=== PATIENT | female | born 1945 | race Caucasian/White ===

== ENCOUNTER 2016-08-30 00:55 | Inpatient (IN) | payer OTHER ==
[2016-08-30] VITALS (9 sets, daily range): BP systolic 148–223; BP diastolic 47–78; PULSE 67–88; TEMP 36.5–36.7; O2SAT 94–97; BMI 44.4
[~2016-08-30] VITALS: Ht 162.6 cm; Wt 122.2 kg
[~2016-08-30 00:55] MED LIST: AMLO10TA4 PO; APR50 PO; ASPI325T45 PO; CRG125 PO; FENO145T26 PO; FURO40TA3 PO; HYDR-5688 PO; MCRB100 PO; MISCCAP69 PO; SENN-65 PO; SERT50TA PO
[2016-08-30] MEDS ORDERED: SODIUM CHLORIDE 0.9% 1000ML 1,000 ML IV ONE ×2 (01:15→05:15)
[2016-08-30 01:37] LABS: BASO % 0.2 %; BASO ABS # 0.02 K/uL (0-0.2); COMPLETE YES; EOS % 1.5 %; HEMATOCRIT 35.2 % (37-47); IG% 0.4 %; LYMPH % 31.1 %; LYMPH ABS # 3.23 K/uL (1.2-3.4); MEAN CORPUSCULAR HEMOGLOBIN 29.4 pg (25-34); MEAN CORPUSCULAR HGB CONC 34.9 g/dl (32-36); MONO % 12.4 %; NEUT % 54.4 %; PLATELET COUNT 277 K/uL (130-400); RED BLOOD COUNT 4.19 M/uL (4.2-5.4)
[2016-08-30 01:45] LABS: INR 1.1 (0.9-1.1); PARTIAL THROMBOPLASTIN RATIO 0.9; PROTHROMBIN TIME (PATIENT) 11.9 SECONDS (9.0-12.0)
[2016-08-30 01:48] LABS: URINE APPEARANCE CLEAR (CLEAR); URINE BILIRUBIN NEG (NEG); URINE COLOR YELLOW; URINE NITRITE NEG (NEG); URINE SPECIFIC GRAVITY 1.008 (1.000-1.030); UROBILINOGEN NEG (NEG); ZZURINE CULT IF INDIC CATH YES
[2016-08-30 01:49] LABS: MANUAL MICROSCOPIC REQUIRED? NO; REVIEW REQ? NO
[2016-08-30 01:54] LABS: CALCIUM 11.7 mg/dl (8.5-10.1); MAGNESIUM 1.6 mg/dl (1.8-2.4); POTASSIUM 3.1 mmol/L (3.5-5.1)
[2016-08-30 01:59] LABS: ALB/GLOB RATIO 0.8 (0.9-2)
[2016-08-30] MEDS ORDERED: PIPERACILLIN/TAZOBACTAM 4.5 GM/100ML D5W IV STA (02:06)
[2016-08-30] MEDS ORDERED: DAPTOMYCIN IV SCH (02:15)
[2016-08-30] MEDS ORDERED: SODIUM CHLORIDE 0.9% IV SCH (02:15)
--- NOTE | 2016-08-30 02:20 | EMERGENCY ROOM VISIT NOTE ---
ED Visit Note First contact with patient: 00:59 I saw this patient in conjunction with Abe Jimenez PA-C. I agree with his decision-making and treatment plan.
[2016-08-30] MEDS ORDERED: POTASSIUM CHLORIDE 10 MEQ TABCR PO STA (02:41)
[2016-08-30] MEDS ORDERED: GLUCOSE 40% GEL 15 GM TUBE PO PRN (03:30)
[2016-08-30] MEDS ORDERED: NITROGLYCERIN 0.4 MG SL PER TAB CHARGE SL PRN (03:30)
[2016-08-30] MEDS ORDERED: GLUCOSE 10 TABS/TUBE PO PRN (03:30)
[2016-08-30] MEDS ORDERED: ACETAMINOPHEN 325 MG TAB PO PRN (03:30)
[2016-08-30] MEDS ORDERED: GLUCAGON FOR INJ 1 MG VIAL SQ PRN (03:30)
[2016-08-30] MEDS ORDERED: DEXTROSE 50% 50 ML SYR IV PRN (03:30)
[2016-08-30] MEDS ORDERED: HYDROmorphone INJ 1 MG/ML SYR IV PRN (03:30)
[2016-08-30] MEDS ORDERED: PIPERACILL/TAZOBAC CONSULT ACTIVE PRN (03:45)
[2016-08-30 04:00] LABS: BUN/CREATININE RATIO 15.8 (10-20); CALCIUM 11.8 mg/dl (8.5-10.1); CREATININE 1.9 mg/dl (0.60-1.20); POTASSIUM 3.1 mmol/L (3.5-5.1)
[2016-08-30 04:15] LABS: PHOSPHORUS 2.3 mg/dl (2.5-4.9); THYROID STIMULATING HORMONE 0.217 uIu/ml (0.300-4.500)
[2016-08-30] MEDS ORDERED: MAGNESIUM SULFATE 1GM / D5W 1 GM in PREMIXED IN D5W 100 ML IV STA (04:57)
[2016-08-30] MEDS: HEPARIN SOD 5000 UNIT/0.5 ML CARP SQ SCH ×3 (05:39→21:45)
[2016-08-30] MEDS ORDERED: POTASSIUM CHLORIDE 10 MEQ TABCR PO ONE (06:00)
[2016-08-30] MEDS ORDERED: INSULIN GLARGINE PER UNIT 5 UNITS in SYRINGE 0 ML SC ONE (06:14)
[2016-08-30] MEDS ORDERED: INSULIN GLARGINE SOLOSTAR 100 UNITS/ML 3 ML PEN SC STA (06:26)
[2016-08-30] MEDS ORDERED: CARVEDILOL 12.5 MG TAB PO ONE (06:47)
[2016-08-30] MEDS: CLONIDINE HCL 0.1 MG TAB PO SCH ×2 (06:48→21:33)
--- NOTE | 2016-08-30 07:47 | DIAGNOSTIC IMAGING REPORT ---
CT SCAN OF THE BRAIN WITHOUT IV CONTRAST CLINICAL HISTORY: Change in mental status. COMPARISON STUDY: CT of the brain dated 05/25/2015. TECHNIQUE: Unenhanced axial CT scan of the brain is performed from the vertex to the skull base. CT DOSE: 537.48 mGy.cm FINDINGS: Brain parenchyma: There are age-related involutional changes noting mild subcortical and periventricular microangiopathic change. There is no hemorrhage, mass effect, or evidence of acute territorial ischemia by CT criteria. Mineralization is noted in the basal ganglia. Palomares-white matter is preserved. No extra-axial fluid collection is seen. Ventricles, sulci, cisterns: Prominent secondary to involutional change. Intracranial vasculature: There is atherosclerotic calcification of the cavernous carotid arteries. Calvarium: Unremarkable. Sinuses and mastoids: The visualized paranasal sinuses are clear. There is trace fluid within the mastoid air cells. Orbits: The bony orbits are grossly intact. There are bilateral ocular lens implants. IMPRESSION: There is no hemorrhage, mass effect, or evidence of acute territorial ischemia by CT criteria. Electronically signed by: Scott Tello M.D. 08/30/2016 7:45 AM
[2016-08-30] MEDS ORDERED: HydrALAZINE HCL 20 MG/ML VIAL IV. ONE (08:15)
[2016-08-30] MEDS: INSULIN ASPART 100 UNITS/ML 3 ML PEN SC SCH ×4 (08:43→21:00)
--- NOTE | 2016-08-30 08:43 | DIAGNOSTIC IMAGING REPORT ---
SINGLE VIEW CHEST CLINICAL HISTORY: Sepsis. Confusion and lethargy. FINDINGS: An AP, portable, upright chest radiograph is compared to study dated 12/21/2015. The examination is degraded by portable technique and large body habitus. The heart is top normal for projection. There is atherosclerotic calcification of the thoracic aorta. Chronic residual thickening is unchanged. There are low lung volumes. Airspace opacities are present at both lung bases. No large pleural effusion Or pneumothorax is seen. The skeletal structures are osteopenic. The bony thorax is grossly intact. Degenerative change is noted throughout the thoracic spine and in the shoulders. Cholecystectomy clips are noted in the right upper quadrant. IMPRESSION: 1. Low lung volumes. 2. There are bibasilar airspace opacities. These are nonspecific and could represent atelectasis, aspiration pneumonitis, and/or developing pneumonia. Clinical correlation will be required. Electronically signed by: Scott Tello M.D. 08/30/2016 8:41 AM
[2016-08-30] MEDS: ASPIRIN 325 MG ECTAB PO SCH (08:45)
[2016-08-30] MEDS: PANTOprazole SOD 40 MG TAB PO SCH (08:46)
[2016-08-30] MEDS: SERTRALINE HCL 50 MG TAB PO SCH (08:46)
[2016-08-30] MEDS: PIPERACILL/TAZOBAC IV 4.5 GM in DEXTROSE 5% 100ML IV SCH ×3 (08:49→23:45)
[2016-08-30 09:00] LABS: BUN/CREATININE RATIO 16.4 (10-20); CREATININE 1.8 mg/dl (0.60-1.20); POTASSIUM 3.5 mmol/L (3.5-5.1)
[2016-08-30] MEDS ORDERED: CARVEDILOL 12.5 MG TAB PO SCH (09:00)
[2016-08-30] MEDS ORDERED: AMLODIPINE BESYLATE 5 MG TAB PO SCH (09:00)
--- NOTE | 2016-08-30 09:08 | HISTORY & PHYSICAL EXAMINATION ---
DATE OF ADMISSION: 08/30/2016 PRIMARY CARE PHYSICIAN: Dr. Marin. Hx obtained from px and records. CHIEF COMPLAINT: Sick as per px confusion as per family. HISTORY OF PRESENT ILLNESS: Medical history significant for hypertension, DM2, insulin requiring, CRI (baseline creatinine 1.7-1.9) history of ESBL, enterococcus E. coli, chronic anemia (baseline hemoglobin 10), mood/anxiety disorder, legal blindess as per records. Recent confinement 03/2016 for E.coli/enterococcus UTI. Patient completed Zosyn treatment as per ID recs. The last few days, the patient had not been feeling well, had a GI bug, symptoms improving. Patient noted by sister to be confused, not very responsive, poor appetite. Patient admits to having bladder discomfort, symptoms of a UTI. At the Emergency Room, sodium noted to be 124. NSS given. Patient received Zosyn for UTI. Patient's mentation much improved as per sister. MEDICAL HISTORY: As above. SURGERIES: Hysterectomy, cholecystectomy, hernia repair, section. HOME MEDICATIONS: Include Nexium, Flonase, Lasix, Tricor, gabapentin, Neurontin, Vicodin, Lantus, Humalog, Nitrostat, Crestor, Zoloft, Norvasc, aspirin, vitamin D3, Catapres, Klonopin. ALLERGIES: SUDAFED, LORATADINE, METFORMIN, STATIN, BIGUANIDES, SULFA. FAMILY HISTORY: Nye's chorea, heart disease, diabetes. PERSONAL AND SOCIAL HISTORY: Nonsmoker, no chronic intake of alcoholic beverages. Lives with sister. REVIEW OF SYSTEMS: As per HPI, all other ROS negative. PHYSICAL EXAMINATION: VITAL SIGNS: Blood pressure was noted to be 234/121, later 180/90, pulse rate 72, RR 14, temperature 36.7, sats 94 on room air. GENERAL: Noted to be obese, oriented to year, coherent. no respiratory distress. SKIN pallor HEENT: Pale palpebrae conjunctivae. Dry mucosa. NECK: Short neck. LUNGS: Decreased breath sounds. HEART: Regular rate and rhythm. ABDOMEN: Some distention, nontender. EXTREMITIES: Bilateral lower extremity edema no edema. NEUROLOGIC: Coherent but lethargic LABORATORIES: Hemoglobin was noted to be 12.3, white cells 10.4, platelets 277. Sodium noted to be 124, potassium 3.9, creatinine 2, glucose 206, calcium 11.7, troponin 0.18. CT head, no acute pathology. UA, small WBCs, positive hyaline cast noted. Chest x-ray, atelectasis. EKG rate 90, normal sinus rhythm, right axis deviation, incomplete right bundle branch block. ASSESSMENT: 1. Encephalopathy multifactorial : Hyponatremia, hypokalemia, hypercalcemia ARF on CRI secondary to clinical dehydration symptomatic urinary tract infection/cystitis. No sepsis. (hx Zosyn sensitive ESBL E coli/Enterococcus) - no sepsis. Hypertensive urgency secondary to illness, possible missed medications. home neuropsycho-tropic meds contributory 2. DM2, insulin requiring, well controlled as of recent outpx HgA1c. 3. Troponinemia, secondary to HTN urgency, kidney dysfunction px denies cp, sob No acute coronary syndrome. PLAN: PCU. Careful correction of sodium w/ gentle NSS hydration. Hyponatremia workup. appropriate to hold home diuretics for now. Nephrology consult, hyponatremia, hypercalcemia. replace K ff lytes ff urine CS, Zosyn for now facilitate home BP meds, ff trop ISS BG goal 140-180, appropriate to decrease basal lantus given poor appetite and kidney dysfunction for now px due for HgA1c recheck PT, OT eval. Full code. MTDD
[2016-08-30 11:21] LABS: BUN/CREATININE RATIO 14.9 (10-20); CALCIUM 10.7 mg/dl (8.5-10.1); CREATININE 1.8 mg/dl (0.60-1.20); POTASSIUM 3.6 mmol/L (3.5-5.1)
[2016-08-30] MEDS: SODIUM CHLORIDE 0.9% 1000ML 1,000 ML IV SCH ×2 (13:04→21:35)
[2016-08-30] MEDS ORDERED: AMLODIPINE BESYLATE 5 MG TAB PO ONE (13:15)
[2016-08-30 13:17] LABS: BUN/CREATININE RATIO 15.1 (10-20); CALCIUM 10.6 mg/dl (8.5-10.1); CREATININE 1.8 mg/dl (0.60-1.20); POTASSIUM 3.8 mmol/L (3.5-5.1)
--- NOTE | 2016-08-30 13:18 | Progress Note ---
Medicine Progress Note Date & Time of Visit: Aug 30, 2016 at 11:36. Subjective Pt is not complaining of pain or nausea Tolerating clear liquids Objective Last 8 Hrs Date Time Temp Pulse Resp B/P Pulse Ox O2 Delivery O2 Flow Rate FiO2 08/30/16 08:00 Room Air 08/30/16 07:28 36.5 88 12 187/75 97 Room Air 08/30/16 06:45 88 189/69 08/30/16 04:07 36.7 81 22 223/65 Room Air 08/30/16 04:00 36.7 76 35 184/130 95 Physical Exam: GEN: obese, does not appear distressed, appears fatigued, speaking lowly but wakes up and is alert and appropriate when prompted HEENT: NC/AT, PERRL, normal sclerae CARDIO: reg rate, S1/2 heard without m/g/r LUNGS: CTA bilaterally, no crackles, rales or wheezes, good diaphragmatic excursion ABD: soft, non-tender, non-distended, no rebound or guarding,BS-hypoactive EXTREMITY: RP and DP palpable 2+ bilat, no LE swelling or edema, extremities are warm and well-perfused NEURO: appears appropriate but is limited exam 2/2 excessive fatigue MUSC: generalized weakness, cannot assess for focal deficits 2/2 excessive fatigue SKIN: warm and dry Laboratory Results: Last 24 Hours Test 08/30/16 01:20 08/30/16 01:21 08/30/16 01:26 08/30/16 01:37 White Blood Count 10.40 K/uL Red Blood Count 4.19 M/uL Hemoglobin 12.3 g/dL Hematocrit 35.2 % Mean Corpuscular Volume 84.0 fL Mean Corpuscular Hemoglobin 29.4 pg Mean Corpuscular Hemoglobin Concent 34.9 g/dl Platelet Count 277 K/uL Mean Platelet Volume 10.0 fL Neutrophils (%) (Auto) 54.4 % Lymphocytes (%) (Auto) 31.1 % Monocytes (%) (Auto) 12.4 % Eosinophils (%) (Auto) 1.5 % Basophils (%) (Auto) 0.2 % Neutrophils # (Auto) 5.66 K/uL Lymphocytes # (Auto) 3.23 K/uL Monocytes # (Auto) 1.29 K/uL Eosinophils # (Auto) 0.16 K/uL Basophils # (Auto) 0.02 K/uL RDW Standard Deviation 39.9 fL RDW Coefficient of Variation 13.1 % Immature Granulocyte % (Auto) 0.4 % Immature Granulocyte # (Auto) 0.04 K/uL Prothrombin Time 11.9 SECONDS Prothromb Time International Ratio 1.1 Activated Partial Thromboplast Time 22.3 SECONDS Partial Thromboplastin Ratio 0.9 Sodium Level 124 mmol/L Potassium Level 3.1 mmol/L Chloride Level 78 mmol/L Carbon Dioxide Level 37 mmol/L Anion Gap 9.0 mmol/L Blood Urea Nitrogen 30 mg/dl Creatinine 2.00 mg/dl Est Creatinine Clear Calc Drug Dose 33.5 ml/min Estimated GFR () 28.4 Estimated GFR (Non- 24.5 BUN/Creatinine Ratio 15.0 Random Glucose 206 mg/dl Calcium Level 11.7 mg/dl Magnesium Level 1.6 mg/dl Total Bilirubin 0.8 mg/dl Aspartate Amino Transf (AST/SGOT) 60 U/L Alanine Aminotransferase (ALT/SGPT) 30 U/L Alkaline Phosphatase 47 U/L Total Creatine Kinase 171 U/L Creatine Kinase MB 6.9 ng/ml Creatine Kinase MB Ratio 4.0 Pro-B-Type Natriuretic Peptide 4628 pg/ml Total Protein 6.9 gm/dl Albumin 3.1 gm/dl Globulin 3.8 gm/dl Albumin/Globulin Ratio 0.8 Lipase 166 U/L Bedside Lactic Acid Venous 1.97 mmol/L Bedside Troponin I 0.180 ng/ml Urine Color YELLOW Urine Appearance CLEAR Urine pH 5.0 Urine Specific [place] 1.008 Urine Protein NEG Urine Glucose (UA) NEG Urine Ketones NEG Urine Occult Blood NEG Urine Nitrite NEG Urine Bilirubin NEG Urine Urobilinogen NEG Urine Leukocyte Esterase SMALL Urine WBC (Auto) 5-10 /hpf Urine RBC (Auto) 0-4 /hpf Urine Hyaline Casts (Auto) 1-5 /lpf Urine Epithelial Cells (Auto) 10-20 /lpf Urine Bacteria (Auto) 4+ Urine Osmolality 292 mOms/kg Urine Random Sodium 17 mEq/L Test 08/30/16 03:34 08/30/16 03:37 08/30/16 06:57 08/30/16 08:20 Sodium Level 124 mmol/L 127 mmol/L Potassium Level 3.1 mmol/L 3.5 mmol/L Chloride Level 79 mmol/L 83 mmol/L Carbon Dioxide Level 37 mmol/L 34 mmol/L Anion Gap 8.0 mmol/L 10.0 mmol/L Blood Urea Nitrogen 30 mg/dl 30 mg/dl Creatinine 1.90 mg/dl 1.80 mg/dl Est Creatinine Clear Calc Drug Dose 35.2 ml/min 36.1 ml/min Estimated GFR () 30.2 32.3 Estimated GFR (Non- 26.1 27.8 BUN/Creatinine Ratio 15.8 16.4 Random Glucose 218 mg/dl 211 mg/dl Osmolality 280 mOsm/kg Lactic Acid Level 1.6 mmol/L Calcium Level 11.8 mg/dl 11.0 mg/dl Phosphorus Level 2.3 mg/dl Troponin I 0.277 ng/ml 0.324 ng/ml Thyroid Stimulating Hormone (TSH) 0.217 uIu/ml Free Thyroxine 1.52 ng/dl Parathyroid Hormone (Intact) < 5.5 pg/mL Total Triiodothyronine 0.76 ng/ml Bedside Glucose 224 mg/dl Test 08/30/16 10:28 Sodium Level 127 mmol/L Potassium Level 3.6 mmol/L Chloride Level 85 mmol/L Carbon Dioxide Level 35 mmol/L Anion Gap 7.0 mmol/L Blood Urea Nitrogen 27 mg/dl Creatinine 1.80 mg/dl Est Creatinine Clear Calc Drug Dose 36.1 ml/min Estimated GFR () 32.3 Estimated GFR (Non- 27.8 BUN/Creatinine Ratio 14.9 Random Glucose 182 mg/dl Calcium Level 10.7 mg/dl Date/Time Source Procedure Growth Status 08/30/16 01:20 Blood Blood Culture Pending Received 08/30/16 01:15 Blood Blood Culture Pending Received 08/30/16 01:09 Stool C.difficile Toxin B Gene (PCR) Pending [facility] Batch 08/30/16 01:09 Stool Shiga Toxin Test Pending [facility] Batch 08/30/16 01:09 Stool Stool Culture Pending [facility] Batch 08/30/16 01:37 Urine,Catheterized Urine Culture Pending Received Assessment & Plan 1. Encephalopathy-improving with positive trend in lytes. Na to 130, K normal and Ca 10.1. Creat is still 1.8 but will cont IVF while PO intake is lower than normal symptomatic urinary tract infection/cystitis. No sepsis. (hx Zosyn sensitive ESBL E coli/Enterococcus) (at 1100): -continuing to trend sodium q2 this morning and up to 127 currently -CXR reveals some poss atelectasis versus pneumonia, however, she denes fevers, chills or cough recently 2. Hypercalcemia-improved with IVF 3. Hypotonic hypovolemic hyponatremia 2/2 recent GI losses and poor PO intake, cont to hold home Lasix and metolazone. Cont IVF 4. ARF 2/2 dehydration-already improving with IVF administration 5. UTI- covered with Zosyn for now; awaiting culture results. Pt is lethargic and history is difficult to get from her although when she does decide to answer she appears appropriate 6. DMII-ISS/Lantus 5 Units BID 7. Hypertroponemia likely 2/2 hypertensive heart disease vs kidney dysfunction in setting of elevated BP and severe dehydration-TTE pending. Pt is currently denying any symptoms of chest pain or shortness of breath. EKG reveals SR 75 8. HTN-gave home meds today, however, Norvasc dose is actually 10mg PO daily. Will give additional 5mg now and 10mg daily. Gave IV hydralazine 10 this morning without much change in pressure. Cont to monitor. Nutrition-clears (low salt, low sugar) for now and she is tolerating this Aspiration precautions DVT prophy-heparin 5K q8 PT, OT eval. Full code. Dispo-cont tele DO [facility] Current Inpatient Medications: Current Inpatient Medications Medications (Trade) Dose Ordered Sig/Hansel Route Start Time Stop Time Status Last Admin Dose Admin Heparin Sodium (Porcine) (Heparin Sq 5000 Unit/0.5ml) 5,000 unit Q8 SQ 08/30/16 06:00 09/29/16 05:59 08/30/16 05:39 5,000 UNIT Acetaminophen (Tylenol Tab) 650 mg Q4H PRN PO 08/30/16 03:30 09/29/16 03:29 Nitroglycerin (Nitrostat Tab) 0.4 mg UD PRN SL 08/30/16 03:30 09/29/16 03:29 Insulin Aspart (novoLOG ASPART) SLIDING SCALE If C... ACHS SC 08/30/16 07:00 08/30/16 11:31 1 UNITS Glucose (Glucose 40% Gel) 15-30 GRAMS 15 GRAMS... UD PRN PO 08/30/16 03:30 09/29/16 03:29 Glucose (Glucose Chew Tab) 4-8 Tablets 4 Tabl... UD PRN PO 08/30/16 03:30 09/29/16 03:29 Dextrose (Dextrose 50% 50ML Syringe) 25-50ML OF 50% DW IV FOR... UD PRN IV 08/30/16 03:30 09/29/16 03:29 Glucagon (Glucagon Inj) 1 mg UD PRN SQ 08/30/16 03:30 09/29/16 03:29 Hydromorphone HCl (Dilaudid Inj) 0.5 mg Q3H PRN IV 08/30/16 03:30 09/13/16 03:29 Ondansetron HCl (Zofran Inj) 4 mg Q6H PRN IV 08/30/16 03:30 09/29/16 03:29 Amlodipine Besylate (Norvasc Tab) 5 mg DAILY PO 08/30/16 09:00 09/29/16 08:59 08/30/16 08:45 5 MG Aspirin (Ecotrin Tab) 325 mg DAILY PO 08/30/16 09:00 09/29/16 08:59 08/30/16 08:45 325 MG Hydralazine HCl (Apresoline Tab) 50 mg TID PO 08/30/16 09:00 09/29/16 08:59 08/30/16 06:48 50 MG Sertraline HCl (Zoloft Tab) 50 mg DAILY PO 08/30/16 09:00 09/29/16 08:59 08/30/16 08:46 50 MG Pantoprazole Sodium (Protonix Tab) 40 mg DAILY PO 08/30/16 09:00 09/29/16 08:59 08/30/16 08:46 40 MG Miscellaneous Information (Order Awaiting Action) 1 ea QS N/A 08/30/16 08:00 09/29/16 07:59 Clonidine HCl (Catapres Tab) 0.2 mg BID PO 08/30/16 09:00 09/29/16 08:59 08/30/16 06:48 0.2 MG Piperacillin Sod/ Tazobactam Sod 1 ea 1 ea UD PRN N/A 08/30/16 03:45 09/29/16 03:44 Piperacillin Sod/ Tazobactam Sod/ Dextrose (Zosyn Iv/D5 100ml) 120 ml @ 30 mls/hr Q8H IV 08/30/16 07:30 09/09/16 07:29 08/30/16 08:49 30 MLS/HR Insulin Glargine (Lantus Solostar Pen) 5 unit BID SC 08/30/16 21:00 09/29/16 20:59 Carvedilol 12.5 mg 12.5 mg BID PO 08/30/16 21:00 09/29/16 20:59 Sodium Chloride (Nss 1000ml) 1,000 ml @ 100 mls/hr Q10H IV 08/30/16 11:30 09/29/16 11:29 UNV
--- NOTE | 2016-08-30 15:41 | NEPHROLOGY CONSULTATION ---
DATE OF CONSULTATION: 08/30/2016 REASON FOR CONSULT: Hyponatremia, hypercalcemia and acute renal failure. HISTORY OF PRESENT ILLNESS: The patient is a 71-year-old female who was brought to the hospital by her family because she looked sick, very weak and confused. For the last few days, the patient has not been feeling well. She had gastroenteritis and was having some nausea, poor appetite and some diarrhea. She was also having symptoms of urinary tract infection. In the Emergency Department workup, she was noted to have a serum sodium of 124 and a serum calcium of 11.8 and a creatinine of 2.0. At baseline, she has slightly abnormal creatinine of baseline around 1.7. Her troponin was also mildly elevated. She was presumed to have urinary tract infection. The culture report is not back yet, but the urinalysis does show possible urinary tract infection. Since admission, she has received normal saline at 100 mL per hour. With that, serum sodium has gone up from 124 to the most recent reading of 127. At home, the patient was getting Lasix, but I am not 100% certain about the dose she was getting. There is also mention in the chart that she was on metolazone; however, I could not confirm the dose of either diuretics. The patient is not able to give me any history at all at this time and there was no family member at the bedside. She was also taking Zoloft and vitamin D with calcium. ALLERGIES: SUDAFED, LORATADINE, METFORMIN, STATIN, BIGUANIDES AND SULFA. FAMILY HISTORY: Positive for Sania chorea, heart disease, diabetes. PERSONAL AND SOCIAL HISTORY: Nonsmoker, no alcohol. She lives with her sister. REVIEW OF SYSTEMS: Unable to obtain as the patient is not answering any questions. PHYSICAL EXAMINATION: GENERAL: She has her eyes closed during the entire examination. The patient does not appear to be in any respiratory distress, lying down flat in the bed. VITAL SIGNS: Blood pressure 174/51, 96% on room air, temperature 36.7, pulse rate 70 per minute. HEENT: Mucous membranes are moist. NECK: Supple and obese. LUNGS: Decreased breath sounds, but this is more because of lack of inspiratory effort. CARDIOVASCULAR: Regular rate and rhythm. Distant heart sounds. ABDOMEN: Soft, nontender, obese. EXTREMITIES: Shows bilateral lower extremity edema about 1+ but appears more related with obesity. NEUROLOGIC: She did not answer my questions. She had her eyes closed despite calling her by name multiple times. I did not exert any painful stimulus though. LABORATORY TESTS: Most recent blood work shows a serum sodium of 127, potassium 3.8, BUN 27, creatinine 1.8, calcium 10.6. At the time of admission, serum sodium was 124, serum osmolality was 280, calcium was 11.7, creatinine was 2.0. Urinalysis shows possible urinary tract infection. Urine osmolality was 292. Urine sodium 17. IMAGING DATA: X-ray of the chest shows low lung volumes, quality of the x-ray was very poor, essentially useless. CT head unremarkable. ASSESSMENT AND PLAN: A 71-year-old female admitted with encephalopathy of unclear etiology and I was consulted for hyponatremia, hypercalcemia and acute renal failure. 1. Acute renal failure. This appeared to be prerenal in etiology secondary to her recent gastrointestinal illness as well as urinary tract infection. She is getting better with the use of IV fluid. This essentially proved the etiology was prerenal and no further workup is needed from the renal standpoint. She does have baseline chronic kidney disease stage III to stage IV and her creatinine is now essentially back to baseline. 2. Hypercalcemia. She had a serum calcium of 11.8, but with just normal saline it is down to 10.6. She was taking calcium and vitamin D as an outpatient, which I would stop. Her PTH was very well suppressed and the level was less than 5, which again proves that she really should not be on vitamin D and calcium as an outpatient, as the hypercalcemia is significantly more harmful than slightly low vitamin D. 3. Hyponatremia. Serum sodium has gone up slightly from 124-127 with use of normal saline; however, it is not going further, the last 3 serum sodium is essentially the same at 127. Her blood pressure was high from the time of admission and it is still high. I am not sure that she is really that volume depleted. I would like to see a few more BMP readings. If her serum sodium does not go higher than 127, I would use saline as well as Lasix. For the time being, I would continue with the normal saline as is being done. She is getting normal saline at 100 mL per hour. Urine osmolality was 292, which is somewhat inappropriate in the setting of low serum sodium. It is quite possible that she has some combination of true hypovolemic hyponatremia with some component of syndrome of inappropriate antidiuretic hormone. For the time being, I would continue to hold the p.o. Lasix and metolazone. The rate of correction of serum sodium so far is appropriate. We are going to aim to correct at a rate of 8-10 mEq per day. MTDD
[2016-08-30 16:46] LABS: BUN/CREATININE RATIO 15.2 (10-20); CALCIUM 10.4 mg/dl (8.5-10.1); CREATININE 1.8 mg/dl (0.60-1.20); POTASSIUM 3.8 mmol/L (3.5-5.1)
[2016-08-30 20:30] LABS: BUN/CREATININE RATIO 16.2 (10-20); CALCIUM 10.1 mg/dl (8.5-10.1); CREATININE 1.8 mg/dl (0.60-1.20); POTASSIUM 3.7 mmol/L (3.5-5.1)
[2016-08-30] MEDS ORDERED: INSULIN GLARGINE PER UNIT 5 UNITS in SYRINGE 0 ML SC SCH (21:00)
[2016-08-30] MEDS: CARVEDILOL 12.5 MG TAB PO SCH (21:34)
[2016-08-30] MEDS: INSULIN GLARGINE SOLOSTAR 100 UNITS/ML 3 ML PEN SC SCH (21:34)
--- NOTE | 2016-08-30 21:51 | EMERGENCY ROOM VISIT NOTE ---
History First contact with patient: 00:59 Chief Complaint: CONFUSION Stated Complaint: HYPONATREMIA Nursing Triage Summary: ems report c/o confusion, lethargy, decreased appetite History of Present Illness The patient is a 71 year old female who presents to the Emergency Room for evaluation of confusion and lethargy. The patient is accompanied by her sister who is the primary historian. The patient has had a GI bug the past 3-4 days, and has not been eating well. The patient was able to have normal conversations yesterday, however today she is very abnormal for her. She believes her birthday was 1971. She is unsure where she lives. She is not able to answers questions well. The patient has a history of diabetes, hypertension, and multidrug resistant UTI. The patient herself does not have complaints, but again she is confused. Review of Systems More than 10 systems were reviewed and otherwise negative with the exception of history of present illness. Past Medical/Surgical History Medical Problems: (1) Adjustment disorder (2) GERD (gastroesophageal reflux disease) (3) HLD (hyperlipidemia) (4) Hypertension (5) Hypertensive heart disease (6) Hyponatremia (7) IBS (irritable bowel syndrome) (8) Insulin dependent diabetes mellitus (9) Morbid obesity (10) UTI (urinary tract infection) Surgical Problems: (1) H/O hernia repair (2) H/O: (3) H/O: hysterectomy (4) S/P cholecystectomy Family History Diabetes mellitus Social History Smoking Status: Never Smoker Alcohol Use: occasionally Drug Use: none Marital Status: Housing Status: lives alone Occupation Status: unemployed Current/Historical Medications Scheduled Amlodipine Besylate (Norvasc), 5 MG PO DAILY Aspirin (Aspirin), 325 MG PO DAILY Carvedilol (Carvedilol), 12.5 MG PO BID Cholecalciferol (Vitamin D), 1,000 INTER.UNIT PO DAILY Clonazepam (Klonopin), 1 MG PO HS Clonidine Hcl (Catapres), 0.2 MG PO BID Esomeprazole Magnesium (Nexium), 40 MG PO DAILY Fenofibrate (Tricor ), 145 MG PO DAILY Fluticasone Propionate (Nasal) (Flonase), 2 SPRAYS ANSELMO DAILY Gabapentin (Neurontin *), 600 MG PO Q12 Gabapentin (Neurontin), 300 MG PO midday Hydralazine HCl (Hydralazine HCl), 50 MG PO TID Insulin Glargine (Lantus Solostar Pen), 24 UNIT SQ HS Misc Natural Products (Lutein Vision Blend), 1 CAP PO DAILY Nitrofurantoin Monohyd Macrocr (Nitrofurantoin Monohydrat), 100 MG PO BID Rosuvastatin Calcium (Crestor *), 40 MG PO DAILY Sertraline (Zoloft), 1 TAB PO DAILY Scheduled PRN Antipyrine-Benzocaine (Antipyrine/Benzocaine), 2 DROPS OPR QID PRN for ear pain Furosemide (Lasix), 1 TAB PO for fluid Hydrocodone/Acetaminophen 5MG/325MG ([place] 5MG/325MG), 2 TABLETS PO BID PRN for Pain Nitroglycerin (Nitrostat), 0.4 MG UT UD PRN for Chest Pain Senna/Docusate Sod (Senokot S), 2 TAB PO HS PRN Miscellaneous Medications Insulin Lispro (Human) (Humalog Kwikpen) Allergies Coded Allergies: Metformin (Verified Allergy, Intermediate, causes kidney problems, 08/30/16) Biguanides (Verified Allergy, Unknown, UNSURE, 08/30/16) PATIENT UNSURE IF AN ALLERGY Loratadine (Verified Allergy, Unknown, unsure, 08/30/16) patient unsure if this is an allergy Pseudoephedrine (Unverified Allergy, Unknown, UNKNOWN, 08/30/16) UNSURE IF AN ALLERGY HMG-CoA-R Inhibitors (Verified Adverse Reaction, Mild, GI UPSET, 08/30/16) ? GI UPSET PER DR PATEL Sulfa Antibiotics (Verified Adverse Reaction, Unknown, NAUSEA, 08/30/16) Physical Exam Vital Signs Date Time Temp Pulse Resp B/P Pulse Ox O2 Delivery O2 Flow Rate FiO2 08/30/16 20:00 Room Air 08/30/16 19:14 36.7 73 20 148/78 95 Room Air 08/30/16 16:00 Room Air 08/30/16 15:35 36.7 67 16 169/52 94 Room Air 08/30/16 14:37 172/47 08/30/16 12:03 174/51 08/30/16 12:00 Room Air 08/30/16 11:42 36.7 70 12 174/59 96 Room Air 08/30/16 08:00 Room Air 08/30/16 07:28 36.5 88 12 187/75 97 Room Air 08/30/16 06:45 88 189/69 08/30/16 04:07 36.7 81 22 223/65 Room Air 08/30/16 04:00 36.7 76 35 184/130 95 08/30/16 03:35 76 35 95 08/30/16 03:30 79 14 95 08/30/16 03:29 184/130 08/30/16 03:25 78 13 94 08/30/16 03:20 79 16 97 08/30/16 03:15 75 13 96 08/30/16 03:10 77 20 96 08/30/16 03:05 79 18 98 08/30/16 03:00 68 16 95 08/30/16 02:59 158/56 08/30/16 02:55 68 16 94 08/30/16 02:50 69 22 96 08/30/16 02:45 69 17 91 08/30/16 02:40 71 31 95 08/30/16 02:35 71 25 95 08/30/16 02:33 73 16 151/96 95 Room Air 08/30/16 02:30 76 15 151/96 97 08/30/16 02:10 60 40 93 08/30/16 02:05 59 40 92 08/30/16 02:00 62 33 93 08/30/16 01:59 189/65 08/30/16 01:55 61 30 93 08/30/16 01:50 62 28 93 08/30/16 01:45 66 26 92 08/30/16 01:40 67 27 94 08/30/16 01:35 73 16 97 08/30/16 01:30 72 14 96 08/30/16 01:29 181/89 08/30/16 01:25 68 13 94 08/30/16 01:20 68 16 98 08/30/16 01:19 68 08/30/16 01:15 69 17 92 08/30/16 01:10 69 14 94 08/30/16 01:05 95 Room Air 08/30/16 01:05 36.7 69 16 214/70 96 Room Air 08/30/16 01:05 70 16 94 08/30/16 01:02 214/70 08/30/16 01:00 234/121 Pain Rating (0-10): 0 Physical Exam VITALS: Vitals are noted on the nurse's note and reviewed by myself. Vital signs with notable hypertension GENERAL: Confused appearing female who is pleasant and fairly cooperative. HEAD: Normocephalic atraumatic. HEART: Regular rate and rhythm without murmurs gallops or rubs. LUNGS: Clear to auscultation bilaterally without wheezes, rales or rhonchi. No retractions or accessory muscle use. ABDOMEN: Positive normal bowel sounds x 4. Soft, nontender, without masses or organomegaly. No guarding or rebound tenderness. MUSCULOSKELETAL: Diffuse upper and lower extremity edema which appears chronic. There is a small area of erythema over the right anterior tibia without obvious abscess. Patient is able to spontaneously move her extremities. NEURO: Patient was not alert. She appears confused, but pleasant. She has difficulty answering simple questions. Medical Decision & Procedures ER Provider Diagnostic Interpretation: CT SCAN OF THE BRAIN WITHOUT IV CONTRAST CLINICAL HISTORY: Change in mental status. COMPARISON STUDY: CT of the brain dated 05/25/2015. TECHNIQUE: Unenhanced axial CT scan of the brain is performed from the vertex to the skull base. CT DOSE: 537.48 mGy.cm FINDINGS: Brain parenchyma: There are age-related involutional changes noting mild subcortical and periventricular microangiopathic change. There is no hemorrhage, mass effect, or evidence of acute territorial ischemia by CT criteria. Mineralization is noted in the basal ganglia. [place]oma[place]-white matter is preserved. No extra-axial fluid collection is seen. Ventricles, sulci, cisterns: Prominent secondary to involutional change. Intracranial vasculature: There is atherosclerotic calcification of the cavernous carotid arteries. Calvarium: Unremarkable. Sinuses and mastoids: The visualized paranasal sinuses are clear. There is trace fluid within the mastoid air cells. Orbits: The bony orbits are grossly intact. There are bilateral ocular lens implants. IMPRESSION: There is no hemorrhage, mass effect, or evidence of acute territorial ischemia by CT criteria. SINGLE VIEW CHEST CLINICAL HISTORY: Sepsis. Confusion and lethargy. FINDINGS: An AP, portable, upright chest radiograph is compared to study dated 12/21/2015. The examination is degraded by portable technique and large body habitus. The heart is top normal for projection. There is atherosclerotic calcification of the thoracic aorta. Chronic residual thickening is unchanged. There are low lung volumes. Airspace opacities are present at both lung bases. No large pleural effusion Or pneumothorax is seen. The skeletal structures are osteopenic. The bony thorax is grossly intact. Degenerative change is noted throughout the thoracic spine and in the shoulders. Cholecystectomy clips are noted in the right upper quadrant. IMPRESSION: 1. Low lung volumes. 2. There are bibasilar airspace opacities. These are nonspecific and could represent atelectasis, aspiration pneumonitis, and/or developing pneumonia. Clinical correlation will be required. Laboratory Results 08/30/16 01:20 Red Blood Count 4.19, Mean Corpuscular Volume 84.0, Mean Corpuscular Hemoglobin 29.4, Mean Corpuscular Hemoglobin Concent 34.9, Mean Platelet Volume 10.0, Neutrophils (%) (Auto) 54.4, Lymphocytes (%) (Auto) 31.1, Monocytes (%) (Auto) 12.4, Eosinophils (%) (Auto) 1.5, Basophils (%) (Auto) 0.2, Neutrophils # (Auto ) 5.66, Lymphocytes # (Auto) 3.23, Monocytes # (Auto) 1.29, Eosinophils # (Auto ) 0.16, Basophils # (Auto) 0.02 08/30/16 20:00 Test 08/30/16 01:20 08/30/16 01:21 08/30/16 01:26 08/30/16 01:37 White Blood Count 10.40 K/uL (4.8-10.8) Red Blood Count 4.19 M/uL (4.2-5.4) Hemoglobin 12.3 g/dL (12.0-16.0) Hematocrit 35.2 % (37-47) Mean Corpuscular Volume 84.0 fL (80-100) Mean Corpuscular Hemoglobin 29.4 pg (25-34) Mean Corpuscular Hemoglobin Concent 34.9 g/dl (32-36) Platelet Count 277 K/uL (130-400) Mean Platelet Volume 10.0 fL (7.4-10.4) Neutrophils (%) (Auto) 54.4 % Lymphocytes (%) (Auto) 31.1 % Monocytes (%) (Auto) 12.4 % Eosinophils (%) (Auto) 1.5 % Basophils (%) (Auto) 0.2 % Neutrophils # (Auto) 5.66 K/uL (1.4-6.5) Lymphocytes # (Auto) 3.23 K/uL (1.2-3.4) Monocytes # (Auto) 1.29 K/uL (0.11-0.59) Eosinophils # (Auto) 0.16 K/uL (0-0.5) Basophils # (Auto) 0.02 K/uL (0-0.2) RDW Standard Deviation 39.9 fL (36.4-46.3) RDW Coefficient of Variation 13.1 % (11.5-14.5) Immature Granulocyte % (Auto) 0.4 % Immature Granulocyte # (Auto) 0.04 K/uL (0.00-0.02) Prothrombin Time 11.9 SECONDS (9.0-12.0) Prothromb Time International Ratio 1.1 (0.9-1.1) Activated Partial Thromboplast Time 22.3 SECONDS (21.0-31.0) Partial Thromboplastin Ratio 0.9 Magnesium Level 1.6 mg/dl (1.8-2.4) Total Bilirubin 0.8 mg/dl (0.2-1) Aspartate Amino Transf (AST/SGOT) 60 U/L (15-37) Alanine Aminotransferase (ALT/SGPT) 30 U/L (12-78) Alkaline Phosphatase 47 U/L (45-117) Total Creatine Kinase 171 U/L (26-192) Creatine Kinase MB 6.9 ng/ml (0.5-3.6) Creatine Kinase MB Ratio 4.0 (0-3.0) Pro-B-Type Natriuretic Peptide 4628 pg/ml (0-900) Total Protein 6.9 gm/dl (6.4-8.2) Albumin 3.1 gm/dl (3.4-5.0) Globulin 3.8 gm/dl (2.5-4.0) Albumin/Globulin Ratio 0.8 (0.9-2) Lipase 166 U/L (73-393) Bedside Lactic Acid Venous 1.97 mmol/L (0.90-1.70) Bedside Troponin I 0.180 ng/ml (0-0.045) Urine Color YELLOW Urine Appearance CLEAR (CLEAR) Urine pH 5.0 (4.5-7.5) Urine Specific [place] 1.008 (1.000-1.030) Urine Protein NEG (NEG) Urine Glucose (UA) NEG (NEG) Urine Ketones NEG (NEG) Urine Occult Blood NEG (NEG) Urine Nitrite NEG (NEG) Urine Bilirubin NEG (NEG) Urine Urobilinogen NEG (NEG) Urine Leukocyte Esterase SMALL (NEG) Urine WBC (Auto) 5-10 /hpf (0-5) Urine RBC (Auto) 0-4 /hpf (0-4) Urine Hyaline Casts (Auto) 1-5 /lpf (0-5) Urine Epithelial Cells (Auto) 10-20 /lpf (0-5) Urine Bacteria (Auto) 4+ (NEG) Urine Osmolality 292 mOms/kg (500-800) Urine Random Sodium 17 mEq/L Test 08/30/16 03:34 08/30/16 03:37 08/30/16 08:20 08/30/16 12:15 Osmolality 280 mOsm/kg (280-300) Lactic Acid Level 1.6 mmol/L (0.4-2.0) Phosphorus Level 2.3 mg/dl (2.5-4.9) Thyroid Stimulating Hormone (TSH) 0.217 uIu/ml (0.300-4.500) Free Thyroxine 1.52 ng/dl (0.80-1.60) Parathyroid Hormone (Intact) < 5.5 pg/mL (11.1-79.5) Total Triiodothyronine 0.76 ng/ml (0.60-1.81) Troponin I 0.324 ng/ml (0-0.045) Chemistry Specimen Hemolysis Test 08/30/16 20:00 08/30/16 20:35 Anion Gap 8.0 mmol/L (3-11) Est Creatinine Clear Calc Drug Dose 36.1 ml/min Estimated GFR () 32.3 Estimated GFR (Non- 27.8 BUN/Creatinine Ratio 16.2 (10-20) Calcium Level 10.1 mg/dl (8.5-10.1) Bedside Glucose 149 mg/dl (70-90) Medications Administered Medications (Trade) Dose Ordered Sig/Hansel Route Start Time Stop Time Status Last Admin Dose Admin Sodium Chloride (Nss 1000ml) 1,000 ml @ 333 mls/hr Q3H1M ONCE IV 08/30/16 01:15 08/30/16 04:15 DC 08/30/16 01:41 333 MLS/HR Piperacillin Sod/ Tazobactam Sod 4.5 gm 4.5 gm NOW STAT IV 08/30/16 02:06 08/30/16 02:07 DC 08/30/16 02:31 4.5 GM Daptomycin/Sodium Chloride (Cubicin IV/Nss 50ml) 64.8 ml @ 100 mls/hr NOW IV 08/30/16 02:15 08/30/16 06:50 DC 08/30/16 03:19 100 MLS/HR Potassium Chloride (Klor-Con M10) 40 meq NOW STAT PO 08/30/16 02:41 08/30/16 02:48 DC 08/30/16 03:42 40 MEQ Heparin Sodium (Porcine) (Heparin Sq 5000 Unit/0.5ml) 5,000 unit Q8 SQ 08/30/16 06:00 09/29/16 05:59 08/30/16 14:03 5,000 UNIT Insulin Aspart (novoLOG ASPART) SLIDING SCALE If C... ACHS SC 08/30/16 07:00 08/30/16 11:31 1 UNITS Amlodipine Besylate (Norvasc Tab) 5 mg DAILY PO 08/30/16 09:00 08/30/16 13:07 DC 08/30/16 08:45 5 MG Aspirin (Ecotrin Tab) 325 mg DAILY PO 08/30/16 09:00 09/29/16 08:59 08/30/16 08:45 325 MG Hydralazine HCl (Apresoline Tab) 50 mg TID PO 08/30/16 09:00 09/29/16 08:59 08/30/16 21:33 50 MG Sertraline HCl (Zoloft Tab) 50 mg DAILY PO 08/30/16 09:00 09/29/16 08:59 08/30/16 08:46 50 MG Pantoprazole Sodium (Protonix Tab) 40 mg DAILY PO 08/30/16 09:00 09/29/16 08:59 08/30/16 08:46 40 MG Clonidine HCl 0.2 mg 0.2 mg BID PO 08/30/16 09:00 09/29/16 08:59 08/30/16 21:33 0.2 MG Magnesium Sulfate/ Prmx (Magnesium Sulfate/Premixed D5W) 100 ml @ 100 mls/hr NOW STAT IV 08/30/16 04:57 08/30/16 05:56 DC 08/30/16 05:38 100 MLS/HR Potassium Chloride 40 meq 40 meq TODAY@0600 ONCE PO 08/30/16 06:00 08/30/16 06:01 DC 08/30/16 05:38 40 MEQ Piperacillin Sod/ Tazobactam Sod 4.5 gm/Dextrose 120 ml @ 30 mls/hr Q8H IV 08/30/16 07:30 09/09/16 07:29 08/30/16 15:32 30 MLS/HR Sodium Chloride (Nss 1000ml) 1,000 ml @ 75 mls/hr [id number] ONCE IV 08/30/16 05:15 08/30/16 11:31 DC 08/30/16 05:27 75 MLS/HR Insulin Glargine (Lantus Solostar Pen) 5 unit NOW STAT SC 08/30/16 06:26 08/30/16 06:27 DC 08/30/16 06:36 5 UNIT Insulin Glargine (Lantus Solostar Pen) 5 unit BID SC 08/30/16 21:00 09/29/16 20:59 08/30/16 21:34 5 UNIT Carvedilol (Coreg Tab) 12.5 mg BID PO 08/30/16 21:00 09/29/16 20:59 08/30/16 21:34 12.5 MG Carvedilol (Coreg Tab) 12.5 mg 0647 ONCE PO 08/30/16 06:47 08/30/16 06:50 DC 08/30/16 08:42 12.5 MG Hydralazine HCl 10 mg 10 mg ONE ONCE IV. 08/30/16 08:15 08/30/16 08:16 DC 08/30/16 08:55 10 MG Sodium Chloride (Nss 1000ml) 1,000 ml @ 100 mls/hr Q10H IV 08/30/16 11:30 09/29/16 11:29 08/30/16 21:35 100 MLS/HR Amlodipine Besylate (Norvasc Tab) 5 mg NOW ONCE PO 08/30/16 13:15 08/30/16 13:16 DC 1/1/17 13:49 5 MG ED Course Physical exam and history were performed. Nursing notes and EMR were reviewed. Patient appears to have altered mental status. She is pleasant and does have an elevated blood pressure. I have considerable concern for the patient as she does have a history of multidrug resistant UTI a few months ago. She is also significantly worse today according to her sister. IV access was established and labs were obtained. Cultures were gathered. Chest x-ray and CT scan of the head were performed. EKG was also performed and the patient was placed on a diagnostic cardiac sonographer. I discussed the case with my attending physician, Dr. Carr, who also independently evaluated the patient and remain closely involved in patient care. The patient's blood work is as above and was reviewed.she does not have a significantly elevated white blood cell count or gross anemia. The patient has an elevated troponin, as well as renal insufficiency. The patient's urine may represent infection, however this is difficult to ascertain. Her chest x-ray may show an early pneumonia. CT scan does not show evidence of stroke. She does have electrolyte imbalances including a low sodium. She has been hydrated with normal saline here in the department. Overall the patient does not appear stable for discharge home. There is concern for encephalopathy possible sepsis. Her troponin is also elevated which may be from hypertensive urgency and renal insufficiency, or possibly a cardiac event. The patient was started on daptomycin and Zosyn here in the department. The case was discussed with on-call [facility] hospitalist, who agreed to evaluate patient here in the emergency department. Please see their dictation for further patient course, plan, and disposition. The chart was completed utilizing [employer] Speech Voice Recognition Software. Grammatical errors, random word insertions, pronoun errors, and incomplete sentences are an occasional consequence of this system due to software limitations, ambient noise, and hardware issues. Any formal questions or concerns about the content, text, or information contained within the body of this dictation should be directly addressed to the provider for clarification. . Medical Decision Differential diagnosis: Etiologies such as metabolic, sepsis, infection, hypoglycemia, electrolyte abnormalities, cardiac sources, intracerebral event, toxicologic, neurologic, as well as others were entertained. Impression Primary Impression: Altered mental status Additional Impressions: Elevated troponin, Hyponatremia Departure Information Dispostion Still a Patient Condition FAIR Referrals Angela Marin M.D. (PCP) Forms WORK / SCHOOL INSTRUCTIONS, HOME CARE DOCUMENTATION FORM, IMPORTANT VISIT INFORMATION Patient Instructions A Signature Page, My [facility]
[2016-08-31] VITALS (7 sets, daily range): BP systolic 112–189; BP diastolic 43–58; PULSE 52–76; TEMP 36.3–37.1; O2SAT 94–98; Ht 162.6 cm; Wt 122.2 kg
[2016-08-31 00:28] LABS: BUN/CREATININE RATIO 15.9 (10-20); CALCIUM 9.7 mg/dl (8.5-10.1); CREATININE 1.8 mg/dl (0.60-1.20); POTASSIUM 3.6 mmol/L (3.5-5.1)
[2016-08-31] MEDS: HEPARIN SOD 5000 UNIT/0.5 ML CARP SQ SCH ×3 (06:36→20:52)
[2016-08-31 07:03] LABS: BASO % 0.2 %; BASO ABS # 0.02 K/uL (0-0.2); COMPLETE YES; EOS % 0.9 %; HEMATOCRIT 30.5 % (37-47); IG% 0.7 %; LYMPH ABS # 1.62 K/uL (1.2-3.4); MEAN CELL VOLUME 84.7 fL (80-100); MEAN CORPUSCULAR HEMOGLOBIN 29.2 pg (25-34); MEAN CORPUSCULAR HGB CONC 34.4 g/dl (32-36); MEAN PLATELET VOLUME 10.1 fL (7.4-10.4); NEUT % 70.2 %; PLATELET COUNT 248 K/uL (130-400); WHITE BLOOD COUNT 9.01 K/uL (4.8-10.8)
[2016-08-31] MEDS: CARVEDILOL 12.5 MG TAB PO SCH ×2 (07:33→20:44)
[2016-08-31] MEDS: CLONIDINE HCL 0.1 MG TAB PO SCH ×2 (07:33→21:02)
[2016-08-31] MEDS: SERTRALINE HCL 50 MG TAB PO SCH (07:33)
[2016-08-31] MEDS: PANTOprazole SOD 40 MG TAB PO SCH (07:34)
[2016-08-31] MEDS: ASPIRIN 325 MG ECTAB PO SCH (07:34)
[2016-08-31] MEDS: AMLODIPINE BESYLATE 5 MG TAB PO SCH (07:34)
[2016-08-31] MEDS: SODIUM CHLORIDE 0.9% 1000ML 1,000 ML IV SCH ×2 (07:36→17:33)
[2016-08-31] MEDS: PIPERACILL/TAZOBAC IV 4.5 GM in DEXTROSE 5% 100ML IV SCH ×2 (07:37→15:16)
[2016-08-31 07:39] LABS: BUN/CREATININE RATIO 16.2 (10-20); CALCIUM 9.8 mg/dl (8.5-10.1); CREATININE 1.8 mg/dl (0.60-1.20); MAGNESIUM 1.7 mg/dl (1.8-2.4); POTASSIUM 3.5 mmol/L (3.5-5.1)
[2016-08-31] MEDS: INSULIN ASPART 100 UNITS/ML 3 ML PEN SC SCH ×4 (07:40→20:51)
[2016-08-31] MEDS: INSULIN GLARGINE SOLOSTAR 100 UNITS/ML 3 ML PEN SC SCH ×2 (07:41→20:51)
[2016-08-31 07:42] LABS: ESTIMATED AVERAGE GLUCOSE 186 mg/dl; HA1C FLAG Normal (Normal)
--- NOTE | 2016-08-31 08:32 | ECHOCARDIOGRAM REPORT ---
*NOTICE TO RECEIVING DEMOCRAT AGENCY This information is strictly Confidential and protected under [place] law. [place] law prohibits you from making any further disclosure of this information unless further disclosure is expressly permitted by the written consent of the person to whom it pertains or is authorized by law. A general authorization for the release of medical or other information is not sufficient for this purpose. Hospital accepts no responsibility if the information is made available to any other person, INCLUDING THE PATIENT. Interpretation Summary * Name: DONNA CERNA Study Date: 08/30/2016 01:46 PM BP: 187/75 mmHg * Patient Location: [id number].[id number]\E206\S\1 HR: 88 * : 1945 (M/d/yyyy) Gender: Female Height: 64 in * Age: 71 yrs Ethnicity: CA Weight: 258 lb * Ordering Physician: Nallely Iyer * Referring Physician: Self, Referred * Performed By: Brandy Chirinos RDCS * * Reason For Study: Malignant Hyperension * BSA: 2.2 m2 * -- Conclusions -- * Normal LV chamber size with mild concentric LVH. * Normal LV systolic function, EF 60-65%. * No segmental left ventricular wall motion abnormalities are noted. * Grade I diastolic dysfunction. * Aortic valve sclerosis moderate, without significant aortic valvular stenosis. Mild aortic regurgitation. * There is moderate to severe mitral annular calcification.The mitral valve leaflets appear thickened, but open well. There is no mitral regurgitation noted. * There is no mitral valve stenosis. Procedure Details * A complete two-dimensional transthoracic echocardiogram was performed (2D, M-mode, Doppler and color flow Doppler). * The study was technically difficult. * The study was technically difficult, but visualization was adequate with the administration of Definity ultrasound contrast. * There were technical limitations due to patient'sbody habitus * A contrast injection of Definity was performed to improve assessment of LV function. * Contrast was injected into an intravenous site in the left arm. * One vial of Definity ultrasound contrast was diluted in normal saline to a total volume of 10 ml. A total of '2' ml of solution was administered during imaging. * Lot # [id number] of Definity utilized for procedure. * Expiration date . * The attending nurse who injected the contrast agent was Leonardo [place], RN. Left Ventricle * The left ventricle is normal in size. * There is mild concentric left ventricular hypertrophy. * Ejection Fraction = 60-65%. * Left ventricular systolic function is normal. * No segmental left ventricular wall motion abnormalities are noted. * The left ventricular wall motion is normal. Right Ventricle * The right ventricular cavity size is normal (basal dimension <4.2 cm in right ventricular apical 4-chamber view). * The right ventricular systolic function is normal as assessed by tricuspid annular plane systolic excursion (TAPSE) (normal >1.5 cm). Atria * The left atrial size is normal. * Right atrial size is normal. * No ASD detected; PFO is not assessed. Mitral Valve * There is moderate to severe mitral annular calcification. * The mitral valve leaflets appear thickened, but open well. * There is no mitral valve stenosis. * There is no mitral regurgitation noted. Tricuspid Valve * The tricuspid valve is normal in structure and function. Aortic Valve * The aortic valve is trileaflet. * Aortic valve sclerosis moderate, without significant aortic valvular stenosis. * Mild aortic regurgitation. Pulmonic Valve * The pulmonary valve is not well seen, but the Doppler examination is normal without significant regurgitation or stenosis. Great Vessels * The aortic root and proximal ascending aorta are normal sized. * Moderate atherosclerotic plaque(s) in the ascending aorta. Pericardium/Pleural * There is no pericardial effusion. Left Ventricular Diastolic Function * Grade I diastolic dysfunction, (abnormal relaxation pattern). MMode 2D Measurements and Calculations IVSd 1.1 cm IVSs 1.6 cm LVIDd 4.0 cm LVIDs 2.3 cm LVPWd 1.0 cm LVPWs 1.7 cm IVS/LVPW 1.1 FS 40.8 % EDV(Teich) 68.2 ml ESV(Teich) 18.9 ml EF(Teich) 72.2 % EDV(cubed) 61.9 ml ESV(cubed) 12.8 ml EF(cubed) 79.3 % % IVS thick 42.4 % % LVPW thick 60.4 % LV mass(C)d 139.5 grams LV mass(C)dI 64.0 grams/m\S\2 LV mass(C)s 136.6 grams LV mass(C)sI 62.7 grams/m\S\2 SV(Teich) 49.3 ml SI(Teich) 22.6 ml/m\S\2 SV(cubed) 49.1 ml SI(cubed) 22.5 ml/m\S\2 Ao root diam 2.4 cm Ao root area 4.5 cm\S\2 ACS 1.8 cm LA dimension 2.6 cm LA/Ao 1.1 LVAd ap4 21.2 cm\S\2 LVLd ap4 6.8 cm EDV(MOD-sp4) 55.0 ml EDV(sp4-el) 56.6 ml LVAs ap4 9.4 cm\S\2 LVLs ap4 5.5 cm ESV(MOD-sp4) 14.2 ml ESV(sp4-el) 13.7 ml EF(MOD-sp4) 74.2 % EF(sp4-el) 75.9 % LVAd ap2 23.5 cm\S\2 LVLd ap2 7.0 cm EDV(MOD-sp2) 68.9 ml EDV(sp2-el) 67.1 ml LVAs ap2 8.3 cm\S\2 LVLs ap2 5.7 cm ESV(MOD-sp2) 10.5 ml ESV(sp2-el) 10.4 ml EF(MOD-sp2) 84.7 % EF(sp2-el) 84.6 % LVLd %diff 3.0 % EDV(MOD-bp) 62.2 ml LVLs %diff 3.8 % ESV(MOD-bp) 12.6 ml EF(MOD-bp) 79.7 % SV(MOD-sp4) 40.8 ml SI(MOD-sp4) 18.7 ml/m\S\2 SV(MOD-sp2) 58.4 ml SI(MOD-sp2) 26.8 ml/m\S\2 SV(MOD-bp) 49.6 ml SI(MOD-bp) 22.8 ml/m\S\2 SV(sp4-el) 42.9 ml SI(sp4-el) 19.7 ml/m\S\2 SV(sp2-el) 56.8 ml SI(sp2-el) 26.0 ml/m\S\2 Doppler Measurements and Calculations MV E max fish 79.8 cm/sec MV A max fish 121.9 cm/sec MV E/A 0.65 MV dec time 0.46 sec Ao V2 max 161.8 cm/sec Ao max PG 10.5 mmHg Ao max PG (full) 4.2 mmHg LV V1 max PG 6.3 mmHg LV V1 max 125.1 cm/sec PA V2 max 123.3 cm/sec PA max PG 6.1 mmHg
[2016-08-31] MEDS: MAGNESIUM SULFATE 1GM / D5W 1 GM in PREMIXED IN D5W 100 ML IV SCH ×4 (08:58→12:17)
--- NOTE | 2016-08-31 13:43 | PROGRESS NOTE ---
DATE: 08/31/2016 NEPHROLOGY NOTE SUBJECTIVE: The patient did good overnight. She seems much more awake and alert, and actually I had a conversation with her today. She denies any pain, nausea, vomiting, chest pain, shortness of breath. OBJECTIVE: VITAL SIGNS: Blood pressure 112/43, 96% on room air, pulse rate 52, temperature 36.7. HEENT: Mucous membranes moist. NECK: Supple. No jugular venous distention. CHEST: Bilateral clear to auscultation, although very poor inspiratory effort. CARDIOVASCULAR: S1 and S2 are regular, distant heart sounds. ABDOMEN: Soft, nontender, obese. EXTREMITIES: Show bilateral 1+ lower extremity edema but appears more related with obesity. LABORATORY DATA: Most recent blood work from this morning shows a sodium of 131, potassium 3.5, BUN 29, creatinine 1.8, magnesium 1.7, calcium is 9.8, hemoglobin 10.5, platelet count 248. WBC count 9.01. ASSESSMENT AND PLAN: 1. Acute renal failure. This was prerenal in etiology secondary to her recent gastrointestinal illness as well as urinary tract infection. She is back to her baseline creatinine of around 1.8 with the use of IV fluids. No further workup is needed. 2. Hypercalcemia. She had a serum calcium of 11.8 with a suppressed parathyroid hormone. She was taking calcium and vitamin D as an outpatient, which I would stop. At this time with the use of fluid and stopping the calcium and vitamin D, she is having a normal calcium. 3. Hyponatremia. Serum sodium this morning is 131. The rate of correction of serum sodium has been appropriate. For now, I would continue with the normal saline as she still seems somewhat somnolent with poor appetite. She had a combination of syndrome of inappropriate antidiuretic hormone with true hypovolemic hyponatremia. The urine osmolality was 292, which is somewhat inappropriate in the setting of low serum sodium, but was not crazily high that we expect in syndrome of inappropriate antidiuretic hormone. Continue to hold the p.o. Lasix and metolazone. Continue normal saline. Check BMP every 6 hours. If the serum sodium drops from here, I would give 1 dose of IV Lasix but for now continue the same. MTDD
[2016-08-31 18:58] LABS: BUN/CREATININE RATIO 14.3 (10-20); CALCIUM 9.6 mg/dl (8.5-10.1); POTASSIUM 3.3 mmol/L (3.5-5.1)
[2016-08-31] MEDS: POTASSIUM CHLR 10 MEQ / WTR 10 MEQ in PREMIXED WATER 100 ML IV SCH ×2 (20:42→22:54)
[2016-08-31 23:04] LABS: CREATININE 1.9 mg/dl (0.60-1.20); POTASSIUM 3.2 mmol/L (3.5-5.1)
[2016-09-01] MEDS: POTASSIUM CHLR 10 MEQ / WTR 10 MEQ in PREMIXED WATER 100 ML IV SCH ×2 (00:12→01:41)
[2016-09-01] MEDS: PIPERACILL/TAZOBAC IV 4.5 GM in DEXTROSE 5% 100ML IV SCH ×2 (00:15→07:49)
--- NOTE | 2016-09-01 01:46 | Progress Note ---
Medicine Progress Note Date & Time of Visit: Aug 31, 2016 at 17:09. Subjective Denies dysuria, flank pain, fevers or chills Denies chest pain or SOB Feeling somewhat better but still unable to eat much as the food is "not appealing" to her. She is currently on a clear liquid diet. Objective Last 8 Hrs Date Time Temp Pulse Resp B/P Pulse Ox O2 Delivery O2 Flow Rate FiO2 08/31/16 15:45 36.6 52 14 162/47 96 Room Air 08/31/16 12:00 Room Air 08/31/16 11:43 36.7 52 14 112/43 96 Room Air Physical Exam: GEN: obese, sitting in chair, slow to respond but answers questions appropriately. alert HEENT: NC/AT, normal sclerae CARDIO: reg rate, S1/2 heard without m/g/r LUNGS: CTA bilaterally, no crackles, rales or wheezes, good diaphragmatic excursion ABD: soft, non-tender, non-distended, no rebound or guarding,BS-hypoactive EXTREMITY: RP and DP palpable 2+ bilat, no LE swelling or edema, extremities are warm and well-perfused NEURO: answers all questions appropriately MUSC: generalized weakness, cannot assess for focal deficits 2/2 excessive fatigue and body habitus SKIN: warm and dry Laboratory Results: Last 24 Hours Test 08/30/16 20:00 08/30/16 20:35 08/30/16 23:54 08/31/16 06:25 Sodium Level 130 mmol/L 133 mmol/L 131 mmol/L Potassium Level 3.7 mmol/L 3.6 mmol/L 3.5 mmol/L Chloride Level 89 mmol/L 91 mmol/L 91 mmol/L Carbon Dioxide Level 33 mmol/L 32 mmol/L 30 mmol/L Anion Gap 8.0 mmol/L 10.0 mmol/L 10.0 mmol/L Blood Urea Nitrogen 29 mg/dl 29 mg/dl 29 mg/dl Creatinine 1.80 mg/dl 1.80 mg/dl 1.80 mg/dl Est Creatinine Clear Calc Drug Dose 36.1 ml/min 36.1 ml/min 36.3 ml/min Estimated GFR () 32.3 32.3 32.3 Estimated GFR (Non- 27.8 27.8 27.8 BUN/Creatinine Ratio 16.2 15.9 16.2 Random Glucose 148 mg/dl 147 mg/dl 164 mg/dl Calcium Level 10.1 mg/dl 9.7 mg/dl 9.8 mg/dl Bedside Glucose 149 mg/dl White Blood Count 9.01 K/uL Red Blood Count 3.60 M/uL Hemoglobin 10.5 g/dL Hematocrit 30.5 % Mean Corpuscular Volume 84.7 fL Mean Corpuscular Hemoglobin 29.2 pg Mean Corpuscular Hemoglobin Concent 34.4 g/dl Platelet Count 248 K/uL Mean Platelet Volume 10.1 fL Neutrophils (%) (Auto) 70.2 % Lymphocytes (%) (Auto) 18.0 % Monocytes (%) (Auto) 10.0 % Eosinophils (%) (Auto) 0.9 % Basophils (%) (Auto) 0.2 % Neutrophils # (Auto) 6.33 K/uL Lymphocytes # (Auto) 1.62 K/uL Monocytes # (Auto) 0.90 K/uL Eosinophils # (Auto) 0.08 K/uL Basophils # (Auto) 0.02 K/uL RDW Standard Deviation 41.6 fL RDW Coefficient of Variation 13.5 % Immature Granulocyte % (Auto) 0.7 % Immature Granulocyte # (Auto) 0.06 K/uL Magnesium Level 1.7 mg/dl Chemistry Specimen Hemolysis Test 08/31/16 07:03 08/31/16 10:59 08/31/16 16:04 08/31/16 17:05 Bedside Glucose 185 mg/dl 227 mg/dl 182 mg/dl Assessment & Plan 1. Encephalopathy-improved with improvement in electrolyte disturbances and treatment of UTI (hx Zosyn sensitive ESBL E coli/Enterococcus) 2. Hypercalcemia-improved with IVF 3. Hypotonic hypovolemic hyponatremia 2/2 recent GI losses and poor PO intake, hold home Lasix and metolazone. Cont IVF 4. ARF 2/2 dehydration-already improving with IVF administration 5. UTI- pt denies symptoms of UTI but is poor historian. Covered with Zosyn for now; E coli >100K-awaiting speciation. 6. DMII-ISS/Lantus 5 Units BID 7. Hypertroponemia likely 2/2 hypertensive heart disease vs kidney dysfunction in setting of elevated BP and severe dehydration-TTE was unremarkable with EF 60 %. Pt is currently denying any symptoms of chest pain or shortness of breath. EKG reveals SR 75 8. HTN-still uncontrolled, cont Norvasc 10 and Increase hydralazine to QID. ACEI, HCTZ are contraindicated. Cont to monitor. Nutrition-clears (low salt, low sugar) for now and she is tolerating this Aspiration precautions DVT prophy-heparin 5K q8 PT, OT eval. Full code. Dispo-cont tele Nallely Iyer DO [facility] Hospitalist Current Inpatient Medications: Current Inpatient Medications Medications (Trade) Dose Ordered Sig/Hansel Route Start Time Stop Time Status Last Admin Dose Admin Heparin Sodium (Porcine) (Heparin Sq 5000 Unit/0.5ml) 5,000 unit Q8 SQ 08/30/16 06:00 09/29/16 05:59 08/31/16 14:19 5,000 UNIT Acetaminophen (Tylenol Tab) 650 mg Q4H PRN PO 08/30/16 03:30 09/29/16 03:29 Nitroglycerin (Nitrostat Tab) 0.4 mg UD PRN SL 08/30/16 03:30 09/29/16 03:29 Insulin Aspart (novoLOG ASPART) SLIDING SCALE If C... ACHS SC 08/30/16 07:00 08/31/16 12:21 2 UNITS Glucose (Glucose 40% Gel) 15-30 GRAMS 15 GRAMS... UD PRN PO 08/30/16 03:30 09/29/16 03:29 Glucose (Glucose Chew Tab) 4-8 Tablets 4 Tabl... UD PRN PO 08/30/16 03:30 09/29/16 03:29 Dextrose (Dextrose 50% 50ML Syringe) 25-50ML OF 50% DW IV FOR... UD PRN IV 08/30/16 03:30 09/29/16 03:29 Glucagon (Glucagon Inj) 1 mg UD PRN SQ 08/30/16 03:30 09/29/16 03:29 Hydromorphone HCl (Dilaudid Inj) 0.5 mg Q3H PRN IV 08/30/16 03:30 09/13/16 03:29 Ondansetron HCl (Zofran Inj) 4 mg Q6H PRN IV 08/30/16 03:30 09/29/16 03:29 Aspirin (Ecotrin Tab) 325 mg DAILY PO 08/30/16 09:00 09/29/16 08:59 08/31/16 07:34 325 MG Sertraline HCl (Zoloft Tab) 50 mg DAILY PO 08/30/16 09:00 09/29/16 08:59 08/31/16 07:33 50 MG Pantoprazole Sodium (Protonix Tab) 40 mg DAILY PO 08/30/16 09:00 09/29/16 08:59 08/31/16 07:34 40 MG Miscellaneous Information (Order Awaiting Action) 1 ea QS N/A 08/30/16 08:00 09/29/16 07:59 Clonidine HCl (Catapres Tab) 0.2 mg BID PO 08/30/16 09:00 09/29/16 08:59 08/31/16 07:33 0.2 MG Piperacillin Sod/ Tazobactam Sod 1 ea 1 ea UD PRN N/A 08/30/16 03:45 09/29/16 03:44 Piperacillin Sod/ Tazobactam Sod/ Dextrose (Zosyn Iv/D5 100ml) 120 ml @ 30 mls/hr Q8H IV 08/30/16 07:30 09/09/16 07:29 08/31/16 15:16 30 MLS/HR Insulin Glargine (Lantus Solostar Pen) 5 unit BID SC 08/30/16 21:00 09/29/16 20:59 08/31/16 07:41 5 UNIT Carvedilol 12.5 mg 12.5 mg BID PO 08/30/16 21:00 09/29/16 20:59 08/31/16 07:33 12.5 MG Sodium Chloride (Nss 1000ml) 1,000 ml @ 100 mls/hr Q10H IV 08/30/16 11:30 09/29/16 11:29 08/31/16 07:36 100 MLS/HR Amlodipine Besylate (Norvasc Tab) 10 mg QAM PO 08/31/16 09:00 09/30/16 08:59 08/31/16 07:34 10 MG Hydralazine HCl (Apresoline Tab) 50 mg QID PO 08/31/16 13:00 09/30/16 12:59
[2016-09-01] MEDS: SODIUM CHLORIDE 0.9% 1000ML 1,000 ML IV SCH (02:26)
[2016-09-01] MEDS: ONDANSETRON INJ 2 MG/ML 2 ML VIAL IV PRN ×3 (03:32→18:41)
[2016-09-01 03:35] VITALS: BP 163/58; PULSE 71; TEMP 36.9; O2SAT 96
[2016-09-01] MEDS: HEPARIN SOD 5000 UNIT/0.5 ML CARP SQ SCH ×3 (05:29→20:24)
[2016-09-01 07:30] LABS: BASO % 0.2 %; BASO ABS # 0.02 K/uL (0-0.2); COMPLETE YES; EOS % 2.3 %; HEMATOCRIT 29.4 % (37-47); IG% 0.6 %; LYMPH % 26.5 %; LYMPH ABS # 2.16 K/uL (1.2-3.4); MEAN CELL VOLUME 83.5 fL (80-100); MEAN CORPUSCULAR HEMOGLOBIN 29.3 pg (25-34); MEAN PLATELET VOLUME 9.5 fL (7.4-10.4); MONO % 9.2 %; NEUT % 61.2 %; PLATELET COUNT 224 K/uL (130-400); RED BLOOD COUNT 3.52 M/uL (4.2-5.4); WHITE BLOOD COUNT 8.16 K/uL (4.8-10.8)
--- NOTE | 2016-09-01 07:41 | Nephrology Progress Note ---
Nephrology Progress Note Date of Service: Sep 01, 2016. Subjective 71 yo female with hypercalcemia with appropriately low pth which has improved with iv fluids. caclium is better. pt would like to go home as soon as possible. sodium was low and required a dose of lasix last night. does have a ecoli uti. Objective Date Time Temp Pulse Resp B/P Pulse Ox O2 Delivery O2 Flow Rate FiO2 09/01/16 04:00 Room Air 09/01/16 03:35 36.9 71 20 163/58 96 Room Air 09/01/16 00:00 Room Air 08/31/16 23:33 36.7 76 20 134/46 98 Room Air 08/31/16 20:53 166/48 08/31/16 20:00 Room Air 08/31/16 19:40 36.3 70 19 98 Room Air 08/31/16 16:00 Room Air 08/31/16 15:45 36.6 52 14 162/47 96 Room Air 08/31/16 12:00 Room Air 08/31/16 11:43 36.7 52 14 112/43 96 Room Air 08/31/16 08:00 Room Air Physical Exam: General-aaox3, obese Eyes-no scleral icterus ENT-mmm Neck-supple Lungs-cta Heart-distant heart sounds Abdomen-bs+, s/nt/nd Extremities-mild edema Neuro-nonfocal Current Inpatient Medications Medications (Trade) Dose Ordered Sig/Hansel Route Start Time Stop Time Status Last Admin Dose Admin Heparin Sodium (Porcine) (Heparin Sq 5000 Unit/0.5ml) 5,000 unit Q8 SQ 08/30/16 06:00 09/29/16 05:59 09/01/16 05:29 5,000 UNIT Acetaminophen (Tylenol Tab) 650 mg Q4H PRN PO 08/30/16 03:30 09/29/16 03:29 Nitroglycerin (Nitrostat Tab) 0.4 mg UD PRN SL 08/30/16 03:30 09/29/16 03:29 Insulin Aspart (novoLOG ASPART) SLIDING SCALE If C... ACHS SC 08/30/16 07:00 08/31/16 20:51 1 UNITS Glucose (Glucose 40% Gel) 15-30 GRAMS 15 GRAMS... UD PRN PO 08/30/16 03:30 09/29/16 03:29 Glucose (Glucose Chew Tab) 4-8 Tablets 4 Tabl... UD PRN PO 08/30/16 03:30 09/29/16 03:29 Dextrose (Dextrose 50% 50ML Syringe) 25-50ML OF 50% DW IV FOR... UD PRN IV 08/30/16 03:30 09/29/16 03:29 Glucagon (Glucagon Inj) 1 mg UD PRN SQ 08/30/16 03:30 09/29/16 03:29 Hydromorphone HCl (Dilaudid Inj) 0.5 mg Q3H PRN IV 08/30/16 03:30 09/13/16 03:29 Ondansetron HCl (Zofran Inj) 4 mg Q6H PRN IV 08/30/16 03:30 09/29/16 03:29 09/01/16 03:32 4 MG Aspirin (Ecotrin Tab) 325 mg DAILY PO 08/30/16 09:00 09/29/16 08:59 08/31/16 07:34 325 MG Sertraline HCl (Zoloft Tab) 50 mg DAILY PO 08/30/16 09:00 09/29/16 08:59 08/31/16 07:33 50 MG Pantoprazole Sodium (Protonix Tab) 40 mg DAILY PO 08/30/16 09:00 09/29/16 08:59 08/31/16 07:34 40 MG Miscellaneous Information (Order Awaiting Action) 1 ea QS N/A 08/30/16 08:00 09/29/16 07:59 Clonidine HCl (Catapres Tab) 0.2 mg BID PO 08/30/16 09:00 09/29/16 08:59 08/31/16 21:02 0.2 MG Piperacillin Sod/ Tazobactam Sod 1 ea 1 ea UD PRN N/A 08/30/16 03:45 09/29/16 03:44 Piperacillin Sod/ Tazobactam Sod/ Dextrose (Zosyn Iv/D5 100ml) 120 ml @ 30 mls/hr Q8H IV 08/30/16 07:30 09/09/16 07:29 09/01/16 00:15 30 MLS/HR Insulin Glargine (Lantus Solostar Pen) 5 unit BID SC 08/30/16 21:00 09/29/16 20:59 08/31/16 20:51 5 UNIT Carvedilol 12.5 mg 12.5 mg BID PO 08/30/16 21:00 09/29/16 20:59 08/31/16 20:44 12.5 MG Sodium Chloride (Nss 1000ml) 1,000 ml @ 100 mls/hr Q10H IV 08/30/16 11:30 09/29/16 11:29 09/01/16 02:26 100 MLS/HR Amlodipine Besylate (Norvasc Tab) 10 mg QAM PO 08/31/16 09:00 09/30/16 08:59 08/31/16 07:34 10 MG Hydralazine HCl (Apresoline Tab) 50 mg QID PO 08/31/16 13:00 09/30/16 12:59 08/31/16 20:43 50 MG Last 24 Hours Test 08/31/16 10:59 08/31/16 16:04 08/31/16 18:10 08/31/16 20:15 Bedside Glucose 227 mg/dl 182 mg/dl 202 mg/dl Sodium Level 130 mmol/L Potassium Level 3.3 mmol/L Chloride Level 92 mmol/L Carbon Dioxide Level 28 mmol/L Anion Gap 10.0 mmol/L Blood Urea Nitrogen 29 mg/dl Creatinine 2.00 mg/dl Est Creatinine Clear Calc Drug Dose 32.6 ml/min Estimated GFR () 28.4 Estimated GFR (Non- 24.5 BUN/Creatinine Ratio 14.3 Random Glucose 209 mg/dl Calcium Level 9.6 mg/dl Chemistry Specimen Hemolysis Test 08/31/16 22:21 09/01/16 06:35 09/01/16 07:10 Sodium Level 132 mmol/L Potassium Level 3.2 mmol/L Chloride Level 94 mmol/L Carbon Dioxide Level 29 mmol/L Anion Gap 9.0 mmol/L Blood Urea Nitrogen 29 mg/dl Creatinine 1.90 mg/dl Est Creatinine Clear Calc Drug Dose 34.3 ml/min Estimated GFR () 30.2 Estimated GFR (Non- 26.1 BUN/Creatinine Ratio 15.0 Random Glucose 173 mg/dl Calcium Level 9.0 mg/dl Bedside Glucose 211 mg/dl White Blood Count 8.16 K/uL Red Blood Count 3.52 M/uL Hemoglobin 10.3 g/dL Hematocrit 29.4 % Mean Corpuscular Volume 83.5 fL Mean Corpuscular Hemoglobin 29.3 pg Mean Corpuscular Hemoglobin Concent 35.0 g/dl Platelet Count 224 K/uL Mean Platelet Volume 9.5 fL Neutrophils (%) (Auto) 61.2 % Lymphocytes (%) (Auto) 26.5 % Monocytes (%) (Auto) 9.2 % Eosinophils (%) (Auto) 2.3 % Basophils (%) (Auto) 0.2 % Neutrophils # (Auto) 4.99 K/uL Lymphocytes # (Auto) 2.16 K/uL Monocytes # (Auto) 0.75 K/uL Eosinophils # (Auto) 0.19 K/uL Basophils # (Auto) 0.02 K/uL RDW Standard Deviation 41.3 fL RDW Coefficient of Variation 13.5 % Immature Granulocyte % (Auto) 0.6 % Immature Granulocyte # (Auto) 0.05 K/uL Assessment & Plan hypercalcemia with calcium of 11.7 and improved to 9 yesterday. would like to stop the iv fluids. pth was appropriately low. thought to have element of pre- renal state. no secondary workup needed at this time. if calcium levels start to rise again as an outpt, will continue workup in clinic. hyponatremia-sodium levels were low from pre-renal state and improved with normal saline. did get one dose of lasix last night and have stopped the iv fluids this morning. hypokalemia-k was 3.2 and repleted prn. todays labs are pending and would replete as needed. if sodium above 130 and calcium levels normalized, cleared from renal perspective.
[2016-09-01] MEDS: INSULIN ASPART 100 UNITS/ML 3 ML PEN SC SCH ×4 (07:44→20:20)
[2016-09-01] MEDS: INSULIN GLARGINE SOLOSTAR 100 UNITS/ML 3 ML PEN SC SCH ×2 (07:45→20:23)
[2016-09-01] MEDS: AMLODIPINE BESYLATE 5 MG TAB PO SCH (07:50)
[2016-09-01] MEDS: PANTOprazole SOD 40 MG TAB PO SCH (07:51)
[2016-09-01] MEDS: CLONIDINE HCL 0.1 MG TAB PO SCH ×2 (07:51→20:23)
[2016-09-01] MEDS: ASPIRIN 325 MG ECTAB PO SCH (07:51)
[2016-09-01] MEDS: SERTRALINE HCL 50 MG TAB PO SCH (07:51)
[2016-09-01 07:57] LABS: BUN/CREATININE RATIO 14.6 (10-20); CREATININE 1.6 mg/dl (0.60-1.20); POTASSIUM 3.6 mmol/L (3.5-5.1)
[2016-09-01 08:48] VITALS: BP 140/48; PULSE 68; TEMP 37.4; O2SAT 90
[2016-09-01] MEDS: CARVEDILOL 12.5 MG TAB PO SCH ×2 (09:00→20:23)
[2016-09-01] MEDS ORDERED: [UNRECOGNIZED DRUG - OTHER] PRN (10:45)
[2016-09-01 11:28] LABS: CALCIUM 8.6 mg/dl (8.5-10.1); CREATININE 1.6 mg/dl (0.60-1.20); POTASSIUM 3.7 mmol/L (3.5-5.1)
[2016-09-01 11:35] VITALS: BP 143/72; PULSE 62; TEMP 37; O2SAT 100
[2016-09-01] MEDS: ERTAPENEM IV 1 GM in SODIUM CHLOR 0.9% AD-VAN 50ML 50 ML IV SCH (12:37)
[2016-09-01 15:24] VITALS: BP 182/82; PULSE 75; TEMP 36.7; O2SAT 97
[2016-09-01 16:00] VITALS: O2SAT 97
--- NOTE | 2016-09-01 17:32 | Progress Note ---
Internal Med Progress Note Date of Service: Sep 01, 2016. Provider Documentation: SUBJECTIVE: resting comfortably slept ok afebrile eating ok no nausea or abdominal pain OBJECTIVE: Vital Signs-as noted below Exam: General-alert and oriented x 3 ENT-normal hearing Neck-no neck masses Lungs-cta b/l no wheezing or crackles Heart-s1 and s2 heard regular rate and rhythm, no murmurs Abdomen-soft bowel sounds present non tender no distension Extremities-no edema no erythema Neuro-alert and awake moves extremities Lab data as noted below. ASSESSMENT & PLAN: 1. Encephalopathy-improved with improvement in electrolyte disturbances and treatment of UTI (hx Zosyn sensitive ESBL E coli/Enterococcus) Hx of ESBL in the past will trate with 10day course of iv invanz. could not place picc line secondary to body habitus will d/w social service for other options. 2. Hypercalcemia-improved with IVF. 3. Hypotonic hypovolemic hyponatremia 2/2 recent GI losses and poor PO intake, holding home Lasix and metolazone. NA 133 today fluids stopped. Appreciate nephrology inputs. 4. ARF 2/2 dehydration-already improving with IVF administration. CR 1.6 today. will f/u. 5. DMII-ISS/Lantus 5 Units BID. ISS. Will monitor. 7. Hypertroponemia likely 2/2 hypertensive heart disease vs kidney dysfunction in setting of elevated BP and severe dehydration- asymptomatic. echo unremarkable. 8. HTN-still uncontrolled, cont Norvasc 10 and Increase hydralazine to QID. on coreg and clonidine ACEI, HCTZ are contraindicated. Cont to monitor. Nutrition- will advance to regular low salt diet. Aspiration precautions DVT prophy-heparin sub q q8 PT, OT eval. Full code. DISPOSITION transfer to medical floor possible d/c in -2days Vital Signs: Date Time Temp Pulse Resp B/P Pulse Ox O2 Delivery O2 Flow Rate FiO2 09/01/16 16:00 97 Room Air 09/01/16 15:24 36.7 75 15 182/82 97 Room Air 09/01/16 11:35 37.0 62 16 143/72 100 Room Air 09/01/16 08:48 37.4 68 18 140/48 90 09/01/16 08:00 Room Air 09/01/16 04:00 Room Air 09/01/16 03:35 36.9 71 20 163/58 96 Room Air 09/01/16 00:00 Room Air 08/31/16 23:33 36.7 76 20 134/46 98 Room Air 08/31/16 20:53 166/48 08/31/16 20:00 Room Air 08/31/16 19:40 36.3 70 19 98 Room Air Lab Results: Results Past 24 Hours Test 08/31/16 18:10 08/31/16 20:15 08/31/16 22:21 09/01/16 06:35 Range/Units Sodium Level 130 132 136-145 mmol/L Potassium Level 3.3 3.2 3.5-5.1 mmol/L Chloride Level 92 94 98-107 mmol/L Carbon Dioxide Level 28 29 21-32 mmol/L Anion Gap 10.0 9.0 3-11 mmol/L Blood Urea Nitrogen 29 29 7-18 mg/dl Creatinine 2.00 1.90 0.60-1.20 mg/dl Est Creatinine Clear Calc Drug Dose 32.6 34.3 ml/min Estimated GFR () 28.4 30.2 Estimated GFR (Non- 24.5 26.1 BUN/Creatinine Ratio 14.3 15.0 10-20 Random Glucose 209 173 70-99 mg/dl Calcium Level 9.6 9.0 8.5-10.1 mg/dl Chemistry Specimen Hemolysis Bedside Glucose 202 211 70-90 mg/dl Test 09/01/16 07:10 09/01/16 10:57 09/01/16 11:26 09/01/16 16:00 Range/Units White Blood Count 8.16 4.8-10.8 K/uL Red Blood Count 3.52 4.2-5.4 M/uL Hemoglobin 10.3 12.0-16.0 g/dL Hematocrit 29.4 37-47 % Mean Corpuscular Volume 83.5 80-100 fL Mean Corpuscular Hemoglobin 29.3 25-34 pg Mean Corpuscular Hemoglobin Concent 35.0 32-36 g/dl Platelet Count 224 130-400 K/uL Mean Platelet Volume 9.5 7.4-10.4 fL Neutrophils (%) (Auto) 61.2 % Lymphocytes (%) (Auto) 26.5 % Monocytes (%) (Auto) 9.2 % Eosinophils (%) (Auto) 2.3 % Basophils (%) (Auto) 0.2 % Neutrophils # (Auto) 4.99 1.4-6.5 K/uL Lymphocytes # (Auto) 2.16 1.2-3.4 K/uL Monocytes # (Auto) 0.75 0.11-0.59 K/uL Eosinophils # (Auto) 0.19 0-0.5 K/uL Basophils # (Auto) 0.02 0-0.2 K/uL RDW Standard Deviation 41.3 36.4-46.3 fL RDW Coefficient of Variation 13.5 11.5-14.5 % Immature Granulocyte % (Auto) 0.6 % Immature Granulocyte # (Auto) 0.05 0.00-0.02 K/uL Sodium Level 135 133 136-145 mmol/L Potassium Level 3.6 3.7 3.5-5.1 mmol/L Chloride Level 98 99 98-107 mmol/L Carbon Dioxide Level 26 24 21-32 mmol/L Anion Gap 11.0 10.0 3-11 mmol/L Blood Urea Nitrogen 23 22 7-18 mg/dl Creatinine 1.60 1.60 0.60-1.20 mg/dl Est Creatinine Clear Calc Drug Dose 41.6 41.6 ml/min Estimated GFR () 37.2 37.2 Estimated GFR (Non- 32.1 32.1 BUN/Creatinine Ratio 14.6 14.0 10-20 Random Glucose 195 163 70-99 mg/dl Calcium Level 9.0 8.6 8.5-10.1 mg/dl Bedside Glucose 164 70-90 mg/dl Test 09/01/16 16:31 Range/Units Bedside Glucose 160 70-90 mg/dl
[2016-09-01 17:59] LABS: BUN/CREATININE RATIO 15.2 (10-20); CALCIUM 8.9 mg/dl (8.5-10.1); CREATININE 1.4 mg/dl (0.60-1.20); POTASSIUM 3.4 mmol/L (3.5-5.1)
[2016-09-01 20:29] VITALS: BP 178/105; PULSE 63
[2016-09-01 23:21] LABS: BUN/CREATININE RATIO 15.5 (10-20); CALCIUM 8.5 mg/dl (8.5-10.1); CREATININE 1.3 mg/dl (0.60-1.20); POTASSIUM 3.4 mmol/L (3.5-5.1)
[2016-09-02] VITALS (7 sets, daily range): BP systolic 153–199; BP diastolic 74–82; PULSE 53–115; TEMP 36.7–37; O2SAT 93–99
[2016-09-02] MEDS: ONDANSETRON INJ 2 MG/ML 2 ML VIAL IV PRN (00:50)
[2016-09-02 06:12] LABS: BASO % 0.1 %; BASO ABS # 0.01 K/uL (0-0.2); COMPLETE YES; EOS % 3.3 %; IG% 0.4 %; LYMPH % 29.9 %; LYMPH ABS # 2.15 K/uL (1.2-3.4); MEAN CELL VOLUME 85.3 fL (80-100); MEAN CORPUSCULAR HEMOGLOBIN 29.4 pg (25-34); MEAN CORPUSCULAR HGB CONC 34.5 g/dl (32-36); MONO % 8.9 %; NEUT % 57.4 %; PLATELET COUNT 229 K/uL (130-400); WHITE BLOOD COUNT 7.18 K/uL (4.8-10.8)
[2016-09-02 06:43] LABS: BUN/CREATININE RATIO 13.8 (10-20); CALCIUM 8.5 mg/dl (8.5-10.1); CREATININE 1.3 mg/dl (0.60-1.20); POTASSIUM 3.5 mmol/L (3.5-5.1)
[2016-09-02] MEDS: HEPARIN SOD 5000 UNIT/0.5 ML CARP SQ SCH ×3 (06:45→20:30)
[2016-09-02] MEDS: CARVEDILOL 12.5 MG TAB PO SCH ×2 (08:34→19:49)
[2016-09-02] MEDS: CLONIDINE HCL 0.1 MG TAB PO SCH ×2 (08:34→19:50)
[2016-09-02] MEDS: ASPIRIN 325 MG ECTAB PO SCH (08:34)
[2016-09-02] MEDS: AMLODIPINE BESYLATE 5 MG TAB PO SCH (08:35)
[2016-09-02] MEDS: PANTOprazole SOD 40 MG TAB PO SCH (08:36)
[2016-09-02] MEDS: SERTRALINE HCL 50 MG TAB PO SCH (08:36)
[2016-09-02] MEDS: INSULIN ASPART 100 UNITS/ML 3 ML PEN SC SCH ×4 (08:45→21:21)
[2016-09-02] MEDS: INSULIN GLARGINE SOLOSTAR 100 UNITS/ML 3 ML PEN SC SCH ×2 (08:46→20:30)
[2016-09-02] MEDS: ERTAPENEM IV 1 GM in SODIUM CHLOR 0.9% AD-VAN 50ML 50 ML IV SCH (10:59)
[2016-09-02 11:37] LABS: BLOOD UREA NITROGEN 19 mg/dl (7-18); BUN/CREATININE RATIO 14.3 (10-20); CALCIUM 8.6 mg/dl (8.5-10.1); CARBON DIOXIDE 26 mmol/L (21-32); CHLORIDE 100 mmol/L (98-107); GLUCOSE 249 mg/dl (70-99); SODIUM 135 mmol/L (136-145)
[2016-09-02] MEDS ORDERED: FUROSEMIDE 40 MG TAB PO PRN (14:30)
[2016-09-02] MEDS ORDERED: DOCUSATE SODIUM/SENNA 50/8.6MG TAB PO PRN (14:30)
[2016-09-02] MEDS ORDERED: HYDROCODONE/ACETAMOPHEN 5/325MG TAB PO PRN (14:45)
[2016-09-02] MEDS ORDERED: NITROGLYCERIN 0.4 MG SL PER TAB CHARGE UT PRN (14:45)
[2016-09-02] MEDS ORDERED: GABAPENTIN 600 MG TAB PO ONE (14:45)
[2016-09-02] MEDS ORDERED: FUROSEMIDE INJ 40 MG in SYRINGE 0 ML IV ONE (15:00)
[2016-09-02 17:49] LABS: BUN/CREATININE RATIO 14.3 (10-20); CALCIUM 8.8 mg/dl (8.5-10.1); CREATININE 1.3 mg/dl (0.60-1.20); POTASSIUM 3.7 mmol/L (3.5-5.1)
--- NOTE | 2016-09-02 18:28 | Progress Note ---
Internal Med Progress Note Date of Service: Sep 02, 2016. Provider Documentation: SUBJECTIVE: resting comfortably on the chair afebrile eating ok denies any sob or cough OBJECTIVE: Vital Signs-as noted below Exam: General-alert and oriented x 3 ENT-normal hearing Neck-no neck masses Lungs-cta b/l no wheezing or crackles Heart-s1 and s2 heard regular rate and rhythm, no murmurs Abdomen-soft bowel sounds present non tender no distension Extremities-no edema no erythema Neuro-alert and awake moves extremities Lab data as noted below. ASSESSMENT & PLAN: 1. Encephalopathy-improved with improvement in electrolyte disturbances and treatment of UTI (hx Zosyn sensitive ESBL E coli/Enterococcus) Hx of ESBL in the past will treat with 10day course of iv invanz. could not place picc line secondary to body habitus will d/w social service for other options. possible d/c in am with abx in [facility] 2. Hypercalcemia-improved with IVF. 3. Hypotonic hypovolemic hyponatremia 2/2 recent GI losses and poor PO intake, holding home Lasix and metolazone. NA 135 today fluids stopped. Appreciate nephrology inputs. 4. ARF 2/2 dehydration-already improving with IVF administration. CR 1.3 today. will f/u. 5. DMII-ISS/Lantus 5 Units BID. ISS. Will monitor. 7. Hypertroponemia likely 2/2 hypertensive heart disease vs kidney dysfunction in setting of elevated BP and severe dehydration- asymptomatic. echo unremarkable. 8. HTN-still uncontrolled, cont Norvasc 10 and Increase hydralazine to QID. on coreg and clonidine ACEI, HCTZ are contraindicated.iv hydralazine prn Cont to monitor. Nutrition- will advance to regular low salt diet. Aspiration precautions DVT prophy-heparin sub q q8 PT, OT eval. Full code. DISPOSITION transfer to medical floor possible d/c in -2days Vital Signs: Date Time Temp Pulse Resp B/P Pulse Ox O2 Delivery O2 Flow Rate FiO2 09/02/16 15:12 36.7 53 15 165/78 99 Room Air 09/02/16 15:02 Room Air 09/02/16 08:30 92 20 09/02/16 08:30 96 Room Air 09/02/16 08:04 36.9 115 15 153/80 96 1/4/17 00:28 37.0 61 18 186/82 93 Room Air 09/02/16 00:00 Room Air 09/01/16 20:29 63 178/105 Lab Results: Results Past 24 Hours Test 09/01/16 20:19 09/01/16 22:45 09/02/16 05:17 09/02/16 07:52 Range/Units Bedside Glucose 152 198 70-90 mg/dl Sodium Level 136 136 136-145 mmol/L Potassium Level 3.4 3.5 3.5-5.1 mmol/L Chloride Level 100 101 98-107 mmol/L Carbon Dioxide Level 27 24 21-32 mmol/L Anion Gap 9.0 11.0 3-11 mmol/L Blood Urea Nitrogen 20 18 7-18 mg/dl Creatinine 1.30 1.30 0.60-1.20 mg/dl Est Creatinine Clear Calc Drug Dose 51.2 51.2 ml/min Estimated GFR () 47.8 47.8 Estimated GFR (Non- 41.2 41.2 BUN/Creatinine Ratio 15.5 13.8 10-20 Random Glucose 153 200 70-99 mg/dl Calcium Level 8.5 8.5 8.5-10.1 mg/dl White Blood Count 7.18 4.8-10.8 K/uL Red Blood Count 3.40 4.2-5.4 M/uL Hemoglobin 10.0 12.0-16.0 g/dL Hematocrit 29.0 37-47 % Mean Corpuscular Volume 85.3 80-100 fL Mean Corpuscular Hemoglobin 29.4 25-34 pg Mean Corpuscular Hemoglobin Concent 34.5 32-36 g/dl Platelet Count 229 130-400 K/uL Mean Platelet Volume 10.0 7.4-10.4 fL Neutrophils (%) (Auto) 57.4 % Lymphocytes (%) (Auto) 29.9 % Monocytes (%) (Auto) 8.9 % Eosinophils (%) (Auto) 3.3 % Basophils (%) (Auto) 0.1 % Neutrophils # (Auto) 4.11 1.4-6.5 K/uL Lymphocytes # (Auto) 2.15 1.2-3.4 K/uL Monocytes # (Auto) 0.64 0.11-0.59 K/uL Eosinophils # (Auto) 0.24 0-0.5 K/uL Basophils # (Auto) 0.01 0-0.2 K/uL RDW Standard Deviation 43.2 36.4-46.3 fL RDW Coefficient of Variation 13.9 11.5-14.5 % Immature Granulocyte % (Auto) 0.4 % Immature Granulocyte # (Auto) 0.03 0.00-0.02 K/uL Test 09/02/16 10:05 09/02/16 11:52 09/02/16 12:22 09/02/16 16:19 Range/Units Sodium Level 135 136-145 mmol/L Potassium Level 3.7 3.5-5.1 mmol/L Chloride Level 100 98-107 mmol/L Carbon Dioxide Level 26 21-32 mmol/L Anion Gap 9.0 3-11 mmol/L Blood Urea Nitrogen 19 7-18 mg/dl Creatinine 1.30 0.60-1.20 mg/dl Est Creatinine Clear Calc Drug Dose 51.2 ml/min Estimated GFR () 47.8 Estimated GFR (Non- 41.2 BUN/Creatinine Ratio 14.3 10-20 Random Glucose 249 70-99 mg/dl Calcium Level 8.6 8.5-10.1 mg/dl Bedside Glucose 226 177 70-90 mg/dl Test 09/02/16 17:20 Range/Units Sodium Level 135 136-145 mmol/L Potassium Level 3.7 3.5-5.1 mmol/L Chloride Level 101 98-107 mmol/L Carbon Dioxide Level 25 21-32 mmol/L Anion Gap 9.0 3-11 mmol/L Blood Urea Nitrogen 19 7-18 mg/dl Creatinine 1.30 0.60-1.20 mg/dl Est Creatinine Clear Calc Drug Dose 51.2 ml/min Estimated GFR () 47.8 Estimated GFR (Non- 41.2 BUN/Creatinine Ratio 14.3 10-20 Random Glucose 179 70-99 mg/dl Calcium Level 8.8 8.5-10.1 mg/dl
[2016-09-02] MEDS: GABAPENTIN 600 MG TAB PO SCH (20:31)
[2016-09-02] MEDS ORDERED: CLONAZEPAM 1 MG TAB PO SCH (21:00)
[2016-09-02 23:17] LABS: BUN/CREATININE RATIO 16.7 (10-20); CALCIUM 8.3 mg/dl (8.5-10.1); CREATININE 1.2 mg/dl (0.60-1.20); POTASSIUM 3.5 mmol/L (3.5-5.1)
[2016-09-03] VITALS: BP 174/79; PULSE 58; PULSE 92
[2016-09-03 00:36] VITALS: BP 173/77; PULSE 51; TEMP 36.4; O2SAT 97
[2016-09-03] MEDS: HEPARIN SOD 5000 UNIT/0.5 ML CARP SQ SCH (05:45)
[2016-09-03 06:07] LABS: BASO % 0.2 %; BASO ABS # 0.02 K/uL (0-0.2); COMPLETE YES; EOS % 2.9 %; HEMATOCRIT 30.6 % (37-47); IG% 0.6 %; LYMPH % 38.9 %; LYMPH ABS # 3.26 K/uL (1.2-3.4); MEAN CELL VOLUME 84.3 fL (80-100); MEAN CORPUSCULAR HEMOGLOBIN 29.2 pg (25-34); MEAN CORPUSCULAR HGB CONC 34.6 g/dl (32-36); MEAN PLATELET VOLUME 9.8 fL (7.4-10.4); MONO % 8.2 %; NEUT % 49.2 %; PLATELET COUNT 245 K/uL (130-400); RED BLOOD COUNT 3.63 M/uL (4.2-5.4); WHITE BLOOD COUNT 8.38 K/uL (4.8-10.8)
[2016-09-03 06:45] LABS: CALCIUM 8.5 mg/dl (8.5-10.1); CREATININE 1.2 mg/dl (0.60-1.20); POTASSIUM 3.6 mmol/L (3.5-5.1)
[2016-09-03 07:44] VITALS: BP 184/75; PULSE 60; TEMP 36.7; O2SAT 96
[2016-09-03] MEDS ORDERED: FLUTICASONE PROPIONATE NA SPR 16 GM BTL NAE SCH (08:00)
[2016-09-03] MEDS ORDERED: ROSUVASTATIN CALCIUM 20 MG TAB PO SCH ×2 (08:00→20:00)
[2016-09-03] MEDS ORDERED: FENOFIBRATE 145 MG TAB PO SCH (08:00)
[2016-09-03 08:45] VITALS: O2SAT 96
[2016-09-03] MEDS: GABAPENTIN 600 MG TAB PO SCH (09:06)
[2016-09-03] MEDS: CARVEDILOL 12.5 MG TAB PO SCH (09:08)
[2016-09-03] MEDS: PANTOprazole SOD 40 MG TAB PO SCH (09:08)
[2016-09-03] MEDS: ASPIRIN 325 MG ECTAB PO SCH (09:09)
[2016-09-03] MEDS: AMLODIPINE BESYLATE 5 MG TAB PO SCH (09:09)
[2016-09-03] MEDS: SERTRALINE HCL 50 MG TAB PO SCH (09:09)
[2016-09-03] MEDS: CLONIDINE HCL 0.1 MG TAB PO SCH (09:09)
[2016-09-03] MEDS: INSULIN ASPART 100 UNITS/ML 3 ML PEN SC SCH ×2 (09:14→12:53)
[2016-09-03] MEDS: INSULIN GLARGINE SOLOSTAR 100 UNITS/ML 3 ML PEN SC SCH (09:14)
[2016-09-03] MEDS: ERTAPENEM IV 1 GM in SODIUM CHLOR 0.9% AD-VAN 50ML 50 ML IV SCH (11:54)
[2016-09-03] MEDS ORDERED: GABAPENTIN 300 MG CAP PO SCH (12:00)
[2016-09-03 12:08] VITALS: BP 124/79; PULSE 52; TEMP 36.6
[2016-09-03] MEDS ORDERED: APR25 PO (14:46)
[2016-09-03] MEDS ORDERED: MRLP17X PO ×3 (14:46→15:08)
[2016-09-03] MEDS ORDERED: AMLO-114 PO ×3 (14:46→15:08)
[2016-09-03] MEDS ORDERED: METO2.5T PO ×2 (14:55)
[2016-09-03] MEDS ORDERED: SERT50TA PO (14:55)
[2016-09-03] MEDS ORDERED: FURO40TA3 PO ×2 (14:55)
[2016-09-03] MEDS ORDERED: ONDA8TAB12 PO (14:55)
[2016-09-03] MEDS ORDERED: RANI150T3 PO (14:55)
[2016-09-03] MEDS ORDERED: TOPI50TA24 PO (14:57)
--- NOTE | 2016-09-03 15:01 | Discharge Instructions ---
Discharge Instructions Admission Reason for Admission: Hyponatremia Discharge Discharge Diagnosis / Problem: ENCEPHALOPATHY, HYPONATREMIA, UTI WITH ESBL E.COLI Discharge Goals Goal(s): Decrease discomfort, Improve function Activity Recommendations Activity Limitations: resume your previous activity . Instructions / Follow-Up Instructions / Follow-Up FOLLOWUP WITH FAMILY DOCTOR ON Aug AT 11:10AM FOLLOWUP BLOOD PRESSURE AND HEART RATE(PULSE) WITH FAMILY DOCTOR. LAB: BMP IN ONE WEEK AND FOLLOW RESULTS WITH FAMILY DOCTOR. TO COMPLETE IV ANTIBIOTIC COURSE (PRESCRIBED). PLEASE GO THROUGH YOUR MEDICATION LIST CAREFULLY. Current Hospital Diet Patient's current hospital diet: Low Sodium Diet (2gm Na), Low Lactose Diet, Regular Diet Discharge Diet Recommended Diet: AHA Diet (Heart Healthy), Diabetes Type 2 Diet Pending Studies Studies pending at discharge: no Laboratory Results Hemoglobin A1c Test 08/30/16 03:34 Range/Units Estimated Average Glucose 186 mg/dl Hemoglobin A1c 8.1 H 4.5-5.6 % Medical Emergencies . Who to Call and When: Medical Emergencies: If at any time you feel your situation is an emergency, please call 911 immediately. . Non-Emergent Contact Non-Emergency issues call your: Primary Care Provider . . "Provider Documentation" section prepared by Daniel Basurto. VTE Core Measure Inpt VTE Proph given/why not?: Unfractionated heparin SQ
[2016-09-03] MEDS ORDERED: ERTA1INJ IV ×2 (15:03)
[2016-09-03] MEDS ORDERED: CRG125 PO ×2 (15:03)
[2016-09-03] MEDS ORDERED: LCTX PO ×2 (15:03)
[2016-09-03 15:09] VITALS: BP 124/79; PULSE 52; TEMP 36.6; O2SAT 96
--- NOTE | 2016-09-03 17:04 | Progress Note ---
Internal Med Progress Note Date of Service: Sep 03, 2016. Provider Documentation: SUBJECTIVE: resting comfortably on the chair feeling much better no sob afebrile want to go home OBJECTIVE: Vital Signs-as noted below Exam: General-alert and oriented x 3 ENT-normal hearing Neck-no neck masses Lungs-cta b/l no wheezing or crackles Heart-s1 and s2 heard regular rate and rhythm, no murmurs Abdomen-soft bowel sounds present non tender no distension Extremities-pedal edema present no erythema Neuro-alert and awake moves extremities Lab data as noted below. ASSESSMENT & PLAN: 1. Encephalopathy-improved with improvement in electrolyte disturbances and treatment of UTI (hx Zosyn sensitive ESBL E coli/Enterococcus) Hx of ESBL in the past will treat with 10day course of iv invanz. could not place picc line secondary to body habitus will d/w social service for other options. discharged with daily abx in [facility] for one more week 2. Hypercalcemia-improved with IVF. 3. Hypotonic hypovolemic hyponatremia 2/2 recent GI losses and poor PO intake, holding home Lasix and metolazone. NA 135 today fluids stopped. Appreciate nephrology inputs.f/u labs with pcp 4. ARF 2/2 dehydration-already improving with IVF administration. CR 1.2 today. will f/u. 5. DMII-ISS/Lantus 5 Units BID. ISS. Will monitor.d/c on home meds.f/u with pcp hba1c 8.1 7. Hypertroponemia likely 2/2 hypertensive heart disease vs kidney dysfunction in setting of elevated BP and severe dehydration- asymptomatic. echo unremarkable. 8. HTN-still uncontrolled, discharged on norvasc 10mg daily coreg 12.5mg bid clonidine 0.2mg bid hydralazine 50mg tid close f/u with pcp. Nutrition- will advance to regular low salt diet. Aspiration precautions discharged home with home health Vital Signs: Date Time Temp Pulse Resp B/P Pulse Ox O2 Delivery O2 Flow Rate FiO2 09/03/16 15:09 36.6 52 20 96 Room Air 09/03/16 12:08 36.6 52 20 124/79 09/03/16 08:45 96 Room Air 09/03/16 07:44 36.7 60 18 184/75 96 Room Air 09/03/16 00:36 36.4 51 18 173/77 97 Room Air 09/03/16 00:00 Room Air 09/03/16 00:00 92 20 09/03/16 00:00 58 174/79 09/02/16 20:27 60 181/79 09/02/16 20:00 92 20 09/02/16 20:00 Room Air 09/02/16 19:48 64 199/74 Lab Results: Results Past 24 Hours Test 09/02/16 17:20 09/02/16 20:39 09/02/16 22:45 09/03/16 05:30 Range/Units Sodium Level 135 138 137 136-145 mmol/L Potassium Level 3.7 3.5 3.6 3.5-5.1 mmol/L Chloride Level 101 102 102 98-107 mmol/L Carbon Dioxide Level 25 27 27 21-32 mmol/L Anion Gap 9.0 9.0 8.0 3-11 mmol/L Blood Urea Nitrogen 19 20 18 7-18 mg/dl Creatinine 1.30 1.20 1.20 0.60-1.20 mg/dl Est Creatinine Clear Calc Drug Dose 51.2 55.5 55.5 ml/min Estimated GFR () 47.8 52.7 52.7 Estimated GFR (Non- 41.2 45.4 45.4 BUN/Creatinine Ratio 14.3 16.7 15.0 10-20 Random Glucose 179 185 167 70-99 mg/dl Calcium Level 8.8 8.3 8.5 8.5-10.1 mg/dl Bedside Glucose 202 70-90 mg/dl White Blood Count 8.38 4.8-10.8 K/uL Red Blood Count 3.63 4.2-5.4 M/uL Hemoglobin 10.6 12.0-16.0 g/dL Hematocrit 30.6 37-47 % Mean Corpuscular Volume 84.3 80-100 fL Mean Corpuscular Hemoglobin 29.2 25-34 pg Mean Corpuscular Hemoglobin Concent 34.6 32-36 g/dl Platelet Count 245 130-400 K/uL Mean Platelet Volume 9.8 7.4-10.4 fL Neutrophils (%) (Auto) 49.2 % Lymphocytes (%) (Auto) 38.9 % Monocytes (%) (Auto) 8.2 % Eosinophils (%) (Auto) 2.9 % Basophils (%) (Auto) 0.2 % Neutrophils # (Auto) 4.12 1.4-6.5 K/uL Lymphocytes # (Auto) 3.26 1.2-3.4 K/uL Monocytes # (Auto) 0.69 0.11-0.59 K/uL Eosinophils # (Auto) 0.24 0-0.5 K/uL Basophils # (Auto) 0.02 0-0.2 K/uL RDW Standard Deviation 42.2 36.4-46.3 fL RDW Coefficient of Variation 13.8 11.5-14.5 % Immature Granulocyte % (Auto) 0.6 % Immature Granulocyte # (Auto) 0.05 0.00-0.02 K/uL Test 09/03/16 08:23 09/03/16 12:28 Range/Units Bedside Glucose 165 189 70-90 mg/dl
--- NOTE | 2016-09-03 20:05 | Discharge Summary ---
Discharge Summary Admission Date: Aug 30, 2016 at 02:46 Discharge Date: Sep 03, 2016 Discharge Disposition: Home with services Principal Diagnosis: UTI WITH ESBL E.COLI HYPONATREMIA Secondary Diagnoses/Problems: hypertension, DM2, insulin requiring, CRI (baseline creatinine 1.7-1.9) history of ESBL, enterococcus E. coli, chronic anemia (baseline hemoglobin 10), mood/anxiety disorder, Procedures: CXR HEAD CT Medication Reconciliation New Medications: Amlodipine (Norvasc) 10 Mg Tab 10 MG PO DAILY, #30 TAB 2 Refills Ertapenem Sodium (Invanz) 1 Gm Inj 1 GM IV DAILY for 7 Days, VIAL Lactobacillus Acidophilus (Lactinex) Tab 2 TAB PO TID for 10 Days, TAB Polyethylene (Miralax) 17 Gm Pow 17 GM PO DAILY PRN for Constipation for 30 Days, 1 Refill Continued Medications: Antipyrine-Benzocaine (Antipyrine/Benzocaine) 1 Mami Mami 2 DROPS OPR QID PRN for ear pain Aspirin (Aspirin) 325 Mg Tab 325 MG PO DAILY Carvedilol (Carvedilol) 12.5 Mg Tab 12.5 MG PO BID for 30 Days, TAB 1 Refill (This prescription has been renewed) Cholecalciferol (Vitamin D) 1,000 Inter.unit Tab 1000 INTER.UNIT PO DAILY, TAB Clonazepam (Klonopin) 1 Mg Tab 1 MG PO HS, TAB Clonidine Hcl (Catapres) 0.2 Mg Tab 0.2 MG PO BID, TAB Esomeprazole Magnesium (Nexium) 40 Mg Capcr 40 MG PO DAILY Fenofibrate (Tricor ) 145 Mg Tab 145 MG PO DAILY Fluticasone Propionate (Nasal) (Flonase) 50 Mcg/Act Spr 2 SPRAYS ANSELMO DAILY Furosemide (Lasix) 40 Mg Tab 1 TAB PO WK PRN for fluid for 30 Days, #30 TAB 5 Refills take along with zaroxyln Gabapentin (Neurontin *) 600 Mg Cap 600 MG PO Q12 Gabapentin (Neurontin) 300 Mg Cap 300 MG PO midday Hydralazine HCl (Hydralazine HCl) 50 Mg Tab 50 MG PO TID for 30 Days, TAB Hydrocodone/Acetaminophen 5MG/325MG ([place] 5MG/325MG) Tab 2 TABLETS PO BID PRN for Pain, TAB PRN PAIN Insulin Glargine (Lantus Solostar Pen) 100 Unit/ Inj 24 UNIT SQ HS for 60 Days, #15 ML 5 Refills Insulin Lispro (Human) (Humalog Kwikpen) 100 Unit/Ml Inj 4 units for bsg 150-200 6 units for bsg 201-250 8 units for bsg 251-300 10 units for bsg 301-350 Metolazone (Zaroxolyn) 2.5 Mg Tab 2.5 MG PO WK for 15 Days, TAB Misc Natural Products (Lutein Vision Blend) 1 Cap Cap 1 CAP PO DAILY Nitroglycerin (Nitrostat) 0.4 Mg Tab 0.4 MG UT UD PRN for Chest Pain Ondansetron Hcl (Zofran) 8 Mg Tab 8 MG PO TID PRN for Nausea, #30 TAB Ranitidine Hcl (Zantac) 150 Mg Tab 1 TAB PO BID for 30 Days, #60 TAB 3 Refills Rosuvastatin Calcium (Crestor *) 10 Mg Tab 40 MG PO DAILY Senna/Docusate Sod (Senokot S) 1 Tab Tab 2 TAB PO HS PRN, #30 TAB 1 Refill Sertraline (Zoloft) 50 Mg Tab 0.5 TAB PO DAILY for 30 Days, #30 TAB 2 Refills Topiramate (Topamax) 50 Mg Tab 0.5 TAB PO BID for 30 Days, #60 TAB 1 Refill Discontinued Medications: Amlodipine Besylate (Norvasc) 10 Mg Tab 5 MG PO DAILY, TAB Nitrofurantoin Monohyd Macrocr (Nitrofurantoin Monohydrat) 100 Mg Cap 100 MG PO BID for 7 Days, #14 CAP Admission Information HPI (per Admitting provider): Medical history significant for hypertension, DM2, insulin requiring, CRI (baseline creatinine 1.7-1.9) history of ESBL, enterococcus E. coli, chronic anemia (baseline hemoglobin 10), mood/anxiety disorder, legal blindess as per records. Recent confinement 03/2016 for E.coli/enterococcus UTI. Patient completed Zosyn treatment as per ID recs. The last few days, the patient had not been feeling well, had a GI bug, symptoms improving. Patient noted by sister to be confused, not very responsive, poor appetite. Patient admits to having bladder discomfort, symptoms of a UTI. At the Emergency Room, sodium noted to be 124. NSS given. Patient received Zosyn for UTI. Patient's mentation much improved as per sister. Physical Exam (per Admitting): VITAL SIGNS: Blood pressure was noted to be 234/121, later 180/90, pulse rate 72, RR 14, temperature 36.7, sats 94 on room air. GENERAL: Noted to be obese, oriented to year, coherent. no respiratory distress. SKIN pallor HEENT: Pale palpebrae conjunctivae. Dry mucosa. NECK: Short neck. LUNGS: Decreased breath sounds. HEART: Regular rate and rhythm. ABDOMEN: Some distention, nontender. EXTREMITIES: Bilateral lower extremity edema no edema. NEUROLOGIC: Coherent but lethargic Hospital Course 1. Encephalopathy-improved with improvement in electrolyte disturbances and treatment of UTI (hx Zosyn sensitive ESBL E coli/Enterococcus) Hx of ESBL in the past will treat with 10day course of iv invanz. could not place picc line secondary to body habitus will d/w social service for other options. discharged with daily abx in [facility] for one more week 2. Hypercalcemia-improved with IVF. 3. Hypotonic hypovolemic hyponatremia 2/2 recent GI losses and poor PO intake, holding home Lasix and metolazone. NA 135 today fluids stopped. Appreciate nephrology inputs.f/u labs with pcp 4. ARF 2/2 dehydration-already improving with IVF administration. CR 1.2 today. will f/u. 5. DMII-ISS/Lantus 5 Units BID. ISS. Will monitor.d/c on home meds.f/u with pcp hba1c 8.1 7. Hypertroponemia likely 2/2 hypertensive heart disease vs kidney dysfunction in setting of elevated BP and severe dehydration- asymptomatic. echo unremarkable. 8. HTN-still uncontrolled, discharged on norvasc 10mg daily coreg 12.5mg bid clonidine 0.2mg bid hydralazine 50mg tid close f/u with pcp. Nutrition- will advance to regular low salt diet. Aspiration precautions discharged home with home health Total time spent on discharge = 40MINUTES This includes examination of the patient, discharge planning, medication reconciliation, and communication with other providers. Discharge Instructions Discharge Instructions Admission Reason for Admission: Hyponatremia Discharge Discharge Diagnosis / Problem: ENCEPHALOPATHY, HYPONATREMIA, UTI WITH ESBL E.COLI Discharge Goals Goal(s): Decrease discomfort, Improve function Activity Recommendations Activity Limitations: resume your previous activity . Instructions / Follow-Up Instructions / Follow-Up FOLLOWUP WITH FAMILY DOCTOR ON Aug AT 11:10AM FOLLOWUP BLOOD PRESSURE AND HEART RATE(PULSE) WITH FAMILY DOCTOR. LAB: BMP IN ONE WEEK AND FOLLOW RESULTS WITH FAMILY DOCTOR. TO COMPLETE IV ANTIBIOTIC COURSE (PRESCRIBED). PLEASE GO THROUGH YOUR MEDICATION LIST CAREFULLY. Current Hospital Diet Patient's current hospital diet: Low Sodium Diet (2gm Na), Low Lactose Diet, Regular Diet Discharge Diet Recommended Diet: AHA Diet (Heart Healthy), Diabetes Type 2 Diet Pending Studies Studies pending at discharge: no Laboratory Results Hemoglobin A1c Test 08/30/16 03:34 Range/Units Estimated Average Glucose 186 mg/dl Hemoglobin A1c 8.1 H 4.5-5.6 % Medical Emergencies . Who to Call and When: Medical Emergencies: If at any time you feel your situation is an emergency, please call 911 immediately. . Non-Emergent Contact Non-Emergency issues call your: Primary Care Provider . . "Provider Documentation" section prepared by Daniel Basurto. VTE Core Measure Inpt VTE Proph given/why not?: Unfractionated heparin SQ
[2016-09-10] MEDS ORDERED: HYDR-5688 PO ×2 (16:50)
[2016-09-10] MEDS ORDERED: LASIX PO ×2 (16:53)
== END 2016-09-03 16:15 | disposition home or self-care (01) | DRG 643 ==
LOC: CANRESERV → ENRESERVTM → ENRESERVDT → EDBD 00:55 → C.EDB 00:56 → C.2E 02:46 → UNDOADMIN 02:46 → C.4E 09-01 11:22
PROVIDERS: ADMIT Internal Medicine; ATTEND Internal Medicine
DX: E22.2 Syndrome of inappropriate secretion of antidiuretic hormone (principal); G93.40 Encephalopathy, unspecified; N17.9 Acute kidney failure, unspecified; N39.0 Urinary tract infection, site not specified; Z68.42 Body mass index [BMI] 45.0-49.9, adult; E11.22 Type 2 diabetes mellitus with diabetic chronic kidney disease; Z79.4 Long term (current) use of insulin; F41.9 Anxiety disorder, unspecified; Z90.49 Acquired absence of other specified parts of digestive tract; Z90.710 Acquired absence of both cervix and uterus; Z79.899 Other long term (current) drug therapy; Z79.82 Long term (current) use of aspirin; Z82.49 Family history of ischemic heart disease and other diseases of the circulatory system; Z83.3 Family history of diabetes mellitus; Z84.89 Family history of other specified conditions; E87.6 Hypokalemia; E83.52 Hypercalcemia; I13.10 Hypertensive heart and chronic kidney disease without heart failure, with stage 1 through stage 4 chronic kidney disease, or unspecified chronic kidney disease; B96.20 Unspecified Escherichia coli [E. coli] as the cause of diseases classified elsewhere; D64.9 Anemia, unspecified; I16.0 Hypertensive urgency; E66.9 Obesity, unspecified; E86.0 Dehydration; H54.8 Legal blindness, as defined in USA; Z88.8 Allergy status to other drugs, medicaments and biological substances; Z88.2 Allergy status to sulfonamides

== ENCOUNTER 2016-09-07 09:05 | Inpatient (IN) | payer OTHER ==
[~2016-09-07] VITALS: Ht 152.4 cm; Wt 124.1 kg
[~2016-09-07 09:05] MED LIST changes: +AMLO-114 PO; +APR25 PO; +ERTA1INJ IV; +LCTX PO; +METO2.5T PO; +MRLP17X PO; +ONDA8TAB12 PO; +RANI150T3 PO; +TOPI50TA24 PO
[2016-09-07] MEDS ORDERED: MoRPHine SULFATE 4 MG/ML 1 ML CARP\\VIAL IV STA (09:15)
[2016-09-07] MEDS ORDERED: ONDANSETRON INJ 2 MG/ML 2 ML VIAL IV STA (09:15)
--- NOTE | 2016-09-07 09:17 | EMERGENCY ROOM VISIT NOTE ---
History Report prepared by Pola: Nevaeh Engel Under the Supervision of: Dr. Gavino Akhtar M.D. First contact with patient: 09:08 Chief Complaint: ANKLE PAIN Stated Complaint: ANKLE PAIN/ FALL History of Present Illness The patient is a 71 year old female who presents to the Emergency Room with complaints of a sudden fall that occurred yesterday. The patient states that yesterday she was having difficulty moving her right foot which caused her to fall. She states that yesterday she was dragging her foot with ambulation. The patient states that her right foot buckled under her with the fall. She notes that her right ankle is painful due to the fall. The patient's friend notes that the patient became weak yesterday which caused her fall. The patient notes that she was recently evaluated in the hospital for a UTI. She states that she was also taken off her Coumadin at this time. Source of History: patient, friend Onset: yesterday Position: other (global) Quality: other (fall) Timing: other (sudden) Associated Symptoms: + weakness Note: Associated Symptoms: right ankle pain, difficulty ambulating, dragging foot. Review of Systems See HPI for pertinent positives & negatives. A total of 10 systems reviewed and were otherwise negative. Past Medical & Surgical Medical Problems: (1) Adjustment disorder (2) CKD (chronic kidney disease), stage III (3) GERD (gastroesophageal reflux disease) (4) HLD (hyperlipidemia) (5) Hypertension (6) Hypertensive heart disease (7) Hyponatremia (8) IBS (irritable bowel syndrome) (9) Insulin dependent diabetes mellitus (10) Morbid obesity Surgical Problems: (1) H/O hernia repair (2) H/O: (3) H/O: hysterectomy (4) S/P cholecystectomy Family History Cardiac disorder MOTHER Diabetes mellitus FATHER Social History Smoking Status: Never Smoker Alcohol Use: occasionally Drug Use: none Marital Status: Housing Status: lives alone Occupation Status: unemployed Current/Historical Medications Scheduled Amlodipine (Norvasc), 10 MG PO DAILY Aspirin (Aspirin), 325 MG PO DAILY Carvedilol (Carvedilol), 12.5 MG PO BID Cholecalciferol (Vitamin D), 1,000 INTER.UNIT PO DAILY Clonazepam (Klonopin), 1 MG PO HS Clonidine Hcl (Catapres), 0.2 MG PO BID Ertapenem Sodium (Invanz), 1 GM IV DAILY Esomeprazole Magnesium (Nexium), 40 MG PO DAILY Fenofibrate (Tricor ), 145 MG PO DAILY Fluticasone Propionate (Nasal) (Flonase), 2 SPRAYS ANSELMO DAILY Furosemide (Lasix), 40 MG PO DAILY Gabapentin (Neurontin *), 600 MG PO Q12 Gabapentin (Neurontin), 300 MG PO midday Hydralazine HCl (Hydralazine HCl), 50 MG PO TID Insulin Glargine (Lantus Solostar Pen), 46 UNIT SQ HS Lactobacillus Acidophilus (Lactinex), 2 TAB PO TID Metolazone (Zaroxolyn), 2.5 MG PO WK Ranitidine Hcl (Zantac), 1 TAB PO BID Rosuvastatin Calcium (Crestor *), 40 MG PO DAILY Sertraline (Zoloft), 0.5 TAB PO DAILY Topiramate (Topamax), 0.5 TAB PO BID Scheduled PRN Antipyrine-Benzocaine (Antipyrine/Benzocaine), 2 DROPS OPR QID PRN for ear pain Hydrocodone/Acetaminophen 5MG/325MG ([place] 5MG/325MG), 2 TABLETS PO BID PRN for Pain Nitroglycerin (Nitrostat), 0.4 MG UT UD PRN for Chest Pain Ondansetron Hcl (Zofran), 8 MG PO TID PRN for Nausea Polyethylene (Miralax), 17 GM PO DAILY PRN for Constipation Senna/Docusate Sod (Senokot S), 2 TAB PO HS PRN Miscellaneous Medications Insulin Lispro (Human) (Humalog Kwikpen) Allergies Coded Allergies: Metformin (Verified Allergy, Intermediate, causes kidney problems, 09/07/16) Biguanides (Verified Allergy, Unknown, UNSURE, 09/07/16) PATIENT UNSURE IF AN ALLERGY Loratadine (Verified Allergy, Unknown, unsure, 09/07/16) patient unsure if this is an allergy Pseudoephedrine (Unverified Allergy, Unknown, UNKNOWN, 09/07/16) UNSURE IF AN ALLERGY HMG-CoA-R Inhibitors (Verified Adverse Reaction, Mild, GI UPSET, 09/07/16) ? GI UPSET PER DR PATEL Sulfa Antibiotics (Verified Adverse Reaction, Unknown, NAUSEA, 09/07/16) Physical Exam Vital Signs Date Time Temp Pulse Resp B/P Pulse Ox O2 Delivery O2 Flow Rate FiO2 09/07/16 11:30 99 Room Air 09/07/16 10:36 64 16 99 Room Air 09/07/16 09:40 77 09/07/16 09:37 99 Room Air 09/07/16 09:10 37.0 73 16 147/106 97 Room Air Physical Exam GENERAL: Patient is a healthy-appearing well-nourished HEAD: Normocephalic atraumatic EYES: Ocular movements intact pupils equal and react to light OROPHARYNX mucous membranes are moist no exudates present no erythema or edema present NECK: Supple no nuchal rigidity CHEST: Good equal expansion LUNGS: Clear and equal to auscultation CARDIAC: Normal S1 and S2 ABDOMEN: Soft nontender no guarding BACK: No CVA tenderness EXTREMITIES: Right ankle has a large amount of bruising. NEURO: Patient is following commands is answering questions appropriately. Alert and oriented x3 Cranial Nerves 2-12 grossly intact Medical Decision & Procedures ER Provider Diagnostic Interpretation: X-ray results as stated below per interpretation by me and the radiologist: RIGHT FOOT 3 VIEWS CLINICAL HISTORY: Right foot pain. FINDINGS: 3 views of the right foot are obtained. No prior studies are available for comparison at the time of dictation. The skeletal structures are osteopenic. There is a small avulsion injury seen from the lateral aspect of the anterior calcaneus, best seen on the anterior view. No additional acute fracture is clearly identified. There are dorsal and plantar calcaneal enthesophytes. Degenerative spurring seen along the dorsal aspect of the tarsal bones. Mild arthritic change is present the first metatarsophalangeal joint. A small bony erosion is suggested along the medial aspect of the first metatarsal head. Mild diffuse soft tissue edema is noted throughout the foot. There is atherosclerotic calcification of the regional arteries. IMPRESSION: 1. Diffuse soft tissue swelling with acute appearing avulsion fracture from the lateral aspect of the anterior calcaneus. 2. No additional acute fracture is seen. 3. Osteopenia and degenerative change as above. Electronically signed by: Scott Tello M.D. 09/07/2016 9:58 AM Dictated Date/Time: 09/07/2016 9:54 AM SINGLE VIEW CHEST CLINICAL HISTORY: Generalized weakness. FINDINGS: An AP, portable, upright chest radiograph is compared to study dated 08/30/2016. The examination is degraded by portable technique, patient rotation, and large body habitus. The heart is top normal for projection. There is atherosclerotic calcification of the thoracic aorta. Chronic interstitial thickening is unchanged. No airspace consolidation, large pleural effusion, or pneumothorax is seen. The skeletal structures are osteopenic. The bony thorax is grossly intact. Degenerative change is noted throughout the thoracic spine and in the shoulders. IMPRESSION: No acute cardiopulmonary abnormality. Electronically signed by: Scott Tello M.D. 09/07/2016 10:29 AM Dictated Date/Time: 09/07/2016 10:28 AM Laboratory Results 09/07/16 10:05 Red Blood Count 3.29, Mean Corpuscular Volume 83.6, Mean Corpuscular Hemoglobin 29.2, Mean Corpuscular Hemoglobin Concent 34.9, Mean Platelet Volume 10.1, Neutrophils (%) (Auto) 73.2, Lymphocytes (%) (Auto) 17.6, Monocytes (%) (Auto) 7.1, Eosinophils (%) (Auto) 1.7, Basophils (%) (Auto) 0.1, Neutrophils # (Auto) 7.11, Lymphocytes # (Auto) 1.71, Monocytes # (Auto) 0.69, Eosinophils # (Auto) 0.17, Basophils # (Auto) 0.01 09/07/16 10:05 Test 09/07/16 09:35 09/07/16 10:00 09/07/16 10:05 09/07/16 11:31 Bedside Glucose 221 mg/dl (70-90) White Blood Count 9.72 K/uL (4.8-10.8) Red Blood Count 3.29 M/uL (4.2-5.4) Hemoglobin 9.6 g/dL (12.0-16.0) Hematocrit 27.5 % (37-47) Mean Corpuscular Volume 83.6 fL (80-100) Mean Corpuscular Hemoglobin 29.2 pg (25-34) Mean Corpuscular Hemoglobin Concent 34.9 g/dl (32-36) Platelet Count 212 K/uL (130-400) Mean Platelet Volume 10.1 fL (7.4-10.4) Neutrophils (%) (Auto) 73.2 % Lymphocytes (%) (Auto) 17.6 % Monocytes (%) (Auto) 7.1 % Eosinophils (%) (Auto) 1.7 % Basophils (%) (Auto) 0.1 % Neutrophils # (Auto) 7.11 K/uL (1.4-6.5) Lymphocytes # (Auto) 1.71 K/uL (1.2-3.4) Monocytes # (Auto) 0.69 K/uL (0.11-0.59) Eosinophils # (Auto) 0.17 K/uL (0-0.5) Basophils # (Auto) 0.01 K/uL (0-0.2) RDW Standard Deviation 41.2 fL (36.4-46.3) RDW Coefficient of Variation 13.6 % (11.5-14.5) Immature Granulocyte % (Auto) 0.3 % Immature Granulocyte # (Auto) 0.03 K/uL (0.00-0.02) Anion Gap 9.0 mmol/L (3-11) Est Creatinine Clear Calc Drug Dose 45.0 ml/min Estimated GFR () 43.7 Estimated GFR (Non- 37.7 BUN/Creatinine Ratio 13.0 (10-20) Calcium Level 8.1 mg/dl (8.5-10.1) Total Bilirubin 0.5 mg/dl (0.2-1) Direct Bilirubin 0.3 mg/dl (0-0.2) Aspartate Amino Transf (AST/SGOT) 41 U/L (15-37) Alanine Aminotransferase (ALT/SGPT) 33 U/L (12-78) Alkaline Phosphatase 50 U/L (45-117) Total Creatine Kinase 457 U/L (26-192) Total Protein 5.6 gm/dl (6.4-8.2) Albumin 2.5 gm/dl (3.4-5.0) Thyroid Stimulating Hormone (TSH) 0.095 uIu/ml (0.300-4.500) Creatine Kinase MB Ratio (0-3.0) Labs reviewed by ED physician. Medications Administered Medications (Trade) Dose Ordered Sig/Hansel Route Start Time Stop Time Status Last Admin Dose Admin Morphine Sulfate (MoRPHine SULFATE INJ) 2 mg NOW STAT IV 09/07/16 09:15 09/07/16 09:18 DC 09/07/16 09:46 2 MG Ondansetron HCl (Zofran Inj) 4 mg NOW STAT IV 09/07/16 09:15 09/07/16 09:18 DC 09/07/16 09:46 4 MG ECG Indication: weakness, other (fall) Rate (beats per minute): 69 Rhythm: normal sinus Findings: no acute ischemic change, no ectopy, other (old anterior infarct) ED Course 09: Past medical records reviewed. The patient was evaluated in room A11B. A complete history and physical examination was performed. 09: Ordered Zofran Inj 4 mg IV, Morphine Sulfate 2 mg IV. 1108: I reevaluated the patient and she is resting comfortably. I discussed the exam findings with her and I discussed the treatment plan. She verbalized complete understanding and agreement. She will be evaluated for further treatment. 1117: I discussed the patients case with Lana Gilbert. He is going to evaluate the patient for further treatment. Medical Decision Differential diagnosis: Etiologies such as metabolic, infection, hypo/hyperglycemia, electrolyte abnormalities, cardiac sources, intracerebral event, toxicologic, neurologic, as well as others were entertained. This is a 71-year-old female who presents emergency department complaining of bruising to the right foot. The patient appears to have a fracture on x-ray. In addition the patient's sodium has dropped again. I am concerned that this patient will do poorly due to deconditioning if she is sent home. For this reason I did discuss the case with the hospitalist service who agreed to admit the patient. Patient was in agreement with the treatment plan. Consults Time Called: 1106 Consulting Physician: Lana Gilbert Returned Call: [phone] I discussed the patients case with Lana Gilbert. He is going to evaluate the patient for further treatment. Impression Primary Impression: Calcaneal fracture Additional Impression: Hyponatremia Scribe Attestation The scribe's documentation has been prepared under my direction and personally reviewed by me in its entirety. I confirm that the note above accurately reflects all work, treatment, procedures, and medical decision making performed by me. Departure Information Dispostion Being Evaluated By Hospitalist Referrals Angela Marin M.D. (PCP)
[2016-09-07] MEDS ORDERED: NTRGSL/4 UT (09:39)
[2016-09-07] MEDS ORDERED: NXM/40 PO (09:39)
[2016-09-07] MEDS ORDERED: CRS10 PO (09:39)
[2016-09-07] MEDS ORDERED: GABA-113 PO (09:39)
[2016-09-07] MEDS ORDERED: NRN600 PO (09:39)
--- NOTE | 2016-09-07 10:01 | DIAGNOSTIC IMAGING REPORT ---
RIGHT FOOT 3 VIEWS CLINICAL HISTORY: Right foot pain. FINDINGS: 3 views of the right foot are obtained. No prior studies are available for comparison at the time of dictation. The skeletal structures are osteopenic. There is a small avulsion injury seen from the lateral aspect of the anterior calcaneus, best seen on the anterior view. No additional acute fracture is clearly identified. There are dorsal and plantar calcaneal enthesophytes. Degenerative spurring seen along the dorsal aspect of the tarsal bones. Mild arthritic change is present the first metatarsophalangeal joint. A small bony erosion is suggested along the medial aspect of the first metatarsal head. Mild diffuse soft tissue edema is noted throughout the foot. There is atherosclerotic calcification of the regional arteries. IMPRESSION: 1. Diffuse soft tissue swelling with acute appearing avulsion fracture from the lateral aspect of the anterior calcaneus. 2. No additional acute fracture is seen. 3. Osteopenia and degenerative change as above. Electronically signed by: Scott Tello M.D. 09/07/2016 9:58 AM Dictated Date/Time: 09/07/2016 9:54 AM
[2016-09-07 10:27] LABS: BASO % 0.1 %; BASO ABS # 0.01 K/uL (0-0.2); COMPLETE YES; EOS % 1.7 %; HEMATOCRIT 27.5 % (37-47); IG% 0.3 %; LYMPH % 17.6 %; LYMPH ABS # 1.71 K/uL (1.2-3.4); MEAN CELL VOLUME 83.6 fL (80-100); MEAN CORPUSCULAR HEMOGLOBIN 29.2 pg (25-34); MEAN CORPUSCULAR HGB CONC 34.9 g/dl (32-36); MEAN PLATELET VOLUME 10.1 fL (7.4-10.4); MONO % 7.1 %; NEUT % 73.2 %; PLATELET COUNT 212 K/uL (130-400); RED BLOOD COUNT 3.29 M/uL (4.2-5.4); WHITE BLOOD COUNT 9.72 K/uL (4.8-10.8)
--- NOTE | 2016-09-07 10:31 | DIAGNOSTIC IMAGING REPORT ---
SINGLE VIEW CHEST CLINICAL HISTORY: Generalized weakness. FINDINGS: An AP, portable, upright chest radiograph is compared to study dated 08/30/2016. The examination is degraded by portable technique, patient rotation, and large body habitus. The heart is top normal for projection. There is atherosclerotic calcification of the thoracic aorta. Chronic interstitial thickening is unchanged. No airspace consolidation, large pleural effusion, or pneumothorax is seen. The skeletal structures are osteopenic. The bony thorax is grossly intact. Degenerative change is noted throughout the thoracic spine and in the shoulders. IMPRESSION: No acute cardiopulmonary abnormality. Electronically signed by: Scott Tello M.D. 09/07/2016 10:29 AM Dictated Date/Time: 09/07/2016 10:28 AM
[2016-09-07] MEDS ORDERED: FRS/40 PO ×2 (10:36)
[2016-09-07] MEDS ORDERED: CLON0.2T11 PO (10:39)
[2016-09-07] MEDS ORDERED: ANTI1SOL5 OPR (10:39)
[2016-09-07] MEDS ORDERED: INSU100I2 (10:39)
[2016-09-07 10:44] LABS: CALCIUM 8.1 mg/dl (8.5-10.1); CREATININE 1.4 mg/dl (0.60-1.20); POTASSIUM 3.1 mmol/L (3.5-5.1)
[2016-09-07 10:54] LABS: THYROID STIMULATING HORMONE 0.095 uIu/ml (0.300-4.500)
[2016-09-07 11:30] VITALS: O2SAT 99; Ht 152.4 cm; Wt 124.1 kg
[2016-09-07] MEDS ORDERED: ACETAMINOPHEN 325 MG TAB PO PRN (11:30)
[2016-09-07] MEDS ORDERED: OXYCODONE HCL IR 5 MG TAB (IMMEDIATE RELEASE) PO PRN (11:45)
[2016-09-07] MEDS ORDERED: HYDROmorphone INJ 1 MG/ML SYR IV PRN (11:45)
[2016-09-07] MEDS ORDERED: POTASSIUM CHLORIDE 10 MEQ TABCR PO STA (12:04)
[2016-09-07] MEDS ORDERED: INSULIN GLARGINE PER UNIT 5 UNITS in SYRINGE 0 ML SC STA (12:25)
[2016-09-07] MEDS ORDERED: DEXTROSE 50% 50 ML SYR IV PRN (12:30)
[2016-09-07] MEDS ORDERED: GLUCOSE 10 TABS/TUBE PO PRN (12:30)
[2016-09-07] MEDS: GABAPENTIN 300 MG CAP PO SCH (12:30)
[2016-09-07] MEDS ORDERED: ANTIPYRINE OT PRN (12:30)
[2016-09-07] MEDS ORDERED: POLYETHYLENE (MIRALAX) 17 GM PACK PO PRN (12:30)
[2016-09-07] MEDS ORDERED: GLUCOSE 40% GEL 15 GM TUBE PO PRN (12:30)
[2016-09-07] MEDS ORDERED: BENZOCAINE OT PRN (12:30)
[2016-09-07] MEDS ORDERED: GLUCAGON FOR INJ 1 MG VIAL SQ PRN (12:30)
[2016-09-07 12:38] LABS: INR 1.1 (0.9-1.1); PARTIAL THROMBOPLASTIN RATIO 0.9
--- NOTE | 2016-09-07 13:23 | History and Physical ---
History & Physical Date & Time of Service: Sep 07, 2016 at 12:32 Chief Complaint: Ankle Pain/ Fall Primary Care Physician: Angela Marin M.D. History of Present Illness Source: patient This is a 71 y/o female with PMHx of CKD stage 3, Insulin-dependent DM 2, Chronic Anemia, HTN, Dyslipidemia and other problems as outlined below who presents to the ED c/o L ankle pain s/p fall yesterday. Pt was recently admitted to [facility] from 08/30/16-09/03/16 with Hyponatremia and ESBL UTI. Pt was discharged home on IV Invanz x 7 days. Pt reports she was feeling well upon discharge and all urinary sxs had resolved. Yesterday, she was getting into her car when her R leg gave out causing her to roll her R ankle and fall to the ground. Pt was unable to get up due to weakness and R ankle pain. She reports that the R ankle pain was an 8/10 pain that radiated into the calf. She has associated swelling and bruising of the ankle and foot. She denies hitting her head. Pt typically ambulates with cane or walker when she leaves the house which she was using at the time of her fall. She currently lives with her 2 sisters. Sister at bedside reports patient has had increased generalized weakness since discharge. Pt denies fever/chills, diaphoresis, chest pain, palpitations, SOB, abd pain, N/V, bowel or bladder issues, worsening LE edema, calf pain, lightheadedness/dizziness. In the ED, BP is elevated on arrival. Pt is afebrile with no leukocytosis. HgB 9.6. Na+ 125. K+ 3.1. creat 1.4. CK 457. TSH 0.095. CXR is negative. L Foot Xray + calcaneal fx. EKG: no ischemic change. Pt appears stable and will be admitted for further evaluation and treatment. Past Medical/Surgical History Medical Problems: (1) Adjustment disorder Status: Chronic (2) CKD (chronic kidney disease), stage III Status: Chronic (3) GERD (gastroesophageal reflux disease) Status: Chronic (4) HLD (hyperlipidemia) Status: Chronic (5) Hypertension Status: Chronic (6) Hypertensive heart disease Status: Chronic (7) IBS (irritable bowel syndrome) Status: Chronic (8) Insulin dependent diabetes mellitus Status: Chronic (9) Morbid obesity Status: Chronic Surgical Problems: (1) H/O hernia repair Status: Chronic (2) H/O: Status: Chronic (3) H/O: hysterectomy Status: Chronic (4) S/P cholecystectomy Status: Chronic Family History Cardiac disorder MOTHER Diabetes mellitus FATHER Social History Smoking Status: Never Smoker Alcohol Use: none Drug Use: none Marital Status: Housing status: lives with family (sisters) Occupational Status: unemployed Immunizations History of Influenza Vaccine: Yes Influenza Vaccine Date: Jun 26, 2015 History of Tetanus Vaccine?: Yes Tetanus Immunization Date: Dec 09, 2009 History of Pneumococcal: Yes Pneumococcal Date: Dec 09, 2006 History of Hepatitis B Vaccine: No Multi-Drug Resistant Organisms History of MDRO: No Allergies Coded Allergies: Metformin (Verified Allergy, Intermediate, causes kidney problems, 09/07/16) Biguanides (Verified Allergy, Unknown, UNSURE, 09/07/16) PATIENT UNSURE IF AN ALLERGY Loratadine (Verified Allergy, Unknown, unsure, 09/07/16) patient unsure if this is an allergy Pseudoephedrine (Unverified Allergy, Unknown, UNKNOWN, 09/07/16) UNSURE IF AN ALLERGY HMG-CoA-R Inhibitors (Verified Adverse Reaction, Mild, GI UPSET, 09/07/16) ? GI UPSET PER DR PATEL Sulfa Antibiotics (Verified Adverse Reaction, Unknown, NAUSEA, 09/07/16) Home Medications Scheduled Amlodipine (Norvasc), 10 MG PO DAILY Aspirin (Aspirin), 325 MG PO DAILY Carvedilol (Carvedilol), 12.5 MG PO BID Cholecalciferol (Vitamin D), 1,000 INTER.UNIT PO DAILY Clonazepam (Klonopin), 1 MG PO HS Clonidine Hcl (Catapres), 0.2 MG PO BID Ertapenem Sodium (Invanz), 1 GM IV DAILY Esomeprazole Magnesium (Nexium), 40 MG PO DAILY Fenofibrate (Tricor ), 145 MG PO DAILY Fluticasone Propionate (Nasal) (Flonase), 2 SPRAYS ANSELMO DAILY Furosemide (Lasix), 40 MG PO DAILY Gabapentin (Neurontin *), 600 MG PO Q12 Gabapentin (Neurontin), 300 MG PO midday Hydralazine HCl (Hydralazine HCl), 50 MG PO TID Insulin Glargine (Lantus Solostar Pen), 46 UNIT SQ HS Lactobacillus Acidophilus (Lactinex), 2 TAB PO TID Metolazone (Zaroxolyn), 2.5 MG PO WK Ranitidine Hcl (Zantac), 1 TAB PO BID Rosuvastatin Calcium (Crestor *), 40 MG PO DAILY Sertraline (Zoloft), 0.5 TAB PO DAILY Topiramate (Topamax), 0.5 TAB PO BID Scheduled PRN Antipyrine-Benzocaine (Antipyrine/Benzocaine), 2 DROPS OPR QID PRN for ear pain Hydrocodone/Acetaminophen 5MG/325MG ([place] 5MG/325MG), 2 TABLETS PO BID PRN for Pain Nitroglycerin (Nitrostat), 0.4 MG UT UD PRN for Chest Pain Ondansetron Hcl (Zofran), 8 MG PO TID PRN for Nausea Polyethylene (Miralax), 17 GM PO DAILY PRN for Constipation Senna/Docusate Sod (Senokot S), 2 TAB PO HS PRN Miscellaneous Medications Insulin Lispro (Human) (Humalog Kwikpen) Review of Systems Constitutional: + weakness, No chills, No fatigue, No fever, No sweats Eyes: No worsening of vision ENT: No hearing loss Respiratory: No cough, No shortness of breath Cardiovascular: No chest pain, No claudication, No edema, No palpitations Abdomen: No GI bleeding, No constipation, No diarrhea, No nausea, No pain, No vomiting Musculoskeletal: + joint pain (R ankle pain with swelling and ecchymosis), + swelling, No calf pain Genitourinary - Female: No dysuria, No hematuria, No urinary frequency Neurologic: + weakness Psychiatric: No depression symptoms Endocrine: No fatigue Hematologic / Lymphatic: No abnormal bleeding/bruising Integumentary: No new/changing skin lesions Physical Exam Vital Signs Date Time Temp Pulse Resp B/P Pulse Ox O2 Delivery O2 Flow Rate FiO2 09/07/16 11:30 99 Room Air 09/07/16 10:36 64 16 99 Room Air 09/07/16 09:40 77 09/07/16 09:37 99 Room Air 09/07/16 09:10 37.0 73 16 147/106 97 Room Air General Appearance: WD/WN, no apparent distress, + obese, + pertinent finding ( Pt is laying in bed with sisters at bedside ) Head: normocephalic, atraumatic Eyes: normal inspection ENT: hearing grossly normal Neck: supple Respiratory/Chest: chest non-tender, lungs clear, normal breath sounds, no respiratory distress Cardiovascular: regular rate, rhythm Abdomen/GI: normal bowel sounds, non tender, soft Back: normal inspection Extremities/Musculoskelatal: no calf tenderness, + swelling (2+ pitting edema to bilat LE; swelling and ecchymosis noted to R ankle with tenederness to palpation and limited ROM due to pain ) Neurologic/Psych: alert, normal mood/affect, oriented x 3 Skin: normal color, warm/dry Diagnostics Laboratory Results Results Past 24 Hours Test 09/07/16 09:35 09/07/16 10:00 09/07/16 10:05 09/07/16 11:31 Range/Units Bedside Glucose 221 70-90 mg/dl White Blood Count 9.72 4.8-10.8 K/uL Red Blood Count 3.29 4.2-5.4 M/uL Hemoglobin 9.6 12.0-16.0 g/dL Hematocrit 27.5 37-47 % Mean Corpuscular Volume 83.6 80-100 fL Mean Corpuscular Hemoglobin 29.2 25-34 pg Mean Corpuscular Hemoglobin Concent 34.9 32-36 g/dl Platelet Count 212 130-400 K/uL Mean Platelet Volume 10.1 7.4-10.4 fL Neutrophils (%) (Auto) 73.2 % Lymphocytes (%) (Auto) 17.6 % Monocytes (%) (Auto) 7.1 % Eosinophils (%) (Auto) 1.7 % Basophils (%) (Auto) 0.1 % Neutrophils # (Auto) 7.11 1.4-6.5 K/uL Lymphocytes # (Auto) 1.71 1.2-3.4 K/uL Monocytes # (Auto) 0.69 0.11-0.59 K/uL Eosinophils # (Auto) 0.17 0-0.5 K/uL Basophils # (Auto) 0.01 0-0.2 K/uL RDW Standard Deviation 41.2 36.4-46.3 fL RDW Coefficient of Variation 13.6 11.5-14.5 % Immature Granulocyte % (Auto) 0.3 % Immature Granulocyte # (Auto) 0.03 0.00-0.02 K/uL Sodium Level 125 136-145 mmol/L Potassium Level 3.1 3.5-5.1 mmol/L Chloride Level 89 98-107 mmol/L Carbon Dioxide Level 27 21-32 mmol/L Anion Gap 9.0 3-11 mmol/L Blood Urea Nitrogen 18 7-18 mg/dl Creatinine 1.40 0.60-1.20 mg/dl Est Creatinine Clear Calc Drug Dose 45.0 ml/min Estimated GFR () 43.7 Estimated GFR (Non- 37.7 BUN/Creatinine Ratio 13.0 10-20 Random Glucose 224 70-99 mg/dl Calcium Level 8.1 8.5-10.1 mg/dl Total Bilirubin 0.5 0.2-1 mg/dl Direct Bilirubin 0.3 0-0.2 mg/dl Aspartate Amino Transf (AST/SGOT) 41 15-37 U/L Alanine Aminotransferase (ALT/SGPT) 33 12-78 U/L Alkaline Phosphatase 50 45-117 U/L Total Creatine Kinase 457 26-192 U/L Total Protein 5.6 6.4-8.2 gm/dl Albumin 2.5 3.4-5.0 gm/dl Thyroid Stimulating Hormone (TSH) 0.095 0.300-4.500 uIu/ml Creatine Kinase MB Ratio 0-3.0 Diagnostic Radiology CXR IMPRESSION: No acute cardiopulmonary abnormality. R FOOT XRAY IMPRESSION: 1. Diffuse soft tissue swelling with acute appearing avulsion fracture from the lateral aspect of the anterior calcaneus. 2. No additional acute fracture is seen. 3. Osteopenia and degenerative change as above. EKG EKG: NSR at 69 bpm with o acute ischemic changes noted; when compared with EKG from 08/30/16 L anterior fascicular block, ST elevation in lateral leads and T wave abnormality in anterolateral leads are no longer present Impression Assessment and Plan R CALCANEUS FX S/P FALL pt presents with R ankle pain s/p fall yesterday -admit to telemetry -L Foot Xray Impression: Diffuse soft tissue swelling with acute appearing avulsion fracture from the lateral aspect of the anterior calcaneus -pain mgmt -PT/OT -fall precautions -consult ortho, Dr. Carrillo-pending input -pt may benefit from inpatient rehab upon discharge -monitor HYPONATREMIA -Na+ 125; recent admission for same issue -? SIADH vs. diuretic-induced -fluid restriction -hold home diuretics for now -consult nephroDr. Saab-pending input HYPOKALEMIA -K+ 3.1; replete -monitor with prp daily ELEVATED CK -CK 457 -check Troponin and CKMB -pt denies acute coronary sxs ESBL UTI -cont IV Invanz ( to be completed 09/10/16) -pt denies urinary sxs CKD STAGE 3 -creatinine is around baseline at 1.4 -consulted nephro INSULIN-DEPENDENT DM 2 -recent A1C 8.1 -Lantus 5 units BID -start ISS -monitor BSG AC HS CHRONIC ANEMIA -HgB currently around baseline at 9.6 (bl=10) -pt denies active bleed -continue to monitor daily ANXIETY/DEPRESSION -stable -cont Zoloft and Klonopin GERD -Zantac HTN -BP stable -cont Norvasc, Coreg, Clonidine, hydralazine -monitor DYSLIPIDEMIA -cont statin and fenofibrate DVT PROPHYLAXIS -subq Lovenox CODE STATUS -FULL CODE status per discussion with patient upon admission DISPO -Patient may benefit from inpatient rehab at [facility] -Pt seen in collaboration with Dr. Magana. Please see his addendum for further evaluation. Thanks! Advanced Directives Existing Advance Directive: No Existing Living Will: No Existing Power of [employer] Supervisor: No VTE Prophylaxis VTE Risk Assessment Done? Y/N: Yes Risk Level: Moderate Note ATTENDING ADDENDUM Record reviewed. Patient interviewed and examined in ED. Care coordinated with Shiloh Nolasco PA-C. Please refer to her documentation for patient's history. Briefly, 71 YO female with history of hypertension with hypertensive heart disease, CKD, chronic dependent edema, and other problems as documented. Lost her footing yesterday while entering a vehicle, injuring her right foot. No associated cardiac or neurologic symptoms. EXAM: General- no distress VS- as noted HEENT- atraumatic Neck- supple; no JVD at 45 degree elevation Lungs- clear to auscultation Heart- RRR, no gallop Abdomen- + BS, soft, nontender Extremities- 2+ chronic-appearing pretibial and pedal edema without calf tenderness; swelling, ecchymosis, tenderness right lateral ankle Neuro- alert, oriented DATA: Sodium 125, K 3.1, BUN 18, creat 1.4. Total CPK 457, troponin 0.050. Other lab studies as noted. EKG performed at 09:31 reviewed and demonstrated NSR at 70 / minute, poor R- wave progression, no acute ST or T-wave abnormalities.. RIGHT FOOT 3 VIEWS IMPRESSION: 1. Diffuse soft tissue swelling with acute appearing avulsion fracture from the lateral aspect of the anterior calcaneus. 2. No additional acute fracture is seen. 3. Osteopenia and degenerative change as above. Electronically signed by: Scott Tello M.D. ASSESSMENT AND PLAN: HYPONATREMIA Serum sodium = 125. Despite edema, suspect that intravascular volume status is euvolemic. Hyponatremia may be due to combination of diuretic therapy and SIADH. Hold diuretics until serum sodium improved. 1500 ml fluid restriction. Consult Nephrology. RIGHT CALCANEAL FRACTURE Consult Ortho. Check vitamin D level. E COLI (ESBL) UTI Continue ertapenem to complete 7 day course of therapy. Please refer to RENE Nolasco's documentation for discussion of other issues. Yves Magana MD .
[2016-09-07] MEDS ORDERED: CHOL100010 PO (13:26)
[2016-09-07] MEDS ORDERED: FLUT0.0529 NAE (13:26)
[2016-09-07] MEDS ORDERED: CLON1TAB3 PO (13:26)
[2016-09-07] MEDS ORDERED: DOCUSATE SODIUM/SENNA 50/8.6MG TAB PO PRN (14:00)
--- NOTE | 2016-09-07 15:42 | DIAGNOSTIC IMAGING REPORT ---
ULTRASOUND BILATERAL LOWER EXTREMITY VENOUS CLINICAL HISTORY: Lower extremity edema. COMPARISON STUDY: Bilateral lower extremity venous ultrasound dated 04/06/2016. TECHNIQUE: Real-time, grayscale, and color Doppler sonography of the deep veins of the right and left lower extremity was performed from the inguinal crease to the calf. Compression and augmentation were utilized. The examination is degraded by large body habitus. FINDINGS: There is no sonographic evidence of deep venous thrombosis identified in the right or left lower extremity. The common femoral, superficial femoral, and popliteal veins are patent and normally compressible bilaterally. The greater saphenous vein and the profunda femoris vein at the junction with the common femoral vein are clear in both legs. The visualized calf veins are patent bilaterally. IMPRESSION: There is no sonographic evidence of deep venous thrombosis identified in the right or left lower extremity. Electronically signed by: Scott Tello M.D. 09/07/2016 3:40 PM Dictated Date/Time: 09/07/2016 3:39 PM
[2016-09-07 15:51] VITALS: BP 136/79; PULSE 64; TEMP 37.4; O2SAT 97
[2016-09-07 16:00] VITALS: O2SAT 97
[2016-09-07] MEDS ORDERED: ERTAPENEM 1 GM ADDVIAL IV SCH (16:00)
[2016-09-07] MEDS: ERTAPENEM IV 1 GM in SODIUM CHLOR 0.9% AD-VAN 50ML IV SCH (16:06)
[2016-09-07] MEDS: LACTOBACILLUS ACIDOPHILUS (FLORANEX) TAB PO SCH ×2 (16:07→21:21)
[2016-09-07] MEDS: INSULIN GLARGINE SOLOSTAR 100 UNITS/ML 3 ML PEN SC SCH ×2 (16:09→21:26)
--- NOTE | 2016-09-07 16:54 | Nephrology Consultation ---
Nephrology Consultation Date of Consultation: Sep 07, 2016. Attending Physician: Dr Basurto Requesting Physician: Dr. Magana Reason for Consultation: recurrent hyponatremia History of Present Illness 71 year old female w/ HTN, DM w/ retinopathy, CKD 3, anxiety, morbid obesity, ESBL UTI, CAD w/ remote AK comes back to hospital today with R calcaneal fracture and recurrent hyponatremia. Admitted here recently (just d/c 09/03) for ESBL E coli uti and prerenal hyponatremia w/ presenting sodium 124. Some details of her hx since hospital d/c are unclear: Diuretics had been on hold at hospital d/c per d/c summary; however pt reported to case mgt that she was taking lasix daily on day after d/c and that she had IV lasix at [facility]. Pt denies to me that she had lasix IV; states she has however been taking lasix daily po and had one metolazone dose. Also states she has no fluid limit at home and drinks about 60 oz daily; states had been eating some but not heartily since arriving home (literally states had been having "tea and toast") . Pt had ongoing weakness since hospital d/c though no voiding sx. R ankle gave out getting into car yesterday w/ fall (did not hit head); noted on arrival to ED today to have R calcaneal frx, marked BLE edema. She fell again today w/ trying to sit on the toilet/chair but w/o realizing that her sister had moved it. Presenting sodium today is 125 w/ sCreat 1.4 at 10 am with K 3.1. She was d/c home on 09/03 on ertapenem daily at [facility] and on amlodipine increased from 5 mg to 10 mg daily. Also on hydralazine, coreg, clonidine, stable doses. Hyponatremia at last admission attributed to volume depletion>at d/c lasix & metolazone remained on hold, no fluid limit. D/c sodium 135; d/c creatinine 1.2; at that admission chem labs were 124 and 2.0 respectively on 08/30. Her ertapenem for uti from last admission will be continued. She has had no diuretics or fluid since presenting this am; repeat bmp pending. No prior hx in [facility] [place] records of serum sodium lower than 130. Past Medical/Surgical History Medical Problems: (1) MAGGIE (acute kidney injury) Status: Acute (2) C. difficile enteritis Status: Acute (3) Calcaneal fracture Status: Acute (4) Elevated troponin Status: Acute (5) Leukocytosis Status: Acute -recent [facility] [place] admission 08/30/16-09/03/16 for e coli, hyponatremia hypovolemic; MAGGIE on CKD -[facility] [place] admission 07/2016 C diff, MAGGIE on CKD -[facility] [place] 03/2016 admission enterococcus/ e coli uti -ambulatory dysfunction with 2 falls past 24 hrs -CKD 3 -DM w/ triopathy -CAD -obesity -anxiety Family History Cardiac disorder MOTHER Diabetes mellitus FATHER Social History Smoking Status: Never Smoker Alcohol Use: occasionally Drug Use: none Marital Status: Housing Status: lives alone Occupation Status: unemployed Allergies Coded Allergies: Metformin (Verified Allergy, Intermediate, causes kidney problems, 09/07/16) Biguanides (Verified Allergy, Unknown, UNSURE, 09/07/16) PATIENT UNSURE IF AN ALLERGY Loratadine (Verified Allergy, Unknown, unsure, 09/07/16) patient unsure if this is an allergy Pseudoephedrine (Unverified Allergy, Unknown, UNKNOWN, 09/07/16) UNSURE IF AN ALLERGY HMG-CoA-R Inhibitors (Verified Adverse Reaction, Mild, GI UPSET, 09/07/16) ? GI UPSET PER DR PATEL Sulfa Antibiotics (Verified Adverse Reaction, Unknown, NAUSEA, 09/07/16) Medications Current Inpatient Medications Medications (Trade) Dose Ordered Sig/Hansel Route Start Time Stop Time Status Last Admin Dose Admin Acetaminophen (Tylenol Tab) 650 mg Q4H PRN PO 09/07/16 11:30 10/07/16 11:29 Hydromorphone HCl (Dilaudid Inj) 1 mg Q2H PRN IV 09/07/16 11:45 09/21/16 11:44 Oxycodone HCl (Roxicodone Immediate Rel Tab) 5 mg Q6H PRN PO 09/07/16 11:45 09/21/16 11:44 Oxycodone HCl (Roxicodone Immediate Rel Tab) 10 mg Q6H PRN PO 09/07/16 11:45 09/21/16 11:44 Insulin Aspart (novoLOG ASPART) SLIDING SCALE If C... ACHS SC 09/07/16 16:00 10/07/16 15:59 Glucose (Glucose 40% Gel) 15-30 GRAMS 15 GRAMS... UD PRN PO 09/07/16 12:30 10/07/16 12:29 Glucose (Glucose Chew Tab) 4-8 Tablets 4 Tabl... UD PRN PO 09/07/16 12:30 10/07/16 12:29 Dextrose (Dextrose 50% 50ML Syringe) 25-50ML OF 50% DW IV FOR... UD PRN IV 09/07/16 12:30 10/07/16 12:29 Glucagon (Glucagon Inj) 1 mg UD PRN SQ 09/07/16 12:30 10/07/16 12:29 Amlodipine Besylate (Norvasc Tab) 10 mg DAILY PO 09/08/16 09:00 10/08/16 08:59 Aspirin (Ecotrin Tab) 325 mg DAILY PO 09/08/16 09:00 10/08/16 08:59 Carvedilol (Coreg Tab) 12.5 mg BID PO 09/07/16 21:00 10/07/16 20:59 Cholecalciferol (Vitamin D Tab) 1,000 inter.unit DAILY PO 09/08/16 09:00 10/08/16 08:59 Clonazepam (Klonopin Tab) 1 mg HS PO 09/07/16 21:00 10/07/16 20:59 Fenofibrate (Tricor Tab) 145 mg DAILY PO 09/08/16 09:00 10/08/16 08:59 Fluticasone Propionate (Flonase Nasal [place]) 2 sprays DAILY ANSELMO 09/08/16 09:00 10/08/16 08:59 Gabapentin (Neurontin Tab) 600 mg Q12 PO 09/07/16 21:00 10/07/16 20:59 Gabapentin (Neurontin Cap) 300 mg DAILY@1200 PO 09/07/16 12:30 10/07/16 12:29 Hydralazine HCl (Apresoline Tab) 50 mg TID PO 09/07/16 14:00 10/07/16 13:59 Acetaminophen/ Hydrocodone Bitart ([place] 5/325 Tab) 2 tab BID PRN PO 09/07/16 12:30 09/21/16 12:29 Lactobacillus Acidophilus (Floranex Tab) 2 tab TID PO 09/07/16 14:00 10/07/16 13:59 Polyethylene (Miralax Powder Packet) 17 gm DAILY PRN PO 09/07/16 12:30 10/07/16 12:29 Ranitidine HCl (zANTac TAB) 150 mg BID PO 09/07/16 21:00 10/07/16 20:59 Rosuvastatin Calcium (Crestor Tab) 40 mg DAILY PO 09/08/16 09:00 10/08/16 08:59 Senna/Docusate Sodium (Senokot S Tab) 2 tab HS PRN PO 09/07/16 14:00 10/07/16 13:59 Sertraline HCl (Zoloft Tab) 25 mg DAILY PO 09/08/16 09:00 10/08/16 08:59 Topiramate (Topamax Tab) 25 mg BID PO 09/07/16 21:00 10/07/16 20:59 Benzocaine/ Antipyrine (Auralgan Otic Soln) 2 drops QID PRN OT 09/07/16 12:30 10/07/16 12:29 Clonidine HCl (Catapres Tab) 0.2 mg BID PO 09/07/16 21:00 10/07/16 20:59 Pantoprazole Sodium (Protonix Tab) 40 mg QAM PO 09/08/16 09:00 10/08/16 08:59 Insulin Glargine 5 unit 5 unit BID SC 09/07/16 15:00 10/07/16 14:59 Ertapenem/Sodium Chloride (Invanz Iv/Nss Ad-Van 50ml) 50 ml @ 100 mls/hr DAILY@1600 IV 09/07/16 16:00 09/10/16 15:59 Enoxaparin Sodium (Lovenox Inj) 40 mg HS SQ 09/07/16 21:00 10/07/16 20:59 Home Meds and Scripts Medications Dose Route/Sig Max Daily Dose Days Date Category Dose Instructions Lasix (Furosemide) 40 Mg Tab 40 Mg PO DAILY 09/07/16 Reported Norvasc (Amlodipine Besylate) 10 Mg Tab 10 Mg PO DAILY 09/03/16 Rx Miralax (Polyethylene) 17 Gm Pow 17 Gm PO DAILY PRN 30 09/03/16 Rx Carvedilol 12.5 Mg Tab 12.5 Mg PO BID 30 09/03/16 Rx Invanz (Ertapenem Sodium) 1 Gm Inj 1 Gm IV DAILY 7 09/03/16 Rx Lactinex (Lactobacillus Acidophilus) Tab 2 Tab PO TID 10 09/03/16 Rx Topamax (Topiramate) 50 Mg Tab 0.5 Tab PO BID 30 09/03/16 Rx Zofran (Ondansetron Hcl) 8 Mg Tab 8 Mg PO TID PRN 09/03/16 Rx Zantac (Ranitidine HCl) 150 Mg Tab 1 Tab PO BID 30 09/03/16 Rx Zaroxolyn (Metolazone) 2.5 Mg Tab 2.5 Mg PO WK 15 09/03/16 Rx Zoloft (Sertraline HCl) 50 Mg Tab 0.5 Tab PO DAILY 30 09/03/16 Rx [place] 5MG/325MG (Acetaminophen/Hydrocodone Bitart) Tab 2 Tablets PO BID PRN 08/07/15 Reported PRN PAIN Lantus Solostar Pen (Insulin Glargine) 100 Unit/ Inj 46 Unit SQ HS 60 08/07/15 Reported Hydralazine HCl 50 Mg Tab 50 Mg PO TID 30 05/29/15 Rx Humalog Kwikpen (Insulin Lispro (Human)) 100 Unit/Ml Inj 03/12/15 Reported 4 units for bsg 150-200 6 units for bsg 201-250 8 units for bsg 251-300 10 units for bsg 301-350 Catapres (Clonidine Hcl) 0.2 Mg Tab 0.2 Mg PO BID 03/12/15 Reported Antipyrine/Benzocaine (Antipyrine-Benzocaine) 1 Mami Mami 2 Drops OPR QID PRN 03/12/15 Reported Flonase (Fluticasone Propionate (Nasal)) 50 Mcg/Act Spr 2 Sprays ANSELMO DAILY 09/04/14 Reported Vitamin D (Cholecalciferol) 1,000 Inter.unit Tab 1,000 Inter.unit PO DAILY 09/04/14 Reported Klonopin (Clonazepam) 1 Mg Tab 1 Mg PO HS 09/04/14 Reported Senokot S (Senna/Docusate Sodium) 1 Tab Tab 2 Tab PO HS PRN 12/15/12 Rx Aspirin 325 Mg Tab 325 Mg PO DAILY 11/04/12 Reported Crestor * (Rosuvastatin Calcium) 10 Mg Tab 40 Mg PO DAILY 01/12/09 Reported Neurontin (Gabapentin) 300 Mg Cap 300 Mg PO MIDDAY 01/12/09 Reported Neurontin * (Gabapentin) 600 Mg Cap 600 Mg PO Q12 01/12/09 Reported Tricor (Fenofibrate) 145 Mg Tab 145 Mg PO DAILY 01/12/09 Reported Nitrostat (Nitroglycerin) 0.4 Mg Tab 0.4 Mg UT UD PRN 01/12/09 Reported Nexium (Esomeprazole Magnesium) 40 Mg Capcr 40 Mg PO DAILY 01/12/09 Reported Review of Systems Constitutional: + fatigue, + weakness, No chills, No fever Eyes: No worsening of vision ENT: No hearing loss, No sore throat Respiratory: No cough, No shortness of breath Cardiac: + edema, No chest pain, No orthopnea, No palpitations Abdomen: + see HPI, No diarrhea, No nausea, No pain, No vomiting Musculoskeletal: + joint pain, + muscle pain, + problem reported (R ankle pain) Female : No dysuria, No hematuria, No urinary frequency Neuro: + balance problems, + memory loss, + see HPI, + weakness Psych: No anxiety, No depression symptoms Heme: No abnormal bleeding/bruising Endo: + fatigue Skin: No rash Physical Exam Date Time Temp Pulse Resp B/P Pulse Ox O2 Delivery O2 Flow Rate FiO2 09/07/16 15:51 37.4 64 18 136/79 97 Room Air 09/07/16 12:50 72 18 155/63 96 Room Air 09/07/16 11:30 99 Room Air 09/07/16 10:36 64 16 99 Room Air 09/07/16 09:40 77 09/07/16 09:37 99 Room Air 09/07/16 09:10 37.0 73 16 147/106 97 Room Air General Appearance: WD/WN, no apparent distress, + obese, + pertinent finding ( on RA) Eyes: EOMI ENT: hearing grossly normal, + pertinent finding (has wig) Neck: supple Respiratory/Chest: lungs clear, no respiratory distress, no accessory muscle use, + decreased breath sounds Cardiovascular: + systolic murmur, + irregularly irregular Abdomen: normal bowel sounds, non tender, soft, + pertinent finding (no roldan) Extremities: + swelling (R ankle w/ ecchymosis; at most trace edema on her legs , nonpitting) Neurologic/Psych: alert, normal mood/affect, oriented x 3 (slight psychomotor delay) Skin: + pallor, + pertinent finding (R ecchymosis) Diagnostics Last 24 Hours Test 09/07/16 09:35 09/07/16 10:00 09/07/16 10:05 09/07/16 11:31 Bedside Glucose 221 mg/dl Prothrombin Time 12.0 SECONDS Prothromb Time International Ratio 1.1 Activated Partial Thromboplast Time 22.4 SECONDS Partial Thromboplastin Ratio 0.9 White Blood Count 9.72 K/uL Red Blood Count 3.29 M/uL Hemoglobin 9.6 g/dL Hematocrit 27.5 % Mean Corpuscular Volume 83.6 fL Mean Corpuscular Hemoglobin 29.2 pg Mean Corpuscular Hemoglobin Concent 34.9 g/dl Platelet Count 212 K/uL Mean Platelet Volume 10.1 fL Neutrophils (%) (Auto) 73.2 % Lymphocytes (%) (Auto) 17.6 % Monocytes (%) (Auto) 7.1 % Eosinophils (%) (Auto) 1.7 % Basophils (%) (Auto) 0.1 % Neutrophils # (Auto) 7.11 K/uL Lymphocytes # (Auto) 1.71 K/uL Monocytes # (Auto) 0.69 K/uL Eosinophils # (Auto) 0.17 K/uL Basophils # (Auto) 0.01 K/uL RDW Standard Deviation 41.2 fL RDW Coefficient of Variation 13.6 % Immature Granulocyte % (Auto) 0.3 % Immature Granulocyte # (Auto) 0.03 K/uL Sodium Level 125 mmol/L Potassium Level 3.1 mmol/L Chloride Level 89 mmol/L Carbon Dioxide Level 27 mmol/L Anion Gap 9.0 mmol/L Blood Urea Nitrogen 18 mg/dl Creatinine 1.40 mg/dl Est Creatinine Clear Calc Drug Dose 45.0 ml/min Estimated GFR () 43.7 Estimated GFR (Non- 37.7 BUN/Creatinine Ratio 13.0 Random Glucose 224 mg/dl Calcium Level 8.1 mg/dl Total Bilirubin 0.5 mg/dl Direct Bilirubin 0.3 mg/dl Aspartate Amino Transf (AST/SGOT) 41 U/L Alanine Aminotransferase (ALT/SGPT) 33 U/L Alkaline Phosphatase 50 U/L Total Creatine Kinase 457 U/L Creatine Kinase MB 3.3 ng/ml Troponin I 0.050 ng/ml Total Protein 5.6 gm/dl Albumin 2.5 gm/dl Thyroid Stimulating Hormone (TSH) 0.095 uIu/ml Creatine Kinase MB Ratio Test 09/07/16 16:00 Diagnostic Radiology: CXR no acute process R foot xr > calcaneal frx BLE venous dopplers negative EKG: AF w/ vent rate 69 Assessment & Plan 71 y/o F w/ recurrent hyponatremia and fluid overload admitted after a fall w/ R calcaneal fracture and undergoing ertapenem therapy for ESBL E coli UTI. hyponatremia unclear etiology She appears to be euvolemic or slightly dry to me > She has had no diuretics, no IVF since presentation and sodium improving -ordered serum osms and urine studies; follow up pending studies, including bmp> sNa 128 and K 3.5; mag 1.5 ->>>>for now would use no lasix unless respiratory distress, no IVF > asked nursing to straight cath pt for urine specimen >>>if 2200 sNa is 132 or higher, recommend D5W at 50 mL hourly; if sodium 124- 130, cont current care; if 123 or lower, pls call me overnight for advice -goal Na for am is 130-131 -control pain which can worsen hyponatremia -agree w/ q6h labs urgent -agree w/ 1.5L fluid limit; agree w/ no sodium limit hypokalemia -c/w reported diuretic use -had 40 mEq po already this admission -will give po K and po mag again one time doses now -await repeat lab; will get mag, phos values as well calcaneal fracture/ recurrent falls >note that she had hypercalcemia at recent admission earlier this month with suppressed pth > for completeness will order PTH rp w/ am labs Appreciate consult; will follow with you.
[2016-09-07 16:55] LABS: MAGNESIUM 1.5 mg/dl (1.8-2.4); PHOSPHORUS 2.3 mg/dl (2.5-4.9)
[2016-09-07 16:58] LABS: BUN/CREATININE RATIO 12.2 (10-20); CALCIUM 8.4 mg/dl (8.5-10.1); CKMB/CK RATIO 0.7 (0-3.0); CREATININE 1.4 mg/dl (0.60-1.20); POTASSIUM 3.5 mmol/L (3.5-5.1)
[2016-09-07] MEDS: INSULIN ASPART 100 UNITS/ML 3 ML PEN SC SCH ×2 (17:50→21:25)
[2016-09-07] MEDS ORDERED: MAGNESIUM CHLORIDE 64MG DELAYED REL TAB PO ONE (18:07)
[2016-09-07] MEDS ORDERED: POTASSIUM CHLORIDE 20 MEQ TABCR PO ONE (18:08)
--- NOTE | 2016-09-07 18:15 | CONSULTATION REPORT ---
DATE OF CONSULTATION: 09/07/2016 REASON FOR CONSULT: Right ankle pain with a calcaneus fracture. HISTORY OF PRESENT ILLNESS: The patient is a 71-year-old white female who states that she was getting in a car yesterday and ended up having her right ankle gave out on her. She had immediate pain, discomfort and swelling of the area. She was unable to get up due to weakness and her right ankle pain and she was brought to the Emergency Room today. She was seen by the staff, x-rays were taken and it was found that she had an evolving fracture of the calcaneus of the right foot. PAST MEDICAL HISTORY: CKD stage III, insulin-dependent diabetes mellitus type 2, chronic anemia, hypertension, dyslipidemia, heart disease, irritable bowel syndrome, and morbid obesity. PAST SURGICAL HISTORY: Herniorrhaphy, , hysterectomy, cholecystectomy. FAMILY HISTORY AND SOCIAL HISTORY: As per admitting history and physical. MEDICATIONS: Amlodipine 10 mg p.o. daily, aspirin 325 mg p.o. daily, carvedilol 12.5 mg p.o. b.i.d., vitamin D 1000 international units p.o. daily, clonazepam 1 mg p.o. at bedtime, clonidine 0.2 mg p.o. b.i.d., Invanz 1 gram IV daily, Nexium 40 mg p.o. daily, Tricor 145 mg p.o. daily, Flonase 2 sprays nasally daily, furosemide 40 mg p.o. daily, gabapentin 600 mg p.o. q. 12 hours and 300 mg p.o. at midday, hydralazine 50 mg p.o. t.i.d., Lantus insulin 46 units subQ at bedtime, Lactinex 2 tabs p.o. t.i.d., Metolazone 2.5 mg p.o. weekly, Zantac 1 tab p.o. b.i.d., Crestor 40 mg p.o. daily, Zoloft 0.5 mg half tab p.o. daily, Topamax half tab p.o. b.i.d., antipyrine/benzocaine 2 drops OPR q.i.d. p.r.n., [place] 5/325 two tabs p.o. b.i.d. p.r.n., Nitrostat 0.4 mg under tongue as directed p.r.n. chest pain, Zofran 8 mg p.o. t.i.d. p.r.n. nausea, MiraLax 17 grams p.o. daily p.r.n. for constipation, Senokot 2 tabs p.o. at bedtime and Humalog insulin as directed. ALLERGIES: METFORMIN, BIGUANIDES, LORATADINE, PSEUDOEPHEDRINE, HMG-COA-R INHIBITORS, SULFA ANTIBIOTICS. REVIEW OF SYSTEMS: Per admitting history and physical. PHYSICAL EXAMINATION: GENERAL: The patient is a 71-year-old white female who appears older than her stated age. She is awake and alert and oriented x3 and in no acute distress, pleasant and cooperative. VITAL SIGNS: Stable and she is afebrile. EXTREMITIES: On examination of her right ankle and foot. She has noticeable ecchymosis and swelling over the lateral aspect of her ankle. She has some mild tenderness on palpation and has some increased discomfort with inversion and eversion of the ankle. She is able to dorsiflex and plantarflex the foot at this time with mild discomfort in the lateral portion of the ankle. Sensation is essentially intact to the foot and she has good capillary refill and foot is warm to touch. Gentle axial loading on the ankle and foot at this time causes no discomfort for the patient. X-RAY REVIEW: X-rays were reviewed with Dr. Joaquim Ken show diffuse soft tissue swelling and an avulsion fracture from the lateral aspect of the anterior calcaneus. No additional acute fractures are seen. ASSESSMENT: 1. Avulsion fracture, anterior calcaneus. 2. Likely ankle sprain. With the patient's diffuse swelling, it is difficult to assess ligaments at this time; however, she does examine like an ankle sprain. PLAN: At this point in time, we will go ahead and order a low tide walking boot to be applied to the patient's right ankle. She can be weightbearing as tolerated with crutches or walker. She will need physical therapy ordered for gait training and she can follow up in the office with Dr. Ken in 10-14 days for recheck.
[2016-09-07] MEDS ORDERED: INSUINJ4 SQ (18:23)
[2016-09-07 18:26] LABS: URINE APPEARANCE CLEAR (CLEAR); URINE BILIRUBIN NEG (NEG); URINE COLOR YELLOW; URINE EPITHELIAL CELL AUTO >30 /lpf (0-5); URINE NITRITE NEG (NEG); UROBILINOGEN NEG (NEG)
[2016-09-07 18:27] LABS: MANUAL MICROSCOPIC REQUIRED? NO; REVIEW REQ? NO
[2016-09-07 20:10] VITALS: O2SAT 96
[2016-09-07 20:17] VITALS: BP 118/72; PULSE 62; TEMP 37; O2SAT 95
[2016-09-07] MEDS: CLONAZEPAM 1 MG TAB PO SCH (21:19)
[2016-09-07] MEDS: CLONIDINE HCL 0.1 MG TAB PO SCH (21:20)
[2016-09-07] MEDS: CARVEDILOL 12.5 MG TAB PO SCH (21:21)
[2016-09-07] MEDS: GABAPENTIN 600 MG TAB PO SCH (21:21)
[2016-09-07] MEDS: TOPIRAMATE 25 MG TAB PO SCH (21:22)
[2016-09-07] MEDS: RANITIDINE HCL 150 MG TAB PO SCH (21:23)
[2016-09-07] MEDS: ENOXAPARIN 40 MG/0.4 ML SYR SQ SCH (21:26)
[2016-09-07] MEDS ORDERED: NURSING DECISION MEDICATION ORDER SCH (21:45)
[2016-09-07 22:47] LABS: BUN/CREATININE RATIO 11.8 (10-20); CALCIUM 8.1 mg/dl (8.5-10.1); CREATININE 1.5 mg/dl (0.60-1.20); POTASSIUM 3.6 mmol/L (3.5-5.1)
[2016-09-07 22:55] LABS: CKMB/CK RATIO 0.8 (0-3.0)
[2016-09-08] VITALS (14 sets, daily range): BP systolic 118–157; BP diastolic 71–85; PULSE 57–67; TEMP 36.7–37; O2SAT 95–98
[2016-09-08 08:27] LABS: HEMATOCRIT 27.7 % (37-47); MEAN CELL VOLUME 83.4 fL (80-100); MEAN CORPUSCULAR HEMOGLOBIN 29.2 pg (25-34); MEAN PLATELET VOLUME 10.1 fL (7.4-10.4); PLATELET COUNT 222 K/uL (130-400); RED BLOOD COUNT 3.32 M/uL (4.2-5.4); WHITE BLOOD COUNT 6.56 K/uL (4.8-10.8)
[2016-09-08] MEDS: FLUTICASONE PROPIONATE NA SPR 16 GM BTL NAE SCH (08:34)
[2016-09-08] MEDS: AMLODIPINE BESYLATE 5 MG TAB PO SCH (08:34)
[2016-09-08] MEDS: SERTRALINE HCL 50 MG TAB PO SCH (08:34)
[2016-09-08] MEDS: ASPIRIN 325 MG ECTAB PO SCH (08:35)
[2016-09-08] MEDS: ROSUVASTATIN CALCIUM 20 MG TAB PO SCH (08:35)
[2016-09-08] MEDS: CHOLECALCIFEROL 1000 INTER.UNIT TAB PO SCH (08:35)
[2016-09-08] MEDS: FENOFIBRATE 145 MG TAB PO SCH (08:36)
[2016-09-08] MEDS: TOPIRAMATE 25 MG TAB PO SCH ×2 (08:36→22:18)
[2016-09-08] MEDS: RANITIDINE HCL 150 MG TAB PO SCH ×2 (08:36→21:09)
[2016-09-08] MEDS: CARVEDILOL 12.5 MG TAB PO SCH ×2 (08:37→21:05)
[2016-09-08] MEDS: LACTOBACILLUS ACIDOPHILUS (FLORANEX) TAB PO SCH ×3 (08:37→21:06)
[2016-09-08] MEDS: GABAPENTIN 600 MG TAB PO SCH ×2 (08:37→21:08)
[2016-09-08] MEDS: CLONIDINE HCL 0.1 MG TAB PO SCH ×2 (08:38→21:04)
[2016-09-08] MEDS: PANTOprazole SOD 40 MG TAB PO SCH (08:39)
[2016-09-08] MEDS: INSULIN ASPART 100 UNITS/ML 3 ML PEN SC SCH ×4 (08:43→21:00)
[2016-09-08] MEDS: INSULIN GLARGINE SOLOSTAR 100 UNITS/ML 3 ML PEN SC SCH ×2 (08:45→20:58)
[2016-09-08] MEDS: HYDROCODONE/ACETAMOPHEN 5/325MG TAB PO PRN (08:51)
[2016-09-08 08:59] LABS: BUN/CREATININE RATIO 12.6 (10-20); CALCIUM 8.5 mg/dl (8.5-10.1); CREATININE 1.3 mg/dl (0.60-1.20); MAGNESIUM 1.7 mg/dl (1.8-2.4); POTASSIUM 4.1 mmol/L (3.5-5.1)
[2016-09-08] MEDS ORDERED: ERTAPENEM 1 GM ADDVIAL IV SCH (09:00)
[2016-09-08 09:04] LABS: ALB/GLOB RATIO 0.7 (0.9-2); CKMB/CK RATIO 0.7 (0-3.0)
--- NOTE | 2016-09-08 09:29 | Orthopedic Progress Note ---
Orthopedic Progress Note Date of Service Sep 08, 2016. Subjective Reports: feeling well, pain controlled w PO medications, Denies: SOB, chest pain , light headedness, nausea / vomiting Additional Notes: ankle/foot pain improved some since yesterday. admits to swelling and bruising Objective N/V intact, capillary refill less than 2 sec., A&O x3, toes mobile moderate lateral ankle swelling, ecchymosis noted. NVDI. tender over anterolateral calcaneus/anterior ankle joint, tender over distal fibula, ATFL Date Time Temp Pulse Resp B/P Pulse Ox O2 Delivery O2 Flow Rate FiO2 09/08/16 07:39 37.0 63 20 138/78 95 Room Air 09/08/16 04:10 97 Room Air 09/08/16 04:09 37.0 64 18 145/75 97 Room Air 09/08/16 00:10 98 Room Air 09/08/16 00:00 36.9 67 20 157/75 98 Room Air 09/07/16 20:17 37.0 62 18 118/72 95 Room Air 09/07/16 20:10 96 Room Air 09/07/16 16:00 97 Room Air 09/07/16 15:51 37.4 64 18 136/79 97 Room Air 09/07/16 12:50 72 18 155/63 96 Room Air 09/07/16 11:30 99 Room Air 09/07/16 10:36 64 16 99 Room Air 09/07/16 09:40 77 09/07/16 09:37 99 Room Air Laboratory Results 24 Hours: Test 09/07/16 10:00 09/07/16 10:05 09/08/16 08:10 Prothromb Time International Ratio 1.1 Prothrombin Time 12.0 SECONDS White Blood Count 9.72 K/uL Red Blood Count 3.29 M/uL Hemoglobin 9.6 g/dL 9.7 g/dL Hematocrit 27.5 % 27.7 % Mean Corpuscular Volume 83.6 fL Mean Corpuscular Hemoglobin 29.2 pg Mean Corpuscular Hemoglobin Concent 34.9 g/dl Platelet Count 212 K/uL Mean Platelet Volume 10.1 fL Neutrophils (%) (Auto) 73.2 % Lymphocytes (%) (Auto) 17.6 % Monocytes (%) (Auto) 7.1 % Eosinophils (%) (Auto) 1.7 % Basophils (%) (Auto) 0.1 % Neutrophils # (Auto) 7.11 K/uL Lymphocytes # (Auto) 1.71 K/uL Monocytes # (Auto) 0.69 K/uL Eosinophils # (Auto) 0.17 K/uL Basophils # (Auto) 0.01 K/uL Assessment & Plan Assessment: 1. Avulsion fracture, anterior calcaneus. 2. Lateral ankle sprain Plan: Patient to be fit for low tide walking boot, may WBAT with boot and walker as needed. cont to ice/elevate above heart level. may remove to work on gentle ROM as tolerated. f/u at [facility] in 2 weeks for repeat xrays, sooner if having any problems. cont w/ current pain med regimen, tolerating well to this point.
--- NOTE | 2016-09-08 10:05 | Nephrology Progress Note ---
Nephrology Progress Note Date of Service: Sep 08, 2016. Objective Date Time Temp Pulse Resp B/P Pulse Ox O2 Delivery O2 Flow Rate FiO2 09/08/16 07:39 37.0 63 20 138/78 95 Room Air 09/08/16 04:10 97 Room Air 09/08/16 04:09 37.0 64 18 145/75 97 Room Air 09/08/16 00:10 98 Room Air 09/08/16 00:00 36.9 67 20 157/75 98 Room Air 09/07/16 20:17 37.0 62 18 118/72 95 Room Air 09/07/16 20:10 96 Room Air 09/07/16 16:00 97 Room Air 09/07/16 15:51 37.4 64 18 136/79 97 Room Air 09/07/16 12:50 72 18 155/63 96 Room Air 09/07/16 11:30 99 Room Air 09/07/16 10:36 64 16 99 Room Air Physical Exam: General Appearance: WD/WN, no apparent distress, + obese, + pertinent finding ( on RA) Eyes: EOMI ENT: hearing grossly normal, + pertinent finding (has wig/alopecia) Neck: supple Respiratory/Chest: lungs clear, no respiratory distress, no accessory muscle use, + decreased breath sounds Cardiovascular: + systolic murmur, + irregularly irregular Abdomen: normal bowel sounds, non tender, soft, + pertinent finding (no roldan) Extremities: + swelling (R ankle w/ ecchymosis; no edema; limbs are obese) Neurologic/Psych: alert, normal mood/affect, oriented x 3 (slight psychomotor delay) Skin: + pallor, + pertinent finding (R ecchymosis) Current Inpatient Medications Medications (Trade) Dose Ordered Sig/Hansel Route Start Time Stop Time Status Last Admin Dose Admin Acetaminophen (Tylenol Tab) 650 mg Q4H PRN PO 09/07/16 11:30 10/07/16 11:29 Hydromorphone HCl (Dilaudid Inj) 1 mg Q2H PRN IV 09/07/16 11:45 09/21/16 11:44 Oxycodone HCl (Roxicodone Immediate Rel Tab) 5 mg Q6H PRN PO 09/07/16 11:45 09/21/16 11:44 Oxycodone HCl (Roxicodone Immediate Rel Tab) 10 mg Q6H PRN PO 09/07/16 11:45 09/21/16 11:44 Insulin Aspart (novoLOG ASPART) SLIDING SCALE If C... ACHS SC 09/07/16 16:00 10/07/16 15:59 09/07/16 21:25 1 UNITS Glucose (Glucose 40% Gel) 15-30 GRAMS 15 GRAMS... UD PRN PO 09/07/16 12:30 10/07/16 12:29 Glucose (Glucose Chew Tab) 4-8 Tablets 4 Tabl... UD PRN PO 09/07/16 12:30 10/07/16 12:29 Dextrose (Dextrose 50% 50ML Syringe) 25-50ML OF 50% DW IV FOR... UD PRN IV 09/07/16 12:30 10/07/16 12:29 Glucagon (Glucagon Inj) 1 mg UD PRN SQ 09/07/16 12:30 10/07/16 12:29 Amlodipine Besylate (Norvasc Tab) 10 mg DAILY PO 09/08/16 09:00 10/08/16 08:59 09/08/16 08:34 10 MG Aspirin (Ecotrin Tab) 325 mg DAILY PO 09/08/16 09:00 10/08/16 08:59 09/08/16 08:35 325 MG Carvedilol (Coreg Tab) 12.5 mg BID PO 09/07/16 21:00 10/07/16 20:59 09/08/16 08:37 12.5 MG Cholecalciferol (Vitamin D Tab) 1,000 inter.unit DAILY PO 09/08/16 09:00 10/08/16 08:59 09/08/16 08:35 1,000 INTER.UNIT Clonazepam (Klonopin Tab) 1 mg HS PO 09/07/16 21:00 10/07/16 20:59 09/07/16 21:19 1 MG Fenofibrate (Tricor Tab) 145 mg DAILY PO 09/08/16 09:00 10/08/16 08:59 09/08/16 08:36 145 MG Fluticasone Propionate (Flonase Nasal [place]) 2 sprays DAILY ANSELMO 09/08/16 09:00 10/08/16 08:59 09/08/16 08:34 2 SPRAYS Gabapentin (Neurontin Tab) 600 mg Q12 PO 09/07/16 21:00 10/07/16 20:59 09/08/16 08:37 600 MG Gabapentin (Neurontin Cap) 300 mg DAILY@1200 PO 09/07/16 12:30 10/07/16 12:29 Hydralazine HCl (Apresoline Tab) 50 mg TID PO 09/07/16 14:00 10/07/16 13:59 09/08/16 08:38 50 MG Acetaminophen/ Hydrocodone Bitart ([place] 5/325 Tab) 2 tab BID PRN PO 09/07/16 12:30 09/21/16 12:29 09/08/16 08:51 2 TAB Lactobacillus Acidophilus (Floranex Tab) 2 tab TID PO 09/07/16 14:00 10/07/16 13:59 09/08/16 08:37 2 TAB Polyethylene (Miralax Powder Packet) 17 gm DAILY PRN PO 09/07/16 12:30 10/07/16 12:29 Ranitidine HCl (zANTac TAB) 150 mg BID PO 09/07/16 21:00 10/07/16 20:59 09/08/16 08:36 150 MG Rosuvastatin Calcium (Crestor Tab) 40 mg DAILY PO 09/08/16 09:00 10/08/16 08:59 09/08/16 08:35 40 MG Senna/Docusate Sodium (Senokot S Tab) 2 tab HS PRN PO 09/07/16 14:00 10/07/16 13:59 Sertraline HCl (Zoloft Tab) 25 mg DAILY PO 09/08/16 09:00 10/08/16 08:59 09/08/16 08:34 25 MG Topiramate (Topamax Tab) 25 mg BID PO 09/07/16 21:00 10/07/16 20:59 09/08/16 08:36 25 MG Benzocaine/ Antipyrine (Auralgan Otic Soln) 2 drops QID PRN OT 09/07/16 12:30 10/07/16 12:29 Clonidine HCl (Catapres Tab) 0.2 mg BID PO 09/07/16 21:00 10/07/16 20:59 09/08/16 08:38 0.2 MG Pantoprazole Sodium (Protonix Tab) 40 mg QAM PO 09/08/16 09:00 10/08/16 08:59 09/08/16 08:39 40 MG Insulin Glargine 5 unit 5 unit BID SC 09/07/16 15:00 10/07/16 14:59 09/08/16 08:45 5 UNIT Ertapenem/Sodium Chloride (Invanz Iv/Nss Ad-Van 50ml) 50 ml @ 100 mls/hr DAILY@1600 IV 09/07/16 16:00 09/10/16 15:59 09/07/16 16:06 100 MLS/HR Enoxaparin Sodium (Lovenox Inj) 40 mg HS SQ 09/07/16 21:00 10/07/16 20:59 09/07/16 21:26 40 MG Miconazole Nitrate (Desenex Powder) 1 appln DAILY PRN EXT 09/07/16 21:45 10/07/16 21:44 Last 24 Hours Test 09/07/16 10:00 09/07/16 10:05 09/07/16 11:31 09/07/16 16:01 Prothrombin Time 12.0 SECONDS Prothromb Time International Ratio 1.1 Activated Partial Thromboplast Time 22.4 SECONDS Partial Thromboplastin Ratio 0.9 White Blood Count 9.72 K/uL Red Blood Count 3.29 M/uL Hemoglobin 9.6 g/dL Hematocrit 27.5 % Mean Corpuscular Volume 83.6 fL Mean Corpuscular Hemoglobin 29.2 pg Mean Corpuscular Hemoglobin Concent 34.9 g/dl Platelet Count 212 K/uL Mean Platelet Volume 10.1 fL Neutrophils (%) (Auto) 73.2 % Lymphocytes (%) (Auto) 17.6 % Monocytes (%) (Auto) 7.1 % Eosinophils (%) (Auto) 1.7 % Basophils (%) (Auto) 0.1 % Neutrophils # (Auto) 7.11 K/uL Lymphocytes # (Auto) 1.71 K/uL Monocytes # (Auto) 0.69 K/uL Eosinophils # (Auto) 0.17 K/uL Basophils # (Auto) 0.01 K/uL RDW Standard Deviation 41.2 fL RDW Coefficient of Variation 13.6 % Immature Granulocyte % (Auto) 0.3 % Immature Granulocyte # (Auto) 0.03 K/uL Sodium Level 125 mmol/L Potassium Level 3.1 mmol/L Chloride Level 89 mmol/L Carbon Dioxide Level 27 mmol/L Anion Gap 9.0 mmol/L Blood Urea Nitrogen 18 mg/dl Creatinine 1.40 mg/dl Est Creatinine Clear Calc Drug Dose 45.0 ml/min Estimated GFR () 43.7 Estimated GFR (Non- 37.7 BUN/Creatinine Ratio 13.0 Random Glucose 224 mg/dl Calcium Level 8.1 mg/dl Total Bilirubin 0.5 mg/dl Direct Bilirubin 0.3 mg/dl Aspartate Amino Transf (AST/SGOT) 41 U/L Alanine Aminotransferase (ALT/SGPT) 33 U/L Alkaline Phosphatase 50 U/L Total Creatine Kinase 457 U/L Creatine Kinase MB 3.3 ng/ml Troponin I 0.050 ng/ml Total Protein 5.6 gm/dl Albumin 2.5 gm/dl Thyroid Stimulating Hormone (TSH) 0.095 uIu/ml Creatine Kinase MB Ratio Bedside Glucose 172 mg/dl Test 09/07/16 16:14 09/07/16 17:00 09/07/16 18:10 09/07/16 20:19 Sodium Level 128 mmol/L Potassium Level 3.5 mmol/L Chloride Level 91 mmol/L Carbon Dioxide Level 29 mmol/L Anion Gap 8.0 mmol/L Blood Urea Nitrogen 17 mg/dl Creatinine 1.40 mg/dl Est Creatinine Clear Calc Drug Dose 45.0 ml/min Estimated GFR () 43.7 Estimated GFR (Non- 37.7 BUN/Creatinine Ratio 12.2 Random Glucose 169 mg/dl Calcium Level 8.4 mg/dl Phosphorus Level 2.3 mg/dl Magnesium Level 1.5 mg/dl Total Creatine Kinase 393 U/L Creatine Kinase MB 2.9 ng/ml Creatine Kinase MB Ratio 0.7 Troponin I 0.049 ng/ml Osmolality 266 mOsm/kg Urine Color YELLOW Urine Appearance CLEAR Urine pH 5.0 Urine Specific [place] 1.000 Urine Protein NEG Urine Glucose (UA) NEG Urine Ketones NEG Urine Occult Blood NEG Urine Nitrite NEG Urine Bilirubin NEG Urine Urobilinogen NEG Urine Leukocyte Esterase TRACE Urine WBC (Auto) 1-5 /hpf Urine RBC (Auto) 0-4 /hpf Urine Hyaline Casts (Auto) 0 /lpf Urine Epithelial Cells (Auto) >30 /lpf Urine Bacteria (Auto) NEG Urine Osmolality 155 mOms/kg Urine Random Sodium 23 mEq/L Bedside Glucose 176 mg/dl Test 09/07/16 22:10 09/08/16 06:58 09/08/16 08:10 09/08/16 09:15 Sodium Level 131 mmol/L 132 mmol/L Potassium Level 3.6 mmol/L 4.1 mmol/L Chloride Level 93 mmol/L 96 mmol/L Carbon Dioxide Level 31 mmol/L 26 mmol/L Anion Gap 7.0 mmol/L 10.0 mmol/L Blood Urea Nitrogen 18 mg/dl 16 mg/dl Creatinine 1.50 mg/dl 1.30 mg/dl Est Creatinine Clear Calc Drug Dose 42.0 ml/min 48.2 ml/min Estimated GFR () 40.2 47.8 Estimated GFR (Non- 34.7 41.2 BUN/Creatinine Ratio 11.8 12.6 Random Glucose 135 mg/dl 102 mg/dl Calcium Level 8.1 mg/dl 8.5 mg/dl Total Creatine Kinase 301 U/L 198 U/L Creatine Kinase MB 2.3 ng/ml 1.3 ng/ml Creatine Kinase MB Ratio 0.8 0.7 Troponin I 0.048 ng/ml 0.045 ng/ml Bedside Glucose 120 mg/dl White Blood Count 6.56 K/uL Red Blood Count 3.32 M/uL Hemoglobin 9.7 g/dL Hematocrit 27.7 % Mean Corpuscular Volume 83.4 fL Mean Corpuscular Hemoglobin 29.2 pg Mean Corpuscular Hemoglobin Concent 35.0 g/dl RDW Standard Deviation 42.1 fL RDW Coefficient of Variation 14.0 % Platelet Count 222 K/uL Mean Platelet Volume 10.1 fL Magnesium Level 1.7 mg/dl Total Bilirubin 0.5 mg/dl Aspartate Amino Transf (AST/SGOT) 37 U/L Alanine Aminotransferase (ALT/SGPT) 27 U/L Alkaline Phosphatase 42 U/L Total Protein 5.3 gm/dl Albumin 2.2 gm/dl Globulin 3.1 gm/dl Albumin/Globulin Ratio 0.7 Assessment & Plan 71 y/o F w/ recurrent hyponatremia attributed to low solute diet this time admitted after a fall w/ R calcaneal fracture and undergoing ertapenem therapy for ESBL E coli UTI. Also w/ hx of CKD 3 hyponatremia euvolemic and chronic > suspect multifactorial with combined low solute diet and lasix use; she was recently admitted here w/ hypovolemic hyponatremia but that is not the etiology this time She has had no diuretics, no IVF since presentation and sodium improving simply w/ fluid restriction > urine studies from several hours after admission consistent with polydipsia ->>>>for now would use no lasix unless respiratory distress, no IVF -cont 1.5L fluid limit -goal Na for am tomorrow is 138 -control pain which can worsen hyponatremia -at this point ok to check bmp q12h -agree w/ 1.5L fluid limit; agree w/ no sodium limit hypokalemia -c/w reported diuretic use -had 80 mEq po already this admission; level acceptable now -will give po mag standing and check mag daily CKD3 -at outpt baseline; avoid nsaids calcaneal fracture/ recurrent falls >note that she had hypercalcemia at recent admission earlier this month with suppressed pth > PTH rp and 25 OH D pending; Ca levels ok this admission; both hyponatremia and hypercalcemia can be associated with higher fracture risk/ balance problems Appreciate consult; will follow with you.
[2016-09-08] MEDS ORDERED: MAGNESIUM CHLORIDE 64MG DELAYED REL TAB PO ONE (10:45)
[2016-09-08] MEDS: GABAPENTIN 300 MG CAP PO SCH (12:45)
--- NOTE | 2016-09-08 16:51 | Progress Note ---
Internal Med Progress Note Date of Service: Sep 08, 2016. Provider Documentation: SUBJECTIVE: complain of pain in left foot no fever or chills OBJECTIVE: Vital Signs-as noted below Exam: General-no sign of distress Eyes-sclera non icteric ENT-NAd Neck-no thyromegaly Lungs-CTA Heart-regular S1/S2 Abdomen-soft, non tender Extremities-no rash or deformity , Neuro-no focal neurological deficit Lab data as noted below. ASSESSMENT & PLAN: R CALCANEUS FX S/P FALL pt presents with R ankle pain s/p fall yesterday -admit to telemetry -Impression: Diffuse soft tissue swelling with acute appearing avulsion fracture from the lateral aspect of the anterior calcaneus -pain mgmt -appreciate consult form orthopedics -conservative approach - HYPONATREMIA -chronic -appreciate Nephrology eval cont 1.5 L fluid restriction monitor PRP , gradual correction HYPOKALEMIA replaced -pt denies acute coronary sxs ESBL UTI -cont IV Invanz ( to be completed 09/10/16) -pt denies urinary sxs CKD STAGE 3 -creatinine is around baseline at 1.4 INSULIN-DEPENDENT DM 2 -recent A1C 8.1 -Lantus 5 units BID -start ISS -monitor BSG AC HS CHRONIC ANEMIA -HgB currently around baseline at 9.6 (bl=10) ANXIETY/DEPRESSION -stable -cont Zoloft and Klonopin GERD -Zantac HTN -BP stable -cont Norvasc, Coreg, Clonidine, hydralazine -monitor DYSLIPIDEMIA -cont statin and fenofibrate DVT PROPHYLAXIS -subq Lovenox CODE STATUS -FULL CODE status per discussion with patient upon admission DISPOSITION will benefit form SNF PT/OT eval requested Vital Signs: Date Time Temp Pulse Resp B/P Pulse Ox O2 Delivery O2 Flow Rate FiO2 09/09/16 15:36 36.9 54 18 159/79 97 Room Air 09/09/16 08:00 Room Air 09/09/16 06:55 37.1 62 18 147/75 95 Room Air 09/09/16 00:00 Room Air 09/08/16 22:56 36.8 61 16 120/71 97 Room Air 09/08/16 21:01 66 134/85 09/08/16 18:58 36.7 60 16 156/83 98 Room Air Lab Results: Results Past 24 Hours Test 09/08/16 20:00 09/09/16 08:28 09/09/16 09:30 09/09/16 11:31 Range/Units Bedside Glucose 201 138 198 70-90 mg/dl Sodium Level 135 136-145 mmol/L Potassium Level 4.2 3.5-5.1 mmol/L Chloride Level 99 98-107 mmol/L Carbon Dioxide Level 28 21-32 mmol/L Anion Gap 8.0 3-11 mmol/L Blood Urea Nitrogen 17 7-18 mg/dl Creatinine 1.40 0.60-1.20 mg/dl Est Creatinine Clear Calc Drug Dose 44.8 ml/min Estimated GFR () 43.7 Estimated GFR (Non- 37.7 BUN/Creatinine Ratio 12.2 10-20 Random Glucose 132 70-99 mg/dl Calcium Level 8.6 8.5-10.1 mg/dl Magnesium Level 1.8 1.8-2.4 mg/dl Test 09/09/16 16:23 Range/Units Bedside Glucose 136 70-90 mg/dl
[2016-09-08] MEDS: ERTAPENEM IV 1 GM in SODIUM CHLOR 0.9% AD-VAN 50ML IV SCH (17:10)
[2016-09-08 17:39] LABS: BUN/CREATININE RATIO 12.5 (10-20); CALCIUM 8.5 mg/dl (8.5-10.1); CREATININE 1.4 mg/dl (0.60-1.20)
[2016-09-08] MEDS: CLONAZEPAM 1 MG TAB PO SCH (21:04)
[2016-09-08] MEDS: MAGNESIUM CHLORIDE 64MG DELAYED REL TAB PO SCH (21:08)
[2016-09-08] MEDS: ENOXAPARIN 40 MG/0.4 ML SYR SQ SCH (21:10)
[2016-09-09 06:55] VITALS: BP 147/75; PULSE 62; TEMP 37.1; O2SAT 95
[2016-09-09] MEDS: FLUTICASONE PROPIONATE NA SPR 16 GM BTL NAE SCH (08:17)
[2016-09-09] MEDS: CLONIDINE HCL 0.1 MG TAB PO SCH ×2 (08:18→21:40)
[2016-09-09] MEDS: ROSUVASTATIN CALCIUM 20 MG TAB PO SCH (08:19)
[2016-09-09] MEDS: CARVEDILOL 12.5 MG TAB PO SCH ×2 (08:19→21:00)
[2016-09-09] MEDS: ASPIRIN 325 MG ECTAB PO SCH (08:19)
[2016-09-09] MEDS: LACTOBACILLUS ACIDOPHILUS (FLORANEX) TAB PO SCH ×3 (08:20→21:37)
[2016-09-09] MEDS: GABAPENTIN 600 MG TAB PO SCH ×2 (08:21→21:38)
[2016-09-09] MEDS: PANTOprazole SOD 40 MG TAB PO SCH (08:24)
[2016-09-09] MEDS: TOPIRAMATE 25 MG TAB PO SCH ×2 (08:24→21:39)
[2016-09-09] MEDS: MAGNESIUM CHLORIDE 64MG DELAYED REL TAB PO SCH ×2 (08:24→21:38)
[2016-09-09] MEDS: FENOFIBRATE 145 MG TAB PO SCH (08:24)
[2016-09-09] MEDS: AMLODIPINE BESYLATE 5 MG TAB PO SCH (08:24)
[2016-09-09] MEDS: RANITIDINE HCL 150 MG TAB PO SCH ×2 (08:25→21:38)
[2016-09-09] MEDS: SERTRALINE HCL 50 MG TAB PO SCH (08:25)
[2016-09-09] MEDS: CHOLECALCIFEROL 1000 INTER.UNIT TAB PO SCH (08:25)
[2016-09-09] MEDS: INSULIN GLARGINE SOLOSTAR 100 UNITS/ML 3 ML PEN SC SCH ×2 (08:31→21:43)
--- NOTE | 2016-09-09 10:03 | Nephrology Progress Note ---
Nephrology Progress Note Date of Service: Sep 09, 2016. Subjective moved out of tele; no issues w/ po; has boot on R leg and c/o its wt; no voiding or bowel complaints; not dyspneic Objective Date Time Temp Pulse Resp B/P Pulse Ox O2 Delivery O2 Flow Rate FiO2 09/09/16 06:55 37.1 62 18 147/75 95 Room Air 09/09/16 00:00 Room Air 09/08/16 22:56 36.8 61 16 120/71 97 Room Air 09/08/16 21:01 66 134/85 09/08/16 18:58 36.7 60 16 156/83 98 Room Air 09/08/16 18:17 36.8 57 18 95 09/08/16 16:00 95 Room Air 09/08/16 15:16 36.8 57 18 126/83 96 Room Air 09/08/16 12:00 96 Room Air 09/08/16 11:55 36.8 60 20 118/73 95 Room Air Physical Exam: General Appearance: WD/WN, no apparent distress, + obese, + pertinent finding ( on RA) Eyes: EOMI ENT: hearing grossly normal, + pertinent finding (has wig/alopecia) Neck: supple Respiratory/Chest: lungs clear, no respiratory distress, + decreased breath sounds Cardiovascular: + systolic murmur, + irregularly irregular, distant hs Abdomen: normal bowel sounds, non tender, soft, + pertinent finding (no roldan) Extremities: + swelling (trace L ankle; R boot; limbs are obese) Neurologic/Psych: alert, normal mood/affect, oriented x 3 (slight psychomotor delay) Skin: + pallor Current Inpatient Medications Medications (Trade) Dose Ordered Sig/Hansel Route Start Time Stop Time Status Last Admin Dose Admin Acetaminophen (Tylenol Tab) 650 mg Q4H PRN PO 09/07/16 11:30 10/07/16 11:29 Hydromorphone HCl (Dilaudid Inj) 1 mg Q2H PRN IV 09/07/16 11:45 09/21/16 11:44 Oxycodone HCl (Roxicodone Immediate Rel Tab) 5 mg Q6H PRN PO 09/07/16 11:45 09/21/16 11:44 Oxycodone HCl (Roxicodone Immediate Rel Tab) 10 mg Q6H PRN PO 09/07/16 11:45 09/21/16 11:44 Insulin Aspart (novoLOG ASPART) SLIDING SCALE If C... ACHS SC 09/07/16 16:00 10/07/16 15:59 09/08/16 21:00 2 UNITS Glucose (Glucose 40% Gel) 15-30 GRAMS 15 GRAMS... UD PRN PO 09/07/16 12:30 10/07/16 12:29 Glucose (Glucose Chew Tab) 4-8 Tablets 4 Tabl... UD PRN PO 09/07/16 12:30 10/07/16 12:29 Dextrose (Dextrose 50% 50ML Syringe) 25-50ML OF 50% DW IV FOR... UD PRN IV 09/07/16 12:30 10/07/16 12:29 Glucagon (Glucagon Inj) 1 mg UD PRN SQ 09/07/16 12:30 10/07/16 12:29 Amlodipine Besylate (Norvasc Tab) 10 mg DAILY PO 09/08/16 09:00 10/08/16 08:59 09/09/16 08:24 10 MG Aspirin (Ecotrin Tab) 325 mg DAILY PO 09/08/16 09:00 10/08/16 08:59 09/09/16 08:19 325 MG Carvedilol (Coreg Tab) 12.5 mg BID PO 09/07/16 21:00 10/07/16 20:59 09/09/16 08:19 12.5 MG Cholecalciferol (Vitamin D Tab) 1,000 inter.unit DAILY PO 09/08/16 09:00 10/08/16 08:59 09/09/16 08:25 1,000 INTER.UNIT Clonazepam (Klonopin Tab) 1 mg HS PO 09/07/16 21:00 10/07/16 20:59 09/08/16 21:04 1 MG Fenofibrate (Tricor Tab) 145 mg DAILY PO 09/08/16 09:00 10/08/16 08:59 09/09/16 08:24 145 MG Fluticasone Propionate (Flonase Nasal [place]) 2 sprays DAILY ANSELMO 09/08/16 09:00 10/08/16 08:59 09/09/16 08:17 2 SPRAYS Gabapentin (Neurontin Tab) 600 mg Q12 PO 09/07/16 21:00 10/07/16 20:59 09/09/16 08:21 600 MG Gabapentin (Neurontin Cap) 300 mg DAILY@1200 PO 09/07/16 12:30 10/07/16 12:29 09/08/16 12:45 300 MG Hydralazine HCl (Apresoline Tab) 50 mg TID PO 09/07/16 14:00 10/07/16 13:59 09/09/16 08:18 50 MG Acetaminophen/ Hydrocodone Bitart ([place] 5/325 Tab) 2 tab BID PRN PO 09/07/16 12:30 09/21/16 12:29 09/08/16 08:51 2 TAB Lactobacillus Acidophilus (Floranex Tab) 2 tab TID PO 09/07/16 14:00 10/07/16 13:59 09/09/16 08:20 2 TAB Polyethylene (Miralax Powder Packet) 17 gm DAILY PRN PO 09/07/16 12:30 10/07/16 12:29 Ranitidine HCl (zANTac TAB) 150 mg BID PO 09/07/16 21:00 10/07/16 20:59 09/09/16 08:25 150 MG Rosuvastatin Calcium (Crestor Tab) 40 mg DAILY PO 09/08/16 09:00 10/08/16 08:59 09/09/16 08:19 40 MG Senna/Docusate Sodium (Senokot S Tab) 2 tab HS PRN PO 09/07/16 14:00 10/07/16 13:59 Sertraline HCl (Zoloft Tab) 25 mg DAILY PO 09/08/16 09:00 10/08/16 08:59 09/09/16 08:25 25 MG Topiramate (Topamax Tab) 25 mg BID PO 09/07/16 21:00 10/07/16 20:59 09/09/16 08:24 25 MG Benzocaine/ Antipyrine (Auralgan Otic Soln) 2 drops QID PRN OT 09/07/16 12:30 10/07/16 12:29 Clonidine HCl (Catapres Tab) 0.2 mg BID PO 09/07/16 21:00 10/07/16 20:59 09/09/16 08:18 0.2 MG Pantoprazole Sodium (Protonix Tab) 40 mg QAM PO 09/08/16 09:00 10/08/16 08:59 09/09/16 08:24 40 MG Insulin Glargine 5 unit 5 unit BID SC 09/07/16 15:00 10/07/16 14:59 09/09/16 08:31 5 UNIT Ertapenem/Sodium Chloride (Invanz Iv/Nss Ad-Van 50ml) 50 ml @ 100 mls/hr DAILY@1600 IV 09/07/16 16:00 09/10/16 15:59 09/08/16 17:10 100 MLS/HR Enoxaparin Sodium (Lovenox Inj) 40 mg HS SQ 09/07/16 21:00 10/07/16 20:59 09/08/16 21:10 40 MG Miconazole Nitrate (Desenex Powder) 1 appln DAILY PRN EXT 09/07/16 21:45 10/07/16 21:44 Magnesium Chloride (Slow-Mag Tab) 64 mg BID PO 09/08/16 21:00 10/08/16 20:59 09/09/16 08:24 64 MG Last 24 Hours Test 09/08/16 11:02 09/08/16 16:35 09/08/16 17:05 09/08/16 20:00 Bedside Glucose 181 mg/dl 167 mg/dl 201 mg/dl Sodium Level 131 mmol/L Potassium Level 4.0 mmol/L Chloride Level 95 mmol/L Carbon Dioxide Level 25 mmol/L Anion Gap 11.0 mmol/L Blood Urea Nitrogen 18 mg/dl Creatinine 1.40 mg/dl Est Creatinine Clear Calc Drug Dose 44.8 ml/min Estimated GFR () 43.7 Estimated GFR (Non- 37.7 BUN/Creatinine Ratio 12.5 Random Glucose 155 mg/dl Calcium Level 8.5 mg/dl Test 09/09/16 04:44 09/09/16 08:28 Bedside Glucose 138 mg/dl Assessment & Plan 71 y/o F w/ recurrent hyponatremia attributed to low solute diet this time admitted after a fall w/ R calcaneal fracture and undergoing ertapenem therapy for ESBL E coli UTI. Also w/ hx of CKD 3 hyponatremia euvolemic and chronic > suspect multifactorial with combined low solute diet and lasix use; she was recently admitted here w/ hypovolemic hyponatremia but that is not the etiology this time She has had no diuretics, no IVF since presentation and sodium improving simply w/ fluid restriction > urine studies from several hours after admission consistent with polydipsia. she is on several meds that promote LE edema, including many of her bp meds ->>>>for now would use no lasix unless respiratory distress, no IVF but will look to start lasix soon -cont 1.5L fluid limit -goal Na for am tomorrow is 138 -control pain which can worsen hyponatremia -at this point ok to check bmp q12h> f/u today's labs -agree w/ 1.5L fluid limit -at this point start 2 gm daily na limit hypokalemia -c/w reported diuretic use -had 80 mEq po already this admission; level acceptable now; no standing K dose currently >> f/u level -will give po mag standing and check mag daily>f/u level today CKD3 -at outpt baseline; avoid nsaids calcaneal fracture/ recurrent falls >note that she had hypercalcemia at recent admission earlier this month with suppressed pth > PTH rp pending; Ca levels ok this admission; both hyponatremia and hypercalcemia can be associated with higher fracture risk/balance problems; D levels low and will start D 3 TSH suppressed mildly at admission -not on meds; defer to primary service; not clinically hyperthyroid Appreciate consult; will follow with you.
[2016-09-09 10:32] LABS: BUN/CREATININE RATIO 12.2 (10-20); CALCIUM 8.6 mg/dl (8.5-10.1); CREATININE 1.4 mg/dl (0.60-1.20); MAGNESIUM 1.8 mg/dl (1.8-2.4); POTASSIUM 4.2 mmol/L (3.5-5.1)
[2016-09-09] MEDS: INSULIN ASPART 100 UNITS/ML 3 ML PEN SC SCH ×4 (10:49→21:00)
[2016-09-09] MEDS: GABAPENTIN 300 MG CAP PO SCH (12:03)
--- NOTE | 2016-09-09 14:05 | Orthopedic Progress Note ---
Orthopedic Progress Note Date of Service Sep 09, 2016. Subjective Additional Notes: Resting comfortably. Hoping to go home soon. States that her ankle is feeling fine with the 3D cam walker. Objective N/V intact, capillary refill less than 2 sec., toes mobile Cam walking boot in place. Ankle continues with swelling. Date Time Temp Pulse Resp B/P Pulse Ox O2 Delivery O2 Flow Rate FiO2 09/09/16 08:00 Room Air 09/09/16 06:55 37.1 62 18 147/75 95 Room Air 09/09/16 00:00 Room Air 09/08/16 22:56 36.8 61 16 120/71 97 Room Air 09/08/16 21:01 66 134/85 09/08/16 18:58 36.7 60 16 156/83 98 Room Air 09/08/16 18:17 36.8 57 18 95 09/08/16 16:00 95 Room Air 09/08/16 15:16 36.8 57 18 126/83 96 Room Air Assessment & Plan Assessment: 1. Avulsion fracture, anterior calcaneus. 2. Lateral ankle sprain Plan: Patient to be fit for low tide walking boot, may WBAT with boot and walker as needed. cont to ice/elevate above heart level. may remove to work on gentle ROM as tolerated. f/u at [facility] in 2 weeks for repeat xrays, sooner if having any problems. cont w/ current pain med regimen, tolerating well to this point. Ortho will sign off for now. Please call with any questions.
[2016-09-09 15:36] VITALS: BP 159/79; PULSE 54; TEMP 36.9; O2SAT 97
[2016-09-09 15:45] VITALS: O2SAT 97
[2016-09-09] MEDS: ERTAPENEM IV 1 GM in SODIUM CHLOR 0.9% AD-VAN 50ML IV SCH (15:50)
[2016-09-09] MEDS: HYDROCODONE/ACETAMOPHEN 5/325MG TAB PO PRN (15:51)
--- NOTE | 2016-09-09 17:52 | Progress Note ---
Internal Med Progress Note Date of Service: Sep 09, 2016. Provider Documentation: SUBJECTIVE: has minimum pain on rt foot OBJECTIVE: Vital Signs-as noted below Exam: General-no sign of distress Eyes-sclera non icteric ENT-NAd Neck-no thyromegaly Lungs-CTA Heart-regular S1/S2 Abdomen-soft, non tender Extremities-no rash or deformity , Neuro-no focal neurological deficit Lab data as noted below. ASSESSMENT & PLAN: R CALCANEUS FX S/P FALL appreciate Ortho eval conservative approach -pt fitted with walking boot wt bearing as tolerated with boot and walker follow up with Orthopedics in office in 2 weeks - HYPONATREMIA -chronic , euvolemic with component of SIADH -Na level improved 135 -appreciate Nephrology eval cont 1.5 L fluid restriction monitor PRP , gradual correction HYPOKALEMIA replaced ESBL UTI -cont IV Invanz last dose tomorrow 09/10/16 CKD STAGE 3 -creatinine is around baseline at 1.4 INSULIN-DEPENDENT DM 2 -recent A1C 8.1 -Lantus 5 units BID -start ISS -monitor BSG AC HS CHRONIC ANEMIA -HgB currently around baseline at 9.6 (bl=10) ANXIETY/DEPRESSION -stable -cont Zoloft and Klonopin GERD -Zantac HTN -BP stable -cont Norvasc, Coreg, Clonidine, hydralazine -monitor DYSLIPIDEMIA -cont statin and fenofibrate DVT PROPHYLAXIS -subq Lovenox CODE STATUS -FULL CODE status per discussion with patient upon admission DISPOSITION will benefit form SNF PT/OT eval requested Vital Signs: Date Time Temp Pulse Resp B/P Pulse Ox O2 Delivery O2 Flow Rate FiO2 09/10/16 15:50 36.6 64 18 113/51 96 Room Air 09/10/16 08:10 Room Air 09/10/16 07:48 36.6 64 18 159/78 97 Room Air 09/10/16 00:20 36.8 58 16 147/75 91 Room Air 09/10/16 00:00 Room Air 09/09/16 21:36 50 112/69 Lab Results: Results Past 24 Hours Test 09/09/16 21:14 09/10/16 06:45 09/10/16 07:12 09/10/16 11:22 Range/Units Bedside Glucose 125 120 188 70-90 mg/dl White Blood Count 6.94 4.8-10.8 K/uL Red Blood Count 3.18 4.2-5.4 M/uL Hemoglobin 9.6 12.0-16.0 g/dL Hematocrit 27.6 37-47 % Mean Corpuscular Volume 86.8 80-100 fL Mean Corpuscular Hemoglobin 30.2 25-34 pg Mean Corpuscular Hemoglobin Concent 34.8 32-36 g/dl RDW Standard Deviation 46.2 36.4-46.3 fL RDW Coefficient of Variation 14.9 11.5-14.5 % Platelet Count 244 130-400 K/uL Mean Platelet Volume 10.2 7.4-10.4 fL Nucleated RBC Absolute Count (auto) 0.03 0-0 K/uL Nucleated Red Blood Cells % 0.4 % Sodium Level 140 136-145 mmol/L Potassium Level 4.1 3.5-5.1 mmol/L Chloride Level 103 98-107 mmol/L Carbon Dioxide Level 25 21-32 mmol/L Anion Gap 12.0 3-11 mmol/L Blood Urea Nitrogen 17 7-18 mg/dl Creatinine 1.40 0.60-1.20 mg/dl Est Creatinine Clear Calc Drug Dose 44.8 ml/min Estimated GFR () 43.7 Estimated GFR (Non- 37.7 BUN/Creatinine Ratio 11.9 10-20 Random Glucose 122 70-99 mg/dl Calcium Level 8.8 8.5-10.1 mg/dl Magnesium Level 2.1 1.8-2.4 mg/dl Test 09/10/16 16:18 Range/Units Bedside Glucose 135 70-90 mg/dl
[2016-09-09] MEDS: ENOXAPARIN 40 MG/0.4 ML SYR SQ SCH (21:34)
[2016-09-09] MEDS: CLONAZEPAM 1 MG TAB PO SCH (21:34)
[2016-09-09 21:36] VITALS: BP 112/69; PULSE 50
[2016-09-10 00:20] VITALS: BP 147/75; PULSE 58; TEMP 36.8; O2SAT 91
[2016-09-10 07:48] VITALS: BP 159/78; PULSE 64; TEMP 36.6; O2SAT 97
[2016-09-10 07:52] LABS: BUN/CREATININE RATIO 11.9 (10-20); CALCIUM 8.8 mg/dl (8.5-10.1); CREATININE 1.4 mg/dl (0.60-1.20); MAGNESIUM 2.1 mg/dl (1.8-2.4); POTASSIUM 4.1 mmol/L (3.5-5.1)
[2016-09-10 08:05] LABS: HEMATOCRIT 27.6 % (37-47); MEAN CELL VOLUME 86.8 fL (80-100); MEAN CORPUSCULAR HEMOGLOBIN 30.2 pg (25-34); MEAN CORPUSCULAR HGB CONC 34.8 g/dl (32-36); MEAN PLATELET VOLUME 10.2 fL (7.4-10.4); PLATELET COUNT 244 K/uL (130-400); RED BLOOD COUNT 3.18 M/uL (4.2-5.4); WHITE BLOOD COUNT 6.94 K/uL (4.8-10.8)
[2016-09-10] MEDS: FLUTICASONE PROPIONATE NA SPR 16 GM BTL NAE SCH (08:24)
[2016-09-10] MEDS: CARVEDILOL 12.5 MG TAB PO SCH ×2 (08:28→20:43)
[2016-09-10] MEDS: CLONIDINE HCL 0.1 MG TAB PO SCH ×2 (08:28→20:46)
[2016-09-10] MEDS: ASPIRIN 325 MG ECTAB PO SCH (08:29)
[2016-09-10] MEDS: LACTOBACILLUS ACIDOPHILUS (FLORANEX) TAB PO SCH ×3 (08:29→20:47)
[2016-09-10] MEDS: ROSUVASTATIN CALCIUM 20 MG TAB PO SCH (08:29)
[2016-09-10] MEDS: FENOFIBRATE 145 MG TAB PO SCH (08:31)
[2016-09-10] MEDS: TOPIRAMATE 25 MG TAB PO SCH ×2 (08:31→20:47)
[2016-09-10] MEDS: AMLODIPINE BESYLATE 5 MG TAB PO SCH (08:31)
[2016-09-10] MEDS: MAGNESIUM CHLORIDE 64MG DELAYED REL TAB PO SCH ×2 (08:31→20:47)
[2016-09-10] MEDS: PANTOprazole SOD 40 MG TAB PO SCH (08:31)
[2016-09-10] MEDS: GABAPENTIN 600 MG TAB PO SCH ×2 (08:31→20:45)
[2016-09-10] MEDS: CHOLECALCIFEROL 1000 INTER.UNIT TAB PO SCH (08:32)
[2016-09-10] MEDS: RANITIDINE HCL 150 MG TAB PO SCH ×2 (08:32→20:46)
[2016-09-10] MEDS: SERTRALINE HCL 50 MG TAB PO SCH (08:32)
[2016-09-10] MEDS: INSULIN ASPART 100 UNITS/ML 3 ML PEN SC SCH ×4 (08:35→21:02)
[2016-09-10] MEDS: INSULIN GLARGINE SOLOSTAR 100 UNITS/ML 3 ML PEN SC SCH ×2 (08:35→21:02)
[2016-09-10] MEDS: HYDROCODONE/ACETAMOPHEN 5/325MG TAB PO PRN (08:36)
--- NOTE | 2016-09-10 08:59 | Nephrology Progress Note ---
Nephrology Progress Note Date of Service: Sep 10, 2016. Subjective no issues w/ po intake; no n/v; has boot on R leg and c/o its wt; no voiding or bowel complaints; not dyspneic; very anxious about not using lasix > concern for LE edema at home; c/o chronic stable low back pain Objective Date Time Temp Pulse Resp B/P Pulse Ox O2 Delivery O2 Flow Rate FiO2 09/10/16 07:48 36.6 64 18 159/78 97 Room Air 09/10/16 00:20 36.8 58 16 147/75 91 Room Air 09/10/16 00:00 Room Air 09/09/16 21:36 50 112/69 09/09/16 15:45 97 Room Air 09/09/16 15:36 36.9 54 18 159/79 97 Room Air Physical Exam: General Appearance: WD/WN, no apparent distress, + obese, + pertinent finding ( on RA) Eyes: EOMI ENT: hearing grossly normal, + pertinent finding (has wig/alopecia) Neck: supple Respiratory/Chest: lungs clear, no respiratory distress, + decreased breath sounds Cardiovascular: + irregularly irregular, distant hs Abdomen: normal bowel sounds, non tender, soft, + pertinent finding (no roldan) Extremities: + swelling (trace L ankle; R boot; limbs are obese) Neurologic/Psych: alert, normal mood/affect, oriented x 3 (slight psychomotor delay) Skin: + pallor Current Inpatient Medications Medications (Trade) Dose Ordered Sig/Hansel Route Start Time Stop Time Status Last Admin Dose Admin Acetaminophen (Tylenol Tab) 650 mg Q4H PRN PO 09/07/16 11:30 10/07/16 11:29 Hydromorphone HCl (Dilaudid Inj) 1 mg Q2H PRN IV 09/07/16 11:45 09/21/16 11:44 Oxycodone HCl (Roxicodone Immediate Rel Tab) 5 mg Q6H PRN PO 09/07/16 11:45 09/21/16 11:44 Oxycodone HCl (Roxicodone Immediate Rel Tab) 10 mg Q6H PRN PO 09/07/16 11:45 09/21/16 11:44 Insulin Aspart (novoLOG ASPART) SLIDING SCALE If C... ACHS SC 09/07/16 16:00 10/07/16 15:59 09/10/16 08:35 3 UNITS Glucose (Glucose 40% Gel) 15-30 GRAMS 15 GRAMS... UD PRN PO 09/07/16 12:30 10/07/16 12:29 Glucose (Glucose Chew Tab) 4-8 Tablets 4 Tabl... UD PRN PO 09/07/16 12:30 10/07/16 12:29 Dextrose (Dextrose 50% 50ML Syringe) 25-50ML OF 50% DW IV FOR... UD PRN IV 09/07/16 12:30 10/07/16 12:29 Glucagon (Glucagon Inj) 1 mg UD PRN SQ 09/07/16 12:30 10/07/16 12:29 Amlodipine Besylate (Norvasc Tab) 10 mg DAILY PO 09/08/16 09:00 10/08/16 08:59 09/09/16 08:24 10 MG Aspirin (Ecotrin Tab) 325 mg DAILY PO 09/08/16 09:00 10/08/16 08:59 09/09/16 08:19 325 MG Carvedilol (Coreg Tab) 12.5 mg BID PO 09/07/16 21:00 10/07/16 20:59 09/09/16 08:19 12.5 MG Cholecalciferol (Vitamin D Tab) 1,000 inter.unit DAILY PO 09/08/16 09:00 10/08/16 08:59 09/09/16 08:25 1,000 INTER.UNIT Clonazepam (Klonopin Tab) 1 mg HS PO 09/07/16 21:00 10/07/16 20:59 09/09/16 21:34 1 MG Fenofibrate (Tricor Tab) 145 mg DAILY PO 09/08/16 09:00 10/08/16 08:59 09/09/16 08:24 145 MG Fluticasone Propionate (Flonase Nasal [place]) 2 sprays DAILY ANSELMO 09/08/16 09:00 10/08/16 08:59 09/09/16 08:17 2 SPRAYS Gabapentin (Neurontin Tab) 600 mg Q12 PO 09/07/16 21:00 10/07/16 20:59 09/09/16 21:38 600 MG Gabapentin (Neurontin Cap) 300 mg DAILY@1200 PO 09/07/16 12:30 10/07/16 12:29 09/09/16 12:03 300 MG Hydralazine HCl (Apresoline Tab) 50 mg TID PO 09/07/16 14:00 10/07/16 13:59 09/09/16 21:40 50 MG Acetaminophen/ Hydrocodone Bitart ([place] 5/325 Tab) 2 tab BID PRN PO 09/07/16 12:30 09/21/16 12:29 09/09/16 15:51 2 TAB Lactobacillus Acidophilus (Floranex Tab) 2 tab TID PO 09/07/16 14:00 10/07/16 13:59 09/09/16 21:37 2 TAB Polyethylene (Miralax Powder Packet) 17 gm DAILY PRN PO 09/07/16 12:30 10/07/16 12:29 Ranitidine HCl (zANTac TAB) 150 mg BID PO 09/07/16 21:00 10/07/16 20:59 09/09/16 21:38 150 MG Rosuvastatin Calcium (Crestor Tab) 40 mg DAILY PO 09/08/16 09:00 10/08/16 08:59 09/09/16 08:19 40 MG Senna/Docusate Sodium (Senokot S Tab) 2 tab HS PRN PO 09/07/16 14:00 10/07/16 13:59 Sertraline HCl (Zoloft Tab) 25 mg DAILY PO 09/08/16 09:00 10/08/16 08:59 09/09/16 08:25 25 MG Topiramate (Topamax Tab) 25 mg BID PO 09/07/16 21:00 10/07/16 20:59 09/09/16 21:39 25 MG Benzocaine/ Antipyrine (Auralgan Otic Soln) 2 drops QID PRN OT 09/07/16 12:30 10/07/16 12:29 Clonidine HCl (Catapres Tab) 0.2 mg BID PO 09/07/16 21:00 10/07/16 20:59 09/09/16 21:40 0.2 MG Pantoprazole Sodium (Protonix Tab) 40 mg QAM PO 09/08/16 09:00 10/08/16 08:59 09/09/16 08:24 40 MG Insulin Glargine 5 unit 5 unit BID SC 09/07/16 15:00 10/07/16 14:59 09/10/16 08:35 5 UNIT Ertapenem/Sodium Chloride (Invanz Iv/Nss Ad-Van 50ml) 50 ml @ 100 mls/hr DAILY@1600 IV 09/07/16 16:00 09/10/16 15:59 09/09/16 15:50 100 MLS/HR Enoxaparin Sodium (Lovenox Inj) 40 mg HS SQ 09/07/16 21:00 10/07/16 20:59 09/09/16 21:34 40 MG Miconazole Nitrate (Desenex Powder) 1 appln DAILY PRN EXT 09/07/16 21:45 10/07/16 21:44 Magnesium Chloride (Slow-Mag Tab) 64 mg BID PO 09/08/16 21:00 10/08/16 20:59 09/09/16 21:38 64 MG Last 24 Hours Test 09/09/16 09:30 09/09/16 11:31 09/09/16 16:23 09/09/16 21:14 Sodium Level 135 mmol/L Potassium Level 4.2 mmol/L Chloride Level 99 mmol/L Carbon Dioxide Level 28 mmol/L Anion Gap 8.0 mmol/L Blood Urea Nitrogen 17 mg/dl Creatinine 1.40 mg/dl Est Creatinine Clear Calc Drug Dose 44.8 ml/min Estimated GFR () 43.7 Estimated GFR (Non- 37.7 BUN/Creatinine Ratio 12.2 Random Glucose 132 mg/dl Calcium Level 8.6 mg/dl Magnesium Level 1.8 mg/dl Bedside Glucose 198 mg/dl 136 mg/dl 125 mg/dl Test 09/10/16 06:45 09/10/16 07:12 White Blood Count 6.94 K/uL Red Blood Count 3.18 M/uL Hemoglobin 9.6 g/dL Hematocrit 27.6 % Mean Corpuscular Volume 86.8 fL Mean Corpuscular Hemoglobin 30.2 pg Mean Corpuscular Hemoglobin Concent 34.8 g/dl RDW Standard Deviation 46.2 fL RDW Coefficient of Variation 14.9 % Platelet Count 244 K/uL Mean Platelet Volume 10.2 fL Nucleated RBC Absolute Count (auto) 0.03 K/uL Nucleated Red Blood Cells % 0.4 % Sodium Level 140 mmol/L Potassium Level 4.1 mmol/L Chloride Level 103 mmol/L Carbon Dioxide Level 25 mmol/L Anion Gap 12.0 mmol/L Blood Urea Nitrogen 17 mg/dl Creatinine 1.40 mg/dl Est Creatinine Clear Calc Drug Dose 44.8 ml/min Estimated GFR () 43.7 Estimated GFR (Non- 37.7 BUN/Creatinine Ratio 11.9 Random Glucose 122 mg/dl Calcium Level 8.8 mg/dl Magnesium Level 2.1 mg/dl Bedside Glucose 120 mg/dl Assessment & Plan 71 y/o F w/ recurrent hyponatremia attributed to low solute diet this time admitted after a fall w/ R calcaneal fracture and undergoing ertapenem therapy for ESBL E coli UTI. Also w/ hx of CKD 3 hyponatremia euvolemic and chronic > suspect multifactorial with combined low solute diet and inappropriate lasix use ; she was recently admitted here w/ hypovolemic hyponatremia but that is not the etiology this time She has had no diuretics, no IVF since presentation and sodium improving simply w/ fluid restriction > urine studies from several hours after admission consistent with polydipsia. she is on several meds that promote LE edema, including many of her bp meds ->>>>for now would use no lasix unless respiratory distress -cont 1.5L fluid limit and this should be cont at hospital d/c -control pain which can worsen hyponatremia -at this point start 2 gm daily na limit >> this should be cont at hospital d/c >>>>>recommend NO metolazone at hospital d/c >>>>recommend 20 mg lasix prn swelling daily at most TWICE weekly > if needing more than this needs to check/follow labs more frequently; alternatively could simply d/c on no lasix > I am recommending prn only b/c pt is concerned about edema; she's had no diuretics for over 4 days here however and has not needed them in my opinion >>>>her albumin is 2.2 >>this will predispose her to edema; consider protein supplement shakes and/or dietary consult; protein shakes do not count toward fluid limit HTN -controlled on multiple meds, some of which can cause swelling but would not attempt to modify at this time; she has minimal swelling hypokalemia -c/w reported diuretic use -had 80 mEq po already this admission; level acceptable now; no standing K dose currently and anticipate none needed at d/c -will give po mag standing and check mag daily>f/u level today CKD3 -at outpt baseline (1.4-1.7 for past 2 years; follows w/ Dr. Saab in [facility]); avoid nsaids >recommend outpt follow up with Dr. Saab in 3-4 wks calcaneal fracture/ recurrent falls >note that she had hypercalcemia at recent admission earlier this month with suppressed pth > PTH rp pending as of 09/10; Ca levels ok this admission; >>significant ambulatory dysfunction at baseline >>consider PT consult if clinically appropriate >>>both hyponatremia and hypercalcemia can be associated with higher fracture risk/balance problems; D levels low and pt has been started on D 3 TSH suppressed mildly at admission -not on meds; defer to primary service; not clinically hyperthyroid Appreciate consult; will follow with you. Will coordinate w/ Dr Capone
[2016-09-10] MEDS: GABAPENTIN 300 MG CAP PO SCH (12:49)
[2016-09-10 15:50] VITALS: BP 113/51; PULSE 64; TEMP 36.6; O2SAT 96
[2016-09-10] MEDS ORDERED: HYDR-5688 PO ×2 (16:50)
[2016-09-10] MEDS ORDERED: LASIX PO ×2 (16:53)
--- NOTE | 2016-09-10 16:59 | Discharge Instructions ---
Discharge Instructions Admission Reason for Admission: Hyponatremia Discharge Discharge Diagnosis / Problem: RIGHT ANKLE SPRAIN /AVULSION FRACTURE OF LEFT ANT CALCANEUS /HYPONATREMIA Discharge Goals Goal(s): Improve disease control, Therapeutic intervention Activity Recommendations Activity Level: Assistance Required Therapies: Physical Therapy, Weight Bearing Status (RT LOWER EXT TOLERATED WITH BOOT AND WALKER ), Occupational Therapy Weightbearing Status: Right weightbearing (as tolerated) WT BEARING TOLERATED ON RT FOOT WITH BOOT AND WALKER BOOT CAN BE REMOVED TO WORK ON GENTLE ROM Additional Information Patient informed of condition: Yes Advance Directives: No DNR: No Level of Care: Acute Rehab Communicable Disease: No Prognosis: Stable Griffin Catheter: No Instructions / Follow-Up Instructions / Follow-Up FOLLOW UP WITH ORTHOPEDICS DR LONDON IN WEEKS , PLEASE CALL OFFICE FOR APPOINTMENT FAMILY PHYSICIAN FOLLOW UP AFTER DISCHARGE FORM REHAB LIMIT FLUID INTAKE 1.5 L A DAY Current Hospital Diet Patient's current hospital diet: Diabetes Type 2 Diet Discharge Diet Recommended Diet: Diabetes Type 2 Diet Fluid Restriction: 1500 ml (6 cups) Pending Studies Studies pending at discharge: yes List of pending studies: REPEAT BASIC METABOLIC PANEL IN 1 WEEK RIGHT FOOT XRAY 3 VIEW IN 2 WEEKS IN [facility] FOLLOW UP [facility] DR L[place]ON FOR REPORT AND EVALUATION Laboratory Results Hemoglobin A1c Test 08/30/16 03:34 Range/Units Estimated Average Glucose 186 mg/dl Hemoglobin A1c 8.1 H 4.5-5.6 % Medical Emergencies . Who to Call and When: Medical Emergencies: If at any time you feel your situation is an emergency, please call 911 immediately. . Non-Emergent Contact Non-Emergency issues call your: Primary Care Provider . . "Provider Documentation" section prepared by Roma Capone. Core Measure Problem Core Measures: None [place] Drug Monitoring Program Search Results: no issues identified
--- NOTE | 2016-09-10 17:00 | Progress Note ---
Internal Med Progress Note Date of Service: Sep 10, 2016. Provider Documentation: SUBJECTIVE: Offers no complain , has no pain or discomfort on rt foot no dizzy spell or lightheadedness Na level wnl today doing poorly with Physical therapy 1 person assist -pt ambulated 6' forwards with rolling walker, contact guard -Poor Tolerance -Recommend Rehab D/w pt initially reluctant to go to rehab , later after discussion understands that her Family -sisters and niece will not be able manage care at home -as she is requiring a lot of assistance for transfers and ADL's remains in high fall risk , agreeable for short term stay in [facility] OBJECTIVE: Vital Signs-as noted below Exam: General-no sign of distress Eyes-sclera non icteric ENT-NAd Neck-no thyromegaly Lungs-CTA Heart-regular S1/S2 Abdomen-soft, non tender Extremities-no rash or deformity , Rt foot in boot, trace edema Neuro-no focal neurological deficit Lab data as noted below. ASSESSMENT & PLAN: R CALCANEUS FX S/P FALL appreciate Ortho eval conservative approach -pt fitted with walking boot wt bearing as tolerated with boot and walker follow up with Orthopedics in office in 2 weeks -repeat Xray of Rt ankle in 2 weeks - HYPONATREMIA resolved with fluid restriction holding off Lasix -chronic , euvolemic with component of SIADH -appreciate Nephrology eval cont 1.5 L fluid restriction pt is instructed to avoid excessive diuresis -D/c Metolazone low dose Lasix 20 mg X2 week PRN for ankle swelling pt is counselling for off loading of leg, keep feet elevated if sitting for long time to prevent dependent edema HYPOKALEMIA replaced ESBL UTI -on IV Invanz completed course 09/10/16 CKD STAGE 3 -creatinine at baseline 1.4 INSULIN-DEPENDENT DM 2 -recent A1C 8.1 -Lantus 5 units BID -on ISS -monitor BSG AC HS CHRONIC ANEMIA due ot anemia of chronic disease /CKD -HgB currently around baseline at 9.6 (bl=10) ANXIETY/DEPRESSION -stable -cont Zoloft and Klonopin GERD -Zantac HTN -BP stable -cont Norvasc, Coreg, Clonidine, hydralazine -monitor DYSLIPIDEMIA -cont statin and fenofibrate DVT PROPHYLAXIS -High risk , obesity , minimum mobility for ankle fracture subq Lovenox CODE STATUS -FULL CODE DISPOSITION appreciate PT/OT eval recommend rehab pt is agreeable to [facility] team updated Vital Signs: Date Time Temp Pulse Resp B/P Pulse Ox O2 Delivery O2 Flow Rate FiO2 09/10/16 15:50 36.6 64 18 113/51 96 Room Air 09/10/16 08:10 Room Air 09/10/16 07:48 36.6 64 18 159/78 97 Room Air 09/10/16 00:20 36.8 58 16 147/75 91 Room Air 09/10/16 00:00 Room Air 09/09/16 21:36 50 112/69 Lab Results: Results Past 24 Hours Test 09/09/16 21:14 09/10/16 06:45 09/10/16 07:12 09/10/16 11:22 Range/Units Bedside Glucose 125 120 188 70-90 mg/dl White Blood Count 6.94 4.8-10.8 K/uL Red Blood Count 3.18 4.2-5.4 M/uL Hemoglobin 9.6 12.0-16.0 g/dL Hematocrit 27.6 37-47 % Mean Corpuscular Volume 86.8 80-100 fL Mean Corpuscular Hemoglobin 30.2 25-34 pg Mean Corpuscular Hemoglobin Concent 34.8 32-36 g/dl RDW Standard Deviation 46.2 36.4-46.3 fL RDW Coefficient of Variation 14.9 11.5-14.5 % Platelet Count 244 130-400 K/uL Mean Platelet Volume 10.2 7.4-10.4 fL Nucleated RBC Absolute Count (auto) 0.03 0-0 K/uL Nucleated Red Blood Cells % 0.4 % Sodium Level 140 136-145 mmol/L Potassium Level 4.1 3.5-5.1 mmol/L Chloride Level 103 98-107 mmol/L Carbon Dioxide Level 25 21-32 mmol/L Anion Gap 12.0 3-11 mmol/L Blood Urea Nitrogen 17 7-18 mg/dl Creatinine 1.40 0.60-1.20 mg/dl Est Creatinine Clear Calc Drug Dose 44.8 ml/min Estimated GFR () 43.7 Estimated GFR (Non- 37.7 BUN/Creatinine Ratio 11.9 10-20 Random Glucose 122 70-99 mg/dl Calcium Level 8.8 8.5-10.1 mg/dl Magnesium Level 2.1 1.8-2.4 mg/dl Test 09/10/16 16:18 Range/Units Bedside Glucose 135 70-90 mg/dl
[2016-09-10 20:41] VITALS: BP 140/70; PULSE 57; PULSE 64; O2SAT 96
[2016-09-10] MEDS: ENOXAPARIN 40 MG/0.4 ML SYR SQ SCH (20:45)
[2016-09-10] MEDS: CLONAZEPAM 1 MG TAB PO SCH (20:50)
[2016-09-10 23:11] VITALS: BP 153/76; PULSE 56; TEMP 36.8; O2SAT 93
[2016-09-11 06:33] LABS: BLOOD UREA NITROGEN 18 mg/dl (7-18); BUN/CREATININE RATIO 12.2 (10-20); CALCIUM 8.5 mg/dl (8.5-10.1); CARBON DIOXIDE 28 mmol/L (21-32); CHLORIDE 102 mmol/L (98-107); GLUCOSE 150 mg/dl (70-99); SODIUM 139 mmol/L (136-145)
[2016-09-11 07:55] VITALS: BP 157/79; PULSE 56; TEMP 36.9; O2SAT 95
[2016-09-11 08:10] LABS: POTASSIUM 4.7 mmol/L (3.5-5.1)
[2016-09-11 08:11] LABS: MAGNESIUM 2.1 mg/dl (1.8-2.4)
[2016-09-11] MEDS: LACTOBACILLUS ACIDOPHILUS (FLORANEX) TAB PO SCH ×3 (09:20→20:43)
[2016-09-11] MEDS: TOPIRAMATE 25 MG TAB PO SCH ×2 (09:20→20:40)
[2016-09-11] MEDS: CHOLECALCIFEROL 1000 INTER.UNIT TAB PO SCH (09:21)
[2016-09-11] MEDS: FENOFIBRATE 145 MG TAB PO SCH (09:21)
[2016-09-11] MEDS: MAGNESIUM CHLORIDE 64MG DELAYED REL TAB PO SCH ×2 (09:21→20:42)
[2016-09-11] MEDS: PANTOprazole SOD 40 MG TAB PO SCH (09:21)
[2016-09-11] MEDS: ROSUVASTATIN CALCIUM 20 MG TAB PO SCH (09:22)
[2016-09-11] MEDS: AMLODIPINE BESYLATE 5 MG TAB PO SCH (09:23)
[2016-09-11] MEDS: CARVEDILOL 12.5 MG TAB PO SCH ×2 (09:23→20:38)
[2016-09-11] MEDS: RANITIDINE HCL 150 MG TAB PO SCH ×2 (09:24→20:39)
[2016-09-11] MEDS: SERTRALINE HCL 50 MG TAB PO SCH (09:24)
[2016-09-11] MEDS: GABAPENTIN 600 MG TAB PO SCH ×2 (09:25→20:42)
[2016-09-11] MEDS: CLONIDINE HCL 0.1 MG TAB PO SCH ×2 (09:26→20:44)
[2016-09-11] MEDS: OXYCODONE HCL IR 5 MG TAB (IMMEDIATE RELEASE) PO PRN (09:33)
[2016-09-11] MEDS: FLUTICASONE PROPIONATE NA SPR 16 GM BTL NAE SCH (09:35)
[2016-09-11] MEDS: MICONAZOLE NITRATE POWDER 43 GM EXT PRN (09:35)
[2016-09-11] MEDS: INSULIN ASPART 100 UNITS/ML 3 ML PEN SC SCH ×4 (09:41→20:45)
[2016-09-11] MEDS: INSULIN GLARGINE SOLOSTAR 100 UNITS/ML 3 ML PEN SC SCH ×2 (09:42→20:48)
[2016-09-11] MEDS: ASPIRIN 325 MG ECTAB PO SCH (09:53)
--- NOTE | 2016-09-11 12:37 | Nephrology Progress Note ---
Nephrology Progress Note Date of Service: Sep 11, 2016. Subjective no issues w/ po intake; no n/v; denies voiding or bowel complaints; not dyspneic ; stable low back pain Objective Date Time Temp Pulse Resp B/P Pulse Ox O2 Delivery O2 Flow Rate FiO2 09/11/16 07:55 36.9 56 16 157/79 95 Room Air 09/11/16 00:00 Room Air 09/10/16 23:11 36.8 56 18 153/76 93 Room Air 09/10/16 20:41 57 140/70 96 Room Air 09/10/16 20:00 Room Air 09/10/16 15:50 36.6 64 18 113/51 96 Room Air Physical Exam: General Appearance: WD/WN, no apparent distress, + obese, + pertinent finding ( on RA) Eyes: EOMI ENT: hearing grossly normal, + pertinent finding (has wig/alopecia) Neck: supple Respiratory/Chest: lungs clear, no respiratory distress, + decreased breath sounds Cardiovascular: distant hs Abdomen: normal bowel sounds, non tender, soft, + pertinent finding (no roldan) Extremities: no edema; R boot; limbs are obese) Neurologic/Psych: alert, normal mood/affect, oriented x 3 (slight psychomotor delay) Skin: + pallor Current Inpatient Medications Medications (Trade) Dose Ordered Sig/Hansel Route Start Time Stop Time Status Last Admin Dose Admin Acetaminophen (Tylenol Tab) 650 mg Q4H PRN PO 09/07/16 11:30 10/07/16 11:29 Hydromorphone HCl (Dilaudid Inj) 1 mg Q2H PRN IV 09/07/16 11:45 09/21/16 11:44 Oxycodone HCl (Roxicodone Immediate Rel Tab) 5 mg Q6H PRN PO 09/07/16 11:45 09/21/16 11:44 Oxycodone HCl (Roxicodone Immediate Rel Tab) 10 mg Q6H PRN PO 09/07/16 11:45 09/21/16 11:44 09/11/16 09:33 10 MG Insulin Aspart (novoLOG ASPART) SLIDING SCALE If C... ACHS SC 09/07/16 16:00 10/07/16 15:59 09/11/16 09:41 2 UNITS Glucose (Glucose 40% Gel) 15-30 GRAMS 15 GRAMS... UD PRN PO 09/07/16 12:30 10/07/16 12:29 Glucose (Glucose Chew Tab) 4-8 Tablets 4 Tabl... UD PRN PO 09/07/16 12:30 10/07/16 12:29 Dextrose (Dextrose 50% 50ML Syringe) 25-50ML OF 50% DW IV FOR... UD PRN IV 09/07/16 12:30 10/07/16 12:29 Glucagon (Glucagon Inj) 1 mg UD PRN SQ 09/07/16 12:30 10/07/16 12:29 Amlodipine Besylate (Norvasc Tab) 10 mg DAILY PO 09/08/16 09:00 10/08/16 08:59 09/11/16 09:23 10 MG Aspirin (Ecotrin Tab) 325 mg DAILY PO 09/08/16 09:00 10/08/16 08:59 09/11/16 09:53 325 MG Carvedilol (Coreg Tab) 12.5 mg BID PO 09/07/16 21:00 10/07/16 20:59 09/11/16 09:23 12.5 MG Cholecalciferol (Vitamin D Tab) 1,000 inter.unit DAILY PO 09/08/16 09:00 10/08/16 08:59 09/11/16 09:21 1,000 INTER.UNIT Clonazepam (Klonopin Tab) 1 mg HS PO 09/07/16 21:00 10/07/16 20:59 09/10/16 20:50 1 MG Fenofibrate (Tricor Tab) 145 mg DAILY PO 09/08/16 09:00 10/08/16 08:59 09/11/16 09:21 145 MG Fluticasone Propionate (Flonase Nasal [place]) 2 sprays DAILY ANSELMO 09/08/16 09:00 10/08/16 08:59 09/11/16 09:35 2 SPRAYS Gabapentin (Neurontin Tab) 600 mg Q12 PO 09/07/16 21:00 10/07/16 20:59 09/11/16 09:25 600 MG Gabapentin (Neurontin Cap) 300 mg DAILY@1200 PO 09/07/16 12:30 10/07/16 12:29 09/10/16 12:49 300 MG Hydralazine HCl (Apresoline Tab) 50 mg TID PO 09/07/16 14:00 10/07/16 13:59 09/10/16 20:48 50 MG Acetaminophen/ Hydrocodone Bitart ([place] 5/325 Tab) 2 tab BID PRN PO 09/07/16 12:30 09/21/16 12:29 09/10/16 08:36 2 TAB Lactobacillus Acidophilus (Floranex Tab) 2 tab TID PO 09/07/16 14:00 10/07/16 13:59 09/11/16 09:20 2 TAB Polyethylene (Miralax Powder Packet) 17 gm DAILY PRN PO 09/07/16 12:30 10/07/16 12:29 Ranitidine HCl (zANTac TAB) 150 mg BID PO 09/07/16 21:00 10/07/16 20:59 09/11/16 09:24 150 MG Rosuvastatin Calcium (Crestor Tab) 40 mg DAILY PO 09/08/16 09:00 10/08/16 08:59 09/11/16 09:22 40 MG Senna/Docusate Sodium (Senokot S Tab) 2 tab HS PRN PO 09/07/16 14:00 10/07/16 13:59 Sertraline HCl (Zoloft Tab) 25 mg DAILY PO 09/08/16 09:00 10/08/16 08:59 09/11/16 09:24 25 MG Topiramate (Topamax Tab) 25 mg BID PO 09/07/16 21:00 10/07/16 20:59 09/11/16 09:20 25 MG Benzocaine/ Antipyrine (Auralgan Otic Soln) 2 drops QID PRN OT 09/07/16 12:30 10/07/16 12:29 Clonidine HCl (Catapres Tab) 0.2 mg BID PO 09/07/16 21:00 10/07/16 20:59 09/11/16 09:26 0.2 MG Pantoprazole Sodium (Protonix Tab) 40 mg QAM PO 09/08/16 09:00 10/08/16 08:59 09/11/16 09:21 40 MG Insulin Glargine (Lantus Solostar Pen) 5 unit BID SC 09/07/16 15:00 10/07/16 14:59 09/11/16 09:42 5 UNIT Enoxaparin Sodium (Lovenox Inj) 40 mg HS SQ 09/07/16 21:00 10/07/16 20:59 09/10/16 20:45 40 MG Miconazole Nitrate (Desenex Powder) 1 appln DAILY PRN EXT 09/07/16 21:45 10/07/16 21:44 09/11/16 09:35 1 APPLN Magnesium Chloride (Slow-Mag Tab) 64 mg BID PO 09/08/16 21:00 10/08/16 20:59 09/11/16 09:21 64 MG Enteral Nutritional Formula (Boost Pudding) 1 cup BIDM PO 09/11/16 17:00 10/11/16 16:59 UNV Last 24 Hours Test 09/10/16 16:18 09/10/16 20:35 09/11/16 05:07 09/11/16 07:41 Bedside Glucose 135 mg/dl 161 mg/dl 152 mg/dl Sodium Level 139 mmol/L Potassium Level mmol/L Chloride Level 102 mmol/L Carbon Dioxide Level 28 mmol/L Anion Gap 9.0 mmol/L Blood Urea Nitrogen 18 mg/dl Creatinine 1.50 mg/dl Est Creatinine Clear Calc Drug Dose 41.8 ml/min Estimated GFR () 40.2 Estimated GFR (Non- 34.7 BUN/Creatinine Ratio 12.2 Random Glucose 150 mg/dl Calcium Level 8.5 mg/dl Magnesium Level mg/dl Test 09/11/16 07:42 09/11/16 11:19 Potassium Level 4.7 mmol/L Magnesium Level 2.1 mg/dl Bedside Glucose 167 mg/dl Assessment & Plan 71 y/o F w/ recurrent hyponatremia attributed to low solute diet this time admitted after a fall w/ R calcaneal fracture and undergoing ertapenem therapy for ESBL E coli UTI. Also w/ hx of CKD 3 hyponatremia euvolemic and chronic > suspect multifactorial with combined low solute diet and inappropriate lasix use ; she was recently admitted here w/ hypovolemic hyponatremia but that is not the etiology this time, most c/w polydipsia this time sodium improving simply w/ fluid restriction > urine studies from several hours after admission consistent with polydipsia. -cont 1.5L fluid limit and this should be cont at hospital d/c -control pain which can worsen hyponatremia -at this point cont 2 gm daily na limit -cont to recommend NO metolazone at hospital d/c -cont to recommend 20 mg lasix prn swelling daily at most TWICE weekly > if needing more than this needs to check/follow labs more frequently; alternatively could simply d/c on no lasix > I am recommending prn only b/c pt is concerned about edema; she's had no diuretics for over 4 days here however and has not needed them in my opinion >>>>her albumin is 2.2 >>this will predispose her to edema; agree w/ protein supplement shakes and/or dietary consult; protein shakes do not count toward fluid limit HTN -controlled on multiple meds, some of which can cause swelling but would not attempt to modify at this time; she has minimal swelling and htn barely but mostly controlled hypokalemia, hypomagnesemia -no standing K dose currently and anticipate none needed at d/c -mag has normalized and would not continue at d/c CKD3 -at outpt baseline (1.4-1.7 for past 2 years; follows w/ Dr. Saab in [facility]); avoid nsaids >recommend outpt follow up with Dr. Saab in 3-4 wks calcaneal fracture/ recurrent falls >note that she had hypercalcemia at recent admission earlier this month with suppressed pth > PTH rp pending as of 09/11; Ca levels ok this admission; >>significant ambulatory dysfunction at baseline >>>both hyponatremia and hypercalcemia can be associated with higher fracture risk/balance problems; D levels low and pt has been started on D 3 Appreciate consult; will follow with you.
[2016-09-11] MEDS: GABAPENTIN 300 MG CAP PO SCH (12:50)
[2016-09-11 14:00] VITALS: BP 114/51; PULSE 54; O2SAT 98
[2016-09-11 15:08] VITALS: BP 105/51; PULSE 50; TEMP 36.6; O2SAT 96
[2016-09-11] MEDS: BOOST VANILLA PUDDING CUP PO SCH (17:48)
[2016-09-11] MEDS: ENOXAPARIN 40 MG/0.4 ML SYR SQ SCH (20:44)
[2016-09-11] MEDS: CLONAZEPAM 1 MG TAB PO SCH (20:48)
--- NOTE | 2016-09-11 22:15 | Progress Note ---
Internal Med Progress Note Date of Service: Sep 11, 2016. Provider Documentation: SUBJECTIVE: Offers no complain , has no pain or discomfort on rt foot waiting for placement in rehab OBJECTIVE: Vital Signs-as noted below Exam: General-no sign of distress Eyes-sclera non icteric ENT-NAd Neck-no thyromegaly Lungs-CTA Heart-regular S1/S2 Abdomen-soft, non tender Extremities-no rash or deformity , Rt foot in boot, trace edema Neuro-no focal neurological deficit Lab data as noted below. ASSESSMENT & PLAN: R CALCANEUS FX S/P FALL appreciate Ortho eval conservative approach -pt fitted with walking boot wt bearing as tolerated with boot and walker follow up with Orthopedics in office in 2 weeks - HYPONATREMIA resolved -chronic , euvolemic with component of SIADH -appreciate Nephrology eval cont 1.5 L fluid restriction avoid Lasix /diuretics HYPOKALEMIA replaced ESBL UTI -completed IV Invanz last dose 09/10/16 CKD STAGE 3 -creatinine is around baseline at 1.4 nephrology following INSULIN-DEPENDENT DM 2 -recent A1C 8.1 -Lantus 5 units BID -start ISS -monitor BSG AC HS CHRONIC ANEMIA -HgB currently around baseline at 9.6 (bl=10) ANXIETY/DEPRESSION -stable -cont Zoloft and Klonopin GERD -Zantac HTN -BP stable -cont Norvasc, Coreg, Clonidine, hydralazine -monitor DYSLIPIDEMIA -cont statin and fenofibrate DVT PROPHYLAXIS -subq Lovenox CODE STATUS -FULL CODE status per discussion with patient upon admission DISPOSITION accepted at [facility] for rehab tx to [facility] tomorrow Vital Signs: Date Time Temp Pulse Resp B/P Pulse Ox O2 Delivery O2 Flow Rate FiO2 09/11/16 16:00 Room Air 09/11/16 15:08 36.6 50 16 105/51 96 Room Air 09/11/16 14:00 54 114/51 98 09/11/16 08:00 Room Air 09/11/16 07:55 36.9 56 16 157/79 95 Room Air 09/11/16 00:00 Room Air 09/10/16 23:11 36.8 56 18 153/76 93 Room Air Lab Results: Results Past 24 Hours Test 09/11/16 05:07 09/11/16 07:41 09/11/16 07:42 09/11/16 11:19 Range/Units Sodium Level 139 136-145 mmol/L Potassium Level 4.7 3.5-5.1 mmol/L Chloride Level 102 98-107 mmol/L Carbon Dioxide Level 28 21-32 mmol/L Anion Gap 9.0 3-11 mmol/L Blood Urea Nitrogen 18 7-18 mg/dl Creatinine 1.50 0.60-1.20 mg/dl Est Creatinine Clear Calc Drug Dose 41.8 ml/min Estimated GFR () 40.2 Estimated GFR (Non- 34.7 BUN/Creatinine Ratio 12.2 10-20 Random Glucose 150 70-99 mg/dl Calcium Level 8.5 8.5-10.1 mg/dl Magnesium Level 2.1 1.8-2.4 mg/dl Bedside Glucose 152 167 70-90 mg/dl Test 09/11/16 17:18 09/11/16 20:00 Range/Units Bedside Glucose 173 147 70-90 mg/dl
[2016-09-11 23:05] VITALS: BP 147/75; PULSE 64; TEMP 36.8; O2SAT 91
[2016-09-12 08:06] VITALS: BP 147/76; PULSE 59; TEMP 36.7; O2SAT 94
[2016-09-12] MEDS: BOOST VANILLA PUDDING CUP PO SCH (08:07)
[2016-09-12] MEDS: OXYCODONE HCL IR 5 MG TAB (IMMEDIATE RELEASE) PO PRN (08:08)
[2016-09-12] MEDS: AMLODIPINE BESYLATE 5 MG TAB PO SCH (08:12)
[2016-09-12] MEDS: CLONIDINE HCL 0.1 MG TAB PO SCH (08:13)
[2016-09-12] MEDS: SERTRALINE HCL 50 MG TAB PO SCH (08:13)
[2016-09-12] MEDS: TOPIRAMATE 25 MG TAB PO SCH (08:15)
[2016-09-12] MEDS: ROSUVASTATIN CALCIUM 20 MG TAB PO SCH (08:16)
[2016-09-12] MEDS: GABAPENTIN 600 MG TAB PO SCH (08:16)
[2016-09-12] MEDS: PANTOprazole SOD 40 MG TAB PO SCH (08:16)
[2016-09-12] MEDS: MAGNESIUM CHLORIDE 64MG DELAYED REL TAB PO SCH (08:17)
[2016-09-12] MEDS: CHOLECALCIFEROL 1000 INTER.UNIT TAB PO SCH (08:17)
[2016-09-12] MEDS: FENOFIBRATE 145 MG TAB PO SCH (08:17)
[2016-09-12] MEDS: CARVEDILOL 12.5 MG TAB PO SCH (08:18)
[2016-09-12] MEDS: ASPIRIN 325 MG ECTAB PO SCH (08:18)
[2016-09-12] MEDS: LACTOBACILLUS ACIDOPHILUS (FLORANEX) TAB PO SCH (08:18)
[2016-09-12] MEDS: RANITIDINE HCL 150 MG TAB PO SCH (08:19)
[2016-09-12] MEDS: INSULIN ASPART 100 UNITS/ML 3 ML PEN SC SCH (08:29)
[2016-09-12] MEDS: INSULIN GLARGINE SOLOSTAR 100 UNITS/ML 3 ML PEN SC SCH (08:29)
[2016-09-12] MEDS: FLUTICASONE PROPIONATE NA SPR 16 GM BTL NAE SCH (08:49)
[2016-09-12 09:26] VITALS: BP 147/76; PULSE 59; TEMP 36.7; O2SAT 94
[2016-09-12 09:41] VITALS: O2SAT 94
--- NOTE | 2016-09-12 10:12 | Progress Note ---
Progress Note ATTENDING NOTE : pt is stable to be discharged to [facility] today updated given to Dr Brennan
[2016-09-12] MEDS: MICONAZOLE NITRATE POWDER 43 GM EXT PRN (10:48)
--- NOTE | 2016-09-12 11:37 | Discharge Summary ---
Discharge Summary Admission Date: Sep 07, 2016 at 13:52 Discharge Date: Sep 11, 2016 Discharge Disposition: Rehab ([facility] ) Principal Diagnosis: IGHT ANKLE SPRAIN /AVULSION FRACTURE OF LEFT ANT CALCANEUS /HYPONATREMIA Consultations: [facility]PHROLOG[facility] DR SAVANNAH KELLOGG Pending Studies/Follow-Up: List of pending studies: REPEAT BASIC METABOLIC PANEL IN 1 WEEK RIGHT FOOT XRAY 3 VIEW IN 2 WEEKS IN [facility] FOLLOW UP [facility] DR LONDON FOR REPORT AND EVALUATION Medication Reconciliation New Medications: [Lasix ] () 20 MG PO UD PRN for TITRATION, #15 2 X WEEK NEEDED FOR LEG SWELLING Continued Medications: Amlodipine (Norvasc) 10 Mg Tab 10 MG PO DAILY, #30 TAB 2 Refills Antipyrine-Benzocaine (Antipyrine/Benzocaine) 1 Mami Mami 2 DROPS OPR QID PRN for ear pain Aspirin (Aspirin) 325 Mg Tab 325 MG PO DAILY Carvedilol (Carvedilol) 12.5 Mg Tab 12.5 MG PO BID for 30 Days, TAB 1 Refill Cholecalciferol (Vitamin D) 1,000 Inter.unit Tab 1000 INTER.UNIT PO DAILY, TAB Clonazepam (Klonopin) 1 Mg Tab 1 MG PO HS, TAB Clonidine Hcl (Catapres) 0.2 Mg Tab 0.2 MG PO BID, TAB Esomeprazole Magnesium (Nexium) 40 Mg Capcr 40 MG PO DAILY Fenofibrate (Tricor ) 145 Mg Tab 145 MG PO DAILY Fluticasone Propionate (Nasal) (Flonase) 50 Mcg/Act Spr 2 SPRAYS ANSELMO DAILY Gabapentin (Neurontin *) 600 Mg Cap 600 MG PO Q12 Gabapentin (Neurontin) 300 Mg Cap 300 MG PO midday Hydralazine HCl (Hydralazine HCl) 50 Mg Tab 50 MG PO TID for 30 Days, TAB Hydrocodone/Acetaminophen 5MG/325MG ([place] 5MG/325MG) Tab 2 TABLETS PO BID PRN for Pain, #30 TAB (This prescription has been renewed) PRN PAIN Insulin Glargine (Lantus Solostar Pen) 100 Unit/ Inj 46 UNIT SQ HS for 60 Days, #15 ML 5 Refills Insulin Lispro (Human) (Humalog Kwikpen) 100 Unit/Ml Inj 4 units for bsg 150-200 6 units for bsg 201-250 8 units for bsg 251-300 10 units for bsg 301-350 Lactobacillus Acidophilus (Lactinex) Tab 2 TAB PO TID for 10 Days, TAB Nitroglycerin (Nitrostat) 0.4 Mg Tab 0.4 MG UT UD PRN for Chest Pain Ondansetron Hcl (Zofran) 8 Mg Tab 8 MG PO TID PRN for Nausea, #30 TAB Polyethylene (Miralax) 17 Gm Pow 17 GM PO DAILY PRN for Constipation for 30 Days, 1 Refill Ranitidine Hcl (Zantac) 150 Mg Tab 1 TAB PO BID for 30 Days, #60 TAB 3 Refills Rosuvastatin Calcium (Crestor *) 10 Mg Tab 40 MG PO DAILY Senna/Docusate Sod (Senokot S) 1 Tab Tab 2 TAB PO HS PRN, #30 TAB 1 Refill Sertraline (Zoloft) 50 Mg Tab 0.5 TAB PO DAILY for 30 Days, #30 TAB 2 Refills Topiramate (Topamax) 50 Mg Tab 0.5 TAB PO BID for 30 Days, #60 TAB 1 Refill Discontinued Medications: Ertapenem Sodium (Invanz) 1 Gm Inj 1 GM IV DAILY for 7 Days, VIAL Furosemide (Lasix) 40 Mg Tab 40 MG PO DAILY, TAB Metolazone (Zaroxolyn) 2.5 Mg Tab 2.5 MG PO WK for 15 Days, TAB Admission Information HPI (per Admitting provider): This is a 71 y/o female with PMHx of CKD stage 3, Insulin-dependent DM 2, Chronic Anemia, HTN, Dyslipidemia and other problems as outlined below who presents to the ED c/o L ankle pain s/p fall yesterday. Pt was recently admitted to [facility] from 08/30/16-09/03/16 with Hyponatremia and ESBL UTI. Pt was discharged home on IV Invanz x 7 days. Pt reports she was feeling well upon discharge and all urinary sxs had resolved. Yesterday, she was getting into her car when her R leg gave out causing her to roll her R ankle and fall to the ground. Pt was unable to get up due to weakness and R ankle pain. She reports that the R ankle pain was an 8/10 pain that radiated into the calf. She has associated swelling and bruising of the ankle and foot. She denies hitting her head. Pt typically ambulates with cane or walker when she leaves the house which she was using at the time of her fall. She currently lives with her 2 sisters. Sister at bedside reports patient has had increased generalized weakness since discharge. Pt denies fever/chills, diaphoresis, chest pain, palpitations, SOB, abd pain, N/V, bowel or bladder issues, worsening LE edema, calf pain, lightheadedness/dizziness. In the ED, BP is elevated on arrival. Pt is afebrile with no leukocytosis. HgB 9.6. Na+ 125. K+ 3.1. creat 1.4. CK 457. TSH 0.095. CXR is negative. L Foot Xray + calcaneal fx. EKG: no ischemic change. Pt appears stable and will be admitted for further evaluation and treatment. Physical Exam (per Admitting): General Appearance: WD/WN, no apparent distress, + obese, + pertinent finding (Pt is laying in bed with sisters at bedside ) Head: normocephalic, atraumatic Eyes: normal inspection ENT: hearing grossly normal Neck: supple Respiratory/Chest: chest non-tender, lungs clear, normal breath sounds, no respiratory distress Cardiovascular: regular rate, rhythm Abdomen/GI: normal bowel sounds, non tender, soft Back: normal inspection Extremities/Musculoskelatal: no calf tenderness, + swelling (2+ pitting edema to bilat LE; swelling and ecchymosis noted to R ankle with tenederness to palpation and limited ROM due to pain ) Neurologic/Psych: alert, normal mood/affect, oriented x 3 Skin: normal color, warm/dry Hospital Course Offers no complain , no pain or discomfort on rt foot energy level has improved stable to be transferred to [facility] today for rehab Sister visiting Exam: Exam: General-no sign of distress Eyes-sclera non icteric ENT-NAd Neck-no thyromegaly Lungs-CTA Heart-regular S1/S2 Abdomen-soft, non tender Extremities-no rash or deformity , Rt foot in boot, trace edema Neuro-no focal neurological deficit R CALCANEUS FX S/P FALL appreciate Ortho eval conservative approach -pt fitted with walking boot wt bearing as tolerated with boot and walker follow up with Orthopedics in office in 2 weeks - HYPONATREMIA resolved -chronic , euvolemic with component of SIADH -appreciate Nephrology eval cont 1.5 L fluid restriction avoid Lasix /diuretics as per pt's request -Lasix low dose 20 mg PO X2 week as needed for leg edema HYPOKALEMIA replaced ESBL UTI -completed IV Invanz last dose 09/10/16 CKD STAGE 3 -creatinine is around baseline at 1.4 nephrology following INSULIN-DEPENDENT DM 2 -recent A1C 8.1 -Lantus 5 units BID -start ISS -monitor BSG AC HS CHRONIC ANEMIA -HgB currently around baseline at 9.6 (bl=10) ANXIETY/DEPRESSION -stable -cont Zoloft and Klonopin GERD -Zantac HTN -BP stable -cont Norvasc, Coreg, Clonidine, hydralazine -monitor DYSLIPIDEMIA -cont statin and fenofibrate DVT PROPHYLAXIS -subq Lovenox CODE STATUS -FULL CODE status per discussion with patient upon admission DISPOSITION accepted at [facility] for rehab tx to [facility] today update given to Accepting Physician Dr Brennan Total time spent on discharge = 40 mins This includes examination of the patient, discharge planning, medication reconciliation, and communication with other providers. Discharge Instructions DI: Transfer Non Acute v4 Discharge Instructions Admission Reason for Admission: Hyponatremia Discharge Discharge Diagnosis / Problem: RIGHT ANKLE SPRAIN /AVULSION FRACTURE OF LEFT ANT CALCANEUS /HYPONATREMIA Discharge Goals Goal(s): Improve disease control, Therapeutic intervention Activity Recommendations Activity Level: Assistance Required Therapies: Physical Therapy, Weight Bearing Status (RT LOWER EXT TOLERATED WITH BOOT AND WALKER ), Occupational Therapy Weightbearing Status: Right weightbearing (as tolerated) WT BEARING TOLERATED ON RT FOOT WITH BOOT AND WALKER BOOT CAN BE REMOVED TO WORK ON GENTLE ROM Additional Information Patient informed of condition: Yes Advance Directives: No DNR: No Level of Care: Acute Rehab Communicable Disease: No Prognosis: Stable Griffin Catheter: No Instructions / Follow-Up Instructions / Follow-Up FOLLOW UP WITH ORTHOPEDICS DR LONDON IN WEEKS , PLEASE CALL OFFICE FOR APPOINTMENT FAMILY PHYSICIAN FOLLOW UP AFTER DISCHARGE FORM REHAB LIMIT FLUID INTAKE 1.5 L A DAY Current Hospital Diet Patient's current hospital diet: Diabetes Type 2 Diet Discharge Diet Recommended Diet: Diabetes Type 2 Diet Fluid Restriction: 1500 ml (6 cups) Pending Studies Studies pending at discharge: yes List of pending studies: REPEAT BASIC METABOLIC PANEL IN 1 WEEK RIGHT FOOT XRAY 3 VIEW [facility] 2 WEEKS [facility] FOLLOW UP [facility] DR LONDON FOR REPORT AND EVALUATION Laboratory Results Hemoglobin A1c Test 08/30/16 03:34 Range/Units Estimated Average Glucose 186 mg/dl Hemoglobin A1c 8.1 H 4.5-5.6 % Medical Emergencies . Who to Call and When: Medical Emergencies: If at any time you feel your situation is an emergency, please call 911 immediately. . Non-Emergent Contact Non-Emergency issues call your: Primary Care Provider . . "Provider Documentation" section prepared by Roma Capone. Core Measure Problem Core Measures: None [place] Drug Monitoring Program Search Results: no issues identified
== END 2016-09-12 12:15 | DRG 644 ==
LOC: ENRESERVTM → ENRESERVDT → EDBD 09:05 → C.EDA 09:06 → C.2T 13:52 → C.MS2W 09-08 18:00
PROVIDERS: ADMIT Hospitalist; ATTEND Hospitalist
DX: E22.2 Syndrome of inappropriate secretion of antidiuretic hormone (principal); N39.0 Urinary tract infection, site not specified; E11.9 Type 2 diabetes mellitus without complications; N18.3 Chronic kidney disease, stage 3 (moderate); I13.10 Hypertensive heart and chronic kidney disease without heart failure, with stage 1 through stage 4 chronic kidney disease, or unspecified chronic kidney disease; E66.01 Morbid (severe) obesity due to excess calories; E78.5 Hyperlipidemia, unspecified; K21.9 Gastro-esophageal reflux disease without esophagitis; E87.6 Hypokalemia; I25.10 Atherosclerotic heart disease of native coronary artery without angina pectoris; S92.001A Unspecified fracture of right calcaneus, initial encounter for closed fracture; B96.20 Unspecified Escherichia coli [E. coli] as the cause of diseases classified elsewhere; E83.42 Hypomagnesemia; M85.80 Other specified disorders of bone density and structure, unspecified site; D63.8 Anemia in other chronic diseases classified elsewhere; W19.XXXA Unspecified fall, initial encounter; Z79.4 Long term (current) use of insulin; I25.2 Old myocardial infarction

== ENCOUNTER 2017-11-09 15:32 | Emergency (ER) | payer OTHER ==
[~2017-11-09] VITALS: Ht 149.9 cm; Wt 118.0 kg
[~2017-11-09 15:32] MED LIST changes: -AMLO10TA4 PO; +AMOX500C3 PO; +ANTI1SOL5 OPR; -APR25 PO; +ASPI325T39 PO; +CARV12.52 PO; +CHOL100010 PO; +CLON0.2T PO; +CLON0.2T11 PO; +CLON1TAB3 PO; +CRS10 PO; -ERTA1INJ IV; +ESTCR PV; +FLUT0.0529 NAE; +FLUT0.15 NAE; +FRS/40 PO; -FURO40TA3 PO; +GABA-113 PO; +HYDR-4717 PO; +INSDGI SC; +INSU100I2; +INSU100I2 SC; +INSUINJ4 SQ; +LASIX PO; -MCRB100 PO; -METO2.5T PO; -MISCCAP69 PO; +NRN600 PO; +NTRGSL/4 UT; +NXM/40 PO; +NYSTCRE11 EXT; -ONDA8TAB12 PO; +PANT40TA PO; +PRM625 PV; +RANI150T85 PO; +ROSU40TA PO; +TOPI25TA99 PO; +TRMCR130WC EXT; +VLSO15 EXT
[2017-11-09 15:43] VITALS: BP 198/87; PULSE 60; TEMP 36.9; O2SAT 96; Ht 149.9 cm; Wt 118.0 kg
--- NOTE | 2017-11-09 15:51 | EMERGENCY ROOM VISIT NOTE ---
ED Visit Note First contact with patient: 15:34 CHIEF COMPLAINT: Left upper arm pain HISTORY OF PRESENT ILLNESS: This 72-year-old female patient presents to the emergency department, ambulatory, complaining of pain in the left upper arm since Wednesday. On Wednesday, the patient tripped over the table leg, falling down and landing on her left upper arm. The patient states EMS was called and they did help her up. She declined evaluation in the emergency department at that time. She has been having ongoing pain for the past 2 days. She went to her ENT provider today, and was told they would not look in her ear due to the left arm pain. There is mild limitation of motion of the arm because of the pain. The pain is moderate, constant and increases with motion of the hand, elbow, and arm. The patient states the pain is sharp and 9/10. The patient has taken Chester with mild relief of the pain. No previous significant shoulder or arm disease or injury. No numbness or tingling. No neck or back pain. No chest pain or shortness of breath. No abdominal pain or nausea/vomiting. No cough. The patient did not hit her head. REVIEW OF SYSTEMS: A 6 system review of systems was performed with positives and pertinent negatives in the HPI. ALLERGIES: Bactrim, loratadine, metformin, HMG-CoA-R Inhibitors PMH: Diabetes, hypertension, heart disease, GERD, hyperlipidemia SOCIAL HISTORY: The patient lives locally with family. She denies drug, alcohol , tobacco use. PHYSICAL EXAM: Vital Signs: Reviewed nurse's notes, vital signs stable. GENERAL : This is a 72-year-old obese white female, in no acute distress, but appears to be in pain, well-developed, well-nourished. MUSCULOSKELETAL: There is no deformity in the contour of the left shoulder and there are no abraham deformities noted. There is no sulcus sign. There is tenderness over the proximal humerus. The patient's range of motion is limited at the shoulder due to pain. Supraspinatus strength 4/5. There is no clavicle tenderness. No tenderness of the humerus, elbow, wrist, or hand. Conduit Worker strength 5/5. Radial pulse 2+. NECK: No tenderness to palpation over the cervical spine. Supple, no lymphadenopathy. HEART: Regular rate and rhythm without murmurs gallops or rubs. LUNGS: Clear to auscultation bilaterally without wheezes, rales or rhonchi. No accessory muscle use. No retractions. NEURO: The patient is alert and oriented to person, place, and time. Normal sensation to light and sharp touch. Capillary refill less than 2 seconds. RADIOLOGY: L HUMERUS MIN 2 VIEWS ROUTINE CLINICAL HISTORY: Left upper arm pain following fall. COMPARISON: None FINDINGS: Alignment of the left acromioclavicular and glenohumeral joints is anatomic. There is an impacted left humeral neck fracture that extends into the left humeral head. This likely accounts for cortical irregularity along the superior aspect of the left humeral head. No additional left humeral fractures are identified. Alignment of the left elbow appears anatomic. IMPRESSION: Acute impacted mildly displaced left humeral neck and head fracture. Electronically signed by: Stef Dennis M.D. 11/09/2017 4:38 PM Dictated Date/Time: 11/09/2017 4:34 PM EMERGENCY DEPARTMENT COURSE: I examined the patient. An X-ray of the left humerus was reviewed by myself and radiologist and shows acute impacted, mildly displaced left humeral neck and head fracture as above. The patient was placed in an arm sling. She was seen and evaluated by Dr. Joshi independently. The patient will follow up with [facility] this week. She did ask about a colonoscopy which is scheduled for the end of this month, and I did encourage her to discuss this with the visualizer and orthopedic surgeon. She was given a dose of Chester to help with pain while here in the emergency department, but does have a prescription for narcotics at home. Discharge instructions reviewed, the patient was discharged home in good condition. I attest that I have personally reviewed the patient's current medication list. Blood Pressure Screening: Patient was found to have a slightly elevated blood pressure due to circumstances. I do not believe that the patient requires hypertension monitoring. Differential diagnosis includes: contusion, sprain, strain, fracture, soft- tissue injury, ACS, closed head injury, ICH, SAH, malignancy, and others DIAGNOSIS: Left humeral head fracture Problem List Medical Problems: (1) Adjustment disorder Status: Chronic (2) CKD (chronic kidney disease), stage III Status: Chronic (3) GERD (gastroesophageal reflux disease) Status: Chronic (4) HLD (hyperlipidemia) Status: Chronic (5) Hypertension Status: Chronic (6) Hypertensive heart disease Status: Chronic (7) IBS (irritable bowel syndrome) Status: Chronic (8) Insulin dependent diabetes mellitus Status: Chronic (9) Morbid obesity Status: Chronic Surgical Problems: (1) H/O hernia repair Status: Chronic (2) H/O: Status: Chronic (3) H/O: hysterectomy Status: Chronic (4) S/P cholecystectomy Status: Chronic Current/Historical Medications Scheduled Amlodipine (Norvasc), 10 MG PO QAM Amoxicillin (Amoxil), 500 MG PO DAILY Aspirin (Aspirin Ec), 325 MG PO QAM Carvedilol (Coreg), 12.5 MG PO BID Cholecalciferol (Vitamin D), 1 TAB PO DAILY Clonazepam (Klonopin), 1 MG PO HS Clonidine Hcl (Catapres), 0.2 MG PO BID Estradiol Vaginal (Estrace), 1 DOSE PV 3XWK Fenofibrate (Tricor), 145 MG PO QPM Fluticasone Propionate (Nasal) (Flonase Allergy Relief), 1 SPRAY ANSELMO DAILY Furosemide (Lasix), 40 MG PO BID Gabapentin (Neurontin), 1 DOSE PO TID Hydralazine Hcl (Apresoline), 50 MG PO TID Insulin Glargine (Lantus), 20 UNITS SC BID Insulin Lispro (Human) (Humalog Kwikpen), 10 UNITS SC TID Lactobacillus Acidophilus (Lactinex), 1 TAB PO TIDM Nitroglycerin (Nitrostat), 0.4 MG UT PRN Pantoprazole (Protonix), 40 MG PO QPM Ranitidine (Zantac), 150 MG PO BID Rosuvastatin Calcium (Crestor), 40 MG PO QPM Sertraline (Zoloft), 50 MG PO QAM Topiramate (Topamax ), 25 MG PO BID Scheduled PRN Betamethasone Hilary (Valisone 0.1% Oint), 1 DOSE EXT DIRECTED PRN for PRN Nystatin/Triamcinolone (Mycolog ||), 1 DOSE EXT DIRECTED PRN for PRN Triamcinolone Acet (Aristocort 0.1%), 1 DOSE EXT DIRECTED PRN for PRN Allergies Coded Allergies: Metformin (Verified Allergy, Intermediate, causes kidney problems, 11/09/17 ) Loratadine (Verified Allergy, Unknown, MOUTH SWELLING, 11/09/17) Sulfamethoxazole w/Trimethoprim (Verified Allergy, Unknown, "ITS BEEN SO LONG, I FORGET", 11/09/17) HMG-CoA-R Inhibitors (Verified Adverse Reaction, Mild, GI UPSET, 11/09/17) ? GI UPSET PER DR PATEL Sulfa Antibiotics (Verified Adverse Reaction, Unknown, NAUSEA, 11/09/17) Vital Signs Date Time Temp Pulse Resp B/P (MAP) Pulse Ox O2 Delivery O2 Flow Rate FiO2 11/09/17 15:43 36.9 60 18 198/87 96 Room Air Departure Information Impression Primary Impression: Fracture of humeral head, closed Dispostion Home / Self-Care Condition GOOD Referrals Angela Marin M.D. (PCP) [facility] Patient Instructions Humerus Fx, My [facility] Additional Instructions You were seen and evaluated today in the ED for a left humeral head fracture. This fracture is impacted and mildly displaced of the humeral neck and head. You will need to follow-up with orthopedics regarding this fracture. Please explain to them the above description while scheduling the appointment. DO NOT drive, drink alcohol, operate machinery, or perform dangerous activities today. You were given medications in the ER that can affect your ability to safely function or operate a vehicle. Take the Hydrocodone-Acetaminophen you have at home as prescribed for pain. Do not drive or operate machinery while on this medication. Acetaminophen(Tylenol) may be used for fever or pain. Use 500-1000mg every six hours as needed. Avoid using more than 3000mg in a 24 hour period. This includes from the hydrocodone-acetaminophen you take as well. Ice compresses for 20 minutes at a time four times daily for 2-3 days. Use the sling as instructed. Remove your arm from the sling 4-6 times a day and move all the joints around to keep them loose. Rest and elevate your injury. Return to the ER immediately for any numbness, tingling, severe pain, extreme swelling in the extremity or as needed. Call [facility], [phone], tomorrow morning to arrange follow up for your injury. Follow-up with your primary care physician in 2 to 3 days for a recheck of your current condition. Discuss options for colonoscopy with your visualizer , orthopedic surgeon, and primary care provider. This procedure may need to be rescheduled. Problem Qualifiers Primary Impression: Fracture of humeral head, closed Encounter type: initial encounter Laterality: left Qualified Codes: S42.292A - Other displaced fracture of upper end of left humerus, initial encounter for closed fracture
--- NOTE | 2017-11-09 16:39 | DIAGNOSTIC IMAGING REPORT ---
L HUMERUS MIN 2 VIEWS ROUTINE CLINICAL HISTORY: Left upper arm pain following fall. COMPARISON: None FINDINGS: Alignment of the left acromioclavicular and glenohumeral joints is anatomic. There is an impacted left humeral neck fracture that extends into the left humeral head. This likely accounts for cortical irregularity along the superior aspect of the left humeral head. No additional left humeral fractures are identified. Alignment of the left elbow appears anatomic. IMPRESSION: Acute impacted mildly displaced left humeral neck and head fracture. Electronically signed by: Stef Dennis M.D. 11/09/2017 4:38 PM Dictated Date/Time: 11/09/2017 4:34 PM
[2017-11-09] MEDS ORDERED: HYDROCODONE/ACETAMIN 5/325MG TAB PO STA (17:03)
--- NOTE | 2017-11-09 17:04 | EMERGENCY ROOM VISIT NOTE ---
ED Visit Note First contact with patient: 15:34 I did evaluate and examine this patient myself. I did guide management for the patient. I agree with the PA's assessment as discussed. Please see the PAs dictation for further details. I did independently review the x-rays. She does have a humeral head fracture. She is placed in a sling and will follow up with [facility].
== END 2017-11-09 17:20 | disposition home or self-care (01) ==
LOC: EDBD 15:32 → C.EDD 15:33
DX: S42.292A Other displaced fracture of upper end of left humerus, initial encounter for closed fracture (principal); W01.0XXA Fall on same level from slipping, tripping and stumbling without subsequent striking against object, initial encounter; E11.9 Type 2 diabetes mellitus without complications; I13.10 Hypertensive heart and chronic kidney disease without heart failure, with stage 1 through stage 4 chronic kidney disease, or unspecified chronic kidney disease; N18.3 Chronic kidney disease, stage 3 (moderate); Z88.2 Allergy status to sulfonamides; Z88.8 Allergy status to other drugs, medicaments and biological substances; Z88.1 Allergy status to other antibiotic agents; Z79.82 Long term (current) use of aspirin; Z79.2 Long term (current) use of antibiotics; Z79.3 Long term (current) use of hormonal contraceptives; Z79.4 Long term (current) use of insulin

== ENCOUNTER → 2017-11-17 | Day surgery (SDC) | payer OTHER ==
[2017-11-09 08:26] VITALS: BMI 54.0
[~2017-11-17] VITALS: Ht 149.9 cm; Wt 120.5 kg
[~2017-11-17] MED LIST changes: -ANTI1SOL5 OPR; -APR50 PO; -ASPI325T45 PO; -CLON0.2T11 PO; -CRG125 PO; -CRS10 PO; -FLUT0.0529 NAE; -HYDR-5688 PO; -INSU100I2; -INSUINJ4 SQ; -LASIX PO; +LIDOCAINE HCL 2% 2 ML VIAL (20MG/ML) ONE; -MRLP17X PO; -NRN600 PO; -NXM/40 PO; +OXYC-57 PO; -PRM625 PV; +PROPOFOL IV EMULSION 10 MG/ML 20 ML VIAL IV ONE; -RANI150T3 PO; -SENN-65 PO; +SODIUM CHLORIDE 0.9% 500ML 500 ML IV ONE; -TOPI50TA24 PO
--- NOTE | 2017-11-17 08:49 | Endo History and Physical ---
History & Physical Date of Service: Nov 17, 2017. Chief Complaint: + cologuard; h/o colonoscopy 2005 + large serrated adenoma and adenomatous polyp Referring Physician: History of Present Illness see chief complaint Past Medical History Diabetes, Arthritis, High Cholesterol, CABG, Hypertension, Kidney Disease, CT Past Surgical History Hx Cardiac Surgery: No Hx Internal Defibrillator: No Hx Pacemaker: No Hx Abdominal Surgery: Yes (HYSTERECTOMY, KAYLEE, VENTRAL HERNIA, X 2, TUBAL LIGATION) Hx of Implantable Prosthesis: No Hx Post-Op Nausea and Vomiting: No Hx Cancer Surgery: No Hx Thoracic Surgery: No Hx Orthopedic: No Hx Urinary Tract Surgery: No Family History Colon CA Social History Smoking Status: Never Smoker Hx Substance Use: No Hx Alcohol Use: No Allergies Coded Allergies: Metformin (Verified Allergy, Intermediate, causes kidney problems, 11/09/17 ) Loratadine (Verified Allergy, Unknown, MOUTH SWELLING, 11/09/17) Sulfamethoxazole w/Trimethoprim (Verified Allergy, Unknown, "ITS BEEN SO LONG, I FORGET", 11/09/17) HMG-CoA-R Inhibitors (Verified Adverse Reaction, Mild, GI UPSET, 11/09/17) ? GI UPSET PER DR PATEL Sulfa Antibiotics (Verified Adverse Reaction, Unknown, NAUSEA, 11/09/17) Current Medications Reported Home Medications Medications Dose Route/Sig Max Daily Dose Days Date Category Dose Instructions Aristocort 0.1% (Triamcinolone Acet) 90 Appln/30 Gm Cr 1 Dose EXT DIRECTED PRN 11/09/17 Reported Topamax (Topiramate) 25 Mg Tab 25 Mg PO BID 11/09/17 Reported Zoloft (Sertraline HCl) 50 Mg Tab 50 Mg PO QAM 11/09/17 Reported Zantac (Ranitidine HCl) 150 Mg Tab 150 Mg PO BID 11/09/17 Reported Protonix (Pantoprazole Sodium) 40 Mg Tab 40 Mg PO QPM 11/09/17 Reported Mycolog || (Nystatin/Triamcinolone Acetonide) Cr 1 Dose EXT DIRECTED PRN 11/09/17 Reported Nitrostat (Nitroglycerin) 0.4 Mg Tab 0.4 Mg UT PRN 11/09/17 Reported Lantus (Insulin Glargine) 100 Unit/Ml Inj 20 Units SC BID 11/09/17 Reported Lactinex (Lactobacillus Acidophilus) Tab 1 Tab PO TIDM 11/09/17 Reported Apresoline (Hydralazine Hcl) 50 Mg Tab 50 Mg PO TID 11/09/17 Reported Humalog Kwikpen (Insulin Lispro (Human)) 100 Unit/Ml Inj 10 Units SC TID 11/09/17 Reported Neurontin (Gabapentin) 300 Mg Cap 1 Dose PO TID 11/09/17 Reported TAKES 2 TABS MORNING AND NIGHT, 1 TAB MID DAY Lasix (Furosemide) 40 Mg Tab 40 Mg PO BID 11/09/17 Reported Flonase Allergy Relief (Fluticasone Propionate (Nasal)) 50 Mcg/Act Spr 1 [place] ANSELMO DAILY 11/09/17 Reported Tricor (Fenofibrate) 145 Mg Tab 145 Mg PO QPM 11/09/17 Reported Estrace (Estradiol Vaginal) 0.1 Mg/Gm Cre 1 Dose PV 3XWK 11/09/17 Reported Crestor (Rosuvastatin Calcium) 40 Mg Tab 40 Mg PO QPM 11/09/17 Reported Catapres (Clonidine Hcl) 0.2 Mg Tab 0.2 Mg PO BID 11/09/17 Reported Klonopin (Clonazepam) 1 Mg Tab 1 Mg PO HS 11/09/17 Reported Vitamin D (Cholecalciferol) 1,000 Unit Tab 1 Tab PO DAILY 11/09/17 Reported Coreg (Carvedilol) 12.5 Mg Tab 12.5 Mg PO BID 11/09/17 Reported Valisone 0.1% Oint (Betamethasone Hilary) 45 Appln/15 Gm Oint 1 Dose EXT DIRECTED PRN 11/09/17 Reported Aspirin Ec (Aspirin) 325 Mg Tab 325 Mg PO QAM 11/09/17 Reported Amoxil (Amoxicillin) 500 Mg Cap 500 Mg PO DAILY 11/09/17 Reported Norvasc (Amlodipine Besylate) 10 Mg Tab 10 Mg PO QAM 11/09/17 Reported Vital Signs Weight (Kilograms): 120.45 Height (Feet): 4 Height (Inches): 11 Physical Exam General Appearance: WD/WN, no apparent distress Assessment and Plan colonoscopy today
[2017-11-17 09:26] VITALS: TEMP 37.2
[2017-11-17 09:27] VITALS: Ht 149.9 cm; Wt 120.5 kg
--- NOTE | 2017-11-17 10:08 | GI REPORT ---
Procedure Date: 11/17/2017 9:26 AM Procedure: Colonoscopy Indications: Surveillance: Personal history of adenomatous polyps on last colonoscopy > 5 years ago, Family history of colon cancer in a first-degree relative, Incidental - Positive Cologuard test Medicines: Propofol per Anesthesia Complications: No immediate complications. Estimated blood loss: Minimal. Estimated Blood Loss: Estimated blood loss was minimal. Procedure: Pre-Anesthesia Assessment: - Prior to the procedure, a History and Physical was performed, and patient medications, allergies and sensitivities were reviewed. The patient's tolerance of previous anesthesia was reviewed. - The risks and benefits of the procedure and the sedation options and risks were discussed with the patient. All questions were answered and informed consent was obtained. - Patient identification and proposed procedure were verified prior to the procedure by the physician and the nurse. The procedure was verified in the pre-procedure area in the procedure room. - Mental Status Examination: alert and oriented. Airway Examination: normal oropharyngeal airway and neck mobility. Respiratory Examination: clear to auscultation. CV Examination: normal. Abdominal Examination: bowel sounds present, abdomen soft and non-tender, no masses or organomegaly noted. - ASA Grade Assessment: III - A patient with severe systemic disease. After I obtained informed consent, the scope was passed under direct vision. Throughout the procedure, the patient's blood pressure, pulse, and oxygen saturations were monitored continuously. The scope was introduced through the anus and advanced to the terminal ileum. The colonoscopy was performed without difficulty. The patient tolerated the procedure well. The quality of the bowel preparation was good. Findings: The perianal and digital rectal examinations were normal. Pertinent negatives include normal sphincter tone and no palpable rectal lesions. The terminal ileum appeared normal. Two sessile polyps were found in the transverse colon. The polyps were 3 to 5 mm in size. These polyps were removed with a cold snare. Resection and retrieval were complete. Verification of patient identification for the specimen was done by the physician and nurse using the patient's name and date. Estimated blood loss was minimal. Internal hemorrhoids were found during retroflexion. The hemorrhoids were medium-sized and Grade I (internal hemorrhoids that do not prolapse). Impression: - The examined portion of the ileum was normal. - Two 3 to 5 mm polyps in the transverse colon, removed with a cold snare. Resected and retrieved. - Internal hemorrhoids. Recommendation: - Await pathology results. - Repeat colonoscopy in 3 years for surveillance. - Return to referring physician as previously scheduled. - Discharge patient to home. Eileen Diop D.O. Eileen Diop, 11/17/2017 10:08:04 AM This report has been signed electronically. Note Initiated On: 11/17/2017 9:26 AM I attest to the content of the Intraoperative Record and orders documented therein, exceptions below
--- NOTE | 2017-11-17 10:29 | Discharge Instructions ---
Endoscopy Patient Instructions Date / Procedure(s) Performed Nov 17, 2017. Colonoscopy Allergy Information Coded Allergies: Metformin (Verified Allergy, Intermediate, causes kidney problems, 11/09/17 ) Loratadine (Verified Allergy, Unknown, MOUTH SWELLING, 11/09/17) Sulfamethoxazole w/Trimethoprim (Verified Allergy, Unknown, "ITS BEEN SO LONG, I FORGET", 11/09/17) HMG-CoA-R Inhibitors (Verified Adverse Reaction, Mild, GI UPSET, 11/09/17) ? GI UPSET PER DR PATEL Sulfa Antibiotics (Verified Adverse Reaction, Unknown, NAUSEA, 11/09/17) Discharge Date / Findings Nov 17, 2017. polyps Medication Instructions Stopped Medication(s): PT UNSURE WHEN SHE TOOK MEDICATION LAST. PT A POOR HISTORIAN. PT ON ASPIRIN. Restart Stopped Medication(s): OK to resume all meds Provider Instructions Activity Restrictions - No exercising or heavy lifting for 24 hours. - Do not drink alcohol the day of the procedure. - Do not drive a car or operate machinery until the day after the procedure. - Do not make any important decisions or sign important papers in 24 hours after the procedure. Following Day: - Return to full activity which may include returning to work/school. Diet Start your diet with liquids and light foods (jello, soup, juice, toast). Then eat your usual diet if not nauseated. Treatment For Common After Affects For mild abdominal pain, bloating, or excessive gas: - Rest - Eat lightly - Lie on right side Follow-Up Information Follow-up with DR MARRREO as scheduled Anesthesia Information What You Should Know You have had a procedure that required some medicine to reduce anxiety and discomfort. This treatment is called moderate sedation. After receiving the treatment, you may be sleepy, but you will be able to breathe on your own. The effects of the treatment may last for several hours. Follow these instructions along with Activity/Diet recommendations noted above: * Do NOT do anything where dizziness or clumsiness would be dangerous. * Rest quietly at home today, then you can be up and about tomorrow. * Have a responsible person stay with you the rest of today. * You may have had an I.V. today. If so, you may take the dressing off later today. Recommendations Call your doctor if: * Trouble breathing * Continuous vomiting for more than 24 hours * Temperature above 101 degrees * Severe abdominal pain or bloating * Pain not relieved by pain medicine ordered * There is increased drainage or redness from any incision * A large amount of rectal bleeding greater than 2-3 tablespoons. (If you had a polyp/s removed or have hemorrhoids, a small amount of blood - from the rectum is to be expected.) * You have any unanswered questions or concerns. IN THE EVENT OF A SERIOUS EMERGENCY, GO TO THE NEAREST EMERGENCY ROOM Your discharge instructions were prepared by provider Eileen Diop. Patient Instructions Signature Page Mckenna White Patient (or Guardian) Signature/Date: I have read and understand the instructions given to me by my caregivers. Caregiver/RN/Doctor Signature/Date: The above-named patient and/or guardian has received patient instructions on this date. + Original Patient Signature Page (only) stays with chart. Please make copy for patient.
[2017-11-17 10:41] VITALS: BP 159/65; PULSE 59; O2SAT 96
--- NOTE | 2017-11-17 10:53 | Anesthesiology Progress Note ---
Anesthesia Post Op Note Date & Time Nov 17, 2017 at 10:53 Vital Signs Vital Signs Past 12 Hours Date Time Temp Pulse Resp B/P (MAP) Pulse Ox O2 Delivery O2 Flow Rate FiO2 11/17/17 10:41 59 16 159/65 (96) 96 Room Air 11/17/17 10:26 53 16 145/59 (87) 98 Room Air 11/17/17 10:11 56 16 150/61 (90) 96 Room Air 11/17/17 09:26 37.2 56 20 149/73 (98) 97 Room Air Notes Mental Status: alert / awake / arousable, participated in evaluation Pt Amnestic to Procedure: Yes Nausea / Vomiting: adequately controlled Pain: adequately controlled Airway Patency, RR, SpO2: stable & adequate BP & HR: stable & adequate Hydration State: stable & adequate Anesthetic Complications: no major complications apparent
== END | disposition home or self-care (01) ==
LOC: C.GI 08:27
PROVIDERS: ATTEND Internal Medicine
DX: Z12.11 Encounter for screening for malignant neoplasm of colon (principal); D12.3 Benign neoplasm of transverse colon; K64.8 Other hemorrhoids; E11.9 Type 2 diabetes mellitus without complications; M19.90 Unspecified osteoarthritis, unspecified site; E78.00 Pure hypercholesterolemia, unspecified; I10 Essential (primary) hypertension; N28.9 Disorder of kidney and ureter, unspecified; I25.2 Old myocardial infarction; Z86.010 Personal history of colon polyps; Z95.1 Presence of aortocoronary bypass graft; Z80.0 Family history of malignant neoplasm of digestive organs; Z88.2 Allergy status to sulfonamides; Z88.8 Allergy status to other drugs, medicaments and biological substances; Z79.899 Other long term (current) drug therapy; Z79.4 Long term (current) use of insulin; Z79.82 Long term (current) use of aspirin

== ENCOUNTER 2018-01-01 15:38 | Inpatient (IN) | payer OTHER ==
[~2018-01-01] VITALS: Ht 149.9 cm; Wt 124.6 kg
[~2018-01-01 15:38] MED LIST changes: -INSDGI SC; +INSDGI SQ; -INSU100I2 SC; +INSU100I2 SQ; -LIDOCAINE HCL 2% 2 ML VIAL (20MG/ML) ONE; -PROPOFOL IV EMULSION 10 MG/ML 20 ML VIAL IV ONE; -SODIUM CHLORIDE 0.9% 500ML 500 ML IV ONE
[2018-01-01] MEDS ORDERED: SODIUM CHLORIDE 0.9% 1000ML 250 ML IV STA (15:55)
--- NOTE | 2018-01-01 16:16 | EMERGENCY ROOM VISIT NOTE ---
History Report prepared by Pola: Yazmin Juárez Under the Supervision of: Dr. Arron Meraz M.D. First contact with patient: 15:45 Chief Complaint: BACK PAIN Stated Complaint: BACK PAIN AND SIDE History of Present Illness The patient is a 72 year old female who presents to the Emergency Room with complaints of right lower back pain starting 4 days ago. She describes the pain as an intermittent sharp pain. It worsens with movement. She has tried a heating pad, Aspercreme, and patches to no significant relief. She has had some burning with urination. She denies any numbness, weakness, change in bowel movement, chest pain, SOB, fever, cough, or diarrhea. She denies any fall or injury. She has had UTI in the past and her current symptoms feel similar. She has a history of diabetes. Her blood sugar has been OK. She has had a cholecystectomy. She is on aspirin. She has had C diff in the past. Source of History: patient Onset: 4 days ago Position: back (right lower) Quality: sharp Timing: intermittent Modifying Factors (Worsening): movement Associated Symptoms: + urinary symptoms, No fevers, No cough, No chest pain , No SOB, No diarrhea, No weakness, No numbness Review of Systems See HPI for pertinent positives & negatives. A total of 10 systems reviewed and were otherwise negative. Past Medical & Surgical Medical Problems: (1) Adjustment disorder (2) CKD (chronic kidney disease), stage III (3) GERD (gastroesophageal reflux disease) (4) HLD (hyperlipidemia) (5) Hypertension (6) Hypertensive heart disease (7) Hyponatremia (8) IBS (irritable bowel syndrome) (9) Insulin dependent diabetes mellitus (10) Morbid obesity Surgical Problems: (1) H/O hernia repair (2) H/O: (3) H/O: hysterectomy (4) S/P cholecystectomy Old medical records were reviewed. Nurse's notes were reviewed and I agree with. Family History Cardiac disorder MOTHER Diabetes mellitus FATHER Social History Smoking Status: Never Smoker Drug Use: none Marital Status: Occupation Status: retired Current/Historical Medications Scheduled Amlodipine (Norvasc), 10 MG PO QAM Amoxicillin (Amoxil), 500 MG PO QAM Aspirin (Aspirin Ec), 325 MG PO QAM Carvedilol (Coreg), 12.5 MG PO BID Cholecalciferol (Vitamin D), 1,000 UNITS PO DAILY Clonazepam (Klonopin), 1 MG PO HS Clonidine Hcl (Catapres), 0.2 MG PO BID Estradiol Vaginal (Estrace), 1 DOSE PV 3XWK Fenofibrate (Tricor), 145 MG PO QPM Fluticasone Propionate (Nasal) (Flonase Allergy Relief), 1 SPRAY ANSELMO DAILY Gabapentin (Neurontin), 600 MG PO BID Gabapentin (Neurontin), 300 MG PO DAILY@MIDDAY Hydralazine Hcl (Apresoline), 50 MG PO TID Insulin Glargine (Lantus), 20 UNITS SQ BID Insulin Lispro (Human) (Humalog Kwikpen), 10 UNITS SQ TID Lactobacillus Acidophilus (Lactinex), 1 TAB PO TIDM Metolazone (Zaroxolyn), 5 MG PO WEEKLY Nitroglycerin (Nitrostat), 0.4 MG UT PRN Pantoprazole (Protonix), 40 MG PO QPM Ranitidine (Zantac), 150 MG PO BID Rosuvastatin Calcium (Crestor), 40 MG PO QPM Sertraline (Zoloft), 50 MG PO QAM Topiramate (Topamax ), 25 MG PO BID Scheduled PRN Betamethasone Hilary (Valisone 0.1% Oint), 1 DOSE EXT DIRECTED PRN for PRN Furosemide (Lasix), 40 MG PO BID PRN for EDEMA Nystatin/Triamcinolone (Mycolog ||), 1 DOSE EXT DIRECTED PRN for PRN Oxycodone/Acetaminophen 5MG/325MG (Percocet 5MG/325MG), 1-2 TABLETS PO Q4H PRN for Pain Triamcinolone Acet (Aristocort 0.1%), 1 DOSE EXT DIRECTED PRN for PRN Allergies Coded Allergies: Metformin (Verified Allergy, Intermediate, causes kidney problems, 11/09/17 ) Loratadine (Verified Allergy, Unknown, MOUTH SWELLING, 11/09/17) Sulfamethoxazole w/Trimethoprim (Verified Allergy, Unknown, "ITS BEEN SO LONG, I FORGET", 11/09/17) HMG-CoA-R Inhibitors (Verified Adverse Reaction, Mild, GI UPSET, 11/09/17) ? GI UPSET PER DR PATEL Sulfa Antibiotics (Verified Adverse Reaction, Unknown, NAUSEA, 11/09/17) Physical Exam Vital Signs Date Time Temp Pulse Resp B/P (MAP) Pulse Ox O2 Delivery O2 Flow Rate FiO2 01/01/18 18:55 62 18 179/60 99 Room Air 01/01/18 17:37 59 20 178/56 98 Room Air 01/01/18 15:39 36.3 61 20 152/68 96 Room Air Physical Exam General: Non-ill appearing older female in no acute distress. HEENT: Normal cephalic atraumatic. Pupils are equal round and reactive to light. Extraocular movements are intact. Oropharynx is pink with moist mucous membranes. No swelling of the mouth lips or tongue. Neck: Supple with a midline trachea. No meningeal signs or stiffness, no JVD or bruits. No Stridor. Chest: Clear to auscultation bilaterally. No wheezes or rhonchi. No increased work of breathing. Heart: regular rate and rhythm. Abdomen: Soft, mildly tender in the right mid abdomen towards the flank, no rash or external signs of trauma, nondistended without rebound guarding or rigidity. Extremities: No cyanosis clubbing or edema. No calf tenderness or assymetry Spine/Back. Non tender to palpation. No CVA tenderness Skin: Good turgor without rashes. Neurologic exam: Cranial nerves two through 12 are intact. Motor and sensation are intact and symmetrical throughout. Medical Decision & Procedures ER Provider Diagnostic Interpretation: X-ray results as stated below per interpretation by me and the radiologist. Radiology results as stated below per my review and radiologist interpretation: CHEST ONE VIEW PORTABLE CLINICAL HISTORY: 72 years-old Female presenting with CHEST PAIN. TECHNIQUE: Portable upright AP view of the chest was obtained. COMPARISON: 09/07/2016. FINDINGS: Atherosclerosis of aortic arch. Cardiac silhouette enlarged. Pulmonary vascular prominence. Apparent hazy bibasilar opacities may relate to overlapping soft tissue. No other focal opacity. No large effusion or pneumothorax. Degenerative changes of the thoracic spine. Upper abdomen normal. IMPRESSION: 1. Cardiomegaly with volume overload. No kalie pulmonary edema. Image quality is degraded by portable technique and body habitus limiting diagnostic sensitivity. Electronically signed by: Niraj Iniguez M.D. 01/01/2018 4:22 PM Dictated Date/Time: 01/01/2018 4:21 PM ABD/PELVIS WITHOUT FOR STONE CLINICAL HISTORY: 72 years-old Female presenting with eval for stone. TECHNIQUE: Multidetector CT of the abdomen and pelvis was performed without the use of intravenous contrast. IV contrast: None. A dose lowering technique was used consistent with the principles of ALARA (as low as reasonably achievable). COMPARISON: 08/11/2015. CT DOSE (mGy.cm): The estimated cumulative dose is 2098.84 mGy.cm. FINDINGS: [employer] Technician topogram: Cholecystectomy clips noted. Lung bases: Mosaic attenuation suggest small airways disease. Multichamber enlargement of the heart. Coronary artery, aortic valve, and mitral annular calcification. No pericardial or pleural effusion. Liver: Normal morphology. Normal density. Biliary: Mild biliary ductal prominence likely a reservoir effect in the post cholecystectomy state. Gallbladder surgically absent. Pancreas: Moderate parenchymal atrophy. Spleen: Normal noncontrast appearance. Adrenal glands: Normal noncontrast appearance. Kidneys and ureters: Normal noncontrast appearance. No nephrolithiasis. No hydronephrosis. Normal ureters. Focal hyperattenuation in the parenchyma of the interpolar region of the left kidney is new from prior and may represent focal calcification or a hemorrhagic or proteinaceous cysts. Bladder: Normal. Pelvic organs: Uterus surgically absent. No adnexal masses. Bowel: Normal appendix. No bowel obstruction. Small hiatal hernia. Peritoneal cavity: No free fluid or intraperitoneal gas. Lymph nodes: No gross lymphadenopathy allowing for noncontrast technique. Mildly prominent right external iliac lymph nodes measuring up to 10 mm in the short axis. Similar prominent lymph nodes noted on the left. Vasculature: Atherosclerosis of the normal caliber abdominal aorta. Abdominal wall: Nonspecific subcutaneous edema in the lumbar region. Musculoskeletal: Degenerative changes of the spine. Osteopenia. IMPRESSION: 1. No acute intra-abdominal pathology. No evidence of nephrolithiasis or hydronephrosis. No CT evidence of cystitis, which does not exclude the diagnosis. 2. Mildly prominent bilateral external iliac lymph nodes, possibly reactive. 3. Mosaic attenuation at the lung bases suggest small airways disease. 4. Cardiomegaly. Electronically signed by: Niraj Iniguez M.D. 01/01/2018 6:41 PM Dictated Date/Time: 01/01/2018 6:35 PM Laboratory Results 01/01/18 16:14 Red Blood Count 3.54, Mean Corpuscular Volume 85.9, Mean Corpuscular Hemoglobin 29.1, Mean Corpuscular Hemoglobin Concent 33.9, Mean Platelet Volume 9.8, Neutrophils (%) (Auto) 54.1, Lymphocytes (%) (Auto) 33.6, Monocytes (%) (Auto) 9.4, Eosinophils (%) (Auto) 2.4, Basophils (%) (Auto) 0.3, Neutrophils # (Auto) 4.82, Lymphocytes # (Auto) 2.99, Monocytes # (Auto) 0.84, Eosinophils # (Auto) 0.21, Basophils # (Auto) 0.03 01/01/18 16:14 Test 01/01/18 16:14 01/01/18 16:23 01/01/18 17:15 White Blood Count 8.91 K/uL (4.8-10.8) Red Blood Count 3.54 M/uL (4.2-5.4) Hemoglobin 10.3 g/dL (12.0-16.0) Hematocrit 30.4 % (37-47) Mean Corpuscular Volume 85.9 fL (80-100) Mean Corpuscular Hemoglobin 29.1 pg (25-34) Mean Corpuscular Hemoglobin Concent 33.9 g/dl (32-36) Platelet Count 229 K/uL (130-400) Mean Platelet Volume 9.8 fL (7.4-10.4) Neutrophils (%) (Auto) 54.1 % Lymphocytes (%) (Auto) 33.6 % Monocytes (%) (Auto) 9.4 % Eosinophils (%) (Auto) 2.4 % Basophils (%) (Auto) 0.3 % Neutrophils # (Auto) 4.82 K/uL (1.4-6.5) Lymphocytes # (Auto) 2.99 K/uL (1.2-3.4) Monocytes # (Auto) 0.84 K/uL (0.11-0.59) Eosinophils # (Auto) 0.21 K/uL (0-0.5) Basophils # (Auto) 0.03 K/uL (0-0.2) RDW Standard Deviation 43.8 fL (36.4-46.3) RDW Coefficient of Variation 13.9 % (11.5-14.5) Immature Granulocyte % (Auto) 0.2 % Immature Granulocyte # (Auto) 0.02 K/uL (0.00-0.02) Anion Gap 8.0 mmol/L (3-11) Estimated GFR () 30.8 Estimated GFR (Non- 26.6 BUN/Creatinine Ratio 13.3 (10-20) Calcium Level 8.3 mg/dl (8.5-10.1) Total Bilirubin 0.4 mg/dl (0.2-1) Direct Bilirubin 0.3 mg/dl (0-0.2) Aspartate Amino Transf (AST/SGOT) 25 U/L (15-37) Alanine Aminotransferase (ALT/SGPT) 16 U/L (12-78) Alkaline Phosphatase 53 U/L (45-117) Total Protein 6.6 gm/dl (6.4-8.2) Albumin 2.9 gm/dl (3.4-5.0) Lipase 93 U/L (73-393) Bedside Lactic Acid Venous 1.11 mmol/L (0.90-1.70) Urine Color YELLOW Urine Appearance CLEAR (CLEAR) Urine pH 7.0 (4.5-7.5) Urine Specific Harvey 1.010 (1.000-1.030) Urine Protein NEG (NEG) Urine Glucose (UA) NEG (NEG) Urine Ketones NEG (NEG) Urine Occult Blood NEG (NEG) Urine Nitrite POS (NEG) Urine Bilirubin NEG (NEG) Urine Urobilinogen NEG (NEG) Urine Leukocyte Esterase MODERATE (NEG) Urine WBC (Auto) 5-10 /hpf (0-5) Urine RBC (Auto) 0-4 /hpf (0-4) Urine Hyaline Casts (Auto) 0 /lpf (0-5) Urine Epithelial Cells (Auto) 5-10 /lpf (0-5) Urine Bacteria (Auto) 4+ (NEG) Laboratory studies as stated above per my review. Medications Administered Medications (Trade) Dose Ordered Sig/Hansel Route Start Time Stop Time Status Last Admin Dose Admin Sodium Chloride 250 ml @ 999 mls/hr Q16M STAT IV 01/01/18 15:55 01/01/18 16:10 DC 01/01/18 17:37 999 MLS/HR Morphine Sulfate (MoRPHine SULFATE INJ) 2 mg NOW STAT IV 01/01/18 16:54 01/01/18 16:55 DC 01/01/18 17:35 2 MG Ondansetron HCl (Zofran Inj) 4 mg NOW STAT IV 01/01/18 16:54 01/01/18 16:55 DC 01/01/18 17:36 4 MG Ertapenem 1000 mg/ Sodium Chloride 60 ml @ 100 mls/hr TODAY@1915 IV 01/01/18 19:15 01/01/18 23:59 01/01/18 19:36 100 MLS/HR ECG Per My Interpretation Indication: abdominal pain Rate (beats per minute): 61 Rhythm: normal sinus Findings: 1st degree AV block, no acute ischemic change Comparison ECG Date: 09-Sep-2016 Change: no significant change ED Course 1549: Past medical records reviewed. The patient was evaluated in room B8, and a complete history and physical examination were performed. 1555: Sodium Chloride 250 ml @ 999 mls/hr IV. 164: I reevaluated the patient. She is asking for pain medications. 1653: Zofran Inj 4 mg IV, Morphine Sulfate 2 mg IV. 1900: Upon reevaluation, the patient is resting comfortably. I discussed the results and treatment plan with the patient. She verbalized agreement of the treatment plan. The patient will be evaluated for further management. 1913: I discussed the patient's case with Dr. Capone, [facility]. The patient will be evaluated for further management. 1914: Invanz Iv 1 gm IV. Medical Decision Differentials include, but are not limited to; UTI, kidney stone, musculoskeletal, sepsis, cardiac disease. This patient comes in as described above she has right abdominal and back pain. She does have a history of multiresistant UTIs. She has had some frequency although is on a diuretic. She has had no fall or trauma. Her symptoms seem to be worse with movement. She has no numbness or weakness or anything to suggest cauda equina syndrome. She is afebrile. IV access was established and blood work was obtained including blood cultures and lactic acid. I did a chest x-ray as well as a CAT scan of her abdomen and pelvis and catheterized urinalysis and culture. The patient was reassessed frequently. She did require IV morphine for pain. Her urinalysis on a catheterized specimen has 4+ bacteria therefore suggesting a UTI. She has no white count elevation or lactic acid elevation. Her kidney function is mildly elevated compared to baseline as well. CAT scan was unremarkable and she has no obstructive uropathy. I am concerned that she has had multiple resistant UTIs that have been susceptible to ertapenem in the past and I did give her IV ertapenem. I do think given this and the fact that she is diabetic and has multiple comorbidities that she should come in to the hospital for UTI and possible early pyelonephritis. I have consulted the [facility] hospitalist to see in the ER for these measures. Medication Reconcilliation Current Medication List: was personally reviewed by me Blood Pressure Screening Patient's blood pressure: Elevated blood pressure Referred to hospitalist. Consults Time Called: 1910 Consulting Physician: Dr. Capone, [facility] hospitalist Returned Call: 1913 Discussed the patient's case. The patient will be evaluated for further management. Impression Primary Impression: UTI (urinary tract infection) Additional Impression: Right flank pain Scribe Attestation The scribe's documentation has been prepared under my direction and personally reviewed by me in its entirety. I confirm that the note above accurately reflects all work, treatment, procedures, and medical decision making performed by me. Departure Information Dispostion Being Evaluated By Hospitalist Referrals Angela Marin M.D. (PCP) Patient Instructions [facility] Problem Qualifiers
--- NOTE | 2018-01-01 16:23 | DIAGNOSTIC IMAGING REPORT ---
CHEST ONE VIEW PORTABLE CLINICAL HISTORY: 72 years-old Female presenting with CHEST PAIN. TECHNIQUE: Portable upright AP view of the chest was obtained. COMPARISON: 09/07/2016. FINDINGS: Atherosclerosis of aortic arch. Cardiac silhouette enlarged. Pulmonary vascular prominence. Apparent hazy bibasilar opacities may relate to overlapping soft tissue. No other focal opacity. No large effusion or pneumothorax. Degenerative changes of the thoracic spine. Upper abdomen normal. IMPRESSION: 1. Cardiomegaly with volume overload. No kalie pulmonary edema. Image quality is degraded by portable technique and body habitus limiting diagnostic sensitivity. Electronically signed by: Niraj Iniguez M.D. 01/01/2018 4:22 PM Dictated Date/Time: 01/01/2018 4:21 PM
[2018-01-01 16:36] LABS: BASO % 0.3 %; BASO ABS # 0.03 K/uL (0-0.2); EOS % 2.4 %; EOS ABS # 0.21 K/uL (0-0.5); HEMATOCRIT 30.4 % (37-47); HEMOGLOBIN 10.3 g/dL (12.0-16.0); IG# 0.02 K/uL (0.00-0.02); LYMPH % 33.6 %; LYMPH ABS # 2.99 K/uL (1.2-3.4); MEAN CELL VOLUME 85.9 fL (80-100); MEAN CORPUSCULAR HEMOGLOBIN 29.1 pg (25-34); MEAN CORPUSCULAR HGB CONC 33.9 g/dl (32-36); MEAN PLATELET VOLUME 9.8 fL (7.4-10.4); MONO % 9.4 %; MONO ABS # 0.84 K/uL (0.11-0.59); NEUT % 54.1 %; NEUT ABS # 4.82 K/uL (1.4-6.5); PLATELET COUNT 229 K/uL (130-400); RED CELL DISTRIBUTION WIDTH CV 13.9 % (11.5-14.5); RED CELL DISTRIBUTION WIDTH SD 43.8 fL (36.4-46.3); WHITE BLOOD COUNT 8.91 K/uL (4.8-10.8)
[2018-01-01] MEDS ORDERED: GABA-113 PO (16:42)
[2018-01-01] MEDS ORDERED: MoRPHine SULFATE 2 MG/ML CARP IV STA (16:54)
[2018-01-01] MEDS ORDERED: ONDANSETRON INJ 2 MG/ML 2 ML VIAL IV STA (16:54)
[2018-01-01 16:57] LABS: ALBUMIN 2.9 gm/dl (3.4-5.0); ALT/SGPT 16 U/L (12-78); AST/SGOT 25 U/L (15-37); BLOOD UREA NITROGEN 25 mg/dl (7-18); CALCIUM 8.3 mg/dl (8.5-10.1); CARBON DIOXIDE 27 mmol/L (21-32); CREATININE 1.86 mg/dl (0.60-1.20); GLUCOSE 110 mg/dl (70-99); LIPASE 93 U/L (73-393); POTASSIUM 3.5 mmol/L (3.5-5.1); SODIUM 131 mmol/L (136-145)
[2018-01-01 17:00] LABS: ALKALINE PHOSPHATASE 53 U/L (45-117); TOTAL PROTEIN 6.6 gm/dl (6.4-8.2)
[2018-01-01] MEDS ORDERED: METO5TAB25 PO (17:34)
--- NOTE | 2018-01-01 18:42 | DIAGNOSTIC IMAGING REPORT ---
ABD/PELVIS WITHOUT FOR STONE CLINICAL HISTORY: 72 years-old Female presenting with eval for stone. TECHNIQUE: Multidetector CT of the abdomen and pelvis was performed without the use of intravenous contrast. IV contrast: None. A dose lowering technique was used consistent with the principles of ALARA (as low as reasonably achievable). COMPARISON: 08/11/2015. CT DOSE (mGy.cm): The estimated cumulative dose is 2098.84 mGy.cm. FINDINGS: Can Patcher topogram: Cholecystectomy clips noted. Lung bases: Mosaic attenuation suggest small airways disease. Multichamber enlargement of the heart. Coronary artery, aortic valve, and mitral annular calcification. No pericardial or pleural effusion. Liver: Normal morphology. Normal density. Biliary: Mild biliary ductal prominence likely a reservoir effect in the post cholecystectomy state. Gallbladder surgically absent. Pancreas: Moderate parenchymal atrophy. Spleen: Normal noncontrast appearance. Adrenal glands: Normal noncontrast appearance. Kidneys and ureters: Normal noncontrast appearance. No nephrolithiasis. No hydronephrosis. Normal ureters. Focal hyperattenuation in the parenchyma of the interpolar region of the left kidney is new from prior and may represent focal calcification or a hemorrhagic or proteinaceous cysts. Bladder: Normal. Pelvic organs: Uterus surgically absent. No adnexal masses. Bowel: Normal appendix. No bowel obstruction. Small hiatal hernia. Peritoneal cavity: No free fluid or intraperitoneal gas. Lymph nodes: No gross lymphadenopathy allowing for noncontrast technique. Mildly prominent right external iliac lymph nodes measuring up to 10 mm in the short axis. Similar prominent lymph nodes noted on the left. Vasculature: Atherosclerosis of the normal caliber abdominal aorta. Abdominal wall: Nonspecific subcutaneous edema in the lumbar region. Musculoskeletal: Degenerative changes of the spine. Osteopenia. IMPRESSION: 1. No acute intra-abdominal pathology. No evidence of nephrolithiasis or hydronephrosis. No CT evidence of cystitis, which does not exclude the diagnosis. 2. Mildly prominent bilateral external iliac lymph nodes, possibly reactive. 3. Mosaic attenuation at the lung bases suggest small airways disease. 4. Cardiomegaly. Electronically signed by: Niraj Iniguez M.D. 01/01/2018 6:41 PM Dictated Date/Time: 01/01/2018 6:35 PM
[2018-01-01] MEDS ORDERED: ERTAPENEM 1 GM ADDVIAL IV ONE (19:15)
[2018-01-01] MEDS ORDERED: ERTAPENEM IV 1,000 MG in SODIUM CHLORIDE 0.9% 50ML 50 ML IV SCH (19:15)
[2018-01-01 20:57] VITALS: BP 158/82; PULSE 64; TEMP 36.4; O2SAT 96; Ht 149.9 cm; Wt 124.6 kg
--- NOTE | 2018-01-01 20:58 | History and Physical ---
History & Physical Date & Time of Service: January 01, 2018 at 20:58 Chief Complaint: Hyponatremia, Right Flank Pain, Uti Primary Care Physician: Angela Marin M.D. History of Present Illness Source: patient This is a 72-year-old female, with past medical history of CKD stage III, GERD, hyperlipidemia, hypertension, chronic hyponatremia, insulin-dependent type 2 diabetes Presented to ER with complaint of right flank pain for the last 4-5 Patient reports of sharp pain with spasm mild improvement with heating pad Has increased frequency of urination, no burning sensation during urination No fever or chills No nausea, vomiting or diarrhea Patient has a prior history of complicated UTI/[id number] E. coli ESBL This time urinary discomfort right flank pain is worse than her prior urinary tract infection episode Past Medical/Surgical History Medical Problems: (1) Adjustment disorder (2) MAGGIE (acute kidney injury) (3) C. difficile enteritis (4) Calcaneal fracture (5) CKD (chronic kidney disease), stage III (6) Elevated troponin (7) Fracture of humeral head, closed (8) GERD (gastroesophageal reflux disease) (9) HLD (hyperlipidemia) (10) Hypertension (11) Hypertensive heart disease (12) Hyponatremia (13) IBS (irritable bowel syndrome) (14) Insulin dependent diabetes mellitus (15) Leukocytosis (16) Morbid obesity Surgical Problems: (1) H/O hernia repair (2) H/O: (3) H/O: hysterectomy (4) S/P cholecystectomy Family History Cardiac disorder MOTHER Diabetes mellitus FATHER Social History Smoking Status: Never Smoker Drug Use: none Marital Status: Housing status: lives with family Occupational Status: retired Immunizations History of Influenza Vaccine: Yes Influenza Vaccine Date: Jun 26, 2015 History of Tetanus Vaccine?: Yes Tetanus Immunization Date: Dec 09, 2009 History of Pneumococcal: Yes Pneumococcal Date: Dec 09, 2006 History of Hepatitis B Vaccine: No Multi-Drug Resistant Organisms History of MDRO: No Allergies Coded Allergies: Metformin (Verified Allergy, Intermediate, causes kidney problems, 11/09/17 ) Loratadine (Verified Allergy, Unknown, MOUTH SWELLING, 11/09/17) Sulfamethoxazole w/Trimethoprim (Verified Allergy, Unknown, "ITS BEEN SO LONG, I FORGET", 11/09/17) HMG-CoA-R Inhibitors (Verified Adverse Reaction, Mild, GI UPSET, 11/09/17) ? GI UPSET PER DR PATEL Sulfa Antibiotics (Verified Adverse Reaction, Unknown, NAUSEA, 11/09/17) Home Medications Scheduled Amlodipine (Norvasc), 10 MG PO QAM Amoxicillin (Amoxil), 500 MG PO QAM Aspirin (Aspirin Ec), 325 MG PO QAM Carvedilol (Coreg), 12.5 MG PO BID Cholecalciferol (Vitamin D), 1,000 UNITS PO DAILY Clonazepam (Klonopin), 1 MG PO HS Clonidine Hcl (Catapres), 0.2 MG PO BID Estradiol Vaginal (Estrace), 1 DOSE PV 3XWK Fenofibrate (Tricor), 145 MG PO QPM Fluticasone Propionate (Nasal) (Flonase Allergy Relief), 1 SPRAY ANSELMO DAILY Gabapentin (Neurontin), 600 MG PO BID Gabapentin (Neurontin), 300 MG PO DAILY@MIDDAY Hydralazine Hcl (Apresoline), 50 MG PO TID Insulin Glargine (Lantus), 20 UNITS SQ BID Insulin Lispro (Human) (Humalog Kwikpen), 10 UNITS SQ TID Lactobacillus Acidophilus (Lactinex), 1 TAB PO TIDM Metolazone (Zaroxolyn), 5 MG PO WEEKLY Nitroglycerin (Nitrostat), 0.4 MG UT PRN Pantoprazole (Protonix), 40 MG PO QPM Ranitidine (Zantac), 150 MG PO BID Rosuvastatin Calcium (Crestor), 40 MG PO QPM Sertraline (Zoloft), 50 MG PO QAM Topiramate (Topamax ), 25 MG PO BID Scheduled PRN Betamethasone Hilary (Valisone 0.1% Oint), 1 DOSE EXT DIRECTED PRN for PRN Furosemide (Lasix), 40 MG PO BID PRN for EDEMA Nystatin/Triamcinolone (Mycolog ||), 1 DOSE EXT DIRECTED PRN for PRN Oxycodone/Acetaminophen 5MG/325MG (Percocet 5MG/325MG), 1-2 TABLETS PO Q4H PRN for Pain Triamcinolone Acet (Aristocort 0.1%), 1 DOSE EXT DIRECTED PRN for PRN Review of Systems Constitutional: No fever, No chills, No sweats, No weight loss, No weakness, No fatigue, No problem reported Respiratory: No cough, No sputum, No wheezing, No shortness of breath, No dyspnea on exertion, No dyspnea at rest, No hemoptysis, No problem reported Cardiovascular: No chest pain, No orthopnea, No PND, No edema, No claudication , No palpitations, No problem reported Abdomen: + problem reported (Right flank pain) Genitourinary - Female: + urinary frequency, + urinary urgency, + urinary incontinence Neurologic: No memory loss, No paralysis, No weakness, No numbness/tingling, No vertigo, No balance problems, No problem reported Psychiatric: No depression symptoms, No anhedonism, No anxiety, No insomnia, No substance abuse, No problem reported Physical Exam Vital Signs Date Time Temp Pulse Resp B/P (MAP) Pulse Ox O2 Delivery O2 Flow Rate FiO2 01/01/18 19:46 64 18 177/69 98 01/01/18 18:55 62 18 179/60 99 Room Air 01/01/18 17:37 59 20 178/56 98 Room Air 01/01/18 15:39 36.3 61 20 152/68 96 Room Air General Appearance: no apparent distress Head: normocephalic, atraumatic Eyes: normal inspection, PERRL, EOMI, sclerae normal Neck: supple, thyroid normal, no carotid bruits, trachea midline Respiratory/Chest: chest non-tender, lungs clear, normal breath sounds, no respiratory distress Cardiovascular: regular rate, rhythm, no edema, normal peripheral pulses Abdomen/GI: normal bowel sounds, non tender, soft, + pertinent finding (Right flank pain) Back: + right CVA tenderness Extremities/Musculoskelatal: + pedal edema (Bilateral 2-3+ ankle and pedal edema, chronic venous stasis changes/no open wounds, no erythema no increased warmth, no sign of infection) Neurologic/Psych: no motor/sensory deficits, alert, oriented x 3 Skin: + pertinent finding (Bilateral lower extremity chronic venous stasis change) Diagnostics Laboratory Results Results Past 24 Hours Test 01/01/18 16:14 01/01/18 16:23 01/01/18 17:15 01/01/18 20:18 Range/Units White Blood Count 8.91 4.8-10.8 K/uL Red Blood Count 3.54 4.2-5.4 M/uL Hemoglobin 10.3 12.0-16.0 g/dL Hematocrit 30.4 37-47 % Mean Corpuscular Volume 85.9 80-100 fL Mean Corpuscular Hemoglobin 29.1 25-34 pg Mean Corpuscular Hemoglobin Concent 33.9 32-36 g/dl Platelet Count 229 130-400 K/uL Mean Platelet Volume 9.8 7.4-10.4 fL Neutrophils (%) (Auto) 54.1 % Lymphocytes (%) (Auto) 33.6 % Monocytes (%) (Auto) 9.4 % Eosinophils (%) (Auto) 2.4 % Basophils (%) (Auto) 0.3 % Neutrophils # (Auto) 4.82 1.4-6.5 K/uL Lymphocytes # (Auto) 2.99 1.2-3.4 K/uL Monocytes # (Auto) 0.84 0.11-0.59 K/uL Eosinophils # (Auto) 0.21 0-0.5 K/uL Basophils # (Auto) 0.03 0-0.2 K/uL RDW Standard Deviation 43.8 36.4-46.3 fL RDW Coefficient of Variation 13.9 11.5-14.5 % Immature Granulocyte % (Auto) 0.2 % Immature Granulocyte # (Auto) 0.02 0.00-0.02 K/uL Sodium Level 131 136-145 mmol/L Potassium Level 3.5 3.5-5.1 mmol/L Chloride Level 97 98-107 mmol/L Carbon Dioxide Level 27 21-32 mmol/L Anion Gap 8.0 3-11 mmol/L Blood Urea Nitrogen 25 7-18 mg/dl Creatinine 1.86 0.60-1.20 mg/dl Estimated GFR () 30.8 Estimated GFR (Non- 26.6 BUN/Creatinine Ratio 13.3 10-20 Random Glucose 110 70-99 mg/dl Calcium Level 8.3 8.5-10.1 mg/dl Total Bilirubin 0.4 0.2-1 mg/dl Direct Bilirubin 0.3 0-0.2 mg/dl Aspartate Amino Transf (AST/SGOT) 25 15-37 U/L Alanine Aminotransferase (ALT/SGPT) 16 12-78 U/L Alkaline Phosphatase 53 45-117 U/L Total Protein 6.6 6.4-8.2 gm/dl Albumin 2.9 3.4-5.0 gm/dl Lipase 93 73-393 U/L Bedside Lactic Acid Venous 1.11 0.90-1.70 mmol/L Urine Color YELLOW Urine Appearance CLEAR CLEAR Urine pH 7.0 4.5-7.5 Urine Specific [place] 1.010 1.000-1.030 Urine Protein NEG NEG Urine Glucose (UA) NEG NEG Urine Ketones NEG NEG Urine Occult Blood NEG NEG Urine Nitrite POS NEG Urine Bilirubin NEG NEG Urine Urobilinogen NEG NEG Urine Leukocyte Esterase MODERATE NEG Urine WBC (Auto) 5-10 0-5 /hpf Urine RBC (Auto) 0-4 0-4 /hpf Urine Hyaline Casts (Auto) 0 0-5 /lpf Urine Epithelial Cells (Auto) 5-10 0-5 /lpf Urine Bacteria (Auto) 4+ NEG Bedside Glucose 97 70-90 mg/dl Microbiology Results 01/01/18 Blood Culture, Received Pending 01/01/18 Blood Culture, Received Pending 01/01/18 Urine Culture, Received Pending Diagnostic Radiology CT ABDOMEN PELVIS WITHOUT CONTRAST IMPRESSION: 1. No acute intra-abdominal pathology. No evidence of nephrolithiasis or hydronephrosis. No CT evidence of cystitis, which does not exclude the diagnosis. 2. Mildly prominent bilateral external iliac lymph nodes, possibly reactive. 3. Mosaic attenuation at the lung bases suggest small airways disease. 4. Cardiomegaly. PORTABLE CHEST X-RAY IMPRESSION: 1. Cardiomegaly with volume overload. No kalie pulmonary edema. Image quality is degraded by portable technique and body habitus limiting diagnostic sensitivity. Impression Assessment and Plan HISTORY OF COMPLICATED UTI/ESBL E. COLI -Urine culture ordered -Empirically started with IV Invanz ID eval requested RIGHT FLANK PAIN CT abdomen pelvis shows no evidence of stone/no pyelonephritis Patient reports of chronic low back pain secondary to lumbar degenerative disease X-ray of lumbar spine tomorrow PT OT consult Patient will be continued with outpatient pain meds HYPERTENSION: Blood pressure elevated Continue with Coreg/p.o. hydralazine Will discontinue Norvasc for bilateral chronic lymphedema Increased clonidine dose Monitor blood pressure closely HYPERLIPIDEMIA: Continue statin TYPE 2 DIABETES: Continue basal Lantus Insulin sliding scale Hemoglobin A1c in morning BILATERAL LOWER EXTREMITY, CHRONIC LYMPHEDEMA: Lower extremity Doppler ordered to rule out DVT Ordered for Brody/compression stocking MORBID OBESITY BMI more than 56 Counseling provided for weight reduction/exercise/diet modification DIABETIC NEUROPATHY: Continue gabapentin DEPRESSION: Continue SSRI AK I ON CKD STAGE III Possible secondary to dehydration/UTI Hold Lasix Nilo contrast studies/no NSAID Gentle IV hydration HYPONATREMIA Chronic IV fluids with normal saline 75 mL/h/1 L x 1 L Repeat PRP CODE STATUS: Full code DVT prophylaxis: Moderate to high risk Subcu heparin DISPOSITION: PT OT evaluation requested prior to discharge Social service consulted for discharge plan Level of Care Med/Surg Resuscitation Status FULL RESUSCITATION VTE Prophylaxis Risk Level: Moderate Given or contraindicated: Unfractionated heparin SQ
[2018-01-01] MEDS ORDERED: OXYCODONE/ACETAMINOPHEN 5-325 TAB PO PRN (21:00)
[2018-01-01] MEDS ORDERED: FUROSEMIDE 40 MG TAB PO PRN (21:00)
[2018-01-01] MEDS ORDERED: NITROGLYCERIN 0.4 MG SL PER TAB CHARGE UT SCH (21:00)
[2018-01-01] MEDS ORDERED: CLONIDINE HCL 0.1 MG TAB PO SCH (21:00)
[2018-01-01] MEDS ORDERED: ALUMINUM/MAGNESIUM/SIMETH (MAALOX MAX) 30 ML UDC PO PRN (21:15)
[2018-01-01] MEDS ORDERED: CARBOHYDRATES FOR HYPOGLYCEMIA PO PRN (21:15)
[2018-01-01] MEDS ORDERED: GLUCAGON FOR INJ 1 MG VIAL SQ PRN (21:15)
[2018-01-01] MEDS ORDERED: GLUCOSE 40% GEL 15 GM TUBE PO PRN (21:15)
[2018-01-01] MEDS ORDERED: POLYETHYLENE (MIRALAX) 17 GM PACK PO PRN (21:15)
[2018-01-01] MEDS ORDERED: MAGNESIUM HYDROXIDE SUSP 30 ML UDC PO PRN (21:15)
[2018-01-01] MEDS ORDERED: DEXTROSE 50% 50 ML SYR IV PRN (21:15)
[2018-01-01] MEDS ORDERED: GLUCOSE 10 TABS/TUBE PO PRN (21:15)
[2018-01-01] MEDS: CARVEDILOL 12.5 MG TAB PO SCH (22:03)
[2018-01-01] MEDS: FENOFIBRATE 145 MG TAB PO SCH (22:04)
[2018-01-01] MEDS: RANITIDINE HCL 150 MG TAB PO SCH (22:04)
[2018-01-01] MEDS: TOPIRAMATE 25 MG TAB PO SCH (22:05)
[2018-01-01] MEDS: PANTOprazole SOD 40 MG TAB PO SCH (22:06)
[2018-01-01] MEDS: GABAPENTIN 300 MG CAP PO SCH (22:06)
[2018-01-01] MEDS: ROSUVASTATIN CALCIUM 20 MG TAB PO SCH (22:07)
[2018-01-01] MEDS: CLONAZEPAM 1 MG TAB PO SCH (22:18)
[2018-01-01] MEDS: INSULIN GLARGINE SOLOSTAR 100 UNITS/ML 3 ML PEN SQ SCH (22:18)
[2018-01-01] MEDS ORDERED: OXYCODONE/ACETAMINOPHEN 5-325 TAB PO ONE (22:47)
[2018-01-01] MEDS ORDERED: SODIUM CHLORIDE 0.9% 1000ML 1,000 ML IV SCH (23:00)
[2018-01-01 23:39] VITALS: BP 127/65; PULSE 57; TEMP 36.4; O2SAT 93
[2018-01-02] VITALS (9 sets, daily range): BP systolic 83–140; BP diastolic 37–76; PULSE 44–55; TEMP 36.5–36.6; O2SAT 92–95
[2018-01-02 07:10] LABS: HEMATOCRIT 29.3 % (37-47); HEMOGLOBIN 9.7 g/dL (12.0-16.0); MEAN CELL VOLUME 87.5 fL (80-100); MEAN CORPUSCULAR HGB CONC 33.1 g/dl (32-36); MEAN PLATELET VOLUME 9.6 fL (7.4-10.4); PLATELET COUNT 207 K/uL (130-400); RED CELL DISTRIBUTION WIDTH CV 14.1 % (11.5-14.5); WHITE BLOOD COUNT 7.15 K/uL (4.8-10.8)
[2018-01-02 07:22] LABS: INR 1.1 (0.9-1.1)
[2018-01-02 07:48] LABS: CALCIUM 7.8 mg/dl (8.5-10.1); CREATININE 1.64 mg/dl (0.60-1.20); POTASSIUM 3.6 mmol/L (3.5-5.1)
[2018-01-02] MEDS: OXYCODONE/ACETAMINOPHEN 5-325 TAB PO PRN (07:54)
[2018-01-02] MEDS: GABAPENTIN 300 MG CAP PO SCH ×3 (07:56→21:02)
[2018-01-02] MEDS: RANITIDINE HCL 150 MG TAB PO SCH ×2 (08:00→21:02)
[2018-01-02] MEDS: ASPIRIN 325 MG ECTAB PO SCH (08:01)
[2018-01-02] MEDS: TOPIRAMATE 25 MG TAB PO SCH (08:01)
[2018-01-02] MEDS: CHOLECALCIFEROL 1000 INTER.UNIT TAB PO SCH (08:02)
[2018-01-02] MEDS: SERTRALINE HCL 50 MG TAB PO SCH (08:03)
[2018-01-02] MEDS: LACTOBACILLUS ACIDOPHILUS (FLORANEX) TAB PO SCH ×3 (08:05→17:38)
[2018-01-02] MEDS: SENNA 8.6 MG TAB PO SCH (08:06)
[2018-01-02] MEDS: FLUTICASONE PROPIONATE NA SPR 16 GM BTL NAE SCH (08:06)
[2018-01-02] MEDS: INSULIN ASPART 100 UNITS/ML 3 ML PEN SC SCH ×4 (08:37→21:00)
[2018-01-02] MEDS: POLYETHYLENE (MIRALAX) 17 GM PACK PO SCH (08:38)
[2018-01-02] MEDS: INSULIN GLARGINE SOLOSTAR 100 UNITS/ML 3 ML PEN SQ SCH ×2 (08:41→21:09)
[2018-01-02] MEDS: HEPARIN SOD 5000 UNIT/0.5 ML CARP SQ SCH ×2 (08:43→21:10)
[2018-01-02] MEDS ORDERED: CLONIDINE HCL 0.1 MG TAB PO SCH (09:00)
[2018-01-02] MEDS ORDERED: AMLODIPINE BESYLATE 5 MG TAB PO SCH (09:00)
--- NOTE | 2018-01-02 09:34 | DIAGNOSTIC IMAGING REPORT ---
LUMBAR SPINE 2 OR 3 VIEWS HISTORY: 72 years-old Female back pain acute back pain COMPARISON: CT abdomen and pelvis 01/01/2018 TECHNIQUE: 3 views of the lumbar spine FINDINGS: Dextroscoliosis with mild bone demineralization. Moderate general changes about the bilateral femoral acetabular joints. No acute fracture or subluxation identified. Severe multilevel intervertebral disc space narrowing and facet arthrosis with moderate multilevel endplate spurring. Atherosclerosis of the aorta. Surgical clips of the right upper quadrant abdomen suggest prior cholecystectomy. Arterial calcifications are noted within the pelvis. IMPRESSION: 1. No acute fracture or subluxation. 2. Dextroscoliosis with multilevel degenerative changes as above. The above report was generated using voice recognition software. It may contain grammatical, syntax or spelling errors. Electronically signed by: Jatin Gorman M.D. 01/02/2018 9:33 AM Dictated Date/Time: 01/02/2018 9:31 AM
[2018-01-02] MEDS: CARVEDILOL 12.5 MG TAB PO SCH (10:37)
[2018-01-02] MEDS ORDERED: CYCLOBENZAPRINE HCL 5 MG TAB PO ONE (10:58)
[2018-01-02] MEDS ORDERED: LIDODERM (LIDOCAINE) PATCH 5% TD ONE (10:58)
[2018-01-02] MEDS: SODIUM CHLORIDE 0.9% 250ML 250 ML IV SCH ×2 (11:15→13:07)
--- NOTE | 2018-01-02 12:06 | Progress Note ---
Medicine Progress Note Date & Time of Visit: January 02, 2018 at 12:01. Subjective Seen resting bedside chair, comfortable, in good spirits, conversant States she feels okay overall except for mild to moderate pain on the right flank/right lumbar paraspinal region-sharp, worse with palpation and movement Denies difficulty with standing or ambulation Denies any urinary symptoms Denies dizziness, chest pain, shortness of breath, nausea this morning is in the 40s Objective Last 8 Hrs Date Time Temp Pulse Resp B/P (MAP) Pulse Ox O2 Delivery O2 Flow Rate FiO2 01/02/18 11:48 104/64 (77) 01/02/18 10:27 44 20 83/37 (52) 94 01/02/18 08:45 55 01/02/18 08:05 53 01/02/18 07:22 36.6 51 18 132/72 (92) 95 Physical Exam: General- oriented x 3, not in distress, speaking in sentences no accessory muscle use, morbidly obese Head- atraumatic Eyes- PERRL, EOMI, anicteric ENT- oropharynx clear Neck- supple, no JVD Lungs- clear breath sounds bilaterally no rales or wheezes Heart-bradycardic, regular rhythm, no murmurs Abdomen- normal bowel sounds, obese abdomen but nondistended, soft, nontender Back--small area of hematoma at the right lumbar paraspinal region, mild warmth mild, moderate tenderness to palpation, extending to the flank area extending to the flank area Extremities-grade 1 leg edema with dryness and mild erythema-chronic as per patient, no calf tenderness; peripheral pulses intact Neuro- alert, oriented x 3; no gross focal neurologic deficits Skin- warm & dry Laboratory Results: Last 24 Hours Test 01/01/18 16:14 01/01/18 16:23 01/01/18 17:15 01/01/18 20:18 White Blood Count 8.91 K/uL Red Blood Count 3.54 M/uL Hemoglobin 10.3 g/dL Hematocrit 30.4 % Mean Corpuscular Volume 85.9 fL Mean Corpuscular Hemoglobin 29.1 pg Mean Corpuscular Hemoglobin Concent 33.9 g/dl Platelet Count 229 K/uL Mean Platelet Volume 9.8 fL Neutrophils (%) (Auto) 54.1 % Lymphocytes (%) (Auto) 33.6 % Monocytes (%) (Auto) 9.4 % Eosinophils (%) (Auto) 2.4 % Basophils (%) (Auto) 0.3 % Neutrophils # (Auto) 4.82 K/uL Lymphocytes # (Auto) 2.99 K/uL Monocytes # (Auto) 0.84 K/uL Eosinophils # (Auto) 0.21 K/uL Basophils # (Auto) 0.03 K/uL RDW Standard Deviation 43.8 fL RDW Coefficient of Variation 13.9 % Immature Granulocyte % (Auto) 0.2 % Immature Granulocyte # (Auto) 0.02 K/uL Sodium Level 131 mmol/L Potassium Level 3.5 mmol/L Chloride Level 97 mmol/L Carbon Dioxide Level 27 mmol/L Anion Gap 8.0 mmol/L Blood Urea Nitrogen 25 mg/dl Creatinine 1.86 mg/dl Estimated GFR () 30.8 Estimated GFR (Non- 26.6 BUN/Creatinine Ratio 13.3 Random Glucose 110 mg/dl Calcium Level 8.3 mg/dl Total Bilirubin 0.4 mg/dl Direct Bilirubin 0.3 mg/dl Aspartate Amino Transf (AST/SGOT) 25 U/L Alanine Aminotransferase (ALT/SGPT) 16 U/L Alkaline Phosphatase 53 U/L Total Protein 6.6 gm/dl Albumin 2.9 gm/dl Lipase 93 U/L Bedside Lactic Acid Venous 1.11 mmol/L Urine Color YELLOW Urine Appearance CLEAR Urine pH 7.0 Urine Specific [place] 1.010 Urine Protein NEG Urine Glucose (UA) NEG Urine Ketones NEG Urine Occult Blood NEG Urine Nitrite POS Urine Bilirubin NEG Urine Urobilinogen NEG Urine Leukocyte Esterase MODERATE Urine WBC (Auto) 5-10 /hpf Urine RBC (Auto) 0-4 /hpf Urine Hyaline Casts (Auto) 0 /lpf Urine Epithelial Cells (Auto) 5-10 /lpf Urine Bacteria (Auto) 4+ Bedside Glucose 97 mg/dl Test 01/02/18 06:36 01/02/18 07:38 01/02/18 10:29 White Blood Count 7.15 K/uL Red Blood Count 3.35 M/uL Hemoglobin 9.7 g/dL Hematocrit 29.3 % Mean Corpuscular Volume 87.5 fL Mean Corpuscular Hemoglobin 29.0 pg Mean Corpuscular Hemoglobin Concent 33.1 g/dl RDW Standard Deviation 45.0 fL RDW Coefficient of Variation 14.1 % Platelet Count 207 K/uL Mean Platelet Volume 9.6 fL Prothrombin Time 11.7 SECONDS Prothromb Time International Ratio 1.1 Sodium Level 137 mmol/L Potassium Level 3.6 mmol/L Chloride Level 103 mmol/L Carbon Dioxide Level 28 mmol/L Anion Gap 6.0 mmol/L Blood Urea Nitrogen 23 mg/dl Creatinine 1.64 mg/dl Est Creatinine Clear Calc Drug Dose 37.4 ml/min Estimated GFR () 35.8 Estimated GFR (Non- 30.9 BUN/Creatinine Ratio 13.7 Random Glucose 115 mg/dl Calcium Level 7.8 mg/dl Procalcitonin < 0.05 ng/ml Thyroid Stimulating Hormone (TSH) 2.050 uIu/ml Bedside Glucose 111 mg/dl 116 mg/dl Date/Time Source Procedure Growth Status 01/01/18 16:39 Blood Blood Culture Pending Received 01/01/18 16:14 Blood Blood Culture Pending Received 01/01/18 17:15 Urine,Catheterized Urine Culture - Preliminary Gram Negative Bacilli Gram Negative Bacilli#2 Resulted Assessment & Plan 72-year-old pleasant female with a history of diabetes, hypertension, CKD stage III, chronic hyponatremia, recurrent UTIs Presenting with right flank pain. RIGHT FLANK PAIN LIKELY MUSCULOSKELETAL PAIN, CT abdomen pelvis shows no evidence of stone/no pyelonephritis Patient reports of chronic low back pain secondary to lumbar degenerative disease X-ray of lumbar spine 1. No acute fracture or subluxation. 2. Dextroscoliosis with multilevel degenerative changes as above. Pain is reproducible with palpation and movement We will order a trial of Lidoderm patch and Flexeril Patient uses oxycodone as needed at home continue that PT OT consult HISTORY OF COMPLICATED UTI/ESBL E. COLI -Urine culture: Gram-negative bacilli ordered Continue ertapenem day #2 infectious disease service consulted SINUS BRADYCARDIA Asymptomatic although heart rate running in the 40s marginal blood pressure from medications? Clonidine added on admission--> STOP on Carvedilol, Hydralazine, Amlodipine--> held for now due to marginal BP Echo ordered Cardiology consulted HYPERTENSION: Blood pressure elevated on admission the next day, 01/02/18, patient became bradycardic with marginal BP hold usual Carvedilol, Hydralazine, Amlodipine--> will titrate accordingly TYPE 2 DIABETES: Continue basal Lantus BILATERAL LOWER EXTREMITY, CHRONIC LYMPHEDEMA: Doppler US lower leg MORBID OBESITY BMI more than 56 Counseling provided for weight reduction/exercise/diet modification DIABETIC NEUROPATHY Continue gabapentin DEPRESSION: Continue SSRI AK I ON CKD STAGE III crea at baseline: 1.5 on admission 1.8 Possible secondary to dehydration/UTI Hold Lasix Gentle IV hydration HYPONATREMIA Chronic IV fluids with normal saline 75 mL/h/1 L x 1 resolved CODE STATUS: Full code DVT prophylaxis: Moderate to high risk Subcu heparin DISPOSITION: PT OT evaluation requested prior to discharge Social service consulted for discharge plan Current Inpatient Medications: Current Inpatient Medications Medications (Trade) Dose Ordered Sig/Hansel Route Start Time Stop Time Status Last Admin Dose Admin Aspirin (Ecotrin Tab) 325 mg QAM PO 01/02/18 09:00 02/01/18 08:59 01/02/18 08:01 325 MG Carvedilol (Coreg Tab) 12.5 mg BID PO 01/01/18 21:00 01/31/18 20:59 Future Hold 01/01/18 22:03 12.5 MG Cholecalciferol (Vitamin D Tab) 1,000 inter.unit DAILY PO 01/02/18 09:00 02/01/18 08:59 01/02/18 08:02 1,000 INTER.UNIT Clonazepam (Klonopin Tab) 1 mg HS PO 01/01/18 21:00 01/31/18 20:59 01/01/18 22:18 1 MG Fenofibrate (Tricor Tab) 145 mg QPM PO 01/01/18 21:00 01/31/18 20:59 01/01/18 22:04 145 MG Fluticasone Propionate (Flonase Nasal [place]) 1 sprays DAILY ANSELMO 01/02/18 09:00 02/01/18 08:59 01/02/18 08:06 1 SPRAYS Gabapentin (Neurontin Cap) 300 mg DAILY@1400 PO 01/02/18 14:00 02/01/18 13:59 Gabapentin (Neurontin Cap) 600 mg BID PO 01/01/18 21:00 01/31/18 20:59 01/02/18 07:56 600 MG Hydralazine HCl (Apresoline Tab) 50 mg TID PO 01/01/18 21:00 01/31/18 20:59 01/02/18 08:02 50 MG Insulin Glargine (Lantus Solostar Pen) 20 units BID SQ 01/01/18 21:00 01/31/18 20:59 01/02/18 08:41 20 UNITS Lactobacillus Acidophilus (Floranex Tab) 1 tab TIDM PO 01/02/18 08:00 02/01/18 07:59 01/02/18 08:05 1 TAB Metolazone (Zaroxolyn Tab) 5 mg Mo@0900 PO 01/03/18 09:00 02/02/18 08:59 Nitroglycerin (Nitrostat Tab) 0.4 mg PRN UT 01/01/18 21:00 01/31/18 20:59 Pantoprazole Sodium (Protonix Tab) 40 mg QPM PO 01/01/18 21:00 01/31/18 20:59 01/01/18 22:06 40 MG Ranitidine HCl (zANTac TAB) 150 mg BID PO 01/01/18 21:00 01/31/18 20:59 01/02/18 08:00 150 MG Rosuvastatin Calcium (Crestor Tab) 40 mg QPM PO 01/01/18 21:00 01/31/18 20:59 01/01/18 22:07 40 MG Sertraline HCl (Zoloft Tab) 50 mg QAM PO 01/02/18 09:00 02/01/18 08:59 01/02/18 08:03 50 MG Topiramate (Topamax Tab) 25 mg BID PO 01/01/18 21:00 01/31/18 20:59 01/02/18 08:01 25 MG Acetaminophen (Tylenol Tab) 650 mg Q4H PRN PO 01/01/18 21:15 01/31/18 21:14 Al Hydrox/Mg Hydrox/Simethicone (Maalox Max Susp) 15 ml Q4H PRN PO 01/01/18 21:15 01/31/18 21:14 Magnesium Hydroxide (Milk Of Magnesia Susp) 30 ml Q6H PRN PO 01/01/18 21:15 01/31/18 21:14 Ondansetron HCl (Zofran Inj) 4 mg Q6H PRN IV 01/01/18 21:15 01/31/18 21:14 Heparin Sodium (Porcine) (Heparin Sq 5000 Unit/0.5ml) 5,000 unit Q12H SQ 01/02/18 09:00 02/01/18 08:59 01/02/18 08:43 5,000 UNIT Insulin Aspart (novoLOG ASPART) SLIDING SCALE If C... ACHS SC 01/02/18 06:30 02/01/18 06:29 Glucose (Glucose 40% Gel) 15-30 GRAMS 15 GRAMS... UD PRN PO 01/01/18 21:15 01/31/18 21:14 Glucose (Glucose Chew Tab) 4-8 Tablets 4 Tabl... UD PRN PO 01/01/18 21:15 01/31/18 21:14 Dextrose (Dextrose 50% 50ML Syringe) 25-50ML 25ML FOR ... UD PRN IV 01/01/18 21:15 01/31/18 21:14 Glucagon (Glucagon Inj) 1 mg UD PRN SQ 01/01/18 21:15 01/31/18 21:14 Carbohydrates (Carbohydrates For Hypoglycemia) 15-30 GRAMS 15 grams if BSG 54-69... UD PRN PO 01/01/18 21:15 01/31/18 21:14 Ertapenem 1 gm/ Sodium Chloride 50 ml @ 120 mls/hr Q24H IV 01/02/18 20:00 01/10/18 20:24 Oxycodone/ Acetaminophen (Percocet 5-325mg Tab) 2 tab Q12 PRN PO 01/01/18 23:00 01/15/18 20:59 01/02/18 07:54 2 TAB Sodium Chloride 1,000 ml @ 75 mls/hr [id number] IV 01/01/18 23:00 01/02/18 12:19 01/01/18 23:31 75 MLS/HR Senna (Senokot Tab) 17.2 mg QAM PO 01/02/18 09:00 02/01/18 08:59 Polyethylene (Miralax Powder Packet) 17 gm DAILY PO 01/02/18 09:00 01/31/18 21:14 01/02/18 08:38 8 GM Clonidine HCl (Catapres Tab) 0.2 mg TID PO 01/02/18 09:00 01/31/18 20:59 Future Hold 01/02/18 08:01 0.2 MG Lidocaine (Lidoderm Patch 5%) 1 patch QAM TD 01/03/18 09:00 02/02/18 08:59 Miscellaneous (Remove Lidoderm Patch) 1 ea DAILY@21 N/A 01/02/18 21:00 02/01/18 20:59 Cyclobenzaprine HCl (Flexeril Tab) 5 mg BID PRN PO 01/02/18 11:00 02/01/18 10:59
[2018-01-02] MEDS ORDERED: NURSING DECISION MEDICATION ORDER SCH (14:15)
--- NOTE | 2018-01-02 14:51 | CARDIOLOGY CONSULTATION ---
DATE OF CONSULTATION: 01/02/2018 REFERRING PHYSICIAN: Dr. Lutz. PRIMARY CARE PHYSICIAN: Dr. Marin. INDICATIONS: Sinus bradycardia. HISTORY OF PRESENT ILLNESS: The patient is a 72-year-old female with past medical history of longstanding hypertension, dyslipidemia, type 2 diabetes mellitus, chronic obesity with lymphedema, presumed coronary disease with remote non-ST segment elevation myocardial infarction in 2000. The patient has had no recent anginal symptoms or congestive heart failure. The main issues have been chronic recurrent urinary tract infections as well as low back pain and right flank pain which resulted in ER presentation. The patient's history is notable for a mechanical fall and left humeral fracture earlier this year. She is on multiple drug regimen for hypertension and pain control. She presented this admission as described on incidental findings with vital signs this morning, the patient was noted to have marked bradycardia, heart rates in the 40s asymptomatically. EKG confirms sinus bradycardia. She is referred now for further evaluation. The patient examined. She denies any chest pain, shortness of breath, dizziness or lightheadedness and is not notable for prior history of bradyarrhythmias. Notes no syncope or near syncope. Prior falls appear mechanical in nature. The patient is currently comfortable, has been taking medications as prescribed at home, notable recent changes, addition of metolazone as an outpatient for lower extremity edema in the last 1 month's time, addition of Topamax for chronic pain in 09/2017, increase in clonidine since hospitalization for hypertension control. ALLERGIES: HMG-COA REDUCTASE INHIBITORS, LORATADINE, METFORMIN, SULFA, SULFAMETHOXAZOLE. MEDICATIONS: At home were amlodipine 10 mg p.o. daily, amoxicillin, aspirin, carvedilol 12.5 mg twice per day, clonazepam 1 mg p.o. daily, clonidine 0.2 mg b.i.d., fenofibrate 145 mg q.p.m., furosemide 40 mg b.i.d. p.r.n. edema, gabapentin 600 mg b.i.d. and additional 300 mg mid day, hydralazine 50 t.i.d., Lantus and Humalog insulin, metolazone 5 mg weekly with rare use oxycodone, pantoprazole, ranitidine, rosuvastatin 40 mg p.o. daily, sertraline 50 mg p.o. daily, and Topamax 25 mg b.i.d. PAST SURGICAL HISTORY: Notable for hysterectomy, cholecystectomy, inguinal hernia repair, past C-sections, multiple eye surgeries. FAMILY HISTORY: Positive for heart failure in mother. SOCIAL HISTORY: The patient is a . She lives with her sister. She is a nonsmoker, nondrinker. PHYSICAL EXAMINATION: GENERAL: The patient is currently comfortable without complaint. VITAL SIGNS: Heart rate is 45, blood pressure is 104/64. HEENT: Normocephalic and atraumatic. Nares without discharge. NECK: Thick. There is no distinct jugular venous distention. LUNGS: Clear. CARDIOVASCULAR: Regular with a grade 1/6 systolic murmur and bradycardic. There is no S3 gallop. ABDOMEN: Obese, soft. EXTREMITIES: Reveal chronic stasis edema. Patent pulses. LABORATORY DATA: White cell count 7.1, hemoglobin is 9.7, sodium is 137, potassium is 3.6, chloride is 103, bicarbonate is 28, BUN is 23, creatinine is 1.6. TSH is 2.0. Hepatic enzymes are normal. Albumin is 2.9. DATA: Chest x-ray reveals cardiomegaly without pulmonary edema. Mild increase in interstitial markings. Abdominal CT on admission demonstrated no acute processes. Urine is growing gram negative bacilli. IMPRESSION: A 72-year-old female admitted with flank pain and urinary tract infection, chronic back pain, was found to be bradycardic on evaluation this morning as well as mildly hypotensive. She is referred now for further evaluation. Asymptomatic at time of examination. EKG revealed no acute findings on presentation. Second EKG this morning reveals lead reversal, but sinus bradycardia. Telemetry reveals sinus bradycardia without AV pause. PLAN: Overall, findings of sinus bradycardia likely reflect multiple drug usage with recent medications as noted. Topamax as well as increase in clonidine to p.m. dosing. Will hold rate lowering drugs at time being including carvedilol, clonidine, and Topamax. Will likely need to reinstitute antihypertensive at lower dosing given amlodipine being held on presentation. The patient has been cultured to exclude infection. Echocardiogram will be ordered due to cardiomegaly on x-ray, Impression, currently asymptomatic. No acute cardiac issues noted other than bradycardia. MTDD
--- NOTE | 2018-01-02 17:16 | Medical Consult ---
Consultation Date of Consultation: January 02, 2018. Attending Physician: Solo Lutz MD Reason for Consultation: Recurrent urinary tract infection History of Present Illness 72-year-old female with history of diabetes mellitus, chronic kidney disease stage 3, hypertension, hyperlipidemia, who was admitted to the hospital with 4- 5 day history abdominal in right flank pain associated with frequency of urination with sensation of spasm, but no dysuria, no discolored urine, no fever , chills, or other associated symptoms. Patient started empirically on ertapenem. Blood cultures are no growth to date, urine culture growing gram- negative bacilli. Patient underwent abdominal CT scan, read by me, which shows no obvious hydronephrosis or other right-sided kidney changes. Past Medical/Surgical History Medical Problems: (1) MAGGIE (acute kidney injury) Status: Acute (2) C. difficile enteritis Status: Acute (3) Calcaneal fracture Status: Acute (4) Elevated troponin Status: Acute (5) Fracture of humeral head, closed Status: Acute (6) Leukocytosis Status: Acute (7) Right flank pain Status: Acute (8) UTI (urinary tract infection) Status: Acute Medical Problems: (1) Adjustment disorder (2) CKD (chronic kidney disease), stage III (3) GERD (gastroesophageal reflux disease) (4) HLD (hyperlipidemia) (5) Hypertension (6) Hypertensive heart disease (7) Hyponatremia (8) IBS (irritable bowel syndrome) (9) Insulin dependent diabetes mellitus (10) Morbid obesity Surgical Problems: (1) H/O hernia repair (2) H/O: (3) H/O: hysterectomy (4) S/P cholecystectomy Family History Cardiac disorder MOTHER Diabetes mellitus FATHER Social History Smoking Status: Never Smoker Drug Use: none Marital Status: Occupation Status: retired Allergies Coded Allergies: Metformin (Verified Allergy, Intermediate, causes kidney problems, 11/09/17 ) Loratadine (Verified Allergy, Unknown, MOUTH SWELLING, 11/09/17) Sulfamethoxazole w/Trimethoprim (Verified Allergy, Unknown, "ITS BEEN SO LONG, I FORGET", 11/09/17) HMG-CoA-R Inhibitors (Verified Adverse Reaction, Mild, GI UPSET, 11/09/17) ? GI UPSET PER DR PATEL Sulfa Antibiotics (Verified Adverse Reaction, Unknown, NAUSEA, 11/09/17) Current Inpatient Medications Current Inpatient Medications Medications (Trade) Dose Ordered Sig/Hansel Route Start Time Stop Time Status Last Admin Dose Admin Aspirin (Ecotrin Tab) 325 mg QAM PO 01/02/18 09:00 02/01/18 08:59 01/02/18 08:01 325 MG Cholecalciferol (Vitamin D Tab) 1,000 inter.unit DAILY PO 01/02/18 09:00 02/01/18 08:59 01/02/18 08:02 1,000 INTER.UNIT Clonazepam (Klonopin Tab) 1 mg HS PO 01/01/18 21:00 01/31/18 20:59 01/01/18 22:18 1 MG Fenofibrate (Tricor Tab) 145 mg QPM PO 01/01/18 21:00 01/31/18 20:59 01/01/18 22:04 145 MG Fluticasone Propionate (Flonase Nasal [place]) 1 sprays DAILY ANSELMO 01/02/18 09:00 02/01/18 08:59 01/02/18 08:06 1 SPRAYS Gabapentin (Neurontin Cap) 300 mg DAILY@1400 PO 01/02/18 14:00 02/01/18 13:59 01/02/18 14:24 300 MG Gabapentin (Neurontin Cap) 600 mg BID PO 01/01/18 21:00 01/31/18 20:59 01/02/18 07:56 600 MG Insulin Glargine (Lantus Solostar Pen) 20 units BID SQ 01/01/18 21:00 01/31/18 20:59 01/02/18 08:41 20 UNITS Lactobacillus Acidophilus (Floranex Tab) 1 tab TIDM PO 01/02/18 08:00 02/01/18 07:59 01/02/18 12:38 1 TAB Nitroglycerin (Nitrostat Tab) 0.4 mg PRN UT 01/01/18 21:00 01/31/18 20:59 Pantoprazole Sodium (Protonix Tab) 40 mg QPM PO 01/01/18 21:00 01/31/18 20:59 01/01/18 22:06 40 MG Ranitidine HCl (zANTac TAB) 150 mg BID PO 01/01/18 21:00 01/31/18 20:59 5/6/18 08:00 150 MG Rosuvastatin Calcium (Crestor Tab) 40 mg QPM PO 01/01/18 21:00 01/31/18 20:59 01/01/18 22:07 40 MG Sertraline HCl (Zoloft Tab) 50 mg QAM PO 01/02/18 09:00 02/01/18 08:59 01/02/18 08:03 50 MG Topiramate (Topamax Tab) 25 mg BID PO 01/01/18 21:00 01/31/18 20:59 Future Hold 01/02/18 08:01 25 MG Acetaminophen (Tylenol Tab) 650 mg Q4H PRN PO 01/01/18 21:15 01/31/18 21:14 Al Hydrox/Mg Hydrox/Simethicone (Maalox Max Susp) 15 ml Q4H PRN PO 01/01/18 21:15 01/31/18 21:14 Magnesium Hydroxide (Milk Of Magnesia Susp) 30 ml Q6H PRN PO 01/01/18 21:15 01/31/18 21:14 Ondansetron HCl (Zofran Inj) 4 mg Q6H PRN IV 01/01/18 21:15 01/31/18 21:14 Heparin Sodium (Porcine) (Heparin Sq 5000 Unit/0.5ml) 5,000 unit Q12H SQ 01/02/18 09:00 02/01/18 08:59 01/02/18 08:43 5,000 UNIT Insulin Aspart (novoLOG ASPART) SLIDING SCALE If C... ACHS SC 01/02/18 06:30 02/01/18 06:29 01/02/18 12:38 3 UNITS Glucose (Glucose 40% Gel) 15-30 GRAMS 15 GRAMS... UD PRN PO 01/01/18 21:15 01/31/18 21:14 Glucose (Glucose Chew Tab) 4-8 Tablets 4 Tabl... UD PRN PO 01/01/18 21:15 01/31/18 21:14 Dextrose (Dextrose 50% 50ML Syringe) 25-50ML 25ML FOR ... UD PRN IV 01/01/18 21:15 01/31/18 21:14 Glucagon (Glucagon Inj) 1 mg UD PRN SQ 01/01/18 21:15 01/31/18 21:14 Carbohydrates (Carbohydrates For Hypoglycemia) 15-30 GRAMS 15 grams if BSG 54-69... UD PRN PO 01/01/18 21:15 01/31/18 21:14 Ertapenem 1 gm/ Sodium Chloride 50 ml @ 120 mls/hr Q24H IV 01/02/18 20:00 01/10/18 20:24 Oxycodone/ Acetaminophen (Percocet 5-325mg Tab) 2 tab Q12 PRN PO 01/01/18 23:00 01/15/18 20:59 01/02/18 07:54 2 TAB Senna (Senokot Tab) 17.2 mg QAM PO 01/02/18 09:00 02/01/18 08:59 Polyethylene (Miralax Powder Packet) 17 gm DAILY PO 01/02/18 09:00 01/31/18 21:14 01/02/18 08:38 8 GM Clonidine HCl (Catapres Tab) 0.2 mg TID PO 01/02/18 09:00 01/31/18 20:59 Future Hold 01/02/18 08:01 0.2 MG Lidocaine (Lidoderm Patch 5%) 1 patch QAM TD 01/03/18 09:00 02/02/18 08:59 Miscellaneous (Remove Lidoderm Patch) 1 ea DAILY@21 N/A 01/02/18 21:00 02/01/18 20:59 Cyclobenzaprine HCl (Flexeril Tab) 5 mg BID PRN PO 01/02/18 11:00 02/01/18 10:59 Miconazole Nitrate (Desenex Powder) 1 appln PRN PRN EXT 01/02/18 14:30 02/01/18 14:29 Review of Systems Constitutional: + weakness, No fever, No chills Eyes: No problem reported ENT: No problem reported Respiratory: No problem reported Cardiovascular: No problem reported Abdomen: + pain Musculoskeletal: No problem reported Genitourinary - Female: + urinary frequency Neurologic: No problem reported Psychiatric: No problem reported Endocrine: No problem reported Hematologic / Lymphatic: No problem reported Integumentary: No problem reported Allergic / Immunologic: No problem reported Physical Exam Date Time Temp Pulse Resp B/P (MAP) Pulse Ox O2 Delivery O2 Flow Rate FiO2 01/02/18 17:00 36.5 48 19 123/69 (87) 94 5/6/18 16:00 Room Air 01/02/18 13:07 44 128/76 (93) 01/02/18 12:00 Room Air 01/02/18 11:48 104/64 (77) 01/02/18 10:27 44 20 83/37 (52) 94 01/02/18 08:45 55 01/02/18 08:05 53 01/02/18 08:00 Room Air 01/02/18 07:22 36.6 51 18 132/72 (92) 95 01/02/18 00:00 Room Air 01/01/18 23:39 36.4 57 20 127/65 (85) 93 Room Air 01/01/18 20:57 36.4 64 20 158/82 96 Room Air 01/01/18 19:46 64 18 177/69 98 01/01/18 18:55 62 18 179/60 99 Room Air 01/01/18 17:37 59 20 178/56 98 Room Air General Appearance: WD/WN, no apparent distress Head: normocephalic, atraumatic Eyes: normal inspection, EOMI, sclerae normal ENT: normal ENT inspection, hearing grossly normal, pharynx normal Neck: supple, no adenopathy, thyroid normal, trachea midline Respiratory/Chest: chest non-tender, lungs clear, normal breath sounds, no respiratory distress Cardiovascular: regular rate, rhythm, no gallop, no murmur Abdomen/GI: normal bowel sounds, non tender, soft, no organomegaly Back: normal inspection, + pertinent finding (Small right-sided hematoma, tenderness right flank) Extremities/Musculoskelatal: normal inspection, no calf tenderness, normal capillary refill, non-tender Neurologic/Psych: no motor/sensory deficits, alert, oriented x 3 Skin: normal color, no rash Lymphatic: no adenopathy Laboratory Results Date/Time Source Procedure Growth Status 01/01/18 17:15 Urine,Catheterized Urine Culture - Preliminary Gram Negative Bacilli Gram Negative Bacilli#2 Resulted Last 24 Hours Test 01/01/18 17:15 01/01/18 20:18 01/02/18 06:36 01/02/18 07:38 Urine Color YELLOW Urine Appearance CLEAR Urine pH 7.0 Urine Specific [place] 1.010 Urine Protein NEG Urine Glucose (UA) NEG Urine Ketones NEG Urine Occult Blood NEG Urine Nitrite POS Urine Bilirubin NEG Urine Urobilinogen NEG Urine Leukocyte Esterase MODERATE Urine WBC (Auto) 5-10 /hpf Urine RBC (Auto) 0-4 /hpf Urine Hyaline Casts (Auto) 0 /lpf Urine Epithelial Cells (Auto) 5-10 /lpf Urine Bacteria (Auto) 4+ Bedside Glucose 97 mg/dl 111 mg/dl White Blood Count 7.15 K/uL Red Blood Count 3.35 M/uL Hemoglobin 9.7 g/dL Hematocrit 29.3 % Mean Corpuscular Volume 87.5 fL Mean Corpuscular Hemoglobin 29.0 pg Mean Corpuscular Hemoglobin Concent 33.1 g/dl RDW Standard Deviation 45.0 fL RDW Coefficient of Variation 14.1 % Platelet Count 207 K/uL Mean Platelet Volume 9.6 fL Prothrombin Time 11.7 SECONDS Prothromb Time International Ratio 1.1 Sodium Level 137 mmol/L Potassium Level 3.6 mmol/L Chloride Level 103 mmol/L Carbon Dioxide Level 28 mmol/L Anion Gap 6.0 mmol/L Blood Urea Nitrogen 23 mg/dl Creatinine 1.64 mg/dl Est Creatinine Clear Calc Drug Dose 37.4 ml/min Estimated GFR () 35.8 Estimated GFR (Non- 30.9 BUN/Creatinine Ratio 13.7 Random Glucose 115 mg/dl Calcium Level 7.8 mg/dl Procalcitonin < 0.05 ng/ml Thyroid Stimulating Hormone (TSH) 2.050 uIu/ml Test 01/02/18 10:29 01/02/18 11:15 01/02/18 16:50 Bedside Glucose 116 mg/dl 111 mg/dl 120 mg/dl Patient Name: DONNA CERNA Unit Number: [id number] Dictated: 01/01/181834 Transcribed: 01/01/181834 PBS Printed Date/Time: [~ rep prt dt]/[~ rep prt tm] [~ rep ct labl] - [~ rep ct ivnm] [facility] [place] [address] Dictated: 01/01/181834 Transcribed: 01/01/181834 PBS Printed Date/Time: [~ rep prt dt]/[~ rep prt tm] [~ rep ct labl] - [~ rep ct ivnm] [~ rep ct add3]] ABD/PELVIS WITHOUT FOR STONE CLINICAL HISTORY: 72 years-old Female presenting with eval for stone. TECHNIQUE: Multidetector CT of the abdomen and pelvis was performed without the use of intravenous contrast. IV contrast: None. A dose lowering technique was used consistent with the principles of ALARA (as low as reasonably achievable). COMPARISON: 08/11/2015. CT DOSE (mGy.cm): The estimated cumulative dose is 2098.84 mGy.cm. FINDINGS: Command And Control topogram: Cholecystectomy clips noted. Lung bases: Mosaic attenuation suggest small airways disease. Multichamber enlargement of the heart. Coronary artery, aortic valve, and mitral annular calcification. No pericardial or pleural effusion. Liver: Normal morphology. Normal density. Biliary: Mild biliary ductal prominence likely a reservoir effect in the post cholecystectomy state. Gallbladder surgically absent. Pancreas: Moderate parenchymal atrophy. Spleen: Normal noncontrast appearance. Adrenal glands: Normal noncontrast appearance. Kidneys and ureters: Normal noncontrast appearance. No nephrolithiasis. No hydronephrosis. Normal ureters. Focal hyperattenuation in the parenchyma of the interpolar region of the left kidney is new from prior and may represent focal calcification or a hemorrhagic or proteinaceous cysts. Bladder: Normal. Pelvic organs: Uterus surgically absent. No adnexal masses. Bowel: Normal appendix. No bowel obstruction. Small hiatal hernia. Peritoneal cavity: No free fluid or intraperitoneal gas. Lymph nodes: No gross lymphadenopathy allowing for noncontrast technique. Mildly prominent right external iliac lymph nodes measuring up to 10 mm in the short axis. Similar prominent lymph nodes noted on the left. Vasculature: Atherosclerosis of the normal caliber abdominal aorta. Abdominal wall: Nonspecific subcutaneous edema in the lumbar region. Musculoskeletal: Degenerative changes of the spine. Osteopenia. IMPRESSION: 1. No acute intra-abdominal pathology. No evidence of nephrolithiasis or hydronephrosis. No CT evidence of cystitis, which does not exclude the diagnosis. 2. Mildly prominent bilateral external iliac lymph nodes, possibly reactive. 3. Mosaic attenuation at the lung bases suggest small airways disease. 4. Cardiomegaly. Electronically signed by: Niraj Iniguez M.D. 01/01/2018 6:41 PM Dictated Date/Time: 01/01/2018 6:35 PM The status of this report is Signed. Draft = Not yet reviewed or approved by Radiologist. Signed = Reviewed and approved by Radiologist. <AttendingPhy></AttendingPhy> <FamilyPhy>Angela Marin M.D.</FamilyPhy> < PrimaryPhy>Angela Marin M.D.</PrimaryPhy> <UnitNumber>[id number]</ UnitNumber> <VisitNumber>[id number]</VisitNumber> <PatientName>DONNA CERNA</PatientName> <DateOfBirth>1945</DateOfBirth> <Location>[facility]</ Location> <ServiceDate>01/01/18</ServiceDate> <MNE>ESINDI</MNE> <OrderingPhy> Arron Meraz M.D.</OrderingPhy> <OrderingPhyMNE>f rep ord dr albrecht</ OrderingPhyMNE> <DictatingPhyMNE>f rep dict dr albrecht</DictatingPhyMNE> <CCListMNE> f rep ct mne</CCListMNE> <AdmittingPhyMNE>f pt admit dr albrecht</AdmittingPhyMNE> < AttendingPhyMNE>f pt attend dr albrecht</AttendingPhyMNE> <ConsultingPhyMNE>f pt consult dr albrecht</ConsultingPhyMNE> <FamilyPhyMNE>f pt fam dr albrecht</FamilyPhyMNE> <OtherPhyMNE>f pt other dr albrecht</OtherPhyMNE> < PrimaryPhyMNE>f pt prim care dr albrecht</PrimaryPhyMNE> <ReferringPhyMNE>f pt referring dr albrecht</ReferringPhyMNE> Assessment & Plan 72-year-old female with diabetes, hypertension, chronic lower extremity lymphedema, who presents with severe back and right flank pain, without evidence of pyelonephritis or significant urinary tract infection on CT scan, but abnormal urinalysis and positive urine culture for gram-negative bacilli. Current treatment with ertapenem appropriate pending final identification sensitivities of gram-negative isolate. Will adjust once available. Will follow.
[2018-01-02] MEDS: CYCLOBENZAPRINE HCL 5 MG TAB PO PRN (17:37)
[2018-01-02] MEDS ORDERED: ERTAPENEM IV 1 GM in SODIUM CHLOR 0.9% AD-VAN 50ML 50 ML IV SCH (20:00)
[2018-01-02] MEDS: FENOFIBRATE 145 MG TAB PO SCH (21:01)
[2018-01-02] MEDS: CLONAZEPAM 1 MG TAB PO SCH (21:01)
[2018-01-02] MEDS: PANTOprazole SOD 40 MG TAB PO SCH (21:02)
[2018-01-02] MEDS: ROSUVASTATIN CALCIUM 20 MG TAB PO SCH (21:45)
[2018-01-03] VITALS (7 sets, daily range): BP systolic 135–171; BP diastolic 60–81; PULSE 46–67; TEMP 36.3–37.1; O2SAT 94–98
--- NOTE | 2018-01-03 07:07 | DIAGNOSTIC IMAGING REPORT ---
BILATERAL LOWER EXTREMITY VENOUS DOPPLER HISTORY: Leg swelling. COMPARISON STUDY: None. FINDINGS: Suboptimal study due to the patient's large body habitus. No definite DVT identified. Of note, the bilateral popliteal and calf veins are suboptimally assessed. IMPRESSION: No definite DVT within the visualized right or left lower extremity. Electronically signed by: Osmar Bonilla M.D. 01/03/2018 7:06 AM Dictated Date/Time: 01/03/2018 7:05 AM
[2018-01-03] MEDS: OXYCODONE/ACETAMINOPHEN 5-325 TAB PO PRN ×2 (07:41→21:19)
[2018-01-03 07:43] LABS: CALCIUM 8.3 mg/dl (8.5-10.1); CREATININE 1.87 mg/dl (0.60-1.20)
[2018-01-03] MEDS: MICONAZOLE NITRATE POWDER 43 GM EXT PRN (07:44)
[2018-01-03 07:55] LABS: HEMOGLOBIN A1C 6.8 % (4.5-5.6)
--- NOTE | 2018-01-03 08:36 | ECHOCARDIOGRAM REPORT ---
*NOTICE TO RECEIVING [employer] This information is strictly Confidential and protected under [place] law. [place] law prohibits you from making any further disclosure of this information unless further disclosure is expressly permitted by the written consent of the person to whom it pertains or is authorized by law. A general authorization for the release of medical or other information is not sufficient for this purpose. Hospital accepts no responsibility if the information is made available to any other person, INCLUDING THE PATIENT. Interpretation Summary * Name: DONNA CERNA Study Date: 01/02/2018 01:23 PM BP: 128/76 mmHg * Patient Location: .[id number]\S\W256\S\2 HR: 48 * : 1945 (M/d/yyyy) Gender: Female Height: 59 in * Age: 72 yrs Ethnicity: CA Weight: 278 lb * Ordering Physician: Karson Heard * Referring Physician: Self, Referred * Performed By: Marge Bullock [facility] * * Reason For Study: CARDIOMEGALY * BSA: 2.1 m2 * -- Conclusions -- * Compared to previous study of 08/30/16: small loculated anterior pericardial effusion without hemodynamic significance is now present. * Normal LV chamber size with moderate concentric LVH. * Normal LV systolic function without regional wall motion abnormality, EF 60-65%. * Grade II diastolic dysfunction. * Aortic valve sclerosis mild, without significant aortic valvular stenosis. * There is severe mitral annular calcification. Calcified mitral apparatus causing mitral stenosis. There is mild mitral regurgitation. There is mild mitral stenosis. * Small loculated anterior pericardial effusion without hemodynamic significance Procedure Details * A complete two-dimensional transthoracic echocardiogram was performed (2D, M-mode, Doppler and color flow Doppler). Left Ventricle * The left ventricle is grossly normal size. * There is moderate concentric left ventricular hypertrophy. * Left ventricular systolic function is normal. * Left ventricular systolic function is low normal. * Ejection Fraction = 60-65%. * The left ventricular wall motion is normal. Right Ventricle * The right ventricular cavity size is normal (basal dimension <4.2 cm in right ventricular apical 4-chamber view). * The right ventricular systolic function is normal as assessed by tricuspid annular plane systolic excursion (TAPSE) (normal >1.5 cm). Atria * The left atrial size is normal. * Right atrial size is normal. * No ASD detected; PFO is not assessed. Mitral Valve * There is severe mitral annular calcification. * Calcified mitral apparatus causing mitral stenosis. * There is mild mitral stenosis. * There is mild mitral regurgitation. Tricuspid Valve * The tricuspid valve anatomy is normal. * No tricuspid regurgitation. Aortic Valve * Aortic valve sclerosis mild, without significant aortic valvular stenosis. * Moderate focal calcification of the noncoronary cusp. * There is no significant aortic regurgitation. Pulmonic Valve * The pulmonary valve is not well seen, but the Doppler examination is normal without significant regurgitation or stenosis. Great Vessels * The aortic root is normal size. Pericardium/Pleural * Small pericardial effusion. * A loculated pericardial effusion is noted. * There are no echocardiographic indications of cardiac tamponade. Left Ventricular Diastolic Function * Diastolic dysfunction, Grade II (pseudonormalization pattern). MMode 2D Measurements and Calculations IVSd 1.4 cm IVSs 1.7 cm LVIDd 4.5 cm LVIDs 2.8 cm LVPWd 1.2 cm LVPWs 1.5 cm IVS/LVPW 1.1 FS 38.0 % EDV(Teich) 92.3 ml ESV(Teich) 29.2 ml EF(Teich) 68.4 % EDV(cubed) 91.0 ml ESV(cubed) 21.6 ml EF(cubed) 76.2 % % IVS thick 23.5 % % LVPW thick 28.5 % LV mass(C)d 215.3 grams LV mass(C)dI 101.5 grams/m\S\2 LV mass(C)s 161.2 grams LV mass(C)sI 76.0 grams/m\S\2 SV(Teich) 63.1 ml SI(Teich) 29.8 ml/m\S\2 SV(cubed) 69.3 ml SI(cubed) 32.7 ml/m\S\2 Ao root diam 2.0 cm Ao root area 3.2 cm\S\2 LA dimension 3.5 cm LA/Ao 1.7 LVOT diam 1.9 cm LVOT area 2.8 cm\S\2 LVAd ap4 36.3 cm\S\2 LVLd ap4 8.4 cm EDV(MOD-sp4) 127.6 ml EDV(sp4-el) 133.6 ml LVAs ap4 23.6 cm\S\2 LVLs ap4 7.2 cm ESV(MOD-sp4) 62.8 ml ESV(sp4-el) 65.3 ml EF(MOD-sp4) 50.8 % EF(sp4-el) 51.1 % LVAd ap2 37.6 cm\S\2 LVLd ap2 8.1 cm EDV(MOD-sp2) 140.4 ml EDV(sp2-el) 147.9 ml LVAs ap2 25.5 cm\S\2 LVLs ap2 6.9 cm ESV(MOD-sp2) 76.0 ml ESV(sp2-el) 80.4 ml EF(MOD-sp2) 45.8 % EF(sp2-el) 45.6 % LVLd %diff -3.36 % EDV(MOD-bp) 135.1 ml LVLs %diff -5.01 % ESV(MOD-bp) 70.9 ml EF(MOD-bp) 47.5 % SV(MOD-sp4) 64.8 ml SI(MOD-sp4) 30.6 ml/m\S\2 SV(MOD-sp2) 64.3 ml SI(MOD-sp2) 30.3 ml/m\S\2 SV(MOD-bp) 64.2 ml SI(MOD-bp) 30.3 ml/m\S\2 SV(sp4-el) 68.3 ml SI(sp4-el) 32.2 ml/m\S\2 SV(sp2-el) 67.5 ml SI(sp2-el) 31.8 ml/m\S\2 Doppler Measurements and Calculations MV E max fish 136.4 cm/sec MV A max fish 128.3 cm/sec MV E/A 1.1 MV P1/2t max fish 142.3 cm/sec MV P1/2t 124.3 msec MVA(P1/2t) 1.8 cm\S\2 MV dec slope 335.3 cm/sec\S\2 MV dec time 0.29 sec Ao V2 max 102.7 cm/sec Ao max PG 4.2 mmHg Ao max PG (full) -0.16 mmHg SOFIA(V,A) 2.8 cm\S\2 SOFIA(V,D) 2.8 cm\S\2 LV V1 max PG 4.4 mmHg LV V1 max 104.6 cm/sec MR max fish 548.4 cm/sec MR max PG 120.3 mmHg PA V2 max 95.8 cm/sec PA max PG 3.7 mmHg TR max fish 278.9 cm/sec
[2018-01-03] MEDS ORDERED: ROCEPHIN: PHARMACY CONSULT IN PROGRESS PRN (08:45)
[2018-01-03] MEDS: GABAPENTIN 300 MG CAP PO SCH ×3 (08:58→21:06)
[2018-01-03] MEDS: SERTRALINE HCL 50 MG TAB PO SCH (08:58)
[2018-01-03] MEDS: ASPIRIN 325 MG ECTAB PO SCH (08:59)
[2018-01-03] MEDS: CHOLECALCIFEROL 1000 INTER.UNIT TAB PO SCH (08:59)
[2018-01-03] MEDS: SENNA 8.6 MG TAB PO SCH (08:59)
[2018-01-03] MEDS: RANITIDINE HCL 150 MG TAB PO SCH ×2 (09:00→21:07)
[2018-01-03] MEDS: LIDODERM (LIDOCAINE) PATCH 5% TD SCH (09:00)
[2018-01-03] MEDS ORDERED: METOLAZONE 5 MG TAB PO SCH (09:00)
[2018-01-03] MEDS: LACTOBACILLUS ACIDOPHILUS (FLORANEX) TAB PO SCH ×3 (09:00→21:05)
[2018-01-03] MEDS: POLYETHYLENE (MIRALAX) 17 GM PACK PO SCH (09:00)
[2018-01-03] MEDS: FLUTICASONE PROPIONATE NA SPR 16 GM BTL NAE SCH (09:02)
[2018-01-03] MEDS: INSULIN ASPART 100 UNITS/ML 3 ML PEN SC SCH ×4 (09:06→21:00)
[2018-01-03] MEDS: INSULIN GLARGINE SOLOSTAR 100 UNITS/ML 3 ML PEN SQ SCH ×2 (09:07→21:17)
[2018-01-03] MEDS: HEPARIN SOD 5000 UNIT/0.5 ML CARP SQ SCH ×2 (09:07→21:00)
[2018-01-03] MEDS: CEFTRIAXONE SOD INJ 2000 MG in DEXTROSE 5% 50ML IV SCH (09:14)
--- NOTE | 2018-01-03 14:20 | Cardiology Follow-Up ---
Subjective Subjective Date of Service: January 03, 2018. Pt evaluation today including: conversation w/ patient, physical exam, chart review, lab review, review of studies, review of inpatient medication list Additional Details: Pt seen and examined oob in chair, states that she feels well. Denies cp, sob, palpitations, lightheadedness or dizziness. Problem List Medical Problems: (1) MAGGIE (acute kidney injury) Status: Acute (2) C. difficile enteritis Status: Acute (3) Calcaneal fracture Status: Acute (4) Elevated troponin Status: Acute (5) Fracture of humeral head, closed Status: Acute (6) Leukocytosis Status: Acute (7) Right flank pain Status: Acute (8) UTI (urinary tract infection) Status: Acute Review of Systems Constitutional: + weakness, + fatigue Cardiac: + edema Abdomen: + diarrhea Musculoskeletal: + joint pain, + muscle pain, + problem reported Neurologic: + see HPI, + memory loss, + weakness, + balance problems Endo: + fatigue Objective Vital Signs Last Vital Signs Documentation Date Time Temp Pulse Resp B/P (MAP) Pulse Ox O2 Delivery O2 Flow Rate FiO2 01/03/18 12:00 Room Air 01/03/18 11:45 36.5 46 20 161/77 (105) 95 142/81 (101) Physical Exam: General Appearance: WD/WN, no apparent distress, + obese Eyes: bilateral eyes normal inspection, bilateral eyes PERRL, bilateral eyes EOMI ENT: normal ENT inspection, hearing grossly normal, pharynx normal Neck: supple, no adenopathy, thyroid normal, no JVD, no carotid bruits, trachea midline Respiratory/Chest: chest non-tender, lungs clear, normal breath sounds, no respiratory distress Cardiovascular: regular rate, rhythm, no gallop, no JVD, no murmur Abdomen: normal bowel sounds, non tender, soft, no organomegaly Extremities: non-tender, no calf tenderness, + pertinent finding (B/L LE nonpitting edema) Neurologic/Psychiatric: color checker II-XII nml as tested, no motor/sensory deficits, alert, normal mood/affect, oriented x 3 Skin: normal color, warm/dry, no rash Lymphatic: no adenopathy Assessment and Plan 1. bradycardia asymptomatic, incidentally discovered likely due to polypharmacy agents held, HR improving somewhat but bp now trending upwards ideally would like to wean off clonidine if possible will restart amlodipine today, LE appears to be due to lymphedema/obesity and not fluid 2. HTN will follow with addition of amlodipine 5mg daily can increase to a total of 10mg daily if needed also could restart hydralazine if necessary follows with nephrology as outpatient, deemed not appropriate for WIN/ARB in past
[2018-01-03] MEDS ORDERED: AMLODIPINE BESYLATE 5 MG TAB PO ONE (14:45)
[2018-01-03] MEDS: PANTOprazole SOD 40 MG TAB PO SCH (21:07)
[2018-01-03] MEDS: ROSUVASTATIN CALCIUM 20 MG TAB PO SCH (21:08)
[2018-01-03] MEDS: FENOFIBRATE 145 MG TAB PO SCH (21:08)
[2018-01-03] MEDS: CLONAZEPAM 1 MG TAB PO SCH (21:19)
--- NOTE | 2018-01-03 21:54 | Infectious Disease Progress Nt ---
Progress Note Date of Service January 03, 2018. Subjective Pt evaluation today including: conversation w/ patient, physical exam, chart review, lab review, review of studies, conversation w/ construction safety consultant, review of inpatient medication list Still with some right flank pain, otherwise no new complaints. Remains afebrile. Tolerating antibiotic without apparent difficulty. All Other Systems: Reviewed and Negative Medications Current Inpatient Medications Medications (Trade) Dose Ordered Sig/Hansel Route Start Time Stop Time Status Last Admin Dose Admin Aspirin (Ecotrin Tab) 325 mg QAM PO 01/02/18 09:00 02/01/18 08:59 01/03/18 08:59 325 MG Cholecalciferol (Vitamin D Tab) 1,000 inter.unit DAILY PO 01/02/18 09:00 02/01/18 08:59 01/03/18 08:59 1,000 INTER.UNIT Clonazepam (Klonopin Tab) 1 mg HS PO 01/01/18 21:00 01/31/18 20:59 01/03/18 21:19 1 MG Fenofibrate (Tricor Tab) 145 mg QPM PO 01/01/18 21:00 01/31/18 20:59 01/03/18 21:08 145 MG Fluticasone Propionate (Flonase Nasal [place]) 1 sprays DAILY ANSELMO 01/02/18 09:00 02/01/18 08:59 01/03/18 09:02 1 SPRAYS Gabapentin (Neurontin Cap) 300 mg DAILY@1400 PO 01/02/18 14:00 02/01/18 13:59 01/03/18 13:52 300 MG Gabapentin (Neurontin Cap) 600 mg BID PO 01/01/18 21:00 01/31/18 20:59 01/03/18 21:06 600 MG Insulin Glargine (Lantus Solostar Pen) 20 units BID SQ 01/01/18 21:00 01/31/18 20:59 01/03/18 21:17 20 UNITS Lactobacillus Acidophilus (Floranex Tab) 1 tab TIDM PO 01/02/18 08:00 02/01/18 07:59 01/03/18 21:05 1 TAB Nitroglycerin (Nitrostat Tab) 0.4 mg PRN UT 01/01/18 21:00 01/31/18 20:59 Pantoprazole Sodium (Protonix Tab) 40 mg QPM PO 01/01/18 21:00 01/31/18 20:59 01/03/18 21:07 40 MG Ranitidine HCl (zANTac TAB) 150 mg BID PO 01/01/18 21:00 01/31/18 20:59 01/03/18 21:07 150 MG Rosuvastatin Calcium (Crestor Tab) 40 mg QPM PO 01/01/18 21:00 01/31/18 20:59 01/03/18 21:08 40 MG Sertraline HCl (Zoloft Tab) 50 mg QAM PO 01/02/18 09:00 02/01/18 08:59 01/03/18 08:58 50 MG Topiramate (Topamax Tab) 25 mg BID PO 01/01/18 21:00 01/31/18 20:59 Future Hold 01/02/18 08:01 25 MG Acetaminophen (Tylenol Tab) 650 mg Q4H PRN PO 01/01/18 21:15 01/31/18 21:14 Al Hydrox/Mg Hydrox/Simethicone (Maalox Max Susp) 15 ml Q4H PRN PO 01/01/18 21:15 01/31/18 21:14 Magnesium Hydroxide (Milk Of Magnesia Susp) 30 ml Q6H PRN PO 01/01/18 21:15 01/31/18 21:14 Ondansetron HCl (Zofran Inj) 4 mg Q6H PRN IV 01/01/18 21:15 01/31/18 21:14 Heparin Sodium (Porcine) (Heparin Sq 5000 Unit/0.5ml) 5,000 unit Q12H SQ 01/02/18 09:00 02/01/18 08:59 01/03/18 09:07 5,000 UNIT Insulin Aspart (novoLOG ASPART) SLIDING SCALE If C... ACHS SC 01/02/18 06:30 02/01/18 06:29 01/03/18 18:21 2 UNITS Glucose (Glucose 40% Gel) 15-30 GRAMS 15 GRAMS... UD PRN PO 01/01/18 21:15 01/31/18 21:14 Glucose (Glucose Chew Tab) 4-8 Tablets 4 Tabl... UD PRN PO 01/01/18 21:15 01/31/18 21:14 Dextrose (Dextrose 50% 50ML Syringe) 25-50ML 25ML FOR ... UD PRN IV 01/01/18 21:15 01/31/18 21:14 Glucagon (Glucagon Inj) 1 mg UD PRN SQ 01/01/18 21:15 01/31/18 21:14 Carbohydrates (Carbohydrates For Hypoglycemia) 15-30 GRAMS 15 grams if BSG 54-69... UD PRN PO 01/01/18 21:15 01/31/18 21:14 Oxycodone/ Acetaminophen (Percocet 5-325mg Tab) 2 tab Q12 PRN PO 01/01/18 23:00 01/15/18 20:59 01/03/18 21:19 2 TAB Senna (Senokot Tab) 17.2 mg QAM PO 01/02/18 09:00 02/01/18 08:59 01/03/18 08:59 17.2 MG Polyethylene (Miralax Powder Packet) 17 gm DAILY PO 01/02/18 09:00 01/31/18 21:14 01/03/18 09:00 17 GM Clonidine HCl (Catapres Tab) 0.2 mg TID PO 01/02/18 09:00 01/31/18 20:59 Future Hold 01/02/18 08:01 0.2 MG Lidocaine (Lidoderm Patch 5%) 1 patch QAM TD 01/03/18 09:00 02/02/18 08:59 Miscellaneous (Remove Lidoderm Patch) 1 ea DAILY@21 N/A 01/02/18 21:00 02/01/18 20:59 01/03/18 21:08 1 EA Cyclobenzaprine HCl (Flexeril Tab) 5 mg BID PRN PO 01/02/18 11:00 02/01/18 10:59 01/02/18 17:37 5 MG Miconazole Nitrate (Desenex Powder) 1 appln PRN PRN EXT 01/02/18 14:30 02/01/18 14:29 01/03/18 07:44 1 APPLN Miscellaneous Information 1 ea UD PRN N/A 01/03/18 08:45 02/02/18 08:44 Ceftriaxone Sodium 2000 mg/ Dextrose 70 ml @ 140 mls/hr Q24H IV 01/03/18 09:00 01/13/18 08:59 01/03/18 09:14 140 MLS/HR Amlodipine Besylate (Norvasc Tab) 5 mg QAM PO 01/04/18 09:00 02/03/18 08:59 Objective Vital Signs Date Time Temp Pulse Resp B/P (MAP) Pulse Ox O2 Delivery O2 Flow Rate FiO2 01/03/18 20:00 Room Air 01/03/18 19:24 36.5 56 20 167/78 (107) 94 Room Air 01/03/18 16:00 Room Air 01/03/18 15:49 36.3 48 20 140/77 (98) 98 Room Air 01/03/18 12:00 Room Air 01/03/18 11:45 36.5 46 20 161/77 (105) 95 Room Air 142/81 (101) 01/03/18 10:44 67 97 01/03/18 08:00 Room Air 01/03/18 07:25 37.1 52 20 167/81 (109) 95 Room Air 151/80 (103) 01/03/18 04:48 36.7 61 18 148/60 (89) 94 Room Air 01/03/18 04:00 Room Air 01/03/18 00:00 Room Air 01/02/18 23:13 36.5 52 20 140/63 (88) 92 Room Air Physical Exam General Appearance: WD/WN, no apparent distress, + obese Eyes: normal inspection, EOMI, sclerae normal ENT: normal ENT inspection, pharynx normal Neck: supple, no adenopathy, thyroid normal, trachea midline Respiratory/Chest: chest non-tender, lungs clear, normal breath sounds, no respiratory distress Cardiovascular: regular rate, rhythm, no gallop, no murmur Abdomen: normal bowel sounds, non tender, soft, no organomegaly Extremities: non-tender, no calf tenderness, + swelling Neurologic/Psychiatric: alert, oriented x 3 Skin: normal color, warm/dry, no rash Lymphatic: no adenopathy Laboratory Results RUN DATE: 01/03/18 [facility] PAGE 1 RUN TIME: 1030 Specimen Inquiry PATIENT: DONNA CERNA LOC: [id number] U # : [id number] AGE/SX: 72/F ROOM: [facility] REG : 01/01/[address]: Solo Lutz MD : [id number] BED: 2 DIS : STATUS: ADM IN TLOC: SPEC #: [id number] POPPY: 01/01/18 STATUS: COMP REQ #: [id number] RECD: 01/01/[address]: Arron Meraz M.D. SOURCE: URINE CATH ENTR: 01/01/[address]: Angela Marin M.D. SPDESC: ORDERED: CULTURE UR CATH COMMENTS: Comments to History Faculty Member SAME TIME DIFFERENT SITES Has Specimen Been Obtained/Collected? Y Procedure Result Verified Site URINE CULTURE Final 01/03/18-1030 Organism 1 ESCHERICHIA COLI COLONY COUNT >100,000 CFU/ml SENS SENSITIVITY TO FOLLOW Organism 2 KLEBSIELLA PNEUMONIAE COLONY COUNT 30,000 CFU/ml SENS SENSITIVITIES DEPENDENT ON FURTHER IDENTIFICATION E COLI JUAN PNEUMO M.I.C. RX M.I.C. RX --------- ------ --------- ------ TRIMET/SULFA >2/38 R <=2/38 S AMPICILLIN >16 R AMPICILLIN/SUL >16/8 R >16/8 R CEFAZOLIN >16 R <=8 S CEFOXITIN 16 I <=8 S CEFOTAXIME <=2 S <=2 S CEFTRIAXONE <=1 S <=1 S CEFEPIME <=4 S <=4 S CEFUROXIME 16 I 8 S IMIPENEM <=1 S <=1 S GENTAMICIN >8 R <=4 S TOBRAMYCIN 8 I <=4 S AMIKACIN <=16 S <=16 S CIPROFLOXACIN >2 R <=1 S LEVOFLOXACIN >4 R <=2 S ERTAPENEM <=1 S <=1 S NITROFURANTOIN <=32 S 64 I PIP/TAZO 64 I <=16 S 1. ESCHERICHIA COLI Target Route Dose RX AB Cost M.I.C. IQ ------ ----- ------ -- ------ -------- - ------ TRIMET/SULFA R >2/38 AMPICILLIN R >16 AMPICILLIN/SUL R >16/8 CEFAZOLIN R >16 CEFOXITIN I 16 CEFOTAXIME S <=2 CEFTRIAXONE S <=1 CONTINUED ON NEXT PAGE RUN DATE: 01/03/18 [facility] PAGE 2 RUN TIME: 1030 Specimen Inquiry SPEC: [id number] PATIENT: DONNA CERNA [id number] ( Continued) Procedure Result Verified Site URINE CULTURE Final (continued) 01/03/18-1030 1. ESCHERICHIA COLI (continued) Target Route Dose RX AB Cost M.I.C. IQ ------ ----- ------ -- ------ -------- - ------ CEFEPIME S <=4 CEFUROXIME I 16 IMIPENEM S <=1 GENTAMICIN R >8 TOBRAMYCIN I 8 AMIKACIN S <=16 CIPROFLOXACIN R >2 LEVOFLOXACIN R >4 ERTAPENEM S <=1 NITROFURANTOIN S <=32 PIP/TAZO I 64 2. KLEBSIELLA PNEUMONIAE Target Route Dose RX AB Cost M.I.C. IQ ------ ----- ------ -- ------ -------- - ------ TRIMET/SULFA S <=2/38 AMPICILLIN/SUL R >16/8 CEFAZOLIN S <=8 CEFOXITIN S <=8 CEFOTAXIME S <=2 CEFTRIAXONE S <=1 CEFEPIME S <=4 CEFUROXIME S 8 IMIPENEM S <=1 GENTAMICIN S <=4 TOBRAMYCIN S <=4 AMIKACIN S <=16 CIPROFLOXACIN S <=1 LEVOFLOXACIN S <=2 ERTAPENEM S <=1 NITROFURANTOIN I 64 PIP/TAZO S <=16 S = SENSITIVE I = INTERMEDIATE R = RESISTANT END OF REPORT Last 24 Hours Test 01/03/18 07:02 01/03/18 07:24 01/03/18 11:29 01/03/18 16:31 Sodium Level 139 mmol/L Potassium Level 4.0 mmol/L Chloride Level 105 mmol/L Carbon Dioxide Level 26 mmol/L Anion Gap 8.0 mmol/L Blood Urea Nitrogen 22 mg/dl Creatinine 1.87 mg/dl Est Creatinine Clear Calc Drug Dose 33.1 ml/min Estimated GFR () 30.6 Estimated GFR (Non- 26.4 BUN/Creatinine Ratio 11.8 Random Glucose 99 mg/dl Calcium Level 8.3 mg/dl Bedside Glucose 115 mg/dl 144 mg/dl 100 mg/dl Test 01/03/18 20:21 Bedside Glucose 80 mg/dl Assessment and Plan 72-year-old female with diabetes, hypertension, chronic lower extremity lymphedema, who presents with severe back and right flank pain, without evidence of pyelonephritis or significant urinary tract infection on CT scan, but abnormal urinalysis and positive urine culture for line Klebsiella. Patient to be treated with IV ceftriaxone for now, hopefully can transition to oral antibiotics if remains afebrile.
[2018-01-03] MEDS: CYCLOBENZAPRINE HCL 5 MG TAB PO PRN (23:54)
[2018-01-04] VITALS (12 sets, daily range): BP systolic 128–192; BP diastolic 67–91; PULSE 46–67; TEMP 36.4–36.9; O2SAT 93–98
--- NOTE | 2018-01-04 06:41 | Progress Note ---
Medicine Progress Note Date & Time of Visit: January 04, 2018 at 06:33. Subjective seen resting in bedside chair comfortable states she feels ok overall less right flank pain no chest pain, dyspnea, dizziness no other symptoms Objective Last 8 Hrs Date Time Temp Pulse Resp B/P (MAP) Pulse Ox O2 Delivery O2 Flow Rate FiO2 01/04/18 04:17 36.7 56 16 146/67 (93) 93 Room Air 01/04/18 04:10 Room Air 01/04/18 00:01 Room Air 01/03/18 23:15 36.8 54 20 135/80 (98) 96 Room Air Physical Exam: General- oriented x 3, not in distress, speaking in sentences no accessory muscle use, morbidly obese Head- atraumatic Eyes- anicteric ENT- oropharynx clear Neck- supple, no JVD Lungs- clear breath sounds bilaterally no rales or wheezes Heart-bradycardic, regular rhythm, no murmurs Abdomen- normal bowel sounds, obese abdomen but nondistended, soft, nontender Back--small area of hematoma at the right lumbar paraspinal region, mild warmth mild, moderate tenderness to palpation, extending to the flank area extending to the flank area Extremities-grade 1 leg edema with dryness and mild erythema-chronic as per patient, no calf tenderness; peripheral pulses intact Neuro- alert, oriented x 3; no gross focal neurologic deficits Skin- warm & dry Laboratory Results: Last 24 Hours Test 01/03/18 07:02 01/03/18 07:24 01/03/18 11:29 01/03/18 16:31 Sodium Level 139 mmol/L Potassium Level 4.0 mmol/L Chloride Level 105 mmol/L Carbon Dioxide Level 26 mmol/L Anion Gap 8.0 mmol/L Blood Urea Nitrogen 22 mg/dl Creatinine 1.87 mg/dl Est Creatinine Clear Calc Drug Dose 33.1 ml/min Estimated GFR () 30.6 Estimated GFR (Non- 26.4 BUN/Creatinine Ratio 11.8 Random Glucose 99 mg/dl Calcium Level 8.3 mg/dl Bedside Glucose 115 mg/dl 144 mg/dl 100 mg/dl Test 01/03/18 20:21 01/03/18 22:28 01/04/18 04:44 Bedside Glucose 80 mg/dl 77 mg/dl Assessment & Plan 72-year-old pleasant female with a history of diabetes, hypertension, CKD stage III, chronic hyponatremia, recurrent UTIs Presenting with right flank pain. RIGHT FLANK PAIN LIKELY MUSCULOSKELETAL PAIN, CT abdomen pelvis shows no evidence of stone/no pyelonephritis Patient reports of chronic low back pain secondary to lumbar degenerative disease X-ray of lumbar spine 1. No acute fracture or subluxation. 2. Dextroscoliosis with multilevel degenerative changes as above. Pain is reproducible with palpation and movement ordered Lidoderm patch and Flexeril Patient uses oxycodone as needed at home continue that PT OT consult -- pain improved HISTORY OF COMPLICATED UTI/ESBL E. COLI -Urine culture:E coli and Klebsiella Continue ertapenem day #3 infectious disease service consulted SINUS BRADYCARDIA Asymptomatic although heart rate running in the 40s marginal blood pressure from medications? Clonidine added on admission--> STOP usually Carvedilol--> held for now usual Amlodipine resumed slowly resume/titrate usual hydralazine Echo ordered Cardiology consulted HYPERTENSION: Blood pressure elevated on admission the next day, 01/02/18, patient became bradycardic with marginal BP mgt noted above TYPE 2 DIABETES: Continue basal Lantus BILATERAL LOWER EXTREMITY, CHRONIC LYMPHEDEMA: Doppler US lower leg: negative MORBID OBESITY BMI more than 56 Counseling provided for weight reduction/exercise/diet modification DIABETIC NEUROPATHY Continue gabapentin DEPRESSION: Continue SSRI AK I ON CKD STAGE III crea at baseline: 1.5 on admission 1.8 Possible secondary to dehydration/UTI held Lasix given IV fluids monitor HYPONATREMIA Chronic IV fluids with normal saline 75 mL/h/1 L x 1 resolved CODE STATUS: Full code DVT prophylaxis: Moderate to high risk Subcu heparin DISPOSITION: PT OT evaluation requested prior to discharge Social service consulted for discharge plan Current Inpatient Medications: Current Inpatient Medications Medications (Trade) Dose Ordered Sig/Hansel Route Start Time Stop Time Status Last Admin Dose Admin Aspirin (Ecotrin Tab) 325 mg QAM PO 01/02/18 09:00 02/01/18 08:59 01/03/18 08:59 325 MG Cholecalciferol (Vitamin D Tab) 1,000 inter.unit DAILY PO 01/02/18 09:00 02/01/18 08:59 01/03/18 08:59 1,000 INTER.UNIT Clonazepam (Klonopin Tab) 1 mg HS PO 01/01/18 21:00 01/31/18 20:59 01/03/18 21:19 1 MG Fenofibrate (Tricor Tab) 145 mg QPM PO 01/01/18 21:00 01/31/18 20:59 01/03/18 21:08 145 MG Fluticasone Propionate (Flonase Nasal [place]) 1 sprays DAILY ANSELMO 01/02/18 09:00 02/01/18 08:59 01/03/18 09:02 1 SPRAYS Gabapentin (Neurontin Cap) 300 mg DAILY@1400 PO 01/02/18 14:00 02/01/18 13:59 01/03/18 13:52 300 MG Gabapentin (Neurontin Cap) 600 mg BID PO 01/01/18 21:00 01/31/18 20:59 01/03/18 21:06 600 MG Insulin Glargine (Lantus Solostar Pen) 20 units BID SQ 01/01/18 21:00 01/31/18 20:59 01/03/18 21:17 20 UNITS Lactobacillus Acidophilus (Floranex Tab) 1 tab TIDM PO 01/02/18 08:00 02/01/18 07:59 01/03/18 21:05 1 TAB Nitroglycerin (Nitrostat Tab) 0.4 mg PRN UT 01/01/18 21:00 01/31/18 20:59 Pantoprazole Sodium (Protonix Tab) 40 mg QPM PO 01/01/18 21:00 01/31/18 20:59 01/03/18 21:07 40 MG Ranitidine HCl (zANTac TAB) 150 mg BID PO 01/01/18 21:00 01/31/18 20:59 01/03/18 21:07 150 MG Rosuvastatin Calcium (Crestor Tab) 40 mg QPM PO 01/01/18 21:00 01/31/18 20:59 01/03/18 21:08 40 MG Sertraline HCl (Zoloft Tab) 50 mg QAM PO 01/02/18 09:00 02/01/18 08:59 01/03/18 08:58 50 MG Topiramate (Topamax Tab) 25 mg BID PO 01/01/18 21:00 01/31/18 20:59 Future Hold 01/02/18 08:01 25 MG Acetaminophen (Tylenol Tab) 650 mg Q4H PRN PO 01/01/18 21:15 01/31/18 21:14 Al Hydrox/Mg Hydrox/Simethicone (Maalox Max Susp) 15 ml Q4H PRN PO 01/01/18 21:15 01/31/18 21:14 Magnesium Hydroxide (Milk Of Magnesia Susp) 30 ml Q6H PRN PO 01/01/18 21:15 01/31/18 21:14 Ondansetron HCl (Zofran Inj) 4 mg Q6H PRN IV 01/01/18 21:15 01/31/18 21:14 Heparin Sodium (Porcine) (Heparin Sq 5000 Unit/0.5ml) 5,000 unit Q12H SQ 01/02/18 09:00 02/01/18 08:59 01/03/18 09:07 5,000 UNIT Insulin Aspart (novoLOG ASPART) SLIDING SCALE If C... ACHS SC 01/02/18 06:30 02/01/18 06:29 01/03/18 18:21 2 UNITS Glucose (Glucose 40% Gel) 15-30 GRAMS 15 GRAMS... UD PRN PO 01/01/18 21:15 01/31/18 21:14 Glucose (Glucose Chew Tab) 4-8 Tablets 4 Tabl... UD PRN PO 01/01/18 21:15 01/31/18 21:14 Dextrose (Dextrose 50% 50ML Syringe) 25-50ML 25ML FOR ... UD PRN IV 01/01/18 21:15 01/31/18 21:14 Glucagon (Glucagon Inj) 1 mg UD PRN SQ 01/01/18 21:15 01/31/18 21:14 Carbohydrates (Carbohydrates For Hypoglycemia) 15-30 GRAMS 15 grams if BSG 54-69... UD PRN PO 01/01/18 21:15 01/31/18 21:14 Oxycodone/ Acetaminophen (Percocet 5-325mg Tab) 2 tab Q12 PRN PO 01/01/18 23:00 01/15/18 20:59 01/03/18 21:19 2 TAB Senna (Senokot Tab) 17.2 mg QAM PO 01/02/18 09:00 02/01/18 08:59 01/03/18 08:59 17.2 MG Polyethylene (Miralax Powder Packet) 17 gm DAILY PO 01/02/18 09:00 01/31/18 21:14 01/03/18 09:00 17 GM Clonidine HCl (Catapres Tab) 0.2 mg TID PO 01/02/18 09:00 01/31/18 20:59 Future Hold 01/02/18 08:01 0.2 MG Lidocaine (Lidoderm Patch 5%) 1 patch QAM TD 01/03/18 09:00 02/02/18 08:59 Miscellaneous (Remove Lidoderm Patch) 1 ea DAILY@21 N/A 01/02/18 21:00 02/01/18 20:59 01/03/18 21:08 1 EA Cyclobenzaprine HCl (Flexeril Tab) 5 mg BID PRN PO 01/02/18 11:00 02/01/18 10:59 01/03/18 23:54 5 MG Miconazole Nitrate (Desenex Powder) 1 appln PRN PRN EXT 01/02/18 14:30 02/01/18 14:29 01/03/18 07:44 1 APPLN Miscellaneous Information 1 ea UD PRN N/A 01/03/18 08:45 02/02/18 08:44 Ceftriaxone Sodium 2000 mg/ Dextrose 70 ml @ 140 mls/hr Q24H IV 01/03/18 09:00 01/13/18 08:59 01/03/18 09:14 140 MLS/HR Amlodipine Besylate (Norvasc Tab) 5 mg QAM PO 01/04/18 09:00 02/03/18 08:59
[2018-01-04 07:23] LABS: CREATININE 1.62 mg/dl (0.60-1.20)
[2018-01-04] MEDS: INSULIN ASPART 100 UNITS/ML 3 ML PEN SC SCH ×4 (08:11→21:15)
[2018-01-04] MEDS: INSULIN GLARGINE SOLOSTAR 100 UNITS/ML 3 ML PEN SQ SCH ×2 (08:11→21:16)
[2018-01-04] MEDS: HEPARIN SOD 5000 UNIT/0.5 ML CARP SQ SCH ×2 (08:12→21:16)
[2018-01-04] MEDS: FLUTICASONE PROPIONATE NA SPR 16 GM BTL NAE SCH (08:12)
[2018-01-04] MEDS: CHOLECALCIFEROL 1000 INTER.UNIT TAB PO SCH (08:12)
[2018-01-04] MEDS: GABAPENTIN 300 MG CAP PO SCH ×3 (08:12→20:14)
[2018-01-04] MEDS: LACTOBACILLUS ACIDOPHILUS (FLORANEX) TAB PO SCH ×3 (08:13→17:37)
[2018-01-04] MEDS: SERTRALINE HCL 50 MG TAB PO SCH (08:13)
[2018-01-04] MEDS: ASPIRIN 325 MG ECTAB PO SCH (08:13)
[2018-01-04] MEDS: RANITIDINE HCL 150 MG TAB PO SCH ×2 (08:13→20:13)
[2018-01-04] MEDS: AMLODIPINE BESYLATE 5 MG TAB PO SCH (08:14)
[2018-01-04] MEDS: SENNA 8.6 MG TAB PO SCH (08:14)
[2018-01-04] MEDS: POLYETHYLENE (MIRALAX) 17 GM PACK PO SCH (08:15)
[2018-01-04] MEDS: LIDODERM (LIDOCAINE) PATCH 5% TD SCH (08:15)
[2018-01-04] MEDS: CEFTRIAXONE SOD INJ 2000 MG in DEXTROSE 5% 50ML IV SCH (08:28)
--- NOTE | 2018-01-04 11:22 | Cardiology Follow-Up ---
Subjective General Date of Service: January 04, 2018. Chief Complaint: bradycardia Pt evaluation today including: conversation w/ patient, conversation w/ family , physical exam, chart review, lab review, review of studies, review of inpatient medication list History of Present Illness Patient feeling ok. Offers no complaints. Denies chest pain or SOB. BP trending down. Chronic lymphedema unchanged. No orthopnea, PND. No dizziness, lightheadedness, syncope or near syncope. Telemetry reviewed - NSR and sinus bradycardia - HR's predominantly in the 50' s. No significant pauses. Questionable ectopic atrial rhythm with inverted P waves noted on telemetry. EKG completed - confirmed NSR, HR 63, LAD, normal EKG Echo reviewed, completed earlier this admission - preserved LV function, mitral calcification with mild MS noted. Allergies Coded Allergies: Metformin (Verified Allergy, Intermediate, causes kidney problems, 11/09/17 ) Loratadine (Verified Allergy, Unknown, MOUTH SWELLING, 11/09/17) Sulfamethoxazole w/Trimethoprim (Verified Allergy, Unknown, "ITS BEEN SO LONG, I FORGET", 11/09/17) HMG-CoA-R Inhibitors (Verified Adverse Reaction, Mild, GI UPSET, 11/09/17) ? GI UPSET PER DR PATEL Sulfa Antibiotics (Verified Adverse Reaction, Unknown, NAUSEA, 11/09/17) Social History Smoking Status: Never Smoker Hx Tobacco Use In Past Year?: No Hx Alcohol Use - Type And Amou: No Hx Substance Use - Type And Am: No Problem List Medical Problems: (1) MAGGIE (acute kidney injury) Status: Acute (2) C. difficile enteritis Status: Acute (3) Calcaneal fracture Status: Acute (4) Elevated troponin Status: Acute (5) Fracture of humeral head, closed Status: Acute (6) Leukocytosis Status: Acute (7) Right flank pain Status: Acute (8) UTI (urinary tract infection) Status: Acute Review of Systems Respiratory: No cough, No sputum, No wheezing, No shortness of breath, No dyspnea at rest, No hemoptysis Cardiac: No chest pain, No PND, No edema, No palpitations Physical Exam Vital Signs Last Vital Signs Documentation Date Time Temp Pulse Resp B/P (MAP) Pulse Ox O2 Delivery O2 Flow Rate FiO2 01/04/18 08:00 94 Room Air 01/04/18 07:30 36.5 46 16 128/75 (92) Physical Exam Constitutional: General Apperance: obese Level of Distress: NAD, chronically ill Psychiatric: Mental Status: active & alert Orientation: to time, to place, to person Head: normocephalic Eyes: Pupils: PERRLA Neck: supple Lungs: Respiratory effort: no dyspnea Cardiovascular: Heart Auscultation: RRR, murmur (noted, distant heart sounds) Extremities: edema (chronic lymphedema) Assessment and Plan Assessment and Plan 1. bradycardia asymptomatic, incidentally discovered likely due to polypharmacy agents held, HR improving avoid clonidine and beta blockers currently HR's int he 50-60's. NSR confirmed on EKG this AM 2. HTN BP improved over the last 24 hours with amlodipine 5 mg. can increase to a total of 10mg daily if needed also could restart hydralazine if necessary follows with nephrology as outpatient, deemed not appropriate for WIN/ARB in past Stable cardiac signs/symptoms. Case discussed with Dr. Esqueda. Laboratory Results Last 24 Hours Test 01/03/18 11:29 01/03/18 16:31 01/03/18 20:21 01/03/18 22:28 Bedside Glucose 144 mg/dl 100 mg/dl 80 mg/dl 77 mg/dl Test 01/04/18 06:32 01/04/18 07:39 Sodium Level 138 mmol/L Potassium Level 4.0 mmol/L Chloride Level 107 mmol/L Carbon Dioxide Level 24 mmol/L Anion Gap 7.0 mmol/L Blood Urea Nitrogen 21 mg/dl Creatinine 1.62 mg/dl Est Creatinine Clear Calc Drug Dose 38.8 ml/min Estimated GFR () 36.4 Estimated GFR (Non- 31.4 BUN/Creatinine Ratio 13.1 Random Glucose 82 mg/dl Calcium Level 8.0 mg/dl Bedside Glucose 71 mg/dl
[2018-01-04] MEDS: OXYCODONE/ACETAMINOPHEN 5-325 TAB PO PRN (12:09)
--- NOTE | 2018-01-04 14:02 | Infectious Disease Progress Nt ---
Progress Note Date of Service January 04, 2018. Subjective Pt evaluation today including: conversation w/ patient, physical exam, chart review, lab review, review of studies, conversation w/ virtualization consultant, review of inpatient medication list Patient feeling somewhat better today.. Still with some flank pain, slightly better. Remains afebrile. No urinary complaints. All Other Systems: Reviewed and Negative Medications Current Inpatient Medications Medications (Trade) Dose Ordered Sig/Hansel Route Start Time Stop Time Status Last Admin Dose Admin Aspirin (Ecotrin Tab) 325 mg QAM PO 01/02/18 09:00 02/01/18 08:59 01/04/18 08:13 325 MG Cholecalciferol (Vitamin D Tab) 1,000 inter.unit DAILY PO 01/02/18 09:00 02/01/18 08:59 01/04/18 08:12 1,000 INTER.UNIT Clonazepam (Klonopin Tab) 1 mg HS PO 01/01/18 21:00 01/31/18 20:59 01/03/18 21:19 1 MG Fenofibrate (Tricor Tab) 145 mg QPM PO 01/01/18 21:00 01/31/18 20:59 01/03/18 21:08 145 MG Fluticasone Propionate (Flonase Nasal [place]) 1 sprays DAILY ANSELMO 01/02/18 09:00 02/01/18 08:59 01/04/18 08:12 1 SPRAYS Gabapentin (Neurontin Cap) 300 mg DAILY@1400 PO 01/02/18 14:00 02/01/18 13:59 01/03/18 13:52 300 MG Gabapentin (Neurontin Cap) 600 mg BID PO 01/01/18 21:00 01/31/18 20:59 01/04/18 08:12 600 MG Insulin Glargine (Lantus Solostar Pen) 20 units BID SQ 01/01/18 21:00 01/31/18 20:59 01/04/18 08:11 20 UNITS Lactobacillus Acidophilus (Floranex Tab) 1 tab TIDM PO 01/02/18 08:00 02/01/18 07:59 01/04/18 12:02 1 TAB Nitroglycerin (Nitrostat Tab) 0.4 mg PRN UT 01/01/18 21:00 01/31/18 20:59 Pantoprazole Sodium (Protonix Tab) 40 mg QPM PO 01/01/18 21:00 01/31/18 20:59 01/03/18 21:07 40 MG Ranitidine HCl (zANTac TAB) 150 mg BID PO 01/01/18 21:00 01/31/18 20:59 01/04/18 08:13 150 MG Rosuvastatin Calcium (Crestor Tab) 40 mg QPM PO 01/01/18 21:00 01/31/18 20:59 01/03/18 21:08 40 MG Sertraline HCl (Zoloft Tab) 50 mg QAM PO 01/02/18 09:00 02/01/18 08:59 01/04/18 08:13 50 MG Topiramate (Topamax Tab) 25 mg BID PO 01/01/18 21:00 01/31/18 20:59 Future Hold 01/02/18 08:01 25 MG Acetaminophen (Tylenol Tab) 650 mg Q4H PRN PO 01/01/18 21:15 01/31/18 21:14 Al Hydrox/Mg Hydrox/Simethicone (Maalox Max Susp) 15 ml Q4H PRN PO 01/01/18 21:15 01/31/18 21:14 Magnesium Hydroxide (Milk Of Magnesia Susp) 30 ml Q6H PRN PO 01/01/18 21:15 01/31/18 21:14 Ondansetron HCl (Zofran Inj) 4 mg Q6H PRN IV 01/01/18 21:15 01/31/18 21:14 Heparin Sodium (Porcine) (Heparin Sq 5000 Unit/0.5ml) 5,000 unit Q12H SQ 01/02/18 09:00 02/01/18 08:59 01/04/18 08:12 5,000 UNIT Insulin Aspart (novoLOG ASPART) SLIDING SCALE If C... ACHS SC 01/02/18 06:30 02/01/18 06:29 01/04/18 12:03 4 UNITS Glucose (Glucose 40% Gel) 15-30 GRAMS 15 GRAMS... UD PRN PO 01/01/18 21:15 01/31/18 21:14 Glucose (Glucose Chew Tab) 4-8 Tablets 4 Tabl... UD PRN PO 01/01/18 21:15 01/31/18 21:14 Dextrose (Dextrose 50% 50ML Syringe) 25-50ML 25ML FOR ... UD PRN IV 01/01/18 21:15 01/31/18 21:14 Glucagon (Glucagon Inj) 1 mg UD PRN SQ 01/01/18 21:15 01/31/18 21:14 Carbohydrates (Carbohydrates For Hypoglycemia) 15-30 GRAMS 15 grams if BSG 54-69... UD PRN PO 01/01/18 21:15 01/31/18 21:14 Oxycodone/ Acetaminophen (Percocet 5-325mg Tab) 2 tab Q12 PRN PO 01/01/18 23:00 01/15/18 20:59 01/04/18 12:09 2 TAB Senna (Senokot Tab) 17.2 mg QAM PO 01/02/18 09:00 02/01/18 08:59 01/04/18 08:14 17.2 MG Polyethylene (Miralax Powder Packet) 17 gm DAILY PO 01/02/18 09:00 01/31/18 21:14 01/03/18 09:00 17 GM Clonidine HCl (Catapres Tab) 0.2 mg TID PO 01/02/18 09:00 01/31/18 20:59 Future Hold 01/02/18 08:01 0.2 MG Lidocaine (Lidoderm Patch 5%) 1 patch QAM TD 01/03/18 09:00 02/02/18 08:59 Miscellaneous (Remove Lidoderm Patch) 1 ea DAILY@21 N/A 01/02/18 21:00 02/01/18 20:59 01/03/18 21:08 1 EA Cyclobenzaprine HCl (Flexeril Tab) 5 mg BID PRN PO 01/02/18 11:00 02/01/18 10:59 01/03/18 23:54 5 MG Miconazole Nitrate (Desenex Powder) 1 appln PRN PRN EXT 01/02/18 14:30 02/01/18 14:29 01/03/18 07:44 1 APPLN Miscellaneous Information 1 ea UD PRN N/A 01/03/18 08:45 02/02/18 08:44 Ceftriaxone Sodium 2000 mg/ Dextrose 70 ml @ 140 mls/hr Q24H IV 5/7/18 09:00 01/13/18 08:59 01/04/18 08:28 140 MLS/HR Amlodipine Besylate (Norvasc Tab) 5 mg QAM PO 01/04/18 09:00 02/03/18 08:59 01/04/18 08:14 5 MG Objective Vital Signs Date Time Temp Pulse Resp B/P (MAP) Pulse Ox O2 Delivery O2 Flow Rate FiO2 01/04/18 12:00 94 Room Air 01/04/18 11:48 36.6 67 20 176/89 (118) 96 Room Air 01/04/18 08:00 94 Room Air 01/04/18 07:30 36.5 46 16 128/75 (92) 94 Room Air 01/04/18 04:17 36.7 56 16 146/67 (93) 93 Room Air 01/04/18 04:10 Room Air 01/04/18 00:01 Room Air 01/03/18 23:15 36.8 54 20 135/80 (98) 96 Room Air 01/03/18 20:00 Room Air 01/03/18 19:24 36.5 56 20 167/78 (107) 94 Room Air 01/03/18 16:00 Room Air 01/03/18 15:49 36.3 48 20 140/77 (98) 98 Room Air Physical Exam General Appearance: WD/WN, no apparent distress, + obese Eyes: normal inspection, EOMI, sclerae normal ENT: normal ENT inspection, pharynx normal Neck: supple, no adenopathy, thyroid normal, trachea midline Respiratory/Chest: chest non-tender, lungs clear, normal breath sounds, no respiratory distress Cardiovascular: regular rate, rhythm, no gallop, no murmur Abdomen: normal bowel sounds, non tender, soft, no organomegaly Extremities: non-tender, no calf tenderness, + swelling Neurologic/Psychiatric: alert, oriented x 3 Skin: normal color, no rash, + pertinent finding (Right flank hematoma) Lymphatic: no adenopathy Laboratory Results Last 24 Hours Test 01/03/18 16:31 01/03/18 20:21 01/03/18 22:28 01/04/18 06:32 Bedside Glucose 100 mg/dl 80 mg/dl 77 mg/dl Sodium Level 138 mmol/L Potassium Level 4.0 mmol/L Chloride Level 107 mmol/L Carbon Dioxide Level 24 mmol/L Anion Gap 7.0 mmol/L Blood Urea Nitrogen 21 mg/dl Creatinine 1.62 mg/dl Est Creatinine Clear Calc Drug Dose 38.8 ml/min Estimated GFR () 36.4 Estimated GFR (Non- 31.4 BUN/Creatinine Ratio 13.1 Random Glucose 82 mg/dl Calcium Level 8.0 mg/dl Test 01/04/18 07:39 01/04/18 11:24 Bedside Glucose 71 mg/dl 121 mg/dl Assessment and Plan 72-year-old female with diabetes, hypertension, chronic lower extremity lymphedema, who presents with severe back and right flank pain, without evidence of pyelonephritis or significant urinary tract infection on CT scan, but abnormal urinalysis and positive urine culture for line Klebsiella. Patient to be treated with IV ceftriaxone for now, hopefully can transition to oral antibiotics if remains afebrile.
--- NOTE | 2018-01-04 14:58 | Progress Note ---
Internal Med Progress Note Date of Service: January 04, 2018. Provider Documentation: SUBJECTIVE: Seen and examined at bedside States feeling better today Flank pain, back pain improving Denies chest pain, SOB, dizziness No other complaints BP labile, HR better OBJECTIVE: Vital Signs-as noted below Physical Exam: General Appearance:Obese, no apparent distress Head: normocephalic, Atraumatic Eyes: normal inspection, EOMI, PERRL Neck: supple, Trachea midline Respiratory/Chest: Normal breath sounds, CTA Cardiovascular: S1, S2, No murmur Abdomen/GI:Soft, Non tender, Bowel sounds present Extremities/Musculoskelatal:normal inspection, +Lymphedema Neurologic/Psych:AAOX3, grossly no focal neurological deficits Skin: normal color, warm Lab data as noted below. ASSESSMENT & PLAN: Patient is a 72 yr female with PMH of DM II, hypertension, CKD stage III, chronic hyponatremia, recurrent UTIs Presented with right flank pain. Right flank pain likely Musculoskeletal H/O chronic low back pain secondary to lumbar degenerative disease CT abdomen pelvis shows no evidence of stone/no pyelonephritis X-ray of lumbar spine: No acute fracture or subluxation. Dextroscoliosis with multilevel degenerative changes as above. Continue Lidoderm patch and Flexeril Patient uses oxycodone PRN at home PT/OT Improving UTI H/O complicated UTI / ESBL E.coli Urine culture:E coli and Klebsiella Ertapenem changed to Ceftriaxone ID following Sinus Bradycardia: Likely secondary to medications Asymptomatic Carvedilol held Avoid clonidine, beta blockers Amlodipine resumed Appreciate Cardiology Input ECHO as below HTN: Labile resume hydralazine continue amlodipine avoid clonidine as able Carvedilol held DM II: Continue basal Lantus, ISS Chronic Lymphedema: Doppler US lower leg: negative for DVT Morbid Obesity: BMI:58 Counseling provided for weight reduction/exercise/diet modification Diabetic Neuropathy: Continue gabapentin Depression:: Continue SSRI MAGGIE on CKD III: cr baseline: around 1.5 Possible secondary to dehydration/UTI held Lasix S/P IV fluids monitor Cr improving Chronic Hyponatremia: resolved IV fluids discontinued Code Status: Full code DVT Px: Heparin SQ Disposition: PT/OT Social service consulted for discharge plan PROCEDURES: ECHO: Compared to previous study of 08/30/16: small loculated anterior pericardial effusion without hemodynamic significance is now present. * Normal LV chamber size with moderate concentric LVH. * Normal LV systolic function without regional wall motion abnormality, EF 60 -65%. * Grade II diastolic dysfunction. * Aortic valve sclerosis mild, without significant aortic valvular stenosis. * There is severe mitral annular calcification. Calcified mitral apparatus causing mitral stenosis. There is mild mitral regurgitation. There is mild mitral stenosis. * Small loculated anterior pericardial effusion without hemodynamic significance Vital Signs: Date Time Temp Pulse Resp B/P (MAP) Pulse Ox O2 Delivery O2 Flow Rate FiO2 01/04/18 12:00 94 Room Air 01/04/18 11:48 36.6 67 20 176/89 (118) 96 Room Air 01/04/18 08:00 94 Room Air 01/04/18 07:30 36.5 46 16 128/75 (92) 94 Room Air 01/04/18 04:17 36.7 56 16 146/67 (93) 93 Room Air 01/04/18 04:10 Room Air 01/04/18 00:01 Room Air 01/03/18 23:15 36.8 54 20 135/80 (98) 96 Room Air 01/03/18 20:00 Room Air 01/03/18 19:24 36.5 56 20 167/78 (107) 94 Room Air 01/03/18 16:00 Room Air 01/03/18 15:49 36.3 48 20 140/77 (98) 98 Room Air Lab Results: Results Past 24 Hours Test 01/03/18 16:31 01/03/18 20:21 01/03/18 22:28 01/04/18 06:32 Range/Units Bedside Glucose 100 80 77 70-90 mg/dl Sodium Level 138 136-145 mmol/L Potassium Level 4.0 3.5-5.1 mmol/L Chloride Level 107 98-107 mmol/L Carbon Dioxide Level 24 21-32 mmol/L Anion Gap 7.0 3-11 mmol/L Blood Urea Nitrogen 21 7-18 mg/dl Creatinine 1.62 0.60-1.20 mg/dl Est Creatinine Clear Calc Drug Dose 38.8 ml/min Estimated GFR () 36.4 Estimated GFR (Non- 31.4 BUN/Creatinine Ratio 13.1 10-20 Random Glucose 82 70-99 mg/dl Calcium Level 8.0 8.5-10.1 mg/dl Test 01/04/18 07:39 01/04/18 11:24 Range/Units Bedside Glucose 71 121 70-90 mg/dl
[2018-01-04] MEDS ORDERED: AMLODIPINE BESYLATE 5 MG TAB PO ONE (17:25)
[2018-01-04] MEDS: CLONAZEPAM 1 MG TAB PO SCH (20:13)
[2018-01-04] MEDS: PANTOprazole SOD 40 MG TAB PO SCH (20:13)
[2018-01-04] MEDS: ROSUVASTATIN CALCIUM 20 MG TAB PO SCH (20:15)
[2018-01-04] MEDS: FENOFIBRATE 145 MG TAB PO SCH (20:16)
[2018-01-04] MEDS: CYCLOBENZAPRINE HCL 5 MG TAB PO PRN (20:16)
[2018-01-04] MEDS: MICONAZOLE NITRATE POWDER 43 GM EXT PRN (21:21)
[2018-01-05] VITALS (12 sets, daily range): BP systolic 147–188; BP diastolic 76–100; PULSE 58–77; TEMP 36.5–37; O2SAT 93–98
[2018-01-05 07:41] LABS: HEMATOCRIT 33.5 % (37-47); HEMOGLOBIN 10.9 g/dL (12.0-16.0); MEAN CELL VOLUME 87.7 fL (80-100); MEAN CORPUSCULAR HEMOGLOBIN 28.5 pg (25-34); MEAN CORPUSCULAR HGB CONC 32.5 g/dl (32-36); MEAN PLATELET VOLUME 9.3 fL (7.4-10.4); PLATELET COUNT 226 K/uL (130-400); RED CELL DISTRIBUTION WIDTH CV 14.3 % (11.5-14.5); RED CELL DISTRIBUTION WIDTH SD 45.9 fL (36.4-46.3); WHITE BLOOD COUNT 7.73 K/uL (4.8-10.8)
[2018-01-05] MEDS: LACTOBACILLUS ACIDOPHILUS (FLORANEX) TAB PO SCH ×3 (07:41→17:21)
[2018-01-05] MEDS: SERTRALINE HCL 50 MG TAB PO SCH (07:46)
[2018-01-05] MEDS: AMLODIPINE BESYLATE 5 MG TAB PO SCH ×2 (07:46→21:17)
[2018-01-05] MEDS: CYCLOBENZAPRINE HCL 5 MG TAB PO PRN (07:46)
[2018-01-05] MEDS: FLUTICASONE PROPIONATE NA SPR 16 GM BTL NAE SCH (07:46)
[2018-01-05] MEDS: ASPIRIN 325 MG ECTAB PO SCH (07:46)
[2018-01-05] MEDS: RANITIDINE HCL 150 MG TAB PO SCH ×2 (07:47→21:18)
[2018-01-05] MEDS: CHOLECALCIFEROL 1000 INTER.UNIT TAB PO SCH (07:48)
[2018-01-05] MEDS: POLYETHYLENE (MIRALAX) 17 GM PACK PO SCH (07:48)
[2018-01-05] MEDS: SENNA 8.6 MG TAB PO SCH (07:48)
[2018-01-05] MEDS: GABAPENTIN 300 MG CAP PO SCH ×3 (07:48→21:19)
[2018-01-05] MEDS: INSULIN ASPART 100 UNITS/ML 3 ML PEN SC SCH ×4 (07:54→21:00)
[2018-01-05] MEDS: HEPARIN SOD 5000 UNIT/0.5 ML CARP SQ SCH ×2 (07:55→21:24)
[2018-01-05] MEDS: INSULIN GLARGINE SOLOSTAR 100 UNITS/ML 3 ML PEN SQ SCH ×2 (07:55→21:23)
[2018-01-05] MEDS: LIDODERM (LIDOCAINE) PATCH 5% TD SCH (07:56)
[2018-01-05] MEDS: OXYCODONE/ACETAMINOPHEN 5-325 TAB PO PRN ×2 (07:59→21:29)
[2018-01-05 08:17] LABS: CALCIUM 8.5 mg/dl (8.5-10.1); CREATININE 1.48 mg/dl (0.60-1.20)
[2018-01-05] MEDS: CEFTRIAXONE SOD INJ 2000 MG in DEXTROSE 5% 50ML IV SCH (08:30)
--- NOTE | 2018-01-05 11:32 | Cardiology Follow-Up ---
Subjective General Date of Service: January 05, 2018. Chief Complaint: bradycardia Pt evaluation today including: conversation w/ patient, physical exam, chart review, lab review, review of studies, review of inpatient medication list History of Present Illness Patient feeling well this AM. Offers no complaints. BP trending higher since yesterday. Hydralazine resumed. Allergies Coded Allergies: Metformin (Verified Allergy, Intermediate, causes kidney problems, 11/09/17 ) Loratadine (Verified Allergy, Unknown, MOUTH SWELLING, 11/09/17) Sulfamethoxazole w/Trimethoprim (Verified Allergy, Unknown, "ITS BEEN SO LONG, I FORGET", 11/09/17) HMG-CoA-R Inhibitors (Verified Adverse Reaction, Mild, GI UPSET, 11/09/17) ? GI UPSET PER DR PATEL Sulfa Antibiotics (Verified Adverse Reaction, Unknown, NAUSEA, 11/09/17) Social History Smoking Status: Never Smoker Hx Tobacco Use In Past Year?: No Hx Alcohol Use - Type And Amou: No Hx Substance Use - Type And Am: No Problem List Medical Problems: (1) MAGGIE (acute kidney injury) Status: Acute (2) C. difficile enteritis Status: Acute (3) Calcaneal fracture Status: Acute (4) Elevated troponin Status: Acute (5) Fracture of humeral head, closed Status: Acute (6) Leukocytosis Status: Acute (7) Right flank pain Status: Acute (8) UTI (urinary tract infection) Status: Acute Review of Systems Respiratory: No cough, No sputum, No wheezing, No shortness of breath, No dyspnea on exertion, No dyspnea at rest Cardiac: + edema, No chest pain, No orthopnea, No PND, No palpitations Physical Exam Vital Signs Last Vital Signs Documentation Date Time Temp Pulse Resp B/P (MAP) Pulse Ox O2 Delivery O2 Flow Rate FiO2 01/05/18 11:20 36.7 65 20 180/81 (114) 97 Room Air Physical Exam Constitutional: General Apperance: obese Level of Distress: NAD, chronically ill Psychiatric: Mental Status: active & alert Orientation: to time, to place, to person Head: normocephalic Eyes: Pupils: PERRLA Neck: supple Lungs: Respiratory effort: no dyspnea Cardiovascular: Heart Auscultation: RRR, murmur Extremities: edema Assessment and Plan Assessment and Plan 1. bradycardia asymptomatic, incidentally discovered likely due to polypharmacy agents held, HR improving avoid clonidine and beta blockers currently HR's int he 50-60's. NSR confirmed on EKG 2. HTN BP uncontrolled since yesterday afternoon hydralazine resumed at 50 mg TID increase amlodipine to 5 mg BID. Carvedilol on hold due to bradycardia also previously on furosemide 40 mg daily (per patient). follows with nephrology as outpatient, deemed not appropriate for WIN/ARB in past Case discussed with Dr. Esqueda. Cardiology attending: Pt seen and examined, agree with findings and assessment as per Sandra Romero. Will uptitrate antihypertensives as outlined above. Laboratory Results Last 24 Hours Test 01/04/18 16:23 01/04/18 20:37 01/05/18 07:29 01/05/18 07:37 Bedside Glucose 144 mg/dl 149 mg/dl 93 mg/dl White Blood Count 7.73 K/uL Red Blood Count 3.82 M/uL Hemoglobin 10.9 g/dL Hematocrit 33.5 % Mean Corpuscular Volume 87.7 fL Mean Corpuscular Hemoglobin 28.5 pg Mean Corpuscular Hemoglobin Concent 32.5 g/dl RDW Standard Deviation 45.9 fL RDW Coefficient of Variation 14.3 % Platelet Count 226 K/uL Mean Platelet Volume 9.3 fL Sodium Level 140 mmol/L Potassium Level 4.0 mmol/L Chloride Level 107 mmol/L Carbon Dioxide Level 27 mmol/L Anion Gap 5.0 mmol/L Blood Urea Nitrogen 19 mg/dl Creatinine 1.48 mg/dl Est Creatinine Clear Calc Drug Dose 41.8 ml/min Estimated GFR () 40.6 Estimated GFR (Non- 35.0 BUN/Creatinine Ratio 12.9 Random Glucose 96 mg/dl Calcium Level 8.5 mg/dl Magnesium Level 2.0 mg/dl
[2018-01-05] MEDS: ONDANSETRON INJ 2 MG/ML 2 ML VIAL IV PRN (15:30)
--- NOTE | 2018-01-05 16:32 | Progress Note ---
Internal Med Progress Note Date of Service: January 05, 2018. Provider Documentation: SUBJECTIVE: Seen and examined at bedside Doing well today Flank pain, back pain is much improved Denies chest pain, SOB, dizziness Reports one Loose BM today No other complaints OBJECTIVE: Vital Signs-as noted below Physical Exam: General Appearance:Obese, no apparent distress Head: normocephalic, Atraumatic Eyes: normal inspection, EOMI, PERRL Neck: supple, Trachea midline Respiratory/Chest: Normal breath sounds, CTA Cardiovascular: S1, S2, No murmur Abdomen/GI:Soft, Non tender, Bowel sounds present Extremities/Musculoskelatal:normal inspection, +Lymphedema Neurologic/Psych:AAOX3, grossly no focal neurological deficits Skin: normal color, warm Lab data as noted below. ASSESSMENT & PLAN: Patient is a 72 yr female with PMH of DM II, hypertension, CKD stage III, chronic hyponatremia, recurrent UTIs Presented with right flank pain. Right flank pain likely Musculoskeletal H/O chronic low back pain secondary to lumbar degenerative disease CT abdomen pelvis shows no evidence of stone/no pyelonephritis X-ray of lumbar spine: No acute fracture or subluxation. Dextroscoliosis with multilevel degenerative changes as above. Continue Lidoderm patch and Flexeril Patient uses oxycodone PRN at home PT/OT Much improved today UTI H/O complicated UTI / ESBL E.coli Urine culture:E coli and Klebsiella Ertapenem changed to Ceftriaxone ID following Plan to change to PO antibiotics if remains afebrile Sinus Bradycardia: Likely secondary to medications Asymptomatic Carvedilol held Avoid clonidine, beta blockers Appreciate Cardiology Input ECHO as below Diarrhea: H/O C.diff Hold stool softeners Check for C.diff if diarrhea reoccurs HTN: Labile Continue hydralazine 50mg TID continue amlodipine increased to 5mg BID avoid clonidine as able Carvedilol held DM II: Continue basal Lantus, ISS Chronic Lymphedema: Doppler US lower leg: negative for DVT Morbid Obesity: BMI:58 Counseling provided for weight reduction/exercise/diet modification Diabetic Neuropathy: Continue gabapentin Depression:: Continue SSRI MAGGIE on CKD III: cr baseline: around 1.5 Possible secondary to dehydration/UTI held Lasix S/P IV fluids monitor Cr back to baseline Chronic Hyponatremia: resolved IV fluids discontinued Code Status: Full code DVT Px: Heparin SQ Disposition: PT/OT Social service consulted for discharge plan Plan to discharge home with home health once stable PROCEDURES: ECHO: Compared to previous study of 08/30/16: small loculated anterior pericardial effusion without hemodynamic significance is now present. * Normal LV chamber size with moderate concentric LVH. * Normal LV systolic function without regional wall motion abnormality, EF 60 -65%. * Grade II diastolic dysfunction. * Aortic valve sclerosis mild, without significant aortic valvular stenosis. * There is severe mitral annular calcification. Calcified mitral apparatus causing mitral stenosis. There is mild mitral regurgitation. There is mild mitral stenosis. * Small loculated anterior pericardial effusion without hemodynamic significance Vital Signs: Date Time Temp Pulse Resp B/P (MAP) Pulse Ox O2 Delivery O2 Flow Rate FiO2 01/05/18 16:00 98 Room Air 01/05/18 15:44 36.5 64 20 147/77 (100) 98 Room Air 01/05/18 12:00 96 Room Air 01/05/18 11:20 36.7 65 20 180/81 (114) 97 Room Air 01/05/18 08:01 96 Room Air 01/05/18 07:28 37.0 58 20 188/81 (116) 96 Room Air 01/05/18 04:00 37.0 67 16 170/76 (107) 96 Room Air 01/05/18 04:00 Room Air 01/05/18 00:00 Room Air 01/04/18 23:38 36.7 59 18 150/75 (100) 93 Room Air 01/04/18 21:22 62 167/75 (105) 01/04/18 20:00 98 Room Air 01/04/18 19:09 36.4 52 18 181/82 (115) 97 Room Air 01/04/18 18:17 53 156/80 (105) Lab Results: Results Past 24 Hours Test 01/04/18 20:37 01/05/18 07:29 01/05/18 07:37 01/05/18 11:34 Range/Units Bedside Glucose 149 93 155 70-90 mg/dl White Blood Count 7.73 4.8-10.8 K/uL Red Blood Count 3.82 4.2-5.4 M/uL Hemoglobin 10.9 12.0-16.0 g/dL Hematocrit 33.5 37-47 % Mean Corpuscular Volume 87.7 80-100 fL Mean Corpuscular Hemoglobin 28.5 25-34 pg Mean Corpuscular Hemoglobin Concent 32.5 32-36 g/dl RDW Standard Deviation 45.9 36.4-46.3 fL RDW Coefficient of Variation 14.3 11.5-14.5 % Platelet Count 226 130-400 K/uL Mean Platelet Volume 9.3 7.4-10.4 fL Sodium Level 140 136-145 mmol/L Potassium Level 4.0 3.5-5.1 mmol/L Chloride Level 107 98-107 mmol/L Carbon Dioxide Level 27 21-32 mmol/L Anion Gap 5.0 3-11 mmol/L Blood Urea Nitrogen 19 7-18 mg/dl Creatinine 1.48 0.60-1.20 mg/dl Est Creatinine Clear Calc Drug Dose 41.8 ml/min Estimated GFR () 40.6 Estimated GFR (Non- 35.0 BUN/Creatinine Ratio 12.9 10-20 Random Glucose 96 70-99 mg/dl Calcium Level 8.5 8.5-10.1 mg/dl Magnesium Level 2.0 1.8-2.4 mg/dl Test 01/05/18 16:48 Range/Units Bedside Glucose 123 70-90 mg/dl
[2018-01-05] MEDS: CLONAZEPAM 1 MG TAB PO SCH (21:16)
[2018-01-05] MEDS: FENOFIBRATE 145 MG TAB PO SCH (21:17)
[2018-01-05] MEDS: PANTOprazole SOD 40 MG TAB PO SCH (21:18)
[2018-01-05] MEDS: ROSUVASTATIN CALCIUM 20 MG TAB PO SCH (21:18)
[2018-01-06] VITALS (9 sets, daily range): BP systolic 164–195; BP diastolic 69–90; PULSE 76–83; TEMP 36.7–37.4; O2SAT 92–96
[2018-01-06] MEDS: AMLODIPINE BESYLATE 5 MG TAB PO SCH ×2 (05:12→20:44)
[2018-01-06 07:17] LABS: HEMATOCRIT 33.1 % (37-47); HEMOGLOBIN 10.8 g/dL (12.0-16.0)
[2018-01-06 07:48] LABS: CALCIUM 7.9 mg/dl (8.5-10.1); CREATININE 1.4 mg/dl (0.60-1.20)
[2018-01-06] MEDS: INSULIN ASPART 100 UNITS/ML 3 ML PEN SC SCH ×4 (08:05→20:47)
[2018-01-06] MEDS: INSULIN GLARGINE SOLOSTAR 100 UNITS/ML 3 ML PEN SQ SCH ×2 (08:05→20:48)
[2018-01-06] MEDS: HEPARIN SOD 5000 UNIT/0.5 ML CARP SQ SCH ×2 (08:06→20:48)
[2018-01-06] MEDS: LACTOBACILLUS ACIDOPHILUS (FLORANEX) TAB PO SCH ×3 (08:09→17:14)
[2018-01-06] MEDS: RANITIDINE HCL 150 MG TAB PO SCH ×2 (08:09→20:44)
[2018-01-06] MEDS: SERTRALINE HCL 50 MG TAB PO SCH (08:09)
[2018-01-06] MEDS: CEFTRIAXONE SOD INJ 2000 MG in DEXTROSE 5% 50ML IV SCH (08:09)
[2018-01-06] MEDS: GABAPENTIN 300 MG CAP PO SCH ×3 (08:10→20:45)
[2018-01-06] MEDS: FLUTICASONE PROPIONATE NA SPR 16 GM BTL NAE SCH (08:11)
[2018-01-06] MEDS: ASPIRIN 325 MG ECTAB PO SCH (08:11)
[2018-01-06] MEDS: CHOLECALCIFEROL 1000 INTER.UNIT TAB PO SCH (08:11)
[2018-01-06] MEDS: CYCLOBENZAPRINE HCL 5 MG TAB PO PRN (08:13)
[2018-01-06] MEDS: LIDODERM (LIDOCAINE) PATCH 5% TD SCH (08:13)
[2018-01-06] MEDS ORDERED: FUROSEMIDE 40 MG TAB PO ONE (10:11)
--- NOTE | 2018-01-06 10:22 | Cardiology Follow-Up ---
Subjective General Date of Service: January 06, 2018. Chief Complaint: bradycardia Pt evaluation today including: conversation w/ patient, physical exam, chart review, lab review, review of studies, review of inpatient medication list History of Present Illness Patient reports feeling well. Offers no complaints. Denies chest pain, SOB, headaches or vision changes. She is concerned with worsening "fluid". She reports taking furosemide 40 mg at home daily. She has not been taking since admission due to med instructions on admission as PRN only with diuretic. BP remains elevated despite resuming home BP medications (with the exception of carvedilol and clonidine). No recurrent bradycardia on telemetry. No dizziness, syncope or near syncope. Allergies Coded Allergies: Metformin (Verified Allergy, Intermediate, causes kidney problems, 11/09/17 ) Loratadine (Verified Allergy, Unknown, MOUTH SWELLING, 11/09/17) Sulfamethoxazole w/Trimethoprim (Verified Allergy, Unknown, "ITS BEEN SO LONG, I FORGET", 11/09/17) HMG-CoA-R Inhibitors (Verified Adverse Reaction, Mild, GI UPSET, 11/09/17) ? GI UPSET PER DR PATEL Sulfa Antibiotics (Verified Adverse Reaction, Unknown, NAUSEA, 11/09/17) Social History Smoking Status: Never Smoker Hx Tobacco Use In Past Year?: No Hx Alcohol Use - Type And Amou: No Hx Substance Use - Type And Am: No Problem List Medical Problems: (1) MAGGIE (acute kidney injury) Status: Acute (2) C. difficile enteritis Status: Acute (3) Calcaneal fracture Status: Acute (4) Elevated troponin Status: Acute (5) Fracture of humeral head, closed Status: Acute (6) Leukocytosis Status: Acute (7) Right flank pain Status: Acute (8) UTI (urinary tract infection) Status: Acute Review of Systems Respiratory: No cough, No sputum, No wheezing, No shortness of breath, No dyspnea at rest, No hemoptysis Cardiac: No chest pain, No orthopnea, No PND, No edema, No palpitations Physical Exam Vital Signs Last Vital Signs Documentation Date Time Temp Pulse Resp B/P (MAP) Pulse Ox O2 Delivery O2 Flow Rate FiO2 01/06/18 10:13 80 182/83 (116) 01/06/18 08:30 Room Air 01/06/18 07:44 36.7 20 92 Physical Exam Constitutional: General Apperance: obese Level of Distress: NAD, chronically ill Psychiatric: Mental Status: active & alert Orientation: to time, to place, to person Head: normocephalic Eyes: Pupils: PERRLA Neck: supple Lungs: Respiratory effort: no dyspnea Auscultation: deminished air movement Cardiovascular: Heart Auscultation: RRR, murmur Extremities: edema Assessment and Plan Assessment and Plan 1. bradycardia asymptomatic, incidentally discovered likely due to polypharmacy agents held, HR improving avoid clonidine and beta blockers currently HR's int he 50-60's. NSR confirmed on EKG 2. HTN BP uncontrolled hydralazine resumed and titrated to 50 mg TID (prior home dose) - increase today to 75 mg TID amlodipine resumed and titrated to 10 mg (prior home dose) carvedilol and clonidine remain on hold due to bradycardia. HR improved. resume furosemide 40 mg daily. monitor renal function. follows with nephrology as outpatient, deemed not appropriate for WIN/ARB in past if titration of hydralazine and adding diuretic fail to improve BP, consider adding nitrates. 3. Obesity, high probability of LALY -patient reports being told she needed a sleep study many years ago. Never completed -may be contributing to resistant hypertension -Nocturnal oximetry requested tonight and probable formal sleep study as outpatient? Case discussed with Dr. Esqueda. Cardiology attending: Pt seen and examined, agree with findings and assessment as per Sandra Romero. Pt remains without cardiac complaint. BP still uncontrolled. Believe that ultimately only intervention that will control it will be treatment for LALY. Still elevated despite above changes. Will add daily nitrates to hydralazine. May have to resume clonidine next but would hold off beta jaquan. May also consider alpha blockade with terazosin? Laboratory Results Last 24 Hours Test 01/05/18 11:34 01/05/18 16:48 01/05/18 19:25 01/06/18 07:07 Bedside Glucose 155 mg/dl 123 mg/dl 122 mg/dl Hemoglobin 10.8 g/dL Hematocrit 33.1 % Sodium Level 140 mmol/L Potassium Level 4.0 mmol/L Chloride Level 109 mmol/L Carbon Dioxide Level 26 mmol/L Anion Gap 5.0 mmol/L Blood Urea Nitrogen 16 mg/dl Creatinine 1.40 mg/dl Est Creatinine Clear Calc Drug Dose 44.0 ml/min Estimated GFR () 43.4 Estimated GFR (Non- 37.4 BUN/Creatinine Ratio 11.5 Random Glucose 105 mg/dl Calcium Level 7.9 mg/dl Magnesium Level 2.0 mg/dl Test 01/06/18 07:27 Bedside Glucose 99 mg/dl
--- NOTE | 2018-01-06 13:03 | Progress Note ---
Internal Med Progress Note Date of Service: January 06, 2018. Provider Documentation: SUBJECTIVE: Seen and examined at bedside BP still elevated Hydralazine dose adjusted back pain improved Had 2 Semiformed BMs today, Stool softeners held Denies chest pain, SOB, dizziness, abd pain No other complaints OBJECTIVE: Vital Signs-as noted below Physical Exam: General Appearance:Obese, no apparent distress Head: normocephalic, Atraumatic Eyes: normal inspection, EOMI, PERRL Neck: supple, Trachea midline Respiratory/Chest: Normal breath sounds, CTA Cardiovascular: S1, S2, No murmur Abdomen/GI:Soft, Non tender, Bowel sounds present Extremities/Musculoskelatal:normal inspection, +Lymphedema Neurologic/Psych:AAOX3, grossly no focal neurological deficits Skin: normal color, warm Lab data as noted below. ASSESSMENT & PLAN: Patient is a 72 yr female with PMH of DM II, hypertension, CKD stage III, chronic hyponatremia, recurrent UTIs Presented with right flank pain. Right flank pain likely Musculoskeletal H/O chronic low back pain secondary to lumbar degenerative disease CT abdomen pelvis shows no evidence of stone/no pyelonephritis X-ray of lumbar spine: No acute fracture or subluxation. Dextroscoliosis with multilevel degenerative changes as above. Continue Lidoderm patch and Flexeril Patient uses oxycodone PRN at home PT/OT Continued to improve UTI: H/O complicated UTI / ESBL E.coli Urine culture:E coli and Klebsiella Ertapenem changed to Ceftriaxone ID following Plan to change to PO antibiotics, will discuss with ID Sinus Bradycardia: Likely secondary to medications Asymptomatic Carvedilol held Avoid clonidine, beta blockers Appreciate Cardiology Input ECHO as below Diarrhea: H/O C.diff Hold stool softeners Check for C.diff if diarrhea reoccurs HTN: Labile Continue hydralazine increased to 75mg TID continue amlodipine increased to 5mg BID avoid clonidine as able Carvedilol held Consider Nitrates per Cardiology if BP remains uncontrolled ? LALY: Nocturnal Oximetry tonight Sleep study as outpatient DM II: Continue basal Lantus, ISS monitor BGs Chronic Lymphedema: Doppler US lower leg: negative for DVT Morbid Obesity: BMI:58 Counseling provided for weight reduction/exercise/diet modification Diabetic Neuropathy: Continue gabapentin Depression:: Continue SSRI MAGGIE on CKD III: cr baseline: around 1.5 Possible secondary to dehydration/UTI resume Lasix S/P IV fluids monitor renal function Chronic Hyponatremia: resolved IV fluids discontinued Code Status: Full code DVT Px: Heparin SQ Disposition: PT/OT Social service consulted for discharge plan Plan to discharge home with home health once stable PROCEDURES: ECHO: Compared to previous study of 08/30/16: small loculated anterior pericardial effusion without hemodynamic significance is now present. * Normal LV chamber size with moderate concentric LVH. * Normal LV systolic function without regional wall motion abnormality, EF 60 -65%. * Grade II diastolic dysfunction. * Aortic valve sclerosis mild, without significant aortic valvular stenosis. * There is severe mitral annular calcification. Calcified mitral apparatus causing mitral stenosis. There is mild mitral regurgitation. There is mild mitral stenosis. * Small loculated anterior pericardial effusion without hemodynamic significance Vital Signs: Date Time Temp Pulse Resp B/P (MAP) Pulse Ox O2 Delivery O2 Flow Rate FiO2 01/06/18 12:00 Room Air 01/06/18 11:23 36.7 79 18 195/82 (119) 95 Room Air 01/06/18 10:13 80 182/83 (116) 01/06/18 08:30 Room Air 01/06/18 07:44 36.7 79 20 190/75 (113) 92 01/06/18 06:26 77 178/77 (110) 01/06/18 05:10 190/90 (123) 01/06/18 04:00 Room Air 01/06/18 04:00 37.4 83 16 92 Room Air 01/06/18 00:00 Room Air 01/05/18 23:37 36.6 77 20 93 Room Air 01/05/18 23:04 180/85 (116) 01/05/18 20:33 36.5 77 18 170/100 (123) 94 Room Air 01/05/18 20:00 98 Room Air 01/05/18 19:21 170/100 (123) 01/05/18 16:00 98 Room Air 01/05/18 15:44 36.5 64 20 147/77 (100) 98 Room Air Lab Results: Results Past 24 Hours Test 01/05/18 16:48 01/05/18 19:25 01/06/18 07:07 01/06/18 07:27 Range/Units Bedside Glucose 123 122 99 70-90 mg/dl Hemoglobin 10.8 12.0-16.0 g/dL Hematocrit 33.1 37-47 % Sodium Level 140 136-145 mmol/L Potassium Level 4.0 3.5-5.1 mmol/L Chloride Level 109 98-107 mmol/L Carbon Dioxide Level 26 21-32 mmol/L Anion Gap 5.0 3-11 mmol/L Blood Urea Nitrogen 16 7-18 mg/dl Creatinine 1.40 0.60-1.20 mg/dl Est Creatinine Clear Calc Drug Dose 44.0 ml/min Estimated GFR () 43.4 Estimated GFR (Non- 37.4 BUN/Creatinine Ratio 11.5 10-20 Random Glucose 105 70-99 mg/dl Calcium Level 7.9 8.5-10.1 mg/dl Magnesium Level 2.0 1.8-2.4 mg/dl Test 01/06/18 11:31 Range/Units Bedside Glucose 124 70-90 mg/dl
[2018-01-06] MEDS ORDERED: ISOSORBIDE MONONITRATE 60 MG TABCR PO ONE (16:45)
[2018-01-06] MEDS: ACETAMINOPHEN 325 MG TAB PO PRN (18:09)
[2018-01-06] MEDS: CLONAZEPAM 1 MG TAB PO SCH (20:41)
[2018-01-06] MEDS: OXYCODONE/ACETAMINOPHEN 5-325 TAB PO PRN (20:41)
[2018-01-06] MEDS: ROSUVASTATIN CALCIUM 20 MG TAB PO SCH (20:43)
[2018-01-06] MEDS: FENOFIBRATE 145 MG TAB PO SCH (20:43)
[2018-01-06] MEDS: PANTOprazole SOD 40 MG TAB PO SCH (20:44)
[2018-01-07] VITALS (9 sets, daily range): BP systolic 149–194; BP diastolic 67–87; PULSE 71–94; TEMP 36.6–37.2; O2SAT 90–96
[2018-01-07 07:39] LABS: CALCIUM 8.5 mg/dl (8.5-10.1); CREATININE 1.52 mg/dl (0.60-1.20); POTASSIUM 3.7 mmol/L (3.5-5.1)
[2018-01-07] MEDS: GABAPENTIN 300 MG CAP PO SCH ×3 (08:10→20:04)
[2018-01-07] MEDS: CHOLECALCIFEROL 1000 INTER.UNIT TAB PO SCH (08:11)
[2018-01-07] MEDS: ASPIRIN 325 MG ECTAB PO SCH (08:11)
[2018-01-07] MEDS: ISOSORBIDE MONONITRATE 60 MG TABCR PO SCH (08:12)
[2018-01-07] MEDS: RANITIDINE HCL 150 MG TAB PO SCH ×2 (08:13→20:03)
[2018-01-07] MEDS: AMLODIPINE BESYLATE 5 MG TAB PO SCH ×2 (08:13→20:03)
[2018-01-07] MEDS: LACTOBACILLUS ACIDOPHILUS (FLORANEX) TAB PO SCH ×3 (08:13→17:56)
[2018-01-07] MEDS: SERTRALINE HCL 50 MG TAB PO SCH (08:13)
[2018-01-07] MEDS: FUROSEMIDE 40 MG TAB PO SCH (08:14)
[2018-01-07] MEDS: FLUTICASONE PROPIONATE NA SPR 16 GM BTL NAE SCH (08:14)
[2018-01-07] MEDS: CEFTRIAXONE SOD INJ 2000 MG in DEXTROSE 5% 50ML IV SCH (08:14)
[2018-01-07] MEDS: INSULIN ASPART 100 UNITS/ML 3 ML PEN SC SCH ×4 (08:18→20:19)
[2018-01-07] MEDS: INSULIN GLARGINE SOLOSTAR 100 UNITS/ML 3 ML PEN SQ SCH ×2 (08:19→20:19)
[2018-01-07] MEDS: HEPARIN SOD 5000 UNIT/0.5 ML CARP SQ SCH ×2 (08:19→20:20)
--- NOTE | 2018-01-07 10:08 | Cardiology Follow-Up ---
Subjective General Date of Service: January 07, 2018. Chief Complaint: bradycardia; HTN Pt evaluation today including: conversation w/ patient, physical exam, chart review, lab review, review of studies, review of inpatient medication list History of Present Illness Patient feeling well this AM. Anxious for discharge. Denies complaints of chest pain, SOB. No headaches or vision changes. No dizziness. No recurrent bradycardia on telemetry. BP remains elevated despite multiple med adjustments. Nocturnal hypoxia noted, probable underlying LALY. Allergies Coded Allergies: Metformin (Verified Allergy, Intermediate, causes kidney problems, 11/09/17 ) Loratadine (Verified Allergy, Unknown, MOUTH SWELLING, 11/09/17) Sulfamethoxazole w/Trimethoprim (Verified Allergy, Unknown, "ITS BEEN SO LONG, I FORGET", 11/09/17) HMG-CoA-R Inhibitors (Verified Adverse Reaction, Mild, GI UPSET, 11/09/17) ? GI UPSET PER DR PATEL Sulfa Antibiotics (Verified Adverse Reaction, Unknown, NAUSEA, 11/09/17) Social History Smoking Status: Never Smoker Hx Tobacco Use In Past Year?: No Hx Alcohol Use - Type And Amou: No Hx Substance Use - Type And Am: No Problem List Medical Problems: (1) MAGGIE (acute kidney injury) Status: Acute (2) C. difficile enteritis Status: Acute (3) Calcaneal fracture Status: Acute (4) Elevated troponin Status: Acute (5) Fracture of humeral head, closed Status: Acute (6) Leukocytosis Status: Acute (7) Right flank pain Status: Acute (8) UTI (urinary tract infection) Status: Acute Review of Systems Respiratory: No cough, No wheezing, No shortness of breath, No dyspnea on exertion, No dyspnea at rest, No hemoptysis Cardiac: No chest pain, No orthopnea, No PND, No edema, No palpitations Physical Exam Vital Signs Last Vital Signs Documentation Date Time Temp Pulse Resp B/P (MAP) Pulse Ox O2 Delivery O2 Flow Rate FiO2 01/07/18 06:58 37.2 74 16 194/74 (114) 96 Room Air Physical Exam Constitutional: General Apperance: obese Level of Distress: NAD, chronically ill Psychiatric: Mental Status: active & alert Orientation: to time, to place, to person Head: normocephalic Eyes: Pupils: PERRLA Neck: supple Lungs: Respiratory effort: no dyspnea Auscultation: deminished air movement Cardiovascular: Heart Auscultation: RRR, murmur Extremities: edema Assessment and Plan Assessment and Plan 1. bradycardia asymptomatic, incidentally discovered likely due to polypharmacy agents held, HR improving avoid beta blockers currently HR's in the 60's. NSR confirmed on EKG 2. HTN BP remains uncontrolled titrate hydralazine to 100 mg TID nitrates added yesterday add terazosin 1 mg now and 1 mg tonight at bedtime carvedilol and clonidine remain on hold due to bradycardia. HR improved. continue furosemide follows with nephrology as outpatient, deemed not appropriate for WIN/ARB in past 3. Obesity, high probability of LALY nocturnal hypoxia noted. initiate 2L NC while sleeping tonight Case discussed with Dr. Esqueda. Cardiology attending: Pt seen and examined, agree with findings and assessment as per Sandra Romero. Pt remains without cardiac complaint. BP still uncontrolled. Believe that ultimately only intervention that will control it will be treatment for LALY. Still elevated despite above changes. Adding terazosin bid today and hydralazine increased. Will likely require reinstituting clonidine but would prefer to avoid coreg due to bradycardia. Laboratory Results Last 24 Hours Test 01/06/18 11:31 01/06/18 16:41 01/06/18 20:32 01/07/18 06:40 Bedside Glucose 124 mg/dl 176 mg/dl 117 mg/dl Sodium Level 140 mmol/L Potassium Level 3.7 mmol/L Chloride Level 106 mmol/L Carbon Dioxide Level 28 mmol/L Anion Gap 6.0 mmol/L Blood Urea Nitrogen 17 mg/dl Creatinine 1.52 mg/dl Est Creatinine Clear Calc Drug Dose 40.6 ml/min Estimated GFR () 39.3 Estimated GFR (Non- 33.9 BUN/Creatinine Ratio 11.2 Random Glucose 139 mg/dl Calcium Level 8.5 mg/dl Test 01/07/18 07:42 Bedside Glucose 144 mg/dl
[2018-01-07] MEDS: ACETAMINOPHEN 325 MG TAB PO PRN ×2 (10:21→20:35)
[2018-01-07] MEDS: LIDODERM (LIDOCAINE) PATCH 5% TD SCH (10:22)
[2018-01-07] MEDS: OXYCODONE/ACETAMINOPHEN 5-325 TAB PO PRN ×2 (11:04→23:27)
--- NOTE | 2018-01-07 17:09 | Progress Note ---
Internal Med Progress Note Date of Service: January 07, 2018. Provider Documentation: SUBJECTIVE: Seen and examined at bedside States not feeling well today Eager to get discharged Feels nauseous but no vomiting Hydralazine dose adjusted again today Also added Terazosin back pain improved Denies chest pain, SOB, dizziness, abd pain No other complaints OBJECTIVE: Vital Signs-as noted below Physical Exam: General Appearance:Obese, no apparent distress Head: normocephalic, Atraumatic Eyes: normal inspection, EOMI, PERRL Neck: supple, Trachea midline Respiratory/Chest: Normal breath sounds, CTA Cardiovascular: S1, S2, No murmur Abdomen/GI:Soft, Non tender, Bowel sounds present Extremities/Musculoskelatal:normal inspection, +Lymphedema Neurologic/Psych:AAOX3, grossly no focal neurological deficits Skin: normal color, warm Lab data as noted below. ASSESSMENT & PLAN: Patient is a 72 yr female with PMH of DM II, hypertension, CKD stage III, chronic hyponatremia, recurrent UTIs Presented with right flank pain. Right flank pain likely Musculoskeletal H/O chronic low back pain secondary to lumbar degenerative disease CT abdomen pelvis shows no evidence of stone/no pyelonephritis X-ray of lumbar spine: No acute fracture or subluxation. Dextroscoliosis with multilevel degenerative changes as above. Continue Lidoderm patch and Flexeril Patient uses oxycodone PRN at home PT/OT Continued to improve UTI: H/O complicated UTI / ESBL E.coli Urine culture:E coli and Klebsiella Ertapenem changed to Ceftriaxone: to complete tomorrow Appreciate ID Input Sinus Bradycardia: Likely secondary to medications Asymptomatic Carvedilol held Avoid clonidine, beta blockers Appreciate Cardiology Input ECHO as below Diarrhea: H/O C.diff Hold stool softeners Check for C.diff if diarrhea reoccurs HTN: Labile Continue hydralazine increased to 100mg TID continue amlodipine increased to 5mg BID Added Terazosin, Nitrate avoid clonidine as able Carvedilol held Consider Nitrates per Cardiology if BP remains uncontrolled ? LALY: Nocturnal Oximetry: qualifies for Nocturnal Oxygen Sleep study as outpatient Use Oxygen Q HS DM II: Continue basal Lantus, ISS monitor BGs Chronic Lymphedema: Doppler US lower leg: negative for DVT Morbid Obesity: BMI:58 Counseling provided for weight reduction/exercise/diet modification Diabetic Neuropathy: Continue gabapentin Depression:: Continue SSRI MAGGIE on CKD III: cr baseline: around 1.5 Possible secondary to dehydration/UTI resumed Lasix S/P IV fluids monitor renal function Chronic Hyponatremia: resolved IV fluids discontinued Code Status: Full code DVT Px: Heparin SQ Disposition: PT/OT Social service consulted for discharge plan Plan to discharge home with home health once stable PROCEDURES: ECHO: Compared to previous study of 08/30/16: small loculated anterior pericardial effusion without hemodynamic significance is now present. * Normal LV chamber size with moderate concentric LVH. * Normal LV systolic function without regional wall motion abnormality, EF 60 -65%. * Grade II diastolic dysfunction. * Aortic valve sclerosis mild, without significant aortic valvular stenosis. * There is severe mitral annular calcification. Calcified mitral apparatus causing mitral stenosis. There is mild mitral regurgitation. There is mild mitral stenosis. * Small loculated anterior pericardial effusion without hemodynamic significance Vital Signs: Date Time Temp Pulse Resp B/P (MAP) Pulse Ox O2 Delivery O2 Flow Rate FiO2 01/07/18 15:57 Room Air 01/07/18 15:32 36.9 93 18 149/76 (100) 90 01/07/18 12:07 Room Air 01/07/18 11:51 36.9 94 18 176/68 (104) 93 Room Air 01/07/18 10:15 188/81 (116) 01/07/18 08:00 Room Air 01/07/18 06:58 37.2 74 16 194/74 (114) 96 Room Air 01/07/18 04:00 Room Air 01/07/18 03:42 36.8 71 18 172/71 (104) 93 Room Air 01/07/18 00:00 Room Air 01/06/18 23:08 36.8 76 18 183/69 (107) 94 Room Air 01/06/18 21:44 Room Air 01/06/18 20:00 Room Air 01/06/18 19:05 36.8 76 18 193/73 (113) 93 Room Air 164/75 (104) Lab Results: Results Past 24 Hours Test 01/06/18 20:32 01/07/18 06:40 01/07/18 07:42 01/07/18 11:29 Range/Units Bedside Glucose 117 144 255 70-90 mg/dl Sodium Level 140 136-145 mmol/L Potassium Level 3.7 3.5-5.1 mmol/L Chloride Level 106 98-107 mmol/L Carbon Dioxide Level 28 21-32 mmol/L Anion Gap 6.0 3-11 mmol/L Blood Urea Nitrogen 17 7-18 mg/dl Creatinine 1.52 0.60-1.20 mg/dl Est Creatinine Clear Calc Drug Dose 40.6 ml/min Estimated GFR () 39.3 Estimated GFR (Non- 33.9 BUN/Creatinine Ratio 11.2 10-20 Random Glucose 139 70-99 mg/dl Calcium Level 8.5 8.5-10.1 mg/dl Test 01/07/18 16:24 Range/Units
--- NOTE | 2018-01-07 17:41 | Infectious Disease Progress Nt ---
Progress Note Date of Service January 07, 2018. Subjective Pt evaluation today including: conversation w/ patient, physical exam, chart review, lab review, review of studies, conversation w/ residential sales consultant, review of inpatient medication list Having slight amount of nausea, otherwise feeling much better, pain significantly improved. No fever. All Other Systems: Reviewed and Negative Medications Current Inpatient Medications Medications (Trade) Dose Ordered Sig/Hansel Route Start Time Stop Time Status Last Admin Dose Admin Aspirin (Ecotrin Tab) 325 mg QAM PO 01/02/18 09:00 02/01/18 08:59 01/07/18 08:11 325 MG Cholecalciferol (Vitamin D Tab) 1,000 inter.unit DAILY PO 01/02/18 09:00 02/01/18 08:59 01/07/18 08:11 1,000 INTER.UNIT Clonazepam (Klonopin Tab) 1 mg HS PO 01/01/18 21:00 01/31/18 20:59 01/06/18 20:41 1 MG Fenofibrate (Tricor Tab) 145 mg QPM PO 01/01/18 21:00 01/31/18 20:59 01/06/18 20:43 145 MG Fluticasone Propionate (Flonase Nasal [place]) 1 sprays DAILY ANSELMO 01/02/18 09:00 02/01/18 08:59 01/07/18 08:14 1 SPRAYS Gabapentin (Neurontin Cap) 300 mg DAILY@1400 PO 01/02/18 14:00 02/01/18 13:59 01/07/18 13:51 300 MG Gabapentin (Neurontin Cap) 600 mg BID PO 01/01/18 21:00 01/31/18 20:59 01/07/18 08:10 600 MG Insulin Glargine (Lantus Solostar Pen) 20 units BID SQ 01/01/18 21:00 01/31/18 20:59 01/07/18 08:19 20 UNITS Lactobacillus Acidophilus (Floranex Tab) 1 tab TIDM PO 01/02/18 08:00 02/01/18 07:59 01/07/18 12:15 1 TAB Nitroglycerin (Nitrostat Tab) 0.4 mg PRN UT 01/01/18 21:00 01/31/18 20:59 Pantoprazole Sodium (Protonix Tab) 40 mg QPM PO 01/01/18 21:00 6/4/18 20:59 01/06/18 20:44 40 MG Ranitidine HCl (zANTac TAB) 150 mg BID PO 01/01/18 21:00 01/31/18 20:59 01/07/18 08:13 150 MG Rosuvastatin Calcium (Crestor Tab) 40 mg QPM PO 01/01/18 21:00 01/31/18 20:59 01/06/18 20:43 40 MG Sertraline HCl (Zoloft Tab) 50 mg QAM PO 01/02/18 09:00 02/01/18 08:59 01/07/18 08:13 50 MG Topiramate (Topamax Tab) 25 mg BID PO 01/01/18 21:00 01/31/18 20:59 Future hold 01/02/18 08:01 25 MG Acetaminophen (Tylenol Tab) 650 mg Q4H PRN PO 01/01/18 21:15 01/31/18 21:14 01/07/18 10:21 650 MG Al Hydrox/Mg Hydrox/Simethicone (Maalox Max Susp) 15 ml Q4H PRN PO 01/01/18 21:15 01/31/18 21:14 Magnesium Hydroxide (Milk Of Magnesia Susp) 30 ml Q6H PRN PO 01/01/18 21:15 01/31/18 21:14 Ondansetron HCl (Zofran Inj) 4 mg Q6H PRN IV 01/01/18 21:15 01/31/18 21:14 01/05/18 15:30 4 MG Heparin Sodium (Porcine) (Heparin Sq 5000 Unit/0.5ml) 5,000 unit Q12H SQ 01/02/18 09:00 02/01/18 08:59 01/07/18 08:19 5,000 UNIT Insulin Aspart (novoLOG ASPART) SLIDING SCALE If C... ACHS SC 01/02/18 06:30 02/01/18 06:29 01/07/18 12:14 7 UNITS Glucose (Glucose 40% Gel) 15-30 GRAMS 15 GRAMS... UD PRN PO 01/01/18 21:15 01/31/18 21:14 Glucose (Glucose Chew Tab) 4-8 Tablets 4 Tabl... UD PRN PO 01/01/18 21:15 01/31/18 21:14 Dextrose (Dextrose 50% 50ML Syringe) 25-50ML 25ML FOR ... UD PRN IV 01/01/18 21:15 01/31/18 21:14 Glucagon (Glucagon Inj) 1 mg UD PRN SQ 01/01/18 21:15 01/31/18 21:14 Carbohydrates (Carbohydrates For Hypoglycemia) 15-30 GRAMS 15 grams if BSG 54-69... UD PRN PO 01/01/18 21:15 01/31/18 21:14 Oxycodone/ Acetaminophen (Percocet 5-325mg Tab) 2 tab Q12 PRN PO 01/01/18 23:00 01/15/18 20:59 01/07/18 11:04 2 TAB Senna (Senokot Tab) 17.2 mg QAM PO 01/02/18 09:00 02/01/18 08:59 Future Hold 01/04/18 08:14 17.2 MG Polyethylene (Miralax Powder Packet) 17 gm DAILY PO 01/02/18 09:00 01/31/18 21:14 Future Hold 01/03/18 09:00 17 GM Clonidine HCl (Catapres Tab) 0.2 mg TID PO 01/02/18 09:00 01/31/18 20:59 Future Hold 01/02/18 08:01 0.2 MG Lidocaine (Lidoderm Patch 5%) 1 patch QAM TD 01/03/18 09:00 02/02/18 08:59 01/06/18 08:13 1 PATCH Miscellaneous (Remove Lidoderm Patch) 1 ea DAILY@21 N/A 01/02/18 21:00 02/01/18 20:59 01/06/18 20:49 1 EA Cyclobenzaprine HCl (Flexeril Tab) 5 mg BID PRN PO 01/02/18 11:00 02/01/18 10:59 01/06/18 08:13 5 MG Miconazole Nitrate (Desenex Powder) 1 appln PRN PRN EXT 01/02/18 14:30 02/01/18 14:29 01/04/18 21:21 1 APPLN Miscellaneous Information 1 ea UD PRN N/A 01/03/18 08:45 6/6/18 08:44 Ceftriaxone Sodium 2000 mg/ Dextrose 70 ml @ 140 mls/hr Q24H IV 01/03/18 09:00 01/08/18 11:00 01/07/18 08:14 140 MLS/HR Amlodipine Besylate (Norvasc Tab) 5 mg BID PO 01/05/18 21:00 02/03/18 08:59 01/07/18 08:13 5 MG Furosemide (Lasix Tab) 40 mg QAM PO 01/07/18 09:00 02/06/18 08:59 01/07/18 08:14 40 MG Isosorbide Mononitrate (Imdur Ext Rel Tab) 60 mg QAM PO 01/07/18 09:00 02/06/18 08:59 01/07/18 08:12 60 MG Hydralazine HCl (Apresoline Tab) 100 mg TID PO 01/07/18 14:00 02/05/18 13:59 01/07/18 13:52 100 MG Terazosin HCl (Hytrin Cap) 1 mg HS PO 01/07/18 21:00 02/06/18 20:59 Objective Vital Signs Date Time Temp Pulse Resp B/P (MAP) Pulse Ox O2 Delivery O2 Flow Rate FiO2 01/07/18 15:57 Room Air 01/07/18 15:32 36.9 93 18 149/76 (100) 90 01/07/18 12:07 Room Air 01/07/18 11:51 36.9 94 18 176/68 (104) 93 Room Air 01/07/18 10:15 188/81 (116) 01/07/18 08:00 Room Air 01/07/18 06:58 37.2 74 16 194/74 (114) 96 Room Air 01/07/18 04:00 Room Air 01/07/18 03:42 36.8 71 18 172/71 (104) 93 Room Air 01/07/18 00:00 Room Air 01/06/18 23:08 36.8 76 18 183/69 (107) 94 Room Air 01/06/18 21:44 Room Air 01/06/18 20:00 Room Air 01/06/18 19:05 36.8 76 18 193/73 (113) 93 Room Air 164/75 (104) Physical Exam General Appearance: WD/WN, no apparent distress Eyes: normal inspection, EOMI, sclerae normal ENT: normal ENT inspection, pharynx normal Neck: supple, no adenopathy, thyroid normal, trachea midline Respiratory/Chest: chest non-tender, lungs clear, normal breath sounds, no respiratory distress Cardiovascular: regular rate, rhythm, no gallop, no murmur Abdomen: normal bowel sounds, non tender, soft, no organomegaly Extremities: non-tender, no calf tenderness, normal capillary refill Neurologic/Psychiatric: alert, oriented x 3 Skin: normal color, warm/dry, no rash Lymphatic: no adenopathy Laboratory Results Last 24 Hours Test 01/06/18 20:32 01/07/18 06:40 01/07/18 07:42 01/07/18 11:29 Bedside Glucose 117 mg/dl 144 mg/dl 255 mg/dl Sodium Level 140 mmol/L Potassium Level 3.7 mmol/L Chloride Level 106 mmol/L Carbon Dioxide Level 28 mmol/L Anion Gap 6.0 mmol/L Blood Urea Nitrogen 17 mg/dl Creatinine 1.52 mg/dl Est Creatinine Clear Calc Drug Dose 40.6 ml/min Estimated GFR () 39.3 Estimated GFR (Non- 33.9 BUN/Creatinine Ratio 11.2 Random Glucose 139 mg/dl Calcium Level 8.5 mg/dl Test 01/07/18 16:24 Bedside Glucose 202 mg/dl Assessment and Plan 72-year-old female with diabetes, hypertension, chronic lower extremity lymphedema, who presents with severe back and right flank pain, without evidence of pyelonephritis or significant urinary tract infection on CT scan, but abnormal urinalysis and positive urine culture for line Klebsiella. Patient to be treated with IV ceftriaxone, transition to oral cefdinir 300 mg bid for 7 more days tomorrow.
[2018-01-07] MEDS: CLONAZEPAM 1 MG TAB PO SCH (19:59)
[2018-01-07] MEDS: ROSUVASTATIN CALCIUM 20 MG TAB PO SCH (20:03)
[2018-01-07] MEDS: FENOFIBRATE 145 MG TAB PO SCH (20:03)
[2018-01-07] MEDS: PANTOprazole SOD 40 MG TAB PO SCH (20:35)
[2018-01-07] MEDS: TOPIRAMATE 25 MG TAB PO SCH (22:10)
[2018-01-08] VITALS (10 sets, daily range): BP systolic 113–198; BP diastolic 65–89; PULSE 66–101; TEMP 36.3–37; O2SAT 91–96
[2018-01-08] MEDS ORDERED: HydrALAZINE HCL 20 MG/ML VIAL IV. ONE (05:15)
[2018-01-08] MEDS: ONDANSETRON INJ 2 MG/ML 2 ML VIAL IV PRN (06:33)
[2018-01-08 07:04] LABS: HEMATOCRIT 31.6 % (37-47); HEMOGLOBIN 10.6 g/dL (12.0-16.0); MEAN CELL VOLUME 87.3 fL (80-100); MEAN CORPUSCULAR HEMOGLOBIN 29.3 pg (25-34); MEAN CORPUSCULAR HGB CONC 33.5 g/dl (32-36); PLATELET COUNT 206 K/uL (130-400); RED CELL DISTRIBUTION WIDTH CV 14.7 % (11.5-14.5); RED CELL DISTRIBUTION WIDTH SD 47.1 fL (36.4-46.3); WHITE BLOOD COUNT 7.13 K/uL (4.8-10.8)
[2018-01-08 07:24] LABS: CALCIUM 8.3 mg/dl (8.5-10.1); CREATININE 1.7 mg/dl (0.60-1.20); POTASSIUM 3.4 mmol/L (3.5-5.1)
[2018-01-08] MEDS ORDERED: POTASSIUM CHLORIDE 10 MEQ TABCR PO ONE (07:45)
[2018-01-08] MEDS: FLUTICASONE PROPIONATE NA SPR 16 GM BTL NAE SCH (08:14)
[2018-01-08] MEDS: RANITIDINE HCL 150 MG TAB PO SCH (08:15)
[2018-01-08] MEDS: GABAPENTIN 300 MG CAP PO SCH (08:15)
[2018-01-08] MEDS: CHOLECALCIFEROL 1000 INTER.UNIT TAB PO SCH (08:15)
[2018-01-08] MEDS: LIDODERM (LIDOCAINE) PATCH 5% TD SCH (08:15)
[2018-01-08] MEDS: FUROSEMIDE 40 MG TAB PO SCH (08:16)
[2018-01-08] MEDS: ASPIRIN 325 MG ECTAB PO SCH (08:17)
[2018-01-08] MEDS: TOPIRAMATE 25 MG TAB PO SCH (08:17)
[2018-01-08] MEDS: AMLODIPINE BESYLATE 5 MG TAB PO SCH (08:17)
[2018-01-08] MEDS: HEPARIN SOD 5000 UNIT/0.5 ML CARP SQ SCH (08:22)
[2018-01-08] MEDS: INSULIN ASPART 100 UNITS/ML 3 ML PEN SC SCH ×2 (08:23→12:06)
[2018-01-08] MEDS: LACTOBACILLUS ACIDOPHILUS (FLORANEX) TAB PO SCH ×2 (08:45→12:00)
[2018-01-08] MEDS: ISOSORBIDE MONONITRATE 60 MG TABCR PO SCH (08:45)
[2018-01-08] MEDS: SERTRALINE HCL 50 MG TAB PO SCH (08:45)
[2018-01-08] MEDS: INSULIN GLARGINE SOLOSTAR 100 UNITS/ML 3 ML PEN SQ SCH (08:48)
[2018-01-08] MEDS ORDERED: CEFDINIR 300 MG CAP PO SCH (09:00)
--- NOTE | 2018-01-08 10:58 | Progress Note ---
Internal Med Progress Note Date of Service: January 08, 2018. Provider Documentation: SUBJECTIVE: Seen and examined at bedside Eager to get discharged BP is better Denies back pain Denies chest pain, SOB, dizziness, abd pain No other complaints OBJECTIVE: Vital Signs-as noted below Physical Exam: General Appearance:Obese, no apparent distress Head: normocephalic, Atraumatic Eyes: normal inspection, EOMI, PERRL Neck: supple, Trachea midline Respiratory/Chest: Normal breath sounds, CTA Cardiovascular: S1, S2, No murmur Abdomen/GI:Soft, Non tender, Bowel sounds present Extremities/Musculoskelatal:normal inspection, +Lymphedema Neurologic/Psych:AAOX3, grossly no focal neurological deficits Skin: normal color, warm Lab data as noted below. ASSESSMENT & PLAN: Patient is a 72 yr female with PMH of DM II, hypertension, CKD stage III, chronic hyponatremia, recurrent UTIs Presented with right flank pain. Right flank pain likely Musculoskeletal H/O chronic low back pain secondary to lumbar degenerative disease CT abdomen pelvis shows no evidence of stone/no pyelonephritis X-ray of lumbar spine: No acute fracture or subluxation. Dextroscoliosis with multilevel degenerative changes as above. Continue Lidoderm patch and Flexeril Patient uses oxycodone PRN at home PT/OT Continued to improve UTI: H/O complicated UTI / ESBL E.coli Urine culture:E coli and Klebsiella Ertapenem changed to Ceftriaxone>>>Transitioned to Omnicef Appreciate ID Input Sinus Bradycardia: Likely secondary to medications Asymptomatic Carvedilol discontinued Avoid clonidine, beta blockers Appreciate Cardiology Input ECHO as below Diarrhea:Resolved H/O C.diff Hold stool softeners Check for C.diff if diarrhea reoccurs HTN: Labile Continue hydralazine increased to 100mg TID continue amlodipine increased to 5mg BID Added Terazosin, Nitrate avoid clonidine as able Carvedilol held BP better continue current meds ? LALY: Nocturnal Oximetry: qualifies for Nocturnal Oxygen Sleep study as outpatient Use Oxygen Q HS DM II: Continue basal Lantus, ISS monitor BGs Chronic Lymphedema: Doppler US lower leg: negative for DVT Morbid Obesity: BMI:58 Counseling provided for weight reduction/exercise/diet modification Diabetic Neuropathy: Continue gabapentin Depression:: Continue SSRI MAGGIE on CKD III: cr baseline: around 1.5 Possible secondary to dehydration/UTI resumed Lasix S/P IV fluids monitor renal function Chronic Hyponatremia: resolved IV fluids discontinued Code Status: Full code DVT Px: Heparin SQ Disposition: Plan to discharge home with home health today Follow up with your PCP on 01/11/18 at 10:40AM Follow up with Cardiology Sandra Hazel PA-C on 02/04/18 at 2:45pm Complete the antibiotic course as prescribed Get sleep study as outpatient Use 2 liters oxygen at bedtime as advised Your Blood pressure medications Clonidine and Coreg are discontinued Your Hydralazine was increased to 100mg TID, also started on Imdur, Terazosin Seek immediate medical attention if your symptoms reoccur or worsen PROCEDURES: ECHO: Compared to previous study of 08/30/16: small loculated anterior pericardial effusion without hemodynamic significance is now present. * Normal LV chamber size with moderate concentric LVH. * Normal LV systolic function without regional wall motion abnormality, EF 60 -65%. * Grade II diastolic dysfunction. * Aortic valve sclerosis mild, without significant aortic valvular stenosis. * There is severe mitral annular calcification. Calcified mitral apparatus causing mitral stenosis. There is mild mitral regurgitation. There is mild mitral stenosis. * Small loculated anterior pericardial effusion without hemodynamic significance Vital Signs: Date Time Temp Pulse Resp B/P (MAP) Pulse Ox O2 Delivery O2 Flow Rate FiO2 01/08/18 10:24 91 Room Air 01/08/18 07:23 36.7 90 20 131/65 (87) 91 Room Air 01/08/18 07:16 36.3 101 20 113/72 (86) 96 Room Air 01/08/18 05:54 91 137/ (45) 01/08/18 05:00 89 175/72 (106) 01/08/18 04:38 85 167/ (55) 01/08/18 04:00 Nasal Cannula 2.0 01/08/18 03:52 87 183/71 (108) 01/08/18 03:40 37.0 92 18 198/89 (125) 91 Nasal Cannula 2.0 01/08/18 00:00 Nasal Cannula 2.0 01/07/18 23:25 36.6 84 18 166/67 (100) 91 Room Air 01/07/18 21:50 167/69 (101) 01/07/18 20:00 90 Room Air 01/07/18 19:01 36.8 88 16 189/87 (121) 90 Room Air 01/07/18 15:57 Room Air 01/07/18 15:32 36.9 93 18 149/76 (100) 90 01/07/18 12:07 Room Air 01/07/18 11:51 36.9 94 18 176/68 (104) 93 Room Air Lab Results: Results Past 24 Hours Test 01/07/18 11:29 01/07/18 16:24 01/07/18 19:57 01/08/18 06:50 Range/Units Bedside Glucose 255 202 204 70-90 mg/dl White Blood Count 7.13 4.8-10.8 K/uL Red Blood Count 3.62 4.2-5.4 M/uL Hemoglobin 10.6 12.0-16.0 g/dL Hematocrit 31.6 37-47 % Mean Corpuscular Volume 87.3 80-100 fL Mean Corpuscular Hemoglobin 29.3 25-34 pg Mean Corpuscular Hemoglobin Concent 33.5 32-36 g/dl RDW Standard Deviation 47.1 36.4-46.3 fL RDW Coefficient of Variation 14.7 11.5-14.5 % Platelet Count 206 130-400 K/uL Mean Platelet Volume 9.0 7.4-10.4 fL Sodium Level 139 136-145 mmol/L Potassium Level 3.4 3.5-5.1 mmol/L Chloride Level 106 98-107 mmol/L Carbon Dioxide Level 26 21-32 mmol/L Anion Gap 7.0 3-11 mmol/L Blood Urea Nitrogen 18 7-18 mg/dl Creatinine 1.70 0.60-1.20 mg/dl Est Creatinine Clear Calc Drug Dose 35.8 ml/min Estimated GFR () 34.3 Estimated GFR (Non- 29.6 BUN/Creatinine Ratio 10.6 10-20 Random Glucose 174 70-99 mg/dl Calcium Level 8.3 8.5-10.1 mg/dl Test 01/08/18 07:20 Range/Units Bedside Glucose 171 70-90 mg/dl
[2018-01-08] MEDS ORDERED: HYT1 PO (11:08)
[2018-01-08] MEDS ORDERED: CEFD300C3 PO (11:08)
[2018-01-08] MEDS ORDERED: OXGN (11:08)
[2018-01-08] MEDS ORDERED: IMDSR60 PO (11:08)
[2018-01-08] MEDS ORDERED: HYDR-4717 PO (11:08)
--- NOTE | 2018-01-08 11:13 | Discharge Summary ---
Discharge Summary Date of Service January 08, 2018. Discharge Summary Admission Date: January 01, 2018 at 19:30 Discharge Date: January 08, 2018 Discharge Disposition: Home with services Principal Diagnosis: UTI, HTN, Hypoxia Procedures: CT ABD: 1. No acute intra-abdominal pathology. No evidence of nephrolithiasis or hydronephrosis. No CT evidence of cystitis, which does not exclude the diagnosis. 2. Mildly prominent bilateral external iliac lymph nodes, possibly reactive. 3. Mosaic attenuation at the lung bases suggest small airways disease. 4. Cardiomegaly. Lumbar X ray: 1. No acute fracture or subluxation. 2. Dextroscoliosis with multilevel degenerative changes as above. Venous Doppler: No definite DVT within the visualized right or left lower extremity. CXR: Cardiomegaly with volume overload. No kalie pulmonary edema. Image quality is degraded by portable technique and body habitus limiting diagnostic sensitivity. ECHO: Compared to previous study of 08/30/16: small loculated anterior pericardial effusion without hemodynamic significance is now present. * Normal LV chamber size with moderate concentric LVH. * Normal LV systolic function without regional wall motion abnormality, EF 60 -65%. * Grade II diastolic dysfunction. * Aortic valve sclerosis mild, without significant aortic valvular stenosis. * There is severe mitral annular calcification. Calcified mitral apparatus causing mitral stenosis. There is mild mitral regurgitation. There is mild mitral stenosis. * Small loculated anterior pericardial effusion without hemodynamic significance Consultations: Cardiology, ID Pending Studies/Follow-Up: Follow up with your PCP on 01/11/18 at 10:40AM Follow up with Cardiology Sandra Hazel PA-C on 02/04/18 at 2:45pm Complete the antibiotic course as prescribed Get sleep study as outpatient Use 2 liters oxygen at bedtime as advised Your Blood pressure medications Clonidine and Coreg are discontinued Your Hydralazine was increased to 100mg TID, you were also started on Imdur, Terazosin for blood pressure control Seek immediate medical attention if your symptoms reoccur or worsen Medication Reconciliation New Medications: Home O2 Therapy (Oxygen) Gas 2 LITERS NA HS for 30 Days, #1 EA Diagnosis: Hypoxia Cefdinir (Cefdinir) 300 Mg Cap 300 MG PO BID for 7 Days, #14 CAP Isosorbide Mononitrate (Isosorbide Mononitrate ER) 60 Mg Tab 60 MG PO QAM for 30 Days, #30 TAB 1 Refill Terazosin HCl (Terazosin HCl) 1 Mg Cap 1 MG PO HS for 30 Days, #30 CAP 1 Refill Changed Medications: Hydralazine Hcl (Apresoline) 50 Mg Tab 100 MG PO TID for 30 Days, #180 TAB (Changed from: 50 MG) Continued Medications: Amlodipine (Norvasc) 10 Mg Tab 10 MG PO QAM, TAB Aspirin (Aspirin Ec) 325 Mg Tab 325 MG PO QAM Betamethasone Hilary (Valisone 0.1% Oint) 45 Appln/15 Gm Oint 1 DOSE EXT DIRECTED PRN for PRN Cholecalciferol (Vitamin D) 1,000 Unit Tab 1000 UNITS PO DAILY Clonazepam (Klonopin) 1 Mg Tab 1 MG PO HS, TAB Estradiol Vaginal (Estrace) 0.1 Mg/Gm Cre 1 DOSE PV 3XWK Fenofibrate (Tricor) 145 Mg Tab 145 MG PO QPM, TAB Fluticasone Propionate (Nasal) (Flonase Allergy Relief) 50 Mcg/Act Spr 1 SPRAY ANSELMO DAILY Furosemide (Lasix) 40 Mg Tab 40 MG PO BID PRN for EDEMA, TAB Gabapentin (Neurontin) 300 Mg Cap 600 MG PO BID, CAP TAKE 2 TABS AM/PM Gabapentin (Neurontin) 300 Mg Cap 300 MG PO DAILY@MIDDAY, CAP Insulin Glargine (Lantus) 100 Unit/Ml Inj 20 UNITS SQ BID, VIAL Insulin Lispro (Human) (Humalog Kwikpen) 100 Unit/Ml Inj 10 UNITS SQ TID Lactobacillus Acidophilus (Lactinex) Tab 1 TAB PO TIDM, TAB Metolazone (Zaroxolyn) 5 Mg Tab 5 MG PO WEEKLY, TAB Nitroglycerin (Nitrostat) 0.4 Mg Tab 0.4 MG UT PRN, BTL NEEDED FOR CHEST PAIN : ONE TABLET UNDER THE TONGUE EVERY 5 MINUTES, UP TO 3 DOSES. Nystatin/Triamcinolone (Mycolog ||) Cr 1 DOSE EXT DIRECTED PRN for PRN Oxycodone/Acetaminophen 5MG/325MG (Percocet 5MG/325MG) Tab 1-2 TABLETS PO Q4H PRN for Pain, TAB PAIN Pantoprazole (Protonix) 40 Mg Tab 40 MG PO QPM, TAB Ranitidine (Zantac) 150 Mg Tab 150 MG PO BID, TAB Rosuvastatin Calcium (Crestor) 40 Mg Tab 40 MG PO QPM, TAB Sertraline (Zoloft) 50 Mg Tab 50 MG PO QAM, TAB Topiramate (Topamax ) 25 Mg Tab 25 MG PO BID, TAB Triamcinolone Acet (Aristocort 0.1%) 90 Appln/30 Gm Cr 1 DOSE EXT DIRECTED PRN for PRN Discontinued Medications: Amoxicillin (Amoxil) 500 Mg Cap 500 MG PO QAM, CAP Carvedilol (Coreg) 12.5 Mg Tab 12.5 MG PO BID, TAB Clonidine Hcl (Catapres) 0.2 Mg Tab 0.2 MG PO BID, TAB Admission Information HPI (per Admitting provider): This is a 72-year-old female, with past medical history of CKD stage III, GERD, hyperlipidemia, hypertension, chronic hyponatremia, insulin-dependent type 2 diabetes Presented to ER with complaint of right flank pain for the last 4-5 Patient reports of sharp pain with spasm mild improvement with heating pad Has increased frequency of urination, no burning sensation during urination No fever or chills No nausea, vomiting or diarrhea Patient has a prior history of complicated UTI/[id number] E. coli ESBL This time urinary discomfort right flank pain is worse than her prior urinary tract infection episode Physical Exam (per Admitting): General Appearance: no apparent distress Head: normocephalic, atraumatic Eyes: normal inspection, PERRL, EOMI, sclerae normal Neck: supple, thyroid normal, no carotid bruits, trachea midline Respiratory/Chest: chest non-tender, lungs clear, normal breath sounds, no respiratory distress Cardiovascular: regular rate, rhythm, no edema, normal peripheral pulses Abdomen/GI: normal bowel sounds, non tender, soft, + pertinent finding ( Right flank pain) Back: + right CVA tenderness Extremities/Musculoskelatal: + pedal edema (Bilateral 2-3+ ankle and pedal edema, chronic venous stasis changes/no open wounds, no erythema no increased warmth, no sign of infection) Neurologic/Psych: no motor/sensory deficits, alert, oriented x 3 Skin: + pertinent finding (Bilateral lower extremity chronic venous stasis change) Hospital Course Patient is a 72 yr female with PMH of DM II, hypertension, CKD stage III, chronic hyponatremia, recurrent UTIs Presented with right flank pain. Right flank pain likely Musculoskeletal H/O chronic low back pain secondary to lumbar degenerative disease CT abdomen pelvis shows no evidence of stone/no pyelonephritis X-ray of lumbar spine: No acute fracture or subluxation. Dextroscoliosis with multilevel degenerative changes as above. Continue Lidoderm patch and Flexeril Patient uses oxycodone PRN at home PT/OT Continued to improve UTI: H/O complicated UTI / ESBL E.coli Urine culture:E coli and Klebsiella Ertapenem changed to Ceftriaxone>>>Transitioned to Omnicef Appreciate ID Input Sinus Bradycardia: Likely secondary to medications Asymptomatic Carvedilol discontinued Avoid clonidine, beta blockers Appreciate Cardiology Input ECHO as below Diarrhea:Resolved H/O C.diff Hold stool softeners Check for C.diff if diarrhea reoccurs HTN: Labile Continue hydralazine increased to 100mg TID continue amlodipine increased to 5mg BID Added Terazosin, Nitrate avoid clonidine as able Carvedilol held BP better continue current meds ? LALY: Nocturnal Oximetry: qualifies for Nocturnal Oxygen Sleep study as outpatient Use Oxygen Q HS DM II: Continue basal Lantus, ISS monitor BGs Chronic Lymphedema: Doppler US lower leg: negative for DVT Morbid Obesity: BMI:58 Counseling provided for weight reduction/exercise/diet modification Diabetic Neuropathy: Continue gabapentin Depression:: Continue SSRI MAGGIE on CKD III: cr baseline: around 1.5 Possible secondary to dehydration/UTI resumed Lasix S/P IV fluids monitor renal function Chronic Hyponatremia: resolved IV fluids discontinued Code Status: Full code DVT Px: Heparin SQ Disposition: Plan to discharge home with home health today Follow up with your PCP on 01/11/18 at 10:40AM Follow up with Cardiology Sandra Hazel PA-C on 02/04/18 at 2:45pm Complete the antibiotic course as prescribed Get sleep study as outpatient Use 2 liters oxygen at bedtime as advised Your Blood pressure medications Clonidine and Coreg are discontinued Your Hydralazine was increased to 100mg TID, also started on Imdur, Terazosin Seek immediate medical attention if your symptoms reoccur or worsen PROCEDURES: ECHO: Compared to previous study of 08/30/16: small loculated anterior pericardial effusion without hemodynamic significance is now present. * Normal LV chamber size with moderate concentric LVH. * Normal LV systolic function without regional wall motion abnormality, EF 60 -65%. * Grade II diastolic dysfunction. * Aortic valve sclerosis mild, without significant aortic valvular stenosis. * There is severe mitral annular calcification. Calcified mitral apparatus causing mitral stenosis. There is mild mitral regurgitation. There is mild mitral stenosis. * Small loculated anterior pericardial effusion without hemodynamic significance Total time spent on discharge = 36 minutes This includes examination of the patient, discharge planning, medication reconciliation, and communication with other providers. Discharge Instructions Discharge Instructions Date of Service January 08, 2018. Admission Reason for Admission: Hyponatremia, Right Flank Pain, Uti Discharge Discharge Diagnosis / Problem: UTI, HTN, Hypoxia Discharge Goals Goal(s): Decrease discomfort, Improve function Activity Recommendations Activity Limitations: resume your previous activity Exercise/Sports Limitations: as tolerated . Instructions / Follow-Up Instructions / Follow-Up Follow up with your PCP on 01/11/18 at 10:40AM Follow up with Cardiology Sandra Hazel PA-C on 02/04/18 at 2:45pm Complete the antibiotic course as prescribed Get sleep study as outpatient Use 2 liters oxygen at bedtime as advised Your Blood pressure medications Clonidine and Coreg are discontinued Your Hydralazine was increased to 100mg TID, you were also started on Imdur, Terazosin for blood pressure control Seek immediate medical attention if your symptoms reoccur or worsen Current Hospital Diet Patient's current hospital diet: Diabetes Type 2 Diet, AHA Diet (Heart Healthy) Discharge Diet Recommended Diet: AHA Diet (Heart Healthy), Diabetes Type 2 Diet Pending Studies Studies pending at discharge: no Laboratory Results Hemoglobin A1c Test 01/02/18 06:36 Range/Units Estimated Average Glucose 148 mg/dl Hemoglobin A1c 6.8 H 4.5-5.6 % Medical Emergencies . Who to Call and When: Medical Emergencies: If at any time you feel your situation is an emergency, please call 911 immediately. . Non-Emergent Contact Non-Emergency issues call your: Primary Care Provider, Registered Nurse [facility] Call Non-Emergent contact if: you have a fever, your pain is not controlled, your pain is worsening, your pain is unusual for you, your pain is concerning you, you have any medication questions Seek immediate medical attention if your symptoms reoccur or worsen . . "Provider Documentation" section prepared by Brian Desai. . <Electronically signed by Brian Desai MD> Signed: 01/08/18 1112 Signed: The status of this report is Signed * If report status is Draft, the document has not been finalized by the responsible provider.
--- NOTE | 2018-01-08 11:57 | Cardiology Follow-Up ---
Subjective Subjective Date of Service: January 08, 2018. Pt evaluation today including: conversation w/ patient, physical exam, chart review, lab review, review of studies, review of inpatient medication list Additional Details: Pt seen and examined, oob in chair, states that she feels tired today but denies cp, sob, palpitations, lightheadedness or dizziness. Problem List Medical Problems: (1) MAGGIE (acute kidney injury) Status: Acute (2) C. difficile enteritis Status: Acute (3) Calcaneal fracture Status: Acute (4) Elevated troponin Status: Acute (5) Fracture of humeral head, closed Status: Acute (6) Leukocytosis Status: Acute (7) Right flank pain Status: Acute (8) UTI (urinary tract infection) Status: Acute Review of Systems Constitutional: + weakness, + fatigue Respiratory: No cough, No wheezing, No shortness of breath, No dyspnea on exertion, No dyspnea at rest, No hemoptysis Cardiac: No chest pain, No orthopnea, No PND, No edema, No palpitations Abdomen: + diarrhea Musculoskeletal: + joint pain, + muscle pain, + problem reported Neurologic: + see HPI, + memory loss, + weakness, + balance problems Endo: + fatigue Objective Vital Signs Last Vital Signs Documentation Date Time Temp Pulse Resp B/P (MAP) Pulse Ox O2 Delivery O2 Flow Rate FiO2 01/08/18 10:24 91 Room Air 01/08/18 07:23 36.7 90 20 131/65 (87) 01/08/18 04:00 2.0 Physical Exam: General Appearance: WD/WN, no apparent distress, + obese Eyes: bilateral eyes normal inspection, bilateral eyes PERRL, bilateral eyes EOMI ENT: normal ENT inspection, pharynx normal Neck: supple, no adenopathy, thyroid normal, trachea midline Respiratory/Chest: chest non-tender, lungs clear, normal breath sounds, no respiratory distress Cardiovascular: regular rate, rhythm, no gallop, no murmur Abdomen: normal bowel sounds, non tender, soft, no organomegaly Extremities: non-tender, no calf tenderness, + swelling Neurologic/Psychiatric: alert, oriented x 3 Skin: normal color, no rash, + pertinent finding (Right flank hematoma) Lymphatic: no adenopathy Assessment and Plan 1. bradycardia asymptomatic, incidentally discovered likely due to polypharmacy agents held, HR improving somewhat but bp now trending upwards ideally would like to wean off clonidine if possible will restart amlodipine today, LE appears to be due to lymphedema/obesity and not fluid 2. HTN finally well controlled would cont current regimen including current doses of terazozin, amlodipine, imdur, and hydralazine ok to d/c to home from cardiac standpoint.
--- NOTE | 2018-01-11 11:40 | EDITING REQUIRED CODING QUERY ---
CODING QUERY To promote full compliance with coding requirements relating to patient care, provider participation is requested in all cases of sizing machine operator uncertainty. Please assist us with the question(s) below: Please clarify the meaning of MAGGIE. MAGGIE is not a valid abbreviation. Thank you. ( X ) Acute Kidney Injury ( ) Acute Kidney Insufficiency ( ) Other (Specify): Principal Diagnosis: "_that condition established after study, to be chiefly responsible for occasioning the admission of the patient to the hospital for care." Co-Existing Principal Diagnosis: "_when two or more diagnoses equally meet the criteria for principal diagnosis as determined by the circumstances of admission, diagnostic work up, and/or therapy provided, and the Alphabetic Index, Tabular List, or another coding guideline does not provide sequencing direction, any one of the diagnoses may be sequenced first." "When the physician has documented what appears to be a current diagnosis in the body of the record, but has not included the diagnosis in the final diagnostic statement, the physician should be asked whether the diagnosis should be added." (Source [facility] 2 QTR90. p3-4)
== END 2018-01-08 13:37 | disposition home health service (06) | DRG 683 ==
LOC: C.EDB 15:38 → C.MS2W 19:30 → ENRESERV 19:41 → C.MED 01-03 21:45
PROVIDERS: ADMIT Hospitalist; ATTEND Internal Medicine
DX: N17.9 Acute kidney failure, unspecified (principal); N39.0 Urinary tract infection, site not specified; Z68.43 Body mass index [BMI] 50.0-59.9, adult; E87.1 Hypo-osmolality and hyponatremia; B96.1 Klebsiella pneumoniae [K. pneumoniae] as the cause of diseases classified elsewhere; B96.20 Unspecified Escherichia coli [E. coli] as the cause of diseases classified elsewhere; R00.1 Bradycardia, unspecified; T46.5X5A Adverse effect of other antihypertensive drugs, initial encounter; T44.7X5A Adverse effect of beta-adrenoreceptor antagonists, initial encounter; R10.9 Unspecified abdominal pain; M51.36 Other intervertebral disc degeneration, lumbar region; E86.0 Dehydration; R19.7 Diarrhea, unspecified; I89.0 Lymphedema, not elsewhere classified; G47.33 Obstructive sleep apnea (adult) (pediatric); R09.02 Hypoxemia; I13.10 Hypertensive heart and chronic kidney disease without heart failure, with stage 1 through stage 4 chronic kidney disease, or unspecified chronic kidney disease; E11.40 Type 2 diabetes mellitus with diabetic neuropathy, unspecified; E11.22 Type 2 diabetes mellitus with diabetic chronic kidney disease; N18.3 Chronic kidney disease, stage 3 (moderate); K21.9 Gastro-esophageal reflux disease without esophagitis; E78.5 Hyperlipidemia, unspecified; F32.9 Major depressive disorder, single episode, unspecified; E66.01 Morbid (severe) obesity due to excess calories; Z51.81 Encounter for therapeutic drug level monitoring; Z79.899 Other long term (current) drug therapy; Z79.4 Long term (current) use of insulin; Z79.82 Long term (current) use of aspirin; Z87.442 Personal history of urinary calculi; Z88.8 Allergy status to other drugs, medicaments and biological substances; Z88.2 Allergy status to sulfonamides; Z83.3 Family history of diabetes mellitus; Z82.49 Family history of ischemic heart disease and other diseases of the circulatory system

== ENCOUNTER 2018-01-13 20:37 | Inpatient (IN) | payer OTHER ==
[~2018-01-13] VITALS: Ht 149.9 cm; Wt 124.4 kg
[~2018-01-13 20:37] MED LIST changes: -AMOX500C3 PO; -CARV12.52 PO; +CEFD300C3 PO; -CLON0.2T PO; +HYT1 PO; +IMDSR60 PO; +METO5TAB25 PO; +OXGN
[2018-01-13] MEDS ORDERED: FAMOTIDINE 20 MG TAB PO ONE (21:00)
[2018-01-13] MEDS ORDERED: ONDANSETRON INJ 2 MG/ML 2 ML VIAL IV STA (21:00)
[2018-01-13] MEDS ORDERED: GI COCKTAIL PO STA (21:00)
--- NOTE | 2018-01-13 21:03 | EMERGENCY ROOM VISIT NOTE ---
History Report prepared by Pola: Araceli Hummel Under the Supervision of: Dr. Chapin Yeh M.D. 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 Positive chills, nausea, vomiting, diarrhea. She is accompanied by her family who states that she was seen in the ED 4 to 5 days ago for similar symptoms. She states her last bowel movement was diarrhea like. She is not on any blood thinning medications and currently only takes aspirin. Her PCP is Dr. Marin. 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 A total of ten systems were reviewed and were otherwise negative. Past Medical & Surgical Medical Problems: (1) Adjustment disorder (2) CKD (chronic kidney disease), stage III (3) GERD (gastroesophageal reflux disease) (4) HLD (hyperlipidemia) (5) Hypertension (6) Hypertensive heart disease (7) Hyponatremia (8) IBS (irritable bowel syndrome) (9) Insulin dependent diabetes mellitus (10) Morbid obesity Surgical Problems: (1) H/O hernia repair (2) H/O: (3) H/O: hysterectomy (4) S/P cholecystectomy Family History Cardiac disorder MOTHER Diabetes mellitus FATHER Social History Smoking Status: Never Smoker Drug Use: none Marital Status: Occupation Status: retired Current/Historical Medications Scheduled Amlodipine (Norvasc), 10 MG PO QAM Aspirin (Aspirin Ec), 325 MG PO QAM Carvedilol (Coreg), 12.5 MG PO BID Cefdinir (Omnicef), 300 MG PO HS Cholecalciferol (Vitamin D), 1,000 UNITS PO DAILY Ciprofloxacin/Dexamethasone (Ciprodex 0.3-0.1 %), 4 DROPS OT BID Clonazepam (Klonopin), 1 MG PO HS Clonidine Hcl (Catapres), 0.2 MG PO BID Econazole Nitrate (Econazole Nitrate Crm 1% 30 Gm), 1 APPLN TD BID Estradiol Vaginal (Estrace), 1 DOSE PV 3XWK Fenofibrate (Tricor), 145 MG PO QPM Fluticasone Propionate (Nasal) (Flonase Allergy Relief), 1 SPRAY ANSELMO DAILY Furosemide (Lasix), 40 MG PO BID Gabapentin (Neurontin), 600 MG PO BID Gabapentin (Neurontin), 300 MG PO DAILY@MIDDAY Home O2 Therapy (Oxygen), 2 LITERS NA HS Hydralazine Hcl (Apresoline), 100 MG PO TID Insulin Glargine (Lantus), 20 UNITS SQ BID Insulin Lispro (Human) (Humalog Kwikpen), 10 UNITS SQ AC Isosorbide Mononitrate Ext Rel (Imdur Ext Rel), 60 MG PO QAM Lactobacillus Acidophilus (Lactinex), 1 TAB PO TIDM Metolazone (Zaroxolyn), 5 MG PO WEEKLY Mupirocin (Bactroban 2% Oint), 1 APPLN TD TID Nitroglycerin (Nitrostat), 0.4 MG UT PRN Nystatin (Nystatin Cream), 0 EXT BID Nystatin (Topical) (Nystatin), 1 APPLN TD TID Pantoprazole (Protonix), 40 MG PO QDD Ranitidine (Zantac), 150 MG PO BID Rosuvastatin Calcium (Crestor), 40 MG PO QPM Sertraline (Zoloft), 50 MG PO QAM Terazosin Hcl (Hytrin), 1 MG PO HS Topiramate (Topiramate), 25 MG PO BID Scheduled PRN Hydrocodone/Acetaminophen 5MG/325MG (White 5MG/325MG), 2 TABLETS PO BID PRN for Pain Ondansetron Hcl (Zofran), 8 MG PO TID PRN for Nausea Polyethylene Glycol-Propylene (Systane), 1 DROPS OP QID PRN for DRYNESS Sennosides-Docusate Sodium (Senokot S), 2 TAB PO DAILY PRN for Constipation Triamcinolone Acet (Aristocort 0.1%), 1 DOSE EXT DIRECTED PRN for PRN Allergies Coded Allergies: Metformin (Verified Allergy, Intermediate, causes kidney problems, 01/13/18 ) Loratadine (Verified Allergy, Unknown, MOUTH SWELLING, 01/13/18) Sulfamethoxazole w/Trimethoprim (Verified Allergy, Unknown, "ITS BEEN SO LONG, I FORGET", 01/13/18) HMG-CoA-R Inhibitors (Verified Adverse Reaction, Mild, GI UPSET, 01/13/18) ? GI UPSET PER DR PATEL Sulfa Antibiotics (Verified Adverse Reaction, Unknown, NAUSEA, 01/13/18) Physical Exam Vital Signs Date Time Temp Pulse Resp B/P (MAP) Pulse Ox O2 Delivery O2 Flow Rate FiO2 01/13/18 23:21 87 20 195/79 98 Room Air 01/13/18 22:20 85 16 193/73 98 Room Air 01/13/18 21:02 84 01/13/18 20:44 36.9 85 22 195/88 Room Air Physical Exam GENERAL: Awake, alert, well-appearing, NAD. Morbidly obese. Wearing glasses. Thinning Hair. HENT: Normocephalic, atraumatic. EYES: Normal conjunctiva. Sclera non-icteric. PERRL. No anisocoria. NECK: Supple. No nuchal rigidity. FROM. RESPIRATORY: CTAB, no rhonchi, wheezing, crackles CARDIAC: RRR, no MRG ABDOMEN: Soft, NTND, BS+. Right sided abdominal incisional scar. Mild epigastric discomfort. Not peritonitic. MSK: No chest wall TTP, no LE edema. Has a bandage on the RLE. NEURO: GCS 15, CN 2-12 intact, moves all 4s on command SKIN: No rash or jaundice noted. Medical Decision & Procedures ER Provider Diagnostic Interpretation: Radiology results as stated below per my review and radiologist interpretation: SINGLE VIEW CHEST CLINICAL HISTORY: Generalized abdominal pain. FINDINGS: An AP, portable, upright chest radiograph is compared to study dated 01/01/2018. The examination is degraded by portable technique, large body habitus, apical lordotic positioning, and patient rotation. The heart is enlarged and there is atherosclerotic calcification of the thoracic aorta. The pulmonary vasculature is noncongested. Chronic interstitial thickening is similar to previous. No airspace consolidation or large pleural effusion is identified. No pneumothorax is seen. The skeletal structures are osteopenic. Arthritic change is seen in the shoulders and thoracic spine. IMPRESSION: Cardiomegaly with no acute cardiopulmonary abnormality. Electronically signed by: Scott Tello M.D. 01/13/2018 10:[address] SCAN OF THE ABDOMEN AND PELVIS WITHOUT IV CONTRAST CLINICAL HISTORY: Generalized abdominal pain. COMPARISON STUDY: Abdominal CT dated 01/01/2018. TECHNIQUE: CT scan of the abdomen and pelvis is performed from the lung bases to the proximal femora. Images are reviewed in the axial, sagittal, and coronal planes. IV contrast was not administered for this examination as per the referring clinician. Note that the examination was performed in significantly suboptimal fashion without oral and IV contrast. The examination is also degraded by large body habitus, and streak artifact from the body wall abutting the CT gantry. A dose lowering technique was utilized adhering to the principles of ALARA. CT DOSE: 1819.67 mGy.cm FINDINGS: Lung bases: The heart is top normal in size and without pericardial effusion. The mitral annulus is densely calcified. There is a tiny hiatal hernia. The lung bases are clear. Liver: The unenhanced liver is normal in size, contour, and attenuation. There is no intrahepatic biliary ductal dilatation. Gallbladder: Surgically absent noting clips in the gallbladder fossa. Spleen: Normal in size and attenuation. Pancreas: The unenhanced pancreas is atrophic and grossly unremarkable. Adrenal glands: Unremarkable. Kidneys: The unenhanced kidneys are atrophic and without hydronephrosis. There are no renal calculi identified. A subcentimeter complex/hemorrhagic cyst in the left kidney is unchanged from previous. Abdominal vasculature: The abdominal aorta is normal in course and caliber noting advanced atherosclerotic calcification. Bowel: The small bowel and colon are normal in course and caliber. The appendix is normal as visualized. Peritoneum: There is no intraperitoneal free air or abdominal ascites. Lymphadenopathy: None. Pelvic viscera: The bladder is normal as visualized. The uterus is surgically absent. No adnexal lesion is seen. Skeletal structures: The skeletal structures are osteopenic. Moderate to advanced lumbosacral spondylosis is observed. Sclerotic degenerative change is noted in the sacroiliac joints. No lytic or blastic lesions are seen. IMPRESSION: 1. Suboptimal examination without oral and IV contrast. The examination is also degraded by streak artifact 2. There are no acute infectious or inflammatory findings in the abdomen or pelvis. 3. Additional findings as above. Electronically signed by: Scott Tello M.D. 01/13/2018 9:47 PM Laboratory Results 01/13/18 20:52 Red Blood Count 3.72, Mean Corpuscular Volume 86.8, Mean Corpuscular Hemoglobin 29.0, Mean Corpuscular Hemoglobin Concent 33.4, Mean Platelet Volume 9.9, Neutrophils (%) (Auto) 56.0, Lymphocytes (%) (Auto) 34.6, Monocytes (%) (Auto) 7.5, Eosinophils (%) (Auto) 1.3, Basophils (%) (Auto) 0.3, Neutrophils # (Auto) 5.38, Lymphocytes # (Auto) 3.32, Monocytes # (Auto) 0.72, Eosinophils # (Auto) 0.12, Basophils # (Auto) 0.03 01/13/18 20:52 Test 01/13/18 20:52 01/13/18 22:27 01/13/18 23:37 White Blood Count 9.60 K/uL (4.8-10.8) Red Blood Count 3.72 M/uL (4.2-5.4) Hemoglobin 10.8 g/dL (12.0-16.0) Hematocrit 32.3 % (37-47) Mean Corpuscular Volume 86.8 fL (80-100) Mean Corpuscular Hemoglobin 29.0 pg (25-34) Mean Corpuscular Hemoglobin Concent 33.4 g/dl (32-36) Platelet Count 265 K/uL (130-400) Mean Platelet Volume 9.9 fL (7.4-10.4) Neutrophils (%) (Auto) 56.0 % Lymphocytes (%) (Auto) 34.6 % Monocytes (%) (Auto) 7.5 % Eosinophils (%) (Auto) 1.3 % Basophils (%) (Auto) 0.3 % Neutrophils # (Auto) 5.38 K/uL (1.4-6.5) Lymphocytes # (Auto) 3.32 K/uL (1.2-3.4) Monocytes # (Auto) 0.72 K/uL (0.11-0.59) Eosinophils # (Auto) 0.12 K/uL (0-0.5) Basophils # (Auto) 0.03 K/uL (0-0.2) RDW Standard Deviation 49.2 fL (36.4-46.3) RDW Coefficient of Variation 15.4 % (11.5-14.5) Immature Granulocyte % (Auto) 0.3 % Immature Granulocyte # (Auto) 0.03 K/uL (0.00-0.02) Anion Gap 10.0 mmol/L (3-11) Est Creatinine Clear Calc Drug Dose 60.7 ml/min Estimated GFR () 56.2 Estimated GFR (Non- 48.5 BUN/Creatinine Ratio 17.4 (10-20) Calcium Level 9.0 mg/dl (8.5-10.1) Magnesium Level 1.7 mg/dl (1.8-2.4) Total Bilirubin 1.2 mg/dl (0.2-1) Direct Bilirubin 0.4 mg/dl (0-0.2) Aspartate Amino Transf (AST/SGOT) 52 U/L (15-37) Alanine Aminotransferase (ALT/SGPT) 24 U/L (12-78) Alkaline Phosphatase 55 U/L (45-117) Troponin I 0.077 ng/ml (0-0.045) Total Protein 6.8 gm/dl (6.4-8.2) Albumin 3.1 gm/dl (3.4-5.0) Lipase 162 U/L (73-393) Urine Color YELLOW Urine Appearance CLEAR (CLEAR) Urine pH >= 9.0 (4.5-7.5) Urine Specific Phelan 1.016 (1.000-1.030) Urine Protein 1+ (NEG) Urine Glucose (UA) NEG (NEG) Urine Ketones NEG (NEG) Urine Occult Blood 1+ (NEG) Urine Nitrite NEG (NEG) Urine Bilirubin NEG (NEG) Urine Urobilinogen NEG (NEG) Urine Leukocyte Esterase NEG (NEG) Urine WBC (Auto) 1-5 /hpf (0-5) Urine RBC (Auto) 5-10 /hpf (0-4) Urine Hyaline Casts (Auto) 1-5 /lpf (0-5) Urine Epithelial Cells (Auto) >30 /lpf (0-5) Urine Bacteria (Auto) NEG (NEG) Laboratory results reviewed by me Medications Administered Medications (Trade) Dose Ordered Sig/Hansel Route Start Time Stop Time Status Last Admin Dose Admin Ondansetron HCl (Zofran Inj) 4 mg NOW STAT IV 01/13/18 21:00 01/13/18 21:01 DC 01/13/18 21:33 4 MG Famotidine (Pepcid Tab) 20 mg NOW ONCE PO 01/13/18 21:00 01/13/18 21:01 DC 01/13/18 21:33 20 MG Al Hydroxide/Mg Hydroxide (Maalox Susp) 30 ml STK-MED ONCE .ROUTE 01/13/18 21:28 01/13/18 21:29 DC 01/13/18 21:33 30 ML Lidocaine HCl (Viscous Lidocaine 2% Soln) 20 ml STK-MED ONCE .ROUTE 01/13/18 21:28 01/13/18 21:29 DC 01/13/18 21:33 20 ML Fentanyl Citrate (Fentanyl Inj) 25 mcg NOW ONCE IV 01/13/18 22:45 01/13/18 22:46 DC 01/13/18 22:43 25 MCG ECG Per My Interpretation Indication: abdominal pain Rate (beats per minute): 86 Rhythm: normal sinus Findings: T-wave inversion (Anterior, Inferior), left axis deviation, other ( normal intervals) Comparison ECG Date: 01/04/18 Change: TWI in 3 is old. The one in lead III is new. ED Course 2055: The patient was evaluated in room B2. A complete history and physical exam was performed. 2218: I checked on the patient at this time. She is not feeling any better. 2334: Discussed the patient's case [facility] The patient will be evaluated for further treatment and disposition. 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 Positive chills, nausea, vomiting, diarrhea. Differential diagnosis: Etiologies such as appendicitis, diverticulitis, PUD, biliary pathology, UTI, pancreatitis, obstruction, mesenteric ischemia, aortic pathology, infections, inflammatory bowel disease, renal colic, as well as others were entertained. Patient was seen and evaluated the bedside. Patient is a very morbidly obese 72 -year-old female who does have multiple medical comorbidities. Patient was complaining some epigastric discomfort. Patient apparently does present from a snf. Patient did have a recent admission and does have a known history of drug resistant ESBL E. coli. Patient was complaining some epigastric discomfort. Is been fairly constant and rates it 10 out of 10. The patient did have concern for possible intermittent atrial fibrillation in route. Patient did blood work completed, EKG, troponin, chest x-ray. Patient of note had a fairly unchanged EKG with the exception of mild change in V3. Patient did have a positive troponin. Patient has had an elevated troponin in the past. The patient was given some additional pain medication after reassessment but that she did not improve. A VBG and lactate were also ordered. Patient was given aspirin. Medication Reconcilliation Current Medication List: was personally reviewed by me Blood Pressure Screening Patient's blood pressure: Elevated blood pressure Blood pressure disposition: Referred to PCP Consults Time Called: [phone] Consulting Physician: Lana Bailey Hospitalist Returned Call: [phone] Discussed the patient's case with Lana Bailey. The patient will be evaluated for further treatment and disposition. Impression Primary Impression: Epigastric abdominal pain Additional Impression: Elevated troponin Scribe Attestation The scribe's documentation has been prepared under my direction and personally reviewed by me in its entirety. I confirm that the note above accurately reflects all work, treatment, procedures, and medical decision making performed by me. Departure Information Dispostion Being Evaluated By Hospitalist (Lana Bailey Hospitalist ) Referrals Angela Marin M.D. (PCP) Patient Instructions My [facility] Problem Qualifiers
[2018-01-13 21:12] LABS: BASO % 0.3 %; BASO ABS # 0.03 K/uL (0-0.2); EOS % 1.3 %; EOS ABS # 0.12 K/uL (0-0.5); HEMATOCRIT 32.3 % (37-47); HEMOGLOBIN 10.8 g/dL (12.0-16.0); IG# 0.03 K/uL (0.00-0.02); LYMPH % 34.6 %; LYMPH ABS # 3.32 K/uL (1.2-3.4); MEAN CELL VOLUME 86.8 fL (80-100); MEAN CORPUSCULAR HGB CONC 33.4 g/dl (32-36); MEAN PLATELET VOLUME 9.9 fL (7.4-10.4); MONO % 7.5 %; MONO ABS # 0.72 K/uL (0.11-0.59); NEUT ABS # 5.38 K/uL (1.4-6.5); PLATELET COUNT 265 K/uL (130-400); RED CELL DISTRIBUTION WIDTH CV 15.4 % (11.5-14.5); RED CELL DISTRIBUTION WIDTH SD 49.2 fL (36.4-46.3)
[2018-01-13] MEDS ORDERED: ALUMINUM/MAGNESIUM SUSP 30 ML UDC ONE (21:28)
[2018-01-13] MEDS ORDERED: LIDOCAINE HCL 2% VISC SOLN 20 ML UDC ONE (21:28)
[2018-01-13 21:45] LABS: ALBUMIN 3.1 gm/dl (3.4-5.0); CREATININE 1.13 mg/dl (0.60-1.20); POTASSIUM 3.5 mmol/L (3.5-5.1); TOTAL PROTEIN 6.8 gm/dl (6.4-8.2)
--- NOTE | 2018-01-13 21:49 | DIAGNOSTIC IMAGING REPORT ---
CT SCAN OF THE ABDOMEN AND PELVIS WITHOUT IV CONTRAST CLINICAL HISTORY: Generalized abdominal pain. COMPARISON STUDY: Abdominal CT dated 01/01/2018. TECHNIQUE: CT scan of the abdomen and pelvis is performed from the lung bases to the proximal femora. Images are reviewed in the axial, sagittal, and coronal planes. IV contrast was not administered for this examination as per the referring clinician. Note that the examination was performed in significantly suboptimal fashion without oral and IV contrast. The examination is also degraded by large body habitus, and streak artifact from the body wall abutting the CT gantry. A dose lowering technique was utilized adhering to the principles of ALARA. CT DOSE: 1819.67 mGy.cm FINDINGS: Lung bases: The heart is top normal in size and without pericardial effusion. The mitral annulus is densely calcified. There is a tiny hiatal hernia. The lung bases are clear. Liver: The unenhanced liver is normal in size, contour, and attenuation. There is no intrahepatic biliary ductal dilatation. Gallbladder: Surgically absent noting clips in the gallbladder fossa. Spleen: Normal in size and attenuation. Pancreas: The unenhanced pancreas is atrophic and grossly unremarkable. Adrenal glands: Unremarkable. Kidneys: The unenhanced kidneys are atrophic and without hydronephrosis. There are no renal calculi identified. A subcentimeter complex/hemorrhagic cyst in the left kidney is unchanged from previous. Abdominal vasculature: The abdominal aorta is normal in course and caliber noting advanced atherosclerotic calcification. Bowel: The small bowel and colon are normal in course and caliber. The appendix is normal as visualized. Peritoneum: There is no intraperitoneal free air or abdominal ascites. Lymphadenopathy: None. Pelvic viscera: The bladder is normal as visualized. The uterus is surgically absent. No adnexal lesion is seen. Skeletal structures: The skeletal structures are osteopenic. Moderate to advanced lumbosacral spondylosis is observed. Sclerotic degenerative change is noted in the sacroiliac joints. No lytic or blastic lesions are seen. IMPRESSION: 1. Suboptimal examination without oral and IV contrast. The examination is also degraded by streak artifact 2. There are no acute infectious or inflammatory findings in the abdomen or pelvis. 3. Additional findings as above. Electronically signed by: Scott Telol M.D. 01/13/2018 9:47 PM Dictated Date/Time: 01/13/2018 9:41 PM
--- NOTE | 2018-01-13 22:09 | DIAGNOSTIC IMAGING REPORT ---
SINGLE VIEW CHEST CLINICAL HISTORY: Generalized abdominal pain. FINDINGS: An AP, portable, upright chest radiograph is compared to study dated 01/01/2018. The examination is degraded by portable technique, large body habitus, apical lordotic positioning, and patient rotation. The heart is enlarged and there is atherosclerotic calcification of the thoracic aorta. The pulmonary vasculature is noncongested. Chronic interstitial thickening is similar to previous. No airspace consolidation or large pleural effusion is identified. No pneumothorax is seen. The skeletal structures are osteopenic. Arthritic change is seen in the shoulders and thoracic spine. IMPRESSION: Cardiomegaly with no acute cardiopulmonary abnormality. Electronically signed by: Scott Tello M.D. 01/13/2018 10:07 PM Dictated Date/Time: 01/13/2018 10:06 PM
[2018-01-13] MEDS ORDERED: TOPI25CA2 PO (22:13)
[2018-01-13] MEDS ORDERED: HYDR100T12 PO (22:13)
[2018-01-13] MEDS ORDERED: TERA1CAP PO (22:13)
[2018-01-13] MEDS ORDERED: CEFD300C2 PO (22:13)
[2018-01-13] MEDS ORDERED: POLYSOL4 OP (22:13)
[2018-01-13] MEDS ORDERED: OXGN (22:13)
[2018-01-13] MEDS ORDERED: ISOS60TA25 PO (22:13)
[2018-01-13] MEDS ORDERED: CLON0.2T PO (22:13)
[2018-01-13] MEDS ORDERED: RANI150T85 PO (22:13)
[2018-01-13] MEDS ORDERED: CARV12.52 PO (22:13)
[2018-01-13] MEDS ORDERED: SENN8.6T7 PO (22:18)
[2018-01-13] MEDS ORDERED: CPRDOTS OT (22:18)
[2018-01-13] MEDS ORDERED: NYST100033 TD (22:18)
[2018-01-13] MEDS ORDERED: BCTROWC TD (22:18)
[2018-01-13] MEDS ORDERED: SPCCR30 TD (22:18)
[2018-01-13] MEDS ORDERED: HYDR-5688 PO (22:18)
[2018-01-13] MEDS ORDERED: ONDA-170 PO (22:18)
[2018-01-13] MEDS ORDERED: NYSCR30 EXT (22:18)
[2018-01-13] MEDS ORDERED: FENTANYL CITRATE INJ 50 MCG/1 ML 2 ML VIAL IV ONE (22:45)
[2018-01-13] MEDS ORDERED: ASPIRIN 324 MG CHEW PO STA (23:46)
[2018-01-13] MEDS ORDERED: CARVEDILOL 12.5 MG TAB PO STA (23:59)
[2018-01-14] VITALS (9 sets, daily range): BP systolic 119–199; BP diastolic 51–87; PULSE 65–88; TEMP 36.6–37; O2SAT 95–98; Ht 149.9 cm; Wt 124.4 kg
[2018-01-14 00:07] LABS: PTT PATIENT 23.1 SECONDS (21.0-31.0)
[2018-01-14] MEDS ORDERED: MAGNESIUM SULFATE 1GM / D5W 100 ML IV STA (01:24)
[2018-01-14] MEDS ORDERED: HEPARIN IV LOW DOSE NO BOLUS SCH (01:32)
[2018-01-14] MEDS ORDERED: INSULIN GLARGINE SOLOSTAR 100 UNITS/ML 3 ML PEN SQ ONE (01:32)
[2018-01-14] MEDS ORDERED: HEPARIN 25000 UNIT/500 ML D5W ONE (01:35)
[2018-01-14] MEDS ORDERED: MAGNESIUM SULFATE 1GM / D5W 1 GM BAG IV ONE (01:35)
[2018-01-14] MEDS ORDERED: INSULIN ASPART 100 UNITS/ML 3 ML PEN SC ONE (01:42)
[2018-01-14] MEDS ORDERED: ARTIFICIAL TEARS OP SOLN OP PRN (01:45)
[2018-01-14] MEDS ORDERED: ACETAMINOPHEN 325 MG TAB PO PRN (01:45)
[2018-01-14] MEDS ORDERED: DEXTROSE 50% 50 ML SYR IV PRN ×2 (01:45)
[2018-01-14] MEDS ORDERED: HYDROmorphone INJ 0.5 MG/0.5 ML SYR IV PRN (01:45)
[2018-01-14] MEDS ORDERED: NITROGLYCERIN 0.4 MG SL PER TAB CHARGE SL PRN (01:45)
[2018-01-14] MEDS ORDERED: GLUCOSE 10 TABS/TUBE PO PRN ×2 (01:45)
[2018-01-14] MEDS ORDERED: CARBOHYDRATES FOR HYPOGLYCEMIA PO PRN ×2 (01:45)
[2018-01-14] MEDS ORDERED: GLUCOSE 40% GEL 15 GM TUBE PO PRN ×2 (01:45)
[2018-01-14] MEDS ORDERED: LACTATED RINGER'S 1000ML 1,000 ML IV ONE (01:45)
[2018-01-14] MEDS ORDERED: GLUCAGON FOR INJ 1 MG VIAL SQ PRN ×2 (01:45)
[2018-01-14] MEDS ORDERED: POTASSIUM CHLORIDE 10 MEQ TABCR PO STA (02:34)
[2018-01-14] MEDS: HYDROCODONE/ACETAMIN 5/325MG TAB PO PRN (02:56)
[2018-01-14] MEDS: HEPARIN 25,000 UNIT/500ML D5W 500 ML IV SCH ×2 (03:13→09:20)
[2018-01-14] MEDS: PROCHLORPERAZINE INJ 5 MG in SYRINGE 4 ML IV PRN ×2 (04:18→13:55)
[2018-01-14 06:07] LABS: BASO % 0.3 %; BASO ABS # 0.03 K/uL (0-0.2); EOS % 2.1 %; EOS ABS # 0.22 K/uL (0-0.5); HEMATOCRIT 30.6 % (37-47); HEMOGLOBIN 10.2 g/dL (12.0-16.0); IG# 0.04 K/uL (0.00-0.02); LYMPH % 27.1 %; LYMPH ABS # 2.82 K/uL (1.2-3.4); MEAN CELL VOLUME 86.2 fL (80-100); MEAN CORPUSCULAR HEMOGLOBIN 28.7 pg (25-34); MEAN CORPUSCULAR HGB CONC 33.3 g/dl (32-36); MEAN PLATELET VOLUME 9.8 fL (7.4-10.4); MONO % 8.2 %; MONO ABS # 0.85 K/uL (0.11-0.59); NEUT % 61.9 %; NEUT ABS # 6.44 K/uL (1.4-6.5); PLATELET COUNT 239 K/uL (130-400); RED CELL DISTRIBUTION WIDTH CV 15.6 % (11.5-14.5); RED CELL DISTRIBUTION WIDTH SD 49.5 fL (36.4-46.3)
[2018-01-14 06:54] LABS: CALCIUM 8.5 mg/dl (8.5-10.1); CREATININE 1.13 mg/dl (0.60-1.20); POTASSIUM 3.8 mmol/L (3.5-5.1)
--- NOTE | 2018-01-14 07:05 | DIAGNOSTIC IMAGING REPORT ---
HEAD CT NONCONTRAST CT DOSE: 638.56 mGycm HISTORY: Headache with nausea and vomiting TECHNIQUE: Multiaxial CT images of the head were performed without the use of intravenous contrast. Automated exposure control was utilized for this study. A dose lowering technique was utilized adhering to the principles of ALARA. Comparison: Head CT 08/30/2016. Findings: The paranasal sinuses and mastoid air cells are clear. The calvarium and skull base are intact. The ventricles and sulci are within normal limits. There is no mass, hematoma, midline shift, or acute infarct. Chronic deformity of the left mandibular condyle is again noted. Impression: No acute intracranial abnormality. Electronically signed by: Osmar Bonilla M.D. 01/14/2018 7:04 AM Dictated Date/Time: 01/14/2018 7:02 AM
[2018-01-14] MEDS: INSULIN ASPART 100 UNITS/ML 3 ML PEN SC SCH ×4 (07:59→21:39)
[2018-01-14] MEDS: FLUTICASONE PROPIONATE NA SPR 16 GM BTL NAE SCH (08:01)
[2018-01-14] MEDS: LACTOBACILLUS ACIDOPHILUS (FLORANEX) TAB PO SCH ×3 (08:01→16:42)
[2018-01-14] MEDS: CIPRO 0.3%/DEXAMETHASONE 0.1% OTIC SUSP 7.5ML OT SCH ×2 (08:01→21:28)
[2018-01-14] MEDS: ASPIRIN 81 MG ECTAB PO SCH (08:03)
[2018-01-14] MEDS: CARVEDILOL 12.5 MG TAB PO SCH ×2 (08:03→21:30)
[2018-01-14 08:04] LABS: PTT PATIENT 30.6 SECONDS (21.0-31.0)
[2018-01-14] MEDS: ISOSORBIDE MONONITRATE 60 MG TABCR PO SCH (08:06)
[2018-01-14] MEDS: GABAPENTIN 300 MG CAP PO SCH ×3 (08:06→21:31)
[2018-01-14] MEDS: TOPIRAMATE 25 MG TAB PO SCH ×2 (08:07→21:33)
[2018-01-14] MEDS: AMLODIPINE BESYLATE 5 MG TAB PO SCH (08:07)
[2018-01-14] MEDS: SERTRALINE HCL 50 MG TAB PO SCH (08:08)
[2018-01-14] MEDS: RANITIDINE HCL 150 MG TAB PO SCH ×2 (08:08→21:32)
[2018-01-14] MEDS ORDERED: ASPIRIN 325 MG ECTAB PO SCH (09:00)
--- NOTE | 2018-01-14 09:09 | HISTORY & PHYSICAL EXAMINATION ---
DATE OF ADMISSION: 01/14/2018 PRIMARY CARE DOCTOR: Dr. Marin. The patient is admitted on 01/14/2018. CHIEF COMPLAINT: Abdominal pain, nausea, vomiting. Recent confinement. HISTORY OF PRESENT ILLNESS: Medical history significant for chronic diastolic heart failure as per records, EF of 55%, hypertension, DM2, insulin-requiring, hyperlipidemia, chronic anemia (baseline hemoglobin of 10). Recent confinement last week for right flank pain and UTI E. coli. Patient discharged to home. Yesterday, the patient noted generalized abdominal pain with nausea, emesis, diarrhea. No chest pain, no shortness of breath. Achy headache symptoms, poor appetite. Patient unable to take BP meds at home. As per EMS account, the patient was noted to be in atrial fibrillation/flutter in the ambulance. At the Emergency Room, the patient is noted to be in normal sinus rhythm. MEDICAL HISTORY: As above. 2D echo from December 2017 showed LVH with diastolic dysfunction, calcified atherosclerotic plaque, aortic valve sclerosis, mild MR, small loculated pericardial effusion without hemodynamic significance. SURGERIES: Hernia repair, , hysterectomy, cholecystectomy. HOME MEDICATIONS: Include Humalog, Lantus, Imdur, Lactinex, Bactroban, Zaroxolyn, Nystatin, Nitrostat, Zofran, Systane, Protonix, Senokot-S, Zantac, Crestor, Zoloft, Hytrin, Topamax, Aristocort, Ciprodex, Klonopin, econazole, Estrace, TriCor, Flonase, aspirin, Norvasc, Coreg, Omnicef, Catapres, vitamin D. ALLERGIES: ALLERGIC TO BACTRIM, LORATADINE, METFORMIN, SULFA. FAMILY HISTORY: Heart disease. PERSONAL AND SOCIAL HISTORY: Nonsmoker. No chronic intake of alcoholic beverages. Lives with sisters. REVIEW OF SYSTEMS: As per HPI. All 10 systems reviewed. All other ROS negative. PHYSICAL EXAMINATION: VITAL SIGNS: Blood pressure was noted to be 195/88, pulse rate noted to be 98, RR 20, temperature 37, sats 98 on room air. GENERAL: Noted to be uncomfortable, obese, in no respiratory distress. SKIN: Pallor, warm. HEENT: Partial alopecia/sparse hair. Pale palpebral conjunctivae. No ptosis. Dry mucosa. NECK: Short, supple. CHEST: Decreased effort, no tenderness. HEART: Regular rate and rhythm, no murmur. ABDOMEN: Some distention, minimal epigastric tenderness. EXTREMITIES: Minimal bilateral LE edema (chronic), No LE tenderness. No other gross deformities. NEUROLOGIC EXAMINATION: Coherent. No gross focality. LABORATORIES: Hemoglobin was noted to be 10.8, hematocrit 30.2, white blood cell count 9.6, platelets 265. Sodium 140, potassium 3.5, chloride 106, CO2 25, BUN 20, creatinine 1.1, glucose 186. Troponin 0.077. Hemoglobin A1c in December 2017 was 6.8. Chest x-ray as per my interpretation, cardiomegaly, chronic interstitial thickening. CT abdomen and pelvis showed no acute infection, no inflammatory findings. CT head initial read, no acute pathology. ASSESSMENT: 1. Paroxysmal atrial fibrillation, atrial flutter New-onset Patient currently in NSR multifactorial : Uncontrolled hypertension secondary to illness, missed meds. Borderline electrolyte abnormalities from acute diarrheal illness, rule out C. diff (recent antibiotic Rx, recent confinement) 2. Chronic diastolic heart failure EF 55% Patient on the dry side. 3. DM2, insulin-requiring. well-controlled as of recent inpatient HgA1c. 4. Chronic anemia. Hemoglobin at baseline. PLAN: PCU. Facilitate home antihypertensive meds IV heparin for now thromboprophylaxis for paroxysmal atrial fibrillation/ flutter until the patient is seen by her cardiology. 2D echo, Cardio consult RE PAF/PAFl Supportive management for viral gastroenteritis stool C. diff. Hold home diuretics for now. Gentle IV hydration. Supplement electrolytes. Basal insulin, ISS BG goal 140-180. PT/OT eval. DVT prophylaxis, IV Heparin. FULL CODE. MTDD
[2018-01-14] MEDS: CLONIDINE HCL 0.1 MG TAB PO PRN ×2 (09:16→16:42)
[2018-01-14] MEDS ORDERED: HEPARIN IV BOLUS 4,500 UNIT in SYRINGE 0 ML IV ONE (09:30)
--- NOTE | 2018-01-14 10:41 | ECHOCARDIOGRAM REPORT ---
*NOTICE TO RECEIVING REPUBLICAN AGENCY This information is strictly Confidential and protected under [place] law. [place] law prohibits you from making any further disclosure of this information unless further disclosure is expressly permitted by the written consent of the person to whom it pertains or is authorized by law. A general authorization for the release of medical or other information is not sufficient for this purpose. Hospital accepts no responsibility if the information is made available to any other person, INCLUDING THE PATIENT. Interpretation Summary * Name: DONNA CERNA Study Date: 01/14/2018 06:20 AM BP: 199/85 mmHg * Patient Location: C.2E\S\E204\S\1 HR: 75 * : 1945 (M/d/yyyy) Gender: Female Height: 66 in * Age: 72 yrs Ethnicity: CA Weight: 275 lb * Ordering Physician: Zaid Felipe * Referring Physician: Self, Referred * Performed By: Marge Bullock RCS * * Reason For Study: A-FIB * BSA: 2.3 m2 * Compared to prior study, there is no significant change. * -- Conclusions -- * Normal LV chamber size with moderate concentric LVH. * Normal LV systolic function without regional wall motion abnormality, EF 60-65%. * Grade II diastolic dysfunction. * There is severe mitral annular calcification. Calcified mitral apparatus causing mitral stenosis. There is mild mitral regurgitation. There is mild mitral stenosis. * Aortic valve sclerosis mild, without significant aortic valvular stenosis. * Compared to prior study, there is no significant change. Procedure Details * A complete two-dimensional transthoracic echocardiogram was performed (2D, M-mode, Doppler and color flow Doppler). Left Ventricle * The left ventricle is normal in size. * There is moderate concentric left ventricular hypertrophy. * Ejection Fraction = 60-65%. Right Ventricle * The right ventricle is normal size. * The right ventricular systolic function is normal. Atria * The left atrium is mildly dilated. * Right atrial size is normal. * No ASD detected; PFO is not assessed. Mitral Valve * There is severe mitral annular calcification. * Calcified mitral apparatus causing mitral stenosis. * There is mild mitral stenosis. * There is mild mitral regurgitation. Tricuspid Valve * The tricuspid valve anatomy is normal. * Significant tricuspid regurgitation is absent. Aortic Valve * Aortic valve sclerosis mild, without significant aortic valvular stenosis. * There is no significant aortic regurgitation. Pulmonic Valve * The pulmonic valve is not well visualized. Great Vessels * The aortic root and proximal ascending aorta are normal sized. Pericardium/Pleural * There is no pericardial effusion. MMode 2D Measurements and Calculations IVSd 1.8 cm IVSs 2.2 cm LVIDd 4.4 cm LVIDs 2.8 cm LVPWd 1.4 cm LVPWs 1.6 cm IVS/LVPW 1.4 FS 36.3 % EDV(Teich) 85.5 ml ESV(Teich) 28.8 ml EF(Teich) 66.3 % EDV(cubed) 82.5 ml ESV(cubed) 21.3 ml EF(cubed) 74.2 % % IVS thick 21.1 % % LVPW thick 16.6 % LV mass(C)d 290.3 grams LV mass(C)dI 126.8 grams/m\S\2 LV mass(C)s 220.2 grams LV mass(C)sI 96.2 grams/m\S\2 SV(Teich) 56.7 ml SI(Teich) 24.8 ml/m\S\2 SV(cubed) 61.2 ml SI(cubed) 26.7 ml/m\S\2 Ao root diam 2.9 cm Ao root area 6.7 cm\S\2 LA dimension 3.4 cm LA/Ao 1.2 LVOT diam 2.0 cm LVOT area 3.2 cm\S\2 LVAd ap4 33.3 cm\S\2 LVLd ap4 8.0 cm EDV(MOD-sp4) 112.3 ml EDV(sp4-el) 117.5 ml LVAs ap4 21.9 cm\S\2 LVLs ap4 6.9 cm ESV(MOD-sp4) 56.2 ml ESV(sp4-el) 59.1 ml EF(MOD-sp4) 49.9 % EF(sp4-el) 49.7 % LVAd ap2 34.6 cm\S\2 LVLd ap2 8.0 cm EDV(MOD-sp2) 124.0 ml EDV(sp2-el) 127.7 ml LVAs ap2 23.7 cm\S\2 LVLs ap2 7.2 cm ESV(MOD-sp2) 63.3 ml ESV(sp2-el) 65.9 ml EF(MOD-sp2) 48.9 % EF(sp2-el) 48.4 % LVLd %diff -0.44 % EDV(MOD-bp) 118.2 ml LVLs %diff 4.9 % ESV(MOD-bp) 60.1 ml EF(MOD-bp) 49.2 % SV(MOD-sp4) 56.1 ml SI(MOD-sp4) 24.5 ml/m\S\2 SV(MOD-sp2) 60.7 ml SI(MOD-sp2) 26.5 ml/m\S\2 SV(MOD-bp) 58.1 ml SI(MOD-bp) 25.4 ml/m\S\2 SV(sp4-el) 58.4 ml SI(sp4-el) 25.5 ml/m\S\2 SV(sp2-el) 61.8 ml SI(sp2-el) 27.0 ml/m\S\2 Doppler Measurements and Calculations MV E max fish 60.5 cm/sec MV A max fish 89.0 cm/sec MV E/A 0.68 MV P1/2t max fish 151.0 cm/sec MV P1/2t 63.1 msec MVA(P1/2t) 3.5 cm\S\2 MV dec slope 700.9 cm/sec\S\2 MV dec time 0.39 sec Ao V2 max 117.8 cm/sec Ao max PG 5.5 mmHg Ao max PG (full) 0.02 mmHg SOFIA(V,A) 3.2 cm\S\2 SOFIA(V,D) 3.2 cm\S\2 LV V1 max PG 5.5 mmHg LV V1 max 117.6 cm/sec MR max fish 667.4 cm/sec MR max PG 178.1 mmHg PA V2 max 119.1 cm/sec PA max PG 5.7 mmHg
--- NOTE | 2018-01-14 12:29 | Cardiology Consultation ---
Cardiology Consultation Date of Service January 14, 2018. Cardiology Consultation Indication: Consultation for atrial flutter History: The patient is a 72-year-old female with a past medical history of long -standing hypertension, dyslipidemia, type 2 diabetes, chronic obesity with lymphedema and presumed coronary artery disease with a non-STEMI myocardial infarction in 2000. She was admitted approximately 2 weeks ago with a UTI. She was only recently discharged and then returned to the hospital with symptoms of nausea, vomiting, abdominal pain and diarrhea. While being transported to the hospital the paramedics thought that the patient had atrial flutter. Upon my review of the monitor strips and admission EKG, it appears the patient had baseline artifact and most likely was in sinus rhythm. Subsequent EKGs as well as telemetry indicate normal sinus rhythm. She has no current cardiac complaints. Allergies: Sulfa medications, metformin, Bactrim, statins and Claritin. Reported Home Medications Medications Dose Route/Sig Max Daily Dose Days Date Category Dose Instructions Senokot S (Sennosides-Docusate Sodium) 1 Tab Tab 2 Tab PO DAILY PRN 01/13/18 Reported Nystatin (Nystatin (Topical)) 100,000 Unit/Gm Pow 1 Appln TD TID 01/13/18 Reported ABD FOLDS Nystatin Cream (Nystatin) 90 Appln/30 Gm Cr 0 EXT BID 01/13/18 Reported APPLY TO AFFECTED AREA BID Bactroban 2% Oint (Mupirocin) 66 Appln/22 Gm Oint 1 Appln TD TID 01/13/18 Reported Econazole Nitrate Crm 1% 30 Gm (Econazole Nitrate) 90 Appln/30 Gm Cr 1 Appln TD BID 01/13/18 Reported Ciprodex 0.3-0.1 % (Ciprofloxacin/Dexamethasone) 112 Drops/7.5 Ml Susp 4 Drops OT BID 5 01/13/18 Reported Zofran (Ondansetron HCl) 8 Mg Tab 8 Mg PO TID PRN 01/13/18 Reported [place] 5MG/325MG (Acetaminophen/Hydrocodone Bitart) Tab 2 Tablets PO BID PRN 01/13/18 Reported MAX 4 TABS PER 24 HOURS. Hytrin (Terazosin Hcl) 1 Mg Cap 1 Mg PO HS 01/13/18 Reported Imdur Ext Rel (Isosorbide Mononitrate) 60 Mg Ertab 60 Mg PO QAM 01/13/18 Reported Omnicef (Cefdinir) 300 Mg Cap 300 Mg PO HS 01/13/18 Reported Catapres (Clonidine Hcl) 0.2 Mg Tab 0.2 Mg PO BID 01/13/18 Reported PT HAS THIS MED, NOT ON GMG LIST. Systane (Polyethylene Glycol-Propylene) 1 Mami Mami 1 Drops OP QID PRN 01/13/18 Reported PT HAS THIS MED, NOT ON GMG LIST. Coreg (Carvedilol) 12.5 Mg Tab 12.5 Mg PO BID 01/13/18 Reported PT HAS THIS MED, NOT ON GMG LIST. Topiramate 25 Mg Cap 25 Mg PO BID 01/13/18 Reported PT HAS THIS MED, NOT ON GMG LIST. Zantac (Ranitidine HCl) 150 Mg Tab 150 Mg PO BID 01/13/18 Reported PT HAS THIS MED, NOT ON GMG LIST. Apresoline (Hydralazine Hcl) 100 Mg Tab 100 Mg PO TID 01/13/18 Reported PT HAS THIS MED, NOT ON GMG LIST. Oxygen Gas 2 Liters NA HS 01/13/18 Reported NOT ON GMG LIST. Zaroxolyn (Metolazone) 5 Mg Tab 5 Mg PO WEEKLY 01/01/18 Reported Neurontin (Gabapentin) 300 Mg Cap 300 Mg PO DAILY@MIDDAY 01/01/18 Reported Aristocort 0.1% (Triamcinolone Acet) 90 Appln/30 Gm Cr 1 Dose EXT DIRECTED PRN 11/09/17 Reported Zoloft (Sertraline HCl) 50 Mg Tab 50 Mg PO QAM 11/09/17 Reported Protonix (Pantoprazole Sodium) 40 Mg Tab 40 Mg PO QDD 11/09/17 Reported Nitrostat (Nitroglycerin) 0.4 Mg Tab 0.4 Mg UT PRN 11/09/17 Reported NEEDED FOR CHEST PAIN : ONE TABLET UNDER THE TONGUE EVERY 5 MINUTES, UP TO 3 DOSES. Lantus (Insulin Glargine) 100 Unit/Ml Inj 20 Units SQ BID 11/09/17 Reported Lactinex (Lactobacillus Acidophilus) Tab 1 Tab PO TIDM 11/09/17 Reported Humalog Kwikpen (Insulin Lispro (Human)) 100 Unit/Ml Inj 10 Units SQ AC 11/09/17 Reported HOLD IF BSG < 160 PER GMG LIST. Neurontin (Gabapentin) 300 Mg Cap 600 Mg PO BID 11/09/17 Reported TAKE 2 TABS AM/PM Lasix (Furosemide) 40 Mg Tab 40 Mg PO BID 11/09/17 Reported Flonase Allergy Relief (Fluticasone Propionate (Nasal)) 50 Mcg/Act Spr 1 [place] ANSELMO DAILY 11/09/17 Reported Tricor (Fenofibrate) 145 Mg Tab 145 Mg PO QPM 11/09/17 Reported Estrace (Estradiol Vaginal) 0.1 Mg/Gm Cre 1 Dose PV 3XWK 11/09/17 Reported Crestor (Rosuvastatin Calcium) 40 Mg Tab 40 Mg PO QPM 11/09/17 Reported Klonopin (Clonazepam) 1 Mg Tab 1 Mg PO HS 11/09/17 Reported Vitamin D (Cholecalciferol) 1,000 Unit Tab 1,000 Units PO DAILY 11/09/17 Reported Aspirin Ec (Aspirin) 325 Mg Tab 325 Mg PO QAM 11/09/17 Reported Norvasc (Amlodipine Besylate) 10 Mg Tab 10 Mg PO QAM 11/09/17 Reported Past medical history: As outlined above patient has long-standing history of hypertension, dyslipidemia and diabetes. She also has chronic obesity which contributes greatly to her health problems. Reviewing our records, she has not been seen by cardiology since 2002. She was seen during her last admission by Dr. Heard for sinus bradycardia felt to be drug related. Social history: Patient is a . She lives with her sister. She is a non- smoker. Family history: Significant for mother with heart disease Review of systems: The 10 point review of systems is negative except for the history of chief complaint. Vital Signs Past 12 Hours Date Time Temp Pulse Resp B/P (MAP) Pulse Ox O2 Delivery O2 Flow Rate FiO2 01/14/18 09:44 186/59 (101) 01/14/18 08:00 Room Air 01/14/18 07:00 36.6 79 16 199/82 (121) 95 Room Air 01/14/18 05:07 36.7 88 18 199/85 (123) 95 Room Air 01/14/18 04:00 Room Air 01/14/18 01:50 37.0 80 16 179/87 98 Room Air 01/14/18 01:22 79 20 192/59 96 Room Air 01/14/18 01:18 81 Physical exam: General Appearance: Alert and Oriented x3. NAD. Head: Normocephalic Atraumatic. Eyes: PERRLA, EOMI, conjunctiva and sclera clear Neck: Supple. No carotid bruits noted. No JVD. No HJD. Respiratory: Breath sounds clear to auscultation bilaterally. No w/r/r. Cardiovascular: Reg rate and rhythm. S1 and S2 noted. No murmurs, rubs, gallops. PMI non displace. Abdomen: Normal bowel sounds, soft nontender. no abdominal bruits. Extremities: No edema, no clubbing or cyanosis. distal pulses 2/4 bilaterally. Neuro: No focal deficits. Psychiatric: Normal affect. Last 24 Hours Test 01/13/18 20:26 01/13/18 20:52 01/13/18 22:27 01/13/18 23:37 Activated Partial Thromboplast Time 23.1 SECONDS Partial Thromboplastin Ratio 0.9 White Blood Count 9.60 K/uL Red Blood Count 3.72 M/uL Hemoglobin 10.8 g/dL Hematocrit 32.3 % Mean Corpuscular Volume 86.8 fL Mean Corpuscular Hemoglobin 29.0 pg Mean Corpuscular Hemoglobin Concent 33.4 g/dl Platelet Count 265 K/uL Mean Platelet Volume 9.9 fL Neutrophils (%) (Auto) 56.0 % Lymphocytes (%) (Auto) 34.6 % Monocytes (%) (Auto) 7.5 % Eosinophils (%) (Auto) 1.3 % Basophils (%) (Auto) 0.3 % Neutrophils # (Auto) 5.38 K/uL Lymphocytes # (Auto) 3.32 K/uL Monocytes # (Auto) 0.72 K/uL Eosinophils # (Auto) 0.12 K/uL Basophils # (Auto) 0.03 K/uL RDW Standard Deviation 49.2 fL RDW Coefficient of Variation 15.4 % Immature Granulocyte % (Auto) 0.3 % Immature Granulocyte # (Auto) 0.03 K/uL Sodium Level 141 mmol/L Potassium Level 3.5 mmol/L Chloride Level 106 mmol/L Carbon Dioxide Level 25 mmol/L Anion Gap 10.0 mmol/L Blood Urea Nitrogen 20 mg/dl Creatinine 1.13 mg/dl Est Creatinine Clear Calc Drug Dose 60.7 ml/min Estimated GFR () 56.2 Estimated GFR (Non- 48.5 BUN/Creatinine Ratio 17.4 Random Glucose 186 mg/dl Calcium Level 9.0 mg/dl Magnesium Level 1.7 mg/dl Total Bilirubin 1.2 mg/dl Direct Bilirubin 0.4 mg/dl Aspartate Amino Transf (AST/SGOT) 52 U/L Alanine Aminotransferase (ALT/SGPT) 24 U/L Alkaline Phosphatase 55 U/L Troponin I 0.077 ng/ml Total Protein 6.8 gm/dl Albumin 3.1 gm/dl Lipase 162 U/L Urine Color YELLOW Urine Appearance CLEAR Urine pH >= 9.0 [address] [place] 1.016 Urine Protein 1+ Urine Glucose (UA) NEG Urine Ketones NEG Urine Occult Blood 1+ Urine Nitrite NEG Urine Bilirubin NEG Urine Urobilinogen NEG Urine Leukocyte Esterase NEG Urine WBC (Auto) 1-5 /hpf Urine RBC (Auto) 5-10 /hpf Urine Hyaline Casts (Auto) 1-5 /lpf Urine Epithelial Cells (Auto) >30 /lpf Urine Bacteria (Auto) NEG Venous Blood pH 7.46 Venous Blood Partial Pressure CO2 35 mmHg Venous Blood Partial Pressure O2 55 mmHg Venous Blood HCO3 24 mmol/L Venous Blood Oxygen Saturation 87.3 % Venous Blood Base Excess 0.8 mEq/L Lactic Acid Level 1.0 mmol/L Test 01/13/18 23:54 01/14/18 02:44 01/14/18 05:47 01/14/18 07:26 Troponin I 0.123 ng/ml 0.130 ng/ml Bedside Glucose 228 mg/dl 217 mg/dl White Blood Count 10.40 K/uL Red Blood Count 3.55 M/uL Hemoglobin 10.2 g/dL Hematocrit 30.6 % Mean Corpuscular Volume 86.2 fL Mean Corpuscular Hemoglobin 28.7 pg Mean Corpuscular Hemoglobin Concent 33.3 g/dl Platelet Count 239 K/uL Mean Platelet Volume 9.8 fL Neutrophils (%) (Auto) 61.9 % Lymphocytes (%) (Auto) 27.1 % Monocytes (%) (Auto) 8.2 % Eosinophils (%) (Auto) 2.1 % Basophils (%) (Auto) 0.3 % Neutrophils # (Auto) 6.44 K/uL Lymphocytes # (Auto) 2.82 K/uL Monocytes # (Auto) 0.85 K/uL Eosinophils # (Auto) 0.22 K/uL Basophils # (Auto) 0.03 K/uL RDW Standard Deviation 49.5 fL RDW Coefficient of Variation 15.6 % Immature Granulocyte % (Auto) 0.4 % Immature Granulocyte # (Auto) 0.04 K/uL Sodium Level 140 mmol/L Potassium Level 3.8 mmol/L Chloride Level 108 mmol/L Carbon Dioxide Level 25 mmol/L Anion Gap 7.0 mmol/L Blood Urea Nitrogen 19 mg/dl Creatinine 1.13 mg/dl Est Creatinine Clear Calc Drug Dose 52.7 ml/min Estimated GFR () 56.2 Estimated GFR (Non- 48.5 BUN/Creatinine Ratio 16.7 Random Glucose 216 mg/dl Calcium Level 8.5 mg/dl Magnesium Level 2.1 mg/dl Test 01/14/18 07:32 01/14/18 11:27 Activated Partial Thromboplast Time 30.6 SECONDS Partial Thromboplastin Ratio 1.2 Bedside Glucose 247 mg/dl Echocardiogram: -- Conclusions -- * Normal LV chamber size with moderate concentric LVH. * Normal LV systolic function without regional wall motion abnormality, EF 60 -65%. * Grade II diastolic dysfunction. * There is severe mitral annular calcification. Calcified mitral apparatus causing mitral stenosis. There is mild mitral regurgitation. There is mild mitral stenosis. * Aortic valve sclerosis mild, without significant aortic valvular stenosis. * Compared to prior study, there is no significant Impression: 1. Possible gastroenteritis or C. difficile 2. Normal sinus rhythm on telemetry and previous EKGs 3. Morbid obesity 4. Diabetes Recommendations: I think we can discontinue the intravenous heparin at this time. She can stay on telemetry to exclude possible arrhythmias. I do not believe any additional cardiac testing or treatment is indicated at this time.
--- NOTE | 2018-01-14 14:46 | Pharmacy Progress Note ---
Glycemic Control: Initial Note Date of Service January 14, 2018. Scope Glycemic Pharmacist to provide recommendations to improve glycemic control (all ICU patients are screened for hyperglycemia and treatment recommendations are provided per protocol). Pt identified with hyperglycemia (BSG above 180) while admitted to [facility] ([facility]). Subjective The patient is a 72 year old female admitted on January 14, 2018 at 01:24 for NVD and parox a fib/flutter. Patient's past medical history is significant for type 2 diabetes mellitus. Objective Height (Feet): 4 Height (Inches): 11.00 Weight (Kilograms): 120.500 Accuchecks BSG (last 24hrs): Test 01/13/18 20:52 01/14/18 02:44 01/14/18 05:47 01/14/18 07:26 Random Glucose 186 mg/dl (70-99) 216 mg/dl (70-99) Bedside Glucose 228 mg/dl (70-90) 217 mg/dl (70-90) Test 01/14/18 11:27 Bedside Glucose 247 mg/dl (70-90) Laboratory Data (last 24hrs) Test 01/13/18 20:52 01/14/18 05:47 Anion Gap 10.0 mmol/L 7.0 mmol/L BUN/Creatinine Ratio 17.4 16.7 Blood Urea Nitrogen 20 mg/dl 19 mg/dl Creatinine 1.13 mg/dl 1.13 mg/dl Potassium Level 3.5 mmol/L 3.8 mmol/L Sodium Level 141 mmol/L 140 mmol/L White Blood Count 9.60 K/uL 10.40 K/uL Red Blood Count 3.72 M/uL 3.55 M/uL Hemoglobin 10.8 g/dL 10.2 g/dL Hematocrit 32.3 % 30.6 % Mean Corpuscular Volume 86.8 fL 86.2 fL Mean Corpuscular Hemoglobin 29.0 pg 28.7 pg Mean Corpuscular Hemoglobin Concent 33.4 g/dl 33.3 g/dl Platelet Count 265 K/uL 239 K/uL Mean Platelet Volume 9.9 fL 9.8 fL Neutrophils (%) (Auto) 56.0 % 61.9 % Lymphocytes (%) (Auto) 34.6 % 27.1 % Monocytes (%) (Auto) 7.5 % 8.2 % Eosinophils (%) (Auto) 1.3 % 2.1 % Basophils (%) (Auto) 0.3 % 0.3 % Neutrophils # (Auto) 5.38 K/uL 6.44 K/uL Lymphocytes # (Auto) 3.32 K/uL 2.82 K/uL Monocytes # (Auto) 0.72 K/uL 0.85 K/uL Eosinophils # (Auto) 0.12 K/uL 0.22 K/uL Basophils # (Auto) 0.03 K/uL 0.03 K/uL Recent Pertinent Medications Outpatient Anti-diabetic Regimen: * Lantus 20 units BID * Novolog 10 units w/ each meal (hold if BSG less than 160) * A1c = 6.8% The patient is currently receiving: * Basal Insulin: Lantus 5 units every 24 hours * Correctional Insulin: Novolog Correction per scale ACHS Goal Range: Low 140 mg/dL - High 180 mg/dL Correction Factor: 25 mg/dL/unit * Prandial Insulin: Per carb ratio of 1 unit per ___ grams CHO consumed Assessment & Plan ASSESSMENT: 01/14/18: * Reasonably well controlled type 2 diabetic admitted w/ NVD and parox a fib / flutter; possible viral gastroenteritis * BSGs have been > 180 since admission. She appears to be basal deficient. I agree with reducing her basal dose however she may need a larger dose than is currently ordered w/ current stressors. * Might forgo adding a carb ratio today should she experience vomiting following a meal that was covered w/ rapid acting insulin. However one will need to add carb coverage once pt no longer experiencing vomiting. RECOMMEND: * Increasing Lantus to 10 units SQ BID - hold if BSG less than 120 * Continuing correction factor 25 mg/dl/unit * No carb ratio for now, but would recommend 1 unit per 10gm CHO consumed when tolerating a diet w/o NV * Changing goal range Low 120 mg/dL - High 160 mg/dL Pharmacy will continue to provide recommendations in EMR while patient admitted to /2E. Physicians may request pharmacy to continue to follow patient when transferred out of the ICU and/or consult pharmacy to write glycemic control orders * Please note that the plan above was derived based on current level of insulin resistance and hospital stress. These recommendations are appropriate for inpatient admission only. Plan of care upon discharge will need to be reassessed to avoid potential outpatient hypo/hyperglycemia. Thank you.
[2018-01-14 16:24] LABS: PTT PATIENT 51.6 SECONDS (21.0-31.0)
[2018-01-14] MEDS: PANTOprazole SOD 40 MG TAB PO SCH (16:44)
[2018-01-14] MEDS ORDERED: AMLODIPINE BESYLATE 5 MG TAB PO ONE (18:00)
[2018-01-14] MEDS ORDERED: ISOSORBIDE MONONITRATE 60 MG TABCR PO ONE (18:00)
[2018-01-14] MEDS ORDERED: ROSUVASTATIN CALCIUM 20 MG TAB PO SCH (21:00)
[2018-01-14] MEDS: FENOFIBRATE 145 MG TAB PO SCH (21:32)
[2018-01-14] MEDS: CLONAZEPAM 1 MG TAB PO SCH (21:36)
[2018-01-14] MEDS: INSULIN GLARGINE SOLOSTAR 100 UNITS/ML 3 ML PEN SQ SCH (21:37)
[2018-01-15 00:03] VITALS: BP 136/51; PULSE 64; TEMP 36.8; O2SAT 95
--- NOTE | 2018-01-15 03:56 | Progress Note ---
Medicine Progress Note Date & Time of Visit: January 15, 2018 at 03:56. Subjective late entry date of service 01/14/18 seen resting in bed, comfortable diarrhea improving, no abdominal pain/nausea no chest pain, dyspnea, palpitations denies other symptoms Objective Last 8 Hrs Date Time Temp Pulse Resp B/P (MAP) Pulse Ox O2 Delivery O2 Flow Rate FiO2 01/15/18 00:03 36.8 64 19 136/51 (79) 95 Room Air 01/14/18 23:59 Room Air 01/14/18 20:00 Room Air Physical Exam: General- alert, oriented x 3, not in distress, speaks in sentences with no effort Head- atraumatic Eyes- anicteric ENT- oropharynx clear Neck- supple, no JVD Lungs- clear to auscultation bl Heart- regular rhythm; no murmur, normal rate Abdomen- normal bowel sounds, soft, nontender Extremities- grade 1 lower leg edema, no calf tenderness; peripheral pulses intact Neuro- alert, oriented x 3;no gross focal neuro deficits Skin- warm & dry Laboratory Results: Last 24 Hours Test 01/14/18 05:47 01/14/18 07:26 01/14/18 07:32 01/14/18 11:27 White Blood Count 10.40 K/uL Red Blood Count 3.55 M/uL Hemoglobin 10.2 g/dL Hematocrit 30.6 % Mean Corpuscular Volume 86.2 fL Mean Corpuscular Hemoglobin 28.7 pg Mean Corpuscular Hemoglobin Concent 33.3 g/dl Platelet Count 239 K/uL Mean Platelet Volume 9.8 fL Neutrophils (%) (Auto) 61.9 % Lymphocytes (%) (Auto) 27.1 % Monocytes (%) (Auto) 8.2 % Eosinophils (%) (Auto) 2.1 % Basophils (%) (Auto) 0.3 % Neutrophils # (Auto) 6.44 K/uL Lymphocytes # (Auto) 2.82 K/uL Monocytes # (Auto) 0.85 K/uL Eosinophils # (Auto) 0.22 K/uL Basophils # (Auto) 0.03 K/uL RDW Standard Deviation 49.5 fL RDW Coefficient of Variation 15.6 % Immature Granulocyte % (Auto) 0.4 % Immature Granulocyte # (Auto) 0.04 K/uL Sodium Level 140 mmol/L Potassium Level 3.8 mmol/L Chloride Level 108 mmol/L Carbon Dioxide Level 25 mmol/L Anion Gap 7.0 mmol/L Blood Urea Nitrogen 19 mg/dl Creatinine 1.13 mg/dl Est Creatinine Clear Calc Drug Dose 52.7 ml/min Estimated GFR () 56.2 Estimated GFR (Non- 48.5 BUN/Creatinine Ratio 16.7 Random Glucose 216 mg/dl Calcium Level 8.5 mg/dl Magnesium Level 2.1 mg/dl Troponin I 0.130 ng/ml Bedside Glucose 217 mg/dl 247 mg/dl Activated Partial Thromboplast Time 30.6 SECONDS Partial Thromboplastin Ratio 1.2 Test 01/14/18 15:47 01/14/18 16:32 01/14/18 20:08 Activated Partial Thromboplast Time 51.6 SECONDS Partial Thromboplastin Ratio 2.0 Bedside Glucose 206 mg/dl 207 mg/dl Assessment & Plan 1. Paroxysmal atrial fibrillation, atrial flutter New-onset Patient currently in NSR multifactorial : Uncontrolled hypertension secondary to illness, missed meds. Borderline electrolyte abnormalities from acute diarrheal illness, rule out C. diff (recent antibiotic Rx, recent confinement) -- evaluated by Cardiology Echo performed -- remains in SR already on Carvedilol Heparin discontinued -- continue Telemetry monitoring DIARRHEA likely Viral Gastroenteritis -- C diff pending -- improving -- monitor hold Lasix HTN -- additional ISMN ordered -- continue other usual meds PRN Clonidine 2. Chronic diastolic heart failure EF 55% Patient on the dry side. -- hold Lasix 3. DM2, insulin-requiring. well-controlled as of recent inpatient HgA1c. 4. Chronic anemia. Hemoglobin at baseline. -- monitor Hg DVT prophylaxis IV heparin discontinued FULL CODE. Dispo lives at home Current Inpatient Medications: Current Inpatient Medications Medications (Trade) Dose Ordered Sig/Hansel Route Start Time Stop Time Status Last Admin Dose Admin Carvedilol (Coreg Tab) 12.5 mg BID PO 01/14/18 09:00 02/13/18 08:59 01/14/18 21:30 12.5 MG Acetaminophen (Tylenol Tab) 650 mg Q4H PRN PO 01/14/18 01:45 02/13/18 01:44 Nitroglycerin (Nitrostat Tab) 0.4 mg UD PRN SL 01/14/18 01:45 02/13/18 01:44 Glucose (Glucose 40% Gel) 15-30 GRAMS 15 GRAMS... UD PRN PO 01/14/18 01:45 02/13/18 01:44 Glucose (Glucose Chew Tab) 4-8 Tablets 4 Tabl... UD PRN PO 01/14/18 01:45 02/13/18 01:44 Glucagon (Glucagon Inj) 1 mg UD PRN SQ 01/14/18 01:45 02/13/18 01:44 Carbohydrates (Carbohydrates For Hypoglycemia) 15-30 GRAMS 15 grams if BSG 54-69... UD PRN PO 01/14/18 01:45 02/13/18 01:44 Hydromorphone HCl (Dilaudid Inj) 0.5 mg Q3H PRN IV 01/14/18 01:45 01/28/18 01:44 Prochlorperazine Edisylate 5 mg/ Syringe 5 ml @ 5 mls/min Q6H PRN IV 01/14/18 01:45 02/13/18 01:44 01/14/18 13:55 5 MLS/MIN Amlodipine Besylate (Norvasc Tab) 10 mg QAM PO 01/14/18 09:00 02/13/18 08:59 01/14/18 08:07 10 MG Ciprofloxacin/ Dexamethasone (Ciprodex Otic Susp) 4 drops BID OT 01/14/18 09:00 02/13/18 08:59 01/14/18 21:28 4 DROPS Clonazepam (Klonopin Tab) 1 mg HS PO 01/14/18 21:00 02/13/18 20:59 01/14/18 21:36 1 MG Fenofibrate (Tricor Tab) 145 mg QPM PO 01/14/18 21:00 02/13/18 20:59 01/14/18 21:32 145 MG Fluticasone Propionate (Flonase Nasal [place]) 1 sprays DAILY ANSELMO 01/14/18 09:00 02/13/18 08:59 01/14/18 08:01 1 SPRAYS Gabapentin (Neurontin Cap) 300 mg DAILY@1400 PO 01/14/18 14:00 02/13/18 13:59 01/14/18 13:56 300 MG Gabapentin (Neurontin Cap) 600 mg BID PO 01/14/18 09:00 02/13/18 08:59 01/14/18 21:31 600 MG Hydralazine HCl (Apresoline Tab) 100 mg TID PO 01/14/18 09:00 02/13/18 08:59 01/14/18 21:31 100 MG Acetaminophen/ Hydrocodone Bitart ([place] 5/325 Tab) 1 tab QID PRN PO 01/14/18 01:45 01/28/18 01:44 01/14/18 02:56 1 TAB Isosorbide Mononitrate (Imdur Ext Rel Tab) 60 mg QAM PO 01/14/18 09:00 02/13/18 08:59 01/14/18 08:06 60 MG Lactobacillus Acidophilus (Floranex Tab) 1 tab TIDM PO 01/14/18 07:30 02/13/18 07:59 01/14/18 16:42 1 TAB Pantoprazole Sodium (Protonix Tab) 40 mg QDD PO 01/14/18 16:45 02/13/18 17:59 01/14/18 16:44 40 MG Ranitidine HCl (zANTac TAB) 150 mg BID PO 01/14/18 09:00 02/13/18 08:59 01/14/18 21:32 150 MG Sertraline HCl (Zoloft Tab) 50 mg QAM PO 01/14/18 09:00 02/13/18 08:59 01/14/18 08:08 50 MG Terazosin HCl (Hytrin Cap) 1 mg HS PO 01/14/18 21:00 02/13/18 20:59 01/14/18 21:29 1 MG Artificial Tears (Artificial Tears) 1 drops QID PRN OP 01/14/18 01:45 02/13/18 01:44 Topiramate (Topamax Tab) 25 mg BID PO 01/14/18 09:00 02/13/18 08:59 01/14/18 21:33 25 MG Insulin Aspart (novoLOG ASPART) SLIDING SCALE If C... ACHS SC 01/14/18 07:00 02/13/18 06:59 01/14/18 21:39 2 UNITS Dextrose (Dextrose 50% 50ML Syringe) 25-50ML 25ML FOR ... UD PRN IV 01/14/18 01:45 02/13/18 01:44 Aspirin (Ecotrin Tab) 81 mg QAM PO 01/14/18 09:00 02/13/18 08:59 01/14/18 08:03 81 MG Clonidine HCl (Catapres Tab) 0.1 mg Q6H PRN PO 01/14/18 08:30 02/13/18 08:29 01/14/18 16:42 0.1 MG Insulin Glargine (Lantus Solostar Pen) See Protocol Text BID SQ 01/14/18 21:00 02/13/18 20:59 01/14/18 21:37 10 UNITS
[2018-01-15 04:27] VITALS: BP 151/56; PULSE 72; TEMP 36.9; O2SAT 93
[2018-01-15 04:42] LABS: BASO % 0.3 %; BASO ABS # 0.03 K/uL (0-0.2); EOS % 4.7 %; EOS ABS # 0.42 K/uL (0-0.5); HEMATOCRIT 27.6 % (37-47); HEMOGLOBIN 9.1 g/dL (12.0-16.0); IG# 0.03 K/uL (0.00-0.02); LYMPH % 35.7 %; LYMPH ABS # 3.18 K/uL (1.2-3.4); MEAN CELL VOLUME 87.9 fL (80-100); MONO % 9.8 %; MONO ABS # 0.87 K/uL (0.11-0.59); NEUT % 49.2 %; NEUT ABS # 4.37 K/uL (1.4-6.5); PLATELET COUNT 200 K/uL (130-400); RED CELL DISTRIBUTION WIDTH CV 16.1 % (11.5-14.5); RED CELL DISTRIBUTION WIDTH SD 51.1 fL (36.4-46.3)
[2018-01-15 06:07] LABS: PTT PATIENT 20.8 SECONDS (21.0-31.0)
[2018-01-15 07:10] VITALS: BP 189/66; PULSE 64; TEMP 37.1; O2SAT 92
[2018-01-15] MEDS: INSULIN ASPART 100 UNITS/ML 3 ML PEN SC SCH ×4 (07:58→20:47)
[2018-01-15] MEDS: INSULIN GLARGINE SOLOSTAR 100 UNITS/ML 3 ML PEN SQ SCH ×2 (07:59→20:45)
[2018-01-15] MEDS: FLUTICASONE PROPIONATE NA SPR 16 GM BTL NAE SCH (07:59)
[2018-01-15] MEDS: LACTOBACILLUS ACIDOPHILUS (FLORANEX) TAB PO SCH ×3 (07:59→16:56)
[2018-01-15] MEDS: CIPRO 0.3%/DEXAMETHASONE 0.1% OTIC SUSP 7.5ML OT SCH ×2 (08:00→20:52)
[2018-01-15] MEDS: ASPIRIN 81 MG ECTAB PO SCH (08:01)
[2018-01-15] MEDS: ISOSORBIDE MONONITRATE 60 MG TABCR PO SCH (08:01)
[2018-01-15] MEDS: CARVEDILOL 12.5 MG TAB PO SCH ×2 (08:01→20:47)
[2018-01-15] MEDS: AMLODIPINE BESYLATE 5 MG TAB PO SCH (08:02)
[2018-01-15] MEDS: GABAPENTIN 300 MG CAP PO SCH ×3 (08:02→20:48)
[2018-01-15] MEDS: TOPIRAMATE 25 MG TAB PO SCH ×2 (08:03→20:50)
[2018-01-15] MEDS: RANITIDINE HCL 150 MG TAB PO SCH ×2 (08:03→20:48)
[2018-01-15] MEDS: SERTRALINE HCL 50 MG TAB PO SCH (08:03)
[2018-01-15] MEDS ORDERED: INSULIN GLARGINE SOLOSTAR 100 UNITS/ML 3 ML PEN SQ SCH (09:00)
[2018-01-15] MEDS ORDERED: AMLODIPINE BESYLATE 5 MG TAB PO SCH (09:00)
[2018-01-15] MEDS: CLONIDINE HCL 0.1 MG TAB PO PRN (10:51)
[2018-01-15 11:53] VITALS: BP 180/45; PULSE 76; TEMP 36.8; O2SAT 93
[2018-01-15] MEDS ORDERED: ISOSORBIDE MONONITRATE 60 MG TABCR PO ONE (12:30)
[2018-01-15] MEDS ORDERED: PHARMACY GLYCEMIC MGMT CONSULT PRN (12:51)
--- NOTE | 2018-01-15 13:22 | Pharmacy Progress Note ---
Glycemic Control Intl Consult Date of Service January 15, 2018. Scope Glycemic Pharmacist consulted by Dr Lutz on 01/15/18 for glycemic control and to write orders per [facility] inpatient glycemic control protocol Objective Weight (Kilograms): 120.400 Accuchecks BSG (last 24hrs): Test 01/14/18 16:32 01/14/18 20:08 01/15/18 07:20 01/15/18 11:04 Bedside Glucose 206 mg/dl (70-90) 207 mg/dl (70-90) 188 mg/dl (70-90) 243 mg/dl (70-90) Laboratory Data (last 24hrs) Test 01/15/18 04:13 White Blood Count 8.90 K/uL Red Blood Count 3.14 M/uL Hemoglobin 9.1 g/dL Hematocrit 27.6 % Mean Corpuscular Volume 87.9 fL Mean Corpuscular Hemoglobin 29.0 pg Mean Corpuscular Hemoglobin Concent 33.0 g/dl Platelet Count 200 K/uL Mean Platelet Volume 10.0 fL Neutrophils (%) (Auto) 49.2 % Lymphocytes (%) (Auto) 35.7 % Monocytes (%) (Auto) 9.8 % Eosinophils (%) (Auto) 4.7 % Basophils (%) (Auto) 0.3 % Neutrophils # (Auto) 4.37 K/uL Lymphocytes # (Auto) 3.18 K/uL Monocytes # (Auto) 0.87 K/uL Eosinophils # (Auto) 0.42 K/uL Basophils # (Auto) 0.03 K/uL Recent Pertinent Medications Outpatient Anti-diabetic Regimen: * Lantus 20 units BID * Humalog 10 units with each meal (hold if BSG < 160) * A1c = 6.8 % 01/02/18 The patient is currently receiving: * Basal insulin: Lantus 10 units every 12 hours * Correctional Insulin: Novolog Correction per scale ACHS Goal Range: Low 140 mg/dL - High 180 mg/dL Correction Factor: 25 mg/dL/unit * Prandial insulin: Per carb ratio of 1 unit per -- grams CHO consumed Risk Factors for Insulin Resistance/Sensitivity: * Diet: Clear liquid Assessment & Plan ASSESSMENT: * 72 y/o female admitted yesterday for A fib, with hyperglycemia since admission d/t stress and reduced insulin doses compared to her outpatient regimen. * She uses basal + bolus insulin as an outpatient. She is currently missing her prandial coverage (was not initially added due to poor po intake) and is on a reduced basal dose. * She received 26 units of insulin yesterday * Fasting and postprandial BSGs are elevated * Will plan to increase her basal if BSGs remain elevated and add a carb ratio to provide prandial coverage now that she has increased po intake PLAN FOR INPATIENT GLYCEMIC CONTROL: * Basal insulin with LANTUS per scale SQ BID * 10 units for BSG less than 160 * 17 units for BSG 160 or above * Correctional Insulin with NOVOLOG per scale ACHS or Q6hrs while NPO * TIGHTEN Goal Range: Low 120 mg/dL - High 160 mg/dL * Correction Factor: 25 mg/dL/unit * ADD Nutritional / Prandial insulin per carb ratio of 1 unit per 10 grams CHO consumed DISCHARGE RECOMMENDATIONS: * A1c indicates excellent outpatient control * Okay to resume outpatient regimen on discharge as long as patient not experiencing hypoglycemia Thank you.
[2018-01-15 15:15] VITALS: BP 158/59; PULSE 62; TEMP 37.2; O2SAT 93
[2018-01-15] MEDS: PANTOprazole SOD 40 MG TAB PO SCH (16:56)
--- NOTE | 2018-01-15 18:39 | Progress Note ---
Medicine Progress Note Date & Time of Visit: January 15, 2018 at 18:39. Subjective resting in bedside chair comfortable in good spirits states she feels that she is improving less diarrhea no chest pain, dyspnea, palpitations, dizziness no other symptoms Objective Last 8 Hrs Date Time Temp Pulse Resp B/P (MAP) Pulse Ox O2 Delivery O2 Flow Rate FiO2 01/15/18 16:00 Room Air 01/15/18 15:15 37.2 62 19 158/59 (92) 93 Room Air 01/15/18 12:00 Room Air 01/15/18 11:53 36.8 76 19 180/45 (90) 93 Room Air Physical Exam: General- alert, oriented x 3, not in distress, speaks in sentences with no effort Eyes- anicteric Neck-no JVD Lungs- clear breath sounds bilaterally Heart- regular rhythm; no murmur, normal rate Abdomen- normal bowel sounds, soft, nontender Extremities- grade 1 lower leg edema, no calf tenderness; peripheral pulses intact Neuro- alert, oriented x 3;no gross focal neuro deficits Skin- warm & dry Laboratory Results: Last 24 Hours Test 01/14/18 20:08 01/15/18 04:13 01/15/18 05:40 01/15/18 07:20 Bedside Glucose 207 mg/dl 188 mg/dl White Blood Count 8.90 K/uL Red Blood Count 3.14 M/uL Hemoglobin 9.1 g/dL Hematocrit 27.6 % Mean Corpuscular Volume 87.9 fL Mean Corpuscular Hemoglobin 29.0 pg Mean Corpuscular Hemoglobin Concent 33.0 g/dl Platelet Count 200 K/uL Mean Platelet Volume 10.0 fL Neutrophils (%) (Auto) 49.2 % Lymphocytes (%) (Auto) 35.7 % Monocytes (%) (Auto) 9.8 % Eosinophils (%) (Auto) 4.7 % Basophils (%) (Auto) 0.3 % Neutrophils # (Auto) 4.37 K/uL Lymphocytes # (Auto) 3.18 K/uL Monocytes # (Auto) 0.87 K/uL Eosinophils # (Auto) 0.42 K/uL Basophils # (Auto) 0.03 K/uL RDW Standard Deviation 51.1 fL RDW Coefficient of Variation 16.1 % Immature Granulocyte % (Auto) 0.3 % Immature Granulocyte # (Auto) 0.03 K/uL Activated Partial Thromboplast Time 20.8 SECONDS Partial Thromboplastin Ratio 0.8 Test 01/15/18 11:04 01/15/18 16:31 Bedside Glucose 243 mg/dl 199 mg/dl Assessment & Plan Laboratory Results: 1. Paroxysmal atrial fibrillation, atrial flutter New-onset Patient currently in NSR multifactorial : Uncontrolled hypertension secondary to illness, missed meds. Borderline electrolyte abnormalities from acute diarrheal illness, rule out C. diff (recent antibiotic Rx, recent confinement) -- evaluated by Cardiology Echo performed -- continues to be in SR already on Carvedilol Heparin discontinued -- continue Telemetry monitoring DIARRHEA likely Viral Gastroenteritis -- C diff pending -- continues to improve -- monitor hold Lasix -- advance diet HTN -- additional ISMN ordered -- continue other usual meds PRN Clonidine Chronic diastolic heart failure EF 55% Patient on the dry side. -- hold Lasix DM2, insulin-requiring. well-controlled as of recent inpatient HgA1c. Chronic anemia. Hemoglobin at baseline. -- monitor Hg DVT prophylaxis IV heparin discontinued FULL CODE. Dispo lives at home Current Inpatient Medications: Current Inpatient Medications Medications (Trade) Dose Ordered Sig/Hansel Route Start Time Stop Time Status Last Admin Dose Admin Carvedilol (Coreg Tab) 12.5 mg BID PO 01/14/18 09:00 02/13/18 08:59 01/15/18 08:01 12.5 MG Acetaminophen (Tylenol Tab) 650 mg Q4H PRN PO 01/14/18 01:45 02/13/18 01:44 Nitroglycerin (Nitrostat Tab) 0.4 mg UD PRN SL 01/14/18 01:45 02/13/18 01:44 Glucose (Glucose 40% Gel) 15-30 GRAMS 15 GRAMS... UD PRN PO 01/14/18 01:45 02/13/18 01:44 Glucose (Glucose Chew Tab) 4-8 Tablets 4 Tabl... UD PRN PO 01/14/18 01:45 02/13/18 01:44 Glucagon (Glucagon Inj) 1 mg UD PRN SQ 01/14/18 01:45 02/13/18 01:44 Carbohydrates (Carbohydrates For Hypoglycemia) 15-30 GRAMS 15 grams if BSG 54-69... UD PRN PO 01/14/18 01:45 02/13/18 01:44 Hydromorphone HCl (Dilaudid Inj) 0.5 mg Q3H PRN IV 01/14/18 01:45 01/28/18 01:44 Prochlorperazine Edisylate 5 mg/ Syringe 5 ml @ 5 mls/min Q6H PRN IV 01/14/18 01:45 02/13/18 01:44 01/14/18 13:55 5 MLS/MIN Amlodipine Besylate (Norvasc Tab) 10 mg QAM PO 01/14/18 09:00 02/13/18 08:59 01/15/18 08:02 10 MG Ciprofloxacin/ Dexamethasone (Ciprodex Otic Susp) 4 drops BID OT 01/14/18 09:00 02/13/18 08:59 01/15/18 08:00 4 DROPS Clonazepam (Klonopin Tab) 1 mg HS PO 01/14/18 21:00 02/13/18 20:59 01/14/18 21:36 1 MG Fenofibrate (Tricor Tab) 145 mg QPM PO 01/14/18 21:00 02/13/18 20:59 01/14/18 21:32 145 MG Fluticasone Propionate (Flonase Nasal [place]) 1 sprays DAILY ANSELMO 01/14/18 09:00 02/13/18 08:59 01/15/18 07:59 1 SPRAYS Gabapentin (Neurontin Cap) 300 mg DAILY@1400 PO 01/14/18 14:00 02/13/18 13:59 01/15/18 13:02 300 MG Gabapentin (Neurontin Cap) 600 mg BID PO 01/14/18 09:00 02/13/18 08:59 01/15/18 08:02 600 MG Hydralazine HCl (Apresoline Tab) 100 mg TID PO 01/14/18 09:00 02/13/18 08:59 01/15/18 13:02 100 MG Acetaminophen/ Hydrocodone Bitart ([place] 5/325 Tab) 1 tab QID PRN PO 01/14/18 01:45 01/28/18 01:44 01/14/18 02:56 1 TAB Lactobacillus Acidophilus (Floranex Tab) 1 tab TIDM PO 01/14/18 07:30 02/13/18 07:59 01/15/18 16:56 1 TAB Pantoprazole Sodium (Protonix Tab) 40 mg QDD PO 01/14/18 16:45 02/13/18 17:59 01/15/18 16:56 40 MG Ranitidine HCl (zANTac TAB) 150 mg BID PO 01/14/18 09:00 02/13/18 08:59 01/15/18 08:03 150 MG Sertraline HCl (Zoloft Tab) 50 mg QAM PO 01/14/18 09:00 02/13/18 08:59 01/15/18 08:03 50 MG Terazosin HCl (Hytrin Cap) 1 mg HS PO 01/14/18 21:00 02/13/18 20:59 01/14/18 21:29 1 MG Artificial Tears (Artificial Tears) 1 drops QID PRN OP 01/14/18 01:45 02/13/18 01:44 Topiramate (Topamax Tab) 25 mg BID PO 01/14/18 09:00 02/13/18 08:59 01/15/18 08:03 25 MG Insulin Aspart (novoLOG ASPART) SLIDING SCALE If C... ACHS SC 01/14/18 07:00 02/13/18 06:59 01/15/18 16:54 2 UNITS Dextrose (Dextrose 50% 50ML Syringe) 25-50ML 25ML FOR ... UD PRN IV 01/14/18 01:45 02/13/18 01:44 Aspirin (Ecotrin Tab) 81 mg QAM PO 01/14/18 09:00 02/13/18 08:59 01/15/18 08:01 81 MG Clonidine HCl (Catapres Tab) 0.1 mg Q6H PRN PO 01/14/18 08:30 02/13/18 08:29 01/15/18 10:51 0.1 MG Insulin Glargine (Lantus Solostar Pen) See Protocol Text BID SQ 01/14/18 21:00 02/13/18 20:59 01/15/18 07:59 10 UNITS Isosorbide Mononitrate (Imdur Ext Rel Tab) 120 mg QAM PO 01/16/18 09:00 02/15/18 08:59 Miscellaneous Information (Consult Glycemic Management Pharmacy) 1 ea UD PRN N/A 01/15/18 12:51 02/14/18 12:50
[2018-01-15 19:10] VITALS: BP 166/66; PULSE 58; TEMP 36.7; O2SAT 95
[2018-01-15] MEDS: FENOFIBRATE 145 MG TAB PO SCH (20:50)
[2018-01-15] MEDS: CLONAZEPAM 1 MG TAB PO SCH (20:51)
[2018-01-16] VITALS (8 sets, daily range): BP systolic 138–172; BP diastolic 48–64; PULSE 60–70; TEMP 36.5–36.8; O2SAT 93–97
[2018-01-16 04:26] LABS: BASO % 0.5 %; BASO ABS # 0.04 K/uL (0-0.2); EOS % 4.4 %; EOS ABS # 0.38 K/uL (0-0.5); HEMATOCRIT 26.4 % (37-47); HEMOGLOBIN 8.8 g/dL (12.0-16.0); IG# 0.03 K/uL (0.00-0.02); LYMPH % 38.9 %; LYMPH ABS # 3.35 K/uL (1.2-3.4); MEAN CELL VOLUME 87.7 fL (80-100); MEAN CORPUSCULAR HEMOGLOBIN 29.2 pg (25-34); MEAN CORPUSCULAR HGB CONC 33.3 g/dl (32-36); MEAN PLATELET VOLUME 9.9 fL (7.4-10.4); MONO % 8.9 %; MONO ABS # 0.77 K/uL (0.11-0.59); NEUT ABS # 4.04 K/uL (1.4-6.5); PLATELET COUNT 222 K/uL (130-400); RED CELL DISTRIBUTION WIDTH SD 50.6 fL (36.4-46.3); WHITE BLOOD COUNT 8.61 K/uL (4.8-10.8)
[2018-01-16 04:42] LABS: CALCIUM 7.8 mg/dl (8.5-10.1); CREATININE 1.37 mg/dl (0.60-1.20); POTASSIUM 3.7 mmol/L (3.5-5.1)
[2018-01-16 05:17] LABS: PTT PATIENT 19.7 SECONDS (21.0-31.0)
[2018-01-16] MEDS: HEPARIN SOD 5000 UNIT/0.5 ML CARP SQ SCH ×2 (06:23→13:52)
[2018-01-16] MEDS: INSULIN ASPART 100 UNITS/ML 3 ML PEN SC SCH ×4 (08:02→21:32)
[2018-01-16] MEDS: INSULIN GLARGINE SOLOSTAR 100 UNITS/ML 3 ML PEN SQ SCH ×2 (08:03→21:33)
[2018-01-16] MEDS: LACTOBACILLUS ACIDOPHILUS (FLORANEX) TAB PO SCH ×3 (08:04→17:00)
[2018-01-16] MEDS: CIPRO 0.3%/DEXAMETHASONE 0.1% OTIC SUSP 7.5ML OT SCH ×2 (08:05→21:20)
[2018-01-16] MEDS: FLUTICASONE PROPIONATE NA SPR 16 GM BTL NAE SCH (08:05)
[2018-01-16] MEDS: ASPIRIN 81 MG ECTAB PO SCH (08:06)
[2018-01-16] MEDS: CARVEDILOL 12.5 MG TAB PO SCH ×2 (08:06→21:19)
[2018-01-16] MEDS: GABAPENTIN 300 MG CAP PO SCH ×3 (08:07→21:18)
[2018-01-16] MEDS: ISOSORBIDE MONONITRATE 60 MG TABCR PO SCH (08:07)
[2018-01-16] MEDS: SERTRALINE HCL 50 MG TAB PO SCH (08:08)
[2018-01-16] MEDS: AMLODIPINE BESYLATE 5 MG TAB PO SCH (08:08)
[2018-01-16] MEDS: TOPIRAMATE 25 MG TAB PO SCH ×2 (08:08→21:18)
[2018-01-16] MEDS: RANITIDINE HCL 150 MG TAB PO SCH ×2 (09:28→21:19)
--- NOTE | 2018-01-16 09:43 | Pharmacy Progress Note ---
Pharmacy Glycemic Short Note 2 Date of Service January 16, 2018. OUTPATIENT ANTIDIABETIC REGIMEN: * Lantus 20 units BID * Humalog 10 units with each meal (hold if BSG < 160) * A1c = 6.8 % 01/02/18 Test 01/15/18 11:04 01/15/18 16:31 01/15/18 20:41 01/16/18 04:04 Bedside Glucose 243 mg/dl (70-90) 199 mg/dl (70-90) 188 mg/dl (70-90) Random Glucose 145 mg/dl (70-99) Test 01/16/18 07:22 Bedside Glucose 154 mg/dl (70-90) ASSESSMENT: 01/16/18 * Ms. White received 28 units of insulin yesterday * Changes to causes of insulin resistance/sensitivity: * Diet advanced further * SCr up slightly from baseline * Fasting BSG is improved; however, she was supposed to receive 17 units of Lantus per the scale last night and only received 10. BSGs are somewhat elevated today but are improving from yesterday. 17 units may be too much now so will adjust scale to provide only a slightly higher dose if BSGs still elevated. * Postprandial BSGs improved after adding a carb ratio. Will continue the same for now. 01/15/18 * 72 y/o female admitted yesterday for A fib, with hyperglycemia since admission d/t stress and reduced insulin doses compared to her outpatient regimen. * She uses basal + bolus insulin as an outpatient. She is currently missing her prandial coverage (was not initially added due to poor po intake) and is on a reduced basal dose. * She received 26 units of insulin yesterday * Fasting and postprandial BSGs are elevated * Will plan to increase her basal if BSGs remain elevated and add a carb ratio to provide prandial coverage now that she has increased po intake PLAN FOR INPATIENT GLYCEMIC CONTROL: * Basal insulin with LANTUS per scale SQ BID - adjust higher dose downward * 10 units for BSG less than 160 * 13 units for BSG 160 or above * Correctional Insulin with NOVOLOG per scale ACHS or Q6hrs while NPO - no change * Goal Range: Low 120 mg/dL - High 160 mg/dL * Correction Factor: 25 mg/dL/unit * Nutritional / Prandial insulin per carb ratio of 1 unit per 10 grams CHO consumed PLAN FOR DISCHARGE: * A1c indicates excellent outpatient control * Okay to resume outpatient regimen on discharge as long as patient not experiencing hypoglycemia
[2018-01-16] MEDS: HYDROCODONE/ACETAMIN 5/325MG TAB PO PRN (13:56)
--- NOTE | 2018-01-16 16:37 | Progress Note ---
Medicine Progress Note Date & Time of Visit: January 16, 2018 at 16:32. Subjective seen resting in bed, comfortable diarrhea has resolved tolerating diet well remains in SR no chest pain, dyspnea no note of melena/hematochezia Objective Last 8 Hrs Date Time Temp Pulse Resp B/P (MAP) Pulse Ox O2 Delivery O2 Flow Rate FiO2 01/16/18 15:22 36.7 63 20 142/51 (81) 96 Room Air 01/16/18 12:00 Room Air 01/16/18 11:20 36.7 60 20 159/56 (90) 95 Room Air Physical Exam: General- alert, oriented x 3, not in distress, speaks in sentences with no effort Eyes- anicteric Neck-no JVD Lungs- clear breath sounds bilaterally, no rales/wheezes Heart- regular rhythm; no murmur, normal rate Abdomen- normal bowel sounds, soft, nontender Extremities- grade 1 lower leg edema, (+) venous stasis? , no calf tenderness Neuro- alert, oriented x 3;no gross focal neuro deficits Skin- warm & dry Laboratory Results: Last 24 Hours Test 01/15/18 20:41 01/16/18 04:04 01/16/18 07:22 01/16/18 11:12 Bedside Glucose 188 mg/dl 154 mg/dl 165 mg/dl White Blood Count 8.61 K/uL Red Blood Count 3.01 M/uL Hemoglobin 8.8 g/dL Hematocrit 26.4 % Mean Corpuscular Volume 87.7 fL Mean Corpuscular Hemoglobin 29.2 pg Mean Corpuscular Hemoglobin Concent 33.3 g/dl Platelet Count 222 K/uL Mean Platelet Volume 9.9 fL Neutrophils (%) (Auto) 47.0 % Lymphocytes (%) (Auto) 38.9 % Monocytes (%) (Auto) 8.9 % Eosinophils (%) (Auto) 4.4 % Basophils (%) (Auto) 0.5 % Neutrophils # (Auto) 4.04 K/uL Lymphocytes # (Auto) 3.35 K/uL Monocytes # (Auto) 0.77 K/uL Eosinophils # (Auto) 0.38 K/uL Basophils # (Auto) 0.04 K/uL RDW Standard Deviation 50.6 fL RDW Coefficient of Variation 16.0 % Immature Granulocyte % (Auto) 0.3 % Immature Granulocyte # (Auto) 0.03 K/uL Red Blood Cell Morphology Unremarkable Activated Partial Thromboplast Time 19.7 SECONDS Partial Thromboplastin Ratio 0.8 Sodium Level 141 mmol/L Potassium Level 3.7 mmol/L Chloride Level 110 mmol/L Carbon Dioxide Level 25 mmol/L Anion Gap 6.0 mmol/L Blood Urea Nitrogen 19 mg/dl Creatinine 1.37 mg/dl Est Creatinine Clear Calc Drug Dose 44.4 ml/min Estimated GFR () 44.5 Estimated GFR (Non- 38.4 BUN/Creatinine Ratio 14.0 Random Glucose 145 mg/dl Calcium Level 7.8 mg/dl Magnesium Level 1.9 mg/dl Test 01/16/18 16:04 Bedside Glucose 170 mg/dl Date/Time Source Procedure Growth Status 01/16/18 09:00 Stool C.difficile Toxin B Gene (PCR) - Final No C. difficile toxin B gene detected Complete Assessment & Plan Paroxysmal atrial fibrillation, atrial flutter New-onset Patient currently in NSR multifactorial : Uncontrolled hypertension secondary to illness, missed meds. Borderline electrolyte abnormalities from acute diarrheal illness, rule out C. diff (recent antibiotic Rx, recent confinement) -- evaluated by Cardiology Echo: * Normal LV chamber size with moderate concentric LVH. * Normal LV systolic function without regional wall motion abnormality, EF 60-65 %. * Grade II diastolic dysfunction. * There is severe mitral annular calcification. Calcified mitral apparatus causing mitral stenosis. There is mild mitral regurgitation. There is mild mitral stenosis. * Aortic valve sclerosis mild, without significant aortic valvular stenosis. * Compared to prior study, there is no significant change. -- continues to be in SR already on Carvedilol Heparin discontinued -- continue Telemetry monitoring DIARRHEA likely Viral Gastroenteritis -- C diff Negative -- continues to improve -- monitor hold Lasix -- advance diet HTN -- additional ISMN ordered -- continue other usual meds PRN Clonidine -- improving Chronic diastolic heart failure EF 55% Patient on the dry side, crea elevated at 1.3 -- hold Lasix Anemia -- normocytic, normochromic -- no signs of active GI bleed -- r/o GI Bleed, possible component of Anemia of Chronic Disease and CKD -- check FOBT, anemia panel Protonix BID -- hold ASA, Heparin for now DM2, insulin-requiring. well-controlled as of recent inpatient HgA1c. DVT prophylaxis Heparin SC held for anemia, r/o GI bleed FULL CODE. Dispo lives at home Current Inpatient Medications: Current Inpatient Medications Medications (Trade) Dose Ordered Sig/Hansel Route Start Time Stop Time Status Last Admin Dose Admin Carvedilol (Coreg Tab) 12.5 mg BID PO 01/14/18 09:00 02/13/18 08:59 01/16/18 08:06 12.5 MG Acetaminophen (Tylenol Tab) 650 mg Q4H PRN PO 01/14/18 01:45 02/13/18 01:44 Nitroglycerin (Nitrostat Tab) 0.4 mg UD PRN SL 01/14/18 01:45 02/13/18 01:44 Glucose (Glucose 40% Gel) 15-30 GRAMS 15 GRAMS... UD PRN PO 01/14/18 01:45 02/13/18 01:44 Glucose (Glucose Chew Tab) 4-8 Tablets 4 Tabl... UD PRN PO 01/14/18 01:45 02/13/18 01:44 Glucagon (Glucagon Inj) 1 mg UD PRN SQ 01/14/18 01:45 02/13/18 01:44 Carbohydrates (Carbohydrates For Hypoglycemia) 15-30 GRAMS 15 grams if BSG 54-69... UD PRN PO 01/14/18 01:45 02/13/18 01:44 Hydromorphone HCl (Dilaudid Inj) 0.5 mg Q3H PRN IV 01/14/18 01:45 01/28/18 01:44 Prochlorperazine Edisylate 5 mg/ Syringe 5 ml @ 5 mls/min Q6H PRN IV 01/14/18 01:45 02/13/18 01:44 01/14/18 13:55 5 MLS/MIN Amlodipine Besylate (Norvasc Tab) 10 mg QAM PO 01/14/18 09:00 02/13/18 08:59 01/16/18 08:08 10 MG Ciprofloxacin/ Dexamethasone (Ciprodex Otic Susp) 4 drops BID OT 01/14/18 09:00 02/13/18 08:59 01/15/18 08:00 4 DROPS Clonazepam (Klonopin Tab) 1 mg HS PO 01/14/18 21:00 02/13/18 20:59 01/15/18 20:51 1 MG Fenofibrate (Tricor Tab) 145 mg QPM PO 01/14/18 21:00 02/13/18 20:59 01/15/18 20:50 145 MG Fluticasone Propionate (Flonase Nasal [place]) 1 sprays DAILY ANSELMO 01/14/18 09:00 02/13/18 08:59 01/16/18 08:05 1 SPRAYS Gabapentin (Neurontin Cap) 300 mg DAILY@1400 PO 01/14/18 14:00 02/13/18 13:59 01/16/18 13:48 300 MG Gabapentin (Neurontin Cap) 600 mg BID PO 01/14/18 09:00 02/13/18 08:59 01/16/18 08:07 600 MG Hydralazine HCl (Apresoline Tab) 100 mg TID PO 01/14/18 09:00 02/13/18 08:59 01/16/18 13:48 100 MG Acetaminophen/ Hydrocodone Bitart ([place] 5/325 Tab) 1 tab QID PRN PO 01/14/18 01:45 01/28/18 01:44 01/16/18 13:56 1 TAB Lactobacillus Acidophilus (Floranex Tab) 1 tab TIDM PO 01/14/18 07:30 02/13/18 07:59 01/16/18 11:52 1 TAB Ranitidine HCl (zANTac TAB) 150 mg BID PO 01/14/18 09:00 02/13/18 08:59 01/16/18 09:28 150 MG Sertraline HCl (Zoloft Tab) 50 mg QAM PO 01/14/18 09:00 02/13/18 08:59 01/16/18 08:08 50 MG Terazosin HCl (Hytrin Cap) 1 mg HS PO 01/14/18 21:00 02/13/18 20:59 01/15/18 20:49 1 MG Artificial Tears (Artificial Tears) 1 drops QID PRN OP 01/14/18 01:45 02/13/18 01:44 Topiramate (Topamax Tab) 25 mg BID PO 01/14/18 09:00 02/13/18 08:59 01/16/18 08:08 25 MG Insulin Aspart (novoLOG ASPART) SLIDING SCALE If C... ACHS SC 01/14/18 07:00 02/13/18 06:59 01/16/18 11:52 4 UNITS Dextrose (Dextrose 50% 50ML Syringe) 25-50ML 25ML FOR ... UD PRN IV 01/14/18 01:45 02/13/18 01:44 Clonidine HCl (Catapres Tab) 0.1 mg Q6H PRN PO 01/14/18 08:30 02/13/18 08:29 01/15/18 10:51 0.1 MG Insulin Glargine (Lantus Solostar Pen) See Protocol Text BID SQ 01/14/18 21:00 02/13/18 20:59 01/16/18 08:03 10 UNITS Isosorbide Mononitrate (Imdur Ext Rel Tab) 120 mg QAM PO 01/16/18 09:00 02/15/18 08:59 01/16/18 08:07 120 MG Miscellaneous Information (Consult Glycemic Management Pharmacy) 1 ea UD PRN N/A 01/15/18 12:51 02/14/18 12:50 Pantoprazole Sodium 40 mg/ Syringe 10 ml @ 5 mls/min DAILY@ IV 01/16/18 21:00 02/15/18 20:59
[2018-01-16] MEDS: FENOFIBRATE 145 MG TAB PO SCH (21:20)
[2018-01-16] MEDS: CLONAZEPAM 1 MG TAB PO SCH (21:23)
[2018-01-16] MEDS: PANTOprazole INJ 40 MG in SYRINGE 0 ML IV SCH (21:35)
[2018-01-17] VITALS (8 sets, daily range): BP systolic 132–179; BP diastolic 46–65; PULSE 63–70; TEMP 36.7–37.1; O2SAT 92–95
[2018-01-17 04:56] LABS: BASO % 0.2 %; BASO ABS # 0.02 K/uL (0-0.2); EOS % 5.2 %; EOS ABS # 0.42 K/uL (0-0.5); HEMATOCRIT 27.4 % (37-47); HEMOGLOBIN 9.1 g/dL (12.0-16.0); IG# 0.04 K/uL (0.00-0.02); LYMPH % 36.5 %; LYMPH ABS # 2.94 K/uL (1.2-3.4); MEAN CELL VOLUME 88.4 fL (80-100); MEAN CORPUSCULAR HEMOGLOBIN 29.4 pg (25-34); MEAN CORPUSCULAR HGB CONC 33.2 g/dl (32-36); MEAN PLATELET VOLUME 10.2 fL (7.4-10.4); MONO % 9.9 %; NEUT % 47.7 %; NEUT ABS # 3.84 K/uL (1.4-6.5); PLATELET COUNT 156 K/uL (130-400); RED CELL DISTRIBUTION WIDTH SD 51.2 fL (36.4-46.3); WHITE BLOOD COUNT 8.06 K/uL (4.8-10.8)
[2018-01-17 05:28] LABS: CREATININE 1.29 mg/dl (0.60-1.20); POTASSIUM 3.7 mmol/L (3.5-5.1)
[2018-01-17 06:08] LABS: PTT PATIENT 20.7 SECONDS (21.0-31.0)
[2018-01-17] MEDS: TOPIRAMATE 25 MG TAB PO SCH ×2 (08:33→20:43)
[2018-01-17] MEDS: CARVEDILOL 12.5 MG TAB PO SCH ×2 (08:33→20:43)
[2018-01-17] MEDS: FLUTICASONE PROPIONATE NA SPR 16 GM BTL NAE SCH (08:33)
[2018-01-17] MEDS: PANTOprazole INJ 40 MG in SYRINGE 0 ML IV SCH (08:33)
[2018-01-17] MEDS: CIPRO 0.3%/DEXAMETHASONE 0.1% OTIC SUSP 7.5ML OT SCH ×2 (08:33→20:42)
[2018-01-17] MEDS: AMLODIPINE BESYLATE 5 MG TAB PO SCH (08:34)
[2018-01-17] MEDS: RANITIDINE HCL 150 MG TAB PO SCH ×2 (08:35→20:43)
[2018-01-17] MEDS: ISOSORBIDE MONONITRATE 60 MG TABCR PO SCH (08:35)
[2018-01-17] MEDS: GABAPENTIN 300 MG CAP PO SCH ×3 (08:35→20:42)
[2018-01-17] MEDS: SERTRALINE HCL 50 MG TAB PO SCH (08:35)
[2018-01-17] MEDS: LACTOBACILLUS ACIDOPHILUS (FLORANEX) TAB PO SCH ×3 (08:35→16:36)
[2018-01-17] MEDS: INSULIN ASPART 100 UNITS/ML 3 ML PEN SC SCH ×4 (08:43→22:08)
[2018-01-17] MEDS: INSULIN GLARGINE SOLOSTAR 100 UNITS/ML 3 ML PEN SQ SCH ×2 (08:44→20:50)
--- NOTE | 2018-01-17 10:33 | Pharmacy Progress Note ---
Pharmacy Glycemic Short Note 2 Date of Service January 17, 2018. OUTPATIENT ANTIDIABETIC REGIMEN: * Lantus 20 units BID * Humalog 10 units with each meal (hold if BSG < 160) * A1c = 6.8 % 01/02/18 Item Value Date Time Bedside Glucose 154 mg/dl H 01/16/18 0722 Bedside Glucose 165 mg/dl H 01/16/18 1112 Bedside Glucose 170 mg/dl H 01/16/18 1604 Bedside Glucose 168 mg/dl H 01/16/18 2054 Bedside Glucose 162 mg/dl H 01/17/18 0712 ASSESSMENT: 01/17/18 * Pt received 36 units of insulin yesterday with near adequate control * 20 units of basal insulin with Lantus * 16 units of prandial/correctional insulin with NovoLog * AM fasting BSG trending upwards 154 --162 mg/dl --> indicating more basal insulin may be necessary. Pt uses 20 units SQ BID of Lantus as an outpatient but is only requiring 10-13 units SQ BID in house * Post-prandial BSGs are slightly elevated bet steady. Pt may benefit from additional CHO coverage. Pt only receiving 4-5 units with meals in house but uses 10 units with meals as an outpatient. 01/16/18 * Ms. White received 28 units of insulin yesterday * Changes to causes of insulin resistance/sensitivity: * Diet advanced further * SCr up slightly from baseline * Fasting BSG is improved; however, she was supposed to receive 17 units of Lantus per the scale last night and only received 10. BSGs are somewhat elevated today but are improving from yesterday. 17 units may be too much now so will adjust scale to provide only a slightly higher dose if BSGs still elevated. * Postprandial BSGs improved after adding a carb ratio. Will continue the same for now. 01/15/18 * 72 y/o female admitted yesterday for A fib, with hyperglycemia since admission d/t stress and reduced insulin doses compared to her outpatient regimen. * She uses basal + bolus insulin as an outpatient. She is currently missing her prandial coverage (was not initially added due to poor po intake) and is on a reduced basal dose. * She received 26 units of insulin yesterday * Fasting and postprandial BSGs are elevated * Will plan to increase her basal if BSGs remain elevated and add a carb ratio to provide prandial coverage now that she has increased po intake PLAN FOR INPATIENT GLYCEMIC CONTROL: * Basal insulin with LANTUS per scale SQ BID - no change * 10 units for BSG less than 160 * 13 units for BSG 160 or above * Bolus insulin * NOVOLOG per scale ACHS or Q6hrs while NPO - tighten parameters * Lower Goal Range: Low 110 mg/dL - High 140 mg/dL * Correction Factor: 25 mg/dL/unit * Nutritional / Prandial insulin per carb ratio of 1 unit per 10 grams CHO consumed - will tighten Carb coverage if needed PLAN FOR DISCHARGE: * A1c indicates excellent outpatient control * Okay to resume outpatient regimen on discharge as long as patient not experiencing hypoglycemia
--- NOTE | 2018-01-17 16:24 | Progress Note ---
Medicine Progress Note Date & Time of Visit: January 17, 2018 at 16:19. Subjective seen resting in bed, comfortable no diarrhea no chest pain, dyspnea, palpitations remains in SR no other symptoms Objective Last 8 Hrs Date Time Temp Pulse Resp B/P (MAP) Pulse Ox O2 Delivery O2 Flow Rate FiO2 01/17/18 16:06 65 22 132/46 (74) 01/17/18 12:00 Room Air 01/17/18 11:10 36.7 64 20 152/60 (90) 95 Room Air Physical Exam: General- alert, oriented x 3, not in distress, speaks in sentences with no effort Eyes- anicteric Neck-no JVD Lungs- clear breath sounds bilaterally, no rales/wheezes Heart- regular rhythm; no murmur, normal rate Abdomen- normal bowel sounds, soft, nontender Extremities- grade 1 lower leg edema, (+) venous stasis changes , no calf tenderness Neuro- alert, oriented x 3;no gross focal neuro deficits Skin- warm & dry Laboratory Results: Last 24 Hours Test 01/16/18 20:54 01/17/18 04:39 01/17/18 05:36 01/17/18 07:12 Bedside Glucose 168 mg/dl 162 mg/dl White Blood Count 8.06 K/uL Red Blood Count 3.10 M/uL Hemoglobin 9.1 g/dL Hematocrit 27.4 % Mean Corpuscular Volume 88.4 fL Mean Corpuscular Hemoglobin 29.4 pg Mean Corpuscular Hemoglobin Concent 33.2 g/dl Platelet Count 156 K/uL Mean Platelet Volume 10.2 fL Neutrophils (%) (Auto) 47.7 % Lymphocytes (%) (Auto) 36.5 % Monocytes (%) (Auto) 9.9 % Eosinophils (%) (Auto) 5.2 % Basophils (%) (Auto) 0.2 % Neutrophils # (Auto) 3.84 K/uL Lymphocytes # (Auto) 2.94 K/uL Monocytes # (Auto) 0.80 K/uL Eosinophils # (Auto) 0.42 K/uL Basophils # (Auto) 0.02 K/uL RDW Standard Deviation 51.2 fL RDW Coefficient of Variation 16.0 % Immature Granulocyte % (Auto) 0.5 % Immature Granulocyte # (Auto) 0.04 K/uL Sodium Level 142 mmol/L Potassium Level 3.7 mmol/L Chloride Level 109 mmol/L Carbon Dioxide Level 25 mmol/L Anion Gap 8.0 mmol/L Blood Urea Nitrogen 19 mg/dl Creatinine 1.29 mg/dl Est Creatinine Clear Calc Drug Dose 47.1 ml/min Estimated GFR () 47.9 Estimated GFR (Non- 41.3 BUN/Creatinine Ratio 14.6 Random Glucose 137 mg/dl Calcium Level 8.0 mg/dl Magnesium Level 2.0 mg/dl Iron Level 66 mcg/dl Total Iron Binding Capacity 308 mcg/dl Transferrin 242 mg/dl Transferrin % Saturation 19 % Ferritin 100.0 ng/ml Vitamin B12 Level 483 pg/mL Folate 9.27 ng/mL Activated Partial Thromboplast Time 20.7 SECONDS Partial Thromboplastin Ratio 0.8 Test 01/17/18 08:02 01/17/18 11:06 Stool Occult Blood NEGATIVE Bedside Glucose 151 mg/dl Assessment & Plan Atrial Fibrillation Ruled Out -- evaluated by Cardiology Echo: * Normal LV chamber size with moderate concentric LVH. * Normal LV systolic function without regional wall motion abnormality, EF 60-65 %. * Grade II diastolic dysfunction. * There is severe mitral annular calcification. Calcified mitral apparatus causing mitral stenosis. There is mild mitral regurgitation. There is mild mitral stenosis. * Aortic valve sclerosis mild, without significant aortic valvular stenosis. * Compared to prior study, there is no significant change. -- continues to be in SR ekg findings are artifactual already on Carvedilol Heparin discontinued DIARRHEA likely Viral Gastroenteritis -- C diff Negative -- resolved HTN -- additional ISMN ordered -- continue other usual meds PRN Clonidine -- improving monitor Chronic diastolic heart failure EF 55% Patient on the dry side, crea elevated at 1.3 - resume Lasix tomorrow Anemia -- normocytic, normochromic -- no signs of active GI bleed - FOBT negative Iron level 66 -- likely AOCD continue to monitor as outpatient DM2, insulin-requiring. well-controlled as of recent inpatient HgA1c. DVT prophylaxis Heparin FULL CODE. Dispo lives at home Current Inpatient Medications: Current Inpatient Medications Medications (Trade) Dose Ordered Sig/Hansel Route Start Time Stop Time Status Last Admin Dose Admin Carvedilol (Coreg Tab) 12.5 mg BID PO 01/14/18 09:00 02/13/18 08:59 01/17/18 08:33 12.5 MG Acetaminophen (Tylenol Tab) 650 mg Q4H PRN PO 01/14/18 01:45 02/13/18 01:44 Nitroglycerin (Nitrostat Tab) 0.4 mg UD PRN SL 01/14/18 01:45 02/13/18 01:44 Glucose (Glucose 40% Gel) 15-30 GRAMS 15 GRAMS... UD PRN PO 01/14/18 01:45 02/13/18 01:44 Glucose (Glucose Chew Tab) 4-8 Tablets 4 Tabl... UD PRN PO 01/14/18 01:45 02/13/18 01:44 Glucagon (Glucagon Inj) 1 mg UD PRN SQ 01/14/18 01:45 02/13/18 01:44 Carbohydrates (Carbohydrates For Hypoglycemia) 15-30 GRAMS 15 grams if BSG 54-69... UD PRN PO 01/14/18 01:45 02/13/18 01:44 Hydromorphone HCl (Dilaudid Inj) 0.5 mg Q3H PRN IV 01/14/18 01:45 01/28/18 01:44 Prochlorperazine Edisylate 5 mg/ Syringe 5 ml @ 5 mls/min Q6H PRN IV 01/14/18 01:45 02/13/18 01:44 01/14/18 13:55 5 MLS/MIN Amlodipine Besylate (Norvasc Tab) 10 mg QAM PO 01/14/18 09:00 02/13/18 08:59 01/17/18 08:34 10 MG Ciprofloxacin/ Dexamethasone (Ciprodex Otic Susp) 4 drops BID OT 01/14/18 09:00 02/13/18 08:59 01/17/18 08:33 4 DROPS Clonazepam (Klonopin Tab) 1 mg HS PO 01/14/18 21:00 02/13/18 20:59 01/16/18 21:23 1 MG Fenofibrate (Tricor Tab) 145 mg QPM PO 01/14/18 21:00 02/13/18 20:59 01/16/18 21:20 145 MG Fluticasone Propionate (Flonase Nasal [place]) 1 sprays DAILY ANSELMO 01/14/18 09:00 02/13/18 08:59 01/17/18 08:33 1 SPRAYS Gabapentin (Neurontin Cap) 300 mg DAILY@1400 PO 01/14/18 14:00 02/13/18 13:59 01/17/18 13:56 300 MG Gabapentin (Neurontin Cap) 600 mg BID PO 01/14/18 09:00 02/13/18 08:59 01/17/18 08:35 600 MG Hydralazine HCl (Apresoline Tab) 100 mg TID PO 01/14/18 09:00 02/13/18 08:59 01/17/18 13:56 100 MG Acetaminophen/ Hydrocodone Bitart ([place] 5/325 Tab) 1 tab QID PRN PO 01/14/18 01:45 01/28/18 01:44 01/16/18 13:56 1 TAB Lactobacillus Acidophilus (Floranex Tab) 1 tab TIDM PO 01/14/18 07:30 02/13/18 07:59 01/17/18 11:47 1 TAB Ranitidine HCl (zANTac TAB) 150 mg BID PO 01/14/18 09:00 02/13/18 08:59 01/17/18 08:35 150 MG Sertraline HCl (Zoloft Tab) 50 mg QAM PO 01/14/18 09:00 02/13/18 08:59 01/17/18 08:35 50 MG Terazosin HCl (Hytrin Cap) 1 mg HS PO 01/14/18 21:00 02/13/18 20:59 01/16/18 21:19 1 MG Artificial Tears (Artificial Tears) 1 drops QID PRN OP 01/14/18 01:45 02/13/18 01:44 Topiramate (Topamax Tab) 25 mg BID PO 01/14/18 09:00 02/13/18 08:59 01/17/18 08:33 25 MG Insulin Aspart (novoLOG ASPART) SLIDING SCALE If C... ACHS SC 01/14/18 07:00 02/13/18 06:59 01/17/18 11:49 4 UNITS Dextrose (Dextrose 50% 50ML Syringe) 25-50ML 25ML FOR ... UD PRN IV 01/14/18 01:45 02/13/18 01:44 Clonidine HCl (Catapres Tab) 0.1 mg Q6H PRN PO 01/14/18 08:30 02/13/18 08:29 01/15/18 10:51 0.1 MG Insulin Glargine (Lantus Solostar Pen) See Protocol Text BID SQ 01/14/18 21:00 02/13/18 20:59 01/17/18 08:44 13 UNITS Isosorbide Mononitrate (Imdur Ext Rel Tab) 120 mg QAM PO 01/16/18 09:00 02/15/18 08:59 01/17/18 08:35 120 MG Miscellaneous Information (Consult Glycemic Management Pharmacy) 1 ea UD PRN N/A 01/15/18 12:51 02/14/18 12:50 Pantoprazole Sodium 40 mg/ Syringe 10 ml @ 5 mls/min DAILY@ IV 01/16/18 21:00 02/15/18 20:59 01/17/18 08:33 5 MLS/MIN
[2018-01-17] MEDS: FENOFIBRATE 145 MG TAB PO SCH (20:42)
[2018-01-17] MEDS: CLONAZEPAM 1 MG TAB PO SCH (22:00)
[2018-01-17] MEDS: HEPARIN SOD 5000 UNIT/0.5 ML CARP SQ SCH (23:38)
[2018-01-18] MEDS: HEPARIN SOD 5000 UNIT/0.5 ML CARP SQ SCH ×2 (05:47→13:06)
[2018-01-18] MEDS ORDERED: FUROSEMIDE 40 MG TAB PO SCH (08:00)
[2018-01-18] MEDS ORDERED: ASPIRIN 81 MG ECTAB PO SCH (08:00)
[2018-01-18] MEDS: CIPRO 0.3%/DEXAMETHASONE 0.1% OTIC SUSP 7.5ML OT SCH (08:00)
[2018-01-18 08:07] VITALS: BP 139/74; PULSE 74; TEMP 36.8; O2SAT 95
[2018-01-18] MEDS: FLUTICASONE PROPIONATE NA SPR 16 GM BTL NAE SCH (08:09)
[2018-01-18] MEDS: LACTOBACILLUS ACIDOPHILUS (FLORANEX) TAB PO SCH ×2 (08:10→12:59)
[2018-01-18] MEDS: CARVEDILOL 12.5 MG TAB PO SCH (08:10)
[2018-01-18] MEDS: ISOSORBIDE MONONITRATE 60 MG TABCR PO SCH (08:10)
[2018-01-18] MEDS: GABAPENTIN 300 MG CAP PO SCH ×2 (08:11→13:00)
[2018-01-18] MEDS: SERTRALINE HCL 50 MG TAB PO SCH (08:11)
[2018-01-18] MEDS: RANITIDINE HCL 150 MG TAB PO SCH (08:11)
[2018-01-18] MEDS: TOPIRAMATE 25 MG TAB PO SCH (08:11)
[2018-01-18] MEDS: AMLODIPINE BESYLATE 5 MG TAB PO SCH (08:11)
[2018-01-18] MEDS: INSULIN ASPART 100 UNITS/ML 3 ML PEN SC SCH ×2 (08:16→13:04)
[2018-01-18] MEDS: INSULIN GLARGINE SOLOSTAR 100 UNITS/ML 3 ML PEN SQ SCH (08:16)
[2018-01-18] MEDS: HYDROCODONE/ACETAMIN 5/325MG TAB PO PRN (11:07)
--- NOTE | 2018-01-18 15:08 | Progress Note ---
Medicine Progress Note Date & Time of Visit: January 18, 2018 at 15:03. Subjective seen resting in bedside chair, comfortable in good spirits states she feel fine overall no diarrhea no chest pain,dyspnea, dizziness no other symptoms states she is ready for discharge today Objective Last 8 Hrs Date Time Temp Pulse Resp B/P (MAP) Pulse Ox O2 Delivery O2 Flow Rate FiO2 01/18/18 08:07 36.8 74 16 139/74 (95) 95 Room Air 01/18/18 08:01 Room Air Physical Exam: General- alert, oriented x 3, not in distress, speaks in sentences with no effort Eyes- anicteric Neck-no JVD Lungs- clear breath sounds bilaterally Heart- regular rhythm; no murmur, normal rate Abdomen- normal bowel sounds, soft, nontender Extremities- grade 1 lower leg edema, (+) venous stasis changes , no calf tenderness Neuro- alert, oriented x 3;no gross focal neuro deficits Skin- warm & dry Laboratory Results: Last 24 Hours Test 01/17/18 16:26 01/17/18 16:53 01/17/18 20:23 01/18/18 07:51 Bedside Glucose 131 mg/dl 210 mg/dl 156 mg/dl Prothrombin Time 11.0 SECONDS Prothromb Time International Ratio 1.0 Assessment & Plan Atrial Fibrillation Ruled Out -- evaluated by Cardiology -- continues to be in SR ekg findings are artifactual already on Carvedilol Heparin discontinued Echo: * Normal LV chamber size with moderate concentric LVH. * Normal LV systolic function without regional wall motion abnormality, EF 60-65 %. * Grade II diastolic dysfunction. * There is severe mitral annular calcification. Calcified mitral apparatus causing mitral stenosis. There is mild mitral regurgitation. There is mild mitral stenosis. * Aortic valve sclerosis mild, without significant aortic valvular stenosis. * Compared to prior study, there is no significant change. DIARRHEA likely Viral Gastroenteritis -- C diff Negative -- resolved HTN -- BP as high as systolic 190s -- increased ISMN -- continued other usual meds PRN Clonidine -- improved monitor Chronic diastolic heart failure EF 55% - resume Lasix Anemia -- normocytic, normochromic -- no signs of active GI bleed - FOBT negative Iron level 66 -- likely AOCD continue to monitor as outpatient DM2, insulin-requiring. well-controlled as of recent inpatient HgA1c. Dispo d/c home ff up with PCP this 01/21 Current Inpatient Medications: Current Inpatient Medications Medications (Trade) Dose Ordered Sig/Hansel Route Start Time Stop Time Status Last Admin Dose Admin Carvedilol (Coreg Tab) 12.5 mg BID PO 01/14/18 09:00 02/13/18 08:59 01/18/18 08:10 12.5 MG Acetaminophen (Tylenol Tab) 650 mg Q4H PRN PO 01/14/18 01:45 02/13/18 01:44 Nitroglycerin (Nitrostat Tab) 0.4 mg UD PRN SL 01/14/18 01:45 02/13/18 01:44 Glucose (Glucose 40% Gel) 15-30 GRAMS 15 GRAMS... UD PRN PO 01/14/18 01:45 02/13/18 01:44 Glucose (Glucose Chew Tab) 4-8 Tablets 4 Tabl... UD PRN PO 01/14/18 01:45 02/13/18 01:44 Glucagon (Glucagon Inj) 1 mg UD PRN SQ 01/14/18 01:45 02/13/18 01:44 Carbohydrates (Carbohydrates For Hypoglycemia) 15-30 GRAMS 15 grams if BSG 54-69... UD PRN PO 01/14/18 01:45 02/13/18 01:44 Hydromorphone HCl (Dilaudid Inj) 0.5 mg Q3H PRN IV 01/14/18 01:45 01/28/18 01:44 Prochlorperazine Edisylate 5 mg/ Syringe 5 ml @ 5 mls/min Q6H PRN IV 01/14/18 01:45 02/13/18 01:44 01/14/18 13:55 5 MLS/MIN Amlodipine Besylate (Norvasc Tab) 10 mg QAM PO 01/14/18 09:00 02/13/18 08:59 01/18/18 08:11 10 MG Ciprofloxacin/ Dexamethasone (Ciprodex Otic Susp) 4 drops BID OT 01/14/18 09:00 02/13/18 08:59 01/17/18 20:42 4 DROPS Clonazepam (Klonopin Tab) 1 mg HS PO 01/14/18 21:00 02/13/18 20:59 01/17/18 22:00 1 MG Fenofibrate (Tricor Tab) 145 mg QPM PO 01/14/18 21:00 02/13/18 20:59 01/17/18 20:42 145 MG Fluticasone Propionate (Flonase Nasal [place]) 1 sprays DAILY ANSELMO 01/14/18 09:00 02/13/18 08:59 01/18/18 08:09 1 SPRAYS Gabapentin (Neurontin Cap) 300 mg DAILY@1400 PO 01/14/18 14:00 02/13/18 13:59 01/18/18 13:00 300 MG Gabapentin (Neurontin Cap) 600 mg BID PO 01/14/18 09:00 02/13/18 08:59 01/18/18 08:11 600 MG Hydralazine HCl (Apresoline Tab) 100 mg TID PO 01/14/18 09:00 02/13/18 08:59 01/18/18 13:00 100 MG Acetaminophen/ Hydrocodone Bitart ([place] 5/325 Tab) 1 tab QID PRN PO 01/14/18 01:45 01/28/18 01:44 01/18/18 11:07 1 TAB Lactobacillus Acidophilus (Floranex Tab) 1 tab TIDM PO 01/14/18 07:30 02/13/18 07:59 01/18/18 12:59 1 TAB Ranitidine HCl (zANTac TAB) 150 mg BID PO 01/14/18 09:00 02/13/18 08:59 01/18/18 08:11 150 MG Sertraline HCl (Zoloft Tab) 50 mg QAM PO 01/14/18 09:00 02/13/18 08:59 01/18/18 08:11 50 MG Terazosin HCl (Hytrin Cap) 1 mg HS PO 01/14/18 21:00 02/13/18 20:59 01/17/18 22:00 1 MG Artificial Tears (Artificial Tears) 1 drops QID PRN OP 01/14/18 01:45 02/13/18 01:44 Topiramate (Topamax Tab) 25 mg BID PO 01/14/18 09:00 02/13/18 08:59 01/18/18 08:11 25 MG Insulin Aspart (novoLOG ASPART) SLIDING SCALE If C... ACHS SC 5/18/18 07:00 02/13/18 06:59 01/18/18 13:04 4 UNITS Dextrose (Dextrose 50% 50ML Syringe) 25-50ML 25ML FOR ... UD PRN IV 01/14/18 01:45 02/13/18 01:44 Clonidine HCl (Catapres Tab) 0.1 mg Q6H PRN PO 01/14/18 08:30 02/13/18 08:29 01/15/18 10:51 0.1 MG Insulin Glargine (Lantus Solostar Pen) See Protocol Text BID SQ 01/14/18 21:00 02/13/18 20:59 01/18/18 08:16 10 UNITS Isosorbide Mononitrate (Imdur Ext Rel Tab) 120 mg QAM PO 01/16/18 09:00 02/15/18 08:59 01/18/18 08:10 120 MG Miscellaneous Information (Consult Glycemic Management Pharmacy) 1 ea UD PRN N/A 01/15/18 12:51 02/14/18 12:50 Furosemide (Lasix Tab) 40 mg BID PO 01/18/18 08:00 02/17/18 08:59 01/18/18 08:11 40 MG Aspirin (Ecotrin Tab) 81 mg QAM PO 01/18/18 08:00 02/17/18 08:59 01/18/18 08:10 81 MG Heparin Sodium (Porcine) (Heparin Sq 5000 Unit/0.5ml) 5,000 unit Q8 SQ 01/17/18 22:00 02/16/18 21:59 01/18/18 13:06 5,000 UNIT
[2018-01-18] MEDS ORDERED: ASPI-320 PO (15:13)
[2018-01-18] MEDS ORDERED: IMDSR60 PO (15:13)
--- NOTE | 2018-01-18 15:18 | Discharge Instructions ---
Discharge Instructions Date of Service January 18, 2018. Admission Reason for Admission: Paroxysmal A-Fib Discharge Discharge Diagnosis / Problem: DIARRHEA, HIGH BLOOD PRESSURE Discharge Goals Goal(s): Diagnostic testing, Therapeutic intervention Activity Recommendations Activity Limitations: as noted below (RESUME ACTIVITY GRADUALLY TOLERATED.) Lifting Limitations: until after follow-up appointment Exercise/Sports Limitations: until after follow-up appointment . Instructions / Follow-Up Instructions / Follow-Up PLEASE REFER TO YOUR NEW MEDICATION LIST AND FOLLOW INSTRUCTIONS CAREFULLY. RETURN TO ER IMMEDIATELY IF WITH WORSENING OF SYMPTOMS. FOLLOW UP WITH PRIMARY CARE PHYSICIAN DR. KENDRA YAN ON Wednesday01/21/18 AT 1 :30PM. Current Hospital Diet Patient's current hospital diet: Diabetes Type 2 Diet, AHA Diet (Heart Healthy) Discharge Diet Recommended Diet: AHA Diet (Heart Healthy), Diabetes Type 2 Diet Pending Studies Studies pending at discharge: no Laboratory Results Hemoglobin A1c Test 01/02/18 06:36 Range/Units Estimated Average Glucose 148 mg/dl Hemoglobin A1c 6.8 H 4.5-5.6 % Medical Emergencies . Who to Call and When: Medical Emergencies: If at any time you feel your situation is an emergency, please call 911 immediately. . Non-Emergent Contact Non-Emergency issues call your: Primary Care Provider Call Non-Emergent contact if: you have a fever, you have any medication questions . . "Provider Documentation" section prepared by Solo Lutz. .
--- NOTE | 2018-01-18 15:22 | Discharge Summary ---
Discharge Summary Date of Service January 18, 2018. Discharge Summary Admission Date: January 14, 2018 at 01:24 Discharge Date: January 18, 2018 Principal Diagnosis: Diarrhea, Hypertension; Atrial Fibrillation Ruled Out Secondary Diagnoses/Problems: Please refer to hospital course below. Procedures: HEAD CT NONCONTRAST CT DOSE: 638.56 mGycm HISTORY: Headache with nausea and vomiting TECHNIQUE: Multiaxial CT images of the head were performed without the use of intravenous contrast. Automated exposure control was utilized for this study. A dose lowering technique was utilized adhering to the principles of ALARA. Comparison: Head CT 08/30/2016. Findings: The paranasal sinuses and mastoid air cells are clear. The calvarium and skull base are intact. The ventricles and sulci are within normal limits. There is no mass, hematoma, midline shift, or acute infarct. Chronic deformity of the left mandibular condyle is again noted. Impression: No acute intracranial abnormality. Electronically signed by: Osmar Bonilla M.D. 01/14/2018 7:[address] SCAN OF THE ABDOMEN AND PELVIS WITHOUT IV CONTRAST CLINICAL HISTORY: Generalized abdominal pain. COMPARISON STUDY: Abdominal CT dated 01/01/2018. TECHNIQUE: CT scan of the abdomen and pelvis is performed from the lung bases to the proximal femora. Images are reviewed in the axial, sagittal, and coronal planes. IV contrast was not administered for this examination as per the referring clinician. Note that the examination was performed in significantly suboptimal fashion without oral and IV contrast. The examination is also degraded by large body habitus, and streak artifact from the body wall abutting the CT gantry. A dose lowering technique was utilized adhering to the principles of ALARA. CT DOSE: 1819.67 mGy.cm FINDINGS: Lung bases: The heart is top normal in size and without pericardial effusion. The mitral annulus is densely calcified. There is a tiny hiatal hernia. The lung bases are clear. Liver: The unenhanced liver is normal in size, contour, and attenuation. There is no intrahepatic biliary ductal dilatation. Gallbladder: Surgically absent noting clips in the gallbladder fossa. Spleen: Normal in size and attenuation. Pancreas: The unenhanced pancreas is atrophic and grossly unremarkable. Adrenal glands: Unremarkable. Kidneys: The unenhanced kidneys are atrophic and without hydronephrosis. There are no renal calculi identified. A subcentimeter complex/hemorrhagic cyst in the left kidney is unchanged from previous. Abdominal vasculature: The abdominal aorta is normal in course and caliber noting advanced atherosclerotic calcification. Bowel: The small bowel and colon are normal in course and caliber. The appendix is normal as visualized. Peritoneum: There is no intraperitoneal free air or abdominal ascites. Lymphadenopathy: None. Pelvic viscera: The bladder is normal as visualized. The uterus is surgically absent. No adnexal lesion is seen. Skeletal structures: The skeletal structures are osteopenic. Moderate to advanced lumbosacral spondylosis is observed. Sclerotic degenerative change is noted in the sacroiliac joints. No lytic or blastic lesions are seen. IMPRESSION: 1. Suboptimal examination without oral and IV contrast. The examination is also degraded by streak artifact 2. There are no acute infectious or inflammatory findings in the abdomen or pelvis. 3. Additional findings as above. Electronically signed by: Scott Tello M.D. 01/13/2018 9:47 PM SINGLE VIEW CHEST CLINICAL HISTORY: Generalized abdominal pain. FINDINGS: An AP, portable, upright chest radiograph is compared to study dated 01/01/2018. The examination is degraded by portable technique, large body habitus, apical lordotic positioning, and patient rotation. The heart is enlarged and there is atherosclerotic calcification of the thoracic aorta. The pulmonary vasculature is noncongested. Chronic interstitial thickening is similar to previous. No airspace consolidation or large pleural effusion is identified. No pneumothorax is seen. The skeletal structures are osteopenic. Arthritic change is seen in the shoulders and thoracic spine. IMPRESSION: Cardiomegaly with no acute cardiopulmonary abnormality. Electronically signed by: Scott Tello M.D. 01/13/2018 10:07 PM Consultations: Cardiology Pending Studies/Follow-Up: Please refer to hospital course below. Medication Reconciliation New Medications: Aspirin (Aspirin EC Low Dose) 81 Mg Ectab 81 MG PO QAM for 30 Days, #30 TAB 2 Refills Isosorbide Mononitrate (Isosorbide Mononitrate ER) 60 Mg Tab 120 MG PO QAM for 30 Days, #60 TAB 2 Refills Continued Medications: Amlodipine (Norvasc) 10 Mg Tab 10 MG PO QAM, TAB Carvedilol (Coreg) 12.5 Mg Tab 12.5 MG PO BID, TAB PT HAS THIS MED, NOT ON GMG LIST. Cholecalciferol (Vitamin D) 1,000 Unit Tab 1000 UNITS PO DAILY Ciprofloxacin/Dexamethasone (Ciprodex 0.3-0.1 %) 112 Drops/7.5 Ml Susp 4 DROPS OT BID for 5 Days, #7.5 ML Clonazepam (Klonopin) 1 Mg Tab 1 MG PO HS, TAB Econazole Nitrate (Econazole Nitrate Crm 1% 30 Gm) 90 Appln/30 Gm Cr 1 APPLN TD BID Estradiol Vaginal (Estrace) 0.1 Mg/Gm Cre 1 DOSE PV 3XWK Fenofibrate (Tricor) 145 Mg Tab 145 MG PO QPM, TAB Fluticasone Propionate (Nasal) (Flonase Allergy Relief) 50 Mcg/Act Spr 1 SPRAY ANSELMO DAILY Furosemide (Lasix) 40 Mg Tab 40 MG PO BID, TAB Gabapentin (Neurontin) 300 Mg Cap 600 MG PO BID, CAP TAKE 2 TABS AM/PM Gabapentin (Neurontin) 300 Mg Cap 300 MG PO DAILY@MIDDAY, CAP Home O2 Therapy (Oxygen) Gas 2 LITERS NA HS NOT ON GMG LIST. Hydralazine Hcl (Apresoline) 100 Mg Tab 100 MG PO TID, TAB PT HAS THIS MED, NOT ON GMG LIST. Hydrocodone/Acetaminophen 5MG/325MG ([place] 5MG/325MG) Tab 2 TABLETS PO BID PRN for Pain, TAB MAX 4 TABS PER 24 HOURS. Insulin Glargine (Lantus) 100 Unit/Ml Inj 20 UNITS SQ BID, VIAL Insulin Lispro (Human) (Humalog Kwikpen) 100 Unit/Ml Inj 10 UNITS SQ AC HOLD IF BSG < 160 PER GMG LIST. Lactobacillus Acidophilus (Lactinex) Tab 1 TAB PO TIDM, TAB Metolazone (Zaroxolyn) 5 Mg Tab 5 MG PO WEEKLY, TAB Mupirocin (Bactroban 2% Oint) 66 Appln/22 Gm Oint 1 APPLN TD TID, TUBE Nitroglycerin (Nitrostat) 0.4 Mg Tab 0.4 MG UT PRN, BTL NEEDED FOR CHEST PAIN : ONE TABLET UNDER THE TONGUE EVERY 5 MINUTES, UP TO 3 DOSES. Nystatin (Nystatin Cream) 90 Appln/30 Gm Cr 0 EXT BID, #15 GM APPLY TO AFFECTED AREA BID Nystatin (Topical) (Nystatin) 100,000 Unit/Gm Pow 1 APPLN TD TID ABD FOLDS Ondansetron Hcl (Zofran) 8 Mg Tab 8 MG PO TID PRN for Nausea, TAB Pantoprazole (Protonix) 40 Mg Tab 40 MG PO QDD, TAB Polyethylene Glycol-Propylene (Systane) 1 Mami Mami 1 DROPS OP QID PRN for DRYNESS, #30 ML 5 Refills PT HAS THIS MED, NOT ON GMG LIST. Ranitidine (Zantac) 150 Mg Tab 150 MG PO BID, TAB PT HAS THIS MED, NOT ON GMG LIST. Rosuvastatin Calcium (Crestor) 40 Mg Tab 40 MG PO QPM, TAB Sennosides-Docusate Sodium (Senokot S) 1 Tab Tab 2 TAB PO DAILY PRN for Constipation, TAB Sertraline (Zoloft) 50 Mg Tab 50 MG PO QAM, TAB Terazosin Hcl (Hytrin) 1 Mg Cap 1 MG PO HS, CAP Topiramate (Topiramate) 25 Mg Cap 25 MG PO BID PT HAS THIS MED, NOT ON GMG LIST. Triamcinolone Acet (Aristocort 0.1%) 90 Appln/30 Gm Cr 1 DOSE EXT DIRECTED PRN for PRN Discontinued Medications: Aspirin (Aspirin Ec) 325 Mg Tab 325 MG PO QAM Cefdinir (Omnicef) 300 Mg Cap 300 MG PO HS, CAP Clonidine Hcl (Catapres) 0.2 Mg Tab 0.2 MG PO BID, TAB PT HAS THIS MED, NOT ON GMG LIST. Isosorbide Mononitrate Ext Rel (Imdur Ext Rel) 60 Mg Ertab 60 MG PO QAM, TAB Admission Information HPI (per Admitting provider): PRIMARY CARE DOCTOR: Dr. Marin. The patient is admitted on 01/14/2018. CHIEF COMPLAINT: Abdominal pain, nausea, vomiting. Recent confinement. HISTORY OF PRESENT ILLNESS: Medical history significant for chronic diastolic heart failure as per records, EF of 55%, hypertension, DM2, insulin-requiring, hyperlipidemia, chronic anemia (baseline hemoglobin of 10). Recent confinement last week for right flank pain and UTI E. coli. Patient discharged to home. Yesterday, the patient noted generalized abdominal pain with nausea, emesis, diarrhea. No chest pain, no shortness of breath. Achy headache symptoms, poor appetite. Patient unable to take BP meds at home. As per EMS account, the patient was noted to be in atrial fibrillation/flutter in the ambulance. At the Emergency Room, the patient is noted to be in normal sinus rhythm. Physical Exam (per Admitting): VITAL SIGNS: Blood pressure was noted to be 195/88, pulse rate noted to be 98, RR 20, temperature 37, sats 98 on room air. GENERAL: Noted to be uncomfortable, obese, in no respiratory distress. SKIN: Pallor, warm. HEENT: Partial alopecia/sparse hair. Pale palpebral conjunctivae. No ptosis. Dry mucosa. NECK: Short, supple. CHEST: Decreased effort, no tenderness. HEART: Regular rate and rhythm, no murmur. ABDOMEN: Some distention, minimal epigastric tenderness. EXTREMITIES: Minimal bilateral LE edema (chronic), No LE tenderness. No other gross deformities. NEUROLOGIC EXAMINATION: Coherent. No gross focality. Hospital Course Atrial Fibrillation Ruled Out -- evaluated by Cardiology -- continues to be in SR ekg findings are artifactual already on Carvedilol Heparin discontinued Echo: * Normal LV chamber size with moderate concentric LVH. * Normal LV systolic function without regional wall motion abnormality, EF 60-65 %. * Grade II diastolic dysfunction. * There is severe mitral annular calcification. Calcified mitral apparatus causing mitral stenosis. There is mild mitral regurgitation. There is mild mitral stenosis. * Aortic valve sclerosis mild, without significant aortic valvular stenosis. * Compared to prior study, there is no significant change. DIARRHEA likely Viral Gastroenteritis -- C diff Negative -- resolved HTN -- BP as high as systolic 190s -- increased ISMN -- continued other usual meds PRN Clonidine -- improved monitor Chronic diastolic heart failure EF 55% - resume Lasix Anemia -- normocytic, normochromic -- no signs of active GI bleed - FOBT negative Iron level 66 -- likely AOCD continue to monitor as outpatient DM2, insulin-requiring. well-controlled as of recent inpatient HgA1c. Dispo d/c home ff up with PCP this 01/21 Total time spent on discharge = 30 minutes This includes examination of the patient, discharge planning, medication reconciliation, and communication with other providers. Discharge Instructions Discharge Instructions Date of Service January 18, 2018. Admission Reason for Admission: Paroxysmal A-Fib Discharge Discharge Diagnosis / Problem: DIARRHEA, HIGH BLOOD PRESSURE Discharge Goals Goal(s): Diagnostic testing, Therapeutic intervention Activity Recommendations Activity Limitations: as noted below (RESUME ACTIVITY GRADUALLY TOLERATED.) Lifting Limitations: until after follow-up appointment Exercise/Sports Limitations: until after follow-up appointment . Instructions / Follow-Up Instructions / Follow-Up PLEASE REFER TO YOUR NEW MEDICATION LIST AND FOLLOW INSTRUCTIONS CAREFULLY. RETURN TO ER IMMEDIATELY IF WITH WORSENING OF SYMPTOMS. FOLLOW UP WITH PRIMARY CARE PHYSICIAN DR. KENDRA YAN ON Wednesday01/21/18 AT 1 :30PM. Current Hospital Diet Patient's current hospital diet: Diabetes Type 2 Diet, AHA Diet (Heart Healthy) Discharge Diet Recommended Diet: AHA Diet (Heart Healthy), Diabetes Type 2 Diet Pending Studies Studies pending at discharge: no Laboratory Results Hemoglobin A1c Test 01/02/18 06:36 Range/Units Estimated Average Glucose 148 mg/dl Hemoglobin A1c 6.8 H 4.5-5.6 % Medical Emergencies . Who to Call and When: Medical Emergencies: If at any time you feel your situation is an emergency, please call 911 immediately. . Non-Emergent Contact Non-Emergency issues call your: Primary Care Provider Call Non-Emergent contact if: you have a fever, you have any medication questions . . "Provider Documentation" section prepared by Solo Lutz. .
[2018-01-18 15:25] VITALS: BP 139/74; PULSE 74; TEMP 36.8; O2SAT 95
[2018-01-23] MEDS ORDERED: ISOS60TA25 PO (23:32)
== END 2018-01-18 15:55 | disposition home health service (06) | DRG 392 ==
LOC: EDBD 20:37 → C.EDB 20:37 → ENRESERV 01-14 01:18 → EDBEDREQ 01-14 01:21 → C.2E 01-14 01:24 → EDBEDREQ 01-14 01:31 → ENRESERV 01-17 18:03 → C.MS4W 01-17 19:16
PROVIDERS: ADMIT Internal Medicine; ATTEND Internal Medicine
DX: A08.4 Viral intestinal infection, unspecified (principal); I13.0 Hypertensive heart and chronic kidney disease with heart failure and stage 1 through stage 4 chronic kidney disease, or unspecified chronic kidney disease; I50.32 Chronic diastolic (congestive) heart failure; Z68.43 Body mass index [BMI] 50.0-59.9, adult; R79.89 Other specified abnormal findings of blood chemistry; E11.22 Type 2 diabetes mellitus with diabetic chronic kidney disease; N18.3 Chronic kidney disease, stage 3 (moderate); D63.1 Anemia in chronic kidney disease; E78.5 Hyperlipidemia, unspecified; I25.10 Atherosclerotic heart disease of native coronary artery without angina pectoris; I89.0 Lymphedema, not elsewhere classified; I25.2 Old myocardial infarction; E66.01 Morbid (severe) obesity due to excess calories; Z99.81 Dependence on supplemental oxygen; Z79.82 Long term (current) use of aspirin; Z79.4 Long term (current) use of insulin; Z79.899 Other long term (current) drug therapy; Z88.2 Allergy status to sulfonamides; Z88.8 Allergy status to other drugs, medicaments and biological substances

== ENCOUNTER 2019-02-14 09:44 | Inpatient (IN) ==
--- OUTSIDE RECORDS SUMMARY | 2019-02-14 09:47 | External Medical Summary | Continuity of Care Document ---
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) Ear pain, referred, bilateral (388.72) (H92.03) Jaw pain (784.92) (R68.84) Perforation of right tympanic membrane (384.20) (H72.91) Hearing difficulty (389.9) (H91.90) Acute otitis externa (380.10) (H60.509) Facial pain (784.0) (R51) Impacted cerumen of both ears (380.4) (H61.23) Nausea in adult (787.02) (R11.0) Insulin dependent diabetes mellitus (250.00) (E11.9) Kidney disease (593.9) (N28.9) Hyperlipidemia (272.4) (E78.5) Hypertriglyceridemia (272.1) (E78.1) Benign essential hypertension (401.1) (I10) Diabetic retinopathy (250.50) (E11.319) Coronary artery disease (414.00) (I25.10) Neck pain (723.1) (M54.2) Allergic rhinitis (477.9) (J30.9) Otitis externa of right ear (380.10) (H60.91) Nasal congestion (478.19) (R09.81) Impacted cerumen of right ear (380.4) (H61.21) 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) Sensorineural hearing loss of left ear (389.15) (H90.5) Excessive cerumen in ear canal, bilateral (380.4) (H61.23) Exostosis of right external ear canal (380.81) (H61.811) Allergies and Adverse Reactions Biguanides (Allergy) HMG-CoA-R Inhibitors (Allergy) Reaction: Nausea Loratadine TABS (Allergy) metFORMIN HCl TABS (Allergy) Reaction: O ther Pseudoephedrine TABS (Allergy) Sulfa Drugs (Allergy) Reaction: Nausea Medications Ondansetron 4 MG Oral Tablet Disintegrat ing; TAKE 1 TABLET Every 8 hours PRN Nausea VALENTINA Fong Start: 21-Dec-2014 Quantity: 30 Refills: 0 HYDROcodone-Acetaminophen 5-325 MG Oral Tablet; TAKE 1 TO 2 TABLETS EVERY 4 TO 6 HOURS NEEDED FOR PAIN. VALENTINA Fong Start: 20-Dec-2014 Quantity: 36 Refills: 0 Ciprodex 0.3-0.1 % Otic Suspension; PLACE 4 DROPS IN A FFECTED EAR 3X A WEEK VALENTINA Fong Start: 17-Dec-2014 Quantity: 1 Refills: 5 Triamcinolone Acetonide 0.1 % External Cream Refills: 0 Crestor 40 MG Oral Tablet Refills: 0 Ondansetron 8 MG Oral Tablet Disintegrating Refills: 0 Floxin Otic 0.3 % Otic Solution Refills: 0 Nitroglycerin 0.4 MG Sublingual Tablet Sublingual Refills: 0 Lutein Vision Blend CAPS Refills: 0 Metoprolol Tartrate 50 MG Oral Tablet Refills: 0 Lidocaine PTCH Refills: 0 Lantus SOLN Refills: 0 Hydrocortisone Valerate 0.2 % External Ointment Refills: 0 Gabapentin 600 MG Oral Tablet Refills: 0 Gabapentin 300 MG TABS Refills: 0 Fluticasone Propionate 50 MCG/ACT Nasal Suspension Refills: 0 Flaxseed Oil CAPS Refills: 0 Fenofibrate 145 MG Oral Tablet Refills: 0 Esomeprazole Magnesium 40 MG Oral Capsule Delayed Release Refills: 0 clonazePAM 1 MG Oral Tablet Refills: 0 Cholecalciferol Powder Refills: 0 Calcium Acetate 667 MG CAPS Refills: 0 Aspirin 325 MG Oral Tablet Refills: 0 amLODIPine Besylate 10 MG Oral Tablet Refills: 0 Mupirocin 2 % External Ointment; APPLY TO NOSE TWICE DAILY. VALENTINA Fong Start: 31-May-2018 Quantity: 1 22 GM Tube Refills: 3 Procedures History of Section Status: Comp leted History of Gallbladder Surgery Status: C ompleted History of Hysterectomy Status: Complete d Immunizations Immunizations not documented Family History Father Family history of diabetes mellitus (V18.0) (Z83.3) Status: Active Mother Family history of congestive heart failure (V17.49) (Z82.49) Status: Active Social History - Smoking Status Never smoker Plan of Treatment Planned Encounters Appointment; Keily Fong PA-C Start: 23-Mar-2019 13:00 Re quest Planned Observations Planned Goals not documented Results No Known Results Results not documented Encounters Appointment; Keily Fong PA-C 22-Dec-2018 13:00 Encounter Diagnosis: Problem not documented Appointment; Keily Fong PA-C 25-Oct-2018 13:00 Encounter Diagnosis: Problem not documented Appointment; Keily Fong PA-C 12-Sep-2018 13:20 Encounter Diagnosis: Problem not documented Appointment; Keily Fong PA-C 02-Aug-2018 14:20 Encounter Diagnosis: Problem not documented Appointment; Keily Fong PA-C 26-Jul-2018 13:40 Encounter Diagnosis: Problem not documented Appointment; Keily Fong PA-C 31-May-2018 13:20 Encounter Diagnosis: Problem not documented Appointment; Keily Fong PA-C 10-Feb-2018 13:20 Encounter Diagnosis: Problem not documented Appointment; Keily Fong PA-C 09-Nov-2017 13:00 Encounter Diagnosis: Problem not documented Appointment; Keily Fong PA-C 12-Aug-2017 11:00 Encounter Diagnosis: Problem not documented Appointment; Keily Fong PA-C 05-May-2017 11:20 Encounter Diagnosis: Problem not documented Appointment; Keily Fong PA-C 23-Mar-2019 13:00 Encounter Diagnosis: Problem not documented
[2019-02-14 10:28] LABS: Basophils # (auto) 0.02 K/uL (0-0.2); Basophils % (auto) 0.2 %; Eosinophils % (auto) 1.7 %; Hematocrit (blood only) 30.1 % (37-47); Hemoglobin 9.8 g/dL (12.0-16.0); Immature Granulocytes # (auto) 0.04 K/uL (0.00-0.02); Immature Granulocytes % (auto) 0.3 %; Lymphocytes # (auto) 1.88 K/uL (1.2-3.4); Lymphocytes % (auto) 15.6 %; Mean Corpuscular Hgb Conc 32.6 g/dL (32-36); Mean Corpuscular Volume 85.8 fL (80-100); Mean Platelet Volume 9.7 fL (7.4-10.4); Monocytes # (auto) 0.76 K/uL (0.11-0.59); Monocytes % (auto) 6.3 %; Neutrophils # (auto) 9.13 K/uL (1.4-6.5); Neutrophils % (auto) 75.9 %; Platelet Count 196 K/uL (130-400); RDW Coefficient of Variation 14.7 % (11.5-14.5); RDW Standard Deviation 46.7 fL (36.4-46.3); Red Blood Count 3.51 M/uL (4.2-5.4); White Blood Count 12.03 K/uL (4.8-10.8)
--- NOTE | 2019-02-14 10:32 | XRay Report ---
XR pelvis 1-2V routine CLINICAL HISTORY: Pelvic pain status post trauma COMPARISON: None. DISCUSSION: The study is somewhat limited from a technical standpoint. Degenerative changes are prese nt within the lower lumbar spine. No fractures are visualized. There is no SI joint diastases. There is no symphysis diastases. IMPRESSION: 1. No fractures identified on conventional radiographic imaging Electronically signed by: Khoa Ladd M.D. 02/14/2019 10:31 AM
--- NOTE | 2019-02-14 10:34 | XRay Report ---
XR shoulder RT min 2V routine CLINICAL HISTORY: 73 years-old Female presenting with fall. TECHNIQUE: Internal rotation, external rotation, Grashey views of the right shoulder were obtained. COMPARISON: 09/13/2014. FINDINGS: Widening of the right acromioclavicular joint greater than on prior exam. Lateral humeral joint congr uent though significant joint space loss is evident. Osteophytosis is noted at both the acromioclavic ular and glenohumeral joints though greater at the glenohumeral joint. Prominent enthesophyte at the inferior humeral head. Mild remodeling of the bony glenoid suggested. Possible underlying osteopenia. Allowing for this, no acute fracture or subluxation. IMPRESSION: 1. Abnormal widening of the AC joint concerning for grade 1-2 injury. 2. Advanced degenerative changes primarily of the glenohumeral joint with joint space loss and promi nent osteophytosis. 3. Allowing for osteopenia, no acute osseous injury. Electronically signed by: Niraj Iniguez M.D. 02/14/2019 10:32 AM
--- NOTE | 2019-02-14 10:34 | XRay Report ---
XR chest 1V portable CLINICAL HISTORY: Chest pain status post trauma COMPARISON STUDY: January 23, 2018 FINDINGS: The heart is mildly enlarged. There is calcification within the mitral valve annulus. There are aortic calcifications. There is no focal pulmonary consolidation. There are no pleural effusions . No pneumothorax is visualized.[ There is mild vascular prominence without evidence of overt failure . IMPRESSION: No active disease in the chest. Electronically signed by: Khoa Ladd M.D. 02/14/2019 10:32 AM
[2019-02-14 10:38] LABS: Partial Thromboplastin Ratio 0.9; Partial Thromboplastin Time 24.8 Seconds (21.0-31.0); Prothrombin Time 10.5 Seconds (9.0-12.0)
[2019-02-14 10:58] LABS: BUN Creatinine Ratio 17.5 (10-20); Calcium 8.6 mg/dl (8.5-10.1); Creatinine Clr Calc Pharmacy 23.9 ml/min; Est GFR (African American) 32.2; Est GFR (Non-African American) 27.8
--- NOTE | 2019-02-14 11:05 | CT Scan Report ---
CT head/brain wo con CLINICAL HISTORY: 73 years-old Female presenting with fall, neck pain. TECHNIQUE: Multidetector CT imaging of the head was performed without the use of intravenous contrast . IV contrast: None. One or more dose lowering techniques were used consistent with the principles of ALARA (as low as reasonably achievable), including automatic exposure control, mA or kV adjustment t o individual patient size, and/or use of iterative reconstruction. COMPARISON: 01/14/2018. CT DOSE (mGy.cm): The estimated cumulative dose is 638.56 mGycm. FINDINGS: [employer] Consultant topogram: The patient is edentulous. Ventricles and sulci normal in size. No hemorrhage. Brain parenchyma normal in appearance with preser amy martines-white differentiation. No acute territorial infarct. No mass effect or midline shift. No ext ra-axial fluid collection. Paranasal sinuses and mastoid air cells clear. Calvarium intact. Absent na tive lenses. Cerumen may be present in the right external auditory canal. Possible exostosis in the e xternal auditory canal the right. IMPRESSION: 1. No acute intracranial abnormality. Electronically signed by: Niraj Iniguez M.D. 02/14/2019 11:04 AM
--- NOTE | 2019-02-14 11:10 | CT Scan Report ---
CT OF THE CERVICAL SPINE WITHOUT CONTRAST CLINICAL HISTORY: neck pain/fall COMPARISON STUDY: No previous studies for comparison. TECHNIQUE: Helical axial images of the cervical spine were obtained without IV contrast. Sagittal a nd coronal reconstructions were viewed. Automated exposure control was utilized for the study. A do se lowering technique was utilized adhering to the principles of ALARA. FINDINGS: Note is made of an acute fracture of the left lateral mass of C1 which is distracted 3 mm. There is also an acute nondisplaced fracture of the left lamina of C1. There is also made of a mildly displaced avulsion fracture of the anterior inferior aspect of the C4 vertebral body. No additional acute cervical spine fractures are identified. The craniocervical junction is intact. Multinodular th yroid gland is incidentally noted. There is moderate multilevel degenerative disc disease and facet a rthrosis within the cervical spine. Facet joints are intact. IMPRESSION: 1. Acute mildly distracted (3mm) fracture of the left lateral mass of C1. Acute nondisplaced fracture of the left lamina of C1. 2. Acute mildly displaced avulsion fracture of the anterior inferior aspect of the C4 vertebral body. Electronically signed by: Stef Dennis M.D. 02/14/2019 11:08 AM
--- NOTE | 2019-02-14 11:12 | CT Scan Report ---
CT abd pelvis wo con CLINICAL HISTORY: 73 years-old Female presenting with fall, neck pain. TECHNIQUE: Multidetector CT of the abdomen and pelvis was performed without the use of intravenous co ntrast. IV contrast: None. One or more dose lowering techniques were used consistent with the princip les of ALARA (as low as reasonably achievable), including automatic exposure control, mA or kV adjust ment to individual patient size, and/or use of iterative reconstruction. COMPARISON: 01/13/2018. CT DOSE (mGy.cm): The estimated cumulative dose is 932.38 mGycm. FINDINGS: Medical Physiologist topogram: Cholecystectomy clips. Lung bases: Multichamber enlargement of the heart. Coronary artery, aortic valve, and mitral annular calcification. No pericardial or pleural effusion. Pulmonary vascular prominence. Mosaic attenuation may suggest small airways disease. Mild interlobular septal thickening. Liver: Normal morphology. Normal density. Biliary: Mild biliary ductal prominence likely a reservoir effect in the post cholecystectomy state. Gallbladder surgically absent. Pancreas: Moderate parenchymal atrophy. Spleen: Normal noncontrast appearance. Adrenal glands: Normal noncontrast appearance. Kidneys and ureters: Normal noncontrast appearance. No nephrolithiasis. No hydronephrosis. Normal ure ters. Bladder: Normal noncontrast appearance. Pelvic organs: Uterus surgically absent. Bowel: Mild stool burden throughout normal caliber colon. The appendix may be present and grossly nor mal. No inflammatory change in the region of the cecum. No bowel obstruction. Peritoneal cavity: No free fluid or intraperitoneal gas. Lymph nodes: No gross lymphadenopathy allowing for noncontrast technique. Vasculature: Atherosclerosis of the normal caliber abdominal aorta. Abdominal wall: Normal. Musculoskeletal: Degenerative changes of the spine. IMPRESSION: 1. Allowing for noncontrast technique, no acute intra-abdominal pathology. 2. Mild congestive changes may be present at the lung bases. 3. Possible small airways disease at the lung bases. Electronically signed by: Niraj Iniguez M.D. 02/14/2019 11:10 AM
[2019-02-14] MEDS ORDERED: ONDANSETRON INJ 2 MG/ML 2 ML VIAL IV STA (11:20)
[2019-02-14] MEDS ORDERED: MoRPHine SULFATE 4 MG/ML 1 ML CARP\\VIAL IV STA (11:20)
[2019-02-14] MEDS ORDERED: HYDROmorphone INJ 1 MG/ML SYRINGE IV STA (12:13)
[2019-02-14] MEDS ORDERED: SODIUM CHLORIDE 0.9% 1000ML 1,000 ML IV SCH (12:15)
[2019-02-14] MEDS ORDERED: POTASSIUM CHLORIDE 20 MEQ TABCR PO STA (12:45)
--- NOTE | 2019-02-14 14:03 | History & Physical Report ---
Date of Service February 14, 2019 Assessment & Plan (1) Closed Misael fracture: (2) Teardrop fracture of cervical vertebra: This is a 73-year-old female with a PMH of type 2 diabetes, CAD, HTN, nocturnal hypoxia morbid obesity and other medical problems listed below who presents with head and neck pain after a fall at home and was found to have a closed Misael fracture and a teardrop fracture of cervical vertebra. -S/p fall from commode at home after falling asleep. Denies syncopal event. Had taken morning Burt and gabapentin. Possibly medication-induced ? -ED physician discussed with Dr. Kinney, on-call for ortho spine. Reviewed imaging-- does not feel that this is a surgical case. Instructed to continue wearing c-collar for now. Will evaluate tomorrow -Discussed transitioning to a larger c-collar with Dr. Kinney. Placed order with orthotics -Keeping n.p.o. for now until able to be fitted with larger c-collar. Will plan to then transition from n.p.o. to diet, with aspiration precautions -Pain control, PT/OT consult (3) Insulin dependent diabetes mellitus: A1c of 6.9 in Sep 2018. Ordered new a1c -Hold home agents -Basal/bolus insulin while in-patient -BSG AC HS, Q6H while NPO (4) CAD (coronary artery disease): Stable, no chest pain -Continue Imdur, carvedilol, aspirin, statin (5) Hypertension: Normotensive. Continue home amlodipine, carvedilol, hydralazine (6) CKD (chronic kidney disease), stage III: Cr of 1.76 (baseline 1.6-1.8) -Continue monitoring with daily BMP (7) Mood disorder: Continue Zoloft, Clonazepam HS (8) GERD (gastroesophageal reflux disease): (9) HLD (hyperlipidemia): Continue statin DVT Ppx: SQ heparin Code status: FULL PCP: Tomas Dispo: Admitted to med surg. Discharge planning ordered. Patient seen in collaboration with Dr. Ackerman. Please see addendum. History of Present Illness Chief Complaint: Head/neck pain after fall Primary Care Provider: Angela Marin MD This is a 73-year-old female with a PMH of type 2 diabetes, CAD, HTN, nocturnal hypoxia morbid obesity and other medical problems listed below who presents with head and neck pain after a fall at home. Patient got up and had a normal morning where she got dressed and took her medications. States that she felt very tired due to busy day yesterday with doctors appointments. Was using bedside commode when she fell asleep and then fell forward, landing on her head and neck. Denies losing consciousness. Called to her sister, who came and helped patient sit upright and called EMS. Patient endorsing head and neck pain. Denies any lightheadedness, palpitations or chest pain preceding fall. No visual changes, confusion, chest pain, shortness of breath, nausea, vomiting, diarrhea, dysuria, numbness, paresthesias or weakness. Took all morning medications with exception of Lantus and Lasix. Allergies Allergy/AdvReac Type Severity Reaction Status Date / Time metformin Allergy Intermediate causes Verified 02/14/19 11:34 kidney problems Bactrim Allergy Unknown "ITS BEEN Verified 01/23/18 23:34 SO LONG, I FORGET" loratadine Allergy Unknown MOUTH Verified 02/14/19 11:34 SWELLING sulfamethoxazole Allergy Unknown "ITS BEEN Verified 02/14/19 11:34 SO LONG, I FORGET" trimethoprim Allergy Unknown "ITS BEEN Verified 02/14/19 11:34 SO LONG, I FORGET" Sulfa (Sulfonamide AdvReac Unknown NAUSEA Verified 02/14/19 11:34 Antibiotics) HMG-CoA-R Inhibitors AdvReac Mild GI UPSET Uncoded 02/14/19 11:34 Home Medications Home Medications Medication Instructions Recorded Confirmed Type Lactobacillus acidophilus 2 cap PO TIDM 02/14/19 02/14/19 History amlodipine 10 mg PO QAM 02/14/19 02/14/19 History aspirin 81 mg PO QAM 02/14/19 02/14/19 History carvedilol 12.5 mg PO BID 02/14/19 02/14/19 History cholecalciferol (vitamin D3) 1,000 unit PO DAILY 02/14/19 02/14/19 History [Vitamin D3] clonazepam 1 mg PO HS 02/14/19 02/14/19 History clonidine HCl 0.2 mg PO BID 02/14/19 02/14/19 History estradiol 0.01 % VAGINAL UD 02/14/19 02/14/19 History fenofibrate nanocrystallized 145 mg PO HS 02/14/19 02/14/19 History fluticasone propionate 1 spray INTRANASAL QAM 02/14/19 02/14/19 History furosemide 40 mg PO QAM 02/14/19 02/14/19 History gabapentin 300 mg PO QDL 02/14/19 02/14/19 History gabapentin 600 mg PO BID 02/14/19 02/14/19 History hydralazine 100 mg PO TID 02/14/19 02/14/19 History hydrocodone-acetaminophen 2 tab PO BID 02/14/19 02/14/19 History insulin glargine [Lantus Solostar 20 unit SUBCUT BID 02/14/19 02/14/19 History U-100 Insulin] insulin lispro [Humalog KwikPen 10 unit SUBCUT AC 02/14/19 02/14/19 History Insulin] isosorbide mononitrate 120 mg PO QAM 02/14/19 02/14/19 History nitroglycerin [Nitrostat] 0.4 mg SUBLINGUAL UD 02/14/19 02/14/19 History pantoprazole 40 mg PO QDD 02/14/19 02/14/19 History ranitidine HCl 150 mg PO BID 02/14/19 02/14/19 History rosuvastatin 40 mg PO HS 02/14/19 02/14/19 History sennosides-docusate sodium 2 tab PO HS PRN 02/14/19 02/14/19 History [Senokot-S] sertraline 50 mg PO QAM 02/14/19 02/14/19 History terazosin 1 mg PO HS 02/14/19 02/14/19 History topiramate 25 mg PO BID 02/14/19 02/14/19 History Past Med/Surg History Medical History CAD (coronary artery disease) (Chronic) Insulin dependent diabetes mellitus (Chronic) HLD (hyperlipidemia) (Chronic) Morbid obesity (Chronic) IBS (irritable bowel syndrome) (Chronic) GERD (gastroesophageal reflux disease) (Chronic) Adjustment disorder (Chronic) Hypertension (Chronic) CKD (chronic kidney disease), stage III (Chronic) Hyponatremia (Chronic) Paroxysmal A-fib (Chronic) Surgical History H/O: hysterectomy (Chronic) S/P cholecystectomy (Chronic) H/O hernia repair (Chronic) H/O: (Chronic) Family History Other No pertinent family history Social History Preferred Language: [place] Communication Ability: Effective Visual Impairment: No Limitations Miniature Train Driver Required: No Beliefs That Will Affect Care: None Current Living Situation: Family Other Information That Helps Us Care for You: No Feels Safe at Home: Yes Safety Concerns: Feels Safe At This Time Smoking Status: Never smoker Do You Dip or Chew Tobacco: No Second Hand Exposure: No Tobacco Cessation Education Requested by Patient: No Hx Alcohol Use: No Hx Substance Use: No Review of Systems Review of Systems: At least ten systems reviewed and negative except as noted in the HPI. Physical Exam Physical Exam: General Appearance: WD/WN, no apparent distress, morbidly obese wearing C-collar Head: normocephalic, small ecchymosis on R frontal bone Eyes: normal inspection, PERRL, EOMI ENT: hearing grossly normal, pharynx normal Neck: supple, no JVD, no adenopathy Respiratory/Chest: lungs clear to auscultation. No wheezes, rales or rhonci. No respiratory distress or accessory muscle use Cardiovascular: regular rate, rhythm, no murmur, normal peripheral pulses Abdomen/GI: normal bowel sounds, soft, non-tender to palpation Extremities/Musculoskelatal: normal inspection, no calf tenderness, normal capillary refill, no pedal edema Neurologic/Psych: alert, normal mood/affect, oriented x 3, CN grossly intact. Able to move all 4 extremities Skin: normal color, warm/dry Results & Data Vital Signs (Past 12 Hours) Vital Signs Temp Pulse Pulse Resp BP BP Pulse Ox 02/14/19 13:30 59 L 15 02/14/19 13:20 60 18 97 02/14/19 13:10 68 18 98 02/14/19 13:01 66 20 142/60 H 99 02/14/19 13:00 58 L 18 100 02/14/19 12:50 59 L 17 98 02/14/19 12:40 80 14 96 02/14/19 12:30 16 88 L 02/14/19 12:20 63 17 92 06/18/19 12:10 65 18 92 02/14/19 12:01 63 19 132/52 L 91 02/14/19 12:00 62 14 92 02/14/19 11:55 60 13 145/52 H 94 02/14/19 11:50 69 22 90 02/14/19 11:40 72 24 92 02/14/19 11:30 61 15 94 02/14/19 11:20 63 16 02/14/19 11:10 62 22 02/14/19 11:04 63 17 92 02/14/19 10:51 145/52 H 02/14/19 10:33 61 18 145/52 H 91 02/14/19 10:30 60 17 92 02/14/19 10:20 15 93 02/14/19 10:10 57 L 21 92 02/14/19 10:00 57 L 17 94 02/14/19 09:53 36.9 C 56 L 22 145/52 H 94 02/14/19 09:52 72 14 94 02/14/19 09:50 64 20 145/52 H Supervising Physician Co-Signing Physician Notes Pt was seen and examined. Agreed with Supriya MONTGOMERY exam, assessment and plan. 73-year-old female with a PMH of type 2 diabetes, CAD, HTN, nocturnal hypoxia morbid obesity was brought by EMS after sustaining a fall. Pt said that this morning while using the commode, she fell asleep and then fell forward, landing on her head and neck. She said that she did not passed out or loss of consciousness. She said that she was tired because yesterday she had a busy day with doctor appointment. CT cervical spine Acute mildly distracted (3mm) fracture of the left lateral mass of C1 and acute nondisplaced fracture of the left lamina of C1 and acute mildly displaced avulsion fracture of the anterior inferior aspect of the C4 vertebral body. CT head showed no acute intracranial abnormality. Orthopedic consulted no surgical intervention at this time. Ortho recommended to continue wearing c-collar for now. PT/OT evaluate. Fall precaution. Continue monitor closely. MD Meka (1) Teardrop fracture of cervical vertebra Encounter type: initial encounter Qualified Code(s): S12.9XXA - Fracture of neck, unspecified, initial encounter (2) Closed Misael fracture Encounter type: initial encounter Qualified Code(s): S12.01XA - Stable burst fracture of first cervical vertebra, initial encounter for closed fracture
[2019-02-14] MEDS ORDERED: CARBOHYDRATES FOR HYPOGLYCEMIA PO PRN (15:34)
[2019-02-14] MEDS ORDERED: GLUCOSE 10 TABS/TUBE PO PRN (15:34)
[2019-02-14] MEDS ORDERED: GLUCOSE 40% GEL 15 GM TUBE PO PRN (15:34)
[2019-02-14] MEDS ORDERED: HYDROmorphone INJ 0.5 MG/0.5 ML SYR IV PRN (15:34)
[2019-02-14] MEDS ORDERED: DEXTROSE 50% 50 ML SYRINGE IV PRN (15:34)
[2019-02-14] MEDS ORDERED: ONDANSETRON INJ 2 MG/ML 2 ML VIAL IV PRN (15:34)
[2019-02-14] MEDS ORDERED: GLUCAGON FOR INJ 1 MG VIAL SQ PRN (15:34)
[2019-02-14] MEDS: HEPARIN SOD 5,000 UNIT/0.5 ML VIAL SQ SCH ×2 (16:05→21:20)
[2019-02-14] MEDS: POTASSIUM CHLORIDE / WTR 10 MEQ/100 ML PLCT IV SCH ×3 (16:05→18:36)
--- NOTE | 2019-02-14 16:48 | Emergency Department Note ---
Entered by Bernie Hall acting as a scribe for History of Present Illness General Chief complaint: Fall Time Seen by Provider: 02/14/19 09:46 Source: patient Mode of arrival: EMS Limitations: no limitations History of Present Illness Onset (ago): day(s) (this morning) Location: head, neck and right (right shoulder) Pain Consistency: + other (episode) Quality: + sharp Associated symptoms: + other (The patient complains of neck pain, back of head pain, and right shoulder pain. ) The patient is a 73 year old female with a history of hyperlipidemia, GERD, diabetes, hypertension, CKD, hysterectomy, cholecystectomy, and section who presents to the ED via EMS with complaints of an episode of a fall that occurred this morning. Per EMS, the patient was tired this morning after spending 6 hours in a van yesterday going to doctors appointments. The patient states that she fell asleep on a portable toilet this morning and fell forward. Per EMS, the patient struck her head on something, but is unsure of what. The patient complains of neck pain, back of head pain, and right shoulder pain. She describes the shoulder pain as sharp. The patient notes that she takes aspirin. Home Medications Home Medications Medication Instructions Recorded Confirmed Type Lactobacillus acidophilus 2 cap PO TIDM 02/14/19 02/14/19 History amlodipine 10 mg PO QAM 02/14/19 02/14/19 History aspirin 81 mg PO QAM 02/14/19 02/14/19 History carvedilol 12.5 mg PO BID 02/14/19 02/14/19 History cholecalciferol (vitamin D3) 1,000 unit PO DAILY 02/14/19 02/14/19 History [Vitamin D3] clonazepam 1 mg PO HS 02/14/19 02/14/19 History estradiol 0.01 % VAGINAL UD 02/14/19 02/14/19 History fenofibrate nanocrystallized 145 mg PO HS 02/14/19 02/14/19 History fluticasone propionate 1 spray INTRANASAL QAM 02/14/19 02/14/19 History furosemide 40 mg PO QAM 02/14/19 02/14/19 History gabapentin 300 mg PO QDL 02/14/19 02/14/19 History gabapentin 600 mg PO BID 02/14/19 02/14/19 History hydralazine 100 mg PO TID 02/14/19 02/14/19 History hydrocodone-acetaminophen 2 tab PO BID 02/14/19 02/14/19 History insulin glargine [Lantus Solostar 20 unit SUBCUT BID 02/14/19 02/14/19 History U-100 Insulin] insulin lispro [Humalog KwikPen 10 unit SUBCUT AC 02/14/19 02/14/19 History Insulin] isosorbide mononitrate 120 mg PO QAM 02/14/19 02/14/19 History nitroglycerin [Nitrostat] 0.4 mg SUBLINGUAL UD 02/14/19 02/14/19 History pantoprazole 40 mg PO QDD 02/14/19 02/14/19 History ranitidine HCl 150 mg PO BID 02/14/19 02/14/19 History rosuvastatin 40 mg PO HS 02/14/19 02/14/19 History sennosides-docusate sodium 2 tab PO HS PRN 02/14/19 02/14/19 History [Senokot-S] sertraline 50 mg PO QAM 02/14/19 02/14/19 History terazosin 1 mg PO HS 02/14/19 02/14/19 History topiramate 25 mg PO BID 02/14/19 02/14/19 History Allergies Allergy/AdvReac Type Severity Reaction Status Date / Time metformin Allergy Intermediate causes Verified 02/14/19 11:34 kidney problems Bactrim Allergy Unknown "ITS BEEN Verified 01/23/18 23:34 SO LONG, I FORGET" loratadine Allergy Unknown MOUTH Verified 02/14/19 11:34 SWELLING sulfamethoxazole Allergy Unknown "ITS BEEN Verified 02/14/19 11:34 SO LONG, I FORGET" trimethoprim Allergy Unknown "ITS BEEN Verified 02/14/19 11:34 SO LONG, I FORGET" Sulfa (Sulfonamide AdvReac Unknown NAUSEA Verified 02/14/19 11:34 Antibiotics) HMG-CoA-R Inhibitors AdvReac Mild GI UPSET Uncoded 02/14/19 11:34 Past Med/Surg History Medical History CAD (coronary artery disease) (Chronic) Insulin dependent diabetes mellitus (Chronic) HLD (hyperlipidemia) (Chronic) Morbid obesity (Chronic) IBS (irritable bowel syndrome) (Chronic) GERD (gastroesophageal reflux disease) (Chronic) Adjustment disorder (Chronic) Hypertension (Chronic) CKD (chronic kidney disease), stage III (Chronic) Hyponatremia (Chronic) Paroxysmal A-fib (Chronic) Surgical History H/O: hysterectomy (Chronic) S/P cholecystectomy (Chronic) H/O hernia repair (Chronic) H/O: (Chronic) Family History Other No pertinent family history Social History Preferred Language: Setswana Communication Ability: Effective Visual Impairment: No Limitations Wide Area Network Administrator Required: No Beliefs That Will Affect Care: None Current Living Situation: Family Other Information That Helps Us Care for You: No Feels Safe at Home: Yes Safety Concerns: Feels Safe At This Time Smoking Status: Never smoker Do You Dip or Chew Tobacco: No Second Hand Exposure: No Tobacco Cessation Education Requested by Patient: No Hx Alcohol Use: No Hx Substance Use: No Review of Systems See HPI for pertinent positives & negatives. and A total of 10 systems reviewed and were otherwise negative Physical Exam Vital Signs Vital Signs - 24 hr 02/14/19 09:50 02/14/19 09:52 02/14/19 09:53 Temperature 36.9 C Temperature Source Oral Sepsis Recent Fever Within 48 Hours No Sepsis Action Taken by Nursing No Action Required Pulse Rate 64 72 56 L Pulse Rate [Left Finger] Pulse Rate from SpO2 Sensor 60 Pulse Rhythm Regular Pulse Strength Normal Respiratory Rate 20 14 22 Respiratory Effort / Characteristics Non-Labored Spontaneous Respiratory Depth Normal Respiratory Pattern Blood Pressure 145/52 H 145/52 H Blood Pressure [Left Arm] Blood Pressure Mean 83 83 Blood Pressure Mean [Left Arm] Blood Pressure Position Lying Pulse Oximetry 94 94 Oxygen Delivery Method Room Air 02/14/19 10:00 02/14/19 10:10 02/14/19 10:20 Temperature Temperature Source Sepsis Recent Fever Within 48 Hours Sepsis Action Taken by Nursing Pulse Rate 57 L 57 L Pulse Rate [Left Finger] Pulse Rate from SpO2 Sensor 57 L 57 L 60 Pulse Rhythm Pulse Strength Respiratory Rate 17 21 15 Respiratory Effort / Characteristics Respiratory Depth Respiratory Pattern Blood Pressure Blood Pressure [Left Arm] Blood Pressure Mean Blood Pressure Mean [Left Arm] Blood Pressure Position Pulse Oximetry 94 92 93 Oxygen Delivery Method 02/14/19 10:30 02/14/19 10:33 02/14/19 10:51 Temperature Temperature Source Sepsis Recent Fever Within 48 Hours Sepsis Action Taken by Nursing Pulse Rate 60 Pulse Rate [Left Finger] 61 Pulse Rate from SpO2 Sensor 60 Pulse Rhythm Pulse Strength Respiratory Rate 17 18 Respiratory Effort / Characteristics Respiratory Depth Respiratory Pattern Blood Pressure 145/52 H Blood Pressure [Left Arm] 145/52 H Blood Pressure Mean 83 Blood Pressure Mean [Left Arm] 83 Blood Pressure Position Pulse Oximetry 92 91 Oxygen Delivery Method Room Air 02/14/19 11:04 02/14/19 11:10 02/14/19 11:20 Temperature Temperature Source Sepsis Recent Fever Within 48 Hours Sepsis Action Taken by Nursing Pulse Rate 63 62 63 Pulse Rate [Left Finger] Pulse Rate from SpO2 Sensor 62 Pulse Rhythm Pulse Strength Respiratory Rate 17 22 16 Respiratory Effort / Characteristics Respiratory Depth Respiratory Pattern Blood Pressure Blood Pressure [Left Arm] Blood Pressure Mean Blood Pressure Mean [Left Arm] Blood Pressure Position Pulse Oximetry 92 Oxygen Delivery Method 02/14/19 11:30 02/14/19 11:40 02/14/19 11:50 Temperature Temperature Source Sepsis Recent Fever Within 48 Hours Sepsis Action Taken by Nursing Pulse Rate 61 72 69 Pulse Rate [Left Finger] Pulse Rate from SpO2 Sensor 61 62 63 Pulse Rhythm Pulse Strength Respiratory Rate 15 24 22 Respiratory Effort / Characteristics Respiratory Depth Respiratory Pattern Blood Pressure Blood Pressure [Left Arm] Blood Pressure Mean Blood Pressure Mean [Left Arm] Blood Pressure Position Pulse Oximetry 94 92 90 Oxygen Delivery Method 02/14/19 11:55 02/14/19 12:00 02/14/19 12:01 Temperature Temperature Source Sepsis Recent Fever Within 48 Hours Sepsis Action Taken by Nursing Pulse Rate 60 62 63 Pulse Rate [Left Finger] Pulse Rate from SpO2 Sensor 61 62 63 Pulse Rhythm Pulse Strength Respiratory Rate 13 14 19 Respiratory Effort / Characteristics Respiratory Depth Respiratory Pattern Blood Pressure 145/52 H 132/52 L Blood Pressure [Left Arm] Blood Pressure Mean 83 78 Blood Pressure Mean [Left Arm] Blood Pressure Position Pulse Oximetry 94 92 91 Oxygen Delivery Method 02/14/19 12:10 02/14/19 12:20 02/14/19 12:30 Temperature Temperature Source Sepsis Recent Fever Within 48 Hours Sepsis Action Taken by Nursing Pulse Rate 65 63 Pulse Rate [Left Finger] Pulse Rate from SpO2 Sensor 62 63 61 Pulse Rhythm Pulse Strength Respiratory Rate 18 17 16 Respiratory Effort / Characteristics Respiratory Depth Respiratory Pattern Blood Pressure Blood Pressure [Left Arm] Blood Pressure Mean Blood Pressure Mean [Left Arm] Blood Pressure Position Pulse Oximetry 92 92 88 L Oxygen Delivery Method 02/14/19 12:40 02/14/19 12:50 02/14/19 13:00 Temperature Temperature Source Sepsis Recent Fever Within 48 Hours Sepsis Action Taken by Nursing Pulse Rate 80 59 L 58 L Pulse Rate [Left Finger] Pulse Rate from SpO2 Sensor 60 60 59 L Pulse Rhythm Pulse Strength Respiratory Rate 14 17 18 Respiratory Effort / Characteristics Respiratory Depth Respiratory Pattern Blood Pressure Blood Pressure [Left Arm] Blood Pressure Mean Blood Pressure Mean [Left Arm] Blood Pressure Position Pulse Oximetry 96 98 100 Oxygen Delivery Method 02/14/19 13:01 02/14/19 13:10 02/14/19 13:20 Temperature Temperature Source Sepsis Recent Fever Within 48 Hours Sepsis Action Taken by Nursing Pulse Rate 66 68 60 Pulse Rate [Left Finger] Pulse Rate from SpO2 Sensor 59 L 61 60 Pulse Rhythm Pulse Strength Respiratory Rate 20 18 18 Respiratory Effort / Characteristics Respiratory Depth Respiratory Pattern Blood Pressure 142/60 H Blood Pressure [Left Arm] Blood Pressure Mean 87 Blood Pressure Mean [Left Arm] Blood Pressure Position Pulse Oximetry 99 98 97 Oxygen Delivery Method 02/14/19 13:30 02/14/19 13:40 02/14/19 13:45 Temperature Temperature Source Sepsis Recent Fever Within 48 Hours Sepsis Action Taken by Nursing Pulse Rate 59 L 58 L Pulse Rate [Left Finger] Pulse Rate from SpO2 Sensor 58 L Pulse Rhythm Pulse Strength Respiratory Rate 15 22 Respiratory Effort / Characteristics Non-Labored Spontaneous Respiratory Depth Normal Respiratory Pattern Tachypnea Blood Pressure Blood Pressure [Left Arm] Blood Pressure Mean Blood Pressure Mean [Left Arm] Blood Pressure Position Pulse Oximetry 99 Oxygen Delivery Method Room Air GENERAL: Obese. She is oriented to person, place, and time. She appears well- developed and well-nourished. She does appear in pain. HENT: Exam performed. - Head: Normocephalic and atraumatic. - Right Ear: External ear normal. No mastoid tenderness. - Left Ear: External ear normal. No mastoid tenderness. - Mouth/Throat: The oropharynx is clear and moist. No trismus in the jaw. No dental abscesses or uvula swelling. No oropharyngeal exudate or tonsillar abscesses. EYES: Conjunctivae and EOM are normal. Pupils are equal, round, and reactive to light. Right eye exhibits no discharge. Left eye exhibits no discharge. No scleral icterus. NECK: In C-collar. CV: Normal rate, regular rhythm, normal heart sounds and intact distal pulses. There is no peripheral edema. Palpable radial pulses bue. PULM/CHEST: Effort normal and breath sounds normal. No respiratory distress. No stridor. She has no wheezes. She has no rales. Chest Wall: She exhibits no tenderness. ABD: The abdomen is soft. Bowel sounds are normal. She has no distension. No mass is present. There is no tenderness. There is no rebound, no guarding, no Gonzalez's sign and no tenderness at McBurney's point. Rovsig negative MUSC/SKEL: Normal range of motion. There is no peripheral edema, tenderness or deformity. No T or L spine tenderness. Pelvis stable. LYMPH: No cervical adenopathy. NEURO: She is alert and oriented to person, place, and time. She has normal strength. No cranial nerve deficit or sensory deficit. Coordination and gait normal. GCS eye subscore is 4. GCS verbal subscore is 5. GCS motor subscore is 6. cerbellar tests wnl. SKIN: Skin is warm and dry. She is not diaphoretic. PSYCH: She has a normal mood and affect. Her behavior is normal. Judgment and thought content normal. Course 0946: Past medical records reviewed. The patient was evaluated in room B04B. A complete history and physical examination was performed. 1115: The CT shows a teardrop fracture of C4 as well as mildly distracted fracture of left lateral C1. Dr. Kinney will be paged. 1117: Dr. Gregoria [facility]uesada Spine was paged. 1137: Repeat page out for Dr. Gregoria Quesada Spine. 1157: I reviewed the patient's case with Dr. Gregoria Quesada [facility]ine. He states that he will review the CT and call back. 1207: I reviewed the patient's case with Dr. Gregoria Quesada Spine. He states that he does not think the fractures are operative. I discussed with him that the patient is still having significant pain. He is in agreement that the patient can be admitted for pain management to the hospital service. Lana was paged. 1251: Vital signs stable. Labs within normal limits. The CT shows a Misael fracture of C1 and a teardrop fracture of C4. I discussed the patients case with Dr. Kinney who states that the patient does not require acute operation. Gi jarret that the patient continues to have pain and is neurologically intact, Dr. Kinney agrees to admit the patient to medical services and states that he will be on consult. I spoke with Supriya Schwartz who admitted to Dr. Ackerman. Consultations Consultation #1: [id number]: I reviewed the patient's case with Dr. Kinney - [facility]. He states that he will review the CT and call back. Time: 11:57 Consultation #2: [id number]: I reviewed the patient's case with Dr. Kinney - [facility]. He states that he does not think the fractures are operative. I discussed with him that the patient is still having significant pain. He is in agreement that the patient can be admitted for pain management to the hospital service. Natalysonam was paged. Time: 12:07 Consultation #3: [id number]: Vital signs stable. The CT shows a fracture of C1 and a teardrop fracture of C4. I discussed the patients case with Dr. Kinney who states that the patient does not require acute operation. Given that the patient continues to have pain and is neurologically intact, Dr. Kinney agrees to admit the patient to medical services and states that he will be on consult. I spoke with Supriya Schwartz who admitted to Dr. Ackerman. Time: 12:51 Administered Medications Heparin Sodium (Porcine) (Heparin Sodium (Porcine)) 5,000 units SQ Q8 [facility] Stop: 03/16/19 15:33 Last Admin: 02/14/19 16:05 Dose: 5,000 units Documented by: [id number] Cosigned by: [id number] Hydromorphone HCl (Dilaudid) 0.5 mg IV Q3H PRN PRN Reason: Pain Stop: 02/28/19 15:33 Last Admin: 02/14/19 16:04 Dose: 0.5 mg Documented by: [id number] Sodium Chloride (Nss 1000ml) 1,000 mls @ 75 mls/hr IV .[id number] [facility] Stop: 03/16/19 12:14 Last Admin: 02/14/19 12:19 Dose: 75 mls/hr Documented by: [id number] Potassium Chloride (K Suresh / Wtr) 10 meq in 100 mls @ 100 mls/hr IV Q1H [facility] Stop: 02/14/19 18:59 Last Admin: 02/14/19 16:05 Dose: 100 mls/hr Documented by: [id number] Discontinued Medications Hydromorphone HCl (Dilaudid) 1 mg IV NOW STA Stop: 02/14/19 12:14 Last Admin: 02/14/19 12:18 Dose: 1 mg Documented by: [id number] Morphine Sulfate (Morphine Sulfate) 4 mg IV NOW STA Stop: 02/14/19 11:21 Last Admin: 02/14/19 11:26 Dose: 4 mg Documented by: [id number] Ondansetron HCl (Zofran) 4 mg IV NOW STA Stop: 02/14/19 11:21 Last Admin: 02/14/19 11:26 Dose: 4 mg Documented by: [id number] Potassium Chloride (Klor-Con M20) 40 meq PO NOW STA Stop: 02/14/19 12:46 Last Admin: 02/14/19 13:24 Dose: Not Given Documented by: [id number] Medical Decision Making Medical Records Attestation: I reviewed the patient's medical records. Home Medications Current Medication List: was personally reviewed by me Laboratory Data Attestation: I reviewed the patient's lab results. Result diagrams: 02/14/19 10:15 02/14/19 11:12 Lab Results 02/14/19 02/14/19 02/14/19 Range/Units 10:15 10:15 10:15 WBC 12.03 H (4.8-10.8) K/uL RBC 3.51 L (4.2-5.4) M/uL Hgb 9.8 L (12.0-16.0) g/dL Hct 30.1 L (37-47) % MCV 85.8 (80-100) fL MCH 27.9 (25-34) pg MCHC 32.6 (32-36) g/dL RDW Std Deviation 46.7 H (36.4-46.3) fL RDW Coeff of Isabel 14.7 H (11.5-14.5) % Plt Count 196 (130-400) K/uL MPV 9.7 (7.4-10.4) fL Immature Gran % (Auto) 0.3 % Neut % (Auto) 75.9 % Lymph % (Auto) 15.6 % [place] % (Auto) 6.3 % Eos % (Auto) 1.7 % Baso % (Auto) 0.2 % Immature Gran # (Auto) 0.04 H (0.00-0.02) K/uL Neut # (Auto) 9.13 H (1.4-6.5) K/uL Lymph # (Auto) 1.88 (1.2-3.4) K/uL [place] # (Auto) 0.76 H (0.11-0.59) K/uL Eos # (Auto) 0.20 (0-0.5) K/uL Baso # (Auto) 0.02 (0-0.2) K/uL Absolute Nucleated RBC 0.00 (0-0) K/uL Nucleated RBC % (auto) 0.0 % Peripher Smr Path Cons PT 10.5 (9.0-12.0) Seconds INR 1.0 (0.9-1.1) APTT 24.8 (21.0-31.0) Seconds PTT Ratio 0.9 Sodium 134 L (136-145) mmol/L Potassium (3.5-5.1) mmol/L Chloride 98 (98-107) mmol/L Carbon Dioxide 29 (21-32) mmol/L Anion Gap 7.0 (3-11) BUN 31 H (7-18) mg/dl Creatinine 1.78 H (0.6-1.2) mg/dl Est Cr Clr Drug Dosing 23.9 ml/min Est GFR ( Amer) 32.2 Est GFR (Non-Af Amer) 27.8 BUN/Creatinine Ratio 17.5 (10-20) Glucose 163 H (70-99) mg/dl POC Glucose (70-99) Calcium 8.6 (8.5-10.1) mg/dl 02/14/19 02/14/19 02/14/19 Range/Units 10:15 10:16 11:12 WBC (4.8-10.8) K/uL RBC (4.2-5.4) M/uL Hgb (12.0-16.0) g/dL Hct (37-47) % MCV (80-100) fL MCH (25-34) pg MCHC (32-36) g/dL RDW Std Deviation (36.4-46.3) fL RDW Coeff of Isabel (11.5-14.5) % Plt Count (130-400) K/uL MPV (7.4-10.4) fL Immature Gran % (Auto) % Neut % (Auto) % Lymph % (Auto) % [place] % (Auto) % Eos % (Auto) % Baso % (Auto) % Immature Gran # (Auto) (0.00-0.02) K/uL Neut # (Auto) (1.4-6.5) K/uL Lymph # (Auto) (1.2-3.4) K/uL [place] # (Auto) (0.11-0.59) K/uL Eos # (Auto) (0-0.5) K/uL Baso # (Auto) (0-0.2) K/uL Absolute Nucleated RBC (0-0) K/uL Nucleated RBC % (auto) % Peripher Smr Path Cons Cancelled PT (9.0-12.0) Seconds INR (0.9-1.1) APTT (21.0-31.0) Seconds PTT Ratio Sodium (136-145) mmol/L Potassium 3.2 L (3.5-5.1) mmol/L Chloride (98-107) mmol/L Carbon Dioxide (21-32) mmol/L Anion Gap (3-11) BUN (7-18) mg/dl Creatinine (0.6-1.2) mg/dl Est Cr Clr Drug Dosing ml/min Est GFR ( Amer) Est GFR (Non-Af Amer) BUN/Creatinine Ratio (10-20) Glucose (70-99) mg/dl POC Glucose 178 H (70-99) Calcium (8.5-10.1) mg/dl Imaging Data Radiologist's Impression: Radiology results as stated below per my review and the radiologist's interpretation: CT abd pelvis wo con CLINICAL HISTORY: 73 years-old Female presenting with fall, neck pain. TECHNIQUE: Multidetector CT of the abdomen and pelvis was performed without the use of intravenous contrast. IV contrast: None. One or more dose lowering techniques were used consistent with the principles of ALARA (as low as reasonably achievable), including automatic exposure control, mA or kV adjustment to individual patient size, and/or use of iterative reconstruction. COMPARISON: 01/13/2018. CT DOSE (mGy.cm): The estimated cumulative dose is 932.38 mGycm. FINDINGS: Hedis Nurse topogram: Cholecystectomy clips. Lung bases: Multichamber enlargement of the heart. Coronary artery, aortic valve, and mitral annular calcification. No pericardial or pleural effusion. Pulmonary vascular prominence. Mosaic attenuation may suggest small airways disease. Mild interlobular septal thickening. Liver: Normal morphology. Normal density. Biliary: Mild biliary ductal prominence likely a reservoir effect in the post cholecystectomy state. Gallbladder surgically absent. Pancreas: Moderate parenchymal atrophy. Spleen: Normal noncontrast appearance. Adrenal glands: Normal noncontrast appearance. Kidneys and ureters: Normal noncontrast appearance. No nephrolithiasis. No hydronephrosis. Normal ureters. Bladder: Normal noncontrast appearance. Pelvic organs: Uterus surgically absent. Bowel: Mild stool burden throughout normal caliber colon. The appendix may be present and grossly normal. No inflammatory change in the region of the cecum. No bowel obstruction. Peritoneal cavity: No free fluid or intraperitoneal gas. Lymph nodes: No gross lymphadenopathy allowing for noncontrast technique. Vasculature: Atherosclerosis of the normal caliber abdominal aorta. Abdominal wall: Normal. Musculoskeletal: Degenerative changes of the spine. IMPRESSION: 1. Allowing for noncontrast technique, no acute intra-abdominal pathology. 2. Mild congestive changes may be present at the lung bases. 3. Possible small airways disease at the lung bases. Electronically signed by: Niraj Iniguez M.D. 02/14/2019 11:10 AM Dictated: 02/14/19 1105 Transcribed: 02/14/19 1105 XR shoulder RT min 2V routine CLINICAL HISTORY: 73 years-old Female presenting with fall. TECHNIQUE: Internal rotation, external rotation, Grashey views of the right shoulder were obtained. COMPARISON: 09/13/2014. FINDINGS: Widening of the right acromioclavicular joint greater than on prior exam. Lateral humeral joint congruent though significant joint space loss is evident. Osteophytosis is noted at both the acromioclavicular and glenohumeral joints though greater at the glenohumeral joint. Prominent enthesophyte at the inferior humeral head. Mild remodeling of the bony glenoid suggested. Possible underlying osteopenia. Allowing for this, no acute fracture or subluxation. IMPRESSION: 1. Abnormal widening of the AC joint concerning for grade 1-2 injury. 2. Advanced degenerative changes primarily of the glenohumeral joint with joint space loss and prominent osteophytosis. 3. Allowing for osteopenia, no acute osseous injury. Electronically signed by: Niraj Iniguez M.D. 02/14/2019 10:32 AM Dictated: 02/14/19 1031 Transcribed: 02/14/19 1031 XR pelvis 1-2V routine CLINICAL HISTORY: Pelvic pain status post trauma COMPARISON: None. DISCUSSION: The study is somewhat limited from a technical standpoint. Degenerative changes are present within the lower lumbar spine. No fractures are visualized. There is no SI joint diastases. There is no symphysis diastases. IMPRESSION: 1. No fractures identified on conventional radiographic imaging Electronically signed by: Khoa Ladd M.D. 02/14/2019 10:31 AM Dictated: 02/14/19 1030 Transcribed: 02/14/[address] head/brain wo con CLINICAL HISTORY: 73 years-old Female presenting with fall, neck pain. TECHNIQUE: Multidetector CT imaging of the head was performed without the use of intravenous contrast. IV contrast: None. One or more dose lowering techniques were used consistent with the principles of ALARA (as low as reasonably achievable), including automatic exposure control, mA or kV adjustment to individual patient size, and/or use of iterative reconstruction. COMPARISON: 01/14/2018. CT DOSE (mGy.cm): The estimated cumulative dose is 638.56 mGycm. FINDINGS: Hedis Nurse topogram: The patient is edentulous. Ventricles and sulci normal in size. No hemorrhage. Brain parenchyma normal in appearance with preserved martines-white differentiation. No acute territorial infarct. No mass effect or midline shift. No extra-axial fluid collection. Paranasal sinuses and mastoid air cells clear. Calvarium intact. Absent [place] lenses. Cerumen may be present in the right external auditory canal. Possible exostosis in the external auditory canal the right. IMPRESSION: 1. No acute intracranial abnormality. Electronically signed by: Niraj Iniguez M.D. 02/14/2019 11:04 AM Dictated: 02/14/19 1101 Transcribed: 02/14/19 1101 XR chest 1V portable CLINICAL HISTORY: Chest pain status post trauma COMPARISON STUDY: January 23, 2018 FINDINGS: The heart is mildly enlarged. There is calcification within the mitral valve annulus. There are aortic calcifications. There is no focal pulmonary consolidation. There are no pleural effusions. No pneumothorax is visualized.[ There is mild vascular prominence without evidence of overt failure. IMPRESSION: No active disease in the chest. Electronically signed by: Khoa Ladd M.D. 02/14/2019 10:32 AM Dictated: 02/14/19 1031 Transcribed: 02/14/[address] OF THE CERVICAL SPINE WITHOUT CONTRAST CLINICAL HISTORY: neck pain/fall COMPARISON STUDY: No previous studies for comparison. TECHNIQUE: Helical axial images of the cervical spine were obtained without IV contrast. Sagittal and coronal reconstructions were viewed. Automated exposure control was utilized for the study. A dose lowering technique was utilized adhering to the principles of ALARA. FINDINGS: Note is made of an acute fracture of the left lateral mass of C1 which is distracted 3 mm. There is also an acute nondisplaced fracture of the left lamina of C1. There is also made of a mildly displaced avulsion fracture of the anterior inferior aspect of the C4 vertebral body. No additional acute cervical spine fractures are identified. The craniocervical junction is intact. Multinodular thyroid gland is incidentally noted. There is moderate multilevel degenerative disc disease and facet arthrosis within the cervical spine. Facet joints are intact. IMPRESSION: 1. Acute mildly distracted (3mm) fracture of the left lateral mass of C1. Acute nondisplaced fracture of the left lamina of C1. 2. Acute mildly displaced avulsion fracture of the anterior inferior aspect of the C4 vertebral body. Electronically signed by: Stef Dennis M.D. 02/14/2019 11:08 AM Dictated: 02/14/19 1101 Transcribed: 02/14/19 1101 ECG Data Attestation: I personally reviewed and interpreted this ECG as follows: Indication: other (fall) Rate (beats per minute): 58 Rhythm: sinus rhythm Findings: + other (AR 208, QRS and QTC within normal limits. ), + 1st degree AV block and + T-wave inversion (in lead 3); no ST depression and no ST elevation Blood Pressure Blood Pressure Findings: Elevated blood pressure Blood Pressure Disposition: further management by hospitalist DWIGHT Narrative 0946: Past medical records reviewed. The patient was evaluated in room B04B. A complete history and physical examination was performed. 1115: The CT shows a teardrop fracture of C4 as well as mildly distracted fracture of left lateral C1. Dr. Kinney will be paged. 1117: Dr. Kinney - [facility] was paged. 1137: Repeat page out for Dr. Gregoria [facility]. 1157: I reviewed the patient's case with Dr. Gregoria [facility]. He s tates that he will review the CT and call back. 1207: I reviewed the patient's case with Dr. Gregoria [facility]ues[facility]. He states that he does not think the fractures are operative. I discussed with him that the patient is still having significant pain. He is in agreement that the patient can be admitted for pain management to the hospital service. Lana was paged. 1251: Vital signs stable. Labs within normal limits. The CT shows a Misael fracture of C1 and a teardrop fracture of C4. I discussed the patients case with Dr. Kinney who states that the patient does not require acute operation. Given that the patient continues to have pain and is neurologically intact, Dr. Kinney agrees to admit the patient to medical services and states that he will be on consult. I spoke with Supriya Borden PA-C Hospitalist - Lana who admitted to Dr. cAkerman. Impression & Plan Teardrop fracture of cervical vertebra, Closed Misael fracture Critical Care Time Critical Care Time: Yes (51) Total Critical Care Time: 51 I have personally spent 51 minutes of critical care time in the direct management of this patient. This includes bedside care, interpretation of diagnostic studies, and testing, discussion with consultants, patient, and family members, and other required patient management activities. This 51 minutes is in excess of all separately billable procedures. Discharge Plan Visit Data *Final* Discharge Date/Time: 02/14/19 14:26 Chief Complaint: Fall ED Provider: Figueroa Ng Discharge Problem: Teardrop fracture of cervical vertebra, Closed Misael fracture Patient Disposition: Admitted As Inpatient Discharge Instructions Interventions: ED Discharge Assessment Last Done: 02/14/19 14:26 Discharge Problem: Teardrop fracture of cervical vertebra Qualifiers: Encounter type: initial encounter Qualified Code(s): S12.9XXA - Fracture of neck, unspecified, initial encounter Closed Misael fracture Qualifiers: Encounter type: initial encounter Qualified Code(s): S12.01XA - Stable burst fracture of first cervical vertebra, initial encounter for closed fracture The scribe's documentation has been prepared under my direction and personally reviewed by me in its entirety. I confirm that the note above accurately reflects all work, treatment, procedures, and medical decision making performed by me.
[2019-02-14] MEDS ORDERED: DOCUSATE SODIUM/SENNA 50/8.6MG TAB PO PRN (18:07)
[2019-02-14] MEDS: INSULIN ASPART 100 UNITS/ML 3 ML PEN SC SCH ×2 (18:50→20:56)
[2019-02-14] MEDS: CARVEDILOL 12.5 MG TAB PO SCH (20:52)
[2019-02-14] MEDS: ROSUVASTATIN CALCIUM 20 MG TAB PO SCH (20:52)
[2019-02-14] MEDS: HydrALAZINE TAB 50 MG TAB PO SCH (20:53)
[2019-02-14] MEDS: GABAPENTIN 300 MG CAP PO SCH (20:53)
[2019-02-14] MEDS: clonazePAM 1 MG TAB PO SCH (20:54)
[2019-02-14] MEDS: TOPIRAMATE 25 MG TAB PO SCH (20:55)
[2019-02-14] MEDS: INSULIN GLARGINE SOLOSTAR 100 UNITS/ML 3 ML PEN SC SCH (20:57)
[2019-02-14] MEDS ORDERED: INSULIN GLARGINE SOLOSTAR 100 UNITS/ML 3 ML PEN SC SCH (21:00)
[2019-02-15] MEDS: HEPARIN SOD 5,000 UNIT/0.5 ML VIAL SQ SCH ×3 (06:18→21:36)
[2019-02-15 07:00] LABS: Hematocrit (blood only) 29.5 % (37-47); Hemoglobin 9.4 g/dL (12.0-16.0); Mean Corpuscular Hgb Conc 31.9 g/dL (32-36); Mean Corpuscular Volume 87.3 fL (80-100); Mean Platelet Volume 9.2 fL (7.4-10.4); Platelet Count 183 K/uL (130-400); RDW Coefficient of Variation 14.7 % (11.5-14.5); RDW Standard Deviation 46.8 fL (36.4-46.3); Red Blood Count 3.38 M/uL (4.2-5.4); White Blood Count 10.91 K/uL (4.8-10.8)
[2019-02-15 07:21] LABS: Estimated Average Glucose 160 mg/dl; Hemoglobin A1C 7.2 % (4.5-5.6)
[2019-02-15 07:30] LABS: BUN Creatinine Ratio 16.7 (10-20); Calcium 8.4 mg/dl (8.5-10.1); Creatinine Clr Calc Pharmacy 33.7 ml/min; Est GFR (Non-African American) 35.3; Potassium 3.5 mmol/L (3.5-5.1)
[2019-02-15] MEDS: SERTRALINE HCL 50 MG TABLET PO SCH (08:47)
[2019-02-15] MEDS: ASPIRIN 81 MG ECTAB PO SCH (08:48)
[2019-02-15] MEDS: GABAPENTIN 300 MG CAP PO SCH ×3 (08:49→21:30)
[2019-02-15] MEDS: TOPIRAMATE 25 MG TAB PO SCH ×2 (08:50→21:30)
[2019-02-15] MEDS: FLUTICASONE PROPIONATE NA SPR 16 GM BTL NAE SCH (08:51)
[2019-02-15] MEDS: FUROSEMIDE 40 MG TAB PO SCH (08:52)
[2019-02-15] MEDS: HydrALAZINE TAB 50 MG TAB PO SCH ×3 (08:56→21:29)
[2019-02-15] MEDS: ISOSORBIDE MONO EXTENDED REL 60 MG TABCR PO SCH (08:57)
[2019-02-15] MEDS: AMLODIPINE BESYLATE 5 MG TAB PO SCH (08:57)
[2019-02-15] MEDS: CARVEDILOL 12.5 MG TAB PO SCH ×2 (08:57→21:30)
[2019-02-15] MEDS: INSULIN ASPART 100 UNITS/ML 3 ML PEN SC SCH ×5 (09:00→21:36)
[2019-02-15] MEDS: INSULIN GLARGINE SOLOSTAR 100 UNITS/ML 3 ML PEN SC SCH ×2 (09:00→21:35)
--- NOTE | 2019-02-15 09:01 | Orthopedic Consultation ---
Date of Consultation February 15, 2019 Assessment & Plan (1) Teardrop fracture of cervical vertebra: This time she is to maintain the cervical collar at all times. We will begin oral pain medications to see if this provides some additional control of her discomfort. Present on Admission?: Yes History of Present Illness Reason for Consultation: Neck pain status post fall Attending Physician: Roma Capone MD History of Present Illness This is a 73-year-old female that presents the emergency room yesterday status post fall at home. She was diagnosed with a C1 fracture. She was admitted for pain control. Allergies Allergy/AdvReac Type Severity Reaction Status Date / Time metformin Allergy Intermediate causes Verified 02/14/19 11:34 kidney problems Bactrim Allergy Unknown "ITS BEEN Verified 01/23/18 23:34 SO LONG, I FORGET" loratadine Allergy Unknown MOUTH Verified 02/14/19 11:34 SWELLING sulfamethoxazole Allergy Unknown "ITS BEEN Verified 02/14/19 11:34 SO LONG, I FORGET" trimethoprim Allergy Unknown "ITS BEEN Verified 02/14/19 11:34 SO LONG, I FORGET" Sulfa (Sulfonamide AdvReac Unknown NAUSEA Verified 02/14/19 11:34 Antibiotics) HMG-CoA-R Inhibitors AdvReac Mild GI UPSET Uncoded 02/14/19 11:34 Home Medications Home Medications Medication Instructions Recorded Confirmed Type Lactobacillus acidophilus 2 cap PO TIDM 02/14/19 02/14/19 History amlodipine 10 mg PO QAM 02/14/19 02/14/19 History aspirin 81 mg PO QAM 02/14/19 02/14/19 History carvedilol 12.5 mg PO BID 02/14/19 02/14/19 History cholecalciferol (vitamin D3) 1,000 unit PO DAILY 02/14/19 02/14/19 History [Vitamin D3] clonazepam 1 mg PO HS 02/14/19 02/14/19 History clonidine HCl 0.2 mg PO BID 02/14/19 02/14/19 History estradiol 0.01 % VAGINAL UD 02/14/19 02/14/19 History fenofibrate nanocrystallized 145 mg PO HS 02/14/19 02/14/19 History fluticasone propionate 1 spray INTRANASAL QAM 02/14/19 02/14/19 History furosemide 40 mg PO QAM 02/14/19 02/14/19 History gabapentin 300 mg PO QDL 02/14/19 02/14/19 History gabapentin 600 mg PO BID 02/14/19 02/14/19 History hydralazine 100 mg PO TID 02/14/19 02/14/19 History hydrocodone-acetaminophen 2 tab PO BID 02/14/19 02/14/19 History insulin glargine [Lantus Solostar 20 unit SUBCUT BID 02/14/19 02/14/19 History U-100 Insulin] insulin lispro [Humalog KwikPen 10 unit SUBCUT AC 02/14/19 02/14/19 History Insulin] isosorbide mononitrate 120 mg PO QAM 02/14/19 02/14/19 History nitroglycerin [Nitrostat] 0.4 mg SUBLINGUAL UD 02/14/19 02/14/19 History pantoprazole 40 mg PO QDD 02/14/19 02/14/19 History ranitidine HCl 150 mg PO BID 02/14/19 02/14/19 History rosuvastatin 40 mg PO HS 02/14/19 02/14/19 History sennosides-docusate sodium 2 tab PO HS PRN 02/14/19 02/14/19 History [Senokot-S] sertraline 50 mg PO QAM 02/14/19 02/14/19 History terazosin 1 mg PO HS 02/14/19 02/14/19 History topiramate 25 mg PO BID 02/14/19 02/14/19 History Patient History Medical History CAD (coronary artery disease) (Chronic) Insulin dependent diabetes mellitus (Chronic) HLD (hyperlipidemia) (Chronic) Morbid obesity (Chronic) IBS (irritable bowel syndrome) (Chronic) GERD (gastroesophageal reflux disease) (Chronic) Adjustment disorder (Chronic) Hypertension (Chronic) CKD (chronic kidney disease), stage III (Chronic) Hyponatremia (Chronic) Paroxysmal A-fib (Chronic) Surgical History H/O: hysterectomy (Chronic) S/P cholecystectomy (Chronic) H/O hernia repair (Chronic) H/O: (Chronic) Family History Other No pertinent family history Social History Preferred Language: Amharic Communication Ability: Effective Visual Impairment: No Limitations Plant Care Worker Required: No Beliefs That Will Affect Care: None Current Living Situation: Family Other Information That Helps Us Care for You: No Feels Safe at Home: Yes Safety Concerns: Feels Safe At This Time Smoking Status: Never smoker Do You Dip or Chew Tobacco: No Second Hand Exposure: No Tobacco Cessation Education Requested by Patient: No Hx Alcohol Use: No Hx Substance Use: No Physical Exam Physical Exam: On exam patient is in bed. The collar is in place and fitting appropriately. She has good strength testing of bilateral upper and lower extremities. Results & Data Vital Signs (Past 12 Hours) Vital Signs Temp Pulse Resp BP Pulse Ox 02/15/19 08:55 62 169/73 H 97 02/15/19 07:06 36.8 C 62 16 144/70 H 100 (1) Teardrop fracture of cervical vertebra Encounter type: initial encounter Qualified Code(s): S12.9XXA - Fracture of neck, unspecified, initial encounter
[2019-02-15] MEDS: OXYCODONE HCL IR 5 MG TAB (IMMEDIATE RELEASE) PO PRN ×2 (09:06→17:08)
--- NOTE | 2019-02-15 10:47 | Hospitalist Progress Note ---
Date of Service February 15, 2019 Assessment & Plan (1) Fall: (2) Closed Misael fracture: (3) Teardrop fracture of cervical vertebra: This is a 73-year-old female with a PMH of type 2 diabetes, CAD, HTN, nocturnal hypoxia morbid obesity and other medical problems listed below who presents with head and neck pain after a fall at home and was found to have a closed Misael fracture and a teardrop fracture of cervical vertebra. -S/P Fall from commode at home after falling asleep. Denies syncopal event. Had taken morning [employer] and gabapentin. Possibly medication-induced ? -ED physician discussed with Dr. Kinney, on-call for ortho spine. Reviewed imaging-- does not feel that this is a surgical case. Instructed to continue wearing c-collar for now. Transitioned to large C- collar. Order placed for orthotics -IV Dilaudid q 3 hours prn, Oxycodone 5 mg q 6 hours prn for pain -CT cervical spine - Acute mildly distracted 3 mm fracture of left lateral mass of C1, acute nondisplaced fracture of left lamina of C1, acute mildly displaced avulsion fracture of anterior inferior aspect of the C4 vertebral body. X ray right shoulder-abnormal widening of AC joint concerning for grade 12 injury. Advanced degenerative changes, osteopenia, pelvic x-rayno fractures, CT headno acute abnormalities, chest x-rayno acute abnormalities, CT abdomen/pelvisno acute intra-abdominal pathology, mild congestive changes in lung bases, possible small airway disease at lung bases. (4) Insulin dependent diabetes mellitus: A1c of 6.9 in Sep 2018. Ordered new a1c -Hold home agents -Basal/bolus insulin while in-patient -BSG AC HS, Q6H while NPO (5) CAD (coronary artery disease): Stable, no chest pain -Continue Imdur, carvedilol, aspirin, statin (6) Hypertension: Normotensive. Continue home amlodipine, carvedilol, hydralazine (7) CKD (chronic kidney disease), stage III: Cr of 1.76 (baseline 1.6-1.8) -Continue monitoring with daily BMP (8) Mood disorder: Continue Zoloft, Clonazepam HS (9) GERD (gastroesophageal reflux disease): (10) HLD (hyperlipidemia): Continue statin DVT Ppx: SQ heparin Code status: FULL PCP: [place] Dispo: PT/OT ordered Medical mx in progress Patient lives with sisters and says at baseline she walks short distances. But doesnt take a shower, but a sponge bath and at night has a bedside commode. Hesitant about going to the rehab Subjective Patient is complaining of pain in her neck. Denies any numbness, tingling, weakness in extremities. Denies any pain in the back. Denies any dizziness, headache, nausea, vomiting. She is requiring maximum assistance currently. Physical Exam Physical Exam: General Appearance: WD/WN, no apparent distress, morbidly obese wearing C-collar Neck: C collar + Respiratory/Chest: Lungs clear to auscultation. No wheezes, rales or rhonchi. No respiratory distress or accessory muscle use Cardiovascular: regular rate, rhythm, no murmur, normal peripheral pulses Abdomen/GI: normal bowel sounds, soft, non-tender to palpation Neurologic/Psych: alert, normal mood/affect, oriented x 3, CN grossly intact. Able to move all 4 extremities Results & Data Vital Signs (Past 12 Hours) Vital Signs Temp Pulse Resp BP Pulse Ox 02/15/19 08:55 62 169/73 H 97 02/15/19 07:06 36.8 C 62 16 144/70 H 100 (1) Closed Misael fracture Encounter type: initial encounter Qualified Code(s): S12.01XA - Stable burst fracture of first cervical vertebra, initial encounter for closed fracture (2) Teardrop fracture of cervical vertebra Encounter type: initial encounter Qualified Code(s): S12.9XXA - Fracture of neck, unspecified, initial encounter
[2019-02-15] MEDS ORDERED: PANTOprazole 40 MG TAB PO SCH (16:30)
[2019-02-15] MEDS: ROSUVASTATIN CALCIUM 20 MG TAB PO SCH (21:30)
[2019-02-15] MEDS: clonazePAM 1 MG TAB PO SCH (21:30)
[2019-02-16] MEDS: HEPARIN SOD 5,000 UNIT/0.5 ML VIAL SQ SCH ×2 (05:16→14:01)
[2019-02-16 06:29] LABS: Hematocrit (blood only) 28.7 % (37-47); Hemoglobin 9.3 g/dL (12.0-16.0); Mean Corpuscular Hgb Conc 32.4 g/dL (32-36); Mean Corpuscular Volume 85.7 fL (80-100); Mean Platelet Volume 9.5 fL (7.4-10.4); Platelet Count 183 K/uL (130-400); RDW Coefficient of Variation 14.9 % (11.5-14.5); RDW Standard Deviation 46.6 fL (36.4-46.3); Red Blood Count 3.35 M/uL (4.2-5.4); White Blood Count 9.62 K/uL (4.8-10.8)
[2019-02-16 07:01] LABS: BUN Creatinine Ratio 14.9 (10-20); Calcium 8.5 mg/dl (8.5-10.1); Creatinine Clr Calc Pharmacy 32.2 ml/min; Est GFR (African American) 38.7; Est GFR (Non-African American) 33.4; Potassium 3.3 mmol/L (3.5-5.1)
[2019-02-16] MEDS: OXYCODONE HCL IR 5 MG TAB (IMMEDIATE RELEASE) PO PRN ×2 (08:12→14:00)
[2019-02-16] MEDS: HydrALAZINE TAB 50 MG TAB PO SCH ×2 (08:13→14:01)
[2019-02-16] MEDS: ASPIRIN 81 MG ECTAB PO SCH (08:13)
[2019-02-16] MEDS: TOPIRAMATE 25 MG TAB PO SCH (08:14)
[2019-02-16] MEDS: AMLODIPINE BESYLATE 5 MG TAB PO SCH (08:14)
[2019-02-16] MEDS: CARVEDILOL 12.5 MG TAB PO SCH (08:14)
[2019-02-16] MEDS: ISOSORBIDE MONO EXTENDED REL 60 MG TABCR PO SCH (08:14)
[2019-02-16] MEDS: FUROSEMIDE 40 MG TAB PO SCH ×2 (08:15→09:51)
[2019-02-16] MEDS: FLUTICASONE PROPIONATE NA SPR 16 GM BTL NAE SCH (08:15)
[2019-02-16] MEDS: GABAPENTIN 300 MG CAP PO SCH ×2 (08:15→10:52)
[2019-02-16] MEDS: INSULIN GLARGINE SOLOSTAR 100 UNITS/ML 3 ML PEN SC SCH (08:16)
[2019-02-16] MEDS: INSULIN ASPART 100 UNITS/ML 3 ML PEN SC SCH ×2 (08:18→13:59)
[2019-02-16] MEDS: SERTRALINE HCL 50 MG TABLET PO SCH (08:23)
[2019-02-16] MEDS ORDERED: POTASSIUM CHLORIDE 20 MEQ TABCR PO ONE (10:00)
--- NOTE | 2019-02-16 11:05 | Hospitalist Progress Note ---
Date of Service February 16, 2019 Assessment & Plan (1) Fall: (2) Closed Misael fracture: (3) Teardrop fracture of cervical vertebra: This is a 73-year-old female with a PMH of type 2 diabetes, CAD, HTN, nocturnal hypoxia morbid obesity and other medical problems listed below who presents with head and neck pain after a fall at home and was found to have a closed Misael fracture and a teardrop fracture of cervical vertebra. -S/P Fall from commode at home after falling asleep. Denies syncopal event. Had taken morning [employer] and gabapentin. Possibly medication-induced ? -Per ortho, no surgical intervention . -Pain mx: Oxycodone 5 mg q 6 hours prn for pain. Discontinue IV Dilaudid -CT cervical spine - Acute mildly distracted 3 mm fracture of left lateral mass of C1, acute nondisplaced fracture of left lamina of C1, acute mildly displaced avulsion fracture of anterior inferior aspect of the C4 vertebral body. X ray right shoulder-abnormal widening of AC joint concerning for grade 12 injury. Advanced degenerative changes, osteopenia, pelvic x-rayno fractures, CT headno acute abnormalities, chest x-rayno acute abnormalities, CT abdomen/pelvisno acute intra-abdominal pathology, mild congestive changes in lung bases, possible small airway disease at lung bases. (4) Insulin dependent diabetes mellitus: A1c of 6.9 in Sep 2018. Ordered new a1c -Hold home agents -Basal/bolus insulin while in-patient -BSG AC HS, Q6H while NPO (5) CAD (coronary artery disease): Stable, no chest pain -Continue Imdur, carvedilol, aspirin, statin (6) Hypertension: Normotensive. Continue home amlodipine, carvedilol, hydralazine (7) CKD (chronic kidney disease), stage III: Cr of 1.76 (baseline 1.6-1.8) -Continue monitoring with daily BMP (8) Mood disorder: Continue Zoloft, Clonazepam HS (9) GERD (gastroesophageal reflux disease): (10) HLD (hyperlipidemia): Continue statin DVT Ppx: SQ heparin Code status: FULL PCP: [facility] Dispo: PT/OT ordered Patient lives with sisters and says at baseline she walks short distances. But doesnt take a shower, but a sponge bath and at night has a bedside commode. Hesitant about going to the rehab but now would want to go Ok to to discharge to [facility] today Subjective Patient is complaining of pain in her neck. Denies any numbness, tingling, weakness in extremities. Denies any pain in the back. Denies any dizziness, headache, nausea, vomiting. She is requiring maximum assistance currently. Physical Exam Physical Exam: General Appearance: WD/WN, no apparent distress, morbidly obese wearing C-col lar Neck: C collar + Respiratory/Chest: Lungs clear to auscultation. No wheezes, rales or rhonchi. No respiratory distress or accessory muscle use Cardiovascular: regular rate, rhythm, no murmur, normal peripheral pulses Abdomen/GI: normal bowel sounds, soft, non-tender to palpation Neurologic/Psych: alert, normal mood/affect, oriented x 3, CN grossly intact. Able to move all 4 extremities Results & Data Vital Signs (Past 12 Hours) Vital Signs Temp Pulse Pulse Resp BP BP Pulse Ox 02/16/19 07:04 37.3 C 63 16 161/70 H 100 02/16/19 03:25 37.2 C 60 14 151/64 H 98 02/15/19 23:49 37.6 C H 61 14 129/67 95 (1) Teardrop fracture of cervical vertebra Encounter type: initial encounter Qualified Code(s): S12.9XXA - Fracture of neck, unspecified, initial encounter (2) Closed Misael fracture Encounter type: initial encounter Qualified Code(s): S12.01XA - Stable burst fracture of first cervical vertebra, initial encounter for closed fracture
--- NOTE | 2019-02-16 11:47 | Discharge Summary ---
Date of Service February 16, 2019 Admission HPI Per Admitting Provider This is a 73-year-old female with a PMH of type 2 diabetes, CAD, HTN, nocturnal hypoxia morbid obesity and other medical problems listed below who presents with head and neck pain after a fall at home. Patient got up and had a normal morning where she got dressed and took her medications. States that she felt very tired due to busy day yesterday with doctors appointments. Was using bedside commode when she fell asleep and then fell forward, landing on her head and neck. Denies losing consciousness. Called to her sister, who came and helped patient sit upright and called EMS. Patient endorsing head and neck pain. Denies any lightheadedness, palpitations or chest pain preceding fall. No visual changes, confusion, chest pain, shortness of breath, nausea, vomiting, diarrhea, dysuria, numbness, paresthesias or weakness. Took all morning medications with exception of Lantus and Lasix. Principal Diagnosis 1. Fall 2. Closed fractures- C1, C4 secondary to fall Secondary diagnoses on discharge 1. Insulin-dependent diabetes mellitus 2. CAD 3. Hypertension 4. CKD stage III 5. Mood disorder 7. GERD 8. Hyperlipidemia 9. Obesity 10. Ambulatory dysfunction Discharge Exam General Appearance: WD/WN, no apparent distress, morbidly obese wearing C- collar Neck: C collar + Respiratory/Chest: Lungs clear to auscultation. No wheezes, rales or rhonchi. No respiratory distress or accessory muscle use Cardiovascular: regular rate, rhythm, no murmur, normal peripheral pulses Abdomen/GI: normal bowel sounds, soft, non-tender to palpation Neurologic/Psych: alert, normal mood/affect, oriented x 3, CN grossly intact. Able to move all 4 extremities Discharge Data Allergies Allergy/AdvReac Type Severity Reaction Status Date / Time metformin Allergy Intermediate causes Verified 02/14/19 11:34 kidney problems Bactrim Allergy Unknown "ITS BEEN Verified 01/23/18 23:34 SO LONG, I FORGET" loratadine Allergy Unknown MOUTH Verified 02/14/19 11:34 SWELLING sulfamethoxazole Allergy Unknown "ITS BEEN Verified 02/14/19 11:34 SO LONG, I FORGET" trimethoprim Allergy Unknown "ITS BEEN Verified 02/14/19 11:34 SO LONG, I FORGET" Sulfa (Sulfonamide AdvReac Unknown NAUSEA Verified 02/14/19 11:34 Antibiotics) HMG-CoA-R Inhibitors AdvReac Mild GI UPSET Uncoded 02/14/19 11:34 Consultations 02/14/19 12:28 ED Decision to Admit Stat 02/14/19 15:34 Consult Case Management - Discharge Planning Routine Consult Orthopedic Surgery Routine Ordered Studies 02/14/19 09:54 CT cervical spine wo con Stat CT head/brain wo con Stat 02/14/19 09:55 CT abd pelvis wo con Stat Hospital Course (1) Fall: (2) Closed Dionicio fracture: (3) Teardrop fracture of cervical vertebra: This is a 73-year-old female with a PMH of type 2 diabetes, CAD, HTN, nocturnal hypoxia morbid obesity and other medical problems listed below who presents with head and neck pain after a fall at home and was found to have a closed Dionicio fracture and a teardrop fracture of cervical vertebra. -S/P Fall from commode at home after falling asleep. Denies syncopal event. Had taken morning [place] and gabapentin. Possibly medication induced ? -Per ortho, no surgical intervention --> Maintain cervical collar all the time. Follow up with ortho in 3-4 weeks -Pain mx: Home medication: Percocet 10/650 mg PO BID scheduled. Newly started here: Oxycodone 5 mg q 6 hours PRN for pain- try to use only for moderate- severe pain. Discontinue IV Dilaudid -CT cervical spine - Acute mildly distracted 3 mm fracture of left lateral mass of C1, acute nondisplaced fracture of left lamina of C1, acute mildly displaced avulsion fracture of anterior inferior aspect of the C4 vertebral body. X ray right shoulder-abnormal widening of AC joint concerning for grade 12 injury. Advanced degenerative changes, osteopenia, pelvic x-rayno fractures, CT headno acute abnormalities, chest x-rayno acute abnormalities, CT abdomen/pelvisno acute intra-abdominal pathology, mild congestive changes in lung bases, possible small airway disease at lung bases. (4) Insulin dependent diabetes mellitus: A1c of 6.9 in Sep 2018. Ordered new a1c -Hold home agents -Basal/bolus insulin while in-patient -BSG AC HS, Q6H while NPO (5) CAD (coronary artery disease): Stable, no chest pain -Continue Imdur, carvedilol, aspirin, statin (6) Hypertension: Normotensive. Continue home amlodipine, carvedilol, hydralazine (7) CKD (chronic kidney disease), stage III: Cr of 1.76 (baseline 1.6-1.8) (8) Mood disorder: -Continue Zoloft, Clonazepam HS (9) GERD (gastroesophageal reflux disease): (10) HLD (hyperlipidemia): Continue statin AMBULATORY DYSFUNCTION Baseline: Does not shower, gets a sponge bath daily. At night uses a bedside commode. Does walk without assistance but minimal functional activity Sisters helps her out OBESITY LALY -Oxygen 2 L at night DVT Ppx: SQ heparin Code status: FULL PCP: Tomas Dispo: PT/OT done Initially was hesitant to go to rehab, now wants to go. Ok to to discharge to [facility] today Total Time Total Time Spent Total Time Spent (In Minutes): 35 minutes Discharge Plan Discharge Items Patient Disposition: Transfer Inpatient Rehab Fac Reason For Visit: CLOSED DIONICIO FX, TEARDROP FX CERVICAL VERTEBRA Discharge Diagnosis: 1. Fall 2. Cervical C1, C4 fractures Discharge Goals: Decrease discomfort Activity: Resume your previous activity Non-emergency contact: Primary Care Provider Call non-emergency contact if: your symptoms worsen Follow-up/Referrals: Angela Marin MD [Primary Care Provider] - Diet: Carb Consistent or DM2, Low Fat and Low Sodium (2gm) Addtl Provider Instructions: MEDICATION CHANGES: New medication- Oxycodone 5 mg q 6 hours as needed for moderate to severe pain. (Home med: Percocet 2 tabs BID scheduled as prior to admission). Would try to avoid oxycodone PRN if possible. Prescriptions: New oxycodone-acetaminophen [Percocet] 5-325 mg tablet 2 tab PO BID Qty: 20 RF: 0 oxycodone 5 mg Tablet 5 mg PO Q6 5 Days Qty: 20 RF: 0 Continued furosemide 40 mg tablet 40 mg PO QAM RF: 0 carvedilol 12.5 mg tablet 12.5 mg PO BID RF: 0 topiramate 25 mg tablet 25 mg PO BID RF: 0 terazosin 1 mg capsule 1 mg PO HS RF: 0 aspirin 81 mg Tablet,Delayed Release (Dr/Ec) 81 mg PO QAM RF: 0 isosorbide mononitrate 120 mg tablet extended release 24 hr 120 mg PO QAM RF: 0 amlodipine 10 mg tablet 10 mg PO QAM RF: 0 hydralazine 100 mg tablet 100 mg PO TID RF: 0 pantoprazole 40 mg tablet,delayed release (DR/EC) 40 mg PO QDD RF: 0 ranitidine HCl 150 mg tablet 150 mg PO BID RF: 0 nitroglycerin [Nitrostat] 0.4 mg Tablet, Sublingual 0.4 mg sublingual UD RF: 0 gabapentin 300 mg capsule 300 mg PO QDL RF: 0 gabapentin 300 mg capsule 600 mg PO BID RF: 0 estradiol 0.01 % (0.1 mg/gram) cream 0.01 % vaginal UD RF: 0 Lactobacillus acidophilus Capsule 2 cap PO TIDM RF: 0 fluticasone propionate 50 mcg/actuation spray,suspension 1 spray intranasal QAM RF: 0 sertraline 50 mg tablet 50 mg PO QAM RF: 0 insulin lispro [Humalog KwikPen Insulin] 100 unit/mL insulin pen 10 unit subcut AC RF: 0 rosuvastatin 40 mg tablet 40 mg PO HS RF: 0 fenofibrate nanocrystallized 145 mg tablet 145 mg PO HS RF: 0 Lantus Solostar U-100 Insulin 100 unit/mL (3 mL) insulin pen 20 unit subcut BID RF: 0 sennosides-docusate sodium [Senokot-S] 8.6-50 mg Tablet 2 tab PO HS PRN (Reason: Constipation) RF: 0 cholecalciferol (vitamin D3) [Vitamin D3] 1,000 unit Capsule 1,000 unit PO DAILY RF: 0 clonidine HCl 0.2 mg Tablet 0.2 mg PO BID RF: 0 clonazepam 1 mg tablet 1 mg PO HS 10 Days Qty: 10 RF: 0 Discontinued hydrocodone-acetaminophen 5-325 mg tablet 2 tab PO BID RF: 0 Stand-Alone Forms: [facility] Discharge Orders: Discharge Order (Routine); Ordered 02/16/19 Ordered By: Amie Lewis Skilled Items Patient informed of condition?: Yes DNR: No Discharge Level of Care: Acute rehab Communicable Disease: No Discharge Prognosis: Stable Admission Data Admit Date/Time: 02/14/19 13:46 Attending Provider: Amie Lewis Admit Provider: Maye Ackerman Primary Care Provider: Angela Marin Other Providers: Maye Ackerman ; Naresh Kinney,Roma H. Service: Medical Other Pending Studies at Discharge: No
== END 2019-02-16 15:40 | DRG 552 ==
LOC: ED 09:44 → SUATTDRO 13:46 → 3E 13:46

== ENCOUNTER 2020-08-16 00:56 | Inpatient (IN) ==
--- NOTE | 2020-08-16 01:37 | Emergency Department Note ---
History of Present Illness General Chief complaint: Altered Mental Status Stated complaint: ALTERED MENTAL STATUS Time Seen by Provider: 08/16/20 01:13 Source: patient, EMS and RN notes reviewed Mode of arrival: EMS Limitations: altered mental status History of Present Illness Provider complaint: Altered mental status Onset (ago): unknown This is a 75-year-old female who presents from home via EMS after family called 911 due to concern for altered mental status. Patient denies any pain, trouble breathing, nausea, or recent sick contact. Patient knows her name and that she is in the emergency room, however does not know the date and cannot provide any additional history. Patient cannot tell me her medications or why she takes them. There is no family to provide any additional history. Per EMS family could not provide any additional history other than she was not acting appropr iately. Pt seen during a time of high acuity and national emergency pandemic while wearing PPE. Home Medications Medication Instructions Recorded Confirmed Type Lantus Solostar U-100 Insulin 20 unit SUBCUT BID 02/14/19 08/16/20 History amlodipine 10 mg PO QAM 02/14/19 08/16/20 History aspirin 81 mg PO QAM 02/14/19 08/16/20 History carvedilol 12.5 mg PO BID 02/14/19 08/16/20 History cholecalciferol (vitamin D3) 1,000 unit PO DAILY 02/14/19 08/16/20 History [Vitamin D3] fluticasone propionate 2 spray INTRANASAL QAM 02/14/19 08/16/20 History gabapentin 300 mg PO TID 02/14/19 08/16/20 History hydralazine 100 mg PO TID 02/14/19 08/16/20 History insulin lispro [Humalog KwikPen 10 unit SUBCUT TIDM 02/14/19 08/16/20 History Insulin] nitroglycerin [Nitrostat] 0.4 mg SUBLINGUAL DIRECTED PRN 02/14/19 08/16/20 History pantoprazole 40 mg PO QAM 02/14/19 08/16/20 History rosuvastatin 40 mg PO HS 02/14/19 08/16/20 History sertraline 50 mg PO QAM 02/14/19 08/16/20 History terazosin 1 mg PO HS 02/14/19 08/16/20 History topiramate 25 mg PO BID 02/14/19 08/16/20 History clonazepam 1 mg PO HS 03/02/19 08/16/20 History cyanocobalamin (vitamin B-12) 1,000 mcg PO QAM 04/23/19 08/16/20 History [Vitamin B-12] isosorbide mononitrate 120 mg PO QAM 04/23/19 08/16/20 History oxycodone-acetaminophen [Percocet] 1 tab PO TID 04/23/19 08/16/20 History polyethylene glycol 3350 [Miralax] 17 g PO QAM 04/23/19 08/16/20 History baclofen 10 mg PO UD 08/16/20 08/16/20 History diclofenac sodium 1 ea TOPICAL UD 08/16/20 08/16/20 History famotidine 20 mg PO DAILY 08/16/20 08/16/20 History furosemide 40 mg PO QAM 08/16/20 08/16/20 History ondansetron HCl 8 mg PO TID PRN 08/16/20 08/16/20 History Allergies Allergy/AdvReac Type Severity Reaction Status Date / Time metformin Allergy Intermediate causes Verified 04/23/19 22:26 kidney problems Bactrim Allergy Unknown "ITS BEEN Verified 01/23/18 23:34 SO LONG, I FORGET" loratadine Allergy Unknown MOUTH Verified 04/23/19 22:26 SWELLING sulfamethoxazole Allergy Unknown "ITS BEEN Verified 04/23/19 22:26 SO LONG, I FORGET" trimethoprim Allergy Unknown "ITS BEEN Verified 04/23/19 22:26 SO LONG, I FORGET" Sulfa (Sulfonamide AdvReac Unknown NAUSEA Verified 04/23/19 22:26 Antibiotics) HMG-CoA-R Inhibitors AdvReac Mild GI UPSET Uncoded 04/23/19 22:26 Past Med/Surg History Medical History Adjustment disorder CAD (coronary artery disease) CHF (congestive heart failure) CKD (chronic kidney disease), stage III GERD (gastroesophageal reflux disease) HLD (hyperlipidemia) Hypertension Hyponatremia IBS (irritable bowel syndrome) Insulin dependent diabetes mellitus Morbid obesity Paroxysmal A-fib Surgical History H/O hernia repair H/O: H/O: hysterectomy S/P cholecystectomy Family History Other No pertinent family history Social History Second Hand Exposure: No; Hx Alcohol Use: No Hx Substance Use: No Preferred Language: Nepalese Communication Ability: Impaired Communication Ability Comment: patient with altered mental status at this time Visual Impairment: No Limitations 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 and A total of 10 systems reviewed and were otherwise negative Physical Exam Vital Signs Vital Signs - 24 hr 08/16/20 01:08 08/16/20 01:17 08/16/20 01:40 Temperature 36.5 C Temperature Source Oral Pulse Rate 63 Pulse Rate [Apical] Respiratory Rate 18 18 Respiratory Effort / Characteristics Non-Labored Blood Pressure 154/58 H Blood Pressure [Left Arm] Blood Pressure Mean 90 Blood Pressure Mean [Left Arm] Pulse Oximetry 97 Oxygen Delivery Method Room Air Room Air Room Air Sepsis Recent Fever Within 48 Hours No Sepsis New/Unexplained Change in Mental Status Yes Sepsis Action Taken by Nursing No Action Required 08/16/20 02:30 Temperature Temperature Source Pulse Rate Pulse Rate [Apical] 60 Respiratory Rate 20 Respiratory Effort / Characteristics Blood Pressure Blood Pressure [Left Arm] 185/82 H Blood Pressure Mean Blood Pressure Mean [Left Arm] 116 Pulse Oximetry 95 Oxygen Delivery Method Room Air Sepsis Recent Fever Within 48 Hours Sepsis New/Unexplained Change in Mental Status Sepsis Action Taken by Nursing GENERAL: alert, well appearing, well nourished, no distress, non-toxic, obese EYE EXAM: normal conjunctiva, PERRL and EOM's grossly intact OROPHARYNX: no exudate, no erythema, lips, buccal mucosa, and tongue normal and mucous membranes are moist NECK: supple, no nuchal rigidity, no adenopathy, non-tender LUNGS: Clear to auscultation. Normal chest wall mechanics, no w/r/r HEART: no murmurs, S1 normal and S2 normal ABDOMEN: abdomen soft, non-tender, normo-active bowel sounds, no masses, no rebound or guarding. BACK: Back is symmetrical on inspection and there is no deformity, no midline tenderness, no CVA tenderness. SKIN: no rashes and no bruising UPPER EXTREMITIES: upper extremities are grossly normal. FROM, nml pulses b/l. LOWER EXTREMITIES: 1+ pitting edema. FROM, nml pulses b/l. Mild chronic appearing erythema noted to bilateral pretibial region. No vesicles, no bullae, no acute appearing rash, no increased warmth. NEURO EXAM: Patient awake, knows name and location, confused to date and time, does not know why she is here, can follow simple commands, cranial nerves II-XII grossly intact, normal speech, no gross weakness of arms, no gross weakness of legs. Gross sensation intact. Course Course 0348: Called patient family and spoke with Jaz. Patient does live with family. They state they just noticed this evening that patient seemed confused. She cannot recall exactly what time they noticed this. They states she seemed in her usual state of health earlier today. They deny any recent illness or m edication change. They states she did have a normal appetite today. They deny any sick contacts at home or other known exposure. Administered Medications Amlodipine Besylate (Amlodipine Besylate 5 Mg Tab) 10 mg PO [facility] Stop: 09/16/20 08:59 Last Admin: 08/17/20 08:21 Dose: 10 mg Documented by: [id number] Aspirin (Aspirin 81 Mg Ectab) 81 mg PO [facility] Stop: 09/15/20 09:59 Last Admin: 08/17/20 08:20 Dose: 81 mg Documented by: [id number] Admin: 08/16/20 10:52 Dose: 81 mg Documented by: [id number] Carvedilol (Carvedilol 12.5 Mg Tab) 12.5 mg PO BID [facility] Stop: 09/15/20 09:59 Last Admin: 08/17/20 20:15 Dose: 12.5 mg Documented by: [id number] Admin: 08/17/20 08:20 Dose: 12.5 mg Documented by: [id number] Admin: 08/16/20 21:01 Dose: 12.5 mg Documented by: [id number] Admin: 08/16/20 10:52 Dose: 12.5 mg Documented by: [id number] Cyanocobalamin (Cyanocobalamin 500 Mcg Tablet (Vitamin B-12)) 1,000 mcg PO [facility] Stop: 09/15/20 09:59 Last Admin: 08/17/20 08:20 Dose: 1,000 mcg Documented by: [id number] Admin: 08/16/20 10:53 Dose: Not Given Documented by: [id number] Famotidine (Famotidine 20 Mg Tab) 20 mg PO DAILY [facility] Stop: 09/15/20 09:59 Last Admin: 08/17/20 08:20 Dose: 20 mg Documented by: [id number] Admin: 08/16/20 10:51 Dose: 20 mg Documented by: [id number] Fluticasone Propionate (Fluticasone Propionate Na Spr 16 Gm Btl) 2 sprays NA QAM [facility] Stop: 09/15/20 09:59 Last Admin: 08/17/20 08:21 Dose: 2 sprays Documented by: [id number] Admin: 08/16/20 10:53 Dose: Not Given Documented by: [id number] Heparin Sodium (Porcine) (Heparin Sod 5,000 Unit/0.5 Ml Vial) 5,000 units SQ Q8 [facility] Stop: 09/15/20 13:59 Last Admin: 08/17/20 20:15 Dose: 5,000 units Documented by: [id number] Admin: 08/17/20 14:55 Dose: 5,000 units Documented by: [id number] Admin: 08/17/20 05:04 Dose: 5,000 units Documented by: [id number] Admin: 08/16/20 21:01 Dose: 5,000 units Documented by: [id number] Admin: 08/16/20 13:54 Dose: 5,000 units Documented by: [id number] Hydralazine HCl (Hydralazine Tab 50 Mg Tab) 100 mg PO TID [facility] Stop: 09/15/20 09:59 Last Admin: 08/17/20 20:16 Dose: 100 mg Documented by: [id number] Admin: 08/17/20 14:54 Dose: 100 mg Documented by: [id number] Admin: 08/17/20 08:20 Dose: 100 mg Documented by: [id number] Admin: 08/16/20 21:01 Dose: 100 mg Documented by: [id number] Admin: 08/16/20 13:55 Dose: 100 mg Documented by: [id number] Admin: 08/16/20 10:52 Dose: 100 mg Documented by: [id number] Piperacillin Sod/Tazobactam (Sod 3.375 gm/ Dextrose) 115 mls @ 28.75 mls/hr IV Q8H [facility]; Protocol Stop: 08/26/20 11:59 Last Admin: 08/17/20 20:14 Dose: 28.8 mls/hr Documented by: [id number] Infusion: 08/17/20 15:23 Dose: 0 mls/hr Documented by: [id number] Admin: 08/17/20 11:20 Dose: 28.8 mls/hr Documented by: [id number] Infusion: 08/17/20 08:22 Dose: 0 mls/hr Documented by: [id number] Admin: 08/17/20 03:49 Dose: 28.8 mls/hr Documented by: [id number] Infusion: 08/17/20 00:25 Dose: 0 mls/hr Documented by: [id number] Admin: 08/16/20 20:18 Dose: 28.8 mls/hr Documented by: [id number] Infusion: 08/16/20 16:31 Dose: 0 mls/hr Documented by: [id number] Admin: 08/16/20 12:22 Dose: 28.8 mls/hr Documented by: [id number] Insulin Aspart (Insulin Aspart 100 Units/Ml 3 Ml Pen) 0 units SC ACHS [facility] Stop: 09/15/20 09:59 Last Admin: 08/17/20 20:41 Dose: Not Given Documented by: [id number] Cosigned by: [id number] Admin: 08/17/20 17:16 Dose: Not Given Documented by: [id number] Cosigned by: [id number] Admin: 08/17/20 12:03 Dose: 1 units Documented by: [id number] Cosigned by: [id number] Admin: 08/17/20 08:22 Dose: Not Given Documented by: [id number] Cosigned by: [id number] Admin: 08/16/20 20:53 Dose: Not Given Documented by: [id number] Cosigned by: [id number] Admin: 08/16/20 17:27 Dose: Not Given Documented by: [id number] Cosigned by: [id number] Admin: 08/16/20 12:23 Dose: Not Given Documented by: [id number] Cosigned by: [id number] Admin: 08/16/20 10:57 Dose: Not Given Documented by: [id number] Cosigned by: [id number] Insulin Glargine (Insulin Glargine Solostar 100 Units/Ml 3 Ml Pen) 5 units SQ BID [facility] Stop: 09/15/20 09:59 Last Admin: 08/17/20 20:41 Dose: 5 units Documented by: [id number] Cosigned by: [id number] Admin: 08/17/20 08:21 Dose: 5 units Documented by: [id number] Cosigned by: [id number] Admin: 08/16/20 20:58 Dose: 5 units Documented by: [id number] Cosigned by: [id number] Admin: 08/16/20 10:58 Dose: 5 units Documented by: [id number] Cosigned by: [id number] Isosorbide Mononitrate (Isosorbide [place] Extended Rel 60 Mg Tabcr) [facility] [place]: 09/15/20 09:59 Last Admin: 08/17/20 08:21 Dose: 120 mg Documented by: [id number] Admin: 08/16/20 10:51 Dose: 120 mg Documented by: [id number] Miconazole Nitrate (Miconazole Nitrate Powder 43 Gm) 1 appln EXT PRN PRN PRN Reason: Affected Skin Folds Stop: 09/15/20 16:28 Last Admin: 08/16/20 18:25 Dose: 1 appln Documented by: [id number] Pantoprazole Sodium (Pantoprazole 40 Mg Tab) [facility] [place]: 09/15/20 09:59 Last Admin: 08/17/20 08:20 Dose: 40 mg Documented by: [id number] Admin: 08/16/20 10:53 Dose: 40 mg Documented by: [id number] Rosuvastatin Calcium (Rosuvastatin Calcium 20 Mg Tab) 40 mg PO [facility] Stop: 09/15/20 20:59 Last Admin: 08/17/20 20:16 Dose: 40 mg Documented by: [id number] Admin: 08/16/20 21:00 Dose: 40 mg Documented by: [id number] Terazosin HCl (Terazosin Hcl 1 Mg Cap) 1 mg PO [facility] Stop: 09/15/20 20:59 Last Admin: 08/17/20 20:15 Dose: 1 mg Documented by: [id number] Admin: 08/16/20 21:00 Dose: 1 mg Documented by: [id number] Vitamin D (Cholecalciferol 1,000 Units 25 Mcg Tab) 1,000 units PO DAILY [facility] Stop: 09/15/20 09:59 Last Admin: 08/17/20 08:21 Dose: 1,000 units Documented by: [id number] Admin: 08/16/20 10:53 Dose: Not Given Documented by: [id number] Discontinued Medications Amlodipine Besylate (Amlodipine Besylate 5 Mg Tab) 10 mg PO NOW ONE Stop: 08/16/20 07:14 Last Admin: 08/16/20 08:37 Dose: 10 mg Documented by: [id number] Sodium Chloride (Nss 1000ml) 1,000 mls @ 150 mls/hr IV .Q6H40M [facility] Stop: 09/15/20 01:44 Last Infusion: 08/16/20 11:04 Dose: 0 mls/hr Documented by: [id number] Admin: 08/16/20 03:15 Dose: 150 mls/hr Documented by: [id number] Piperacillin Sod/Tazobactam Sod (Zosyn) 4.5 gm in 120 mls @ 240 mls/hr IV NOW STA Stop: 08/16/20 06:14 Last Infusion: 08/16/20 08:31 Dose: 0 mls/hr Documented by: [id number] Admin: 08/16/20 06:33 Dose: 240 mls/hr Documented by: [id number] Influenza Virus Vaccine (Influenza Vaccine High Dose 65+ 0.7 Ml Syr) 0.7 ml IM .ONCE ONE Stop: 08/16/20 12:09 Last Admin: 08/16/20 14:15 Dose: Not Given Documented by: [id number] Miscellaneous (Patient's Height And/Or Weight Needed) 1 ea N/A Q2H [facility] Stop: 08/16/20 19:46 Last Admin: 08/16/20 13:55 Dose: 1 ea Documented by: [id number] Admin: 08/16/20 10:59 Dose: 1 ea Documented by: [id number] Admin: 08/16/20 10:59 Dose: 1 ea Documented by: [id number] Potassium Chloride (Potassium Chloride Crtab 20 Meq Tabcr) 40 meq PO NOW ONE Stop: 08/17/20 09:01 Last Admin: 08/17/20 10:06 Dose: 40 meq Documented by: [id number] Medical Decision Making Differential Diagnosis Differential diagnoses includes but is not limited to toxic, metabolic, infectious, traumatic, cardiac, neurologic, hematologic, psychiatric and inflammatory etiologies. Medical Records Attestation: I reviewed the patient's medical records. Home Medications Current Medication List: was personally reviewed by me Laboratory Data Attestation: I reviewed the patient's lab results. Result diagrams: 08/17/20 05:57 08/17/20 05:57 Lab Results 08/16/20 08/16/20 08/16/20 Range/Units 01:25 02:39 02:39 WBC 9.20 (4.8-10.8) K/uL RBC 3.96 L (4.2-5.4) M/uL Hgb 11.7 L (12.0-16.0) g/dL Hct 35.6 L (37-47) % MCV 89.9 (80-100) fL MCH 29.5 (25-34) pg MCHC 32.9 (32-36) g/dL RDW Std Deviation 46.7 H (36.4-46.3) fL RDW Coeff of Isabel 14.2 (11.5-14.5) % Plt Count 180 (130-400) K/uL MPV 10.1 (7.4-10.4) fL Immature Gran % (Auto) 0.5 % Neut % (Auto) 60.4 % Lymph % (Auto) 27.5 % [place] % (Auto) 9.3 % Eos % (Auto) 2.1 % Baso % (Auto) 0.2 % Neut # (Auto) 5.55 (1.4-6.5) K/uL Lymph # (Auto) 2.53 (1.2-3.4) K/uL [place] # (Auto) 0.86 H (0.11-0.59) K/uL Eos # (Auto) 0.19 (0-0.5) K/uL Baso # (Auto) 0.02 (0-0.2) K/uL Immature Gran # (Auto) 0.05 H (0.00-0.02) K/uL PT 10.6 (9.0-12.0) Seconds INR 1.0 (0.9-1.1) APTT 25.6 (21.0-31.0) Seconds PTT Ratio 0.9 Sodium (136-145) mmol/L Potassium (3.5-5.1) mmol/L Chloride (98-107) mmol/L Carbon Dioxide (21-32) mmol/L Anion Gap (3-11) BUN (7-18) mg/dl Creatinine (0.6-1.2) mg/dl Est Cr Clr Drug Dosing Est GFR ( Amer) Est GFR (Non-Af Amer) BUN/Creatinine Ratio (10-20) Glucose (70-99) mg/dl Lactate (0.4-2.0) mmol/L Calcium (8.5-10.1) mg/dl Magnesium (1.8-2.4) mg/dl Total Bilirubin (0.2-1) mg/dl AST (15-37) U/L ALT (12-78) U/L Alkaline Phosphatase (45-117) U/L Troponin I (0-0.045) ng/ml Total Protein (6.4-8.2) gm/dl Albumin (3.4-5.0) gm/dl Globulin (2.5-4.0) gm/dl Albumin/Globulin Ratio (0.9-2) Procalcitonin (0-0.5) ng/ml Urine Color Yellow Urine Appearance Clear (Clear) Urine pH 7.5 (4.5-7.5) Ur Specific [place] 1.006 (1.000-1.030) Urine Protein Negative (Negative) Urine Glucose (UA) Negative (Negative) Urine Ketones Negative (Negative) Urine Blood Negative (Negative) Urine Nitrite Negative (Negative) Urine Bilirubin Negative (Negative) Urine Urobilinogen Negative (Negative) Ur Leukocyte Esterase 1+ H (Negative) Urine WBC (Auto) 1-5 (0-5) /hpf Urine RBC (Auto) 0-4 (0-4) /hpf U Hyaline Cast (Auto) 0 (0-5) /lpf U Epithel Cells (Auto) 20-30 H (0-5) /lpf Urine Bacteria (Auto) 2+ H (Negative) SARS-CoV-2 Ag (Rapid) (Negative) 08/16/20 08/16/20 08/16/20 Range/Units 02:39 02:39 02:39 WBC (4.8-10.8) K/uL RBC (4.2-5.4) M/uL Hgb (12.0-16.0) g/dL Hct (37-47) % MCV (80-100) fL MCH (25-34) pg MCHC (32-36) g/dL RDW Std Deviation (36.4-46.3) fL RDW Coeff of Isabel (11.5-14.5) % Plt Count (130-400) K/uL MPV (7.4-10.4) fL Immature Gran % (Auto) % Neut % (Auto) % Lymph % (Auto) % [place] % (Auto) % Eos % (Auto) % Baso % (Auto) % Neut # (Auto) (1.4-6.5) K/uL Lymph # (Auto) (1.2-3.4) K/uL [place] # (Auto) (0.11-0.59) K/uL Eos # (Auto) (0-0.5) K/uL Baso # (Auto) (0-0.2) K/uL Immature Gran # (Auto) (0.00-0.02) K/uL PT (9.0-12.0) Seconds INR (0.9-1.1) APTT (21.0-31.0) Seconds PTT Ratio Sodium 140 (136-145) mmol/L Potassium 3.6 (3.5-5.1) mmol/L Chloride 104 (98-107) mmol/L Carbon Dioxide 30 (21-32) mmol/L Anion Gap 6.0 (3-11) BUN 21 H (7-18) mg/dl Creatinine 1.57 H (0.6-1.2) mg/dl Est Cr Clr Drug Dosing Not Reportable Est GFR ( Amer) 37.0 Est GFR (Non-Af Amer) 31.9 BUN/Creatinine Ratio 13.1 (10-20) Glucose 123 H (70-99) mg/dl Lactate 1.3 (0.4-2.0) mmol/L Calcium 8.6 (8.5-10.1) mg/dl Magnesium 2.5 H (1.8-2.4) mg/dl Total Bilirubin 0.4 (0.2-1) mg/dl AST 28 (15-37) U/L ALT 24 (12-78) U/L Alkaline Phosphatase 92 (45-117) U/L Troponin I 0.021 (0-0.045) ng/ml Total Protein 7.6 (6.4-8.2) gm/dl Albumin 3.0 L (3.4-5.0) gm/dl Globulin 4.6 H (2.5-4.0) gm/dl Albumin/Globulin Ratio 0.7 L (0.9-2) Procalcitonin < 0.05 (0-0.5) ng/ml Urine Color Urine Appearance (Clear) Urine pH (4.5-7.5) Ur Specific [place] (1.000-1.030) Urine Protein (Negative) Urine Glucose (UA) (Negative) Urine Ketones (Negative) Urine Blood (Negative) Urine Nitrite (Negative) Urine Bilirubin (Negative) Urine Urobilinogen (Negative) Ur Leukocyte Esterase (Negative) Urine WBC (Auto) (0-5) /hpf Urine RBC (Auto) (0-4) /hpf U Hyaline Cast (Auto) (0-5) /lpf U Epithel Cells (Auto) (0-5) /lpf Urine Bacteria (Auto) (Negative) SARS-CoV-2 Ag (Rapid) (Negative) 08/16/20 Range/Units 04:39 WBC (4.8-10.8) K/uL RBC (4.2-5.4) M/uL Hgb (12.0-16.0) g/dL Hct (37-47) % MCV (80-100) fL MCH (25-34) pg MCHC (32-36) g/dL RDW Std Deviation (36.4-46.3) fL RDW Coeff of Isabel (11.5-14.5) % Plt Count (130-400) K/uL MPV (7.4-10.4) fL Immature Gran % (Auto) % Neut % (Auto) % Lymph % (Auto) % [place] % (Auto) % Eos % (Auto) % Baso % (Auto) % Neut # (Auto) (1.4-6.5) K/uL Lymph # (Auto) (1.2-3.4) K/uL [place] # (Auto) (0.11-0.59) K/uL Eos # (Auto) (0-0.5) K/uL Baso # (Auto) (0-0.2) K/uL Immature Gran # (Auto) (0.00-0.02) K/uL PT (9.0-12.0) Seconds INR (0.9-1.1) APTT (21.0-31.0) Seconds PTT Ratio Sodium (136-145) mmol/L Potassium (3.5-5.1) mmol/L Chloride (98-107) mmol/L Carbon Dioxide (21-32) mmol/L Anion Gap (3-11) BUN (7-18) mg/dl Creatinine (0.6-1.2) mg/dl Est Cr Clr Drug Dosing Est GFR ( Amer) Est GFR (Non-Af Amer) BUN/Creatinine Ratio (10-20) Glucose (70-99) mg/dl Lactate (0.4-2.0) mmol/L Calcium (8.5-10.1) mg/dl Magnesium (1.8-2.4) mg/dl Total Bilirubin (0.2-1) mg/dl AST (15-37) U/L ALT (12-78) U/L Alkaline Phosphatase (45-117) U/L Troponin I (0-0.045) ng/ml Total Protein (6.4-8.2) gm/dl Albumin (3.4-5.0) gm/dl Globulin (2.5-4.0) gm/dl Albumin/Globulin Ratio (0.9-2) Procalcitonin (0-0.5) ng/ml Urine Color Urine Appearance (Clear) Urine pH (4.5-7.5) Ur Specific [place] (1.000-1.030) Urine Protein (Negative) Urine Glucose (UA) (Negative) Urine Ketones (Negative) Urine Blood (Negative) Urine Nitrite (Negative) Urine Bilirubin (Negative) Urine Urobilinogen (Negative) Ur Leukocyte Esterase (Negative) Urine WBC (Auto) (0-5) /hpf Urine RBC (Auto) (0-4) /hpf U Hyaline Cast (Auto) (0-5) /lpf U Epithel Cells (Auto) (0-5) /lpf Urine Bacteria (Auto) (Negative) SARS-CoV-2 Ag (Rapid) Negative (Negative) Imaging Data My Impression: X-ray: I interpreted the following studies. Chest: A single view study of the chest was reviewed and was negative for focal infiltrate, effusion, pulmonary edema, or wide mediastinum. Cardiomegaly is noted. No change compared to prior. Radiologist's Impression: CT head: No acute intracranial hemorrhage, edema or mass. No extra-axial fluid collection. No calvarial fracture. Orbits, paranasal sinuses and mastoids are unremarkable. Radiologist: Jayson Galindo MD ECG Data Attestation: I personally reviewed and interpreted this ECG as follows: Indication: + altered mental status Rate (beats per minute): 63 Rhythm: + normal sinus ECG Intervals/blocks: + Normal QRS and + Normal QT ECG [place]: + Normal ECG ST segments: + Normal ST segments Additional Comments: Baseline artifact noted MDM Narrative Elderly female who lives with family who presents due to acute ams per family report. Family unable to provide additional history and deny noting any other specific changes. Pt here confused to date/time/place. No apparent distress. CT head reassuring. Labs reassuring despite mild elevation to creatinine. UA clean catch, suboptimal specimen. Possible evolving UTI, however cath specimen should be repeated to confirm. No other evidence of bacteremia/sepsis. Possible early pulmonary edema on cxr, however pt and family reported LE edema is chronic and no apparent increased WOB. VS stable. No focal lateralizing findings noted to suggest CVA although pt does have risk factors for cva, however family could not provide clear time of onset. Family denies hx of dementia. Given unclear etiology and need further additional evaluation, case discussed with hospitalist. COVID negative. Pt hypertensive in the ER but has hx of htn. An order was placed for continuous cardiac monitoring. The monitor shows a rate of _68_ with _normal sinus_ rhythm. Impression & Plan Altered mental status, Morbid obesity, Hypertension, CKD (chronic kidney disease) Discharge Plan Visit Data Chief Complaint: Altered Mental Status Stated Complaint: ALTERED MENTAL STATUS ED Provider: Imelda Fields Discharge Problem: Altered mental status, Morbid obesity, Hypertension, CKD (chronic kidney disease) Patient Disposition: Admitted As Inpatient Discharge Instructions Interventions: ED Discharge Assessment Last Done: 08/16/20 08:40 Discharge Problem: Altered mental status Qualifiers: Altered mental status type: unspecified Qualified Code(s): R41.82 - Altered mental status, unspecified Hypertension Qualifiers: Hypertension type: essential hypertension Qualified Code(s): I10 - Essential (primary) hypertension CKD (chronic kidney disease) Qualifiers: Chronic kidney disease stage: unspecified stage Qualified Code(s): N18.9 - Chronic kidney disease, unspecified
[2020-08-16] MEDS ORDERED: SODIUM CHLORIDE 0.9% 1000ML 1,000 ML IV SCH (01:45)
[2020-08-16 01:57] LABS: Appearance Urine Clear (Clear); Bacteria Urine Automated 2+ (Negative); Bilirubin Urine Negative (Negative); Blood Urine Negative (Negative); Cast Urine Automated 0 /lpf (0-5); Color Urine Yellow; Epithelial Cell Urine Auto 20-30 /lpf (0-5); Glucose Urine UA Negative (Negative); Ketones Urine Negative (Negative); Leukocyte Esterase Urine 1+ (Negative); Nitrite Urine Negative (Negative); Protein Urine Negative (Negative); RBC Urine Automated 0-4 /hpf (0-4); Specific Gravity Urine 1.006 (1.000-1.030); Urobilinogen Urine Negative (Negative); pH Urine 7.5 (4.5-7.5)
[2020-08-16 02:53] LABS: Basophils # (auto) 0.02 K/uL (0-0.2); Basophils % (auto) 0.2 %; Eosinophils # (auto) 0.19 K/uL (0-0.5); Eosinophils % (auto) 2.1 %; Hematocrit (blood only) 35.6 % (37-47); Hemoglobin 11.7 g/dL (12.0-16.0); Immature Granulocytes # (auto) 0.05 K/uL (0.00-0.02); Immature Granulocytes % (auto) 0.5 %; Lymphocytes # (auto) 2.53 K/uL (1.2-3.4); Lymphocytes % (auto) 27.5 %; Mean Corpuscular Hemoglobin 29.5 pg (25-34); Mean Corpuscular Hgb Conc 32.9 g/dL (32-36); Mean Corpuscular Volume 89.9 fL (80-100); Mean Platelet Volume 10.1 fL (7.4-10.4); Monocytes # (auto) 0.86 K/uL (0.11-0.59); Monocytes % (auto) 9.3 %; Neutrophils # (auto) 5.55 K/uL (1.4-6.5); Neutrophils % (auto) 60.4 %; Platelet Count 180 K/uL (130-400); RDW Coefficient of Variation 14.2 % (11.5-14.5); RDW Standard Deviation 46.7 fL (36.4-46.3); Red Blood Count 3.96 M/uL (4.2-5.4)
[2020-08-16 03:04] LABS: Partial Thromboplastin Ratio 0.9; Partial Thromboplastin Time 25.6 Seconds (21.0-31.0); Prothrombin Time 10.6 Seconds (9.0-12.0)
[2020-08-16 03:13] LABS: Alanine Aminotransferase 24 U/L (12-78); Aspartate Aminotransferase 28 U/L (15-37); BUN Creatinine Ratio 13.1 (10-20); Blood Urea Nitrogen 21 mg/dl (7-18); Calcium 8.6 mg/dl (8.5-10.1); Carbon Dioxide 30 mmol/L (21-32); Chloride 104 mmol/L (98-107); Est GFR (Non-African American) 31.9; Glucose 123 mg/dl (70-99); Magnesium 2.5 mg/dl (1.8-2.4); Potassium 3.6 mmol/L (3.5-5.1); Sodium 140 mmol/L (136-145)
[2020-08-16 03:18] LABS: Albumin Globulin Ratio 0.7 (0.9-2); Alkaline Phosphatase 92 U/L (45-117); Bilirubin,Total 0.4 mg/dl (0.2-1); Globulin 4.6 gm/dl (2.5-4.0); Total Protein 7.6 gm/dl (6.4-8.2); Troponin I 0.021 ng/ml (0-0.045)
[2020-08-16] MEDS ORDERED: PIPERACILL/TAZOBAC CONSULT ACTIVE PRN (05:35)
[2020-08-16] MEDS ORDERED: PIPERACILLIN/TAZOBACTAM 4.5 GM/120 ML BAG IV STA (05:45)
--- NOTE | 2020-08-16 06:03 | History & Physical Report ---
Date of Service August 16, 2020 Assessment & Plan (1) Encephalopathy acute: Multifactorial : Recurrent UTIs, no sepsis for now RTC Neuropsychotropic, narcotic medications chronic diastolic heart failure (EF of 60-65% TTE 2018), euvolemic hx CAD hypertension, slight elevated DM2, insulin-requiring, well-controlled as of recent outpatient hemoglobin A1c of 6.29 January 2020 CRI, creatinine better than baseline chronic anemia, hemoglobin at baseline Medical telemetry Follow urine cultures, Zosyn on the basis of microbiologic history (hx Enterococcus, gram-negative enteric organisms) Hold [id number] neuropsychotropic, narcotic medications for now until mentation back to baseline Basal insulin, ISS BG goal [id number], carb count coverage PT OT eval DVT prophylaxis. Heparin subcu Full code Patient sister requesting updates from providers. Ms. Jaz Paez, contact #[phone]. Text document was generated using Inxero recognition software. It may contain grammatical or spelling errors. Kindly contact undersigned for clarification of any documentation item in question. History of Present Illness Chief Complaint: I fine as per patient Altered mental status as per records Primary Care Provider: Dr. Bullock History obtained from patient, family, and records. Limited history from patient secondary to disorientation. Medical history significant for chronic diastolic heart failure (EF of 60-65% TTE 2018), CAD as per records, hypertension, DM2, insulin-requiring, CRI (baseline creatinine 1.7-2), chronic anemia (baseline hemoglobin of 10), recurrent UTIs, anxiety/mood disorder. Last confinement January 2019 for fall, closed cervical fracture. No operative intervention. Patient seen at PCPs office about 2 weeks ago for upset stomach, poor appetite. Outpatient Covid testing was negative. Patient complaining of chronic back pain. Yesterday patient noted to be confused. Patient denies chest pain, cough, S OB, abdominal pain, dysuria symptoms. I feel fine as per patient. Patient brought to the ER for evaluation. MEDICAL HISTORY: As above. SURGERIES: Hernia repair, , hysterectomy, cholecystectomy. FAMILY HISTORY: Heart disease. Whiteside's chorea PERSONAL AND SOCIAL HISTORY: Nonsmoker. No chronic intake of alcoholic beverages. Lives with sisters. Allergies Allergy/AdvReac Type Severity Reaction Status Date / Time metformin Allergy Intermediate causes Verified 04/23/19 22:26 kidney problems Bactrim Allergy Unknown "ITS BEEN Verified 01/23/18 23:34 SO LONG, I FORGET" loratadine Allergy Unknown MOUTH Verified 04/23/19 22:26 SWELLING sulfamethoxazole Allergy Unknown "ITS BEEN Verified 04/23/19 22:26 SO LONG, I FORGET" trimethoprim Allergy Unknown "ITS BEEN Verified 04/23/19 22:26 SO LONG, I FORGET" Sulfa (Sulfonamide AdvReac Unknown NAUSEA Verified 04/23/19 22:26 Antibiotics) HMG-CoA-R Inhibitors AdvReac Mild GI UPSET Uncoded 04/23/19 22:26 Home Medications Medication Instructions Recorded Confirmed Type Lantus Solostar U-100 Insulin 20 unit SUBCUT BID 02/14/19 08/16/20 History amlodipine 10 mg PO QAM 02/14/19 08/16/20 History aspirin 81 mg PO QAM 02/14/19 08/16/20 History carvedilol 12.5 mg PO BID 02/14/19 08/16/20 History cholecalciferol (vitamin D3) 1,000 unit PO DAILY 02/14/19 08/16/20 History [Vitamin D3] fluticasone propionate 2 spray INTRANASAL QAM 02/14/19 08/16/20 History gabapentin 300 mg PO TID 02/14/19 08/16/20 History hydralazine 100 mg PO TID 02/14/19 08/16/20 History insulin lispro [Humalog KwikPen 10 unit SUBCUT TIDM 02/14/19 08/16/20 History Insulin] nitroglycerin [Nitrostat] 0.4 mg SUBLINGUAL DIRECTED PRN 02/14/19 08/16/20 History pantoprazole 40 mg PO QAM 02/14/19 08/16/20 History rosuvastatin 40 mg PO HS 02/14/19 08/16/20 History sertraline 50 mg PO QAM 02/14/19 08/16/20 History terazosin 1 mg PO HS 02/14/19 08/16/20 History topiramate 25 mg PO BID 02/14/19 08/16/20 History clonazepam 1 mg PO HS 03/02/19 08/16/20 History cyanocobalamin (vitamin B-12) 1,000 mcg PO QAM 04/23/19 08/16/20 History [Vitamin B-12] isosorbide mononitrate 120 mg PO QAM 04/23/19 08/16/20 History oxycodone-acetaminophen [Percocet] 1 tab PO TID 04/23/19 08/16/20 History polyethylene glycol 3350 [Miralax] 17 g PO QAM 04/23/19 08/16/20 History baclofen 10 mg PO UD 08/16/20 08/16/20 History diclofenac sodium 1 ea TOPICAL UD 08/16/20 08/16/20 History famotidine 20 mg PO DAILY 08/16/20 08/16/20 History furosemide 40 mg PO QAM 08/16/20 08/16/20 History ondansetron HCl 8 mg PO TID PRN 08/16/20 08/16/20 History Past Med/Surg History Medical History Adjustment disorder CAD (coronary artery disease) CHF (congestive heart failure) CKD (chronic kidney disease), stage III GERD (gastroesophageal reflux disease) HLD (hyperlipidemia) Hypertension Hyponatremia IBS (irritable bowel syndrome) Insulin dependent diabetes mellitus Morbid obesity Paroxysmal A-fib Surgical History H/O hernia repair H/O: H/O: hysterectomy S/P cholecystectomy Family History Other No pertinent family history Social History Second Hand Exposure: No; Hx Alcohol Use: No Hx Substance Use: No Preferred Language: Faroese Communication Ability: Impaired Communication Ability Comment: patient with altered mental status at this time Visual Impairment: No Limitations [employer] Technical Officer Required: No Beliefs That Will Affect Care: None Current Living Situation: Family Feels Safe at Home: Yes Assistive Devices: Walker Review of Systems Review of Systems: Could not be reliably obtained Physical Exam Physical Exam: GENERAL: Comfortable, morbidly obese, disoriented, follows some commands, no respiratory distress SKIN: Pallor , warm HEENT: Pale palpebral conjunctivae, no ptosis, dry buccal mucosa NECK : Supple, short neck, no tenderness CHEST : Decreased breath sounds , no tenderness HEART : RRR, no obvious murmurs ABDOMEN: Some distention, nontender EXTREMITIES : Minimal LE swelling, no LE tenderness, some erythema RLE, no other conspicuous deformities noted NEUROLOGIC : Coherent, disoriented, no facial asymmetry, gait and stance not assessed Results & Data Results & Data ([facility]) Vital Signs (Past 12 Hours) Vital Signs Temp Pulse Pulse Resp BP BP Pulse Ox 08/16/20 04:37 69 15 131/57 L 98 08/16/20 04:32 18 97 08/16/20 04:31 68 28 H 99 08/16/20 04:30 67 20 97 08/16/20 04:02 71 15 92/66 L 100 08/16/20 04:00 73 19 94 08/16/20 03:31 61 18 98 08/16/20 03:30 60 17 113/40 L 98 08/16/20 03:11 66 11 L 124/100 99 08/16/20 03:08 98 08/16/20 02:31 67 15 08/16/20 02:30 65 60 20 185/82 H 185/82 H 95 08/16/20 02:01 54 L 14 98 08/16/20 02:00 54 L 17 163/63 H 99 08/16/20 01:40 18 08/16/20 01:30 66 19 147/67 H 99 08/16/20 01:14 62 18 154/58 H 97 08/16/20 01:08 36.5 C 63 18 154/58 H 97 08/16/20 01:05 65 19 99 08/16/20 01:03 66 16 155/132 H 98 Laboratory Results Laboratory Results WBC 9.20 K/uL (4.8-10.8) 08/16/20 02:39 RBC 3.96 M/uL (4.2-5.4) L 08/16/20 02:39 Hgb 11.7 g/dL (12.0-16.0) L 08/16/20 02:39 Hct 35.6 % (37-47) L 08/16/20 02:39 MCV 89.9 fL (80-100) 08/16/20 02:39 MCH 29.5 pg (25-34) 08/16/20 02:39 MCHC 32.9 g/dL (32-36) 08/16/20 02:39 RDW Std Deviation 46.7 fL (36.4-46.3) H 08/16/20 02:39 RDW Coeff of Isabel 14.2 % (11.5-14.5) 08/16/20 02:39 Plt Count 180 K/uL (130-400) 08/16/20 02:39 MPV 10.1 fL (7.4-10.4) 08/16/20 02:39 Immature Gran % (Auto) 0.5 % 08/16/20 02:39 Neut % (Auto) 60.4 % 08/16/20 02:39 Lymph % (Auto) 27.5 % 08/16/20 02:39 [place] % (Auto) 9.3 % 08/16/20 02:39 Eos % (Auto) 2.1 % 08/16/20 02:39 Baso % (Auto) 0.2 % 08/16/20 02:39 Neut # (Auto) 5.55 K/uL (1.4-6.5) 08/16/20 02:39 Lymph # (Auto) 2.53 K/uL (1.2-3.4) 08/16/20 02:39 [place] # (Auto) 0.86 K/uL (0.11-0.59) H 08/16/20 02:39 Eos # (Auto) 0.19 K/uL (0-0.5) 08/16/20 02:39 Baso # (Auto) 0.02 K/uL (0-0.2) 08/16/20 02:39 Immature Gran # (Auto) 0.05 K/uL (0.00-0.02) H 08/16/20 02:39 PT 10.6 Seconds (9.0-12.0) 08/16/20 02:39 INR 1.0 (0.9-1.1) 08/16/20 02:39 APTT 25.6 Seconds (21.0-31.0) 08/16/20 02:39 PTT Ratio 0.9 08/16/20 02:39 Sodium 140 mmol/L (136-145) 08/16/20 02:39 Potassium 3.6 mmol/L (3.5-5.1) 08/16/20 02:39 Chloride 104 mmol/L (98-107) 08/16/20 02:39 Carbon Dioxide 30 mmol/L (21-32) 08/16/20 02:39 Anion Gap 6.0 (3-11) 08/16/20 02:39 BUN 21 mg/dl (7-18) H 08/16/20 02:39 Creatinine 1.57 mg/dl (0.6-1.2) H 08/16/20 02:39 Est Cr Clr Drug Dosing Not Reportable 08/16/20 02:39 Est GFR ( Amer) 37.0 08/16/20 02:39 Est GFR (Non-Af Amer) 31.9 08/16/20 02:39 BUN/Creatinine Ratio 13.1 (10-20) 08/16/20 02:39 Glucose 123 mg/dl (70-99) H 08/16/20 02:39 Lactate 1.3 mmol/L (0.4-2.0) 08/16/20 02:39 Calcium 8.6 mg/dl (8.5-10.1) 08/16/20 02:39 Magnesium 2.5 mg/dl (1.8-2.4) H 08/16/20 02:39 Total Bilirubin 0.4 mg/dl (0.2-1) 08/16/20 02:39 AST 28 U/L (15-37) 08/16/20 02:39 ALT 24 U/L (12-78) 08/16/20 02:39 Alkaline Phosphatase 92 U/L (45-117) 08/16/20 02:39 Troponin I 0.021 ng/ml (0-0.045) 08/16/20 02:39 Total Protein 7.6 gm/dl (6.4-8.2) 08/16/20 02:39 Albumin 3.0 gm/dl (3.4-5.0) L 08/16/20 02:39 Globulin 4.6 gm/dl (2.5-4.0) H 08/16/20 02:39 Albumin/Globulin Ratio 0.7 (0.9-2) L 08/16/20 02:39 Procalcitonin < 0.05 ng/ml (0-0.5) 08/16/20 02:39 Urine Color Yellow 08/16/20 01:25 Urine Appearance Clear (Clear) 08/16/20 01:25 Urine pH 7.5 (4.5-7.5) 08/16/20 01:25 Ur Specific [place] 1.006 (1.000-1.030) 08/16/20 01:25 Urine Protein Negative (Negative) 08/16/20 01:25 Urine Glucose (UA) Negative (Negative) 08/16/20 01:25 Urine Ketones Negative (Negative) 08/16/20 01:25 Urine Blood Negative (Negative) 08/16/20 01:25 Urine Nitrite Negative (Negative) 08/16/20 01:25 Urine Bilirubin Negative (Negative) 08/16/20 01:25 Urine Urobilinogen Negative (Negative) 08/16/20 01:25 Ur Leukocyte Esterase 1+ (Negative) H 08/16/20 01:25 Urine WBC (Auto) 1-5 /hpf (0-5) 08/16/20 01:25 Urine RBC (Auto) 0-4 /hpf (0-4) 08/16/20 01:25 U Hyaline Cast (Auto) 0 /lpf (0-5) 08/16/20 01:25 U Epithel Cells (Auto) 20-30 /lpf (0-5) H 08/16/20 01:25 Urine Bacteria (Auto) 2+ (Negative) H 08/16/20 01:25 SARS-CoV-2 Ag (Rapid) Negative (Negative) 08/16/20 04:[address] head initial read: No acute intracranial hemorrhage, edema, or mass-effect. Chest x-ray as per my interpretation atelectasis EKG as per my interpretation : Rate 65, NSR, normal axis, inferior infarct, T wave abnormalities inferior leads
--- NOTE | 2020-08-16 07:11 | CT Scan Report ---
HEAD CT NONCONTRAST CT DOSE: 548.23 mGy.cm HISTORY: Altered mental status. TECHNIQUE: Multiaxial CT images of the head were performed without the use of intravenous contrast. A utomated exposure control was utilized for this study. A dose lowering technique was utilized adheri ng to the principles of ALARA. Comparison: Head CT 02/14/2019. Findings: The paranasal sinuses and mastoid air cells are clear. The calvarium and skull base are int act. The ventricles and sulci are within normal limits. There is no mass, hematoma, midline shift, or acute infarct. Impression: No acute intracranial abnormality. ACT 112: Negative or not required by law. Electronically signed by: Osmar Bonilla M.D. 08/16/2020 7:09 AM
[2020-08-16] MEDS ORDERED: amLODIPine BESYLATE 5 MG TAB PO ONE (07:13)
--- NOTE | 2020-08-16 07:55 | XRay Report ---
XR chest 1V portable CLINICAL HISTORY: SEPSIS COMPARISON STUDY: Chest CT April 24, 2019. FINDINGS: Cardiomegaly is unchanged. There is no evidence for pulmonary edema. No lobar consolidation is present. The appearance of the chest is unchanged. There is no pneumothorax or pleural effusion. IMPRESSION: No acute cardiopulmonary findings. No significant change in appearance of the chest. ACT 112: Negative or not required by law. Electronically signed by: Stef Dennis M.D. 08/16/2020 7:54 AM
[2020-08-16] MEDS ORDERED: GLUCAGON FOR INJ 1 MG VIAL SQ PRN (09:18)
[2020-08-16] MEDS ORDERED: DEXTROSE 50% 50 ML SYRINGE IV PRN (09:18)
[2020-08-16] MEDS ORDERED: CARBOHYDRATES FOR HYPOGLYCEMIA PO PRN (09:18)
[2020-08-16] MEDS ORDERED: GLUCOSE 10 TABS/TUBE PO PRN (09:18)
[2020-08-16] MEDS ORDERED: GLUCOSE 40% GEL 15 GM TUBE PO PRN (09:18)
[2020-08-16] MEDS ORDERED: ACETAMINOPHEN 325 MG TAB PO PRN (09:18)
[2020-08-16] MEDS ORDERED: PROMETHAZINE HCL 12.5 MG in SODIUM CHLORIDE 0.9% 50 ML IV PRN (09:18)
[2020-08-16] MEDS: FAMOTIDINE 20 MG TAB PO SCH (10:51)
[2020-08-16] MEDS: ISOSORBIDE MONO EXTENDED REL 60 MG TABCR PO SCH (10:51)
[2020-08-16] MEDS: carvediloL 12.5 MG TAB PO SCH ×2 (10:52→21:01)
[2020-08-16] MEDS: hydrALAZINE TAB 50 MG TAB PO SCH ×3 (10:52→21:01)
[2020-08-16] MEDS: ASPIRIN 81 MG ECTAB PO SCH (10:52)
[2020-08-16] MEDS: CHOLECALCIFEROL 1,000 UNITS 25 MCG TAB PO SCH (10:53)
[2020-08-16] MEDS: CYANOCOBALAMIN 500 MCG TABLET (VITAMIN B-12) PO SCH (10:53)
[2020-08-16] MEDS: FLUTICASONE PROPIONATE NA SPR 16 GM BTL SCH (10:53)
[2020-08-16] MEDS: PANTOprazole 40 MG TAB PO SCH (10:53)
[2020-08-16] MEDS: INSULIN ASPART 100 UNITS/ML 3 ML PEN SC SCH ×4 (10:57→20:53)
[2020-08-16] MEDS: INSULIN GLARGINE SOLOSTAR 100 UNITS/ML 3 ML PEN SQ SCH ×2 (10:58→20:58)
[2020-08-16] MEDS: PATIENT'S HEIGHT AND/OR WEIGHT NEEDED SCH ×2 (10:59→13:55)
[2020-08-16] MEDS ORDERED: INFLUENZA ADMINISTRATION CHARGE ONE (12:08)
[2020-08-16] MEDS ORDERED: INFLUENZA VACCINE HIGH DOSE 65+ 0.7 ML SYR IM ONE (12:08)
[2020-08-16] MEDS: PIPERACILLIN/TAZOBACTAM 3.375 GM in DEXTROSE 5% 100 ML IV SCH ×2 (12:22→20:18)
[2020-08-16] MEDS: HEPARIN SOD 5,000 UNIT/0.5 ML VIAL SQ SCH ×2 (13:54→21:01)
[2020-08-16] MEDS ORDERED: MICONAZOLE NITRATE POWDER 43 GM EXT PRN (16:29)
--- NOTE | 2020-08-16 19:47 | Hospitalist Progress Note ---
Date of Service August 16, 2020 Assessment & Plan (1) Encephalopathy acute: Altered mental status Likely acute metabolic/Toxic encephalopathy secondary to UTI ? Hypertensive encephalopathy CT Head:No acute intracranial abnormality. Normal ammonia levels CXR:No acute cardiopulmonary findings. No significant change in appearance of the chest. Hold sedative meds as able Consider neurology evaluation if needed Recurrent UTI Blood/Urine Cx:pending Normal Lactic acid, procalcitonin levels Continue Zosyn Received IV fluids Chronic diastolic heart failure EF of 60-65% TTE 2018 Euvolemic currently Monitor volume status Resume home Lasix as above H/O CAD Hypertension Blood pressure better Continue current medications DM II Update HbA1C Continue Insulin therapy Monitor BGs CKD III Cr at baseline Monitor renal function Morbid obesity BMI 56 DVT Px: Heparin SQ Code Status Full code Admission and Anticipated Discharge Date Admission Date: August 16, 2020 Subjective Patient is seen and examined at bedside this morning Very drowsy and sleepy this morning Unable to provide much history today No distress on exam Review of Systems Review of Systems: Unobtainable due to reduced consciousness Physical Exam Physical Exam: Physical Exam: Vitals signs as noted above General Appearance:Morbidly obese, no apparent distress Head: normocephalic, Atraumatic Eyes: normal inspection, EOMI Neck: supple, Trachea midline Respiratory/Chest:Decreased breath sounds, CTA Cardiovascular: S1, S2, No murmur Abdomen/GI:Soft, Non tender, Bowel sounds present Extremities/Musculoskelatal:normal inspection, chronic venous stasis changes Neurologic/Psych: Very drowsy, grossly moves all extremities Skin: normal color, warm Results & Data Results & Data ([facility]) Vital Signs (Past 12 Hours) Vital Signs Temp Pulse Pulse Pulse Resp BP BP 08/16/20 16:07 54 L 08/16/20 15:18 36.8 C 65 18 08/16/20 14:29 68 08/16/20 13:26 155/72 H 08/16/20 10:14 36.5 C 65 16 190/72 H 08/16/20 09:00 36.5 C 65 16 190/72 H 08/16/20 08:40 68 18 162/51 H 08/16/20 08:01 74 17 183/67 H 08/16/20 08:00 73 18 BP Pulse Ox 08/16/20 16:07 08/16/20 15:18 154/69 H 99 08/16/20 14:29 12/18/20 13:26 08/16/20 10:14 95 08/16/20 09:00 95 08/16/20 08:40 95 08/16/20 08:01 08/16/20 08:00 Laboratory Results Short CBC 08/16/20 Range/Units 02:39 WBC 9.20 (4.8-10.8) K/uL Hgb 11.7 L (12.0-16.0) g/dL Hct 35.6 L (37-47) % Plt Count 180 (130-400) K/uL BMP 08/16/20 02:39 Sodium 140 Potassium 3.6 Chloride 104 Carbon Dioxide 30 BUN 21 H Creatinine 1.57 H Glucose 123 H Calcium 8.6 Cardiac Enzymes 08/16/20 Range/Units 02:39 Troponin I 0.021 (0-0.045) ng/ml Liver Function 08/16/20 Range/Units 02:39 Total Bilirubin 0.4 (0.2-1) mg/dl AST 28 (15-37) U/L ALT 24 (12-78) U/L Alkaline Phosphatase 92 (45-117) U/L Albumin 3.0 L (3.4-5.0) gm/dl Urine 08/16/20 Range/Units 01:25 Urine Color Yellow Urine Appearance Clear (Clear) Urine pH 7.5 (4.5-7.5) Ur Specific [place] 1.006 (1.000-1.030) Urine Protein Negative (Negative) Urine Glucose (UA) Negative (Negative)
[2020-08-16] MEDS: TERAZOSIN HCL 1 MG CAP PO SCH (21:00)
[2020-08-16] MEDS: ROSUVASTATIN CALCIUM 20 MG TAB PO SCH (21:00)
[2020-08-17] MEDS: PIPERACILLIN/TAZOBACTAM 3.375 GM in DEXTROSE 5% 100 ML IV SCH ×3 (03:49→20:14)
[2020-08-17] MEDS: HEPARIN SOD 5,000 UNIT/0.5 ML VIAL SQ SCH ×3 (05:04→20:15)
--- NOTE | 2020-08-17 06:04 | Electrocardiogram Report ---
Test Reason : Blood Pressure : / mmHG Vent. Rate : 063 BPM Atrial Rate : 063 BPM P-R Int : 200 ms QRS Dur : 100 ms QT Int : 440 ms P-R-T Axes : 048 013 005 degrees QTc Int : 450 ms Poor data quality, interpretation may be adversely affected Normal sinus rhythm Possible Inferior infarct , age undetermined Abnormal ECG When compared with ECG of 23-APR-2019 21:47, QRS axis Shifted right T wave inversion now evident in Inferior leads Confirmed by Sonny Jimenez ([id number]) on 08/17/2020 6:04:28 AM Referred By: REFERRED SELF Confirmed By:Sonny Jimenez
[2020-08-17 06:11] LABS: Basophils # (auto) 0.02 K/uL (0-0.2); Basophils % (auto) 0.2 %; Eosinophils # (auto) 0.17 K/uL (0-0.5); Eosinophils % (auto) 2.1 %; Hematocrit (blood only) 34.6 % (37-47); Hemoglobin 11.1 g/dL (12.0-16.0); Immature Granulocytes # (auto) 0.03 K/uL (0.00-0.02); Immature Granulocytes % (auto) 0.4 %; Lymphocytes # (auto) 2.57 K/uL (1.2-3.4); Lymphocytes % (auto) 31.4 %; Mean Corpuscular Hemoglobin 28.7 pg (25-34); Mean Corpuscular Hgb Conc 32.1 g/dL (32-36); Mean Corpuscular Volume 89.4 fL (80-100); Mean Platelet Volume 9.4 fL (7.4-10.4); Monocytes % (auto) 8.5 %; Neutrophils % (auto) 57.4 %; Platelet Count 186 K/uL (130-400); RDW Coefficient of Variation 14.3 % (11.5-14.5); RDW Standard Deviation 47.1 fL (36.4-46.3); Red Blood Count 3.87 M/uL (4.2-5.4); White Blood Count 8.19 K/uL (4.8-10.8)
[2020-08-17 06:44] LABS: BUN Creatinine Ratio 11.4 (10-20); Calcium 8.2 mg/dl (8.5-10.1); Creatinine Clr Calc Pharmacy 43.1 ml/min; Est GFR (African American) 43.6; Est GFR (Non-African American) 37.6; Magnesium 2.4 mg/dl (1.8-2.4); Potassium 3.3 mmol/L (3.5-5.1)
[2020-08-17 07:38] LABS: Estimated Average Glucose 146 mg/dl; Hemoglobin A1C 6.7 % (4.5-5.6)
[2020-08-17] MEDS: CYANOCOBALAMIN 500 MCG TABLET (VITAMIN B-12) PO SCH (08:20)
[2020-08-17] MEDS: FAMOTIDINE 20 MG TAB PO SCH (08:20)
[2020-08-17] MEDS: carvediloL 12.5 MG TAB PO SCH ×2 (08:20→20:15)
[2020-08-17] MEDS: hydrALAZINE TAB 50 MG TAB PO SCH ×3 (08:20→20:16)
[2020-08-17] MEDS: PANTOprazole 40 MG TAB PO SCH (08:20)
[2020-08-17] MEDS: ASPIRIN 81 MG ECTAB PO SCH (08:20)
[2020-08-17] MEDS: ISOSORBIDE MONO EXTENDED REL 60 MG TABCR PO SCH (08:21)
[2020-08-17] MEDS: FLUTICASONE PROPIONATE NA SPR 16 GM BTL SCH (08:21)
[2020-08-17] MEDS: CHOLECALCIFEROL 1,000 UNITS 25 MCG TAB PO SCH (08:21)
[2020-08-17] MEDS: INSULIN GLARGINE SOLOSTAR 100 UNITS/ML 3 ML PEN SQ SCH ×2 (08:21→20:41)
[2020-08-17] MEDS: amLODIPine BESYLATE 5 MG TAB PO SCH (08:21)
[2020-08-17] MEDS: INSULIN ASPART 100 UNITS/ML 3 ML PEN SC SCH ×4 (08:22→20:41)
[2020-08-17] MEDS ORDERED: POTASSIUM CHLORIDE CRTAB 20 MEQ TABCR PO ONE (09:00)
--- NOTE | 2020-08-17 18:45 | Hospitalist Progress Note ---
Date of Service August 17, 2020 Assessment & Plan (1) Encephalopathy acute: Altered mental status Likely acute metabolic/Toxic encephalopathy secondary to UTI ? Hypertensive encephalopathy CT Head:No acute intracranial abnormality. Normal ammonia levels CXR:No acute cardiopulmonary findings. No significant change in appearance of the chest. Hold sedative meds as able Consider neurology evaluation if needed BP variable Continue home antihypertensives Recurrent UTI Blood Cx:No growth to date Urine Cx: Gram Negative Bacilli Normal Lactic acid, procalcitonin levels Continue Zosyn for now Received IV fluids Chronic diastolic heart failure EF of 60-65% TTE 2018 Euvolemic currently Monitor volume status Resume home Lasix tomorrow H/O CAD Hypertension Continue current medications DM II HbA1C:6.7 Continue Insulin therapy Monitor BGs CKD III Cr at baseline Monitor renal function Morbid obesity BMI 56 DVT Px: Heparin SQ Code Status Full code Admission and Anticipated Discharge Date Admission Date: August 16, 2020 Subjective Patient is seen and examined at bedside this morning More alert, awake today Pleasantly confused intermittently Poor historian No distress on exam Review of Systems Review of Systems: All systems reviewed & are unremarkable except as noted in HPI & below Physical Exam Physical Exam: Physical Exam: Vitals signs as noted above General Appearance:Morbidly obese, no apparent distress Head: normocephalic, Atraumatic Eyes: normal inspection, EOMI Neck: supple, Trachea midline Respiratory/Chest:Decreased breath sounds, CTA Cardiovascular: S1, S2, No murmur Abdomen/GI:Soft, Non tender, Bowel sounds present Extremities/Musculoskelatal:normal inspection, chronic venous stasis changes Neurologic/Psych:Alert, awake, grossly moves all extremities Skin: normal color, warm Results & Data Results & Data ([facility]) Vital Signs (Past 12 Hours) Vital Signs Temp Pulse Pulse Resp BP BP Pulse Ox 08/17/20 16:02 37.1 C 60 20 172/73 H 99 08/17/20 16:00 60 08/17/20 11:42 37.0 C 59 L 18 164/66 H 97 08/17/20 08:00 62 08/17/20 07:16 36.6 C 68 16 136/70 98 Laboratory Results Short CBC 08/17/20 Range/Units 05:57 WBC 8.19 (4.8-10.8) K/uL Hgb 11.1 L (12.0-16.0) g/dL Hct 34.6 L (37-47) % Plt Count 186 (130-400) K/uL [facility] 08/17/20 05:57 Sodium 144 Potassium 3.3 L Chloride 111 H Carbon Dioxide 26 BUN 16 Creatinine 1.37 H Glucose 125 H Calcium 8.2 L
[2020-08-17] MEDS: TERAZOSIN HCL 1 MG CAP PO SCH (20:15)
[2020-08-17] MEDS: ROSUVASTATIN CALCIUM 20 MG TAB PO SCH (20:16)
[2020-08-18] MEDS: PIPERACILLIN/TAZOBACTAM 3.375 GM in DEXTROSE 5% 100 ML IV SCH (04:48)
[2020-08-18] MEDS: HEPARIN SOD 5,000 UNIT/0.5 ML VIAL SQ SCH ×3 (04:50→21:23)
[2020-08-18 07:29] LABS: BUN Creatinine Ratio 10.6 (10-20); Calcium 8.2 mg/dl (8.5-10.1); Creatinine Clr Calc Pharmacy 41.1 ml/min; Est GFR (African American) 41.1; Est GFR (Non-African American) 35.4; Potassium 3.5 mmol/L (3.5-5.1)
[2020-08-18] MEDS: CYANOCOBALAMIN 500 MCG TABLET (VITAMIN B-12) PO SCH (07:40)
[2020-08-18] MEDS: FUROSEMIDE 40 MG TAB PO SCH (07:41)
[2020-08-18] MEDS: carvediloL 12.5 MG TAB PO SCH ×2 (07:41→21:24)
[2020-08-18] MEDS: CHOLECALCIFEROL 1,000 UNITS 25 MCG TAB PO SCH (07:41)
[2020-08-18] MEDS: ASPIRIN 81 MG ECTAB PO SCH (07:41)
[2020-08-18] MEDS: FAMOTIDINE 20 MG TAB PO SCH (07:41)
[2020-08-18] MEDS: hydrALAZINE TAB 50 MG TAB PO SCH ×3 (07:41→21:25)
[2020-08-18] MEDS: amLODIPine BESYLATE 5 MG TAB PO SCH (07:41)
[2020-08-18] MEDS: FLUTICASONE PROPIONATE NA SPR 16 GM BTL SCH (07:42)
[2020-08-18] MEDS: INSULIN GLARGINE SOLOSTAR 100 UNITS/ML 3 ML PEN SQ SCH ×2 (07:42→21:19)
[2020-08-18] MEDS: ISOSORBIDE MONO EXTENDED REL 60 MG TABCR PO SCH (07:42)
[2020-08-18] MEDS: PANTOprazole 40 MG TAB PO SCH (07:42)
[2020-08-18] MEDS: POLYETHYLENE (MIRALAX) 17 GM PACK PO SCH (08:17)
[2020-08-18] MEDS: cefTRIAXone SODIUM 2,000 MG in DEXTROSE 5% 50 ML IV SCH (08:24)
[2020-08-18] MEDS: POTASSIUM CHLORIDE CRTAB 20 MEQ TABCR PO SCH (08:24)
[2020-08-18] MEDS: INSULIN ASPART 100 UNITS/ML 3 ML PEN SC SCH ×4 (08:39→21:21)
[2020-08-18] MEDS ORDERED: DICLOFENAC SOD 1% GEL 100 GM TUBE EXT PRN (14:45)
--- NOTE | 2020-08-18 14:46 | Hospitalist Progress Note ---
Date of Service August 18, 2020 Assessment & Plan (1) Encephalopathy acute: Altered mental status Likely acute metabolic/Toxic encephalopathy secondary to UTI ? Hypertensive encephalopathy CT Head:No acute intracranial abnormality. Normal ammonia levels CXR:No acute cardiopulmonary findings. No significant change in appearance of the chest. Hold sedative meds for now Continue home antihypertensives Mental status slowly improving Reorient frequently to minimize delirium Recurrent UTI Blood Cx:No growth to date Urine Cx: E.coli Normal Lactic acid, procalcitonin levels Received Zosyn>> transitioned to Rocephin Received IV fluids Chronic diastolic heart failure EF of 60-65% TTE 2018 Euvolemic currently Monitor volume status Continue furosemide H/O CAD Hypertension Continue current medications DM II HbA1C:6.7 Continue Insulin therapy Monitor BGs CKD III Cr at baseline Monitor renal function Morbid obesity BMI 56 DVT Px: Heparin SQ Code Status Full code Disposition PT OT prior to discharge Admission and Anticipated Discharge Date Admission Date: August 16, 2020 Subjective Patient is seen and examined at bedside Reports having intermittent dysuria Mental status seems to be much improved today Denies any chest pain, dyspnea, dizziness, nausea, abdominal pain Lying in bed comfortably this morning Offers no other complaints Review of Systems Review of Systems: All systems reviewed & are unremarkable except as noted in HPI & below Physical Exam Physical Exam: Physical Exam: Vitals signs as noted above General Appearance:Morbidly obese, no apparent distress Head: normocephalic, Atraumatic Eyes: normal inspection, EOMI Neck: supple, Trachea midline Respiratory/Chest:Decreased breath sounds, CTA Cardiovascular: S1, S2, No murmur Abdomen/GI:Soft, Non tender, Bowel sounds present Extremities/Musculoskelatal:normal inspection, chronic venous stasis changes Neurologic/Psych:Alert, awake, grossly moves all extremities Skin: normal color, warm Results & Data Results & Data ([facility]) Vital Signs (Past 12 Hours) Vital Signs Temp Pulse Pulse Resp BP Pulse Ox 08/18/20 11:55 37.0 C 65 18 161/75 H 98 08/18/20 08:00 72 08/18/20 07:36 37.5 C 71 20 182/74 H 99 08/18/20 04:00 68 18 160/67 H Laboratory Results [facility] 08/18/20 06:12 Sodium 144 Potassium 3.5 Chloride 113 H Carbon Dioxide 23 BUN 15 Creatinine 1.44 H Glucose 129 H Calcium 8.2 L
[2020-08-18] MEDS: TERAZOSIN HCL 1 MG CAP PO SCH (21:22)
[2020-08-18] MEDS: ROSUVASTATIN CALCIUM 20 MG TAB PO SCH (21:23)
[2020-08-18] MEDS: cloNIDine HCL 0.1 MG TAB PO SCH (21:46)
[2020-08-18] MEDS: TOPIRAMATE 25 MG TAB PO SCH (21:46)
[2020-08-19] MEDS: HEPARIN SOD 5,000 UNIT/0.5 ML VIAL SQ SCH ×3 (06:17→21:33)
[2020-08-19 07:09] LABS: Hematocrit (blood only) 33.1 % (37-47); Hemoglobin 10.9 g/dL (12.0-16.0); Mean Corpuscular Hemoglobin 29.5 pg (25-34); Mean Corpuscular Hgb Conc 32.9 g/dL (32-36); Mean Corpuscular Volume 89.5 fL (80-100); Mean Platelet Volume 9.9 fL (7.4-10.4); Platelet Count 179 K/uL (130-400); RDW Coefficient of Variation 14.4 % (11.5-14.5); RDW Standard Deviation 47.1 fL (36.4-46.3); White Blood Count 9.01 K/uL (4.8-10.8)
[2020-08-19 07:39] LABS: BUN Creatinine Ratio 10.5 (10-20); Calcium 8.4 mg/dl (8.5-10.1); Creatinine Clr Calc Pharmacy 39.8 ml/min; Est GFR (African American) 41.8; Magnesium 2.2 mg/dl (1.8-2.4); Potassium 3.2 mmol/L (3.5-5.1)
[2020-08-19] MEDS ORDERED: POTASSIUM CHLORIDE CRTAB 20 MEQ TABCR PO ONE (09:30)
[2020-08-19] MEDS: FLUTICASONE PROPIONATE NA SPR 16 GM BTL SCH (09:59)
[2020-08-19] MEDS: cloNIDine HCL 0.1 MG TAB PO SCH ×2 (09:59→20:07)
[2020-08-19] MEDS: CHOLECALCIFEROL 1,000 UNITS 25 MCG TAB PO SCH (10:00)
[2020-08-19] MEDS: TOPIRAMATE 25 MG TAB PO SCH ×2 (10:00→20:09)
[2020-08-19] MEDS: carvediloL 12.5 MG TAB PO SCH ×2 (10:00→20:07)
[2020-08-19] MEDS: POLYETHYLENE (MIRALAX) 17 GM PACK PO SCH (10:01)
[2020-08-19] MEDS: amLODIPine BESYLATE 5 MG TAB PO SCH (10:01)
[2020-08-19] MEDS: ASPIRIN 81 MG ECTAB PO SCH (10:01)
[2020-08-19] MEDS: FUROSEMIDE 40 MG TAB PO SCH (10:01)
[2020-08-19] MEDS: CYANOCOBALAMIN 500 MCG TABLET (VITAMIN B-12) PO SCH (10:01)
[2020-08-19] MEDS: hydrALAZINE TAB 50 MG TAB PO SCH ×3 (10:02→21:31)
[2020-08-19] MEDS: FAMOTIDINE 20 MG TAB PO SCH (10:02)
[2020-08-19] MEDS: ISOSORBIDE MONO EXTENDED REL 60 MG TABCR PO SCH (10:02)
[2020-08-19] MEDS: PANTOprazole 40 MG TAB PO SCH (10:02)
[2020-08-19] MEDS: cefTRIAXone SODIUM 2,000 MG in DEXTROSE 5% 50 ML IV SCH (10:03)
[2020-08-19] MEDS: POTASSIUM CHLORIDE CRTAB 20 MEQ TABCR PO SCH (10:04)
[2020-08-19] MEDS: INSULIN GLARGINE SOLOSTAR 100 UNITS/ML 3 ML PEN SQ SCH ×2 (10:05→21:32)
[2020-08-19] MEDS: INSULIN ASPART 100 UNITS/ML 3 ML PEN SC SCH ×4 (10:06→21:32)
[2020-08-19] MEDS: traMADol HCL 50 MG TABLET PO PRN ×2 (10:22→17:35)
[2020-08-19] MEDS: LACTOBACILLUS ACIDOPHILUS 1 GM PACK PO SCH ×2 (12:17→16:36)
[2020-08-19] MEDS: oxyCODONE/ACETAMINOPHEN 5mg/325mg TAB PO PRN ×2 (12:17→20:05)
[2020-08-19] MEDS: GABAPENTIN 300 MG CAP PO SCH ×2 (13:03→20:09)
--- NOTE | 2020-08-19 18:54 | Hospitalist Progress Note ---
Date of Service August 19, 2020 Assessment & Plan (1) Encephalopathy acute: Altered mental status Likely acute metabolic/Toxic encephalopathy secondary to UTI ? Hypertensive encephalopathy CT Head:No acute intracranial abnormality. Normal ammonia levels CXR:No acute cardiopulmonary findings. No significant change in appearance of the chest. Resume home meds initially held Continue home antihypertensives Mental status back to baseline Recurrent UTI Blood Cx:No growth to date Urine Cx: E.coli Normal Lactic acid, procalcitonin levels Received Zosyn>> transitioned to Rocephin Received IV fluids Diarrhea Likely secondary to antibiotics Check stool for C. difficile if recurrent Chronic diastolic heart failure EF of 60-65% TTE 2018 Euvolemic currently Monitor volume status Continue furosemide H/O CAD Hypertension Continue current medications DM II HbA1C:6.7 Continue Insulin therapy Monitor BGs CKD III Cr at baseline Monitor renal function Morbid obesity BMI 56 DVT Px: Heparin SQ Code Status Full code Disposition PT OT prior to discharge Admission and Anticipated Discharge Date Admission Date: August 16, 2020 Subjective Patient is seen and examined at bedside Mental status back to baseline Reports diarrhea today Also states having minimal lower abdominal pressure associated with nausea earlier today Denies any chest pain, dyspnea, dizziness Offers no other complaints Review of Systems Review of Systems: All systems reviewed & are unremarkable except as noted in HPI & below Physical Exam Physical Exam: Physical Exam: Vitals signs as noted above General Appearance:Morbidly obese, no apparent distress Head: normocephalic, Atraumatic Eyes: normal inspection, EOMI Neck: supple, Trachea midline Respiratory/Chest:Decreased breath sounds, CTA Cardiovascular: S1, S2, No murmur Abdomen/GI:Soft, Non tender, Bowel sounds present Extremities/Musculoskelatal:normal inspection, chronic venous stasis changes Neurologic/Psych:Alert, awake, grossly moves all extremities Skin: normal color, warm Results & Data Results & Data ([facility]) Vital Signs (Past 12 Hours) Vital Signs Temp Pulse Pulse Resp BP Pulse Ox 08/19/20 15:31 36.8 C 55 L 16 154/67 H 96 08/19/20 11:41 37.0 C 54 L 18 134/78 98 08/19/20 08:00 68 08/19/20 07:18 37.4 C 69 18 147/76 H 95 Laboratory Results Short CBC 08/19/20 Range/Units 06:25 WBC 9.01 (4.8-10.8) K/uL Hgb 10.9 L (12.0-16.0) g/dL Hct 33.1 L (37-47) % Plt Count 179 (130-400) K/uL [facility] 08/19/20 06:25 Sodium 144 Potassium 3.2 L Chloride 112 H Carbon Dioxide 23 BUN 15 Creatinine 1.42 H Glucose 139 H Calcium 8.4 L
[2020-08-19] MEDS: ROSUVASTATIN CALCIUM 20 MG TAB PO SCH (20:08)
[2020-08-19] MEDS: TERAZOSIN HCL 1 MG CAP PO SCH (20:08)
[2020-08-20] MEDS: HEPARIN SOD 5,000 UNIT/0.5 ML VIAL SQ SCH (05:27)
[2020-08-20 07:39] LABS: BUN Creatinine Ratio 13.2 (10-20); Calcium 8.6 mg/dl (8.5-10.1); Creatinine Clr Calc Pharmacy 38.7 ml/min; Est GFR (African American) 41.1; Est GFR (Non-African American) 35.4; Potassium 3.6 mmol/L (3.5-5.1)
[2020-08-20] MEDS: cefTRIAXone SODIUM 2,000 MG in DEXTROSE 5% 50 ML IV SCH (08:03)
[2020-08-20] MEDS: cloNIDine HCL 0.1 MG TAB PO SCH (08:03)
[2020-08-20] MEDS: CHOLECALCIFEROL 1,000 UNITS 25 MCG TAB PO SCH (08:04)
[2020-08-20] MEDS: POTASSIUM CHLORIDE CRTAB 20 MEQ TABCR PO SCH (08:04)
[2020-08-20] MEDS: FUROSEMIDE 40 MG TAB PO SCH (08:04)
[2020-08-20] MEDS: carvediloL 12.5 MG TAB PO SCH (08:05)
[2020-08-20] MEDS: amLODIPine BESYLATE 5 MG TAB PO SCH (08:05)
[2020-08-20] MEDS: ISOSORBIDE MONO EXTENDED REL 60 MG TABCR PO SCH (08:06)
[2020-08-20] MEDS: LACTOBACILLUS ACIDOPHILUS 1 GM PACK PO SCH (08:07)
[2020-08-20] MEDS: ASPIRIN 81 MG ECTAB PO SCH (08:08)
[2020-08-20] MEDS: PANTOprazole 40 MG TAB PO SCH (08:08)
[2020-08-20] MEDS: FAMOTIDINE 20 MG TAB PO SCH (08:08)
[2020-08-20] MEDS: CYANOCOBALAMIN 500 MCG TABLET (VITAMIN B-12) PO SCH (08:08)
[2020-08-20] MEDS: GABAPENTIN 300 MG CAP PO SCH (08:09)
[2020-08-20] MEDS: TOPIRAMATE 25 MG TAB PO SCH (08:09)
[2020-08-20] MEDS: FLUTICASONE PROPIONATE NA SPR 16 GM BTL SCH (08:10)
[2020-08-20] MEDS: INSULIN GLARGINE SOLOSTAR 100 UNITS/ML 3 ML PEN SQ SCH (08:14)
[2020-08-20] MEDS: INSULIN ASPART 100 UNITS/ML 3 ML PEN SC SCH (08:55)
[2020-08-20] MEDS ORDERED: SERTRALINE HCL 50 MG TABLET PO SCH (09:00)
[2020-08-20] MEDS: hydrALAZINE TAB 50 MG TAB PO SCH (10:22)
--- NOTE | 2020-08-20 12:55 | Hospitalist Progress Note ---
Date of Service August 20, 2020 Assessment & Plan (1) Encephalopathy acute: Altered mental status Likely acute metabolic/Toxic encephalopathy secondary to UTI ? Hypertensive encephalopathy CT Head:No acute intracranial abnormality. Normal ammonia levels CXR:No acute cardiopulmonary findings. No significant change in appearance of the chest. Resume home meds initially held Continue home antihypertensives Mental status back to baseline Recurrent UTI Blood Cx:No growth to date Urine Cx: E.coli Normal Lactic acid, procalcitonin levels Received Zosyn>> transitioned to Rocephin Completed antibiotic course Received IV fluids Diarrhea Likely secondary to antibiotics Check stool for C. difficile if recurrent Chronic diastolic heart failure EF of 60-65% TTE 2018 Euvolemic currently Monitor volume status Continue furosemide H/O CAD Hypertension Continue current medications DM II HbA1C:6.7 Continue Insulin therapy Monitor BGs CKD III Cr at baseline Monitor renal function Morbid obesity BMI 56 DVT Px: Heparin SQ Code Status Full code Disposition Not interested in Rehab placement Plan to discharge home today Admission and Anticipated Discharge Date Admission Date: August 16, 2020 Subjective Patient is seen and examined at bedside Had minimal diarrhea today Denies any Abdominal pain today Also denies any chest pain, dyspnea, dizziness Offers no other complaints Refused Rehab Eager to get discharged Review of Systems Review of Systems: All systems reviewed & are unremarkable except as noted in HPI & below Physical Exam Physical Exam: Physical Exam: Vitals signs as noted above General Appearance:Morbidly obese, no apparent distress Head: normocephalic, Atraumatic Eyes: normal inspection, EOMI Neck: supple, Trachea midline Respiratory/Chest:Decreased breath sounds, CTA Cardiovascular: S1, S2, No murmur Abdomen/GI:Soft, Non tender, Bowel sounds present Extremities/Musculoskelatal:normal inspection, chronic venous stasis changes Neurologic/Psych:Alert, awake, grossly moves all extremities Skin: normal color, warm Results & Data Results & Data ([facility]) Vital Signs (Past 12 Hours) Vital Signs Temp Pulse Pulse Resp BP BP Pulse Ox 08/20/20 07:25 57 L 08/20/20 06:46 36.7 C 58 L 18 167/73 H 98 08/20/20 05:20 36.7 C 58 L 18 129/71 99 Laboratory Results [facility] 08/20/20 06:22 Sodium 139 Potassium 3.6 Chloride 107 Carbon Dioxide 24 BUN 19 H Creatinine 1.44 H Glucose 141 H Calcium 8.6
--- NOTE | 2020-08-20 13:05 | Discharge Summary ---
Date of Service August 20, 2020 Admission HPI Per Admitting Provider History obtained from patient, family, and records. Limited history from patient secondary to disorientation. Medical history significant for chronic diastolic heart failure (EF of 60-65% TTE 2018), CAD as per records, hypertension, DM2, insulin-requiring, CRI (baseline creatinine 1.7-2), chronic anemia (baseline hemoglobin of 10), recurrent UTIs, anxiety/mood disorder. Last confinement January 2019 for fall, closed cervical fracture. No operative intervention. Patient seen at PCPs office about 2 weeks ago for upset stomach, poor appetite. Outpatient Covid testing was negative. Patient complaining of chronic back pain. Yesterday patient noted to be confused. Patient denies chest pain, cough, S OB, abdominal pain, dysuria symptoms. I feel fine as per patient. Patient brought to the ER for evaluation. MEDICAL HISTORY: As above. SURGERIES: Hernia repair, , hysterectomy, cholecystectomy. FAMILY HISTORY: Heart disease. Cavalier's chorea PERSONAL AND SOCIAL HISTORY: Nonsmoker. No chronic intake of alcoholic beverages. Lives with sisters. Admission Exam Per Admitting Provider Physical Exam Physical Exam: GENERAL: Comfortable, morbidly obese, disoriented, follows some commands, no respiratory distress SKIN: Pallor , warm HEENT: Pale palpebral conjunctivae, no ptosis, dry buccal mucosa NECK : Supple, short neck, no tenderness CHEST : Decreased breath sounds , no tenderness HEART : RRR, no obvious murmurs ABDOMEN: Some distention, nontender EXTREMITIES : Minimal LE swelling, no LE tenderness, some erythema RLE, no other conspicuous deformities noted NEUROLOGIC : Coherent, disoriented, no facial asymmetry, gait and stance not assessed Principal Diagnosis Acute metabolic/Toxic encephalopathy Urinary Tract Infection Discharge Data Allergies Allergy/AdvReac Type Severity Reaction Status Date / Time metformin Allergy Intermediate causes Verified 04/23/19 22:26 kidney problems Bactrim Allergy Unknown "ITS BEEN Verified 01/23/18 23:34 SO LONG, I FORGET" loratadine Allergy Unknown MOUTH Verified 04/23/19 22:26 SWELLING sulfamethoxazole Allergy Unknown "ITS BEEN Verified 04/23/19 22:26 SO LONG, I FORGET" trimethoprim Allergy Unknown "ITS BEEN Verified 04/23/19 22:26 SO LONG, I FORGET" Sulfa (Sulfonamide AdvReac Unknown NAUSEA Verified 04/23/19 22:26 Antibiotics) HMG-CoA-R Inhibitors AdvReac Mild GI UPSET Uncoded 04/23/19 22:26 Consultations 08/16/20 05:24 ED Decision to Admit Stat 08/16/20 09:18 Consult Case Management - Discharge Planning Routine Ordered Studies 08/16/20 01:32 CT head/brain wo con Urgent CT Head:No acute intracranial abnormality. CXR: IMPRESSION: No acute cardiopulmonary findings. No significant change in appearance of the chest. Hospital Course (1) Encephalopathy acute: Altered mental status Likely acute metabolic/Toxic encephalopathy secondary to UTI ? Hypertensive encephalopathy CT Head:No acute intracranial abnormality. Normal ammonia levels CXR:No acute cardiopulmonary findings. No significant change in appearance of the chest. Resume home meds initially held Continue home antihypertensives Mental status back to baseline Recurrent UTI Blood Cx:No growth to date Urine Cx: E.coli Normal Lactic acid, procalcitonin levels Received Zosyn>> transitioned to Rocephin Completed antibiotic course Received IV fluids Diarrhea Likely secondary to antibiotics Check stool for C. difficile if recurrent Chronic diastolic heart failure EF of 60-65% TTE 2018 Euvolemic currently Monitor volume status Continue furosemide H/O CAD Hypertension Continue current medications DM II HbA1C:6.7 Continue Insulin therapy Monitor BGs CKD III Cr at baseline Monitor renal function Morbid obesity BMI 56 DVT Px: Heparin SQ Code Status Full code Disposition Not interested in Rehab placement Plan to discharge home today Total Time Total Time Spent Total Time Spent (In Minutes): 45 minutes Discharge Plan Discharge Items Patient Disposition: Home - Self-Care Reason For Visit: ENCEPHALOPATHY Discharge Diagnosis: Acute metabolic/Toxic encephalopathy Urinary Tract Infection Activity: Per Instructions section Exercise/Sports: Gradually increase as tolerated Non-emergency contact: Primary Care Provider Call non-emergency contact if: you have any medication questions, your symptoms worsen, your pain is not controlled, your pain is worsening, your pain is unusual for you, your pain is concerning for you and you have a fever Follow-up/Referrals: Eric Bullock DO [Outside Practitioners] - (Date & Time 08/22/2020 10:20 AM Provider Eric Bullock DO Department [facility] ) Diet: Carb Consistent or DM2 Addtl Attending Provider Instructions: Follow-up with your primary care physician Dr.Trevor Bullock on 08/22/2020 10:20 AM Your final blood cultures are pending at the time of discharge. Follow-up with your physician for results. Seek immediate medical attention if your symptoms reoccur or worsen Pending Studies at Discharge: Yes Studies:: Blood Culture Stand-Alone Forms: My [facility], Smoking Cessation Medications and DC Order Prescriptions: New Floranex 100 million cell Granules In Packet 1 packet PO TIDM Qty: 12 RF: 0 Continued clonazepam 1 mg tablet 1 mg PO HS RF: 0 oxycodone-acetaminophen [Percocet] 5-325 mg tablet 1 tab PO TID RF: 0 isosorbide mononitrate 120 mg tablet extended release 24 hr 120 mg PO QAM RF: 0 polyethylene glycol 3350 [Miralax] 17 gram/dose Powder 17 g PO QAM RF: 0 cyanocobalamin (vitamin B-12) [Vitamin B-12] 1,000 mcg Tablet 1,000 mcg PO QAM RF: 0 carvedilol 12.5 mg tablet 12.5 mg PO BID RF: 0 topiramate 25 mg tablet 25 mg PO BID RF: 0 terazosin 1 mg capsule 1 mg PO HS RF: 0 aspirin 81 mg Tablet,Delayed Release (Dr/Ec) 81 mg PO QAM RF: 0 amlodipine 10 mg tablet 10 mg PO QAM RF: 0 hydralazine 100 mg tablet 100 mg PO TID RF: 0 pantoprazole 40 mg tablet,delayed release (DR/EC) 40 mg PO QAM RF: 0 nitroglycerin [Nitrostat] 0.4 mg Tablet, Sublingual 0.4 mg sublingual DIRECTED PRN (Reason: Chest Pain) RF: 0 gabapentin 300 mg capsule 300 mg PO TID RF: 0 fluticasone propionate 50 mcg/actuation spray,suspension 2 spray intranasal QAM RF: 0 sertraline 50 mg tablet 50 mg PO QAM RF: 0 insulin lispro [Humalog KwikPen Insulin] 100 unit/mL insulin pen 10 unit subcut TIDM RF: 0 rosuvastatin 40 mg tablet 40 mg PO HS RF: 0 Lantus Solostar U-100 Insulin 100 unit/mL (3 mL) insulin pen 20 unit subcut BID RF: 0 cholecalciferol (vitamin D3) [Vitamin D3] 1,000 unit Capsule 1,000 unit PO DAILY RF: 0 baclofen 10 mg tablet 10 mg PO UD RF: 0 diclofenac sodium 1 % gel 1 ea TOPICAL UD RF: 0 famotidine 20 mg tablet 20 mg PO DAILY RF: 0 furosemide 40 mg tablet 40 mg PO QAM RF: 0 ondansetron HCl 8 mg tablet 8 mg PO TID PRN (Reason: Nausea) RF: 0 clonidine 0.2 mg PO BID RF: 0 Discharge Orders: Discharge Order (Routine); Ordered 08/20/20 Ordered By: Brian Sarabia/Other Patient Handouts: High Blood Sugar (Hyperglycemia), Hypoglycemia (Low Blood Sugar), Managing Type 2 Diabetes Admission Data Admit Date/Time: 08/16/20 06:20 Attending Provider: Brian Desai Admit Provider: Zaid Felipe Primary Care Provider: PCP,NO Other Providers: Zaid Felipe Other Interventions: Discharge Summary Assessment (RN) Last Done: 08/20/20 13:14
[2020-08-20] MEDS ORDERED: clonazePAM 1 MG TAB PO SCH (21:00)
== END 2020-08-20 13:15 | disposition home or self-care (01) ==
LOC: ED 00:56 → 2N 06:20

== ENCOUNTER 2020-12-05 00:22 | Inpatient (IN) ==
--- NOTE | 2020-12-05 00:57 | Emergency Department Note ---
History of Present Illness General Chief complaint: Hypoglycemia Stated complaint: UNRESPONSIVE Time Seen by Provider: 12/05/20 00:35 Source: EMS Mode of arrival: EMS Limitations: altered mental status History of Present Illness Provider complaint: Unresponsive, hypoglycemic Onset (ago): unknown This is a 75-year-old female who presents via EMS from home due to concern for decreased responsiveness and hypoglycemia. Nursing staff states EMS at bedside report mentioned that patient lives with family, has been minimally responsive for them and they thought she was just tired. When she was difficult to arouse they finally called EMS. Blood sugar was low so she was given dextrose contai pamella solution in route which improved. On recheck here, blood sugar was trending back down. They did note that patient was bradycardic throughout, however EMS states family reported to them that that is normal for her. EMS states family cannot provide any additional information. At bedside, pt m inimally able to nod/shake head with questions. Denies pain or feeling SOB. Pt seen during a time of high acuity and national emergency pandemic while wearing PPE. Home Medications Medication Instructions Recorded Confirmed Type Lantus Solostar U-100 Insulin 20 unit SUBCUT BID 02/14/19 12/05/20 History amlodipine 10 mg PO QAM 02/14/19 12/05/20 History aspirin 81 mg PO QAM 02/14/19 12/05/20 History carvedilol 12.5 mg PO AMPM 02/14/19 12/05/20 History cholecalciferol (vitamin D3) 1,000 unit PO DAILY 02/14/19 12/05/20 History [Vitamin D3] fluticasone propionate 2 spray INTRANASAL QAM 02/14/19 12/05/20 History gabapentin 300 mg PO TID 02/14/19 12/05/20 History hydralazine 100 mg PO TID 02/14/19 12/05/20 History insulin lispro [Humalog KwikPen 10 unit SUBCUT TIDM 02/14/19 12/05/20 History Insulin] nitroglycerin [Nitrostat] 0.4 mg SUBLINGUAL DIRECTED PRN 02/14/19 12/05/20 History pantoprazole 40 mg PO QAM 02/14/19 12/05/20 History rosuvastatin 40 mg PO HS 02/14/19 12/05/20 History sertraline 50 mg PO QAM 02/14/19 12/05/20 History terazosin 1 mg PO HS 02/14/19 12/05/20 History topiramate 25 mg PO BID 02/14/19 12/05/20 History clonazepam 1 mg PO HS 03/02/19 12/05/20 History isosorbide mononitrate 120 mg PO QAM 04/23/19 12/05/20 History oxycodone-acetaminophen [Percocet] 1 tab PO TID PRN 04/23/19 12/05/20 History polyethylene glycol 3350 [Miralax] 17 g PO QAM 04/23/19 12/05/20 History baclofen 5 mg PO BID PRN 08/16/20 12/05/20 History diclofenac sodium 1 ea TOPICAL BID PRN 08/16/20 12/05/20 History famotidine 20 mg PO DAILY 08/16/20 12/05/20 History furosemide 40 mg PO QAM 08/16/20 12/05/20 History ondansetron HCl 8 mg PO TID PRN 08/16/20 12/05/20 History Lactobacillus acidoph-L.bulgar 1 tab PO DAILY 10/27/20 12/05/20 History [Lactinex] clonidine HCl 0.2 mg PO BID 10/27/20 12/05/20 History fenofibrate nanocrystallized 145 mg PO DAILY 10/27/20 12/05/20 History nystatin 1 applic TOPICAL TID PRN 10/27/20 12/05/20 History sennosides-docusate sodium 2 tab-cap PO HS PRN 10/27/20 12/05/20 History [Senna-S] potassium chloride [Klor-Con M10] 40 meq PO DAILY 12/05/20 12/05/20 History Allergies Allergy/AdvReac Type Severity Reaction Status Date / Time loratadine Allergy Intermediate MOUTH Verified 12/05/20 01:43 SWELLING diphenhydramine AdvReac Intermediate GMG-SHAKING Verified 12/05/20 01:43 [From Benadryl] & SWEATING metformin AdvReac Intermediate causes Verified 12/05/20 04:04 kidney problems Sulfa (Sulfonamide AdvReac Intermediate Unknown Verified 12/05/20 01:43 Antibiotics) sulfamethoxazole AdvReac Intermediate GMG-RENAL Verified 12/05/20 01:43 COMPLICATIONS trimethoprim AdvReac Intermediate GMG-RENAL Verified 12/05/20 01:43 COMPLICATIONS Msmuihn-Qeh-Rrj Reductase AdvReac Mild Gastrointestinal Verified 12/05/20 04:06 Inhibitor Upset Past Med/Surg History Medical History Adjustment disorder CAD (coronary artery disease) CHF (congestive heart failure) CKD (chronic kidney disease), stage III GERD (gastroesophageal reflux disease) HLD (hyperlipidemia) Hypertension Hyponatremia IBS (irritable bowel syndrome) Insulin dependent diabetes mellitus Morbid obesity Paroxysmal A-fib Surgical History H/O hernia repair H/O: H/O: hysterectomy S/P cholecystectomy Family History Other No pertinent family history Social History Smoking Status: Unknown if ever smoked Second Hand Exposure: No; Hx Alcohol Use: No Hx Substance Use: No Preferred Language: Urdu Communication Ability: Effective Communication Ability Comment: Pt is lethargic and disoriented Visual Impairment: No Limitations Black Pickler Required: No Beliefs That Will Affect Care: None marital status: / Current Living Situation: Family Other Information That Helps Us Care for You: No Feels Safe at Home: Yes Safety Concerns: Feels Safe At This Time Assistive Devices: Oxygen - Continuous Review of Systems Unobtainable due to reduced consciousness Physical Exam Vital Signs Vital Signs - 24 hr 12/05/20 00:29 12/05/20 00:38 12/05/20 00:40 Pulse Rate 42 L 43 L 42 L Pulse Rate from SpO2 Sensor 43 L 43 L 42 L Respiratory Rate 18 16 15 Respiratory Effort / Characteristics Respiratory Depth Blood Pressure 145/64 H Blood Pressure Mean 91 Pulse Oximetry 99 99 99 Oxygen Delivery Method Oxygen Flow Rate Sepsis Recent Fever Within 48 Hours Sepsis New/Unexplained Change in Mental Status Sepsis Action Taken by Nursing 12/05/20 00:41 12/05/20 00:53 12/05/20 01:00 Pulse Rate 44 L 42 L 41 L Pulse Rate from SpO2 Sensor 42 L 41 L Respiratory Rate 18 13 15 Respiratory Effort / Characteristics Non-Labored Respiratory Depth Normal Blood Pressure 145/64 H 136/52 L 138/55 L Blood Pressure Mean 91 80 82 Pulse Oximetry 99 99 99 Oxygen Delivery Method Room Air Oxygen Flow Rate Sepsis Recent Fever Within 48 Hours No Sepsis New/Unexplained Change in Mental Status No Sepsis Action Taken by Nursing No Action Required 12/05/20 01:01 12/05/20 01:20 12/05/20 01:34 Pulse Rate 41 L 42 L Pulse Rate from SpO2 Sensor 41 L 41 L 42 L Respiratory Rate 16 15 Respiratory Effort / Characteristics Respiratory Depth Blood Pressure 137/57 L Blood Pressure Mean 83 Pulse Oximetry 99 98 98 Oxygen Delivery Method Oxygen Flow Rate Sepsis Recent Fever Within 48 Hours Sepsis New/Unexplained Change in Mental Status Sepsis Action Taken by Nursing 12/05/20 01:47 12/05/20 02:00 12/05/20 02:01 Pulse Rate 45 L 43 L 43 L Pulse Rate from SpO2 Sensor 43 L 43 L Respiratory Rate 11 L 15 14 Respiratory Effort / Characteristics Respiratory Depth Blood Pressure 197/81 H Blood Pressure Mean 119 Pulse Oximetry 96 98 Oxygen Delivery Method Oxygen Flow Rate Sepsis Recent Fever Within 48 Hours Sepsis New/Unexplained Change in Mental Status Sepsis Action Taken by Nursing 12/05/20 02:05 12/05/20 03:00 12/05/20 03:31 Pulse Rate 43 L 44 L 47 L Pulse Rate from SpO2 Sensor 43 L Respiratory Rate 17 29 H 27 H Respiratory Effort / Characteristics Respiratory Depth Blood Pressure 152/63 H 148/66 H 148/68 H Blood Pressure Mean 92 93 94 Pulse Oximetry 98 97 99 Oxygen Delivery Method Nasal Cannula Nasal Cannula Oxygen Flow Rate 2 2 Sepsis Recent Fever Within 48 Hours Sepsis New/Unexplained Change in Mental Status Sepsis Action Taken by Nursing GENERAL: Unwell appearing, well nourished, no distress, morbidly obese EYE EXAM: normal conjunctiva, PERRL and EOM's grossly intact OROPHARYNX: no exudate, no erythema, lips, buccal mucosa, and tongue normal and mucous membranes are moist NECK: supple, no nuchal rigidity, no adenopathy, non-tender LUNGS: Clear to auscultation. Normal chest wall mechanics, no w/r/r HEART: no murmurs, S1 normal and S2 normal, bradycardic in the 40s on telemetry ABDOMEN: abdomen soft, non-tender, normo-active bowel sounds, no masses, no rebound or guarding. BACK: Back is symmetrical on inspection and there is no deformity, no midline tenderness, no CVA tenderness. SKIN: no rashes and no bruising UPPER EXTREMITIES: upper extremities are grossly normal. FROM, nml pulses b/l. LOWER EXTREMITIES: No pitting edema. FROM, nml pulses b/l. Compression stockings bilaterally. NEURO EXAM: Patient opens eyes to voice, does respond to painful stimuli although does not try to localize it, will nod or shake her head to very basic questions Course Course 0345: Discussed with Dr. Singh. Administered Medications Amlodipine Besylate (Amlodipine Besylate 5 Mg Tab) 10 mg PO QAM [facility] Stop: 01/04/21 08:59 Last Admin: 12/06/20 09:53 Dose: 10 mg Documented by: [id number] Admin: 12/05/20 11:44 Dose: Not Given Documented by: [id number] Aspirin (Aspirin 81 Mg Ectab) 81 [facility] [place] Stop: 01/04/21 08:59 Last Admin: 12/06/20 09:55 Dose: 81 mg Documented by: [id number] Admin: 12/05/20 11:44 Dose: Not Given Documented by: [id number] Diclofenac Sodium (Diclofenac Sod 1% Gel 100 Gm Tube) 2 gm EXT BID PRN PRN Reason: Pain Stop: 01/04/21 06:13 Last Admin: 12/06/20 20:56 Dose: 2 gm Documented by: [id number] Admin: 12/06/20 10:03 Dose: 2 gm Documented by: [id number] Admin: 12/06/20 03:03 Dose: 2 gm Documented by: [id number] Famotidine (Famotidine 20 Mg Tab) 20 mg PO DAILY [facility] Stop: 01/04/21 08:59 Last Admin: 12/06/20 09:53 Dose: 20 mg Documented by: [id number] Admin: 12/05/20 11:44 Dose: Not Given Documented by: [id number] Heparin Sodium (Porcine) (Heparin Sod 5,000 Unit/0.5 Ml Vial) 5,000 units SQ Q8 [facility] Stop: 01/04/21 05:59 Last Admin: 12/06/20 21:00 Dose: 5,000 units Documented by: [id number] Admin: 12/06/20 13:59 Dose: Not Given Documented by: [id number] Admin: 12/06/20 05:13 Dose: 5,000 units Documented by: [id number] Admin: 12/05/20 21:10 Dose: 5,000 units Documented by: [id number] Admin: 12/05/20 14:00 Dose: 5,000 units Documented by: [id number] Admin: 12/05/20 09:46 Dose: 5,000 units Documented by: [id number] Hydralazine HCl (Hydralazine Tab 50 Mg Tab) 100 mg PO TID [facility] Stop: 01/04/21 08:59 Last Admin: 12/06/20 20:54 Dose: 100 mg Documented by: [id number] Admin: 12/06/20 13:58 Dose: 100 mg Documented by: [id number] Admin: 12/06/20 09:51 Dose: 100 mg Documented by: [id number] Admin: 12/05/20 20:55 Dose: 100 mg Documented by: [id number] Admin: 12/05/20 14:00 Dose: 100 mg Documented by: [id number] Admin: 12/05/20 11:43 Dose: Not Given Documented by: [id number] Cefepime HCl 1,000 mg/ Syringe 11.3 mls @ 5.5 mls/min IV Q12H [facility]; Protocol Stop: 12/15/20 15:59 Last Admin: 12/06/20 17:15 Dose: 5.5 mls/min Documented by: [id number] Admin: 12/06/20 03:17 Dose: 5.5 mls/min Documented by: [id number] Admin: 12/05/20 17:17 Dose: 5.5 mls/min Documented by: [id number] Insulin Aspart (Insulin Aspart 100 Units/Ml 3 Ml Pen) 0 units SC ACHS [facility] Stop: 01/04/21 07:29 Last Admin: 12/06/20 20:54 Dose: Not Given Documented by: [id number] Cosigned by: [id number] Admin: 12/06/20 17:19 Dose: Not Given Documented by: [id number] Cosigned by: [id number] Admin: 12/06/20 12:21 Dose: Not Given Documented by: [id number] Cosigned by: [id number] Admin: 12/06/20 09:59 Dose: Not Given Documented by: [id number] Cosigned by: [id number] Admin: 12/05/20 20:54 Dose: Not Given Documented by: [id number] Admin: 12/05/20 17:19 Dose: Not Given Documented by: [id number] Admin: 12/05/20 12:23 Dose: 4 units Documented by: [id number] Cosigned by: [id number] Admin: 12/05/20 09:45 Dose: 2 units Documented by: [id number] Cosigned by: [id number] Insulin Glargine (Insulin Glargine Solostar 100 Units/Ml 3 Ml Pen) 5 units SC D AILY [facility] Stop: 01/05/21 08:59 Last Admin: 12/06/20 09:56 Dose: 5 units Documented by: [id number] Cosigned by: [id number] Isosorbide Mononitrate (Isosorbide [place] Extended Rel 60 Mg Tabcr) 120 mg PO [facility] Stop: 01/04/21 08:59 Last Admin: 12/06/20 09:53 Dose: 120 mg Documented by: [id number] Admin: 12/05/20 11:44 Dose: Not Given Documented by: [id number] Pantoprazole Sodium (Pantoprazole 40 Mg Tab) 40 mg PO [facility] Stop: 01/04/21 08:59 Last Admin: 12/06/20 09:55 Dose: 40 mg Documented by: [id number] Admin: 12/05/20 11:45 Dose: Not Given Documented by: [id number] Polyethylene Glycol (Polyethylene (Miralax) 17 Gm Pack) 17 gm PO [facility] Stop: 01/04/21 08:59 Last Admin: 12/06/20 09:56 Dose: Not Given Documented by: [id number] Admin: 12/05/20 11:44 Dose: Not Given Documented by: [id number] Discontinued Medications Dextrose (Dextrose 50% 50 Ml Syringe) 50 ml IV NOW ONE Stop: 12/05/20 03:05 Last Admin: 12/05/20 03:21 Dose: 50 ml Documented by: [id number] Dextrose/Sodium Chloride (D5w And 1/2nss) 1,000 mls @ 125 mls/hr IV .Q8H [facility] Stop: 01/04/21 00:59 Last Infusion: 12/05/20 04:58 Dose: 0 mls/hr Documented by: [id number] Admin: 12/05/20 01:03 Dose: 125 mls/hr Documented by: [id number] Ceftriaxone Sodium (Rocephin) 2,000 mg in 70 mls @ 140 mls/hr IV NOW STA Stop: 12/05/20 03:29 Last Infusion: 12/05/20 03:53 Dose: 0 mls/hr Documented by: [id number] Admin: 12/05/20 03:24 Dose: 140 mls/hr Documented by: [id number] Dextrose (D5w) 1,000 mls @ 80 mls/hr IV .[id number] [facility] Stop: 01/04/21 03:59 Last Infusion: 12/05/20 18:48 Dose: 0 mls/hr Documented by: [id number] Admin: 12/05/20 04:30 Dose: 80 mls/hr Documented by: [id number] Cefepime HCl (Maxipime) 2,000 mg in 20 mls @ 5 mls/min IV NOW STA; Protocol Stop: 12/05/20 04:25 Last Admin: 12/05/20 04:30 Dose: 5 mls/min Documented by: [id number] Naloxone HCl (Naloxone Hcl 0.4 Mg/1 Ml Vial/Carp) 0.4 mg IV NOW STA Stop: 12/05/20 03:36 Last Admin: 12/05/20 03:50 Dose: 0.4 mg Documented by: [id number] Potassium Chloride (Potassium Chloride Crtab 20 Meq Tabcr) 40 meq PO NOW STA Stop: 12/05/20 19:35 Last Admin: 12/05/20 20:55 Dose: 40 meq Documented by: [id number] Tramadol HCl (Tramadol Hcl 50 Mg Tablet) 25 - 50 mg PO Q4H PRN PRN Reason: Pain Stop: 01/04/21 19:34 Last Admin: 12/06/20 20:55 Dose: 50 mg Documented by: [id number] Admin: 12/06/20 17:11 Dose: 50 mg Documented by: [id number] Admin: 12/06/20 10:07 Dose: 50 mg Documented by: [id number] Admin: 12/06/20 03:02 Dose: 50 mg Documented by: [id number] Admin: 12/05/20 21:10 Dose: 50 mg Documented by: [id number] Critical Care Time Critical Care Time: Yes Total Critical Care Time: 40 Critical care of 42 min performed to assess and manage high likelihood of life-threatening ams, involving labs and imaging performed with assessment to evaluate ams diagnosis with frequent reassessment. This time includes bedside time, treatment discussions with patient/family/consultants, documentation time and excludes procedure time. Medical Decision Making Differential Diagnosis Differential diagnoses includes but is not limited to toxic, metabolic, infectious, traumatic, cardiac, neurologic, hematologic, psychiatric and inflammatory etiologies. Medical Records Attestation: I reviewed the patient's medical records. Home Medications Current Medication List: was personally reviewed by me Laboratory Data Attestation: I reviewed the patient's lab results. Result diagrams: 12/06/20 07:16 12/06/20 07:16 Lab Results 12/05/20 12/05/20 12/05/20 Range/Units 00:40 00:40 00:40 WBC 12.18 H (4.8-10.8) K/uL RBC 3.46 L (4.2-5.4) M/uL Hgb 10.0 L (12.0-16.0) g/dL Hct 31.2 L (37-47) % MCV 90.2 (80-100) fL MCH 28.9 (25-34) pg MCHC 32.1 (32-36) g/dL RDW Std Deviation 46.4 H (36.4-46.3) fL RDW Coeff of Isabel 14.1 (11.5-14.5) % Plt Count 187 (130-400) K/uL MPV 10.1 (7.4-10.4) fL Immature Gran % (Auto) 0.4 % Neut % (Auto) 68.8 % Lymph % (Auto) 22.8 % [place] % (Auto) 6.2 % Eos % (Auto) 1.6 % Baso % (Auto) 0.2 % Neut # (Auto) 8.39 H (1.4-6.5) K/uL Lymph # (Auto) 2.78 (1.2-3.4) K/uL [place] # (Auto) 0.75 H (0.11-0.59) K/uL Eos # (Auto) 0.19 (0-0.5) K/uL Baso # (Auto) 0.02 (0-0.2) K/uL Immature Gran # (Auto) 0.05 H (0.00-0.02) K/uL PT 10.3 (9.0-12.0) Seconds INR 1.0 (0.9-1.1) ABG pH (7.35-7.45) ABG pCO2 (35-46) mmHg ABG pO2 (80-95) mmHg ABG HCO3 (19-24) mmol/L ABG O2 Saturation (90-95) % ABG Base Excess (-9-1.8) mEq/L Edwin Test (Pos) Barometric Pressure mm/Hg Oxygen Given Sodium 142 (136-145) mmol/L Potassium 3.2 L (3.5-5.1) mmol/L Chloride 108 H (98-107) mmol/L Carbon Dioxide 28 (21-32) mmol/L Anion Gap 5.0 (3-11) BUN 29 H (7-18) mg/dl Creatinine 1.56 H (0.6-1.2) mg/dl Est Cr Clr Drug Dosing 39.4 ml/min Est GFR ( Amer) 37.3 Est GFR (Non-Af Amer) 32.2 BUN/Creatinine Ratio 18.7 (10-20) Glucose 77 (70-99) mg/dl POC Glucose (70-99) mg/dl Estimat Average Glucose mg/dl Hemoglobin A1c (4.5-5.6) % Calcium 8.2 L (8.5-10.1) mg/dl Magnesium 2.3 (1.8-2.4) mg/dl Total Bilirubin 0.4 (0.2-1) mg/dl AST 23 (15-37) U/L ALT 19 (12-78) U/L Alkaline Phosphatase 68 (45-117) U/L Ammonia (11-32) umol/L Troponin I < 0.015 (0-0.045) ng/ml NT-Pro-B Natriuret Pep 1220 H (0-900) pg/ml Total Protein 6.9 (6.4-8.2) gm/dl Albumin 3.0 L (3.4-5.0) gm/dl Globulin 3.9 (2.5-4.0) gm/dl Albumin/Globulin Ratio 0.8 L (0.9-2) Lipase 60 L (73-393) U/L Procalcitonin (0-0.5) ng/ml TSH 0.264 L (0.300-4.500) uIu/ml Free T4 0.96 (0.8-1.6) ng/dl Urine Color Urine Appearance (Clear) Urine pH (4.5-7.5) Ur Specific [place] (1.000-1.030) Urine Protein (Negative) Urine Glucose (UA) (Negative) Urine Ketones (Negative) Urine Blood (Negative) Urine Nitrite (Negative) Urine Bilirubin (Negative) Urine Urobilinogen (Negative) Ur Leukocyte Esterase (Negative) Urine WBC (Auto) (0-5) /hpf Urine RBC (Auto) (0-4) /hpf U Hyaline Cast (Auto) (0-5) /lpf U Epithel Cells (Auto) (0-5) /lpf Urine Bacteria (Auto) (Negative) Urine Opiates Screen (Neg) Ur Methadone, Qual (Neg) Urine Barbiturates (Neg) Ur Phencyclidine (PCP) (Neg) U Amphetamin/Meth Scrn (Neg) MDMA (Ecstasy) Screen (Neg) U Benzodiazepines Scrn (Neg) Ur Cocaine Metabolite (Neg) U Marijuana (THC) Screen (Neg) Ethyl Alcohol mg/dL (0-3) mg/dl Lyme Disease IgG Ab (Negative) Lyme Disease IgM Ab (Negative) COVID-19 Eval Order SARS-CoV-2 (PCR) (Negative) Influenza Type A (PCR) (Neg) Influenza Type B (PCR) (Neg) RSV (RT-PCR) (Neg) 12/05/20 12/05/20 12/05/20 Range/Units 00:41 01:05 01:05 WBC (4.8-10.8) K/uL RBC (4.2-5.4) M/uL Hgb (12.0-16.0) g/dL Hct (37-47) % MCV (80-100) fL MCH (25-34) pg MCHC (32-36) g/dL RDW Std Deviation (36.4-46.3) fL RDW Coeff of Isabel (11.5-14.5) % Plt Count (130-400) K/uL MPV (7.4-10.4) fL Immature Gran % (Auto) % Neut % (Auto) % Lymph % (Auto) % [place] % (Auto) % Eos % (Auto) % Baso % (Auto) % Neut # (Auto) (1.4-6.5) K/uL Lymph # (Auto) (1.2-3.4) K/uL [place] # (Auto) (0.11-0.59) K/uL Eos # (Auto) (0-0.5) K/uL Baso # (Auto) (0-0.2) K/uL Immature Gran # (Auto) (0.00-0.02) K/uL PT (9.0-12.0) Seconds INR (0.9-1.1) ABG pH (7.35-7.45) ABG pCO2 (35-46) mmHg ABG pO2 (80-95) mmHg ABG HCO3 (19-24) mmol/L ABG O2 Saturation (90-95) % ABG Base Excess (-9-1.8) mEq/L Edwin Test (Pos) Barometric Pressure mm/Hg Oxygen Given Sodium (136-145) mmol/L Potassium (3.5-5.1) mmol/L Chloride (98-107) mmol/L Carbon Dioxide (21-32) mmol/L Anion Gap (3-11) BUN (7-18) mg/dl Creatinine (0.6-1.2) mg/dl Est Cr Clr Drug Dosing ml/min Est GFR ( Amer) Est GFR (Non-Af Amer) BUN/Creatinine Ratio (10-20) Glucose (70-99) mg/dl POC Glucose 77 (70-99) mg/dl Estimat Average Glucose mg/dl Hemoglobin A1c (4.5-5.6) % Calcium (8.5-10.1) mg/dl Magnesium (1.8-2.4) mg/dl Total Bilirubin (0.2-1) mg/dl AST (15-37) U/L ALT (12-78) U/L Alkaline Phosphatase (45-117) U/L Ammonia (11-32) umol/L Troponin I (0-0.045) ng/ml NT-Pro-B Natriuret Pep (0-900) pg/ml Total Protein (6.4-8.2) gm/dl Albumin (3.4-5.0) gm/dl Globulin (2.5-4.0) gm/dl Albumin/Globulin Ratio (0.9-2) Lipase (73-393) U/L Procalcitonin (0-0.5) ng/ml TSH (0.300-4.500) uIu/ml Free T4 (0.8-1.6) ng/dl Urine Color Urine Appearance (Clear) Urine pH (4.5-7.5) Ur Specific [place] (1.000-1.030) Urine Protein (Negative) Urine Glucose (UA) (Negative) Urine Ketones (Negative) Urine Blood (Negative) Urine Nitrite (Negative) Urine Bilirubin (Negative) Urine Urobilinogen (Negative) Ur Leukocyte Esterase (Negative) Urine WBC (Auto) (0-5) /hpf Urine RBC (Auto) (0-4) /hpf U Hyaline Cast (Auto) (0-5) /lpf U Epithel Cells (Auto) (0-5) /lpf Urine Bacteria (Auto) (Negative) Urine Opiates Screen (Neg) Ur Methadone, Qual (Neg) Urine Barbiturates (Neg) Ur Phencyclidine (PCP) (Neg) U Amphetamin/Meth Scrn (Neg) MDMA (Ecstasy) Screen (Neg) U Benzodiazepines Scrn (Neg) Ur Cocaine Metabolite (Neg) U Marijuana (THC) Screen (Neg) Ethyl Alcohol mg/dL (0-3) mg/dl Lyme Disease IgG Ab (Negative) Lyme Disease IgM Ab (Negative) COVID-19 Eval Order CovFluRsv at [facility] SARS-CoV-2 (PCR) NEGATIVE (Negative) Influenza Type A (PCR) Negative (Neg) Influenza Type B (PCR) Negative (Neg) RSV (RT-PCR) Negative (Neg) 12/05/20 12/05/20 12/05/20 Range/Units 01:17 01:17 01:17 WBC (4.8-10.8) K/uL RBC (4.2-5.4) M/uL Hgb (12.0-16.0) g/dL Hct (37-47) % MCV (80-100) fL MCH (25-34) pg MCHC (32-36) g/dL RDW Std Deviation (36.4-46.3) fL RDW Coeff of Isabel (11.5-14.5) % Plt Count (130-400) K/uL MPV (7.4-10.4) fL Immature Gran % (Auto) % Neut % (Auto) % Lymph % (Auto) % [place] % (Auto) % Eos % (Auto) % Baso % (Auto) % Neut # (Auto) (1.4-6.5) K/uL Lymph # (Auto) (1.2-3.4) K/uL [place] # (Auto) (0.11-0.59) K/uL Eos # (Auto) (0-0.5) K/uL Baso # (Auto) (0-0.2) K/uL Immature Gran # (Auto) (0.00-0.02) K/uL PT (9.0-12.0) Seconds INR (0.9-1.1) ABG pH 7.35 (7.35-7.45) ABG pCO2 51 H (35-46) mmHg ABG pO2 86 (80-95) mmHg ABG HCO3 27 H (19-24) mmol/L ABG O2 Saturation 96.3 H (90-95) % ABG Base Excess 1.4 (-9-1.8) mEq/L Edwin Test POS (Pos) Barometric Pressure 731.3 mm/Hg Oxygen Given ROOM AIR Sodium (136-145) mmol/L Potassium (3.5-5.1) mmol/L Chloride (98-107) mmol/L Carbon Dioxide (21-32) mmol/L Anion Gap (3-11) BUN (7-18) mg/dl Creatinine (0.6-1.2) mg/dl Est Cr Clr Drug Dosing ml/min Est GFR ( Amer) Est GFR (Non-Af Amer) BUN/Creatinine Ratio (10-20) Glucose (70-99) mg/dl POC Glucose (70-99) mg/dl Estimat Average Glucose mg/dl Hemoglobin A1c (4.5-5.6) % Calcium (8.5-10.1) mg/dl Magnesium (1.8-2.4) mg/dl Total Bilirubin (0.2-1) mg/dl AST (15-37) U/L ALT (12-78) U/L Alkaline Phosphatase (45-117) U/L Ammonia 18.0 (11-32) umol/L Troponin I (0-0.045) ng/ml NT-Pro-B Natriuret Pep (0-900) pg/ml Total Protein (6.4-8.2) gm/dl Albumin (3.4-5.0) gm/dl Globulin (2.5-4.0) gm/dl Albumin/Globulin Ratio (0.9-2) Lipase (73-393) U/L Procalcitonin (0-0.5) ng/ml TSH (0.300-4.500) uIu/ml Free T4 (0.8-1.6) ng/dl Urine Color Urine Appearance (Clear) Urine pH (4.5-7.5) Ur Specific [place] (1.000-1.030) Urine Protein (Negative) Urine Glucose (UA) (Negative) Urine Ketones (Negative) Urine Blood (Negative) Urine Nitrite (Negative) Urine Bilirubin (Negative) Urine Urobilinogen (Negative) Ur Leukocyte Esterase (Negative) Urine WBC (Auto) (0-5) /hpf Urine RBC (Auto) (0-4) /hpf U Hyaline Cast (Auto) (0-5) /lpf U Epithel Cells (Auto) (0-5) /lpf Urine Bacteria (Auto) (Negative) Urine Opiates Screen (Neg) Ur Methadone, Qual (Neg) Urine Barbiturates (Neg) Ur Phencyclidine (PCP) (Neg) U Amphetamin/Meth Scrn (Neg) MDMA (Ecstasy) Screen (Neg) U Benzodiazepines Scrn (Neg) Ur Cocaine Metabolite (Neg) U Marijuana (THC) Screen (Neg) Ethyl Alcohol mg/dL < 3.0 (0-3) mg/dl Lyme Disease IgG Ab (Negative) Lyme Disease IgM Ab (Negative) COVID-19 Eval Order SARS-CoV-2 (PCR) (Negative) Influenza Type A (PCR) (Neg) Influenza Type B (PCR) (Neg) RSV (RT-PCR) (Neg) 12/05/20 12/05/20 12/05/20 Range/Units 01:17 01:17 01:17 WBC (4.8-10.8) K/uL RBC (4.2-5.4) M/uL Hgb (12.0-16.0) g/dL Hct (37-47) % MCV (80-100) fL MCH (25-34) pg MCHC (32-36) g/dL RDW Std Deviation (36.4-46.3) fL RDW Coeff of Isabel (11.5-14.5) % Plt Count (130-400) K/uL MPV (7.4-10.4) fL Immature Gran % (Auto) % Neut % (Auto) % Lymph % (Auto) % [place] % (Auto) % Eos % (Auto) % Baso % (Auto) % Neut # (Auto) (1.4-6.5) K/uL Lymph # (Auto) (1.2-3.4) K/uL [place] # (Auto) (0.11-0.59) K/uL Eos # (Auto) (0-0.5) K/uL Baso # (Auto) (0-0.2) K/uL Immature Gran # (Auto) (0.00-0.02) K/uL PT (9.0-12.0) Seconds INR (0.9-1.1) ABG pH (7.35-7.45) ABG pCO2 (35-46) mmHg ABG pO2 (80-95) mmHg ABG HCO3 (19-24) mmol/L ABG O2 Saturation (90-95) % ABG Base Excess (-9-1.8) mEq/L Edwin Test (Pos) Barometric Pressure mm/Hg Oxygen Given Sodium (136-145) mmol/L Potassium (3.5-5.1) mmol/L Chloride (98-107) mmol/L Carbon Dioxide (21-32) mmol/L Anion Gap (3-11) BUN (7-18) mg/dl Creatinine (0.6-1.2) mg/dl Est Cr Clr Drug Dosing ml/min Est GFR ( Amer) Est GFR (Non-Af Amer) BUN/Creatinine Ratio (10-20) Glucose (70-99) mg/dl POC Glucose (70-99) mg/dl Estimat Average Glucose 151 mg/dl Hemoglobin A1c 6.9 H (4.5-5.6) % Calcium (8.5-10.1) mg/dl Magnesium (1.8-2.4) mg/dl Total Bilirubin (0.2-1) mg/dl AST (15-37) U/L ALT (12-78) U/L Alkaline Phosphatase (45-117) U/L Ammonia (11-32) umol/L Troponin I (0-0.045) ng/ml NT-Pro-B Natriuret Pep (0-900) pg/ml Total Protein (6.4-8.2) gm/dl Albumin (3.4-5.0) gm/dl Globulin (2.5-4.0) gm/dl Albumin/Globulin Ratio (0.9-2) Lipase (73-393) U/L Procalcitonin < 0.05 (0-0.5) ng/ml TSH (0.300-4.500) uIu/ml Free T4 (0.8-1.6) ng/dl Urine Color Urine Appearance (Clear) Urine pH (4.5-7.5) Ur Specific [place] (1.000-1.030) Urine Protein (Negative) Urine Glucose (UA) (Negative) Urine Ketones (Negative) Urine Blood (Negative) Urine Nitrite (Negative) Urine Bilirubin (Negative) Urine Urobilinogen (Negative) Ur Leukocyte Esterase (Negative) Urine WBC (Auto) (0-5) /hpf Urine RBC (Auto) (0-4) /hpf U Hyaline Cast (Auto) (0-5) /lpf U Epithel Cells (Auto) (0-5) /lpf Urine Bacteria (Auto) (Negative) Urine Opiates Screen (Neg) Ur Methadone, Qual (Neg) Urine Barbiturates (Neg) Ur Phencyclidine (PCP) (Neg) U Amphetamin/Meth Scrn (Neg) MDMA (Ecstasy) Screen (Neg) U Benzodiazepines Scrn (Neg) Ur Cocaine Metabolite (Neg) U Marijuana (THC) Screen (Neg) Ethyl Alcohol mg/dL (0-3) mg/dl Lyme Disease IgG Ab Negative (Negative) Lyme Disease IgM Ab Negative (Negative) COVID-19 Eval Order SARS-CoV-2 (PCR) (Negative) Influenza Type A (PCR) (Neg) Influenza Type B (PCR) (Neg) RSV (RT-PCR) (Neg) 12/05/20 12/05/20 12/05/20 Range/Units 01:49 02:00 02:00 WBC (4.8-10.8) K/uL RBC (4.2-5.4) M/uL Hgb (12.0-16.0) g/dL Hct (37-47) % MCV (80-100) fL MCH (25-34) pg MCHC (32-36) g/dL RDW Std Deviation (36.4-46.3) fL RDW Coeff of Isabel (11.5-14.5) % Plt Count (130-400) K/uL MPV (7.4-10.4) fL Immature Gran % (Auto) % Neut % (Auto) % Lymph % (Auto) % [place] % (Auto) % Eos % (Auto) % Baso % (Auto) % Neut # (Auto) (1.4-6.5) K/uL Lymph # (Auto) (1.2-3.4) K/uL [place] # (Auto) (0.11-0.59) K/uL Eos # (Auto) (0-0.5) K/uL Baso # (Auto) (0-0.2) K/uL Immature Gran # (Auto) (0.00-0.02) K/uL PT (9.0-12.0) Seconds INR (0.9-1.1) ABG pH (7.35-7.45) ABG pCO2 (35-46) mmHg ABG pO2 (80-95) mmHg ABG HCO3 (19-24) mmol/L ABG O2 Saturation (90-95) % ABG Base Excess (-9-1.8) mEq/L Edwin Test (Pos) Barometric Pressure mm/Hg Oxygen Given Sodium (136-145) mmol/L Potassium (3.5-5.1) mmol/L Chloride (98-107) mmol/L Carbon Dioxide (21-32) mmol/L Anion Gap (3-11) BUN (7-18) mg/dl Creatinine (0.6-1.2) mg/dl Est Cr Clr Drug Dosing ml/min Est GFR ( Amer) Est GFR (Non-Af Amer) BUN/Creatinine Ratio (10-20) Glucose (70-99) mg/dl POC Glucose 65 L* (70-99) mg/dl Estimat Average Glucose mg/dl Hemoglobin A1c (4.5-5.6) % Calcium (8.5-10.1) mg/dl Magnesium (1.8-2.4) mg/dl Total Bilirubin (0.2-1) mg/dl AST (15-37) U/L ALT (12-78) U/L Alkaline Phosphatase (45-117) U/L Ammonia (11-32) umol/L Troponin I (0-0.045) ng/ml NT-Pro-B Natriuret Pep (0-900) pg/ml Total Protein (6.4-8.2) gm/dl Albumin (3.4-5.0) gm/dl Globulin (2.5-4.0) gm/dl Albumin/Globulin Ratio (0.9-2) Lipase (73-393) U/L Procalcitonin (0-0.5) ng/ml TSH (0.300-4.500) uIu/ml Free T4 (0.8-1.6) ng/dl Urine Color Yellow Urine Appearance Clear (Clear) Urine pH 5.0 (4.5-7.5) Ur Specific [place] 1.010 (1.000-1.030) Urine Protein Negative (Negative) Urine Glucose (UA) Negative (Negative) Urine Ketones Negative (Negative) Urine Blood Negative (Negative) Urine Nitrite Positive A (Negative) Urine Bilirubin Negative (Negative) Urine Urobilinogen Negative (Negative) Ur Leukocyte Esterase Trace H (Negative) Urine WBC (Auto) 1-5 (0-5) /hpf Urine RBC (Auto) 0-4 (0-4) /hpf U Hyaline Cast (Auto) 0 (0-5) /lpf U Epithel Cells (Auto) 0-5 (0-5) /lpf Urine Bacteria (Auto) 1+ H (Negative) Urine Opiates Screen Neg (Neg) Ur Methadone, Qual Neg (Neg) Urine Barbiturates Neg (Neg) Ur Phencyclidine (PCP) Neg (Neg) U Amphetamin/Meth Scrn Neg (Neg) MDMA (Ecstasy) Screen Neg (Neg) U Benzodiazepines Scrn Neg (Neg) Ur Cocaine Metabolite Neg (Neg) U Marijuana (THC) Screen Neg (Neg) Ethyl Alcohol mg/dL (0-3) mg/dl Lyme Disease IgG Ab (Negative) Lyme Disease IgM Ab (Negative) COVID-19 Eval Order SARS-CoV-2 (PCR) (Negative) Influenza Type A (PCR) (Neg) Influenza Type B (PCR) (Neg) RSV (RT-PCR) (Neg) 12/05/20 Range/Units 03:38 WBC (4.8-10.8) K/uL RBC (4.2-5.4) M/uL Hgb (12.0-16.0) g/dL Hct (37-47) % MCV (80-100) fL MCH (25-34) pg MCHC (32-36) g/dL RDW Std Deviation (36.4-46.3) fL RDW Coeff of Isabel (11.5-14.5) % Plt Count (130-400) K/uL MPV (7.4-10.4) fL Immature Gran % (Auto) % Neut % (Auto) % Lymph % (Auto) % [place] % (Auto) % Eos % (Auto) % Baso % (Auto) % Neut # (Auto) (1.4-6.5) K/uL Lymph # (Auto) (1.2-3.4) K/uL [place] # (Auto) (0.11-0.59) K/uL Eos # (Auto) (0-0.5) K/uL Baso # (Auto) (0-0.2) K/uL Immature Gran # (Auto) (0.00-0.02) K/uL PT (9.0-12.0) Seconds INR (0.9-1.1) ABG pH (7.35-7.45) ABG pCO2 (35-46) mmHg ABG pO2 (80-95) mmHg ABG HCO3 (19-24) mmol/L ABG O2 Saturation (90-95) % ABG Base Excess (-9-1.8) mEq/L Edwin Test (Pos) Barometric Pressure mm/Hg Oxygen Given Sodium (136-145) mmol/L Potassium (3.5-5.1) mmol/L Chloride (98-107) mmol/L Carbon Dioxide (21-32) mmol/L Anion Gap (3-11) BUN (7-18) mg/dl Creatinine (0.6-1.2) mg/dl Est Cr Clr Drug Dosing ml/min Est GFR ( Amer) Est GFR (Non-Af Amer) BUN/Creatinine Ratio (10-20) Glucose (70-99) mg/dl POC Glucose 113 H (70-99) mg/dl Estimat Average Glucose mg/dl Hemoglobin A1c (4.5-5.6) % Calcium (8.5-10.1) mg/dl Magnesium (1.8-2.4) mg/dl Total Bilirubin (0.2-1) mg/dl AST (15-37) U/L ALT (12-78) U/L Alkaline Phosphatase (45-117) U/L Ammonia (11-32) umol/L Troponin I (0-0.045) ng/ml NT-Pro-B Natriuret Pep (0-900) pg/ml Total Protein (6.4-8.2) gm/dl Albumin (3.4-5.0) gm/dl Globulin (2.5-4.0) gm/dl Albumin/Globulin Ratio (0.9-2) Lipase (73-393) U/L Procalcitonin (0-0.5) ng/ml TSH (0.300-4.500) uIu/ml Free T4 (0.8-1.6) ng/dl Urine Color Urine Appearance (Clear) Urine pH (4.5-7.5) Ur Specific [place] (1.000-1.030) Urine Protein (Negative) Urine Glucose (UA) (Negative) Urine Ketones (Negative) Urine Blood (Negative) Urine Nitrite (Negative) Urine Bilirubin (Negative) Urine Urobilinogen (Negative) Ur Leukocyte Esterase (Negative) Urine WBC (Auto) (0-5) /hpf Urine RBC (Auto) (0-4) /hpf U Hyaline Cast (Auto) (0-5) /lpf U Epithel Cells (Auto) (0-5) /lpf Urine Bacteria (Auto) (Negative) Urine Opiates Screen (Neg) Ur Methadone, Qual (Neg) Urine Barbiturates (Neg) Ur Phencyclidine (PCP) (Neg) U Amphetamin/Meth Scrn (Neg) MDMA (Ecstasy) Screen (Neg) U Benzodiazepines Scrn (Neg) Ur Cocaine Metabolite (Neg) U Marijuana (THC) Screen (Neg) Ethyl Alcohol mg/dL (0-3) mg/dl Lyme Disease IgG Ab (Negative) Lyme Disease IgM Ab (Negative) COVID-19 Eval Order SARS-CoV-2 (PCR) (Negative) Influenza Type A (PCR) (Neg) Influenza Type B (PCR) (Neg) RSV (RT-PCR) (Neg) Imaging Data My Impression: X-ray: I interpreted the following studies. Chest: A single view study of the chest was reviewed and was negative for cardiomegaly, focal infiltrate, effusion, pulmonary edema, or wide mediastinum. Slightly increased interstitial markings bilaterally. Radiologist's Impression: Chest X-Ray 12/05/20 00:55 XR chest 1V portable HISTORY: 75 years-old Female ams . Acutely altered mental status COMPARISON: Chest radiograph 10/27/2020, CTA chest 04/24/2019 TECHNIQUE: Portable AP view of the chest FINDINGS: Cardiac silhouette is enlarged. No pneumothorax or large pleural effusion. Thickening of the interstitium is noted with ill-defined patchy bilateral airspace opacities. Mitral annular calcifications. Degenerative changes of the shoulders and spine. Cholecystectomy. IMPRESSION: Cardiomegaly with right greater than left bilateral pulmonary opacities suggestive of suspicious for pneumonia. Asymmetric pulmonary edema could appear similarly. ACT 112: Negative or not required by law. The above report was generated using voice recognition software. It may contain grammatical, syntax or spelling errors. Electronically signed by: Jatin Gorman M.D. 12/05/2020 6:[address] 12/05/20 00:55 CT OF THE HEAD WITHOUT CONTRAST CLINICAL HISTORY: Altered mental status. COMPARISON STUDY: Head CT August 16, 2020. CT DOSE: 537.48 mGy.cm TECHNIQUE: Helical axial images of the head were obtained without IV contrast. Automated exposure control was utilized for the study. A dose lowering technique was utilized adhering to the principles of ALARA. FINDINGS: No acute intracranial hemorrhage, midline shift or mass effect is present. The ventricular system is unremarkable. The basal cisterns are patent. No extra-axial collections are present. There are no findings to suggest acute dural sinus thrombosis or acute territorial infarct. No significant calvarial abnormalities are present. Small amount of fluid within the right mastoid air cells is noted. IMPRESSION: No acute intracranial findings. ACT 112: Negative or not required by law. Electronically signed by: Stef Dennis M.D. 12/05/2020 7:[address] head: Comparison 08/16/2020. No acute intracranial hemorrhage, edema or mass. No extra-axial fluid collection. No calvarial fracture. Mild right mastoiditis. Visualized orbits and sinuses are unremarkable. Posttraumatic or degenerative changes of the left temporomandibular joint, incompletely visualized. Radiologist: Jayson Galindo MD ECG Data Attestation: I personally reviewed and interpreted this ECG as follows: Indication: + altered mental status Rate (beats per minute): 42 Rhythm: + sinus bradycardia ECG Intervals/blocks: + First degree AV block, + Normal QRS and + Normal QT ECG [place]: + Normal ECG ST segments: + Nonspecific ST abnormalities MDM Narrative This is a 75 yo female who presents with AMS of unknown chronicity. Pt minimally arousable and somnolent. VS stable. Patient bradycardic throughout however pt's family had reported to EMS this is chronic. No evidence of heart block. Pt appeared clinically dehydrated. Labs reassuring. Cr elevated but stable compared to prior. TSH abnormal but T4 normal. No fever or hypothermia. UTI with possible suggestion of evolving UTI which has caused acute encephalopathy previously on admissions. After review of cultures, antibiotics ordered. Pt hydrated, CT head performed. NO ICH, mass, CVA. CXR reassuring. No obvious focal deficit on a limited exam. Pt with persistent hypoglycemia and was given dextrose here as well as a dextrose containing maintenance fluid. Narcan also given as opiates were on pt's med list. No improvement. No evidence of bacteremia/sepsis. At this time I do not suspect cardiac etiology, MAGGIE, electrolyte derangement, or myxedema coma contributing to AMS. Anemia chronic. Mild hypercapnia noted, unclear if contributing, more likely chronic given body habitus and reassuring pH. Case discussed with hospitalist. Most likely UTI and hypoglycemia contributing to encephalopathy at this time. Pt's did show some improvement while in the ER with improved glucose checks. An order was placed for continuous cardiac monitoring. The monitor shows a rate of _42__ with _sinus bradycardia_ rhythm. Impression & Plan Hypoglycemia, Bradycardia, Encephalopathy acute, CKD (chronic kidney disease), Morbid obesity Discharge Plan Visit Data Chief Complaint: Hypoglycemia Stated Complaint: UNRESPONSIVE ED Provider: Imelda Fields Discharge Problem: Hypoglycemia, Bradycardia, Encephalopathy acute, CKD (chronic kidney disease), Morbid obesity Patient Disposition: Admitted As Inpatient Discharge Instructions Interventions: ED Discharge Assessment Last Done: 12/05/20 05:15 Discharge Problem: CKD (chronic kidney disease) Qualifiers: Chronic kidney disease stage: unspecified stage Qualified Code(s): N18.9 - Chronic kidney disease, unspecified
[2020-12-05] MEDS ORDERED: D5W AND 1/2NSS 1,000 ML IV SCH (01:00)
[2020-12-05 01:07] LABS: Basophils # (auto) 0.02 K/uL (0-0.2); Basophils % (auto) 0.2 %; Eosinophils # (auto) 0.19 K/uL (0-0.5); Eosinophils % (auto) 1.6 %; Hematocrit (blood only) 31.2 % (37-47); Immature Granulocytes # (auto) 0.05 K/uL (0.00-0.02); Immature Granulocytes % (auto) 0.4 %; Lymphocytes # (auto) 2.78 K/uL (1.2-3.4); Lymphocytes % (auto) 22.8 %; Mean Corpuscular Hemoglobin 28.9 pg (25-34); Mean Corpuscular Hgb Conc 32.1 g/dL (32-36); Mean Corpuscular Volume 90.2 fL (80-100); Mean Platelet Volume 10.1 fL (7.4-10.4); Monocytes # (auto) 0.75 K/uL (0.11-0.59); Monocytes % (auto) 6.2 %; Neutrophils # (auto) 8.39 K/uL (1.4-6.5); Neutrophils % (auto) 68.8 %; Platelet Count 187 K/uL (130-400); RDW Coefficient of Variation 14.1 % (11.5-14.5); RDW Standard Deviation 46.4 fL (36.4-46.3); Red Blood Count 3.46 M/uL (4.2-5.4); White Blood Count 12.18 K/uL (4.8-10.8)
[2020-12-05 01:16] LABS: Prothrombin Time 10.3 Seconds (9.0-12.0)
[2020-12-05 01:22] LABS: Alanine Aminotransferase 19 U/L (12-78); Aspartate Aminotransferase 23 U/L (15-37); BUN Creatinine Ratio 18.7 (10-20); Blood Urea Nitrogen 29 mg/dl (7-18); Calcium 8.2 mg/dl (8.5-10.1); Carbon Dioxide 28 mmol/L (21-32); Chloride 108 mmol/L (98-107); Creatinine Clr Calc Pharmacy 39.4 ml/min; Est GFR (African American) 37.3; Est GFR (Non-African American) 32.2; Glucose 77 mg/dl (70-99); Lipase 60 U/L (73-393); Magnesium 2.3 mg/dl (1.8-2.4); Potassium 3.2 mmol/L (3.5-5.1); Sodium 142 mmol/L (136-145)
[2020-12-05 01:33] LABS: Albumin Globulin Ratio 0.8 (0.9-2); Alkaline Phosphatase 68 U/L (45-117); Bilirubin,Total 0.4 mg/dl (0.2-1); Globulin 3.9 gm/dl (2.5-4.0); NT Pro B Type Natriuretic Pept 1220 pg/ml (0-900); Thyroid Stimulating Hormone 0.264 uIu/ml (0.300-4.500); Total Protein 6.9 gm/dl (6.4-8.2); Troponin I < 0.015 ng/ml (0-0.045)
[2020-12-05 01:35] LABS: Base Excess ABG 1.4 mEq/L (-9-1.8); HCO3 ABG 27 mmol/L (19-24); Oxygen Saturation ABG 96.3 % (90-95); PCO2 ABG 51 mmHg (35-46); PO2 ABG 86 mmHg (80-95); pH ABG 7.35 (7.35-7.45)
[2020-12-05 01:41] LABS: Allen Test POS (Pos)
[2020-12-05 01:45] LABS: T4 Free Thyroxine 0.96 ng/dl (0.8-1.6)
[2020-12-05 02:17] LABS: Appearance Urine Clear (Clear); Bacteria Urine Automated 1+ (Negative); Bilirubin Urine Negative (Negative); Blood Urine Negative (Negative); Cast Urine Automated 0 /lpf (0-5); Color Urine Yellow; Epithelial Cell Urine Auto 0-5 /lpf (0-5); Glucose Urine UA Negative (Negative); Ketones Urine Negative (Negative); Leukocyte Esterase Urine Trace (Negative); Nitrite Urine Positive (Negative); Protein Urine Negative (Negative); RBC Urine Automated 0-4 /hpf (0-4); Urobilinogen Urine Negative (Negative)
[2020-12-05 02:18] LABS: Influenza A virus by PCR Negative (Neg); Influenza B virus by PCR Negative (Neg); RSV by PCR Negative (Neg); SARS CoV2 RNA(COVID-19) InHosp NEGATIVE (Negative)
[2020-12-05] MEDS ORDERED: cefTRIAXone SODIUM 2,000 MG/70 ML BAG IV STA (03:00)
[2020-12-05] MEDS ORDERED: DEXTROSE 50% 50 ML SYRINGE IV ONE (03:04)
[2020-12-05] MEDS ORDERED: NALOXONE HCL 0.4 MG/1 ML VIAL/CARP IV STA (03:35)
[2020-12-05] MEDS ORDERED: DEXTROSE 5% 1,000 ML IV SCH (04:00)
--- NOTE | 2020-12-05 04:12 | History & Physical Report ---
Date of Service December 05, 2020 Assessment & Plan (1) Encephalopathy acute: Multifactorial : Recurrent UTIs, no sepsis for now Hypoglycemia, DM2 insulin requiring, well-controlled as of recent hemoglobin A1c of 6.05 August 2020 RTC Neuropsychotropic, narcotic medications Bradycardia secondary to cardiac medications chronic diastolic heart failure (EF of 60-65% TTE 2018), some congestion on CXR c hx CAD hypertension, slightly elevated CRI, creatinine better than baseline chronic anemia, hemoglobin at baseline Possible functional disability Medical telemetry Follow urine cultures, Cefepime D5 water until BSG greater than 140, appropriate to hold basal insulin for now, ISS BG goal [id number], update hemoglobin A1c Appropriate to hold [id number] neuropsychotropic, narcotic medications for now until mentation back to baseline Hold home beta-jaquan, clonidine, Terazosin for now until bradycardia resolved PT OT eval DVT prophylaxis. Heparin subcu Full code Attempted to contact patient's sister over the phone (Ms. Jaz Paez, contact #[phone]) to obtain additional information and to discuss plan of care. No answer. Will request AM provider to re-attempt contact. Text document was generated using [employer] voice recognition software. It may contain grammatical or spelling errors. Kindly contact undersigned for clarification of any documentation item in question. History of Present Illness Chief Complaint: Confusion, low blood sugar as per records Primary Care Provider: Eric Bullock, History obtained from patient and records. Limited history from patient secondary to lethargy and disorientation. Medical history significant for chronic diastolic heart failure (EF of 60-65% TTE 2018), CAD as per records, hypertension, DM2, insulin-requiring, CRI (baseline creatinine 1.7-2), chronic anemia (baseline hemoglobin of 10), recurrent UTIs, anxiety/mood disorder, chronic pain. Last confinement July 2020 encephalopathy secondary to E. coli UTI. Patient noted to be confused, minimally responsive by family yesterday. Difficult to arouse. Patient looked very tired. Patient denies headache, chest pain, cough, shortness of breath, abdominal pain, dysuria, diarrhea symptoms. Usual chronic right-sided ear pain without discharge and chronic back pain. Patient noted to be hypoglycemic upon arrival of EMS. Dextrose administered by EMS at home. Patient brought to the ER for evaluation. IV ceftriaxone given for UTI. MEDICAL HISTORY: As above. SURGERIES: Hernia repair, , hysterectomy, cholecystectomy. FAMILY HISTORY: Heart disease. [place]'s chorea PERSONAL AND SOCIAL HISTORY: Nonsmoker. No chronic intake of alcoholic beverages. Lives with sisters. Allergies Allergy/AdvReac Type Severity Reaction Status Date / Time loratadine Allergy Intermediate MOUTH Verified 12/05/20 01:43 SWELLING diphenhydramine AdvReac Intermediate GMG-SHAKING Verified 12/05/20 01:43 [From Benadryl] & SWEATING metformin AdvReac Intermediate causes Verified 12/05/20 04:04 kidney problems Sulfa (Sulfonamide AdvReac Intermediate Unknown Verified 12/05/20 01:43 Antibiotics) sulfamethoxazole AdvReac Intermediate GMG-RENAL Verified 12/05/20 01:43 COMPLICATIONS trimethoprim AdvReac Intermediate GMG-RENAL Verified 12/05/20 01:43 COMPLICATIONS Qmtdwyw-Obi-Yyu Reductase AdvReac Mild Gastrointestinal Verified 12/05/20 04:06 Inhibitor Upset Home Medications Medication Instructions Recorded Confirmed Type Lantus Solostar U-100 Insulin 20 unit SUBCUT BID 02/14/19 12/05/20 History amlodipine 10 mg PO QAM 02/14/19 12/05/20 History aspirin 81 mg PO QAM 02/14/19 12/05/20 History carvedilol 12.5 mg PO AMPM 02/14/19 12/05/20 History cholecalciferol (vitamin D3) 1,000 unit PO DAILY 02/14/19 12/05/20 History [Vitamin D3] fluticasone propionate 2 spray INTRANASAL QAM 02/14/19 12/05/20 History gabapentin 300 mg PO TID 02/14/19 12/05/20 History hydralazine 100 mg PO TID 02/14/19 12/05/20 History insulin lispro [Humalog KwikPen 10 unit SUBCUT TIDM 02/14/19 12/05/20 History Insulin] nitroglycerin [Nitrostat] 0.4 mg SUBLINGUAL DIRECTED PRN 02/14/19 12/05/20 History pantoprazole 40 mg PO QAM 02/14/19 12/05/20 History rosuvastatin 40 mg PO HS 02/14/19 12/05/20 History sertraline 50 mg PO QAM 02/14/19 12/05/20 History terazosin 1 mg PO HS 02/14/19 12/05/20 History topiramate 25 mg PO BID 02/14/19 12/05/20 History clonazepam 1 mg PO HS 03/02/19 12/05/20 History isosorbide mononitrate 120 mg PO QAM 04/23/19 12/05/20 History oxycodone-acetaminophen [Percocet] 1 tab PO TID PRN 04/23/19 12/05/20 History polyethylene glycol 3350 [Miralax] 17 g PO QAM 04/23/19 12/05/20 History baclofen 5 mg PO BID PRN 08/16/20 12/05/20 History diclofenac sodium 1 ea TOPICAL BID PRN 08/16/20 12/05/20 History famotidine 20 mg PO DAILY 08/16/20 12/05/20 History furosemide 40 mg PO QAM 08/16/20 12/05/20 History ondansetron HCl 8 mg PO TID PRN 08/16/20 12/05/20 History Lactobacillus acidoph-L.bulgar 1 tab PO DAILY 10/27/20 12/05/20 History [Lactinex] clonidine HCl 0.2 mg PO BID 10/27/20 12/05/20 History fenofibrate nanocrystallized 145 mg PO DAILY 10/27/20 12/05/20 History nystatin 1 applic TOPICAL TID PRN 10/27/20 12/05/20 History sennosides-docusate sodium 2 tab-cap PO HS PRN 10/27/20 12/05/20 History [Senna-S] potassium chloride [Klor-Con M10] 40 meq PO DAILY 12/05/20 12/05/20 History Past Med/Surg History Medical History Adjustment disorder CAD (coronary artery disease) CHF (congestive heart failure) CKD (chronic kidney disease), stage III GERD (gastroesophageal reflux disease) HLD (hyperlipidemia) Hypertension Hyponatremia IBS (irritable bowel syndrome) Insulin dependent diabetes mellitus Morbid obesity Paroxysmal A-fib Surgical History H/O hernia repair H/O: H/O: hysterectomy S/P cholecystectomy Family History Other No pertinent family history Social History Smoking Status: Unknown if ever smoked Second Hand Exposure: No; Hx Alcohol Use: No Hx Substance Use: No Preferred Language: British Communication Ability: Impaired Communication Ability Comment: Pt is lethargic and disoriented Visual Impairment: No Limitations Dye Operator Required: No Beliefs That Will Affect Care: None marital status: / Current Living Situation: Family Other Information That Helps Us Care for You: No Feels Safe at Home: Yes Safety Concerns: Feels Safe At This Time Assistive Devices: Walker Review of Systems Review of Systems: Could not be reliably obtained Physical Exam Physical Exam: GENERAL: Lethargic, disoriented, morbidly obese , no respiratory distress SKIN: Pallor , warm HEENT: Alopecia, pale palpebral conjunctivae, no ptosis, dry buccal mucosa; AD : No discharge, dull TM, : Retained cerumen, no discharge, no TM perforation NECK : Supple, short neck, no tenderness CHEST : Decreased breath sounds, no tenderness HEART : Bradycardic , no obvious murmurs ABDOMEN: distention, nontender EXTREMITIES : Bilateral LE swelling, no LE tenderness, no other conspicuous deformities noted NEUROLOGIC : Lethargic , no facial asymmetry, gait and stance not assessed Results & Data Results & Data ([facility]) Vital Signs (Past 12 Hours) Vital Signs Pulse Resp BP Pulse Ox 12/05/20 03:31 47 L 27 H 148/68 H 99 12/05/20 03:00 44 L 29 H 148/66 H 97 12/05/20 02:05 43 L 17 152/63 H 98 12/05/20 02:01 43 L 14 197/81 H 98 12/05/20 02:00 43 L 15 96 12/05/20 01:47 45 L 11 L 12/05/20 01:34 42 L 15 137/57 L 98 12/05/20 01:20 98 12/05/20 01:01 41 L 16 99 12/05/20 01:00 41 L 15 138/55 L 99 12/05/20 00:53 42 L 13 136/52 L 99 12/05/20 00:41 44 L 18 145/64 H 99 12/05/20 00:40 42 L 15 99 04/08/21 00:38 43 L 16 99 12/05/20 00:29 42 L 18 145/64 H 99 Laboratory Results Laboratory Results WBC 12.18 K/uL (4.8-10.8) H 12/05/20 00:40 RBC 3.46 M/uL (4.2-5.4) L 12/05/20 00:40 Hgb 10.0 g/dL (12.0-16.0) L 12/05/20 00:40 Hct 31.2 % (37-47) L 12/05/20 00:40 MCV 90.2 fL (80-100) 12/05/20 00:40 MCH 28.9 pg (25-34) 12/05/20 00:40 MCHC 32.1 g/dL (32-36) 12/05/20 00:40 RDW Std Deviation 46.4 fL (36.4-46.3) H 12/05/20 00:40 RDW Coeff of Isabel 14.1 % (11.5-14.5) 12/05/20 00:40 Plt Count 187 K/uL (130-400) 12/05/20 00:40 MPV 10.1 fL (7.4-10.4) 12/05/20 00:40 Immature Gran % (Auto) 0.4 % 12/05/20 00:40 Neut % (Auto) 68.8 % 12/05/20 00:40 Lymph % (Auto) 22.8 % 12/05/20 00:40 [place] % (Auto) 6.2 % 12/05/20 00:40 Eos % (Auto) 1.6 % 12/05/20 00:40 Baso % (Auto) 0.2 % 12/05/20 00:40 Neut # (Auto) 8.39 K/uL (1.4-6.5) H 12/05/20 00:40 Lymph # (Auto) 2.78 K/uL (1.2-3.4) 12/05/20 00:40 [place] # (Auto) 0.75 K/uL (0.11-0.59) H 12/05/20 00:40 Eos # (Auto) 0.19 K/uL (0-0.5) 12/05/20 00:40 Baso # (Auto) 0.02 K/uL (0-0.2) 12/05/20 00:40 Immature Gran # (Auto) 0.05 K/uL (0.00-0.02) H 12/05/20 00:40 PT 10.3 Seconds (9.0-12.0) 12/05/20 00:40 INR 1.0 (0.9-1.1) 12/05/20 00:40 ABG pH 7.35 (7.35-7.45) 12/05/20 01:17 ABG pCO2 51 mmHg (35-46) H 12/05/20 01:17 ABG pO2 86 mmHg (80-95) 12/05/20 01:17 ABG HCO3 27 mmol/L (19-24) H 12/05/20 01:17 ABG O2 Saturation 96.3 % (90-95) H 12/05/20 01:17 ABG Base Excess 1.4 mEq/L (-9-1.8) 12/05/20 01:17 Edwin Test POS (Pos) 12/05/20 01:17 Barometric Pressure 731.3 mm/Hg 12/05/20 01:17 Oxygen Given ROOM AIR 12/05/20 01:17 Sodium 142 mmol/L (136-145) 12/05/20 00:40 Potassium 3.2 mmol/L (3.5-5.1) L 12/05/20 00:40 Chloride 108 mmol/L (98-107) H 12/05/20 00:40 Carbon Dioxide 28 mmol/L (21-32) 12/05/20 00:40 Anion Gap 5.0 (3-11) 12/05/20 00:40 BUN 29 mg/dl (7-18) H 12/05/20 00:40 Creatinine 1.56 mg/dl (0.6-1.2) H 12/05/20 00:40 Est Cr Clr Drug Dosing 39.4 ml/min 12/05/20 00:40 Est GFR ( Amer) 37.3 12/05/20 00:40 Est GFR (Non-Af Amer) 32.2 12/05/20 00:40 BUN/Creatinine Ratio 18.7 (10-20) 12/05/20 00:40 Glucose 77 mg/dl (70-99) 12/05/20 00:40 POC Glucose 113 mg/dl (70-99) H 12/05/20 03:38 Calcium 8.2 mg/dl (8.5-10.1) L 12/05/20 00:40 Magnesium 2.3 mg/dl (1.8-2.4) 12/05/20 00:40 Total Bilirubin 0.4 mg/dl (0.2-1) 12/05/20 00:40 AST 23 U/L (15-37) 12/05/20 00:40 ALT 19 U/L (12-78) 12/05/20 00:40 Alkaline Phosphatase 68 U/L (45-117) 12/05/20 00:40 Ammonia 18.0 umol/L (11-32) 12/05/20 01:17 Troponin I < 0.015 ng/ml (0-0.045) 12/05/20 00:40 NT-Pro-B Natriuret Pep 1220 pg/ml (0-900) H 12/05/20 00:40 Total Protein 6.9 gm/dl (6.4-8.2) 12/05/20 00:40 Albumin 3.0 gm/dl (3.4-5.0) L 12/05/20 00:40 Globulin 3.9 gm/dl (2.5-4.0) 12/05/20 00:40 Albumin/Globulin Ratio 0.8 (0.9-2) L 12/05/20 00:40 Lipase 60 U/L (73-393) L 12/05/20 00:40 Procalcitonin < 0.05 ng/ml (0-0.5) 12/05/20 01:17 TSH 0.264 uIu/ml (0.300-4.500) L 12/05/20 00:40 Free T4 0.96 ng/dl (0.8-1.6) 12/05/20 00:40 Urine Color Yellow 12/05/20 02:00 Urine Appearance Clear (Clear) 12/05/20 02:00 Urine pH 5.0 (4.5-7.5) 12/05/20 02:00 Ur Specific [place] 1.010 (1.000-1.030) 12/05/20 02:00 Urine Protein Negative (Negative) 04/08/21 02:00 Urine Glucose (UA) Negative (Negative) 12/05/20 02:00 Urine Ketones Negative (Negative) 12/05/20 02:00 Urine Blood Negative (Negative) 12/05/20 02:00 Urine Nitrite Positive (Negative) A 12/05/20 02:00 Urine Bilirubin Negative (Negative) 12/05/20 02:00 Urine Urobilinogen Negative (Negative) 12/05/20 02:00 Ur Leukocyte Esterase Trace (Negative) H 12/05/20 02:00 Urine WBC (Auto) 1-5 /hpf (0-5) 12/05/20 02:00 Urine RBC (Auto) 0-4 /hpf (0-4) 12/05/20 02:00 U Hyaline Cast (Auto) 0 /lpf (0-5) 12/05/20 02:00 U Epithel Cells (Auto) 0-5 /lpf (0-5) 12/05/20 02:00 Urine Bacteria (Auto) 1+ (Negative) H 12/05/20 02:00 Ethyl Alcohol mg/dL < 3.0 mg/dl (0-3) 12/05/20 01:17 COVID-19 Eval Order CovFluRsv at [facility] 12/05/20 01:05 SARS-CoV-2 (PCR) NEGATIVE (Negative) 12/05/20 01:05 Influenza Type A (PCR) Negative (Neg) 12/05/20 01:05 Influenza Type B (PCR) Negative (Neg) 12/05/20 01:05 RSV (RT-PCR) Negative (Neg) 12/05/20 01:[address] head initial read: No acute intracranial hemorrhage, edema, or mass-effect. Mild right mastoiditis. Posttraumatic changes left TMJ. Chest x-ray as per my interpretation congestion, atelectasis EKG as per my interpretation : Rate 40, sinus bradycardia, LAD, LAFB, T wave flattening septal leads
[2020-12-05] MEDS ORDERED: CEFEPIME 2,000 MG/20 ML VIAL IV STA (04:22)
[2020-12-05 04:40] LABS: Lyme Ab IgG w/WB Rflx Negative (Negative); Lyme Ab IgM w/WB Rflx Negative (Negative)
[2020-12-05 05:36] LABS: Amphetamines+Metham, Urine Neg (Neg); Barbiturates, Urine Neg (Neg); Benzodiazepine, Urine Neg (Neg); Cocaine, Urine Neg (Neg); MDMA (Ecstacy), Urine Neg (Neg); Methadone, Urine Neg (Neg); Opiate, Urine Neg (Neg); Phencyclidine, Urine Neg (Neg)
[2020-12-05 06:10] LABS: Estimated Average Glucose 151 mg/dl; Hemoglobin A1C 6.9 % (4.5-5.6)
[2020-12-05] MEDS ORDERED: DEXTROSE 50% 50 ML SYRINGE IV PRN (06:14)
[2020-12-05] MEDS ORDERED: PROMETHAZINE HCL 12.5 MG in SODIUM CHLORIDE 0.9% 50 ML IV PRN (06:14)
[2020-12-05] MEDS ORDERED: CEFEPIME CONSULT ACTIVE PRN (06:14)
[2020-12-05] MEDS ORDERED: GLUCOSE 40% GEL 15 GM TUBE PO PRN (06:14)
[2020-12-05] MEDS ORDERED: GLUCAGON FOR INJ 1 MG VIAL SQ PRN (06:14)
[2020-12-05] MEDS ORDERED: GLUCOSE 10 TABS/TUBE PO PRN (06:14)
[2020-12-05] MEDS ORDERED: CARBOHYDRATES FOR HYPOGLYCEMIA PO PRN (06:14)
[2020-12-05] MEDS ORDERED: ACETAMINOPHEN 325 MG TAB PO PRN (06:14)
--- NOTE | 2020-12-05 06:55 | XRay Report ---
XR chest 1V portable HISTORY: 75 years-old Female ams . Acutely altered mental status COMPARISON: Chest radiograph 10/27/2020, CTA chest 04/24/2019 TECHNIQUE: Portable AP view of the chest FINDINGS: Cardiac silhouette is enlarged. No pneumothorax or large pleural effusion. Thickening of the intersti tium is noted with ill-defined patchy bilateral airspace opacities. Mitral annular calcifications. De generative changes of the shoulders and spine. Cholecystectomy. IMPRESSION: Cardiomegaly with right greater than left bilateral pulmonary opacities suggestive of bibiana picious for pneumonia. Asymmetric pulmonary edema could appear similarly. ACT 112: Negative or not required by law. The above report was generated using voice recognition software. It may contain grammatical, syntax o r spelling errors. Electronically signed by: Jatin Gorman M.D. 12/05/2020 6:53 AM
--- NOTE | 2020-12-05 07:01 | CT Scan Report ---
CT OF THE HEAD WITHOUT CONTRAST CLINICAL HISTORY: Altered mental status. COMPARISON STUDY: Head CT August 16, 2020. CT DOSE: 537.48 mGy.cm TECHNIQUE: Helical axial images of the head were obtained without IV contrast. Automated exposure con trol was utilized for the study. A dose lowering technique was utilized adhering to the principles o f ALARA. FINDINGS: No acute intracranial hemorrhage, midline shift or mass effect is present. The ventricular system is unremarkable. The basal cisterns are patent. No extra-axial collections are present. There are no findings to suggest acute dural sinus thrombosis or acute territorial infarct. No significant calvarial abnormalities are present. Small amount of fluid within the right mastoid air cells is note d. IMPRESSION: No acute intracranial findings. ACT 112: Negative or not required by law. Electronically signed by: Stef Dennis M.D. 12/05/2020 7:00 AM
[2020-12-05] MEDS: INSULIN ASPART 100 UNITS/ML 3 ML PEN SC SCH ×4 (09:45→20:54)
[2020-12-05] MEDS: HEPARIN SOD 5,000 UNIT/0.5 ML VIAL SQ SCH ×3 (09:46→21:10)
[2020-12-05] MEDS: hydrALAZINE TAB 50 MG TAB PO SCH ×3 (11:43→20:55)
[2020-12-05] MEDS: ASPIRIN 81 MG ECTAB PO SCH (11:44)
[2020-12-05] MEDS: amLODIPine BESYLATE 5 MG TAB PO SCH (11:44)
[2020-12-05] MEDS: FAMOTIDINE 20 MG TAB PO SCH (11:44)
[2020-12-05] MEDS: POLYETHYLENE (MIRALAX) 17 GM PACK PO SCH (11:44)
[2020-12-05] MEDS: ISOSORBIDE MONO EXTENDED REL 60 MG TABCR PO SCH (11:44)
[2020-12-05] MEDS: PANTOprazole 40 MG TAB PO SCH (11:45)
--- NOTE | 2020-12-05 12:07 | Communication Note ---
Date of Service: December 05, 2020 During my encounter patient was awake, alert and oriented x3. Patient was on 2 L of nasal cannula. Did not have any major complaints at the moment. Denies any chest pain, shortness of breath, abdominal pain, diarrhea or any other focal weakness. Remains afebrile. HD doing fine. Continue with cefepime for now. Will discontinue IV fluids patient on carb diet. PT/OT. Urine cultures are pending.
--- NOTE | 2020-12-05 15:10 | Electrocardiogram Report ---
Test Reason : Blood Pressure : / mmHG Vent. Rate : 042 BPM Atrial Rate : 042 BPM P-R Int : 212 ms QRS Dur : 102 ms QT Int : 554 ms P-R-T Axes : 060 -15 010 degrees QTc Int : 462 ms Marked sinus bradycardia with 1st degree A-V block Abnormal ECG When compared with ECG of 27-OCT-2020 02:20, AK interval has increased Vent. rate has decreased BY 21 BPM Confirmed by Brett Patel ([id number]) on 12/05/2020 3:10:48 PM Referred By: REFERRED SELF Confirmed By:Brett Patel
[2020-12-05] MEDS: CEFEPIME 1,000 MG in SYRINGE 0 ML IV SCH (17:17)
[2020-12-05] MEDS ORDERED: POTASSIUM CHLORIDE CRTAB 20 MEQ TABCR PO STA (19:34)
[2020-12-05] MEDS: traMADol HCL 50 MG TABLET PO PRN (21:10)
[2020-12-06] MEDS: traMADol HCL 50 MG TABLET PO PRN ×4 (03:02→20:55)
[2020-12-06] MEDS: DICLOFENAC SOD 1% GEL 100 GM TUBE EXT PRN ×3 (03:03→20:56)
[2020-12-06] MEDS: CEFEPIME 1,000 MG in SYRINGE 0 ML IV SCH ×2 (03:17→17:15)
[2020-12-06] MEDS: HEPARIN SOD 5,000 UNIT/0.5 ML VIAL SQ SCH ×3 (05:13→21:00)
[2020-12-06 07:37] LABS: Basophils # (auto) 0.02 K/uL (0-0.2); Basophils % (auto) 0.2 %; Eosinophils # (auto) 0.23 K/uL (0-0.5); Eosinophils % (auto) 2.4 %; Hematocrit (blood only) 31.6 % (37-47); Hemoglobin 10.4 g/dL (12.0-16.0); Immature Granulocytes # (auto) 0.03 K/uL (0.00-0.02); Immature Granulocytes % (auto) 0.3 %; Lymphocytes # (auto) 3.75 K/uL (1.2-3.4); Lymphocytes % (auto) 38.8 %; Mean Corpuscular Hemoglobin 29.5 pg (25-34); Mean Corpuscular Hgb Conc 32.9 g/dL (32-36); Mean Corpuscular Volume 89.8 fL (80-100); Mean Platelet Volume 9.9 fL (7.4-10.4); Monocytes # (auto) 0.75 K/uL (0.11-0.59); Monocytes % (auto) 7.8 %; Neutrophils # (auto) 4.88 K/uL (1.4-6.5); Neutrophils % (auto) 50.5 %; Platelet Count 175 K/uL (130-400); RDW Coefficient of Variation 14.3 % (11.5-14.5); RDW Standard Deviation 47.1 fL (36.4-46.3); Red Blood Count 3.52 M/uL (4.2-5.4); White Blood Count 9.66 K/uL (4.8-10.8)
[2020-12-06 08:26] LABS: Calcium 8.4 mg/dl (8.5-10.1); Creatinine Clr Calc Pharmacy 38.3 ml/min; Est GFR (African American) 39.4; Potassium 3.8 mmol/L (3.5-5.1)
[2020-12-06] MEDS: hydrALAZINE TAB 50 MG TAB PO SCH ×3 (09:51→20:54)
[2020-12-06] MEDS: amLODIPine BESYLATE 5 MG TAB PO SCH (09:53)
[2020-12-06] MEDS: ISOSORBIDE MONO EXTENDED REL 60 MG TABCR PO SCH (09:53)
[2020-12-06] MEDS: FAMOTIDINE 20 MG TAB PO SCH (09:53)
[2020-12-06] MEDS: PANTOprazole 40 MG TAB PO SCH (09:55)
[2020-12-06] MEDS: ASPIRIN 81 MG ECTAB PO SCH (09:55)
[2020-12-06] MEDS: INSULIN GLARGINE SOLOSTAR 100 UNITS/ML 3 ML PEN SC SCH (09:56)
[2020-12-06] MEDS: POLYETHYLENE (MIRALAX) 17 GM PACK PO SCH (09:56)
[2020-12-06] MEDS: INSULIN ASPART 100 UNITS/ML 3 ML PEN SC SCH ×4 (09:59→20:54)
[2020-12-06] MEDS ORDERED: clonazePAM 1 MG TAB PO PRN (22:05)
--- NOTE | 2020-12-06 23:03 | Hospitalist Progress Note ---
Date of Service December 06, 2020 Assessment & Plan (1) Acute metabolic encephalopathy: 75-year-old diabetic female presented with decreased responsiveness and hypoglycemia also in the setting of urinary tract infection. Blood sugar was low on arrival by EMS and she was given a dextrose solution with improvement on arrival to the ER. Today confusion is resolved and she is mentating at her baseline. Continue treatment of urinary tract infection and continue current insulin regimen to maintain euglycemia (2) Hypoglycemia: Resolved, she is now eating and she is euglycemic on current insulin regimen. (3) Acute cystitis: Continue cefepime pending sensitivities on urine culture. Remove Griffin at this time (4) Bradycardia: Held home Coreg, clonidine and terazosin for now. Heart rate has improved in the mid to high 50s. Cont to hold for now. (5) Insulin dependent diabetes mellitus: Currently on basal bolus insulin and blood sugar is at goal. She is tolerating p.o. well. (6) CKD (chronic kidney disease), stage III: Around baseline. Avoid nephrotoxic medications and renally dose medications as needed. (7) Morbid obesity: Lifestyle modifications encouraged. (8) Hypertension: Around goal, continue amlodipine 10 daily, hydralazine 100 mg p.o. 3 times daily, Imdur extended release 120 mg p.o. every morning per home regimen. (9) Chronic pain: On chronic narcotic medications, monitor for any signs of withdrawal. (10) Anxiety: nightly clonazepam 1mg qHS. (11) DVT prophylaxis: Heparin Full Code Dispo-home when medically stable. Order PT and OT evaluations to ensure safety going home. Nallely Iyer DO [facility] Hospitalist Admission and Anticipated Discharge Date Admission Date: December 05, 2020 Subjective 75-year-old female presented with confusion thought secondary to possible urine infection. Patient endorses 1 week of bladder pressure prior to arrival Currently has a Griffin in place and reports discomfort with this Reports she has chronic pain throughout her body Notably has left arm blisters and reports this was from an IV she received well after coming into the hospital. Reports she is able to ambulate to and from the bedside commode if asked Low blood sugar yesterday she feels is secondary to not eating enough food, she is feeling better today. Review of Systems Review of Systems: All systems reviewed & are unremarkable except as noted in Subjective Physical Exam Physical Exam: CONSTITUTIONAL: morbid besity, vitals as above, generally well-appearing EYES: normal conjunctivae, no scleral icterus ENT: external ear and nose normal, MMM RESPIRATORY: clear to auscultation bilaterally, no crackles, rales or wheezes, normal respiratory effort CARDIOVASCULAR: regular rate and rhythm, S1 and 2 heard without murmurs, gallops or rubs, no JVD, no peripheral edema GASTROINTESTINAL: soft, nontender, nondistended, no guarding. MUSCULOSKELETAL: generalized weakness, can sit up independently in the bed. SKIN: warm and dry, small circular area of erythema on her outer lower right leg. No open wound. NEUROLOGIC: CN 2-12 grossly intact, no sensory deficit, normal cognition, normal speech, no gross focal deficits. PSYCHIATRIC: alert cooperative and oriented to person, place and time. Results & Data Results & Data ([facility]) Vital Signs (Past 12 Hours) Vital Signs Temp Pulse Pulse Resp BP Pulse Ox 12/06/20 19:09 37.1 C 54 L 18 140/57 L 98 12/06/20 17:38 57 L 12/06/20 16:12 37.0 C 57 L 18 129/54 L 97 12/06/20 12:28 36.8 C 60 20 147/74 H 98 Laboratory Results Short CBC 12/06/20 Range/Units 07:16 WBC 9.66 (4.8-10.8) K/uL Hgb 10.4 L (12.0-16.0) g/dL Hct 31.6 L (37-47) % Plt Count 175 (130-400) K/uL BMP 12/06/20 07:16 Sodium 142 Potassium 3.8 D Chloride 110 H Carbon Dioxide 27 BUN 24 H Creatinine 1.49 H Glucose 94 Calcium 8.4 L Medications Administered Current Inpatient Medications Acetaminophen (Acetaminophen 325 Mg Tab) 650 mg PO Q4H PRN PRN Reason: Pain or Fever Stop: 01/04/21 06:13 Amlodipine Besylate (A[facility]ipine Besylate 5 Mg Tab) [facility] Stop: 01/04/21 08:59 Last Admin: 12/06/20 09:53 Dose: 10 mg Documented by: Aspirin (Aspirin 81 Mg Ectab) [facility] [place] Stop: 01/04/21 08:59 Last Admin: 12/06/20 09:55 Dose: 81 mg Documented by: Clonazepam (Clonazepam 1 Mg Tab) 1 mg PO HS PRN PRN Reason: Insomnia Stop: 01/06/21 20:59 Dextrose (Dextrose 50% 50 Ml Syringe) 25 - 50 ml IV UD PRN; Protocol PRN Reason: Hypoglycemia Protocol Stop: 01/04/21 06:13 Diclofenac Sodium (Diclofenac Sod 1% Gel 100 Gm Tube) 2 gm EXT BID PRN PRN Reason: Pain Stop: 01/04/21 06:13 Last Admin: 12/06/20 20:56 Dose: 2 gm Documented by: Famotidine (Famotidine 20 Mg Tab) 20 mg PO DAILY [facility] Stop: 01/04/21 08:59 Last Admin: 12/06/20 09:53 Dose: 20 mg Documented by: Glucagon (Glucagon For Inj 1 Mg Vial) 1 mg SQ UD PRN; Protocol PRN Reason: Hypoglycemia Protocol Stop: 01/04/21 06:13 Glucose (Glucose 10 Tabs/Tube) 4 - 8 tabs PO UD PRN; Protocol PRN Reason: Hypoglycemia Protocol Stop: 01/04/21 06:13 Glucose (Glucose 40% Gel 15 Gm Tube) 15 - 30 gm PO UD PRN; Protocol PRN Reason: Hypoglycemia Protocol Stop: 01/04/21 06:13 Heparin Sodium (Porcine) (Heparin Sod 5,000 Unit/0.5 Ml Vial) 5,000 units SQ Q8 [facility] Stop: 01/04/21 05:59 Last Admin: 12/06/20 21:00 Dose: 5,000 units Documented by: Hydralazine HCl (Hydralazine Tab 50 Mg Tab) 100 mg PO TID [facility] Stop: 01/04/21 08:59 Last Admin: 12/06/20 20:54 Dose: 100 mg Documented by: Cefepime HCl 1,000 mg/ Syringe 11.3 mls @ 5.5 mls/min IV Q12H [facility]; Protocol Stop: 12/15/20 15:59 Last Admin: 12/06/20 17:15 Dose: 5.5 mls/min Documented by: Insulin Aspart (Insulin Aspart 100 Units/Ml 3 Ml Pen) 0 units SC ACHS [facility] Stop: 01/04/21 07:29 Last Admin: 12/06/20 20:54 Dose: Not Given Documented by: Insulin Glargine (Insulin Glargine Solostar 100 Units/Ml 3 Ml Pen) 5 units SC DAILY [facility] Stop: 01/05/21 08:59 Last Admin: 12/06/20 09:56 Dose: 5 units Documented by: Isosorbide Mononitrate (Isosorbide [place] Extended Rel 60 Mg Tabcr) 120 mg PO QAM [facility] Stop: 01/04/21 08:59 Last Admin: 12/06/20 09:53 Dose: 120 mg Documented by: Miscellaneous (Carbohydrates For Hypoglycemia ) 15 - 30 gm PO UD PRN PRN Reason: Hypoglycemia Protocol Stop: 01/04/21 06:13 Miscellaneous Information (Cefepime Consult Active) 1 ea N/A UD PRN PRN Reason: Consult Stop: 01/04/21 06:13 Oxycodone/Acetaminophen (Oxycodone/Acetaminophen 5mg/325mg Tab) 1 tab PO TID PRN PRN Reason: Pain Stop: 12/20/20 22:04 Pantoprazole Sodium (Pantoprazole 40 Mg Tab) [facility] [place] Stop: 01/04/21 08:59 Last Admin: 12/06/20 09:55 Dose: 40 mg Documented by: Polyethylene Glycol (Polyethylene (Miralax) 17 Gm Pack) 17 gm PO QAM [facility] Stop: 01/04/21 08:59 Last Admin: 12/06/20 09:56 Dose: Not Given Documented by:
[2020-12-06] MEDS: oxyCODONE/ACETAMINOPHEN 5mg/325mg TAB PO PRN (23:48)
[2020-12-07] MEDS: CEFEPIME 1,000 MG in SYRINGE 0 ML IV SCH ×2 (03:10→17:39)
[2020-12-07] MEDS: HEPARIN SOD 5,000 UNIT/0.5 ML VIAL SQ SCH ×3 (05:37→22:17)
[2020-12-07 07:09] LABS: Hematocrit (blood only) 33.6 % (37-47); Hemoglobin 11.1 g/dL (12.0-16.0); Mean Corpuscular Hemoglobin 29.4 pg (25-34); Mean Corpuscular Volume 89.1 fL (80-100); Mean Platelet Volume 10.1 fL (7.4-10.4); Platelet Count 185 K/uL (130-400); RDW Coefficient of Variation 13.9 % (11.5-14.5); RDW Standard Deviation 45.5 fL (36.4-46.3); Red Blood Count 3.77 M/uL (4.2-5.4); White Blood Count 9.37 K/uL (4.8-10.8)
[2020-12-07 07:35] LABS: BUN Creatinine Ratio 15.1 (10-20); Creatinine Clr Calc Pharmacy 41.4 ml/min; Est GFR (African American) 42.9; Magnesium 2.3 mg/dl (1.8-2.4); Potassium 3.8 mmol/L (3.5-5.1)
[2020-12-07] MEDS: hydrALAZINE TAB 50 MG TAB PO SCH ×3 (08:46→22:22)
[2020-12-07] MEDS: PANTOprazole 40 MG TAB PO SCH (08:47)
[2020-12-07] MEDS: amLODIPine BESYLATE 5 MG TAB PO SCH (08:47)
[2020-12-07] MEDS: ISOSORBIDE MONO EXTENDED REL 60 MG TABCR PO SCH (08:47)
[2020-12-07] MEDS: ASPIRIN 81 MG ECTAB PO SCH (08:47)
[2020-12-07] MEDS: GABAPENTIN 300 MG CAP PO SCH ×3 (08:48→22:16)
[2020-12-07] MEDS: CHOLECALCIFEROL 1,000 UNITS 25 MCG TAB PO SCH (08:48)
[2020-12-07] MEDS: TOPIRAMATE 25 MG TAB PO SCH ×2 (08:48→22:17)
[2020-12-07] MEDS: FAMOTIDINE 20 MG TAB PO SCH (08:48)
[2020-12-07] MEDS: SERTRALINE HCL 50 MG TABLET PO SCH (08:49)
[2020-12-07] MEDS: INSULIN GLARGINE SOLOSTAR 100 UNITS/ML 3 ML PEN SC SCH ×2 (08:49→22:14)
[2020-12-07] MEDS: INSULIN ASPART 100 UNITS/ML 3 ML PEN SC SCH ×4 (08:50→20:56)
[2020-12-07] MEDS: POLYETHYLENE (MIRALAX) 17 GM PACK PO SCH (08:51)
--- NOTE | 2020-12-07 10:17 | Electrocardiogram Report ---
Test Reason : Blood Pressure : / mmHG Vent. Rate : 058 BPM Atrial Rate : 058 BPM P-R Int : 172 ms QRS Dur : 096 ms QT Int : 442 ms P-R-T Axes : 061 061 038 degrees QTc Int : 433 ms Sinus bradycardia Poor R wave progression, consider anterior LA vs. lead placement vs. LVH Abnormal ECG When compared with ECG of 05-DEC-2020 00:38, DC interval has decreased Confirmed by Mauricio Freeman ([id number]) on 12/07/2020 10:17:13 AM Referred By: REFERRED SELF Confirmed By:Mauricio Freeman
[2020-12-07] MEDS: lisinopril 10 MG TAB PO SCH (10:46)
[2020-12-07] MEDS: carvediloL 12.5 MG TAB PO SCH ×2 (10:46→22:22)
[2020-12-07] MEDS: oxyCODONE/ACETAMINOPHEN 5mg/325mg TAB PO PRN ×2 (13:51→22:15)
[2020-12-07] MEDS ORDERED: BACLOFEN 10 MG TAB PO PRN (16:44)
--- NOTE | 2020-12-07 16:46 | Hospitalist Progress Note ---
Date of Service December 07, 2020 Assessment & Plan (1) Acute metabolic encephalopathy: 75-year-old diabetic female presented with decreased responsiveness and hypoglycemia also in the setting of urinary tract infection. Blood sugar was low on arrival by EMS and she was given a dextrose solution with improvement on arrival to the ER. She continues to mentate at her baseline and glucose is closer to goal. Adjust insulin to be closer to home insulin regimen and cont to monitor. (2) Hypoglycemia: Resolved, she is now eating and she is euglycemic on current insulin regimen. Tighten Novolog and increase Lantus. (3) Acute cystitis: Griffin discontinued on 12/06. She is asymptomatic today. Cefepime changed to cefdinir to complete the course. (4) Bradycardia: Resolved, restarted Coreg. Cont holding terazosin and clonidine while BP is within normal limits. (5) Insulin dependent diabetes mellitus: Currently on basal bolus insulin and blood sugar is at goal. She is tolerating p.o. well. Adjust regimen as above. (6) CKD (chronic kidney disease), stage III: Around baseline. Avoid nephrotoxic medications and renally dose medications as needed. (7) Morbid obesity: Lifestyle modifications encouraged. (8) Hypertension: Around goal, continue amlodipine 10 daily, hydralazine 100 mg p.o. 3 times daily, Imdur extended release 120 mg p.o. every morning per home regimen. (9) Chronic pain: On chronic narcotic medications, monitor for any signs of withdrawal. (10) Anxiety: nightly clonazepam 1mg qHS. (11) DVT prophylaxis: Heparin Full Code Dispo-home when medically stable. 24 hr supervision recommended per PT, and patient reports this exists in her current living situation. Nallely Iyer DO [facility] Hospitalist Admission and Anticipated Discharge Date Admission Date: December 05, 2020 Subjective 75-year-old female presented with confusion thought secondary to possible urine infection. feels better today but has some chronic aches and pains she is concerned about something with her wig she is feeling better and excited to go home tomorrow. Review of Systems 2 Review of Systems: All systems reviewed & are unremarkable except as noted in Subjective Physical Exam Physical Exam: CONSTITUTIONAL: morbid besity, vitals as above, generally well-appearing EYES: normal conjunctivae, no scleral icterus ENT: external ear and nose normal, MMM RESPIRATORY: clear to auscultation bilaterally, no crackles, rales or wheezes, normal respiratory effort CARDIOVASCULAR: regular rate and rhythm, S1 and 2 heard without murmurs, gallops or rubs, no JVD, no peripheral edema GASTROINTESTINAL: soft, nontender, nondistended, no guarding. MUSCULOSKELETAL: generalized weakness, can sit up independently in the bed. SKIN: warm and dry, small circular area of erythema on her outer lower right leg. No open wound. NEUROLOGIC: CN 2-12 grossly intact, no sensory deficit, normal cognition, normal speech, no gross focal deficits. PSYCHIATRIC: alert cooperative and oriented to person, place and time. Results & Data Results & Data ([facility]) Vital Signs (Past 12 Hours) Vital Signs Temp Pulse Resp BP Pulse Ox 12/07/20 15:29 36.8 C 73 18 137/85 97 12/07/20 13:00 36.5 C 58 L 16 145/72 H 100 12/07/20 10:45 66 184/90 H 12/07/20 08:45 66 177/96 H 12/07/20 07:08 36.8 C 66 20 164/76 H 98 Laboratory Results Short CBC 12/07/20 Range/Units 06:37 WBC 9.37 (4.8-10.8) K/uL Hgb 11.1 L (12.0-16.0) g/dL Hct 33.6 L (37-47) % Plt Count 185 (130-400) K/uL BMP 12/07/20 06:37 Sodium 142 Potassium 3.8 Chloride 109 H Carbon Dioxide 26 BUN 21 H Creatinine 1.39 H Glucose 125 H Calcium 9.0 Medications Administered Current Inpatient Medications Acetaminophen (Acetaminophen 325 Mg Tab) 650 mg PO Q4H PRN PRN Reason: Pain or Fever Stop: 01/04/21 06:13 Last Admin: 12/07/20 02:18 Dose: 650 mg Documented by: Amlodipine Besylate (Amlodipine Besylate 5 Mg Tab) 10 mg PO [facility] Stop: 01/04/21 08:59 Last Admin: 12/07/20 08:47 Dose: 10 mg Documented by: Aspirin (Aspirin 81 Mg Ectab) 81 mg PO [facility] Stop: 01/04/21 08:59 Last Admin: 12/07/20 08:47 Dose: 81 mg Documented by: Baclofen (Baclofen 10 Mg Tab) 5 mg PO BID PRN PRN Reason: Pain Stop: 01/06/21 16:43 Carvedilol (Carvedilol 12.5 Mg Tab) 12.5 mg PO BID [facility] Stop: 01/06/21 10:14 Last Admin: 12/07/20 10:46 Dose: 12.5 mg Documented by: Clonazepam (Clonazepam 1 Mg Tab) 1 mg PO HS PRN PRN Reason: Insomnia Stop: 01/06/21 20:59 Dextrose (Dextrose 50% 50 Ml Syringe) 25 - 50 ml IV UD PRN; Protocol PRN Reason: Hypoglycemia Protocol Stop: 01/04/21 06:13 Diclofenac Sodium (Diclofenac Sod 1% Gel 100 Gm Tube) 2 gm EXT BID PRN PRN Reason: Pain Stop: 01/04/21 06:13 Last Admin: 12/06/20 20:56 Dose: 2 gm Documented by: Famotidine (Famotidine 20 Mg Tab) 20 mg PO DAILY [facility] Stop: 01/04/21 08:59 Last Admin: 12/07/20 08:48 Dose: 20 mg Documented by: Gabapentin (Gabapentin 300 Mg Cap) 300 mg PO TID [facility] Stop: 01/06/21 08:59 Last Admin: 12/07/20 13:49 Dose: 300 mg Documented by: Glucagon (Glucagon For Inj 1 Mg Vial) 1 mg SQ UD PRN; Protocol PRN Reason: Hypoglycemia Protocol Stop: 01/04/21 06:13 Glucose (Glucose 10 Tabs/Tube) 4 - 8 tabs PO UD PRN; Protocol PRN Reason: Hypoglycemia Protocol Stop: 01/04/21 06:13 Glucose (Glucose 40% Gel 15 Gm Tube) 15 - 30 gm PO UD PRN; Protocol PRN Reason: Hypoglycemia Protocol Stop: 01/04/21 06:13 Heparin Sodium (Porcine) (Heparin Sod 5,000 Unit/0.5 Ml Vial) 5,000 units SQ Q8 [facility] Stop: 01/04/21 05:59 Last Admin: 12/07/20 13:46 Dose: 5,000 units Documented by: Hydralazine HCl (Hydralazine Tab 50 Mg Tab) 100 mg PO TID [facility] Stop: 01/04/21 08:59 Last Admin: 12/07/20 13:46 Dose: 100 mg Documented by: Insulin Aspart (Insulin Aspart 100 Units/Ml 3 Ml Pen) 0 units SC ACHS [facility] Stop: 01/04/21 07:29 Last Admin: 12/07/20 12:12 Dose: 3 units Documented by: Insulin Glargine (Insulin Glargine Solostar 100 Units/Ml 3 Ml Pen) 15 units SC BID [facility] Stop: 01/06/21 20:59 Isosorbide Mononitrate (Isosorbide Garza Extended Rel 60 Mg Tabcr) 120 mg PO QAM [facility] Stop: 01/04/21 08:59 Last Admin: 12/07/20 08:47 Dose: 120 mg Documented by: Lisinopril (Lisinopril 10 Mg Tab) 10 mg PO QAM [facility] Stop: 01/06/21 10:14 Last Admin: 12/07/20 10:46 Dose: 10 mg Documented by: Miscellaneous (Carbohydrates For Hypoglycemia ) 15 - 30 gm PO UD PRN PRN Reason: Hypoglycemia Protocol Stop: 01/04/21 06:13 Oxycodone/Acetaminophen (Oxycodone/Acetaminophen 5mg/325mg Tab) 1 tab PO TID PRN PRN Reason: Pain Stop: 12/20/20 22:04 Last Admin: 12/07/20 13:51 Dose: 1 tab Documented by: Pantoprazole Sodium (Pantoprazole 40 Mg Tab) 40 mg PO QAM [facility] Stop: 01/04/21 08:59 Last Admin: 12/07/20 08:47 Dose: 40 mg Documented by: Polyethylene Glycol (Polyethylene (Miralax) 17 Gm Pack) 17 gm PO QAM [facility] Stop: 01/04/21 08:59 Last Admin: 12/07/20 08:51 Dose: Not Given Documented by: Rosuvastatin Calcium (Rosuvastatin Calcium 20 Mg Tab) 40 mg PO HS [facility] Stop: 01/06/21 20:59 Sertraline HCl (Sertraline Hcl 50 Mg Tablet) 50 mg PO [facility] Stop: 01/06/21 08:59 Last Admin: 12/07/20 08:49 Dose: 50 mg Documented by: Topiramate (Topiramate 25 Mg Tab) 25 mg PO BID [facility] Stop: 01/06/21 08:59 Last Admin: 12/07/20 08:48 Dose: 25 mg Documented by: Vitamin D (Cholecalciferol 1,000 Units 25 Mcg Tab) 1,000 units PO DAILY [facility] Stop: 01/06/21 08:59 Last Admin: 12/07/20 08:48 Dose: 1,000 units Documented by:
[2020-12-07] MEDS: CEFDINIR 300 MG CAP PO SCH (18:17)
--- NOTE | 2020-12-07 20:03 | XRay Report ---
XR chest 1V portable HISTORY: Pulmonary edema. Follow-up. Shortness of breath. COMPARISON: Chest 12/05/2020. FINDINGS: Mild interstitial pulmonary edema has improved. No pneumothorax. No pleural effusions. The heart remains mildly enlarged. Mitral annulus calcifications are again noted. No new focal lung conso lidations. IMPRESSION: Interval improvement in the mild interstitial pulmonary edema. Cardiomegaly persists. ACT 112: Negative or not required by law. Electronically signed by: Osmar Bonilla M.D. 12/07/2020 8:02 PM
[2020-12-07] MEDS ORDERED: ROSUVASTATIN CALCIUM 20 MG TAB PO SCH (21:00)
[2020-12-08] MEDS: CEFDINIR 300 MG CAP PO SCH (06:26)
[2020-12-08] MEDS: HEPARIN SOD 5,000 UNIT/0.5 ML VIAL SQ SCH ×2 (06:27→13:13)
[2020-12-08] MEDS: oxyCODONE/ACETAMINOPHEN 5mg/325mg TAB PO PRN (07:26)
[2020-12-08] MEDS: POLYETHYLENE (MIRALAX) 17 GM PACK PO SCH (08:58)
[2020-12-08] MEDS: INSULIN ASPART 100 UNITS/ML 3 ML PEN SC SCH ×2 (08:58→13:06)
[2020-12-08] MEDS: INSULIN GLARGINE SOLOSTAR 100 UNITS/ML 3 ML PEN SC SCH (08:59)
[2020-12-08] MEDS ORDERED: ONDANSETRON INJ 2 MG/ML 2 ML VIAL IV PRN (09:02)
[2020-12-08] MEDS ORDERED: PROMETHAZINE HCL 25 MG TAB PO PRN (09:02)
[2020-12-08] MEDS: FAMOTIDINE 20 MG TAB PO SCH (09:17)
[2020-12-08] MEDS: CHOLECALCIFEROL 1,000 UNITS 25 MCG TAB PO SCH (09:22)
[2020-12-08] MEDS: ASPIRIN 81 MG ECTAB PO SCH (09:22)
[2020-12-08] MEDS: TOPIRAMATE 25 MG TAB PO SCH (09:22)
[2020-12-08] MEDS: ISOSORBIDE MONO EXTENDED REL 60 MG TABCR PO SCH (09:22)
[2020-12-08] MEDS: hydrALAZINE TAB 50 MG TAB PO SCH ×2 (09:22→13:13)
[2020-12-08] MEDS: SERTRALINE HCL 50 MG TABLET PO SCH (09:22)
[2020-12-08] MEDS: lisinopril 10 MG TAB PO SCH (09:22)
[2020-12-08] MEDS: GABAPENTIN 300 MG CAP PO SCH ×2 (09:23→13:13)
[2020-12-08] MEDS: carvediloL 12.5 MG TAB PO SCH (09:23)
[2020-12-08] MEDS: amLODIPine BESYLATE 5 MG TAB PO SCH (09:23)
[2020-12-08] MEDS: PANTOprazole 40 MG TAB PO SCH (09:23)
--- NOTE | 2020-12-08 11:45 | Discharge Summary ---
Date of Service December 08, 2020 Admission HPI Per Admitting Provider History obtained from patient and records. Limited history from patient secondary to lethargy and disorientation. Medical history significant for chronic diastolic heart failure (EF of 60-65% TTE 2018), CAD as per records, hypertension, DM2, insulin-requiring, CRI (baseline creatinine 1.7-2), chronic anemia (baseline hemoglobin of 10), recurrent UTIs, anxiety/mood disorder, chronic pain. Last confinement July 2020 encephalopathy secondary to E. coli UTI. Patient noted to be confused, minimally responsive by family yesterday. Difficult to arouse. Patient looked very tired. Patient denies headache, chest pain, cough, shortness of breath, abdominal pain, dysuria, diarrhea symptoms. Usual chronic right-sided ear pain without discharge and chronic back pain. Patient noted to be hypoglycemic upon arrival of EMS. Dextrose administered by EMS at home. Patient brought to the ER for evaluation. IV ceftriaxone given for UTI. MEDICAL HISTORY: As above. SURGERIES: Hernia repair, , hysterectomy, cholecystectomy. FAMILY HISTORY: Heart disease. Sania's chorea PERSONAL AND SOCIAL HISTORY: Nonsmoker. No chronic intake of alcoholic beverages. Lives with sisters. Admission Exam Per Admitting Provider GENERAL: Lethargic, disoriented, morbidly obese , no respiratory distress SKIN: Pallor , warm HEENT: Alopecia, pale palpebral conjunctivae, no ptosis, dry buccal mucosa; AD : No discharge, dull TM, : Retained cerumen, no discharge, no TM perforation NECK : Supple, short neck, no tenderness CHEST : Decreased breath sounds, no tenderness HEART : Bradycardic , no obvious murmurs ABDOMEN: distention, nontender EXTREMITIES : Bilateral LE swelling, no LE tenderness, no other conspicuous defo rmities noted NEUROLOGIC : Lethargic , no facial asymmetry, gait and stance not assessed Principal Diagnosis Acute metabolic encephalopathy Hypoglycemia-resolved Urinary tract infection 2/2 E coli Insulin dependent diabetes Bradycardia-resolved Hypertension Chronic pain-opiate dependence Discharge Exam CONSTITUTIONAL: morbid besity, vitals as above, generally well-appearing EYES: normal conjunctivae, no scleral icterus ENT: external ear and nose normal, MMM RESPIRATORY: clear to auscultation bilaterally, no crackles, rales or wheezes, normal respiratory effort CARDIOVASCULAR: regular rate and rhythm, S1 and 2 heard without murmurs, gallops or rubs, no JVD, no peripheral edema GASTROINTESTINAL: soft, nontender, nondistended, no guarding. MUSCULOSKELETAL: generalized weakness, can sit up independently in the bed. SKIN: warm and dry, small circular area of erythema on her outer lower right leg. No open wound. NEUROLOGIC: CN 2-12 grossly intact, no sensory deficit, normal cognition, normal speech, no gross focal deficits. PSYCHIATRIC: alert cooperative and oriented to person, place and time. Discharge Data Allergies Allergy/AdvReac Type Severity Reaction Status Date / Time loratadine Allergy Intermediate MOUTH Verified 12/05/20 01:43 SWELLING diphenhydramine AdvReac Intermediate GMG-SHAKING Verified 12/05/20 01:43 [From Benadryl] & SWEATING metformin AdvReac Intermediate causes Verified 12/05/20 04:04 kidney problems Sulfa (Sulfonamide AdvReac Intermediate Unknown Verified 12/05/20 01:43 Antibiotics) sulfamethoxazole AdvReac Intermediate GMG-RENAL Verified 12/05/20 01:43 COMPLICATIONS trimethoprim AdvReac Intermediate GMG-RENAL Verified 12/05/20 01:43 COMPLICATIONS Asddtza-Vds-Uvu Reductase AdvReac Mild Gastrointestinal Verified 12/05/20 04:06 Inhibitor Upset Consultations 12/05/20 03:42 ED Decision to Admit Stat Ordered Studies Laboratory Results WBC 9.37 K/uL (4.8-10.8) 12/07/20 06:37 RBC 3.77 M/uL (4.2-5.4) L 12/07/20 06:37 Hgb 11.1 g/dL (12.0-16.0) L 12/07/20 06:37 Hct 33.6 % (37-47) L 12/07/20 06:37 MCV 89.1 fL (80-100) 12/07/20 06:37 MCH 29.4 pg (25-34) 12/07/20 06:37 MCHC 33.0 g/dL (32-36) 12/07/20 06:37 RDW Std Deviation 45.5 fL (36.4-46.3) 12/07/20 06:37 RDW Coeff of Isabel 13.9 % (11.5-14.5) 12/07/20 06:37 Plt Count 185 K/uL (130-400) 12/07/20 06:37 MPV 10.1 fL (7.4-10.4) 12/07/20 06:37 Immature Gran % (Auto) 0.3 % 12/06/20 07:16 Neut % (Auto) 50.5 % 12/06/20 07:16 Lymph % (Auto) 38.8 % 12/06/20 07:16 [place] % (Auto) 7.8 % 12/06/20 07:16 Eos % (Auto) 2.4 % 12/06/20 07:16 Baso % (Auto) 0.2 % 12/06/20 07:16 Neut # (Auto) 4.88 K/uL (1.4-6.5) 12/06/20 07:16 Lymph # (Auto) 3.75 K/uL (1.2-3.4) H 12/06/20 07:16 [place] # (Auto) 0.75 K/uL (0.11-0.59) H 12/06/20 07:16 Eos # (Auto) 0.23 K/uL (0-0.5) 12/06/20 07:16 Baso # (Auto) 0.02 K/uL (0-0.2) 12/06/20 07:16 Immature Gran # (Auto) 0.03 K/uL (0.00-0.02) H 12/06/20 07:16 PT 10.3 Seconds (9.0-12.0) 12/05/20 00:40 INR 1.0 (0.9-1.1) 12/05/20 00:40 ABG pH 7.35 (7.35-7.45) 12/05/20 01:17 ABG pCO2 51 mmHg (35-46) H 12/05/20 01:17 ABG pO2 86 mmHg (80-95) 12/05/20 01:17 ABG HCO3 27 mmol/L (19-24) H 12/05/20 01:17 ABG O2 Saturation 96.3 % (90-95) H 12/05/20 01:17 ABG Base Excess 1.4 mEq/L (-9-1.8) 12/05/20 01:17 Edwin Test POS (Pos) 12/05/20 01:17 Barometric Pressure 731.3 mm/Hg 12/05/20 01:17 Oxygen Given ROOM AIR 12/05/20 01:17 Sodium 142 mmol/L (136-145) 12/07/20 06:37 Potassium 3.8 mmol/L (3.5-5.1) 12/07/20 06:37 Chloride 109 mmol/L (98-107) H 12/07/20 06:37 Carbon Dioxide 26 mmol/L (21-32) 12/07/20 06:37 Anion Gap 7.0 (3-11) 12/07/20 06:37 BUN 21 mg/dl (7-18) H 12/07/20 06:37 Creatinine 1.39 mg/dl (0.6-1.2) H 12/07/20 06:37 Est Cr Clr Drug Dosing 41.4 ml/min 12/07/20 06:37 Est GFR ( Amer) 42.9 12/07/20 06:37 Est GFR (Non-Af Amer) 37.0 12/07/20 06:37 BUN/Creatinine Ratio 15.1 (10-20) 12/07/20 06:37 Glucose 125 mg/dl (70-99) H 12/07/20 06:37 POC Glucose 204 mg/dl (70-99) H 12/08/20 12:11 Estimat Average Glucose 151 mg/dl 12/05/20 01:17 Hemoglobin A1c 6.9 % (4.5-5.6) H 12/05/20 01:17 Calcium 9.0 mg/dl (8.5-10.1) 12/07/20 06:37 Magnesium 2.3 mg/dl (1.8-2.4) 12/07/20 06:37 Total Bilirubin 0.4 mg/dl (0.2-1) 12/05/20 00:40 AST 23 U/L (15-37) 12/05/20 00:40 ALT 19 U/L (12-78) 12/05/20 00:40 Alkaline Phosphatase 68 U/L (45-117) 12/05/20 00:40 Ammonia 18.0 umol/L (11-32) 12/05/20 01:17 Troponin I < 0.015 ng/ml (0-0.045) 12/05/20 00:40 NT-Pro-B Natriuret Pep 1220 pg/ml (0-900) H 12/05/20 00:40 Total Protein 6.9 gm/dl (6.4-8.2) 12/05/20 00:40 Albumin 3.0 gm/dl (3.4-5.0) L 12/05/20 00:40 Globulin 3.9 gm/dl (2.5-4.0) 12/05/20 00:40 Albumin/Globulin Ratio 0.8 (0.9-2) L 12/05/20 00:40 Lipase 60 U/L (73-393) L 12/05/20 00:40 Procalcitonin < 0.05 ng/ml (0-0.5) 12/05/20 01:17 TSH 0.264 uIu/ml (0.300-4.500) L 12/05/20 00:40 Free T4 0.96 ng/dl (0.8-1.6) 12/05/20 00:40 Urine Color Yellow 12/05/20 02:00 Urine Appearance Clear (Clear) 12/05/20 02:00 Urine pH 5.0 (4.5-7.5) 12/05/20 02:00 Ur Specific Martin 1.010 (1.000-1.030) 12/05/20 02:00 Urine Protein Negative (Negative) 12/05/20 02:00 Urine Glucose (UA) Negative (Negative) 12/05/20 02:00 Urine Ketones Negative (Negative) 12/05/20 02:00 Urine Blood Negative (Negative) 12/05/20 02:00 Urine Nitrite Positive (Negative) A 12/05/20 02:00 Urine Bilirubin Negative (Negative) 12/05/20 02:00 Urine Urobilinogen Negative (Negative) 12/05/20 02:00 Ur Leukocyte Esterase Trace (Negative) H 12/05/20 02:00 Urine WBC (Auto) 1-5 /hpf (0-5) 12/05/20 02:00 Urine RBC (Auto) 0-4 /hpf (0-4) 12/05/20 02:00 U Hyaline Cast (Auto) 0 /lpf (0-5) 12/05/20 02:00 U Epithel Cells (Auto) 0-5 /lpf (0-5) 12/05/20 02:00 Urine Bacteria (Auto) 1+ (Negative) H 12/05/20 02:00 Urine Opiates Screen Neg (Neg) 12/05/20 02:00 Ur Methadone, Qual Neg (Neg) 12/05/20 02:00 Urine Barbiturates Neg (Neg) 12/05/20 02:00 Ur Phencyclidine (PCP) Neg (Neg) 12/05/20 02:00 U Amphetamin/Meth Scrn Neg (Neg) 12/05/20 02:00 MDMA (Ecstasy) Screen Neg (Neg) 12/05/20 02:00 U Benzodiazepines Scrn Neg (Neg) 12/05/20 02:00 Ur Cocaine Metabolite Neg (Neg) 12/05/20 02:00 U Marijuana (THC) Screen Neg (Neg) 12/05/20 02:00 Ethyl Alcohol mg/dL < 3.0 mg/dl (0-3) 12/05/20 01:17 Lyme Disease IgG Ab Negative (Negative) 12/05/20 01:17 Lyme Disease IgM Ab Negative (Negative) 12/05/20 01:17 COVID-19 Eval Order CovFluRsv at [facility] 12/05/20 01:05 SARS-CoV-2 (PCR) NEGATIVE (Negative) 12/05/20 01:05 Influenza Type A (PCR) Negative (Neg) 12/05/20 01:05 Influenza Type B (PCR) Negative (Neg) 12/05/20 01:05 RSV (RT-PCR) Negative (Neg) 12/05/20 01:[address] 12/05/20 00:55 CT OF THE HEAD WITHOUT CONTRAST CLINICAL HISTORY: Altered mental status. COMPARISON STUDY: Head CT August 16, 2020. CT DOSE: 537.48 mGy.cm TECHNIQUE: Helical axial images of the head were obtained without IV contrast. Automated exposure control was utilized for the study. A dose lowering technique was utilized adhering to the principles of ALARA. FINDINGS: No acute intracranial hemorrhage, midline shift or mass effect is present. The ventricular system is unremarkable. The basal cisterns are patent. No extra-axial collections are present. There are no findings to suggest acute dural sinus thrombosis or acute territorial infarct. No significant calvarial abnormalities are present. Small amount of fluid within the right mastoid air cells is noted. IMPRESSION: No acute intracranial findings. ACT 112: Negative or not required by law. Electronically signed by: Stef Dennis M.D. 12/05/2020 7:00 AM Chest X-Ray 12/07/20 16:46 XR chest 1V portable HISTORY: Pulmonary edema. Follow-up. Shortness of breath. COMPARISON: Chest 12/05/2020. FINDINGS: Mild interstitial pulmonary edema has improved. No pneumothorax. No pleural effusions. The heart remains mildly enlarged. Mitral annulus calcifications are again noted. No new focal lung consolidations. IMPRESSION: Interval improvement in the mild interstitial pulmonary edema. Cardiomegaly persists. ACT 112: Negative or not required by law. Electronically signed by: Osmar Bonilla M.D. 12/07/2020 8:02 PM Hospital Course (1) Acute metabolic encephalopathy: 75-year-old diabetic female presented with decreased responsiveness and hypoglycemia also in the setting of urinary tract infection. Blood sugar was low on arrival by EMS and she was given a dextrose solution with improvement on arrival to the ER. Confusion cleared and she was mentating at her baseline by hospital day 2. Glucose was at goal on her home insulin regimen prior to discharge and she was eating well and feeling much better prior to discharge. She was counseled to avoid short-acting insulin if not eating. (2) Hypoglycemia: (3) Acute cystitis: Griffin discontinued on 12/06. She is asymptomatic today. Cefepime changed to cefdinir to complete the course. (4) Bradycardia: Resolved, restarted Coreg and terazosin but was able to continue holding clonidine given interaction wtih betablocker and fatigue as a side effect. She was instead started on a low dose lisinopril which she had trialed before, helpful in setting of diabetes. Repeat chemistry recommended as outpatient in two weeks to monitor expected rise in creatinine and lytes with titration of medication as needed. (5) Hypertension: (6) Insulin dependent diabetes mellitus: (7) Morbid obesity: Lifestyle modifications encouraged. (8) Chronic pain: On chronic narcotic medications which may have played a role in her encephalopathy and bradycardia, however, these are taken consistently with the variable in her report being that she had not eaten while still taking her insulin, and her glucose was low. (9) Anxiety: nightly clonazepam 1mg qHS. At time of discharge she was mentating and ambulating at her baseline and was tolerating PO. PT/OT had assessed her and recommended 24hr supervision at home for safety which is the case with multiple adult family members living in her household. She was hemodynamically stable and afebrile and oxygenating well on room air. Blood pressure prior to discharge was 137/67. She was sent home in stable condition with close primary care follow-up in two weeks time. Total Time Total Time Spent Total Time Spent (In Minutes): 60 Total Time Includes: Examination of the Patient, Discharge Planning, Medication Reconciliation and Communication With Other Providers Discharge Plan Discharge Items Patient Disposition: Home - Home Health Services Reason For Visit: ENCEPHALOPATHY Discharge Diagnosis: Acute metabolic encephalopathy Hypoglycemia-resolved Urinary tract infection 2/2 E coli Insulin dependent diabetes Bradycardia-resolved Hypertension Chronic pain-opiate dependence Condition on Discharge: Good Activity: Resume your previous activity Non-emergency contact: Primary Care Provider Call non-emergency contact if: you have any medication questions, your symptoms worsen, your pain is worsening and you have a fever Follow-up/Referrals: Eric Bullock, [Primary Care Provider] - Diet: Carb Consistent or DM2 and Low Sodium (2gm) Addtl Attending Provider Instructions: You were hospitalized out of concern for confusion, low heart rate and adjustment in medications. You are being started on a new blood pressure medicine called LISINOPRIL to take once daily. As a result, you will need to have nonfasting bloodwork with your primary care physician (PCP) to check your kidneys and electrolytes in 1-2 weeks. This will be ordered by your PCP. Some medications have been adjusted to your regimen, but this will require close follow-up with one of your physicians to ensure your blood pressure is not going too high. Please take all medications per the discharge list below. Please ensure you are eating food before taking your short acting insulin at home. It is recommended that you see your primary care physician (PCP) within one week of hospital discharge to ensure you are doing well, to recheck your blood pressure and to review your medications. It was a pleasure taking care of you! Please call if you have any questions or problems. You can reach a [facility] hospitalist on duty at [facility] 24 hours a day by calling [phone]. Take care of yourself. Nallely Iyer, [facility] Pending Studies at Discharge: No Stand-Alone Forms: My [facility] Medications and DC Order Prescriptions: New cefdinir 300 mg Capsule 300 mg PO Q12H Qty: 6 RF: 0 ondansetron HCl [Zofran] 4 mg tablet 4 mg PO DAILY PRN (Reason: nausea and vomiting) Qty: 10 RF: 0 lisinopril 10 mg Tablet 10 mg PO QAM Qty: 30 RF: 0 Continued clonazepam 1 mg tablet 1 mg PO HS RF: 0 oxycodone-acetaminophen [Percocet] 5-325 mg tablet 1 tab PO TID PRN (Reason: Pain) RF: 0 isosorbide mononitrate 120 mg tablet extended release 24 hr 120 mg PO QAM RF: 0 polyethylene glycol 3350 [Miralax] 17 gram/dose Powder 17 g PO QAM RF: 0 carvedilol 12.5 mg tablet 12.5 mg PO AMPM RF: 0 topiramate 25 mg tablet 25 mg PO BID RF: 0 terazosin 1 mg capsule 1 mg PO HS RF: 0 aspirin 81 mg Tablet,Delayed Release (Dr/Ec) 81 mg PO QAM RF: 0 amlodipine 10 mg tablet 10 mg PO QAM RF: 0 hydralazine 100 mg tablet 100 mg PO TID RF: 0 pantoprazole 40 mg tablet,delayed release (DR/EC) 40 mg PO QAM RF: 0 nitroglycerin [Nitrostat] 0.4 mg Tablet, Sublingual 0.4 mg sublingual DIRECTED PRN (Reason: Chest Pain) RF: 0 gabapentin 300 mg capsule 300 mg PO TID RF: 0 fluticasone propionate 50 mcg/actuation spray,suspension 2 spray intranasal QAM RF: 0 sertraline 50 mg tablet 50 mg PO QAM RF: 0 insulin lispro [Humalog KwikPen Insulin] 100 unit/mL insulin pen 10 unit subcut TIDM RF: 0 rosuvastatin 40 mg tablet 40 mg PO HS RF: 0 Lantus Solostar U-100 Insulin 100 unit/mL (3 mL) insulin pen 20 unit subcut BID RF: 0 cholecalciferol (vitamin D3) [Vitamin D3] 1,000 unit Capsule 1,000 unit PO DAILY RF: 0 baclofen 10 mg tablet 5 mg PO BID PRN (Reason: Pain) RF: 0 diclofenac sodium 1 % gel 1 ea TOPICAL BID PRN (Reason: Pain) RF: 0 famotidine 20 mg tablet 20 mg PO DAILY RF: 0 furosemide 40 mg tablet 40 mg PO QAM RF: 0 ondansetron HCl 8 mg tablet 8 mg PO TID PRN (Reason: Nausea) RF: 0 sennosides-docusate sodium [Senna-S] 8.6-50 mg Tablet 2 tab-cap PO HS PRN (Reason: Constipation) RF: 0 nystatin 100,000 unit/gram Powder 1 applic TOPICAL TID PRN (Reason: Skin Irritation) RF: 0 fenofibrate nanocrystallized 145 mg Tablet 145 mg PO DAILY RF: 0 Lactinex 1 million cell Tablet,Chewable 1 tab PO DAILY RF: 0 potassium chloride [Klor-Con M10] 10 mEq tablet,ER particles/crystals 40 meq PO DAILY RF: 0 Discontinued clonidine HCl 0.2 mg Tablet 0.2 mg PO BID RF: 0 Discharge Orders: Discharge Order (Routine); Ordered 12/08/20 Ordered By: Nallely Sarabia/Other Patient Handouts: Hypoglycemia (Low Blood Sugar), Managing Type 2 Diabetes Admission Data Admit Date/Time: 12/05/20 04:14 Attending Provider: Nallely Iyer Admit Provider: Zaid Felipe Primary Care Provider: Eric Bullock Other Providers: Stefan Preciado ; Zaid Felipe Other Interventions: Discharge Summary Assessment (RN) Last Done: 12/08/20 12:19
== END 2020-12-08 13:47 | disposition home or self-care (01) | DRG 637 ==
LOC: ED 00:22 → SUATTDRO 04:14 → 2W 04:14 → 3W 12-07 13:23 → 3N 12-07 20:15

== ENCOUNTER 2021-02-13 15:10 | Inpatient (IN) ==
[2021-02-13] MEDS ORDERED: SODIUM CHLORIDE 0.9% 500 ML IV ONE (15:27)
[2021-02-13 15:52] LABS: Basophils # (auto) 0.02 K/uL (0-0.2); Basophils % (auto) 0.2 %; Eosinophils # (auto) 0.18 K/uL (0-0.5); Eosinophils % (auto) 1.6 %; Hemoglobin 9.6 g/dL (12.0-16.0); Immature Granulocytes # (auto) 0.03 K/uL (0.00-0.02); Immature Granulocytes % (auto) 0.3 %; Mean Corpuscular Volume 93.8 fL (80-100); Mean Platelet Volume 9.4 fL (7.4-10.4); Monocytes # (auto) 0.67 K/uL (0.11-0.59); Monocytes % (auto) 6.1 %; Neutrophils # (auto) 6.94 K/uL (1.4-6.5); Neutrophils % (auto) 62.8 %; Platelet Count 226 K/uL (130-400); RDW Coefficient of Variation 13.9 % (11.5-14.5); RDW Standard Deviation 47.9 fL (36.4-46.3); White Blood Count 11.04 K/uL (4.8-10.8)
--- NOTE | 2021-02-13 15:58 | Emergency Department Note ---
Impression & Plan Acute metabolic encephalopathy, Acute UTI, Hypertension, CKD (chronic kidney disease) ED Provider Note NAME: DONNA CERNA AGE: 75 SEX: F ARRIVES VIA: Ambulance INFORMANT: Patient, ED PROVIDER(S): Raheem Floyd MD CHIEF COMPLAINT: Altered mental status. PLAN: Disposition: Admit MEDICAL DECISION MAKING: The patient is a 75-year-old woman with a past medical history of morbid obesity, hypertension, hyperlipidemia, CKD, CHF, CAD, insulin-dependent diabetes, paroxysmal atrial fibrillation, adjustment disorder who [facility] from home via EMS after family concern for altered mental status where they thought she was not responsive. She was found by EMS slumped in her recliner and was alert upon attempting to move her. At that point she was answering questions appropriately. Her BSG was in the upper 100s. During that time physical therapy had arrived to the home as was scheduled and noted that her mental status had changed from when they had previously seen her. Patient was seen in emergency department 2 days ago for pain related to pressure ulcer. She had unremarkable evaluation was discharged home to plan follow-up with wound care. On arrival the patient is chronically ill-appearing, fatigued but in no acute distress, afebrile with blood pressure 180s/80s and vital signs otherwise stable. She is alert to voice, follows commands and exhibits generalized weakness throughout with no focal neurologic deficits. She has generalized weakness in all extremities with 3/5 strength. EKG without overt acute ischemia. Chest x-ray negative for acute cardiopulmonary process. WBC 11K, nonspecific. H/H 9.6/38 similar to prior values. Platelets within normal limits. VBG is unremarkable. Chemistry without metabolic acidosis. Creatinine 1.6 within prior range of values in setting of CKD. Lactate 1.0, within normal limits. Electrolytes without significant abnormality. LFTs witho ut significant abnormality. Ammonia is not elevated. Troponin negative/undetectable. BNP 2K, nonspecific and approximate to prior values. Lipase is not elevated. Procalcitonin is undetectable. TSH within normal limits. UA is suspicious for infection with positive nitrites, leukoesterase and WBCs and 4+ bacteria albeit with epithelial cells present. COVID-[address] of the head negative for acute process. CT abdomen pelvis also negative for acute process. Review of the patient's medical record shows a recent history of a resistant Pseudomonas from a wound culture. Therefore will initiate treatment for UTI with pseudomonal coverage based on this culture for now. Zosyn ordered. Suspect symptoms related to metabolic encephalopathy related to UTI and suspected polypharmacy. Case was discussed with Lana Lam, with Dr. Jaylon Schwartz hospitalist who will evaluate the patient for admission. Triage Nursing notes reviewed and agree them. Additional history obtained from EMS Prior medical records reviewed Vital Signs: reviewed and remarkable for hypertension. Differential diagnosis: Infection, dehydration, metabolic abnormality, hypo/hyperglycemia, electrolyte disturbance, anemia, hypoxia, cardiac sources, intracerebral event, toxicologic, neurologic, as well as other pathologies. ER treatment provided: See below. Diagnostics interpreted by me: ECG: Normal sinus rhythm, 86 bpm, no ectopy, likely LVH, no overt ST elevation. Cardiac Monitoring: An order for continuous cardiac monitoring was placed and demonstrated normal sinus rhythm, 86 bpm, no ectopy. Laboratory studies: See below Imaging studies: See below Consultation(s): Lana Lam, with Dr. Jaylon Schwartz hospitalist who will evaluate the patient for admission HPI: The patient is a 75-year-old woman with a past medical history of morbid obesity, hypertension, hyperlipidemia, CKD, CHF, CAD, insulin-dependent diabetes, paroxysmal atrial fibrillation, adjustment disorder who presents to the emergency department from home via EMS after family concern for altered mental status where they thought she was not responsive. She was found by EMS slumped in her recliner and was alert upon attempting to move her. At that point she was answering questions appropriately. Her BSG was in the upper 100s. During that time physical therapy had arrived to the home as was scheduled and noted that her mental status had changed from when they had previously seen her. Patient was seen in emergency department 2 days ago for pain related to pressure ulcer. She had unremarkable evaluation was discharged home to plan follow-up with wound care. ROS: See above HPI for pertinent positives & negatives. A total of 10 systems reviewed and were otherwise negative. PAST MEDICAL HISTORY:See Below PAST SURGICAL HISTORY:See Below FAMILY HISTORY:See Below SOCIAL HISTORY:See Below HOME MEDICATIONS:See Below ALLERGIES:See Below VITALS:See Below PHYSICAL EXAMINATION: GENERAL: Awake and alert to soft voice, chronically ill-appearing, in no distress HENT: Normocephalic, atraumatic. Oropharynx unremarkable. EYES: Normal conjunctiva. Sclera non-icteric. NECK: Supple. No nuchal rigidity. FROM. No JVD. RESPIRATORY: Clear to auscultation. CARDIAC: Regular rate, normal rhythm. Extremities warm and well perfused. Pulses equal. ABDOMEN: Soft, non-distended. No tenderness to palpation. No rebound or guarding. No masses. RECTAL: Deferred. MUSCULOSKELETAL: Chest examination reveals no tenderness. The back is symmetrical on inspection without obvious abnormality. There is no CVA tenderness to palpation. No joint edema. LOWER EXTREMITIES: Calves are equal size bilaterally and non-tender. 2+ BLE edema. No discoloration. NEURO: Drowsy, Awake and alert to soft voice. AO x 3. She is aware she is in the hospital/emergency department. No focal sensory or motor deficits noted. Generalized weakness throughout with 3/5 strength and SILT x 4 extremities. SKIN: No rash or jaundice noted. Raheem Floyd MD Past Med/Surg History Medical History Adjustment disorder CAD (coronary artery disease) CHF (congestive heart failure) CKD (chronic kidney disease), stage III Encephalopathy acute GERD (gastroesophageal reflux disease) HLD (hyperlipidemia) Hypertension Hyponatremia IBS (irritable bowel syndrome) Insulin dependent diabetes mellitus Morbid obesity Paroxysmal A-fib Surgical History H/O hernia repair H/O: H/O: hysterectomy S/P cholecystectomy Family History Brother Prostate cancer Father Diabetes Social History Smoking Status: Unknown if ever smoked Second Hand Exposure: No; Hx Alcohol Use: No Hx Substance Use: No Preferred Language: Malay Communication Ability: Impaired Visual Impairment: No Limitations Rn Float Required: No Beliefs That Will Affect Care: None marital status: / Current Living Situation: Family Other Information That Helps Us Care for You: No Feels Safe at Home: Yes Safety Concerns: Feels Safe At This Time Assistive Devices: Glasses and Walker Allergies Allergies Allergy/AdvReac Type Severity Reaction Status Date / Time loratadine Allergy Intermediate MOUTH Verified 02/13/21 16:10 SWELLING diphenhydramine AdvReac Intermediate GMG-SHAKING Verified 02/13/21 16:10 [From Benadryl] & SWEATING metformin AdvReac Intermediate causes Verified 02/13/21 16:10 kidney problems Sulfa (Sulfonamide AdvReac Intermediate Unknown Verified 02/13/21 16:10 Antibiotics) sulfamethoxazole AdvReac Intermediate GMG-RENAL Verified 02/13/21 16:10 COMPLICATIONS trimethoprim AdvReac Intermediate GMG-RENAL Verified 02/13/21 16:10 COMPLICATIONS Vywdszl-Wop-Gya Reductase AdvReac Mild Gastrointestinal Verified 02/13/21 16:10 Inhibitor Upset Home Meds Home Medications Medication Instructions Recorded Confirmed Lantus Solostar U-100 Insulin 20 unit SUBCUT BID 02/14/19 02/13/21 amlodipine 10 mg PO QAM 02/14/19 02/13/21 carvedilol 12.5 mg PO AMPM 02/14/19 02/13/21 fluticasone propionate 2 spray INTRANASAL QAM 02/14/19 02/13/21 gabapentin 300 mg PO TID 02/14/19 02/13/21 hydralazine 100 mg PO TID 02/14/19 02/13/21 insulin lispro [Humalog KwikPen 10 unit SUBCUT TIDM 02/14/19 02/13/21 Insulin] pantoprazole 40 mg PO QAM 02/14/19 02/13/21 rosuvastatin 40 mg PO HS 02/14/19 02/13/21 sertraline 50 mg PO QAM 02/14/19 02/13/21 terazosin 1 mg PO HS 02/14/19 02/13/21 topiramate 25 mg PO BID 02/14/19 02/13/21 clonazepam 1 mg PO HS 03/02/19 02/13/21 isosorbide mononitrate 120 mg PO QAM 04/23/19 02/13/21 oxycodone-acetaminophen [Percocet] 1 tab PO TID PRN 04/23/19 02/13/21 polyethylene glycol 3350 [Miralax] 17 g PO QAM 04/23/19 02/13/21 baclofen 5 mg PO BID PRN 08/16/20 02/13/21 diclofenac sodium 1 ea TOPICAL BID PRN 08/16/20 02/13/21 famotidine 20 mg PO DAILY 08/16/20 02/13/21 furosemide 40 mg PO QAM 08/16/20 02/13/21 ondansetron HCl 8 mg PO TID PRN 08/16/20 02/13/21 Lactinex 1 tab PO DAILY 10/27/20 02/13/21 nystatin 1 applic TOPICAL TID PRN 10/27/20 02/13/21 potassium chloride [Klor-Con M10] 10 meq PO DAILY 12/05/20 02/13/21 aspirin [Aspir-81] 81 mg PO DAILY 02/13/21 02/13/21 zinc oxide 1 applic TOPICAL DIRECTED PRN 02/13/21 02/13/21 Previous Rx's Medication Instructions Recorded lisinopril 10 mg PO QAM #30 tab 12/08/20 Results & Data (ED) Vital Signs Vital Signs - 24 hr 02/13/21 15:22 02/13/21 15:26 02/13/21 15:30 Temperature 37.4 C Temperature Source Oral Pulse Rate 93 H 90 91 H Pulse Rate from SpO2 Sensor 96 H 91 H Respiratory Rate 21 Respiratory Effort / Characteristics Non-Labored Spontaneous Blood Pressure 186/85 H Blood Pressure Mean 118 Pulse Oximetry 99 99 98 Oxygen Delivery Method Room Air Room Air Room Air Sepsis New/Unexplained Change in Mental Status Yes Sepsis Action Taken by Nursing Physician Notified 02/13/21 15:45 02/13/21 15:52 02/13/21 16:00 Temperature Temperature Source Pulse Rate 87 83 Pulse Rate from SpO2 Sensor 89 82 Respiratory Rate Respiratory Effort / Characteristics Non-Labored Spontaneous Blood Pressure 217/99 H Blood Pressure Mean 138 Pulse Oximetry 98 97 Oxygen Delivery Method Room Air Room Air Room Air Sepsis New/Unexplained Change in Mental Status Sepsis Action Taken by Nursing 02/13/21 16:15 02/13/21 16:17 02/13/21 16:20 Temperature Temperature Source Pulse Rate 96 H 89 87 Pulse Rate from SpO2 Sensor 94 H 89 88 Respiratory Rate Respiratory Effort / Characteristics Blood Pressure 224/77 H 216/87 H Blood Pressure Mean 126 130 Pulse Oximetry 99 98 98 Oxygen Delivery Method Room Air Room Air Room Air Sepsis New/Unexplained Change in Mental Status Sepsis Action Taken by Nursing 02/13/21 16:22 02/13/21 16:30 02/13/21 16:52 Temperature Temperature Source Pulse Rate 91 H Pulse Rate from SpO2 Sensor 89 Respiratory Rate Respiratory Effort / Characteristics Non-Labored Spontaneous Non-Labored Spontaneous Blood Pressure 186/115 H Blood Pressure Mean 138 Pulse Oximetry 98 Oxygen Delivery Method Room Air Room Air Room Air Sepsis New/Unexplained Change in Mental Status Sepsis Action Taken by Nursing 02/13/21 17:00 02/13/21 17:20 02/13/21 17:30 Temperature Temperature Source Pulse Rate 90 94 H Pulse Rate from SpO2 Sensor 91 H 92 H Respiratory Rate 15 Respiratory Effort / Characteristics Non-Labored Spontaneous Non-Labored Spontaneous Blood Pressure 191/71 H Blood Pressure Mean 111 Pulse Oximetry 97 98 Oxygen Delivery Method Room Air Room Air Sepsis New/Unexplained Change in Mental Status Sepsis Action Taken by Nursing 02/13/21 17:31 02/13/21 17:32 02/13/21 18:00 Temperature Temperature Source Pulse Rate 91 H 92 H 86 Pulse Rate from SpO2 Sensor 90 92 H 84 Respiratory Rate 24 17 14 Respiratory Effort / Characteristics Non-Labored Blood Pressure 186/80 H 184/83 H Blood Pressure Mean 115 116 Pulse Oximetry 97 96 97 Oxygen Delivery Method Room Air Room Air Sepsis New/Unexplained Change in Mental Status Sepsis Action Taken by Nursing Laboratory Data Attestation: I reviewed the patient's lab results. Result diagrams: 02/13/21 15:42 02/13/21 15:42 Lab Results 02/13/21 02/13/21 02/13/21 Range/Units 15:37 15:37 15:38 WBC (4.8-10.8) K/uL RBC (4.2-5.4) M/uL Hgb (12.0-16.0) g/dL Hct (37-47) % MCV (80-100) fL MCH (25-34) pg MCHC (32-36) g/dL RDW Std Deviation (36.4-46.3) fL RDW Coeff of Isabel (11.5-14.5) % Plt Count (130-400) K/uL MPV (7.4-10.4) fL Immature Gran % (Auto) % Neut % (Auto) % Lymph % (Auto) % [place] % (Auto) % Eos % (Auto) % Baso % (Auto) % Neut # (Auto) (1.4-6.5) K/uL Lymph # (Auto) (1.2-3.4) K/uL [place] # (Auto) (0.11-0.59) K/uL Eos # (Auto) (0-0.5) K/uL Baso # (Auto) (0-0.2) K/uL Immature Gran # (Auto) (0.00-0.02) K/uL PT (9.0-12.0) Seconds INR (0.9-1.1) APTT (21.0-31.0) Seconds PTT Ratio VBG pH 7.39 (7.36-7.41) VBG pCO2 49 (38-50) mmHg VBG pO2 49 mmHg VBG HCO3 29 mmol/L VBG O2 Saturation 85.0 % VBG Base Excess 3.3 mEq/L Barometric Pressure 732.7 mm/Hg Sodium (136-145) mmol/L Potassium (3.5-5.1) mmol/L Chloride (98-107) mmol/L Carbon Dioxide (21-32) mmol/L Anion Gap (3-11) BUN (7-18) mg/dl Creatinine (0.6-1.2) mg/dl Est Cr Clr Drug Dosing Est GFR ( Amer) ml/min Est GFR (Non-Af Amer) ml/min BUN/Creatinine Ratio (10-20) Glucose (70-99) mg/dl Lactate 1.0 (0.4-2.0) mmol/L Calcium (8.5-10.1) mg/dl Phosphorus (2.5-4.9) mg/dl Magnesium (1.8-2.4) mg/dl Total Bilirubin (0.2-1) mg/dl Direct Bilirubin (0-0.2) mg/dl AST (15-37) U/L ALT (12-78) U/L Alkaline Phosphatase (45-117) U/L Ammonia 20.4 (11-32) umol/L Total Creatine Kinase (26-192) U/L Troponin I (0-0.045) ng/ml NT-Pro-B Natriuret Pep (0-900) pg/ml Total Protein (6.4-8.2) gm/dl Albumin (3.4-5.0) gm/dl Globulin (2.5-4.0) gm/dl Albumin/Globulin Ratio (0.9-2) Lipase (73-393) U/L Procalcitonin (0-0.5) ng/ml TSH (0.300-4.500) uIu/ml Urine Color Urine Appearance (Clear) Urine pH (4.5-7.5) Ur Specific Burt (1.000-1.030) Urine Protein (Negative) Urine Glucose (UA) (Negative) Urine Ketones (Negative) Urine Blood (Negative) Urine Nitrite (Negative) Urine Bilirubin (Negative) Urine Urobilinogen (Negative) Ur Leukocyte Esterase (Negative) Urine WBC (Auto) (0-5) /hpf Urine RBC (Auto) (0-4) /hpf U Hyaline Cast (Auto) (0-5) /lpf U Epithel Cells (Auto) (0-5) /lpf Urine Bacteria (Auto) (Negative) COVID-19 Eval Order SARS-CoV-2 (PCR) (Negative) 02/13/21 02/13/21 02/13/21 Range/Units 15:42 15:42 15:42 WBC 11.04 H (4.8-10.8) K/uL RBC 3.20 L (4.2-5.4) M/uL Hgb 9.6 L (12.0-16.0) g/dL Hct 30.0 L (37-47) % MCV 93.8 (80-100) fL MCH 30.0 (25-34) pg MCHC 32.0 (32-36) g/dL RDW Std Deviation 47.9 H (36.4-46.3) fL RDW Coeff of Isabel 13.9 (11.5-14.5) % Plt Count 226 (130-400) K/uL MPV 9.4 (7.4-10.4) fL Immature Gran % (Auto) 0.3 % Neut % (Auto) 62.8 % Lymph % (Auto) 29.0 % [place] % (Auto) 6.1 % Eos % (Auto) 1.6 % Baso % (Auto) 0.2 % Neut # (Auto) 6.94 H (1.4-6.5) K/uL Lymph # (Auto) 3.20 (1.2-3.4) K/uL [place] # (Auto) 0.67 H (0.11-0.59) K/uL Eos # (Auto) 0.18 (0-0.5) K/uL Baso # (Auto) 0.02 (0-0.2) K/uL Immature Gran # (Auto) 0.03 H (0.00-0.02) K/uL PT (9.0-12.0) Seconds INR (0.9-1.1) APTT (21.0-31.0) Seconds PTT Ratio VBG pH (7.36-7.41) VBG pCO2 (38-50) mmHg VBG pO2 mmHg VBG HCO3 mmol/L VBG O2 Saturation % VBG Base Excess mEq/L Barometric Pressure mm/Hg Sodium 139 (136-145) mmol/L Potassium 4.5 (3.5-5.1) mmol/L Chloride 108 H (98-107) mmol/L Carbon Dioxide 23 (21-32) mmol/L Anion Gap 8.0 (3-11) BUN 27 H (7-18) mg/dl Creatinine 1.65 H (0.6-1.2) mg/dl Est Cr Clr Drug Dosing Not Reportable Est GFR ( Amer) 34.8 ml/min Est GFR (Non-Af Amer) 30.1 ml/min BUN/Creatinine Ratio 16.1 (10-20) Glucose 184 H (70-99) mg/dl Lactate (0.4-2.0) mmol/L Calcium 9.0 (8.5-10.1) mg/dl Phosphorus 3.7 (2.5-4.9) mg/dl Magnesium 2.1 (1.8-2.4) mg/dl Total Bilirubin 0.3 (0.2-1) mg/dl Direct Bilirubin 0.2 (0-0.2) mg/dl AST 15 (15-37) U/L ALT 17 (12-78) U/L Alkaline Phosphatase 71 (45-117) U/L Ammonia (11-32) umol/L Total Creatine Kinase 60 (26-192) U/L Troponin I < 0.015 (0-0.045) ng/ml NT-Pro-B Natriuret Pep 2037 H (0-900) pg/ml Total Protein 7.2 (6.4-8.2) gm/dl Albumin 3.0 L (3.4-5.0) gm/dl Globulin 4.2 H (2.5-4.0) gm/dl Albumin/Globulin Ratio 0.7 L (0.9-2) Lipase 81 (73-393) U/L Procalcitonin < 0.05 (0-0.5) ng/ml TSH 0.801 (0.300-4.500) uIu/ml Urine Color Urine Appearance (Clear) Urine pH (4.5-7.5) Ur Specific Burt (1.000-1.030) Urine Protein (Negative) Urine Glucose (UA) (Negative) Urine Ketones (Negative) Urine Blood (Negative) Urine Nitrite (Negative) Urine Bilirubin (Negative) Urine Urobilinogen (Negative) Ur Leukocyte Esterase (Negative) Urine WBC (Auto) (0-5) /hpf Urine RBC (Auto) (0-4) /hpf U Hyaline Cast (Auto) (0-5) /lpf U Epithel Cells (Auto) (0-5) /lpf Urine Bacteria (Auto) (Negative) COVID-19 Eval Order SARS-CoV-2 (PCR) (Negative) 02/13/21 02/13/21 02/13/21 Range/Units 15:42 15:44 15:44 WBC (4.8-10.8) K/uL RBC (4.2-5.4) M/uL Hgb (12.0-16.0) g/dL Hct (37-47) % MCV (80-100) fL MCH (25-34) pg MCHC (32-36) g/dL RDW Std Deviation (36.4-46.3) fL RDW Coeff of Isabel (11.5-14.5) % Plt Count (130-400) K/uL MPV (7.4-10.4) fL Immature Gran % (Auto) % Neut % (Auto) % Lymph % (Auto) % [place] % (Auto) % Eos % (Auto) % Baso % (Auto) % Neut # (Auto) (1.4-6.5) K/uL Lymph # (Auto) (1.2-3.4) K/uL [place] # (Auto) (0.11-0.59) K/uL Eos # (Auto) (0-0.5) K/uL Baso # (Auto) (0-0.2) K/uL Immature Gran # (Auto) (0.00-0.02) K/uL PT 10.1 (9.0-12.0) Seconds INR 1.0 (0.9-1.1) APTT > 139.0 H* (21.0-31.0) Seconds PTT Ratio > 5.3 VBG pH (7.36-7.41) VBG pCO2 (38-50) mmHg VBG pO2 mmHg VBG HCO3 mmol/L VBG O2 Saturation % VBG Base Excess mEq/L Barometric Pressure mm/Hg Sodium (136-145) mmol/L Potassium (3.5-5.1) mmol/L Chloride (98-107) mmol/L Carbon Dioxide (21-32) mmol/L Anion Gap (3-11) BUN (7-18) mg/dl Creatinine (0.6-1.2) mg/dl Est Cr Clr Drug Dosing Est GFR ( Amer) ml/min Est GFR (Non-Af Amer) ml/min BUN/Creatinine Ratio (10-20) Glucose (70-99) mg/dl Lactate (0.4-2.0) mmol/L Calcium (8.5-10.1) mg/dl Phosphorus (2.5-4.9) mg/dl Magnesium (1.8-2.4) mg/dl Total Bilirubin (0.2-1) mg/dl Direct Bilirubin (0-0.2) mg/dl AST (15-37) U/L ALT (12-78) U/L Alkaline Phosphatase (45-117) U/L Ammonia (11-32) umol/L Total Creatine Kinase (26-192) U/L Troponin I (0-0.045) ng/ml NT-Pro-B Natriuret Pep (0-900) pg/ml Total Protein (6.4-8.2) gm/dl Albumin (3.4-5.0) gm/dl Globulin (2.5-4.0) gm/dl Albumin/Globulin Ratio (0.9-2) Lipase (73-393) U/L Procalcitonin (0-0.5) ng/ml TSH (0.300-4.500) uIu/ml Urine Color Urine Appearance (Clear) Urine pH (4.5-7.5) Ur Specific Burt (1.000-1.030) Urine Protein (Negative) Urine Glucose (UA) (Negative) Urine Ketones (Negative) Urine Blood (Negative) Urine Nitrite (Negative) Urine Bilirubin (Negative) Urine Urobilinogen (Negative) Ur Leukocyte Esterase (Negative) Urine WBC (Auto) (0-5) /hpf Urine RBC (Auto) (0-4) /hpf U Hyaline Cast (Auto) (0-5) /lpf U Epithel Cells (Auto) (0-5) /lpf Urine Bacteria (Auto) (Negative) COVID-19 Eval Order Covid19 at [facility] SARS-CoV-2 (PCR) NEGATIVE (Negative) 02/13/21 Range/Units 16:10 WBC (4.8-10.8) K/uL RBC (4.2-5.4) M/uL Hgb (12.0-16.0) g/dL Hct (37-47) % MCV (80-100) fL MCH (25-34) pg MCHC (32-36) g/dL RDW Std Deviation (36.4-46.3) fL RDW Coeff of Isabel (11.5-14.5) % Plt Count (130-400) K/uL MPV (7.4-10.4) fL Immature Gran % (Auto) % Neut % (Auto) % Lymph % (Auto) % [place] % (Auto) % Eos % (Auto) % Baso % (Auto) % Neut # (Auto) (1.4-6.5) K/uL Lymph # (Auto) (1.2-3.4) K/uL [place] # (Auto) (0.11-0.59) K/uL Eos # (Auto) (0-0.5) K/uL Baso # (Auto) (0-0.2) K/uL Immature Gran # (Auto) (0.00-0.02) K/uL PT (9.0-12.0) Seconds INR (0.9-1.1) APTT (21.0-31.0) Seconds PTT Ratio VBG pH (7.36-7.41) VBG pCO2 (38-50) mmHg VBG pO2 mmHg VBG HCO3 mmol/L VBG O2 Saturation % VBG Base Excess mEq/L Barometric Pressure mm/Hg Sodium (136-145) mmol/L Potassium (3.5-5.1) mmol/L Chloride (98-107) mmol/L Carbon Dioxide (21-32) mmol/L Anion Gap (3-11) BUN (7-18) mg/dl Creatinine (0.6-1.2) mg/dl Est Cr Clr Drug Dosing Est GFR ( Amer) ml/min Est GFR (Non-Af Amer) ml/min BUN/Creatinine Ratio (10-20) Glucose (70-99) mg/dl Lactate (0.4-2.0) mmol/L Calcium (8.5-10.1) mg/dl Phosphorus (2.5-4.9) mg/dl Magnesium (1.8-2.4) mg/dl Total Bilirubin (0.2-1) mg/dl Direct Bilirubin (0-0.2) mg/dl AST (15-37) U/L ALT (12-78) U/L Alkaline Phosphatase (45-117) U/L Ammonia (11-32) umol/L Total Creatine Kinase (26-192) U/L Troponin I (0-0.045) ng/ml NT-Pro-B Natriuret Pep (0-900) pg/ml Total Protein (6.4-8.2) gm/dl Albumin (3.4-5.0) gm/dl Globulin (2.5-4.0) gm/dl Albumin/Globulin Ratio (0.9-2) Lipase (73-393) U/L Procalcitonin (0-0.5) ng/ml TSH (0.300-4.500) uIu/ml Urine Color Yellow Urine Appearance Clear (Clear) Urine pH 6.5 (4.5-7.5) Ur Specific Burt 1.008 (1.000-1.030) Urine Protein Negative (Negative) Urine Glucose (UA) Negative (Negative) Urine Ketones Negative (Negative) Urine Blood Negative (Negative) Urine Nitrite Positive A (Negative) Urine Bilirubin Negative (Negative) Urine Urobilinogen Negative (Negative) Ur Leukocyte Esterase 2+ H (Negative) Urine WBC (Auto) >30 H (0-5) /hpf Urine RBC (Auto) 0-4 (0-4) /hpf U Hyaline Cast (Auto) 1-5 (0-5) /lpf U Epithel Cells (Auto) 20-30 H (0-5) /lpf Urine Bacteria (Auto) 4+ H (Negative) COVID-19 Eval Order SARS-CoV-2 (PCR) (Negative) Administered Medications Hydralazine HCl (Hydralazine Hcl 20 Mg/Ml Vial) 10 mg IV Q6H PRN PRN Reason: hypertension Stop: 03/15/21 19:57 Last Admin: 02/13/21 20:58 Dose: 10 mg Documented by: [id number] Furosemide 40 mg/ Syringe 4 mls @ 4 mls/min IV [id number] CHINEDU Stop: 03/15/21 19:59 Last Admin: 02/13/21 20:40 Dose: 4 mls/min Documented by: [id number] Piperacillin Sod/Tazobactam (Sod 3.375 gm/ Dextrose) 115 mls @ 28.75 mls/hr IV Q8H CHINEDU; Protocol Stop: 02/20/21 21:59 Last Admin: 02/13/21 22:36 Dose: 28.8 mls/hr Documented by: [id number] Insulin Aspart (Insulin Aspart 100 Units/Ml 3 Ml Pen) 0 units SC ACHS CHINEDU Stop: 03/15/21 20:59 Last Admin: 02/13/21 20:42 Dose: 1 units Documented by: [id number] Cosigned by: [id number] Insulin Glargine (Insulin Glargine Solostar 100 Units/Ml 3 Ml Pen) 0 units SC BID CHINEDU; Protocol Stop: 03/15/21 20:59 Last Admin: 02/13/21 20:43 Dose: 16 units Documented by: [id number] Cosigned by: [id number] Discontinued Medications Sodium Chloride (Nss) 500 mls @ 999 mls/hr IV .Q31M ONE Stop: 02/13/21 15:57 Last Infusion: 02/13/21 17:25 Dose: 0 mls/hr Documented by: [id number] Admin: 02/13/21 16:25 Dose: 999 mls/hr Documented by: [id number] Piperacillin Sod/Tazobactam Sod (Zosyn) 4.5 gm in 120 mls @ 240 mls/hr IV NOW ONE Stop: 02/13/21 17:47 Last Infusion: 02/13/21 19:13 Dose: 0 mls/hr Documented by: [id number] Admin: 02/13/21 17:51 Dose: 240 mls/hr Documented by: [id number] Sodium Chloride (Nss) 500 mls @ 125 mls/hr IV .Q4H CHINEDU Stop: 03/15/21 17:29 Last Infusion: 02/13/21 22:07 Dose: 0 mls/hr Documented by: [id number] Admin: 02/13/21 17:51 Dose: 125 mls/hr Documented by: [id number] Imaging Data Radiologist's Impression: Chest X-Ray 02/13/21 15:22 SINGLE VIEW CHEST CLINICAL HISTORY: Sepsis. FINDINGS: An AP, portable, upright chest radiograph is compared to study dated 02/11/2021. The heart is enlarged noting atherosclerotic calcification of the thoracic aorta. The pulmonary vasculature is noncongested. Scarring/atelectasis is seen at the lung bases. No airspace consolidation or large pleural effusion is identified. No pneumothorax is seen. The skeletal structures are osteopenic. The bony thorax is grossly intact. Degenerative change is noted in the shoulders and thoracic spine. Cholecystectomy clips are seen in the right upper quadrant. IMPRESSION: Cardiomegaly with no acute cardiopulmonary abnormality. ACT 112: Negative or not required by law. Electronically signed by: Scott Tello M.D. 02/13/2021 4:38 PM Abdomen/Pelvis CT 02/13/21 15:24 CT SCAN OF THE ABDOMEN AND PELVIS WITHOUT IV CONTRAST CLINICAL HISTORY: Change in mental status. Low back pain. COMPARISON STUDY: Abdominal CT dated 02/14/2019. TECHNIQUE: CT scan of the abdomen and pelvis is performed from the lung bases to the proximal femora. Images are reviewed in the axial, sagittal, and coronal planes. IV contrast was not administered for this examination. Note that the examination was performed in significant suboptimal fashion without IV contrast. The examination is also significant compromise by motion artifact, as well as by streak artifact from the arms which could not be elevated above the abdomen. A dose lowering technique was utilized adhering to the principles of ALARA. CT DOSE: 1190.28 mGycm FINDINGS: Lung bases: The heart is normal in size and without pericardial effusion. The mitral annulus is densely calcified. The lung bases are clear. There is a tiny hiatal hernia. Liver: Evaluation of the liver is compromised by streak artifact. The unenhanced liver is normal in size, contour, and attenuation. There is no intrahepatic biliary ductal dilatation. Gallbladder: Surgically absent noting clips in the gallbladder fossa. Spleen: Normal in size and attenuation. Pancreas: The unenhanced pancreas is atrophic and grossly unremarkable. Adrenal glands: Unremarkable. Kidneys: The unenhanced kidneys are atrophic and without hydronephrosis. A small extrarenal pelvis is incidentally noted on the right. There are no renal calculi identified. There is no evidence of contour deforming renal mass lesion. Abdominal vasculature: The abdominal aorta is normal in course and caliber noting advanced atherosclerotic calcification. Bowel: There is no bowel obstruction. There are scattered colonic diverticula without CT evidence of acute diverticulitis. The appendix is well-visualized a nd normal. Peritoneum: There is no intraperitoneal free air or abdominal ascites. Lymphadenopathy: None. Pelvic viscera: The bladder is decompressed and a Griffin catheter and cannot be evaluated. The uterus is surgically absent. No adnexal lesion is seen. Skeletal structures: The skeletal structures are osteopenic. There is advanced lumbosacral spondylosis. No lytic or blastic lesions are seen. IMPRESSION: 1. Significantly suboptimal examination without IV contrast. The examination is also compromised by streak and motion. 2. No acute infectious or inflammatory findings are identified in the abdomen or pelvis. 3. No bowel obstruction. 4. Additional findings as above. ACT 112: Negative or not required by law. Electronically signed by: Scott Tello M.D. 02/13/2021 5:[address] 02/13/21 15:24 CT head/brain wo con CLINICAL HISTORY: ams COMPARISON STUDY: December 05, 2020 TECHNIQUE: Axial CT of the brain is performed from the vertex to the skull base. IV contrast was not administered for this examination. A dose lowering technique was utilized adhering to the principles of ALARA. CT DOSE: 906.34 mGycm FINDINGS: No intra or extra-axial mass lesions are visualized. There is no CT evidence of acute cortical infarction. There is no evidence of midline shift. There is no acute hemorrhage. No acute depressed calvarial fractures are visualized. Evaluation is slightly limited due to beam hardening artifact. Multiple calcifications are seen within bilateral basal ganglia, unchanged since prior study. Minimal atrophic changes of brain parenchyma are seen and associated with slight ex vacuo dilatation of ventricles. There is no evidence of acute sinusitis IMPRESSION: No acute intracranial hemorrhage, no midline shift or space occupying lesions. Limited exam as detailed above. ACT 112: Negative or not required by law. The above report was generated using voice recognition software. It may contain grammatical, syntax or spelling errors. Electronically signed by: Rhoda Turner DO 02/13/2021 5:21 PM Discharge Plan Visit Data Chief Complaint: Illness ED Provider: Raheem Floyd Discharge Problem: Acute metabolic encephalopathy, Acute UTI, Hypertension, CKD (chronic kidney disease) Patient Disposition: Admitted As Inpatient Discharge Instructions Interventions: ED Discharge Assessment Last Done: 02/13/21 19:14
[2021-02-13 16:04] LABS: Base Excess VBG 3.3 mEq/L; pH VBG 7.39 (7.36-7.41)
[2021-02-13 16:06] LABS: Prothrombin Time 10.1 Seconds (9.0-12.0)
[2021-02-13 16:09] LABS: Alanine Aminotransferase 17 U/L (12-78); Aspartate Aminotransferase 15 U/L (15-37); BUN Creatinine Ratio 16.1 (10-20); Bilirubin Direct 0.2 mg/dl (0-0.2); Bilirubin,Total 0.3 mg/dl (0.2-1); Blood Urea Nitrogen 27 mg/dl (7-18); Carbon Dioxide 23 mmol/L (21-32); Chloride 108 mmol/L (98-107); Est GFR (African American) 34.8 ml/min; Est GFR (Non-African American) 30.1 ml/min; Glucose 184 mg/dl (70-99); Lipase 81 U/L (73-393); Magnesium 2.1 mg/dl (1.8-2.4); Potassium 4.5 mmol/L (3.5-5.1); Sodium 139 mmol/L (136-145)
[2021-02-13 16:18] LABS: Albumin Globulin Ratio 0.7 (0.9-2); Alkaline Phosphatase 71 U/L (45-117); Creatine Kinase 60 U/L (26-192); Globulin 4.2 gm/dl (2.5-4.0); NT Pro B Type Natriuretic Pept 2037 pg/ml (0-900); Phosphorus 3.7 mg/dl (2.5-4.9); Thyroid Stimulating Hormone 0.801 uIu/ml (0.300-4.500); Total Protein 7.2 gm/dl (6.4-8.2); Troponin I < 0.015 ng/ml (0-0.045)
--- NOTE | 2021-02-13 16:36 | Electrocardiogram Report ---
Test Reason : Blood Pressure : / mmHG Vent. Rate : 086 BPM Atrial Rate : 086 BPM P-R Int : 200 ms QRS Dur : 090 ms QT Int : 348 ms P-R-T Axes : 051 -51 019 degrees QTc Int : 416 ms Normal sinus rhythm Left axis deviation Poor R wave progression, consider anterior [place] vs. lead placement vs. LVH Abnormal ECG When compared with ECG of 11-FEB-2021 14:23, No significant change was found Confirmed by Jesús Sprageu ([id number]) on 02/13/2021 4:36:23 PM Referred By: REFERRED SELF Confirmed By:Davin Sprague
--- NOTE | 2021-02-13 16:40 | XRay Report ---
SINGLE VIEW CHEST CLINICAL HISTORY: Sepsis. FINDINGS: An AP, portable, upright chest radiograph is compared to study dated 02/11/2021. The heart i s enlarged noting atherosclerotic calcification of the thoracic aorta. The pulmonary vasculature is n oncongested. Scarring/atelectasis is seen at the lung bases. No airspace consolidation or large pleur al effusion is identified. No pneumothorax is seen. The skeletal structures are osteopenic. The bony thorax is grossly intact. Degenerative change is noted in the shoulders and thoracic spine. Cholecyst ectomy clips are seen in the right upper quadrant. IMPRESSION: Cardiomegaly with no acute cardiopulmonary abnormality. ACT 112: Negative or not required by law. Electronically signed by: Scott Tello M.D. 02/13/2021 4:38 PM
[2021-02-13 16:42] LABS: Appearance Urine Clear (Clear); Bacteria Urine Automated 4+ (Negative); Bilirubin Urine Negative (Negative); Blood Urine Negative (Negative); Color Urine Yellow; Epithelial Cell Urine Auto 20-30 /lpf (0-5); Glucose Urine UA Negative (Negative); Ketones Urine Negative (Negative); Leukocyte Esterase Urine 2+ (Negative); Nitrite Urine Positive (Negative); Protein Urine Negative (Negative); RBC Urine Automated 0-4 /hpf (0-4); Specific Gravity Urine 1.008 (1.000-1.030); Urobilinogen Urine Negative (Negative); WBC Urine Automated >30 /hpf (0-5); pH Urine 6.5 (4.5-7.5)
[2021-02-13 16:53] LABS: Partial Thromboplastin Ratio > 5.3; Partial Thromboplastin Time > 139.0 Seconds (21.0-31.0)
[2021-02-13] MEDS ORDERED: PIPERACILL/TAZOBAC CONSULT ACTIVE PRN ×2 (17:18→19:42)
[2021-02-13] MEDS ORDERED: PIPERACILLIN/TAZOBACTAM 4.5 GM/120 ML BAG IV ONE (17:18)
--- NOTE | 2021-02-13 17:23 | CT Scan Report ---
CT head/brain wo con CLINICAL HISTORY: ams COMPARISON STUDY: December 05, 2020 TECHNIQUE: Axial CT of the brain is performed from the vertex to the skull base. IV contrast was not administered for this examination. A dose lowering technique was utilized adhering to the principles of ALARA. CT DOSE: 906.34 mGycm FINDINGS: No intra or extra-axial mass lesions are visualized. There is no CT evidence of acute cortical infarc tion. There is no evidence of midline shift. There is no acute hemorrhage. No acute depressed calvar ial fractures are visualized. Evaluation is slightly limited due to beam hardening artifact. Multiple calcifications are seen within bilateral basal ganglia, unchanged since prior study. Minimal atrophic changes of brain parenchyma are seen and associated with slight ex vacuo dilatation of ventricles. There is no evidence of acute sinusitis IMPRESSION: No acute intracranial hemorrhage, no midline shift or space occupying lesions. Limited exam as detailed above. ACT 112: Negative or not required by law. The above report was generated using voice recognition software. It may contain grammatical, syntax o r spelling errors. Electronically signed by: Rhoda Turner DO 02/13/2021 5:21 PM
[2021-02-13] MEDS ORDERED: SODIUM CHLORIDE 0.9% 500 ML IV SCH (17:30)
--- NOTE | 2021-02-13 17:35 | CT Scan Report ---
CT SCAN OF THE ABDOMEN AND PELVIS WITHOUT IV CONTRAST CLINICAL HISTORY: Change in mental status. Low back pain. COMPARISON STUDY: Abdominal CT dated 02/14/2019. TECHNIQUE: CT scan of the abdomen and pelvis is performed from the lung bases to the proximal femora. Images are reviewed in the axial, sagittal, and coronal planes. IV contrast was not administered for this examination. Note that the examination was performed in significant suboptimal fashion without IV contrast. The examination is also significant compromise by motion artifact, as well as by streak artifact from the arms which could not be elevated above the abdomen. A dose lowering technique was u tilized adhering to the principles of ALARA. CT DOSE: 1190.28 mGycm FINDINGS: Lung bases: The heart is normal in size and without pericardial effusion. The mitral annulus is dense ly calcified. The lung bases are clear. There is a tiny hiatal hernia. Liver: Evaluation of the liver is compromised by streak artifact. The unenhanced liver is normal in s ize, contour, and attenuation. There is no intrahepatic biliary ductal dilatation. Gallbladder: Surgically absent noting clips in the gallbladder fossa. Spleen: Normal in size and attenuation. Pancreas: The unenhanced pancreas is atrophic and grossly unremarkable. Adrenal glands: Unremarkable. Kidneys: The unenhanced kidneys are atrophic and without hydronephrosis. A small extrarenal pelvis is incidentally noted on the right. There are no renal calculi identified. There is no evidence of cont our deforming renal mass lesion. Abdominal vasculature: The abdominal aorta is normal in course and caliber noting advanced atheroscle rotic calcification. Bowel: There is no bowel obstruction. There are scattered colonic diverticula without CT evidence of acute diverticulitis. The appendix is well-visualized and normal. Peritoneum: There is no intraperitoneal free air or abdominal ascites. Lymphadenopathy: None. Pelvic viscera: The bladder is decompressed and a Griffin catheter and cannot be evaluated. The uterus is surgically absent. No adnexal lesion is seen. Skeletal structures: The skeletal structures are osteopenic. There is advanced lumbosacral spondylosi s. No lytic or blastic lesions are seen. IMPRESSION: 1. Significantly suboptimal examination without IV contrast. The examination is also compromised by s treak and motion. 2. No acute infectious or inflammatory findings are identified in the abdomen or pelvis. 3. No bowel obstruction. 4. Additional findings as above. ACT 112: Negative or not required by law. Electronically signed by: Scott Tello M.D. 02/13/2021 5:34 PM
--- NOTE | 2021-02-13 19:15 | History & Physical Report ---
Date of Service February 13, 2021 Assessment & Plan (1) Acute metabolic encephalopathy: (2) Somnolence: (3) UTI (urinary tract infection): This is a 75-year-old female who has significant past medical history of morbid obesity, insulin-dependent T2DM, diabetic polyneuropathy, nephropathy, CKD stage IV, CAD, chronic HFpEF, HTN, HLD, secondary hyperparathyroidism, bilateral lymphedema, mood disorder who presents ED secondary to ulcer mental status/sedation prior to arrival. Patient presents with altered mental status and hypersomnolence. She is arousable to verbal stimulation and is oriented to person and place. At baseline patient is alert and oriented x3, manages medications and able to do own ADLs but otherwise sedentary. Spoke to sister, who patient lives with, and stated she was sleeping in a recliner and unable to wake her up which is why she called EMS. She does not meet SIRS or sepsis criteria in ED. She does have altered mental status but otherwise I am not finding any acute neuro focal deficit. It does appear that she may have acute UTI which may be contributing. She is also on multiple sedating medications that may be playing a role including baclofen, clonazepam, gabapentin, oxycodone -unknown when patient took last dose of medications or if she is taking Admit to PCU SIRS/sepsis not entirely ruled out given confusion Blood and urine cultures are pending Started on IV Zosyn, -wound culture from 01/29 from left leg grew Pseudomonas with resistance to cephalosporins and meropenem which is why IV Zosyn was chosen given evidence of overload on exam will avoid IVF at this point Keep n.p.o. for now until more arousable Will hold p.o. meds until able to tolerate p.o. (4) Acute on chronic heart failure with preserved ejection fraction (HFpEF): (5) CAD (coronary artery disease): Last echo 2017 revealed EF 60 to 65% Volume overload on exam, chest x-ray clear Elevated proBNP from baseline, 2036, previously 1220 Given n.p.o. status placed on Lasix IV twice daily 40 mg Strict I's and O's, daily weights As outpatient Coreg, Imdur, Lasix, lisinopril -on hold (6) Insulin dependent diabetes mellitus: Controlled, last A1c 6.1 on 02/27/2020 Lantus/NovoLog per protocol Obtain A1c in a.m. [facility] BSG at 00:00 & 04:00 (7) Pressure ulcer: Patient with multiple areas of pressure ulceration, all with clean base recent wound culture / grew pseudomonas She is following with Corinna Amaya and wound care Per note wounds to be dressed with silver sorb and gentamicin ointment mixed one-to-one along with OPTi foam every other day Consult wound care nurse (8) Hypertension: BP elevated, likely in setting of not taking medications currently 170/76 will treat with IV prn hydralazine Home meds include amlodipine, Coreg, Imdur, hydralazine, Terazosin, lisinopril (9) CKD (chronic kidney disease), stage III: Baseline creatinine 1.6 BUN/creatinine stable at 27 and 1.65 Monitor renal function, avoid nephrotoxic agents (10) Ambulatory dysfunction: pt will need pt/ot consult when appropriate (11) Mood disorder: on clonazepam, sertraline, Terazosin, topiramate as outpatient Currently on hold given n.p.o. status (12) DVT prophylaxis: Prolonged APTT for unknown reason, will repeat SCDs teds for now If APTT comes back normal we will start subcu heparin Dispo: PCU Full code -unable to assess secondary to mental status, spoke with sister, patient is her own POA PCP: Kobe Patient was seen and examined in collaboration with Dr. Iyer, please see addendum History of Present Illness Chief Complaint: Altered mental status/sedation prior to arrival. Primary Care Provider: Eric Bullock, DO This is a 75-year-old female who has significant past medical history of morbid obesity, insulin-dependent T2DM, diabetic polyneuropathy, nephropathy, CKD stage IV, CAD, chronic HFpEF, HTN, HLD, secondary hyperparathyroidism, bilateral lymphedema, mood disorder who presents ED secondary to ulcer mental status/sedation prior to arrival. History unobtainable/limited from patient secondary to sedation. She does answer some questions appropriately but falls back asleep. Per EMS report patient was found slumped in her chair and family was concerned that she was not responsive. Upon attempting to move her she was alert and answering questions appropriately. BSG at that time was in the upper 100s as it was may be concern for hypoglycemia. While EMS was at the house physical therapy arrived as well. Physical therapy felt that her mental status was changed from when they previously saw her. Per ED provider patient initially minimally responsive but hemodynamically stable. She was in no acute distress and actually hypertensive. She was alert to voice and there was no neurological deficit. During my evaluation patient was able to answer questions to voice although not always appropriate. She felt she was in the ER secondary to her legs being more swollen. She would repeat herself frequently. She states she lives with her sister. I attempted to contact sister who states that she was in her recliner where she usually sleeps. She feels that she did not sleep well last night and was very tired today. She was unable to awake patient and that is when she became concerned at approximately 3:00 and notified EMS. At baseline patient is mostly sedentary but able to ambulate and do ADLs with a walker. She is usually alert and oriented and able to hold a conversation. She manages her own medications. Allergies Allergy/AdvReac Type Severity Reaction Status Date / Time loratadine Allergy Intermediate MOUTH Verified 02/13/21 16:10 SWELLING diphenhydramine AdvReac Intermediate GMG-SHAKING Verified 02/13/21 16:10 [From Benadryl] & SWEATING metformin AdvReac Intermediate causes Verified 02/13/21 16:10 kidney problems Sulfa (Sulfonamide AdvReac Intermediate Unknown Verified 02/13/21 16:10 Antibiotics) sulfamethoxazole AdvReac Intermediate GMG-RENAL Verified 02/13/21 16:10 COMPLICATIONS trimethoprim AdvReac Intermediate GMG-RENAL Verified 02/13/21 16:10 COMPLICATIONS Crssisw-Osy-Eer Reductase AdvReac Mild Gastrointestinal Verified 02/13/21 16:10 Inhibitor Upset Home Medications Medication Instructions Recorded Confirmed Type Lantus Solostar U-100 Insulin 20 unit SUBCUT BID 02/14/19 02/13/21 History amlodipine 10 mg PO QAM 02/14/19 02/13/21 History carvedilol 12.5 mg PO AMPM 02/14/19 02/13/21 History fluticasone propionate 2 spray INTRANASAL QAM 02/14/19 02/13/21 History gabapentin 300 mg PO TID 02/14/19 02/13/21 History hydralazine 100 mg PO TID 02/14/19 02/13/21 History insulin lispro [Humalog KwikPen 10 unit SUBCUT TIDM 02/14/19 02/13/21 History Insulin] pantoprazole 40 mg PO QAM 02/14/19 02/13/21 History rosuvastatin 40 mg PO HS 02/14/19 02/13/21 History sertraline 50 mg PO QAM 02/14/19 02/13/21 History terazosin 1 mg PO HS 02/14/19 02/13/21 History topiramate 25 mg PO BID 02/14/19 02/13/21 History clonazepam 1 mg PO HS 03/02/19 02/13/21 History isosorbide mononitrate 120 mg PO QAM 04/23/19 02/13/21 History oxycodone-acetaminophen [Percocet] 1 tab PO TID PRN 04/23/19 02/13/21 History polyethylene glycol 3350 [Miralax] 17 g PO QAM 04/23/19 02/13/21 History baclofen 5 mg PO BID PRN 08/16/20 02/13/21 History diclofenac sodium 1 ea TOPICAL BID PRN 08/16/20 02/13/21 History famotidine 20 mg PO DAILY 08/16/20 02/13/21 History furosemide 40 mg PO QAM 08/16/20 02/13/21 History ondansetron HCl 8 mg PO TID PRN 08/16/20 02/13/21 History Lactinex 1 tab PO DAILY 10/27/20 02/13/21 History nystatin 1 applic TOPICAL TID PRN 10/27/20 02/13/21 History potassium chloride [Klor-Con M10] 10 meq PO DAILY 12/05/20 02/13/21 History lisinopril 10 mg PO QAM #30 tab 12/08/20 02/13/21 Rx aspirin [Aspir-81] 81 mg PO DAILY 02/13/21 02/13/21 History zinc oxide 1 applic TOPICAL DIRECTED PRN 02/13/21 02/13/21 History Past Med/Surg History Medical History Adjustment disorder CAD (coronary artery disease) CHF (congestive heart failure) CKD (chronic kidney disease), stage III Encephalopathy acute GERD (gastroesophageal reflux disease) HLD (hyperlipidemia) Hypertension Hyponatremia IBS (irritable bowel syndrome) Insulin dependent diabetes mellitus Morbid obesity Paroxysmal A-fib Surgical History H/O hernia repair H/O: H/O: hysterectomy S/P cholecystectomy Family History Brother Prostate cancer Father Diabetes Social History Smoking Status: Unknown if ever smoked Second Hand Exposure: No; Hx Alcohol Use: No Hx Substance Use: No Preferred Language: Kiswahili Communication Ability: Effective Visual Impairment: No Limitations Hand Tennis Ball Coverer Required: No Beliefs That Will Affect Care: None marital status: / Current Living Situation: Family Other Information That Helps Us Care for You: No Feels Safe at Home: Yes Safety Concerns: Feels Safe At This Time Assistive Devices: Glasses and Walker Review of Systems Review of Systems: Unobtainable due to cognitive status Physical Exam Physical Exam: Constitutional: Morbidly obese, chronically ill female, WD/WN, vitals as above, NAD, lying in bed, arouses to verbal and tactile stimulation but not always appropriate, knows her name and place, but repeats "Boardman Boardman," occasionally difficult getting patient to follow appropriate commands Head: Normocephalic, Atraumatic Eyes: PERRL, conjunctivae normal, anicteric sclerae ENMT: external ear and nose normal, oropharynx normal Neck: trachea midline, no thyromegaly normal visual inspection Respiratory: normal respiratory effort, lungs clear to auscultation, no wheeze, rales, rhonchi. Normal insp/exp effort, no accessory muscle use Cardiovascular: RRR, no murmur, bilateral significant lower extremity pitting edema along with lymphedema, bilateral venous stasis changes no active cellulitis, +2 pitting edema pedal vessels: no JVD or carotid bruit Chest: normal inspection of chest Abdomen: Obese abdomen, normal bowel sounds, soft, nontender, no hepatosplenomegaly Musculoskeletal: no cyanosis or clubbing, active range of motion to bilateral upper extremities, per nursing did resist lower extremities with Griffin but patient not willing to follow commands with lower extremity exercise unable to assess strength given cognition Skin: Left gluteal fold and sacral ulcer noted, clean base, stage II, warm and dry normal turgor Neurologic: PERRL, EOMI, accommodation nl, no face palsy, no dysarthria CN's II-XI intact bilaterally and moves all extremities Psychiatric: A+O to self and place, euthymic affect Lymphatic: no cervical or axillary lymphadenopathy : Griffin catheter in place draining yellow urine with heavy sediment Results & Data Results & Data ([facility]) Vital Signs (Past 12 Hours) Vital Signs Temp Pulse Resp BP Pulse Ox 02/13/21 17:31 91 H 24 186/80 H 97 02/13/21 17:20 94 H 15 98 02/13/21 17:00 90 191/71 H 97 02/13/21 16:30 91 H 186/115 H 98 02/13/21 16:20 87 216/87 H 98 02/13/21 16:17 89 224/77 H 98 02/13/21 16:15 96 H 99 02/13/21 16:00 83 217/99 H 97 02/13/21 15:45 87 98 02/13/21 15:30 91 H 98 02/13/21 15:26 90 99 02/13/21 15:22 37.4 C 93 H 21 186/85 H 99 Diagnostic Findings Chest X-Ray 02/13/21 15:22 SINGLE VIEW CHEST CLINICAL HISTORY: Sepsis. FINDINGS: An AP, portable, upright chest radiograph is compared to study dated 02/11/2021. The heart is enlarged noting atherosclerotic calcification of the thoracic aorta. The pulmonary vasculature is noncongested. Scarring/atelectasis is seen at the lung bases. No airspace consolidation or large pleural effusion is identified. No pneumothorax is seen. The skeletal structures are osteopenic. The bony thorax is grossly intact. Degenerative change is noted in the shoulders and thoracic spine. Cholecystectomy clips are seen in the right upper quadrant. IMPRESSION: Cardiomegaly with no acute cardiopulmonary abnormality. ACT 112: Negative or not required by law. Electronically signed by: Scott Tello M.D. 02/13/2021 4:38 PM Abdomen/Pelvis CT 02/13/21 15:24 CT SCAN OF THE ABDOMEN AND PELVIS WITHOUT IV CONTRAST CLINICAL HISTORY: Change in mental status. Low back pain. COMPARISON STUDY: Abdominal CT dated 02/14/2019. TECHNIQUE: CT scan of the abdomen and pelvis is performed from the lung bases to the proximal femora. Images are reviewed in the axial, sagittal, and coronal planes. IV contrast was not administered for this examination. Note that the examination was performed in significant suboptimal fashion without IV contrast. The examination is also significant compromise by motion artifact, as well as by streak artifact from the arms which could not be elevated above the abdomen. A dose lowering technique was utilized adhering to the principles of ALARA. CT DOSE: 1190.28 mGycm FINDINGS: Lung bases: The heart is normal in size and without pericardial effusion. The mitral annulus is densely calcified. The lung bases are clear. There is a tiny hiatal hernia. Liver: Evaluation of the liver is compromised by streak artifact. The unenhanced liver is normal in size, contour, and attenuation. There is no intrahepatic biliary ductal dilatation. Gallbladder: Surgically absent noting clips in the gallbladder fossa. Spleen: Normal in size and attenuation. Pancreas: The unenhanced pancreas is atrophic and grossly unremarkable. Adrenal glands: Unremarkable. Kidneys: The unenhanced kidneys are atrophic and without hydronephrosis. A small extrarenal pelvis is incidentally noted on the right. There are no renal calculi identified. There is no evidence of contour deforming renal mass lesion. Abdominal vasculature: The abdominal aorta is normal in course and caliber noting advanced atherosclerotic calcification. Bowel: There is no bowel obstruction. There are scattered colonic diverticula w ithout CT evidence of acute diverticulitis. The appendix is well-visualized and normal. Peritoneum: There is no intraperitoneal free air or abdominal ascites. Lymphadenopathy: None. Pelvic viscera: The bladder is decompressed and a Griffin catheter and cannot be evaluated. The uterus is surgically absent. No adnexal lesion is seen. Skeletal structures: The skeletal structures are osteopenic. There is advanced lumbosacral spondylosis. No lytic or blastic lesions are seen. IMPRESSION: 1. Significantly suboptimal examination without IV contrast. The examination is also compromised by streak and motion. 2. No acute infectious or inflammatory findings are identified in the abdomen or pelvis. 3. No bowel obstruction. 4. Additional findings as above. ACT 112: Negative or not required by law. Electronically signed by: Scott Tello M.D. 02/13/2021 5:[address] 02/13/21 15:24 CT head/brain wo con CLINICAL HISTORY: ams COMPARISON STUDY: December 05, 2020 TECHNIQUE: Axial CT of the brain is performed from the vertex to the skull base. IV contrast was not administered for this examination. A dose lowering technique was utilized adhering to the principles of ALARA. CT DOSE: 906.34 mGycm FINDINGS: No intra or extra-axial mass lesions are visualized. There is no CT evidence of acute cortical infarction. There is no evidence of midline shift. There is no acute hemorrhage. No acute depressed calvarial fractures are visualized. Evaluation is slightly limited due to beam hardening artifact. Multiple calcifications are seen within bilateral basal ganglia, unchanged since prior study. Minimal atrophic changes of brain parenchyma are seen and associated with slight ex vacuo dilatation of ventricles. There is no evidence of acute sinusitis IMPRESSION: No acute intracranial hemorrhage, no midline shift or space occupying lesions. Limited exam as detailed above. ACT 112: Negative or not required by law. The above report was generated using voice recognition software. It may contain grammatical, syntax or spelling errors. Electronically signed by: Rhoda Turner DO 02/13/2021 5:21 PM Medications Administered Medication List Sodium Chloride (Nss) 500 mls @ 125 mls/hr IV .Q4H CHINEDU Stop: 03/15/21 17:29 Last Admin: 02/13/21 17:51 Dose: 125 mls/hr Documented by: [id number] Discontinued Medications Sodium Chloride (Nss) 500 mls @ 999 mls/hr IV .Q31M ONE Stop: 02/13/21 15:57 Last Infusion: 02/13/21 17:25 Dose: 0 mls/hr Documented by: [id number] Admin: 02/13/21 16:25 Dose: 999 mls/hr Documented by: [id number] Piperacillin Sod/Tazobactam Sod (Zosyn) 4.5 gm in 120 mls @ 240 mls/hr IV NOW ONE Stop: 02/13/21 17:47 Last Admin: 02/13/21 17:51 Dose: 240 mls/hr Documented by: [id number] ECG Rate (beats per minute): 86 Rhythm: normal sinus COVID-19 Results Results COVID-19 Adm Lab Results: RBC 3.20 M/uL (4.2-5.4) L 02/13/21 WBC 11.04 K/uL (4.8-10.8) H 02/13/21 Hgb 9.6 g/dL (12.0-16.0) L 02/13/21 Hct 30.0 % (37-47) L 02/13/21 Plt Count 226 K/uL (130-400) 02/13/21 Neutrophils (%) (Auto) 62.8 % 02/13/21 Lymphocytes (%) (Auto) 29.0 % 02/13/21 Monocytes # (Auto) 0.67 K/uL (0.11-0.59) H 02/13/21 Eosinophils # (Auto) 0.18 K/uL (0-0.5) 02/13/21 Immature Granulocyte % (Auto) 0.3 % 02/13/21 Neutrophils # (Auto) 6.94 K/uL (1.4-6.5) H 02/13/21 Lymphocytes # (Auto) 3.20 K/uL (1.2-3.4) 02/13/21 Monocytes # (Auto) 0.67 K/uL (0.11-0.59) H 02/13/21 Eosinophils # (Auto) 0.18 K/uL (0-0.5) 02/13/21 Basophils # (Auto) 0.02 K/uL (0-0.2) 02/13/21 Immature Granulocyte # (Auto) 0.03 K/uL (0.00-0.02) H 02/13/21 Na 139 mmol/L (136-145) 02/13/21 K 4.5 mmol/L (3.5-5.1) 02/13/21 Cl 108 mmol/L (98-107) H 02/13/21 CO2 23 mmol/L (21-32) 02/13/21 Anion Gap 8.0 (3-11) 02/13/21 BUN 27 mg/dl (7-18) H 02/13/21 Creatinine 1.65 mg/dl (0.6-1.2) H 02/13/21 BUN/Creatinine Ratio 16.1 (10-20) 02/13/21 Glucose Level 184 mg/dl (70-99) H 02/13/21 Ca 9.0 mg/dl (8.5-10.1) 02/13/21 Phosphorus Level 3.7 mg/dl (2.5-4.9) 02/13/21 Total Bilirubin 0.3 mg/dl (0.2-1) 02/13/21 Direct Bilirubin 0.2 mg/dl (0-0.2) 02/13/21 AST/SGOT 15 U/L (15-37) 02/13/21 ALT/SGPT 17 U/L (12-78) 02/13/21 Alkaline Phosphatase 71 U/L (45-117) 02/13/21 Total Protein 7.2 gm/dl (6.4-8.2) 02/13/21 Albumin 3.0 gm/dl (3.4-5.0) L 02/13/21 Globulin 4.2 gm/dl (2.5-4.0) H 02/13/21 Albumin/Globulin Ratio 0.7 (0.9-2) L 02/13/21 Total CK 60 U/L (26-192) 02/13/21 Troponin I < 0.015 ng/ml (0-0.045) 02/13/21 NH-Nyb-T-Type Natriuretic Pep 2037 pg/ml (0-900) H 02/13/21 Procalcitonin < 0.05 ng/ml (0-0.5) 02/13/21 PTT 23.1 Seconds (21.0-31.0) 02/13/21 INR 1.0 (0.9-1.1) 02/13/21 COVID-19 PCR NEGATIVE (Negative) 02/13/21 Chest X-Ray 02/13/21 Code Status & VTE Plan Code Status Full Code VTE Prophylaxis Plan VTE Prophylaxis will be ordered: Yes Supervising Physician Co-Signing Physician Notes I have seen and examined the patient and have discussed the case with the provider above. I agree with the assessment and plan as stated. 75 yo F found to be more somnolent by family, with workup revealing UTI. Urine butalbital positive but uncertain source for this...possible false positive? ROS is unrevealing as she is very somnolent. Agree with physical exam as above. No evidence of acidosis or CO2 retention at this point. No other clear cause of encephalopathy and weakness outside of this infection. Cont empiric antibiotics pending culture results and clinical improvement. DO Jaylon (1) Pressure ulcer Pressure injury location: unspecified location Pressure injury stage: stage 1 Qualified Code(s): L89.91 - Pressure ulcer of unspecified site, stage 1 (2) Hypertension Hypertension type: essential hypertension Qualified Code(s): I10 - Essential (primary) hypertension
[2021-02-13] MEDS ORDERED: CARBOHYDRATES FOR HYPOGLYCEMIA PO PRN (19:42)
[2021-02-13] MEDS ORDERED: POLYETHYLENE (MIRALAX) 17 GM PACK PO PRN (19:42)
[2021-02-13] MEDS ORDERED: GLUCOSE 40% GEL 15 GM TUBE PO PRN (19:42)
[2021-02-13] MEDS ORDERED: GLUCOSE 10 TABS/TUBE PO PRN (19:42)
[2021-02-13] MEDS ORDERED: FUROSEMIDE 40 MG/4 ML VIAL IV SCH (19:42)
[2021-02-13] MEDS ORDERED: ONDANSETRON INJ 2 MG/ML 2 ML VIAL IV PRN (19:42)
[2021-02-13] MEDS ORDERED: DEXTROSE 50% 50 ML SYRINGE IV PRN (19:42)
[2021-02-13] MEDS ORDERED: MAGNESIUM HYDROXIDE SUSP 30 ML UDC PO PRN (19:42)
[2021-02-13] MEDS ORDERED: GLUCAGON FOR INJ 1 MG VIAL SQ PRN (19:42)
[2021-02-13] MEDS: FUROSEMIDE 40 MG in SYRINGE 0 ML IV SCH (20:40)
[2021-02-13 20:42] LABS: Partial Thromboplastin Ratio 0.9; Partial Thromboplastin Time 23.1 Seconds (21.0-31.0)
[2021-02-13] MEDS: INSULIN ASPART 100 UNITS/ML 3 ML PEN SC SCH (20:42)
[2021-02-13] MEDS: INSULIN GLARGINE SOLOSTAR 100 UNITS/ML 3 ML PEN SC SCH (20:43)
[2021-02-13] MEDS: hydrALAZINE HCL 20 MG/ML VIAL IV PRN (20:58)
[2021-02-13] MEDS: PIPERACILLIN/TAZOBACTAM 3.375 GM in DEXTROSE 5% 100 ML IV SCH (22:36)
[2021-02-13 23:44] LABS: Amphetamines+Metham, Urine Neg (Neg); Barbiturates, Urine Pos (Neg); Benzodiazepine, Urine Neg (Neg); Cocaine, Urine Neg (Neg); MDMA (Ecstacy), Urine Neg (Neg); Methadone, Urine Neg (Neg); Opiate, Urine Neg (Neg); Phencyclidine, Urine Neg (Neg)
[2021-02-14] MEDS: hydrALAZINE HCL 20 MG/ML VIAL IV PRN (03:36)
[2021-02-14] MEDS: PIPERACILLIN/TAZOBACTAM 3.375 GM in DEXTROSE 5% 100 ML IV SCH (05:33)
[2021-02-14 06:43] LABS: Estimated Average Glucose 169 mg/dl; Hemoglobin A1C 7.5 % (4.5-5.6)
[2021-02-14] MEDS: INSULIN GLARGINE SOLOSTAR 100 UNITS/ML 3 ML PEN SC SCH ×2 (08:52→20:55)
[2021-02-14] MEDS: FUROSEMIDE 40 MG in SYRINGE 0 ML IV SCH ×2 (08:52→17:37)
[2021-02-14] MEDS: INSULIN ASPART 100 UNITS/ML 3 ML PEN SC SCH ×4 (08:53→20:55)
--- NOTE | 2021-02-14 13:03 | Hospitalist Progress Note ---
Date of Service February 14, 2021 Assessment & Plan (1) Acute metabolic encephalopathy: Appears to be resolving with treatment. Continue antibiotics. Will add diet at this time as she is more awake and oriented. Cont to hold clonazepam, topiramate, percocet, and baclofen until more alert and awake. Restarted her gabapentin. (2) UTI (urinary tract infection): Continue zosyn pending culture results and clinical improvement. (3) Acute on chronic heart failure with preserved ejection fraction (HFpEF): Volume status was difficult to determine especially on admission. She was started on Lasix 40 mg IV twice daily which is continued today. She does appear somewhat hypervolemic, but this is difficult to ascertain with her morbid obesity. Chest x-ray on arrival revealed noncongested pulmonary vasculature. BNP was elevated at 2000. Good diuresis overnight. Continue with Lasix for now. Patient appears improved overall and is not working to breathe. Continue strict I's and O's, daily weights and low-salt diet. (4) CAD (coronary artery disease): Chronic, no chest pain, current regimen on hold including Coreg, Imdur, lisinopril. Restart Coreg and Imdur now. Hold lisinopril and hydralazine in setting of relative hypotension. (5) Insulin dependent diabetes mellitus: Around goal A1C at 7.5 Lantus/NovoLog per protocol (6) Pressure ulcer: Patient with multiple areas of pressure ulceration, all with clean base recent wound culture 01/29 grew pseudomonas She is following with Corinna Amaya and wound care Per note wounds to be dressed with silver sorb and gentamicin ointment mixed one-to-one along with OPTi foam every other day Consult wound care nurse (7) Hypertension: BP initially elevated, likely secondary to noncompliance. Now she is more hypotensive. Cont holding lisinopril, hydralazine and terazosin. (8) CKD (chronic kidney disease), stage III: She is around her baseline kidney function Monitor renal function, avoid nephrotoxic agents (9) Ambulatory dysfunction: Consult PT and OT for evaluation and recs. (10) Mood disorder: on clonazepam, sertraline, Terazosin, topiramate as outpatient. Holding clonazepam, terazosin and topomax as above. Cont sertraline. (11) DVT prophylaxis: Heparin Full Code Dispo-cont tele monitoring, pending PT/OT consults and clinical improvement. Nallely Iyer DO [facility] Hospitalist Admission and Anticipated Discharge Date Admission Date: February 13, 2021 Subjective 75-year-old female admitted for acute metabolic encephalopathy secondary to UTI. She is more alert this morning and is oriented x3. She is still lethargic but is reporting having a dry mouth being thirsty and feeling cold. She added a little more to the history today and has no significant symptoms at this time. Review of Systems Review of Systems: All systems reviewed & are unremarkable except as noted in Subjective Physical Exam Physical Exam: CONSTITUTIONAL: mrbidly obese, vitals as above, generally well-appearing, somnolent EYES: normal conjunctivae, no scleral icterus ENT: external ear and nose normal, MMM RESPIRATORY: clear to auscultation bilaterally, no crackles, rales or wheezes, normal respiratory effort CARDIOVASCULAR: regular rate and rhythm, S1 and 2 heard without murmurs, gallops or rubs, no peripheral edema GASTROINTESTINAL: soft, nontender, protuberant but not distended. MUSCULOSKELETAL: generalized weakness. SKIN: warm and dry NEUROLOGIC: CN 2-12 grossly intact, somnolent but arousable, normal speech, no tremor PSYCHIATRIC: alert cooperative and oriented to person, place and time. Results & Data Results & Data ([facility]) Vital Signs (Past 12 Hours) Vital Signs Temp Pulse Pulse Resp BP Pulse Ox 02/14/21 12:36 36.8 C 81 20 180/83 H 98 02/14/21 08:00 70 16 97 02/14/21 07:22 36.7 C 72 15 92/56 L 96 02/14/21 04:08 181/80 H 02/14/21 04:00 18 02/14/21 03:30 18 02/14/21 03:25 36.0 C L 69 17 184/98 H 98 02/14/21 03:00 18 97 02/14/21 02:30 18 97 02/14/21 02:00 18 02/14/21 01:30 18 Medications Administered Current Inpatient Medications Acetaminophen (Acetaminophen 325 Mg Tab) 650 mg PO Q4H PRN PRN Reason: Pain or Fever Stop: 03/15/21 19:41 Last Admin: 02/14/21 19:29 Dose: 650 mg Documented by: Al Hydrox/Mg Hydrox/Simethicone (Aluminum/Magnesium Susp 30 Ml Udc) 15 ml PO Q4H PRN PRN Reason: Dyspepsia Stop: 03/15/21 19:41 Dextrose (Dextrose 50% 50 Ml Syringe) 25 - 50 ml IV UD PRN; Protocol PRN Reason: Hypoglycemia Protocol Stop: 03/15/21 19:41 Glucagon (Glucagon For Inj 1 Mg Vial) 1 mg SQ UD PRN; Protocol PRN Reason: Hypoglycemia Protocol Stop: 03/15/21 19:41 Glucose (Glucose 10 Tabs/Tube) 4 - 8 tabs PO UD PRN; Protocol PRN Reason: Hypoglycemia Protocol Stop: 03/15/21 19:41 Glucose (Glucose 40% Gel 15 Gm Tube) 15 - 30 gm PO UD PRN; Protocol PRN Reason: Hypoglycemia Protocol Stop: 03/15/21 19:41 Furosemide 40 mg/ Syringe 4 mls @ 4 mls/min IV [id number] [facility] Stop: 03/15/21 19:59 Last Admin: 02/14/21 17:37 Dose: 4 mls/min Documented by: Piperacillin Sod/Tazobactam (Sod 4.5 gm/ Dextrose) 120 mls @ 30 mls/hr IV Q8 [facility]; Protocol Stop: 02/21/21 13:59 Last Infusion: 02/14/21 17:30 Dose: Infused Documented by: Insulin Aspart (Insulin Aspart 100 Units/Ml 3 Ml Pen) 0 units SC ACHS [facility] Stop: 03/15/21 20:59 Last Admin: 02/14/21 17:36 Dose: 3 units Documented by: Insulin Glargine (Insulin Glargine Solostar 100 Units/Ml 3 Ml Pen) 0 units SC BID [facility]; Protocol Stop: 03/15/21 20:59 Last Admin: 02/14/21 08:52 Dose: 8 units Documented by: Magnesium Hydroxide (Magnesium Hydroxide Susp 30 Ml Udc) 30 ml PO Q12H PRN PRN Reason: Constipation Stop: 03/15/21 19:41 Miscellaneous (Carbohydrates For Hypoglycemia ) 15 - 30 gm PO UD PRN PRN Reason: Hypoglycemia Protocol Stop: 03/15/21 19:41 Miscellaneous Information (Piperacill/Tazobac Consult Active) 1 ea N/A UD PRN PRN Reason: Consult Stop: 03/15/21 19:41 Ondansetron HCl (Ondansetron Inj 2 Mg/Ml 2 Ml Vial) 4 mg IV Q6H PRN PRN Reason: Nausea Stop: 03/15/21 19:41 Polyethylene Glycol (Polyethylene (Miralax) 17 Gm Pack) 17 gm PO DAILY PRN PRN Reason: Constipation Stop: 03/15/21 19:41 (1) Pressure ulcer Pressure injury location: unspecified location Pressure injury stage: stage 1 Qualified Code(s): L89.91 - Pressure ulcer of unspecified site, stage 1 (2) Hypertension Hypertension type: essential hypertension Qualified Code(s): I10 - Essential (primary) hypertension
[2021-02-14] MEDS: PIPERACILLIN/TAZOBACTAM 4.5 GM in DEXTROSE 5% 100 ML IV SCH ×2 (13:09→23:13)
[2021-02-14] MEDS: ACETAMINOPHEN 325 MG TAB PO PRN (19:29)
[2021-02-14] MEDS: HEPARIN SOD 5,000 UNIT/0.5 ML VIAL SQ SCH (21:10)
[2021-02-14] MEDS: ROSUVASTATIN CALCIUM 20 MG TAB PO SCH (21:10)
[2021-02-14] MEDS: GABAPENTIN 300 MG CAP PO SCH (21:10)
[2021-02-14] MEDS: carvediloL 12.5 MG TAB PO SCH (21:10)
[2021-02-15] MEDS: PIPERACILLIN/TAZOBACTAM 4.5 GM in DEXTROSE 5% 100 ML IV SCH (05:43)
[2021-02-15] MEDS: HEPARIN SOD 5,000 UNIT/0.5 ML VIAL SQ SCH ×3 (05:45→21:27)
[2021-02-15 06:03] LABS: Hematocrit (blood only) 29.4 % (37-47); Hemoglobin 9.8 g/dL (12.0-16.0); Mean Corpuscular Hemoglobin 29.8 pg (25-34); Mean Corpuscular Hgb Conc 33.3 g/dL (32-36); Mean Corpuscular Volume 89.4 fL (80-100); Mean Platelet Volume 8.9 fL (7.4-10.4); Platelet Count 191 K/uL (130-400); RDW Coefficient of Variation 14.2 % (11.5-14.5); RDW Standard Deviation 46.3 fL (36.4-46.3); Red Blood Count 3.29 M/uL (4.2-5.4); White Blood Count 9.35 K/uL (4.8-10.8)
[2021-02-15 06:36] LABS: BUN Creatinine Ratio 13.1 (10-20); Calcium 8.2 mg/dl (8.5-10.1); Creatinine Clr Calc Pharmacy 37.9 ml/min; Est GFR (African American) 36.7 ml/min; Est GFR (Non-African American) 31.7 ml/min; Magnesium 1.7 mg/dl (1.8-2.4)
[2021-02-15 06:41] LABS: Phosphorus 4.7 mg/dl (2.5-4.9)
[2021-02-15] MEDS: POTASSIUM CHLORIDE 10 MEQ TABCR PO SCH (08:11)
[2021-02-15] MEDS: amLODIPine BESYLATE 5 MG TAB PO SCH (08:11)
[2021-02-15] MEDS: ACETAMINOPHEN 325 MG TAB PO PRN (08:11)
[2021-02-15] MEDS: ASPIRIN 81 MG ECTAB PO SCH (08:11)
[2021-02-15] MEDS: ISOSORBIDE MONO EXTENDED REL 60 MG TABCR PO SCH (08:12)
[2021-02-15] MEDS: GABAPENTIN 300 MG CAP PO SCH ×3 (08:12→20:19)
[2021-02-15] MEDS: SERTRALINE HCL 50 MG TABLET PO SCH (08:12)
[2021-02-15] MEDS: FUROSEMIDE 40 MG TAB PO SCH (08:12)
[2021-02-15] MEDS: carvediloL 12.5 MG TAB PO SCH (08:12)
[2021-02-15] MEDS: PANTOprazole 40 MG TAB PO SCH (08:13)
[2021-02-15] MEDS: INSULIN GLARGINE SOLOSTAR 100 UNITS/ML 3 ML PEN SC SCH ×2 (08:17→21:28)
[2021-02-15] MEDS: INSULIN ASPART 100 UNITS/ML 3 ML PEN SC SCH ×4 (08:18→21:29)
[2021-02-15] MEDS: MAGNESIUM SULFATE / D5W 1 GM/100 ML BAG IV SCH ×2 (09:30→11:46)
[2021-02-15] MEDS ORDERED: FAMOTIDINE 20 MG TAB PO PRN (10:14)
--- NOTE | 2021-02-15 10:20 | Hospitalist Progress Note ---
Date of Service February 15, 2021 Assessment & Plan (1) Acute metabolic encephalopathy: Resolved with improved/resolved somnolence. Continue antibiotics with Zosyn switched to ciprofloxacin. Patient also states that she had not slept for 2 days prior to arrival and was very sleepy as a result. She feels she had not slept because of significant pain in her buttock wounds. These are paining her now. Treatment plan per below (2) UTI (urinary tract infection): Urine culture revealed Enterobacter cloacae. Transition Zosyn to ciprofloxacin at this time. (3) Acute on chronic heart failure with preserved ejection fraction (HFpEF): Volume status was difficult to determine especially on admission. Chest x-ray on arrival revealed noncongested pulmonary vasculature. BNP was elevated at 2000. Good diuresis since admission. She appears euvlemic/compensated at this time. IV Lasix changed back to her daily oral Lasix per home regimen. Cont low salt diet, daily weights. (4) Stage III pressure ulcer: POA, Patient with multiple areas of pressure ulceration, all with clean base-significant pain as a result. recent wound culture 01/29 grew pseudomonas She is following with Corinna Amaya and wound care Cont daily care per wound nurse instructions. Turn q2 and keep pressure off these areas. Cont outpatient wound care follow-up. (5) CAD (coronary artery disease): Chronic, no chest pain, Cont medical management per home regimen. Some meds were temporarily put on hold because of hypotension, but these are now resumed. (6) Insulin dependent diabetes mellitus: Around goal A1C at 7.5 Lantus/NovoLog per protocol-currently at goal inpatient glucose. (7) Hypertension: BP initially elevated, likely secondary to noncompliance. Restarted all home meds today, held yesterday due to hypotension. (8) CKD (chronic kidney disease), stage III: She is around her baseline kidney function Monitor renal function, avoid nephrotoxic agents (9) Ambulatory dysfunction: Consult PT and OT for evaluation and recs. Pt declined evaluation today but was encouraged to work with them in order to get out of bed faster. (10) Mood disorder: on clonazepam, sertraline, Terazosin, topiramate as outpatient. Restarted clonazepam aat half dose today given new re-introduction of narcotics for pain control. Cont sertraline. Restarted Topiramate. (11) DVT prophylaxis: Heparin Full Code Dispo-transfer to the floor. Cont to mobilize OOB with assistance and work with PT/OT. Would like to pull roldan catheter jef, but when she is moving somewhat better. [facility] Admission and Anticipated Discharge Date Admission Date: February 13, 2021 Subjective 75-year-old female admitted for acute metabolic encephalopathy secondary to UTI. Encephalopathy has resolved and she is now reporting significant pain in her wound on her backside. She is tolerating p.o. She is afebrile. She does report some suprapubic tenderness and still has a Roldan catheter in place. She is not moving well and has declined PT services this morning. Sinus bradycardia noted overnight on telemetry. Review of Systems Review of Systems: All systems reviewed & are unremarkable except as noted in Subjective Physical Exam Physical Exam: CONSTITUTIONAL: morbidly obese, vitals as above, generally well-appearing, somnolent EYES: normal conjunctivae, no scleral icterus ENT: external ear and nose normal, MMM RESPIRATORY: clear to auscultation bilaterally, no crackles, rales or wheezes, normal respiratory effort CARDIOVASCULAR: regular rate and rhythm, S1 and 2 heard without murmurs, gallops or rubs, no peripheral edema GASTROINTESTINAL: soft, nontender, protuberant but not distended. MUSCULOSKELETAL: generalized weakness. SKIN: warm and dry, stage III gluteal pressure ulcer, and on buttocks not able to be visualized per patient's weakness and inability to maneuver. NEUROLOGIC: CN 2-12 grossly intact, somnolent but arousable, normal speech, no tremor PSYCHIATRIC: alert cooperative and oriented to person, place and time. Results & Data Results & Data ([facility]) Vital Signs (Past 12 Hours) Vital Signs Temp Pulse Pulse Resp BP BP Pulse Ox 02/15/21 08:00 54 L 02/15/21 07:41 36.9 C 73 19 169/74 H 97 02/15/21 03:41 36.8 C 64 20 124/73 95 02/14/21 23:59 61 02/14/21 23:14 37.4 C 62 16 111/68 96 Laboratory Results Short CBC 02/15/21 Range/Units 05:49 WBC 9.35 (4.8-10.8) K/uL Hgb 9.8 L (12.0-16.0) g/dL Hct 29.4 L (37-47) % Plt Count 191 (130-400) K/uL BMP 02/15/21 05:49 Sodium 140 Potassium 4.0 Chloride 104 Carbon Dioxide 28 BUN 21 H Creatinine 1.58 H Glucose 124 H Calcium 8.2 L Medications Administered Current Inpatient Medications Acetaminophen (Acetaminophen 500 Mg Tab) 1,000 mg PO Q8H [facility] Stop: 03/17/21 10:14 Al Hydrox/Mg Hydrox/Simethicone (Aluminum/Magnesium Susp 30 Ml Udc) 15 ml PO Q4H PRN PRN Reason: Dyspepsia Stop: 03/15/21 19:41 Amlodipine Besylate (Amlodipine Besylate 5 Mg Tab) 10 mg PO QAM [facility] Stop: 03/17/21 08:59 Last Admin: 02/15/21 08:11 Dose: 10 mg Documented by: Aspirin (Aspirin 81 Mg Ectab) 81 mg PO DAILY [facility] Stop: 03/17/21 08:59 Last Admin: 02/15/21 08:11 Dose: 81 mg Documented by: Carvedilol (Carvedilol 6.25 Mg Tab) 6.25 mg PO AMHS [facility] Stop: 03/17/21 20:59 Ciprofloxacin (Ciprofloxacin 500 Mg Tab) 500 mg PO Q12 [facility] Stop: 02/20/21 10:59 Clonazepam (Clonazepam 0.5 Mg Tab) 0.5 mg PO HS [facility] Stop: 03/17/21 20:59 Dextrose (Dextrose 50% 50 Ml Syringe) 25 - 50 ml IV UD PRN; Protocol PRN Reason: Hypoglycemia Protocol Stop: 03/15/21 19:41 Famotidine (Famotidine 20 Mg Tab) 20 mg PO DAILY PRN PRN Reason: heartburn Stop: 03/18/21 08:59 Furosemide (Furosemide 40 Mg Tab) 40 mg PO QAM [facility] Stop: 03/17/21 08:59 Last Admin: 02/15/21 08:12 Dose: 40 mg Documented by: Gabapentin (Gabapentin 300 Mg Cap) 300 mg PO TID [facility] Stop: 03/16/21 20:59 Last Admin: 02/15/21 08:12 Dose: 300 mg Documented by: Glucagon (Glucagon For Inj 1 Mg Vial) 1 mg SQ UD PRN; Protocol PRN Reason: Hypoglycemia Protocol Stop: 03/15/21 19:41 Glucose (Glucose 10 Tabs/Tube) 4 - 8 tabs PO UD PRN; Protocol PRN Reason: Hypoglycemia Protocol Stop: 03/15/21 19:41 Glucose (Glucose 40% Gel 15 Gm Tube) 15 - 30 gm PO UD PRN; Protocol PRN Reason: Hypoglycemia Protocol Stop: 03/15/21 19:41 Heparin Sodium (Porcine) (Heparin Sod 5,000 Unit/0.5 Ml Vial) 5,000 units SQ Q8 [facility] Stop: 03/16/21 21:59 Last Admin: 02/15/21 05:45 Dose: 5,000 units Documented by: Hydralazine HCl (Hydralazine Tab 50 Mg Tab) 50 mg PO TID [facility] Stop: 03/17/21 13:59 Furosemide 40 mg/ Syringe 4 mls @ 4 mls/min IV BID17 [facility] Stop: 03/15/21 19:59 Last Admin: 02/14/21 17:37 Dose: 4 mls/min Documented by: Magnesium Sulfate/Dextrose (Magnesium Sulfate / D5w) 1 gm in 100 mls @ 50 mls/hr IV Q2H [facility] Stop: 02/15/21 12:29 Last Admin: 02/15/21 09:30 Dose: 50 mls/hr Documented by: Insulin Aspart (Insulin Aspart 100 Units/Ml 3 Ml Pen) 0 units SC ACHS [facility] Stop: 03/15/21 20:59 Last Admin: 02/15/21 08:18 Dose: 1 units Documented by: Insulin Glargine (Insulin Glargine Solostar 100 Units/Ml 3 Ml Pen) 0 units SC BID [facility]; Protocol Stop: 03/15/21 20:59 Last Admin: 02/15/21 08:17 Dose: Not Given Documented by: Isosorbide Mononitrate (Isosorbide Monona Extended Rel 60 Mg Tabcr) 120 mg PO QAM [facility] Stop: 03/17/21 08:59 Last Admin: 02/15/21 08:12 Dose: 120 mg Documented by: Lisinopril (Lisinopril 10 Mg Tab) 10 mg PO QAM [facility] Stop: 03/17/21 10:59 Magnesium Hydroxide (Magnesium Hydroxide Susp 30 Ml Udc) 30 ml PO Q12H PRN PRN Reason: Constipation Stop: 03/15/21 19:41 Miscellaneous (Carbohydrates For Hypoglycemia ) 15 - 30 gm PO UD PRN PRN Reason: Hypoglycemia Protocol Stop: 03/15/21 19:41 Ondansetron HCl (Ondansetron Inj 2 Mg/Ml 2 Ml Vial) 4 mg IV Q6H PRN PRN Reason: Nausea Stop: 03/15/21 19:41 Pantoprazole Sodium (Pantoprazole 40 Mg Tab) 40 mg PO QAM [facility] Stop: 03/17/21 08:59 Last Admin: 02/15/21 08:13 Dose: 40 mg Documented by: Polyethylene Glycol (Polyethylene (Miralax) 17 Gm Pack) 17 gm PO DAILY PRN PRN Reason: Constipation Stop: 03/15/21 19:41 Polyethylene Glycol (Polyethylene (Miralax) 17 Gm Pack) 17 gm PO QAM [facility] Stop: 03/18/21 08:59 Potassium Chloride (Potassium Chloride 10 Meq Tabcr) 10 meq PO DAILY [facility] Stop: 03/17/21 08:59 Last Admin: 02/15/21 08:11 Dose: 10 meq Documented by: Rosuvastatin Calcium (Rosuvastatin Calcium 20 Mg Tab) 40 mg PO HS [facility] Stop: 03/16/21 20:59 Last Admin: 02/14/21 21:10 Dose: 40 mg Documented by: Sertraline HCl (Sertraline Hcl 50 Mg Tablet) 50 mg PO QAM [facility] Stop: 03/17/21 08:59 Last Admin: 02/15/21 08:12 Dose: 50 mg Documented by: Topiramate (Topiramate 25 Mg Tab) 25 mg PO BID [facility] Stop: 03/17/21 20:59 Tramadol HCl (Tramadol Hcl 50 Mg Tablet) 50 mg PO Q4H PRN PRN Reason: breakthrough pain Stop: 03/17/21 10:14 (1) Hypertension Hypertension type: essential hypertension Qualified Code(s): I10 - Essential (primary) hypertension
[2021-02-15] MEDS: CIPROFLOXACIN 500 MG TAB PO SCH ×2 (11:46→20:19)
[2021-02-15] MEDS: lisinopril 10 MG TAB PO SCH (11:46)
[2021-02-15] MEDS: traMADol HCL 50 MG TABLET PO PRN ×3 (12:17→20:18)
[2021-02-15] MEDS: ACETAMINOPHEN 500 MG TAB PO SCH ×2 (13:58→21:26)
[2021-02-15] MEDS: hydrALAZINE TAB 50 MG TAB PO SCH ×2 (13:59→20:19)
[2021-02-15] MEDS: TOPIRAMATE 25 MG TAB PO SCH (20:20)
[2021-02-15] MEDS: ROSUVASTATIN CALCIUM 20 MG TAB PO SCH (20:20)
[2021-02-15] MEDS: carvediloL 6.25 MG TAB PO SCH (20:21)
[2021-02-15] MEDS ORDERED: clonazePAM 0.5 MG TAB PO SCH (21:00)
[2021-02-15] MEDS: ALUMINUM/MAGNESIUM SUSP 30 ML UDC PO PRN (21:35)
[2021-02-16] MEDS: traMADol HCL 50 MG TABLET PO PRN ×2 (00:20→05:01)
[2021-02-16] MEDS: ALUMINUM/MAGNESIUM SUSP 30 ML UDC PO PRN (05:00)
[2021-02-16] MEDS: ACETAMINOPHEN 500 MG TAB PO SCH (05:01)
[2021-02-16] MEDS: HEPARIN SOD 5,000 UNIT/0.5 ML VIAL SQ SCH (05:02)
[2021-02-16 07:21] LABS: Creatinine Clr Calc Pharmacy 36.4 ml/min; Est GFR (African American) 34.8 ml/min; Est GFR (Non-African American) 30.1 ml/min
[2021-02-16] MEDS: lisinopril 10 MG TAB PO SCH (08:57)
[2021-02-16] MEDS: carvediloL 6.25 MG TAB PO SCH (08:57)
[2021-02-16] MEDS: FUROSEMIDE 40 MG TAB PO SCH (08:58)
[2021-02-16] MEDS: CIPROFLOXACIN 500 MG TAB PO SCH (08:59)
[2021-02-16] MEDS: hydrALAZINE TAB 50 MG TAB PO SCH (08:59)
[2021-02-16] MEDS: PANTOprazole 40 MG TAB PO SCH (09:00)
[2021-02-16] MEDS ORDERED: FAMOTIDINE 20 MG TAB PO SCH (09:00)
[2021-02-16] MEDS ORDERED: POLYETHYLENE (MIRALAX) 17 GM PACK PO SCH (09:00)
[2021-02-16] MEDS: amLODIPine BESYLATE 5 MG TAB PO SCH (09:00)
[2021-02-16] MEDS: SERTRALINE HCL 50 MG TABLET PO SCH (09:01)
[2021-02-16] MEDS: ASPIRIN 81 MG ECTAB PO SCH (09:01)
[2021-02-16] MEDS: POTASSIUM CHLORIDE 10 MEQ TABCR PO SCH (09:01)
[2021-02-16] MEDS: TOPIRAMATE 25 MG TAB PO SCH (09:01)
[2021-02-16] MEDS: ISOSORBIDE MONO EXTENDED REL 60 MG TABCR PO SCH (09:02)
[2021-02-16] MEDS: INSULIN GLARGINE SOLOSTAR 100 UNITS/ML 3 ML PEN SC SCH (09:03)
[2021-02-16] MEDS: INSULIN ASPART 100 UNITS/ML 3 ML PEN SC SCH ×2 (09:11→13:09)
[2021-02-16] MEDS: GABAPENTIN 300 MG CAP PO SCH (09:17)
--- NOTE | 2021-02-16 13:24 | Discharge Summary ---
Date of Service February 16, 2021 Admission HPI Per Admitting Provider This is a 75-year-old female who has significant past medical history of morbid obesity, insulin-dependent T2DM, diabetic polyneuropathy, nephropathy, CKD stage IV, CAD, chronic HFpEF, HTN, HLD, secondary hyperparathyroidism, bilateral lymphedema, mood disorder who presents ED secondary to ulcer mental status/sedation prior to arrival. History unobtainable/limited from patient secondary to sedation. She does answer some questions appropriately but falls back asleep. Per EMS report patient was found slumped in her chair and family was concerned that she was not responsive. Upon attempting to move her she was alert and answering questions appropriately. BSG at that time was in the upper 100s as it was may be concern for hypoglycemia. While EMS was at the house physical therapy arrived as well. Physical therapy felt that her mental status was changed from when they previously saw her. Per ED provider patient initially minimally responsive but hemodynamically stable. She was in no acute distress and actually hypertensive. She was alert to voice and there was no neurological deficit. During my evaluation patient was able to answer questions to voice although not always appropriate. She felt she was in the ER secondary to her legs being more swollen. She would repeat herself frequently. She states she lives with her sister. I attempted to contact sister who states that she was in her recliner where she usually sleeps. She feels that she did not sleep well last night and was very tired today. She was unable to awake patient and that is when she became concerned at approximately 3:00 and notified EMS. At baseline patient is mostly sedentary but able to ambulate and do ADLs with a walker. She is usually alert and oriented and able to hold a conversation. She manages her own medications. Principal Diagnosis Acute metabolic encephalopathy-resolved Urinary tract infection secondary to Enterobacter cloacae Acute on chronic heart failure with preserved ejection fraction Stage III pressure ulcers of the left buttock coccygeal region and right posterior thigh of present on arrival Discharge Exam CONSTITUTIONAL: morbidly obese, vitals as above, generally well-appearing EYES: normal conjunctivae, no scleral icterus ENT: external ear and nose normal, MMM RESPIRATORY: clear to auscultation bilaterally, no crackles, rales or wheezes, normal respiratory effort CARDIOVASCULAR: regular rate and rhythm, S1 and 2 heard without murmurs, gallops or rubs, no peripheral edema GASTROINTESTINAL: soft, nontender, protuberant but not distended. MUSCULOSKELETAL: generalized weakness. SKIN: warm and dry, stage III gluteal pressure ulcer, and on buttocks not able to be visualized per patient's weakness and inability to maneuver. NEUROLOGIC: CN 2-12 grossly intact, somnolent but arousable, normal speech, no tremor PSYCHIATRIC: alert cooperative and oriented to person, place and time. Discharge Data Allergies Allergy/AdvReac Type Severity Reaction Status Date / Time loratadine Allergy Intermediate MOUTH Verified 02/21/21 16:24 SWELLING diphenhydramine AdvReac Intermediate GMG-SHAKING Verified 02/21/21 16:24 [From Benadryl] & SWEATING metformin AdvReac Intermediate causes Verified 02/21/21 16:24 kidney problems Sulfa (Sulfonamide AdvReac Intermediate Unknown Verified 02/21/21 16:24 Antibiotics) sulfamethoxazole AdvReac Intermediate GMG-RENAL Verified 02/21/21 16:24 COMPLICATIONS trimethoprim AdvReac Intermediate GMG-RENAL Verified 02/21/21 16:24 COMPLICATIONS Fabbqau-Hqa-Ets Reductase AdvReac Mild Gastrointestinal Verified 02/21/21 16:24 Inhibitor Upset Consultations 02/13/21 17:24 ED Decision to Admit Stat Ordered Studies Laboratory Results WBC 9.35 K/uL (4.8-10.8) 02/15/21 05:49 RBC 3.29 M/uL (4.2-5.4) L 02/15/21 05:49 Hgb 9.8 g/dL (12.0-16.0) L 02/15/21 05:49 Hct 29.4 % (37-47) L 02/15/21 05:49 MCV 89.4 fL (80-100) 02/15/21 05:49 MCH 29.8 pg (25-34) 02/15/21 05:49 MCHC 33.3 g/dL (32-36) 02/15/21 05:49 RDW Std Deviation 46.3 fL (36.4-46.3) 02/15/21 05:49 RDW Coeff of Isabel 14.2 % (11.5-14.5) 02/15/21 05:49 Plt Count 191 K/uL (130-400) 02/15/21 05:49 MPV 8.9 fL (7.4-10.4) 02/15/21 05:49 Immature Gran % (Auto) 0.3 % 02/13/21 15:42 Neut % (Auto) 62.8 % 02/13/21 15:42 Lymph % (Auto) 29.0 % 02/13/21 15:42 [place] % (Auto) 6.1 % 02/13/21 15:42 Eos % (Auto) 1.6 % 02/13/21 15:42 Baso % (Auto) 0.2 % 02/13/21 15:42 Neut # (Auto) 6.94 K/uL (1.4-6.5) H 02/13/21 15:42 Lymph # (Auto) 3.20 K/uL (1.2-3.4) 02/13/21 15:42 [place] # (Auto) 0.67 K/uL (0.11-0.59) H 02/13/21 15:42 Eos # (Auto) 0.18 K/uL (0-0.5) 02/13/21 15:42 Baso # (Auto) 0.02 K/uL (0-0.2) 02/13/21 15:42 Immature Gran # (Auto) 0.03 K/uL (0.00-0.02) H 02/13/21 15:42 PT 10.1 Seconds (9.0-12.0) 02/13/21 15:42 INR 1.0 (0.9-1.1) 02/13/21 15:42 APTT 23.1 Seconds (21.0-31.0) 02/13/21 20:20 PTT Ratio 0.9 02/13/21 20:20 VBG pH 7.39 (7.36-7.41) 02/13/21 15:38 VBG pCO2 49 mmHg (38-50) 02/13/21 15:38 VBG pO2 49 mmHg 02/13/21 15:38 VBG HCO3 29 mmol/L 02/13/21 15:38 VBG O2 Saturation 85.0 % 02/13/21 15:38 VBG Base Excess 3.3 mEq/L 02/13/21 15:38 Barometric Pressure 732.7 mm/Hg 02/13/21 15:38 Sodium 140 mmol/L (136-145) 02/15/21 05:49 Potassium 4.0 mmol/L (3.5-5.1) 02/15/21 05:49 Chloride 104 mmol/L (98-107) 02/15/21 05:49 Carbon Dioxide 28 mmol/L (21-32) 02/15/21 05:49 Anion Gap 8.0 (3-11) 02/15/21 05:49 BUN 21 mg/dl (7-18) H 02/15/21 05:49 Creatinine 1.65 mg/dl (0.6-1.2) H 02/16/21 06:33 Est Cr Clr Drug Dosing 36.4 ml/min 02/16/21 06:33 Est GFR ( Amer) 34.8 ml/min 02/16/21 06:33 Est GFR (Non-Af Amer) 30.1 ml/min 02/16/21 06:33 BUN/Creatinine Ratio 13.1 (10-20) 02/15/21 05:49 Glucose 124 mg/dl (70-99) H 02/15/21 05:49 POC Glucose 156 mg/dl (70-99) H 02/16/21 12:31 Estimat Average Glucose 169 mg/dl 02/14/21 05:46 Hemoglobin A1c 7.5 % (4.5-5.6) H 02/14/21 05:46 Lactate 1.0 mmol/L (0.4-2.0) 02/13/21 15:37 Calcium 8.2 mg/dl (8.5-10.1) L 02/15/21 05:49 Phosphorus 4.7 mg/dl (2.5-4.9) D 02/15/21 05:49 Magnesium 1.7 mg/dl (1.8-2.4) L 02/15/21 05:49 Total Bilirubin 0.3 mg/dl (0.2-1) 02/13/21 15:42 Direct Bilirubin 0.2 mg/dl (0-0.2) 02/13/21 15:42 AST 15 U/L (15-37) 02/13/21 15:42 ALT 17 U/L (12-78) 02/13/21 15:42 Alkaline Phosphatase 71 U/L (45-117) 02/13/21 15:42 Ammonia 20.4 umol/L (11-32) 02/13/21 15:37 Total Creatine Kinase 60 U/L (26-192) 02/13/21 15:42 Troponin I < 0.015 ng/ml (0-0.045) 02/13/21 15:42 NT-Pro-B Natriuret Pep 2037 pg/ml (0-900) H 02/13/21 15:42 Total Protein 7.2 gm/dl (6.4-8.2) 02/13/21 15:42 Albumin 3.0 gm/dl (3.4-5.0) L 02/13/21 15:42 Globulin 4.2 gm/dl (2.5-4.0) H 02/13/21 15:42 Albumin/Globulin Ratio 0.7 (0.9-2) L 02/13/21 15:42 Lipase 81 U/L (73-393) 02/13/21 15:42 Procalcitonin < 0.05 ng/ml (0-0.5) 02/13/21 15:42 TSH 0.801 uIu/ml (0.300-4.500) 02/13/21 15:42 Urine Color Yellow 02/13/21 16:10 Urine Appearance Clear (Clear) 02/13/21 16:10 Urine pH 6.5 (4.5-7.5) 02/13/21 16:10 Ur Specific [place] 1.008 (1.000-1.030) 02/13/21 16:10 Urine Protein Negative (Negative) 02/13/21 16:10 Urine Glucose (UA) Negative (Negative) 02/13/21 16:10 Urine Ketones Negative (Negative) 02/13/21 16:10 Urine Blood Negative (Negative) 02/13/21 16:10 Urine Nitrite Positive (Negative) A 02/13/21 16:10 Urine Bilirubin Negative (Negative) 02/13/21 16:10 Urine Urobilinogen Negative (Negative) 02/13/21 16:10 Ur Leukocyte Esterase 2+ (Negative) H 02/13/21 16:10 Urine WBC (Auto) >30 /hpf (0-5) H 02/13/21 16:10 Urine RBC (Auto) 0-4 /hpf (0-4) 02/13/21 16:10 U Hyaline Cast (Auto) 1-5 /lpf (0-5) 02/13/21 16:10 U Epithel Cells (Auto) 20-30 /lpf (0-5) H 02/13/21 16:10 Urine Bacteria (Auto) 4+ (Negative) H 02/13/21 16:10 Urine Opiates Screen Neg (Neg) 02/13/21 21:10 Ur Methadone, Qual Neg (Neg) 02/13/21 21:10 Urine Barbiturates Pos (Neg) H 02/13/21 21:10 Ur Phencyclidine (PCP) Neg (Neg) 02/13/21 21:10 U Amphetamin/Meth Scrn Neg (Neg) 02/13/21 21:10 MDMA (Ecstasy) Screen Neg (Neg) 02/13/21 21:10 U Benzodiazepines Scrn Neg (Neg) 02/13/21 21:10 Ur Cocaine Metabolite Neg (Neg) 02/13/21 21:10 U Marijuana (THC) Screen Neg (Neg) 02/13/21 21:10 COVID-19 Eval Order Cov[facility]19 at [facility] 02/13/21 15:44 SARS-CoV-2 (PCR) NEGATIVE (Negative) 02/13/21 15:44 Impressions Chest X-Ray 02/13/21 15:22 SINGLE VIEW CHEST CLINICAL HISTORY: Sepsis. FINDINGS: An AP, portable, upright chest radiograph is compared to study dated 02/11/2021. The heart is enlarged noting atherosclerotic calcification of the thoracic aorta. The pulmonary vasculature is noncongested. Scarring/atelectasis is seen at the lung bases. No airspace consolidation or large pleural effusion is identified. No pneumothorax is seen. The skeletal structures are osteopenic. The bony thorax is grossly intact. Degenerative change is noted in the shoulders and thoracic spine. Cholecystectomy clips are seen in the right upper quadrant. IMPRESSION: Cardiomegaly with no acute cardiopulmonary abnormality. ACT 112: Negative or not required by law. Electronically signed by: Scott Tello M.D. 02/13/2021 4:38 PM Abdomen/Pelvis CT 02/13/21 15:24 CT SCAN OF THE ABDOMEN AND PELVIS WITHOUT IV CONTRAST CLINICAL HISTORY: Change in mental status. Low back pain. COMPARISON STUDY: Abdominal CT dated 02/14/2019. TECHNIQUE: CT scan of the abdomen and pelvis is performed from the lung bases to the proximal femora. Images are reviewed in the axial, sagittal, and coronal planes. IV contrast was not administered for this examination. Note that the examination was performed in significant suboptimal fashion without IV contrast. The examination is also significant compromise by motion artifact, as well as by streak artifact from the arms which could not be elevated above the abdomen. A dose lowering technique was utilized adhering to the principles of ALARA. CT DOSE: 1190.28 mGycm FINDINGS: Lung bases: The heart is normal in size and without pericardial effusion. The mitral annulus is densely calcified. The lung bases are clear. There is a tiny hiatal hernia. Liver: Evaluation of the liver is compromised by streak artifact. The unenhanced liver is normal in size, contour, and attenuation. There is no intrahepatic biliary ductal dilatation. Gallbladder: Surgically absent noting clips in the gallbladder fossa. Spleen: Normal in size and attenuation. Pancreas: The unenhanced pancreas is atrophic and grossly unremarkable. Adrenal glands: Unremarkable. Kidneys: The unenhanced kidneys are atrophic and without hydronephrosis. A small extrarenal pelvis is incidentally noted on the right. There are no renal calculi identified. There is no evidence of contour deforming renal mass lesion. Abdominal vasculature: The abdominal aorta is normal in course and caliber not ing advanced atherosclerotic calcification. Bowel: There is no bowel obstruction. There are scattered colonic diverticula without CT evidence of acute diverticulitis. The appendix is well-visualized and normal. Peritoneum: There is no intraperitoneal free air or abdominal ascites. Lymphadenopathy: None. Pelvic viscera: The bladder is decompressed and a Griffin catheter and cannot be evaluated. The uterus is surgically absent. No adnexal lesion is seen. Skeletal structures: The skeletal structures are osteopenic. There is advanced lumbosacral spondylosis. No lytic or blastic lesions are seen. IMPRESSION: 1. Significantly suboptimal examination without IV contrast. The examination is also compromised by streak and motion. 2. No acute infectious or inflammatory findings are identified in the abdomen or pelvis. 3. No bowel obstruction. 4. Additional findings as above. ACT 112: Negative or not required by law. Electronically signed by: Scott Tello M.D. 02/13/2021 5:[address] 02/13/21 15:24 CT head/brain wo con CLINICAL HISTORY: ams COMPARISON STUDY: December 05, 2020 TECHNIQUE: Axial CT of the brain is performed from the vertex to the skull base. IV contrast was not administered for this examination. A dose lowering technique was utilized adhering to the principles of ALARA. CT DOSE: 906.34 mGycm FINDINGS: No intra or extra-axial mass lesions are visualized. There is no CT evidence of acute cortical infarction. There is no evidence of midline shift. There is no acute hemorrhage. No acute depressed calvarial fractures are visualized. Evaluation is slightly limited due to beam hardening artifact. Multiple calcifications are seen within bilateral basal ganglia, unchanged since prior study. Minimal atrophic changes of brain parenchyma are seen and associated with slight ex vacuo dilatation of ventricles. There is no evidence of acute sinusitis IMPRESSION: No acute intracranial hemorrhage, no midline shift or space occupying lesions. Limited exam as detailed above. ACT 112: Negative or not required by law. The above report was generated using voice recognition software. It may contain grammatical, syntax or spelling errors. Electronically signed by: Rhoda Turner DO 02/13/2021 5:21 PM Hospital Course (1) Acute metabolic encephalopathy: Resolved with improved/resolved somnolence. This was thought secondary to acute urinary tract infection in setting of significant fatigue from wound pain that has been plaguing her for a few days. Continue antibiotics with Zosyn switched to ciprofloxacin. At time of discharge she was mentating back to baseline. (2) UTI (urinary tract infection): Urine culture revealed Enterobacter cloacae. Transition Zosyn to ciprofloxacin on discharge to complete the course as outpatient. (3) Acute on chronic heart failure with preserved ejection fraction (HFpEF): Volume status was difficult to determine especially on admission. Chest x-ray on arrival revealed noncongested pulmonary vasculature. BNP was elevated at 2000. Good diuresis since admission. She appeared euvolemic/compensated after a short period and, intravenous Lasix changed back to her daily oral Lasix per home regimen. Cont low salt diet, daily weights. (4) Stage III pressure ulcer: POA, Patient with multiple areas of pressure ulceration, all with clean base-significant pain as a result. recent wound culture 01/29 grew pseudomonas She is following with Corinna Amaya and wound care Cont daily care per wound nurse instructions. Turn q2 and keep pressure off the se areas. Cont outpatient wound care follow-up. (5) CAD (coronary artery disease): Chronic, no chest pain, Cont medical management per home regimen. Some meds were temporarily put on hold because of hypotension, but these are now resumed. (6) Insulin dependent diabetes mellitus: Around goal A1C at 7.5 Lantus/NovoLog per protocol-currently at goal inpatient glucose. (7) Hypertension: BP initially elevated, likely secondary to noncompliance. Restarted all home meds today, held yesterday due to hypotension. (8) CKD (chronic kidney disease), stage III: She is around her baseline kidney function Monitor renal function, avoid nephrotoxic agents (9) Ambulatory dysfunction: Consult PT and OT for evaluation and recs. Pt declined evaluation today but was encouraged to work with them in order to get out of bed faster. (10) Mood disorder: on clonazepam, sertraline, Terazosin, topiramate as outpatient. Some of these meds were initially held during her encephalopathic. But then later restarted as her mental status cleared. (11) DVT prophylaxis: Heparin Full Code Dispo-transferred back to home in stable condition with attenuation of home health service and close primary care follow-up. Nallely Iyer DO [facility] Hospitalist Total Time Total Time Spent Total Time Spent (In Minutes): 60 Total Time Includes: Examination of the Patient, Discharge Planning, Medication Reconciliation and Communication With Other Providers Discharge Plan Discharge Items Patient Disposition: Home - Home Health Services Reason For Visit: AMS, UTI Discharge Diagnosis: Acute metabolic encephalopathy-resolved Urinary tract infection secondary to Enterobacter cloacae Acute on chronic heart failure with preserved ejection fraction Stage III pressure ulcers of the left buttock coccygeal region and right posterior thigh of present on arrival Condition on Discharge: Good Activity: Resume your previous activity Non-emergency contact: Primary Care Provider Call non-emergency contact if: you have any medication questions, your symptoms worsen, your pain is not controlled, your pain is worsening, your pain is unusual for you, your pain is concerning for you, you have a fever, your wound has increased redness, your wound has increased drainage and your wound pain has increased Follow-up/Referrals: Eric Bullock DO [Primary Care Provider] - Diet: Carb Consistent or DM2 and Low Sodium (2gm) Addtl Attending Provider Instructions: Please take all medications as instructed on discharge instructions below. You were found to have a urinary tract infection and will need to complete the antibiotics given at discharge. It is recommended that you follow-up with your primary care provider within one week of discharge to home to ensure you are still doing well, and that your wounds are improving. Your heart rate was low, as a result, your carvedilol was decreased by 50%. Your new dose of 6.25 mg twice daily. At your PCP follow-up, a repeat blood pressure is also recommended. You are being sent home for home health for continued PT and OT and for wound care. It was a pleasure taking care of you! Please call if you have any questions or problems. You can reach a [facility] hospitalist on duty at [facility] 24 hours a day by calling [phone]. Take care of yourself. Nallely Iyer DO [facility] Pending Studies at Discharge: No Stand-Alone Forms: My [facility] Medications and DC Order Prescriptions: New ciprofloxacin HCl 500 mg Tablet 500 mg PO Q12 Qty: 6 RF: 0 carvedilol 6.25 mg Tablet 6.25 mg PO AMHS Qty: 60 RF: 0 Continued clonazepam 1 mg tablet 1 mg PO HS RF: 0 oxycodone-acetaminophen [Percocet] 5-325 mg tablet 1 tab PO TID PRN (Reason: Pain) RF: 0 isosorbide mononitrate 120 mg tablet extended release 24 hr 120 mg PO QAM RF: 0 polyethylene glycol 3350 [Miralax] 17 gram/dose Powder 17 g PO QAM RF: 0 topiramate 25 mg tablet 25 mg PO BID RF: 0 terazosin 1 mg capsule 1 mg PO HS RF: 0 amlodipine 10 mg tablet 10 mg PO QAM RF: 0 hydralazine 100 mg tablet 100 mg PO TID RF: 0 pantoprazole 40 mg tablet,delayed release (DR/EC) 40 mg PO QAM RF: 0 gabapentin 300 mg capsule 300 mg PO TID RF: 0 fluticasone propionate 50 mcg/actuation spray,suspension 2 spray intranasal QAM RF: 0 sertraline 50 mg tablet 50 mg PO QAM RF: 0 insulin lispro [Humalog KwikPen Insulin] 100 unit/mL insulin pen 10 unit subcut TIDM RF: 0 rosuvastatin 40 mg tablet 40 mg PO HS RF: 0 Lantus Solostar U-100 Insulin 100 unit/mL (3 mL) insulin pen 20 unit subcut BID RF: 0 baclofen 10 mg tablet 5 mg PO BID PRN (Reason: Pain) RF: 0 diclofenac sodium 1 % gel 1 ea TOPICAL BID PRN (Reason: Pain) RF: 0 famotidine 20 mg tablet 20 mg PO DAILY RF: 0 furosemide 40 mg tablet 40 mg PO QAM RF: 0 ondansetron HCl 8 mg tablet 8 mg PO TID PRN (Reason: Nausea) RF: 0 nystatin 100,000 unit/gram Powder 1 applic TOPICAL TID PRN (Reason: Skin Irritation) RF: 0 Lactinex 1 million cell Tablet,Chewable 1 tab PO DAILY RF: 0 potassium chloride [Klor-Con M10] 10 mEq tablet,ER particles/crystals 10 meq PO DAILY RF: 0 lisinopril 10 mg Tablet 10 mg PO QAM Qty: 30 RF: 0 zinc oxide 40 % Ointment 1 applic TOPICAL DIRECTED PRN (Reason: BUTTOCK EXCORIATION) RF: 0 aspirin 81 mg Tablet,Delayed Release (Dr/Ec) 81 mg PO DAILY RF: 0 Discontinued carvedilol 12.5 mg tablet 12.5 mg PO AMPM RF: 0 Discharge Orders: Discharge Order (Routine); Ordered 02/16/21 Ordered By: Nallely Sarabia/Other Patient Handouts: High Blood Sugar (Hyperglycemia), Hypoglycemia (Low Blood Sugar), Managing Type 2 Diabetes, Wound Care, What Are Pressure Sores?, Preventing Pressure Sores, A1C Admission Data Admit Date/Time: 02/13/21 18:07 Attending Provider: Nallely Iyer Admit Provider: Nallely Iyer Primary Care Provider: Eric Bullock Other Providers: [facility],Home Healthcare ; Nallely Iyer Other Interventions: Discharge Summary Assessment (RN) Last Done: 02/16/21 13:11 Home Health Attestation I certify that this patient is under my care and that I, or a physicians reproductive healthcare assistant working with me, had a face to-face encounter that meets the home health [id number] encounter requirements with this patient. The encounter with the patient was in whole, or in part, for the following medical condition, which is the primary reason for home health care (list medical condition): I certify that, based on my findings, the following services are medically necessary home health services: My clinical findings support the need for the above services because: PT Assessment for Endurance / Balance / Strength PT Eval for Safety and Mobility Skilled Nsg Assessment Skilled Nsg Assessment Surgical Incision / Wound Further, I certify that my clinical findings support that this patient is homebound (i.e. absences from home require considerable and taxing effort and are for medical reasons or christian services or infrequently or of short duration when for other reasons) because: Assistance of 1 Person for Ambulation/Activities Transportation Assistance/Unable to Leave Home Unassisted Certification for Home Health Services: Based on the above findings, I certify that this patient is confined to the home and needs intermittent correction care, physical therapy and/or speech therapy or continues to need occupational therapy. The patient is under my care, and I have initiated the establishment of the plan of care. This patient will be followed by a physician who will periodically review the plan of care.
[2021-02-19 08:51] LABS: Amobarbital, Urine Conf NEGATIVE ng/mL (<100); Butalbital, Urine 161 ng/mL (<100); Pentobarbital, Urine Conf NEGATIVE ng/mL (<100); Phenobarbital, Urine NEGATIVE ng/mL (<100); Secobarbital, Urine Conf NEGATIVE ng/mL (<100)
== END 2021-02-16 14:23 | disposition home health service (06) | DRG 70 ==
LOC: ED 15:10 → 2S 18:07 → 3N 02-15 14:44

== ENCOUNTER 2021-02-21 13:44 | Inpatient (IN) ==
[2021-02-21] MEDS ORDERED: fentaNYL citrate 100 MCG/2 ML VIAL IV STA (15:26)
--- NOTE | 2021-02-21 15:54 | Emergency Department Note ---
Impression & Plan Acute kidney injury superimposed on CKD, Acute UTI, Acute pain of right shoulder ED Provider Note Provider: John Ruiz MD DATE OF SERVICE: 02/21/2021 CHIEF COMPLAINT: Arm pain, back pain, leg pain, urinary incontinence HISTORY OF PRESENT ILLNESS: Patient is a 75-year-old female past medical history including CHF, diabetes, paroxysmal atrial fibrillation, IBS, obesity, recent hospitalization here this past week for somnolence and UTI. Poorly discharged on Cipro antibiotic called the patient's unsure if she has been taking or not. No fevers reported. No falls reported initially by her however later does admit she may has had some falls. States she developed pain in her right shoulder as well as pain in her knees and new pain in her back. Denies abdominal pain or other chest pain. Denies shortness of breath currently. Patient states she did not take any of her pain medicine or pain cream today. Has been prescribed Percocet as well as diclofenac topicals at home per the records with her. Patient states she continues to have some urinary incontinence issues. Patient denies new weakness in the extremities. REVIEW OF SYSTEMS: A total of 10 review of systems was obtained and negative except as stated above in the HPI. PAST MEDICAL HISTORY: As noted above MEDICATIONS: Reviewed home medication list with the patient SOCIAL HISTORY: Lives at home with family, non-smoker PHYSICAL EXAM: GENERAL: alert and oriented in no acute distress on stretcher Head: normocephalic and atraumatic EYES: No injection, discharge or icterus. NECK: Trachea midline. Supple. ENT: Mucous membranes pink and moist. LUNGS: Airway patent. No retractions. Breath sounds clear anteriorly diminished in the bases HEART: Regular rate and rhythm. No chest wall tenderness ABDOMEN: Soft and non-tender, without guarding or rebound. SKIN: Acyanotic, warm, dry, without rashes EXTREMITIES: Patient with 1+ bilateral lower extremity with some slight symmetric bilateral erythema but no weeping appreciated. No significant calf tenderness. No significant bony joint line tenderness, deformity of the bilateral knees. No significant tenderness of the right elbow or forearm with soft compartments in the upper and lower extremities. NEUROLOGICAL: No focal deficits. No aphasia. No facial droop or slurred speech. EK bpm normal sinus rhythm. No PVC or PAC. Some V4 to V6 artifact is noted. No clear ST segment elevation with a left axis noted. CONTINUOUS CARDIAC MONITORING: was ordered and showed a heart rate of 60s to 80s bpm in normal sinus rhythm Patient's laboratory studies and imaging reviewed. Differential includes Infection, dehydration, metabolic abnormality, hy po/hyperglycemia, electrolyte disturbance, anemia, hypoxia, cardiac sources, intracerebral event, toxicologic, neurologic, as well as other pathologies. IMPRESSION/MEDICAL DECISION MAKING: Patient complains with pain in the right shoulder as well as pain in her low back that is new as well as pain in the bilateral knees. Denies significant calf or foot tenderness. Denies trauma. Does not seem to have focal neurological deficits on exam. X-ray obtained of the right shoulder as well as the chest. Patient denies significant trauma to her legs and given exam I have a lower suspicion for acute fracture or dislocation here and do not feel we need x-rays. Patient given a small amount of fentanyl has not taken her home medicines for pain today. Given her back pain and multiple medical co morbidities and recent hospitalization a CT the abdomen pelvis was obtained. Basic labs were sent as well. Does not appear significantly fluid overloaded or requiring oxygen currently. Question how well the patient is thriving at home after the recent hospitalization. Some question of some possible falls at home with the patient does not relate significant trauma. Blood work significant shows a significant elevated creatinine and BUN today compared to previous. Patient on requestioning states she is not been eating and drinking the best. Patient's white blood cell count is somewhat elevated at 12.7 today. X-rays questions a little bit of additional pulmonary edema versus perhaps pneumonia findings but clinically does not fit well with pneumonia and again if anything I think she is a little bit hypovolemic. Not hypoxic here complaining of fever chills. CT abdomen pelvis no significant pathology or evidence of hydronephrosis or renal obstruction. Question if this is dehydration driving some of her worsened pain symptoms and renal dysfunction. Again feel given these findings she requires further evaluation here at the hospital and she was in agreement. The hospitalist was contacted. Give a small IV fluid bolus to see if this would assist in the urinalysis concerning for infection. Zosyn was ordered given prior sensitivities. DIAGNOSIS: Acute kidney injury, acute UTI, right shoulder pain DISPOSITION: Hospitalist will evaluate Patient was agreeable with this plan. Past Med/Surg History Medical History (Updated 02/21/21 @ 22:36 by John Ruiz M.D.) Acute UTI Adjustment disorder CAD (coronary artery disease) CHF (congestive heart failure) CKD (chronic kidney disease) CKD (chronic kidney disease), stage III Encephalopathy acute GERD (gastroesophageal reflux disease) HLD (hyperlipidemia) Hypertension Hyponatremia IBS (irritable bowel syndrome) Insulin dependent diabetes mellitus Mood disorder Morbid obesity Paroxysmal A-fib Pressure ulcer Surgical History H/O hernia repair H/O: H/O: hysterectomy S/P cholecystectomy Family History Brother Prostate cancer Father Diabetes Social History Smoking Status: Never smoker Second Hand Exposure: No; Hx Alcohol Use: No Hx Substance Use: No Preferred Language: Syriac Communication Ability: Effective Visual Impairment: No Limitations Cylinder Inspector Required: No Beliefs That Will Affect Care: None marital status: / Current Living Situation: Family Feels Safe at Home: Yes Assistive Devices: Walker Allergies Allergies Allergy/AdvReac Type Severity Reaction Status Date / Time loratadine Allergy Intermediate MOUTH Verified 02/21/21 16:24 SWELLING diphenhydramine AdvReac Intermediate GMG-SHAKING Verified 02/21/21 16:24 [From Benadryl] & SWEATING metformin AdvReac Intermediate causes Verified 02/21/21 16:24 kidney problems Sulfa (Sulfonamide AdvReac Intermediate Unknown Verified 02/21/21 16:24 Antibiotics) sulfamethoxazole AdvReac Intermediate GMG-RENAL Verified 02/21/21 16:24 COMPLICATIONS trimethoprim AdvReac Intermediate GMG-RENAL Verified 02/21/21 16:24 COMPLICATIONS [id number] Reductase AdvReac Mild Gastrointestinal Verified 02/21/21 16:24 Inhibitor Upset Home Meds Home Medications Medication Instructions Recorded Confirmed Lantus Solostar U-100 Insulin 20 unit SUBCUT BID 02/14/19 02/21/21 amlodipine 10 mg PO QAM 02/14/19 02/21/21 fluticasone propionate 2 spray INTRANASAL QAM 02/14/19 02/21/21 gabapentin 300 mg PO TID 02/14/19 02/21/21 hydralazine 100 mg PO TID 02/14/19 02/21/21 insulin lispro [Humalog KwikPen 10 unit SUBCUT TIDM 02/14/19 02/21/21 Insulin] pantoprazole 40 mg PO QAM 02/14/19 02/21/21 rosuvastatin 40 mg PO HS 02/14/19 02/21/21 sertraline 50 mg PO QAM 02/14/19 02/21/21 terazosin 1 mg PO HS 02/14/19 02/21/21 topiramate 25 mg PO BID 02/14/19 02/21/21 clonazepam 1 mg PO HS 03/02/19 02/21/21 isosorbide mononitrate 120 mg PO QAM 04/23/19 02/21/21 oxycodone-acetaminophen [Percocet] 1 tab PO TID PRN 04/23/19 02/21/21 polyethylene glycol 3350 [Miralax] 17 g PO QAM 04/23/19 02/21/21 baclofen 5 mg PO BID PRN 08/16/20 02/21/21 diclofenac sodium 1 ea TOPICAL BID PRN 08/16/20 02/21/21 famotidine 20 mg PO DAILY 08/16/20 02/21/21 furosemide 40 mg PO QAM 08/16/20 02/21/21 ondansetron HCl 8 mg PO TID PRN 08/16/20 02/21/21 Lactinex 1 tab PO DAILY 10/27/20 02/21/21 nystatin 1 applic TOPICAL TID PRN 10/27/20 02/21/21 potassium chloride [Klor-Con M10] 10 meq PO DAILY 12/05/20 02/21/21 aspirin 81 mg PO DAILY 02/13/21 02/21/21 zinc oxide 1 applic TOPICAL DIRECTED PRN 02/13/21 02/21/21 Previous Rx's Medication Instructions Recorded lisinopril 10 mg PO QAM #30 tab 12/08/20 carvedilol 6.25 mg PO AMHS #60 tab 02/16/21 ciprofloxacin HCl 500 mg PO Q12 #6 tab 02/16/21 Results & Data (ED) Vital Signs Vital Signs - 24 hr 02/21/21 13:55 02/21/21 15:14 02/21/21 15:45 Temperature 37.3 C Temperature Source Oral Pulse Rate 64 79 Pulse Rate [Right Finger] 72 Pulse Rate from SpO2 Sensor Pulse Rhythm [Right Finger] Regular Pulse Strength [Right Finger] Normal Respiratory Rate 20 18 20 Respiratory Effort / Characteristics Non-Labored Spontaneous Non-Labored Respiratory Depth Normal Normal Blood Pressure 119/43 L Blood Pressure [Right Arm] 140/51 L Blood Pressure Mean 68 Blood Pressure Mean [Right Arm] 80 Blood Pressure Position [Right Arm] Lying Pulse Oximetry 98 97 97 Oxygen Delivery Method Room Air Room Air Room Air Sepsis Recent Fever Within 48 Hours No Sepsis New/Unexplained Change in Mental Status No Sepsis Action Taken by Nursing No Action Required 02/21/21 16:00 02/21/21 16:11 02/21/21 16:31 Temperature Temperature Source Pulse Rate 66 67 Pulse Rate [Right Finger] Pulse Rate from SpO2 Sensor 66 67 73 Pulse Rhythm [Right Finger] Pulse Strength [Right Finger] Respiratory Rate 14 16 17 Respiratory Effort / Characteristics Respiratory Depth Blood Pressure 120/91 Blood Pressure [Right Arm] Blood Pressure Mean 100 Blood Pressure Mean [Right Arm] Blood Pressure Position [Right Arm] Pulse Oximetry 95 94 95 Oxygen Delivery Method Sepsis Recent Fever Within 48 Hours Sepsis New/Unexplained Change in Mental Status Sepsis Action Taken by Nursing 02/21/21 17:00 02/21/21 17:01 02/21/21 17:10 Temperature 37.0 C Temperature Source Oral Pulse Rate 72 72 Pulse Rate [Right Finger] Pulse Rate from SpO2 Sensor 72 72 Pulse Rhythm [Right Finger] Pulse Strength [Right Finger] Respiratory Rate 18 19 Respiratory Effort / Characteristics Respiratory Depth Blood Pressure 139/56 L Blood Pressure [Right Arm] Blood Pressure Mean 83 Blood Pressure Mean [Right Arm] Blood Pressure Position [Right Arm] Pulse Oximetry 95 93 Oxygen Delivery Method Sepsis Recent Fever Within 48 Hours Sepsis New/Unexplained Change in Mental Status Sepsis Action Taken by Nursing Laboratory Data Result diagrams: 02/21/21 16:12 02/21/21 16:12 Lab Results 02/21/21 02/21/21 02/21/21 Range/Units 16:00 16:00 16:12 WBC 12.75 H (4.8-10.8) K/uL RBC 2.94 L (4.2-5.4) M/uL Hgb 8.7 L (12.0-16.0) g/dL Hct 27.3 L (37-47) % MCV 92.9 (80-100) fL MCH 29.6 (25-34) pg MCHC 31.9 L (32-36) g/dL RDW Std Deviation 51.8 H (36.4-46.3) fL RDW Coeff of Isabel 15.1 H (11.5-14.5) % Plt Count 199 (130-400) K/uL MPV 9.8 (7.4-10.4) fL Immature Gran % (Auto) 0.5 % Neut % (Auto) 66.4 % Lymph % (Auto) 22.7 % [place] % (Auto) 9.0 % Eos % (Auto) 1.3 % Baso % (Auto) 0.1 % Neut # (Auto) 8.46 H (1.4-6.5) K/uL Lymph # (Auto) 2.90 (1.2-3.4) K/uL [place] # (Auto) 1.15 H (0.11-0.59) K/uL Eos # (Auto) 0.17 (0-0.5) K/uL Baso # (Auto) 0.01 (0-0.2) K/uL Immature Gran # (Auto) 0.06 H (0.00-0.02) K/uL Sodium (136-145) mmol/L Potassium (3.5-5.1) mmol/L Chloride (98-107) mmol/L Carbon Dioxide (21-32) mmol/L Anion Gap (3-11) BUN (7-18) mg/dl Creatinine (0.6-1.2) mg/dl Est Cr Clr Drug Dosing ml/min Est GFR ( Amer) ml/min Est GFR (Non-Af Amer) ml/min BUN/Creatinine Ratio (10-20) Glucose (70-99) mg/dl Calcium (8.5-10.1) mg/dl Magnesium (1.8-2.4) mg/dl Total Bilirubin (0.2-1) mg/dl AST (15-37) U/L ALT (12-78) U/L Alkaline Phosphatase (45-117) U/L Troponin I (0-0.045) ng/ml Total Protein (6.4-8.2) gm/dl Albumin (3.4-5.0) gm/dl Globulin (2.5-4.0) gm/dl Albumin/Globulin Ratio (0.9-2) TSH (0.300-4.500) uIu/ml Free T4 (0.8-1.6) ng/dl COVID-19 Eval Order Covid19 at [facility] SARS-CoV-2 (PCR) NEGATIVE (Negative) 02/21/21 Range/Units 16:12 WBC (4.8-10.8) K/uL RBC (4.2-5.4) M/uL Hgb (12.0-16.0) g/dL Hct (37-47) % MCV (80-100) fL MCH (25-34) pg MCHC (32-36) g/dL RDW Std Deviation (36.4-46.3) fL RDW Coeff of Isabel (11.5-14.5) % Plt Count (130-400) K/uL MPV (7.4-10.4) fL Immature Gran % (Auto) % Neut % (Auto) % Lymph % (Auto) % [place] % (Auto) % Eos % (Auto) % Baso % (Auto) % Neut # (Auto) (1.4-6.5) K/uL Lymph # (Auto) (1.2-3.4) K/uL [place] # (Auto) (0.11-0.59) K/uL Eos # (Auto) (0-0.5) K/uL Baso # (Auto) (0-0.2) K/uL Immature Gran # (Auto) (0.00-0.02) K/uL Sodium 133 L (136-145) mmol/L Potassium 4.1 (3.5-5.1) mmol/L Chloride 100 (98-107) mmol/L Carbon Dioxide 26 (21-32) mmol/L Anion Gap 7.0 (3-11) BUN 57 H (7-18) mg/dl Creatinine 6.00 H* (0.6-1.2) mg/dl Est Cr Clr Drug Dosing 9.1 ml/min Est GFR ( Amer) 7.3 ml/min Est GFR (Non-Af Amer) 6.3 ml/min BUN/Creatinine Ratio 9.5 L (10-20) Glucose 231 H (70-99) mg/dl Calcium 7.9 L (8.5-10.1) mg/dl Magnesium 3.9 H (1.8-2.4) mg/dl Total Bilirubin 0.5 (0.2-1) mg/dl AST 28 (15-37) U/L ALT 20 (12-78) U/L Alkaline Phosphatase 65 (45-117) U/L Troponin I 0.020 (0-0.045) ng/ml Total Protein 6.1 L (6.4-8.2) gm/dl Albumin 2.3 L (3.4-5.0) gm/dl Globulin 3.8 (2.5-4.0) gm/dl Albumin/Globulin Ratio 0.6 L (0.9-2) TSH 0.253 L (0.300-4.500) uIu/ml Free T4 1.05 (0.8-1.6) ng/dl COVID-19 Eval Order SARS-CoV-2 (PCR) (Negative) Administered Medications Carvedilol (Carvedilol 6.25 Mg Tab) 6.25 mg PO AMHS [facility] Stop: 03/23/21 20:59 Last Admin: 02/21/21 22:22 Dose: 6.25 mg Documented by: [id number] Clonazepam (Clonazepam 1 Mg Tab) 1 mg PO HS [facility] Stop: 03/23/21 20:59 Last Admin: 02/21/21 22:30 Dose: 1 mg Documented by: [id number] Heparin Sodium (Porcine) (Heparin Sod 5,000 Unit/0.5 Ml Vial) 5,000 units SQ Q8 [facility] Stop: 03/23/21 21:59 Last Admin: 02/21/21 22:22 Dose: 5,000 units Documented by: [id number] Hydralazine HCl (Hydralazine Tab 50 Mg Tab) 50 mg PO TID [facility] Stop: 03/23/21 20:59 Last Admin: 02/21/21 22:20 Dose: 50 mg Documented by: [id number] Sodium Chloride (Nss 1000ml) 1,000 mls @ 100 mls/hr IV .Q10H [facility] Stop: 03/23/21 20:55 Last Admin: 02/21/21 22:08 Dose: 100 mls/hr Documented by: [id number] Insulin Aspart (Insulin Aspart 100 Units/Ml 3 Ml Pen) 0 units SC ACHS CHINEDU; Protocol Stop: 03/23/21 21:44 Last Admin: 02/21/21 22:02 Dose: 5 units Documented by: [id number] Cosigned by: [id number] Terazosin HCl (Terazosin Hcl 1 Mg Cap) 1 mg PO HS [facility] Stop: 03/23/21 20:59 Last Admin: 02/21/21 22:20 Dose: 1 mg Documented by: [id number] Topiramate (Topiramate 25 Mg Tab) 12.5 mg PO BID [facility] Stop: 03/23/21 20:59 Last Admin: 02/21/21 22:21 Dose: 12.5 mg Documented by: [id number] Discontinued Medications Fentanyl Citrate (Fentanyl Citrate 100 Mcg/2 Ml Vial) 25 mcg IV NOW STA Stop: 02/21/21 15:27 Last Admin: 02/21/21 15:57 Dose: 25 mcg Documented by: [id number] Gabapentin (Gabapentin 300 Mg Cap) 300 mg PO TID [facility] Stop: 03/23/21 20:59 Last Admin: 02/21/21 22:11 Dose: Not Given Documented by: [id number] Sodium Chloride (Nss 1000ml) 500 mls @ 999 mls/hr IV .Q31M ONE Stop: 02/21/21 17:35 Last Infusion: 02/21/21 18:18 Dose: 0 mls/hr Documented by: [id number] Admin: 02/21/21 17:36 Dose: 999 mls/hr Documented by: [id number] Piperacillin Sod/Tazobactam Sod (Zosyn) 4.5 gm in 120 mls @ 240 mls/hr IV NOW ONE Stop: 02/21/21 19:32 Last Infusion: 02/21/21 19:55 Dose: 0 mls/hr Documented by: [id number] Admin: 02/21/21 19:14 Dose: 240 mls/hr Documented by: [id number] Insulin Glargine (Insulin Glargine Solostar 100 Units/Ml 3 Ml Pen) 20 units SC 2215 [facility] Stop: 02/21/21 22:16 Last Admin: 02/21/21 22:24 Dose: 20 units Documented by: [id number] Cosigned by: [id number] Imaging Data Radiologist's Impression: Abdomen/Pelvis CT 02/21/21 15:24 CT SCAN OF THE ABDOMEN AND PELVIS WITHOUT IV CONTRAST CLINICAL HISTORY: Low back pain. COMPARISON STUDY: Abdominal CT dated 02/13/2021. TECHNIQUE: CT scan of the abdomen and pelvis is performed from the lung bases to the proximal femora. Images are reviewed in the axial, sagittal, and coronal planes. IV contrast was not administered for this examination. Note that the examination was performed in significantly suboptimal fashion without oral and IV contrast. The examination is also compromised by motion artifact, as well as by streak artifact from the left arm which could not be elevated above the abdomen. A dose lowering technique was utilized adhering to the principles of ALARA. CT DOSE: 1386.25 mGy.cm FINDINGS: Lung bases: The heart is normal in size and without pericardial effusion. The mitral annulus is densely calcified. The lung bases are clear. There is a small hiatal hernia. Liver: Evaluation of the liver is compromised by streak artifact. The unenhanced liver is normal in size, contour, and attenuation. There is no intrahepatic biliary ductal dilatation. Gallbladder: Surgically absent noting clips in the gallbladder fossa. Spleen: Normal in size and attenuation. Pancreas: The unenhanced pancreas is atrophic and grossly unremarkable. Adrenal glands: Unremarkable. Kidneys: The unenhanced kidneys are atrophic and without hydronephrosis. A small extrarenal pelvis is incidentally noted on the right. There are no renal calculi identified. There is no evidence of contour deforming renal mass lesion. Abdominal vasculature: The abdominal aorta is normal in course and caliber noting advanced atherosclerotic calcification. Bowel: There is no bowel obstruction. There are scattered colonic diverticula without CT evidence of acute diverticulitis. There is underdistention of the left colon. The appendix is well-visualized and normal. Peritoneum: There is no intraperitoneal free air or abdominal ascites. Lymphadenopathy: None. Pelvic viscera: The bladder is partially decompressed and normal as visualized. The uterus is surgically absent. No adnexal lesion is seen. Skeletal structures: The skeletal structures are osteopenic. There is advanced lumbosacral spondylosis. No lytic or blastic lesions are seen. IMPRESSION: 1. Suboptimal examination without IV contrast. The examination is also degraded by streak and motion. 2. No acute infectious or inflammatory findings are identified in the abdomen or pelvis. No significant change from 02/13/2021. 3. No bowel obstruction. 4. Additional findings as above. ACT 112: Negative or not required by law. Electronically signed by: Scott Tello M.D. 02/21/2021 4:41 PM Chest X-Ray 02/21/21 15:24 XR chest 1V portable CLINICAL HISTORY: weakness COMPARISON STUDY: February 13, 2021 FINDINGS: No pneumothorax. No pleural effusion. Lung volumes are decreased with crowded lung markings and minimal diffuse prominence of pulmonary interstitium. Interval development of hazy opacity at the lower aspect of the right lung which might represent atelectasis or developing infiltrate. Mild interval enlargement of the cardiac silhouette which could be due to low inspiratory effort. Heavy calcifications of the mitral annulus are seen. Aorta is calcified. Interval prominence of pulmonary vascular congestion.. Osseous structures: Osteopenia, severe degenerative changes of the spine and bilateral shoulders IMPRESSION: 1. CHF pattern, slightly worsened since prior study. Possible pulmonary edema. 2. Interval development of opacity within right lower lung which might represent atelectasis or infiltrate. ACT 112: Negative or not required by law. The above report was generated using voice recognition software. It may contain grammatical, syntax or spelling errors. Electronically signed by: Rhoda Turner DO 02/21/2021 4:00 PM Shoulder X-Ray 02/21/21 15:24 RIGHT SHOULDER 3 VIEWS CLINICAL HISTORY: Right shoulder pain. FINDINGS: 3 views of the right shoulder are compared to study dated 02/14/2019. The skeletal structures are osteopenic. There is no radiographic evidence of f racture or dislocation. Mild degenerative change and chronic widening is again seen at the acromioclavicular joint. Advanced osteoarthritic change is noted at the glenohumeral joint with near-complete loss of the joint space, bony sclerosis, and subchondral cyst formation. Large spurs are present in the humeral head. The overlying soft tissues are normal as imaged. The visualized right lung parenchyma appears clear. IMPRESSION: Osteopenia and advanced arthritic change as above with no acute bony abnormality identified. Electronically signed by: Scott Tello M.D. 02/21/2021 4:00 PM Discharge Plan Visit Data Chief Complaint: Urinary Symptoms ED Provider: John Ruiz Discharge Problem: Acute kidney injury superimposed on CKD, Acute UTI, Acute pain of right shoulder Patient Disposition: Admitted As Inpatient Discharge Instructions Interventions: ED Discharge Assessment Last Done: 02/21/21 19:24
--- NOTE | 2021-02-21 16:02 | XRay Report ---
RIGHT SHOULDER 3 VIEWS CLINICAL HISTORY: Right shoulder pain. FINDINGS: 3 views of the right shoulder are compared to study dated 02/14/2019. The skeletal structure s are osteopenic. There is no radiographic evidence of fracture or dislocation. Mild degenerative terry nge and chronic widening is again seen at the acromioclavicular joint. Advanced osteoarthritic change is noted at the glenohumeral joint with near-complete loss of the joint space, bony sclerosis, and s ubchondral cyst formation. Large spurs are present in the humeral head. The overlying soft tissues ar e normal as imaged. The visualized right lung parenchyma appears clear. IMPRESSION: Osteopenia and advanced arthritic change as above with no acute bony abnormality identifi ed. Electronically signed by: Scott Tello M.D. 02/21/2021 4:00 PM
--- NOTE | 2021-02-21 16:02 | XRay Report ---
XR chest 1V portable CLINICAL HISTORY: weakness COMPARISON STUDY: February 13, 2021 FINDINGS: No pneumothorax. No pleural effusion. Lung volumes are decreased with crowded lung markings and minimal diffuse prominence of pulmonary int erstitium. Interval development of hazy opacity at the lower aspect of the right lung which might represent atel ectasis or developing infiltrate. Mild interval enlargement of the cardiac silhouette which could be due to low inspiratory effort. Hea vy calcifications of the mitral annulus are seen. Aorta is calcified. Interval prominence of pulmonary vascular congestion.. Osseous structures: Osteopenia, severe degenerative changes of the spine and bilateral shoulders IMPRESSION: 1. CHF pattern, slightly worsened since prior study. Possible pulmonary edema. 2. Interval development of opacity within right lower lung which might represent atelectasis or infi ltrate. ACT 112: Negative or not required by law. The above report was generated using voice recognition software. It may contain grammatical, syntax o r spelling errors. Electronically signed by: Rhoda Turner DO 02/21/2021 4:00 PM
[2021-02-21 16:24] LABS: Basophils # (auto) 0.01 K/uL (0-0.2); Basophils % (auto) 0.1 %; Eosinophils # (auto) 0.17 K/uL (0-0.5); Eosinophils % (auto) 1.3 %; Hematocrit (blood only) 27.3 % (37-47); Hemoglobin 8.7 g/dL (12.0-16.0); Immature Granulocytes # (auto) 0.06 K/uL (0.00-0.02); Immature Granulocytes % (auto) 0.5 %; Lymphocytes % (auto) 22.7 %; Mean Corpuscular Hemoglobin 29.6 pg (25-34); Mean Corpuscular Hgb Conc 31.9 g/dL (32-36); Mean Corpuscular Volume 92.9 fL (80-100); Mean Platelet Volume 9.8 fL (7.4-10.4); Monocytes # (auto) 1.15 K/uL (0.11-0.59); Neutrophils # (auto) 8.46 K/uL (1.4-6.5); Neutrophils % (auto) 66.4 %; Platelet Count 199 K/uL (130-400); RDW Coefficient of Variation 15.1 % (11.5-14.5); RDW Standard Deviation 51.8 fL (36.4-46.3); Red Blood Count 2.94 M/uL (4.2-5.4); White Blood Count 12.75 K/uL (4.8-10.8)
--- NOTE | 2021-02-21 16:38 | History & Physical Report ---
Date of Service February 21, 2021 Assessment & Plan (1) Acute UTI: Continued urinary symptoms - recently diagnosed with Enterobacter UTI, initially treated with IV Zosyn, then changed to Cipro - Resume IV Zosyn - Check repeat urine culture (2) Acute kidney injury superimposed on CKD: Creatinine at discharge on 02/16/21 was 1.65, today 6.00. Baseline does have baseline CKD - Will give one liter fluid bolus in ED then IVF at 100 ml/hr - HOLD Lasix - Check renal imaging - Consult nephrology for additional recommendations - Griffin cath - Monitor Is and Os (3) Fall: Per EMS and pt, multiple falls at home this week since being discharged due to ongoing weakness - Consult PT/OT - Consult case management to assist with discharge planning, potential need for placement - Fall precautions (4) Stage III pressure ulcer: Has been following with wound care outpatient - Will consult wound care nurse this admission (5) CHF (congestive heart failure): CXR concerning for potential pulmonary edema but lungs clear on exam. Holding diuretics in the setting of MAGGIE. Will continue to monitor closely but appears to be close to baseline at present. Not hypoxic in the ED. (6) GERD (gastroesophageal reflux disease): - Continue outpatient famotidine and PPI (7) Hypertension: Holding Lisinopril and Lasix due to MAGGIE. Continue other home meds but dosing renally adjusted when appropriate. May need to titrate regimen during admission (8) Insulin dependent diabetes mellitus: - Diabetic diet - Accuchecks ACHS - Resume outpatient Lantus as half dose initially - unclear how compliant pt has been with insulin regimen - Insulin sliding scale - Consult pharm for assistance with glycemic management Pt seen and reviewed with attending physician, Dr. Francisco. Plan of care discussed and as outlined above. DVT Prophylaxis: heparin subQ Code status: full code Dawson Ayala PA-C History of Present Illness Chief Complaint: Pain, weakness, falls Primary Care Provider: Eric Bullock DO This is a 75-year-old female who has significant past medical history of morbid obesity, insulin-dependent T2DM, diabetic polyneuropathy, nephropathy, CKD stage IV, CAD, chronic HFpEF, HTN, HLD, secondary hyperparathyroidism, bilateral lymphedema, mood disorder who presents ED today via EMS with increasing weakness, pain and frequent falls at home since recent d/c on 02/16/21. Pt was admitted 02/13-02/16/21 with acute metabolic encephalopathy, Enterobacter UTI, a cute on chronic CHF with preserved EF, and stage III pressure ulcers of the left buttock and right posterior thigh. UTI initially treated with Zosyn then pt was switched to oral Ciprofloxacin. CHF treated with IV lasix then changed back to daily oral Lasix regimen. Pt has followed with [facility] and wound care previously for the pressure ulcers. Since being discharged, she has had home he alth services, but per EMS, they have been called to her residence multiples times due to falls. Today, she was brought in via EMS for pain in her right shoulder, knees, and back as well as worsening weakness. Pt seems to have trouble recalling details from her time at home but does report that home health has been coming. However, she reports that her medications were misplaced (?) so she is unsure if she has been taking them consistently/correctly. She does report some difficulty getting around at home. She also complaints of pain in her buttock and some loose stools. Reports that she has not been eating or drinking as much as she probably should be. Denies fevers, chills. Allergies Allergy/AdvReac Type Severity Reaction Status Date / Time loratadine Allergy Intermediate MOUTH Verified 02/21/21 16:24 SWELLING diphenhydramine AdvReac Intermediate GMG-SHAKING Verified 02/21/21 16:24 [From Benadryl] & SWEATING metformin AdvReac Intermediate causes Verified 02/21/21 16:24 kidney problems Sulfa (Sulfonamide AdvReac Intermediate Unknown Verified 02/21/21 16:24 Antibiotics) sulfamethoxazole AdvReac Intermediate GMG-RENAL Verified 02/21/21 16:24 COMPLICATIONS trimethoprim AdvReac Intermediate GMG-RENAL Verified 02/21/21 16:24 COMPLICATIONS Gflkcvn-Pkk-Qpr Reductase AdvReac Mild Gastrointestinal Verified 02/21/21 16:24 Inhibitor Upset Home Medications Medication Instructions Recorded Confirmed Type Lantus Solostar U-100 Insulin 20 unit SUBCUT BID 02/14/19 02/21/21 History amlodipine 10 mg PO QAM 02/14/19 02/21/21 History fluticasone propionate 2 spray INTRANASAL QAM 02/14/19 02/21/21 History gabapentin 300 mg PO TID 02/14/19 02/21/21 History hydralazine 100 mg PO TID 02/14/19 02/21/21 History insulin lispro [Humalog KwikPen 10 unit SUBCUT TIDM 02/14/19 02/21/21 History Insulin] pantoprazole 40 mg PO QAM 02/14/19 02/21/21 History rosuvastatin 40 mg PO HS 02/14/19 02/21/21 History sertraline 50 mg PO QAM 02/14/19 02/21/21 History terazosin 1 mg PO HS 02/14/19 02/21/21 History topiramate 25 mg PO BID 02/14/19 02/21/21 History clonazepam 1 mg PO HS 03/02/19 02/21/21 History isosorbide mononitrate 120 mg PO QAM 04/23/19 02/21/21 History oxycodone-acetaminophen [Percocet] 1 tab PO TID PRN 04/23/19 02/21/21 History polyethylene glycol 3350 [Miralax] 17 g PO QAM 04/23/19 02/21/21 History baclofen 5 mg PO BID PRN 08/16/20 02/21/21 History diclofenac sodium 1 ea TOPICAL BID PRN 08/16/20 02/21/21 History famotidine 20 mg PO DAILY 08/16/20 02/21/21 History furosemide 40 mg PO QAM 08/16/20 02/21/21 History ondansetron HCl 8 mg PO TID PRN 08/16/20 02/21/21 History Lactinex 1 tab PO DAILY 10/27/20 02/21/21 History nystatin 1 applic TOPICAL TID PRN 10/27/20 02/21/21 History potassium chloride [Klor-Con M10] 10 meq PO DAILY 12/05/20 02/21/21 History lisinopril 10 mg PO QAM #30 tab 12/08/20 02/21/21 Rx aspirin 81 mg PO DAILY 02/13/21 02/21/21 History zinc oxide 1 applic TOPICAL DIRECTED PRN 02/13/21 02/21/21 History carvedilol 6.25 mg PO AMHS #60 tab 02/16/21 02/21/21 Rx ciprofloxacin HCl 500 mg PO Q12 #6 tab 02/16/21 02/21/21 Rx Past Med/Surg History Medical History (Updated 02/21/21 @ 18:10 by Jessica Ayala PA-C) Acute UTI Adjustment disorder CAD (coronary artery disease) CHF (congestive heart failure) CKD (chronic kidney disease) CKD (chronic kidney disease), stage III Encephalopathy acute GERD (gastroesophageal reflux disease) HLD (hyperlipidemia) Hypertension Hyponatremia IBS (irritable bowel syndrome) Insulin dependent diabetes mellitus Mood disorder Morbid obesity Paroxysmal A-fib Pressure ulcer Surgical History H/O hernia repair H/O: H/O: hysterectomy S/P cholecystectomy Family History Brother Prostate cancer Father Diabetes Social History Smoking Status: Never smoker Second Hand Exposure: No; Hx Alcohol Use: No Hx Substance Use: No Preferred Language: Khmer Communication Ability: Effective Visual Impairment: No Limitations Special Effects Specialist Required: No Beliefs That Will Affect Care: None marital status: / Current Living Situation: Family Feels Safe at Home: Yes Assistive Devices: Walker Review of Systems Review of Systems: All systems reviewed & are unremarkable except as noted in HPI & below Constitutional: + weakness and + anorexia; no fever and no chills Eyes: no diplopia Ear, Nose, Mouth, Throat: no nasal congestion, no sore throat and no dysphagia Respiratory: no cough and no dyspnea Cardiovascular: + edema; no chest pain, no palpitations and no syncope Gastrointestinal: + diarrhea/loose stools; no abdominal pain, no nausea and no vomiting Genitourinary: + dysuria and + urinary incontinence; no hematuria Musculoskeletal: + back pain, + joint pain and + muscle weakness Integumentary: + skin ulcer Neurologic: + unsteadiness, + falls and + generalized weakness; no dizziness and no headache(s) Physical Exam Constitutional: WD/WN, vitals as above no acute distress Eyes: + anicteric sclerae Neck: trachea midline Respiratory: no respiratory distress and no labored breathing Auscultation: lungs clear to auscultation bilaterally; no rales, no rhonchi and no wheezes Cardiovascular: Rate/Rhythm: regular rate and regular rhythm Gastrointestinal (Abdomen): Inspection/Auscultation: normal bowel sounds; abdomen not distended Percussion/Palpation: abdomen soft; abdomen nontender Musculoskeletal: Head/Neck/Chest: normocephalic, head atraumatic and neck supple Neurologic: moves all extremities Speech / Cognition: normal speech Psychiatric: A+Ox3, euthymic affect Results & Data Results & Data ([facility]) Vital Signs (Past 12 Hours) Vital Signs Temp Pulse Pulse Resp BP BP Pulse Ox 02/21/21 15:45 79 20 97 02/21/21 15:14 72 18 140/51 L 97 02/21/21 13:55 37.3 C 64 20 119/43 L 98 Laboratory Results Laboratory Results - last 24 hr 02/21/21 02/21/21 02/21/21 16:00 16:00 16:12 WBC 12.75 H RBC 2.94 L Hgb 8.7 L Hct 27.3 L MCV 92.9 MCH 29.6 MCHC 31.9 L RDW Std Deviation 51.8 H RDW Coeff of Isabel 15.1 H Plt Count 199 MPV 9.8 Immature Gran % (Auto) 0.5 Neut % (Auto) 66.4 Lymph % (Auto) 22.7 Posey % (Auto) 9.0 Eos % (Auto) 1.3 Baso % (Auto) 0.1 Neut # (Auto) 8.46 H Lymph # (Auto) 2.90 Posey # (Auto) 1.15 H Eos # (Auto) 0.17 Baso # (Auto) 0.01 Immature Gran # (Auto) 0.06 H Sodium Potassium Chloride Carbon Dioxide Anion Gap BUN Creatinine Est Cr Clr Drug Dosing Est GFR ( Amer) Est GFR (Non-Af Amer) BUN/Creatinine Ratio Glucose Calcium Magnesium Total Bilirubin AST ALT Alkaline Phosphatase Troponin I Total Protein Albumin Globulin Albumin/Globulin Ratio TSH Free T4 COVID-19 Eval Order Covid19 at [facility] SARS-CoV-2 (PCR) NEGATIVE 02/21/21 16:12 WBC RBC Hgb Hct MCV MCH MCHC RDW Std Deviation RDW Coeff of Isabel Plt Count MPV Immature Gran % (Auto) Neut % (Auto) Lymph % (Auto) Posey % (Auto) Eos % (Auto) Baso % (Auto) Neut # (Auto) Lymph # (Auto) Posey # (Auto) Eos # (Auto) Baso # (Auto) Immature Gran # (Auto) Sodium 133 L Potassium 4.1 Chloride 100 Carbon Dioxide 26 Anion Gap 7.0 BUN 57 H Creatinine 6.00 H* Est Cr Clr Drug Dosing 9.1 Est GFR ( Amer) 7.3 Est GFR (Non-Af Amer) 6.3 BUN/Creatinine Ratio 9.5 L Glucose 231 H Calcium 7.9 L Magnesium 3.9 H Total Bilirubin 0.5 AST 28 ALT 20 Alkaline Phosphatase 65 Troponin I 0.020 Total Protein 6.1 L Albumin 2.3 L Globulin 3.8 Albumin/Globulin Ratio 0.6 L TSH 0.253 L Free T4 1.05 COVID-19 Eval Order SARS-CoV-2 (PCR) Diagnostic Findings Right Shoulder X-ray 02/21/21 - IMPRESSION: Osteopenia and advanced arthritic change as above with no acute bony abnormality identified. Chest X-ray 02/21/21 - IMPRESSION: 1. CHF pattern, slightly worsened since prior study. Possible pulmonary edema. 2. Interval development of opacity within right lower lung which might represent atelectasis or infiltrate. CT Abd/Pel 02/21/21 - IMPRESSION: 1. Suboptimal examination without IV contrast. The examination is also degraded by streak and motion. 2. No acute infectious or inflammatory findings are identified in the abdomen or pelvis. No significant change from 02/13/2021. 3. No bowel obstruction. 4. Additional findings as above. Medications Administered Discontinued Medications Fentanyl Citrate (Fentanyl Citrate 100 Mcg/2 Ml Vial) 25 mcg IV NOW STA Stop: 02/21/21 15:27 Last Admin: 02/21/21 15:57 Dose: 25 mcg Documented by: [id number] Supervising Physician Co-Signing Physician Notes I saw this patient with the physician reference assistant, I participated in the history, physical, review of systems, and physical exam. I reviewed the medications with the patient and the physician reference assistant and helped reconcile the medications. I helped take a detailed family and social history as well. I formulated the assessment and plan personally with the physician reference assistant and went over it with the patient. ROS-No Headache, No Visual Changes, No Nausea, No Vomiting, No Fever, No Chills, No Neck Pain or Stiffness, No Chest Pain, No Palpitations, No SOB, No MUÑOZ, No Cough, No Sputum, No Wheezing, No Abdominal Pain, No Diarrhea, No Hematemesis, No Hemoptysis, No Unexpected Weight Loss, No Flank pain, No Melena, No Hematochezia, No Frequency, No Urgency, No Burning, No Hematuria, No Rashes, No Diaphoresis. Appetite is Normal, +weakness Physical Exam Gen-AAO x 3, NAD, Afebrile, obese Head-NCAT, EOMI, PERRLA, Anicteric Sclera, No Posterior Pharyngeal Erythema Neck-Supple, No JVD, No Thyromegaly, No Masses, No LAD, No Bruits Lungs-Clear to Auscultation Bilaterally, No Rales, No Rhonchi, No Wheezing, No Crepitus Chest-No S4, +S1, +S2, No S3, No Murmurs, No Rubs, No Gallops, No Ectopy Abdomen-Soft, Bowel Sounds Present, Non Tender, Non Distended, No Hepatomegaly, No Splenomegaly, No Palpable Masses, No Rebound, No Rigidity, No Guarding Musculoskeletal-Full Range of Motion Bilaterally, No CVAT Extremities-No Cyanosis, No Clubbing, Mild Edema Nuero-Cranial Nerves II-XII grossly intact, Motor WNL, DTRs WNL, Strength WNL, Non Focal Psych-Normal Mood (1) Fall Encounter type: initial encounter Qualified Code(s): W19.XXXA - Unspecified fall, initial encounter
--- NOTE | 2021-02-21 16:43 | CT Scan Report ---
CT SCAN OF THE ABDOMEN AND PELVIS WITHOUT IV CONTRAST CLINICAL HISTORY: Low back pain. COMPARISON STUDY: Abdominal CT dated 02/13/2021. TECHNIQUE: CT scan of the abdomen and pelvis is performed from the lung bases to the proximal femora. Images are reviewed in the axial, sagittal, and coronal planes. IV contrast was not administered for this examination. Note that the examination was performed in significantly suboptimal fashion withou t oral and IV contrast. The examination is also compromised by motion artifact, as well as by streak artifact from the left arm which could not be elevated above the abdomen. A dose lowering technique w as utilized adhering to the principles of ALARA. CT DOSE: 1386.25 mGy.cm FINDINGS: Lung bases: The heart is normal in size and without pericardial effusion. The mitral annulus is dense ly calcified. The lung bases are clear. There is a small hiatal hernia. Liver: Evaluation of the liver is compromised by streak artifact. The unenhanced liver is normal in s ize, contour, and attenuation. There is no intrahepatic biliary ductal dilatation. Gallbladder: Surgically absent noting clips in the gallbladder fossa. Spleen: Normal in size and attenuation. Pancreas: The unenhanced pancreas is atrophic and grossly unremarkable. Adrenal glands: Unremarkable. Kidneys: The unenhanced kidneys are atrophic and without hydronephrosis. A small extrarenal pelvis is incidentally noted on the right. There are no renal calculi identified. There is no evidence of cont our deforming renal mass lesion. Abdominal vasculature: The abdominal aorta is normal in course and caliber noting advanced atheroscle rotic calcification. Bowel: There is no bowel obstruction. There are scattered colonic diverticula without CT evidence of acute diverticulitis. There is underdistention of the left colon. The appendix is well-visualized an d normal. Peritoneum: There is no intraperitoneal free air or abdominal ascites. Lymphadenopathy: None. Pelvic viscera: The bladder is partially decompressed and normal as visualized. The uterus is surgica lly absent. No adnexal lesion is seen. Skeletal structures: The skeletal structures are osteopenic. There is advanced lumbosacral spondylosi s. No lytic or blastic lesions are seen. IMPRESSION: 1. Suboptimal examination without IV contrast. The examination is also degraded by streak and motion. 2. No acute infectious or inflammatory findings are identified in the abdomen or pelvis. No significa nt change from 02/13/2021. 3. No bowel obstruction. 4. Additional findings as above. ACT 112: Negative or not required by law. Electronically signed by: Scott Tello M.D. 02/21/2021 4:41 PM
[2021-02-21 16:52] LABS: Albumin Globulin Ratio 0.6 (0.9-2); Albumin Level 2.3 gm/dl (3.4-5.0); BUN Creatinine Ratio 9.5 (10-20); Bilirubin,Total 0.5 mg/dl (0.2-1); Calcium 7.9 mg/dl (8.5-10.1); Creatinine Clr Calc Pharmacy 9.1 ml/min; Est GFR (African American) 7.3 ml/min; Est GFR (Non-African American) 6.3 ml/min; Globulin 3.8 gm/dl (2.5-4.0); Magnesium 3.9 mg/dl (1.8-2.4); Potassium 4.1 mmol/L (3.5-5.1); Thyroid Stimulating Hormone 0.253 uIu/ml (0.300-4.500); Total Protein 6.1 gm/dl (6.4-8.2); Troponin I 0.02 ng/ml (0-0.045)
[2021-02-21 17:05] LABS: T4 Free Thyroxine 1.05 ng/dl (0.8-1.6)
[2021-02-21] MEDS ORDERED: SODIUM CHLORIDE 0.9% 1000ML 500 ML IV ONE (17:05)
[2021-02-21 18:09] LABS: Appearance Urine Turbid (Clear); Bacteria Urine Automated 4+ (Negative); Bilirubin Urine Negative (Negative); Blood Urine Negative (Negative); Color Urine Dark Yellow; Epithelial Cell Urine Auto >30 /lpf (0-5); Glucose Urine UA Negative (Negative); Ketones Urine Trace (Negative); Leukocyte Esterase Urine 3+ (Negative); Nitrite Urine Negative (Negative); Protein Urine 1+ (Negative); Specific Gravity Urine 1.017 (1.000-1.030); Urobilinogen Urine Negative (Negative); WBC Urine Automated >30 /hpf (0-5)
[2021-02-21 18:27] LABS: RBC Urine Automated 0-4 /hpf (0-4)
[2021-02-21 18:28] LABS: Cast Urine Automated 0 /lpf (0-5)
[2021-02-21] MEDS ORDERED: PIPERACILLIN/TAZOBACTAM 4.5 GM/120 ML BAG IV ONE (19:03)
[2021-02-21] MEDS ORDERED: PIPERACILL/TAZOBAC CONSULT ACTIVE PRN ×2 (19:03→21:29)
[2021-02-21] MEDS ORDERED: GLUCOSE 40% GEL 15 GM TUBE PO PRN (20:56)
[2021-02-21] MEDS ORDERED: NYSTATIN POWDER 15GM BTL EXT PRN (20:56)
[2021-02-21] MEDS ORDERED: BACLOFEN 10 MG TAB PO PRN (20:56)
[2021-02-21] MEDS ORDERED: GLUCOSE 10 TABS/TUBE PO PRN (20:56)
[2021-02-21] MEDS ORDERED: CARBOHYDRATES FOR HYPOGLYCEMIA PO PRN (20:56)
[2021-02-21] MEDS ORDERED: DEXTROSE 50% 50 ML SYRINGE IV PRN (20:56)
[2021-02-21] MEDS ORDERED: GLUCAGON FOR INJ 1 MG VIAL SQ PRN (20:56)
[2021-02-21] MEDS ORDERED: GABAPENTIN 300 MG CAP PO SCH (21:00)
[2021-02-21] MEDS ORDERED: PHARMACY GLYCEMIC MGMT CONSULT PRN (21:42)
[2021-02-21] MEDS ORDERED: BUTT PASTE (ZINC OXIDE 16%) 171 APPLN/57 GM JAR EXT PRN (21:55)
[2021-02-21] MEDS: INSULIN ASPART 100 UNITS/ML 3 ML PEN SC SCH (22:02)
[2021-02-21] MEDS: SODIUM CHLORIDE 0.9% 1000ML 1,000 ML IV SCH (22:08)
[2021-02-21] MEDS ORDERED: INSULIN GLARGINE SOLOSTAR 100 UNITS/ML 3 ML PEN SC SCH (22:15)
[2021-02-21] MEDS: hydrALAZINE TAB 50 MG TAB PO SCH (22:20)
[2021-02-21] MEDS: TERAZOSIN HCL 1 MG CAP PO SCH (22:20)
[2021-02-21] MEDS: TOPIRAMATE 25 MG TAB PO SCH (22:21)
[2021-02-21] MEDS: carvediloL 6.25 MG TAB PO SCH (22:22)
[2021-02-21] MEDS: HEPARIN SOD 5,000 UNIT/0.5 ML VIAL SQ SCH (22:22)
[2021-02-21] MEDS: clonazePAM 1 MG TAB PO SCH (22:30)
[2021-02-22] MEDS ORDERED: INSULIN ASPART 100 UNITS/ML 3 ML PEN SC SCH (02:00)
[2021-02-22] MEDS: PIPERACILLIN/TAZOBACTAM 4.5 GM in DEXTROSE 5% 100 ML IV SCH ×2 (04:34→15:19)
[2021-02-22] MEDS: HEPARIN SOD 5,000 UNIT/0.5 ML VIAL SQ SCH ×3 (05:12→21:47)
--- NOTE | 2021-02-22 07:35 | Hospitalist Progress Note ---
Date of Service February 22, 2021 Assessment & Plan (1) Acute UTI: Continued urinary symptoms - recently diagnosed with Enterobacter UTI, initially treated with IV Zosyn, then changed to Cipro - Resume IV Zosyn - Check repeat urine culture - Was not compliant c Abx at home, hence reason for readmission (2) Acute kidney injury superimposed on CKD: Creatinine at discharge on 02/16/21 was 1.65, today 6.00. Baseline does have baseline CKD - Will give one liter fluid bolus in ED then IVF at 100 ml/hr - HOLD Lasix - Check renal imaging - Consult nephrology for additional recommendations - Griffin cath - Monitor Is and Os (3) Fall: Per EMS and pt, multiple falls at home this week since being discharged due to ongoing weakness - Consult PT/OT - Consult case management to assist with discharge planning, potential need for placement - Fall precautions (4) Stage III pressure ulcer: Has been following with wound care outpatient - Will consult wound care nurse this admission (5) CHF (congestive heart failure): CXR concerning for potential pulmonary edema but lungs clear on exam. Holding diuretics in the setting of MAGGIE. Will continue to monitor closely but appears to be close to baseline at present. Not hypoxic in the ED. (6) GERD (gastroesophageal reflux disease): - Continue outpatient famotidine and PPI (7) Hypertension: Holding Lisinopril and Lasix due to MAGGIE. Continue other home meds but dosing renally adjusted when appropriate. May need to titrate regimen during admission (8) Insulin dependent diabetes mellitus: - Diabetic diet - Accu checks ACHS - Resume outpatient Lantus as half dose initially - unclear how compliant pt has been with insulin regimen - Insulin sliding scale - Consult pharm for assistance with glycemic management DVT Prophylaxis: heparin subQ Code status: full code Labs checked ROS-No Headache, No Visual Changes, No Nausea, No Vomiting, No Fever, No Chills, No Neck Pain or Stiffness, No Chest Pain, No Palpitations, No SOB, No MUÑOZ, No Cough, No Sputum, No Wheezing, No Abdominal Pain, No Diarrhea, No Hematemesis, No Hemoptysis, No Unexpected Weight Loss, No Flank pain, No Melena, No Hematochezia, No Frequency, No Urgency, No Burning, No Hematuria, No Rashes, No Diaphoresis. Appetite is Normal, +weakness Physical Exam Gen-AAO x 3, NAD, Afebrile, obese, Weak Head-NCAT, EOMI, PERRLA, Anicteric Sclera, No Posterior Pharyngeal Erythema Neck-Supple, No JVD, No Thyromegaly, No Masses, No LAD, No Bruits Lungs-Clear to Auscultation Bilaterally, No Rales, No Rhonchi, No Wheezing, No Crepitus Chest-No S4, +S1, +S2, No S3, No Murmurs, No Rubs, No Gallops, No Ectopy Abdomen-Soft, Bowel Sounds Present, Non Tender, Non Distended, No Hepatomegaly, No Splenomegaly, No Palpable Masses, No Rebound, No Rigidity, No Guarding Musculoskeletal-Full Range of Motion Bilaterally, No CVAT Extremities-No Cyanosis, No Clubbing, Mild Edema Nuero-Cranial Nerves II-XII grossly intact, Motor WNL, DTRs WNL, Strength WNL, Non Focal Psych-Normal Mood Admission and Anticipated Discharge Date Admission Date: February 21, 2021 Results & Data Results & Data ([facility]) Vital Signs (Past 12 Hours) Vital Signs Temp Pulse Resp BP Pulse Ox 02/22/21 07:19 37.5 C 57 L 16 134/70 95 02/21/21 23:28 36.9 C 73 18 115/65 95 02/21/21 22:16 60 18 132/50 L 94 02/21/21 20:12 36.9 C 73 18 127/72 95 (1) Fall Encounter type: initial encounter Qualified Code(s): W19.XXXA - Unspecified fall, initial encounter
[2021-02-22 08:49] LABS: BUN Creatinine Ratio 12.3 (10-20); Calcium 7.6 mg/dl (8.5-10.1); Creatinine Clr Calc Pharmacy 11.4 ml/min; Est GFR (African American) 9.6 ml/min; Est GFR (Non-African American) 8.2 ml/min; Magnesium 3.6 mg/dl (1.8-2.4); Potassium 4.2 mmol/L (3.5-5.1)
[2021-02-22] MEDS: amLODIPine BESYLATE 5 MG TAB PO SCH (08:52)
[2021-02-22] MEDS: ASPIRIN 81 MG ECTAB PO SCH (08:52)
[2021-02-22] MEDS: ISOSORBIDE MONO EXTENDED REL 60 MG TABCR PO SCH (08:53)
[2021-02-22] MEDS: FLUTICASONE PROPIONATE NA SPR 16 GM BTL SCH (08:53)
[2021-02-22] MEDS: FAMOTIDINE 20 MG TAB PO SCH (08:53)
[2021-02-22] MEDS: GABAPENTIN 100 MG CAP PO SCH (08:53)
[2021-02-22] MEDS: SERTRALINE HCL 50 MG TABLET PO SCH (08:54)
[2021-02-22] MEDS: TOPIRAMATE 25 MG TAB PO SCH ×2 (08:54→21:45)
[2021-02-22] MEDS: PANTOprazole 40 MG TAB PO SCH (08:54)
[2021-02-22] MEDS: carvediloL 6.25 MG TAB PO SCH ×2 (08:55→21:47)
[2021-02-22 08:57] LABS: Basophils # (auto) 0.01 K/uL (0-0.2); Basophils % (auto) 0.1 %; Eosinophils # (auto) 0.45 K/uL (0-0.5); Eosinophils % (auto) 4.6 %; Hematocrit (blood only) 24.8 % (37-47); Hemoglobin 7.9 g/dL (12.0-16.0); Immature Granulocytes # (auto) 0.04 K/uL (0.00-0.02); Immature Granulocytes % (auto) 0.4 %; Lymphocytes % (auto) 33.8 %; Mean Corpuscular Hemoglobin 29.6 pg (25-34); Mean Corpuscular Hgb Conc 31.9 g/dL (32-36); Mean Corpuscular Volume 92.9 fL (80-100); Mean Platelet Volume 10.7 fL (7.4-10.4); Monocytes # (auto) 1.14 K/uL (0.11-0.59); Monocytes % (auto) 11.7 %; Neutrophils # (auto) 4.82 K/uL (1.4-6.5); Neutrophils % (auto) 49.4 %; Platelet Count 209 K/uL (130-400); RDW Coefficient of Variation 14.9 % (11.5-14.5); Red Blood Count 2.67 M/uL (4.2-5.4); White Blood Count 9.76 K/uL (4.8-10.8)
[2021-02-22] MEDS: oxyCODONE/ACETAMINOPHEN 5mg/325mg TAB PO PRN ×2 (08:58→22:00)
[2021-02-22] MEDS ORDERED: GABAPENTIN 300 MG CAP PO SCH (09:00)
[2021-02-22] MEDS: INSULIN ASPART 100 UNITS/ML 3 ML PEN SC SCH ×4 (09:05→21:39)
[2021-02-22] MEDS: INSULIN GLARGINE SOLOSTAR 100 UNITS/ML 3 ML PEN SC SCH ×2 (09:06→21:40)
[2021-02-22 09:11] LABS: RBC Morphology Unremarkable
--- NOTE | 2021-02-22 09:22 | Nephrology Consultation ---
Date of Consultation February 22, 2021 Assessment & Plan (1) Acute kidney injury superimposed on CKD: Likely prerenal on the second setting of poor oral intake and ongoing cystitis, -Renal functions have started ,to improve with IV fluid resuscitation,UOP has been 500 mls, which is encouraging -Unlikely will need dialysis this admission Continue with careful IV fluids, decrease fluid rate to 75 mls / hr. Agree with stopping lisinopril and furosemide and potassium supplements. IV contrast only if lifesaving Avoid nephrotoxic's Daily BMP, BP has been good , continue on the present combination. We will get an nonurgent ultrasound kidneys to assess the size as CT comments about the kidneys being atrophic. (2) Acute UTI: Blood cultures positive for gram-negative bacilli, Final culture and sensitivities awaited. Patient had got 1 dose of Zosyn. Recommend renally dose of Ceftriaxone until final culture sensitivities available. History of Present Illness Requesting Physician: Acute kidney injury on CKD Attending Physician: Roni Francisco DO History of Present Illness 75-year-old female, past medical history significant of morbid obesity, insulin- dependent diabetes, diabetic polyneuropathy, CKD stage IV baseline creatinine from 1.5-1.6, CAD, chronic heart failure with preserved ejection fraction, hypertension, hyperlipidemia longstanding bilateral lymphedema presented to the ER with decreased oral intake, increasing weakness and frequent falls, he was recently discharged on 02/16 after being admitted with acute metabolic encephalopathy UTI exacerbation of heart failure, pressure ulcers on the left buttock and thigh. Poor historian not sure whether she was taking her medicines as prescribed she does complain of pain in the right shoulders and knees after a fall, and having loose stools. Your labs were significant for a raised white cell count of 12.7, latest BUN/serum creatinine 57/6, UA positive for bacteria. Blood pressure was within normal range, Saturations were around 95% on room air. She was started on IV fluid resuscitation and given a dose of Zosyn.She does not recall having seen by her airport location manager in the past. Allergies Allergy/AdvReac Type Severity Reaction Status Date / Time loratadine Allergy Intermediate MOUTH Verified 02/21/21 16:24 SWELLING diphenhydramine AdvReac Intermediate GMG-SHAKING Verified 02/21/21 16:24 [From Benadryl] & SWEATING metformin AdvReac Intermediate causes Verified 02/21/21 16:24 kidney problems Sulfa (Sulfonamide AdvReac Intermediate Unknown Verified 02/21/21 16:24 Antibiotics) sulfamethoxazole AdvReac Intermediate GMG-RENAL Verified 02/21/21 16:24 COMPLICATIONS trimethoprim AdvReac Intermediate GMG-RENAL Verified 02/21/21 16:24 COMPLICATIONS Mbqvrdj-Rqi-Qds Reductase AdvReac Mild Gastrointestinal Verified 02/21/21 16:24 Inhibitor Upset Home Medications Medication Instructions Recorded Confirmed Type Lantus Solostar U-100 Insulin 20 unit SUBCUT BID 02/14/19 02/21/21 History amlodipine 10 mg PO QAM 02/14/19 02/21/21 History fluticasone propionate 2 spray INTRANASAL QAM 02/14/19 02/21/21 History gabapentin 300 mg PO TID 02/14/19 02/21/21 History hydralazine 100 mg PO TID 02/14/19 02/21/21 History insulin lispro [Humalog KwikPen 10 unit SUBCUT TIDM 02/14/19 02/21/21 History Insulin] pantoprazole 40 mg PO QAM 02/14/19 02/21/21 History rosuvastatin 40 mg PO HS 02/14/19 02/21/21 History sertraline 50 mg PO QAM 02/14/19 02/21/21 History terazosin 1 mg PO HS 02/14/19 02/21/21 History topiramate 25 mg PO BID 02/14/19 02/21/21 History clonazepam 1 mg PO HS 03/02/19 02/21/21 History isosorbide mononitrate 120 mg PO QAM 04/23/19 02/21/21 History oxycodone-acetaminophen [Percocet] 1 tab PO TID PRN 04/23/19 02/21/21 History polyethylene glycol 3350 [Miralax] 17 g PO QAM 04/23/19 02/21/21 History baclofen 5 mg PO BID PRN 08/16/20 02/21/21 History diclofenac sodium 1 ea TOPICAL BID PRN 08/16/20 02/21/21 History famotidine 20 mg PO DAILY 08/16/20 02/21/21 History furosemide 40 mg PO QAM 08/16/20 02/21/21 History ondansetron HCl 8 mg PO TID PRN 08/16/20 02/21/21 History Lactinex 1 tab PO DAILY 10/27/20 02/21/21 History nystatin 1 applic TOPICAL TID PRN 10/27/20 02/21/21 History potassium chloride [Klor-Con M10] 10 meq PO DAILY 12/05/20 02/21/21 History lisinopril 10 mg PO QAM #30 tab 12/08/20 02/21/21 Rx aspirin 81 mg PO DAILY 02/13/21 02/21/21 History zinc oxide 1 applic TOPICAL DIRECTED PRN 02/13/21 02/21/21 History carvedilol 6.25 mg PO AMHS #60 tab 02/16/21 02/21/21 Rx ciprofloxacin HCl 500 mg PO Q12 #6 tab 02/16/21 02/21/21 Rx Patient History Medical History Acute UTI Adjustment disorder CAD (coronary artery disease) CHF (congestive heart failure) CKD (chronic kidney disease) CKD (chronic kidney disease), stage III Encephalopathy acute GERD (gastroesophageal reflux disease) HLD (hyperlipidemia) Hypertension Hyponatremia IBS (irritable bowel syndrome) Insulin dependent diabetes mellitus Mood disorder Morbid obesity Paroxysmal A-fib Pressure ulcer Surgical History H/O hernia repair H/O: H/O: hysterectomy S/P cholecystectomy Family History Brother Prostate cancer Father Diabetes Social History Smoking Status: Unknown if ever smoked Second Hand Exposure: No; Do You Dip or Chew Tobacco: No; Hx Alcohol Use: No Hx Substance Use: No Preferred Language: [place] Communication Ability: Effective Visual Impairment: No Limitations Manufacturing Planner Required: No Beliefs That Will Affect Care: None marital status: / Current Living Situation: Family Other Information That Helps Us Care for You: No Feels Safe at Home: Yes Safety Concerns: Feels Safe At This Time Assistive Devices: Glasses Review of Systems Review of Systems: All systems reviewed & are unremarkable except as noted in HPI & below and Other Positive for weakness and anorexia. positive for 1+pedal edema and chronic venous statis changes positive for dysuria. Physical Exam Physical Exam: Obese, Comfortable, not in distress Chest-: lungs clear to auscultation bilaterally CVS-Rate/Rhythm: regular rate and rhythm Abdomen- normal bowel sounds; abdomen not distended,no tenderness moves all extremities Speech / Cognition: normal speech A+Ox3 Results & Data ([facility]) Vital Signs (Past 12 Hours) Vital Signs Temp Pulse Resp BP Pulse Ox 02/22/21 07:19 37.5 C 57 L 16 134/70 95 02/21/21 23:28 36.9 C 73 18 115/65 95 02/21/21 22:16 60 18 132/50 L 94 Laboratory Results 02/22/21 08:03 02/22/21 08:03
[2021-02-22] MEDS: hydrALAZINE TAB 50 MG TAB PO SCH ×3 (09:41→21:46)
[2021-02-22] MEDS: SODIUM CHLORIDE 0.9% 1000ML 1,000 ML IV SCH (09:42)
--- NOTE | 2021-02-22 14:35 | Pharmacy Report ---
Pharmacy Glycemic Short Note 2 - Date of Service February 22, 2021 - Glycemic Short BSG Results (Last 24 hours): 02/21/21 02/21/21 02/22/21 16:12 21:44 02:01 Glucose 231 H POC Glucose 241 H 121 H 02/22/21 02/22/21 02/22/21 08:02 08:03 09:04 Glucose 108 H POC Glucose 120 H 119 H 02/22/21 11:58 Glucose POC Glucose 109 H OUTPATIENT ANTIDIABETIC REGIMEN: * Lantus 20 units BID, humalog 10 units tidm - hold if BSG <160 * A1c 7.5% 02/14/21 ASSESSMENT: * 75 year old admitted with acute metabolic encephalopathy, UTI, CHF exacerbation. Significant MAGGIE on admission. Baseline Scr 1.6 mg/dL from other records. Type 2 diabetic managed on insulin at home * Fasting BSG this AM 108 mg/dL - plan to cut back on insulin 50% this AM d/t severe MAGGIE, will give 10 units * Lunch BSG 109 mg/dL - plan to continue novolog with looser parameters for now. PO intake also poorer. Plan to add scale for Lantus at HS PLAN FOR INPATIENT GLYCEMIC CONTROL: * Hold outpatient oral diabetes medications * Basal insulin * Lantus 10 units x 1 * Lantus 10-20 units BID based upon BSG value * Bolus insulin * NovoLog per scale ACHS or Q6hrs while NPO * Goal Range: Low 120 mg/dL - High 160 mg/dL * Correction Factor: 30 mg/dL/unit * Nutritional / Prandial insulin per carb ratio of 1 unit per 12 grams CHO consumed PLAN FOR DISCHARGE: * tbd
[2021-02-22] MEDS: TERAZOSIN HCL 1 MG CAP PO SCH (21:46)
[2021-02-22] MEDS: clonazePAM 1 MG TAB PO SCH (21:51)
[2021-02-23] MEDS: PIPERACILLIN/TAZOBACTAM 4.5 GM in DEXTROSE 5% 100 ML IV SCH (04:56)
[2021-02-23] MEDS: HEPARIN SOD 5,000 UNIT/0.5 ML VIAL SQ SCH ×3 (05:00→20:33)
[2021-02-23 07:13] LABS: BUN Creatinine Ratio 16.6 (10-20); Calcium 7.7 mg/dl (8.5-10.1); Est GFR (African American) 15.5 ml/min; Est GFR (Non-African American) 13.4 ml/min; Potassium 4.1 mmol/L (3.5-5.1)
--- NOTE | 2021-02-23 07:48 | Hospitalist Progress Note ---
Date of Service February 23, 2021 Assessment & Plan (1) Acute UTI: Continued urinary symptoms - recently diagnosed with Enterobacter UTI, initially treated with IV Zosyn, then changed to Cipro - IV Zosyn-Gram neg Bacilli - Was not compliant c Abx at home, hence reason for readmission - WBCs are trending down (2) Acute kidney injury superimposed on CKD: Creatinine at discharge on 02/16/21 was 1.65, 6.00 on admission, Making urine, Cr trending down, Renal on case. - IVF at 75 ml/hr - HOLD Lasix - Check renal imaging - Nephrology on case - Griffin cath - Monitor Is and Os (3) Fall: Per EMS and pt, multiple falls at home this week since being discharged due to ongoing weakness - Consult PT/OT - Consult case management to assist with discharge planning, potential need for placement - Fall precautions (4) Stage III pressure ulcer: Has been following with wound care outpatient - wound care nurse consulted (5) CHF (congestive heart failure): CXR concerning for potential pulmonary edema but lungs clear on exam. Holding diuretics in the setting of MAGGIE. Will continue to monitor closely but appears to be close to baseline at present. Not hypoxic in the ED. (6) GERD (gastroesophageal reflux disease): - Continue outpatient famotidine and PPI (7) Hypertension: Holding Lisinopril and Lasix due to MAGGIE. Continue other home meds but dosing renally adjusted when appropriate. May need to titrate regimen during admission (8) Insulin dependent diabetes mellitus: - Diabetic diet - Accu checks ACHS - Resume outpatient Lantus as half dose initially - unclear how compliant pt has been with insulin regimen - Insulin sliding scale - pharm for glycemic management DVT Prophylaxis: heparin subQ Code status: full code Labs checked ROS-No Headache, No Visual Changes, No Nausea, No Vomiting, No Fever, No Chills, No Neck Pain or Stiffness, No Chest Pain, No Palpitations, No SOB, No MUÑOZ, No Cough, No Sputum, No Wheezing, No Abdominal Pain, No Diarrhea, No Hematemesis, No Hemoptysis, No Unexpected Weight Loss, No Flank pain, No Melena, No Hematochezia, No Frequency, No Urgency, No Burning, No Hematuria, No Rashes, No Diaphoresis. Appetite is Normal, +weakness Physical Exam Gen-AAO x 3, NAD, Afebrile, obese, Less Weak Head-NCAT, EOMI, PERRLA, Anicteric Sclera, No Posterior Pharyngeal Erythema Neck-Supple, No JVD, No Thyromegaly, No Masses, No LAD, No Bruits Lungs-Clear to Auscultation Bilaterally, No Rales, No Rhonchi, No Wheezing, No Crepitus Chest-No S4, +S1, +S2, No S3, No Murmurs, No Rubs, No Gallops, No Ectopy Abdomen-Soft, Bowel Sounds Present, Non Tender, Non Distended, No Hepatomegaly, No Splenomegaly, No Palpable Masses, No Rebound, No Rigidity, No Guarding Musculoskeletal-Full Range of Motion Bilaterally, No CVAT Extremities-No Cyanosis, No Clubbing, Mild Edema Nuero-Cranial Nerves II-XII grossly intact, Motor WNL, DTRs WNL, Strength WNL, Non Focal Psych-Normal Mood Admission and Anticipated Discharge Date Admission Date: February 21, 2021 Results & Data Results & Data ([facility]) Vital Signs (Past 12 Hours) Vital Signs Temp Pulse Resp BP Pulse Ox 02/23/21 07:27 36.9 C 59 L 18 136/66 97 02/22/21 22:39 36.9 C 73 18 124/64 92 02/22/21 21:44 64 18 145/69 H 98 (1) Fall Encounter type: initial encounter Qualified Code(s): W19.XXXA - Unspecified fall, initial encounter
[2021-02-23] MEDS: ASPIRIN 81 MG ECTAB PO SCH (08:48)
[2021-02-23] MEDS: SERTRALINE HCL 50 MG TABLET PO SCH (08:48)
[2021-02-23] MEDS: GABAPENTIN 100 MG CAP PO SCH (08:49)
[2021-02-23] MEDS: ISOSORBIDE MONO EXTENDED REL 60 MG TABCR PO SCH (08:49)
[2021-02-23] MEDS: FAMOTIDINE 20 MG TAB PO SCH (08:49)
[2021-02-23] MEDS: FLUTICASONE PROPIONATE NA SPR 16 GM BTL SCH (08:49)
[2021-02-23] MEDS: TOPIRAMATE 25 MG TAB PO SCH ×2 (08:50→20:32)
[2021-02-23] MEDS: PANTOprazole 40 MG TAB PO SCH (08:50)
[2021-02-23] MEDS: amLODIPine BESYLATE 5 MG TAB PO SCH (08:51)
[2021-02-23] MEDS: hydrALAZINE TAB 50 MG TAB PO SCH ×3 (08:51→20:32)
[2021-02-23] MEDS: carvediloL 6.25 MG TAB PO SCH ×2 (08:51→20:31)
[2021-02-23] MEDS: INSULIN ASPART 100 UNITS/ML 3 ML PEN SC SCH ×4 (08:53→20:22)
[2021-02-23] MEDS: INSULIN GLARGINE SOLOSTAR 100 UNITS/ML 3 ML PEN SC SCH ×2 (08:54→20:22)
--- NOTE | 2021-02-23 11:54 | Nephrology Progress Note ---
Date of Service February 23, 2021 Assessment & Plan (1) Acute kidney injury superimposed on CKD: Likely prerenal on the second setting of poor oral intake and ongoing cystitis, -Renal functions have started to improve with IV fluid resuscitation,UOP has improved as well. -Unlikely will need dialysis this admission Continue with careful IV fluids, fluid rate to 75 mls / hr for one more day. Agree with stopping lisinopril and furosemide and potassium supplements. IV contrast only if lifesaving Avoid nephrotoxic's Daily BMP, BP has been good , continue on the present combination. We will get an nonurgent ultrasound kidneys to assess the size as CT comments about the kidneys being atrophic. (2) Acute UTI: Blood cultures positive for gram-negative bacilli, Final culture and sensitivities awaited. Patient had got 1 dose of Zosyn. Recommend renally dose of Ceftriaxone until final culture sensitivities available. Admission and Anticipated Discharge Date Admission Date: February 21, 2021 Subjective Looks more somlonent today, Oral intake poor. Review of Systems Review of Systems: SOMLONANT positive for 1+pedal edema and chronic venous statis changes Physical Exam Physical Exam: Obese, Comfortable, not in distress, More somlonent Chest-: lungs clear to auscultation bilaterally CVS-Rate/Rhythm: regular rate and rhythm Abdomen- normal bowel sounds; abdomen not distended,no tenderness moves all extremities Speech / Cognition: normal speech A+Ox3 Results & Data ([facility]) Vital Signs (Past 12 Hours) Vital Signs Temp Pulse Resp BP Pulse Ox 02/23/21 07:27 36.9 C 59 L 18 136/66 97 Diagnostic Findings 02/22/21 08:03 02/23/21 06:32
[2021-02-23] MEDS: NORMOSOL-R 1,000 ML IV SCH (12:16)
[2021-02-23] MEDS: oxyCODONE/ACETAMINOPHEN 5mg/325mg TAB PO PRN ×2 (12:20→20:31)
[2021-02-23] MEDS: cefTRIAXone SODIUM 2,000 MG in DEXTROSE 5% 50 ML IV SCH (13:26)
--- NOTE | 2021-02-23 14:07 | Pharmacy Report ---
Pharmacy Glycemic Short Note 2 - Date of Service February 23, 2021 - Glycemic Short BSG Results (Last 24 hours): 02/22/21 02/22/21 02/23/21 17:14 20:54 06:32 Glucose 89 POC Glucose 185 H 184 H 02/23/21 02/23/21 07:58 12:06 Glucose POC Glucose 107 H 137 H OUTPATIENT ANTIDIABETIC REGIMEN: * Lantus 20 units BID, humalog 10 units tidm - hold if BSG <160 * A1c 7.5% 02/14/21 ASSESSMENT: 02/23 * Patient received total of 30 units of insulin yesterday, of which 25 units were basal insulin (~40% of outpatient dose) * Fasting BSG 89 mg/dL - PO intake still poor this morning. Plan to scale back further on basal insulin today. Concerned with BSGs trending down 02/22 * 75 year old admitted with acute metabolic encephalopathy, UTI, CHF exacerbation. Significant MAGGIE on admission. Baseline Scr 1.6 mg/dL from other records. Type 2 diabetic managed on insulin at home * Fasting BSG this AM 108 mg/dL - plan to cut back on insulin 50% this AM d/t severe MAGGIE, will give 10 units * Lunch BSG 109 mg/dL - plan to continue novolog with looser parameters for now. PO intake also poorer. Plan to add scale for Lantus at HS PLAN FOR INPATIENT GLYCEMIC CONTROL: * Hold outpatient oral diabetes medications * Basal insulin * Lantus 8 units x 1 * Lantus 8-10 units bid * Bolus insulin * NovoLog per scale ACHS or Q6hrs while NPO * Goal Range: Low 120 mg/dL - High 160 mg/dL * Correction Factor: 30 mg/dL/unit * Nutritional / Prandial insulin per carb ratio of 1 unit per 12 grams CHO consumed PLAN FOR DISCHARGE: * tbd
[2021-02-23] MEDS: clonazePAM 1 MG TAB PO SCH (20:31)
[2021-02-23] MEDS: TERAZOSIN HCL 1 MG CAP PO SCH (20:32)
[2021-02-24] MEDS: NORMOSOL-R 1,000 ML IV SCH ×3 (03:15→21:52)
[2021-02-24] MEDS: HEPARIN SOD 5,000 UNIT/0.5 ML VIAL SQ SCH ×3 (05:25→20:46)
[2021-02-24 07:49] LABS: Hematocrit (blood only) 27.4 % (37-47); Hemoglobin 8.9 g/dL (12.0-16.0); Mean Corpuscular Hgb Conc 32.5 g/dL (32-36); Mean Corpuscular Volume 92.3 fL (80-100); Mean Platelet Volume 9.9 fL (7.4-10.4); Platelet Count 237 K/uL (130-400); RDW Coefficient of Variation 14.6 % (11.5-14.5); RDW Standard Deviation 49.5 fL (36.4-46.3); Red Blood Count 2.97 M/uL (4.2-5.4); White Blood Count 6.84 K/uL (4.8-10.8)
[2021-02-24] MEDS: FAMOTIDINE 20 MG TAB PO SCH (08:10)
[2021-02-24] MEDS: amLODIPine BESYLATE 5 MG TAB PO SCH (08:10)
[2021-02-24] MEDS: carvediloL 6.25 MG TAB PO SCH ×2 (08:10→20:42)
[2021-02-24] MEDS: ASPIRIN 81 MG ECTAB PO SCH (08:10)
[2021-02-24] MEDS: hydrALAZINE TAB 50 MG TAB PO SCH ×3 (08:11→20:43)
[2021-02-24] MEDS: PANTOprazole 40 MG TAB PO SCH (08:11)
[2021-02-24] MEDS: GABAPENTIN 100 MG CAP PO SCH (08:11)
[2021-02-24] MEDS: SERTRALINE HCL 50 MG TABLET PO SCH (08:11)
[2021-02-24] MEDS: ISOSORBIDE MONO EXTENDED REL 60 MG TABCR PO SCH (08:11)
[2021-02-24] MEDS: TOPIRAMATE 25 MG TAB PO SCH ×2 (08:11→20:44)
[2021-02-24] MEDS: FLUTICASONE PROPIONATE NA SPR 16 GM BTL SCH (08:12)
[2021-02-24 08:26] LABS: BUN Creatinine Ratio 18.8 (10-20); Calcium 8.3 mg/dl (8.5-10.1); Creatinine Clr Calc Pharmacy 26.7 ml/min; Est GFR (African American) 26.8 ml/min; Est GFR (Non-African American) 23.1 ml/min; Potassium 4.3 mmol/L (3.5-5.1)
--- NOTE | 2021-02-24 08:38 | Hospitalist Progress Note ---
Date of Service February 24, 2021 Assessment & Plan (1) Acute UTI: Continued urinary symptoms - recently diagnosed with Enterobacter UTI, initially treated with IV Zosyn, then changed to Cipro - E Coli grew out on UA S to Rocephin, Abx deescalated - Was not compliant c Abx at home, hence reason for readmission - WBCs are normal now (2) Acute kidney injury superimposed on CKD: Creatinine at discharge on 02/16/21 was 1.65, 6.00 on admission (2 now), Making urine, Cr still trending down, Renal on case. - IVF at 75 ml/hr - HOLD Lasix - Check renal imaging - Nephrology on case - Griffin cath - Monitor Is and Os (3) Fall: Per EMS and pt, multiple falls at home this week since being discharged due to ongoing weakness - PT/OT - Consult case management to assist with discharge planning, potential need for placement - Fall precautions (4) Stage III pressure ulcer: Has been following with wound care outpatient - wound care nurse consulted (5) CHF (congestive heart failure): CXR concerning for potential pulmonary edema but lungs clear on exam. Holding diuretics in the setting of MAGGIE. Will continue to monitor closely but appears to be close to baseline at present. Not hypoxic in the ED. (6) GERD (gastroesophageal reflux disease): - Continue outpatient famotidine and PPI (7) Hypertension: Holding Lisinopril and Lasix due to MAGGIE. Continue other home meds but dosing renally adjusted when appropriate. May need to titrate regimen during admission (8) Insulin dependent diabetes mellitus: - Diabetic diet - Accu checks ACHS - Resume outpatient Lantus as half dose initially - unclear how compliant pt has been with insulin regimen - Insulin sliding scale - pharm for glycemic management DVT Prophylaxis: heparin subQ Code status: full code Labs checked-SNF on DC ROS-No Headache, No Visual Changes, No Nausea, No Vomiting, No Fever, No Chills, No Neck Pain or Stiffness, No Chest Pain, No Palpitations, No SOB, No MUÑOZ, No Cough, No Sputum, No Wheezing, No Abdominal Pain, No Diarrhea, No Hematemesis, No Hemoptysis, No Unexpected Weight Loss, No Flank pain, No Melena, No Hematochezia, No Frequency, No Urgency, No Burning, No Hematuria, No Rashes, No Diaphoresis. Appetite is Normal, +weakness Physical Exam Gen-AAO x 3, NAD, Afebrile, obese, Less Weak Head-NCAT, EOMI, PERRLA, Anicteric Sclera, No Posterior Pharyngeal Erythema Neck-Supple, No JVD, No Thyromegaly, No Masses, No LAD, No Bruits Lungs-Clear to Auscultation Bilaterally, No Rales, No Rhonchi, No Wheezing, No Crepitus Chest-No S4, +S1, +S2, No S3, No Murmurs, No Rubs, No Gallops, No Ectopy Abdomen-Soft, Bowel Sounds Present, Non Tender, Non Distended, No Hepatomegaly, No Splenomegaly, No Palpable Masses, No Rebound, No Rigidity, No Guarding Musculoskeletal-Full Range of Motion Bilaterally, No CVAT Extremities-No Cyanosis, No Clubbing, Mild Edema Nuero-Cranial Nerves II-XII grossly intact, Motor WNL, DTRs WNL, Strength WNL, Non Focal Psych-Normal Mood Admission and Anticipated Discharge Date Admission Date: February 21, 2021 Results & Data Results & Data ([facility]) Vital Signs (Past 12 Hours) Vital Signs Temp Pulse Resp BP BP Pulse Ox 02/24/21 07:52 36.7 C 65 16 147/71 H 98 02/23/21 22:31 37.1 C 55 L 16 147/64 H 97 (1) Fall Encounter type: initial encounter Qualified Code(s): W19.XXXA - Unspecified fall, initial encounter
[2021-02-24] MEDS: INSULIN GLARGINE SOLOSTAR 100 UNITS/ML 3 ML PEN SC SCH ×2 (09:57→20:51)
[2021-02-24] MEDS: INSULIN ASPART 100 UNITS/ML 3 ML PEN SC SCH ×4 (09:57→20:45)
--- NOTE | 2021-02-24 12:13 | Electrocardiogram Report ---
Test Reason : Blood Pressure : / mmHG Vent. Rate : 070 BPM Atrial Rate : 070 BPM P-R Int : 190 ms QRS Dur : 096 ms QT Int : 408 ms P-R-T Axes : 070 -56 012 degrees QTc Int : 440 ms Poor data quality, interpretation may be adversely affected Normal sinus rhythm Left axis deviation Cannot rule out Anterior infarct (cited on or before 21-FEB-2021) Abnormal ECG When compared with ECG of 13-FEB-2021 15:49, No significant change was found Confirmed by Brett Patel ([id number]) on 02/24/2021 12:12:51 PM Referred By: REFERRED SELF Confirmed By:Brett Patel
[2021-02-24] MEDS: cefTRIAXone SODIUM 2,000 MG in DEXTROSE 5% 50 ML IV SCH (13:10)
--- NOTE | 2021-02-24 14:09 | Pharmacy Report ---
Pharmacy Glycemic Short Note 2 - Date of Service February 24, 2021 - Glycemic Short BSG Results (Last 24 hours): 02/23/21 02/23/21 02/24/21 16:49 19:45 07:25 Glucose 100 H POC Glucose 129 H 141 H 02/24/21 02/24/21 07:57 11:34 Glucose POC Glucose 107 H 159 H OUTPATIENT ANTIDIABETIC REGIMEN: * Lantus 20 units BID, humalog 10 units tidm - hold if BSG <160 * A1c 7.5% 02/14/21 ASSESSMENT: 02/24 * Patient received 18 units of insulin yesterday, 16 of which were basal * Fasting BSG 107 mg/dL; Patient continues to have poor PO intake, basal has been slightly reduced in scale * SCr continues to improve, down to 2.05 today, may need increase in insulin if po intake improves/renal function continues to improve 02/23 * Patient received total of 30 units of insulin yesterday, of which 25 units were basal insulin (~40% of outpatient dose) * Fasting BSG 89 mg/dL - PO intake still poor this morning. Plan to scale back further on basal insulin today. Concerned with BSGs trending down 02/22 * 75 year old admitted with acute metabolic encephalopathy, UTI, CHF exacerbation. Significant MAGGIE on admission. Baseline Scr 1.6 mg/dL from other records. Type 2 diabetic managed on insulin at home * Fasting BSG this AM 108 mg/dL - plan to cut back on insulin 50% this AM d/t severe MAGGIE, will give 10 units * Lunch BSG 109 mg/dL - plan to continue novolog with looser parameters for now. PO intake also poorer. Plan to add scale for Lantus at HS PLAN FOR INPATIENT GLYCEMIC CONTROL: * Hold outpatient oral diabetes medications * Basal insulin * Lantus 6-10 units bid * Bolus insulin * NovoLog per scale ACHS or Q6hrs while NPO * Goal Range: Low 120 mg/dL - High 160 mg/dL * Correction Factor: 30 mg/dL/unit * Nutritional / Prandial insulin per carb ratio of 1 unit per 12 grams CHO consumed PLAN FOR DISCHARGE: * tbd
[2021-02-24] MEDS: ONDANSETRON INJ 2 MG/ML 2 ML VIAL IV PRN (18:36)
[2021-02-24] MEDS: oxyCODONE/ACETAMINOPHEN 5mg/325mg TAB PO PRN (19:20)
[2021-02-24] MEDS: TERAZOSIN HCL 1 MG CAP PO SCH (20:43)
[2021-02-24] MEDS: clonazePAM 1 MG TAB PO SCH (20:46)
[2021-02-25] MEDS: HEPARIN SOD 5,000 UNIT/0.5 ML VIAL SQ SCH ×3 (05:15→20:29)
[2021-02-25 07:14] LABS: Hematocrit (blood only) 27.3 % (37-47); Hemoglobin 8.6 g/dL (12.0-16.0); Mean Corpuscular Hemoglobin 29.6 pg (25-34); Mean Corpuscular Hgb Conc 31.5 g/dL (32-36); Mean Corpuscular Volume 93.8 fL (80-100); Mean Platelet Volume 9.7 fL (7.4-10.4); Platelet Count 240 K/uL (130-400); RDW Coefficient of Variation 14.4 % (11.5-14.5); RDW Standard Deviation 49.2 fL (36.4-46.3); Red Blood Count 2.91 M/uL (4.2-5.4); White Blood Count 6.71 K/uL (4.8-10.8)
[2021-02-25 07:46] LABS: BUN Creatinine Ratio 17.3 (10-20); Creatinine Clr Calc Pharmacy 37.2 ml/min; Est GFR (African American) 40.1 ml/min; Est GFR (Non-African American) 34.6 ml/min; Potassium 4.2 mmol/L (3.5-5.1)
[2021-02-25] MEDS: INSULIN ASPART 100 UNITS/ML 3 ML PEN SC SCH ×4 (08:43→20:29)
[2021-02-25] MEDS: INSULIN GLARGINE SOLOSTAR 100 UNITS/ML 3 ML PEN SC SCH ×2 (08:44→20:45)
[2021-02-25] MEDS: TOPIRAMATE 25 MG TAB PO SCH ×2 (08:44→20:28)
[2021-02-25] MEDS: carvediloL 6.25 MG TAB PO SCH ×2 (08:46→20:25)
[2021-02-25] MEDS: FAMOTIDINE 20 MG TAB PO SCH (08:47)
[2021-02-25] MEDS: PANTOprazole 40 MG TAB PO SCH (08:47)
[2021-02-25] MEDS: hydrALAZINE TAB 50 MG TAB PO SCH ×3 (08:47→20:27)
[2021-02-25] MEDS: GABAPENTIN 100 MG CAP PO SCH (08:48)
[2021-02-25] MEDS: ISOSORBIDE MONO EXTENDED REL 60 MG TABCR PO SCH (08:48)
[2021-02-25] MEDS: SERTRALINE HCL 50 MG TABLET PO SCH (08:48)
[2021-02-25] MEDS: ASPIRIN 81 MG ECTAB PO SCH (08:49)
[2021-02-25] MEDS: amLODIPine BESYLATE 5 MG TAB PO SCH (08:49)
[2021-02-25] MEDS: FLUTICASONE PROPIONATE NA SPR 16 GM BTL SCH (08:49)
[2021-02-25] MEDS: NORMOSOL-R 1,000 ML IV SCH ×2 (08:50→20:50)
--- NOTE | 2021-02-25 09:12 | Pharmacy Report ---
Pharmacy Glycemic Short Note 2 - Date of Service February 25, 2021 - Glycemic Short BSG Results (Last 24 hours): 02/24/21 02/24/21 02/24/21 11:34 16:58 20:33 Glucose POC Glucose 159 H 130 H 118 H 02/25/21 02/25/21 06:44 08:00 Glucose 99 POC Glucose 120 H OUTPATIENT ANTIDIABETIC REGIMEN: * Lantus 20 units SC BID * Humalog 10 units SC TIDM - hold if BSG <160 * A1c 7.5% 02/14/21 ASSESSMENT: 02/25: * Mckenna received a total of 13 units of insulin yesterday * 12 units basal + 1 unit bolus * BSGs were well controlled: [phone] mg/dL * Fasting BSG was well controlled at 120 mg/dL this AM * SCr continues to improve, down to 1.47 mg/dL * Oral intake improved with breakfast today * No changes in insulin regimen today PLAN FOR INPATIENT GLYCEMIC CONTROL: * Basal insulin - no changes * Lantus 6-10 units SC BID * 6 units for BSG less than 140 mg/dL; 8 units for BSG 140-180 mg/dL; 10 units for BSG greater than 180 mg/dL * Bolus insulin * NovoLog per scale ACHS or Q6hrs while NPO * Goal Range: Low 120 mg/dL - High 160 mg/dL * Correction Factor: 30 mg/dL/unit * Nutritional / Prandial insulin per carb ratio of 1 unit per 12 grams CHO consumed PLAN FOR DISCHARGE: * HbA1c was 7.5% on 02/14/21 which has increased from 6.9% in November 2020. Given patient's age and comorbidities, a realistic HbA1c goal would be less than 8%. * Therefore, would consider patient at goal and recommend continuing outpatient insulin regimen upon discharge.
--- NOTE | 2021-02-25 10:24 | Hospitalist Progress Note ---
Date of Service February 25, 2021 Assessment & Plan (1) Acute UTI: Continued urinary symptoms - recently diagnosed with Enterobacter UTI, initially treated with IV Zosyn, then changed to Cipro - E Coli grew out on UA S to Rocephin, Abx deescalated - ID eval ordered - Was not compliant c Abx at home, hence reason for readmission - WBCs are normal now (2) Acute kidney injury superimposed on CKD: Creatinine at discharge on 02/16/21 was 1.65, 6.00 on admission, Cr still trending down, Renal on case. - IVF at 75 ml/hr - HOLD Lasix - Nephrology on case - Griffin cath - Monitor Is and Os (3) Fall: Per EMS and pt, multiple falls at home this week since being discharged due to ongoing weakness - PT/OT - Consult case management to assist with discharge planning, potential need for placement - Fall precautions (4) Stage III pressure ulcer: Has been following with wound care outpatient - wound care nurse consulted (5) CHF (congestive heart failure): CXR concerning for potential pulmonary edema but lungs clear on exam. Holding diuretics in the setting of MAGGIE. Will continue to monitor closely but appears to be close to baseline at present. Not hypoxic in the ED. (6) GERD (gastroesophageal reflux disease): - Continue outpatient famotidine and PPI (7) Hypertension: Holding Lisinopril and Lasix due to MAGGIE. Continue other home meds but dosing renally adjusted when appropriate. May need to titrate regimen during admission (8) Insulin dependent diabetes mellitus: - Diabetic diet - Accu checks ACHS - Resume outpatient Lantus as half dose initially - unclear how compliant pt has been with insulin regimen - Insulin sliding scale - pharm for glycemic management DVT Prophylaxis: heparin subQ Code status: full code Labs checked-SNF on DC, Wants to go home, but will bounce back ROS-No Headache, No Visual Changes, No Nausea, No Vomiting, No Fever, No Chills, No Neck Pain or Stiffness, No Chest Pain, No Palpitations, No SOB, No MUÑOZ, No Cough, No Sputum, No Wheezing, No Abdominal Pain, No Diarrhea, No Hematemesis, No Hemoptysis, No Unexpected Weight Loss, No Flank pain, No Melena, No Hematochezia, No Frequency, No Urgency, No Burning, No Hematuria, No Rashes, No Diaphoresis. Appetite is Normal, +weakness Physical Exam Gen-AAO x 3, NAD, Afebrile, obese, Less Weak Head-NCAT, EOMI, PERRLA, Anicteric Sclera, No Posterior Pharyngeal Erythema Neck-Supple, No JVD, No Thyromegaly, No Masses, No LAD, No Bruits Lungs-Clear to Auscultation Bilaterally, No Rales, No Rhonchi, No Wheezing, No Crepitus Chest-No S4, +S1, +S2, No S3, No Murmurs, No Rubs, No Gallops, No Ectopy Abdomen-Soft, Bowel Sounds Present, Non Tender, Non Distended, No Hepatomegaly, No Splenomegaly, No Palpable Masses, No Rebound, No Rigidity, No Guarding Musculoskeletal-Full Range of Motion Bilaterally, No CVAT Extremities-No Cyanosis, No Clubbing, Mild Edema Nuero-Cranial Nerves II-XII grossly intact, Motor WNL, DTRs WNL, Strength WNL, Non Focal Psych-Normal Mood Admission and Anticipated Discharge Date Admission Date: February 21, 2021 Results & Data Results & Data ([facility]) Vital Signs (Past 12 Hours) Vital Signs Temp Pulse Resp BP Pulse Ox 02/25/21 08:06 36.9 C 63 18 145/69 H 96 02/24/21 22:41 36.7 C 56 L 17 127/55 L 96 (1) Fall Encounter type: initial encounter Qualified Code(s): W19.XXXA - Unspecified fall, initial encounter
[2021-02-25] MEDS: cefTRIAXone SODIUM 2,000 MG in DEXTROSE 5% 50 ML IV SCH (12:20)
[2021-02-25] MEDS: oxyCODONE/ACETAMINOPHEN 5mg/325mg TAB PO PRN ×2 (12:22→23:10)
--- NOTE | 2021-02-25 17:42 | Nephrology Progress Note ---
Date of Service February 25, 2021 Assessment & Plan (1) Acute kidney injury superimposed on CKD: Likely prerenal on the second setting of poor oral intake and ongoing cystitis > markedly improved today and back to baseline 1.4-1.5 -Renal function has started to improve with IV fluid resuscitation, UOP has improved as well. >will stop IV fluid at this point -continue to hold lisinopril and furosemide and potassium supplements. -IV contrast only if lifesaving -Daily BMP -continue roldan for now BP has been acceptable, continue on the present combination of amlodipine, coreg, terazosin, hydralazine. (2) Acute UTI: recurrent UTI > this time w/ E coli sensitive to ceftriaxone; pt w/ recent Enterobacter UTI as well; ID agrees w/ current abtx, for cefdinir po for 7- 10 days of tx Admission and Anticipated Discharge Date Admission Date: February 21, 2021 Subjective no interval events; no sob, no uncontrolled pain, no worsening edema; c/o N Review of Systems Review of Systems: All systems reviewed & are unremarkable except as noted in Subjective Physical Exam Constitutional: well developed, + obese and + frail appearing; no acute distress Eyes: EOM intact bilaterally ENMT: Ears: no external ear abnormality Nose: no external nose abnormality Mouth: + dry oral mucous membranes hoarse Neck: no nuchal rigidity Respiratory: normal respiratory effort Auscultation: lungs clear to auscultation bilaterally and + diminished lung sounds ((lying flat on RA)) Cardiovascular: Rate/Rhythm: regular rate and regular rhythm Extremities: + edema (trace) Gastrointestinal (Abdomen): Inspection/Auscultation: normal bowel sounds Percussion/Palpation: + abdomen tender (RUQ ) and abdomen soft; no guarding Musculoskeletal: Extremities: + abnormal strength (generalized weakness) Skin: no rashes, warm and dry + ulcer (see 02/24 photo which I reviewed) Neurologic: anthony, fluent speech, no tremor Genitourinary: roldan Results & Data ([facility]) Vital Signs (Past 12 Hours) Vital Signs Temp Pulse Resp BP Pulse Ox 02/25/21 08:06 36.9 C 63 18 145/69 H 96 Laboratory Results 02/25/21 06:44 02/25/21 06:44
[2021-02-25] MEDS: ONDANSETRON INJ 2 MG/ML 2 ML VIAL IV PRN (18:35)
[2021-02-25] MEDS: TERAZOSIN HCL 1 MG CAP PO SCH (20:27)
[2021-02-25] MEDS: clonazePAM 1 MG TAB PO SCH (20:27)
[2021-02-26] MEDS: HEPARIN SOD 5,000 UNIT/0.5 ML VIAL SQ SCH ×3 (05:55→20:56)
[2021-02-26 06:23] LABS: Hemoglobin 8.6 g/dL (12.0-16.0); Mean Corpuscular Hgb Conc 31.9 g/dL (32-36); Mean Corpuscular Volume 94.1 fL (80-100); Mean Platelet Volume 9.7 fL (7.4-10.4); Platelet Count 231 K/uL (130-400); RDW Coefficient of Variation 14.4 % (11.5-14.5); RDW Standard Deviation 49.5 fL (36.4-46.3); Red Blood Count 2.87 M/uL (4.2-5.4); White Blood Count 6.81 K/uL (4.8-10.8)
[2021-02-26 06:52] LABS: BUN Creatinine Ratio 15.3 (10-20); Calcium 8.3 mg/dl (8.5-10.1); Creatinine Clr Calc Pharmacy 44.9 ml/min; Est GFR (African American) 50.2 ml/min; Est GFR (Non-African American) 43.3 ml/min; Potassium 4.1 mmol/L (3.5-5.1)
[2021-02-26] MEDS: TOPIRAMATE 25 MG TAB PO SCH ×2 (08:23→20:05)
[2021-02-26] MEDS: ASPIRIN 81 MG ECTAB PO SCH (08:24)
[2021-02-26] MEDS: PANTOprazole 40 MG TAB PO SCH (08:24)
[2021-02-26] MEDS: amLODIPine BESYLATE 5 MG TAB PO SCH (08:24)
[2021-02-26] MEDS: GABAPENTIN 100 MG CAP PO SCH (08:25)
[2021-02-26] MEDS: SERTRALINE HCL 50 MG TABLET PO SCH (08:25)
[2021-02-26] MEDS: FAMOTIDINE 20 MG TAB PO SCH (08:25)
[2021-02-26] MEDS: hydrALAZINE TAB 50 MG TAB PO SCH ×3 (08:26→20:09)
[2021-02-26] MEDS: ISOSORBIDE MONO EXTENDED REL 60 MG TABCR PO SCH (08:26)
[2021-02-26] MEDS: carvediloL 6.25 MG TAB PO SCH ×2 (08:27→20:09)
[2021-02-26] MEDS: ONDANSETRON INJ 2 MG/ML 2 ML VIAL IV PRN ×2 (08:31→21:01)
--- NOTE | 2021-02-26 09:25 | Hospitalist Progress Note ---
Date of Service February 26, 2021 Assessment & Plan (1) Acute UTI: Continued urinary symptoms - recently diagnosed with Enterobacter UTI, initially treated with IV Zosyn, then changed to Cipro - E Coli grew out on UA S to Rocephin, Abx deescalated - ID eval ordered - Was not compliant c Abx at home, hence reason for readmission - WBCs are normal now (2) Acute kidney injury superimposed on CKD: Creatinine at discharge on 02/16/21 was 1.65, 6.00 on admission, Cr still trending down, Renal on case. - Off IVF - HOLD Lasix - Nephrology on case - Griffin cath - Monitor Is and Os (3) Fall: Per EMS and pt, multiple falls at home this week since being discharged due to ongoing weakness - PT/OT - Case management to assist with discharge planning, needs Placement - Fall precautions (4) Stage III pressure ulcer: Has been following with wound care outpatient - wound care (5) CHF (congestive heart failure): CXR concerning for potential pulmonary edema but lungs clear on exam. Holding diuretics in the setting of MAGGIE. Will continue to monitor closely but appears to be close to baseline at present. Not hypoxic in the ED. (6) GERD (gastroesophageal reflux disease): - Continue outpatient famotidine and PPI (7) Hypertension: Holding Lisinopril and Lasix due to MAGGIE. Continue other home meds but dosing renally adjusted when appropriate. May need to titrate regimen during admission (8) Insulin dependent diabetes mellitus: - Diabetic diet - Accu checks ACHS - Resume outpatient Lantus as half dose initially - unclear how compliant pt has been with insulin regimen - Insulin sliding scale - pharm for glycemic management DVT Prophylaxis: heparin subQ Code status: full code Labs checked-SNF on DC, Wants to go home, but will bounce back, OOA on case ROS-No Headache, No Visual Changes, No Nausea, No Vomiting, No Fever, No Chills, No Neck Pain or Stiffness, No Chest Pain, No Palpitations, No SOB, No MUÑOZ, No Cough, No Sputum, No Wheezing, No Abdominal Pain, No Diarrhea, No Hematemesis, No Hemoptysis, No Unexpected Weight Loss, No Flank pain, No Melena, No Hematochezia, No Frequency, No Urgency, No Burning, No Hematuria, No Rashes, No Diaphoresis. Appetite is Normal, +weakness Physical Exam Gen-AAO x 3, NAD, Afebrile, obese Head-NCAT, EOMI, PERRLA, Anicteric Sclera, No Posterior Pharyngeal Erythema Neck-Supple, No JVD, No Thyromegaly, No Masses, No LAD, No Bruits Lungs-Clear to Auscultation Bilaterally, No Rales, No Rhonchi, No Wheezing, No Crepitus Chest-No S4, +S1, +S2, No S3, No Murmurs, No Rubs, No Gallops, No Ectopy Abdomen-Soft, Bowel Sounds Present, Non Tender, Non Distended, No Hepatomegaly, No Splenomegaly, No Palpable Masses, No Rebound, No Rigidity, No Guarding Musculoskeletal-Full Range of Motion Bilaterally, No CVAT Extremities-No Cyanosis, No Clubbing, Mild Edema Nuero-Cranial Nerves II-XII grossly intact, Motor WNL, DTRs WNL, Strength WNL, Non Focal Psych-Normal Mood Admission and Anticipated Discharge Date Admission Date: February 21, 2021 Results & Data Results & Data ([facility]) Vital Signs (Past 12 Hours) Vital Signs Temp Pulse Resp BP Pulse Ox 02/26/21 07:48 36.9 C 70 18 151/73 H 95 02/25/21 22:39 37.0 C 58 L 18 122/66 94 (1) Fall Encounter type: initial encounter Qualified Code(s): W19.XXXA - Unspecified fall, initial encounter
--- NOTE | 2021-02-26 09:29 | Pharmacy Report ---
Pharmacy Glycemic Short Note 2 - Date of Service February 26, 2021 - Glycemic Short BSG Results (Last 24 hours): 02/25/21 02/25/21 02/25/21 12:18 17:15 20:29 Glucose POC Glucose 160 H 158 H 115 H 02/26/21 02/26/21 05:46 08:13 Glucose 94 POC Glucose 111 H OUTPATIENT ANTIDIABETIC REGIMEN: * Lantus 20 units SC BID * Humalog 10 units SC TIDM - hold if BSG <160 * A1c 7.5% 02/14/21 ASSESSMENT: 02/26: * Mckenna received a total of 22 units of insulin yesterday * 12 units basal + 10 units bolus * BSGs were controlled: [id number] mg/dL * Fasting BSG was controlled this morning at 111 mg/dL * No changes in insulin regimen today PLAN FOR INPATIENT GLYCEMIC CONTROL: * Basal insulin - no change * Lantus 6-10 units SC BID * 6 units for BSG less than 140 mg/dL; 8 units for BSG 140-180 mg/dL; 10 units for BSG greater than 180 mg/dL * Bolus insulin - no change * NovoLog per scale ACHS or Q6hrs while NPO * Goal Range: Low 120 mg/dL - High 160 mg/dL * Correction Factor: 30 mg/dL/unit * Nutritional / Prandial insulin per carb ratio of 1 unit per 12 grams CHO consumed PLAN FOR DISCHARGE: * HbA1c was 7.5% on 02/14/21 which has increased from 6.9% in November 2020. Given patient's age and comorbidities, a realistic HbA1c goal would be less than 8%. * Therefore, would consider patient at goal and recommend continuing outpatient insulin regimen upon discharge.
[2021-02-26] MEDS: INSULIN GLARGINE SOLOSTAR 100 UNITS/ML 3 ML PEN SC SCH ×2 (09:48→20:56)
[2021-02-26] MEDS: INSULIN ASPART 100 UNITS/ML 3 ML PEN SC SCH ×4 (09:49→20:57)
[2021-02-26] MEDS: FLUTICASONE PROPIONATE NA SPR 16 GM BTL SCH (09:50)
--- NOTE | 2021-02-26 12:47 | Nephrology Progress Note ---
Date of Service February 26, 2021 Assessment & Plan (1) Acute kidney injury superimposed on CKD: prerenal in the second setting of poor oral intake and ongoing cystitis after nonadherence to abtx > markedly improved today and back to or better than baseline 1.4-1.5 -continue to hold lisinopril and furosemide and potassium supplements today, then as below -IV contrast only if lifesaving -Daily BMP -defer to primary service about roldan or not for now BP has been acceptable though higher, continue on the present combination of amlodipine, coreg, terazosin, hydralazine. Will sign off; d/c recs below (d/c summary not updated; none of these orders entered yet) >starting tomorrow if labs ok, resume 10 mg daily lisinopril and 40 mg lasix on MWF ONLY once daily >labs daily while in house; at d/c my office will order weekly bmp and weekly urine tests x 4 >she should keep f/u appt w/ me for 04/28/21 (2) Acute UTI: recurrent UTI > this time w/ E coli sensitive to ceftriaxone; pt w/ recent Enterobacter UTI as well; ID agrees w/ current abtx, for cefdinir po for 7- 10 days of tx Admission and Anticipated Discharge Date Admission Date: February 21, 2021 Subjective seen on rounds at 1445 approx; c/o being weak and "sore hiney"; but also re fusing rehab, wants to see her sisters Review of Systems Review of Systems: All systems reviewed & are unremarkable except as noted in Subjective Physical Exam Constitutional: well developed, + obese and + frail appearing; no acute distr ess Eyes: EOM intact bilaterally ENMT: Ears: no external ear abnormality Nose: no external nose abnormality Mouth: + dry oral mucous membranes Neck: no nuchal rigidity Respiratory: normal respiratory effort Auscultation: lungs clear to auscultation bilaterally and + diminished lung sounds ((lying flat on RA)) Cardiovascular: Rate/Rhythm: regular rate and regular rhythm Extremities: + edema (trace) Gastrointestinal (Abdomen): Inspection/Auscultation: normal bowel sounds Percussion/Palpation: abdomen soft; abdomen nontender and no guarding Musculoskeletal: Extremities: + abnormal strength (generalized weakness) Skin: no rashes, warm and dry + ulcer (see 02/24 photo which I reviewed) Genitourinary: roldan w/ ample urine Results & Data ([facility]) Vital Signs (Past 12 Hours) Vital Signs Temp Pulse Resp BP Pulse Ox 02/26/21 07:48 36.9 C 70 18 151/73 H 95 Laboratory Results 02/26/21 05:46 02/26/21 05:46
[2021-02-26] MEDS: cefTRIAXone SODIUM 2,000 MG in DEXTROSE 5% 50 ML IV SCH (12:57)
[2021-02-26] MEDS: oxyCODONE/ACETAMINOPHEN 5mg/325mg TAB PO PRN (17:59)
[2021-02-26] MEDS: TERAZOSIN HCL 1 MG CAP PO SCH (20:09)
[2021-02-26] MEDS: clonazePAM 1 MG TAB PO SCH (20:13)
[2021-02-27] MEDS: HEPARIN SOD 5,000 UNIT/0.5 ML VIAL SQ SCH ×3 (05:50→20:02)
[2021-02-27 07:05] LABS: Hemoglobin 8.7 g/dL (12.0-16.0); Mean Corpuscular Hemoglobin 29.6 pg (25-34); Mean Corpuscular Hgb Conc 32.2 g/dL (32-36); Mean Corpuscular Volume 91.8 fL (80-100); Mean Platelet Volume 9.3 fL (7.4-10.4); Platelet Count 228 K/uL (130-400); RDW Coefficient of Variation 14.4 % (11.5-14.5); RDW Standard Deviation 48.4 fL (36.4-46.3); Red Blood Count 2.94 M/uL (4.2-5.4); White Blood Count 7.12 K/uL (4.8-10.8)
[2021-02-27 07:37] LABS: BUN Creatinine Ratio 13.3 (10-20); Calcium 8.3 mg/dl (8.5-10.1); Creatinine Clr Calc Pharmacy 47.6 ml/min; Est GFR (African American) 53.9 ml/min; Est GFR (Non-African American) 46.5 ml/min; Potassium 4.2 mmol/L (3.5-5.1)
[2021-02-27] MEDS: amLODIPine BESYLATE 5 MG TAB PO SCH (08:19)
[2021-02-27] MEDS: carvediloL 6.25 MG TAB PO SCH ×2 (08:20→20:02)
[2021-02-27] MEDS: hydrALAZINE TAB 50 MG TAB PO SCH ×3 (08:20→20:02)
[2021-02-27] MEDS: TOPIRAMATE 25 MG TAB PO SCH ×2 (08:20→20:01)
[2021-02-27] MEDS: GABAPENTIN 100 MG CAP PO SCH (08:21)
[2021-02-27] MEDS: PANTOprazole 40 MG TAB PO SCH (08:21)
[2021-02-27] MEDS: FAMOTIDINE 20 MG TAB PO SCH (08:22)
[2021-02-27] MEDS: ASPIRIN 81 MG ECTAB PO SCH (08:22)
[2021-02-27] MEDS: SERTRALINE HCL 50 MG TABLET PO SCH (08:22)
[2021-02-27] MEDS: ISOSORBIDE MONO EXTENDED REL 60 MG TABCR PO SCH (08:22)
[2021-02-27] MEDS: FLUTICASONE PROPIONATE NA SPR 16 GM BTL SCH (08:23)
[2021-02-27] MEDS: ONDANSETRON INJ 2 MG/ML 2 ML VIAL IV PRN ×2 (08:24→12:30)
--- NOTE | 2021-02-27 09:00 | Hospitalist Progress Note ---
Date of Service February 27, 2021 Assessment & Plan (1) Acute UTI: Continued urinary symptoms - recently diagnosed with Enterobacter UTI, initially treated with IV Zosyn, then changed to Cipro - E Coli grew out on UA S to Rocephin, Abx deescalated - ID rec Cefdinir on DC - Was not compliant c Abx at home, hence reason for readmission - WBCs are normal now (2) Acute kidney injury superimposed on CKD: Creatinine at discharge on 02/16/21 was 1.65, 6.00 on admission, Cr still trending down, Renal on case. - Off IVF - HOLD Lasix - Nephrology on case - Griffin cath - Monitor Is and Os (3) Fall: Per EMS and pt, multiple falls at home this week since being discharged due to ongoing weakness - PT/OT - Case management to assist with discharge planning, needs Placement - Fall precautions (4) Stage III pressure ulcer: Has been following with wound care outpatient - wound care (5) CHF (congestive heart failure): CXR concerning for potential pulmonary edema but lungs clear on exam. Holding diuretics in the setting of MAGGIE. Will continue to monitor closely but appears to be close to baseline at present. Not hypoxic in the ED. (6) GERD (gastroesophageal reflux disease): - Continue outpatient famotidine and PPI (7) Hypertension: Holding Lisinopril and Lasix due to MAGGIE. Continue other home meds but dosing renally adjusted when appropriate. May need to titrate regimen during admission (8) Insulin dependent diabetes mellitus: - Diabetic diet - Accu checks ACHS - Resume outpatient Lantus as half dose initially - unclear how compliant pt has been with insulin regimen - Insulin sliding scale - pharm for glycemic management DVT Prophylaxis: heparin subQ Code status: full code Labs checked-SNF on DC, Wants to go home, but will bounce back, OOA on case, She will d/w family today ROS-No Headache, No Visual Changes, No Nausea, No Vomiting, No Fever, No Chills, No Neck Pain or Stiffness, No Chest Pain, No Palpitations, No SOB, No MUÑOZ, No Cough, No Sputum, No Wheezing, No Abdominal Pain, No Diarrhea, No Hematemesis, No Hemoptysis, No Unexpected Weight Loss, No Flank pain, No Melena, No Hematochezia, No Frequency, No Urgency, No Burning, No Hematuria, No Rashes, No Diaphoresis. Appetite is Normal, +weakness Physical Exam Gen-AAO x 3, NAD, Afebrile, obese Head-NCAT, EOMI, PERRLA, Anicteric Sclera, No Posterior Pharyngeal Erythema Neck-Supple, No JVD, No Thyromegaly, No Masses, No LAD, No Bruits Lungs-Clear to Auscultation Bilaterally, No Rales, No Rhonchi, No Wheezing, No Crepitus Chest-No S4, +S1, +S2, No S3, No Murmurs, No Rubs, No Gallops, No Ectopy Abdomen-Soft, Bowel Sounds Present, Non Tender, Non Distended, No Hepatomegaly, No Splenomegaly, No Palpable Masses, No Rebound, No Rigidity, No Guarding Musculoskeletal-Full Range of Motion Bilaterally, No CVAT Extremities-No Cyanosis, No Clubbing, Mild Edema Nuero-Cranial Nerves II-XII grossly intact, Motor WNL, DTRs WNL, Strength WNL, Non Focal Psych-Normal Mood Admission and Anticipated Discharge Date Admission Date: February 21, 2021 Results & Data Results & Data ([facility]) Vital Signs (Past 12 Hours) Vital Signs Temp Pulse Pulse Resp BP Pulse Ox 02/27/21 07:48 37.4 C 63 20 167/71 H 96 02/26/21 23:05 36.7 C 62 18 128/65 94 (1) Fall Encounter type: initial encounter Qualified Code(s): W19.XXXA - Unspecified fall, initial encounter
[2021-02-27] MEDS: INSULIN ASPART 100 UNITS/ML 3 ML PEN SC SCH ×4 (09:47→21:41)
[2021-02-27] MEDS: INSULIN GLARGINE SOLOSTAR 100 UNITS/ML 3 ML PEN SC SCH ×2 (09:49→21:40)
--- NOTE | 2021-02-27 10:24 | Pharmacy Report ---
Pharmacy Glycemic Short Note 2 - Date of Service February 27, 2021 - Glycemic Short BSG Results (Last 24 hours): 02/26/21 02/26/21 02/26/21 12:11 16:56 20:22 Glucose POC Glucose 169 H 107 H 105 H 02/27/21 02/27/21 06:42 08:02 Glucose 94 POC Glucose 116 H OUTPATIENT ANTIDIABETIC REGIMEN: * Lantus 20 units SC BID * Humalog 10 units SC TIDM - hold if BSG <160 * A1c 7.5% 02/14/21 ASSESSMENT: 02/27: * Mckenna received a total of 21 units of insulin yesterday * 12 units basal + 9 units bolus * BSGs were controlled yesterday: [id number] mg/dL * Fasting BSG well controlled again today at 116 mg/dL * No changes in insulin regimen today 02/26: * Mceknna received a total of 22 units of insulin yesterday * 12 units basal + 10 units bolus * BSGs were controlled: [id number] mg/dL * Fasting BSG was controlled this morning at 111 mg/dL * No changes in insulin regimen today PLAN FOR INPATIENT GLYCEMIC CONTROL: * Basal insulin - no change * Lantus 6-10 units SC BID * 6 units for BSG less than 140 mg/dL; 8 units for BSG 140-180 mg/dL; 10 units for BSG greater than 180 mg/dL * Bolus insulin - no change * NovoLog per scale ACHS or Q6hrs while NPO * Goal Range: Low 120 mg/dL - High 160 mg/dL * Correction Factor: 30 mg/dL/unit * Nutritional / Prandial insulin per carb ratio of 1 unit per 12 grams CHO consumed PLAN FOR DISCHARGE: * HbA1c was 7.5% on 02/14/21 which has increased from 6.9% in November 2020. Given patient's age and comorbidities, a realistic HbA1c goal would be less than 8%. * Therefore, would consider patient at goal and recommend continuing outpatient insulin regimen upon discharge.
[2021-02-27] MEDS: cefTRIAXone SODIUM 2,000 MG in DEXTROSE 5% 50 ML IV SCH (14:34)
[2021-02-27] MEDS: oxyCODONE/ACETAMINOPHEN 5mg/325mg TAB PO PRN ×2 (14:44→20:06)
[2021-02-27] MEDS: TERAZOSIN HCL 1 MG CAP PO SCH (20:01)
[2021-02-27] MEDS: clonazePAM 1 MG TAB PO SCH (20:06)
[2021-02-28] MEDS: HEPARIN SOD 5,000 UNIT/0.5 ML VIAL SQ SCH ×3 (05:06→20:20)
[2021-02-28 07:57] LABS: Hematocrit (blood only) 29.2 % (37-47); Hemoglobin 9.3 g/dL (12.0-16.0); Mean Corpuscular Hemoglobin 29.2 pg (25-34); Mean Corpuscular Hgb Conc 31.8 g/dL (32-36); Mean Corpuscular Volume 91.5 fL (80-100); Mean Platelet Volume 9.4 fL (7.4-10.4); Platelet Count 236 K/uL (130-400); RDW Coefficient of Variation 14.3 % (11.5-14.5); RDW Standard Deviation 47.6 fL (36.4-46.3); Red Blood Count 3.19 M/uL (4.2-5.4); White Blood Count 6.66 K/uL (4.8-10.8)
[2021-02-28] MEDS: SERTRALINE HCL 50 MG TABLET PO SCH (08:04)
[2021-02-28] MEDS: FAMOTIDINE 20 MG TAB PO SCH (08:05)
[2021-02-28] MEDS: GABAPENTIN 100 MG CAP PO SCH (08:05)
[2021-02-28] MEDS: ISOSORBIDE MONO EXTENDED REL 60 MG TABCR PO SCH (08:06)
[2021-02-28] MEDS: amLODIPine BESYLATE 5 MG TAB PO SCH (08:07)
[2021-02-28] MEDS: PANTOprazole 40 MG TAB PO SCH (08:07)
[2021-02-28] MEDS: hydrALAZINE TAB 50 MG TAB PO SCH ×3 (08:08→20:20)
[2021-02-28] MEDS: TOPIRAMATE 25 MG TAB PO SCH ×2 (08:08→20:21)
[2021-02-28] MEDS: carvediloL 6.25 MG TAB PO SCH ×2 (08:08→20:19)
[2021-02-28] MEDS: ASPIRIN 81 MG ECTAB PO SCH (08:08)
[2021-02-28] MEDS: FLUTICASONE PROPIONATE NA SPR 16 GM BTL SCH (08:09)
[2021-02-28] MEDS: oxyCODONE/ACETAMINOPHEN 5mg/325mg TAB PO PRN ×2 (08:11→22:41)
[2021-02-28] MEDS: ONDANSETRON INJ 2 MG/ML 2 ML VIAL IV PRN ×3 (08:12→22:41)
[2021-02-28 08:14] LABS: BUN Creatinine Ratio 9.4 (10-20); Calcium 8.6 mg/dl (8.5-10.1); Creatinine Clr Calc Pharmacy 45.6 ml/min; Est GFR (African American) 51.2 ml/min; Est GFR (Non-African American) 44.2 ml/min; Potassium 4.2 mmol/L (3.5-5.1)
[2021-02-28] MEDS: INSULIN ASPART 100 UNITS/ML 3 ML PEN SC SCH ×4 (09:13→21:21)
[2021-02-28] MEDS: INSULIN GLARGINE SOLOSTAR 100 UNITS/ML 3 ML PEN SC SCH ×2 (09:30→21:20)
--- NOTE | 2021-02-28 18:30 | Hospitalist Progress Note ---
Date of Service February 28, 2021 Assessment & Plan (1) Acute UTI: Persistent symptoms with repeat reinfection. Completed 7 day course of abx per ID recs. Removed roldan. Asymptomatic at this time. (2) Acute kidney injury superimposed on CKD: Creatinine was 6 on admission in setting of dehydration (nausea, vomiting and diarrhea after returning home) and repeat infection. Held Lasix until now. Per nephro, ok to restart this and low dose lisinopril. Follow BMP and blood pressure. (3) Fall: recurrent falls 2/2 ongoing weakness and physical deconditioning. This was made worse by the pandemic per her report today. Rehab trial with SNF- pending auth after the weekend. Lives at home with her sisters and states that someone is always there with her, however, she was "bull-headed" and didn't call out for help when she fell prior to this admission. (4) Stage III pressure ulcer: Cont inpatient and outpatient wound care and pain meds as needed. (5) CHF (congestive heart failure): chronic, appears euvolemic at this point. Restarted diuretics (6) Hypertension: Restart lisinopril per nephro. Cont amlodipine and coreg. Furosemide restarted MWF. Cont hydralazine (7) Insulin dependent diabetes mellitus: At goal. cont glargine and novolog for carb coverage and correction factor. (8) DVT prophylaxis: Heparin Full Code Dispo-to rehab after the weekend Nallely Iyer DO [facility] Hospitalist Admission and Anticipated Discharge Date Admission Date: February 21, 2021 Subjective 75 yo F admitted with weakness, UTI, and acute kidney injury. She reports feeling improved generally Antibiotics have been completed Removed roldan catheter today Purwick discussed as an option Encouraged to ambulate with assistance-awaiting placement at SNF Some abdominal upset that is nonspecific after dinner consisting of cream of chicken soup. Review of Systems Review of Systems: All systems reviewed & are unremarkable except as noted in Subjective Physical Exam Physical Exam: CONSTITUTIONAL: morbidly obese, vitals as above, generally well-appearing, NAD EYES: normal conjunctivae, no scleral icterus ENT: external ear and nose normal, MMM RESPIRATORY: clear to auscultation bilaterally, no crackles, rales or wheezes, normal respiratory effort CARDIOVASCULAR: regular rate and rhythm, S1 and 2 heard without murmurs, gallops or rubs, no peripheral edema GASTROINTESTINAL: soft, nontender, nondistended. MUSCULOSKELETAL: generalized weakness. SKIN: warm and dry, stage III gluteal pressure ulcer, and on buttocks not able to be visualized per patient's weakness and inability to maneuver. NEUROLOGIC: CN 2-12 grossly intact, somnolent but arousable, normal speech, no tremor PSYCHIATRIC: alert cooperative and oriented to person, place and time. Results & Data Results & Data ([facility]) Vital Signs (Past 12 Hours) Vital Signs Temp Pulse Resp BP BP Pulse Ox 02/28/21 16:37 36.8 C 65 18 144/66 H 96 02/28/21 07:34 36.7 C 69 18 152/69 H 95 Laboratory Results Short CBC 02/28/21 Range/Units 07:47 WBC 6.66 (4.8-10.8) K/uL Hgb 9.3 L (12.0-16.0) g/dL Hct 29.2 L (37-47) % Plt Count 236 (130-400) K/uL BMP 02/28/21 07:47 Sodium 142 Potassium 4.2 Chloride 111 H Carbon Dioxide 25 BUN 11 Creatinine 1.20 Glucose 107 H Calcium 8.6 Medications Administered Current Inpatient Medications Amlodipine Besylate (Amlodipine Besylate 5 Mg Tab) 10 mg PO QAM [facility] Stop: 03/24/21 08:59 Last Admin: 02/28/21 08:07 Dose: 10 mg Documented by: Aspirin (Aspirin 81 Mg Ectab) 81 mg PO DAILY [facility] Stop: 03/24/21 08:59 Last Admin: 02/28/21 08:08 Dose: 81 mg Documented by: Baclofen (Baclofen 10 Mg Tab) 5 mg PO BID PRN PRN Reason: Pain Stop: 03/23/21 20:55 Carvedilol (Carvedilol 6.25 Mg Tab) 6.25 mg PO AMHS [facility] Stop: 03/23/21 20:59 Last Admin: 02/28/21 08:08 Dose: 6.25 mg Documented by: Clonazepam (Clonazepam 1 Mg Tab) 1 mg PO HS [facility] Stop: 03/23/21 20:59 Last Admin: 02/27/21 20:06 Dose: 1 mg Documented by: Dextrose (Dextrose 50% 50 Ml Syringe) 25 - 50 ml IV UD PRN; Protocol PRN Reason: Hypoglycemia Protocol Stop: 03/23/21 20:55 Famotidine (Famotidine 20 Mg Tab) 20 mg PO DAILY [facility] Stop: 03/24/21 08:59 Last Admin: 02/28/21 08:05 Dose: 20 mg Documented by: Fluticasone Propionate (Fluticasone Propionate Na Spr 16 Gm Btl) 2 sprays NA QAM [facility] Stop: 03/24/21 08:59 Last Admin: 02/28/21 08:09 Dose: 2 sprays Documented by: Gabapentin (Gabapentin 100 Mg Cap) 100 mg PO DAILY [facility] Stop: 03/24/21 08:59 Last Admin: 02/28/21 08:05 Dose: 100 mg Documented by: Glucagon (Glucagon For Inj 1 Mg Vial) 1 mg SQ UD PRN; Protocol PRN Reason: Hypoglycemia Protocol Stop: 03/23/21 20:55 Glucose (Glucose 10 Tabs/Tube) 4 - 8 tabs PO UD PRN; Protocol PRN Reason: Hypoglycemia Protocol Stop: 03/23/21 20:55 Glucose (Glucose 40% Gel 15 Gm Tube) 15 - 30 gm PO UD PRN; Protocol PRN Reason: Hypoglycemia Protocol Stop: 03/23/21 20:55 Heparin Sodium (Porcine) (Heparin Sod 5,000 Unit/0.5 Ml Vial) 5,000 units SQ Q8 [facility] Stop: 03/23/21 21:59 Last Admin: 02/28/21 13:21 Dose: 5,000 units Documented by: Hydralazine HCl (Hydralazine Tab 50 Mg Tab) 50 mg PO TID [facility] Stop: 03/23/21 20:59 Last Admin: 02/28/21 13:22 Dose: 50 mg Documented by: Insulin Aspart (Insulin Aspart 100 Units/Ml 3 Ml Pen) 0 units SC ACHS [facility]; Protocol Stop: 03/23/21 21:44 Last Admin: 02/28/21 17:58 Dose: 3 units Documented by: Insulin Glargine (Insulin Glargine Solostar 100 Units/Ml 3 Ml Pen) 0 units SC BID [facility]; Protocol Stop: 03/24/21 08:59 Last Admin: 02/28/21 09:30 Dose: 6 units Documented by: Isosorbide Mononitrate (Isosorbide [place] Extended Rel 60 Mg Tabcr) 120 mg PO QAM [facility] Stop: 03/24/21 08:59 Last Admin: 02/28/21 08:06 Dose: 120 mg Documented by: Miscellaneous (Carbohydrates For Hypoglycemia ) 15 - 30 gm PO UD PRN PRN Reason: Hypoglycemia Protocol Stop: 03/23/21 20:55 Miscellaneous Information (Pharmacy Glycemic Mgmt Consult) 1 ea N/A UD PRN; Protocol PRN Reason: Consult Stop: 03/23/21 21:41 Nystatin (Nystatin Powder 15gm Btl) 1 appln EXT TID PRN PRN Reason: Skin Irritation Stop: 03/23/21 20:55 Ondansetron HCl (Ondansetron Inj 2 Mg/Ml 2 Ml Vial) 4 mg IV Q4H PRN PRN Reason: Nausea Stop: 03/26/21 18:20 Last Admin: 02/28/21 13:56 Dose: 4 mg Documented by: Oxycodone/Acetaminophen (Oxycodone/Acetaminophen 5mg/325mg Tab) 1 tab PO TID PRN PRN Reason: Pain Stop: 03/07/21 20:55 Last Admin: 02/28/21 08:11 Dose: 1 tab Documented by: Pantoprazole Sodium (Pantoprazole 40 Mg Tab) 40 mg PO QAM [facility] Stop: 03/24/21 08:59 Last Admin: 02/28/21 08:07 Dose: 40 mg Documented by: Petrolatum (Butt Paste (Zinc Oxide 16%) 171 Appln/57 Gm Jar) 1 appln EXT DAILY PRN PRN Reason: BUTTOCK EXCORIATION Stop: 03/23/21 21:54 Sertraline HCl (Sertraline Hcl 50 Mg Tablet) 50 mg PO QAM [facility] Stop: 03/24/21 08:59 Last Admin: 02/28/21 08:04 Dose: 50 mg Documented by: Terazosin HCl (Terazosin Hcl 1 Mg Cap) 1 mg PO HS [facility] Stop: 03/23/21 20:59 Last Admin: 02/27/21 20:01 Dose: 1 mg Documented by: Topiramate (Topiramate 25 Mg Tab) 12.5 mg PO BID [facility] Stop: 03/23/21 20:59 Last Admin: 02/28/21 08:08 Dose: 12.5 mg Documented by: (1) Fall Encounter type: initial encounter Qualified Code(s): W19.XXXA - Unspecified fall, initial encounter
[2021-02-28] MEDS: clonazePAM 1 MG TAB PO SCH (20:19)
[2021-02-28] MEDS: TERAZOSIN HCL 1 MG CAP PO SCH (20:21)
[2021-02-28] MEDS: ROSUVASTATIN CALCIUM 20 MG TAB PO SCH (21:21)
[2021-03-01] MEDS: HEPARIN SOD 5,000 UNIT/0.5 ML VIAL SQ SCH ×3 (05:29→20:45)
[2021-03-01 06:22] LABS: BUN Creatinine Ratio 9.2 (10-20); Calcium 8.5 mg/dl (8.5-10.1); Creatinine Clr Calc Pharmacy 45.2 ml/min; Est GFR (African American) 50.7 ml/min; Est GFR (Non-African American) 43.7 ml/min; Magnesium 1.8 mg/dl (1.8-2.4); Potassium 3.9 mmol/L (3.5-5.1)
[2021-03-01] MEDS: ONDANSETRON INJ 2 MG/ML 2 ML VIAL IV PRN ×2 (08:33→20:53)
[2021-03-01] MEDS: TOPIRAMATE 25 MG TAB PO SCH ×2 (08:58→20:45)
[2021-03-01] MEDS: lisinopril 10 MG TAB PO SCH (08:58)
[2021-03-01] MEDS: carvediloL 6.25 MG TAB PO SCH ×2 (08:58→20:44)
[2021-03-01] MEDS: hydrALAZINE TAB 50 MG TAB PO SCH ×3 (08:58→20:44)
[2021-03-01] MEDS: SERTRALINE HCL 50 MG TABLET PO SCH (08:59)
[2021-03-01] MEDS: PANTOprazole 40 MG TAB PO SCH (08:59)
[2021-03-01] MEDS: amLODIPine BESYLATE 5 MG TAB PO SCH (08:59)
[2021-03-01] MEDS: ASPIRIN 81 MG ECTAB PO SCH (08:59)
[2021-03-01] MEDS: FAMOTIDINE 20 MG TAB PO SCH (08:59)
[2021-03-01] MEDS: ISOSORBIDE MONO EXTENDED REL 60 MG TABCR PO SCH (08:59)
[2021-03-01] MEDS: FLUTICASONE PROPIONATE NA SPR 16 GM BTL SCH (09:00)
[2021-03-01] MEDS: GABAPENTIN 100 MG CAP PO SCH (09:00)
[2021-03-01] MEDS: INSULIN GLARGINE SOLOSTAR 100 UNITS/ML 3 ML PEN SC SCH ×2 (09:03→20:51)
[2021-03-01] MEDS: INSULIN ASPART 100 UNITS/ML 3 ML PEN SC SCH ×4 (09:03→20:50)
[2021-03-01] MEDS: oxyCODONE/ACETAMINOPHEN 5mg/325mg TAB PO PRN (15:17)
--- NOTE | 2021-03-01 19:19 | Hospitalist Progress Note ---
Date of Service March 01, 2021 Assessment & Plan (1) Acute UTI: Persistent symptoms with repeat reinfection. Completed 7 day course of abx per ID recs. Removed roldan. Asymptomatic at this time. (2) Acute kidney injury superimposed on CKD: Creatinine was 6 on admission in setting of dehydration (nausea, vomiting and diarrhea after returning home) and repeat infection. Restarted Lasix and lisinopril and doing well. Follow BMP and blood pressure. (3) Fall: recurrent falls 2/2 ongoing weakness and physical deconditioning. This was made worse by the pandemic per her report today. Rehab trial with SNF- pending auth after the weekend. Lives at home with her sisters and states that someone is always there with her, however, she was "bull-headed" and didn't call out for help when she fell prior to this admission. Tough situation and she is on the fence. Family is very connected. (4) Stage III pressure ulcer: Cont inpatient and outpatient wound care and pain meds as needed. (5) CHF (congestive heart failure): chronic, appears euvolemic at this point. Restarted diuretics (6) Hypertension: Restart lisinopril per nephro. Cont amlodipine and coreg. Furosemide restarted MWF. Cont hydralazine (7) Insulin dependent diabetes mellitus: At goal. cont glargine and novolog for carb coverage and correction factor. 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 Chronic abdominal pain intermittent. Encouraged to eat small frequent meals and avoid creamy or acidic foods that may trigger her stomach to be upset. (8) DVT prophylaxis: Heparin Full Code Dispo-to rehab/SNF after the Nallely Iyer DO [facility] Hospitalist Admission and Anticipated Discharge Date Admission Date: February 21, 2021 Subjective 75 yo F admitted with weakness, UTI, and acute kidney injury. She reports feeling improved generally Antibiotics have been completed Removed roldan catheter today Purwick discussed as an option Encouraged to ambulate with assistance-awaiting placement at SNF Some abdominal upset that is nonspecific after dinner consisting of cream of chicken soup. Review of Systems Review of Systems: All systems reviewed & are unremarkable except as noted in Subjective Physical Exam Physical Exam: CONSTITUTIONAL: morbidly obese, vitals as above, generally well-appearing, NAD EYES: normal conjunctivae, no scleral icterus ENT: external ear and nose normal, MMM RESPIRATORY: clear to auscultation bilaterally, no crackles, rales or wheezes, normal respiratory effort CARDIOVASCULAR: regular rate and rhythm, S1 and 2 heard without murmurs, gallops or rubs, no peripheral edema GASTROINTESTINAL: soft, nontender, nondistended. MUSCULOSKELETAL: generalized weakness. SKIN: warm and dry, stage III gluteal pressure ulcer, and on buttocks not able to be visualized per patient's weakness and inability to maneuver. NEUROLOGIC: CN 2-12 grossly intact, somnolent but arousable, normal speech, no tremor PSYCHIATRIC: alert cooperative and oriented to person, place and time. Results & Data Results & Data ([facility]) Vital Signs (Past 12 Hours) Vital Signs Temp Pulse Resp BP Pulse Ox 03/01/21 15:14 36.7 C 62 16 139/52 L 93 Laboratory Results BMP 03/01/21 05:44 Sodium 143 Potassium 3.9 Chloride 113 H Carbon Dioxide 26 BUN 11 Creatinine 1.21 H Glucose 108 H Calcium 8.5 Medications Administered Current Inpatient Medications Amlodipine Besylate (Amlodipine Besylate 5 Mg Tab) 10 mg PO QAM [facility] Stop: 03/24/21 08:59 Last Admin: 03/01/21 08:59 Dose: 10 mg Documented by: Aspirin (Aspirin 81 Mg Ectab) 81 mg PO DAILY [facility] Stop: 03/24/21 08:59 Last Admin: 03/01/21 08:59 Dose: 81 mg Documented by: Baclofen (Baclofen 10 Mg Tab) 5 mg PO BID PRN PRN Reason: Pain Stop: 03/23/21 20:55 Carvedilol (Carvedilol 6.25 Mg Tab) 6.25 mg PO AMHS [facility] Stop: 03/23/21 20:59 Last Admin: 03/01/21 08:58 Dose: 6.25 mg Documented by: Clonazepam (Clonazepam 1 Mg Tab) 1 mg PO HS [facility] Stop: 03/23/21 20:59 Last Admin: 02/28/21 20:19 Dose: 1 mg Documented by: Dextrose (Dextrose 50% 50 Ml Syringe) 25 - 50 ml IV UD PRN; Protocol PRN Reason: Hypoglycemia Protocol Stop: 03/23/21 20:55 Famotidine (Famotidine 20 Mg Tab) 20 mg PO DAILY [facility] Stop: 03/24/21 08:59 Last Admin: 03/01/21 08:59 Dose: 20 mg Documented by: Fluticasone Propionate (Fluticasone Propionate Na Spr 16 Gm Btl) 2 sprays NA QAM [facility] Stop: 03/24/21 08:59 Last Admin: 03/01/21 09:00 Dose: 2 sprays Documented by: Furosemide (Furosemide 40 Mg Tab) 40 mg PO MoWeFr@0900 [facility] Stop: 04/02/21 08:59 Gabapentin (Gabapentin 100 Mg Cap) 100 mg PO DAILY [facility] Stop: 03/24/21 08:59 Last Admin: 03/01/21 09:00 Dose: 100 mg Documented by: Glucagon (Glucagon For Inj 1 Mg Vial) 1 mg SQ UD PRN; Protocol PRN Reason: Hypoglycemia Protocol Stop: 03/23/21 20:55 Glucose (Glucose 10 Tabs/Tube) 4 - 8 tabs PO UD PRN; Protocol PRN Reason: Hypoglycemia Protocol Stop: 03/23/21 20:55 Glucose (Glucose 40% Gel 15 Gm Tube) 15 - 30 gm PO UD PRN; Protocol PRN Reason: Hypoglycemia Protocol Stop: 03/23/21 20:55 Heparin Sodium (Porcine) (Heparin Sod 5,000 Unit/0.5 Ml Vial) 5,000 units SQ Q8 [facility] Stop: 03/23/21 21:59 Last Admin: 03/01/21 15:12 Dose: 5,000 units Documented by: Hydralazine HCl (Hydralazine Tab 50 Mg Tab) 50 mg PO TID [facility] Stop: 03/23/21 20:59 Last Admin: 03/01/21 15:14 Dose: 50 mg Documented by: Insulin Aspart (Insulin Aspart 100 Units/Ml 3 Ml Pen) 0 units SC ACHS [facility]; Protocol Stop: 03/23/21 21:44 Last Admin: 03/01/21 18:15 Dose: 3 units Documented by: Insulin Glargine (Insulin Glargine Solostar 100 Units/Ml 3 Ml Pen) 0 units SC BID [facility]; Protocol Stop: 03/24/21 08:59 Last Admin: 03/01/21 09:03 Dose: 6 units Documented by: Isosorbide Mononitrate (Isosorbide [place] Extended Rel 60 Mg Tabcr) 120 mg PO QAM [facility] Stop: 03/24/21 08:59 Last Admin: 03/01/21 08:59 Dose: 120 mg Documented by: Lisinopril (Lisinopril 10 Mg Tab) 10 mg PO QAM [facility] Stop: 03/31/21 08:59 Last Admin: 03/01/21 08:58 Dose: 10 mg Documented by: Miscellaneous (Carbohydrates For Hypoglycemia ) 15 - 30 gm PO UD PRN PRN Reason: Hypoglycemia Protocol Stop: 03/23/21 20:55 Miscellaneous Information (Pharmacy Glycemic Mgmt Consult) 1 ea N/A UD PRN; Protocol PRN Reason: Consult Stop: 03/23/21 21:41 Nystatin (Nystatin Powder 15gm Btl) 1 appln EXT TID PRN PRN Reason: Skin Irritation Stop: 03/23/21 20:55 Ondansetron HCl (Ondansetron Inj 2 Mg/Ml 2 Ml Vial) 4 mg IV Q4H PRN PRN Reason: Nausea Stop: 03/26/21 18:20 Last Admin: 03/01/21 08:33 Dose: 4 mg Documented by: Oxycodone/Acetaminophen (Oxycodone/Acetaminophen 5mg/325mg Tab) 1 tab PO TID PRN PRN Reason: Pain Stop: 03/07/21 20:55 Last Admin: 03/01/21 15:17 Dose: 1 tab Documented by: Pantoprazole Sodium (Pantoprazole 40 Mg Tab) 40 mg PO QAM [facility] Stop: 03/24/21 08:59 Last Admin: 03/01/21 08:59 Dose: 40 mg Documented by: Petrolatum (Butt Paste (Zinc Oxide 16%) 171 Appln/57 Gm Jar) 1 appln EXT DAILY PRN PRN Reason: BUTTOCK EXCORIATION Stop: 03/23/21 21:54 Potassium Chloride (Potassium Chloride 10 Meq Tabcr) 10 meq PO MoWeFr@0900 [facility] Stop: 04/02/21 08:59 Rosuvastatin Calcium (Rosuvastatin Calcium 20 Mg Tab) 40 mg PO HS [facility] Stop: 03/30/21 20:59 Last Admin: 02/28/21 21:21 Dose: 40 mg Documented by: Sertraline HCl ([facility] Hcl 50 Mg Tablet) [facility] Stop: 03/24/21 08:59 Last Admin: 03/01/21 08:59 Dose: 50 mg Documented by: Terazosin HCl (Terazosin Hcl 1 Mg Cap) 1 mg PO HS [facility] Stop: 03/23/21 20:59 Last Admin: 02/28/21 20:21 Dose: 1 mg Documented by: Topiramate (Topiramate 25 Mg Tab) 12.5 mg PO BID [facility] Stop: 03/23/21 20:59 Last Admin: 03/01/21 08:58 Dose: 12.5 mg Documented by: (1) Fall Encounter type: initial encounter Qualified Code(s): W19.XXXA - Unspecified fall, initial encounter
[2021-03-01] MEDS: clonazePAM 1 MG TAB PO SCH (20:44)
[2021-03-01] MEDS: TERAZOSIN HCL 1 MG CAP PO SCH (20:45)
[2021-03-01] MEDS: ROSUVASTATIN CALCIUM 20 MG TAB PO SCH (20:45)
[2021-03-02] MEDS: oxyCODONE/ACETAMINOPHEN 5mg/325mg TAB PO PRN ×3 (03:39→21:01)
[2021-03-02] MEDS: HEPARIN SOD 5,000 UNIT/0.5 ML VIAL SQ SCH ×3 (05:41→21:02)
[2021-03-02] MEDS: SERTRALINE HCL 50 MG TABLET PO SCH (08:38)
[2021-03-02] MEDS: TOPIRAMATE 25 MG TAB PO SCH ×2 (08:38→21:02)
[2021-03-02] MEDS: carvediloL 6.25 MG TAB PO SCH ×2 (08:38→21:01)
[2021-03-02] MEDS: hydrALAZINE TAB 50 MG TAB PO SCH ×3 (08:39→21:01)
[2021-03-02] MEDS: GABAPENTIN 100 MG CAP PO SCH (08:39)
[2021-03-02] MEDS: PANTOprazole 40 MG TAB PO SCH (08:39)
[2021-03-02] MEDS: ISOSORBIDE MONO EXTENDED REL 60 MG TABCR PO SCH (08:39)
[2021-03-02] MEDS: FAMOTIDINE 20 MG TAB PO SCH (08:39)
[2021-03-02] MEDS: FLUTICASONE PROPIONATE NA SPR 16 GM BTL SCH (08:39)
[2021-03-02] MEDS: ASPIRIN 81 MG ECTAB PO SCH (08:39)
[2021-03-02] MEDS: lisinopril 10 MG TAB PO SCH (08:39)
[2021-03-02] MEDS: amLODIPine BESYLATE 5 MG TAB PO SCH (08:39)
[2021-03-02] MEDS: INSULIN GLARGINE SOLOSTAR 100 UNITS/ML 3 ML PEN SC SCH ×2 (08:45→20:58)
[2021-03-02] MEDS: INSULIN ASPART 100 UNITS/ML 3 ML PEN SC SCH ×4 (08:45→20:57)
[2021-03-02] MEDS: ONDANSETRON INJ 2 MG/ML 2 ML VIAL IV PRN ×3 (10:21→21:01)
[2021-03-02] MEDS ORDERED: TRIAMCINOLONE ACET 40 MG/ML VIAL IA ONE (11:30)
[2021-03-02] MEDS ORDERED: BUPIVACAINE/EPINEPHRINE 0.25% 1:200,000 30 ML VIAL INFIL ONE (11:30)
--- NOTE | 2021-03-02 15:46 | Hospitalist Progress Note ---
Date of Service March 02, 2021 Assessment & Plan (1) Acute UTI: Persistent symptoms with repeat reinfection. Completed 7 day course of abx per ID recs. Removed roldan. Asymptomatic at this time. (2) Acute kidney injury superimposed on CKD: Creatinine was 6 on admission in setting of dehydration (nausea, vomiting and diarrhea after returning home) and repeat infection. Held Lasix until now. Per nephjewell ok to restart this and low dose lisinopril. Follow BMP and blood pressure. (3) Fall: recurrent falls 2/2 ongoing weakness and physical deconditioning. This was made worse by the pandemic per her report today. Rehab trial with SNF- pending auth after the weekend. Lives at home with her sisters and states that someone is always there with her, however, she was "bull-headed" and didn't call out for help when she fell prior to this admission. There is concern with her ability to care for herself well without falling or injuing herself again. In general she is obese and physically deconditioned from two back to back hospital stays. She has a sacral wound that is painful and she is unable to do things such as appropriately wipe her bottom puttting her at risk for infection and discomfort. SNF appears to be the best option in the short term as a transition to home so that she can work on her movement and have additional time for this wound to heal. She lives with her elderly sisters who are also in poor health. Although they want her home, they will have limitations for assisting this patient with her current needs. (4) Stage III pressure ulcer: Cont inpatient and outpatient wound care and pain meds as needed. (5) CHF (congestive heart failure): chronic, appears euvolemic at this point. Restarted diuretics (6) Hypertension: Cont amlodipine, coreg and hydralazine. Furosemide restarted MWF. Cont hydralazine (7) Insulin dependent diabetes mellitus: At goal. cont glargine and novolog for carb coverage and correction factor. (8) DVT prophylaxis: Heparin Full Code Dispo-to rehab after the weekend DO [facility] Hospitalist Admission and Anticipated Discharge Date Admission Date: February 21, 2021 Subjective 75 yo F admitted with weakness, UTI, and acute kidney injury. She reports feeling abdominal discomfort after eating cream of mushroom soup this evening. Antibiotics have been completed Encouraged to ambulate with assistance-awaiting placement at SNF Formed stools 2-3 today Pain in wound is managed with pain medications. Review of Systems Review of Systems: All systems reviewed & are unremarkable except as noted in Subjective Physical Exam Physical Exam: CONSTITUTIONAL: morbidly obese, vitals as above, generally well-appearing, NAD EYES: normal conjunctivae, no scleral icterus ENT: external ear and nose normal, MMM RESPIRATORY: clear to auscultation bilaterally, no crackles, rales or wheezes, normal respiratory effort CARDIOVASCULAR: regular rate and rhythm, S1 and 2 heard without murmurs, gallops or rubs, no peripheral edema GASTROINTESTINAL: soft, nontender, nondistended. MUSCULOSKELETAL: generalized weakness. SKIN: warm and dry, stage III gluteal pressure ulcer, and on buttocks not able to be visualized per patient's weakness and inability to maneuver. NEUROLOGIC: CN 2-12 grossly intact, somnolent but arousable, normal speech, no tremor PSYCHIATRIC: alert cooperative and oriented to person, place and time. Results & Data Results & Data ([facility]) Vital Signs (Past 12 Hours) Vital Signs Temp Pulse Pulse Resp BP BP Pulse Ox 03/02/21 15:39 36.9 C 54 L 16 154/67 H 98 03/02/21 13:42 36.8 C 59 L 18 148/72 H 98 03/02/21 05:45 36.8 C 57 L 16 112/69 97 Medications Administered Current Inpatient Medications Amlodipine Besylate (Amlodipine Besylate 5 Mg Tab) 10 mg PO QAM [facility] Stop: 03/24/21 08:59 Last Admin: 03/02/21 08:39 Dose: 10 mg Documented by: Aspirin (Aspirin 81 Mg Ectab) 81 mg PO DAILY [facility] Stop: 03/24/21 08:59 Last Admin: 03/02/21 08:39 Dose: 81 mg Documented by: Baclofen (Baclofen 10 Mg Tab) 5 mg PO BID PRN PRN Reason: Pain Stop: 03/23/21 20:55 Last Admin: 03/02/21 08:38 Dose: 5 mg Documented by: Carvedilol (Carvedilol 6.25 Mg Tab) 6.25 mg PO AMHS [facility] Stop: 03/23/21 20:59 Last Admin: 03/02/21 08:38 Dose: Not Given Documented by: Clonazepam (Clonazepam 1 Mg Tab) 1 mg PO HS [facility] Stop: 03/23/21 20:59 Last Admin: 03/01/21 20:44 Dose: 1 mg Documented by: Dextrose (Dextrose 50% 50 Ml Syringe) 25 - 50 ml IV UD PRN; Protocol PRN Reason: Hypoglycemia Protocol Stop: 03/23/21 20:55 Famotidine (Famotidine 20 Mg Tab) 20 mg PO DAILY [facility] Stop: 03/24/21 08:59 Last Admin: 03/02/21 08:39 Dose: 20 mg Documented by: Fluticasone Propionate (Fluticasone Propionate Na Spr 16 Gm Btl) 2 sprays NA QAM [facility] Stop: 03/24/21 08:59 Last Admin: 03/02/21 08:39 Dose: 2 sprays Documented by: Furosemide (Furosemide 40 Mg Tab) 40 mg PO MoWeFr@0900 [facility] Stop: 04/02/21 08:59 Gabapentin (Gabapentin 100 Mg Cap) 100 mg PO DAILY [facility] Stop: 03/24/21 08:59 Last Admin: 03/02/21 08:39 Dose: 100 mg Documented by: Glucagon (Glucagon For Inj 1 Mg Vial) 1 mg SQ UD PRN; Protocol PRN Reason: Hypoglycemia Protocol Stop: 03/23/21 20:55 Glucose (Glucose 10 Tabs/Tube) 4 - 8 tabs PO UD PRN; Protocol PRN Reason: Hypoglycemia Protocol Stop: 03/23/21 20:55 Glucose (Glucose 40% Gel 15 Gm Tube) 15 - 30 gm PO UD PRN; Protocol PRN Reason: Hypoglycemia Protocol Stop: 03/23/21 20:55 Heparin Sodium (Porcine) (Heparin Sod 5,000 Unit/0.5 Ml Vial) 5,000 units SQ Q8 [facility] Stop: 03/23/21 21:59 Last Admin: 03/02/21 14:31 Dose: Not Given Documented by: Hydralazine HCl (Hydralazine Tab 50 Mg Tab) 50 mg PO TID [facility] Stop: 03/23/21 20:59 Last Admin: 03/02/21 13:42 Dose: 50 mg Documented by: Insulin Aspart (Insulin Aspart 100 Units/Ml 3 Ml Pen) 0 units SC ACHS [facility]; Protocol Stop: 03/23/21 21:44 Last Admin: 03/02/21 12:48 Dose: 2 units Documented by: Insulin Glargine (Insulin Glargine Solostar 100 Units/Ml 3 Ml Pen) 0 units SC BID [facility]; Protocol Stop: 03/24/21 08:59 Last Admin: 03/02/21 08:45 Dose: 6 units Documented by: Isosorbide Mononitrate (Isosorbide [place] Extended Rel 60 Mg Tabcr) 120 mg PO [facility] Stop: 03/24/21 08:59 Last Admin: 03/02/21 08:39 Dose: 120 mg Documented by: Lisinopril (Lisinopril 10 Mg Tab) 10 mg PO [facility] Stop: 03/31/21 08:59 Last Admin: 03/02/21 08:39 Dose: 10 mg Documented by: Miscellaneous (Carbohydrates For Hypoglycemia ) 15 - 30 gm PO UD PRN PRN Reason: Hypoglycemia Protocol Stop: 03/23/21 20:55 Miscellaneous Information (Pharmacy Glycemic Mgmt Consult) 1 ea N/A UD PRN; Protocol PRN Reason: Consult Stop: 03/23/21 21:41 Nystatin (Nystatin Powder 15gm Btl) 1 appln EXT TID PRN PRN Reason: Skin Irritation Stop: 03/23/21 20:55 Ondansetron HCl (Ondansetron Inj 2 Mg/Ml 2 Ml Vial) 4 mg IV Q4H PRN PRN Reason: Nausea Stop: 03/26/21 18:20 Last Admin: 03/02/21 15:34 Dose: 4 mg Documented by: Oxycodone/Acetaminophen (Oxycodone/Acetaminophen 5mg/325mg Tab) 1 tab PO TID PRN PRN Reason: Pain Stop: 03/07/21 20:55 Last Admin: 03/02/21 12:25 Dose: 1 tab Documented by: Pantoprazole Sodium (Pantoprazole 40 Mg Tab) 40 mg PO [facility] Stop: 03/24/21 08:59 Last Admin: 03/02/21 08:39 Dose: 40 mg Documented by: Petrolatum (Butt Paste (Zinc Oxide 16%) 171 Appln/57 Gm Jar) 1 appln EXT DAILY PRN PRN Reason: BUTTOCK EXCORIATION Stop: 03/23/21 21:54 Potassium Chloride (Potassium Chloride 10 Meq Tabcr) 10 meq PO MoWeFr@0900 [facility] Stop: 04/02/21 08:59 Rosuvastatin Calcium (Rosuvastatin Calcium 20 Mg Tab) 40 mg PO HS [facility] Stop: 03/30/21 20:59 Last Admin: 03/01/21 20:45 Dose: 40 mg Documented by: Sertraline HCl (Sertraline Hcl 50 Mg Tablet) 50 mg PO QAM [facility] Stop: 03/24/21 08:59 Last Admin: 03/02/21 08:38 Dose: 50 mg Documented by: Terazosin HCl (Terazosin Hcl 1 Mg Cap) 1 mg PO HS [facility] Stop: 03/23/21 20:59 Last Admin: 03/01/21 20:45 Dose: 1 mg Documented by: Topiramate (Topiramate 25 Mg Tab) 12.5 mg PO BID [facility] Stop: 03/23/21 20:59 Last Admin: 03/02/21 08:38 Dose: 12.5 mg Documented by: (1) Fall Encounter type: initial encounter Qualified Code(s): W19.XXXA - Unspecified fall, initial encounter
--- NOTE | 2021-03-02 16:49 | Orthopedic Consultation ---
Date of Service March 02, 2021 Assessment & Plan (1) Osteoarthritis of right shoulder: We discussed the diagnosis and treatment options at bedside. She was requesting another injection of her right shoulder. I think it is reasonable. I gave her an injection of 80 mg of Kenalog and 3 cc of Marcaine. Hopefully this calms down some of her symptoms. It can often take a couple of days for the shot to kick in. She is an insulin-dependent diabetic. Her glucose levels were normal but this injection can increase her blood sugar levels for the next 24 to 48 hours. It is important we monitor that. She can follow-up with orthopedics on a as needed basis. Procedure: The patient's right anterior glenohumeral joint was injected with 3 cc of Marcaine and 80 mg of Kenalog. The surgical site was prepared with alcohol swabs before the injection. A Band-Aid was placed. She tolerated the procedure well. History of Present Illness Reason for Consultation: Osteoarthritis of the right shoulder. Requesting Physician: . Attending Physician: Nallely Iyer DO Mckenna is a pleasant 75-year-old female who has been admitted to the hospital for a UTI and acute on chronic kidney disease. She has been dealing with years of right shoulder pain. She said she had an injection of her right shoulder several years ago and it worked very well for her. She is having difficulty transferring around her bed and ambulating with a walker. X-rays of her right shoulder do show advanced osteoarthritis. Orthopedics was consulted to evaluate and treat.. Allergies Allergy/AdvReac Type Severity Reaction Status Date / Time loratadine Allergy Intermediate MOUTH Verified 02/21/21 16:24 SWELLING diphenhydramine AdvReac Intermediate GMG-SHAKING Verified 02/21/21 16:24 [From Benadryl] & SWEATING metformin AdvReac Intermediate causes Verified 02/21/21 16:24 kidney problems Sulfa (Sulfonamide AdvReac Intermediate Unknown Verified 02/21/21 16:24 Antibiotics) sulfamethoxazole AdvReac Intermediate GMG-RENAL Verified 02/21/21 16:24 COMPLICATIONS trimethoprim AdvReac Intermediate GMG-RENAL Verified 02/21/21 16:24 COMPLICATIONS Qwddyfk-Yer-Rsv Reductase AdvReac Mild Gastrointestinal Verified 02/21/21 16:24 Inhibitor Upset Home Medications Medication Instructions Recorded Confirmed Type Lantus Solostar U-100 Insulin 20 unit SUBCUT BID 02/14/19 02/21/21 History amlodipine 10 mg PO QAM 02/14/19 02/21/21 History fluticasone propionate 2 spray INTRANASAL QAM 02/14/19 02/21/21 History gabapentin 300 mg PO TID 02/14/19 02/21/21 History hydralazine 100 mg PO TID 02/14/19 02/21/21 History insulin lispro [Humalog KwikPen 10 unit SUBCUT TIDM 02/14/19 02/21/21 History Insulin] pantoprazole 40 mg PO QAM 02/14/19 02/21/21 History rosuvastatin 40 mg PO HS 02/14/19 02/21/21 History sertraline 50 mg PO QAM 02/14/19 02/21/21 History terazosin 1 mg PO HS 02/14/19 02/21/21 History topiramate 25 mg PO BID 02/14/19 02/21/21 History clonazepam 1 mg PO HS 03/02/19 02/21/21 History isosorbide mononitrate 120 mg PO QAM 04/23/19 02/21/21 History oxycodone-acetaminophen [Percocet] 1 tab PO TID PRN 04/23/19 02/21/21 History polyethylene glycol 3350 [Miralax] 17 g PO QAM 04/23/19 02/21/21 History baclofen 5 mg PO BID PRN 08/16/20 02/21/21 History diclofenac sodium 1 ea TOPICAL BID PRN 08/16/20 02/21/21 History famotidine 20 mg PO DAILY 08/16/20 02/21/21 History furosemide 40 mg PO QAM 08/16/20 02/21/21 History ondansetron HCl 8 mg PO TID PRN 08/16/20 02/21/21 History Lactinex 1 tab PO DAILY 10/27/20 02/21/21 History nystatin 1 applic TOPICAL TID PRN 10/27/20 02/21/21 History potassium chloride [Klor-Con M10] 10 meq PO DAILY 12/05/20 02/21/21 History lisinopril 10 mg PO QAM #30 tab 12/08/20 02/21/21 Rx aspirin 81 mg PO DAILY 02/13/21 02/21/21 History zinc oxide 1 applic TOPICAL DIRECTED PRN 02/13/21 02/21/21 History carvedilol 6.25 mg PO AMHS #60 tab 02/16/21 02/21/21 Rx ciprofloxacin HCl 500 mg PO Q12 #6 tab 02/16/21 02/21/21 Rx Past Med/Surg History Medical History Acute UTI Adjustment disorder CAD (coronary artery disease) CHF (congestive heart failure) CKD (chronic kidney disease) CKD (chronic kidney disease), stage III Encephalopathy acute GERD (gastroesophageal reflux disease) HLD (hyperlipidemia) Hypertension Hyponatremia IBS (irritable bowel syndrome) Insulin dependent diabetes mellitus Mood disorder Morbid obesity Paroxysmal A-fib Pressure ulcer Surgical History H/O hernia repair H/O: H/O: hysterectomy S/P cholecystectomy Family History Brother Prostate cancer Father Diabetes Social History Smoking Status: Unknown if ever smoked Second Hand Exposure: No; Do You Dip or Chew Tobacco: No; Hx Alcohol Use: No Hx Substance Use: No Preferred Language: Armenian Communication Ability: Impaired Visual Impairment: No Limitations Miniature 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 Physical Exam On physical examination of the right shoulder, she has limited range of motion. She is about 80 degrees forward elevation 60 degrees of abduction 20 Gy of external rotation. She has pain over the glenohumeral joint line and over the anterolateral subacromial space. Constitutional WD/WN, vitals as above Eyes PERRL, conjunctivae normal, anicteric sclerae ENMT external ear and nose normal, oropharynx normal Neck trachea midline, no thyromegaly Respiratory normal respiratory effort Cardiovascular RRR, no murmur, no edema Gastrointestinal (Abdomen) normal bowel sounds, soft, nontender, no hepatosplenomegaly Psychiatric A+Ox3, euthymic affect Results & Data Results & Data Laboratory Results . Diagnostic Findings X-rays personally reviewed of the right shoulder do show advanced osteoarthritis with joint space narrowing, osteophyte formation, and [id number] articulation. PG Care Time/CCT Total # of Minutes Spent Total Time Spent with Patient: Total time spent is greater than 50% in coordination of care (as documented) at patient's floor/unit and/or counseling patient: Coding Level of Care Code 41310 Inpt Consult Level 4 Diagnoses Osteoarthritis of right shoulder M19.011
[2021-03-02] MEDS: ROSUVASTATIN CALCIUM 20 MG TAB PO SCH (21:01)
[2021-03-02] MEDS: TERAZOSIN HCL 1 MG CAP PO SCH (21:01)
[2021-03-02] MEDS: clonazePAM 1 MG TAB PO SCH (21:01)
[2021-03-03] MEDS: HEPARIN SOD 5,000 UNIT/0.5 ML VIAL SQ SCH ×3 (05:03→20:56)
[2021-03-03] MEDS: PANTOprazole 40 MG TAB PO SCH (08:40)
[2021-03-03] MEDS: ISOSORBIDE MONO EXTENDED REL 60 MG TABCR PO SCH (08:40)
[2021-03-03] MEDS: lisinopril 10 MG TAB PO SCH (08:40)
[2021-03-03] MEDS: SERTRALINE HCL 50 MG TABLET PO SCH (08:40)
[2021-03-03] MEDS: POTASSIUM CHLORIDE 10 MEQ TABCR PO SCH (08:40)
[2021-03-03] MEDS: ASPIRIN 81 MG ECTAB PO SCH (08:41)
[2021-03-03] MEDS: FAMOTIDINE 20 MG TAB PO SCH (08:41)
[2021-03-03] MEDS: GABAPENTIN 100 MG CAP PO SCH (08:41)
[2021-03-03] MEDS: amLODIPine BESYLATE 5 MG TAB PO SCH (08:41)
[2021-03-03] MEDS: carvediloL 6.25 MG TAB PO SCH ×2 (08:41→19:38)
[2021-03-03] MEDS: FLUTICASONE PROPIONATE NA SPR 16 GM BTL SCH (08:41)
[2021-03-03] MEDS: FUROSEMIDE 40 MG TAB PO SCH (08:41)
[2021-03-03] MEDS: hydrALAZINE TAB 50 MG TAB PO SCH ×3 (08:41→19:39)
[2021-03-03] MEDS: INSULIN GLARGINE SOLOSTAR 100 UNITS/ML 3 ML PEN SC SCH ×2 (08:42→20:55)
[2021-03-03] MEDS: INSULIN ASPART 100 UNITS/ML 3 ML PEN SC SCH ×4 (08:43→20:55)
[2021-03-03] MEDS: TOPIRAMATE 25 MG TAB PO SCH ×2 (09:31→19:38)
--- NOTE | 2021-03-03 11:29 | Pharmacy Report ---
Pharmacy Glycemic Short Note 2 - Date of Service March 03, 2021 - Glycemic Short BSG Results (Last 24 hours): 03/02/21 03/02/21 03/02/21 12:16 17:07 20:39 POC Glucose 141 H 99 128 H 03/03/21 07:58 POC Glucose 187 H OUTPATIENT ANTIDIABETIC REGIMEN: * Lantus 20 units SC BID * Humalog 10 units SC TIDM - hold if BSG <160 * A1c 7.5% 02/14/21 ASSESSMENT: 03/03: * Mckenna received a total of 17 units of insulin yesterday * 12 units basal + 5 units of bolus * BSGs were controlled yesterday: 339-584-57-128 mg/dL * Fasting BSG was elevated at 187 mg/dL this AM * Unsure of cause of this fasting hyperglycemia. Appetite was improved yesterday compared to previous days so possibly this cause. * Patient has been very stable on current insulin regimen. Will not make any insulin changes as of now. 02/27: * Mckenna received a total of 21 units of insulin yesterday * 12 units basal + 9 units bolus * BSGs were controlled yesterday: [phone] mg/dL * Fasting BSG well controlled again today at 116 mg/dL * No changes in insulin regimen today 02/26: * Mckenna received a total of 22 units of insulin yesterday * 12 units basal + 10 units bolus * BSGs were controlled: 055-670-729-115 mg/dL * Fasting BSG was controlled this morning at 111 mg/dL * No changes in insulin regimen today PLAN FOR INPATIENT GLYCEMIC CONTROL: * Basal insulin - no change * Lantus 6 units SC BID * Bolus insulin - no change * NovoLog per scale ACHS or Q6hrs while NPO * Goal Range: Low 120 mg/dL - High 160 mg/dL * Correction Factor: 30 mg/dL/unit * Nutritional / Prandial insulin per carb ratio of 1 unit per 12 grams CHO consumed PLAN FOR DISCHARGE: * HbA1c was 7.5% on 02/14/21 which has increased from 6.9% in November 2020. Given patient's age and comorbidities, a realistic HbA1c goal would be less than 8%. * Therefore, would consider patient at goal and recommend continuing outpatient insulin regimen upon discharge.
--- NOTE | 2021-03-03 18:17 | Hospitalist Progress Note ---
Date of Service March 03, 2021 Assessment & Plan (1) Acute UTI: Persistent symptoms with repeat reinfection. Completed 7 day course of abx per ID recs. Removed roldan. Now with worsening of suprapubic discomfort- repeating UA as test of cure. (2) Acute kidney injury superimposed on CKD: Creatinine was 6 on admission in setting of dehydration (nausea, vomiting and diarrhea after returning home) and repeat infection. Restarted Lasix and lisinopril and doing well. Follow BMP and blood pressure. (3) Fall: recurrent falls 2/2 ongoing weakness and physical deconditioning. TRansfer to SNF as a transition to home. (4) Stage III pressure ulcer: Cont inpatient and outpatient wound care and pain meds as needed. (5) CHF (congestive heart failure): chronic, appears euvolemic at this point. Cont home diuretics. (6) Hypertension: at goal, Cont amlodipine, coreg and hydralazine and lasix (7) Insulin dependent diabetes mellitus: At goal. cont glargine and novolog for carb coverage and correction factor. 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 Chronic abdominal pain intermittent. Encouraged to eat small frequent meals and avoid creamy or acidic foods that may trigger her stomach to be upset. (8) DVT prophylaxis: Heparin Full Code Dispo-to rehab/SNF after the holiday weekend DO Lana Horton Hospitalist Admission and Anticipated Discharge Date Admission Date: February 21, 2021 Subjective 75 yo F admitted with weakness, UTI, and acute kidney injury. feeling better but having some suprapubic discomfort repeating urine study in setting of two successive UTIs no other issues today was just up with therapy and walking in hallway. at some points max assistance is needed per therapy. Review of Systems Review of Systems: All systems reviewed & are unremarkable except as noted in Subjective Physical Exam Physical Exam: CONSTITUTIONAL: morbidly obese, vitals as above, generally well-appearing, NAD EYES: normal conjunctivae, no scleral icterus ENT: external ear and nose normal, MMM RESPIRATORY: clear to auscultation bilaterally, no crackles, rales or wheezes, normal respiratory effort CARDIOVASCULAR: regular rate and rhythm, S1 and 2 heard without murmurs, gallops or rubs, no peripheral edema GASTROINTESTINAL: soft, nontender, nondistended. MUSCULOSKELETAL: generalized weakness. SKIN: warm and dry, stage III gluteal pressure ulcer, and on buttocks not able to be visualized per patient's weakness and inability to maneuver. NEUROLOGIC: CN 2-12 grossly intact, somnolent but arousable, normal speech, no tremor PSYCHIATRIC: alert cooperative and oriented to person, place and time. Results & Data Results & Data ([facility]) Vital Signs (Past 12 Hours) Vital Signs Temp Pulse Resp BP Pulse Ox 03/03/21 15:17 36.8 C 74 16 150/70 H 97 Medications Administered Current Inpatient Medications Amlodipine Besylate (Amlodipine Besylate 5 Mg Tab) 10 mg PO QAM [facility] Stop: 03/24/21 08:59 Last Admin: 03/03/21 08:41 Dose: 10 mg Documented by: Aspirin (Aspirin 81 Mg Ectab) 81 mg PO DAILY [facility] Stop: 03/24/21 08:59 Last Admin: 03/03/21 08:41 Dose: 81 mg Documented by: Baclofen (Baclofen 10 Mg Tab) 5 mg PO BID PRN PRN Reason: Pain Stop: 03/23/21 20:55 Last Admin: 03/02/21 08:38 Dose: 5 mg Documented by: Carvedilol (Carvedilol 6.25 Mg Tab) 6.25 mg PO AMHS [facility] Stop: 03/23/21 20:59 Last Admin: 03/03/21 08:41 Dose: 6.25 mg Documented by: Clonazepam (Clonazepam 1 Mg Tab) 1 mg PO HS [facility] Stop: 03/23/21 20:59 Last Admin: 03/02/21 21:01 Dose: 1 mg Documented by: Dextrose (Dextrose 50% 50 Ml Syringe) 25 - 50 ml IV UD PRN; Protocol PRN Reason: Hypoglycemia Protocol Stop: 03/23/21 20:55 Famotidine (Famotidine 20 Mg Tab) 20 mg PO DAILY [facility] Stop: 03/24/21 08:59 Last Admin: 03/03/21 08:41 Dose: 20 mg Documented by: Fluticasone Propionate (Fluticasone Propionate Na Spr 16 Gm Btl) 2 sprays NA QAM [facility] Stop: 03/24/21 08:59 Last Admin: 03/03/21 08:41 Dose: 2 sprays Documented by: Furosemide (Furosemide 40 Mg Tab) 40 mg PO MoWeFr@0900 [facility] Stop: 04/02/21 08:59 Last Admin: 03/03/21 08:41 Dose: 40 mg Documented by: Gabapentin (Gabapentin 100 Mg Cap) 100 mg PO DAILY [facility] Stop: 03/24/21 08:59 Last Admin: 03/03/21 08:41 Dose: 100 mg Documented by: Glucagon (Glucagon For Inj 1 Mg Vial) 1 mg SQ UD PRN; Protocol PRN Reason: Hypoglycemia Protocol Stop: 03/23/21 20:55 Glucose (Glucose 10 Tabs/Tube) 4 - 8 tabs PO UD PRN; Protocol PRN Reason: Hypoglycemia Protocol Stop: 03/23/21 20:55 Glucose (Glucose 40% Gel 15 Gm Tube) 15 - 30 gm PO UD PRN; Protocol PRN Reason: Hypoglycemia Protocol Stop: 03/23/21 20:55 Heparin Sodium (Porcine) (Heparin Sod 5,000 Unit/0.5 Ml Vial) 5,000 units SQ Q8 [facility] Stop: 03/23/21 21:59 Last Admin: 03/03/21 15:14 Dose: 5,000 units Documented by: Hydralazine HCl (Hydralazine Tab 50 Mg Tab) 50 mg PO TID [facility] Stop: 03/23/21 20:59 Last Admin: 03/03/21 15:16 Dose: 50 mg Documented by: Insulin Aspart (Insulin Aspart 100 Units/Ml 3 Ml Pen) 0 units SC ACHS [facility]; Protocol Stop: 03/23/21 21:44 Last Admin: 03/03/21 17:43 Dose: 6 units Documented by: Insulin Glargine (Insulin Glargine Solostar 100 Units/Ml 3 Ml Pen) 0 units SC BID [facility]; Protocol Stop: 03/24/21 08:59 Last Admin: 03/03/21 08:42 Dose: 6 units Documented by: Isosorbide Mononitrate (Isosorbide Glades Extended Rel 60 Mg Tabcr) 120 mg PO QAM [facility] Stop: 03/24/21 08:59 Last Admin: 03/03/21 08:40 Dose: 120 mg Documented by: Lisinopril (Lisinopril 10 Mg Tab) 10 mg PO QAM [facility] Stop: 03/31/21 08:59 Last Admin: 03/03/21 08:40 Dose: 10 mg Documented by: Miscellaneous (Carbohydrates For Hypoglycemia ) 15 - 30 gm PO UD PRN PRN Reason: Hypoglycemia Protocol Stop: 03/23/21 20:55 Miscellaneous Information (Pharmacy Glycemic Mgmt Consult) 1 ea N/A UD PRN; Protocol PRN Reason: Consult Stop: 03/23/21 21:41 Nystatin (Nystatin Powder 15gm Btl) 1 appln EXT TID PRN PRN Reason: Skin Irritation Stop: 03/23/21 20:55 Ondansetron HCl (Ondansetron Inj 2 Mg/Ml 2 Ml Vial) 4 mg IV Q4H PRN PRN Reason: Nausea Stop: 03/26/21 18:20 Last Admin: 03/02/21 21:01 Dose: 4 mg Documented by: Oxycodone/Acetaminophen (Oxycodone/Acetaminophen 5mg/325mg Tab) 1 tab PO TID PRN PRN Reason: Pain Stop: 03/07/21 20:55 Last Admin: 03/02/21 21:01 Dose: 1 tab Documented by: Pantoprazole Sodium (Pantoprazole 40 Mg Tab) 40 mg PO [facility] Stop: 03/24/21 08:59 Last Admin: 03/03/21 08:40 Dose: 40 mg Documented by: Petrolatum (Butt Paste (Zinc Oxide 16%) 171 Appln/57 Gm Jar) 1 appln EXT DAILY PRN PRN Reason: BUTTOCK EXCORIATION Stop: 03/23/21 21:54 Potassium Chloride (Potassium Chloride 10 Meq Tabcr) 10 meq PO MoWeFr@0900 [facility] Stop: 04/02/21 08:59 Last Admin: 03/03/21 08:40 Dose: 10 meq Documented by: Rosuvastatin Calcium (Rosuvastatin Calcium 20 Mg Tab) 40 mg PO [facility] Stop: 03/30/21 20:59 Last Admin: 03/02/21 21:01 Dose: 40 mg Documented by: Sertraline HCl (Sertraline Hcl 50 Mg Tablet) 50 mg PO [facility] Stop: 03/24/21 08:59 Last Admin: 03/03/21 08:40 Dose: 50 mg Documented by: Terazosin HCl (Terazosin Hcl 1 Mg Cap) 1 mg PO [facility] Stop: 03/23/21 20:59 Last Admin: 03/02/21 21:01 Dose: 1 mg Documented by: Topiramate (Topiramate 25 Mg Tab) 12.5 mg PO BID [facility] Stop: 03/23/21 20:59 Last Admin: 03/03/21 09:31 Dose: 12.5 mg Documented by: (1) Fall Encounter type: initial encounter Qualified Code(s): W19.XXXA - Unspecified fall, initial encounter
[2021-03-03] MEDS: oxyCODONE/ACETAMINOPHEN 5mg/325mg TAB PO PRN (18:33)
[2021-03-03] MEDS: TERAZOSIN HCL 1 MG CAP PO SCH (19:38)
[2021-03-03] MEDS: clonazePAM 1 MG TAB PO SCH (19:38)
[2021-03-03] MEDS: ROSUVASTATIN CALCIUM 20 MG TAB PO SCH (19:38)
[2021-03-04] MEDS: oxyCODONE/ACETAMINOPHEN 5mg/325mg TAB PO PRN ×2 (02:21→11:05)
[2021-03-04] MEDS: HEPARIN SOD 5,000 UNIT/0.5 ML VIAL SQ SCH ×3 (05:55→21:18)
[2021-03-04] MEDS: INSULIN ASPART 100 UNITS/ML 3 ML PEN SC SCH ×4 (09:03→21:20)
[2021-03-04] MEDS: INSULIN GLARGINE SOLOSTAR 100 UNITS/ML 3 ML PEN SC SCH ×2 (09:03→21:21)
[2021-03-04] MEDS: ONDANSETRON INJ 2 MG/ML 2 ML VIAL IV PRN ×2 (09:15→18:09)
--- NOTE | 2021-03-04 10:30 | Pharmacy Report ---
Pharmacy Glycemic Short Note 2 - Date of Service March 04, 2021 - Glycemic Short BSG Results (Last 24 hours): 03/03/21 03/03/21 03/03/21 11:59 17:18 20:51 POC Glucose 187 H 196 H 165 H 03/04/21 08:07 POC Glucose 204 H OUTPATIENT ANTIDIABETIC REGIMEN: * Lantus 20 units SC BID * Humalog 10 units SC TIDM - hold if BSG <160 * A1c 7.5% 02/14/21 ASSESSMENT: 03/04 * Pt has received 24 units of insulin over the past 24hrs * 12 units of basal with Lantus * 12 units of bolus with NovoLog * BSGs [phone] mg/dl * All BSGs above goal range. Will increase basal insulin and tighten CF/CR 03/03: * Mckenna received a total of 17 units of insulin yesterday * 12 units basal + 5 units of bolus * BSGs were controlled yesterday: 669-554-06-128 mg/dL * Fasting BSG was elevated at 187 mg/dL this AM * Unsure of cause of this fasting hyperglycemia. Appetite was improved yesterday compared to previous days so possibly this cause. * Patient has been very stable on current insulin regimen. Will not make any insulin changes as of now. 02/27: * Mckenna received a total of 21 units of insulin yesterday * 12 units basal + 9 units bolus * BSGs were controlled yesterday: [phone] mg/dL * Fasting BSG well controlled again today at 116 mg/dL * No changes in insulin regimen today 02/26: * Mckenna received a total of 22 units of insulin yesterday * 12 units basal + 10 units bolus * BSGs were controlled: [phone] mg/dL * Fasting BSG was controlled this morning at 111 mg/dL * No changes in insulin regimen today PLAN FOR INPATIENT GLYCEMIC CONTROL: * Basal insulin * Lantus SC BID- dose based on BSG. Will increase scale from 4-6 units BID to 4-6-8 units SQ BID based on BSG. * Bolus insulin - lower goal range and tighten CF/CR * NovoLog per scale ACHS or Q6hrs while NPO * Goal Range: Low 110 mg/dL - High 140 mg/dL * Correction Factor: 20 mg/dL/unit * Nutritional / Prandial insulin per carb ratio of 1 unit per 7 grams CHO consumed PLAN FOR DISCHARGE: * HbA1c was 7.5% on 02/14/21 which has increased from 6.9% in November 2020. Given patient's age and comorbidities, a realistic HbA1c goal would be less than 8%. * Therefore, would consider patient at goal and recommend continuing outpatient insulin regimen upon discharge.
[2021-03-04] MEDS: ASPIRIN 81 MG ECTAB PO SCH (11:05)
[2021-03-04] MEDS: PANTOprazole 40 MG TAB PO SCH (11:05)
[2021-03-04] MEDS: FAMOTIDINE 20 MG TAB PO SCH (11:06)
[2021-03-04] MEDS: GABAPENTIN 100 MG CAP PO SCH (11:06)
[2021-03-04] MEDS: SERTRALINE HCL 50 MG TABLET PO SCH (11:07)
[2021-03-04] MEDS: amLODIPine BESYLATE 5 MG TAB PO SCH (11:07)
[2021-03-04] MEDS: carvediloL 6.25 MG TAB PO SCH ×2 (11:08→21:19)
[2021-03-04] MEDS: ISOSORBIDE MONO EXTENDED REL 60 MG TABCR PO SCH (11:09)
[2021-03-04] MEDS: lisinopril 10 MG TAB PO SCH (11:09)
[2021-03-04] MEDS: FLUTICASONE PROPIONATE NA SPR 16 GM BTL SCH (11:09)
[2021-03-04] MEDS: hydrALAZINE TAB 50 MG TAB PO SCH ×3 (11:10→21:17)
[2021-03-04 11:13] LABS: Appearance Urine Clear (Clear); Bilirubin Urine Negative (Negative); Blood Urine Negative (Negative); Color Urine Yellow; Glucose Urine UA Negative (Negative); Ketones Urine Negative (Negative); Leukocyte Esterase Urine 1+ (Negative); Nitrite Urine Negative (Negative); Protein Urine Negative (Negative); Specific Gravity Urine 1.015 (1.000-1.030); Urobilinogen Urine Negative (Negative)
--- NOTE | 2021-03-04 15:20 | Hospitalist Progress Note ---
Date of Service March 04, 2021 Assessment & Plan (1) Acute UTI: Persistent symptoms with repeat reinfection. Completed 7 day course of abx per ID recs. Removed roldan. Suprapubic discomfort has resolved. Repeat UA neg. (2) Acute kidney injury superimposed on CKD: Creatinine was 6 on admission in setting of dehydration (nausea, vomiting and diarrhea after returning home) and repeat infection. Restarted Lasix and lisinopril and doing well. Follow BMP and blood pressure. (3) Fall: recurrent falls 2/2 ongoing weakness and physical deconditioning. TRansfer to SNF as a transition to home. (4) Stage III pressure ulcer: Cont inpatient and outpatient wound care and pain meds as needed. (5) CHF (congestive heart failure): chronic, appears euvolemic at this point. Cont home diuretics. (6) Hypertension: at goal, Cont amlodipine, coreg and hydralazine and lasix (7) Insulin dependent diabetes mellitus: At goal. cont glargine and novolog for carb coverage and correction factor. 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 Chronic abdominal pain intermittent. Encouraged to eat small frequent meals and avoid creamy or acidic foods that may trigger her stomach to be upset. (8) DVT prophylaxis: Heparin Full Code Dispo-to rehab/SNF tomorrow. Nallely Iyer DO [facility] Hospitalist Admission and Anticipated Discharge Date Admission Date: February 21, 2021 Subjective 75 yo F admitted with weakness, UTI, and acute kidney injury. suprapubic discomfort has resolved today still with chronic abdominal discomfort after eating patient denies any recent changes in this and assures that this is long-standing no diarrhea tolerating PO ambulated out of bed today with assistance. repeat UA was neg for bacteria. Review of Systems Review of Systems: All systems reviewed & are unremarkable except as noted in Subjective Physical Exam Physical Exam: CONSTITUTIONAL: morbidly obese, vitals as above, generally well-appearing, NAD EYES: normal conjunctivae, no scleral icterus ENT: external ear and nose normal, MMM RESPIRATORY: clear to auscultation bilaterally, no crackles, rales or wheezes, normal respiratory effort CARDIOVASCULAR: regular rate and rhythm, S1 and 2 heard without murmurs, gallops or rubs, no peripheral edema GASTROINTESTINAL: soft, nontender, nondistended. MUSCULOSKELETAL: generalized weakness. SKIN: warm and dry, stage III gluteal pressure ulcer, and on buttocks not able to be visualized per patient's weakness and inability to maneuver. NEUROLOGIC: CN 2-12 grossly intact, somnolent but arousable, normal speech, no tremor PSYCHIATRIC: alert cooperative and oriented to person, place and time. Results & Data Results & Data ([facility]) Vital Signs (Past 12 Hours) Vital Signs Temp Pulse Resp BP Pulse Ox 03/04/21 07:40 36.9 C 74 18 161/72 H 97 Laboratory Results Urine 03/04/21 Range/Units 10:56 Urine Color Yellow Urine Appearance Clear (Clear) Urine pH 6.0 (4.5-7.5) Ur Specific [place] 1.015 (1.000-1.030) Urine Protein Negative (Negative) Urine Glucose (UA) Negative (Negative) Medications Administered Current Inpatient Medications Amlodipine Besylate (Amlodipine Besylate 5 Mg Tab) 10 mg PO QAM [facility] Stop: 03/24/21 08:59 Last Admin: 03/04/21 11:07 Dose: 10 mg Documented by: Aspirin (Aspirin 81 Mg Ectab) 81 mg PO DAILY [facility] Stop: 03/24/21 08:59 Last Admin: 03/04/21 11:05 Dose: 81 mg Documented by: Baclofen (Baclofen 10 Mg Tab) 5 mg PO BID PRN PRN Reason: Pain Stop: 03/23/21 20:55 Last Admin: 03/02/21 08:38 Dose: 5 mg Documented by: Carvedilol (Carvedilol 6.25 Mg Tab) 6.25 mg PO AMHS [facility] Stop: 03/23/21 20:59 Last Admin: 03/04/21 11:08 Dose: 6.25 mg Documented by: Clonazepam (Clonazepam 1 Mg Tab) 1 mg PO HS [facility] Stop: 03/23/21 20:59 Last Admin: 03/03/21 19:38 Dose: 1 mg Documented by: Dextrose (Dextrose 50% 50 Ml Syringe) 25 - 50 ml IV UD PRN; Protocol PRN Reason: Hypoglycemia Protocol Stop: 03/23/21 20:55 Famotidine (Famotidine 20 Mg Tab) 20 mg PO DAILY [facility] Stop: 03/24/21 08:59 Last Admin: 03/04/21 11:06 Dose: 20 mg Documented by: Fluticasone Propionate (Fluticasone Propionate Na Spr 16 Gm Btl) 2 sprays NA QAM [facility] Stop: 03/24/21 08:59 Last Admin: 03/04/21 11:09 Dose: 2 sprays Documented by: Furosemide (Furosemide 40 Mg Tab) 40 mg PO MoWeFr@0900 [facility] Stop: 04/02/21 08:59 Last Admin: 03/03/21 08:41 Dose: 40 mg Documented by: Gabapentin (Gabapentin 100 Mg Cap) 100 mg PO DAILY [facility] Stop: 03/24/21 08:59 Last Admin: 03/04/21 11:06 Dose: 100 mg Documented by: Glucagon (Glucagon For Inj 1 Mg Vial) 1 mg SQ UD PRN; Protocol PRN Reason: Hypoglycemia Protocol Stop: 03/23/21 20:55 Glucose (Glucose 10 Tabs/Tube) 4 - 8 tabs PO UD PRN; Protocol PRN Reason: Hypoglycemia Protocol Stop: 03/23/21 20:55 Glucose (Glucose 40% Gel 15 Gm Tube) 15 - 30 gm PO UD PRN; Protocol PRN Reason: Hypoglycemia Protocol Stop: 03/23/21 20:55 Heparin Sodium (Porcine) (Heparin Sod 5,000 Unit/0.5 Ml Vial) 5,000 units SQ Q8 [facility] Stop: 03/23/21 21:59 Last Admin: 03/04/21 05:55 Dose: 5,000 units Documented by: Hydralazine HCl (Hydralazine Tab 50 Mg Tab) 50 mg PO TID [facility] Stop: 03/23/21 20:59 Last Admin: 03/04/21 11:10 Dose: 50 mg Documented by: Insulin Aspart (Insulin Aspart 100 Units/Ml 3 Ml Pen) 0 units SC ACHS [facility]; Protocol Stop: 03/23/21 21:44 Last Admin: 03/04/21 13:23 Dose: 6 units Documented by: Insulin Glargine (Insulin Glargine Solostar 100 Units/Ml 3 Ml Pen) 0 units SC BID [facility]; Protocol Stop: 03/24/21 08:59 Last Admin: 03/04/21 09:03 Dose: 8 units Documented by: Isosorbide Mononitrate (Isosorbide [place] Extended Rel 60 Mg Tabcr) 120 mg PO QAM [facility] Stop: 03/24/21 08:59 Last Admin: 03/04/21 11:09 Dose: 120 mg Documented by: Lisinopril (Lisinopril 10 Mg Tab) 10 mg PO QAM [facility] Stop: 03/31/21 08:59 Last Admin: 03/04/21 11:09 Dose: 10 mg Documented by: Miscellaneous (Carbohydrates For Hypoglycemia ) 15 - 30 gm PO UD PRN PRN Reason: Hypoglycemia Protocol Stop: 03/23/21 20:55 Miscellaneous Information (Pharmacy Glycemic Mgmt Consult) 1 ea N/A UD PRN; Protocol PRN Reason: Consult Stop: 03/23/21 21:41 Nystatin (Nystatin Powder 15gm Btl) 1 appln EXT TID PRN PRN Reason: Skin Irritation Stop: 03/23/21 20:55 Ondansetron HCl (Ondansetron Inj 2 Mg/Ml 2 Ml Vial) 4 mg IV Q4H PRN PRN Reason: Nausea Stop: 03/26/21 18:20 Last Admin: 03/04/21 09:15 Dose: 4 mg Documented by: Oxycodone/Acetaminophen (Oxycodone/Acetaminophen 5mg/325mg Tab) 1 tab PO TID PRN PRN Reason: Pain Stop: 03/07/21 20:55 Last Admin: 03/04/21 11:05 Dose: 1 tab Documented by: Pantoprazole Sodium (Pantoprazole 40 Mg Tab) 40 mg PO QAM [facility] Stop: 03/24/21 08:59 Last Admin: 03/04/21 11:05 Dose: 40 mg Documented by: Petrolatum (Butt Paste (Zinc Oxide 16%) 171 Appln/57 Gm Jar) 1 appln EXT DAILY PRN PRN Reason: BUTTOCK EXCORIATION Stop: 03/23/21 21:54 Potassium Chloride (Potassium Chloride 10 Meq Tabcr) 10 meq PO MoWeFr@0900 [facility] Stop: 04/02/21 08:59 Last Admin: 03/03/21 08:40 Dose: 10 meq Documented by: Rosuvastatin Calcium (Rosuvastatin Calcium 20 Mg Tab) 40 mg PO HS [facility] Stop: 03/30/21 20:59 Last Admin: 03/03/21 19:38 Dose: 40 mg Documented by: Sertraline HCl (Sertraline Hcl 50 Mg Tablet) 50 mg PO QAM [facility] Stop: 03/24/21 08:59 Last Admin: 03/04/21 11:07 Dose: 50 mg Documented by: Terazosin HCl (Terazosin Hcl 1 Mg Cap) 1 mg PO HS [facility] Stop: 03/23/21 20:59 Last Admin: 03/03/21 19:38 Dose: 1 mg Documented by: Topiramate (Topiramate 25 Mg Tab) 12.5 mg PO BID [facility] Stop: 03/23/21 20:59 Last Admin: 03/03/21 19:38 Dose: 12.5 mg Documented by: (1) Fall Encounter type: initial encounter Qualified Code(s): W19.XXXA - Unspecified fall, initial encounter
[2021-03-04] MEDS: TOPIRAMATE 25 MG TAB PO SCH ×2 (15:24→21:14)
[2021-03-04] MEDS ORDERED: CALCIUM CARBONATE 500 MG CHEWABLE TAB PO STA (19:30)
[2021-03-04] MEDS ORDERED: PROMETHAZINE HCL 12.5 MG in SODIUM CHLORIDE 0.9% 50 ML IV PRN (19:30)
[2021-03-04] MEDS: ROSUVASTATIN CALCIUM 20 MG TAB PO SCH (21:17)
[2021-03-04] MEDS: TERAZOSIN HCL 1 MG CAP PO SCH (21:27)
[2021-03-04] MEDS: clonazePAM 1 MG TAB PO SCH (21:31)
[2021-03-05] MEDS: HEPARIN SOD 5,000 UNIT/0.5 ML VIAL SQ SCH ×2 (05:44→15:32)
--- NOTE | 2021-03-05 07:06 | Orthopedic Progress Note ---
Date of Service March 05, 2021 Assessment & Plan (1) Osteoarthritis of right shoulder: Unfortunately she is still having pain in the shoulder after the injection. She says she has had minimal relief from it. It mostly hurts when she rolls on it. She is not a surgical candidate. I am happy to follow her up in the office with further injections in the future. We can give the injection a few more days and see if it has a little bit better effect. Subjective Mckenna was seen and examined at bedside this morning. She still having some soreness in the shoulder. The shot has not been that effective yet. She says it hurts mostly when she rolls over on it. Review of Systems All systems reviewed & are unremarkable except as noted in HPI & below. Physical Exam On physical examination the right shoulder, she has very limited range of motion. She has poor strength. She is pain over the glenohumeral joint area.. Results & Data Results & Data Laboratory Results . Diagnostic Findings . PG Care Time/CCT Total # of Minutes Spent Total Time Spent with Patient: Total time spent is greater than 50% in coordination of care (as documented) at patient's floor/unit and/or counseling patient: Coding Level of Care Code 57898 Subseq Hosp Care Lvl 1 Diagnoses Osteoarthritis of right shoulder M19.011
[2021-03-05] MEDS: hydrALAZINE TAB 50 MG TAB PO SCH ×2 (07:26→15:32)
[2021-03-05] MEDS: FUROSEMIDE 40 MG TAB PO SCH (07:27)
[2021-03-05] MEDS: ASPIRIN 81 MG ECTAB PO SCH (07:27)
[2021-03-05] MEDS: TOPIRAMATE 25 MG TAB PO SCH (07:27)
[2021-03-05] MEDS: carvediloL 6.25 MG TAB PO SCH (07:28)
[2021-03-05] MEDS: SERTRALINE HCL 50 MG TABLET PO SCH (07:29)
[2021-03-05] MEDS: PANTOprazole 40 MG TAB PO SCH (07:30)
[2021-03-05] MEDS: lisinopril 10 MG TAB PO SCH (07:30)
[2021-03-05] MEDS: FAMOTIDINE 20 MG TAB PO SCH (07:30)
[2021-03-05] MEDS: amLODIPine BESYLATE 5 MG TAB PO SCH (07:31)
[2021-03-05] MEDS: GABAPENTIN 100 MG CAP PO SCH (07:31)
[2021-03-05] MEDS: ISOSORBIDE MONO EXTENDED REL 60 MG TABCR PO SCH (07:32)
[2021-03-05] MEDS: POTASSIUM CHLORIDE 10 MEQ TABCR PO SCH (07:32)
[2021-03-05] MEDS: FLUTICASONE PROPIONATE NA SPR 16 GM BTL SCH (07:33)
[2021-03-05] MEDS: INSULIN GLARGINE SOLOSTAR 100 UNITS/ML 3 ML PEN SC SCH (09:05)
[2021-03-05] MEDS: INSULIN ASPART 100 UNITS/ML 3 ML PEN SC SCH ×2 (09:06→13:18)
[2021-03-05 11:08] LABS: Basophils # (auto) 0.01 K/uL (0-0.2); Basophils % (auto) 0.1 %; Hematocrit (blood only) 31.4 % (37-47); Hemoglobin 10.1 g/dL (12.0-16.0); Immature Granulocytes # (auto) 0.04 K/uL (0.00-0.02); Immature Granulocytes % (auto) 0.4 %; Lymphocytes # (auto) 1.37 K/uL (1.2-3.4); Lymphocytes % (auto) 14.8 %; Mean Corpuscular Hemoglobin 29.5 pg (25-34); Mean Corpuscular Hgb Conc 32.2 g/dL (32-36); Mean Corpuscular Volume 91.8 fL (80-100); Mean Platelet Volume 9.8 fL (7.4-10.4); Monocytes # (auto) 0.53 K/uL (0.11-0.59); Monocytes % (auto) 5.7 %; Neutrophils # (auto) 7.31 K/uL (1.4-6.5); Platelet Count 266 K/uL (130-400); RDW Coefficient of Variation 15.3 % (11.5-14.5); RDW Standard Deviation 51.2 fL (36.4-46.3); Red Blood Count 3.42 M/uL (4.2-5.4); White Blood Count 9.26 K/uL (4.8-10.8)
[2021-03-05 11:36] LABS: BUN Creatinine Ratio 17.2 (10-20); Calcium 8.8 mg/dl (8.5-10.1); Creatinine Clr Calc Pharmacy 32.6 ml/min; Est GFR (African American) 34.1 ml/min; Est GFR (Non-African American) 29.4 ml/min; Potassium 4.2 mmol/L (3.5-5.1)
--- NOTE | 2021-03-05 14:17 | Hospitalist Progress Note ---
Date of Service March 05, 2021 Assessment & Plan (1) Acute UTI: Persistent symptoms with repeat reinfection. Completed 7 day course of abx per ID recs. Removed roldan. Suprapubic discomfort has resolved. Repeat UA neg. (2) Acute kidney injury superimposed on CKD: Creatinine was 6 on admission in setting of dehydration (nausea, vomiting and diarrhea after returning home) and repeat infection. Restarted Lasix and lisinopril and doing well. Follow BMP and blood pressure. (3) Fall: recurrent falls 2/2 ongoing weakness and physical deconditioning. TRansfer to SNF as a transition to home. (4) Stage III pressure ulcer: Cont inpatient and outpatient wound care and pain meds as needed. (5) CHF (congestive heart failure): chronic, appears euvolemic at this point. Cont home diuretics. (6) Hypertension: at goal, Cont amlodipine, coreg and hydralazine and lasix (7) Insulin dependent diabetes mellitus: At goal. cont glargine and novolog for carb coverage and correction factor. 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 Chronic abdominal pain intermittent. Encouraged to eat small frequent meals and avoid creamy or acidic foods that may trigger her stomach to be upset. (8) DVT prophylaxis: Heparin Full Code Dispo-to rehab/SNF tomorrow. Nallely Iyer DO [facility] Hospitalist Admission and Anticipated Discharge Date Admission Date: February 21, 2021 Subjective 03/05/2021 The patient was seen and examined in medical floor She remains generally weak and complains to have some diarrhea Denies any other symptoms She will be discharged to [facility] this afternoon Review of Systems Review of Systems: All systems reviewed and are unremarkable except as noted below Neurologic: + generalized weakness Physical Exam Physical Exam: Sitting on a chair without any acute distress Constitutional: well developed, well nourished and + obese; not ill appearing Eyes: PERRL, conjunctivae normal, anicteric sclerae ENMT: external ear and nose normal, oropharynx normal Neck: trachea midline, no thyromegaly Respiratory: no respiratory distress Auscultation: + diminished lung sounds; no crackles Cardiovascular: Rate/Rhythm: regular rate and regular rhythm Heart Sounds: no murmur Extremities: + edema (Trace edema bilaterally) Gastrointestinal (Abdomen): Inspection/Auscultation: + abdomen distended and normal bowel sounds Percussion/Palpation: abdomen soft; abdomen nontender Musculoskeletal: No acute arthritis in any joint Neurologic: Alert, awake and oriented x3. Generally weak Lymphatic: no cervical or axillary lymphadenopathy Results & Data Results & Data ([facility]) Vital Signs (Past 12 Hours) Vital Signs Temp Pulse Resp BP Pulse Ox 03/05/21 07:58 36.8 C 74 20 161/74 H 94 Laboratory Results Short CBC 02/21/21 02/22/21 02/23/21 Range/Units 16:12 08:03 06:32 WBC (4.8-10.8) K/uL Hgb (12.0-16.0) g/dL Hct (37-47) % Plt Count (130-400) K/uL Creatinine 6.00 H* 4.81 H* D 3.22 H D (0.6-1.2) mg/dl 02/24/21 02/25/21 02/26/21 Range/Units 07:25 06:44 05:46 WBC (4.8-10.8) K/uL Hgb (12.0-16.0) g/dL Hct (37-47) % Plt Count (130-400) K/uL Creatinine 2.05 H D 1.47 H D 1.22 H (0.6-1.2) mg/dl 02/27/21 02/28/21 03/01/21 Range/Units 06:42 07:47 05:44 WBC (4.8-10.8) K/uL Hgb (12.0-16.0) g/dL Hct (37-47) % Plt Count (130-400) K/uL Creatinine 1.15 1.20 1.21 H (0.6-1.2) mg/dl 03/05/21 03/05/21 Range/Units 10:48 10:48 WBC 9.26 (4.8-10.8) K/uL Hgb 10.1 L (12.0-16.0) g/dL Hct 31.4 L (37-47) % Plt Count 266 (130-400) K/uL Creatinine 1.68 H (0.6-1.2) mg/dl BMP 03/05/21 10:48 Sodium 139 Potassium 4.2 Chloride 110 H Carbon Dioxide 21 BUN 29 H Creatinine 1.68 H Glucose 161 H Calcium 8.8 Medications Administered Current Inpatient Medications Amlodipine Besylate (Amlodipine Besylate 5 Mg Tab) 10 mg PO QAM [facility] Stop: 03/24/21 08:59 Last Admin: 03/05/21 07:31 Dose: 10 mg Documented by: Aspirin (Aspirin 81 Mg Ectab) 81 mg PO DAILY [facility] Stop: 03/24/21 08:59 Last Admin: 03/05/21 07:27 Dose: 81 mg Documented by: Baclofen (Baclofen 10 Mg Tab) 5 mg PO BID PRN PRN Reason: Pain Stop: 03/23/21 20:55 Last Admin: 03/02/21 08:38 Dose: 5 mg Documented by: Carvedilol (Carvedilol 6.25 Mg Tab) 6.25 mg PO AMHS [facility] Stop: 03/23/21 20:59 Last Admin: 03/05/21 07:28 Dose: 6.25 mg Documented by: Clonazepam (Clonazepam 1 Mg Tab) 1 mg PO HS [facility] Stop: 03/23/21 20:59 Last Admin: 03/04/21 21:31 Dose: 1 mg Documented by: Dextrose (Dextrose 50% 50 Ml Syringe) 25 - 50 ml IV UD PRN; Protocol PRN Reason: Hypoglycemia Protocol Stop: 03/23/21 20:55 Famotidine (Famotidine 20 Mg Tab) 20 mg PO DAILY [facility] Stop: 03/24/21 08:59 Last Admin: 03/05/21 07:30 Dose: 20 mg Documented by: Fluticasone Propionate (Fluticasone Propionate Na Spr 16 Gm Btl) 2 sprays NA QAM [facility] Stop: 03/24/21 08:59 Last Admin: 03/05/21 07:33 Dose: 2 sprays Documented by: Furosemide (Furosemide 40 Mg Tab) 40 mg PO MoWeFr@0900 [facility] Stop: 04/02/21 08:59 Last Admin: 03/05/21 07:27 Dose: 40 mg Documented by: Gabapentin (Gabapentin 100 Mg Cap) 100 mg PO DAILY [facility] Stop: 03/24/21 08:59 Last Admin: 03/05/21 07:31 Dose: 100 mg Documented by: Glucagon (Glucagon For Inj 1 Mg Vial) 1 mg SQ UD PRN; Protocol PRN Reason: Hypoglycemia Protocol Stop: 03/23/21 20:55 Glucose (Glucose 10 Tabs/Tube) 4 - 8 tabs PO UD PRN; Protocol PRN Reason: Hypoglycemia Protocol Stop: 03/23/21 20:55 Glucose (Glucose 40% Gel 15 Gm Tube) 15 - 30 gm PO UD PRN; Protocol PRN Reason: Hypoglycemia Protocol Stop: 03/23/21 20:55 Heparin Sodium (Porcine) (Heparin Sod 5,000 Unit/0.5 Ml Vial) 5,000 units SQ Q8 [facility] Stop: 03/23/21 21:59 Last Admin: 03/05/21 05:44 Dose: 5,000 units Documented by: Hydralazine HCl (Hydralazine Tab 50 Mg Tab) 50 mg PO TID [facility] Stop: 03/23/21 20:59 Last Admin: 03/05/21 07:26 Dose: 50 mg Documented by: Promethazine HCl 12.5 mg/ (Sodium Chloride) 50.5 mls @ 202 mls/hr IV Q6H PRN PRN Reason: Nausea And Vomiting Stop: 04/03/21 19:29 Last Infusion: 03/05/21 07:51 Dose: Infused Documented by: Insulin Aspart (Insulin Aspart 100 Units/Ml 3 Ml Pen) 0 units SC ACHS [facility]; Protocol Stop: 03/23/21 21:44 Last Admin: 03/05/21 13:18 Dose: 4 units Documented by: Insulin Glargine (Insulin Glargine Solostar 100 Units/Ml 3 Ml Pen) 0 units SC BID [facility]; Protocol Stop: 03/24/21 08:59 Last Admin: 03/05/21 09:05 Dose: 10 units Documented by: Isosorbide Mononitrate (Isosorbide [place] Extended Rel 60 Mg Tabcr) 120 mg PO QAM [facility] Stop: 03/24/21 08:59 Last Admin: 03/05/21 07:32 Dose: 120 mg Documented by: Lisinopril (Lisinopril 10 Mg Tab) 10 mg PO QAM [facility] Stop: 03/31/21 08:59 Last Admin: 03/05/21 07:30 Dose: 10 mg Documented by: Miscellaneous (Carbohydrates For Hypoglycemia ) 15 - 30 gm PO UD PRN PRN Reason: Hypoglycemia Protocol Stop: 03/23/21 20:55 Miscellaneous Information (Pharmacy Glycemic Mgmt Consult) 1 ea N/A UD PRN; Protocol PRN Reason: Consult Stop: 03/23/21 21:41 Nystatin (Nystatin Powder 15gm Btl) 1 appln EXT TID PRN PRN Reason: Skin Irritation Stop: 03/23/21 20:55 Ondansetron HCl (Ondansetron Inj 2 Mg/Ml 2 Ml Vial) 4 mg IV Q4H PRN PRN Reason: Nausea Stop: 03/26/21 18:20 Last Admin: 03/04/21 18:09 Dose: 4 mg Documented by: Oxycodone/Acetaminophen (Oxycodone/Acetaminophen 5mg/325mg Tab) 1 tab PO TID PRN PRN Reason: Pain Stop: 03/07/21 20:55 Last Admin: 03/04/21 11:05 Dose: 1 tab Documented by: Pantoprazole Sodium (Pantoprazole 40 Mg Tab) [facility] Stop: 03/24/21 08:59 Last Admin: 03/05/21 07:30 Dose: 40 mg Documented by: Petrolatum (Butt Paste (Zinc Oxide 16%) 171 Appln/57 Gm Jar) 1 appln EXT DAILY PRN PRN Reason: BUTTOCK EXCORIATION Stop: 03/23/21 21:54 Potassium Chloride (Potassium Chloride 10 Meq Tabcr) 10 meq PO MoWeFr@0900 [facility] Stop: 04/02/21 08:59 Last Admin: 03/05/21 07:32 Dose: 10 meq Documented by: Rosuvastatin Calcium (Rosuvastatin Calcium 20 Mg Tab) 40 mg PO [facility] Stop: 03/30/21 20:59 Last Admin: 03/04/21 21:17 Dose: 40 mg Documented by: Sertraline HCl (Sertraline Hcl 50 Mg Tablet) 50 mg PO QAM [facility] Stop: 03/24/21 08:59 Last Admin: 03/05/21 07:29 Dose: 50 mg Documented by: Terazosin HCl (Terazosin Hcl 1 Mg Cap) 1 mg PO [facility] Stop: 03/23/21 20:59 Last Admin: 03/04/21 21:27 Dose: 1 mg Documented by: Topiramate (Topiramate 25 Mg Tab) 12.5 mg PO BID [facility] Stop: 03/23/21 20:59 Last Admin: 03/05/21 07:27 Dose: 12.5 mg Documented by: (1) Fall Encounter type: initial encounter Qualified Code(s): W19.XXXA - Unspecified fall, initial encounter
--- NOTE | 2021-03-05 17:23 | Discharge Summary ---
Date of Service March 05, 2021 Admission HPI Per Admitting Provider This is a 75-year-old female who has significant past medical history of morbid obesity, insulin-dependent T2DM, diabetic polyneuropathy, nephropathy, CKD stage IV, CAD, chronic HFpEF, HTN, HLD, secondary hyperparathyroidism, bilateral lymphedema, mood disorder who presents ED today via EMS with increasing weakness, pain and frequent falls at home since recent d/c on 02/16/21. Pt was admitted 02/13-02/16/21 with acute metabolic encephalopathy, Enterobacter UTI, acute on chronic CHF with preserved EF, and stage III pressure ulcers of the left buttock and right posterior thigh. UTI initially treated with Zosyn then p t was switched to oral Ciprofloxacin. CHF treated with IV lasix then changed back to daily oral Lasix regimen. Pt has followed with [facility] and wound care previously for the pressure ulcers. Since being discharged, she has had home health services, but per EMS, they have been called to her residence multiples times due to falls. Today, she was brought in via EMS for pain in her right shoulder, knees, and back as well as worsening weakness. Pt seems to have trouble recalling details from her time at home but does report that home health has been coming. However, she reports that her medications were misplaced (?) so she is unsure if she has been taking them consistently/correctly. She does report some difficulty getting around at home. She also complaints of pain in her buttock and some loose stools. Reports that she has not been eating or drinking as much as she probably should be. Denies fevers, chills. Admission Exam Per Admitting Provider Constitutional: WD/WN, vitals as above no acute distress Eyes: + anicteric sclerae Neck: trachea midline Respiratory: no respiratory distress and no labored breathing Auscultation: lungs clear to auscultation bilaterally; no rales, no rhonchi and no wheezes Cardiovascular: Rate/Rhythm: regular rate and regular rhythm Gastrointestinal (Abdomen): Inspection/Auscultation: normal bowel sounds; abdomen not distended Percussion/Palpation: abdomen soft; abdomen nontender Musculoskeletal: Head/Neck/Chest: normocephalic, head atraumatic and neck supple Neurologic: moves all extremities Speech / Cognition: normal speech Psychiatric: A+Ox3, euthymic affect Principal Diagnosis Acute UTI, MAGGIE on CKD, recurrent falls, hypertension, type 2 diabetes on insulin, stage III sacral decubiti ulcer Discharge Exam Constitutional well developed, well nourished and + obese; not ill appearing Eyes PERRL, conjunctivae normal, anicteric sclerae ENMT external ear and nose normal, oropharynx normal Neck trachea midline, no thyromegaly Respiratory no respiratory distress Auscultation: + diminished lung sounds; no crackles Cardiovascular Rate/Rhythm: regular rate and regular rhythm Heart Sounds: no murmur Extremities: + edema (Trace edema bilaterally) Gastrointestinal (Abdomen) Inspection/Auscultation: + abdomen distended and normal bowel sounds Percussion/Palpation: abdomen soft; abdomen nontender Lymphatic no cervical or axillary lymphadenopathy Discharge Data Allergies Allergy/AdvReac Type Severity Reaction Status Date / Time loratadine Allergy Intermediate MOUTH Verified 02/21/21 16:24 SWELLING diphenhydramine AdvReac Intermediate GMG-SHAKING Verified 02/21/21 16:24 [From Benadryl] & SWEATING metformin AdvReac Intermediate causes Verified 02/21/21 16:24 kidney problems Sulfa (Sulfonamide AdvReac Intermediate Unknown Verified 02/21/21 16:24 Antibiotics) sulfamethoxazole AdvReac Intermediate GMG-RENAL Verified 02/21/21 16:24 COMPLICATIONS trimethoprim AdvReac Intermediate GMG-RENAL Verified 02/21/21 16:24 COMPLICATIONS Pzsxsej-Owj-Ikx Reductase AdvReac Mild Gastrointestinal Verified 02/21/21 16:24 Inhibitor Upset Consultations 02/21/21 16:42 ED Decision to Admit Stat 02/21/21 20:56 Consult Nephrology Routine 02/24/21 11:46 Consult Infectious Diseases Routine 03/02/21 10:39 Consult Orthopedic Surgery Routine Ordered Studies 02/21/21 15:24 CT abd pelvis wo con Stat Hospital Course (1) Acute UTI: Persistent symptoms with repeat reinfection. Completed 7 day course of abx per ID recs. Removed roldan. Suprapubic discomfort has resolved. Repeat UA neg. (2) Acute kidney injury superimposed on CKD: Creatinine was 6 on admission in setting of dehydration (nausea, vomiting and diarrhea after returning home) and repeat infection. Restarted Lasix and lisinopril and doing well. Follow BMP and blood pressure. (3) Fall: recurrent falls 2/2 ongoing weakness and physical deconditioning. TRansfer to SNF as a transition to home. (4) Stage III pressure ulcer: Cont inpatient and outpatient wound care and pain meds as needed. (5) CHF (congestive heart failure): chronic, appears euvolemic at this point. Cont home diuretics. (6) Hypertension: at goal, Cont amlodipine, coreg and hydralazine and lasix (7) Insulin dependent diabetes mellitus: At goal. cont glargine and novolog for carb coverage and correction factor. 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 Chronic abdominal pain intermittent. Encouraged to eat small frequent meals and avoid creamy or acidic foods that may trigger her stomach to be upset. (8) DVT prophylaxis: Heparin Full Code Dispo-to rehab/SNF tomorrow. Nallely Iyer DO [facility] [address] Hospitalist Total Time Total Time Spent Total Time Spent (In Minutes): 40 minutes Total Time Includes: Examination of the Patient, Discharge Planning, Medication Reconciliation and Communication With Other Providers Discharge Plan Discharge Items Patient Disposition: Transfer Halfway Fac Reason For Visit: MAGGIE, WEAKNESS Discharge Diagnosis: Acute UTI, MAGGIE on CKD, recurrent falls, hypertension, type 2 diabetes on insulin, stage III sacral decubiti ulcer Condition on Discharge: Fair Activity: Resume your previous activity Non-emergency contact: Primary Care Provider Call non-emergency contact if: you have any medication questions and your symptoms worsen Follow-up/Referrals: Eric Bullock DO [Primary Care Provider] - (Date & Time 03/04/2021 1:40 PM Provider Eric Bullock DO [facility] ) Diet: Carb Consistent or DM2 Addtl Attending Provider Instructions: Please take precautions to avoid fall Try to drink more fluid to improve your kidney function Your Cipro has been discontinued-start Cipro you have another attack of UTI Please have your basic metabolic panel checked in about 1 week and reported to the primary care physician. Pending Studies at Discharge: No Stand-Alone Forms: My [employer] Skilled Items Patient informed of condition?: Yes DNR: No Discharge Level of Care: Skilled Communicable Disease: No Discharge Prognosis: Stable Lines: None Urinary Catheter: No Medications and DC Order Prescriptions: Continued clonazepam 1 mg tablet 1 mg PO HS RF: 0 oxycodone-acetaminophen [Percocet] 5-325 mg tablet 1 tab PO TID PRN (Reason: Pain) RF: 0 isosorbide mononitrate 120 mg tablet extended release 24 hr 120 mg PO QAM RF: 0 polyethylene glycol 3350 [Miralax] 17 gram/dose Powder 17 g PO QAM RF: 0 topiramate 25 mg tablet 25 mg PO BID RF: 0 terazosin 1 mg capsule 1 mg PO HS RF: 0 amlodipine 10 mg tablet 10 mg PO QAM RF: 0 pantoprazole 40 mg tablet,delayed release (DR/EC) 40 mg PO QAM RF: 0 gabapentin 300 mg capsule 300 mg PO TID RF: 0 fluticasone propionate 50 mcg/actuation spray,suspension 2 spray intranasal QAM RF: 0 sertraline 50 mg tablet 50 mg PO QAM RF: 0 insulin lispro [Humalog KwikPen Insulin] 100 unit/mL insulin pen 10 unit subcut TIDM RF: 0 rosuvastatin 40 mg tablet 40 mg PO HS RF: 0 Lantus Solostar U-100 Insulin 100 unit/mL (3 mL) insulin pen 20 unit subcut BID RF: 0 baclofen 10 mg tablet 5 mg PO BID PRN (Reason: Pain) RF: 0 diclofenac sodium 1 % gel 1 ea TOPICAL BID PRN (Reason: Pain) RF: 0 famotidine 20 mg tablet 20 mg PO DAILY RF: 0 furosemide 40 mg tablet 40 mg PO QAM RF: 0 ondansetron HCl 8 mg tablet 8 mg PO TID PRN (Reason: Nausea) RF: 0 nystatin 100,000 unit/gram Powder 1 applic TOPICAL TID PRN (Reason: Skin Irritation) RF: 0 Lactinex 1 million cell Tablet,Chewable 1 tab PO DAILY RF: 0 potassium chloride [Klor-Con M10] 10 mEq tablet,ER particles/crystals 10 meq PO DAILY RF: 0 lisinopril 10 mg Tablet 10 mg PO QAM Qty: 30 RF: 0 zinc oxide 40 % Ointment 1 applic TOPICAL DIRECTED PRN (Reason: BUTTOCK EXCORIATION) RF: 0 aspirin 81 mg Tablet,Delayed Release (Dr/Ec) 81 mg PO DAILY RF: 0 carvedilol 6.25 mg Tablet 6.25 mg PO AMHS Qty: 60 RF: 0 Changed hydralazine 100 mg tablet 50 mg PO TID Qty: 0 RF: 0 Discontinued ciprofloxacin HCl 500 mg Tablet 500 mg PO Q12 Qty: 6 RF: 0 Discharge Orders: Discharge Order (Routine); Ordered 03/05/21 Ordered By: Janette Phillips Admission Data Admit Date/Time: 02/21/21 17:12 Attending Provider: Janette Phillips Admit Provider: Roni Francisoc Primary Care Provider: Eric Bullock Other Providers: Roni Francisco ; Stew Linn ; Trip Guzman ; Je Stewart ; Esteban Borden I. ; Bishnu Rogers II ; Radha Caro ; Hamlet Munoz ; [facility] ; [place] ; Arron Chaves ; Nallely Iyer Other Interventions: Discharge Summary Assessment (RN) Last Done: 03/05/21 16:55
--- NOTE | 2021-03-08 11:23 | Communication Note ---
Date of Service: March 08, 2021 Urine Culture + Enterococcus faecium VRE; sensitive to daptomycin and gentamicin. Case management, Flores was able to contact [facility]. Will need Rx for antibiotic and for midline IV placement. Spoke with pharmacy for assistance in daptomycin dosing with adjusted patient's weight and creatinine clearance. Recommend 575 mg IV every 24 hours x14 days. Paper Rx written for Daptomycin 575mg IV Q24hs x 14 days. Dx VRE UTI. Electronic Rx sent to [place] pharmacy for Daptomycin also. Will order initial CMP and CK then CMP and CK once week week x 2 weeks. Hold rosuvastatin x 2 weeks. Attending addendum: Recent admission in [facility] with persistent symptoms and recurrent UTI. Completed 7 days course of antibiotic as per ID recommendation Repeat UA examination following antibiotic initially did not show any organism but later on it was reported to have VRE infection She has been in [facility] and appropriate arrangements were made so that she could get intravenous daptomycin for 14 days with placement of a midline in that facility Agree with plan as above. Dr Rosie Phillips
== END 2021-03-05 17:16 | DRG 682 ==
LOC: ED 13:44 → 3W 17:12 → SUATTDRO 17:12 → 3W 19:24

== ENCOUNTER 2021-08-08 14:41 | Inpatient (IN) ==
--- NOTE | 2021-08-08 14:51 | Emergency Department Note ---
Impression & Plan Acute alteration in mental status ED Provider Note NAME: DONNA CERNA AGE: 76 SEX: F : 1945 ARRIVES VIA: Ambulance INFORMANT: Patient, EMS ED PROVIDER(S): Ambrose Molina DO CHIEF COMPLAINT: Altered mental status HPI: The patient is a 76-year-old female who presented to the emergency department for an evaluation of altered mental status. The patient was last seen by family on Wednesday. She does live by herself. She was last seen by home health last week. The patient was found today confused. She does not answer questions appropriately. Her last known well time is unknown at this time. The patient arrived via ambulance. It is unclear if the patient had any trauma. It is unclear if she has been taking her medications. It is unclear if she recently saw her family doctor. Additional history was obtained from the prehospital personnel. The patient was covered in urine and stool according to the prehospital personnel. ROS: See above HPI for pertinent positives & negatives. A total of 10 systems reviewed and were otherwise negative. PAST MEDICAL HISTORY: See Below PAST SURGICAL HISTORY: See Below FAMILY HISTORY: See Below SOCIAL HISTORY: See Below HOME MEDICATIONS: See Below ALLERGIES: See Below VITALS: See Below PHYSICAL EXAMINATION: GENERAL: The patient is resting comfortably. She awakens easily to verbal commands. She seems somewhat confused EYES: The conjunctivae are clear. The pupils are round and reactive. EARS, NOSE, MOUTH AND THROAT: The nose is without any evidence of any deformity. Mucous membranes are moist. NECK: The neck is nontender and supple. RESPIRATORY: Normal respiratory effort is noted there is no evidence of wheezing rhonchi or rales CARDIOVASCULAR: Regular rate and rhythm noted there no murmurs rubs or gallops normal S1 normal S2. GASTROINTESTINAL: The abdomen is soft. Abdomen is nontender. MUSCULOSKELETAL/EXTREMITIES: There is no evidence of gross deformity full range of motion is noted in the hips and shoulders. SKIN: There is pedal edema bilaterally. Skin is warm and dry. There is erythema in both groins. NEUROLOGIC: Patient is awake. She answers questions repetitively and does not appear to be oriented to place or situation. She does respond to her name. She is moving all extremities symmetrically. MEDICAL DECISION MAKING: The patient is a 76-year-old female who presented to emergency department for an evaluation of altered mental status. She was last seen Wednesday by family members. She was found today covered in stool and urine. She was felt to be not able to care for herself and was brought to the emergency department. I am not familiar with the patient. I tried to call the patient's sisters to determine what level of care she required at home. Neither sister was able to answer the phone. I reevaluated the patient multiple times. She does not appear to be in distress. She was not febrile. I discussed the patient's laboratory and radiographic studies with her. She continues to be confused and inappropriate. For this reason I [facility] will evaluate the patient in the emergency department for further management and disposition. Triage Nursing notes reviewed. Prior medical records reviewed Vital Signs: reviewed and remarkable for no significant abnormalities Differential diagnosis: Infection, hypoglycemia, electrolyte abnormalities, overdose, toxicologic, cardiac sources, intracerebral event, neurologic, trauma, as well as other pathologies. ER treatment provided: See below Diagnostics interpreted by me: ECG: EKG was obtained in the emergency department. My interpretation is normal sinus rhythm at 74 bpm. There was no ectopy. There is no acute ST segment abnormalities noted. This was compared to a tracing from February 212020. No changes were noted. Cardiac Monitoring: An order was placed for continuous cardiac monitoring. The monitor shows a rate of 64 bpm with sinus rhythm. Laboratory studies: As stated above and show below. Imaging studies: See below Consultation(s): I discussed this case with Denisha [facility] will [facility] the patient in the emergency department. Past Med/Surg History Medical History Acute UTI Adjustment disorder CAD (coronary artery disease) CHF (congestive heart failure) CKD (chronic kidney disease) CKD (chronic kidney disease), stage III Encephalopathy acute GERD (gastroesophageal reflux disease) HLD (hyperlipidemia) Hypertension Hyponatremia IBS (irritable bowel syndrome) Insulin dependent diabetes mellitus Mood disorder Morbid obesity Paroxysmal A-fib Pressure ulcer Surgical History H/O hernia repair H/O: H/O: hysterectomy S/P cholecystectomy Family History Brother Prostate cancer Father Diabetes Social History Smoking Status: Never smoker Second Hand Exposure: No; Hx Alcohol Use: No Hx Substance Use: No Preferred Language: U[place] Communication Ability: Impaired Visual Impairment: No Limitations [employer] Observer Required: No Beliefs That Will Affect Care: None marital status: / Current Living Situation: Family Feels Safe at Home: Yes Assistive Devices: Wheelchair Allergies Allergies Allergy/AdvReac Type Severity Reaction Status Date / Time loratadine Allergy Intermediate MOUTH Verified 08/08/21 15:20 SWELLING diphenhydramine AdvReac Intermediate GMG-SHAKING Verified 08/08/21 15:20 [From Benadryl] & SWEATING metformin AdvReac Intermediate causes Verified 08/08/21 15:20 kidney problems Sulfa (Sulfonamide AdvReac Intermediate Unknown Verified 08/08/21 15:20 Antibiotics) sulfamethoxazole AdvReac Intermediate GMG-RENAL Verified 08/08/21 15:20 COMPLICATIONS trimethoprim AdvReac Intermediate GMG-RENAL Verified 08/08/21 15:20 COMPLICATIONS Aehbdus-OIG-BdB Reductase AdvReac Mild Gastrointestinal Verified 08/08/21 15:20 Inhibitor Upset [Veisjqs-Uqg-Qjp Reductase Inhibitor] Home Meds Home Medications Medication Instructions Recorded Confirmed gabapentin 300 mg capsule 300 mg PO TID 02/14/19 08/08/21 insulin glargine 100 unit/mL (3 20 unit SUBCUT BID 02/14/19 08/08/21 mL) subcutaneous pen (Lantus Solostar U-100 Insulin) pantoprazole 40 mg tablet,delayed 40 mg PO QAM 02/14/19 08/08/21 release sertraline 50 mg tablet 50 mg PO QAM 02/14/19 08/08/21 terazosin 1 mg capsule 1 mg PO HS 02/14/19 08/08/21 topiramate 25 mg tablet 25 mg PO BID 02/14/19 08/08/21 clonazepam 1 mg tablet 1 mg PO HS 03/02/19 08/08/21 isosorbide mononitrate 120 mg 120 mg PO QAM 04/23/19 08/08/21 tablet,extended release 24 hr oxycodone-acetaminophen 5 mg-325 1 tab PO TID PRN 04/23/19 08/08/21 mg tablet (Percocet) polyethylene glycol 3350 17 17 g PO QAM 04/23/19 08/08/21 gram/dose oral powder (Miralax) baclofen 10 mg tablet 5 mg PO BID PRN 08/16/20 08/08/21 diclofenac sodium 1 % topical gel 1 ea TOPICAL BID PRN 08/16/20 08/08/21 furosemide 40 mg tablet 40 mg PO QAM 08/16/20 08/08/21 nystatin 100,000 unit/gram topical 1 applic TOPICAL TID PRN 10/27/20 08/08/21 powder potassium chloride 10 mEq 10 meq PO DAILY 12/05/20 08/08/21 tablet,extended release(part/cryst) (Klor-Con M) aspirin 81 mg tablet,delayed 81 mg PO DAILY 02/13/21 08/08/21 release zinc oxide 40 % topical ointment 1 applic TOPICAL DIRECTED PRN 02/13/21 08/08/21 Lactobacillus acidoph-L.bulgaricus 1 tab PO TID 05/02/21 08/08/21 1 million cell chewable tablet (Lactinex) amlodipine 10 mg tablet 10 mg PO QAM 05/02/21 08/08/21 cholecalciferol (vitamin D3) 25 25 mcg PO DAILY 05/02/21 08/08/21 mcg (1,000 unit) tablet famotidine 20 mg tablet 20 mg PO DAILY 05/02/21 08/08/21 fenofibrate nanocrystallized 145 145 mg PO UD 05/02/21 08/08/21 mg tablet (Tricor) fluticasone propionate 50 2 spray INTRANASAL DAILY 05/02/21 08/08/21 mcg/actuation nasal spray,suspension furosemide 40 mg tablet 20 mg PO .EVERY AFTERNOON 05/02/21 08/08/21 hydralazine 50 mg tablet 50 mg PO TID 05/02/21 08/08/21 insulin lispro 100 unit/mL 10 unit SUBCUT TIDM 05/02/21 08/08/21 subcutaneous pen (Humalog KwikPen (U-100) Insulin) nitroglycerin 0.4 mg sublingual 0.4 mg SUBLINGUAL UD PRN 05/02/21 08/08/21 tablet (Nitrostat) ondansetron HCl 4 mg tablet 4 mg PO Q6 PRN 05/02/21 08/08/21 Previous Rx's Medication Instructions Recorded lisinopril 10 mg tablet 10 mg PO QAM #30 tab 12/08/20 carvedilol 6.25 mg tablet 6.25 mg PO AMHS #60 tab 02/16/21 Results & Data (ED) Vital Signs Vital Signs - 24 hr 08/08/21 15:00 08/08/21 15:23 08/08/21 15:30 Temperature 37.0 C Temperature Source Oral Pulse Rate 73 77 74 Pulse Rate from SpO2 Sensor 77 72 Respiratory Rate 18 22 Respiratory Effort / Characteristics Non-Labored Respiratory Depth Normal Respiratory Pattern Regular Blood Pressure 122/83 Blood Pressure Mean 96 Blood Pressure Position Sitting Pulse Oximetry 98 99 100 Oxygen Delivery Method Room Air Sepsis Recent Fever Within 48 Hours No Sepsis New/Unexplained Change in Mental Status Yes Sepsis Action Taken by Nursing No Action Required 08/08/21 16:00 08/08/21 16:42 08/08/21 17:00 Temperature Temperature Source Pulse Rate 73 72 64 Pulse Rate from SpO2 Sensor 73 73 60 Respiratory Rate 18 17 Respiratory Effort / Characteristics Respiratory Depth Respiratory Pattern Blood Pressure Blood Pressure Mean Blood Pressure Position Pulse Oximetry 98 95 98 Oxygen Delivery Method Sepsis Recent Fever Within 48 Hours Sepsis New/Unexplained Change in Mental Status Sepsis Action Taken by Prison Medications Current Medication List: was personally reviewed by me Laboratory Data Attestation: I reviewed the patient's lab results. Result diagrams: 08/08/21 16:14 08/08/21 16:14 Lab Results 08/08/21 08/08/21 08/08/21 Range/Units 15:15 15:30 16:14 WBC 10.52 (4.8-10.8) K/uL RBC 3.11 L (4.2-5.4) M/uL Hgb 9.3 L (12.0-16.0) g/dL Hct 28.8 L (37-47) % MCV 92.6 (80-100) fL MCH 29.9 (25-34) pg MCHC 32.3 (32-36) g/dL RDW Std Deviation 47.1 H (36.4-46.3) fL RDW Coeff of Isabel 14.0 (11.5-14.5) % Plt Count 212 (130-400) K/uL MPV 9.9 (7.4-10.4) fL Immature Gran % (Auto) 0.4 % Neut % (Auto) 69.0 % Lymph % (Auto) 21.9 % [place] % (Auto) 6.2 % Eos % (Auto) 2.3 % Baso % (Auto) 0.2 % Neut # (Auto) 7.27 H (1.4-6.5) K/uL Lymph # (Auto) 2.30 (1.2-3.4) K/uL [place] # (Auto) 0.65 H (0.11-0.59) K/uL Eos # (Auto) 0.24 (0-0.5) K/uL Baso # (Auto) 0.02 (0-0.2) K/uL Immature Gran # (Auto) 0.04 H (0.00-0.02) K/uL PT INR APTT PTT Ratio Sodium (136-145) mmol/L Potassium (3.5-5.1) mmol/L Chloride (98-107) mmol/L Carbon Dioxide (21-32) mmol/L Anion Gap (3-11) BUN (7-18) mg/dl Creatinine (0.6-1.2) mg/dl Est Cr Clr Drug Dosing Est GFR ( Amer) ml/min Est GFR (Non-Af Amer) ml/min BUN/Creatinine Ratio (10-20) Glucose (70-99) mg/dl Lactate (0.4-2.0) mmol/L Calcium (8.5-10.1) mg/dl Magnesium (1.8-2.4) mg/dl Total Bilirubin (0.2-1) mg/dl AST (15-37) U/L ALT (12-78) Alkaline Phosphatase (45-117) U/L Total Creatine Kinase (26-192) U/L CK-MB (CK-2) (0.5-3.6) ng/ml CK/CKMB % Calc (0-3.0) Troponin I (0-0.045) ng/ml Total Protein (6.4-8.2) gm/dl Albumin (3.4-5.0) gm/dl Globulin (2.5-4.0) gm/dl Albumin/Globulin Ratio (0.9-2) Procalcitonin (0-0.5) ng/ml TSH (0.300-4.500) uIu/ml Specimen Hemolysis Urine Color Yellow Urine Appearance Clear (Clear) Urine pH 8.0 H (4.5-7.5) Ur Specific [place] 1.009 (1.000-1.030) Urine Protein Negative (Negative) Urine Glucose (UA) Negative (Negative) Urine Ketones Negative (Negative) Urine Blood Negative (Negative) Urine Nitrite Negative (Negative) Urine Bilirubin Negative (Negative) Urine Urobilinogen Negative (Negative) Ur Leukocyte Esterase Negative (Negative) SARS-CoV-2, RNA, NAAT NEGATIVE (NEGATIVE) 08/08/21 08/08/21 08/08/21 Range/Units 16:14 16:14 16:14 WBC (4.8-10.8) K/uL RBC (4.2-5.4) M/uL Hgb (12.0-16.0) g/dL Hct (37-47) % MCV (80-100) fL MCH (25-34) pg MCHC (32-36) g/dL RDW Std Deviation (36.4-46.3) fL RDW Coeff of Isabel (11.5-14.5) % Plt Count (130-400) K/uL MPV (7.4-10.4) fL Immature Gran % (Auto) % Neut % (Auto) % Lymph % (Auto) % [place] % (Auto) % Eos % (Auto) % Baso % (Auto) % Neut # (Auto) (1.4-6.5) K/uL Lymph # (Auto) (1.2-3.4) K/uL [place] # (Auto) (0.11-0.59) K/uL Eos # (Auto) (0-0.5) K/uL Baso # (Auto) (0-0.2) K/uL Immature Gran # (Auto) (0.00-0.02) K/uL PT Cancelled INR Cancelled APTT Cancelled PTT Ratio Cancelled Sodium 141 (136-145) mmol/L Potassium 4.6 (3.5-5.1) mmol/L Chloride 108 H (98-107) mmol/L Carbon Dioxide 26 (21-32) mmol/L Anion Gap 7.0 (3-11) BUN 53 H (7-18) mg/dl Creatinine 2.23 H (0.6-1.2) mg/dl Est Cr Clr Drug Dosing Not Reportable Est GFR ( Amer) 24.0 ml/min Est GFR (Non-Af Amer) 20.7 ml/min BUN/Creatinine Ratio 23.7 H (10-20) Glucose 142 H (70-99) mg/dl Lactate 0.8 (0.4-2.0) mmol/L Calcium 8.7 (8.5-10.1) mg/dl Magnesium 2.4 (1.8-2.4) mg/dl Total Bilirubin 0.5 (0.2-1) mg/dl AST 31 (15-37) U/L ALT 21 (12-78) Alkaline Phosphatase 81 (45-117) U/L Total Creatine Kinase 208 H (26-192) U/L CK-MB (CK-2) 1.8 (0.5-3.6) ng/ml CK/CKMB % Calc 0.9 (0-3.0) Troponin I < 0.015 (0-0.045) ng/ml Total Protein 7.1 (6.4-8.2) gm/dl Albumin 2.5 L (3.4-5.0) gm/dl Globulin 4.6 H (2.5-4.0) gm/dl Albumin/Globulin Ratio 0.5 L (0.9-2) Procalcitonin (0-0.5) ng/ml TSH 0.955 (0.300-4.500) uIu/ml Specimen Hemolysis Urine Color Urine Appearance (Clear) Urine pH (4.5-7.5) Ur Specific [place] (1.000-1.030) Urine Protein (Negative) Urine Glucose (UA) (Negative) Urine Ketones (Negative) Urine Blood (Negative) Urine Nitrite (Negative) Urine Bilirubin (Negative) Urine Urobilinogen (Negative) Ur Leukocyte Esterase (Negative) SARS-CoV-2, RNA, NAAT (NEGATIVE) 08/08/21 Range/Units 16:14 WBC (4.8-10.8) K/uL RBC (4.2-5.4) M/uL Hgb (12.0-16.0) g/dL Hct (37-47) % MCV (80-100) fL MCH (25-34) pg MCHC (32-36) g/dL RDW Std Deviation (36.4-46.3) fL RDW Coeff of Isabel (11.5-14.5) % Plt Count (130-400) K/uL MPV (7.4-10.4) fL Immature Gran % (Auto) % Neut % (Auto) % Lymph % (Auto) % [place] % (Auto) % Eos % (Auto) % Baso % (Auto) % Neut # (Auto) (1.4-6.5) K/uL Lymph # (Auto) (1.2-3.4) K/uL [place] # (Auto) (0.11-0.59) K/uL Eos # (Auto) (0-0.5) K/uL Baso # (Auto) (0-0.2) K/uL Immature Gran # (Auto) (0.00-0.02) K/uL PT INR APTT PTT Ratio Sodium (136-145) mmol/L Potassium (3.5-5.1) mmol/L Chloride (98-107) mmol/L Carbon Dioxide (21-32) mmol/L Anion Gap (3-11) BUN (7-18) mg/dl Creatinine (0.6-1.2) mg/dl Est Cr Clr Drug Dosing Est GFR ( Amer) ml/min Est GFR (Non-Af Amer) ml/min BUN/Creatinine Ratio (10-20) Glucose (70-99) mg/dl Lactate (0.4-2.0) mmol/L Calcium (8.5-10.1) mg/dl Magnesium (1.8-2.4) mg/dl Total Bilirubin (0.2-1) mg/dl AST (15-37) U/L ALT (12-78) Alkaline Phosphatase (45-117) U/L Total Creatine Kinase (26-192) U/L CK-MB (CK-2) (0.5-3.6) ng/ml CK/CKMB % Calc (0-3.0) Troponin I (0-0.045) ng/ml Total Protein (6.4-8.2) gm/dl Albumin (3.4-5.0) gm/dl Globulin (2.5-4.0) gm/dl Albumin/Globulin Ratio (0.9-2) Procalcitonin 0.05 (0-0.5) ng/ml TSH (0.300-4.500) uIu/ml Specimen Hemolysis Urine Color Urine Appearance (Clear) Urine pH (4.5-7.5) Ur Specific [place] (1.000-1.030) Urine Protein (Negative) Urine Glucose (UA) (Negative) Urine Ketones (Negative) Urine Blood (Negative) Urine Nitrite (Negative) Urine Bilirubin (Negative) Urine Urobilinogen (Negative) Ur Leukocyte Esterase (Negative) SARS-CoV-2, RNA, NAAT (NEGATIVE) Imaging Data Radiologist's Impression: Cervical Spine CT 08/08/21 14:43 CT cervical spine wo con CLINICAL HISTORY: 76 years-old Female with AMS. Acute neck injury COMPARISON: Head CT of same day, CT cervical spine 04/19/2019 TECHNIQUE: Multiple axial CT images of the cervical spine were obtained without contrast. A dose lowering technique was utilized adhering to the principles of ALARA. FINDINGS: Demineralized appearance of the bones. Moderate to severe multilevel intervertebral disc space narrowing has progressed from comparison. Healed c hronic fracture deformity involves the left lateral mass of C1. The atlantoaxial interval is normal at 2 mm, previously 4 mm. Moderate to severe multilevel facet arthrosis. Posterior disc osteophyte complex formations are noted at several levels, largest at C6-C7. No acute fracture or subluxation is identified. The mastoid air cells and middle ear cavities appear clear. Multilevel neural foraminal narrowing.Severe degeneration with chronic remodeling of the left temporomandibular joint. Severe osteoarthritis of the right glenohumeral joint. The lung apices appear clear. Multinodular thyroid with numerous parenchymal calcifications. No prevertebral edema. Calcified plaque of the carotid bulbs. IMPRESSION: 1. No acute fracture or subluxation. 2. Healed chronic fracture deformity of the left lateral mass of C1. ACT 112: Negative or not required by law. The above report was generated using voice recognition software. It may contain grammatical, syntax or spelling errors. Electronically signed by: Dawson Gorman M.D. 08/08/2021 5:08 PM Chest X-Ray 08/08/21 14:43 XR chest 1V portable HISTORY: 76 years-old Female SEPSIS acute sepsis COMPARISON: Chest radiograph 02/21/2021 TECHNIQUE: Semierect portable AP view of the chest FINDINGS: The cardiomediastinal and hilar silhouettes are within normal limits. Calcifications of the mitral annulus. Calcified plaque of the thoracic aorta. No pneumothorax, pleural effusion, airspace consolidation or overt pulmonary edema. Mild nonspecific interstitial coarsening. Degenerative changes of the shoulders and spine. Chronic calcifications adjacent to the left humeral head. Surgical clips of the abdominal right upper quadrant. IMPRESSION: Cardiomegaly with chronic coarsening of the interstitium. ACT 112: Negative or not required by law. The above report was generated using voice recognition software. It may contain grammatical, syntax or spelling errors. Electronically signed by: Dawson Gorman M.D. 08/08/2021 4:[address] 08/08/21 14:43 CT head/brain wo con CLINICAL HISTORY: 76 years-old Female with AMS. Acutely altered mental status TECHNIQUE: Multiple axial CT images of the head were obtained without contrast. A dose lowering technique was utilized adhering to the principles of ALARA. CT DOSE: 1381.27 mGy.cm COMPARISON: CT cervical spine of same day, head CT 02/13/2021 FINDINGS: No acute intracranial hemorrhage, midline shift, intracranial mass, hydrocephalus, territorial ischemia or abnormal extra-axial collection. Mild age-related involutional changes. Study is motion degraded. Senescent calcifications of the basal ganglia. Mild white matter hypodensities suggest chronic microvascular ischemic disease. The calvarium is intact. Prior bilateral lens repair. The paranasal sinuses, mastoid air cells, and middle ear cavities are clear. IMPRESSION: No acute intracranial abnormality. ACT 112: Negative or not required by law. The above report was generated using voice recognition software. It may contain grammatical, syntax or spelling errors. Electronically signed by: Dawson Gorman M.D. 08/08/2021 4:55 PM Discharge Plan Visit Data Chief Complaint: Altered Mental Status ED Provider: Ambrose Molina Discharge Problem: Acute alteration in mental status Patient Disposition: Admitted As Inpatient Forms Stand Alone Forms: [facility] Prescriptions Prescriptions: No Action clonazepam 1 mg tablet 1 mg PO HS RF: 0 oxycodone-acetaminophen [Percocet] 5-325 mg tablet 1 tab PO TID PRN (Reason: Pain) RF: 0 isosorbide mononitrate 120 mg tablet extended release 24 hr 120 mg PO QAM RF: 0 polyethylene glycol 3350 [Miralax] 17 gram/dose Powder 17 g PO QAM RF: 0 topiramate 25 mg tablet 25 mg PO BID RF: 0 terazosin 1 mg capsule 1 mg PO HS RF: 0 pantoprazole 40 mg tablet,delayed release (DR/EC) 40 mg PO QAM RF: 0 gabapentin 300 mg capsule 300 mg PO TID RF: 0 sertraline 50 mg tablet 50 mg PO QAM RF: 0 Lantus Solostar U-100 Insulin 100 unit/mL (3 mL) insulin pen 20 unit subcut BID RF: 0 baclofen 10 mg tablet 5 mg PO BID PRN (Reason: Pain) RF: 0 diclofenac sodium 1 % gel 1 ea TOPICAL BID PRN (Reason: Pain) RF: 0 furosemide 40 mg tablet 40 mg PO QAM RF: 0 nystatin 100,000 unit/gram Powder 1 applic TOPICAL TID PRN (Reason: Skin Irritation) RF: 0 potassium chloride [Klor-Con M10] 10 mEq tablet,ER particles/crystals 10 meq PO DAILY RF: 0 lisinopril 10 mg Tablet 10 mg PO QAM Qty: 30 RF: 0 zinc oxide 40 % Ointment 1 applic TOPICAL DIRECTED PRN (Reason: BUTTOCK EXCORIATION) RF: 0 aspirin 81 mg Tablet,Delayed Release (Dr/Ec) 81 mg PO DAILY RF: 0 carvedilol 6.25 mg Tablet 6.25 mg PO AMHS Qty: 60 RF: 0 furosemide 40 mg tablet 20 mg PO .EVERY AFTERNOON RF: 0 ondansetron HCl 4 mg tablet 4 mg PO Q6 PRN (Reason: Nausea) RF: 0 hydralazine 50 mg tablet 50 mg PO TID RF: 0 famotidine 20 mg tablet 20 mg PO DAILY RF: 0 amlodipine 10 mg tablet 10 mg PO QAM RF: 0 fluticasone propionate 50 mcg/actuation spray,suspension 2 spray INTRANASAL DAILY RF: 0 Lactinex 1 million cell Tablet,Chewable 1 tab PO TID RF: 0 insulin lispro [Humalog KwikPen Insulin] 100 unit/mL insulin pen 10 unit SUBCUT TIDM RF: 0 fenofibrate nanocrystallized [Tricor] 145 mg Tablet 145 mg PO UD RF: 0 cholecalciferol (vitamin D3) 25 mcg (1,000 unit) Tablet 25 mcg PO DAILY RF: 0 nitroglycerin [Nitrostat] 0.4 mg Tablet, Sublingual 0.4 mg sublingual UD PRN (Reason: Chest Pain) RF: 0 Referrals Referrals: Eric Bullock, [Primary Care Provider] -
[2021-08-08 15:42] LABS: Appearance Urine Clear (Clear); Bilirubin Urine Negative (Negative); Blood Urine Negative (Negative); Color Urine Yellow; Glucose Urine UA Negative (Negative); Ketones Urine Negative (Negative); Leukocyte Esterase Urine Negative (Negative); Nitrite Urine Negative (Negative); Protein Urine Negative (Negative); Specific Gravity Urine 1.009 (1.000-1.030); Urobilinogen Urine Negative (Negative)
--- NOTE | 2021-08-08 16:18 | Electrocardiogram Report ---
Test Reason : Blood Pressure : / mmHG Vent. Rate : 074 BPM Atrial Rate : 074 BPM P-R Int : 164 ms QRS Dur : 078 ms QT Int : 404 ms P-R-T Axes : 053 118 062 degrees QTc Int : 448 ms Poor data quality, interpretation may be adversely affected Normal sinus rhythm Right axis deviation Low voltage QRS Cannot rule out Anterior infarct (cited on or before 21-FEB-2021) Abnormal ECG When compared with ECG of 21-FEB-2021 15:31, QRS axis Shifted right Nonspecific T wave abnormality no longer evident in Inferior leads Nonspecific T wave abnormality no longer evident in Lateral leads Confirmed by Ambrose Sewell ([id number]) on 08/08/2021 4:17:31 PM Referred By: Confirmed By:Ambrose Sewell
--- NOTE | 2021-08-08 16:22 | XRay Report ---
XR chest 1V portable HISTORY: 76 years-old Female SEPSIS acute sepsis COMPARISON: Chest radiograph 02/21/2021 TECHNIQUE: Semierect portable AP view of the chest FINDINGS: The cardiomediastinal and hilar silhouettes are within normal limits. Calcifications of the mitral an nulus. Calcified plaque of the thoracic aorta. No pneumothorax, pleural effusion, airspace consolidat ion or overt pulmonary edema. Mild nonspecific interstitial coarsening. Degenerative changes of the s houlders and spine. Chronic calcifications adjacent to the left humeral head. Surgical clips of the a bdominal right upper quadrant. IMPRESSION: Cardiomegaly with chronic coarsening of the interstitium. ACT 112: Negative or not required by law. The above report was generated using voice recognition software. It may contain grammatical, syntax o r spelling errors. Electronically signed by: Dawson Gorman M.D. 08/08/2021 4:21 PM
[2021-08-08 16:25] LABS: Basophils # (auto) 0.02 K/uL (0-0.2); Basophils % (auto) 0.2 %; Eosinophils # (auto) 0.24 K/uL (0-0.5); Eosinophils % (auto) 2.3 %; Hematocrit (blood only) 28.8 % (37-47); Hemoglobin 9.3 g/dL (12.0-16.0); Immature Granulocytes # (auto) 0.04 K/uL (0.00-0.02); Immature Granulocytes % (auto) 0.4 %; Lymphocytes % (auto) 21.9 %; Mean Corpuscular Hemoglobin 29.9 pg (25-34); Mean Corpuscular Hgb Conc 32.3 g/dL (32-36); Mean Corpuscular Volume 92.6 fL (80-100); Mean Platelet Volume 9.9 fL (7.4-10.4); Monocytes # (auto) 0.65 K/uL (0.11-0.59); Monocytes % (auto) 6.2 %; Neutrophils # (auto) 7.27 K/uL (1.4-6.5); Platelet Count 212 K/uL (130-400); RDW Standard Deviation 47.1 fL (36.4-46.3); Red Blood Count 3.11 M/uL (4.2-5.4); White Blood Count 10.52 K/uL (4.8-10.8)
[2021-08-08 16:54] LABS: Alanine Aminotransferase 21 (12-78); Albumin Level 2.5 gm/dl (3.4-5.0); Aspartate Aminotransferase 31 U/L (15-37); BUN Creatinine Ratio 23.7 (10-20); Blood Urea Nitrogen 53 mg/dl (7-18); Calcium 8.7 mg/dl (8.5-10.1); Carbon Dioxide 26 mmol/L (21-32); Chloride 108 mmol/L (98-107); Est GFR (Non-African American) 20.7 ml/min; Glucose 142 mg/dl (70-99); Magnesium 2.4 mg/dl (1.8-2.4); Potassium 4.6 mmol/L (3.5-5.1); Sodium 141 mmol/L (136-145)
--- NOTE | 2021-08-08 16:56 | CT Scan Report ---
CT head/brain wo con CLINICAL HISTORY: 76 years-old Female with AMS. Acutely altered mental status TECHNIQUE: Multiple axial CT images of the head were obtained without contrast. A dose lowering tech nique was utilized adhering to the principles of ALARA. CT DOSE: 1381.27 mGy.cm COMPARISON: CT cervical spine of same day, head CT 02/13/2021 FINDINGS: No acute intracranial hemorrhage, midline shift, intracranial mass, hydrocephalus, territorial ischem ia or abnormal extra-axial collection. Mild age-related involutional changes. Study is motion degrade d. Senescent calcifications of the basal ganglia. Mild white matter hypodensities suggest chronic kristie rovascular ischemic disease. The calvarium is intact. Prior bilateral lens repair. The paranasal sinuses, mastoid air cells, and m iddle ear cavities are clear. IMPRESSION: No acute intracranial abnormality. ACT 112: Negative or not required by law. The above report was generated using voice recognition software. It may contain grammatical, syntax o r spelling errors. Electronically signed by: Dawson Gorman M.D. 08/08/2021 4:55 PM
[2021-08-08 17:04] LABS: Albumin Globulin Ratio 0.5 (0.9-2); Alkaline Phosphatase 81 U/L (45-117); Bilirubin,Total 0.5 mg/dl (0.2-1); Creatine Kinase 208 U/L (26-192); Creatine Kinase MB 1.8 ng/ml (0.5-3.6); Globulin 4.6 gm/dl (2.5-4.0); Thyroid Stimulating Hormone 0.955 uIu/ml (0.300-4.500); Total Protein 7.1 gm/dl (6.4-8.2); Troponin I < 0.015 ng/ml (0-0.045)
--- NOTE | 2021-08-08 17:09 | CT Scan Report ---
CT cervical spine wo con CLINICAL HISTORY: 76 years-old Female with AMS. Acute neck injury COMPARISON: Head CT of same day, CT cervical spine 04/19/2019 TECHNIQUE: Multiple axial CT images of the cervical spine were obtained without contrast. A dose low ering technique was utilized adhering to the principles of ALARA. FINDINGS: Demineralized appearance of the bones. Moderate to severe multilevel intervertebral disc sp karina narrowing has progressed from comparison. Healed chronic fracture deformity involves the left lat eral mass of C1. The atlantoaxial interval is normal at 2 mm, previously 4 mm. Moderate to severe mul tilevel facet arthrosis. Posterior disc osteophyte complex formations are noted at several levels, la rgest at C6-C7. No acute fracture or subluxation is identified. The mastoid air cells and middle ear cavities appear clear. Multilevel neural foraminal narrowing.Sev ere degeneration with chronic remodeling of the left temporomandibular joint. Severe osteoarthritis o f the right glenohumeral joint. The lung apices appear clear. Multinodular thyroid with numerous pare nchymal calcifications. No prevertebral edema. Calcified plaque of the carotid bulbs. IMPRESSION: 1. No acute fracture or subluxation. 2. Healed chronic fracture deformity of the left lateral mass of C1. ACT 112: Negative or not required by law. The above report was generated using voice recognition software. It may contain grammatical, syntax o r spelling errors. Electronically signed by: Dawson Gorman M.D. 08/08/2021 5:08 PM
--- NOTE | 2021-08-08 17:44 | History & Physical Report ---
Date of Service August 08, 2021 Assessment & Plan (1) Acute alteration in mental status: Plan: Patient is 76 y/o F with PMH morbid obesity, DM II, diabetic polyneuropathy, nephropathy, CKD IV, CAD, chronic diastolic HF, HTN, HLD, secondary hyperparathyroidism, bilateral lymphedema, mood disorder presented to ER for AMS. Reported pt found to be sitting in urine and feces today and confused. Unable to obtain history from patient and sisters are unavailable at this time. In ER patient afebrile, vitals stable. no leukocytosis, negative UA, negative lactate and procalcitonin. CT head and C-spine no acute findings. CXR without acute findings No signs of active underlying infection at this time. Unknown if AMS may be caused by medications or medication misuse Blood culture and urine culture pending Hold clonazepam and oxycodone at this time Monitor NPO for now, reassess tomorrow CBC, BMP in am. (2) Acute on chronic kidney failure: Plan: History CKD III-IV Cr: 2.2. Was 1.3 on 05/12/21 and 2.3 on 05/02/21 Gentle IVF Hold lasix and lisinopril and reassess tomorrow Monitor renal functions. If no improvement consider nephrology consult Left Leg Wound Following with [facility] with wound clinic for wound to left lower leg that has been healing well. Was on doxycycline however that has been switched to Keflex secondary to GI intolerance. Wound culture was +staph aureus Wound does not appear infected Will hold Keflex and change to Rocephin currently Chronic heart failure with preserved ejection fraction: Hold Lasix currently and monitor I&O's and reasses tomorrow CAD: Denies CP Continue carvedilol, isosorbide, aspirin Insulin dependent diabetes mellitus II A1c 6.4 in 04/15/21 Hold minnie insulin Lantus/NovoLog per protocol Obtain A1c in a.m. Hypertension: BP elevated, likely patient not taking medications Continue amlodipine, carvedilol, hydralazine, Terazosin, isosorbide Hold lisinopril with current MAGGIE Chronic anemia: Hgb: 9.3. At baseline Monitor H&H Ambulatory dysfunction: Pt sedentary at baseline Will need PT/OT consult when appropriate Mood disorder: Continue sertraline Hold clonazepam with current AMS DVT Prophylaxis SCDs Full Code as unable to discuss with patient or patient's sister Follows with Dr Bullock for routine care Pt was seen and care coordinated with Dr Baez. See addendum History of Present Illness Chief Complaint: AMS Primary Care Provider: Eric Bullock DO Patient is 76 y/o F with PMH morbid obesity, DM II, diabetic polyneuropathy, nephropathy, CKD IV, CAD, chronic diastolic HF, HTN, HLD, secondary hyperparathyroidism, bilateral lymphedema, mood disorder presented to ER for AMS. History obtained from ER staff. Attempted calling sisters phone but goes straight to voicemail. Unknown if pt took medicines today or if she is taking medications appropriately. It is reported patient was brought from home today for reported altered mental status. ER reports that EMS had stated patient was found to be covered in stool and urine. Patient reports that she lives with her sisters. Outpatient notes reviewed and report patient is very sedentary at baseline. She is following with wound clinic for wound to left lower leg that has been healing. She initially was on doxycycline however that has been switched to Keflex. It is unclear patient has been taking this. Unable to obtain any further history from patient as she is confused In ER patient afebrile, vitals stable. no leukocytosis, negative UA, negative lactate and procalcitonin. CT head and C-spine no acute findings. CXR without acute findings Allergies Allergy/AdvReac Type Severity Reaction Status Date / Time loratadine Allergy Intermediate MOUTH Verified 08/08/21 15:20 SWELLING diphenhydramine AdvReac Intermediate GMG-SHAKING Verified 08/08/21 15:20 [From Benadryl] & SWEATING metformin AdvReac Intermediate causes Verified 08/08/21 15:20 kidney problems Sulfa (Sulfonamide AdvReac Intermediate Unknown Verified 08/08/21 15:20 Antibiotics) sulfamethoxazole AdvReac Intermediate GMG-RENAL Verified 08/08/21 15:20 COMPLICATIONS trimethoprim AdvReac Intermediate GMG-RENAL Verified 08/08/21 15:20 COMPLICATIONS Orxbasx-CLY-CkQ Reductase AdvReac Mild Gastrointestinal Verified 08/08/21 15:20 Inhibitor Upset [Fntjtpl-Fno-Ofs Reductase Inhibitor] Home Medications Medication Instructions Recorded Confirmed Type gabapentin 300 mg capsule 300 mg PO TID 02/14/19 08/08/21 History insulin glargine 100 unit/mL (3 20 unit SUBCUT BID 02/14/19 08/08/21 History mL) subcutaneous pen (Lantus Solostar U-100 Insulin) pantoprazole 40 mg tablet,delayed 40 mg PO QAM 02/14/19 08/08/21 History release sertraline 50 mg tablet 50 mg PO QAM 02/14/19 08/08/21 History terazosin 1 mg capsule 1 mg PO HS 02/14/19 08/08/21 History topiramate 25 mg tablet 25 mg PO BID 02/14/19 08/08/21 History clonazepam 1 mg tablet 1 mg PO HS 03/02/19 08/08/21 History isosorbide mononitrate 120 mg 120 mg PO QAM 04/23/19 08/08/21 History tablet,extended release 24 hr oxycodone-acetaminophen 5 mg-325 1 tab PO TID PRN 04/23/19 08/08/21 History mg tablet (Percocet) polyethylene glycol 3350 17 17 g PO QAM 04/23/19 08/08/21 History gram/dose oral powder (Miralax) baclofen 10 mg tablet 5 mg PO BID PRN 08/16/20 08/08/21 History diclofenac sodium 1 % topical gel 1 ea TOPICAL BID PRN 08/16/20 08/08/21 History furosemide 40 mg tablet 40 mg PO QAM 08/16/20 08/08/21 History nystatin 100,000 unit/gram topical 1 applic TOPICAL TID PRN 10/27/20 08/08/21 History powder potassium chloride 10 mEq 10 meq PO DAILY 12/05/20 08/08/21 History tablet,extended release(part/cryst) (Klor-Con M) lisinopril 10 mg tablet 10 mg PO QAM #30 tab 12/08/20 08/08/21 Rx aspirin 81 mg tablet,delayed 81 mg PO DAILY 02/13/21 08/08/21 History release zinc oxide 40 % topical ointment 1 applic TOPICAL DIRECTED PRN 02/13/21 08/08/21 History carvedilol 6.25 mg tablet 6.25 mg PO AMHS #60 tab 02/16/21 08/08/21 Rx Lactobacillus acidoph-L.bulgaricus 1 tab PO TID 05/02/21 08/08/21 History 1 million cell chewable tablet (Lactinex) amlodipine 10 mg tablet 10 mg PO QAM 05/02/21 08/08/21 History cholecalciferol (vitamin D3) 25 25 mcg PO DAILY 05/02/21 08/08/21 History mcg (1,000 unit) tablet famotidine 20 mg tablet 20 mg PO DAILY 05/02/21 08/08/21 History fluticasone propionate 50 2 spray INTRANASAL DAILY 05/02/21 08/08/21 History mcg/actuation nasal spray,suspension furosemide 40 mg tablet 40 mg PO UD 05/02/21 08/08/21 History hydralazine 50 mg tablet 50 mg PO TID 05/02/21 08/08/21 History insulin lispro 100 unit/mL 10 unit SUBCUT TIDM 05/02/21 08/08/21 History subcutaneous pen (Humalog KwikPen (U-100) Insulin) nitroglycerin 0.4 mg sublingual 0.4 mg SUBLINGUAL UD PRN 05/02/21 08/08/21 Hi story tablet (Nitrostat) ondansetron HCl 4 mg tablet 4 mg PO Q6 PRN 05/02/21 08/08/21 History cephalexin 500 mg capsule 500 mg PO QID 08/08/21 08/08/21 History Past Med/Surg History Medical History Acute UTI Adjustment disorder CAD (coronary artery disease) CHF (congestive heart failure) CKD (chronic kidney disease) CKD (chronic kidney disease), stage III Encephalopathy acute GERD (gastroesophageal reflux disease) HLD (hyperlipidemia) Hypertension Hyponatremia IBS (irritable bowel syndrome) Insulin dependent diabetes mellitus Mood disorder Morbid obesity Paroxysmal A-fib Pressure ulcer Surgical History H/O hernia repair H/O: H/O: hysterectomy S/P cholecystectomy Family History Brother Prostate cancer Father Diabetes Social History Smoking Status: Never smoker Second Hand Exposure: No; Hx Alcohol Use: No Hx Substance Use: No Preferred Language: Korean Communication Ability: Impaired Visual Impairment: No Limitations Acid Dipper Required: No Beliefs That Will Affect Care: None marital status: / Current Living Situation: Family Current Living Situation Comment: Patient reports she lives with her sisters and juana. Feels Safe at Home: Yes Safety Concerns: Feels Safe At This Time Assistive Devices: Glasses Review of Systems Review of Systems: Unobtainable due to cognitive status Physical Exam Physical Exam: General: no distress, obese Head: normocephalic, atraumatic Eyes: PERRL, EOM's appear intact, conjunctiva non-injected, anicteric ENT: normal inspection external ears, nose, mucous membranes moist Neck: supple, trachea midline Lungs: no respiratory distress, diminished CV: RRR, distant heart sounds, 1+ pretibial edema Abd: +obese, normal BS, soft, non-tender Ext: no cyanosis, no calf tenderness, left lower leg with wound without surrounding erythema, no discharge Neuro: Awake. Knows name, does not know her age or birthday. Knows in hospital but unsure which one. States lives with her sisters who's names are "81" Reports year is 1880. Keeps repeating "81" and answers questions inappropriately, no focal deficits noted Skin: warm, dry, +erythema skin folds Results & Data Results & Data ([facility]) Vital Signs (Past 12 Hours) Vital Signs Temp Pulse Resp BP Pulse Ox 08/08/21 17:00 64 17 98 08/08/21 16:42 72 95 08/08/21 16:00 73 18 98 08/08/21 15:30 74 22 100 08/08/21 15:23 77 99 08/08/21 15:00 37.0 C 73 18 122/83 98 Laboratory Results Short CBC 08/08/21 Range/Units 16:14 WBC 10.52 (4.8-10.8) K/uL Hgb 9.3 L (12.0-16.0) g/dL Hct 28.8 L (37-47) % Plt Count 212 (130-400) K/uL BMP 08/08/21 16:14 Sodium 141 Potassium 4.6 Chloride 108 H Carbon Dioxide 26 BUN 53 H Creatinine 2.23 H Glucose 142 H Calcium 8.7 Cardiac Enzymes 08/08/21 Range/Units 16:14 Total Creatine Kinase 208 H (26-192) U/L CK-MB (CK-2) 1.8 (0.5-3.6) ng/ml Troponin I < 0.015 (0-0.045) ng/ml Liver Function 08/08/21 Range/Units 16:14 Total Bilirubin 0.5 (0.2-1) mg/dl AST 31 (15-37) U/L ALT 21 (12-78) Alkaline Phosphatase 81 (45-117) U/L Albumin 2.5 L (3.4-5.0) gm/dl Urine 08/08/21 Range/Units 15:30 Urine Color Yellow Urine Appearance Clear (Clear) Urine pH 8.0 H (4.5-7.5) Ur Specific Boyce 1.009 (1.000-1.030) Urine Protein Negative (Negative) Urine Glucose (UA) Negative (Negative) Diagnostic Findings Cervical Spine CT 08/08/21 14:43 CT cervical spine wo con CLINICAL HISTORY: 76 years-old Female with AMS. Acute neck injury COMPARISON: Head CT of same day, CT cervical spine 04/19/2019 TECHNIQUE: Multiple axial CT images of the cervical spine were obtained without contrast. A dose lowering technique was utilized adhering to the principles of ALARA. FINDINGS: Demineralized appearance of the bones. Moderate to severe multilevel intervertebral disc space narrowing has progressed from comparison. Healed chronic fracture deformity involves the left lateral mass of C1. The atlantoaxial interval is normal at 2 mm, previously 4 mm. Moderate to severe multilevel facet arthrosis. Posterior disc osteophyte complex formations are noted at several levels, largest at C6-C7. No acute fracture or subluxation is identified. The mastoid air cells and middle ear cavities appear clear. Multilevel neural foraminal narrowing.Severe degeneration with chronic remodeling of the left temporomandibular joint. Severe osteoarthritis of the right glenohumeral joint. The lung apices appear clear. Multinodular thyroid with numerous parenchymal calcifications. No prevertebral edema. Calcified plaque of the carotid bulbs. IMPRESSION: 1. No acute fracture or subluxation. 2. Healed chronic fracture deformity of the left lateral mass of C1. ACT 112: Negative or not required by law. The above report was generated using voice recognition software. It may contain grammatical, syntax or spelling errors. Electronically signed by: Dawson Gorman M.D. 08/08/2021 5:08 PM Chest X-Ray 08/08/21 14:43 XR chest 1V portable HISTORY: 76 years-old Female SEPSIS acute sepsis COMPARISON: Chest radiograph 02/21/2021 TECHNIQUE: Semierect portable AP view of the chest FINDINGS: The cardiomediastinal and hilar silhouettes are within normal limits. Calcifications of the mitral annulus. Calcified plaque of the thoracic aorta. No pneumothorax, pleural effusion, airspace consolidation or overt pulmonary edema. Mild nonspecific interstitial coarsening. Degenerative changes of the shoulders and spine. Chronic calcifications adjacent to the left humeral head. Surgical clips of the abdominal right upper quadrant. IMPRESSION: Cardiomegaly with chronic coarsening of the interstitium. ACT 112: Negative or not required by law. The above report was generated using voice recognition software. It may contain grammatical, syntax or spelling errors. Electronically signed by: Dawson Gorman M.D. 08/08/2021 4:[address] 08/08/21 14:43 CT head/brain wo con CLINICAL HISTORY: 76 years-old Female with AMS. Acutely altered mental status TECHNIQUE: Multiple axial CT images of the head were obtained without contrast. A dose lowering technique was utilized adhering to the principles of ALARA. CT DOSE: 1381.27 mGy.cm COMPARISON: CT cervical spine of same day, head CT 02/13/2021 FINDINGS: No acute intracranial hemorrhage, midline shift, intracranial mass, hydrocephalus, territorial ischemia or abnormal extra-axial collection. Mild age-related involutional changes. Study is motion degraded. Senescent calcifications of the basal ganglia. Mild white matter hypodensities suggest chronic microvascular ischemic disease. The calvarium is intact. Prior bilateral lens repair. The paranasal sinuses, mastoid air cells, and middle ear cavities are clear. IMPRESSION: No acute intracranial abnormality. ACT 112: Negative or not required by law. The above report was generated using voice recognition software. It may contain grammatical, syntax or spelling errors. Electronically signed by: Dawson Gorman M.D. 08/08/2021 4:55 PM Code Status & VTE Plan VTE Prophylaxis Plan VTE Prophylaxis will be ordered: Yes Supervising Physician Co-Signing Physician Notes Pt seen and examined by me, care coordinated chito Marquez PA-C, pls refer to her note above for further detail. 76 y/o F w/ morbid obesity, DM II, diabetic polyneuropathy, nephropathy, CKD IV, CAD, chronic diastolic HF, HTN, HLD, secondary hyperparathyroidism, bilateral lymphedema, mood disorder presented to ER for AMS. History obtained from ER staff. Attempted calling sisters' phone but goes straight to voicemail. ER reports that EMS had stated patient was found to be covered in stool and urine. Outpatient notes reviewed and report patient is very sedentary at baseline. She is following with wound clinic for wound to left lower leg that has been healing. She initially was on doxycycline however that has been switched to Keflex.Unable to obtain any further history from patient as she is confused In ER patient afebrile, vitals stable. no leukocytosis, negative UA, negative lactate and procalcitonin. CT head and C-spine no acute findings. CXR without acute findings. Patient is lying in bed in no acute distress, however she is not able to answer questions appropriately, she repeats the same answer over and over. However she does say that she feels okay. Heart sounds seems regular. Lung sounds clear to auscultation bilaterally w/o any rhonchi crackles or wheezing noted. Abdomen is soft nontender nondistended, obese. There is some trace lower extremity edema in lower extremities. Dressings placed at left lower extremity. Skin is otherwise warm and dry. Continue current management and close hemodynamic monitoring. I tried to call her sister again, however without any answer. We will try to obtain more history. We will touch base with wound care as well when they are available. Cory Baez MD
[2021-08-08] MEDS ORDERED: hydrALAZINE TAB 50 MG TAB PO ONE (18:35)
[2021-08-08] MEDS ORDERED: GLUCOSE 40% GEL 15 GM TUBE PO PRN (20:13)
[2021-08-08] MEDS ORDERED: SODIUM CHLORIDE 0.9% 1000ML 1,000 ML IV SCH (20:13)
[2021-08-08] MEDS ORDERED: DEXTROSE 50% 50 ML SYRINGE IV PRN (20:13)
[2021-08-08] MEDS ORDERED: NITROGLYCERIN SL 0.4 MG/TAB TAB SL PRN (20:13)
[2021-08-08] MEDS ORDERED: GLUCOSE 10 TABS/TUBE PO PRN (20:13)
[2021-08-08] MEDS ORDERED: GLUCAGON FOR INJ 1 MG VIAL SQ PRN (20:13)
[2021-08-08] MEDS ORDERED: POLYETHYLENE (MIRALAX) 17 GM PACK PO PRN (20:13)
[2021-08-08] MEDS ORDERED: CARBOHYDRATES FOR HYPOGLYCEMIA PO PRN (20:13)
[2021-08-08] MEDS ORDERED: BUTT PASTE (ZINC OXIDE 16%) 171 APPLN/57 GM JAR EXT PRN (21:22)
[2021-08-08] MEDS ORDERED: cefTRIAXone SODIUM 1,000 MG in DEXTROSE 5% 50 ML IV SCH (21:30)
[2021-08-08] MEDS: INSULIN ASPART PER UNIT SC SCH (22:13)
[2021-08-08] MEDS: INSULIN GLARGINE SOLOSTAR 100 UNITS/ML 3 ML PEN SC SCH (23:07)
[2021-08-08] MEDS: TERAZOSIN HCL 1 MG CAP PO SCH (23:09)
[2021-08-08] MEDS: GABAPENTIN 300 MG CAP PO SCH (23:09)
[2021-08-08] MEDS: TOPIRAMATE 25 MG TAB PO SCH (23:09)
[2021-08-08] MEDS: ADVANCED PROBIOTIC 1250 MG CAPSULE PO SCH (23:09)
[2021-08-08] MEDS: NYSTATIN POWDER 15GM BTL EXT SCH (23:09)
[2021-08-08] MEDS: carvediloL 6.25 MG TAB PO SCH (23:10)
[2021-08-08] MEDS: hydrALAZINE TAB 50 MG TAB PO SCH (23:12)
[2021-08-08] MEDS: cefTRIAXone SODIUM 2,000 MG in DEXTROSE 5% 50 ML IV SCH (23:15)
[2021-08-09 06:42] LABS: Hematocrit (blood only) 28.1 % (37-47); Hemoglobin 8.9 g/dL (12.0-16.0); Mean Corpuscular Hemoglobin 29.5 pg (25-34); Mean Corpuscular Hgb Conc 31.7 g/dL (32-36); Mean Platelet Volume 9.3 fL (7.4-10.4); Platelet Count 254 K/uL (130-400); RDW Coefficient of Variation 14.2 % (11.5-14.5); RDW Standard Deviation 47.9 fL (36.4-46.3); Red Blood Count 3.02 M/uL (4.2-5.4); White Blood Count 9.94 K/uL (4.8-10.8)
[2021-08-09 07:01] LABS: BUN Creatinine Ratio 23.4 (10-20); Blood Urea Nitrogen 45 mg/dl (7-18); Calcium 8.6 mg/dl (8.5-10.1); Carbon Dioxide 26 mmol/L (21-32); Chloride 112 mmol/L (98-107); Est GFR (African American) 28.4 ml/min; Est GFR (Non-African American) 24.5 ml/min; Glucose 115 mg/dl (70-99); Potassium 4.3 mmol/L (3.5-5.1); Sodium 143 mmol/L (136-145)
[2021-08-09] MEDS: INSULIN ASPART PER UNIT SC SCH ×3 (07:30→21:00)
--- NOTE | 2021-08-09 07:45 | Hospitalist Progress Note ---
Date of Service August 09, 2021 Assessment & Plan (1) Acute alteration in mental status: Plan: Patient is 76 y/o F with PMH morbid obesity, DM II, diabetic polyneuropathy, nephropathy, CKD IV, CAD, chronic diastolic HF, HTN, HLD, secondary hyperparathyroidism, bilateral lymphedema, mood disorder presented to ER for AMS. Reported pt found to be sitting in urine and feces and confused. Unable to obtain history from patient and sisters are unavailable at the time of admission. In ER patient afebrile, vitals stable. no leukocytosis, negative UA, negative lactate and procalcitonin. CT head and C-spine no acute findings. CXR without acute findings No signs of active underlying infection at this time. Unknown if AMS may be caused by medications or medication misuse Blood culture and urine culture pending Hold clonazepam and oxycodone at this time Monitor NPO on admission - now cleared by speech monitor CBC, BMP 08/09 - Mental status already improved -she is able to answer simple questions appropriately, however does not recall what happened prior to her coming to the hospital She says that she lives with her sisters. (2) Acute on chronic kidney failure: Plan: History CKD III-IV Cr: 2.2. Was 1.3 on 05/12/21 and 2.3 on 05/02/21 Gentle IVF Hold lasix and lisinopril and reassess Monitor renal functions. If no improvement consider nephrology consult Cr slightly improved - at 1.9 Left Leg Wound Following with [facility] with wound clinic for wound to left lower leg that has been healing well. Was on doxycycline however that has been switched to Keflex secondary to GI intolerance. Wound culture was +staph aureus Wound does not appear infected Will hold Keflex and change to Rocephin while inpt Chronic heart failure with preserved ejection fraction: Hold Lasix currently and monitor I&O's and reassess daily CAD: Denies CP Continue carvedilol, isosorbide, aspirin Insulin dependent diabetes mellitus II A1c 6.4 in 04/15/21 Hold home insulin Lantus/NovoLog per protocol Current A1c 6.5% Hypertension: BP elevated, likely patient not taking medications Continue amlodipine, carvedilol, hydralazine, Terazosin, isosorbide Hold lisinopril with current MAGGIE Chronic anemia: Hgb: 9.3. At baseline Monitor H&H Ambulatory dysfunction: Pt sedentary at baseline Will need PT/OT consult when appropriate Mood disorder: Continue sertraline Hold clonazepam with current AMS DVT Prophylaxis SCDs Full Code as unable to discuss with patient or patient's sister Follows with Dr Bullock for routine care Admission and Anticipated Discharge Date Admission Date: August 08, 2021 Subjective Patient seen in follow-up of altered mental status Currently laying in bed, in ED holding area Her mental status however seems much improved, she is able to answer simple questions appropriately She does not recall what happened prior to her coming to the hospital She says that she lives with her sisters She was seen in wound clinic on August 04, at that time she seemed to be at her baseline Currently denies any fevers, chills, chest pain, shortness of breath, abdominal pain, nausea or vomiting, says that she is feeling fine Review of Systems Review of Systems: All systems reviewed & are unremarkable except as noted in Subjective Physical Exam Physical Exam: General: obese F in NAD Head: normocephalic, atraumatic Eyes: PERRL, EOM's appear intact, conjunctiva non-injected, anicteric ENT: normal inspection external ears, nose, mucous membranes moist Neck: supple, trachea midline Lungs: no respiratory distress, diminished CV: RRR, distant heart sounds, 1+ pretibial edema Abd: +obese, normal BS, soft, non-tender Ext: no cyanosis, no calf tenderness, left lower leg with wound without surrounding erythema, no discharge Neuro: Awake. Able to answer simple questions appropriately, answering slow. She is aware that she is in the hospital. No facial asymmetry, speech fluent, moves extremities. Skin: warm, dry, +erythema skin folds Results & Data Results & Data ([facility]) Vital Signs (Past 12 Hours) Vital Signs Pulse Pulse Resp BP BP Pulse Ox 08/09/21 06:00 59 L 16 159/50 H 98 08/08/21 20:20 68 15 197/74 H 97 08/08/21 20:13 75 15 158/81 H 98 Laboratory Results 08/09/21 08/09/21 08/09/21 Range/Units 06:27 06:27 06:27 WBC 9.94 (4.8-10.8) K/uL RBC 3.02 L (4.2-5.4) M/uL Hgb 8.9 L (12.0-16.0) g/dL Hct 28.1 L (37-47) % MCV 93.0 (80-100) fL MCH 29.5 (25-34) pg MCHC 31.7 L (32-36) g/dL RDW Std Deviation 47.9 H (36.4-46.3) fL RDW Coeff of Isabel 14.2 (11.5-14.5) % Plt Count 254 (130-400) K/uL MPV 9.3 (7.4-10.4) fL Immature Gran % (Auto) % Neut % (Auto) % Lymph % (Auto) % Mclean % (Auto) % Eos % (Auto) % Baso % (Auto) % Neut # (Auto) (1.4-6.5) K/uL Lymph # (Auto) (1.2-3.4) K/uL Mclean # (Auto) (0.11-0.59) K/uL Eos # (Auto) (0-0.5) K/uL Baso # (Auto) (0-0.2) K/uL Immature Gran # (Auto) (0.00-0.02) K/uL PT INR APTT PTT Ratio Sodium 143 (136-145) mmol/L Potassium 4.3 (3.5-5.1) mmol/L Chloride 112 H (98-107) mmol/L Carbon Dioxide 26 (21-32) mmol/L Anion Gap 6.0 (3-11) BUN 45 H (7-18) mg/dl Creatinine 1.94 H (0.6-1.2) mg/dl Est Cr Clr Drug Dosing Not Reportable Est GFR ( Amer) 28.4 ml/min Est GFR (Non-Af Amer) 24.5 ml/min BUN/Creatinine Ratio 23.4 H (10-20) Glucose 115 H (70-99) mg/dl POC Glucose (70-99) mg/dl Estimat Average Glucose Pending Hemoglobin A1c Pending Lactate (0.4-2.0) mmol/L Calcium 8.6 (8.5-10.1) mg/dl Magnesium (1.8-2.4) mg/dl Total Bilirubin (0.2-1) mg/dl AST (15-37) U/L ALT (12-78) Alkaline Phosphatase (45-117) U/L Total Creatine Kinase (26-192) U/L CK-MB (CK-2) (0.5-3.6) ng/ml CK/CKMB % Calc (0-3.0) Troponin I (0-0.045) ng/ml Total Protein (6.4-8.2) gm/dl Albumin (3.4-5.0) gm/dl Globulin (2.5-4.0) gm/dl Albumin/Globulin Ratio (0.9-2) Procalcitonin (0-0.5) ng/ml TSH (0.300-4.500) uIu/ml Specimen Hemolysis Urine Color Urine Appearance (Clear) Urine pH (4.5-7.5) Ur Specific [place] (1.000-1.030) Urine Protein (Negative) Urine Glucose (UA) (Negative) Urine Ketones (Negative) Urine Blood (Negative) Urine Nitrite (Negative) Urine Bilirubin (Negative) Urine Urobilinogen (Negative) Ur Leukocyte Esterase (Negative) SARS-CoV-2, RNA, NAAT (NEGATIVE) 08/08/21 08/08/21 08/08/21 Range/Units 22:10 16:14 16:14 WBC (4.8-10.8) K/uL RBC (4.2-5.4) M/uL Hgb (12.0-16.0) g/dL Hct (37-47) % MCV (80-100) fL MCH (25-34) pg MCHC (32-36) g/dL RDW Std Deviation (36.4-46.3) fL RDW Coeff of Isabel (11.5-14.5) % Plt Count (130-400) K/uL MPV (7.4-10.4) fL Immature Gran % (Auto) % Neut % (Auto) % Lymph % (Auto) % Mclean % (Auto) % Eos % (Auto) % Baso % (Auto) % Neut # (Auto) (1.4-6.5) K/uL Lymph # (Auto) (1.2-3.4) K/uL Mclean # (Auto) (0.11-0.59) K/uL Eos # (Auto) (0-0.5) K/uL Baso # (Auto) (0-0.2) K/uL Immature Gran # (Auto) (0.00-0.02) K/uL PT INR APTT PTT Ratio Sodium (136-145) mmol/L Potassium (3.5-5.1) mmol/L Chloride (98-107) mmol/L Carbon Dioxide (21-32) mmol/L Anion Gap (3-11) BUN (7-18) mg/dl Creatinine (0.6-1.2) mg/dl Est Cr Clr Drug Dosing Est GFR ( Amer) ml/min Est GFR (Non-Af Amer) ml/min BUN/Creatinine Ratio (10-20) Glucose (70-99) mg/dl POC Glucose 131 H (70-99) mg/dl Estimat Average Glucose Hemoglobin A1c Lactate 0.8 (0.4-2.0) mmol/L Calcium (8.5-10.1) mg/dl Magnesium (1.8-2.4) mg/dl Total Bilirubin (0.2-1) mg/dl AST (15-37) U/L ALT (12-78) Alkaline Phosphatase (45-117) U/L Total Creatine Kinase (26-192) U/L CK-MB (CK-2) (0.5-3.6) ng/ml CK/CKMB % Calc (0-3.0) Troponin I (0-0.045) ng/ml Total Protein (6.4-8.2) gm/dl Albumin (3.4-5.0) gm/dl Globulin (2.5-4.0) gm/dl Albumin/Globulin Ratio (0.9-2) Procalcitonin 0.05 (0-0.5) ng/ml TSH (0.300-4.500) uIu/ml Specimen Hemolysis Urine Color Urine Appearance (Clear) Urine pH (4.5-7.5) Ur Specific [place] (1.000-1.030) Urine Protein (Negative) Urine Glucose (UA) (Negative) Urine Ketones (Negative) Urine Blood (Negative) Urine Nitrite (Negative) Urine Bilirubin (Negative) Urine Urobilinogen (Negative) Ur Leukocyte Esterase (Negative) SARS-CoV-2, RNA, NAAT (NEGATIVE) 08/08/21 08/08/21 08/08/21 Range/Units 16:14 16:14 16:14 WBC 10.52 (4.8-10.8) K/uL RBC 3.11 L (4.2-5.4) M/uL Hgb 9.3 L (12.0-16.0) g/dL Hct 28.8 L (37-47) % MCV 92.6 (80-100) fL MCH 29.9 (25-34) pg MCHC 32.3 (32-36) g/dL RDW Std Deviation 47.1 H (36.4-46.3) fL RDW Coeff of Isabel 14.0 (11.5-14.5) % Plt Count 212 (130-400) K/uL MPV 9.9 (7.4-10.4) fL Immature Gran % (Auto) 0.4 % Neut % (Auto) 69.0 % Lymph % (Auto) 21.9 % Mclean % (Auto) 6.2 % Eos % (Auto) 2.3 % Baso % (Auto) 0.2 % Neut # (Auto) 7.27 H (1.4-6.5) K/uL Lymph # (Auto) 2.30 (1.2-3.4) K/uL Mclean # (Auto) 0.65 H (0.11-0.59) K/uL Eos # (Auto) 0.24 (0-0.5) K/uL Baso # (Auto) 0.02 (0-0.2) K/uL Immature Gran # (Auto) 0.04 H (0.00-0.02) K/uL PT Cancelled INR Cancelled APTT Cancelled PTT Ratio Cancelled Sodium 141 (136-145) mmol/L Potassium 4.6 (3.5-5.1) mmol/L Chloride 108 H (98-107) mmol/L Carbon Dioxide 26 (21-32) mmol/L Anion Gap 7.0 (3-11) BUN 53 H (7-18) mg/dl Creatinine 2.23 H (0.6-1.2) mg/dl Est Cr Clr Drug Dosing Not Reportable Est GFR ( Amer) 24.0 ml/min Est GFR (Non-Af Amer) 20.7 ml/min BUN/Creatinine Ratio 23.7 H (10-20) Glucose 142 H (70-99) mg/dl POC Glucose (70-99) mg/dl Estimat Average Glucose Hemoglobin A1c Lactate (0.4-2.0) mmol/L Calcium 8.7 (8.5-10.1) mg/dl Magnesium 2.4 (1.8-2.4) mg/dl Total Bilirubin 0.5 (0.2-1) mg/dl AST 31 (15-37) U/L ALT 21 (12-78) Alkaline Phosphatase 81 (45-117) U/L Total Creatine Kinase 208 H (26-192) U/L CK-MB (CK-2) 1.8 (0.5-3.6) ng/ml CK/CKMB % Calc 0.9 (0-3.0) Troponin I < 0.015 (0-0.045) ng/ml Total Protein 7.1 (6.4-8.2) gm/dl Albumin 2.5 L (3.4-5.0) gm/dl Globulin 4.6 H (2.5-4.0) gm/dl Albumin/Globulin Ratio 0.5 L (0.9-2) Procalcitonin (0-0.5) ng/ml TSH 0.955 (0.300-4.500) uIu/ml Specimen Hemolysis Urine Color Urine Appearance (Clear) Urine pH (4.5-7.5) Ur Specific [place] (1.000-1.030) Urine Protein (Negative) Urine Glucose (UA) (Negative) Urine Ketones (Negative) Urine Blood (Negative) Urine Nitrite (Negative) Urine Bilirubin (Negative) Urine Urobilinogen (Negative) Ur Leukocyte Esterase (Negative) SARS-CoV-2, RNA, NAAT (NEGATIVE) 08/08/21 08/08/21 Range/Units 15:30 15:15 WBC (4.8-10.8) K/uL RBC (4.2-5.4) M/uL Hgb (12.0-16.0) g/dL Hct (37-47) % MCV (80-100) fL MCH (25-34) pg MCHC (32-36) g/dL RDW Std Deviation (36.4-46.3) fL RDW Coeff of Isabel (11.5-14.5) % Plt Count (130-400) K/uL MPV (7.4-10.4) fL Immature Gran % (Auto) % Neut % (Auto) % Lymph % (Auto) % Mclean % (Auto) % Eos % (Auto) % Baso % (Auto) % Neut # (Auto) (1.4-6.5) K/uL Lymph # (Auto) (1.2-3.4) K/uL Mclean # (Auto) (0.11-0.59) K/uL Eos # (Auto) (0-0.5) K/uL Baso # (Auto) (0-0.2) K/uL Immature Gran # (Auto) (0.00-0.02) K/uL PT INR APTT PTT Ratio Sodium (136-145) mmol/L Potassium (3.5-5.1) mmol/L Chloride (98-107) mmol/L Carbon Dioxide (21-32) mmol/L Anion Gap (3-11) BUN (7-18) mg/dl Creatinine (0.6-1.2) mg/dl Est Cr Clr Drug Dosing Est GFR ( Amer) ml/min Est GFR (Non-Af Amer) ml/min BUN/Creatinine Ratio (10-20) Glucose (70-99) mg/dl POC Glucose (70-99) mg/dl Estimat Average Glucose Hemoglobin A1c Lactate (0.4-2.0) mmol/L Calcium (8.5-10.1) mg/dl Magnesium (1.8-2.4) mg/dl Total Bilirubin (0.2-1) mg/dl AST (15-37) U/L ALT (12-78) Alkaline Phosphatase (45-117) U/L Total Creatine Kinase (26-192) U/L CK-MB (CK-2) (0.5-3.6) ng/ml CK/CKMB % Calc (0-3.0) Troponin I (0-0.045) ng/ml Total Protein (6.4-8.2) gm/dl Albumin (3.4-5.0) gm/dl Globulin (2.5-4.0) gm/dl Albumin/Globulin Ratio (0.9-2) Procalcitonin (0-0.5) ng/ml TSH (0.300-4.500) uIu/ml Specimen Hemolysis Urine Color Yellow Urine Appearance Clear (Clear) Urine pH 8.0 H (4.5-7.5) Ur Specific [place] 1.009 (1.000-1.030) Urine Protein Negative (Negative) Urine Glucose (UA) Negative (Negative) Urine Ketones Negative (Negative) Urine Blood Negative (Negative) Urine Nitrite Negative (Negative) Urine Bilirubin Negative (Negative) Urine Urobilinogen Negative (Negative) Ur Leukocyte Esterase Negative (Negative) SARS-CoV-2, RNA, NAAT NEGATIVE (NEGATIVE) Medications Administered Current Inpatient Medications Acetaminophen (Acetaminophen 325 Mg Tab) 650 mg PO Q4H PRN PRN Reason: Pain or Fever Stop: 09/07/21 20:12 Amlodipine Besylate (Amlodipine Besylate 5 Mg Tab) 10 mg PO QAM [facility] Stop: 09/08/21 08:59 Aspirin (Aspirin 81 Mg Ectab) 81 mg PO DAILY [facility] Stop: 09/08/21 08:59 Carvedilol (Carvedilol 6.25 Mg Tab) 6.25 mg PO AMHS [facility] Stop: 09/07/21 20:59 Last Admin: 08/08/21 23:10 Dose: 6.25 mg Documented by: Dextrose (Dextrose 50% 50 Ml Syringe) 25 - 50 ml IV UD PRN; Protocol PRN Reason: Hypoglycemia Protocol Stop: 09/07/21 20:12 Famotidine (Famotidine 20 Mg Tab) 20 mg PO DAILY [facility] Stop: 09/08/21 08:59 Fluticasone Propionate (Fluticasone Propionate Na Spr 16 Gm Btl) 2 sprays ANSELMO DAILY [facility] Stop: 09/08/21 08:59 Gabapentin (Gabapentin 300 Mg Cap) 300 mg PO TID [facility] Stop: 09/07/21 20:59 Last Admin: 08/08/21 23:09 Dose: 300 mg Documented by: Glucagon (Glucagon For Inj 1 Mg Vial) 1 mg SQ UD PRN; Protocol PRN Reason: Hypoglycemia Protocol Stop: 09/07/21 20:12 Glucose (Glucose 10 Tabs/Tube) 4 - 8 tabs PO UD PRN; Protocol PRN Reason: Hypoglycemia Protocol Stop: 09/07/21 20:12 Glucose (Glucose 40% Gel 15 Gm Tube) 15 - 30 gm PO UD PRN; Protocol PRN Reason: Hypoglycemia Protocol Stop: 09/07/21 20:12 Hydralazine HCl (Hydralazine Tab 50 Mg Tab) 50 mg PO TID [facility] Stop: 09/07/21 20:59 Last Admin: 08/08/21 23:12 Dose: 50 mg Documented by: Sodium Chloride (Nss 1000ml) 1,000 mls @ 80 mls/hr IV .[id number] [facility] Stop: 08/09/21 08:42 Last Admin: 08/08/21 23:16 Dose: 80 mls/hr Documented by: Ceftriaxone Sodium 2,000 mg/ (Dextrose) 70 mls @ 140 mls/hr IV Q24H [facility] Stop: 08/15/21 21:29 Last Infusion: 08/09/21 00:02 Dose: Infused Documented by: Insulin Aspart (Insulin Aspart Per Unit) 0 units SC ACHS [facility] Stop: 09/07/21 20:59 Last Admin: 08/08/21 22:13 Dose: Not Given Documented by: Insulin Glargine (Insulin Glargine Solostar 100 Units/Ml 3 Ml Pen) 0 - 20 units SC BID [facility] Stop: 09/07/21 20:59 Last Admin: 08/08/21 23:07 Dose: 10 units Documented by: Isosorbide Mononitrate (Isosorbide Mclean Extended Rel 60 Mg Tabcr) 120 mg PO QAM [facility] Stop: 09/08/21 08:59 Lactobacillus Acidoph/Casei/Rhamnos (Advanced Probiotic 1250 Mg Capsule) 1 cap PO TID [facility] Stop: 09/07/21 20:59 Last Admin: 08/08/21 23:09 Dose: 1 cap Documented by: Miscellaneous (Carbohydrates For Hypoglycemia ) 15 - 30 gm PO UD PRN PRN Reason: Hypoglycemia Protocol Stop: 09/07/21 20:12 Nitroglycerin (Nitroglycerin Sl 0.4 Mg/Tab Tab) 0.4 mg SL UD PRN PRN Reason: Chest Pain Stop: 09/07/21 20:12 Nystatin (Nystatin Powder 15gm Btl) 1 appln EXT BID [facility] Stop: 09/07/21 20:59 Last Admin: 08/08/21 23:09 Dose: 1 appln Documented by: Pantoprazole Sodium (Pantoprazole 40 Mg Tab) 40 mg PO QAM [facility] Stop: 09/08/21 08:59 Petrolatum (Butt Paste (Zinc Oxide 16%) 171 Appln/57 Gm Jar) 1 appln EXT PRN PRN PRN Reason: BUTTOCK EXCORIATION Stop: 09/07/21 21:21 Polyethylene Glycol (Polyethylene (Miralax) 17 Gm Pack) 17 gm PO QAM PRN PRN Reason: Constipation Stop: 09/07/21 20:12 Sertraline HCl (Sertraline Hcl 50 Mg Tablet) 50 mg PO QAM [facility] Stop: 09/08/21 08:59 Terazosin HCl (Terazosin Hcl 1 Mg Cap) 1 mg PO HS [facility] Stop: 09/07/21 20:59 Last Admin: 08/08/21 23:09 Dose: 1 mg Documented by: Topiramate (Topiramate 25 Mg Tab) 25 mg PO BID [facility] Stop: 09/07/21 20:59 Last Admin: 08/08/21 23:09 Dose: 25 mg Documented by:
[2021-08-09 09:01] LABS: Estimated Average Glucose 140 mg/dl; Hemoglobin A1C 6.5 % (4.5-5.6)
[2021-08-09] MEDS: NYSTATIN POWDER 15GM BTL EXT SCH ×2 (09:44→20:33)
[2021-08-09] MEDS: INSULIN GLARGINE SOLOSTAR 100 UNITS/ML 3 ML PEN SC SCH ×2 (10:24→20:51)
[2021-08-09] MEDS: amLODIPine BESYLATE 5 MG TAB PO SCH (10:24)
[2021-08-09] MEDS: carvediloL 6.25 MG TAB PO SCH ×2 (10:24→20:28)
[2021-08-09] MEDS: ASPIRIN 81 MG ECTAB PO SCH (10:24)
[2021-08-09] MEDS: GABAPENTIN 300 MG CAP PO SCH ×3 (10:25→20:28)
[2021-08-09] MEDS: SERTRALINE HCL 50 MG TABLET PO SCH (10:25)
[2021-08-09] MEDS: ISOSORBIDE MONO EXTENDED REL 60 MG TABCR PO SCH (10:25)
[2021-08-09] MEDS: ADVANCED PROBIOTIC 1250 MG CAPSULE PO SCH ×3 (10:25→20:28)
[2021-08-09] MEDS: hydrALAZINE TAB 50 MG TAB PO SCH ×3 (10:25→20:29)
[2021-08-09] MEDS: FAMOTIDINE 20 MG TAB PO SCH (10:25)
[2021-08-09] MEDS: PANTOprazole 40 MG TAB PO SCH (10:25)
[2021-08-09] MEDS: TOPIRAMATE 25 MG TAB PO SCH ×2 (10:25→20:28)
[2021-08-09] MEDS: FLUTICASONE PROPIONATE NA SPR 16 GM BTL NAE SCH (10:32)
[2021-08-09] MEDS: hydrALAZINE HCL 20 MG/ML VIAL IV PRN ×2 (10:34→18:41)
[2021-08-09] MEDS: TERAZOSIN HCL 1 MG CAP PO SCH (20:28)
[2021-08-09] MEDS: cefTRIAXone SODIUM 2,000 MG in DEXTROSE 5% 50 ML IV SCH (21:10)
[2021-08-10] MEDS: ACETAMINOPHEN 325 MG TAB PO PRN (03:57)
[2021-08-10] MEDS: INSULIN ASPART PER UNIT SC SCH ×5 (05:52→21:56)
[2021-08-10 06:29] LABS: Hematocrit (blood only) 27.8 % (37-47); Hemoglobin 8.7 g/dL (12.0-16.0); Mean Corpuscular Hemoglobin 29.8 pg (25-34); Mean Corpuscular Hgb Conc 31.3 g/dL (32-36); Mean Corpuscular Volume 95.2 fL (80-100); Mean Platelet Volume 9.6 fL (7.4-10.4); Platelet Count 282 K/uL (130-400); RDW Coefficient of Variation 14.6 % (11.5-14.5); RDW Standard Deviation 49.8 fL (36.4-46.3); Red Blood Count 2.92 M/uL (4.2-5.4); White Blood Count 10.83 K/uL (4.8-10.8)
[2021-08-10 07:03] LABS: Albumin Level 2.3 gm/dl (3.4-5.0); BUN Creatinine Ratio 23.6 (10-20); Calcium 8.5 mg/dl (8.5-10.1); Creatinine Clr Calc Pharmacy 30.9 ml/min; Est GFR (African American) 34.1 ml/min; Est GFR (Non-African American) 29.4 ml/min; Magnesium 2.2 mg/dl (1.8-2.4); Potassium 4.5 mmol/L (3.5-5.1)
[2021-08-10 07:08] LABS: Albumin Globulin Ratio 0.5 (0.9-2); Bilirubin,Total 0.4 mg/dl (0.2-1); Globulin 4.2 gm/dl (2.5-4.0); Phosphorus 3.9 mg/dl (2.5-4.9); Total Protein 6.5 gm/dl (6.4-8.2)
--- NOTE | 2021-08-10 08:57 | Hospitalist Progress Note ---
Date of Service August 10, 2021 Assessment & Plan (1) Acute alteration in mental status: Plan: 76 y/o F w/ morbid obesity, DM II, diabetic polyneuropathy, nephropathy, CKD IV, CAD, chronic diastolic HF, HTN, HLD, secondary hyperparathyroidism, bilateral lymphedema, mood disorder presents with AMS. Reported pt found to be sitting in urine and feces and confused. Unable to obtain history from patient or sisters at the time of admission. In ER patient afebrile, vitals stable. no leukocytosis, negative UA, negative lactate and procalcitonin. CT head and C-spine no acute findings. CXR without acute findings No signs of active underlying infection at this time. Unknown if AMS may be caused by medications or medication misuse Blood culture - no growth in 48 hrs Urine culture - 20,000 Diphteroids. Will repeat UA Hold clonazepam and oxycodone at this time Monitor NPO initially - now cleared by speech monitor CBC, BMP 08/09 - Mental status already improved -she is able to answer simple questions appropriately, however does not recall what happened prior to her coming to the hospital She says that she lives with her sisters. 08/10 - Mental status is much improved, she is able to answer questions appropriately. Says that her sisters were not able to answer the phone as they cannot hear, and their hearing aid was not working. However pt still doesn't remember what happened to her prior to coming to the hospital. She says that she was in wound clinic several days ago and her wound VAC was discontinued. She felt well at that time. (2) Acute on chronic kidney failure: Plan: History CKD III-IV Cr: 2.2. Was 1.3 on 05/12/21 and 2.3 on 05/02/21 Gentle IVF Hold lasix and lisinopril and reassess daily Monitor renal functions. If no improvement consider nephrology consult Cr improved ->1.9 -> 1.7 Left Leg Wound Following with [facility] with wound clinic for wound to left lower leg that has been healing well. Was on doxycycline however that has been switched to Keflex secondary to GI intolerance. Wound culture was +staph aureus (as outpt) Wound does not appear infected Will hold Keflex and change to Rocephin while inpt Wound care consulted Chronic heart failure with preserved ejection fraction: Hold Lasix currently and monitor I&O's and reassess daily CAD: Denies CP Continue carvedilol, isosorbide, aspirin Insulin dependent diabetes mellitus II A1c 6.4 in 04/15/21 Hold home insulin Lantus/NovoLog per protocol Current A1c 6.5% Hypertension: BP elevated, likely patient not taking medications Continue amlodipine, carvedilol, hydralazine, Terazosin, isosorbide Hold lisinopril with current MAGGIE Chronic anemia: Hgb: 9.3. At baseline Monitor H&H Ambulatory dysfunction: Pt sedentary at baseline Will need PT/OT consult when appropriate Mood disorder: Continue sertraline Hold clonazepam with current AMS DVT Prophylaxis SCDs Full Code as unable to discuss with patient or patient's sister Follows with Dr Bullock for routine care Admission and Anticipated Discharge Date Admission Date: August 08, 2021 Subjective Patient seen in follow-up of altered mental status Currently laying in bed, in ED holding area Her mental status however seems much improved, she is able to answer questions appropriately She does not recall what happened prior to her coming to the hospital She says that she lives with her sisters and that they are hearing aids were not working properly. She believes that now they should be able to answer the phone. She was seen in wound clinic on August 04, at that time she seemed to be at her baseline. She tells me that she remembers that her wound VAC was discontinued, and she was glad about it because it was difficult to carry around. Currently denies any fevers, chills, chest pain, shortness of breath, abdominal pain, nausea or vomiting, says that she is feeling fine Review of Systems Review of Systems: All systems reviewed & are unremarkable except as noted in Subjective Physical Exam Physical Exam: General: obese F in NAD Head: normocephalic, atraumatic Eyes: PERRL, EOM's appear intact, conjunctiva non-injected, anicteric ENT: normal inspection external ears, nose, mucous membranes moist Neck: supple, trachea midline Lungs: no respiratory distress, diminished CV: RRR, distant heart sounds, 1+ pretibial edema Abd: +obese, normal BS, soft, non-tender Ext: no cyanosis, no calf tenderness, left lower leg with wound without surrounding erythema, no discharge Neuro: Awake. Able to answer questions appropriately (much improved). No facial asymmetry, speech fluent, moves extremities. Skin: warm, dry, +erythema skin folds Results & Data Results & Data ([facility]) Vital Signs (Past 12 Hours) Vital Signs Temp Pulse Resp BP Pulse Ox 08/10/21 06:27 36.9 C 64 17 167/61 H 99 08/10/21 03:25 68 16 131/54 L 98 Laboratory Results 08/10/21 08/10/21 08/10/21 Range/Units 08:41 06:02 06:02 WBC 10.83 H (4.8-10.8) K/uL RBC 2.92 L (4.2-5.4) M/uL Hgb 8.7 L (12.0-16.0) g/dL Hct 27.8 L (37-47) % MCV 95.2 (80-100) fL MCH 29.8 (25-34) pg MCHC 31.3 L (32-36) g/dL RDW Std Deviation 49.8 H (36.4-46.3) fL RDW Coeff of Isabel 14.6 H (11.5-14.5) % Plt Count 282 (130-400) K/uL MPV 9.6 (7.4-10.4) fL Sodium 142 (136-145) mmol/L Potassium 4.5 (3.5-5.1) mmol/L Chloride 111 H (98-107) mmol/L Carbon Dioxide 24 (21-32) mmol/L Anion Gap 7.0 (3-11) BUN 39 H (7-18) mg/dl Creatinine 1.67 H (0.6-1.2) mg/dl Est Cr Clr Drug Dosing 30.9 ml/min Est GFR ( Amer) 34.1 ml/min Est GFR (Non-Af Amer) 29.4 ml/min BUN/Creatinine Ratio 23.6 H (10-20) Glucose 117 H (70-99) mg/dl POC Glucose 112 H (70-99) mg/dl Estimat Average Glucose mg/dl Hemoglobin A1c (4.5-5.6) % Calcium 8.5 (8.5-10.1) mg/dl Phosphorus 3.9 (2.5-4.9) mg/dl Magnesium 2.2 (1.8-2.4) mg/dl Total Bilirubin 0.4 (0.2-1) mg/dl AST 27 (15-37) U/L ALT 19 (12-78) Alkaline Phosphatase 74 (45-117) U/L Total Protein 6.5 (6.4-8.2) gm/dl Albumin 2.3 L (3.4-5.0) gm/dl Globulin 4.2 H (2.5-4.0) gm/dl Albumin/Globulin Ratio 0.5 L (0.9-2) Vitamin B12 (193-986) pg/ml Specimen Hemolysis 08/09/21 08/09/21 08/09/21 Range/Units 20:44 18:40 12:49 WBC (4.8-10.8) K/uL RBC (4.2-5.4) M/uL Hgb (12.0-16.0) g/dL Hct (37-47) % MCV (80-100) fL MCH (25-34) pg MCHC (32-36) g/dL RDW Std Deviation (36.4-46.3) fL RDW Coeff of Isabel (11.5-14.5) % Plt Count (130-400) K/uL MPV (7.4-10.4) fL Sodium (136-145) mmol/L Potassium (3.5-5.1) mmol/L Chloride (98-107) mmol/L Carbon Dioxide (21-32) mmol/L Anion Gap (3-11) BUN (7-18) mg/dl Creatinine (0.6-1.2) mg/dl Est Cr Clr Drug Dosing ml/min Est GFR ( Amer) ml/min Est GFR (Non-Af Amer) ml/min BUN/Creatinine Ratio (10-20) Glucose (70-99) mg/dl POC Glucose 119 H 114 H 145 H (70-99) mg/dl Estimat Average Glucose mg/dl Hemoglobin A1c (4.5-5.6) % Calcium (8.5-10.1) mg/dl Phosphorus (2.5-4.9) mg/dl Magnesium (1.8-2.4) mg/dl Total Bilirubin (0.2-1) mg/dl AST (15-37) U/L ALT (12-78) Alkaline Phosphatase (45-117) U/L Total Protein (6.4-8.2) gm/dl Albumin (3.4-5.0) gm/dl Globulin (2.5-4.0) gm/dl Albumin/Globulin Ratio (0.9-2) Vitamin B12 (193-986) pg/ml Specimen Hemolysis 08/09/21 08/09/21 08/09/21 Range/Units 09:04 07:56 06:27 WBC (4.8-10.8) K/uL RBC (4.2-5.4) M/uL Hgb (12.0-16.0) g/dL Hct (37-47) % MCV (80-100) fL MCH (25-34) pg MCHC (32-36) g/dL RDW Std Deviation (36.4-46.3) fL RDW Coeff of Isabel (11.5-14.5) % Plt Count (130-400) K/uL MPV (7.4-10.4) fL Sodium (136-145) mmol/L Potassium (3.5-5.1) mmol/L Chloride (98-107) mmol/L Carbon Dioxide (21-32) mmol/L Anion Gap (3-11) BUN (7-18) mg/dl Creatinine (0.6-1.2) mg/dl Est Cr Clr Drug Dosing ml/min Est GFR ( Amer) ml/min Est GFR (Non-Af Amer) ml/min BUN/Creatinine Ratio (10-20) Glucose (70-99) mg/dl POC Glucose 98 (70-99) mg/dl Estimat Average Glucose 140 mg/dl Hemoglobin A1c 6.5 H (4.5-5.6) % Calcium (8.5-10.1) mg/dl Phosphorus (2.5-4.9) mg/dl Magnesium (1.8-2.4) mg/dl Total Bilirubin (0.2-1) mg/dl AST (15-37) U/L ALT (12-78) Alkaline Phosphatase (45-117) U/L Total Protein (6.4-8.2) gm/dl Albumin (3.4-5.0) gm/dl Globulin (2.5-4.0) gm/dl Albumin/Globulin Ratio (0.9-2) Vitamin B12 1009 H (193-986) pg/ml Specimen Hemolysis Medications Administered Current Inpatient Medications Acetaminophen (Acetaminophen 325 Mg Tab) 650 mg PO Q4H PRN PRN Reason: Pain or Fever Stop: 09/07/21 20:12 Last Admin: 08/10/21 03:57 Dose: 650 mg Documented by: Amlodipine Besylate (Amlodipine Besylate 5 Mg Tab) 10 mg PO QAM [facility] Stop: 09/08/21 08:59 Last Admin: 08/09/21 10:24 Dose: Not Given Documented by: Aspirin (Aspirin 81 Mg Ectab) 81 mg PO DAILY [facility] Stop: 09/08/21 08:59 Last Admin: 08/09/21 10:24 Dose: Not Given Documented by: Carvedilol (Carvedilol 6.25 Mg Tab) 6.25 mg PO AMHS [facility] Stop: 09/07/21 20:59 Last Admin: 08/09/21 20:28 Dose: 6.25 mg Documented by: Dextrose (Dextrose 50% 50 Ml Syringe) 25 - 50 ml IV UD PRN; Protocol PRN Reason: Hypoglycemia Protocol Stop: 09/07/21 20:12 Famotidine (Famotidine 20 Mg Tab) 20 mg PO DAILY [facility] Stop: 09/08/21 08:59 Last Admin: 08/09/21 10:25 Dose: Not Given Documented by: Fluticasone Propionate (Fluticasone Propionate Na Spr 16 Gm Btl) 2 sprays ANSELMO DAILY [facility] Stop: 09/08/21 08:59 Last Admin: 08/09/21 10:32 Dose: 2 sprays Documented by: Gabapentin (Gabapentin 300 Mg Cap) 300 mg PO TID [facility] Stop: 09/07/21 20:59 Last Admin: 08/09/21 20:28 Dose: 300 mg Documented by: Glucagon (Glucagon For Inj 1 Mg Vial) 1 mg SQ UD PRN; Protocol PRN Reason: Hypoglycemia Protocol Stop: 09/07/21 20:12 Glucose (Glucose 10 Tabs/Tube) 4 - 8 tabs PO UD PRN; Protocol PRN Reason: Hypoglycemia Protocol Stop: 09/07/21 20:12 Glucose (Glucose 40% Gel 15 Gm Tube) 15 - 30 gm PO UD PRN; Protocol PRN Reason: Hypoglycemia Protocol Stop: 09/07/21 20:12 Hydralazine HCl (Hydralazine Tab 50 Mg Tab) 50 mg PO TID [facility] Stop: 09/07/21 20:59 Last Admin: 08/09/21 20:29 Dose: 50 mg Documented by: Hydralazine HCl (Hydralazine Hcl 20 Mg/Ml Vial) 2.5 mg IV Q4H PRN PRN Reason: SBP> 165 Stop: 09/08/21 09:32 Last Admin: 08/09/21 18:41 Dose: 2.5 mg Documented by: Ceftriaxone Sodium 2,000 mg/ (Dextrose) 70 mls @ 140 mls/hr IV Q24H [facility] Stop: 08/15/21 21:29 Last Infusion: 08/09/21 22:00 Dose: Infused Documented by: Insulin Aspart (Insulin Aspart Per Unit) 0 units SC ACHS [facility] Stop: 09/07/21 20:59 Last Admin: 08/10/21 05:52 Dose: Not Given Documented by: Insulin Glargine (Insulin Glargine Solostar 100 Units/Ml 3 Ml Pen) 0 - 20 units SC BID [facility] Stop: 09/07/21 20:59 Last Admin: 08/09/21 20:51 Dose: 10 units Documented by: Isosorbide Mononitrate (Isosorbide [place] Extended Rel 60 Mg Tabcr) 120 mg PO QAM [facility] Stop: 09/08/21 08:59 Last Admin: 08/09/21 10:25 Dose: Not Given Documented by: Lactobacillus Acidoph/Casei/Rhamnos (Advanced Probiotic 1250 Mg Capsule) 1 cap PO TID [facility] Stop: 09/07/21 20:59 Last Admin: 08/09/21 20:28 Dose: 1 cap Documented by: Miscellaneous (Carbohydrates For Hypoglycemia ) 15 - 30 gm PO UD PRN PRN Reason: Hypoglycemia Protocol Stop: 09/07/21 20:12 Nitroglycerin (Nitroglycerin Sl 0.4 Mg/Tab Tab) 0.4 mg SL UD PRN PRN Reason: Chest Pain Stop: 09/07/21 20:12 Nystatin (Nystatin Powder 15gm Btl) 1 appln EXT BID [facility] Stop: 09/07/21 20:59 Last Admin: 08/09/21 20:33 Dose: 1 appln Documented by: Pantoprazole Sodium (Pantoprazole 40 Mg Tab) 40 mg PO QAM [facility] Stop: 09/08/21 08:59 Last Admin: 08/09/21 10:25 Dose: Not Given Documented by: Petrolatum (Butt Paste (Zinc Oxide 16%) 171 Appln/57 Gm Jar) 1 appln EXT PRN PRN PRN Reason: BUTTOCK EXCORIATION Stop: 09/07/21 21:21 Last Admin: 08/09/21 09:45 Dose: 1 appln Documented by: Polyethylene Glycol (Polyethylene (Miralax) 17 Gm Pack) 17 gm PO QAM PRN PRN Reason: Constipation Stop: 09/07/21 20:12 Sertraline HCl (Sertraline Hcl 50 Mg Tablet) 50 mg PO QAM [facility] Stop: 09/08/21 08:59 Last Admin: 08/09/21 10:25 Dose: Not Given Documented by: Terazosin HCl (Terazosin Hcl 1 Mg Cap) 1 mg PO HS [facility] Stop: 09/07/21 20:59 Last Admin: 08/09/21 20:28 Dose: 1 mg Documented by: Topiramate (Topiramate 25 Mg Tab) 25 mg PO BID [facility] Stop: 09/07/21 20:59 Last Admin: 08/09/21 20:28 Dose: 25 mg Documented by:
[2021-08-10] MEDS: hydrALAZINE TAB 50 MG TAB PO SCH ×3 (09:53→21:37)
[2021-08-10] MEDS: FAMOTIDINE 20 MG TAB PO SCH (09:53)
[2021-08-10] MEDS: PANTOprazole 40 MG TAB PO SCH (09:53)
[2021-08-10] MEDS: carvediloL 6.25 MG TAB PO SCH ×2 (09:53→21:38)
[2021-08-10] MEDS: ADVANCED PROBIOTIC 1250 MG CAPSULE PO SCH ×3 (09:53→21:37)
[2021-08-10] MEDS: ASPIRIN 81 MG ECTAB PO SCH (09:53)
[2021-08-10] MEDS: amLODIPine BESYLATE 5 MG TAB PO SCH (09:53)
[2021-08-10] MEDS: GABAPENTIN 300 MG CAP PO SCH ×3 (09:53→21:37)
[2021-08-10] MEDS: ISOSORBIDE MONO EXTENDED REL 60 MG TABCR PO SCH (09:54)
[2021-08-10] MEDS: FLUTICASONE PROPIONATE NA SPR 16 GM BTL NAE SCH (09:54)
[2021-08-10] MEDS: TOPIRAMATE 25 MG TAB PO SCH ×2 (09:54→21:38)
[2021-08-10] MEDS: SERTRALINE HCL 50 MG TABLET PO SCH (09:54)
[2021-08-10] MEDS: INSULIN GLARGINE SOLOSTAR 100 UNITS/ML 3 ML PEN SC SCH ×2 (09:55→21:43)
[2021-08-10] MEDS: NYSTATIN POWDER 15GM BTL EXT SCH ×2 (10:07→21:38)
[2021-08-10] MEDS: cefTRIAXone SODIUM 2,000 MG in DEXTROSE 5% 50 ML IV SCH (21:36)
[2021-08-10] MEDS: TERAZOSIN HCL 1 MG CAP PO SCH (21:37)
[2021-08-11] MEDS: ACETAMINOPHEN 325 MG TAB PO PRN ×2 (01:10→18:51)
[2021-08-11 06:16] LABS: Hematocrit (blood only) 25.6 % (37-47); Hemoglobin 8.1 g/dL (12.0-16.0); Mean Corpuscular Hemoglobin 29.8 pg (25-34); Mean Corpuscular Hgb Conc 31.6 g/dL (32-36); Mean Corpuscular Volume 94.1 fL (80-100); Mean Platelet Volume 9.2 fL (7.4-10.4); Platelet Count 232 K/uL (130-400); RDW Coefficient of Variation 14.6 % (11.5-14.5); RDW Standard Deviation 49.4 fL (36.4-46.3); Red Blood Count 2.72 M/uL (4.2-5.4); White Blood Count 12.45 K/uL (4.8-10.8)
[2021-08-11] MEDS: PANTOprazole 40 MG TAB PO SCH (08:15)
[2021-08-11] MEDS: amLODIPine BESYLATE 5 MG TAB PO SCH (08:15)
[2021-08-11] MEDS: ASPIRIN 81 MG ECTAB PO SCH (08:15)
[2021-08-11] MEDS: SERTRALINE HCL 50 MG TABLET PO SCH (08:15)
[2021-08-11] MEDS: hydrALAZINE TAB 50 MG TAB PO SCH ×3 (08:16→20:23)
[2021-08-11] MEDS: ISOSORBIDE MONO EXTENDED REL 60 MG TABCR PO SCH (08:16)
[2021-08-11] MEDS: FAMOTIDINE 20 MG TAB PO SCH (08:16)
[2021-08-11] MEDS: FLUTICASONE PROPIONATE NA SPR 16 GM BTL NAE SCH (08:17)
[2021-08-11] MEDS: NYSTATIN POWDER 15GM BTL EXT SCH ×2 (08:18→20:23)
[2021-08-11] MEDS: ADVANCED PROBIOTIC 1250 MG CAPSULE PO SCH ×3 (08:31→20:23)
[2021-08-11] MEDS: carvediloL 6.25 MG TAB PO SCH ×2 (08:31→20:22)
[2021-08-11] MEDS: TOPIRAMATE 25 MG TAB PO SCH ×2 (08:31→20:23)
[2021-08-11] MEDS: GABAPENTIN 300 MG CAP PO SCH ×3 (08:31→20:23)
[2021-08-11] MEDS: INSULIN GLARGINE SOLOSTAR 100 UNITS/ML 3 ML PEN SC SCH ×2 (08:34→20:29)
[2021-08-11 10:29] LABS: Calcium 8.7 mg/dl (8.5-10.1); Creatinine Clr Calc Pharmacy 28.1 ml/min; Est GFR (African American) 30.3 ml/min; Est GFR (Non-African American) 26.2 ml/min; Potassium 4.1 mmol/L (3.5-5.1)
[2021-08-11 10:30] LABS: Phosphorus 4.3 mg/dl (2.5-4.9)
[2021-08-11] MEDS: INSULIN ASPART PER UNIT SC SCH ×4 (11:02→20:29)
[2021-08-11 11:31] LABS: Magnesium 2.1 mg/dl (1.8-2.4)
[2021-08-11] MEDS ORDERED: LIDOCAINE/EPINEPHRINE 1% 20 ML VIAL ONE (15:15)
--- NOTE | 2021-08-11 15:34 | Hospitalist Progress Note ---
Date of Service August 11, 2021 Assessment & Plan (1) Acute alteration in mental status: Plan: Metabolic encephalopathy vs encephalopathy due to medication use/misuse 76 y/o F w/ morbid obesity, DM II, diabetic polyneuropathy, nephropathy, CKD IV, CAD, chronic diastolic HF, HTN, HLD, secondary hyperparathyroidism, bilateral lymphedema, mood disorder presents with AMS. Reported pt found to be sitting in urine and feces and confused. Unable to obtain history from patient or sisters at the time of admission. In ER patient afebrile, vitals stable. no leukocytosis, negative UA, negative lactate and procalcitonin. CT head and C-spine no acute findings. CXR without acute findings No signs of active underlying infection at this time. Unknown if AMS may be caused by medications or medication misuse Blood culture - no growth in 48 hrs Urine culture - 20,000 Diphteroids. Will repeat UA Hold clonazepam and oxycodone at this time Monitor NPO initially - now cleared by speech monitor CBC, BMP 08/09 - Mental status already improved -she is able to answer simple questions appropriately, however does not recall what happened prior to her coming to the hospital She says that she lives with her sisters. 08/10 - Mental status is much improved, she is able to answer questions appropriately. Says that her sisters were not able to answer the phone as they cannot hear, and their hearing aid was not working. However pt still doesn't remember what happened to her prior to coming to the hospital. She says that she was in wound clinic several days ago and her wound VAC was discontinued. She felt well at that time. 08/11 -encephalopathy resolved. Patient is able to answer questions appropriately, patient seems to be at her baseline. Reported some burning with urination, will repeat UA. Awaiting wound consult as well, in the meantime we will continue antibiotics. Creatinine 1.8 (2) Acute on chronic kidney failure: Plan: History CKD III-IV Cr: 2.2. Was 1.3 on 05/12/21 and 2.3 on 05/02/21 Gentle IVF Hold lasix and lisinopril and reassess daily Monitor renal functions. If no improvement consider nephrology consult Cr initially improved ->1.9 -> 1.7 -> 1.8 Left Leg Wound Following with [facility] with wound clinic for wound to left lower leg that has been healing well. Was on doxycycline however that has been switched to Keflex secondary to GI intolerance. Wound culture was +staph aureus (as outpt) Wound does not appear infected Will hold Keflex and change to Rocephin while inpt Wound care consulted Chronic heart failure with preserved ejection fraction: Hold Lasix currently and monitor I&O's and reassess daily CAD: Denies CP Continue carvedilol, isosorbide, aspirin Insulin dependent diabetes mellitus II A1c 6.4 in 04/15/21 Hold home insulin Lantus/NovoLog per protocol Current A1c 6.5% Hypertension: BP elevated, likely patient not taking medications Continue amlodipine, carvedilol, hydralazine, Terazosin, isosorbide Hold lisinopril with current MAGGIE Chronic anemia: Hgb: 9.3. At baseline Monitor H&H Ambulatory dysfunction: Pt sedentary at baseline Will need PT/OT consult when appropriate Mood disorder: Continue sertraline Hold clonazepam with current AMS DVT Prophylaxis SCDs Full Code as unable to discuss with patient or patient's sister Follows with Dr Bullock for routine care Admission and Anticipated Discharge Date Admission Date: August 08, 2021 Subjective Patient seen in follow-up of altered mental status Currently laying in bed, in ED holding area Her mental status much improved, she is back to baseline She does not recall what happened prior to her coming to the hospital Tried to call her sisters, only was able to leave a message. Pt was seen in wound clinic on August 04, at that time she seemed to be at her baseline. She tells me that she remembers that her wound VAC was discontinued, and she was glad about it because it was difficult to carry around. Currently denies any fevers, chills, chest pain, shortness of breath, abdominal pain, nausea or vomiting, says that she is feeling fine Review of Systems Review of Systems: All systems reviewed & are unremarkable except as noted in Subjective Physical Exam Physical Exam: General: obese F in NAD Head: normocephalic, atraumatic Eyes: PERRL, EOM's appear intact, conjunctiva non-injected, anicteric ENT: normal inspection external ears, nose, mucous membranes moist Neck: supple, trachea midline Lungs: no respiratory distress, diminished CV: RRR, distant heart sounds, 1+ pretibial edema Abd: +obese, normal BS, soft, non-tender Ext: no cyanosis, no calf tenderness, left lower leg with wound without surrounding erythema, no discharge Neuro: Awake. Able to answer questions appropriately (much improved). No facial asymmetry, speech fluent, moves extremities. Skin: warm, dry, +erythema skin folds Results & Data Results & Data ([facility]) Vital Signs (Past 12 Hours) Vital Signs Temp Pulse Pulse Resp BP Pulse Ox 08/11/21 14:45 97 08/11/21 12:01 36.8 C 83 17 149/62 H 99 08/11/21 06:31 36.8 C 75 19 144/60 H 99 08/11/21 04:42 37.3 C 08/11/21 04:00 63 19 97 Laboratory Results 08/11/21 08/11/21 08/11/21 Range/Units 12:08 07:36 05:59 WBC (4.8-10.8) K/uL RBC (4.2-5.4) M/uL Hgb (12.0-16.0) g/dL Hct (37-47) % MCV (80-100) fL MCH (25-34) pg MCHC (32-36) g/dL RDW Std Deviation (36.4-46.3) fL RDW Coeff of Isabel (11.5-14.5) % Plt Count (130-400) K/uL MPV (7.4-10.4) fL Sodium 139 (136-145) mmol/L Potassium 4.1 (3.5-5.1) mmol/L Chloride 109 H (98-107) mmol/L Carbon Dioxide 24 (21-32) mmol/L Anion Gap 6.0 (3-11) BUN 40 H (7-18) mg/dl Creatinine 1.84 H (0.6-1.2) mg/dl Est Cr Clr Drug Dosing 28.1 ml/min Est GFR ( Amer) 30.3 ml/min Est GFR (Non-Af Amer) 26.2 ml/min BUN/Creatinine Ratio 22.0 H (10-20) Glucose 105 H (70-99) mg/dl POC Glucose 219 H 102 H (70-99) mg/dl Calcium 8.7 (8.5-10.1) mg/dl Phosphorus 4.3 (2.5-4.9) mg/dl Magnesium 2.1 (1.8-2.4) mg/dl 08/11/21 08/10/21 08/10/21 Range/Units 05:59 21:42 17:57 WBC 12.45 H (4.8-10.8) K/uL RBC 2.72 L (4.2-5.4) M/uL Hgb 8.1 L (12.0-16.0) g/dL Hct 25.6 L (37-47) % MCV 94.1 (80-100) fL MCH 29.8 (25-34) pg MCHC 31.6 L (32-36) g/dL RDW Std Deviation 49.4 H (36.4-46.3) fL RDW Coeff of Isabel 14.6 H (11.5-14.5) % Plt Count 232 (130-400) K/uL MPV 9.2 (7.4-10.4) fL Sodium (136-145) mmol/L Potassium (3.5-5.1) mmol/L Chloride (98-107) mmol/L Carbon Dioxide (21-32) mmol/L Anion Gap (3-11) BUN (7-18) mg/dl Creatinine (0.6-1.2) mg/dl Est Cr Clr Drug Dosing ml/min Est GFR ( Amer) ml/min Est GFR (Non-Af Amer) ml/min BUN/Creatinine Ratio (10-20) Glucose (70-99) mg/dl POC Glucose 126 H 133 H (70-99) mg/dl Calcium (8.5-10.1) mg/dl Phosphorus (2.5-4.9) mg/dl Magnesium (1.8-2.4) mg/dl Medications Administered Current Inpatient Medications Acetaminophen (Acetaminophen 325 Mg Tab) 650 mg PO Q4H PRN PRN Reason: Pain or Fever Stop: 09/07/21 20:12 Last Admin: 08/11/21 01:10 Dose: 650 mg Documented by: Amlodipine Besylate (Amlodipine Besylate 5 Mg Tab) 10 mg PO QAM [facility] Stop: 09/08/21 08:59 Last Admin: 08/11/21 08:15 Dose: 10 mg Documented by: Aspirin (Aspirin 81 Mg Ectab) 81 mg PO DAILY [facility] Stop: 09/08/21 08:59 Last Admin: 08/11/21 08:15 Dose: 81 mg Documented by: Carvedilol (Carvedilol 6.25 Mg Tab) 6.25 mg PO AMHS [facility] Stop: 09/07/21 20:59 Last Admin: 08/11/21 08:31 Dose: 6.25 mg Documented by: Dextrose (Dextrose 50% 50 Ml Syringe) 25 - 50 ml IV UD PRN; Protocol PRN Reason: Hypoglycemia Protocol Stop: 09/07/21 20:12 Famotidine (Famotidine 20 Mg Tab) 20 mg PO DAILY [facility] Stop: 09/08/21 08:59 Last Admin: 08/11/21 08:16 Dose: 20 mg Documented by: Fluticasone Propionate (Fluticasone Propionate Na Spr 16 Gm Btl) 2 sprays ANSELMO DAILY [facility] Stop: 09/08/21 08:59 Last Admin: 08/11/21 08:17 Dose: 2 sprays Documented by: Gabapentin (Gabapentin 300 Mg Cap) 300 mg PO TID [facility] Stop: 09/07/21 20:59 Last Admin: 08/11/21 15:23 Dose: 300 mg Documented by: Glucagon (Glucagon For Inj 1 Mg Vial) 1 mg SQ UD PRN; Protocol PRN Reason: Hypoglycemia Protocol Stop: 09/07/21 20:12 Glucose (Glucose 10 Tabs/Tube) 4 - 8 tabs PO UD PRN; Protocol PRN Reason: Hypoglycemia Protocol Stop: 09/07/21 20:12 Glucose (Glucose 40% Gel 15 Gm Tube) 15 - 30 gm PO UD PRN; Protocol PRN Reason: Hypoglycemia Protocol Stop: 09/07/21 20:12 Hydralazine HCl (Hydralazine Tab 50 Mg Tab) 50 mg PO TID [facility] Stop: 09/07/21 20:59 Last Admin: 08/11/21 15:23 Dose: 50 mg Documented by: Hydralazine HCl (Hydralazine Hcl 20 Mg/Ml Vial) 2.5 mg IV Q4H PRN PRN Reason: SBP> 165 Stop: 09/08/21 09:32 Last Admin: 08/09/21 18:41 Dose: 2.5 mg Documented by: Ceftriaxone Sodium 2,000 mg/ (Dextrose) 70 mls @ 140 mls/hr IV Q24H [facility] Stop: 08/15/21 21:29 Last Infusion: 12/21 22:18 Dose: Infused Documented by: Sodium Chloride (Nss 1000ml) 1,000 mls @ 80 mls/hr IV .[id number] [facility] Stop: 09/10/21 15:29 Insulin Aspart (Insulin Aspart Per Unit) 0 units SC ACHS [facility] Stop: 09/07/21 20:59 Last Admin: 08/11/21 13:21 Dose: 8 units Documented by: Insulin Glargine (Insulin Glargine Solostar 100 Units/Ml 3 Ml Pen) 0 - 20 units SC BID [facility] Stop: 09/07/21 20:59 Last Admin: 08/11/21 08:34 Dose: Not Given Documented by: Isosorbide Mononitrate (Isosorbide [place] Extended Rel 60 Mg Tabcr) 120 mg PO QAM [facility] Stop: 09/08/21 08:59 Last Admin: 08/11/21 08:16 Dose: 120 mg Documented by: Lactobacillus Acidoph/Casei/Rhamnos (Advanced Probiotic 1250 Mg Capsule) 1 cap PO TID [facility] Stop: 09/07/21 20:59 Last Admin: 08/11/21 15:23 Dose: 1 cap Documented by: Miscellaneous (Carbohydrates For Hypoglycemia ) 15 - 30 gm PO UD PRN PRN Reason: Hypoglycemia Protocol Stop: 09/07/21 20:12 Nitroglycerin (Nitroglycerin Sl 0.4 Mg/Tab Tab) 0.4 mg SL UD PRN PRN Reason: Chest Pain Stop: 09/07/21 20:12 Nystatin (Nystatin Powder 15gm Btl) 1 appln EXT BID [facility] Stop: 09/07/21 20:59 Last Admin: 08/11/21 08:18 Dose: 1 appln Documented by: Pantoprazole Sodium (Pantoprazole 40 Mg Tab) 40 mg PO QAM [facility] Stop: 09/08/21 08:59 Last Admin: 08/11/21 08:15 Dose: 40 mg Documented by: Petrolatum (Butt Paste (Zinc Oxide 16%) 171 Appln/57 Gm Jar) 1 appln EXT PRN PRN PRN Reason: BUTTOCK EXCORIATION Stop: 09/07/21 21:21 Last Admin: 08/09/21 09:45 Dose: 1 appln Documented by: Polyethylene Glycol (Polyethylene (Miralax) 17 Gm Pack) 17 gm PO QAM PRN PRN Reason: Constipation Stop: 09/07/21 20:12 Sertraline HCl (Sertraline Hcl 50 Mg Tablet) 50 mg PO QAM [facility] Stop: 09/08/21 08:59 Last Admin: 08/11/21 08:15 Dose: 50 mg Documented by: Terazosin HCl (Terazosin Hcl 1 Mg Cap) 1 mg PO HS [facility] Stop: 09/07/21 20:59 Last Admin: 08/10/21 21:37 Dose: 1 mg Documented by: Topiramate (Topiramate 25 Mg Tab) 25 mg PO BID [facility] Stop: 09/07/21 20:59 Last Admin: 08/11/21 08:31 Dose: 25 mg Documented by:
[2021-08-11] MEDS: SODIUM CHLORIDE 0.9% 1000ML 1,000 ML IV SCH (15:43)
[2021-08-11 17:06] LABS: Appearance Urine Clear (Clear); Bacteria Urine Automated Negative (Negative); Bilirubin Urine Negative (Negative); Blood Urine Negative (Negative); Cast Urine Automated 0 /lpf (0-5); Color Urine Yellow; Epithelial Cell Urine Auto >30 /lpf (0-5); Glucose Urine UA Negative (Negative); Ketones Urine Negative (Negative); Leukocyte Esterase Urine 2+ (Negative); Nitrite Urine Negative (Negative); Protein Urine Negative (Negative); Specific Gravity Urine 1.011 (1.000-1.030); Urobilinogen Urine Negative (Negative); pH Urine 7.5 (4.5-7.5)
[2021-08-11] MEDS: TERAZOSIN HCL 1 MG CAP PO SCH (20:40)
[2021-08-11] MEDS: cefTRIAXone SODIUM 2,000 MG in DEXTROSE 5% 50 ML IV SCH (21:56)
[2021-08-12] MEDS: SODIUM CHLORIDE 0.9% 1000ML 1,000 ML IV SCH (05:59)
[2021-08-12 06:01] LABS: Hematocrit (blood only) 24.2 % (37-47); Hemoglobin 7.7 g/dL (12.0-16.0); Mean Corpuscular Hemoglobin 29.6 pg (25-34); Mean Corpuscular Hgb Conc 31.8 g/dL (32-36); Mean Corpuscular Volume 93.1 fL (80-100); Mean Platelet Volume 9.3 fL (7.4-10.4); Platelet Count 220 K/uL (130-400); RDW Coefficient of Variation 14.2 % (11.5-14.5); RDW Standard Deviation 47.6 fL (36.4-46.3); White Blood Count 10.69 K/uL (4.8-10.8)
[2021-08-12 06:33] LABS: BUN Creatinine Ratio 21.5 (10-20); Calcium 8.5 mg/dl (8.5-10.1); Creatinine Clr Calc Pharmacy 33.8 ml/min; Est GFR (African American) 37.9 ml/min; Est GFR (Non-African American) 32.7 ml/min
[2021-08-12 06:34] LABS: Phosphorus 4.3 mg/dl (2.5-4.9)
--- NOTE | 2021-08-12 07:45 | Hospitalist Progress Note ---
Date of Service August 12, 2021 Assessment & Plan (1) Acute alteration in mental status: Plan: Metabolic encephalopathy vs encephalopathy due to medication use/misuse 76 y/o F w/ morbid obesity, DM II, diabetic polyneuropathy, nephropathy, CKD IV, CAD, chronic diastolic HF, HTN, HLD, secondary hyperparathyroidism, bilateral lymphedema, mood disorder presents with AMS. Reported pt found to be sitting in urine and feces and confused. Unable to obtain history from patient or sisters at the time of admission. Talked to one of the patient's sisters today, August 12, she told me that she was asleep and was not sure what actually happened. It seems like one of the home health nurses found patient barely responding/confused and called the ambulance. In ER patient afebrile, vitals stable. no leukocytosis, negative UA, negative lactate and procalcitonin. CT head and C-spine no acute findings. CXR without acute findings No signs of active underlying infection at this time. Unknown if AMS may be caused by medications or medication misuse Blood culture - no growth in 48 hrs Urine culture - 20,000 Diphteroids. Repeat UA- pending Cr increased at 2.2 Hold clonazepam and oxycodone at this time Monitor NPO initially - now cleared by speech monitor CBC, BMP 08/09 - Mental status already improved -she is able to answer simple questions appropriately, however does not recall what happened prior to her coming to the hospital She says that she lives with her sisters. 08/10 - Mental status is much improved, she is able to answer questions appropriately. Says that her sisters were not able to answer the phone as they cannot hear, and their hearing aid was not working. However pt still doesn't remember what happened to her prior to coming to the hospital. She says that she was in wound clinic several days ago and her wound VAC was discontinued. She felt well at that time. 08/11 -encephalopathy resolved. Patient is able to answer questions appropriately, patient seems to be at her baseline. Reported some burning with urination, will repeat UA. Awaiting wound consult as well, in the meantime we will continue antibiotics. Creatinine 1.8 08/12 -encephalopathy resolved. Patient's mental status is back to baseline. Repeat UA, pending. Discussed with wound care nurse, she will be seeing the patient and, appreciate recommendations. Also discussed with patient's sister, she was asleep when patient became less responsive, and she could not provide any more history. Creatinine improved after gentle IV fluids. Will need to follow-up BMP as outpatient. (2) Acute on chronic kidney failure: Plan: History CKD III-IV Cr: 2.2. Was 1.3 on 05/12/21 and 2.3 on 05/02/21 Gentle IVF Hold lasix and lisinopril and reassess daily Monitor renal functions. If no improvement consider nephrology consult Cr initially improved ->1.9 -> 1.7 Then up again 1.8 08/12 Currently 1.5 after gentle IVF, will stop IVF now Likely will need to decrease lasix dose on DC Seen by Dr. Hicks as outpt as well Left Leg Wound Following with [facility] with wound clinic for wound to left lower leg that has been healing well. Was on doxycycline however that has been switched to Keflex secondary to GI intolerance. Wound culture was +staph aureus (as outpt) Wound does not appear infected Stopped Keflex and changed to Rocephin while inpt Wound care consulted, discussed in detail on 08/12, appreciate their recommendations Chronic heart failure with preserved ejection fraction: Hold Lasix currently and monitor I&O's and reassess daily CAD: Denies CP Continue carvedilol, isosorbide, aspirin Insulin dependent diabetes mellitus II A1c 6.4 in 04/15/21 Hold home insulin Lantus/NovoLog per protocol Current A1c 6.5% Hypertension: BP elevated, likely patient not taking medications Continue amlodipine, carvedilol, hydralazine, Terazosin, isosorbide Hold lisinopril with current MAGGIE Chronic anemia: Hgb: 9.3. At baseline Monitor H&H Ambulatory dysfunction: Pt sedentary at baseline Will need PT/OT consult when appropriate Mood disorder: Continue sertraline Hold clonazepam with current AMS DVT Prophylaxis SCDs Full Code as unable to discuss with patient or patient's sister Follows with Dr Bullock for routine care Admission and Anticipated Discharge Date Admission Date: August 08, 2021 Subjective Patient seen in follow-up of altered mental status Currently laying in bed, in ED holding area Her mental status much improved, she is back to baseline She does not recall what happened prior to her coming to the hospital She lives with her 2 sisters, talked to one of her sisters today, and she could not tell me what actually happened, says that she was asleep. It sounds like home nurse found patient not responding appropriately and called the ambulance. Tried to call patient's sister several times, without answer before. Discussed this with the patient, and my concerns for her safety at home, she feels that she has plenty of help. Pt was seen in wound clinic on August 04, at that time she seemed to be at her baseline. She tells me that she remembers that her wound VAC was discontinued, and she was glad about it because it was difficult to carry around. Talk to wound care provider today, and they will be seeing the patient today. They are also concerned about her wound, and her previous episodes of altered mental status as well. Currently denies any fevers, chills, chest pain, shortness of breath, abdominal pain, nausea or vomiting, says that she is feeling fine Review of Systems Review of Systems: All systems reviewed & are unremarkable except as noted in Subjective Physical Exam Physical Exam: General: obese F in NAD Head: normocephalic, atraumatic Eyes: PERRL, EOM's appear intact, conjunctiva non-injected, anicteric ENT: normal inspection external ears, nose, mucous membranes moist Neck: supple, trachea midline Lungs: no respiratory distress, diminished CV: RRR, distant heart sounds, 1+ pretibial edema Abd: +obese, normal BS, soft, non-tender Ext: left lower leg with small wound without surrounding erythema, no discharge Neuro: Awake. Able to answer questions appropriately (much improved). No facial asymmetry, speech fluent, moves extremities. Skin: warm, dry, +erythema skin folds Results & Data Results & Data ([facility]) Vital Signs (Past 12 Hours) Vital Signs Temp Pulse Resp BP Pulse Ox Pulse Ox 08/12/21 04:16 37.2 C 61 18 117/68 97 08/11/21 23:32 97 08/11/21 23:30 37.2 C 80 18 138/54 L 98 08/11/21 20:00 98 Laboratory Results 08/12/21 08/12/21 08/11/21 Range/Units 05:37 05:37 20:27 WBC 10.69 (4.8-10.8) K/uL RBC 2.60 L (4.2-5.4) M/uL Hgb 7.7 L (12.0-16.0) g/dL Hct 24.2 L (37-47) % MCV 93.1 (80-100) fL MCH 29.6 (25-34) pg MCHC 31.8 L (32-36) g/dL RDW Std Deviation 47.6 H (36.4-46.3) fL RDW Coeff of Isabel 14.2 (11.5-14.5) % Plt Count 220 (130-400) K/uL MPV 9.3 (7.4-10.4) fL Sodium 141 (136-145) mmol/L Potassium 4.0 (3.5-5.1) mmol/L Chloride 112 H (98-107) mmol/L Carbon Dioxide 23 (21-32) mmol/L Anion Gap 6.0 (3-11) BUN 33 H (7-18) mg/dl Creatinine 1.53 H D (0.6-1.2) mg/dl Est Cr Clr Drug Dosing 33.8 ml/min Est GFR ( Amer) 37.9 ml/min Est GFR (Non-Af Amer) 32.7 ml/min BUN/Creatinine Ratio 21.5 H (10-20) Glucose 100 H (70-99) mg/dl POC Glucose 169 H (70-99) mg/dl Calcium 8.5 (8.5-10.1) mg/dl Phosphorus 4.3 (2.5-4.9) mg/dl Magnesium 2.0 (1.8-2.4) mg/dl Urine Color Urine Appearance (Clear) Urine pH (4.5-7.5) Ur Specific [place] (1.000-1.030) Urine Protein (Negative) Urine Glucose (UA) (Negative) Urine Ketones (Negative) Urine Blood (Negative) Urine Nitrite (Negative) Urine Bilirubin (Negative) Urine Urobilinogen (Negative) Ur Leukocyte Esterase (Negative) Urine WBC (Auto) (0-5) /hpf Urine RBC (Auto) (0-4) /hpf U Hyaline Cast (Auto) (0-5) /lpf U Epithel Cells (Auto) (0-5) /lpf Urine Bacteria (Auto) (Negative) 08/11/21 08/11/21 08/11/21 Range/Units 17:29 16:48 12:08 WBC (4.8-10.8) K/uL RBC (4.2-5.4) M/uL Hgb (12.0-16.0) g/dL Hct (37-47) % MCV (80-100) fL MCH (25-34) pg MCHC (32-36) g/dL RDW Std Deviation (36.4-46.3) fL RDW Coeff of Isabel (11.5-14.5) % Plt Count (130-400) K/uL MPV (7.4-10.4) fL Sodium (136-145) mmol/L Potassium (3.5-5.1) mmol/L Chloride (98-107) mmol/L Carbon Dioxide (21-32) mmol/L Anion Gap (3-11) BUN (7-18) mg/dl Creatinine (0.6-1.2) mg/dl Est Cr Clr Drug Dosing ml/min Est GFR ( Amer) ml/min Est GFR (Non-Af Amer) ml/min BUN/Creatinine Ratio (10-20) Glucose (70-99) mg/dl POC Glucose 90 219 H (70-99) mg/dl Calcium (8.5-10.1) mg/dl Phosphorus (2.5-4.9) mg/dl Magnesium (1.8-2.4) mg/dl Urine Color Yellow Urine Appearance Clear (Clear) Urine pH 7.5 (4.5-7.5) Ur Specific [place] 1.011 (1.000-1.030) Urine Protein Negative (Negative) Urine Glucose (UA) Negative (Negative) Urine Ketones Negative (Negative) Urine Blood Negative (Negative) Urine Nitrite Negative (Negative) Urine Bilirubin Negative (Negative) Urine Urobilinogen Negative (Negative) Ur Leukocyte Esterase 2+ H (Negative) Urine WBC (Auto) 10-30 H (0-5) /hpf Urine RBC (Auto) 5-10 H (0-4) /hpf U Hyaline Cast (Auto) 0 (0-5) /lpf U Epithel Cells (Auto) >30 H (0-5) /lpf Urine Bacteria (Auto) Negative (Negative) 08/11/21 Range/Units 05:59 WBC (4.8-10.8) K/uL RBC (4.2-5.4) M/uL Hgb (12.0-16.0) g/dL Hct (37-47) % MCV (80-100) fL MCH (25-34) pg MCHC (32-36) g/dL RDW Std Deviation (36.4-46.3) fL RDW Coeff of Isabel (11.5-14.5) % Plt Count (130-400) K/uL MPV (7.4-10.4) fL Sodium 139 (136-145) mmol/L Potassium 4.1 (3.5-5.1) mmol/L Chloride 109 H (98-107) mmol/L Carbon Dioxide 24 (21-32) mmol/L Anion Gap 6.0 (3-11) BUN 40 H (7-18) mg/dl Creatinine 1.84 H (0.6-1.2) mg/dl Est Cr Clr Drug Dosing 28.1 ml/min Est GFR ( Amer) 30.3 ml/min Est GFR (Non-Af Amer) 26.2 ml/min BUN/Creatinine Ratio 22.0 H (10-20) Glucose 105 H (70-99) mg/dl POC Glucose (70-99) mg/dl Calcium 8.7 (8.5-10.1) mg/dl Phosphorus 4.3 (2.5-4.9) mg/dl Magnesium 2.1 (1.8-2.4) mg/dl Urine Color Urine Appearance (Clear) Urine pH (4.5-7.5) Ur Specific [place] (1.000-1.030) Urine Protein (Negative) Urine Glucose (UA) (Negative) Urine Ketones (Negative) Urine Blood (Negative) Urine Nitrite (Negative) Urine Bilirubin (Negative) Urine Urobilinogen (Negative) Ur Leukocyte Esterase (Negative) Urine WBC (Auto) (0-5) /hpf Urine RBC (Auto) (0-4) /hpf U Hyaline Cast (Auto) (0-5) /lpf U Epithel Cells (Auto) (0-5) /lpf Urine Bacteria (Auto) (Negative) Medications Administered Current Inpatient Medications Acetaminophen (Acetaminophen 325 Mg Tab) 650 mg PO Q4H PRN PRN Reason: Pain or Fever Stop: 09/07/21 20:12 Last Admin: 08/11/21 18:51 Dose: 650 mg Documented by: Amlodipine Besylate (Amlodipine Besylate 5 Mg Tab) 10 mg PO QAM [facility] Stop: 09/08/21 08:59 Last Admin: 08/11/21 08:15 Dose: 10 mg Documented by: Aspirin (Aspirin 81 Mg Ectab) 81 mg PO DAILY [facility] Stop: 09/08/21 08:59 Last Admin: 08/11/21 08:15 Dose: 81 mg Documented by: Carvedilol (Carvedilol 6.25 Mg Tab) 6.25 mg PO AMHS [facility] Stop: 09/07/21 20:59 Last Admin: 08/11/21 20:22 Dose: 6.25 mg Documented by: Dextrose (Dextrose 50% 50 Ml Syringe) 25 - 50 ml IV UD PRN; Protocol PRN Reason: Hypoglycemia Protocol Stop: 09/07/21 20:12 Famotidine (Famotidine 20 Mg Tab) 20 mg PO DAILY [facility] Stop: 09/08/21 08:59 Last Admin: 08/11/21 08:16 Dose: 20 mg Documented by: Fluticasone Propionate (Fluticasone Propionate Na Spr 16 Gm Btl) 2 sprays ANSELMO DAILY [facility] Stop: 09/08/21 08:59 Last Admin: 08/11/21 08:17 Dose: 2 sprays Documented by: Gabapentin (Gabapentin 300 Mg Cap) 300 mg PO TID [facility] Stop: 09/07/21 20:59 Last Admin: 08/11/21 20:23 Dose: 300 mg Documented by: Glucagon (Glucagon For Inj 1 Mg Vial) 1 mg SQ UD PRN; Protocol PRN Reason: Hypoglycemia Protocol Stop: 09/07/21 20:12 Glucose (Glucose 10 Tabs/Tube) 4 - 8 tabs PO UD PRN; Protocol PRN Reason: Hypoglycemia Protocol Stop: 09/07/21 20:12 Glucose (Glucose 40% Gel 15 Gm Tube) 15 - 30 gm PO UD PRN; Protocol PRN Reason: Hypoglycemia Protocol Stop: 09/07/21 20:12 Hydralazine HCl (Hydralazine Tab 50 Mg Tab) 50 mg PO TID [facility] Stop: 09/07/21 20:59 Last Admin: 08/11/21 20:23 Dose: 50 mg Documented by: Hydralazine HCl (Hydralazine Hcl 20 Mg/Ml Vial) 2.5 mg IV Q4H PRN PRN Reason: SBP> 165 Stop: 09/08/21 09:32 Last Admin: 08/09/21 18:41 Dose: 2.5 mg Documented by: Ceftriaxone Sodium 2,000 mg/ (Dextrose) 70 mls @ 140 mls/hr IV Q24H [facility] Stop: 08/15/21 21:29 Last Infusion: 08/11/21 22:02 Dose: Infused Documented by: Sodium Chloride (Nss 1000ml) 1,000 mls @ 80 mls/hr IV .[id number] [facility] Stop: 09/10/21 15:29 Last Admin: 08/12/21 05:59 Dose: 80 mls/hr Documented by: Insulin Aspart (Insulin Aspart Per Unit) 0 units SC ACHS [facility] Stop: 09/07/21 20:59 Last Admin: 08/11/21 20:29 Dose: Not Given Documented by: Insulin Glargine (Insulin Glargine Solostar 100 Units/Ml 3 Ml Pen) 0 - 20 units SC BID [facility] Stop: 09/07/21 20:59 Last Admin: 08/11/21 20:29 Dose: 10 units Documented by: Isosorbide Mononitrate (Isosorbide [place] Extended Rel 60 Mg Tabcr) 120 mg PO QAM [facility] Stop: 09/08/21 08:59 Last Admin: 08/11/21 08:16 Dose: 120 mg Documented by: Lactobacillus Acidoph/Casei/Rhamnos (Advanced Probiotic 1250 Mg Capsule) 1 cap PO TID [facility] Stop: 09/07/21 20:59 Last Admin: 08/11/21 20:23 Dose: 1 cap Documented by: Miscellaneous (Carbohydrates For Hypoglycemia ) 15 - 30 gm PO UD PRN PRN Reason: Hypoglycemia Protocol Stop: 09/07/21 20:12 Nitroglycerin (Nitroglycerin Sl 0.4 Mg/Tab Tab) 0.4 mg SL UD PRN PRN Reason: Chest Pain Stop: 09/07/21 20:12 Nystatin (Nystatin Powder 15gm Btl) 1 appln EXT BID [facility] Stop: 09/07/21 20:59 Last Admin: 08/11/21 20:23 Dose: 1 appln Documented by: Pantoprazole Sodium (Pantoprazole 40 Mg Tab) 40 mg PO QAM [facility] Stop: 09/08/21 08:59 Last Admin: 08/11/21 08:15 Dose: 40 mg Documented by: Petrolatum (Butt Paste (Zinc Oxide 16%) 171 Appln/57 Gm Jar) 1 appln EXT PRN PRN PRN Reason: BUTTOCK EXCORIATION Stop: 09/07/21 21:21 Last Admin: 08/09/21 09:45 Dose: 1 appln Documented by: Polyethylene Glycol (Polyethylene (Miralax) 17 Gm Pack) 17 gm PO QAM PRN PRN Reason: Constipation Stop: 09/07/21 20:12 Sertraline HCl (Sertraline Hcl 50 Mg Tablet) 50 mg PO QAM [facility] Stop: 09/08/21 08:59 Last Admin: 08/11/21 08:15 Dose: 50 mg Documented by: Terazosin HCl (Terazosin Hcl 1 Mg Cap) 1 mg PO HS [facility] Stop: 09/07/21 20:59 Last Admin: 08/11/21 20:40 Dose: 1 mg Documented by: Topiramate (Topiramate 25 Mg Tab) 25 mg PO BID [facility] Stop: 09/07/21 20:59 Last Admin: 08/11/21 20:23 Dose: 25 mg Documented by:
[2021-08-12] MEDS: ASPIRIN 81 MG ECTAB PO SCH (08:27)
[2021-08-12] MEDS: FAMOTIDINE 20 MG TAB PO SCH (08:28)
[2021-08-12] MEDS: PANTOprazole 40 MG TAB PO SCH (08:28)
[2021-08-12] MEDS: SERTRALINE HCL 50 MG TABLET PO SCH (08:28)
[2021-08-12] MEDS: hydrALAZINE TAB 50 MG TAB PO SCH ×3 (08:28→20:34)
[2021-08-12] MEDS: ISOSORBIDE MONO EXTENDED REL 60 MG TABCR PO SCH (08:28)
[2021-08-12] MEDS: amLODIPine BESYLATE 5 MG TAB PO SCH (08:29)
[2021-08-12] MEDS: FLUTICASONE PROPIONATE NA SPR 16 GM BTL NAE SCH (08:30)
[2021-08-12] MEDS: TOPIRAMATE 25 MG TAB PO SCH ×2 (08:38→20:36)
[2021-08-12] MEDS: GABAPENTIN 300 MG CAP PO SCH ×3 (08:38→20:34)
[2021-08-12] MEDS: carvediloL 6.25 MG TAB PO SCH ×2 (08:38→20:35)
[2021-08-12] MEDS: ADVANCED PROBIOTIC 1250 MG CAPSULE PO SCH ×3 (08:38→20:35)
[2021-08-12] MEDS: INSULIN GLARGINE SOLOSTAR 100 UNITS/ML 3 ML PEN SC SCH ×2 (09:00→20:33)
[2021-08-12] MEDS: INSULIN ASPART PER UNIT SC SCH ×4 (09:00→22:42)
[2021-08-12] MEDS: NYSTATIN POWDER 15GM BTL EXT SCH ×2 (11:30→20:36)
[2021-08-12] MEDS: TERAZOSIN HCL 1 MG CAP PO SCH (20:36)
[2021-08-12] MEDS: cefTRIAXone SODIUM 2,000 MG in DEXTROSE 5% 50 ML IV SCH (22:35)
[2021-08-13 08:00] LABS: BUN Creatinine Ratio 20.2 (10-20); Calcium 8.7 mg/dl (8.5-10.1); Creatinine Clr Calc Pharmacy 33.8 ml/min; Est GFR (African American) 37.9 ml/min; Est GFR (Non-African American) 32.7 ml/min
[2021-08-13] MEDS: hydrALAZINE TAB 50 MG TAB PO SCH ×3 (08:23→21:32)
[2021-08-13] MEDS: carvediloL 6.25 MG TAB PO SCH ×2 (08:23→21:32)
[2021-08-13] MEDS: TOPIRAMATE 25 MG TAB PO SCH ×2 (08:23→21:32)
[2021-08-13] MEDS: GABAPENTIN 300 MG CAP PO SCH ×3 (08:23→21:31)
[2021-08-13] MEDS: ADVANCED PROBIOTIC 1250 MG CAPSULE PO SCH ×3 (08:23→21:32)
[2021-08-13] MEDS: SERTRALINE HCL 50 MG TABLET PO SCH (08:25)
[2021-08-13] MEDS: FAMOTIDINE 20 MG TAB PO SCH (08:25)
[2021-08-13] MEDS: amLODIPine BESYLATE 5 MG TAB PO SCH (08:25)
[2021-08-13] MEDS: PANTOprazole 40 MG TAB PO SCH (08:26)
[2021-08-13] MEDS: ISOSORBIDE MONO EXTENDED REL 60 MG TABCR PO SCH (08:26)
[2021-08-13] MEDS: ASPIRIN 81 MG ECTAB PO SCH (08:26)
[2021-08-13] MEDS: FLUTICASONE PROPIONATE NA SPR 16 GM BTL NAE SCH (08:27)
[2021-08-13] MEDS: NYSTATIN POWDER 15GM BTL EXT SCH ×2 (08:27→21:02)
[2021-08-13] MEDS: INSULIN GLARGINE SOLOSTAR 100 UNITS/ML 3 ML PEN SC SCH ×2 (08:29→21:26)
[2021-08-13] MEDS: INSULIN ASPART PER UNIT SC SCH ×4 (08:33→21:25)
--- NOTE | 2021-08-13 13:01 | Hospitalist Progress Note ---
Date of Service August 13, 2021 Assessment & Plan (1) Acute alteration in mental status: (2) Acute on chronic kidney failure: Plan: 76 y/o F w/ morbid obesity, DM II, diabetic polyneuropathy, nephropathy, CKD IV, CAD, chronic diastolic HF, HTN, HLD, secondary hyperparathyroidism, bilateral lymphedema, mood disorder presents with AMS. Reported pt found to be sitting in urine and feces and confused. Per previous provider: Talked to one of the patient's sisters today, August 12, she told me that she was asleep and was not sure what actually happened. It seems like one of the home health nurses found patient barely responding/confused and called the ambulance. Altered mental status Metabolic encephalopathy vs encephalopathy due to medication use/misuse Unknown if AMS may be caused by medications or medication misuse. Home clonazepam and oxycodone remain on hold. Head CT negative for acute intracranial findings Mental status seems to have returned to baseline. Possible UTI Admission UA did not suggest infection however repeat UA on 08/11 was suggestive of UTI. Urine culture 08/08 grew diphtheroids, likely contaminant Urine culture from 08/11 growing GPC On ceftriaxone (day 6) Per admission HPI, patient was possibly taking doxycycline or Keflex prior to admission for LLE wound Blood cultures no growth MAGGIE on CKD stage III-IV Resolved Creatinine 2.23 on presentation Received IVF Baseline creatinine seems to run in the mid-high 1's Creatinine 1.5 today Lasix and lisinopril held on admission. Will resume home dose of lisinopril 10 mg daily today and Lasix 20 mg daily (reduced from 40 mg daily home dose). Outpatient follow-up with nephrology Chronic anemia: Baseline Hgb ~ 9-10 Hgb 7.7 08/12/2021 No signs of bleeding Outpatient record review notes that patient was to receive Venofer infusions in April however they were not completed. Patient will need outpatient follow-up for benefit her infusions and screening colonoscopy. Last colonoscopy in 2018 -3-year follow-up was recommended Left Leg Wound Following with [facility] with wound clinic for wound to left lower leg that has been healing well. Wound culture was +staph aureus (as outpt) Per admission HPI, patient was possibly taking doxycycline or Keflex prior to admission for LLE wound On admission, patient was placed on IV ceftriaxone. Wound does not appear infected and is healing well - does not need further antibiotics for LLE wound Wound care nurse following Chronic heart failure with preserved ejection fraction: Resuming Lasix at a reduced dose today as above CAD: Appears stable Continue carvedilol, isosorbide, aspirin Insulin dependent diabetes mellitus II Hold home insulin Lantus/NovoLog per protocol Current A1c 6.5% Hypertension: BP variable during admission, highest reading this morning 185/84 Continue amlodipine, carvedilol, hydralazine, Terazosin, isosorbide Resuming lisinopril and Lasix today Ambulatory dysfunction: Pt sedentary at baseline PT/OT Mood disorder: Continue sertraline and topiramate Clonazepam held due to AMS DVT Prophylaxis SCDs Dispo: Patient lives at home with her 2 sisters and one niece. Case management discussed with patient's sister, Jaz who states that she wishes for the patient to return home at discharge and is able to help her. Patient is active with [facility] home health. Also note that patient refuses discharged to rehab. Likely discharge home tomorrow. Admission and Anticipated Discharge Date Admission Date: August 08, 2021 Supervising Physician Co-Signing Physician Notes Patient is seen and examined at bedside. States feeling well today. Refuses rehab placement. States having right rib pain which she believes is secondary to recent fall. On exam patient is obese, no apparent distress, normocephalic atraumatic, lungs are clear to auscultation, normal breath sounds, S1-S2,+ murmur, trace pedal edema, abdomen soft, nontender, normal bowel sounds, alert, awake, oriented, grossly no focal deficits, left lower extremity wound in dressing. Mental status seem to be back to baseline. Follow-up urine culture. Continue Rocephin for now. Monitor renal function for MAGGIE. Patient refuses rehab placement. Case management to help with discharge planning. I personally reviewed the record. Patient is interviewed and examined at bedside. Patient's care is coordinated with Kiki Esposito APPRAISAL ANALYST. Please refer to the documentation above for details of patient's presentation and for discussion of other issues. Subjective Patient seen and examined. Follow-up for altered mental status, MAGGIE. Resting in bed. Offers no complaints. Eager to be discharged home. Denies chest pain or shortness of breath. No abdominal pain or nausea. Review of Systems Review of Systems: ROS per HPI, all other systems reviewed and negative Physical Exam Constitutional: WD/WN, vitals as above + obese; no acute distress Respiratory: normal respiratory effort; no respiratory distress Auscultation: + diminished lung sounds Cardiovascular: Rate/Rhythm: regular rate and regular rhythm Vessels: normal peripheral pulses Extremities: no edema Gastrointestinal (Abdomen): Percussion/Palpation: abdomen soft; abdomen nontender Skin: no rashes, warm and dry Dressing CDI LLE Neurologic: no focal motor deficits Psychiatric: A+Ox3, euthymic affect Results & Data Results & Data ([facility]) Vital Signs (Past 12 Hours) Vital Signs Temp Pulse Resp BP Pulse Ox 08/13/21 08:06 36.7 C 68 18 185/84 H 98 Laboratory Results [facility] 08/13/21 07:06 Sodium 141 Potassium 4.0 Chloride 113 H Carbon Dioxide 19 L BUN 31 H Creatinine 1.53 H Glucose 112 H Calcium 8.7
[2021-08-13] MEDS: FUROSEMIDE 20 MG TAB PO SCH (15:07)
[2021-08-13] MEDS: lisinopril 10 MG TAB PO SCH (15:07)
[2021-08-13] MEDS: hydrALAZINE HCL 20 MG/ML VIAL IV PRN (17:21)
[2021-08-13] MEDS: cefTRIAXone SODIUM 2,000 MG in DEXTROSE 5% 50 ML IV SCH (21:30)
[2021-08-13] MEDS: TERAZOSIN HCL 1 MG CAP PO SCH (21:32)
[2021-08-14 07:04] LABS: Hematocrit (blood only) 26.9 % (37-47); Hemoglobin 8.7 g/dL (12.0-16.0); Mean Corpuscular Hemoglobin 30.2 pg (25-34); Mean Corpuscular Hgb Conc 32.3 g/dL (32-36); Mean Corpuscular Volume 93.4 fL (80-100); Mean Platelet Volume 9.9 fL (7.4-10.4); Platelet Count 247 K/uL (130-400); RDW Coefficient of Variation 14.8 % (11.5-14.5); RDW Standard Deviation 49.6 fL (36.4-46.3); Red Blood Count 2.88 M/uL (4.2-5.4); White Blood Count 11.53 K/uL (4.8-10.8)
[2021-08-14 07:43] LABS: BUN Creatinine Ratio 20.8 (10-20); Creatinine Clr Calc Pharmacy 31.7 ml/min; Est GFR (African American) 35.1 ml/min; Est GFR (Non-African American) 30.3 ml/min; Potassium 3.7 mmol/L (3.5-5.1)
[2021-08-14] MEDS: ASPIRIN 81 MG ECTAB PO SCH (07:51)
[2021-08-14] MEDS: ISOSORBIDE MONO EXTENDED REL 60 MG TABCR PO SCH (07:51)
[2021-08-14] MEDS: amLODIPine BESYLATE 5 MG TAB PO SCH (07:52)
[2021-08-14] MEDS: lisinopril 10 MG TAB PO SCH (07:52)
[2021-08-14] MEDS: FUROSEMIDE 20 MG TAB PO SCH (07:52)
[2021-08-14] MEDS: TOPIRAMATE 25 MG TAB PO SCH (07:52)
[2021-08-14] MEDS: carvediloL 6.25 MG TAB PO SCH (07:53)
[2021-08-14] MEDS: PANTOprazole 40 MG TAB PO SCH (07:53)
[2021-08-14] MEDS: GABAPENTIN 300 MG CAP PO SCH (07:53)
[2021-08-14] MEDS: SERTRALINE HCL 50 MG TABLET PO SCH (07:53)
[2021-08-14] MEDS: ADVANCED PROBIOTIC 1250 MG CAPSULE PO SCH (07:53)
[2021-08-14] MEDS: FLUTICASONE PROPIONATE NA SPR 16 GM BTL NAE SCH (07:54)
[2021-08-14] MEDS: NYSTATIN POWDER 15GM BTL EXT SCH (07:54)
[2021-08-14] MEDS: INSULIN GLARGINE SOLOSTAR 100 UNITS/ML 3 ML PEN SC SCH (08:51)
[2021-08-14] MEDS: INSULIN ASPART PER UNIT SC SCH ×2 (08:52→12:46)
[2021-08-14] MEDS: ACETAMINOPHEN 325 MG TAB PO PRN (09:33)
[2021-08-14] MEDS: FAMOTIDINE 20 MG TAB PO SCH (09:33)
--- NOTE | 2021-08-14 09:53 | Hospitalist Progress Note ---
Date of Service August 14, 2021 Assessment & Plan (1) Acute alteration in mental status: (2) Acute on chronic kidney failure: Plan: 76 y/o F w/ morbid obesity, DM II, diabetic polyneuropathy, nephropathy, CKD IV, CAD, chronic diastolic HF, HTN, HLD, secondary hyperparathyroidism, bilateral lymphedema, mood disorder presents with AMS. Reported pt found to be sitting in urine and feces and confused. Per previous provider: Talked to one of the patient's sisters today, August 12, she told me that she was asleep and was not sure what actually happened. It seems like one of the home health nurses found patient barely responding/confused and called the ambulance. Altered mental status Metabolic encephalopathy vs encephalopathy due to medication use/misuse Unknown if AMS may be caused by medications or medication misuse. Home clonazepam and oxycodone remain on hold. Head CT negative for acute intracranial findings Mental status seems to have returned to baseline. B1 pending Possible UTI Admission UA did not suggest infection however repeat UA on 08/11 was suggestive of UTI. Urine culture 08/08 grew diphtheroids, likely contaminant Urine culture from 08/11 growing GPC On ceftriaxone (day 7) Await urine culture prior to discharge to ensure pt on appropriate antibiotic MAGGIE on CKD stage III-IV Resolved Creatinine 2.23 on presentation Received IVF Baseline creatinine seems to run in the mid-high 1's Creatinine 1.63 today Lasix and lisinopril held on admission. Home dose of lisinopril 10 mg daily resumed and Lasix 20 mg daily (reduced from 40 mg daily home dose). Outpatient follow-up with nephrology follow labs Chronic anemia: Baseline Hgb ~ 9-10 Hgb 8.7 08/12/2021 No signs of bleeding Outpatient record review notes that patient was to receive Venofer infusions in April however they were not completed. Patient will need outpatient follow-up for benefit her infusions and screening colonoscopy. Last colonoscopy in 2018 -3-year follow-up was recommended Left Leg Wound Following with [facility] with wound clinic for wound to left lower leg that has been healing well. Wound culture was +staph aureus (as outpt) Per admission HPI, patient was possibly taking doxycycline or Keflex prior to admission for LLE wound On admission, patient was placed on IV ceftriaxone. Wound does not appear infected and is healing well - does not need further antibiotics for LLE wound Wound care nurse following Chronic heart failure with preserved ejection fraction: lasix resumed, pt euvolemic CAD: Appears stable Continue carvedilol, isosorbide, aspirin Insulin dependent diabetes mellitus II Hold home insulin Lantus/NovoLog per protocol - pt with hypoglycemia last evening, will reduce insulin regimen Current A1c 6.5% Hypertension: BP variable during admission, highest reading this morning 147/67 Continue amlodipine, carvedilol, hydralazine, Terazosin, isosorbide lisinopril and lasix resumed 08/13, BP improving, monitor Ambulatory dysfunction: Pt sedentary at baseline PT/OT Mood disorder: Continue sertraline and topiramate Clonazepam held due to AMS DVT Prophylaxis SCDs Dispo: Patient lives at home with her 2 sisters and one niece. Case management discussed with patient's sister, Jaz who states that she wishes for the patient to return home at discharge and is able to help her. Patient is active with [facility] home health. Also note that patient refuses discharged to rehab. Pt wbc mildly increased this a.m., awaiting urine culture to return. If urine culture returns today may be able to dc later today, will monitor Admission and Anticipated Discharge Date Admission Date: August 08, 2021 Subjective Patient was seen and examined in room 302. Follow up AMS and MAGGIE. She offers no acute concerns. C/O R shoulder pain. Wishes to be discharged home. Denies f/c/s, chest pain, sob, n/v/d. SHe is moving bowels once daily and loose. Overall good appetite. Review of Systems Review of Systems: All systems reviewed & are unremarkable except as noted in HPI & below Physical Exam Physical Exam: Gen: WD/WN, Elderly, F, NAD, A&O x3 HEENT: Normocephalic, atraumatic, conjunctivae moist, sclerae anicteric, mucous membranes moist. Lung: Clear to Auscultation bilaterally, no wheezes/rales/rhonchi Heart: Regular rate, regular rhythm, 2/6 RAMAN noted RUSB, rubs, or gallops Abdomen: obese abd Soft, NT, ND +BS x 4 Extremities: No edema, dressing LLE CDI Skin: Warm, no rash, negative turgor. Results & Data Results & Data ([facility]) Vital Signs (Past 12 Hours) Vital Signs Temp Pulse Resp BP Pulse Ox 08/14/21 07:10 36.8 C 71 16 147/67 H 97 Laboratory Results Short CBC 08/14/21 Range/Units 06:19 WBC 11.53 H (4.8-10.8) K/uL Hgb 8.7 L (12.0-16.0) g/dL Hct 26.9 L (37-47) % Plt Count 247 (130-400) K/uL BMP 08/14/21 06:19 Sodium 138 Potassium 3.7 Chloride 109 H Carbon Dioxide 21 BUN 34 H Creatinine 1.63 H Glucose 143 H Calcium 9.0 Medications Administered Current Inpatient Medications Acetaminophen (Acetaminophen 325 Mg Tab) 650 mg PO Q4H PRN PRN Reason: Pain or Fever Stop: 09/07/21 20:12 Last Admin: 08/14/21 09:33 Dose: 650 mg Documented by: Amlodipine Besylate (Amlodipine Besylate 5 Mg Tab) [facility] Stop: 09/08/21 08:59 Last Admin: 08/14/21 07:52 Dose: 10 mg Documented by: Aspirin (Aspirin 81 Mg Ectab) 81 mg PO DAILY [facility] Stop: 09/08/21 08:59 Last Admin: 08/14/21 07:51 Dose: 81 mg Documented by: Carvedilol (Carvedilol 6.25 Mg Tab) 6.25 mg PO [facility] Stop: 09/07/21 20:59 Last Admin: 08/14/21 07:53 Dose: 6.25 mg Documented by: Dextrose (Dextrose 50% 50 Ml Syringe) 25 - 50 ml IV UD PRN; Protocol PRN Reason: Hypoglycemia Protocol Stop: 09/07/21 20:12 Famotidine (Famotidine 20 Mg Tab) 20 mg PO DAILY [facility] Stop: 09/08/21 08:59 Last Admin: 08/14/21 09:33 Dose: 20 mg Documented by: Fluticasone Propionate (Fluticasone Propionate Na Spr 16 Gm Btl) 2 sprays ANSELMO DAILY [facility] Stop: 09/08/21 08:59 Last Admin: 08/14/21 07:54 Dose: 2 sprays Documented by: Furosemide (Furosemide 20 Mg Tab) 20 mg PO QAM [facility] Stop: 09/12/21 12:44 Last Admin: 08/14/21 07:52 Dose: 20 mg Documented by: Gabapentin (Gabapentin 300 Mg Cap) 300 mg PO TID [facility] Stop: 09/07/21 20:59 Last Admin: 08/14/21 07:53 Dose: 300 mg Documented by: Glucagon (Glucagon For Inj 1 Mg Vial) 1 mg SQ UD PRN; Protocol PRN Reason: Hypoglycemia Protocol Stop: 09/07/21 20:12 Glucose (Glucose 10 Tabs/Tube) 4 - 8 tabs PO UD PRN; Protocol PRN Reason: Hypoglycemia Protocol Stop: 09/07/21 20:12 Glucose (Glucose 40% Gel 15 Gm Tube) 15 - 30 gm PO UD PRN; Protocol PRN Reason: Hypoglycemia Protocol Stop: 09/07/21 20:12 Hydralazine HCl (Hydralazine Tab 50 Mg Tab) 50 mg PO TID [facility] Stop: 09/07/21 20:59 Last Admin: 08/13/21 21:32 Dose: 50 mg Documented by: Hydralazine HCl (Hydralazine Hcl 20 Mg/Ml Vial) 2.5 mg IV Q4H PRN PRN Reason: SBP> 165 Stop: 09/08/21 09:32 Last Admin: 08/13/21 17:21 Dose: 2.5 mg Documented by: Ceftriaxone Sodium 2,000 mg/ (Dextrose) 70 mls @ 140 mls/hr IV Q24H [facility] Stop: 08/15/21 21:29 Last Infusion: 08/13/21 22:49 Dose: Infused Documented by: Insulin Aspart (Insulin Aspart Per Unit) 0 units SC ACHS [facility] Stop: 09/07/21 20:59 Last Admin: 08/14/21 08:52 Dose: 2 units Documented by: Insulin Glargine (Insulin Glargine Solostar 100 Units/Ml 3 Ml Pen) 0 - 20 units SC BID [facility] Stop: 09/07/21 20:59 Last Admin: 08/14/21 08:51 Dose: 10 units Documented by: Isosorbide Mononitrate (Isosorbide [place] Extended Rel 60 Mg Tabcr) 120 mg PO QAM [facility] Stop: 09/08/21 08:59 Last Admin: 08/14/21 07:51 Dose: 120 mg Documented by: Lactobacillus Acidoph/Casei/Rhamnos (Advanced Probiotic 1250 Mg Capsule) 1 cap PO TID [facility] Stop: 09/07/21 20:59 Last Admin: 08/14/21 07:53 Dose: 1 cap Documented by: Lisinopril (Lisinopril 10 Mg Tab) 10 mg PO QAM [facility] Stop: 09/12/21 12:44 Last Admin: 08/14/21 07:52 Dose: 10 mg Documented by: Miscellaneous (Carbohydrates For Hypoglycemia ) 15 - 30 gm PO UD PRN PRN Reason: Hypoglycemia Protocol Stop: 09/07/21 20:12 Last Admin: 08/13/21 17:04 Dose: 15 gm Documented by: Nitroglycerin (Nitroglycerin Sl 0.4 Mg/Tab Tab) 0.4 mg SL UD PRN PRN Reason: Chest Pain Stop: 09/07/21 20:12 Nystatin (Nystatin Powder 15gm Btl) 1 appln EXT BID [facility] Stop: 09/07/21 20:59 Last Admin: 08/14/21 07:54 Dose: Not Given Documented by: Pantoprazole Sodium (Pantoprazole 40 Mg Tab) 40 mg PO QAM [facility] Stop: 09/08/21 08:59 Last Admin: 08/14/21 07:53 Dose: 40 mg Documented by: Petrolatum (Butt Paste (Zinc Oxide 16%) 171 Appln/57 Gm Jar) 1 appln EXT PRN PRN PRN Reason: BUTTOCK EXCORIATION Stop: 09/07/21 21:21 Last Admin: 08/09/21 09:45 Dose: 1 appln Documented by: Polyethylene Glycol (Polyethylene (Miralax) 17 Gm Pack) 17 gm PO QAM PRN PRN Reason: Constipation Stop: 09/07/21 20:12 Sertraline HCl (Sertraline Hcl 50 Mg Tablet) 50 mg PO QAM [facility] Stop: 09/08/21 08:59 Last Admin: 08/14/21 07:53 Dose: 50 mg Documented by: Terazosin HCl (Terazosin Hcl 1 Mg Cap) 1 mg PO HS [facility] Stop: 09/07/21 20:59 Last Admin: 08/13/21 21:32 Dose: 1 mg Documented by: Topiramate (Topiramate 25 Mg Tab) 25 mg PO BID [facility] Stop: 09/07/21 20:59 Last Admin: 08/14/21 07:52 Dose: 25 mg Documented by:
[2021-08-14] MEDS: hydrALAZINE TAB 50 MG TAB PO SCH (10:10)
[2021-08-14] MEDS ORDERED: NITROFURANTOIN MONOHYDRATE 100 MG CAP PO ONE (12:30)
--- NOTE | 2021-08-14 13:17 | Discharge Summary ---
Date of Service August 14, 2021 Admission HPI Per Admitting Provider Patient is 76 y/o F with PMH morbid obesity, DM II, diabetic polyneuropathy, nephropathy, CKD IV, CAD, chronic diastolic HF, HTN, HLD, secondary hyperparathyroidism, bilateral lymphedema, mood disorder presented to ER for AMS. History obtained from ER staff. Attempted calling sisters phone but goes straight to voicemail. Unknown if pt took medicines today or if she is taking medications appropriately. It is reported patient was brought from home today for reported altered mental status. ER reports that EMS had stated patient was found to be covered in stool and urine. Patient reports that she lives with her sisters. Outpatient notes reviewed and report patient is very sedentary at baseline. She is following with wound clinic for wound to left lower leg that has been healing. She initially was on doxycycline however that has been switched to Keflex. It is unclear patient has been taking this. Unable to obtain any further history from patient as she is confused In ER patient afebrile, vitals stable. no leukocytosis, negative UA, negative lactate and procalcitonin. CT head and C-spine no acute findings. CXR without acute findings Admission Exam Per Admitting Provider General: no distress, obese Head: normocephalic, atraumatic Eyes: PERRL, EOM's appear intact, conjunctiva non-injected, anicteric ENT: normal inspection external ears, nose, mucous membranes moist Neck: supple, trachea midline Lungs: no respiratory distress, diminished CV: RRR, distant heart sounds, 1+ pretibial edema Abd: +obese, normal BS, soft, non-tender Ext: no cyanosis, no calf tenderness, left lower leg with wound without surrounding erythema, no discharge Neuro: Awake. Knows name, does not know her age or birthday. Knows in hospital but unsure which one. States lives with her sisters who's names are "81" Reports year is 1880. Keeps repeating "81" and answers questions inappropriately, no focal deficits noted Skin: warm, dry, +erythema skin folds Principal Diagnosis Altered mental status Acute on Chronic Kidney Disease - resolved UTI - enterococcus - discharged on antibiotic L left wound - continue with home health Discharge Exam Gen: WD/WN, Obese, F, NAD, A&O x3 HEENT: Normocephalic, atraumatic, conjunctivae moist, sclerae anicteric, mucous membranes moist. Lung: Clear to Auscultation bilaterally, no wheezes/rales/rhonchi Heart: Regular rate, regular rhythm,2/6 RAMAN, no rubs, or gallops Abdomen: Soft, NT, ND +BS x 4 Extremities: No edema, L leg wound medial tibial area, no surrounding erythema, picture in chart Skin: Warm, no rash, negative turgor. Discharge Data Allergies Allergy/AdvReac Type Severity Reaction Status Date / Time loratadine Allergy Intermediate MOUTH Verified 08/08/21 15:20 SWELLING diphenhydramine AdvReac Intermediate GMG-SHAKING Verified 08/08/21 15:20 [From Benadryl] & SWEATING metformin AdvReac Intermediate causes Verified 08/08/21 15:20 kidney problems Sulfa (Sulfonamide AdvReac Intermediate Unknown Verified 08/08/21 15:20 Antibiotics) sulfamethoxazole AdvReac Intermediate GMG-RENAL Verified 08/08/21 15:20 COMPLICATIONS trimethoprim AdvReac Intermediate GMG-RENAL Verified 08/08/21 15:20 COMPLICATIONS Blbqlsw-EDZ-DeH Reductase AdvReac Mild Gastrointestinal Verified 08/08/21 15:20 Inhibitor Upset [Ddpdjcu-Rrx-Qmx Reductase Inhibitor] Consultations 08/08/21 17:27 ED Decision to Admit Stat Ordered Studies Cervical Spine CT 08/08/21 14:43 CT cervical spine wo con CLINICAL HISTORY: 76 years-old Female with AMS. Acute neck injury COMPARISON: Head CT of same day, CT cervical spine 04/19/2019 TECHNIQUE: Multiple axial CT images of the cervical spine were obtained without contrast. A dose lowering technique was utilized adhering to the principles of ALARA. FINDINGS: Demineralized appearance of the bones. Moderate to severe multilevel intervertebral disc space narrowing has progressed from comparison. Healed chronic fracture deformity involves the left lateral mass of C1. The atlantoaxial interval is normal at 2 mm, previously 4 mm. Moderate to severe multilevel facet arthrosis. Posterior disc osteophyte complex formations are noted at several levels, largest at C6-C7. No acute fracture or subluxation is identified. The mastoid air cells and middle ear cavities appear clear. Multilevel neural foraminal narrowing.Severe degeneration with chronic remodeling of the left temporomandibular joint. Severe osteoarthritis of the right glenohumeral joint. The lung apices appear clear. Multinodular thyroid with numerous parenchymal calcifications. No prevertebral edema. Calcified plaque of the carotid bulbs. IMPRESSION: 1. No acute fracture or subluxation. 2. Healed chronic fracture deformity of the left lateral mass of C1. ACT 112: Negative or not required by law. The above report was generated using voice recognition software. It may contain grammatical, syntax or spelling errors. Electronically signed by: Dawson Gorman M.D. 08/08/2021 5:08 PM Chest X-Ray 08/08/21 14:43 XR chest 1V portable HISTORY: 76 years-old Female SEPSIS acute sepsis COMPARISON: Chest radiograph 02/21/2021 TECHNIQUE: Semierect portable AP view of the chest FINDINGS: The cardiomediastinal and hilar silhouettes are within normal limits. Calcifications of the mitral annulus. Calcified plaque of the thoracic aorta. No pneumothorax, pleural effusion, airspace consolidation or overt pulmonary edema. Mild nonspecific interstitial coarsening. Degenerative changes of the shoulders and spine. Chronic calcifications adjacent to the left humeral head. Surgical clips of the abdominal right upper quadrant. IMPRESSION: Cardiomegaly with chronic coarsening of the interstitium. ACT 112: Negative or not required by law. The above report was generated using voice recognition software. It may contain grammatical, syntax or spelling errors. Electronically signed by: Dawson Gorman M.D. 08/08/2021 4:[address] 08/08/21 14:43 CT head/brain wo con CLINICAL HISTORY: 76 years-old Female with AMS. Acutely altered mental status TECHNIQUE: Multiple axial CT images of the head were obtained without contrast. A dose lowering technique was utilized adhering to the principles of ALARA. CT DOSE: 1381.27 mGy.cm COMPARISON: CT cervical spine of same day, head CT 02/13/2021 FINDINGS: No acute intracranial hemorrhage, midline shift, intracranial mass, hydrocephalus, territorial ischemia or abnormal extra-axial collection. Mild age-related involutional changes. Study is motion degraded. Senescent calcifications of the basal ganglia. Mild white matter hypodensities suggest chronic microvascular ischemic disease. The calvarium is intact. Prior bilateral lens repair. The paranasal sinuses, mastoid air cells, and middle ear cavities are clear. IMPRESSION: No acute intracranial abnormality. ACT 112: Negative or not required by law. The above report was generated using voice recognition software. It may contain grammatical, syntax or spelling errors. Electronically signed by: Dawson Gorman M.D. 08/08/2021 4:55 PM Diabetes Follow up A1C 6.5 Hospital Course (1) Acute alteration in mental status: (2) Acute on chronic kidney failure: 76 y/o F w/ morbid obesity, DM II, diabetic polyneuropathy, nephropathy, CKD IV, CAD, chronic diastolic HF, HTN, HLD, secondary hyperparathyroidism, bilateral lymphedema, mood disorder presents to ED with AMS. She was reported found to be sitting in urine and feces and confused. She was found by home health nurses as other family members were sleeping and EMS was called. There was some concern regarding medication use/misuse. Her initial head CT was negative for acute intracranial findings. Her clonazepam and oxycodone were discontinued. Her initial urine culture grew diphtheroids and likely contaminant. She was found to have acute on chronic CKD on admission with creatinine of 2.23. She received gentle IV fluid and her Lasix and lisinopril were held. She was also found to have a left leg wound on admission and it was reported she was taking Keflex and doxycycline due to concern for infection. Her left leg wound appears to be healing well without surrounding erythema or active infection. She did receive wound treatment with [place] and Optifoam QOD. During hospitalization she did receive IV fluid and her creatinine down trended. On day of discharge her creatinine was 1.6. Her lisinopril was resumed and her Lasix was decreased from 40 mg to 20 mg. On day of discharge she was euvolemic. She did undergo repeat urinalysis during hospitalization which grew Enterococcus. It was resistant to penicillin and IV Rocephin was discontinued. She was discharged on oral Macrobid with her first dose given in hospital. She does have underlying history of diabetes and was treated with Lantus/NovoLog protocol while hospitalized. Her A1c was 6.5. She is very well controlled and given age was educated on signs of hypoglycemia. Recommend patient discuss insulin regimen with PCP. On day of discharge patient was mentating normally, alert and oriented x3 and ready to return home. Her vital signs were stable, hemoglobin 8.7 and creatinine 1.6. She received first dose of oral Macrobid prior to leaving the hospital. She was also ambulating at baseline, tolerating regular diet and moving bowels. It is recommended she stop clonazepam and oxycodone given age as is can result in increased confusion. Total Time Total Time Spent Total Time Spent (In Minutes): 60 minutes Total Time Includes: Examination of the Patient, Discharge Planning, Medication Reconciliation, Communication With Other Providers and Other Discharge Plan Discharge Items Patient Disposition: Home - Home Health Services Reason For Visit: AMS Discharge Diagnosis: Altered mental status Acute on Chronic Kidney Disease - resolved UTI - enterococcus - discharged on antibiotic L left wound - continue with home health Activity: Resume your previous activity Driving/Machine Use: Wait until after follow up with PCP Weightbearing: Full weightbearing Non-emergency contact: Primary Care Provider Call non-emergency contact if: you have any medication questions, your symptoms worsen, your pain is not controlled and your temperature is above 101 Follow-up/Referrals: Eric Bullock DO [Primary Care Provider] - (Date & Time 08/20/2021 2:20 PM Provider Eric Bullock DO Department [facility] ) Diet: Carb Consistent or DM2 and Heart Healthy Diet Texture: Easy to Chew Addtl Attending Provider Instructions: MEDICATION CHANGES: Lasix was reduced to 20 mg daily Please stop taking clonazepam and oxycodone as it is felt this contributed to your confusion. New medications: Macrobid 100 mg x 3 days, next dose evening of 08/14/2021 SUMMARY OF TEST RESULTS: You were hospitalized due to acute confusion and acute worsening of your chronic kidney disease. There was initial concern you had a UTI. Initial urine culture was negative. During hospital stay additional urine culture was obtained which revealed you indeed have a urinary tract infection. You were prescribed appropriate antibiotics to complete after discharge. Your kidney function also returned back to baseline. You lasix was reduced from 40mg to 20mg. Please continue taking all of your home medications. PENDING TEST RESULTS: Vitamin B1 level RECOMMENDATIONS FOR FOLLOW-UP: Please complete antibiotic in its entirety. Recommend taking probiotic while on antibiotic for GI health. Please continue all home medications. You will need a follow-up BMP to evaluate your kidney function at your hospital follow-up with PCP. Avoid anti-inflammatory medications including ibuprofen, Motrin, Aleve, naproxen, Naprosyn, Advil as this can worsen your kidney function. During hospital stay your blood pressure was noted to be elevated. Please continue home blood pressure medication and keep a daily log of blood pressure. Take this along with you to your next PCP follow-up. Your current A1c is 6.5 and your diabetes is under good control. Please monitor closely for signs of hypoglycemia. Please monitor your weight daily and at the same time every day. If you notice any weight gain of greater than 2 pounds in 1 day or greater than 5 pounds in 1 week please contact your PCP. Your Lasix was reduced from 40 mg daily to 20 mg daily. Left Leg wound instructions: Apply [place], cover with OPTi foam and change every other day and as needed. Follow-up with wound clinic as scheduled. Home health to assist with dressing changes. You need outpatient follow up with your test administrator. You were suppose to have iron infusions in April. Recommend following up with PCP to discuss this. You are over due for your colonoscopy, last was 2017 and recommended a 3 year follow. Please discuss with PCP. OTHER INSTRUCTIONS: Seek medical attention if you have: * temperature above 101 * chest pain or trouble breathing * abdominal pain, nausea, vomiting * diarrhea, dark stools or bloody stools * any unanswered questions or concerns Call 911 if symptoms are severe. Please take good care of yourself. It has been a pleasure taking care of you. Please take care of yourself. If you have any questions regarding your recent hospitalization please contact [facility] and request Lana Goodmanist @ [phone]. Linnea Peterson PA-C Pending Studies at Discharge: Yes Studies:: B1 level Stand-Alone Forms: My [facility], Smoking Cessation Medications and DC Order Prescriptions: New furosemide 20 mg Tablet 20 mg PO QAM Qty: 30 RF: 0 nitrofurantoin monohyd/m-cryst [Macrobid] 100 mg capsule 100 mg PO BID 3 Days Qty: 5 RF: 0 Continued isosorbide mononitrate 120 mg tablet extended release 24 hr 120 mg PO QAM RF: 0 polyethylene glycol 3350 [Miralax] 17 gram/dose Powder 17 g PO QAM RF: 0 topiramate 25 mg tablet 25 mg PO BID RF: 0 terazosin 1 mg capsule 1 mg PO HS RF: 0 pantoprazole 40 mg tablet,delayed release (DR/EC) 40 mg PO QAM RF: 0 gabapentin 300 mg capsule 300 mg PO TID RF: 0 sertraline 50 mg tablet 50 mg PO QAM RF: 0 Lantus Solostar U-100 Insulin 100 unit/mL (3 mL) insulin pen 20 unit subcut BID RF: 0 baclofen 10 mg tablet 5 mg PO BID PRN (Reason: Pain) RF: 0 diclofenac sodium 1 % gel 1 ea TOPICAL BID PRN (Reason: Pain) RF: 0 nystatin 100,000 unit/gram Powder 1 applic TOPICAL TID PRN (Reason: Skin Irritation) RF: 0 potassium chloride [Klor-Con M10] 10 mEq tablet,ER particles/crystals 10 meq PO DAILY RF: 0 lisinopril 10 mg Tablet 10 mg PO QAM Qty: 30 RF: 0 zinc oxide 40 % Ointment 1 applic TOPICAL DIRECTED PRN (Reason: BUTTOCK EXCORIATION) RF: 0 aspirin 81 mg Tablet,Delayed Release (Dr/Ec) 81 mg PO DAILY RF: 0 carvedilol 6.25 mg Tablet 6.25 mg PO AMHS Qty: 60 RF: 0 ondansetron HCl 4 mg tablet 4 mg PO Q6 PRN (Reason: Nausea) RF: 0 hydralazine 50 mg tablet 50 mg PO TID RF: 0 famotidine 20 mg tablet 20 mg PO DAILY RF: 0 amlodipine 10 mg tablet 10 mg PO QAM RF: 0 fluticasone propionate 50 mcg/actuation spray,suspension 2 spray INTRANASAL DAILY RF: 0 Lactinex 1 million cell Tablet,Chewable 1 tab PO TID RF: 0 insulin lispro [Humalog KwikPen Insulin] 100 unit/mL insulin pen 10 unit SUBCUT TIDM RF: 0 cholecalciferol (vitamin D3) 25 mcg (1,000 unit) Tablet 25 mcg PO DAILY RF: 0 nitroglycerin [Nitrostat] 0.4 mg Tablet, Sublingual 0.4 mg sublingual UD PRN (Reason: Chest Pain) RF: 0 Discontinued clonazepam 1 mg tablet 1 mg PO HS RF: 0 oxycodone-acetaminophen [Percocet] 5-325 mg tablet 1 tab PO TID PRN (Reason: Pain) RF: 0 furosemide 40 mg tablet 40 mg PO QAM RF: 0 cephalexin 500 mg capsule 500 mg PO QID RF: 0 furosemide 40 mg tablet 40 mg PO UD RF: 0 Discharge Orders: Discharge Order (Routine); Ordered 08/14/21 Ordered By: Linnea Sarabia/Other Patient Handouts: High Blood Sugar (Hyperglycemia), Hypoglycemia (Low Blood Sugar), Managing Type 2 Diabetes Admission Data Admit Date/Time: 08/08/21 17:41 Attending Provider: Brian Desai Admit Provider: José Luis Baez Primary Care Provider: Eric Bullock Other Providers: José Luis Baez ; [facility] ; Linnea Peterson Other Interventions: Discharge Summary Assessment (RN) Last Done: 08/14/21 13:24 Supervising Physician Co-Signing Physician Notes Patient is seen and examined at bedside on day of discharge. States having minimal flank/back pain. On exam patient is obese, no apparent distress, normocephalic atraumatic, lungs are clear to auscultation, normal breath sounds, S1-S2,+ murmur, trace pedal edema, abdomen soft, nontender, normal bowel sounds, alert, awake, oriented, grossly no focal deficits, left lower extremity wound in dressing. Enterococcus UTI: Abx changed to Macrobid. Lasix dose decreased to 20mg daily. Patient refuses rehab placement. I personally reviewed the record. Patient is interviewed and examined at bedside. Patient's care is coordinated with Linnea Peterson PA-C. Please refer to the documentation above for details of patient's presentation and for discussion of other issues.
[2021-08-14] MEDS ORDERED: INSULIN GLARGINE SOLOSTAR 100 UNITS/ML 3 ML PEN SC SCH (21:00)
== END 2021-08-14 14:45 | disposition home health service (06) | DRG 682 ==
LOC: ED 14:41 → SUATTDRO 17:41 → EDINP 17:41 → 3E 08-12 20:17
DX: E78.5 Hyperlipidemia, unspecified; Z88.8 Allergy status to other drugs, medicaments and biological substances; D64.9 Anemia, unspecified; N18.4 Chronic kidney disease, stage 4 (severe); E66.01 Morbid (severe) obesity due to excess calories; I13.0 Hypertensive heart and chronic kidney disease with heart failure and stage 1 through stage 4 chronic kidney disease, or unspecified chronic kidney disease; X58.XXXA Exposure to other specified factors, initial encounter; E11.42 Type 2 diabetes mellitus with diabetic polyneuropathy; N39.0 Urinary tract infection, site not specified; G92.8 Other toxic encephalopathy; B95.2 Enterococcus as the cause of diseases classified elsewhere; E11.22 Type 2 diabetes mellitus with diabetic chronic kidney disease; I25.10 Atherosclerotic heart disease of native coronary artery without angina pectoris; F39 Unspecified mood [affective] disorder; Y92.009 Unspecified place in unspecified non-institutional (private) residence as the place of occurrence of the external cause; Z68.42 Body mass index [BMI] 45.0-49.9, adult; G93.41 Metabolic encephalopathy; R26.2 Difficulty in walking, not elsewhere classified; Z88.2 Allergy status to sulfonamides; Z79.4 Long term (current) use of insulin; N17.9 Acute kidney failure, unspecified; Z83.3 Family history of diabetes mellitus; I50.32 Chronic diastolic (congestive) heart failure; S81.802A Unspecified open wound, left lower leg, initial encounter

== ENCOUNTER 2022-01-14 10:07 | Inpatient (IN) ==
[2022-01-14] MEDS ORDERED: ACETAMINOPHEN 1000 MG/100 ML IV IV STA (11:02)
[2022-01-14] MEDS ORDERED: CEFEPIME 2,000 MG/20 ML VIAL IV STA (11:02)
[2022-01-14] MEDS ORDERED: SODIUM CHLORIDE 0.9% 1000ML 1,000 ML IV SCH (11:15)
--- NOTE | 2022-01-14 11:26 | Emergency Department Note ---
Impression & Plan Weakness, Acute confusion, Mastoiditis, Leukocytosis, Elevated troponin ED Provider Note NAME: DONNA CERNA AGE: 76 SEX: F : 1945 ARRIVES VIA: Ambulance INFORMANT: [Patient][nursing, ems] ED PROVIDER(S): [Scott Oconnell MD] CHIEF COMPLAINT: Confusion HISTORY OF PRESENT ILLNESS: The patient is a 76-year-old female who was brought to the ED for confusion. T he length of time that she has been confused is unclear. There is no one at the bedside. EMS did do a BSG and the value was 200. As per EMS, the patient's house is a mess. Things are quite dirty in the home. As per EMS, the patient was too weak to get out of her chair on her own, they had to lift her out of the chair. Given the mental state, no further history obtainable. REVIEW OF SYSTEMS: Unobtainable given her mental state/confusion. PMHx/PSHx: See Below SOCIAL HISTORY: See Below. PHYSICAL EXAM: GENERAL: Patient is in no acute distress. Generalized shaking/rigors noted. HEENT: No acute trauma, normocephalic atraumatic, mucous membranes moist, no nasal congestion, no scleral icterus. NECK: No stridor, no adenopathy, no meningismus, trachea is midline. LUNGS: Clear to auscultation bilaterally, no wheeze, no rhonchi, breath sounds equal. HEART: Without murmurs gallops or rubs, regular rate and rhythm. ABDOMEN: Soft, nontender, bowel sounds positive, no hernias, no peritonitis. Obese. EXTREMITIES: No cyanosis or edema, full range of motion of all the joints w ithout pain or difficulty, no signs for acute trauma. NEUROLOGIC: Confused. Awake. No focal motor deficits. No speech slur. SKIN: No rash, no jaundice, no diaphoresis. DIFFERENTIAL DIAGNOSIS: Sepsis, COVID-19, influenza, UTI, pneumonia, metabolic abnormality, electrolyte abnormalities, cardiac sources, cellulitis, bacteremia, intracerebral event, toxicologic etiology, neurologic event, as well as other pathologies. EMERGENCY DEPARTMENT COURSE/PROCEDURES: ECG: Indication was potential sepsis/weakness. ECG shows a normal sinus rhyt hm with a rate of 83. There is significant baseline artifact. There is no obvious ST elevation, no PVCs. The QTc is 472. Continuous Cardiac Monitoring: An order was placed for continuous cardiac monitoring. The monitor shows a rate of 81 with normal sinus rhythm. Critical Care Note: I have personally spent 51 minutes of critical care time in the direct management of this patient. This includes bedside care, interpretation of diagnostic studies, and testing, discussion with consultants, patient, and family members, and other required patient management activities. This 51 minutes is in excess of all separately billable procedures. MEDICAL DECISION MAKING: There is a mild leukocytosis which could be consistent with infection. The patient is anemic with a hemoglobin of 10. The patient has a history of anemia. There is a normal platelet count. No coagulopathy. Renal panel testing suggests some dehydration with a higher sodium and BUN. CO2 was a bit low suggesting a mild acidosis. Lactic acid level was not elevated making severe sepsis less likely. No concerning liver enzyme elevation. ECG shows a normal sinus rhythm, no obvious acute ischemia. Cardiac enzyme testing x1 did show an elevation at 600. Further cardiac testing will be necessary. Of note, no complaints of chest pain. Urinalysis did not show evidence for infection. Influenza, COVID and RSV test were negative. Chest x-ray did not show pneumonia or CHF. Brain CT showed a right mastoiditis and right otitis media. There was no intracranial bleeding or findings of mass-effect. On exam, there was no speech slur. The patient was febrile. No focal motor deficits. No meningismus. Patient received IV cefepime as antibiotic coverage. She was given IV saline, IV Tylenol. The patient is in need of a hospital stay. I do think she appears improved since treatment in the ED. She no longer has rigors and seems much more comfortable. I did speak with the patient, I talked to case management. The on-call hospital ist was consulted. Past Med/Surg History Medical History Acute UTI Adjustment disorder CAD (coronary artery disease) CHF (congestive heart failure) CKD (chronic kidney disease) CKD (chronic kidney disease), stage III Encephalopathy acute GERD (gastroesophageal reflux disease) HLD (hyperlipidemia) Hypertension Hyponatremia IBS (irritable bowel syndrome) Insulin dependent diabetes mellitus Mood disorder Morbid obesity Paroxysmal A-fib Pressure ulcer Surgical History H/O hernia repair H/O: H/O: hysterectomy S/P cholecystectomy Family History Brother Prostate cancer Father Diabetes Social History Smoking Status: Unknown if ever smoked Second Hand Exposure: No; Hx Alcohol Use: No Hx Substance Use: No Preferred Language: Icelandic Communication Ability: Impaired Visual Impairment: No Limitations Addiction Specialist Required: No Beliefs That Will Affect Care: None marital status: / Current Living Situation: Family Current Living Situation Comment: Patient reports she lives with her sisters and neice. Feels Safe at Home: Yes Assistive Devices: Walker Allergies Allergies Allergy/AdvReac Type Severity Reaction Status Date / Time loratadine Allergy Intermediate MOUTH Verified 01/14/22 13:42 SWELLING diphenhydramine AdvReac Intermediate GMG-SHAKING Verified 01/14/22 13:42 [From Benadryl] & SWEATING metformin AdvReac Intermediate causes Verified 01/14/22 13:42 kidney problems Sulfa (Sulfonamide AdvReac Intermediate Unknown Verified 01/14/22 13:42 Antibiotics) sulfamethoxazole AdvReac Intermediate GMG-RENAL Verified 01/14/22 13:42 COMPLICATIONS trimethoprim AdvReac Intermediate GMG-RENAL Verified 01/14/22 13:42 COMPLICATIONS Dwaafcb-PKG-CkT Reductase AdvReac Mild Gastrointestinal Verified 01/14/22 13:42 Inhibitor Upset [Epldslu-Mmx-Cbz Reductase Inhibitor] Home Meds Home Medications Medication Instructions Recorded Confirmed gabapentin 300 mg capsule 300 mg PO TID 02/14/19 01/14/22 insulin glargine 100 unit/mL (3 20 unit SUBCUT BID 02/14/19 01/14/22 mL) subcutaneous pen (Lantus Solostar U-100 Insulin) pantoprazole 40 mg tablet,delayed 40 mg PO QAM 02/14/19 01/14/22 release sertraline 50 mg tablet 50 mg PO QAM 02/14/19 01/14/22 terazosin 1 mg capsule 1 mg PO HS 02/14/19 01/14/22 topiramate 25 mg tablet 25 mg PO AMPM 02/14/19 01/14/22 isosorbide mononitrate 120 mg 120 mg PO QAM 04/23/19 01/14/22 tablet,extended release 24 hr polyethylene glycol 3350 17 17 g PO QAM PRN 04/23/19 01/14/22 gram/dose oral powder (Miralax) baclofen 10 mg tablet 5 mg PO BID PRN 08/16/20 01/14/22 diclofenac sodium 1 % topical gel 1 ea TOPICAL BID PRN 08/16/20 01/14/22 nystatin 100,000 unit/gram topical 1 applic TOPICAL TID PRN 10/27/20 01/14/22 powder aspirin 81 mg tablet,delayed 81 mg PO QAM 02/13/21 01/14/22 release amlodipine 10 mg tablet 10 mg PO QAM 05/02/21 01/14/22 famotidine 20 mg tablet 20 mg PO QAM 05/02/21 01/14/22 fluticasone propionate 50 2 spray INTRANASAL QAM 05/02/21 01/14/22 mcg/actuation nasal spray,suspension hydralazine 50 mg tablet 50 mg PO TID 05/02/21 01/14/22 insulin lispro 100 unit/mL 10 unit SUBCUT TIDM 05/02/21 01/14/22 subcutaneous pen (Humalog KwikPen (U-100) Insulin) nitroglycerin 0.4 mg sublingual 0.4 mg SUBLINGUAL UD PRN 05/02/21 01/14/22 tablet (Nitrostat) furosemide 40 mg tablet 40 mg PO DIRECTED 11/14/21 01/14/22 oxycodone-acetaminophen 5 mg-325 1 tab PO Q8H PRN 11/14/21 01/14/22 mg tablet menthol 0.44 %-zinc oxide 20.6 % 1 applic TOPICAL DIRECTED 01/14/22 01/14/22 topical ointment (Calmoseptine) ondansetron HCl 4 mg tablet 4 mg PO Q6 PRN 01/14/22 01/14/22 Previous Rx's Medication Instructions Recorded lisinopril 10 mg tablet 10 mg PO QAM #30 tab 12/08/20 carvedilol 6.25 mg tablet 6.25 mg PO AMHS #60 tab 02/16/21 Results & Data (ED) Vital Signs Vital Signs - 24 hr 01/14/22 10:17 01/14/22 10:24 01/14/22 10:37 Temperature 37.8 C H Temperature Source Oral Pulse Rate 86 81 83 Pulse Rate [Right Finger] Pulse Rate from SpO2 Sensor 85 Pulse Rhythm Regular Pulse Rhythm [Right Finger] Pulse Strength [Right Finger] Respiratory Rate 14 21 25 H Respiratory Effort / Characteristics Non-Labored Spontaneous Respiratory Depth Normal Respiratory Pattern Regular Blood Pressure 200/119 H Blood Pressure [Right Arm] Blood Pressure Mean 146 Blood Pressure Mean [Right Arm] Blood Pressure Position Lying Pulse Oximetry 98 97 Oxygen Delivery Method Room Air Sepsis Recent Fever Within 48 Hours Yes Sepsis New/Unexplained Change in Mental Status Yes Sepsis Action Taken by Nursing No Action Required 01/14/22 10:45 01/14/22 11:00 01/14/22 11:15 Temperature Temperature Source Pulse Rate 87 73 81 Pulse Rate [Right Finger] Pulse Rate from SpO2 Sensor 74 80 Pulse Rhythm Pulse Rhythm [Right Finger] Pulse Strength [Right Finger] Respiratory Rate 33 H 27 H 20 Respiratory Effort / Characteristics Respiratory Depth Respiratory Pattern Blood Pressure Blood Pressure [Right Arm] Blood Pressure Mean Blood Pressure Mean [Right Arm] Blood Pressure Position Pulse Oximetry 96 99 Oxygen Delivery Method Sepsis Recent Fever Within 48 Hours Sepsis New/Unexplained Change in Mental Status Sepsis Action Taken by Nursing 01/14/22 11:30 01/14/22 11:32 01/14/22 11:45 Temperature Temperature Source Pulse Rate 82 83 Pulse Rate [Right Finger] 83 Pulse Rate from SpO2 Sensor 83 75 Pulse Rhythm Pulse Rhythm [Right Finger] Regular Pulse Strength [Right Finger] Normal Respiratory Rate 21 24 17 Respiratory Effort / Characteristics Non-Labored Respiratory Depth Normal Respiratory Pattern Regular Blood Pressure Blood Pressure [Right Arm] 156/61 H Blood Pressure Mean Blood Pressure Mean [Right Arm] 92 Blood Pressure Position Pulse Oximetry 99 100 100 Oxygen Delivery Method Room Air Sepsis Recent Fever Within 48 Hours Sepsis New/Unexplained Change in Mental Status Sepsis Action Taken by Nursing 01/14/22 12:00 01/14/22 12:01 01/14/22 12:02 Temperature Temperature Source Pulse Rate 146 H 106 H Pulse Rate [Right Finger] Pulse Rate from SpO2 Sensor 90 90 Pulse Rhythm Pulse Rhythm [Right Finger] Pulse Strength [Right Finger] Respiratory Rate 22 24 Respiratory Effort / Characteristics Non-Labored Spontaneous Respiratory Depth Respiratory Pattern Blood Pressure 156/61 H Blood Pressure [Right Arm] Blood Pressure Mean 92 Blood Pressure Mean [Right Arm] Blood Pressure Position Pulse Oximetry 99 95 100 Oxygen Delivery Method Room Air Sepsis Recent Fever Within 48 Hours Sepsis New/Unexplained Change in Mental Status Sepsis Action Taken by Nursing 01/14/22 12:03 01/14/22 12:15 01/14/22 12:30 Temperature Temperature Source Pulse Rate 102 H 84 80 Pulse Rate [Right Finger] Pulse Rate from SpO2 Sensor 84 84 82 Pulse Rhythm Pulse Rhythm [Right Finger] Pulse Strength [Right Finger] Respiratory Rate 27 H 38 H 21 Respiratory Effort / Characteristics Respiratory Depth Respiratory Pattern Blood Pressure 196/77 H Blood Pressure [Right Arm] Blood Pressure Mean 116 Blood Pressure Mean [Right Arm] Blood Pressure Position Pulse Oximetry 100 100 99 Oxygen Delivery Method Sepsis Recent Fever Within 48 Hours Sepsis New/Unexplained Change in Mental Status Sepsis Action Taken by Residential Medications Current Medication List: was personally reviewed by me Laboratory Data Attestation: I reviewed the patient's lab results. Result diagrams: 01/14/22 12:56 01/14/22 12:56 Lab Results 01/14/22 01/14/22 01/14/22 Range/Units 11:35 12:20 12:56 WBC 11.57 H (4.8-10.8) K/uL RBC 3.51 L (4.2-5.4) M/uL Hgb 10.0 L (12.0-16.0) g/dL Hct 31.2 L (37-47) % MCV 88.9 (80-100) fL MCH 28.5 (25-34) pg MCHC 32.1 (32-36) g/dL RDW Std Deviation 45.1 (36.4-46.3) fL RDW Coeff of Isabel 13.9 (11.5-14.5) % Plt Count 205 (130-400) K/uL MPV 9.8 (7.4-10.4) fL Immature Gran % (Auto) 0.4 % Neut % (Auto) 80.1 % Lymph % (Auto) 15.0 % [place] % (Auto) 4.2 % Eos % (Auto) 0.1 % Baso % (Auto) 0.2 % Neut # (Auto) 9.26 H (1.4-6.5) K/uL Lymph # (Auto) 1.74 (1.2-3.4) K/uL [place] # (Auto) 0.49 (0.11-0.59) K/uL Eos # (Auto) 0.01 (0-0.5) K/uL Baso # (Auto) 0.02 (0-0.2) K/uL Immature Gran # (Auto) 0.05 H (0.00-0.02) K/uL PT (9.0-12.0) Seconds INR (0.9-1.1) APTT (21.0-31.0) Seconds PTT Ratio Sodium (136-145) mmol/L Potassium (3.5-5.1) mmol/L Chloride (98-107) mmol/L Carbon Dioxide (21-32) mmol/L Anion Gap (3-11) BUN (6-23) mg/dl Creatinine (0.6-1.2) mg/dl Est Cr Clr Drug Dosing ml/min Est GFR ( Amer) ml/min Est GFR (Non-Af Amer) ml/min BUN/Creatinine Ratio (10-20) Glucose (70-99(Fasting)) mg/dl Lactate (0.4-2.0) mmol/L Calcium (8.5-10.1) mg/dl Magnesium (1.7-2.4) mg/dl Total Bilirubin (0.2-1.0) mg/dl AST (13-39) U/L ALT (7-52) U/L Alkaline Phosphatase (34-104) U/L Troponin I High Sens (0-14) pg/ml Total Protein (6.0-8.3) gm/dl Albumin (3.4-5.0) gm/dl Globulin (2.5-4.0) gm/dl Albumin/Globulin Ratio (0.9-2) Procalcitonin (0-0.5) ng/ml Urine Color Yellow Urine Appearance Clear (Clear) Urine pH >= 9.0 H (4.5-7.5) Ur Specific Jackson 1.013 (1.000-1.030) Urine Protein 2+ H (Negative) Urine Glucose (UA) Negative (Negative) Urine Ketones Negative (Negative) Urine Blood 2+ H (Negative) Urine Nitrite Negative (Negative) Urine Bilirubin Negative (Negative) Urine Urobilinogen Negative (Negative) Ur Leukocyte Esterase Negative (Negative) Urine WBC (Auto) 1-5 (0-5) /hpf Urine RBC (Auto) 10-30 H (0-4) /hpf U Hyaline Cast (Auto) 1-5 (0-5) /lpf U Epithel Cells (Auto) 20-30 H (0-5) /lpf Urine Bacteria (Auto) Negative (Negative) SARS-CoV-2 (PCR) NEGATIVE (Negative) Influenza Type A (PCR) Negative (Neg) Influenza Type B (PCR) Negative (Neg) RSV (RT-PCR) Negative (Neg) 01/14/22 01/14/22 01/14/22 Range/Units 12:56 12:56 12:56 WBC (4.8-10.8) K/uL RBC (4.2-5.4) M/uL Hgb (12.0-16.0) g/dL Hct (37-47) % MCV (80-100) fL MCH (25-34) pg MCHC (32-36) g/dL RDW Std Deviation (36.4-46.3) fL RDW Coeff of Isabel (11.5-14.5) % Plt Count (130-400) K/uL MPV (7.4-10.4) fL Immature Gran % (Auto) % Neut % (Auto) % Lymph % (Auto) % [place] % (Auto) % Eos % (Auto) % Baso % (Auto) % Neut # (Auto) (1.4-6.5) K/uL Lymph # (Auto) (1.2-3.4) K/uL [place] # (Auto) (0.11-0.59) K/uL Eos # (Auto) (0-0.5) K/uL Baso # (Auto) (0-0.2) K/uL Immature Gran # (Auto) (0.00-0.02) K/uL PT 11.3 (9.0-12.0) Seconds INR 1.1 (0.9-1.1) APTT 23.9 (21.0-31.0) Seconds PTT Ratio 0.9 Sodium 146 H (136-145) mmol/L Potassium 3.7 (3.5-5.1) mmol/L Chloride 115 H (98-107) mmol/L Carbon Dioxide 19 L (21-32) mmol/L Anion Gap 12 H (3-11) BUN 60 H (6-23) mg/dl Creatinine 1.65 H (0.6-1.2) mg/dl Est Cr Clr Drug Dosing 33.5 ml/min Est GFR ( Amer) 34.6 ml/min Est GFR (Non-Af Amer) 29.8 ml/min BUN/Creatinine Ratio 36.4 H (10-20) Glucose 214 H (70-99(Fasting)) mg/dl Lactate 1.3 (0.4-2.0) mmol/L Calcium 9.0 (8.5-10.1) mg/dl Magnesium 2.1 (1.7-2.4) mg/dl Total Bilirubin 0.8 (0.2-1.0) mg/dl AST 24 (13-39) U/L ALT 14 (7-52) U/L Alkaline Phosphatase 69 (34-104) U/L Troponin I High Sens 609.7 H* (0-14) pg/ml Total Protein 7.7 (6.0-8.3) gm/dl Albumin 3.5 (3.4-5.0) gm/dl Globulin 4.2 H (2.5-4.0) gm/dl Albumin/Globulin Ratio 0.8 L (0.9-2) Procalcitonin (0-0.5) ng/ml Urine Color Urine Appearance (Clear) Urine pH (4.5-7.5) Ur Specific Jackson (1.000-1.030) Urine Protein (Negative) Urine Glucose (UA) (Negative) Urine Ketones (Negative) Urine Blood (Negative) Urine Nitrite (Negative) Urine Bilirubin (Negative) Urine Urobilinogen (Negative) Ur Leukocyte Esterase (Negative) Urine WBC (Auto) (0-5) /hpf Urine RBC (Auto) (0-4) /hpf U Hyaline Cast (Auto) (0-5) /lpf U Epithel Cells (Auto) (0-5) /lpf Urine Bacteria (Auto) (Negative) SARS-CoV-2 (PCR) (Negative) Influenza Type A (PCR) (Neg) Influenza Type B (PCR) (Neg) RSV (RT-PCR) (Neg) 01/14/22 Range/Units 12:56 WBC (4.8-10.8) K/uL RBC (4.2-5.4) M/uL Hgb (12.0-16.0) g/dL Hct (37-47) % MCV (80-100) fL MCH (25-34) pg MCHC (32-36) g/dL RDW Std Deviation (36.4-46.3) fL RDW Coeff of Isabel (11.5-14.5) % Plt Count (130-400) K/uL MPV (7.4-10.4) fL Immature Gran % (Auto) % Neut % (Auto) % Lymph % (Auto) % [place] % (Auto) % Eos % (Auto) % Baso % (Auto) % Neut # (Auto) (1.4-6.5) K/uL Lymph # (Auto) (1.2-3.4) K/uL [place] # (Auto) (0.11-0.59) K/uL Eos # (Auto) (0-0.5) K/uL Baso # (Auto) (0-0.2) K/uL Immature Gran # (Auto) (0.00-0.02) K/uL PT (9.0-12.0) Seconds INR (0.9-1.1) APTT (21.0-31.0) Seconds PTT Ratio Sodium (136-145) mmol/L Potassium (3.5-5.1) mmol/L Chloride (98-107) mmol/L Carbon Dioxide (21-32) mmol/L Anion Gap (3-11) BUN (6-23) mg/dl Creatinine (0.6-1.2) mg/dl Est Cr Clr Drug Dosing ml/min Est GFR ( Amer) ml/min Est GFR (Non-Af Amer) ml/min BUN/Creatinine Ratio (10-20) Glucose (70-99(Fasting)) mg/dl Lactate (0.4-2.0) mmol/L Calcium (8.5-10.1) mg/dl Magnesium (1.7-2.4) mg/dl Total Bilirubin (0.2-1.0) mg/dl AST (13-39) U/L ALT (7-52) U/L Alkaline Phosphatase (34-104) U/L Troponin I High Sens (0-14) pg/ml Total Protein (6.0-8.3) gm/dl Albumin (3.4-5.0) gm/dl Globulin (2.5-4.0) gm/dl Albumin/Globulin Ratio (0.9-2) Procalcitonin < 0.05 (0-0.5) ng/ml Urine Color Urine Appearance (Clear) Urine pH (4.5-7.5) Ur Specific Jackson (1.000-1.030) Urine Protein (Negative) Urine Glucose (UA) (Negative) Urine Ketones (Negative) Urine Blood (Negative) Urine Nitrite (Negative) Urine Bilirubin (Negative) Urine Urobilinogen (Negative) Ur Leukocyte Esterase (Negative) Urine WBC (Auto) (0-5) /hpf Urine RBC (Auto) (0-4) /hpf U Hyaline Cast (Auto) (0-5) /lpf U Epithel Cells (Auto) (0-5) /lpf Urine Bacteria (Auto) (Negative) SARS-CoV-2 (PCR) (Negative) Influenza Type A (PCR) (Neg) Influenza Type B (PCR) (Neg) RSV (RT-PCR) (Neg) Administered Medications Discontinued Medications Acetaminophen (Acetaminophen 1000 Mg/100 Ml Iv) 1,000 mg IV NOW STA Stop: 01/14/22 11:03 Last Admin: 01/14/22 13:00 Dose: 1,000 mg Documented by: [id number] Cefepime HCl (Cefepime 2,000 Mg/20 Ml Vial) Confirm Administered Dose 2,000 mg .ROUTE .STK-MED ONE Stop: 01/14/22 14:41 Last Admin: 01/14/22 14:45 Dose: Not Given Documented by: [id number] Sodium Chloride (Nss 1000ml) 1,000 mls @ 999 mls/hr IV .Q1H1M CHINEDU Stop: 01/14/22 12:15 Last Infusion: 01/14/22 15:30 Dose: 0 mls/hr Documented by: [id number] Admin: 01/14/22 13:37 Dose: 999 mls/hr Documented by: [id number] Cefepime HCl (Maxipime) 2,000 mg in 20 mls @ 5 mls/min IV NOW STA; Protocol Stop: 01/14/22 11:05 Last Admin: 01/14/22 14:43 Dose: 5 mls/min Documented by: [id number] Imaging Data Radiologist's Impression: Chest X-Ray 01/14/22 11:02 XR chest 1V portable HISTORY: 76 years-old Female SEPSIS acute sepsis COMPARISON: Chest radiograph 11/14/2021 TECHNIQUE: Portable AP view of the chest FINDINGS: Cardiac silhouette is enlarged. Atherosclerosis of the aorta. Dense calcified plaque of the mitral annulus. No pneumothorax or large pleural effusion. Chronic interstitial coarsening. Degenerative changes of the shoulders and spine with chronic left proximal humeral deformity. IMPRESSION: Cardiomegaly with chronic interstitial coarsening. ACT 112: Negative or not required by law. The above report was generated using voice recognition software. It may contain grammatical, syntax or spelling errors. Electronically signed by: Dawson Gorman M.D. 01/14/2022 11:[address] 01/14/22 11:25 CT SCAN OF THE BRAIN WITHOUT IV CONTRAST CLINICAL HISTORY: Change in mental status. COMPARISON STUDY: CT of the brain dated 08/08/2021. TECHNIQUE: Unenhanced axial CT scan of the brain is performed from the vertex to the skull base. A dose lowering technique was utilized adhering to the principles of ALARA. CT DOSE: 679.75 mGycm FINDINGS: Brain parenchyma: There is age-related involutional change noting mild subcortical and periventricular microangiopathic disease. There is no hemorrhage, mass effect, or evidence of acute territorial ischemia by CT criteria. Palomares-white matter differentiation is preserved. No extra-axial fluid collection is seen. Ventricles, sulci, cisterns: Prominent secondary to involutional change. Intracranial vasculature: There is atherosclerotic calcification of the cavernous carotid and vertebral arteries. Calvarium: Unremarkable. Sinuses and mastoids: The visualized paranasal sinuses are clear. There is a large right mastoid effusion, with opacification of the right middle ear and external auditory canal. The left mastoid air cells are well pneumatized. Orbits: The bony orbits are grossly intact. There are bilateral ocular lens imp lants. IMPRESSION: 1 There is no hemorrhage, mass effect, or evidence of acute territorial ischemia by CT criteria. 2. Large right mastoid effusion with opacification of the right middle ear. This represent a change from the 08/08/2021 examination. Correlate clinically for evidence of otomastoiditis. ACT 112: Negative or not required by law. Electronically signed by: Scott Tello M.D. 01/14/2022 2:09 PM Discharge Plan Visit Data Chief Complaint: Confusion Stated Complaint: AMS ED Provider: Scott Oconnell Discharge Problem: Weakness, Acute confusion, Mastoiditis, Leukocytosis, Elevated troponin Patient Disposition: Admitted As Inpatient Condition: Fair Forms Stand Alone Forms: [facility] Prescriptions Prescriptions: No Action isosorbide mononitrate 120 mg tablet extended release 24 hr 120 mg PO QAM RF: 0 polyethylene glycol 3350 [Miralax] 17 gram/dose Powder 17 g PO QAM PRN (Reason: Constipation) RF: 0 topiramate 25 mg tablet 25 mg PO AMPM RF: 0 terazosin 1 mg capsule 1 mg PO HS RF: 0 pantoprazole 40 mg tablet,delayed release (DR/EC) 40 mg PO QAM RF: 0 gabapentin 300 mg capsule 300 mg PO TID RF: 0 sertraline 50 mg tablet 50 mg PO QAM RF: 0 Lantus Solostar U-100 Insulin 100 unit/mL (3 mL) insulin pen 20 unit subcut BID RF: 0 baclofen 10 mg tablet 5 mg PO BID PRN (Reason: Pain) RF: 0 diclofenac sodium 1 % gel 1 ea TOPICAL BID PRN (Reason: Pain) RF: 0 nystatin 100,000 unit/gram Powder 1 applic TOPICAL TID PRN (Reason: Skin Irritation) RF: 0 lisinopril 10 mg Tablet 10 mg PO QAM Qty: 30 RF: 0 ondansetron HCl 4 mg tablet 4 mg PO Q6 PRN (Reason: Nausea) RF: 0 menthol-zinc oxide [Calmoseptine] 0.44-20.6 % Ointment 1 applic TOPICAL DIRECTED RF: 0 aspirin 81 mg Tablet,Delayed Release (Dr/Ec) 81 mg PO QAM RF: 0 carvedilol 6.25 mg Tablet 6.25 mg PO AMHS Qty: 60 RF: 0 hydralazine 50 mg tablet 50 mg PO TID RF: 0 famotidine 20 mg tablet 20 mg PO QAM RF: 0 amlodipine 10 mg tablet 10 mg PO QAM RF: 0 fluticasone propionate 50 mcg/actuation spray,suspension 2 spray INTRANASAL QAM RF: 0 insulin lispro [Humalog KwikPen Insulin] 100 unit/mL insulin pen 10 unit SUBCUT TIDM RF: 0 nitroglycerin [Nitrostat] 0.4 mg Tablet, Sublingual 0.4 mg sublingual UD PRN (Reason: Chest Pain) RF: 0 furosemide 40 mg tablet 40 mg PO DIRECTED RF: 0 oxycodone-acetaminophen 5-325 mg tablet 1 tab PO Q8H PRN (Reason: Pain) RF: 0 Referrals Referrals: PCP,NO [Primary Care Provider] -
--- NOTE | 2022-01-14 11:50 | XRay Report ---
XR chest 1V portable HISTORY: 76 years-old Female SEPSIS acute sepsis COMPARISON: Chest radiograph 11/14/2021 TECHNIQUE: Portable AP view of the chest FINDINGS: Cardiac silhouette is enlarged. Atherosclerosis of the aorta. Dense calcified plaque of the mitral an nulus. No pneumothorax or large pleural effusion. Chronic interstitial coarsening. Degenerative saenz es of the shoulders and spine with chronic left proximal humeral deformity. IMPRESSION: Cardiomegaly with chronic interstitial coarsening. ACT 112: Negative or not required by law. The above report was generated using voice recognition software. It may contain grammatical, syntax o r spelling errors. Electronically signed by: Dawson Gorman M.D. 01/14/2022 11:49 AM
[2022-01-14 12:40] LABS: Appearance Urine Clear (Clear); Bacteria Urine Automated Negative (Negative); Bilirubin Urine Negative (Negative); Blood Urine 2+ (Negative); Color Urine Yellow; Epithelial Cell Urine Auto 20-30 /lpf (0-5); Glucose Urine UA Negative (Negative); Ketones Urine Negative (Negative); Leukocyte Esterase Urine Negative (Negative); Nitrite Urine Negative (Negative); Specific Gravity Urine 1.013 (1.000-1.030); Urobilinogen Urine Negative (Negative); pH Urine >= 9.0 (4.5-7.5)
[2022-01-14 12:48] LABS: Protein Urine 2+ (Negative)
[2022-01-14 12:57] LABS: Influenza A virus by PCR Negative (Neg); Influenza B virus by PCR Negative (Neg); RSV by PCR Negative (Neg); SARS CoV2 RNA(COVID-19) InHosp NEGATIVE (Negative)
[2022-01-14 13:30] LABS: INR 1.1 (0.9-1.1); Partial Thromboplastin Ratio 0.9; Partial Thromboplastin Time 23.9 Seconds (21.0-31.0); Prothrombin Time 11.3 Seconds (9.0-12.0)
[2022-01-14 13:39] LABS: Basophils # (auto) 0.02 K/uL (0-0.2); Basophils % (auto) 0.2 %; Eosinophils # (auto) 0.01 K/uL (0-0.5); Eosinophils % (auto) 0.1 %; Hematocrit (blood only) 31.2 % (37-47); Immature Granulocytes # (auto) 0.05 K/uL (0.00-0.02); Immature Granulocytes % (auto) 0.4 %; Lymphocytes # (auto) 1.74 K/uL (1.2-3.4); Mean Corpuscular Hemoglobin 28.5 pg (25-34); Mean Corpuscular Hgb Conc 32.1 g/dL (32-36); Mean Corpuscular Volume 88.9 fL (80-100); Mean Platelet Volume 9.8 fL (7.4-10.4); Monocytes # (auto) 0.49 K/uL (0.11-0.59); Monocytes % (auto) 4.2 %; Neutrophils # (auto) 9.26 K/uL (1.4-6.5); Neutrophils % (auto) 80.1 %; Platelet Count 205 K/uL (130-400); RDW Coefficient of Variation 13.9 % (11.5-14.5); RDW Standard Deviation 45.1 fL (36.4-46.3); Red Blood Count 3.51 M/uL (4.2-5.4); White Blood Count 11.57 K/uL (4.8-10.8)
[2022-01-14 13:43] LABS: Troponin I High Sensitivity 609.7 pg/ml (0-14)
[2022-01-14 13:58] LABS: Albumin Globulin Ratio 0.8 (0.9-2); Albumin Level 3.5 gm/dl (3.4-5.0); BUN Creatinine Ratio 36.4 (10-20); Bilirubin,Total 0.8 mg/dl (0.2-1.0); Creatinine Clr Calc Pharmacy 33.5 ml/min; Est GFR (African American) 34.6 ml/min; Est GFR (Non-African American) 29.8 ml/min; Globulin 4.2 gm/dl (2.5-4.0); Magnesium 2.1 mg/dl (1.7-2.4); Potassium 3.7 mmol/L (3.5-5.1); Total Protein 7.7 gm/dl (6.0-8.3)
--- NOTE | 2022-01-14 14:11 | CT Scan Report ---
CT SCAN OF THE BRAIN WITHOUT IV CONTRAST CLINICAL HISTORY: Change in mental status. COMPARISON STUDY: CT of the brain dated 08/08/2021. TECHNIQUE: Unenhanced axial CT scan of the brain is performed from the vertex to the skull base. A do se lowering technique was utilized adhering to the principles of ALARA. CT DOSE: 679.75 mGycm FINDINGS: Brain parenchyma: There is age-related involutional change noting mild subcortical and periventricula r microangiopathic disease. There is no hemorrhage, mass effect, or evidence of acute territorial isc hemia by CT criteria. Palomares-white matter differentiation is preserved. No extra-axial fluid collection is seen. Ventricles, sulci, cisterns: Prominent secondary to involutional change. Intracranial vasculature: There is atherosclerotic calcification of the cavernous carotid and vertebr al arteries. Calvarium: Unremarkable. Sinuses and mastoids: The visualized paranasal sinuses are clear. There is a large right mastoid effu huyen, with opacification of the right middle ear and external auditory canal. The left mastoid air ce lls are well pneumatized. Orbits: The bony orbits are grossly intact. There are bilateral ocular lens implants. IMPRESSION: 1 There is no hemorrhage, mass effect, or evidence of acute territorial ischemia by CT criteria. 2. Large right mastoid effusion with opacification of the right middle ear. This represent a change f rom the 08/08/2021 examination. Correlate clinically for evidence of otomastoiditis. ACT 112: Negative or not required by law. Electronically signed by: Scott Tello M.D. 01/14/2022 2:09 PM
[2022-01-14] MEDS ORDERED: CEFEPIME 2,000 MG/20 ML VIAL ONE (14:40)
--- NOTE | 2022-01-14 14:59 | Electrocardiogram Report ---
Test Reason : Blood Pressure : / mmHG Vent. Rate : 083 BPM Atrial Rate : 083 BPM P-R Int : 182 ms QRS Dur : 094 ms QT Int : 402 ms P-R-T Axes : 082 096 063 degrees QTc Int : 472 ms Normal sinus rhythm Rightward axis Poor R wave progression, consider anterior IA vs. lead placement vs. LVH Nonspecific ST abnormality Abnormal ECG When compared with ECG of 14-NOV-2021 12:19, [place] interval has decreased ST now depressed in Lateral leads Confirmed by Jesús Sprague ([id number]) on 01/14/2022 2:58:48 PM Referred By: Confirmed By:Davin Sprague
[2022-01-14] MEDS ORDERED: ASPIRIN 81 MG CHEW PO STA (16:13)
[2022-01-14] MEDS ORDERED: ISOSORBIDE MONO EXTENDED REL 60 MG TABCR PO ONE (16:27)
[2022-01-14] MEDS ORDERED: amLODIPine BESYLATE 5 MG TAB PO ONE (16:27)
[2022-01-14] MEDS ORDERED: lisinopril 10 MG TAB PO ONE (16:27)
[2022-01-14] MEDS ORDERED: hydrALAZINE TAB 50 MG TAB PO ONE (16:28)
[2022-01-14] MEDS ORDERED: carvediloL 6.25 MG TAB PO ONE (16:31)
--- NOTE | 2022-01-14 16:46 | History & Physical Report ---
Date of Service January 14, 2022 Assessment & Plan (1) AMS (altered mental status): Plan: Patient is 76 y/o F with PMH morbid obesity, DM II, diabetic polyneuropathy, nephropathy, CKD IV, CAD, chronic diastolic HF, HTN, HLD, secondary hyperparathyroidism, bilateral lymphedema, mood disorder presented to ER via EMS for altered mental status. In ER T: 37.8C, P: 81, BP: 200/119, 97% on RA. WBC: 11.5, Lactate and procalcitonin WNL. Na: 146, Cl: 115, CO2: 19, A, VBG pH: 7.43. High sensitivity troponin: 609. CT Head no acute Lab work notable for hemoglobin of 10, sodium of 146, chloride of 115, bicarb of 19, anion gap of 12, BUN of 60, creatinine of 1.65, blood glucose of 214, troponin of 609. UA unremarkable. Urine drug screen negative. Negative COVID-[address] head: No acute hemorrhage, mass-effect or acute ischemia. Does note large right mastoid effusion with opacification of the right ear DDx: Sepsis, mastoiditis, hypertensive emergency Blood cultures, urine culture pending Hold oxycodone Neuro checks Dysphagia screen, aspiration precautions Cefepime for now Was given 1L NSS in ER CBC, BMP in am (2) Mastoiditis: Plan: CT head: No acute hemorrhage, mass-effect or acute ischemia. Does note large right mastoid effusion with opacification of the right ear In ER given cefepime Will continue cefepime for now as meets SIRS criteria May need to consider ENT consult (3) Elevated troponin: Plan: HISTORY CAD High-sensitivity troponin: 609. EKG ST depression lateral leads Patient unable to voice of any shortness of breath or chest pain DDX: ACS, NSTEMI. Monitor Vitals Give morning BP meds Trend troponin Echo Continue aspirin, carvedilol, isosorbide Lipid panel in am Cardiology consult. Dr Esqueda aware recommends echo, trend troponin CKD III-IV Cr: 1.6. baseline appears to be 1.6-2.0 Monitor renal functions. If no improvement consider nephrology consult Chronic heart failure with preserved ejection fraction: Hold Lasix currently and monitor I&O's and reasses tomorrow Insulin dependent diabetes mellitus II A1c 6.2 on 10/28/2021 Continue home Lantus NovoLog sliding scale per protocol Hypertension: BP elevated, likely patient not taking medications Continue amlodipine, carvedilol, hydralazine, lisinopril, terazosin, isosorbide Chronic anemia: Hgb: 10. At baseline Monitor H&H Ambulatory dysfunction: Pt sedentary at baseline Will need PT/OT consult when appropriate Mood disorder: Continue sertraline DVT Prophylaxis Heparin SQ Full Code for now as unable to discuss with patient or patient's sisters Follows with Dr Bullock for routine care Pt was seen and care coordinated with Dr Koehler. See addendum History of Present Illness Chief Complaint: Altered mental status Primary Care Provider: NO PCP Patient is 76 y/o F with PMH morbid obesity, DM II, diabetic polyneuropathy, nephropathy, CKD IV, CAD, chronic diastolic HF, HTN, HLD, secondary hyperparathyroidism, bilateral lymphedema, mood disorder presented to ER via EMS for altered mental status. Unable to obtain history from patient as is currently confused. History obtained from ER staff and outpatient chart review. It is reported EMS arrived to patients home and found her weak and unable to get herself out of her chair. It is reported patients house was in disarray. Unable to obtain history from patient and sisters are unavailable at this time. Allergies Allergy/AdvReac Type Severity Reaction Status Date / Time loratadine Allergy Intermediate MOUTH Verified 01/14/22 13:42 SWELLING diphenhydramine AdvReac Intermediate GMG-SHAKING Verified 01/14/22 13:42 [From Benadryl] & SWEATING metformin AdvReac Intermediate causes Verified 01/14/22 13:42 kidney problems Sulfa (Sulfonamide AdvReac Intermediate Unknown Verified 01/14/22 13:42 Antibiotics) sulfamethoxazole AdvReac Intermediate GMG-RENAL Verified 01/14/22 13:42 COMPLICATIONS trimethoprim AdvReac Intermediate GMG-RENAL Verified 01/14/22 13:42 COMPLICATIONS Cxxkhme-HVW-SgT Reductase AdvReac Mild Gastrointestinal Verified 01/14/22 13:42 Inhibitor Upset [Nuwetyl-Aak-Ewq Reductase Inhibitor] Home Medications Medication Instructions Recorded Confirmed Type gabapentin 300 mg capsule 300 mg PO TID 02/14/19 01/14/22 History insulin glargine 100 unit/mL (3 20 unit SUBCUT BID 02/14/19 01/14/22 History mL) subcutaneous pen (Lantus Solostar U-100 Insulin) pantoprazole 40 mg tablet,delayed 40 mg PO QAM 02/14/19 01/14/22 History release sertraline 50 mg tablet 50 mg PO QAM 02/14/19 01/14/22 History terazosin 1 mg capsule 1 mg PO HS 02/14/19 01/14/22 History topiramate 25 mg tablet 25 mg PO AMPM 02/14/19 01/14/22 History isosorbide mononitrate 120 mg 120 mg PO QAM 04/23/19 01/14/22 History tablet,extended release 24 hr polyethylene glycol 3350 17 17 g PO QAM PRN 04/23/19 01/14/22 History gram/dose oral powder (Miralax) baclofen 10 mg tablet 5 mg PO BID PRN 08/16/20 01/14/22 History diclofenac sodium 1 % topical gel 1 ea TOPICAL BID PRN 08/16/20 01/14/22 History nystatin 100,000 unit/gram topical 1 applic TOPICAL TID PRN 10/27/20 01/14/22 History powder lisinopril 10 mg tablet 10 mg PO QAM #30 tab 12/08/20 01/14/22 Rx aspirin 81 mg tablet,delayed 81 mg PO QAM 02/13/21 01/14/22 History release carvedilol 6.25 mg tablet 6.25 mg PO AMHS #60 tab 02/16/21 01/14/22 Rx amlodipine 10 mg tablet 10 mg PO QAM 05/02/21 01/14/22 History famotidine 20 mg tablet 20 mg PO QAM 05/02/21 01/14/22 History fluticasone propionate 50 2 spray INTRANASAL QAM 05/02/21 01/14/22 History mcg/actuation nasal spray,suspension hydralazine 50 mg tablet 50 mg PO TID 05/02/21 01/14/22 History insulin lispro 100 unit/mL 10 unit SUBCUT TIDM 05/02/21 01/14/22 History subcutaneous pen (Humalog KwikPen (U-100) Insulin) nitroglycerin 0.4 mg sublingual 0.4 mg SUBLINGUAL UD PRN 05/02/21 01/14/22 History tablet (Nitrostat) furosemide 40 mg tablet 40 mg PO DIRECTED 11/14/21 01/14/22 History oxycodone-acetaminophen 5 mg-325 1 tab PO Q8H PRN 11/14/21 01/14/22 History mg tablet menthol 0.44 %-zinc oxide 20.6 % 1 applic TOPICAL DIRECTED 01/14/22 01/14/22 History topical ointment (Calmoseptine) ondansetron HCl 4 mg tablet 4 mg PO Q6 PRN 01/14/22 01/14/22 History Past Med/Surg History Medical History Acute UTI Adjustment disorder CAD (coronary artery disease) CHF (congestive heart failure) CKD (chronic kidney disease) CKD (chronic kidney disease), stage III Encephalopathy acute GERD (gastroesophageal reflux disease) HLD (hyperlipidemia) Hypertension Hyponatremia IBS (irritable bowel syndrome) Insulin dependent diabetes mellitus Mood disorder Morbid obesity Paroxysmal A-fib Pressure ulcer Surgical History H/O hernia repair H/O: H/O: hysterectomy S/P cholecystectomy Family History Brother Prostate cancer Father Diabetes Social History Smoking Status: Unknown if ever smoked Second Hand Exposure: No; Hx Alcohol Use: No Hx Substance Use: No Preferred Language: Gabonese Communication Ability: Impaired Visual Impairment: No Limitations [employer] Required: No Beliefs That Will Affect Care: None marital status: / Current Living Situation: Family Current Living Situation Comment: Patient reports she lives with her sisters and neice. Feels Safe at Home: Yes Assistive Devices: Walker Review of Systems Review of Systems: Unobtainable due to cognitive status Physical Exam Physical Exam: General: no distress, obese Head: normocephalic, atraumatic Eyes: PERRL, EOM's intact, conjunctiva non-injected, anicteric ENT: normal inspection external ears, nose, mucous membranes dry Neck: supple, trachea midline Lungs: clear, no respiratory distress, no wheezing/rhonchi/rales CV: RRR, no murmur, trace pretibial edema Abd: normal BS, soft, no apparent tenderness to palpations Ext: no cyanosis, no calf tenderness Neuro: Pt awake. oriented to self only. Answers all questions with reciting her full name. no focal deficits noted Skin: warm, dry Results & Data Results & Data ([facility]) Vital Signs (Past 12 Hours) Vital Signs Temp Pulse Pulse Resp BP BP Pulse Ox 01/14/22 12:30 80 21 99 01/14/22 12:15 84 38 H 196/77 H 100 01/14/22 12:03 102 H 27 H 100 01/14/22 12:02 156/61 H 100 01/14/22 12:01 106 H 24 95 01/14/22 12:00 146 H 22 99 01/14/22 11:45 83 17 100 01/14/22 11:32 83 24 156/61 H 100 01/14/22 11:30 82 21 99 01/14/22 11:15 81 20 99 01/14/22 11:00 73 27 H 96 01/14/22 10:45 87 33 H 01/14/22 10:37 83 25 H 01/14/22 10:24 37.8 C H 81 21 200/119 H 97 01/14/22 10:17 86 14 98 Laboratory Results Short CBC 01/14/22 Range/Units 12:56 WBC 11.57 H (4.8-10.8) K/uL Hgb 10.0 L (12.0-16.0) g/dL Hct 31.2 L (37-47) % Plt Count 205 (130-400) K/uL BMP 01/14/22 01/14/22 12:56 17:18 Sodium 146 H 146 H Potassium 3.7 3.8 Chloride 115 H 116 H Carbon Dioxide 19 L 20 L BUN 60 H 61 H Creatinine 1.65 H 1.66 H Glucose 214 H 199 H Calcium 9.0 9.0 Liver Function 01/14/22 Range/Units 12:56 Total Bilirubin 0.8 (0.2-1.0) mg/dl AST 24 (13-39) U/L ALT 14 (7-52) U/L Alkaline Phosphatase 69 (34-104) U/L Albumin 3.5 (3.4-5.0) gm/dl Urine 01/14/22 Range/Units 12:20 Urine Color Yellow Urine Appearance Clear (Clear) Urine pH >= 9.0 H (4.5-7.5) Ur Specific [employer] 1.013 (1.000-1.030) Urine Protein 2+ H (Negative) Urine Glucose (UA) Negative (Negative) Diagnostic Findings Chest X-Ray 01/14/22 11:02 XR chest 1V portable HISTORY: 76 years-old Female SEPSIS acute sepsis COMPARISON: Chest radiograph 11/14/2021 TECHNIQUE: Portable AP view of the chest FINDINGS: Cardiac silhouette is enlarged. Atherosclerosis of the aorta. Dense calcified plaque of the mitral annulus. No pneumothorax or large pleural effusion. Chronic interstitial coarsening. Degenerative changes of the shoulders and spine with chronic left proximal humeral deformity. IMPRESSION: Cardiomegaly with chronic interstitial coarsening. ACT 112: Negative or not required by law. The above report was generated using voice recognition software. It may contain grammatical, syntax or spelling errors. Electronically signed by: Dawson Gorman M.D. 01/14/2022 11:[address] 01/14/22 11:25 CT SCAN OF THE BRAIN WITHOUT IV CONTRAST CLINICAL HISTORY: Change in mental status. COMPARISON STUDY: CT of the brain dated 08/08/2021. TECHNIQUE: Unenhanced axial CT scan of the brain is performed from the vertex to the skull base. A dose lowering technique was utilized adhering to the principles of ALARA. CT DOSE: 679.75 mGycm FINDINGS: Brain parenchyma: There is age-related involutional change noting mild subcortical and periventricular microangiopathic disease. There is no hemorrhage, mass effect, or evidence of acute territorial ischemia by CT criteria. Palomares-white matter differentiation is preserved. No extra-axial fluid collection is seen. Ventricles, sulci, cisterns: Prominent secondary to involutional change. Intracranial vasculature: There is atherosclerotic calcification of the cavernous carotid and vertebral arteries. Calvarium: Unremarkable. Sinuses and mastoids: The visualized paranasal sinuses are clear. There is a large right mastoid effusion, with opacification of the right middle ear and external auditory canal. The left mastoid air cells are well pneumatized. Orbits: The bony orbits are grossly intact. There are bilateral ocular lens implants. IMPRESSION: 1 There is no hemorrhage, mass effect, or evidence of acute territorial ischemia by CT criteria. 2. Large right mastoid effusion with opacification of the right middle ear. This represent a change from the 08/08/2021 examination. Correlate clinically for evidence of otomastoiditis. ACT 112: Negative or not required by law. Electronically signed by: Scott Tello M.D. 01/14/2022 2:09 PM ECG Rate (beats per minute): 83 Rhythm: sinus rhythm Findings: + ST depression (Lateral) Code Status & VTE Plan VTE Prophylaxis Plan VTE Prophylaxis will be ordered: Yes Supervising Physician Co-Signing Physician Notes Date of Service: January 14, 2022 History and Physical exam performed by ri History notable for 76-year-old woman with diabetes, CKD 4, CAD, diastolic heart failure, hypertension, lymphedema, mood disorder was brought to the ER for altered mental status. History could not be obtained from patient she is currently awake alert oriented to person only and answer several questions with her name. Exam is notable for elderly woman in no obvious distress, confused, alert and oriented to person only, follows simple commands, pedal edema Lab work notable for hemoglobin of 10, sodium of 146, chloride of 115, bicarb of 19, anion gap of 12, BUN of 60, creatinine of 1.65, blood glucose of 214, troponin of 609 CT head did not show any acute abnormality but showed large right mastoid effus ion with opacification of right middle ear Altered mental status Possibilities include sepsis, mastoiditis, hypertensive emergency Poorly controlled hypertension Elevated trop. EKG was reviewed with Office Machine Punch Operator Dr Esqueda. No concern for ACS at this time Elevated trop likely due to elevated BP in setting of CKD4 Trend trop Give broad spectrum Abx for 24h and deescalate as appropriate to treatment of mastoiditis/otitis media Resume home antihypertensives and monitor Lab suggests possible dehydration. Got 1L IVF in ER. Repeat BMP Hold home diuretic Get VBG Neuro checks Diet once dysphagia screen is passed Agree with other plans as detailed by Faby Marquez PA-C (1) Mastoiditis Laterality: right Qualified Code(s): H70.91 - Unspecified mastoiditis, right ear
[2022-01-14 17:40] LABS: Oxygen Saturation VBG 79.2 %; pH VBG 7.43 (7.36-7.41)
[2022-01-14 17:53] LABS: BUN Creatinine Ratio 36.7 (10-20); Creatinine Clr Calc Pharmacy 33.3 ml/min; Est GFR (African American) 34.3 ml/min; Est GFR (Non-African American) 29.6 ml/min; Potassium 3.8 mmol/L (3.5-5.1)
[2022-01-14 18:07] LABS: Troponin I High Sensitivity 4751.1 pg/ml (0-14)
[2022-01-14 19:09] LABS: Amphetamines+Metham, Urine Neg (Neg); Barbiturates, Urine Neg (Neg); Benzodiazepine, Urine Neg (Neg); Cocaine, Urine Neg (Neg); MDMA (Ecstacy), Urine Neg (Neg); Methadone, Urine Neg (Neg); Opiate, Urine Neg (Neg); Phencyclidine, Urine Neg (Neg)
[2022-01-14] MEDS ORDERED: GLUCOSE 10 TABS/TUBE PO PRN (19:43)
[2022-01-14] MEDS ORDERED: DEXTROSE 5% 1,000 ML IV SCH (19:43)
[2022-01-14] MEDS ORDERED: GLUCAGON FOR INJ 1 MG VIAL SQ PRN (19:43)
[2022-01-14] MEDS ORDERED: DEXTROSE 50% 50 ML SYRINGE IV PRN (19:43)
[2022-01-14] MEDS ORDERED: GLUCOSE 40% GEL 15 GM TUBE PO PRN (19:43)
[2022-01-14] MEDS ORDERED: NITROGLYCERIN SL 0.4 MG/TAB TAB SL PRN (19:43)
[2022-01-14] MEDS ORDERED: ONDANSETRON INJ 2 MG/ML 2 ML VIAL IV PRN (19:43)
[2022-01-14] MEDS ORDERED: CARBOHYDRATES FOR HYPOGLYCEMIA PO PRN (19:43)
[2022-01-14] MEDS ORDERED: POLYETHYLENE (MIRALAX) 17 GM PACK PO PRN (19:43)
[2022-01-14] MEDS ORDERED: VANCOMYCIN CONSULT ACTIVE PRN (19:43)
[2022-01-14] MEDS ORDERED: VANCOMYCIN HCL 2,000 MG in SODIUM CHLORIDE 0.9% 500 ML IV ONE (20:15)
--- NOTE | 2022-01-14 20:30 | Pharmacy Report ---
Pharmacy Vanc AUC Short Note - Date of Service January 14, 2022 - Assessment & Plan Assessment 76 year old F receiving Vancomycin and Cefepime for empiric treatment of mastoiditis. * Presented with AMS. Low grade fever at 37.8oC. Mild leukocytosis of 11.6k. * Urine and blood cultures are pending. * CT head did not show any acute abnormality but showed large right mastoid effusion with opacification of right middle ear Plan Vancomycin * AUC/DHAVAL is the preferred PK/PD target for vancomycin * AUC guided dosing is effective and associated with decreased risk of nephrotoxicity compared to traditional trough targets * Loading dose of 2000 mg IV x 1 * Maintenance dose of 1000 mg IV every 24 hours is predicted to achieve target AUC/DHAVAL of 400-600 mg/L.hr and may be associated with a 10% risk of nephrotoxicity * No trough level will be ordered unless treatment extends beyond 48 hours Cefepime * Target dose of 2000 mg IV every 8 hours * Adjusted to 2000 mg IV every 12 hours for CrCl 30-60 mL/min Pharmacy will continue to follow and will adjust dose/frequency as necessary. Thank you.
[2022-01-14] MEDS: TOPIRAMATE 25 MG TAB PO SCH (20:50)
[2022-01-14] MEDS: TERAZOSIN HCL 1 MG CAP PO SCH (20:50)
[2022-01-14] MEDS: GABAPENTIN 300 MG CAP PO SCH (20:50)
[2022-01-14] MEDS: carvediloL 6.25 MG TAB PO SCH (20:50)
[2022-01-14] MEDS: HEPARIN SOD 5,000 UNIT/0.5 ML VIAL SQ SCH (20:51)
[2022-01-14] MEDS: hydrALAZINE TAB 50 MG TAB PO SCH (20:51)
[2022-01-14] MEDS: INSULIN GLARGINE SOLOSTAR 100 UNITS/ML 3 ML PEN SC SCH (20:52)
[2022-01-14] MEDS: INSULIN ASPART PER UNIT SC SCH (20:55)
[2022-01-14] MEDS: SODIUM CHLORIDE 0.45 % 1,000 ML IV SCH (21:39)
[2022-01-15] MEDS: CEFEPIME 2,000 MG in SYRINGE 0 ML IV SCH ×2 (01:53→13:01)
[2022-01-15] MEDS: HEPARIN SOD 5,000 UNIT/0.5 ML VIAL SQ SCH ×3 (05:48→20:42)
[2022-01-15 06:06] LABS: Partial Thromboplastin Ratio 0.9; Partial Thromboplastin Time 24.8 Seconds (21.0-31.0)
[2022-01-15 06:16] LABS: BUN Creatinine Ratio 33.5 (10-20); Calcium 8.2 mg/dl (8.5-10.1); Chol HDL Ratio 5.9 (0-5); Creatinine Clr Calc Pharmacy 30.2 ml/min; Est GFR (African American) 34.1 ml/min; Est GFR (Non-African American) 29.4 ml/min; Potassium 3.7 mmol/L (3.5-5.1)
[2022-01-15 07:11] LABS: Hematocrit (blood only) 27.9 % (37-47); Hemoglobin 9.1 g/dL (12.0-16.0); Mean Corpuscular Hemoglobin 29.4 pg (25-34); Mean Corpuscular Hgb Conc 32.6 g/dL (32-36); Mean Platelet Volume 9.7 fL (7.4-10.4); Platelet Count 197 K/uL (130-400); RDW Coefficient of Variation 14.4 % (11.5-14.5); RDW Standard Deviation 47.3 fL (36.4-46.3); White Blood Count 15.66 K/uL (4.8-10.8)
[2022-01-15] MEDS: INSULIN ASPART PER UNIT SC SCH ×4 (07:48→20:39)
[2022-01-15] MEDS: FLUTICASONE PROPIONATE NA SPR 16 GM BTL NAE SCH (07:52)
[2022-01-15] MEDS: hydrALAZINE TAB 50 MG TAB PO SCH ×3 (07:54→20:41)
[2022-01-15] MEDS: GABAPENTIN 300 MG CAP PO SCH ×3 (07:54→20:41)
[2022-01-15] MEDS: lisinopril 10 MG TAB PO SCH (07:55)
[2022-01-15] MEDS: ISOSORBIDE MONO EXTENDED REL 60 MG TABCR PO SCH (07:55)
[2022-01-15] MEDS: PANTOprazole 40 MG TAB PO SCH (07:56)
[2022-01-15] MEDS: SERTRALINE HCL 50 MG TABLET PO SCH (07:56)
[2022-01-15] MEDS: TOPIRAMATE 25 MG TAB PO SCH ×2 (07:56→20:42)
[2022-01-15] MEDS: ASPIRIN 81 MG ECTAB PO SCH (07:57)
[2022-01-15] MEDS: amLODIPine BESYLATE 5 MG TAB PO SCH (07:57)
[2022-01-15] MEDS: FAMOTIDINE 20 MG TAB PO SCH (07:57)
[2022-01-15] MEDS: INSULIN GLARGINE SOLOSTAR 100 UNITS/ML 3 ML PEN SC SCH ×2 (07:58→20:41)
[2022-01-15 08:00] LABS: Basophils # (auto) 0.02 K/uL (0-0.2); Basophils % (auto) 0.1 %; Eosinophils # (auto) 0.11 K/uL (0-0.5); Eosinophils % (auto) 0.7 %; Immature Granulocytes % (auto) 0.6 %; Lymphocytes # (auto) 4.02 K/uL (1.2-3.4); Lymphocytes % (auto) 25.7 %; Monocytes # (auto) 1.12 K/uL (0.11-0.59); Monocytes % (auto) 7.2 %; Neutrophils # (auto) 10.29 K/uL (1.4-6.5); Neutrophils % (auto) 65.7 %
[2022-01-15] MEDS: SODIUM CHLORIDE 0.45 % 1,000 ML IV SCH ×2 (09:56→20:39)
--- NOTE | 2022-01-15 10:19 | Hospitalist Progress Note ---
Date of Service January 15, 2022 Assessment & Plan (1) Acute metabolic encephalopathy: Plan: workup negative for infection except in right mastoid and possibly R middle ear. She is improved on antibiotics. ENT saw her and recommended this with no surgical option. Percocet held. Cont to monitor. (2) Mastoiditis: Plan: CT head: No acute hemorrhage, mass-effect or acute ischemia. Does note large r ight mastoid effusion with opacification of the right ear In ER given cefepime Continuing cefepime-ENT consult with recs on chart. (3) Elevated troponin: (4) Cardiomyopathy: (5) CAD (coronary artery disease): (6) CKD (chronic kidney disease), stage III: Plan: h/o CAD, cardiology consulted. No chest pain or EKG changes to suggest acute ischemia. Echo pending. CKD III-IV Cr: 1.6. baseline appears to be 1.6-2.0 Monitor renal functions. If no improvement consider nephrology consult Chronic heart failure with preserved ejection fraction: Hold Lasix currently and monitor I&O's and reasses tomorrow Insulin dependent diabetes mellitus II A1c 6.2 on 10/28/2021 Continue home Lantus NovoLog sliding scale per protocol Hypertension: BP elevated, likely patient not taking medications Continue amlodipine, carvedilol, hydralazine, lisinopril, terazosin, isosorbide Chronic anemia: Hgb: 10. At baseline Monitor H&H Ambulatory dysfunction: Pt sedentary at baseline PT/OT assessment Mood disorder: Continue sertraline DVT Prophylaxis Heparin SQ DO Ruiz Horton Hospitalist Admission and Anticipated Discharge Date Admission Date: January 14, 2022 Subjective The patient is a 76-year-old female who presented with confusion via ambulance. Blood sugar glucose was 200. Per EMS the patient's house was a mess and very dirty. The patient was too weak to get out of her own chair and they had to lift her. She was found to have a mild leukocytosis, anemia with a hemoglobin of 10 possible dehydration with a higher sodium and BUN. EKG revealed normal sinus rhythm with no obvious acute ischemia however cardiac enzyme testing did show an elevation at 600 and this yuni overnight into the 7000 range. Urinalysis with no evidence of infection. Flu, COVID and RSV were negative. Chest x-ray with no pneumonia or CHF present. Brain CT with a possible right mastoiditis and right otitis media. There was no intracranial bleeding or mass- effect. She was given IV cefepime, saline and IV Tylenol and admitted to medicine. She was not in obvious distress on exam. Elevated troponin was discussed with cardiology and thought secondary to elevated blood pressure in setting of renal disease. An echo was performed overnight revealing mild global hypokinesis with an EF of 40 to 45%. There was moderate hypokinesis of the mid and apical anteroseptal hernandez along with the apex. Is severely calcified posterior mitral valve leaflet with reduced motion was seen. Severe mitral regurgitation with mild mitral stenosis was seen. Doing well today and confusion has resolved reports pain in her right ear and right shoulder/neck area recently denies fevers cannot really say what has been going on at home poor historian Review of Systems Review of Systems: All systems were reviewed and negative except as indicated in subjective above. Physical Exam Physical Exam: CONSTITUTIONAL: morbid obesity, vitals as above, generally well-appearing EYES: normal conjunctivae with mild crusting on medial corner of right eye, no scleral icterus, ENT: external ear and nose normal, oropharynx clear, cannot visualize earddrum because of bony growth into the treasure, no maxillary or ethmoid sinus tenderness, TTP over right mastoid. NECK: trachea midline RESPIRATORY: clear to auscultation bilaterally, no crackles, rales or wheezes, normal respiratory effort CARDIOVASCULAR: regular rate and rhythm, S1 and 2 heard without murmurs, gallops or rubs, no JVD, no peripheral edema CHEST: inspection of chest was normal GASTROINTESTINAL: normal bowel sounds, soft, nontender, ND, no guarding MUSCULOSKELETAL: strength 5/5 throughout, head is normocephalic and atraumatic, neck supple, normal palpation of chest wall without tenderness SKIN: warm and dry, no rashes NEUROLOGIC: CN 2-12 grossly intact, no sensory deficit, normal cognition, normal speech, no tremor PSYCHIATRIC: alert cooperative and oriented to person, place and time. Euthymic mood, makes good eye contact, language grossly intact, recent and remote memory grossly intact. Results & Data Results & Data ([facility]) Vital Signs (Past 12 Hours) Vital Signs Temp Pulse Pulse Resp BP BP Pulse Ox 01/15/22 07:02 68 25 H 134/83 96 01/15/22 07:00 71 25 H 98 01/15/22 06:02 70 21 119/71 99 01/15/22 06:00 78 19 99 01/15/22 05:00 54 L 23 104/61 98 01/15/22 04:00 70 18 117/66 98 01/15/22 03:45 37 C 01/15/22 03:43 69 27 H 124/70 99 01/15/22 03:30 66 17 124/70 100 01/15/22 00:13 37.1 C 64 16 130/78 100 Laboratory Results Short CBC 01/14/22 01/15/22 Range/Units 12:56 05:18 WBC 11.57 H 15.66 H (4.8-10.8) K/uL Hgb 10.0 L 9.1 L (12.0-16.0) g/dL Hct 31.2 L 27.9 L (37-47) % Plt Count 205 197 (130-400) K/uL BMP 01/14/22 01/14/22 01/15/22 12:56 17:18 05:18 Sodium 146 H 146 H 143 Potassium 3.7 3.8 3.7 Chloride 115 H 116 H 115 H Carbon Dioxide 19 L 20 L 21 BUN 60 H 61 H 56 H Creatinine 1.65 H 1.66 H 1.67 H Glucose 214 H 199 H 101 H Calcium 9.0 9.0 8.2 L Cardiac Enzymes 01/14/22 01/15/22 Range/Units 20:29 05:18 Total Creatine Kinase 297 H 243 H (26-192) U/L Liver Function 01/14/22 Range/Units 12:56 Total Bilirubin 0.8 (0.2-1.0) mg/dl AST 24 (13-39) U/L ALT 14 (7-52) U/L Alkaline Phosphatase 69 (34-104) U/L Albumin 3.5 (3.4-5.0) gm/dl Urine 01/14/22 Range/Units 12:20 Urine Color Yellow Urine Appearance Clear (Clear) Urine pH >= 9.0 H (4.5-7.5) Ur Specific [place] 1.013 (1.000-1.030) Urine Protein 2+ H (Negative) Urine Glucose (UA) Negative (Negative) Medications Administered Current Inpatient Medications Acetaminophen (Acetaminophen 325 Mg Tab) 650 mg PO Q4H PRN PRN Reason: Pain or Fever Stop: 02/13/22 19:42 Amlodipine Besylate ([facility]ip[facility] Besylate 5 Mg Tab) [facility] [place]: 02/14/22 08:59 Last Admin: 01/15/22 07:57 Dose: 10 mg Documented by: Aspirin (Aspirin 81 Mg Ectab) [facility] [place]: 02/14/22 08:59 Last Admin: 01/15/22 07:57 Dose: 81 mg Documented by: Carvedilol (Carvedilol 6.25 Mg Tab) 6.25 mg PO AMHS [facility] Stop: 02/13/22 20:59 Last Admin: 01/14/22 20:50 Dose: 6.25 mg Documented by: Dextrose (Dextrose 50% 50 Ml Syringe) 25 - 50 ml IV UD PRN; Protocol PRN Reason: Hypoglycemia Protocol Stop: 02/13/22 19:42 Famotidine (Famotidine 20 Mg Tab) 20 mg PO [facility] Stop: 02/14/22 08:59 Last Admin: 01/15/22 07:57 Dose: 20 mg Documented by: Fluticasone Propionate (Fluticasone Propionate Na Spr 16 Gm Btl) 2 sprays ANSELMO [facility] Stop: 02/14/22 08:59 Last Admin: 01/15/22 07:52 Dose: 2 sprays Documented by: Gabapentin (Gabapentin 300 Mg Cap) 300 mg PO TID [facility] Stop: 02/13/22 20:59 Last Admin: 01/15/22 07:54 Dose: 300 mg Documented by: Glucagon (Glucagon For Inj 1 Mg Vial) 1 mg SQ UD PRN; Protocol PRN Reason: Hypoglycemia Protocol Stop: 02/13/22 19:42 Glucose (Glucose 10 Tabs/Tube) 4 - 8 tabs PO UD PRN; Protocol PRN Reason: Hypoglycemia Protocol Stop: 02/13/22 19:42 Glucose (Glucose 40% Gel 15 Gm Tube) 15 - 30 gm PO UD PRN; Protocol PRN Reason: Hypoglycemia Protocol Stop: 02/13/22 19:42 Heparin Sodium (Porcine) (Heparin Sod 5,000 Unit/0.5 Ml Vial) 5,000 units SQ Q8 [facility] Stop: 02/13/22 21:59 Last Admin: 01/15/22 05:48 Dose: 5,000 units Documented by: Hydralazine HCl (Hydralazine Tab 50 Mg Tab) 50 mg PO TID [facility] Stop: 02/13/22 20:59 Last Admin: 01/15/22 07:54 Dose: 50 mg Documented by: Cefepime HCl 2,000 mg/ Syringe 20 mls @ 5 mls/min IV Q12H [facility]; Protocol Stop: 01/17/22 01:59 Last Admin: 01/15/22 01:53 Dose: 5 mls/min Documented by: Vancomycin HCl 1,000 mg/ (Sodium Chloride) 270 mls @ 200 mls/hr IV Q24H [facility]; Protocol Stop: 01/17/22 19:59 Sodium Chloride (1/2 Nss) 1,000 mls @ 80 mls/hr IV .[id number] [facility] Stop: 02/13/22 21:29 Last Admin: 01/15/22 09:56 Dose: 80 mls/hr Documented by: Insulin Aspart (Insulin Aspart Per Unit) 0 units SC ACHS [facility] Stop: 02/13/22 20:59 Last Admin: 01/15/22 07:48 Dose: Not Given Documented by: Insulin Glargine (Insulin Glargine Solostar 100 Units/Ml 3 Ml Pen) 20 units SC BID [facility] Stop: 02/13/22 20:59 Last Admin: 01/15/22 07:58 Dose: 20 units Documented by: Isosorbide Mononitrate (Isosorbide [place] Extended Rel 60 Mg Tabcr) 120 mg PO QAM [facility] Stop: 02/14/22 08:59 Last Admin: 01/15/22 07:55 Dose: 120 mg Documented by: Lisinopril (Lisinopril 10 Mg Tab) 10 mg PO QAM [facility] Stop: 02/14/22 08:59 Last Admin: 01/15/22 07:55 Dose: 10 mg Documented by: Miscellaneous (Carbohydrates For Hypoglycemia ) 15 - 30 gm PO UD PRN PRN Reason: Hypoglycemia Protocol Stop: 02/13/22 19:42 Miscellaneous Information (Vancomycin Consult Active) 1 ea N/A UD PRN PRN Reason: Consult Stop: 02/13/22 19:42 Nitroglycerin (Nitroglycerin Sl 0.4 Mg/Tab Tab) 0.4 mg SL UD PRN PRN Reason: Chest Pain Stop: 02/13/22 19:42 Ondansetron HCl (Ondansetron Inj 2 Mg/Ml 2 Ml Vial) 4 mg IV Q6H PRN PRN Reason: Nausea Stop: 02/13/22 19:42 Last Admin: 01/15/22 08:50 Dose: 4 mg Documented by: Pantoprazole Sodium (Pantoprazole 40 Mg Tab) 40 mg PO QAM [facility] Stop: 02/14/22 08:59 Last Admin: 01/15/22 07:56 Dose: 40 mg Documented by: Polyethylene Glycol (Polyethylene (Miralax) 17 Gm Pack) 17 gm PO DAILY PRN PRN Reason: Constipation Stop: 02/13/22 19:42 Sertraline HCl (Sertraline Hcl 50 Mg Tablet) 50 mg PO QAM [facility] Stop: 02/14/22 08:59 Last Admin: 01/15/22 07:56 Dose: 50 mg Documented by: Terazosin HCl (Terazosin Hcl 1 Mg Cap) 1 mg PO HS [facility] Stop: 02/13/22 20:59 Last Admin: 01/14/22 20:50 Dose: 1 mg Documented by: Topiramate (Topiramate 25 Mg Tab) 25 mg PO BID [facility] Stop: 02/13/22 20:59 Last Admin: 01/15/22 07:56 Dose: 25 mg Documented by: (1) Mastoiditis Laterality: right Qualified Code(s): H70.91 - Unspecified mastoiditis, right ear
[2022-01-15] MEDS: carvediloL 6.25 MG TAB PO SCH ×2 (11:21→20:40)
[2022-01-15] MEDS: ACETAMINOPHEN 325 MG TAB PO PRN ×2 (12:36→20:47)
--- NOTE | 2022-01-15 12:59 | Cardiology Consultation ---
Date of Consultation January 15, 2022 Assessment & Plan (1) Acute confusion: (2) Weakness: (3) Elevated troponin: (4) CKD (chronic kidney disease), stage III: (5) Acute pain of right shoulder: (6) Acute metabolic encephalopathy: (7) CAD (coronary artery disease): (8) Mitral regurgitation: (9) Cardiomyopathy: Troponin elevated at presentation with nonspecific EKG changes. Echocardiogram with mild global hypokinesis and moderate hypokinesis of the mid and apical anterior septal hernandez and apex. Severe calcific posterior mitral valve leaflet with severe mitral regurgitation. Given the fact that she is symptom-free from a cardiac standpoint there is no indication for urgent cardiac catheterization. However, given her severe mitral regurgitation and wall motion abnormalities on echocardiogram cardiac catheterization would be prudent in the near future to further evaluate and assess if cardiothoracic surgery referral would be appropriate. Can increase terazosin or hydralazine dose as needed for further blood pressure control. Unable to uptitrate beta-jaquan at this time given relative bradycardia History of Present Illness Attending Physician: Nallely Iyer, History of Present Illness Pt is a 76 yo female with a PMH of CAD, DM, Diastolic HF, CKD, and HTN who presented last night to the ER with increased confusion and altered mental status. Before admission, pt reports loss of appetite and stomachache. She does not remember being brought to the hospital or why she was brought to the hospital. In the ER, she had an elevated troponin of 609 without EKG changes. T: 37.8C, P: 81, BP: 200/119, 97% on RA. WBC count was elevated a 11.5. Head CT showed large, right mastoid effusion on head CT. No acute hemorrhage, mass effect, or acute ischemia was noted. Urinary analysis was unremarkable. She was treated with Cefepine, IV saline, and IV Tylenol. Echo overnight demonstrated mild global hypokinesis with an EF of 40-45%. Moderate hypokinesis of the mid and apical anteroseptal hernandez along the apex. Severely calcified posterior mitral valve leaflet with reduced motion was seen with severe mitral regurgitation. Today, pt denies chest pain or shortness of breath. She does not remember the events leading up to admission, but she does feel that her stomach pain is less than it had been over the last week. She continues to not have an appetite. She is aware of why she was admitted stating they had trouble waking me up. She notes headache on the right side. Additionally, she notes long-standing lower back pain on the right side that radiates to her neck. Allergies Allergy/AdvReac Type Severity Reaction Status Date / Time loratadine Allergy Intermediate MOUTH Verified 01/14/22 13:42 SWELLING diphenhydramine AdvReac Intermediate GMG-SHAKING Verified 01/14/22 13:42 [From Benadryl] & SWEATING metformin AdvReac Intermediate causes Verified 01/14/22 13:42 kidney problems Sulfa (Sulfonamide AdvReac Intermediate Unknown Verified 01/14/22 13:42 Antibiotics) sulfamethoxazole AdvReac Intermediate GMG-RENAL Verified 01/14/22 13:42 COMPLICATIONS trimethoprim AdvReac Intermediate GMG-RENAL Verified 01/14/22 13:42 COMPLICATIONS Wvezcah-NGV-YqZ Reductase AdvReac Mild Gastrointestinal Verified 01/14/22 13:42 Inhibitor Upset [Yzbehom-Ugv-Hhn Reductase Inhibitor] Home Medications Medication Instructions Recorded Confirmed Type gabapentin 300 mg capsule 300 mg PO TID 02/14/19 01/14/22 History insulin glargine 100 unit/mL (3 20 unit SUBCUT BID 02/14/19 01/14/22 History mL) subcutaneous pen (Lantus Solostar U-100 Insulin) pantoprazole 40 mg tablet,delayed 40 mg PO QAM 02/14/19 01/14/22 History release sertraline 50 mg tablet 50 mg PO QAM 02/14/19 01/14/22 History terazosin 1 mg capsule 1 mg PO HS 02/14/19 01/14/22 History topiramate 25 mg tablet 25 mg PO AMPM 02/14/19 01/14/22 History isosorbide mononitrate 120 mg 120 mg PO QAM 04/23/19 01/14/22 History tablet,extended release 24 hr polyethylene glycol 3350 17 17 g PO QAM PRN 04/23/19 01/14/22 History gram/dose oral powder (Miralax) baclofen 10 mg tablet 5 mg PO BID PRN 08/16/20 01/14/22 History diclofenac sodium 1 % topical gel 1 ea TOPICAL BID PRN 08/16/20 01/14/22 History nystatin 100,000 unit/gram topical 1 applic TOPICAL TID PRN 10/27/20 01/14/22 History powder lisinopril 10 mg tablet 10 mg PO QAM #30 tab 12/08/20 01/14/22 Rx aspirin 81 mg tablet,delayed 81 mg PO QAM 02/13/21 01/14/22 History release carvedilol 6.25 mg tablet 6.25 mg PO AMHS #60 tab 02/16/21 01/14/22 Rx amlodipine 10 mg tablet 10 mg PO QAM 05/02/21 01/14/22 History famotidine 20 mg tablet 20 mg PO QAM 05/02/21 01/14/22 History fluticasone propionate 50 2 spray INTRANASAL QAM 05/02/21 01/14/22 History mcg/actuation nasal spray,suspension hydralazine 50 mg tablet 50 mg PO TID 05/02/21 01/14/22 History insulin lispro 100 unit/mL 10 unit SUBCUT TIDM 05/02/21 01/14/22 History subcutaneous pen (Humalog KwikPen (U-100) Insulin) nitroglycerin 0.4 mg sublingual 0.4 mg SUBLINGUAL UD PRN 05/02/21 01/14/22 History tablet (Nitrostat) furosemide 40 mg tablet 40 mg PO DIRECTED 11/14/21 01/14/22 History oxycodone-acetaminophen 5 mg-325 1 tab PO Q8H PRN 11/14/21 01/14/22 History mg tablet menthol 0.44 %-zinc oxide 20.6 % 1 applic TOPICAL DIRECTED 01/14/22 01/14/22 History topical ointment (Calmoseptine) ondansetron HCl 4 mg tablet 4 mg PO Q6 PRN 01/14/22 01/14/22 History Patient History Medical History (Updated 01/15/22 @ 12:56 by Elgin Esqueda DO) Acute UTI Adjustment disorder CAD (coronary artery disease) CHF (congestive heart failure) CKD (chronic kidney disease) CKD (chronic kidney disease), stage III Encephalopathy acute GERD (gastroesophageal reflux disease) HLD (hyperlipidemia) Hypertension Hyponatremia IBS (irritable bowel syndrome) Insulin dependent diabetes mellitus Mood disorder Morbid obesity Paroxysmal A-fib Pressure ulcer Surgical History H/O hernia repair H/O: H/O: hysterectomy S/P cholecystectomy Family History Brother Prostate cancer Father Diabetes Social History Smoking Status: Never smoker Second Hand Exposure: No; Hx Alcohol Use: No Hx Substance Use: No Preferred Language: Portuguese Communication Ability: Effective Visual Impairment: No Limitations Industrial Engineering Required: No Beliefs That Will Affect Care: None marital status: / Current Living Situation: Family Current Living Situation Comment: Patient reports she lives with her sisters and neice. Other Information That Helps Us Care for You: No Feels Safe at Home: Yes Safety Concerns: Feels Safe At This Time Assistive Devices: Cane and Walker Review of Systems Review of Systems: All systems reviewed & are unremarkable except as noted in HPI & below Physical Exam Physical Exam: General: Awake, alert and oriented x 3. No acute distress. Frail in appearance HEENT: Normocephalic, atraumatic. Pupils equal, round and reactive to light and accommodation. Extraocular muscles are intact. Anicteric sclera. Moist mucous membranes. Neck: No JVD. No bruit. Cardiovascular: Regular. Positive S-4. Normal S-1 and S-2. No S-3. 3/6 holosystolic ejection murmur, left sternal border, mid-clavicular line with radiation to the axilla. No rubs. Pulmonary: Clear to auscultation bilaterally. No rales, rhonchi, or wheezing. Abdomen: Bowel sounds x 4, soft. No rebound, guarding or tenderness. No organomegaly. Extremities: No clubbing, cyanosis or edema. +2 pedal pulses bilaterally. Skin: Warm and dry. Results & Data ([facility]) Vital Signs (Past 12 Hours) Vital Signs Temp Pulse Resp BP BP Pulse Ox 01/15/22 12:22 170/90 H 01/15/22 12:21 63 22 170/90 H 97 01/15/22 12:00 68 14 95 01/15/22 11:01 71 17 167/80 H 94 01/15/22 11:00 66 23 93 01/15/22 10:46 165/91 H 01/15/22 10:45 72 26 H 165/91 H 99 01/15/22 10:00 66 19 98 01/15/22 09:00 67 15 93 01/15/22 08:00 71 28 H 131/111 H 97 01/15/22 07:02 68 25 H 134/83 96 01/15/22 07:00 71 25 H 98 01/15/22 06:02 70 21 119/71 99 01/15/22 06:00 78 19 99 01/15/22 05:00 54 L 23 104/61 98 01/15/22 04:00 70 18 117/66 98 01/15/22 03:45 37 C 01/15/22 03:43 69 27 H 124/70 99 01/15/22 03:30 66 17 124/70 100
--- NOTE | 2022-01-15 15:55 | ENT Consultation ---
Date of Consultation January 15, 2022 Assessment & Plan (1) Mastoiditis: Patient responding well to IV antibiotics. Not a candidate for tube placement given exostoses. Will see in follow-up in 4 weeks. Should be discharged on oral antibiotics. Dr. De Lo sSantos is taking over ENT call tomorrow, reach out to him for any questions or concerns. History of Present Illness Reason for Consultation: possible mastoiditis Attending Physician: Nallely Iyer, History of Present Illness See ED note. Patient more lucid today, but still poor historian. States only has shoulder pain currently. Allergies Allergy/AdvReac Type Severity Reaction Status Date / Time loratadine Allergy Intermediate MOUTH Verified 01/14/22 13:42 SWELLING diphenhydramine AdvReac Intermediate GMG-SHAKING Verified 01/14/22 13:42 [From Benadryl] & SWEATING metformin AdvReac Intermediate causes Verified 01/14/22 13:42 kidney problems Sulfa (Sulfonamide AdvReac Intermediate Unknown Verified 01/14/22 13:42 Antibiotics) sulfamethoxazole AdvReac Intermediate GMG-RENAL Verified 01/14/22 13:42 COMPLICATIONS trimethoprim AdvReac Intermediate GMG-RENAL Verified 01/14/22 13:42 COMPLICATIONS Oxyeoek-KTJ-GgG Reductase AdvReac Mild Gastrointestinal Verified 01/14/22 13:42 Inhibitor Upset [Gtudhej-Ijb-Xqt Reductase Inhibitor] Home Medications Medication Instructions Recorded Confirmed Type gabapentin 300 mg capsule 300 mg PO TID 02/14/19 01/14/22 History insulin glargine 100 unit/mL (3 20 unit SUBCUT BID 02/14/19 01/14/22 History mL) subcutaneous pen (Lantus Solostar U-100 Insulin) pantoprazole 40 mg tablet,delayed 40 mg PO QAM 02/14/19 01/14/22 History release sertraline 50 mg tablet 50 mg PO QAM 02/14/19 01/14/22 History terazosin 1 mg capsule 1 mg PO HS 02/14/19 01/14/22 History topiramate 25 mg tablet 25 mg PO AMPM 02/14/19 01/14/22 History isosorbide mononitrate 120 mg 120 mg PO QAM 04/23/19 01/14/22 History tablet,extended release 24 hr polyethylene glycol 3350 17 17 g PO QAM PRN 04/23/19 01/14/22 History gram/dose oral powder (Miralax) baclofen 10 mg tablet 5 mg PO BID PRN 08/16/20 01/14/22 History diclofenac sodium 1 % topical gel 1 ea TOPICAL BID PRN 08/16/20 01/14/22 History nystatin 100,000 unit/gram topical 1 applic TOPICAL TID PRN 10/27/20 01/14/22 History powder lisinopril 10 mg tablet 10 mg PO QAM #30 tab 12/08/20 01/14/22 Rx aspirin 81 mg tablet,delayed 81 mg PO QAM 02/13/21 01/14/22 History release carvedilol 6.25 mg tablet 6.25 mg PO AMHS #60 tab 02/16/21 01/14/22 Rx amlodipine 10 mg tablet 10 mg PO QAM 05/02/21 01/14/22 History famotidine 20 mg tablet 20 mg PO QAM 05/02/21 01/14/22 History fluticasone propionate 50 2 spray INTRANASAL QAM 05/02/21 01/14/22 History mcg/actuation nasal spray,suspension hydralazine 50 mg tablet 50 mg PO TID 05/02/21 01/14/22 History insulin lispro 100 unit/mL 10 unit SUBCUT TIDM 05/02/21 01/14/22 History subcutaneous pen (Humalog KwikPen (U-100) Insulin) nitroglycerin 0.4 mg sublingual 0.4 mg SUBLINGUAL UD PRN 05/02/21 01/14/22 History tablet (Nitrostat) furosemide 40 mg tablet 40 mg PO DIRECTED 11/14/21 01/14/22 History oxycodone-acetaminophen 5 mg-325 1 tab PO Q8H PRN 11/14/21 01/14/22 History mg tablet menthol 0.44 %-zinc oxide 20.6 % 1 applic TOPICAL DIRECTED 01/14/22 01/14/22 History topical ointment (Calmoseptine) ondansetron HCl 4 mg tablet 4 mg PO Q6 PRN 01/14/22 01/14/22 History Patient History Medical History Acute UTI Adjustment disorder CAD (coronary artery disease) CHF (congestive heart failure) CKD (chronic kidney disease) CKD (chronic kidney disease), stage III Encephalopathy acute GERD (gastroesophageal reflux disease) HLD (hyperlipidemia) Hypertension Hyponatremia IBS (irritable bowel syndrome) Insulin dependent diabetes mellitus Mood disorder Morbid obesity Paroxysmal A-fib Pressure ulcer Surgical History H/O hernia repair H/O: H/O: hysterectomy S/P cholecystectomy Family History Brother Prostate cancer Father Diabetes Social History Smoking Status: Never smoker Second Hand Exposure: No; Hx Alcohol Use: No Hx Substance Use: No Preferred Language: Nepali Communication Ability: Effective Visual Impairment: No Limitations Inspector Purchased Parts Required: No Beliefs That Will Affect Care: None marital status: / Current Living Situation: Family Current Living Situation Comment: Patient reports she lives with her sisters and neice. Other Information That Helps Us Care for You: No Feels Safe at Home: Yes Safety Concerns: Feels Safe At This Time Assistive Devices: Cane and Walker Review of Systems Review of Systems: negative except per HPI Physical Exam Physical Exam: AAOx3 NAD ENMT: Otoscope showed exostoses on right obstructing view of TM, but no mastoid tenderness or erythema, no drainage. Results & Data ([facility]) Vital Signs (Past 12 Hours) Vital Signs Pulse Resp BP BP Pulse Ox 01/15/22 14:00 59 L 16 96 01/15/22 13:01 62 18 157/80 H 97 01/15/22 13:00 58 L 19 157/80 H 98 01/15/22 12:22 170/90 H 01/15/22 12:21 63 22 170/90 H 97 01/15/22 12:00 68 14 95 01/15/22 11:01 71 17 167/80 H 94 01/15/22 11:00 66 23 93 01/15/22 10:46 165/91 H 01/15/22 10:45 72 26 H 165/91 H 99 01/15/22 10:00 66 19 98 01/15/22 09:00 67 15 93 01/15/22 08:00 71 28 H 131/111 H 97 01/15/22 07:02 68 25 H 134/83 96 01/15/22 07:00 71 25 H 98 01/15/22 06:02 70 21 119/71 99 01/15/22 06:00 78 19 99 01/15/22 05:00 54 L 23 104/61 98 01/15/22 04:00 70 18 117/66 98 (1) Mastoiditis Laterality: right Qualified Code(s): H70.91 - Unspecified mastoiditis, right ear
[2022-01-15] MEDS: VANCOMYCIN HCL 1,000 MG in SODIUM CHLORIDE 0.9% 250 ML IV SCH (20:39)
[2022-01-15] MEDS: TERAZOSIN HCL 1 MG CAP PO SCH (20:42)
[2022-01-16] MEDS: CEFEPIME 2,000 MG in SYRINGE 0 ML IV SCH ×2 (02:05→14:26)
[2022-01-16] MEDS: HEPARIN SOD 5,000 UNIT/0.5 ML VIAL SQ SCH ×3 (05:52→20:28)
[2022-01-16 06:56] LABS: Creatinine Clr Calc Pharmacy 31.6 ml/min; Est GFR (African American) 35.4 ml/min; Est GFR (Non-African American) 30.5 ml/min
[2022-01-16] MEDS: INSULIN ASPART PER UNIT SC SCH ×4 (07:48→20:29)
[2022-01-16 08:00] LABS: Hemoglobin 8.5 g/dL (12.0-16.0); Mean Corpuscular Hemoglobin 29.2 pg (25-34); Mean Corpuscular Hgb Conc 32.7 g/dL (32-36); Mean Corpuscular Volume 89.3 fL (80-100); Mean Platelet Volume 9.7 fL (7.4-10.4); Platelet Count 137 K/uL (130-400); RDW Standard Deviation 45.9 fL (36.4-46.3); Red Blood Count 2.91 M/uL (4.2-5.4); White Blood Count 12.67 K/uL (4.8-10.8)
[2022-01-16] MEDS: FAMOTIDINE 20 MG TAB PO SCH (08:09)
[2022-01-16] MEDS: amLODIPine BESYLATE 5 MG TAB PO SCH (08:09)
[2022-01-16] MEDS: carvediloL 6.25 MG TAB PO SCH ×2 (08:09→20:27)
[2022-01-16] MEDS: FLUTICASONE PROPIONATE NA SPR 16 GM BTL NAE SCH (08:09)
[2022-01-16] MEDS: ASPIRIN 81 MG ECTAB PO SCH (08:09)
[2022-01-16] MEDS: SERTRALINE HCL 50 MG TABLET PO SCH (08:10)
[2022-01-16] MEDS: INSULIN GLARGINE SOLOSTAR 100 UNITS/ML 3 ML PEN SC SCH ×2 (08:10→20:29)
[2022-01-16] MEDS: PANTOprazole 40 MG TAB PO SCH (08:10)
[2022-01-16] MEDS: hydrALAZINE TAB 50 MG TAB PO SCH ×3 (08:10→20:28)
[2022-01-16] MEDS: lisinopril 10 MG TAB PO SCH (08:10)
[2022-01-16] MEDS: TOPIRAMATE 25 MG TAB PO SCH ×2 (08:10→20:28)
[2022-01-16] MEDS: ISOSORBIDE MONO EXTENDED REL 60 MG TABCR PO SCH (08:10)
[2022-01-16] MEDS: GABAPENTIN 300 MG CAP PO SCH ×3 (08:10→20:28)
[2022-01-16] MEDS ORDERED: oxyCODONE/ACETAMINOPHEN 5mg/325mg TAB PO STA (13:23)
--- NOTE | 2022-01-16 14:35 | Cardiology Progress Note ---
Date of Service January 16, 2022 Assessment & Plan (1) Acute confusion: (2) Weakness: (3) Elevated troponin: (4) CKD (chronic kidney disease), stage III: (5) Acute pain of right shoulder: (6) Acute metabolic encephalopathy: (7) CAD (coronary artery disease): (8) Mitral regurgitation: (9) Cardiomyopathy: Plan: Troponin elevated at presentation with nonspecific EKG changes. Echocardiogram with mild global hypokinesis and moderate hypokinesis of the mid and apical anterior septal hernandez and apex. Severe calcific posterior mitral valve leaflet with severe mitral regurgitation. Given the fact that she is symptom-free from a cardiac standpoint there is no indication for urgent cardiac catheterization. However, given her severe mitral regurgitation and wall motion abnormalities on echocardiogram cardiac catheterization would be prudent in the near future to f urther evaluate and assess if cardiothoracic surgery referral would be appropriate. Can increase terazosin or hydralazine dose as needed for further blood pressure control. Unable to uptitrate beta-jaquan at this time given relative bradycardia Admission and Anticipated Discharge Date Admission Date: January 14, 2022 Subjective Patient seen and examined, chart reviewed. States that her main complaint remains that of just overall weakness and fatigue. Denies chest pain or shortness of breath. Review of Systems Review of Systems: All systems reviewed & are unremarkable except as noted in HPI & below Physical Exam Physical Exam: General: Awake, alert and oriented x 3. No acute distress. Frail in appearance HEENT: Normocephalic, atraumatic. Pupils equal, round and reactive to light and accommodation. Extraocular muscles are intact. Anicteric sclera. Moist mucous membranes. Neck: No JVD. No bruit. Cardiovascular: Regular. Positive S-4. Normal S-1 and S-2. No S-3. 3/6 holosystolic ejection murmur, left sternal border, mid-clavicular line with radiation to the axilla. No rubs. Pulmonary: Clear to auscultation bilaterally. No rales, rhonchi, or wheezing. Abdomen: Bowel sounds x 4, soft. No rebound, guarding or tenderness. No organomegaly. Extremities: No clubbing, cyanosis or edema. +2 pedal pulses bilaterally. Skin: Warm and dry. Results & Data ([facility]) Vital Signs (Past 12 Hours) Vital Signs Temp Pulse Pulse Resp BP Pulse Ox 05/20/22 11:39 36.6 C 62 20 125/70 96 01/16/22 08:00 62 01/16/22 07:45 36.9 C 69 20 132/70 98 01/16/22 03:12 36.8 C 59 L 16 114/65 94
--- NOTE | 2022-01-16 17:45 | Electrocardiogram Report ---
Test Reason : Blood Pressure : / mmHG Vent. Rate : 078 BPM Atrial Rate : 078 BPM P-R Int : 190 ms QRS Dur : 092 ms QT Int : 414 ms P-R-T Axes : 082 116 -15 degrees QTc Int : 471 ms Normal sinus rhythm Right axis deviation Nonspecific ST abnormality Poor R wave progression, consider anterior CT vs. lead placement vs. LVH Abnormal ECG When compared with ECG of 14-JAN-2022 19:29, (unconfirmed) Sinus rhythm has replaced Atrial flutter QRS axis Shifted right T wave inversion now evident in Inferior leads Confirmed by Jesús Sprague ([id number]) on 01/16/2022 5:44:58 PM Referred By: REFERRED SELF Confirmed By:Davin Sprague
--- NOTE | 2022-01-16 18:18 | Electrocardiogram Report ---
Test Reason : Blood Pressure : / mmHG Vent. Rate : 075 BPM Atrial Rate : 300 BPM P-R Int : 000 ms QRS Dur : 096 ms QT Int : 410 ms P-R-T Axes : 083 -44 056 degrees QTc Int : 457 ms Sinus rhythm Left axis deviation Poor R wave progression, consider anterior CO vs. lead placement vs. LVH Nonspecific ST abnormality Abnormal ECG When compared with ECG of 14-JAN-2022 10:20, QRS axis Shifted left ST no longer depressed in Lateral leads Confirmed by Jesús Sprague ([id number]) on 01/16/2022 6:18:14 PM Referred By: REFERRED SELF Confirmed By:Davin Sprague
[2022-01-16] MEDS: VANCOMYCIN HCL 1,000 MG in SODIUM CHLORIDE 0.9% 250 ML IV SCH (20:27)
[2022-01-16] MEDS: TERAZOSIN HCL 1 MG CAP PO SCH (20:28)
[2022-01-16] MEDS: ACETAMINOPHEN 325 MG TAB PO PRN (20:28)
[2022-01-16] MEDS: oxyCODONE/ACETAMINOPHEN 5mg/325mg TAB PO PRN (22:37)
--- NOTE | 2022-01-16 22:37 | Hospitalist Progress Note ---
Date of Service January 16, 2022 Assessment & Plan (1) Acute metabolic encephalopathy: Plan: workup negative for infection except in right mastoid and possibly R middle ear. Uncertain if this was cause of confusion but it is likely. She is improved on antibiotics. ENT saw her and recommended this with no surgical option. Percocet restarted Cont to monitor. (2) Mastoiditis: Plan: CT head: No acute hemorrhage, mass-effect or acute ischemia. Does note large right mastoid effusion with opacification of the right ear In ER given cefepime Continuing cefepime-ENT consult with recs on chart. (3) Elevated troponin: Plan: No evidence of ACS per cardiology (4) Cardiomyopathy: (5) CAD (coronary artery disease): (6) CKD (chronic kidney disease), stage III: Plan: h/o CAD, cardiology consulted. No chest pain or EKG changes to suggest acute ischemia. Echo pending. CKD III-IV Cr: 1.6. baseline appears to be 1.6-2.0 Monitor renal functions. If no improvement consider nephrology consult Chronic heart failure with preserved ejection fraction: Hold Lasix currently and monitor I&O's and reasses tomorrow Insulin dependent diabetes mellitus II A1c 6.2 on 10/28/2021 Continue home Lantus NovoLog sliding scale per protocol Hypertension: BP elevated, likely patient not taking medications Continue amlodipine, carvedilol, hydralazine, lisinopril, terazosin, isosorbide Chronic anemia: Hgb: 10. At baseline Monitor H&H Ambulatory dysfunction: Pt sedentary at baseline PT/OT assessment Mood disorder: Continue sertraline DVT Prophylaxis Heparin SQ DO Ruiz [facility] Hospitalist Admission and Anticipated Discharge Date Admission Date: January 14, 2022 Subjective 76 yo F with acute confusion Doing well today and confusion has resolved reports pain in her right ear and right shoulder/neck area recently more pain and achiness all over--this was improved when percocet was given back to her. (wtihdrawal) denies fevers poor historian Review of Systems Review of Systems: All systems were reviewed and negative except as indicated in subjective above. Physical Exam Physical Exam: CONSTITUTIONAL: morbid obesity, vitals as above, generally well-appearing EYES: normal conjunctivae with mild crusting on medial corner of right eye, no scleral icterus, ENT: external ear and nose normal, oropharynx clear, cannot visualize earddrum because of bony growth into the treasure, no maxillary or ethmoid sinus tenderness, TTP over right mastoid. NECK: trachea midline RESPIRATORY: clear to auscultation bilaterally, no crackles, rales or wheezes, normal respiratory effort CARDIOVASCULAR: regular rate and rhythm, S1 and 2 heard without murmurs, gallops or rubs, no JVD, no peripheral edema CHEST: inspection of chest was normal GASTROINTESTINAL: normal bowel sounds, soft, nontender, ND, no guarding MUSCULOSKELETAL: strength 5/5 throughout, head is normocephalic and atraumatic, neck supple, normal palpation of chest wall without tenderness SKIN: warm and dry, no rashes NEUROLOGIC: CN 2-12 grossly intact, no sensory deficit, normal cognition, normal speech, no tremor PSYCHIATRIC: alert cooperative and oriented to person, place and time. Euthymic mood, makes good eye contact, language grossly intact, recent and remote memory grossly intact. Results & Data Results & Data ([facility]) Vital Signs (Past 12 Hours) Vital Signs Temp Pulse Pulse Resp BP Pulse Ox 01/16/22 19:51 37.2 C 57 L 18 144/62 H 99 01/16/22 16:24 37.1 C 88 19 105/56 L 92 01/16/22 16:00 63 01/16/22 11:39 36.6 C 62 20 125/70 96 Laboratory Results Short CBC 01/16/22 Range/Units 07:41 WBC 12.67 H (4.8-10.8) K/uL Hgb 8.5 L (12.0-16.0) g/dL Hct 26.0 L (37-47) % Plt Count 137 (130-400) K/uL BMP 01/16/22 06:14 Creatinine 1.62 H Medications Administered Current Inpatient Medications Acetaminophen (Acetaminophen 325 Mg Tab) 650 mg PO Q4H PRN PRN Reason: Pain or Fever Stop: 02/13/22 19:42 Last Admin: 01/16/22 20:28 Dose: 650 mg Documented by: Amlodipine Besylate (Amlodipine Besylate 5 Mg Tab) [facility] [place] [facility] [place] Stop: 02/14/22 08:59 Last Admin: 01/16/22 08:09 Dose: 10 mg Documented by: Aspirin (Aspirin 81 Mg Ectab) 81 mg PO QAM [facility] Stop: 02/14/22 08:59 Last Admin: 01/16/22 08:09 Dose: 81 mg Documented by: Carvedilol (Carvedilol 6.25 Mg Tab) 6.25 mg PO AMHS [facility] Stop: 02/13/22 20:59 Last Admin: 01/16/22 20:27 Dose: 6.25 mg Documented by: Dextrose (Dextrose 50% 50 Ml Syringe) 25 - 50 ml IV UD PRN; Protocol PRN Reason: Hypoglycemia Protocol Stop: 02/13/22 19:42 Famotidine (Famotidine 20 Mg Tab) 20 mg PO [facility] Stop: 02/14/22 08:59 Last Admin: 01/16/22 08:09 Dose: 20 mg Documented by: Fluticasone Propionate (Fluticasone Propionate Na Spr 16 Gm Btl) 2 sprays ANSELMO [facility] Stop: 02/14/22 08:59 Last Admin: 01/16/22 08:09 Dose: 2 sprays Documented by: Gabapentin (Gabapentin 300 Mg Cap) 300 mg PO TID [facility] Stop: 02/13/22 20:59 Last Admin: 01/16/22 20:28 Dose: 300 mg Documented by: Glucagon (Glucagon For Inj 1 Mg Vial) 1 mg SQ UD PRN; Protocol PRN Reason: Hypoglycemia Protocol Stop: 02/13/22 19:42 Glucose (Glucose 10 Tabs/Tube) 4 - 8 tabs PO UD PRN; Protocol PRN Reason: Hypoglycemia Protocol Stop: 02/13/22 19:42 Glucose (Glucose 40% Gel 15 Gm Tube) 15 - 30 gm PO UD PRN; Protocol PRN Reason: Hypoglycemia Protocol Stop: 02/13/22 19:42 Heparin Sodium (Porcine) (Heparin Sod 5,000 Unit/0.5 Ml Vial) 5,000 units SQ Q8 [facility] Stop: 02/13/22 21:59 Last Admin: 01/16/22 20:28 Dose: 5,000 units Documented by: Hydralazine HCl (Hydralazine Tab 50 Mg Tab) 50 mg PO TID [facility] Stop: 02/13/22 20:59 Last Admin: 01/16/22 20:28 Dose: 50 mg Documented by: Cefepime HCl 2,000 mg/ Syringe 20 mls @ 5 mls/min IV Q12H [facility]; Protocol Stop: 01/18/22 01:59 Last Admin: 01/16/22 14:26 Dose: 5 mls/min Documented by: Vancomycin HCl 1,000 mg/ (Sodium Chloride) 270 mls @ 200 mls/hr IV Q24H [facility]; Protocol Stop: 01/17/22 19:59 Last Infusion: 01/16/22 21:50 Dose: Infused Documented by: Insulin Aspart (Insulin Aspart Per Unit) 0 units SC ACHS [facility] Stop: 02/13/22 20:59 Last Admin: 01/16/22 20:29 Dose: Not Given Documented by: Insulin Glargine (Insulin Glargine Solostar 100 Units/Ml 3 Ml Pen) 20 units SC BID [facility] Stop: 02/13/22 20:59 Last Admin: 01/16/22 20:29 Dose: 20 units Documented by: Isosorbide Mononitrate (Isosorbide [place] Extended Rel 60 Mg Tabcr) 120 [facility] [place] [facility] [place] Stop: 02/14/22 08:59 Last Admin: 01/16/22 08:10 Dose: 120 mg Documented by: Lisinopril (Lisinopril 10 Mg Tab) 10 mg PO QAM [facility] Stop: 02/14/22 08:59 Last Admin: 01/16/22 08:10 Dose: 10 mg Documented by: Miscellaneous (Carbohydrates For Hypoglycemia ) 15 - 30 gm PO UD PRN PRN Reason: Hypoglycemia Protocol Stop: 02/13/22 19:42 Miscellaneous Information (Vancomycin Consult Active) 1 ea N/A UD PRN PRN Reason: Consult Stop: 02/13/22 19:42 Nitroglycerin (Nitroglycerin Sl 0.4 Mg/Tab Tab) 0.4 mg SL UD PRN PRN Reason: Chest Pain Stop: 02/13/22 19:42 Ondansetron HCl (Ondansetron Inj 2 Mg/Ml 2 Ml Vial) 4 mg IV Q6H PRN PRN Reason: Nausea Stop: 02/13/22 19:42 Last Admin: 01/15/22 08:50 Dose: 4 mg Documented by: Oxycodone/Acetaminophen (Oxycodone/Acetaminophen 5mg/325mg Tab) 1 tab PO Q8H PRN PRN Reason: Pain Stop: 01/30/22 13:21 Pantoprazole Sodium (Pantoprazole 40 Mg Tab) 40 mg PO QAM [facility] Stop: 02/14/22 08:59 Last Admin: 01/16/22 08:10 Dose: 40 mg Documented by: Polyethylene Glycol (Polyethylene (Miralax) 17 Gm Pack) 17 gm PO DAILY PRN PRN Reason: Constipation Stop: 02/13/22 19:42 Sertraline HCl (Sertraline Hcl 50 Mg Tablet) 50 mg PO QAM [facility] Stop: 02/14/22 08:59 Last Admin: 01/16/22 08:10 Dose: 50 mg Documented by: Terazosin HCl (Terazosin Hcl 1 Mg Cap) 1 mg PO HS [facility] Stop: 02/13/22 20:59 Last Admin: 01/16/22 20:28 Dose: 1 mg Documented by: Topiramate (Topiramate 25 Mg Tab) 25 mg PO BID [facility] Stop: 02/13/22 20:59 Last Admin: 01/16/22 20:28 Dose: 25 mg Documented by: (1) Mastoiditis Laterality: right Qualified Code(s): H70.91 - Unspecified mastoiditis, right ear
[2022-01-17] MEDS: CEFEPIME 2,000 MG in SYRINGE 0 ML IV SCH ×2 (02:55→13:01)
[2022-01-17] MEDS: HEPARIN SOD 5,000 UNIT/0.5 ML VIAL SQ SCH ×2 (05:17→13:01)
[2022-01-17] MEDS: GABAPENTIN 300 MG CAP PO SCH ×2 (07:28→13:01)
[2022-01-17] MEDS: amLODIPine BESYLATE 5 MG TAB PO SCH (07:28)
[2022-01-17] MEDS: TOPIRAMATE 25 MG TAB PO SCH (07:28)
[2022-01-17] MEDS: ISOSORBIDE MONO EXTENDED REL 60 MG TABCR PO SCH (07:29)
[2022-01-17] MEDS: lisinopril 10 MG TAB PO SCH (07:29)
[2022-01-17] MEDS: hydrALAZINE TAB 50 MG TAB PO SCH ×2 (07:29→13:01)
[2022-01-17] MEDS: PANTOprazole 40 MG TAB PO SCH (07:29)
[2022-01-17] MEDS: SERTRALINE HCL 50 MG TABLET PO SCH (07:29)
[2022-01-17] MEDS: FLUTICASONE PROPIONATE NA SPR 16 GM BTL NAE SCH (07:29)
[2022-01-17] MEDS: ASPIRIN 81 MG ECTAB PO SCH (07:29)
[2022-01-17] MEDS: FAMOTIDINE 20 MG TAB PO SCH (07:30)
[2022-01-17] MEDS: carvediloL 6.25 MG TAB PO SCH (07:30)
[2022-01-17] MEDS: INSULIN ASPART PER UNIT SC SCH ×3 (07:30→16:30)
[2022-01-17] MEDS: INSULIN GLARGINE SOLOSTAR 100 UNITS/ML 3 ML PEN SC SCH (07:31)
[2022-01-17] MEDS: oxyCODONE/ACETAMINOPHEN 5mg/325mg TAB PO PRN (07:41)
[2022-01-17 07:56] LABS: Hematocrit (blood only) 25.4 % (37-47); Hemoglobin 8.3 g/dL (12.0-16.0); Mean Corpuscular Hemoglobin 29.4 pg (25-34); Mean Corpuscular Hgb Conc 32.7 g/dL (32-36); Mean Corpuscular Volume 90.1 fL (80-100); Mean Platelet Volume 9.8 fL (7.4-10.4); Platelet Count 147 K/uL (130-400); RDW Coefficient of Variation 13.7 % (11.5-14.5); RDW Standard Deviation 45.2 fL (36.4-46.3); Red Blood Count 2.82 M/uL (4.2-5.4); White Blood Count 12.73 K/uL (4.8-10.8)
[2022-01-17 08:18] LABS: BUN Creatinine Ratio 24.3 (10-20); Calcium 8.4 mg/dl (8.5-10.1); Creatinine Clr Calc Pharmacy 33.8 ml/min; Est GFR (African American) 38.2 ml/min; Potassium 3.6 mmol/L (3.5-5.1)
--- NOTE | 2022-01-17 11:14 | Cardiology Progress Note ---
Date of Service January 17, 2022 Assessment & Plan (1) Acute confusion: (2) Weakness: (3) Elevated troponin: (4) CKD (chronic kidney disease), stage III: (5) Acute pain of right shoulder: (6) Acute metabolic encephalopathy: (7) CAD (coronary artery disease): (8) Mitral regurgitation: (9) Cardiomyopathy: Plan: I do not believe this patient would be a great candidate for mitral valve surgery now or in the future due to her multiple medical problems and body hab itus. For now I would treat her symptomatically and see how she does and eventually may consider surgery on her valve if she recovers well and is able to lose some weight. Admission and Anticipated Discharge Date Admission Date: January 14, 2022 Subjective The patient is sitting in a chair and alert today. Review of Systems Review of Systems: Review of Systems: See HPI for pertinent positives. All other 10 point review of systems are negative. Physical Exam Physical Exam: General: no acute distress and stated age Head: normocephalic, no masses, lesions, tenderness or abnormalities Eyes: conjunctiva are pink and non-injected, sclera clear Neck: supple, no adenopathy, no bruits, normal jugular venous pulse, no hepatojugular reflux Chest: normal shape and normal respiratory effort Lungs: clear to auscultation and percussion Cardiac Exam: - regular rate & rhythm, systolic murmur apex of the heart- normal S1, normal S2 Pulses: 2(+) throughout Abdomen: abdomen soft, non-tender, no abnormal masses and no hepatosplenomegaly Musculoskeletal: no gait disturbance, no joint inflammation, no deforming arthritis Extremities: no edema and no cyanosis Neuro: grossly normal exam Results & Data ([facility]) Vital Signs (Past 12 Hours) Vital Signs Temp Pulse Pulse Resp BP BP Pulse Ox 01/17/22 08:36 37.5 C 61 19 97/59 L 96 01/17/22 08:00 66 01/17/22 02:59 36.7 C 71 16 133/71 98 Laboratory Results Laboratory Results - last 24 hr 01/16/22 01/16/22 01/16/22 11:28 16:18 20:09 WBC RBC Hgb Hct MCV MCH MCHC RDW Std Deviation RDW Coeff of Isaebl Plt Count MPV Sodium Potassium Chloride Carbon Dioxide Anion Gap BUN Creatinine Est Cr Clr Drug Dosing Est GFR ( Amer) Est GFR (Non-Af Amer) BUN/Creatinine Ratio Glucose POC Glucose 108 H 74 127 H Calcium Nasal Screen MRSA (PCR) 01/17/22 01/17/22 01/17/22 07:05 07:05 07:28 WBC 12.73 H RBC 2.82 L Hgb 8.3 L Hct 25.4 L MCV 90.1 MCH 29.4 MCHC 32.7 RDW Std Deviation 45.2 RDW Coeff of Isabel 13.7 Plt Count 147 MPV 9.8 Sodium 142 Potassium 3.6 Chloride 115 H Carbon Dioxide 20 L Anion Gap 7 BUN 37 H Creatinine 1.52 H Est Cr Clr Drug Dosing 33.8 Est GFR ( Amer) 38.2 Est GFR (Non-Af Amer) 33.0 BUN/Creatinine Ratio 24.3 H Glucose 54 L POC Glucose 67 L* Calcium 8.4 L Nasal Screen MRSA (PCR) 01/17/22 01/17/22 07:30 10:45 WBC RBC Hgb Hct MCV MCH MCHC RDW Std Deviation RDW Coeff of Isabel Plt Count MPV Sodium Potassium Chloride Carbon Dioxide Anion Gap BUN Creatinine Est Cr Clr Drug Dosing Est GFR ( Amer) Est GFR (Non-Af Amer) BUN/Creatinine Ratio Glucose POC Glucose 72 Calcium Nasal Screen MRSA (PCR) Pending Medications Administered Current Inpatient Medications Acetaminophen (Acetaminophen 325 Mg Tab) 650 mg PO Q4H PRN PRN Reason: Pain or Fever Stop: 02/13/22 19:42 Last Admin: 01/16/22 20:28 Dose: 650 mg Documented by: Amlodipine Besylate (Amlodipine Besylate 5 Mg Tab) 10 mg PO [facility] Stop: 02/14/22 08:59 Last Admin: 01/17/22 07:28 Dose: 10 mg Documented by: Aspirin (Aspirin 81 Mg Ectab) 81 mg PO [facility] Stop: 02/14/22 08:59 Last Admin: 01/17/22 07:29 Dose: 81 mg Documented by: Carvedilol (Carvedilol 6.25 Mg Tab) 6.25 mg PO [facility] Stop: 02/13/22 20:59 Last Admin: 01/17/22 07:30 Dose: 6.25 mg Documented by: Dextrose (Dextrose 50% 50 Ml Syringe) 25 - 50 ml IV UD PRN; Protocol PRN Reason: Hypoglycemia Protocol Stop: 02/13/22 19:42 Famotidine (Famotidine 20 Mg Tab) 20 mg PO QAM [facility] Stop: 02/14/22 08:59 Last Admin: 01/17/22 07:30 Dose: 20 mg Documented by: Fluticasone Propionate (Fluticasone Propionate Na Spr 16 Gm Btl) 2 sprays ANSELMO QAM [facility] Stop: 02/14/22 08:59 Last Admin: 01/17/22 07:29 Dose: 2 sprays Documented by: Gabapentin (Gabapentin 300 Mg Cap) 300 mg PO TID [facility] Stop: 02/13/22 20:59 Last Admin: 01/17/22 07:28 Dose: 300 mg Documented by: Glucagon (Glucagon For Inj 1 Mg Vial) 1 mg SQ UD PRN; Protocol PRN Reason: Hypoglycemia Protocol Stop: 02/13/22 19:42 Glucose (Glucose 10 Tabs/Tube) 4 - 8 tabs PO UD PRN; Protocol PRN Reason: Hypoglycemia Protocol Stop: 02/13/22 19:42 Glucose (Glucose 40% Gel 15 Gm Tube) 15 - 30 gm PO UD PRN; Protocol PRN Reason: Hypoglycemia Protocol Stop: 02/13/22 19:42 Heparin Sodium (Porcine) (Heparin Sod 5,000 Unit/0.5 Ml Vial) 5,000 units SQ Q8 [facility] Stop: 02/13/22 21:59 Last Admin: 01/17/22 05:17 Dose: 5,000 units Documented by: Hydralazine HCl (Hydralazine Tab 50 Mg Tab) 50 mg PO TID [facility] Stop: 02/13/22 20:59 Last Admin: 01/17/22 07:29 Dose: 50 mg Documented by: Cefepime HCl 2,000 mg/ Syringe 20 mls @ 5 mls/min IV Q12H [facility]; Protocol Stop: 01/18/22 01:59 Last Admin: 01/17/22 02:55 Dose: 5 mls/min Documented by: Vancomycin HCl 1,000 mg/ (Sodium Chloride) 270 mls @ 200 mls/hr IV Q24H [facility]; Protocol Stop: 01/17/22 19:59 Last Infusion: 01/16/22 21:50 Dose: Infused Documented by: Insulin Aspart (Insulin Aspart Per Unit) 0 units SC ACHS [facility] Stop: 02/13/22 20:59 Last Admin: 01/17/22 07:30 Dose: Not Given Documented by: Insulin Glargine (Insulin Glargine Solostar 100 Units/Ml 3 Ml Pen) 17 units SC BID [facility] Stop: 02/16/22 20:59 Isosorbide Mononitrate (Isosorbide [place] Extended Rel 60 Mg Tabcr) 120 mg PO [facility] Stop: 02/14/22 08:59 Last Admin: 01/17/22 07:29 Dose: 120 mg Documented by: Lisinopril (Lisinopril 10 Mg Tab) [facility] [place] Stop: 02/14/22 08:59 Last Admin: 01/17/22 07:29 Dose: 10 mg Documented by: Miscellaneous (Carbohydrates For Hypoglycemia ) 15 - 30 gm PO UD PRN PRN Reason: Hypoglycemia Protocol Stop: 02/13/22 19:42 Miscellaneous Information (Vancomycin Consult Active) 1 ea N/A UD PRN PRN Reason: Consult Stop: 02/13/22 19:42 Nitroglycerin (Nitroglycerin Sl 0.4 Mg/Tab Tab) 0.4 mg SL UD PRN PRN Reason: Chest Pain Stop: 02/13/22 19:42 Ondansetron HCl (Ondansetron Inj 2 Mg/Ml 2 Ml Vial) 4 mg IV Q6H PRN PRN Reason: Nausea Stop: 02/13/22 19:42 Last Admin: 01/15/22 08:50 Dose: 4 mg Documented by: Oxycodone/Acetaminophen (Oxycodone/Acetaminophen 5mg/325mg Tab) 1 tab PO Q8H PRN PRN Reason: Pain Stop: 01/30/22 13:21 Last Admin: 01/17/22 07:41 Dose: 1 tab Documented by: Pantoprazole Sodium (Pantoprazole 40 Mg Tab) 40 mg PO [facility] Stop: 02/14/22 08:59 Last Admin: 01/17/22 07:29 Dose: 40 mg Documented by: Polyethylene Glycol (Polyethylene (Miralax) 17 Gm Pack) 17 gm PO DAILY PRN PRN Reason: Constipation Stop: 02/13/22 19:42 Sertraline HCl (Sertraline Hcl 50 Mg Tablet) 50 mg PO [facility] Stop: 02/14/22 08:59 Last Admin: 05/21/22 07:29 Dose: 50 mg Documented by: Terazosin HCl (Terazosin Hcl 1 Mg Cap) 1 mg PO HS [facility] Stop: 02/13/22 20:59 Last Admin: 01/16/22 20:28 Dose: 1 mg Documented by: Topiramate (Topiramate 25 Mg Tab) 25 mg PO BID [facility] Stop: 02/13/22 20:59 Last Admin: 01/17/22 07:28 Dose: 25 mg Documented by:
--- NOTE | 2022-01-17 17:47 | Discharge Summary ---
Date of Service January 17, 2022 Admission HPI Per Admitting Provider Patient is 76 y/o F with PMH morbid obesity, DM II, diabetic polyneuropathy, nephropathy, CKD IV, CAD, chronic diastolic HF, HTN, HLD, secondary hyperparathyroidism, bilateral lymphedema, mood disorder presented to ER via EMS for altered mental status. Unable to obtain history from patient as is currently confused. History obtained from ER staff and outpatient chart review. It is reported EMS arrived to patients home and found her weak and unable to get herself out of her chair. It is reported patients house was in disarray. Unable to obtain history from patient and sisters are unavailable at this time. Admission Exam Per Admitting Provider General: no distress, obese Head: normocephalic, atraumatic Eyes: PERRL, EOM's intact, conjunctiva non-injected, anicteric ENT: normal inspection external ears, nose, mucous membranes dry Neck: supple, trachea midline Lungs: clear, no respiratory distress, no wheezing/rhonchi/rales CV: RRR, no murmur, trace pretibial edema Abd: normal BS, soft, no apparent tenderness to palpations Ext: no cyanosis, no calf tenderness Neuro: Pt awake. oriented to self only. Answers all questions with reciting her full name. no focal deficits noted Skin: warm, dry Principal Diagnosis Otomastoiditis Discharge Exam General: Sitting comfortably in chair, not in distress, on room air HEENT: EOMI, VIDYA, MMM Chest: Clear breath sounds bilaterally, no wheezes or crackles CVS: Regular rate and rhythm, normal heart sounds, no murmur Abdomen: Soft, non tender, not distended, normal bowel sounds Neuro: Awake, alert, oriented, conversing well, non focal Extremities: No cyanosis, clubbing or edema Discharge Data Allergies Allergy/AdvReac Type Severity Reaction Status Date / Time loratadine Allergy Intermediate MOUTH Verified 01/14/22 13:42 SWELLING diphenhydramine AdvReac Intermediate GMG-SHAKING Verified 01/14/22 13:42 [From Benadryl] & SWEATING metformin AdvReac Intermediate causes Verified 01/14/22 13:42 kidney problems Sulfa (Sulfonamide AdvReac Intermediate Unknown Verified 01/14/22 13:42 Antibiotics) sulfamethoxazole AdvReac Intermediate GMG-RENAL Verified 01/14/22 13:42 COMPLICATIONS trimethoprim AdvReac Intermediate GMG-RENAL Verified 01/14/22 13:42 COMPLICATIONS [place]-CGT-MdI Reductase AdvReac Mild Gastrointestinal Verified 01/14/22 13:42 Inhibitor Upset [Rcghxnc-Dzg-Jyu Reductase Inhibitor] Consultations 01/14/22 15:08 ED Decision to Admit Stat 01/14/22 19:43 Consult Cardiology Routine 01/15/22 10:19 Consult Otolaryngology (Head and Neck) Routine Ordered Studies 01/14/22 11:25 CT head/brain wo con Stat Laboratory Results WBC 12.73 K/uL (4.8-10.8) H 01/17/22 07:05 RBC 2.82 M/uL (4.2-5.4) L 01/17/22 07:05 Hgb 8.3 g/dL (12.0-16.0) L 01/17/22 07:05 Hct 25.4 % (37-47) L 01/17/22 07:05 MCV 90.1 fL (80-100) 01/17/22 07:05 MCH 29.4 pg (25-34) 01/17/22 07:05 MCHC 32.7 g/dL (32-36) 01/17/22 07:05 RDW Std Deviation 45.2 fL (36.4-46.3) 01/17/22 07:05 RDW Coeff of Isabel 13.7 % (11.5-14.5) 01/17/22 07:05 Plt Count 147 K/uL (130-400) 01/17/22 07:05 MPV 9.8 fL (7.4-10.4) 01/17/22 07:05 Immature Gran % (Auto) 0.6 % 01/15/22 05:18 Neut % (Auto) 65.7 % 01/15/22 05:18 Lymph % (Auto) 25.7 % 01/15/22 05:18 [place] % (Auto) 7.2 % 01/15/22 05:18 Eos % (Auto) 0.7 % 01/15/22 05:18 Baso % (Auto) 0.1 % 01/15/22 05:18 Neut # (Auto) 10.29 K/uL (1.4-6.5) H 01/15/22 05:18 Lymph # (Auto) 4.02 K/uL (1.2-3.4) H 01/15/22 05:18 [place] # (Auto) 1.12 K/uL (0.11-0.59) H 01/15/22 05:18 Eos # (Auto) 0.11 K/uL (0-0.5) 01/15/22 05:18 Baso # (Auto) 0.02 K/uL (0-0.2) 01/15/22 05:18 Immature Gran # (Auto) 0.10 K/uL (0.00-0.02) H 01/15/22 05:18 PT 11.3 Seconds (9.0-12.0) 01/14/22 12:56 INR 1.1 (0.9-1.1) 01/14/22 12:56 APTT 24.8 Seconds (21.0-31.0) 01/15/22 05:18 PTT Ratio 0.9 01/15/22 05:18 VBG pH 7.43 (7.36-7.41) H 01/14/22 17:18 VBG pCO2 32 mmHg (38-50) L 01/14/22 17:18 VBG pO2 44 mmHg 01/14/22 17:18 VBG HCO3 21 mmol/L 01/14/22 17:18 VBG O2 Saturation 79.2 % 01/14/22 17:18 VBG Base Excess -3.0 mEq/L 01/14/22 17:18 Barometric Pressure 729.4 mm/Hg 01/14/22 17:18 Sodium 142 mmol/L (136-145) 01/17/22 07:05 Potassium 3.6 mmol/L (3.5-5.1) 01/17/22 07:05 Chloride 115 mmol/L (98-107) H 01/17/22 07:05 Carbon Dioxide 20 mmol/L (21-32) L 01/17/22 07:05 Anion Gap 7 (3-11) 01/17/22 07:05 BUN 37 mg/dl (6-23) H 01/17/22 07:05 Creatinine 1.52 mg/dl (0.6-1.2) H 01/17/22 07:05 Est Cr Clr Drug Dosing 33.8 ml/min 01/17/22 07:05 Est GFR ( Amer) 38.2 ml/min 01/17/22 07:05 Est GFR (Non-Af Amer) 33.0 ml/min 01/17/22 07:05 BUN/Creatinine Ratio 24.3 (10-20) H 01/17/22 07:05 Glucose 54 mg/dl (70-99(Fasting)) L 01/17/22 07:05 POC Glucose 80 mg/dl (70-99) 01/17/22 16:26 Lactate 1.3 mmol/L (0.4-2.0) 01/14/22 12:56 Calcium 8.4 mg/dl (8.5-10.1) L 01/17/22 07:05 Magnesium 2.1 mg/dl (1.7-2.4) 01/14/22 12:56 Total Bilirubin 0.8 mg/dl (0.2-1.0) 01/14/22 12:56 AST 24 U/L (13-39) 01/14/22 12:56 ALT 14 U/L (7-52) 01/14/22 12:56 Alkaline Phosphatase 69 U/L (34-104) 01/14/22 12:56 Total Creatine Kinase 243 U/L (26-192) H 01/15/22 05:18 Troponin I High Sens 7155.6 pg/ml (0-14) H* 01/15/22 05:18 Total Protein 7.7 gm/dl (6.0-8.3) 01/14/22 12:56 Albumin 3.5 gm/dl (3.4-5.0) 01/14/22 12:56 Globulin 4.2 gm/dl (2.5-4.0) H 01/14/22 12:56 Albumin/Globulin Ratio 0.8 (0.9-2) L 01/14/22 12:56 Triglycerides 133 mg/dl (0-150) 01/15/22 05:18 Cholesterol 141 mg/dl (0-200) 01/15/22 05:18 LDL Cholesterol, Calc 90 mg/dl 01/15/22 05:18 VLDL Cholesterol, Calc 27 mg/dl (0-30) 01/15/22 05:18 HDL Cholesterol 24 mg/dl 01/15/22 05:18 Cholesterol/HDL Ratio 5.9 (0-5) H 01/15/22 05:18 Procalcitonin < 0.05 ng/ml (0-0.5) 01/14/22 12:56 Urine Color Yellow 01/14/22 12:20 Urine Appearance Clear (Clear) 01/14/22 12:20 Urine pH >= 9.0 (4.5-7.5) H 01/14/22 12:20 Ur Specific [place] 1.013 (1.000-1.030) 01/14/22 12:20 Urine Protein 2+ (Negative) H 01/14/22 12:20 Urine Glucose (UA) Negative (Negative) 01/14/22 12:20 Urine Ketones Negative (Negative) 01/14/22 12:20 Urine Blood 2+ (Negative) H 01/14/22 12:20 Urine Nitrite Negative (Negative) 01/14/22 12:20 Urine Bilirubin Negative (Negative) 01/14/22 12:20 Urine Urobilinogen Negative (Negative) 01/14/22 12:20 Ur Leukocyte Esterase Negative (Negative) 01/14/22 12:20 Urine WBC (Auto) 1-5 /hpf (0-5) 01/14/22 12:20 Urine RBC (Auto) 10-30 /hpf (0-4) H 01/14/22 12:20 U Hyaline Cast (Auto) 1-5 /lpf (0-5) 01/14/22 12:20 U Epithel Cells (Auto) 20-30 /lpf (0-5) H 01/14/22 12:20 Urine Bacteria (Auto) Negative (Negative) 01/14/22 12:20 Nasal Screen MRSA (PCR) Negative (Negative) 01/17/22 10:45 Urine Opiates Screen Neg (Neg) 01/14/22 06:23 Ur Methadone, Qual Neg (Neg) 01/14/22 06:23 Urine Barbiturates Neg (Neg) 01/14/22 06:23 Ur Phencyclidine (PCP) Neg (Neg) 01/14/22 06:23 U Amphetamin/Meth Scrn Neg (Neg) 01/14/22 06:23 MDMA (Ecstasy) Screen Neg (Neg) 01/14/22 06:23 U Benzodiazepines Scrn Neg (Neg) 01/14/22 06:23 Ur Cocaine Metabolite Neg (Neg) 01/14/22 06:23 U Marijuana (THC) Screen Neg (Neg) 01/14/22 06:23 SARS-CoV-2 (PCR) NEGATIVE (Negative) 01/14/22 11:35 Influenza Type A (PCR) Negative (Neg) 01/14/22 11:35 Influenza Type B (PCR) Negative (Neg) 01/14/22 11:35 RSV (RT-PCR) Negative (Neg) 01/14/22 11:35 Impressions Chest X-Ray 01/14/22 11:02 XR chest 1V portable HISTORY: 76 years-old Female SEPSIS acute sepsis COMPARISON: Chest radiograph 11/14/2021 TECHNIQUE: Portable AP view of the chest FINDINGS: Cardiac silhouette is enlarged. Atherosclerosis of the aorta. Dense calcified plaque of the mitral annulus. No pneumothorax or large pleural effusion. Chronic interstitial coarsening. Degenerative changes of the shoulders and spine with chronic left proximal humeral deformity. IMPRESSION: Cardiomegaly with chronic interstitial coarsening. ACT 112: Negative or not required by law. The above report was generated using voice recognition software. It may contain grammatical, syntax or spelling errors. Electronically signed by: Dawson Gorman M.D. 01/14/2022 11:[address] 01/14/22 11:25 CT SCAN OF THE BRAIN WITHOUT IV CONTRAST CLINICAL HISTORY: Change in mental status. COMPARISON STUDY: CT of the brain dated 08/08/2021. TECHNIQUE: Unenhanced axial CT scan of the brain is performed from the vertex to the skull base. A dose lowering technique was utilized adhering to the principles of ALARA. CT DOSE: 679.75 mGycm FINDINGS: Brain parenchyma: There is age-related involutional change noting mild subcortical and periventricular microangiopathic disease. There is no hemorrhage, mass effect, or evidence of acute territorial ischemia by CT criteria. Palomares-white matter differentiation is preserved. No extra-axial fluid collection is seen. Ventricles, sulci, cisterns: Prominent secondary to involutional change. Intracranial vasculature: There is atherosclerotic calcification of the cavernous carotid and vertebral arteries. Calvarium: Unremarkable. Sinuses and mastoids: The visualized paranasal sinuses are clear. There is a large right mastoid effusion, with opacification of the right middle ear and external auditory canal. The left mastoid air cells are well pneumatized. Orbits: The bony orbits are grossly intact. There are bilateral ocular lens implants. IMPRESSION: 1 There is no hemorrhage, mass effect, or evidence of acute territorial ischemia by CT criteria. 2. Large right mastoid effusion with opacification of the right middle ear. This represent a change from the 08/08/2021 examination. Correlate clinically for evidence of otomastoiditis. ACT 112: Negative or not required by law. Electronically signed by: Scott Tello M.D. 01/14/2022 2:09 PM Hospital Course (1) Acute metabolic encephalopathy: (2) Mastoiditis: (3) Elevated troponin: (4) Cardiomyopathy: (5) CAD (coronary artery disease): (6) CKD (chronic kidney disease), stage III: Acute metabolic encephalopathy- Resolved on antibiotics, likely related to infection. Workup negative for infection except in right mastoid and possibly right middle ear. Blood and urine clx negative. She is awake, alert oriented x4. She was aware of what's going on and the plan. She was anxious to get discharged. She denies any home needs. Spoke to - no home needs. Otomastoiditis - CT head: No acute hemorrhage, mass-effect or acute ischemia. Does note large right mastoid effusion with opacification of the right ear - Per ENT, not a candidate for tube placement given her exostosis and recommended po ABx at discharge - S/p Cefepime. Discussed with ENT Dr De Los Santos today- okay to discharge on augmentin for 10 more days. MRSA nare negative x2. Elevated trop- Seen by cardio- recommendations noted. Echo and tele reviewed. Denies any chest pain or shortness of breath. OP f/u with cardio. Cardiomyopathy/ Chronic HFpEF: continue home po lasix Valvular heart disease (severe MR)- echo reviewed. Seen by cardio- who states she would be a great candidate for mitral valve surgery now or in the future due to her multiple medical problems and body habitus. Cardio recommends treating her symptomatically and see how she does and eventually may consider surgery on her valve if she recovers well and is able to lose some weight. CKD 3b- Cr at baseline of 1.6 Insulin dependent diabetes mellitus II- denies any hypoglycemic episodes at home. Continue home lantus humalog. A1c 6.2 on 10/28/2021 Hypertension: continue home meds Mood disorder: Continue sertraline Total Time Total Time Spent Total Time Spent (In Minutes): 40 Discharge Plan Discharge Items Patient Disposition: Home - Self-Care Reason For Visit: AMS Discharge Diagnosis: Mastoiditis, otitis media Condition on Discharge: Fair Activity: Resume your previous activity Non-emergency contact: Primary Care Provider Call non-emergency contact if: you have any medication questions Follow-up/Referrals: Leonor Hicks MD, PhD [Physician] - (Date & Time 01/19/2022 2:00 PM Provider [facility] Eric Bullock DO [Outside Practitioners] - (Date & Time 01/21/2022 2:00 PM Provider Kiki Kim DO Department Family [facility] ) Diet: Carb Consistent or DM2, Heart Healthy and Low Sodium (2gm) Addtl Attending Provider Instructions: Continue the antibiotic augmentin twice daily starting tonight for the next 10 days. You can take probiotic while on antibiotic. If you have fever, chills, increasing ear pain or discharge, please come to the emergency immediately Follow up with the ENT in 1-2 weeks Follow up with the heart doctors Follow up with your family doctor Pending Studies at Discharge: No Stand-Alone Forms: My [facility], Smoking Cessation Medications and DC Order Prescriptions: New amoxicillin-pot clavulanate 875-125 mg tablet 1 tab PO Q12H Qty: 20 RF: 0 Continued isosorbide mononitrate 120 mg tablet extended release 24 hr 120 mg PO QAM RF: 0 polyethylene glycol 3350 [Miralax] 17 gram/dose Powder 17 g PO QAM PRN (Reason: Constipation) RF: 0 topiramate 25 mg tablet 25 mg PO AMPM RF: 0 terazosin 1 mg capsule 1 mg PO HS RF: 0 pantoprazole 40 mg tablet,delayed release (DR/EC) 40 mg PO QAM RF: 0 gabapentin 300 mg capsule 300 mg PO TID RF: 0 sertraline 50 mg tablet 50 mg PO QAM RF: 0 Lantus Solostar U-100 Insulin 100 unit/mL (3 mL) insulin pen 20 unit subcut BID RF: 0 baclofen 10 mg tablet 5 mg PO BID PRN (Reason: Pain) RF: 0 diclofenac sodium 1 % gel 1 ea TOPICAL BID PRN (Reason: Pain) RF: 0 nystatin 100,000 unit/gram Powder 1 applic TOPICAL TID PRN (Reason: Skin Irritation) RF: 0 lisinopril 10 mg Tablet 10 mg PO QAM Qty: 30 RF: 0 ondansetron HCl 4 mg tablet 4 mg PO Q6 PRN (Reason: Nausea) RF: 0 menthol-zinc oxide [Calmoseptine] 0.44-20.6 % Ointment 1 applic TOPICAL DIRECTED RF: 0 aspirin 81 mg Tablet,Delayed Release (Dr/Ec) 81 mg PO QAM RF: 0 carvedilol 6.25 mg Tablet 6.25 mg PO AMHS Qty: 60 RF: 0 hydralazine 50 mg tablet 50 mg PO TID RF: 0 famotidine 20 mg tablet 20 mg PO QAM RF: 0 amlodipine 10 mg tablet 10 mg PO QAM RF: 0 fluticasone propionate 50 mcg/actuation spray,suspension 2 spray INTRANASAL QAM RF: 0 insulin lispro [Humalog KwikPen Insulin] 100 unit/mL insulin pen 10 unit SUBCUT TIDM RF: 0 nitroglycerin [Nitrostat] 0.4 mg Tablet, Sublingual 0.4 mg sublingual UD PRN (Reason: Chest Pain) RF: 0 furosemide 40 mg tablet 40 mg PO DIRECTED RF: 0 oxycodone-acetaminophen 5-325 mg tablet 1 tab PO Q8H PRN (Reason: Pain) RF: 0 Discharge Orders: Discharge Order (Routine); Ordered 01/17/22 Ordered By: Kenney Siu Admission Data Admit Date/Time: 01/14/22 16:12 Attending Provider: Kenney Siu Admit Provider: Snow Koehler I. Primary Care Provider: PCP,NO Other Providers: Snow Koehler I. ; Elgin Esqueda ; Lali Paulson ; [facility] Other Interventions: Discharge Summary Assessment (RN) Last Done: 01/17/22 17:31
[2022-01-17] MEDS ORDERED: INSULIN GLARGINE SOLOSTAR 100 UNITS/ML 3 ML PEN SC SCH (21:00)
== END 2022-01-17 19:14 | disposition home or self-care (01) | DRG 152 ==
LOC: ED 10:07 → SUATTDRO 16:12 → 1E 16:12 → 2S 01-15 15:56

== ENCOUNTER 2022-01-30 03:28 | Inpatient (IN) ==
--- NOTE | 2022-01-30 04:22 | Emergency Department Note ---
Impression & Plan Acute hyperkalemia, Acute hyponatremia Admit to the [facility] ED Provider Note NAME: DONNA CERNA AGE: 76 SEX: F ARRIVES VIA: Ambulance INFORMANT: Patient ED PROVIDER(S): Shannan Carr DO CHIEF COMPLAINT: Abnormal lab value PLAN: Disposition: Admit to the [facility] Condition: Good MEDICAL DECISION MAKING: This is a 76-year-old female patient who had a follow-up appointment with her cpr ambulance driver today where laboratory studies were drawn. She was contacted overnight tonight stating that her potassium level was high. She was directed to the emergency department for evaluation. The patient denies any symptoms. Laboratory studies were redrawn here and revealed hyponatremia, hyperkalemia, hypocalcemia, and acute kidney injury. Patient was given a bolus of IV normal saline solution, sodium bicarbonate, and calcium chloride. I discussed the case with the [facility] Hospitalist and they will evaluate for further management. Triage Nursing notes reviewed and agree with them. Prior medical records reviewed Vital Signs: reviewed and remarkable for hypertension Differential diagnosis: Lab error; hyperkalemia; medication administration errors ER treatment provided: IV normal saline bolus IV calcium chloride IV sodium bicarb Diagnostics interpreted by me: ECG: Normal sinus rhythm at a rate of [address] segment elevation or peaked T waves; there is no ectopy Cardiac Monitoring: Normal sinus rhythm at 64; Laboratory studies: See below HPI: 76/F arrives for evaluation of abnormal lab values. Patient had laboratory studies drawn earlier today that were ordered by the cpr ambulance driver. She was noted to have an elevated potassium level. She came here at the direct ion of the cpr ambulance driver. The patient had been discharged from the hospital not too long ago and her medications had been changed. She is not convinced that she is taking her medications correctly at the direction of the home health nurses ROS: See above HPI for pertinent positives & negatives. A total of 10 systems reviewed and were otherwise negative. PAST MEDICAL HISTORY:See Below PAST SURGICAL HISTORY:See Below FAMILY HISTORY:See Below SOCIAL HISTORY:See Below HOME MEDICATIONS:See list ALLERGIES:See list VITALS:See Below PHYSICAL EXAMINATION: HEENT: Head - normocephalic and atraumatic. Pupils are equal, round, and reactive to light. Extraocular eye muscles are intact, and sclera are anicteric. Nose - moist nasal mucosa without discharge. Mouth - moist buccal mucosa. Oropharynx is nonerythematous and there is no tonsillar exudate or edema noted. Neck: Supple; no JVD or cervical lymphadenopathy Heart: Heart sounds are distant secondary to body habitus; regular rate and rhythm. There is a normal S1 and S2 with no murmurs, clicks, or gallops appreciated. Lungs: Clear to auscultation bilaterally with no wheezes, rales, or rhonchi. Abdomen: Soft, completely nontender, nondistended, with good bowel sounds. There are no palpable pulsatile masses or hepatosplenomegaly. There is no guarding, rigidity, or rebound noted. Extremities: Moderate edema to both lower extremities there are easily palpable peripheral pulses. Skin: warm and dry with good turgor and no rashes. ED COURSE: Times/Reassessments: 0400: The patient was evaluated in room C3. A complete history and physical was performed. An IV lock was initiated and labs were drawn as above. I reviewed the results of the laboratory studies with the patient. She was given a 500 cc bolus of saline. She was given an amp of IV bicarb and an amp of IV calcium chloride. I discussed the case with the [facility] Hospitalist. Shannan Carr DO Past Med/Surg History Medical History Acute UTI Adjustment disorder CAD (coronary artery disease) CHF (congestive heart failure) CKD (chronic kidney disease) CKD (chronic kidney disease), stage III Encephalopathy acute GERD (gastroesophageal reflux disease) HLD (hyperlipidemia) Hypertension Hyponatremia IBS (irritable bowel syndrome) Insulin dependent diabetes mellitus Mood disorder Morbid obesity Paroxysmal A-fib Pressure ulcer Surgical History H/O hernia repair H/O: H/O: hysterectomy S/P cholecystectomy Family History Brother Prostate cancer Father Diabetes Social History Smoking Status: Never smoker Second Hand Exposure: No; Hx Alcohol Use: No Hx Substance Use: No Preferred Language: Monegasque Communication Ability: Effective Visual Impairment: No Limitations Die Designer Apprentice Required: No Beliefs That Will Affect Care: None marital status: / Current Living Situation: Family Current Living Situation Comment: Patient reports she lives with her sisters and neice. Feels Safe at Home: Yes Assistive Devices: Cane and Walker Allergies Allergies Allergy/AdvReac Type Severity Reaction Status Date / Time loratadine Allergy Intermediate MOUTH Verified 01/30/22 06:26 SWELLING diphenhydramine AdvReac Intermediate GMG-SHAKING Verified 01/30/22 06:26 [From Benadryl] & SWEATING metformin AdvReac Intermediate causes Verified 01/30/22 06:26 kidney problems Sulfa (Sulfonamide AdvReac Intermediate Unknown Verified 01/30/22 06:26 Antibiotics) sulfamethoxazole AdvReac Intermediate GMG-RENAL Verified 01/30/22 06:26 COMPLICATIONS trimethoprim AdvReac Intermediate GMG-RENAL Verified 01/30/22 06:26 COMPLICATIONS Wsbsxmt-QDP-LfH Reductase AdvReac Mild Gastrointestinal Verified 01/30/22 06:26 Inhibitor Upset [Tnzdbts-Xbv-Ozr Reductase Inhibitor] Home Meds Home Medications Medication Instructions Recorded Confirmed gabapentin 300 mg capsule 300 mg PO TID 02/14/19 01/30/22 insulin glargine 100 unit/mL (3 20 unit SUBCUT BID 02/14/19 01/30/22 mL) subcutaneous pen (Lantus Solostar U-100 Insulin) pantoprazole 40 mg tablet,delayed 40 mg PO QAM 02/14/19 01/30/22 release sertraline 50 mg tablet 50 mg PO QAM 02/14/19 01/30/22 terazosin 1 mg capsule 1 mg PO HS 02/14/19 01/30/22 topiramate 25 mg tablet 25 mg PO AMPM 02/14/19 01/30/22 isosorbide mononitrate 120 mg 120 mg PO QAM 04/23/19 01/30/22 tablet,extended release 24 hr polyethylene glycol 3350 17 17 g PO QAM PRN 04/23/19 01/30/22 gram/dose oral powder (Miralax) baclofen 10 mg tablet 5 mg PO BID PRN 08/16/20 01/30/22 diclofenac sodium 1 % topical gel 1 ea TOPICAL BID PRN 08/16/20 01/30/22 nystatin 100,000 unit/gram topical 1 applic TOPICAL TID PRN 10/27/20 01/30/22 powder aspirin 81 mg tablet,delayed 81 mg PO QAM 02/13/21 01/30/22 release amlodipine 10 mg tablet 10 mg PO QAM 05/02/21 01/30/22 famotidine 20 mg tablet 20 mg PO QAM 05/02/21 01/30/22 fluticasone propionate 50 2 spray INTRANASAL QAM 05/02/21 01/30/22 mcg/actuation nasal spray,suspension hydralazine 50 mg tablet 50 mg PO TID 05/02/21 01/30/22 insulin lispro 100 unit/mL 10 unit SUBCUT TIDM 05/02/21 01/30/22 subcutaneous pen (Humalog KwikPen (U-100) Insulin) nitroglycerin 0.4 mg sublingual 0.4 mg SUBLINGUAL UD PRN 05/02/21 01/30/22 tablet (Nitrostat) furosemide 40 mg tablet 40 mg PO DIRECTED 11/14/21 01/30/22 oxycodone-acetaminophen 5 mg-325 1 tab PO Q8H PRN 11/14/21 01/30/22 mg tablet ondansetron HCl 4 mg tablet 4 mg PO Q6 PRN 01/14/22 01/30/22 Lactobacillus acidoph-L.bulgaricus 1 tab PO TIDM 01/30/22 01/30/22 1 million cell chewable tablet (Lactinex) carvedilol 6.25 mg tablet 6.25 mg PO BID 01/30/22 01/30/22 cholecalciferol (vitamin D3) 25 25 mcg PO DAILY 01/30/22 01/30/22 mcg (1,000 unit) tablet clonazepam 1 mg tablet 1 mg PO HS 01/30/22 01/30/22 fenofibrate nanocrystallized 145 145 mg PO DAILY 01/30/22 01/30/22 mg tablet (Tricor) sennosides 8.6 mg tablet (Senokot) 8.6 mg PO DAILY 01/30/22 01/30/22 silver sulfadiazine 1 % topical 1 applic TOPICAL DAILY 01/30/22 01/30/22 cream zinc oxide 1 applic TOPICAL DIRECTED PRN 01/30/22 01/30/22 Previous Rx's Medication Instructions Recorded lisinopril 10 mg tablet 10 mg PO QAM #30 tab 12/08/20 amoxicillin 875 mg-potassium 1 tab PO Q12H #20 tab 01/17/22 clavulanate 125 mg tablet Results & Data (ED) Vital Signs Vital Signs - 24 hr 01/30/22 03:40 01/30/22 04:30 01/30/22 05:30 Temperature 36.8 C Temperature Source Oral Pulse Rate 64 58 L 61 Pulse Rhythm Regular Pulse Strength Normal Respiratory Rate 21 16 15 Respiratory Effort / Characteristics Non-Labored Spontaneous Respiratory Depth Normal Respiratory Pattern Regular Blood Pressure 154/60 H 139/46 L 136/42 L Blood Pressure Mean 91 77 73 Blood Pressure Position Sitting Pulse Oximetry 99 97 Oxygen Delivery Method Room Air Room Air Sepsis Recent Fever Within 48 Hours No Sepsis New/Unexplained Change in Mental Status N/A Sepsis Action Taken by Nursing No Action Required 01/30/22 06:00 01/30/22 06:09 01/30/22 06:30 Temperature Temperature Source Pulse Rate 65 69 68 Pulse Rhythm Pulse Strength Respiratory Rate 18 14 15 Respiratory Effort / Characteristics Respiratory Depth Respiratory Pattern Blood Pressure 143/46 H 166/48 H Blood Pressure Mean 78 87 Blood Pressure Position Pulse Oximetry Oxygen Delivery Method Sepsis Recent Fever Within 48 Hours Sepsis New/Unexplained Change in Mental Status Sepsis Action Taken by Nursing 01/30/22 07:00 Temperature Temperature Source Pulse Rate 70 Pulse Rhythm Pulse Strength Respiratory Rate 14 Respiratory Effort / Characteristics Respiratory Depth Respiratory Pattern Blood Pressure 165/56 H Blood Pressure Mean 92 Blood Pressure Position Pulse Oximetry Oxygen Delivery Method Sepsis Recent Fever Within 48 Hours Sepsis New/Unexplained Change in Mental Status Sepsis Action Taken by Nursing Laboratory Data Result diagrams: 01/30/22 03:55 Lab Results 01/30/22 01/30/22 01/30/22 Range/Units 03:55 05:40 05:42 Sodium 128 L (136-145) mmol/L Potassium 5.3 H (3.5-5.1) mmol/L Chloride 99 (98-107) mmol/L Carbon Dioxide 21 (21-32) mmol/L Anion Gap 8 (3-11) BUN 120 H (6-23) mg/dl Creatinine 2.60 H (0.6-1.2) mg/dl Est Cr Clr Drug Dosing 20.2 ml/min Est GFR ( Amer) 20.0 ml/min Est GFR (Non-Af Amer) 17.2 ml/min BUN/Creatinine Ratio 46.2 H (10-20) Glucose 169 H (70-99(Fasting)) mg/dl Calcium 8.2 L (8.5-10.1) mg/dl Magnesium 2.4 (1.7-2.4) mg/dl Total Bilirubin 0.2 (0.2-1.0) mg/dl Direct Bilirubin 0.1 (0-0.2) mg/dl AST 13 (13-39) U/L ALT 10 (7-52) U/L Alkaline Phosphatase 54 (34-104) U/L Total Protein 6.3 (6.0-8.3) gm/dl Albumin 3.1 L (3.4-5.0) gm/dl TSH (0.300-4.500) uIu/ml SARS-CoV-2, RNA, NAAT NEGATIVE (NEGATIVE) 01/30/22 Range/Units 05:42 Sodium (136-145) mmol/L Potassium (3.5-5.1) mmol/L Chloride (98-107) mmol/L Carbon Dioxide (21-32) mmol/L Anion Gap (3-11) BUN (6-23) mg/dl Creatinine (0.6-1.2) mg/dl Est Cr Clr Drug Dosing ml/min Est GFR ( Amer) ml/min Est GFR (Non-Af Amer) ml/min BUN/Creatinine Ratio (10-20) Glucose (70-99(Fasting)) mg/dl Calcium (8.5-10.1) mg/dl Magnesium (1.7-2.4) mg/dl Total Bilirubin (0.2-1.0) mg/dl Direct Bilirubin (0-0.2) mg/dl AST (13-39) U/L ALT (7-52) U/L Alkaline Phosphatase (34-104) U/L Total Protein (6.0-8.3) gm/dl Albumin (3.4-5.0) gm/dl TSH 0.471 (0.300-4.500) uIu/ml SARS-CoV-2, RNA, NAAT (NEGATIVE) Administered Medications Discontinued Medications Sodium Chloride (Nss) 500 mls @ 999 mls/hr IV .Q31M ONE Stop: 01/30/22 05:43 Last Infusion: 01/30/22 06:40 Dose: 0 mls/hr Documented by: [id number] Admin: 01/30/22 05:39 Dose: 999 mls/hr Documented by: [id number] Calcium Chloride 1,000 mg/ (Dextrose) 60 mls @ 240 mls/hr IV NOW STA Stop: 01/30/22 05:33 Last Admin: 01/30/22 06:15 Dose: 240 mls/hr Documented by: [id number] Sodium Bicarbonate (Sodium Bicarb 8.4% Inj 50 Meq/50 Ml Syr) 50 meq IV NOW STA Stop: 01/30/22 05:20 Last Admin: 01/30/22 06:16 Dose: 50 meq Documented by: [id number] Discharge Plan Visit Data Chief Complaint: Abnormal Labs/Diagnostic Testing Stated Complaint: ABNORMAL LABS ED Provider: Shannan Carr Discharge Problem: Acute hyperkalemia, Acute hyponatremia Forms Stand Alone Forms: [facility] Prescriptions Prescriptions: No Action isosorbide mononitrate 120 mg tablet extended release 24 hr 120 mg PO QAM RF: 0 polyethylene glycol 3350 [Miralax] 17 gram/dose Powder 17 g PO QAM PRN (Reason: Constipation) RF: 0 topiramate 25 mg tablet 25 mg PO AMPM RF: 0 terazosin 1 mg capsule 1 mg PO HS RF: 0 pantoprazole 40 mg tablet,delayed release (DR/EC) 40 mg PO QAM RF: 0 gabapentin 300 mg capsule 300 mg PO TID RF: 0 sertraline 50 mg tablet 50 mg PO QAM RF: 0 insulin glargine [Lantus Solostar U-100 Insulin] 100 unit/mL (3 mL) insulin pen 20 unit subcut BID RF: 0 baclofen 10 mg tablet 5 mg PO BID PRN (Reason: Pain) RF: 0 diclofenac sodium 1 % gel 1 ea TOPICAL BID PRN (Reason: Pain) RF: 0 nystatin 100,000 unit/gram Powder 1 applic TOPICAL TID PRN (Reason: Skin Irritation) RF: 0 lisinopril 10 mg Tablet 10 mg PO QAM Qty: 30 RF: 0 ondansetron HCl 4 mg tablet 4 mg PO Q6 PRN (Reason: Nausea) RF: 0 amoxicillin-pot clavulanate 875-125 mg tablet 1 tab PO Q12H Qty: 20 RF: 0 silver sulfadiazine 1 % cream 1 applic TOPICAL DAILY RF: 0 clonazepam 1 mg tablet 1 mg PO HS RF: 0 Lactinex 1 million cell Tablet,Chewable 1 tab PO TIDM RF: 0 carvedilol 6.25 mg tablet 6.25 mg PO BID RF: 0 sennosides [Senokot] 8.6 mg Tablet 8.6 mg PO DAILY RF: 0 zinc oxide Ointment 1 applic TOPICAL DIRECTED PRN (Reason: Dry Skin) RF: 0 fenofibrate nanocrystallized [Tricor] 145 mg Tablet 145 mg PO DAILY RF: 0 cholecalciferol (vitamin D3) 25 mcg (1,000 unit) Tablet 25 mcg PO DAILY RF: 0 aspirin 81 mg Tablet,Delayed Release (Dr/Ec) 81 mg PO QAM RF: 0 hydralazine 50 mg tablet 50 mg PO TID RF: 0 famotidine 20 mg tablet 20 mg PO QAM RF: 0 amlodipine 10 mg tablet 10 mg PO QAM RF: 0 fluticasone propionate 50 mcg/actuation spray,suspension 2 spray INTRANASAL QAM RF: 0 insulin lispro [Humalog KwikPen Insulin] 100 unit/mL insulin pen 10 unit SUBCUT TIDM RF: 0 nitroglycerin [Nitrostat] 0.4 mg Tablet, Sublingual 0.4 mg sublingual UD PRN (Reason: Chest Pain) RF: 0 furosemide 40 mg tablet 40 mg PO DIRECTED RF: 0 oxycodone-acetaminophen 5-325 mg tablet 1 tab PO Q8H PRN (Reason: Pain) RF: 0 Referrals Referrals: PCP,NO [Physician] -
[2022-01-30 04:52] LABS: BUN Creatinine Ratio 46.2 (10-20); Calcium 8.2 mg/dl (8.5-10.1); Creatinine Clr Calc Pharmacy 20.2 ml/min; Est GFR (Non-African American) 17.2 ml/min; Potassium 5.3 mmol/L (3.5-5.1)
[2022-01-30] MEDS ORDERED: SODIUM CHLORIDE 0.9% 500 ML IV ONE (05:13)
[2022-01-30] MEDS ORDERED: SODIUM BICARB 8.4% INJ 50 MEQ/50 ML SYR IV STA (05:19)
[2022-01-30] MEDS ORDERED: CALCIUM CHLORIDE 10% 1,000 MG in DEXTROSE 5% 50 ML IV STA (05:19)
[2022-01-30 06:29] LABS: Albumin Level 3.1 gm/dl (3.4-5.0); Bilirubin Direct 0.1 mg/dl (0-0.2); Bilirubin,Total 0.2 mg/dl (0.2-1.0); Magnesium 2.4 mg/dl (1.7-2.4); Total Protein 6.3 gm/dl (6.0-8.3)
--- NOTE | 2022-01-30 06:33 | History & Physical Report ---
Date of Service January 30, 2022 Assessment & Plan (1) Acute hyponatremia: Plan: Hyponatremia, hyperkalemia ARF on CKD Likely secondary to home diuretic Rx Antibiotic Rx contributory to kidney dysfunction ? Medication mixup from possible functional disability chronic systolic heart failure, equivocal volume status hx CAD valvular heart disease (mild AR/MS, severe MR), patient deemed poor candidate for surgical intervention given multiple comorbidities as per outpatient cardiology documentation hypertension, slightly elevated chronic anemia, hemoglobin at baseline DM2 insulin requiring, well-controlled as of recent hemoglobin A1c 6.2 last October 2021 Medical telemetry Recheck renal function after initial fluid bolus given at the ER Appropriate to hold lisinopril given hyperkalemia Baseline UA Nephrology consult ARF on CKD Basal insulin adjusted for kidney dysfunction, ISS BG goal 1 10-1 40, carb count coverage PT OT eval DVT prophylaxis. Heparin subcu Full code Text document was generated using Kobo recognition software. It may contain grammatical or spelling errors. Kindly contact undersigned for clarification of any documentation item in question. History of Present Illness Chief Complaint: Abnormal blood work Primary Care Provider: Eric Bullock, History obtained from patient and records. Medical history significant for chronic systolic heart failure (EF of 40-45% TTE 2021), CAD as per records, valvular heart disease (mild AR/MS, severe MR), hypertension, DM2 insulin-requiring, CRI (baseline creatinine 1.7-2), chronic anemia (baseline hemoglobin of 9-10), recurrent UTIs, anxiety/mood disorder, chronic pain, bilateral lymphedema Last confinement 2 weeks ago for metabolic encephalopathy attributed to mastoiditis patient discharged on antibiotic Rx. Some documentation of confusion regarding medications from outpatient family caseworker notes. Patient seen at inspector final assembly electrical's office on follow-up visit yesterday. Leg edema complaints as per note. Patient taking extra diuretic Rx as per recommendation for perceived increased leg swelling. Patient denies chest pain, SOB. No OTC NSAID intake. Finishing antibiotic Rx for ear infection. Outpatient labs requested by Nephrology provider yesterday noted to have abnormal results. Serum potassium 6.6, serum sodium 128 serum creatinine 2.8 Patient directed to ER for further evaluation by outpatient provider. NSS, bicarb, and calcium chloride administered at the ER for hyperkalemia MEDICAL HISTORY: As above. SURGERIES: Hernia repair, , hysterectomy, cholecystectomy. FAMILY HISTORY: Heart disease. Sully's chorea PERSONAL AND SOCIAL HISTORY: Nonsmoker. No chronic intake of alcoholic beverages. Lives with sisters. Allergies Allergy/AdvReac Type Severity Reaction Status Date / Time loratadine Allergy Intermediate MOUTH Verified 01/30/22 06:26 SWELLING diphenhydramine AdvReac Intermediate GMG-SHAKING Verified 01/30/22 06:26 [From Benadryl] & SWEATING metformin AdvReac Intermediate causes Verified 01/30/22 06:26 kidney problems Sulfa (Sulfonamide AdvReac Intermediate Unknown Verified 01/30/22 06:26 Antibiotics) sulfamethoxazole AdvReac Intermediate GMG-RENAL Verified 01/30/22 06:26 COMPLICATIONS trimethoprim AdvReac Intermediate GMG-RENAL Verified 01/30/22 06:26 COMPLICATIONS Kxdbvct-MJK-LlH Reductase AdvReac Mild Gastrointestinal Verified 01/30/22 06:26 Inhibitor Upset [Qlasihm-Mqi-Rzg Reductase Inhibitor] Home Medications Medication Instructions Recorded Confirmed Type gabapentin 300 mg capsule 300 mg PO TID 02/14/19 01/30/22 History insulin glargine 100 unit/mL (3 20 unit SUBCUT BID 02/14/19 01/30/22 History mL) subcutaneous pen (Lantus Solostar U-100 Insulin) pantoprazole 40 mg tablet,delayed 40 mg PO QAM 02/14/19 01/30/22 History release sertraline 50 mg tablet 50 mg PO QAM 02/14/19 01/30/22 History terazosin 1 mg capsule 1 mg PO HS 02/14/19 01/30/22 History topiramate 25 mg tablet 25 mg PO AMPM 02/14/19 01/30/22 History isosorbide mononitrate 120 mg 120 mg PO QAM 04/23/19 01/30/22 History tablet,extended release 24 hr polyethylene glycol 3350 17 17 g PO QAM PRN 04/23/19 01/30/22 History gram/dose oral powder (Miralax) baclofen 10 mg tablet 5 mg PO BID PRN 08/16/20 01/30/22 History diclofenac sodium 1 % topical gel 1 ea TOPICAL BID PRN 08/16/20 01/30/22 History nystatin 100,000 unit/gram topical 1 applic TOPICAL TID PRN 10/27/20 01/30/22 History powder lisinopril 10 mg tablet 10 mg PO QAM #30 tab 12/08/20 01/30/22 Rx aspirin 81 mg tablet,delayed 81 mg PO QAM 02/13/21 01/30/22 History release amlodipine 10 mg tablet 10 mg PO QAM 05/02/21 01/30/22 History famotidine 20 mg tablet 20 mg PO QAM 05/02/21 01/30/22 History fluticasone propionate 50 2 spray INTRANASAL QAM 05/02/21 01/30/22 History mcg/actuation nasal spray,suspension hydralazine 50 mg tablet 50 mg PO TID 05/02/21 01/30/22 History insulin lispro 100 unit/mL 10 unit SUBCUT TIDM 05/02/21 01/30/22 History subcutaneous pen (Humalog KwikPen (U-100) Insulin) nitroglycerin 0.4 mg sublingual 0.4 mg SUBLINGUAL UD PRN 05/02/21 01/30/22 History tablet (Nitrostat) furosemide 40 mg tablet 40 mg PO DIRECTED 11/14/21 01/30/22 History oxycodone-acetaminophen 5 mg-325 1 tab PO Q8H PRN 11/14/21 01/30/22 History mg tablet ondansetron HCl 4 mg tablet 4 mg PO Q6 PRN 01/14/22 01/30/22 History amoxicillin 875 mg-potassium 1 tab PO Q12H #20 tab 01/17/22 01/30/22 Rx clavulanate 125 mg tablet Lactobacillus acidoph-L.bulgaricus 1 tab PO TIDM 01/30/22 01/30/22 History 1 million cell chewable tablet (Lactinex) carvedilol 6.25 mg tablet 6.25 mg PO BID 01/30/22 01/30/22 History cholecalciferol (vitamin D3) 25 25 mcg PO DAILY 01/30/22 01/30/22 History mcg (1,000 unit) tablet clonazepam 1 mg tablet 1 mg PO HS 01/30/22 01/30/22 History fenofibrate nanocrystallized 145 145 mg PO DAILY 01/30/22 01/30/22 History mg tablet (Tricor) sennosides 8.6 mg tablet (Senokot) 8.6 mg PO DAILY 01/30/22 01/30/22 History silver sulfadiazine 1 % topical 1 applic TOPICAL DAILY 01/30/22 01/30/22 History cream zinc oxide 1 applic TOPICAL DIRECTED PRN 01/30/22 01/30/22 History Past Med/Surg History Medical History Acute UTI Adjustment disorder CAD (coronary artery disease) CHF (congestive heart failure) CKD (chronic kidney disease) CKD (chronic kidney disease), stage III Encephalopathy acute GERD (gastroesophageal reflux disease) HLD (hyperlipidemia) Hypertension Hyponatremia IBS (irritable bowel syndrome) Insulin dependent diabetes mellitus Mood disorder Morbid obesity Paroxysmal A-fib Pressure ulcer Surgical History H/O hernia repair H/O: H/O: hysterectomy S/P cholecystectomy Family History Brother Prostate cancer Father Diabetes Social History Smoking Status: Never smoker Second Hand Exposure: No; Hx Alcohol Use: No Hx Substance Use: No Preferred Language: Latvian Communication Ability: Effective Visual Impairment: No Limitations Coke Burner Required: No Beliefs That Will Affect Care: None marital status: / Current Living Situation: Family Current Living Situation Comment: Patient reports she lives with her sisters and neice. Feels Safe at Home: Yes Assistive Devices: Cane and Walker Review of Systems Review of Systems: As per HPI, all other systems reviewed and negative Physical Exam Physical Exam: GENERAL: Slightly anxious, morbidly obese , no respiratory distress SKIN: Pallor , warm HEENT: Bespectacled, pale palpebral conjunctivae, no ptosis, dry buccal mucosa; NECK : Supple, short neck, no tenderness CHEST : Decreased breath sounds, no tenderness HEART : Bradycardic , systolic murmur over left sternal border ABDOMEN: distention, nontender EXTREMITIES : Bilateral LE swelling, no LE tenderness, no other conspicuous deformities noted NEUROLOGIC : Coherent, no facial asymmetry, gait and stance not assessed Results & Data Results & Data (MN) Vital Signs (Past 12 Hours) Vital Signs Temp Pulse Resp BP Pulse Ox 01/30/22 04:30 58 L 16 139/46 L 97 01/30/22 03:40 36.8 C 64 21 154/60 H 99 Laboratory Results Laboratory Results Sodium 128 mmol/L (136-145) L 01/30/22 03:55 Potassium 5.3 mmol/L (3.5-5.1) H 01/30/22 03:55 Chloride 99 mmol/L (98-107) 01/30/22 03:55 Carbon Dioxide 21 mmol/L (21-32) 01/30/22 03:55 Anion Gap 8 (3-11) 01/30/22 03:55 BUN 120 mg/dl (6-23) H 01/30/22 03:55 Creatinine 2.60 mg/dl (0.6-1.2) H 01/30/22 03:55 Est Cr Clr Drug Dosing 20.2 ml/min 01/30/22 03:55 Est GFR ( Amer) 20.0 ml/min 01/30/22 03:55 Est GFR (Non-Af Amer) 17.2 ml/min 01/30/22 03:55 BUN/Creatinine Ratio 46.2 (10-20) H 01/30/22 03:55 Glucose 169 mg/dl (70-99(Fasting)) H 01/30/22 03:55 Calcium 8.2 mg/dl (8.5-10.1) L 01/30/22 03:55 Magnesium 2.4 mg/dl (1.7-2.4) 01/30/22 05:42 Total Bilirubin 0.2 mg/dl (0.2-1.0) 01/30/22 05:42 Direct Bilirubin 0.1 mg/dl (0-0.2) 01/30/22 05:42 AST 13 U/L (13-39) 01/30/22 05:42 ALT 10 U/L (7-52) 01/30/22 05:42 Alkaline Phosphatase 54 U/L (34-104) 01/30/22 05:42 Total Protein 6.3 gm/dl (6.0-8.3) 01/30/22 05:42 Albumin 3.1 gm/dl (3.4-5.0) L 01/30/22 05:42 Diagnostic Findings Chest x-ray as per my interpretation chronic interstitial congestion EKG as per my interpretation : Rate 60, NSR, LAD, LAFB, T wave abnormalities inferior leads, low voltage
[2022-01-30 07:41] LABS: Appearance Urine Clear (Clear); Bilirubin Urine Negative (Negative); Blood Urine Negative (Negative); Color Urine Yellow; Glucose Urine UA Negative (Negative); Ketones Urine Negative (Negative); Leukocyte Esterase Urine Negative (Negative); Nitrite Urine Negative (Negative); Protein Urine Negative (Negative); Specific Gravity Urine 1.007 (1.000-1.030); Urobilinogen Urine Negative (Negative); pH Urine 5.5 (4.5-7.5)
--- NOTE | 2022-01-30 08:01 | XRay Report ---
XR chest 1V portable HISTORY: 76 years-old Female hyponatremia COMPARISON: 01/14/2022 TECHNIQUE: Portable AP view of the chest FINDINGS: The cardiac silhouette is enlarged. Atherosclerosis of the aorta. Calcification of the mitral annulus . No pneumothorax, pleural effusion or lobar airspace consolidation. Chronic interstitial coarsening. Degenerative changes of the shoulders and spine. Chronic proximal left humeral fracture deformity. IMPRESSION: Chronic findings as above without acute process. ACT 112: Negative or not required by law. The above report was generated using voice recognition software. It may contain grammatical, syntax o r spelling errors. Electronically signed by: Dawson Gorman M.D. 01/30/2022 8:00 AM
[2022-01-30 08:27] LABS: Basophils # (auto) 0.01 K/uL (0-0.2); Basophils % (auto) 0.1 %; Eosinophils # (auto) 0.35 K/uL (0-0.5); Eosinophils % (auto) 4.3 %; Hematocrit (blood only) 24.8 % (37-47); Hemoglobin 8.1 g/dL (12.0-16.0); Immature Granulocytes # (auto) 0.02 K/uL (0.00-0.02); Immature Granulocytes % (auto) 0.2 %; Lymphocytes # (auto) 2.81 K/uL (1.2-3.4); Lymphocytes % (auto) 34.3 %; Mean Corpuscular Hemoglobin 29.2 pg (25-34); Mean Corpuscular Hgb Conc 32.7 g/dL (32-36); Mean Corpuscular Volume 89.5 fL (80-100); Mean Platelet Volume 9.9 fL (7.4-10.4); Monocytes # (auto) 0.57 K/uL (0.11-0.59); Neutrophils # (auto) 4.44 K/uL (1.4-6.5); Neutrophils % (auto) 54.1 %; Platelet Count 231 K/uL (130-400); RDW Coefficient of Variation 14.4 % (11.5-14.5); RDW Standard Deviation 47.1 fL (36.4-46.3); Red Blood Count 2.77 M/uL (4.2-5.4)
[2022-01-30 08:56] LABS: BUN Creatinine Ratio 48.3 (10-20); Est GFR (African American) 22.2 ml/min; Est GFR (Non-African American) 19.2 ml/min; Potassium 5.7 mmol/L (3.5-5.1)
[2022-01-30] MEDS ORDERED: BACLOFEN 10 MG TAB PO PRN (10:18)
[2022-01-30] MEDS ORDERED: GLUCOSE 10 TABS/TUBE PO PRN (10:18)
[2022-01-30] MEDS ORDERED: ACETAMINOPHEN 325 MG TAB PO PRN (10:18)
[2022-01-30] MEDS ORDERED: GLUCAGON FOR INJ 1 MG VIAL SQ PRN (10:18)
[2022-01-30] MEDS ORDERED: GLUCOSE 40% GEL 15 GM TUBE PO PRN (10:18)
[2022-01-30] MEDS ORDERED: DICLOFENAC SOD 1% GEL 100 GM TUBE EXT PRN (10:18)
[2022-01-30] MEDS ORDERED: DEXTROSE 50% 50 ML SYRINGE IV PRN (10:18)
[2022-01-30] MEDS ORDERED: NITROGLYCERIN SL 0.4 MG/TAB TAB SL PRN (10:18)
[2022-01-30] MEDS ORDERED: CARBOHYDRATES FOR HYPOGLYCEMIA PO PRN (10:18)
[2022-01-30] MEDS ORDERED: PHARMACY GLYCEMIC MGMT CONSULT PRN (11:14)
[2022-01-30] MEDS ORDERED: INSULIN GLARGINE SOLOSTAR 100 UNITS/ML 3 ML PEN SC ONE (11:23)
--- NOTE | 2022-01-30 11:36 | Pharmacy Report ---
Pharmacy Glycemic Short Note 2 - Date of Service January 30, 2022 - Glycemic Short BSG Results (Last 24 hours): 01/30/22 01/30/22 01/30/22 03:55 08:14 10:48 Glucose 169 H 201 H POC Glucose 196 H OUTPATIENT ANTIDIABETIC REGIMEN: * Lantus 20 units SC BID * Humalog 10 units SC TIDM * HbA1c outdated - re-ordered for 01/31/22 ASSESSMENT: * 76 yo F admitted to [facility] on 01/30 for hyponatremia * Previous two hospitalizations in the last 6 months reviewed - patient has some hypoglycemic events and inpatient doses of Lantus likely require reduction as compared to home regimen. Current regimen may need to be adjusted down further depending on trend in BSG's * Will initiate weight-based moderate stress Novolog PLAN FOR INPATIENT GLYCEMIC CONTROL: * Basal insulin * Lantus 15 units SQ x1 now, then 10-20 units SC BID, depending on BSG * Bolus insulin * NovoLog per scale ACHS or Q6hrs while NPO * Goal Range: Low 110 mg/dL - High 140 mg/dL * Correction Factor: 20 mg/dL/unit * Nutritional / Prandial insulin per carb ratio of 1 unit per 7 grams CHO consumed
[2022-01-30] MEDS: amLODIPine BESYLATE 5 MG TAB PO SCH (11:40)
[2022-01-30] MEDS: FAMOTIDINE 20 MG TAB PO SCH (11:40)
[2022-01-30] MEDS: ASPIRIN 81 MG ECTAB PO SCH (11:40)
[2022-01-30] MEDS: carvediloL 6.25 MG TAB PO SCH ×2 (11:41→20:37)
[2022-01-30] MEDS: SENNA 8.6 MG TAB PO SCH (11:43)
[2022-01-30] MEDS: INSULIN ASPART PER UNIT SC SCH ×4 (11:44→21:05)
[2022-01-30] MEDS: GABAPENTIN 100 MG CAP PO SCH ×3 (11:53→20:39)
[2022-01-30] MEDS: FLUTICASONE PROPIONATE NA SPR 16 GM BTL SCH (11:53)
[2022-01-30] MEDS: TOPIRAMATE 25 MG TAB PO SCH ×2 (11:53→20:43)
[2022-01-30] MEDS: PANTOprazole 40 MG TAB PO SCH (11:53)
[2022-01-30] MEDS: LACTOBACILLUS ACIDOPHILUS 1 GM PACK PO SCH ×2 (11:54→16:47)
[2022-01-30] MEDS: FUROSEMIDE INJ 20 MG/2 ML VIAL IV SCH ×2 (12:56→20:38)
[2022-01-30] MEDS: HEPARIN SOD 5,000 UNIT/0.5 ML VIAL SQ SCH ×2 (12:56→20:43)
[2022-01-30] MEDS: SODIUM CHLORIDE 0.9% 1000ML 1,000 ML IV SCH (12:56)
--- NOTE | 2022-01-30 15:26 | Consultation Report ---
NEPHROLOGY CONSULTATION NOTE DATE OF CONSULTATION: 01/30/2022. REASON FOR CONSULTATION: Hyponatremia and hyperkalemia. HISTORY OF PRESENT ILLNESS: The patient is a 76-year-old female who was sent over from [facility] yesterday because of abnormal labs showing a potassium of 6.6 and sodium was 128 and elevated se rum creatinine of 2.8. The patient has a history of chronic systolic heart failure with an EF of 40% and she does take Lasix alternate dose of 40 and 20. She is also on lisinopril 10 mg. Denies takin g any NSAIDs. It does not appear she was on any fluid restriction and was drinking quite a bit, appe tite for solid food is somewhat low. Denies having any diarrhea, chest pain, shortness of breath, or thopnea, PND or really any symptoms at this time. Since being admitted, she has received some saline . Serum sodium has gone up to 130, potassium is still elevated at 5.7. Creatinine is trending down, it is 2.38 now. It is worth noting that when she was in the hospital just on 01/17/2022 she had crea tinine of 1.5, and a completely normal sodium of 142 and a potassium of 3.6. The patient is anxious to know when she can go home. PAST MEDICAL AND PAST SURGICAL HISTORY: Includes chronic systolic heart failure with an EF of 40% to 45%, coronary artery disease, valvular heart disease with mild AR, MS and severe MR; hypertension, t ype 2 diabetes requiring insulin, chronic kidney disease, baseline creatinine of 1.72; chronic anemia , baseline hemoglobin around 9; recurrent UTI, anxiety/mood disorder, chronic pain, bilateral lymphed radha. Hernia repair, , hysterectomy, cholecystectomy. FAMILY HISTORY: Negative for renal disease or dialysis. Positive for heart disease and Sania's chorea. PERSONAL AND SOCIAL HISTORY: Nonsmoker, no alcohol. Lives with sisters. ALLERGIES: LIST REVIEWED IN DETAIL AND IS PER THE RECONCILIATION LIST. MEDICATIONS: Home medication was also reviewed in full detail and is as per the H and P and the rios nciliation list. REVIEW OF SYSTEMS: Twelve systems reviewed and is otherwise completely negative. In fact, she has n o symptoms and was admitted purely for abnormal labs. PHYSICAL EXAMINATION: GENERAL: Morbidly obese female who is not in any respiratory distress. She is awake, alert, oriente d x3, able to give me a detailed account of her medical problem. VITAL SIGNS: Blood pressure 191/71, pulse rate 70, respiratory rate 18, temperature 36.8, 98% on tracey m air. CHEST: Bilateral clear to auscultation. CARDIOVASCULAR: S1 and S2, regular. ABDOMEN: Soft, nontender, obese. EXTREMITIES: Show trace edema, but this is more lymphedema type than a true fluid overload. LABORATORY TEST: Chest x-ray shows chronic findings without acute process. Hemoglobin 8.1, creatini ne is 2.38. BUN is 115. Sodium 130, potassium 5.7. Serum osmolarity 322. Urine osmolality 226. U rine sodium 42. Urine dipstick shows bland urine sediment. ASSESSMENT AND PLAN: A 76-year-old female admitted with abnormal labs showing acute hyperkalemia wit h a potassium of 6.6, hyponatremia and also acute renal failure with very elevated BUN and creatinine , especially BUN. Hyponatremia, urine osmolality is somewhat inappropriate, but urine osmolality is not that high at 22 0. On exam, she appears slightly volume overloaded, although it is hard to accurately assess her flu id status given the morbid obesity and her chronic lymphedema. Her BUN is quite elevated at 120, whi ch goes more in favor of prerenal state. The other possibility is also ongoing GI bleed, especially given her hemoglobin has dropped to 8.1. Potassium is still high at 5.7. At this point, her fluid a nd electrolyte status is quite tricky. I would like to give her Lasix 20 mg IV x2 every 12 hours, bu t also give some normal saline at 75 mL/hour. This is mainly to tackle the complicated situation of hyponatremia with hyperkalemia and what appears to be prerenal acute renal failure with disproportion ately high BUN. It is also worth noting that serum osmolality was not low, in fact it is high. Cont inue to do labs every 12 hours. Thank you very much for the consult. Job ID: [id number]
[2022-01-30 15:57] LABS: BUN Creatinine Ratio 49.5 (10-20); Calcium 8.6 mg/dl (8.5-10.1); Creatinine Clr Calc Pharmacy 24.5 ml/min; Est GFR (African American) 25.6 ml/min; Potassium 5.3 mmol/L (3.5-5.1)
--- NOTE | 2022-01-30 17:33 | Hospitalist Progress Note ---
Date of Service January 30, 2022 Assessment & Plan (1) Acute hyponatremia: Plan: Acute kidney injury on CKD III Hyponatremia Mild volume overload Hyperkalemia Hyponatremia Cr:2.6>>2.1 Potassium 5.3 Sodium:128>135 Low potassium diet IV Lasix, fluids as per nephrology Appreciate nephrology input Monitor electrolytes, renal function Lisinopril held Chronic systolic heart failure CAD Valvular heart disease Mild AR/MS, severe MR Patient was stopped. Poor candidate for surgical intervention given multiple comorbidities Monitor volume status closely Hypertension Continue amlodipine, carvedilol Also on terazosin, isosorbide Lisinopril held due to MAGGIE, hyperkalemia Chronic anemia No obvious source of bleeding Hb stable DM II HbA1C:6.29 October 2021 Continue insulin Monitor BGs DVT Px: Heparin SQ Code Status Full code Admission and Anticipated Discharge Date Admission Date: January 30, 2022 Subjective Patient is seen and examined at bedside States having chronic back, shoulder pain which she attributes to arthritis Denies any chest pain, shortness of breath, dizziness, nausea, abdominal pain Offers no other complaints Review of Systems Review of Systems: All systems reviewed & are unremarkable except as noted in Subjective Physical Exam Physical Exam: Physical Exam: Vitals signs as noted above General Appearance:Morbidly Obese, No apparent distress Head: normocephalic, Atraumatic Eyes: normal inspection, EOMI Neck: supple, Trachea midline Respiratory/Chest: Normal breath sounds, CTA, No accessory muscle use Cardiovascular: S1, S2, + murmur Abdomen/GI:Soft, Non tender, Bowel sounds present Extremities/Musculoskeletal:normal inspection, +Lymphedema, B/L LE edema Neurologic/Psych:AAOX3, grossly no focal neurological deficits Skin: normal color, warm Results & Data Results & Data ([facility]) Vital Signs (Past 12 Hours) Vital Signs Temp Pulse Pulse Resp BP BP Pulse Ox 01/30/22 14:39 36.8 C 58 L 18 178/70 H 97 01/30/22 13:00 166/53 H 01/30/22 10:19 36.8 C 70 18 191/71 H 98 01/30/22 07:00 70 14 165/56 H 01/30/22 06:30 68 15 166/48 H 01/30/22 06:09 69 14 143/46 H 01/30/22 06:00 65 18 01/30/22 05:30 61 15 136/42 L Laboratory Results Short CBC 01/30/22 Range/Units 08:14 WBC 8.20 (4.8-10.8) K/uL Hgb 8.1 L (12.0-16.0) g/dL Hct 24.8 L (37-47) % Plt Count 231 (130-400) K/uL BMP 01/30/22 01/30/22 01/30/22 03:55 08:14 11:57 Sodium 128 L 130 L Cancelled Potassium 5.3 H 5.7 H Chloride 99 101 Carbon Dioxide 21 23 BUN 120 H 115 H Creatinine 2.60 H 2.38 H Glucose 169 H 201 H Calcium 8.2 L 9.0 01/30/22 01/30/22 12:36 15:11 Sodium 134 L 135 L Potassium 5.3 H Chloride 105 Carbon Dioxide 24 BUN 105 H Creatinine 2.12 H Glucose 112 H Calcium 8.6 Liver Function 01/30/22 Range/Units 05:42 Total Bilirubin 0.2 (0.2-1.0) mg/dl Direct Bilirubin 0.1 (0-0.2) mg/dl AST 13 (13-39) U/L ALT 10 (7-52) U/L Alkaline Phosphatase 54 (34-104) U/L Albumin 3.1 L (3.4-5.0) gm/dl Urine 01/30/22 Range/Units 07:21 Urine Color Yellow Urine Appearance Clear (Clear) Urine pH 5.5 (4.5-7.5) Ur Specific [place] 1.007 (1.000-1.030) Urine Protein Negative (Negative) Urine Glucose (UA) Negative (Negative)
[2022-01-30] MEDS: TERAZOSIN HCL 1 MG CAP PO SCH (20:42)
[2022-01-30] MEDS: oxyCODONE HCL IR 5 MG TAB (IMMEDIATE RELEASE) PO PRN (21:00)
[2022-01-30] MEDS: INSULIN GLARGINE SOLOSTAR 100 UNITS/ML 3 ML PEN SC SCH (21:05)
[2022-01-31] MEDS: SODIUM CHLORIDE 0.9% 1000ML 1,000 ML IV SCH ×2 (01:30→17:54)
[2022-01-31] MEDS: HEPARIN SOD 5,000 UNIT/0.5 ML VIAL SQ SCH ×3 (06:20→21:04)
[2022-01-31 07:27] LABS: Basophils % (auto) 0.1 %; Eosinophils % (auto) 4.5 %; Hemoglobin 7.8 g/dL (12.0-16.0); Immature Granulocytes % (auto) 0.1 %; Lymphocytes % (auto) 37.8 %; Mean Corpuscular Hemoglobin 29.1 pg (25-34); Mean Corpuscular Hgb Conc 32.5 g/dL (32-36); Mean Corpuscular Volume 89.6 fL (80-100); Mean Platelet Volume 9.9 fL (7.4-10.4); Monocytes % (auto) 5.7 %; Neutrophils % (auto) 51.8 %; Platelet Count 253 K/uL (130-400); RDW Coefficient of Variation 14.6 % (11.5-14.5); RDW Standard Deviation 47.9 fL (36.4-46.3); Red Blood Count 2.68 M/uL (4.2-5.4); White Blood Count 7.61 K/uL (4.8-10.8)
[2022-01-31 07:28] LABS: Basophils # (auto) 0.01 K/uL (0-0.2); Eosinophils # (auto) 0.34 K/uL (0-0.5); Immature Granulocytes # (auto) 0.01 K/uL (0.00-0.02); Lymphocytes # (auto) 2.88 K/uL (1.2-3.4); Monocytes # (auto) 0.43 K/uL (0.11-0.59); Neutrophils # (auto) 3.94 K/uL (1.4-6.5)
[2022-01-31 08:18] LABS: RBC Morphology Unremarkable
[2022-01-31 08:21] LABS: Calcium 8.5 mg/dl (8.5-10.1); Potassium 5.3 mmol/L (3.5-5.1)
[2022-01-31 08:27] LABS: BUN Creatinine Ratio 47.8 (10-20); Creatinine Clr Calc Pharmacy 25.5 ml/min; Est GFR (African American) 27.2 ml/min; Est GFR (Non-African American) 23.5 ml/min
[2022-01-31] MEDS: INSULIN ASPART PER UNIT SC SCH ×4 (10:05→21:01)
[2022-01-31 10:10] LABS: Estimated Average Glucose 146 mg/dl; Hemoglobin A1C 6.7 % (4.5-5.6)
[2022-01-31] MEDS: LACTOBACILLUS ACIDOPHILUS 1 GM PACK PO SCH ×3 (10:10→17:28)
[2022-01-31] MEDS: GABAPENTIN 100 MG CAP PO SCH ×3 (10:11→21:01)
[2022-01-31] MEDS: ASPIRIN 81 MG ECTAB PO SCH (10:11)
[2022-01-31] MEDS: FUROSEMIDE INJ 20 MG/2 ML VIAL IV SCH (10:11)
[2022-01-31] MEDS: FLUTICASONE PROPIONATE NA SPR 16 GM BTL SCH (10:11)
[2022-01-31] MEDS: INSULIN GLARGINE SOLOSTAR 100 UNITS/ML 3 ML PEN SC SCH ×2 (10:11→21:02)
[2022-01-31] MEDS: amLODIPine BESYLATE 5 MG TAB PO SCH (10:11)
[2022-01-31] MEDS: FAMOTIDINE 20 MG TAB PO SCH (10:11)
[2022-01-31] MEDS: carvediloL 6.25 MG TAB PO SCH ×2 (10:11→21:00)
[2022-01-31] MEDS: ISOSORBIDE MONO EXTENDED REL 60 MG TABCR PO SCH (10:12)
[2022-01-31] MEDS: SENNA 8.6 MG TAB PO SCH (10:12)
[2022-01-31] MEDS: TOPIRAMATE 25 MG TAB PO SCH ×2 (10:12→21:03)
[2022-01-31] MEDS: PANTOprazole 40 MG TAB PO SCH (10:12)
--- NOTE | 2022-01-31 14:10 | Nephrology Progress Note ---
Date of Service January 31, 2022 Assessment & Plan Admission and Anticipated Discharge Date Admission Date: January 30, 2022 Subjective S---no new issues PHYSICAL EXAMINATION: GENERAL: Morbidly obese female who is not in any respiratory distress. She is awake, alert, oriented x3, able to give me a detailed account of her medical problem. CHEST: Bilateral clear to auscultation. CARDIOVASCULAR: S1 and S2, regular. ABDOMEN: Soft, nontender, obese. EXTREMITIES: Show trace edema, but this is more lymphedema type than a true fluid overload. LABORATORY TEST: Labs improving. hgb is less than 8 now. ASSESSMENT AND PLAN: A 76-year-old female admitted with abnormal labs showing acute hyperkalemia with a potassium of 6.6, hyponatremia and also acute renal failure with very elevated BUN and creatinine, especially BUN. Hyponatremia Hyperkalemia Andres----All labs seems better with current management. hard to assess fluid status given morbid obesity and lymphedema. rec: 1 D/c Iv lasix 2 Change iv fluid to bicarb mainly to lower the K. 3 Labs daily. 4 Hgb is low--check iron screen and also r/o GI bleed with heme occult stool Results & Data ([facility]) Vital Signs (Past 12 Hours) Vital Signs Temp Pulse Pulse Resp BP Pulse Ox 01/31/22 11:44 36.6 C 56 L 20 113/69 97 01/31/22 08:25 36.6 C 68 20 128/91 94 01/31/22 07:39 61 01/31/22 03:33 36.6 C 60 18 124/64 96
[2022-01-31] MEDS ORDERED: STAT IV STA (14:11)
--- NOTE | 2022-01-31 14:34 | Electrocardiogram Report ---
Test Reason : Blood Pressure : / mmHG Vent. Rate : 061 BPM Atrial Rate : 061 BPM P-R Int : 196 ms QRS Dur : 090 ms QT Int : 422 ms P-R-T Axes : 080 -66 002 degrees QTc Int : 424 ms Normal sinus rhythm Left axis deviation Low voltage QRS Cannot rule out Anterior infarct , age undetermined Abnormal ECG When compared with ECG of 15-JAN-2022 05:24, Questionable change in QRS axis Confirmed by Brett Patel ([id number]) on 01/31/2022 2:34:48 PM Referred By: REFERRED SELF Confirmed By:Brett Patel
[2022-01-31] MEDS: oxyCODONE HCL IR 5 MG TAB (IMMEDIATE RELEASE) PO PRN ×2 (14:45→21:08)
[2022-01-31] MEDS ORDERED: IRON SUCROSE 200 MG in 0.9 % SODIUM CHLORIDE 100 ML IV ONE (15:00)
[2022-01-31] MEDS: SODIUM BICARBONATE 8.4% 150 MEQ in DEXTROSE 5% 1,000 ML IV SCH (15:26)
--- NOTE | 2022-01-31 16:44 | Hospitalist Progress Note ---
Date of Service January 31, 2022 Assessment & Plan (1) Acute hyponatremia: Plan: Acute kidney injury on CKD III Hyponatremia Mild volume overload Hyperkalemia Hyponatremia Cr:2.6>>2.0 Potassium 5.3 Sodium:128>135>139 Low potassium diet IV Lasix, fluids as per nephrology Appreciate nephrology input Monitor electrolytes, renal function Lisinopril held IV fluids changed to bicarbonate Monitor renal function Chronic systolic heart failure CAD Valvular heart disease Mild AR/MS, severe MR Patient was stopped. Poor candidate for surgical intervention given multiple comorbidities Monitor volume status closely Hypertension Continue amlodipine, carvedilol Also on terazosin, isosorbide Lisinopril held due to MAGGIE, hyperkalemia Chronic anemia No obvious source of bleeding Hb stable Anemia work-up pending Hb drop partly dilutional due to IV fluids DM II HbA1C:6.29 October 2021 Continue insulin Monitor BGs DVT Px: Heparin SQ Code Status Full code Admission and Anticipated Discharge Date Admission Date: January 30, 2022 Subjective Patient is seen and examined at bedside No new complaints States having shoulder pain Denies any bleeding issues Also denies any chest pain, shortness of breath, dizziness, nausea, abdominal pain Review of Systems Review of Systems: All systems reviewed & are unremarkable except as noted in Subjective Physical Exam Physical Exam: Physical Exam: Vitals signs as noted above General Appearance:Morbidly Obese, No apparent distress Head: normocephalic, Atraumatic Eyes: normal inspection, EOMI Neck: supple, Trachea midline Respiratory/Chest: Normal breath sounds, CTA, No accessory muscle use Cardiovascular: S1, S2, + murmur Abdomen/GI:Soft, Non tender, Bowel sounds present Extremities/Musculoskeletal:normal inspection, +Lymphedema, B/L LE edema Neurologic/Psych:AAOX3, grossly no focal neurological deficits Skin: normal color, warm Results & Data Results & Data ([facility]) Vital Signs (Past 12 Hours) Vital Signs Temp Pulse Pulse Resp BP Pulse Ox 01/31/22 15:46 36.7 C 57 L 20 137/54 L 98 01/31/22 11:44 36.6 C 56 L 20 113/69 97 01/31/22 08:25 36.6 C 68 20 128/91 94 01/31/22 07:39 61 Laboratory Results Short CBC 01/31/22 Range/Units 07:11 WBC 7.61 (4.8-10.8) K/uL Hgb 7.8 L (12.0-16.0) g/dL Hct 24.0 L (37-47) % Plt Count 253 (130-400) K/uL BMP 01/30/22 01/31/22 19:30 07:11 Sodium 136 139 Potassium 5.3 H Chloride 107 Carbon Dioxide 25 BUN 96 H Creatinine 2.01 H Glucose 102 H Calcium 8.5
[2022-01-31] MEDS: TERAZOSIN HCL 1 MG CAP PO SCH (21:03)
[2022-02-01] MEDS: HEPARIN SOD 5,000 UNIT/0.5 ML VIAL SQ SCH ×3 (05:18→21:22)
[2022-02-01 06:24] LABS: Hematocrit (blood only) 22.8 % (37-47); Hemoglobin 7.5 g/dL (12.0-16.0)
[2022-02-01 07:07] LABS: BUN Creatinine Ratio 47.8 (10-20); Calcium 8.3 mg/dl (8.5-10.1); Creatinine Clr Calc Pharmacy 32.6 ml/min; Est GFR (African American) 36.7 ml/min; Est GFR (Non-African American) 31.7 ml/min; Potassium 4.7 mmol/L (3.5-5.1)
[2022-02-01] MEDS: SODIUM BICARBONATE 8.4% 150 MEQ in DEXTROSE 5% 1,000 ML IV SCH ×2 (07:10→22:48)
[2022-02-01 07:11] LABS: Folate (Folic Acid) 15.42 ng/ml (>5.38)
[2022-02-01] MEDS: LACTOBACILLUS ACIDOPHILUS 1 GM PACK PO SCH ×3 (08:27→18:39)
[2022-02-01] MEDS: INSULIN ASPART PER UNIT SC SCH ×4 (08:28→21:27)
[2022-02-01] MEDS: GABAPENTIN 100 MG CAP PO SCH ×3 (08:29→21:20)
[2022-02-01] MEDS: SENNA 8.6 MG TAB PO SCH (08:30)
[2022-02-01] MEDS: FAMOTIDINE 20 MG TAB PO SCH (08:30)
[2022-02-01] MEDS: ISOSORBIDE MONO EXTENDED REL 60 MG TABCR PO SCH (08:30)
[2022-02-01] MEDS: ASPIRIN 81 MG ECTAB PO SCH (08:31)
[2022-02-01] MEDS: amLODIPine BESYLATE 5 MG TAB PO SCH (08:31)
[2022-02-01] MEDS: FLUTICASONE PROPIONATE NA SPR 16 GM BTL SCH (08:31)
[2022-02-01] MEDS: carvediloL 6.25 MG TAB PO SCH ×2 (08:32→21:22)
[2022-02-01] MEDS: PANTOprazole 40 MG TAB PO SCH (08:32)
[2022-02-01] MEDS: TOPIRAMATE 25 MG TAB PO SCH ×2 (08:32→21:21)
[2022-02-01] MEDS ORDERED: PATIROMER CALCIUM SORBITEX 8.4 GM PACK PO SCH (11:00)
--- NOTE | 2022-02-01 14:13 | Pharmacy Report ---
Pharmacy Glycemic Short Note 2 - Date of Service February 01, 2022 - Glycemic Short BSG Results (Last 24 hours): 01/31/22 01/31/22 01/31/22 16:39 16:40 16:56 Glucose POC Glucose 50 L* 53 L* 69 L* 01/31/22 01/31/22 02/01/22 16:57 20:07 05:43 Glucose 66 L POC Glucose 76 214 H 02/01/22 02/01/22 02/01/22 07:31 07:32 11:30 Glucose POC Glucose 63 L* 72 111 H OUTPATIENT ANTIDIABETIC REGIMEN: * Lantus 20 units SC BID * Humalog 10 units SC TIDM * HbA1c = 6.7% on 01/31/22 ASSESSMENT: 02/01/22: * Patient received 15 units of Lantus on 01/30 at HS and 10 units yesterday AM. BSG dropped to 50 mg/dl yesterday at dinner time. She had received 14 units of bolus Novolog total in the AM (with both breakfast and lunch). * BSG trended up to 214 mg/dl at HS and this was covered with 20 units of Lantus based on scale. * The basal dose at HS caused BSG to drop to 66 mg/dl this AM. * Since there were two episodes of hypoglycemia within 24 hrs, the basal dose this AM was discontinued and HS basal dose reduced. * Novolog parameters were loosened. Background 01/30/22: * 76 yo F admitted to [facility] on 01/30 for hyponatremia * Previous two hospitalizations in the last 6 months reviewed - patient has some hypoglycemic events and inpatient doses of Lantus likely require reduction as compared to home regimen. Current regimen may need to be adjusted down further depending on trend in BSG's * Will initiate weight-based moderate stress Novolog PLAN FOR INPATIENT GLYCEMIC CONTROL: * Basal insulin * Lantus AM dose held. * Lantus HS dose scale 0-15 units based on BSG (15 units for BSG greater than 180 mg/dl) * Bolus insulin: loosened goal range & CF/CR * NovoLog per scale ACHS or Q6hrs while NPO * Goal Range: Low 120 mg/dL - High 160 mg/dL * Correction Factor: 30 mg/dL/unit * Nutritional / Prandial insulin per carb ratio of 1 unit per 10 grams CHO consumed
--- NOTE | 2022-02-01 15:26 | Nephrology Progress Note ---
Date of Service February 01, 2022 Assessment & Plan Admission and Anticipated Discharge Date Admission Date: January 30, 2022 Subjective Subjective S---no new issues. Labs overall getting better PHYSICAL EXAMINATION: GENERAL: Morbidly obese female who is not in any respiratory distress. She is awake, alert, oriented x3, able to give me a detailed account of her medical problem. CHEST: Bilateral clear to auscultation. CARDIOVASCULAR: S1 and S2, regular. ABDOMEN: Soft, nontender, obese. EXTREMITIES: Show trace edema, but this is more lymphedema type than a true fluid overload. LABORATORY TEST: Labs improving. hgb is less than 8 now. ASSESSMENT AND PLAN: A 76-year-old female admitted with abnormal labs showing acute hyperkalemia with a potassium of 6.6, hyponatremia and also acute renal failure with very elevated BUN and creatinine, especially BUN. Hyponatremia Hyperkalemia Andres----All labs seems better with current management. hard to assess fluid status given morbid obesity and lymphedema. rec: 1 Continue bicarb drip till AM. 2 Labs daily. Creat is now down to baseline. BUn still high 3 Hgb is low and dropping--partly from hemodilution. iron level not low. Consider to r/o GI bleed with heme occult stool given low hgb and high BUN Results & Data ([facility]) Vital Signs (Past 12 Hours) Vital Signs Temp Pulse Pulse Resp BP BP Pulse Ox 02/01/22 11:46 36.7 C 64 20 108/66 97 02/01/22 08:00 36.6 C 61 18 138/63 97 02/01/22 07:42 56 L 02/01/22 04:16 36.7 C 63 18 121/54 L 96
--- NOTE | 2022-02-01 16:59 | Hospitalist Progress Note ---
Date of Service February 01, 2022 Assessment & Plan (1) Acute hyponatremia: Plan: Acute kidney injury on CKD III Hyponatremia Mild volume overload Hyperkalemia Hyponatremia Cr:2.6>>2.0>1.57 Potassium 5.3>4.7 Sodium:128>135>139>142 Low potassium diet IV Lasix, fluids as per nephrology Appreciate nephrology input Monitor electrolytes, renal function Lisinopril held IV fluids changed to bicarbonate Monitor renal function Continue current fluids till A.M. Not interested in rehab placement Chronic systolic heart failure CAD Valvular heart disease Mild AR/MS, severe MR Patient was stopped. Poor candidate for surgical intervention given multiple comorbidities Monitor volume status closely Hypertension Continue amlodipine, carvedilol Also on terazosin, isosorbide Lisinopril held due to MAGGIE, hyperkalemia Chronic anemia No obvious source of bleeding Hb stable Normal vitamin B12, folate levels, Normal Serum iron, ferritin Hb drop partly dilutional due to IV fluids Fecal occult pending DM II HbA1C:6.29 October 2021 Continue insulin Monitor BGs DVT Px: Heparin SQ Code Status Full code Disposition Not interested in rehab facility Home with home health Admission and Anticipated Discharge Date Admission Date: January 30, 2022 Subjective Patient is seen and examined at bedside Renal function improving Continues to have chronic shoulder pain Hypokalemia resolved Refuses rehab placement Denies any chest pain, shortness of breath, dizziness, nausea, abdominal pain Review of Systems Review of Systems: All systems reviewed & are unremarkable except as noted in Subjective Physical Exam Physical Exam: Physical Exam: Vitals signs as noted above General Appearance:Morbidly Obese, No apparent distress Head: normocephalic, Atraumatic Eyes: normal inspection, EOMI Neck: supple, Trachea midline Respiratory/Chest: Normal breath sounds, CTA, No accessory muscle use Cardiovascular: S1, S2, + murmur Abdomen/GI:Soft, Non tender, Bowel sounds present Extremities/Musculoskeletal:normal inspection, +Lymphedema, B/L LE edema Neurologic/Psych:AAOX3, grossly no focal neurological deficits Skin: normal color, warm Results & Data Results & Data ([facility]) Vital Signs (Past 12 Hours) Vital Signs Temp Pulse Pulse Resp BP Pulse Ox 02/01/22 16:07 70 02/01/22 15:27 36.7 C 68 20 122/58 L 98 02/01/22 11:46 36.7 C 64 20 108/66 97 02/01/22 08:00 36.6 C 61 18 138/63 97 02/01/22 07:42 56 L Laboratory Results Short CBC 02/01/22 Range/Units 05:43 Hgb 7.5 L (12.0-16.0) g/dL Hct 22.8 L (37-47) % BMP 02/01/22 05:43 Sodium 142 Potassium 4.7 Chloride 108 H Carbon Dioxide 27 BUN 75 H D Creatinine 1.57 H D Glucose 66 L Calcium 8.3 L
[2022-02-01] MEDS ORDERED: INSULIN GLARGINE SOLOSTAR 100 UNITS/ML 3 ML PEN SC SCH (21:00)
[2022-02-01] MEDS: TERAZOSIN HCL 1 MG CAP PO SCH (21:20)
[2022-02-01] MEDS: oxyCODONE HCL IR 5 MG TAB (IMMEDIATE RELEASE) PO PRN (21:35)
[2022-02-02] MEDS: oxyCODONE HCL IR 5 MG TAB (IMMEDIATE RELEASE) PO PRN (05:39)
[2022-02-02] MEDS: HEPARIN SOD 5,000 UNIT/0.5 ML VIAL SQ SCH ×2 (05:40→13:56)
[2022-02-02 07:36] LABS: Hematocrit (blood only) 25.8 % (37-47); Hemoglobin 8.4 g/dL (12.0-16.0)
[2022-02-02 07:56] LABS: Calcium 8.5 mg/dl (8.5-10.1); Creatinine Clr Calc Pharmacy 37.6 ml/min; Est GFR (African American) 43.3 ml/min; Est GFR (Non-African American) 37.4 ml/min; Potassium 4.2 mmol/L (3.5-5.1)
[2022-02-02] MEDS: INSULIN ASPART PER UNIT SC SCH ×2 (08:49→12:44)
--- NOTE | 2022-02-02 08:53 | Nephrology Progress Note ---
Date of Service February 02, 2022 Assessment & Plan Admission and Anticipated Discharge Date Admission Date: January 30, 2022 Subjective Subjective S---no new issues. Labs overall getting better PHYSICAL EXAMINATION: GENERAL: Morbidly obese female who is not in any respiratory distress. She is awake, alert, oriented x3, able to give me a detailed account of her medical problem. CHEST: Bilateral clear to auscultation. CARDIOVASCULAR: S1 and S2, regular. ABDOMEN: Soft, nontender, obese. EXTREMITIES: Show trace edema, but this is more lymphedema type than a true fluid overload. LABORATORY TEST: Labs improving. hgb is 8+ now. ASSESSMENT AND PLAN: A 76-year-old female admitted with abnormal labs showing acute hyperkalemia with a potassium of 6.6, hyponatremia and also acute renal failure with very elevated BUN and creatinine, especially BUN. Hyponatremia Hyperkalemia Andres----All labs seems better with current management. hard to assess fluid status given morbid obesity and lymphedema. rec: 1 Stop bicarb drip t 2 Labs daily. Creat is now down to baseline. na now normal. 3 Hgb is low and dropping--partly from hemodilution. iron level not low. Consider to r/o GI bleed with heme occult stool given low hgb and high BUN. Hgb is in the 8 today so better. 4 For discharge lasix 40 daily. I dont think that her edema is true fluid retention--significant part is lymphedemaa/Obesity. Do not restart Lisinopril. Her high K issue seems quite significant --needed few lasix , patiromer, bicarb drip and Low K diet in hospital to bring it down. 5 f/u nephrology in 1-2 weeks with renal panel and CBC Results & Data ([facility]) Vital Signs (Past 12 Hours) Vital Signs Temp Pulse Pulse Pulse Resp BP BP 02/02/22 08:00 36.4 C L 55 L 14 149/73 H 02/02/22 07:21 63 02/02/22 04:15 36.6 C 64 18 150/63 H 02/02/22 00:00 65 02/01/22 23:41 36.8 C 63 18 136/64 Pulse Ox 02/02/22 08:00 96 02/02/22 07:21 02/02/22 04:15 98 02/02/22 00:00 02/01/22 23:41 98
[2022-02-02] MEDS: LACTOBACILLUS ACIDOPHILUS 1 GM PACK PO SCH ×2 (08:54→12:45)
[2022-02-02] MEDS: ISOSORBIDE MONO EXTENDED REL 60 MG TABCR PO SCH (08:54)
[2022-02-02] MEDS: FAMOTIDINE 20 MG TAB PO SCH (08:55)
[2022-02-02] MEDS: carvediloL 6.25 MG TAB PO SCH (08:55)
[2022-02-02] MEDS: GABAPENTIN 100 MG CAP PO SCH ×2 (08:55→13:56)
[2022-02-02] MEDS: TOPIRAMATE 25 MG TAB PO SCH (08:56)
[2022-02-02] MEDS: SENNA 8.6 MG TAB PO SCH (08:56)
[2022-02-02] MEDS: amLODIPine BESYLATE 5 MG TAB PO SCH (08:56)
[2022-02-02] MEDS: PANTOprazole 40 MG TAB PO SCH (08:56)
[2022-02-02] MEDS: ASPIRIN 81 MG ECTAB PO SCH (08:56)
[2022-02-02] MEDS: FLUTICASONE PROPIONATE NA SPR 16 GM BTL SCH (08:57)
--- NOTE | 2022-02-02 09:47 | Pharmacy Report ---
Pharmacy Glycemic Short Note 2 - Date of Service February 02, 2022 - Glycemic Short BSG Results (Last 24 hours): 02/01/22 02/01/22 02/01/22 11:30 16:36 20:15 Glucose POC Glucose 111 H 197 H 175 H 02/02/22 02/02/22 07:06 07:33 Glucose 80 POC Glucose 99 OUTPATIENT ANTIDIABETIC REGIMEN: * Lantus 20 units SC BID * Humalog 10 units SC TIDM * HbA1c = 6.7% on 01/31/22 ASSESSMENT: 02/02/22: * Patient received 10 units basal yesterday (30 units two previous days when experiencing hypoglycemia), fasting 99mg/dl, continue basal * Blood sugars mostly at goal, except one prior to dinner, 195mg/dl - if this trend continues, tighten CR * No changes at this time 02/01/22: * Patient received 15 units of Lantus on 01/30 at HS and 10 units yesterday AM. BSG dropped to 50 mg/dl yesterday at dinner time. She had received 14 units of bolus Novolog total in the AM (with both breakfast and lunch). * BSG trended up to 214 mg/dl at HS and this was covered with 20 units of Lantus based on scale. * The basal dose at HS caused BSG to drop to 66 mg/dl this AM. * Since there were two episodes of hypoglycemia within 24 hrs, the basal dose this AM was discontinued and HS basal dose reduced. * Novolog parameters were loosened. Background 01/30/22: * 76 yo F admitted to [facility] on 01/30 for hyponatremia * Previous two hospitalizations in the last 6 months reviewed - patient has some hypoglycemic events and inpatient doses of Lantus likely require reduction as compared to home regimen. Current regimen may need to be adjusted down further depending on trend in BSG's * Will initiate weight-based moderate stress Novolog PLAN FOR INPATIENT GLYCEMIC CONTROL: * Basal insulin * Lantus HS dose scale 0-15 units based on BSG (15 units for BSG greater than 180 mg/dl) * Bolus insulin * NovoLog per scale ACHS or Q6hrs while NPO * Goal Range: Low 120 mg/dL - High 160 mg/dL * Correction Factor: 30 mg/dL/unit * Nutritional / Prandial insulin per carb ratio of 1 unit per 10 grams CHO consumed
--- NOTE | 2022-02-02 13:48 | Hospitalist Progress Note ---
Date of Service February 02, 2022 Assessment & Plan (1) Acute hyponatremia: Plan: Acute kidney injury on CKD III Hyponatremia Mild volume overload Hyperkalemia Hyponatremia Cr:2.6>>2.0>1.57>1.37 Potassium 5.3>4.7>4.2 Sodium:128>135>139 Low potassium diet IV Lasix, fluids as per nephrology Appreciate nephrology input Monitor electrolytes, renal function Lisinopril held Monitor renal function DC IV bicarbonate Not interested in rehab placement Plan to discharge on Lasix 40mg daily Needs follow up with Nephrology in 1-2 weeks Chronic systolic heart failure CAD Valvular heart disease Mild AR/MS, severe MR Patient was stopped. Poor candidate for surgical intervention given multiple comorbidities Monitor volume status closely Hypertension Continue amlodipine, carvedilol Also on terazosin, isosorbide Lisinopril will be discontinued upon discharge as well as recommended by Nephro Chronic anemia No obvious source of bleeding Hb stable Normal vitamin B12, folate levels, Normal Serum iron, ferritin Hb drop partly dilutional due to IV fluids Hb better DM II HbA1C:6.29 October 2021 Continue insulin Monitor BGs DVT Px: Heparin SQ Code Status Full code Disposition Not interested in rehab facility Home with home health Admission and Anticipated Discharge Date Admission Date: January 30, 2022 Subjective Patient is seen and examined at bedside Doing well today No other complaints Chronic shoulder pain Denies any chest pain, shortness of breath, dizziness, nausea, abdominal pain Renal function much improved Review of Systems Review of Systems: All systems reviewed & are unremarkable except as noted in Subjective Physical Exam Physical Exam: Physical Exam: Vitals signs as noted above General Appearance:Morbidly Obese, No apparent distress Head: normocephalic, Atraumatic Eyes: normal inspection, EOMI Neck: supple, Trachea midline Respiratory/Chest: Normal breath sounds, CTA, No accessory muscle use Cardiovascular: S1, S2, + murmur Abdomen/GI:Soft, Non tender, Bowel sounds present Extremities/Musculoskeletal:normal inspection, +Lymphedema, B/L LE edema Neurologic/Psych:AAOX3, grossly no focal neurological deficits Skin: normal color, warm Results & Data Results & Data ([facility]) Vital Signs (Past 12 Hours) Vital Signs Temp Pulse Pulse Pulse Resp BP BP 02/02/22 10:00 02/02/22 08:00 36.4 C L 55 L 14 149/73 H 02/02/22 07:21 63 02/02/22 04:15 36.6 C 64 18 150/63 H Pulse Ox Pulse Ox 02/02/22 10:00 95 02/02/22 08:00 96 02/02/22 07:21 02/02/22 04:15 98 Laboratory Results Short CBC 02/02/22 Range/Units 07:06 Hgb 8.4 L (12.0-16.0) g/dL Hct 25.8 L (37-47) % BMP 02/02/22 07:06 Sodium 139 Potassium 4.2 Chloride 103 Carbon Dioxide 30 BUN 52 H D Creatinine 1.37 H Glucose 80 Calcium 8.5
--- NOTE | 2022-02-02 14:10 | Discharge Summary ---
Date of Service February 02, 2022 Admission HPI Per Admitting Provider History obtained from patient and records. Medical history significant for chronic systolic heart failure (EF of 40-45% TTE 2021), CAD as per records, valvular heart disease (mild AR/MS, severe MR), hypertension, DM2 insulin-requiring, CRI (baseline creatinine 1.7-2), chronic anemia (baseline hemoglobin of 9-10), recurrent UTIs, anxiety/mood disorder, chronic pain, bilateral lymphedema Last confinement 2 weeks ago for metabolic encephalopathy attributed to mastoiditis patient discharged on antibiotic Rx. Some documentation of confusion regarding medications from outpatient supportive employment case manager notes. Patient seen at collection systems foreman's office on follow-up visit yesterday. Leg edema complaints as per note. Patient taking extra diuretic Rx as per recommendation for perceived increased leg swelling. Patient denies chest pain, SOB. No OTC NSAID intake. Finishing antibiotic Rx for ear infection. Outpatient labs requested by Nephrology provider yesterday noted to have abnormal results. Serum potassium 6.6, serum sodium 128 serum creatinine 2.8 Patient directed to ER for further evaluation by outpatient provider. NSS, bicarb, and calcium chloride administered at the ER for hyperkalemia MEDICAL HISTORY: As above. SURGERIES: Hernia repair, , hysterectomy, cholecystectomy. FAMILY HISTORY: Heart disease. [place]'s chorea PERSONAL AND SOCIAL HISTORY: Nonsmoker. No chronic intake of alcoholic beverages. Lives with sisters. Admission Exam Per Admitting Provider Physical Exam Physical Exam: General: no distress, obese Head: normocephalic, atraumatic Eyes: PERRL, EOM's intact, conjunctiva non-injected, anicteric ENT: normal inspection external ears, nose, mucous membranes dry Neck: supple, trachea midline Lungs: clear, no respiratory distress, no wheezing/rhonchi/rales CV: RRR, no murmur, trace pretibial edema Abd: normal BS, soft, no apparent tenderness to palpations Ext: no cyanosis, no calf tenderness Neuro: Pt awake. oriented to self only. Answers all questions with reciting her full name. no focal deficits noted Skin: warm, dry Principal Diagnosis Acute kidney injury Hyperkalemia Hyponatremia Discharge Data Allergies Allergy/AdvReac Type Severity Reaction Status Date / Time loratadine Allergy Intermediate MOUTH Verified 01/30/22 06:26 SWELLING diphenhydramine AdvReac Intermediate GMG-SHAKING Verified 01/30/22 06:26 [From Benadryl] & SWEATING metformin AdvReac Intermediate causes Verified 01/30/22 06:26 kidney problems Sulfa (Sulfonamide AdvReac Intermediate Unknown Verified 01/30/22 06:26 Antibiotics) sulfamethoxazole AdvReac Intermediate GMG-RENAL Verified 01/30/22 06:26 COMPLICATIONS trimethoprim AdvReac Intermediate GMG-RENAL Verified 01/30/22 06:26 COMPLICATIONS [id number] Reductase AdvReac Mild Gastrointestinal Verified 01/30/22 06:26 Inhibitor Upset [[place]-Jac-Mkr Reductase Inhibitor] Consultations 01/30/22 05:28 ED Decision to Admit Stat 01/30/22 09:54 Consult Nephrology Routine Hospital Course (1) Acute hyponatremia: Acute kidney injury on CKD III Hyponatremia Mild volume overload Hyperkalemia Hyponatremia Cr:2.6>>2.0>1.57>1.37 Potassium 5.3>4.7>4.2 Sodium:128>135>139 Low potassium diet IV Lasix, fluids as per nephrology Appreciate nephrology input Monitor electrolytes, renal function Lisinopril held Monitor renal function DC IV bicarbonate Not interested in rehab placement Plan to discharge on Lasix 40mg daily Needs follow up with Nephrology in 1-2 weeks Chronic systolic heart failure CAD Valvular heart disease Mild AR/MS, severe MR Patient was stopped. Poor candidate for surgical intervention given multiple comorbidities Monitor volume status closely Hypertension Continue amlodipine, carvedilol Also on terazosin, isosorbide Lisinopril will be discontinued upon discharge as well as recommended by Nephro Chronic anemia No obvious source of bleeding Hb stable Normal vitamin B12, folate levels, Normal Serum iron, ferritin Hb drop partly dilutional due to IV fluids Hb better DM II HbA1C:6.29 October 2021 Continue insulin Monitor BGs DVT Px: Heparin SQ Code Status Full code Disposition Not interested in rehab facility Home with home health Total Time Total Time Spent Total Time Spent (In Minutes): 50 minutes Discharge Plan Discharge Items Patient Disposition: Home - Home Health Services Reason For Visit: hyponatremia, arf ckd Discharge Diagnosis: Acute kidney injury Hyperkalemia Hyponatremia Activity: Resume your previous activity Exercise/Sports: Gradually increase as tolerated Non-emergency contact: Primary Care Provider and Build Automation Engineer Call non-emergency contact if: you have any medication questions, your symptoms worsen, your pain is concerning for you and you have a fever Follow-up/Referrals: Eric Bullock, [Primary Care Provider] - Diet: Carb Consistent or DM2 and Heart Healthy Addtl Attending Provider Instructions: Follow-up with your primary care physician Dr. Eric Bullock in 1 week. Please call for appointment Follow-up with your collection systems foreman in 1-2 weeks. Please call for appointment Seek immediate medical attention if your symptoms reoccur or worsen Please take all medications as instructed on discharge list below. Please call if you have any questions or problems. You can reach a [facility] hospitalist on duty at [facility] 24 hours a day by calling [phone] Medication Changes ----Your Lasix is changed to 40mg daily ---Your Lisinopril is discontinued Pending Studies at Discharge: No Stand-Alone Forms: My [facility], Smoking Cessation Medications and DC Order Prescriptions: Continued isosorbide mononitrate 120 mg tablet extended release 24 hr 120 mg PO QAM RF: 0 polyethylene glycol 3350 [Miralax] 17 gram/dose Powder 17 g PO QAM PRN (Reason: Constipation) RF: 0 topiramate 25 mg tablet 25 mg PO AMPM RF: 0 terazosin 1 mg capsule 1 mg PO HS RF: 0 pantoprazole 40 mg tablet,delayed release (DR/EC) 40 mg PO QAM RF: 0 gabapentin 300 mg capsule 300 mg PO TID RF: 0 sertraline 50 mg tablet 50 mg PO QAM RF: 0 insulin glargine [Lantus Solostar U-100 Insulin] 100 unit/mL (3 mL) insulin pen 20 unit subcut BID RF: 0 baclofen 10 mg tablet 5 mg PO BID PRN (Reason: Pain) RF: 0 diclofenac sodium 1 % gel 1 ea TOPICAL BID PRN (Reason: Pain) RF: 0 nystatin 100,000 unit/gram Powder 1 applic TOPICAL TID PRN (Reason: Skin Irritation) RF: 0 ondansetron HCl 4 mg tablet 4 mg PO Q6 PRN (Reason: Nausea) RF: 0 amoxicillin-pot clavulanate 875-125 mg tablet 1 tab PO Q12H Qty: 20 RF: 0 silver sulfadiazine 1 % cream 1 applic TOPICAL DAILY RF: 0 clonazepam 1 mg tablet 1 mg PO HS RF: 0 Lactinex 1 million cell Tablet,Chewable 1 tab PO TIDM RF: 0 carvedilol 6.25 mg tablet 6.25 mg PO BID RF: 0 sennosides [Senokot] 8.6 mg Tablet 8.6 mg PO DAILY RF: 0 zinc oxide Ointment 1 applic TOPICAL DIRECTED PRN (Reason: Dry Skin) RF: 0 fenofibrate nanocrystallized [Tricor] 145 mg Tablet 145 mg PO DAILY RF: 0 cholecalciferol (vitamin D3) 25 mcg (1,000 unit) Tablet 25 mcg PO DAILY RF: 0 aspirin 81 mg Tablet,Delayed Release (Dr/Ec) 81 mg PO QAM RF: 0 hydralazine 50 mg tablet 50 mg PO TID RF: 0 famotidine 20 mg tablet 20 mg PO QAM RF: 0 amlodipine 10 mg tablet 10 mg PO QAM RF: 0 fluticasone propionate 50 mcg/actuation spray,suspension 2 spray INTRANASAL QAM RF: 0 insulin lispro [Humalog KwikPen Insulin] 100 unit/mL insulin pen 10 unit SUBCUT TIDM RF: 0 nitroglycerin [Nitrostat] 0.4 mg Tablet, Sublingual 0.4 mg sublingual UD PRN (Reason: Chest Pain) RF: 0 oxycodone-acetaminophen 5-325 mg tablet 1 tab PO Q8H PRN (Reason: Pain) RF: 0 Changed furosemide 40 mg tablet 40 mg PO DAILY Qty: 0 RF: 0 Discontinued lisinopril 10 mg Tablet 10 mg PO QAM Qty: 30 RF: 0 Discharge Orders: Discharge Order (Routine); Ordered 02/02/22 Ordered By: Brian Desai Admission Data Admit Date/Time: 01/30/22 06:45 Attending Provider: Brian Desai Admit Provider: Zaid Felipe Primary Care Provider: Eric Bullock Other Providers: Zaid Felipe ; Leonor Hicks ; Jamal Toledo ; Talita Powers ; Alexys Elloitt ; Stew Linn
== END 2022-02-02 14:40 | disposition home health service (06) | DRG 683 ==
LOC: ED 03:28 → 1E 06:45 → 2W 18:09